=== PATIENT | female | born 1960 | race Caucasian/White ===

== ENCOUNTER 2022-09-11 16:37 | Outpatient (CLI) | payer OTHER, SELFPAY ==
--- NOTE | ~2022-09-11 | MM_ITS ---
EXAMINATION: MM scrn dwain implant BI w mansi HISTORY: Screening mammogram TECHNIQUE: Craniocaudal and mediolateral oblique 3-D tomosynthesis images with implant displacement a nd synthetic 2-D images were generated. Craniocaudal and mediolateral oblique views of the breasts wi thout implant displacement were obtained using full field digital mammography. CAD analysis was submi tted and interpreted. COMPARISON: No prior mammogram is available for comparison at this institution. BREAST PARENCHYMAL COMPOSITION: There are scattered areas of fibroglandular density. FINDINGS: In the right breast there is a circumscribed mass in the lower inner quadrant of the right breast measuring 4 mm, posterior third. In the left breast there are focal asymmetries with associate d clustered indeterminate calcifications in the upper inner quadrant, middle third. IMPRESSION: 1. Bilateral abnormalities described above. Including mass in the lower inner quadrant of the right b reast and asymmetry/calcifications upper inner quadrant of the left breast. 2. Recommend comparison to previous outside mammograms. BI-RADS CATEGORY 0 - INCOMPLETE STUDY, NEED ADDITIONAL IMAGING EVALUATION. Reviewed, dictated and finalized at location A. ERCIAL PEST CONTROL TECHNICIAN IMPRESSION: 1. Bilateral abnormalities described above. Including mass in the lower inner q uadrant of the right breast and asymmetry/calcifications upper inner quadrant o f the left breast. 2. Recommend comparison to previous outside mammograms. BI-RADS CATEGORY 0 - INCOMPLETE STUDY, NEED ADDITIONAL IMAGING EVALUATION.
== END 2022-09-11 16:38 | disposition home or self-care (01) ==
PROVIDERS: Visit Provider Nurse Practitioner Obstetrics & Gynecology
DX: Z12.31 Encounter for screening mammogram for malignant neoplasm of breast (principal); R92.8 Other abnormal and inconclusive findings on diagnostic imaging of breast
CPT/HCPCS: 77063; 77067

== ENCOUNTER 2022-10-13 11:35 | Outpatient (CLI) | payer OTHER, SELFPAY ==
--- NOTE | ~2022-10-13 | MM_ITS ---
EXAMINATION: MM diagnostic dwain BI w mansi HISTORY: Right breast mass and indeterminate left breast calcifications on screening mammogram TECHNIQUE: Additional 3-D tomosynthesis images of the breasts were performed and synthetic 2-D images were generated. CAD analysis was submitted and interpreted. COMPARISON: 09/11/2022, 06/01/2018 FINDINGS: With magnification, left breast calcifications appear to be associated with coil cyst. Spot compression demonstrates a 4 mm mass of the lower inner left breast to be stable when compared to pr ior examinations. There has been no suspicious interval change. IMPRESSION: 1. No mammographic evidence of malignancy. 2. Recommend routine screening mammography in one year. BI-RADS Category 2: Benign finding(s). Reviewed, dictated and finalized at location A. [employer]
== END 2022-10-13 11:36 | disposition home or self-care (01) ==
LOC: ANHIMG 11:36
PROVIDERS: Visit Provider Nurse Practitioner Obstetrics & Gynecology
DX: R92.8 Other abnormal and inconclusive findings on diagnostic imaging of breast (principal)
CPT/HCPCS: 77062; 77066; G0279

== ENCOUNTER 2023-04-16 19:18 | Emergency (ER) | payer OTHER, SELFPAY ==
--- NOTE | ~2023-04-16 | CT_ITS ---
EXAMINATION: CT abdomen pelvis w con DATE: 04/16/2023 20:33 INDICATION: Abdominal bloating. TECHNIQUE: Computed tomography (CT) of the abdomen and pelvis was performed with 100 mL Omnipaque 350 intravenous contrast. Automated exposure control and iterative reconstruction technique were employe d. The dose-length product was 258.56 mGy-cm. COMPARISON: None. FINDINGS: The visualized portions of the lung bases emphysema. No pleural effusion. The heart size is normal. No pericardial effusion. The liver, spleen, gallbladder, pancreas, adrenal glands, and right kidney are normal. There are cysts in left kidney measuring up to 13 mm. There are no dilated loops of bowel. The appendix is normal. There is a large volume of ascites with peritoneal thickening and n odularity. There is a 11.6 cm solid and cystic mass in right ovary. There is wall thickening of the b benedict of the stomach. There is a 2.2 x 1.6 cm right inguinal lymph node. There is mild right external i liac lymphadenopathy. There is moderate lumbar spondylosis and mild thoracic spondylosis. IMPRESSION: 1. Peritoneal carcinomatosis with large volume of ascites. 2. 11.6 cm mass of right ovary, which may be a primary malignancy or less likely metastatic disease. 3. Wall thickening of the body of the stomach, which may be serosal metastatic disease or less likely the primary malignancy. 4. Mild right inguinal and external iliac lymphadenopathy. Reviewed, dictated and finalized at location E. IMPRESSION: 1. Peritoneal carcinomatosis with large volume of ascites. 2. 11.6 cm mass of right ovary, which may be a primary malignancy or less likel y metastatic disease. 3. Wall thickening of the body of the stomach, which may be serosal metastatic disease or less likely the primary malignancy. 4. Mild right inguinal and external iliac lymphadenopathy.
[2023-04-16 19:23] VITALS: BP 138/72; PULSE 78; RESP 18; TEMP 37; O2SAT 98
[2023-04-16] MEDS: SODIUM CHLORIDE 0.9% IV 500 ML 999 ML IV CONT (19:25)
[2023-04-16 19:51] LABS: Basophils Absolute Auto 0.04 K/mm3 (0.00-0.10); Basophils Percent Auto 0.5 % (0.0-1.0); Eosinophils Absolute Auto 0.03 K/mm3 (0.02-0.50); Eosinophils Percent Auto 0.3 % (1.0-6.0); Hematocrit 36.7 % (35.0-49.0); Hemoglobin 11.7 g/dL (12.0-15.0); Immature Granulocyte Absolute 0.02 K/mm3 (0.00-0.00); Immature Granulocyte Percent A 0.2 % (0.0-0.0); Lymphocytes Absolute Auto 1.58 K/mm3 (1.10-4.50); Lymphocytes Percent Auto 18.3 % (18.0-42.0); Mean Corpuscular HGB Conc 31.9 g/dL (32.0-36.0); Mean Corpuscular Volume 87.8 fL (78.0-102.0); Mean Platelet Volume 10.5 fl (9.2-11.8); Monocytes Absolute Auto 0.81 K/mm3 (0.10-0.90); Monocytes Percent Auto 9.4 % (2.0-11.0); Neutrophils Absolute Auto 6.2 K/mm3 (1.7-7.2); Neutrophils Percent Auto 71.3 % (50.0-70.0); Platelet Count Result 440 K/mm3 (150-420); Red Blood Count 4.18 M/mm3 (4.20-5.40); Red Cell Distribution Width 13.7 % (11.6-14.4); White Blood Count 8.6 K/mm3 (4.8-10.8)
[2023-04-16 20:14] LABS: Alanine Aminotransferase 12 U/L (14-59); Albumin Level 2.4 g/dL (3.4-5.0); Alkaline Phosphatase 125 U/L (46-116); Anion Gap 8 mmol/L (8-16); Aspartate Amino Transferase 28 U/L (15-37); Bilirubin,Total 0.5 mg/dL (0.00-1.00); Blood Urea Nitrogen 5 mg/dL (7-18); Calcium 8.4 mg/dL (8.5-10.1); Carbon Dioxide 30 mmol/L (21-32); Chloride 101 mmol/L (98-108); Estimated CRCL calculation 54 ml/min; Estimated Glomerular Filt Rate > 60; Glucose 102 mg/dL (70-99); Osmolality Calculated 285 mOsm/kg (285-295); Potassium 3.7 mmol/L (3.5-5.1); Sodium 139 mmol/L (136-145); Total Protein 6.9 g/dL (6.4-8.2)
[2023-04-16 20:23] LABS: Appearance Urine Clear (Clear); Bilirubin Urine Negative (Negative); Blood Urine Trace-Intact (Negative); Color Urine Light Yellow (Yellow); Glucose Urine UA Negative (Negative); Ketones Urine Negative (Negative); Leukocyte Esterase Ur Negative LEU/UL (Negative); Nitrate Urine Negative (Negative); Protein Urine Negative (Negative); Specific Grav Ur <= 1.005 (1.010-1.020); Urobilinogen Urine 0.2 mg/dL (0.2-1.0)
[2023-04-16 20:28] LABS: Add Urine Microscopic? YES; Bacteria Urine None seen /hpf; RBC Urine 0-2 /hpf (0-2); Squamous Epithelial Cell Urine Occasional /hpf (Few); WBC Urine 0-3 /hpf (0-3)
--- NOTE | 2023-04-16 21:04 | ED.ABDPAIN ---
HPI - Abdominal Pain General Chief Complaint: Abdominal Pain Stated Complaint: abd pain Time Seen by Provider: 04/16/23 19:20 Source: patient Mode of arrival: ambulatory Limitations: no limitations History of Present Illness HPI narrative: this is a 62-year-old female that presents with some abdominal bloating mild nausea with no abdominal pain symptoms have progressed over the last 3 to 4 weeks. The patient has no family history of ovarian cancer, is a smoker with some social alcohol use with no significant past medical history, there is currently no vomiting, has been complaining of loose stools but no diarrhea or constipation no dysuria, no flank pain. MD elicited complaint: other ( abdominal bloating) Pertinent past history: none Onset (ago): week(s) Related Data Home Medications Medication Instructions Recorded Confirmed albuterol sulfate 90 mcg/actuation 2 inh inhalation Q6H PRN 02/04/23 02/04/23 breath activated powder inhaler atorvastatin 20 mg tablet 20 mg PO DAILY 02/04/23 02/04/23 cetirizine 10 mg capsule (Zyrtec) 10 mg PO DAILY PRN 02/04/23 02/04/23 fluticasone propionate 50 1 - 2 spray intranasal BID 02/04/23 02/04/23 mcg/actuation nasal spray,suspension (Flonase Allergy Relief) lactobacillus combination no.9 4 4,000 mmu cells PO DAILY 02/04/23 02/04/23 billion cell capsule (Adult 50 Plus Probiotic) omega 5-fvm-jbm-fish oil 100 cap PO 02/04/23 02/04/23 mg-160 mg-1,000 mg capsule (Fish Oil) Allergies Allergy/AdvReac Type Severity Reaction Status Date / Time ciprofloxacin [From Cipro] AdvReac Hives Verified 04/16/23 19:30 penicillin V [From Pen-Vee K] AdvReac Hives Verified 04/16/23 19:30 Review of Systems Review of Systems: All systems reviewed & are unremarkable except as noted in HPI and below PMFSH Past Medical History Medical History Asthma Hyperlipidemia Family History Family History Sibling Asthma Father Cancer Heart disease Mother Cerebrovascular accident Social History Social History Smoking status: Never smoker Tobacco type: cigarettes Alcohol intake: current Lack of Transportation: No Lack of Food: Never True Current Housing: I Have Housing Concerned About Future Housing: No Difficulty Paying Gas/Electric Bills: No Difficulty Paying for Meds: No Currently Unemployed: No Education: Bachelor's Degree Difficulty w/ Childcare or Family Care: No Exam Const: General: no acute distress Nutritional Appearance: well nourished and thin Limitations: no limitations Eyes: Conjunctivae: conjunctivae normal Neck: Neck: normal visual inspection Chest: Chest palpation & inspection: normal inspection of the chest Resp: Effort & Inspection: normal respiratory effort Auscultation: clear to auscultation bilaterally Cardio: Rate: regular rate Rhythm: regular rhythm GI: GI Palp: Yes Soft to palpation and Yes Guarding due to palpation present (GI) Auscultation: normal bowel sounds : General: Yes bladder normal to palpation Urinary Catheter: Urinary Catheter: patent and draining Skin: General skin exam: normal color Neuro: General: patient oriented x3 and moves all extremities Psych: Mental Status: mental status grossly normal Affect: normal affect Course Course Emergency Course: Labs performed and reviewed with patient, patient had a CT scan and CT scanned reviewed with patient and advise follow-up with Primary/ iuss acoustic analyst soon as possible for further evaluation. Vital Signs Vital signs: Vital Signs Temperature 37.0 C 04/16/23 19:23 Pulse Rate 78 04/16/23 19:23 Respiratory Rate 18 04/16/23 19:23 Blood Pressure 138/72 04/16/23 19:23 Pulse Oximetry 98 04/16/23 19:23 Oxygen Delivery Room Air 04/16/23 19:23 Temperature 37.0 C
[2023-04-16 21:11] VITALS: BP 140/88; PULSE 90; RESP 20; TEMP 36.6; O2SAT 95
== END 2023-04-16 21:18 | disposition home or self-care (01) ==
PROVIDERS: Emergency Provider Emergency Medicine
DX: D39.10 Neoplasm of uncertain behavior of unspecified ovary (principal); R14.0 Abdominal distension (gaseous); E78.5 Hyperlipidemia, unspecified; J45.909 Unspecified asthma, uncomplicated
CPT/HCPCS: 36415; 74177; 80053; 81001; 85025; 96360; 99284; J7040; Q9967

== ENCOUNTER 2023-04-24 15:57 | Emergency (ER) | payer OTHER, SELFPAY ==
[2023-04-24 15:59] VITALS: BP 120/54; PULSE 105; RESP 17; TEMP 36.9; O2SAT 97
[2023-04-24 17:32] LABS: Basophils Absolute Auto 0.1 K/mm3 (0.0-0.1); Basophils Percent Auto 0.9 % (0.2-1.2); Eosinophils Absolute Auto 0.1 K/mm3 (0-0.3); Eosinophils Percent Auto 0.7 % (0-4.4); Hematocrit 39.8 % (37.0-47.0); Hemoglobin 12.5 g/dL (12.0-15.0); Immature Granulocyte Absolute 0.03 K/mm3 (0.00-0.031); Immature Granulocyte Percent A 0.3 % (0-0.5); Lymphocytes Absolute Auto 1.83 K/mm3 (0.9-3.2); Lymphocytes Percent Auto 20.8 % (18.3-44.2); Mean Corpuscular HGB Conc 31.4 g/dl (32-36); Mean Corpuscular Hemoglobin 27.1 pg (26-34); Mean Corpuscular Volume 86.1 fl (80-100); Mean Platelet Volume 10.4 fl (7.4-10.4); Monocytes Absolute Auto 0.6 K/mm3 (0.1-0.6); Monocytes Percent Auto 6.6 % (2.6-8.5); Neutrophils Absolute Auto 6.2 K/mm3 (1.3-6.7); Neutrophils Percent Auto 70.7 % (45.5-73.1); Platelet Count Result 563 k/mm3 (150-375); Red Blood Count 4.62 M/mm3 (4.2-5.4); Red Cell Distribution Width 13.7 % (11.5-14.5); White Blood Count 8.8 K/mm3 (4.5-10.0)
[2023-04-24 17:43] LABS: INR 1.1; Prothrombin Time 14.1 Seconds (11.1-14.7)
[2023-04-24 17:44] LABS: Partial Thromboplastin Time 33.5 SECONDS (22.3-36.8)
[2023-04-24 17:44] LABS: Alanine Aminotransferase 18 U/L (6-35); Albumin Level 3.8 g/dL (3.5-5.1); Alkaline Phosphatase 115 U/L (38-126); Anion Gap 3 mmol/L (8-16); Aspartate Amino Transferase 43 U/L (14-36); Bilirubin,Total 0.5 mg/dL (0.2-1.3); Blood Urea Nitrogen 4 mg/dL (7-17); Calcium 8.6 mg/dL (8.4-10.2); Carbon Dioxide 35 mmol/L (22-30); Chloride 97 mmol/L (98-107); Estimated CRCL calculation 68 ml/min; Estimated Glomerular Filt Rate > 60; Glucose 101 mg/dL (65-110); Lipase 156 U/L (23-300); Potassium 3.9 mmol/L (3.4-5.0); Sodium 135 mmol/L (137-145)
--- NOTE | 2023-04-24 18:50 | ED.GENADULT ---
HPI - General Adult General Chief complaint: Unspecified Stated complaint: ascites Time Seen by Provider: 04/24/23 18:07 Source: patient, RN notes reviewed and old records reviewed Mode of arrival: ambulatory Limitations: no limitations History of Present Illness HPI narrative: This is a 62 year old female who presents for evaluation of ascites. PAtient reports 2 weeks ago she developed abdominal bloating and distension. She was evaluated in ER on 04/16/23 and she was found to have large amount of abdominal ascites with right ovarian mass. She had a follow up appointment with DR. Emma escobar in his clinic. She was sent to ER to get paracentesis by radiology. Patient denies abdominal pain, fever, vomiting. She states she does feels uncomfortable sometimes due to abdominal distension. Related Data Home Medications Medication Instructions Recorded Confirmed albuterol sulfate 90 mcg/actuation 2 inh inhalation Q6H PRN 02/04/23 02/04/23 breath activated powder inhaler atorvastatin 20 mg tablet 20 mg PO DAILY 02/04/23 02/04/23 cetirizine 10 mg capsule (Zyrtec) 10 mg PO DAILY PRN 02/04/23 02/04/23 fluticasone propionate 50 1 - 2 spray intranasal BID 02/04/23 02/04/23 mcg/actuation nasal spray,suspension (Flonase Allergy Relief) lactobacillus combination no.9 4 4,000 mmu cells PO DAILY 02/04/23 02/04/23 billion cell capsule (Adult 50 Plus Probiotic) omega 7-htp-yan-fish oil 100 cap PO 02/04/23 02/04/23 mg-160 mg-1,000 mg capsule (Fish Oil) Allergies Allergy/AdvReac Type Severity Reaction Status Date / Time ciprofloxacin [From Cipro] AdvReac Hives Verified 04/16/23 19:30 penicillin V [From Pen-Vee K] AdvReac Hives Verified 04/16/23 19:30 Review of Systems Review of Systems: All systems reviewed & are unremarkable except as noted in HPI and below PMFSH Past Medical History Medical History (Updated 04/24/23 @ 18:59 by Navya Jones MD) Abdominal ascites Asthma Hyperlipidemia Ovarian mass Family History Family History Sibling Asthma Father Cancer Heart disease Mother Cerebrovascular accident Social History Social History Smoking status: Never smoker Tobacco type: cigarettes Alcohol intake: current Lack of Transportation: No Lack of Food: Never True Current Housing: I Have Housing Concerned About Future Housing: No Difficulty Paying Gas/Electric Bills: No Difficulty Paying for Meds: No Currently Unemployed: No Education: Bachelor's Degree Difficulty w/ Childcare or Family Care: No Exam Const: General: cooperative, comfortable, no acute distress and alert Orientation/consciousness: patient oriented x3 Limitations: no limitations HENMT: Head: normal to inspection Face and sinus: normal facial exam Eyes: General: appearance normal, both eyes and all related structures EOM: EOMs intact bilaterally Resp: Effort & Inspection: normal respiratory effort Auscultation: clear to auscultation bilaterally Cardio: Jugular venous distension: no JVD Rate: regular rate Rhythm: regular rhythm GI: GI Palp: Yes Soft to palpation, No Firmness to palpation present (GI), No Tenderness to palpation present (GI), No Guarding due to palpation present (GI) and Yes Ascites present (not tense) Auscultation: normal bowel sounds Back/Spine/Pelvis: Back: no CVA tenderness Skin: General skin exam: normal color Neuro: General: patient oriented x3 Cranial nerves: Yes CN's II-XII intact bilaterally Motor exam (neuro): 5/5 motor strength present throughout Psych: Appearance: grossly normal Mental Status: mental status grossly normal Speech and movement: Normal speech and movement present Course Reevaluation(s) Reevaluation #1: I called radiology and there is no radiologist on site to do paracentesis today. I offered to admit patient over night to get parac
== END 2023-04-24 19:11 | disposition home or self-care (01) ==
PROVIDERS: Emergency Provider General Practice
DX: C80.1 Malignant (primary) neoplasm, unspecified (principal); R18.0 Malignant ascites; N83.9 Noninflammatory disorder of ovary, fallopian tube and broad ligament, unspecified; Z79.51 Long term (current) use of inhaled steroids; J45.909 Unspecified asthma, uncomplicated; E78.5 Hyperlipidemia, unspecified
CPT/HCPCS: 36415; 80053; 83690; 85025; 85610; 85730; 99283

== ENCOUNTER 2023-04-29 09:53 | Outpatient (CLI) | payer OTHER, SELFPAY ==
--- NOTE | ~2023-04-29 | US_ITS ---
EXAMINATION: US paracentesis abd w/image DATE: 04/29/2023 11:08 INDICATION: Malignant ascites TECHNIQUE: The procedure and its risks and benefits were discussed with the patient. Potential risks discussed included bleeding and infection. The skin was prepped and draped in sterile fashion. 1% lid ocaine was used for local anesthesia. Under ultrasound guidance, a 5 Fr catheter with trochar was adv anced into the ascites in the right lower quadrant. Fluid was aspirated into vacuum bottles. The cath eter was removed, and a dressing was applied. There were no immediate complications. FINDINGS: Ultrasound images demonstrate ascites and the catheter within the fluid. IMPRESSION: 1. Successful ultrasound-guided paracentesis yielding 2425 mL of yellow fluid. Reviewed, dictated and finalized at location A.
[2023-04-29 11:54] LABS: Basophils Absolute Auto 0.1 K/mm3 (0.0-0.1); Basophils Percent Auto 0.7 % (0.2-1.2); Eosinophils Percent Auto 0.4 % (0-4.4); Hematocrit 37.4 % (37.0-47.0); Immature Granulocyte Absolute 0.03 K/mm3 (0.00-0.031); Immature Granulocyte Percent A 0.3 % (0-0.5); Lymphocytes Absolute Auto 1.63 K/mm3 (0.9-3.2); Lymphocytes Percent Auto 18.3 % (18.3-44.2); Mean Corpuscular HGB Conc 32.1 g/dl (32-36); Mean Corpuscular Hemoglobin 27.3 pg (26-34); Mean Platelet Volume 10.4 fl (7.4-10.4); Monocytes Absolute Auto 0.5 K/mm3 (0.1-0.6); Monocytes Percent Auto 6.1 % (2.6-8.5); Neutrophils Absolute Auto 6.6 K/mm3 (1.3-6.7); Neutrophils Percent Auto 74.2 % (45.5-73.1); Platelet Count Result 567 k/mm3 (150-375); Red Cell Distribution Width 13.6 % (11.5-14.5); White Blood Count 8.9 K/mm3 (4.5-10.0)
[2023-04-29 12:10] LABS: Alanine Aminotransferase 16 U/L (6-35); Albumin Level 3.6 g/dL (3.5-5.1); Alkaline Phosphatase 115 U/L (38-126); Anion Gap 4 mmol/L (8-16); Aspartate Amino Transferase 39 U/L (14-36); Bilirubin,Total 0.6 mg/dL (0.2-1.3); Blood Urea Nitrogen 4 mg/dL (7-17); Calcium 8.2 mg/dL (8.4-10.2); Carbon Dioxide 32 mmol/L (22-30); Chloride 98 mmol/L (98-107); Estimated Glomerular Filt Rate > 60; Glucose 87 mg/dL (65-110); Potassium 3.8 mmol/L (3.4-5.0); Sodium 134 mmol/L (137-145)
[2023-05-02 01:37] LABS: CA-125 751 U/mL (<35)
[2023-05-03 05:58] LABS: Glucose Peritoneal Fluid 83 mg/dL; LDH Peritoneal Fluid 1562 U/L (<63); Total Protein Peritoneal Fluid 4.9 g/dL
== END 2023-04-29 09:54 | disposition home or self-care (01) ==
PROVIDERS: Visit Provider Internal Medicine Hematology & Oncology
DX: C56.9 Malignant neoplasm of unspecified ovary (principal); R18.0 Malignant ascites
CPT/HCPCS: 36415; 49083; 80053; 82945; 83615; 84157; 85025; 86304; 88104; 88108; 88305; 88342

== ENCOUNTER 2023-05-01 10:46 | Outpatient (CLI) | payer OTHER, SELFPAY ==
--- NOTE | ~2023-05-01 | CT_ITS ---
Clinical Indication: Ovarian malignancy CT Scan of the Chest with Contrast: Technique: Contiguous sections were acquired throughout the chest after intravenous administration of 75 cc of Omnipaque 350. Dose reduction technique was used on this scan by utilizing automated exposu re control and iterative reconstruction technique. The dose-length product (DLP) was 129.98 mGy-cm. Findings: There is no evidence of any significant mediastinal, hilar or axillary lymphadenopathy. There is no f illing defect in the pulmonary arterial tree to suggest pulmonary embolus. There is no evidence of ao rtic dissection or aneurysm. There is no evidence of pleural or pericardial effusion. The lungs are clear. No pulmonary nodules or infiltrates are noted. Moderate emphysema noted. Images through the upper abdomen reveal ascites and probable peritoneal carcinomatosis. There is diff use fatty infiltration of the liver. Impression: No evidence of metastatic disease in the chest. Ascites and peritoneal carcinomatosis seen in the upper abdomen. Please refer to recent CT dated 2022 for further details. Moderate emphysema. Diffuse fatty infiltration of liver. Reviewed, dictated and finalized at location M. Impression: No evidence of metastatic disease in the chest. Ascites and peritoneal carcinomatosis seen in the upper abdomen. Please refer t o recent CT dated 04/16/2023 for further details. Moderate emphysema. Diffuse fatty infiltration of liver.
== END 2023-05-01 10:47 | disposition home or self-care (01) ==
PROVIDERS: Visit Provider Internal Medicine Hematology & Oncology
DX: C56.9 Malignant neoplasm of unspecified ovary (principal); J43.9 Emphysema, unspecified
CPT/HCPCS: 71260; Q9967

== ENCOUNTER 2023-05-06 08:58 | Outpatient (CLI) | payer OTHER, SELFPAY ==
--- NOTE | ~2023-05-06 | US_ITS ---
EXAMINATION: US biopsy lymph node DATE: 05/06/2023 10:10 INDICATION: Right inguinal lymphadenopathy TECHNIQUE: The procedure including the risks and benefits was discussed with the patient. Risks discu ssed included bleeding and infection. The patient understood the risks and agreed to proceed. The sk in overlying the right inguinal region was prepped and draped in usual sterile fashion. Anesthetic w as administered with 1% lidocaine subcutaneously. An 14 gauge core biopsy needle was advanced under continuous ultrasound observation to the lesion of interest. 2 core biopsy specimens were obtained. The needle was removed and the entry site was cleaned and dressed. Post procedure ultrasound demons trated no hemorrhage. FINDINGS: Ultrasound images demonstrate the biopsy needle advanced into a 2.6 x 1.7 x 1.5 cm hypoecho ic lymph node at the region of concern.. IMPRESSION: 1. Successful Ultrasound-guided biopsy of the 2.6 cm right inguinal lymph node of concern. Reviewed, dictated and finalized at location A.
== END 2023-05-06 08:59 | disposition home or self-care (01) ==
PROVIDERS: Visit Provider Internal Medicine Hematology & Oncology
DX: R59.1 Generalized enlarged lymph nodes (principal)
CPT/HCPCS: 38505; 76942; 88305; 88342

== ENCOUNTER 2023-05-19 09:06 | Outpatient (CLI) | payer OTHER, SELFPAY ==
--- NOTE | ~2023-05-19 | US_ITS ---
EXAMINATION: US paracentesis abd w/image DATE: 05/19/2023 10:00 INDICATION: Ascites. Malignant neoplasm of ovary. TECHNIQUE: The procedure and its risks, benefits, and alternatives were discussed with the patient. P otential risks discussed included bleeding and infection. The skin was prepped and draped in sterile fashion. 1% lidocaine was used for local anesthesia. Under ultrasound guidance, a 5 Fr catheter with trochar was advanced into the ascites in the right lower quadrant. Fluid was aspirated. The catheter was removed, and a dressing was applied. There were no immediate complications. FINDINGS: Ultrasound images demonstrate ascites and the catheter within the fluid. IMPRESSION: 1. Successful ultrasound-guided paracentesis yielding 3,400 mL of cloudy, yellow fluid. Reviewed, dictated and finalized at location A. IMPRESSION: 1. Successful ultrasound-guided paracentesis yielding 3,400 mL of cloudy, yell ow fluid.
== END 2023-05-19 09:07 | disposition home or self-care (01) ==
LOC: ANHIMG 09:07
DX: C56.9 Malignant neoplasm of unspecified ovary (principal); R18.0 Malignant ascites
CPT/HCPCS: 49083

== ENCOUNTER 2023-07-21 08:00 | Outpatient (CLI) | payer OTHER, SELFPAY ==
--- NOTE | ~2023-07-21 | CT_ITS ---
Clinical Indication: Ovarian cancer CT Scan of the Chest, Abdomen, and Pelvis with Contrast: Technique: Contiguous sections were acquired throughout the chest, abdomen, and pelvis after intraven ous administration of 100 cc of Omnipaque 350. Dose reduction technique was used on this scan by uti gloing automated exposure control and iterative reconstruction technique. The dose-length product (DL P) was 306.85 mGy-cm. COMPARISON: 04/16/2023, 05/01/2023 Findings: There is no evidence of any significant mediastinal, hilar or axillary lymphadenopathy. The mediastin al soft tissues and vascular structures appear normal. There is no evidence of pleural or pericardial effusion. The lungs are clear. No pulmonary nodules or infiltrates are noted. Moderate emphysema noted. The liver, spleen, pancreas, gallbladder, adrenals and kidneys are within normal limits. There are at herosclerotic calcifications of the aorta. No lymphadenopathy. No bowel obstructive. Wall thickening of the stomach is similar to prior exam. There is peritoneal ca rcinomatosis, predominantly in the left upper quadrant, which appears to be improved as compared to p rior exam.. Urinary bladder is unremarkable. There is a somewhat ill-defined heterogeneous, mixed solid and cysti c pelvic mass, which appears to be significantly decreased in extent from prior exam, measuring up to approximately 6.5 x 5.4 cm (axial image 212). There is probable loculated pelvic fluid in the pelvic cul-de-sac Impression: Partial interval response to therapy. Peritoneal carcinomatosis is significantly improved. Heterogene ous, somewhat ill-defined right pelvic mass, mixed solid and cystic, is also significantly decreased in size, as detailed above. Stable wall thickening of the stomach, nonspecific. Metastatic disease is a consideration. Probable loculated fluid in the pelvic cul-de-sac. No evidence of metastatic disease in the thorax. Moderate emphysema. Reviewed, dictated and finalized at location M. RVISOR SPECIAL EFFECTS Impression: Partial interval response to therapy. Peritoneal carcinomatosis is significantl y improved. Heterogeneous, somewhat ill-defined right pelvic mass, mixed solid and cystic, is also significantly decreased in size, as detailed above. Stable wall thickening of the stomach, nonspecific. Metastatic disease is a con sideration. Probable loculated fluid in the pelvic cul-de-sac. No evidence of metastatic disease in the thorax. Moderate emphysema.
[2023-07-21 08:31] LABS: Estimated Glomerular Filt Rate > 60
== END 2023-07-21 08:01 ==
LOC: GOSHIMG 08:01
PROVIDERS: PCP Emergency Medicine
DX: C56.9 Malignant neoplasm of unspecified ovary (principal)
CPT/HCPCS: 71260; 74177; Q9967

== ENCOUNTER 2023-08-20 09:15 | Outpatient (CLI) | payer OTHER, SELFPAY ==
[2023-08-20 09:41] LABS: Alanine Aminotransferase 53 U/L (6-35); Alkaline Phosphatase 84 U/L (38-126); Anion Gap 11 mmol/L (8-16); Aspartate Amino Transferase 57 U/L (14-36); Bilirubin,Total 0.4 mg/dL (0.2-1.3); Blood Urea Nitrogen 9 mg/dL (7-17); Calcium 9.3 mg/dL (8.4-10.2); Carbon Dioxide 27 mmol/L (22-30); Chloride 102 mmol/L (98-107); Cholesterol 158 mg/dL (0-200); Estimated Glomerular Filt Rate > 60; Glucose 100 mg/dL (65-110); HDL Direct 41 mg/dL; Potassium 3.5 mmol/L (3.4-5.0); Sodium 140 mmol/L (137-145); Triglycerides 191 mg/dL (<150)
[2023-08-20 09:51] LABS: LDL Cholesterol Direct 76 mg/dL
[2023-08-20 10:18] LABS: Vitamin D 25 Hydroxy 48.2 ng/mL
== END 2023-08-20 09:16 | disposition home or self-care (01) ==
LOC: ANHLAB 09:17
PROVIDERS: PCP Emergency Medicine; Visit Provider Emergency Medicine
DX: E78.5 Hyperlipidemia, unspecified (principal); E55.9 Vitamin D deficiency, unspecified
CPT/HCPCS: 36415; 80053; 80061; 82306

== ENCOUNTER 2023-11-14 07:48 | Outpatient (CLI) | payer OTHER, SELFPAY ==
[2023-11-14 08:41] LABS: Alanine Aminotransferase 29 U/L (6-35); Albumin Level 4.6 g/dL (3.5-5.1); Alkaline Phosphatase 89 U/L (38-126); Anion Gap 6 mmol/L (4-12); Aspartate Amino Transferase 31 U/L (14-36); Bilirubin,Total 0.7 mg/dL (0.2-1.3); Blood Urea Nitrogen 13 mg/dL (7-17); Calcium 9.9 mg/dL (8.4-10.2); Carbon Dioxide 29 mmol/L (22-30); Chloride 105 mmol/L (98-107); Cholesterol 186 mg/dL (0-200); Estimated Glomerular Filt Rate > 60; Glucose 106 mg/dL (65-110); HDL Direct 59 mg/dL; Potassium 4.2 mmol/L (3.4-5.0); Sodium 140 mmol/L (137-145); Triglycerides 139 mg/dL (<150)
[2023-11-14 08:52] LABS: LDL Cholesterol Direct 93 mg/dL
[2023-11-14 09:22] LABS: Vitamin D 25 Hydroxy 44.9 ng/mL
== END 2023-11-14 07:49 | disposition home or self-care (01) ==
LOC: ANHLAB 07:49
PROVIDERS: PCP Emergency Medicine; Visit Provider Emergency Medicine
DX: E78.5 Hyperlipidemia, unspecified (principal); E55.9 Vitamin D deficiency, unspecified
CPT/HCPCS: 36415; 80053; 80061; 82306

== ENCOUNTER 2024-03-19 08:12 | Outpatient (CLI) | payer OTHER, SELFPAY ==
[2024-03-19 08:50] LABS: Alanine Aminotransferase 25 U/L (6-35); Albumin Level 4.4 g/dL (3.5-5.1); Alkaline Phosphatase 63 U/L (38-126); Anion Gap 9 mmol/L (4-12); Aspartate Amino Transferase 28 U/L (14-36); Bilirubin,Total 0.9 mg/dL (0.2-1.3); Blood Urea Nitrogen 10 mg/dL (7-17); Calcium 9.2 mg/dL (8.4-10.2); Carbon Dioxide 28 mmol/L (22-30); Chloride 100 mmol/L (98-107); Cholesterol 127 mg/dL (0-200); Estimated Glomerular Filt Rate 56; Glucose 104 mg/dL (65-110); HDL Direct 56 mg/dL; Potassium 4.3 mmol/L (3.4-5.0); Sodium 137 mmol/L (137-145); Triglycerides 103 mg/dL (<150)
[2024-03-19 09:01] LABS: LDL Cholesterol Direct 49 mg/dL
== END 2024-03-19 08:13 | disposition home or self-care (01) ==
LOC: ANHLAB 08:14
PROVIDERS: PCP Emergency Medicine; Visit Provider Emergency Medicine
DX: E78.5 Hyperlipidemia, unspecified (principal); E55.9 Vitamin D deficiency, unspecified
CPT/HCPCS: 36415; 80053; 80061; 82306

== ENCOUNTER 2024-03-30 08:15 | Outpatient (CLI) | payer OTHER, SELFPAY ==
--- NOTE | ~2024-03-30 | MM_ITS ---
EXAMINATION: MM screening dwain BI w mansi HISTORY: Screening TECHNIQUE: Craniocaudal and mediolateral oblique 3-D tomosynthesis images were obtained and synthetic 2-D images were generated. CAD analysis was submitted and interpreted. COMPARISON: Comparison to multiple prior studies sequentially, with oldest reviewed study dated 05/11. BREAST PARENCHYMAL COMPOSITION: Dense: The breasts are heterogeneously dense, which may obscure small masses FINDINGS: There is no evidence of suspicious mass, calcification, or architectural distortion to sugg est malignancy in either breast. There has been no suspicious interval change. IMPRESSION: 1. No mammographic evidence of malignancy. 2. Recommend routine screening mammography in one year. BI-RADS Category 1: Negative Reviewed, dictated and finalized at location B.
== END 2024-03-30 08:16 | disposition home or self-care (01) ==
LOC: ANHIMG 08:16
PROVIDERS: PCP Emergency Medicine; Visit Provider Emergency Medicine
DX: Z12.31 Encounter for screening mammogram for malignant neoplasm of breast (principal)
CPT/HCPCS: 77063; 77067

== ENCOUNTER 2024-07-23 08:43 | Outpatient (CLI) | payer OTHER, SELFPAY ==
[2024-07-23 09:29] LABS: Alanine Aminotransferase 31 U/L (6-35); Albumin Level 4.3 g/dL (3.5-5.1); Alkaline Phosphatase 76 U/L (38-126); Anion Gap 3 mmol/L (4-12); Aspartate Amino Transferase 33 U/L (14-36); Bilirubin,Total 0.9 mg/dL (0.2-1.3); Blood Urea Nitrogen 12 mg/dL (7-17); Calcium 9.4 mg/dL (8.4-10.2); Carbon Dioxide 30 mmol/L (22-30); Chloride 105 mmol/L (98-107); Cholesterol 156 mg/dL (0-200); Estimated Glomerular Filt Rate 56; Glucose 102 mg/dL (65-110); HDL Direct 51 mg/dL; Potassium 4.1 mmol/L (3.4-5.0); Sodium 138 mmol/L (137-145); Triglycerides 127 mg/dL (<150)
[2024-07-23 09:40] LABS: LDL Cholesterol Direct 70 mg/dL
[2024-07-23 09:48] LABS: Vitamin D 25 Hydroxy 31.6 ng/mL
--- OUTSIDE RECORDS SUMMARY | 2024-07-26 23:40 | XMS_ITS | Referral Summary ---
Author Organization [address] Address [address] [place] [address] Care Team Providers Care Journey Lineman Name Role Phone Miscellaneous, Not In File Primary Care Provider Unavailable Encounters Date Type Department Care Team Description 05/30/2024 4:45 PM CDT Office Visit [facility] [place] [address] [address] Gail Maradiaga NP Acute maxillary sinusitis, recurrence not specified (Primary Dx) from Last 3 Months Allergies Active Allergy Reactions Criticality Noted Date Comments Ciprofloxacin Rash Medium 04/24/2023 Penicillins Rash Medium 04/19/2021 Medications atorvastatin (LIPITOR) 20 mg tablet 1 Active albuterol HFA (PROVENTIL HFA,VENTOLIN HFA,PROAIR HFA) 90 mcg/actuation inhaler 1 Active fluconazole (DIFLUCAN) 150 mg tabletIndicatio ns:Acute non-recurrent maxillary sinusitis Take 1 tablet (150 mg total) by mouth as directed Take one tab now. Repeat in 7 days if symptoms persist. 2 tablet 1 Active Additional Information Patient not taking.Reported on 05/30/2024 senna-docusate (PERICOLACE) 8.6-50 mg Take by mouth Active prochlorperazin e (COMPAZINE) 10 mg tablet Take 1 tablet (10 mg total) by mouth every 6 (six) hours as needed 3 Active ondansetron (ZOFRAN) 8 mg tablet Take 1 tablet (8 mg total) by mouth every 8 (eight) hours as needed 3 Active omega-3 fatty acids-fish oil 300-1,000 mg capsule Take 2 capsules (2 g total) by mouth daily Active olaparib (LYNPARZA) 100 mg tablet Take 1 tablet (100 mg) by mouth 2 (two) times a day. Active olaparib (LYNPARZA) 150 mg tablet Take 1 tablet (150 mg) by mouth 2 (two) times a day. Active losartan (COZAAR) 50 mg tablet Take 1 tablet (50 mg total) by mouth daily 4 Active loratadine (CLARITIN) 10 mg tablet Take 1 tablet (10 mg total) by mouth daily Active lidocaine-prilo luciano cream APPLY A THIN LAYER OVER PORT SITE 30-45 MINUTES PRIOR TO CHEMOTHERAPY. 4 Active fluticasone propionate (FLONASE) 50 mcg/actuation nasal spray Administer 2 sprays into affected nostril(s) daily Active Wixela Inhub 250-50 mcg/dose diskus inhaler USE 1 INHALATION ORALLY TWICE DAILY Active cholecalciferol , vitamin D3, 14,000 unit wafer Take by mouth Active pyridoxine (VITAMIN B6) 25 mg tablet Take 1 tablet (25 mg total) by mouth daily Active magnesium gluconate 200 mg tabletIndicatio ns:hypomagnesem ia 1 tablet (200 mg total) Active bevacizumab (AVASTIN) 25 mg/mL injection Acti ve azithromycin (ZITHROMAX) 250 mg tabletIndicatio ns:Acute maxillary sinusitis, recurrence not specified Take two tabs first day, then one tab daily x 4 days 6 tablet 4 Active Active Problems No known active problems Social History Tobacco Use Types Packs/Day Years Used Date Smoking Tobacco: Every Day Smokeless Tobacco: Never Personal Safety Answer Date Recorded Getting School Help Needed Not on file 10/10 Comments Unknown Sex and Gender Information Value Date Recorded Sex Assigned at Not on file Legal Sex Female 8:24 AM CDT Gender Identity Not on file Sexual Orientation Not on file Last Filed Vital Signs Vital Sign Reading Time Taken Comments Blood Pressure 144/86 05/30/2024 4:45 PM CDT Pulse 96 05/30/2024 4:45 PM CDT Temperature 36.7 ??C (98 ??F) 05/30/2024 4:45 PM CDT Respiratory Rate 16 05/30/2024 4:45 PM CDT Oxygen Saturation 99% 05/30/2024 4:45 PM CDT Inhaled Oxygen Concentration - - Weight 50.8 kg (112 lb) 05/30/2024 4:45 PM CDT Height 167.6 cm (5' 6 ) 05/30/2024 4:45 PM CDT Body Mass Index 18.08 05/30/2024 4:45 PM CDT Plan of Treatment Not on file Insurance HMO HMO Care Teams Journey Lineman Relationship Specialty Start Date End Date Miscellaneous, Not In File PCP - General 04/19/21
--- OUTSIDE RECORDS SUMMARY | 2024-07-26 23:40 | XMS_ITS | Encounter Summary ---
Author Organization [facility] Address [address] [facility] [address] [place] [id number] Care Team Providers Care Wool Grader Name Role Phone Miscellaneous, Not In File Primary Care Provider Unavailable Reason for Visit * Reason Comments Eye Problem Right eye irritation noticed it yesterday moring. Doesnt remember getting anything in it. Encounter Details Date Type Department Care Team (Late st Contact Info) Description 04/19/2021 8:15 AM CDT Office Visit [facility] [address] [place] [id number] Amie Ruiz, CHELY [address] [address] Acute non-recurrent maxillary sinusitis (Primary Dx); Irritation of right eye Social History Tobacco Use Types Packs/Day Years Used Date Smoking Tobacco: Every Day Comments Unknown Sex and Gender Information Value Date Recorded Sex Assigned at Not on file Legal Sex Female 8:24 AM CDT Gender Identity Not on file Sexual Orientation Not on file documented as of this encounter Last Filed Vital Signs Vital Sign Reading Time Taken Comments Blood Pressure 140/78 04/19/2021 8:36 AM CDT Pulse 104 04/19/2021 8:36 AM CDT Temperature 36.4 ??C (97.5 ??F) 04/19/2021 8:36 AM CD T Respiratory Rate 16 04/19/2021 8:36 AM CDT Oxygen Saturation 97% 04/19/2021 8:36 AM CDT Inhaled Oxygen Concentration - - Weight 64.6 kg (142 lb 6.4 oz) 04/19/2021 8:36 A M CDT Height 167.6 cm (5' 6 ) 04/19/2021 8:36 AM CDT Body Mass Index 22.98 04/19/2021 8:36 AM CDT documented in this encounter Patient Instructions * Patient Instructions* Amie Ruiz NP - 04/19/2021 8:15 AM CDT Complete your antibiotics. Take an otc decongestant for congestion. Motrin or Tylenol for fever or pain. An antihistamine such as Claritin, zyrtec or benadryl can be used for runny nose. Benadryl is more sedating. Drink plenty of fluids and get plenty of rest. Follow up with PMD in 3-5 days if you are not getting any better. A humidifier may also help with decongestion. To help with your itchy watery eyes and nasal drainage, you will need to take an otc antihistamine such as Benadryl, Claritin or zyrtec. Use otc Pataday for right eye irritation. If no improvement, follow up with onion farmer. documented in this encounter Ordered Prescriptions Prescription Sig Dispense Quantity Refills Last Filled Start Date End Date fluconazole (DIFLUCAN) 150 mg tabletIndications: Acute non-recurrent maxillary sinusitis Take 1 tablet (150 mg total) by mouth as directed Take one tab now. Repeat in 7 days if symptoms persist. 2 tablet 04/19/2021 amoxicillin-clavul anate (AUGMENTIN) 875-125 mg per tabletIndications: Acute non-recurrent maxillary sinusitis Take 1 tablet by mouth 2 (two) times a day for 10 days 20 tablet 04/19/2021 documented in this encounter Progress Notes * Amie Ruiz NP - 04/19/2021 8:15 AM CDT Images from the original note were not included. Subjective/Objective Patient ID: November Tiarra is a 60 y.o. female. Chief Complaint Eye Problem (Right eye irritation noticed it yesterday moring. Doesnt remember getting anything in it.) Eye Problem The right eye is affected. This is a new problem. The current episode started yesterday. The problem occurs constantly. The problem has been waxing and waning. The injury mechanism was contact lenses. The pain is at a severity of 1/10. The pain is mild. There is no known exposure to pink eye. She wears contacts. Associated symptoms include an eye discharge (mucous), eye redness, a foreign body sensation, itching, photophobia and a recent URI. Pertinent negatives include no blurred vision, double vision, fever, nausea, vomiting or weakness. Treatments tried: irrigated with saline solution yesterday. The treatment provided no relief. Review of Systems Constitutional: Negative for appetite change, chills, fatigue and fever. HENT: Positive for postnasal drip, rhinorrhea, sinus pressure and sinus pain. Negative for congestion, ear pain, sore throat and trouble swallowing. Eyes: Positive for photophobia, discharge (mucous), redness and itching. Negative for blurred vision, double vision and pain. Respiratory: Negative for chest tightness, shortness of breath and wheezing. Cardiovascular: Negative for chest pain and leg swelling. Gastrointestinal: Negative for abdominal pain, constipation, diarrhea, nausea and vomiting. Genitourinary: Negative for difficulty urinating, dysuria, frequency and urgency. Musculoskeletal: Negative for back pain and neck pain. Skin: Negative for rash and wound. Allergic/Immunologic: Negative for environmental allergies and food allergies. Neurological: Negative for dizziness, weakness and headaches. Physical Exam Vitals and nursing note reviewed. Constitutional: General: She is awake. Appearance: Normal appearance. She is well-developed, well-groomed and normal weight. HENT: Head: Normocephalic and atraumatic. Right Ear: External ear normal. A middle ear effusion is present. Left Ear: External ear normal. A middle ear effusion is present. Nose: Congestion and rhinorrhea present. Right Sinus: Maxillary sinus tenderness present. Mouth/Throat: Lips: [place]. Mouth: Mucous membranes are moist. Pharynx: Oropharynx is clear. Eyes: General: Lids are normal. Right eye: No foreign body or discharge. Extraocular Movements: Extraocular movements intact. Conjunctiva/sclera: Right eye: Right conjunctiva is injected. Pupils: Pupils are equal, round, and reactive to light. Comments: Visual Acuity in Right Eye - Without correction: With correction: 20/30 Visual Acuity in Left Eye - Without correction: With correction: 20/20 Visual Acuity in Both Eyes - Without correction: With correction: 20/20 Fernandez lamp exam-- _right eye: eye flushed with eyestream. 2 drops proparacaine instilled, fluorescene strip applied. No corneal abrasion or visible FB. No pupillary defect. Pt reports some relief of irritation with proparacaine. Cobblestoning of right conjunctiva noted. No redness of sclera. Cardiovascular: Rate and Rhythm: Normal rate and regular rhythm. Pulmonary: Effort: Pulmonary effort is normal. Breath sounds: Normal breath sounds. No wheezing. Abdominal: General: Bowel sounds are normal. Palpations: Abdomen is soft. Musculoskeletal: General: Normal range of motion. Cervical back: Normal range of motion and neck supple. Skin: General: Skin is warm and dry. Capillary Refill: Capillary refill takes less than 2 seconds. Neurological: Mental Status: She is alert and oriented to person, place, and time. Psychiatric: Behavior: Behavior normal. Behavior is cooperative. BP 140/78 (BP Location: Left arm, Patient Position: Sitting) Pulse 104 Temp 36.4 ??C (97.5 ??F)(Temporal) Resp 16 Ht 167.6 cm (5' 6 ) Wt 64.6 kg (142 lb 6.4 oz) SpO2 97% BMI 22.98 kg/m?? Assessment/Plan Diagnoses and all orders for this visit: Acute non-recurrent maxillary sinusitis (Primary) - amoxicillin-clavulanate (AUGMENTIN) 875-125 mg per tablet; Take 1 tablet by mouth 2 (two) times aday for 10 days - fluconazole (DIFLUCAN) 150 mg tablet; Take 1 tablet (150 mg total) by mouth as directed Take one tab now. Repeat in 7 days if symptoms persist. Irritation of right eye Complete your antibiotics. Take an otc decongestant for congestion. Motrin or Tylenol for fever or pain. An antihistamine such as Claritin, zyrtec or benadryl can be used for runny nose. Benadryl is more sedating. Drink plenty of fluids and get plenty of rest. Follow up with PMD in 3-5 days if you are not getting any better. A humidifier may also help with decongestion. To help with your itchy watery eyes and nasal drainage, you will need to take an otc antihistamine such as Benadryl, Claritin or zyrtec. Use otc Pataday for right eye irritation. If no improvement, follow up with onion farmer. Disposition- Discussed medications dosages, usage & potential side effects. Risks and interactions reviewed with patient. Indications for testing reviewed. Patient has been instructed to follow up w PCP or go to ER for any signs or symptoms that are of concern or worsening. Patient verbalizes understanding. The patient was given the opportunity to ask all questions and to have all questions answered. Patient is in agreement with the plan of care. Amie Ruiz NP documented in this encounter Plan of Treatment Not on file documented as of this encounter Visit Diagnoses Diagnosis Acute non-recurrent maxillary sinusitis- Primary Irritation of right eye documented in this encounter Historical Medications * This list may reflect changes made after this encounter. Medication Sig Dispense Quantity Refills Last Filled Start D ate End Date albuterol HFA (PROVENTIL HFA,VENTOLIN HFA,PROAIR HFA) 90 mcg/actuation inhaler 04/08/2021 atorvastatin (LIPITOR) 20 mg tablet 02/26/2021 added in this encounter Care Teams Wool Grader Relationship Specialty Start Date End Date Miscellaneous, Not In File PCP - General 04/19/21 documented as of this encounter
--- OUTSIDE RECORDS SUMMARY | 2024-07-26 23:40 | XMS_ITS | Encounter Summary ---
Author Organization [facility] Address [address] [place] [address] Care Team Providers Care Hot Braider Name Role Phone Miscellaneous, Not In File Primary Care Provider Unavailable Reason for Visit * Reason Comments Sinus Problem Sinus congestion/tracy inage, cough, headache, fever 100.2, sx's started Thursday evening, she has been taking tylenol, neg at home covid test this morning. Encounter Details Date Type Department Care Team (Late st Contact Info) Description 05/30/2024 4:45 PM CDT Office Visit [facility] [address] [place] [address] Gail Maradiaga NP [address] [address] Acute maxillary sinusitis, recurrence not specified (Primary Dx) Social History Tobacco Use Types Packs/Day Years [...] Mass Index 18.08 05/30/2024 4:45 PM CDT documented in this encounter Patient Instructions * Patient Instructions* Gail Maradiaga NP - 05/30/2024 4:45 PM CDT Research has proven that unless you are running a fever or symptoms start to improve then get worseagain, sinus infections are typically viral until days 9-10. Finish the entire antibiotic prescription. Take this with food. Eat yogurt or take probiotic daily while on antibiotics. Symptomatic treatments include: - Over the counter antihistamine such as loratadine (Claritin) or cetirizine (Zyrtec) to reduce secretions. The D formula includes pseudoephedrine and can be helpful as a decongestant but SHOULD NOT BE USED IF YOU HAVE A HISTORY OF HIGH BLOOD PRESSURE. - Coricidin HBP may be taken for congestion if you have a history of high blood pressure. - Topical decongestants are another option such as Afrin. Do not use for more than 3 days as it cancause rebound congestion worse than original congestion. - Tessalon, Dextromethorphan (Robitussin) or Delsym for cough - Guafenesin (Mucinex) to thin secretions - Acetaminophen (Tylenol), ibuprofen (Motrin, Advil), or Aleve (naproxen) for pain or fever. - The use of hypertonic saline to irrigate nasal passageways can be helpful. Over the counter systems include Neti Pot and Nasopure. Use with distilled water. - Salt water gargles and throat lozenges can be helpful for sore throat. - To prevent spreading the illness to others cover your sneeze and cough into your arm and not yourhand, don't allow others to eat or drink with the same utensils or glass, and use hand seed expert before touching people or common surfaces. - Apply warm packs to face to facilitate sinus drainage. - Use cool mist humidifier in bedroom at night. - Increase fluid consumption and rest. - Follow up with your PCP in 1 week or sooner if symptoms worsen or are not improving as planned. - If you experience any shortness of breath, chest pain, or high fever >101, go to the EmergencyRoom. documented in this encounter Ordered Prescriptions Prescription Sig Dispense Quantity Refills Last Filled Start Date End Date azithromycin (ZITHROMAX) 250 mg tabletIndications:A cute maxillary sinusitis, recurrence not specified Take two tabs first day, then one tab daily x 4 days 6 tablet 05/30/2024 documented in this encounter Progress Notes * Gail Maradiaga NP - 05/30/2024 4:45 PM CDT Images from the original note were not included. Subjective/Objective Patient ID: November Tiarra is a 63 y.o. female. Chief Complaint Sinus Problem (Sinus congestion/drainage, cough, headache, fever 100.2, sx's started Thursday evening, she has been taking tylenol, neg at home covid test this morning.) Patient presents to [facility] for sinus congestion, nasal drainage, cough, and headache x3 days. She denies any known exposure to COVID, flu, or strep. She took an at home COVID test this morning that was negative. She has a history of ovarian cancer and gets immuno therapy infusions every 3 weeks. She denies any chest pain or shortness of breath. She states that highest temperature has been was 100.2 F. she has been taking OTC Tylenol for her symptoms. Sinus Problem Review of Systems All systems reviewed and are negative or non contributory for this patient's presentation today other than as stated in the HPI. Physical Exam Vitals reviewed. Constitutional: General: She is not in acute distress. Appearance: Normal appearance. She is well-developed. She is not ill-appearing. HENT: Head: Normocephalic. Right Ear: Tympanic membrane, ear canal and external ear normal. Left Ear: Tympanic membrane, ear canal and external ear normal. Nose: No congestion or rhinorrhea. Right Sinus: Maxillary sinus tenderness present. No frontal sinus tenderness. Left Sinus: Maxillary sinus tenderness present. No frontal sinus tenderness. Comments: Mild swelling over right maxillary sinus Mouth/Throat: Lips: [place]. Mouth: Mucous membranes are moist. Pharynx: Oropharynx is clear. Eyes: General: Right eye: No discharge. Left eye: No discharge. Conjunctiva/sclera: Conjunctivae normal. Cardiovascular: Rate and Rhythm: Normal rate and regular rhythm. Pulmonary: Effort: Pulmonary effort is normal. No respiratory distress. Breath sounds: Normal breath sounds and air entry. Musculoskeletal: General: Normal range of motion. Cervical back: Neck supple. Lymphadenopathy: Head: Right side of head: No tonsillar adenopathy. Left side of head: No tonsillar adenopathy. Cervical: No cervical adenopathy. Skin: General: Skin is warm and dry. Findings: No rash. Neurological: Mental Status: She is alert and oriented to person, place, and time. Mental status is at baseline. Psychiatric: Attention and Perception: Attention normal. Mood and Affect: Mood normal. Behavior: Behavior normal. Behavior is cooperative. Thought Content: Thought content normal. Judgment: Judgment normal. Vitals: 05/30/24 1645 BP: 144/86 Pulse: 96 Resp: 16 Temp: 36.7 ??C (98 ??F) TempSrc: Oral SpO2: 99% Weight: 50.8 kg (112 lb) Height: 167.6 cm (5' 6 ) Assessment/Plan Diagnoses and all orders for this visit: Acute maxillary sinusitis, recurrence not specified (Primary) - azithromycin (ZITHROMAX) 250 mg tablet; Take two tabs first day, then one tab daily x 4 days --azithromycin has prescribed for sinusitis --reviewed OTC medications to help with symptoms --recommend patient let Oncology team know that she will be on antibiotic during her immunotherapy this --follow up with PCP if symptoms persist or worsen No results found for this or any previous visit (from the past 4 hour(s)). Patient Education: Disposition Treatment plan including expectations, follow up, and return precautions discussed with patient/parent, verbalizes understanding. Medication dosage, use, and potential adverse reactions discussed with patient/parent. Advised to follow up with PCP if symptoms do not resolve as expected or sooner if condition worsens. Signs/symptoms warranting ER evaluation reviewed. Patient and/or guardian was given an opportunity to ask questions, questions answered. Gail Maradiaga NP documented in this encounter Plan of Treatment Not on file documented as of this encounter Visit Diagnoses Diagnosis Acute maxillary sinusitis, recurrence not specified- Primary documented in this encounter Historical Medications * This list may reflect changes made after this encounter. bevacizumab (AVASTIN) 25 mg/mL injection magnesium gluconate 200 mg tabletIndication s:hypomagnesemia 1 tablet (200 mg total) pyridoxine (VITAMIN B6) 25 mg tablet Take 1 tablet (25 mg total) by mouth daily cholecalciferol, vitamin D3, 14,000 unit wafer Take by mouth Wixela Inhub 250-50 mcg/dose diskus inhaler USE 1 INHALATION ORALLY TWICE DAILY fluticasone propionate (FLONASE) 50 mcg/actuation nasal spray Administer 2 sprays into affected nostril(s) daily lidocaine-priloc anjel cream APPLY A THIN LAYER OVER PORT SITE 30-45 MINUTES PRIOR TO CHEMOTHERAPY. 12/14/2023 loratadine (CLARITIN) 10 mg tablet Take 1 tablet (10 mg total) by mouth daily losartan (COZAAR) 50 mg tablet Take 1 tablet (50 mg total) by mouth daily 12/06/2023 olaparib (LYNPARZA) 150 mg tablet Take 1 tablet (150 mg) by mouth 2 (two) times a day. 05/12/2024 olaparib (LYNPARZA) 100 mg tablet Take 1 tablet (100 mg) by mouth 2 (two) times a day. 05/12/2024 omega-3 fatty acids-fish oil 300-1,000 mg capsule Take 2 capsules (2 g total) by mouth daily ondansetron (ZOFRAN) 8 mg tablet Take 1 tablet (8 mg total) by mouth every 8 (eight) hours as needed 05/22/2023 prochlorperazine (COMPAZINE) 10 mg tablet Take 1 tablet (10 mg total) by mouth every 6 (six) hours as needed 05/22/2023 senna-docusate (PERICOLACE) 8.6-50 mg Take by mouth added in this encounter Care Teams Hot Braider Relationship Specialty Start Date End Date Miscellaneous, Not In File PCP - General 04/19/21 documented as of this encounter
--- OUTSIDE RECORDS SUMMARY | 2024-07-26 23:40 | XMS_ITS ---
Author Organization Unknown Medications Medication Instructions Effective Dates (start - stop) Status mupirocin 0.02 MG/MG Topical Ointment 9773-30-84H14:00:00.000+00:0 0 - Completed [id number] 200 ACTUAT albuter ol 0.09 MG/ACTUAT Metered Dose Inhaler 2413-69-38Y56:00:00.000+00:0 0 - Completed [id number] 200 ACTUAT albuter ol 0.09 MG/ACTUAT Metered Dose Inhaler 1470-13-18H18:00:00.000+00:0 0 - Completed atorvastatin 20 MG Oral Tablet 2 730-06-50C31:00:00.000+00:00 - Completed [id number] 200 ACTUAT albuter ol 0.09 MG/ACTUAT Metered Dose Inhaler 3169-66-80T69:00:00.000+00:0 0 - Completed atorvastatin 20 MG Oral Tablet 2 963-54-42V53:00:00.000+00:00 - Completed - 0432-23-95T98:00 :00.000+00:00 - Completed [id number] 200 ACTUAT albuter ol 0.09 MG/ACTUAT Metered Dose Inhaler 7599-59-05K92:00:00.000+00:0 0 - Completed [id number] 200 ACTUAT albuter ol 0.09 MG/ACTUAT Metered Dose Inhaler [id number]:00:00.000+00:0 0 - Completed [id number] 200 ACTUAT albuter ol 0.09 MG/ACTUAT Metered Dose Inhaler 0663-40-14O08:00:00.000+00:0 0 - Completed atorvastatin 20 MG Oral Tablet 2 903-76-13L42:00:00.000+00:00 - Completed atorvastatin 20 MG Oral Tablet 2 164-09-68G93:00:00.000+00:00 - Completed [id number] 200 ACTUAT albuter ol 0.09 MG/ACTUAT Metered Dose Inhaler 2275-66-79F55:00:00.000+00:0 0 - Completed prednisone 20 MG Oral Tablet 10-13-00:00:00.000+00:00 - Completed [id number] 200 ACTUAT albuter ol 0.09 MG/ACTUAT Metered Dose Inhaler 1600-77-10P85:00:00.000+00:0 0 - Completed [id number] 200 ACTUAT albuter ol 0.09 MG/ACTUAT Metered Dose Inhaler 2446-23-73Z92:00:00.000+00:0 0 - Completed - 7651-87-69J74:00 :00.000+00:00 - Completed doxycycline hyclate 100 MG O ral Tablet 7399-17-03J81:00:00.000+00:0 0 - Completed {11 (varenicline 0.5 MG Oral Tablet) / 42 (varenicline 1 MG Oral Tablet) } Pack [id number]:00:00.000+00:0 0 - Completed varenicline 1 MG Oral Tablet 202 09-20-10:00:00.000+00:00 - Completed {21 (methylprednisolone 4 MG Oral Tablet) } Pack [id number]:00:00.000+00:0 0 - Completed Patient Care team information Name Category Status Period Participants - - Proposed period not known -
--- OUTSIDE RECORDS SUMMARY | 2024-07-26 23:40 | XMS_ITS | Encounter Summary ---
Author Organization [facility] Medical Group Address [address] [facility] [address] [place] [id number] Care Team Providers Care Bank Manager Name Role Phone Miscellaneous, Not In File Primary Care Provider Unavailable Reason for Visit * Reason Comments UTI Burning, urgency, an d frequency when urinating. Patient symptoms started on 01/24/2022. Patient states she has been on vacation and was drinking more soda then she usually days. She has been taking AZO OTC last night and today. Encounter Details Date Type Department Care Team (Late Contact Info) Description 01/28/2022 4:45 PM CDT Office Visit [facility] [place] [address] [place] [address] Avani Beavers, GLASS WASHER [address] [facility] [place] [address] Cystitis (Primary Dx); UTI symptoms Social History Tobacco Use Types Packs/Day Years Used Date Smoking Tobacco: Every Day Smokeless Tobacco: Never Comments Unknown Sex and Gender Information Value Date Recorded Sex Assigned at Not on file Legal Sex Female 8:24 AM CDT Gender Identity Not on file Sexual Orientation Not on file documented as of this encounter Last Filed Vital Signs Vital Sign Reading Time Taken Comments Blood Pressure 146/84 01/28/2022 4:37 PM CDT Pulse 85 01/28/2022 4:37 PM CDT Temperature 36.8 ??C (98.2 ??F) 01/28/2022 4:37 PM CD T Respiratory Rate 16 01/28/2022 4:37 PM CDT Oxygen Saturation 95% 01/28/2022 4:37 PM CDT Inhaled Oxygen Concentration - - Weight 59 kg (130 lb) 01/28/2022 4:37 PM CDT Height 167.6 cm (5' 6 ) 01/28/2022 4:37 PM CDT Body Mass Index 20.98 01/28/2022 4:37 PM CDT documented in this encounter Patient Instructions * Patient Instructions* Avani Beavers NP - 01/28/2022 5:15 PM CDT Treatment of urinary symptoms: Take your prescribed antibiotic until it is gone. Stopping your antibiotic early puts you at risk for developing an antibiotic resistant infection. Most people have symptom relief with their antibiotic within the first day (some even within a few hours of the first dose). In the meantime you may use Pyridium as needed for burning upon urination- do not use for more than3 days as this can mask the symptoms of a worsening infection. Pyridium will turn your urine orange. May take Tylenol/Motrin for pain Drink plenty of water and fluids. Vitamin C 500mg 1 tab to chew or swallow twice a day for 10 days may help may the urine fight the bacterial infection better. Cranberry products are not proven to treat or prevent urinary tract infections however there is probably not much harm in taking them if you wish to do so. Avoid citrus juices, caffeine, alcohol, and intercourse (bladder irritants) until your symptoms resolve and treatment is complete. To prevent UTI in the future: Increase your water intake. Urine should be clear or nearly clear. Attempt to empty your bladder every 2-3 hours and do not hold urine for long periods of time. Always wipe from front to back. Void before and after intercourse. Avoid tight-fitting jeans, nylon or thong underwear as they can trap moisture and help bacteria grow. Cotton underwear and loose-fitting clothes should be worn. Call you PRIMARY CARE PROVIDER should your symptoms fail to improve or worsen. Go to the ER if you experience any severe back, flank, or groin pains, fever >101 that does not respond to Motrin or Tylenol, persistent vomiting, or any other worsening symptoms documented in this encounter Ordered Prescriptions Prescription Sig Dispense Quantity Refills Last Filled Start Date End Date nitrofurantoin monohydrate (MACROBID) 100 mg capsuleIndications :Cystitis Take 1 capsule (100 mg total) by mouth 2 (two) times a day for 5 days 10 capsule 01/28/2022 2 documented in this encounter Progress Notes * Avani Beavers, GLASS WASHER - 01/28/2022 4:45 PM CDT Images from the original note were not included. Subjective/Objective Patient ID: November Tiarra is a 61 y.o. female. Chief Complaint UTI (Burning, urgency, and frequency when urinating. Patient symptoms started on 01/24/2022. Patientstates she has been on vacation and was drinking more soda then she usually days. She has been taking AZO OTC last night and today. ) Azo is helping. About 1 year since last UTI. No hx of kidney infections. Review of Systems Constitutional: Negative for fatigue and fever. HENT: Negative for congestion and sore throat. Respiratory: Negative for cough, chest tightness and shortness of breath. Cardiovascular: Negative for chest pain. Gastrointestinal: Negative for abdominal pain, diarrhea, nausea and vomiting. Genitourinary: Positive for dysuria, frequency and urgency. Negative for difficulty urinating, flank pain, hematuria and vaginal discharge. Musculoskeletal: Negative for back pain. Skin: Negative for color change. Neurological: Negative for dizziness. Hematological: Negative for adenopathy. Psychiatric/Behavioral: Negative for confusion. Physical Exam Vitals reviewed. Constitutional: Appearance: Normal appearance. Cardiovascular: Rate and Rhythm: Normal rate and regular rhythm. Pulmonary: Effort: Pulmonary effort is normal. Abdominal: General: Bowel sounds are normal. Palpations: Abdomen is soft. Tenderness: There is abdominal tenderness (mild) in the suprapubic area. There is no right CVA tenderness or left CVA tenderness. Musculoskeletal: General: Normal range of motion. Cervical back: Normal range of motion. Skin: General: Skin is warm and dry. Neurological: Mental Status: She is alert and oriented to person, place, and time. Psychiatric: Attention and Perception: Attention normal. Mood and Affect: Mood and affect normal. Behavior: Behavior is cooperative. Vitals: 01/28/22 1637 BP: 146/84 BP Location: Left arm Patient Position: Sitting Pulse: 85 Resp: 16 Temp: 36.8 ??C (98.2 ??F) TempSrc: Oral SpO2: 95% Weight: 59 kg (130 lb) Height: 167.6 cm (5' 6 ) Assessment/Plan Treatment of urinary symptoms: Take your prescribed antibiotic until it is gone. Stopping your antibiotic early puts you at risk for developing an antibiotic resistant infection. Most people have symptom relief with their antibiotic within the first day (some even within a few hours of the first dose). In the meantime you may use Pyridium as needed for burning upon urination- do not use for more than3 days as this can mask the symptoms of a worsening infection. Pyridium will turn your urine orange. May take Tylenol/Motrin for pain Drink plenty of water and fluids. Vitamin C 500mg 1 tab to chew or swallow twice a day for 10 days may help may the urine fight the bacterial infection better. Cranberry products are not proven to treat or prevent urinary tract infections however there is probably not much harm in taking them if you wish to do so. Avoid citrus juices, caffeine, alcohol, and intercourse (bladder irritants) until your symptoms resolve and treatment is complete. To prevent UTI in the future: Increase your water intake. Urine should be clear or nearly clear. Attempt to empty your bladder every 2-3 hours and do not hold urine for long periods of time. Always wipe from front to back. Void before and after intercourse. Avoid tight-fitting jeans, nylon or thong underwear as they can trap moisture and help bacteria grow. Cotton underwear and loose-fitting clothes should be worn. Call you PRIMARY CARE PROVIDER should your symptoms fail to improve or worsen. Go to the ER if you experience any severe back, flank, or groin pains, fever >101 that does not respond to Motrin or Tylenol, persistent vomiting, or any other worsening symptoms Diagnoses and all orders for this visit: Cystitis (Primary) - nitrofurantoin monohydrate (MACROBID) 100 mg capsule; Take 1 capsule (100 mg total) by mouth 2 (two) times a day for 5 days UTI symptoms - POCT UA, AUTO W/O SCOPE - Urine culture Urine, clean voided; Future Disposition- Discussed medications dosages, usage & potential [...] is in agreement with the plan of care Avani Beavers NP documented in this encounter Plan of Treatment Not on file documented as of this encounter Procedures Procedure Name Priority Date/Time Associated Diagnosis Comments POCT URINALYSIS, AUTO W/O SCOPE Routine 01/28/2022 4:45 PM CDT UTI symptoms documented in this encounter Results * (ABNORMAL) Urine culture Urine, clean voided (01/28/2022 4:46 PM CDT) Report Final Report: Greater than or equal to 100,000 colonies/mL of Klebsiella pneumoniae Plus growth of clinically insignificant bacterial fernando. (.) JOSE LEONARD Comment:Testing performed by : [facility], [address] [place]., [address] Organism KLEBSIELLA PNEUMONIAE JOSE Organism PLUS GROWTH OF CLINICALLY INSIGNIFICANT FERNANDO. JOSE Urine, clean voided 01/28/2022 4:46 PM CDT 01/28/2022 10:37 PM CDT Narrative JOSE - 02/01/2022 1:41 PM CDT Testing performed by [facility] Microbiology Laboratory ([phone]) Organism Antibiotic Method Susceptibility Klebsiella pneumoniae Ampicillin INTERPRETATION Resistant Klebsiella pneumoniae Cefazolin INTERPRETATION Susceptible Klebsiella pneumoniae Nitrofurantoin INTERPRETATION Susceptible Klebsiella pneumoniae Gentamicin INTERPRETATION Susceptible Klebsiella pneumoniae Trimethoprim with Sulfamethoxazole INTERPRETATION Susceptible Klebsiella pneumoniae Meropenem INTERPRETATION Susceptible Klebsiella pneumoniae Cefepime INTERPRETATION Susceptible Klebsiella pneumoniae Ciprofloxacin INTERPRETATION Susceptible Klebsiella pneumoniae Ceftazidime INTERPRETATION Susceptible Klebsiella pneumoniae Ceftriaxone INTERPRETATION Susceptible Klebsiella pneumoniae Piperacillin/Tazobactam INTERPRE TATION Susceptible Klebsiella pneumoniae Cephalexin INTERPRETATION Susceptible Klebsiella pneumoniae Cefuroxime-axetil INTERPRETATION Susceptible Klebsiella pneumoniae Cefdinir INTERPRETATION Susceptible us Avani Beavers NP LAB MICROBIOLOGY - GENERAL ORD ERABLES Final Result JOSE [id number] Department [place] [address] * (ABNORMAL) POCT UA, AUTO W/O SCOPE (01/28/2022 4:45 PM CDT) Color, Urine, POC [place] Clarity, ur, POC Clear Clear Glucose, ur, POC 100.(A) Negative MG/DL Bilirubin, ur, POC Negative Negative, Small, Moderate, Large Ketones, ur, POC Negative Negative Specific [place], POC 1.005 1.005 - 1.030 Blood, ur, POC Small(A) Negative pH, ur, POC 6.0 5.0 - 8.0 Protein, ur, POC Negative Negative Urobilinogen, Urine, POC 1.0 mg/dL Leukocytes, ur, POC Negative Negative Nitrite, ur, POC Positive(A) Negative Appearance, fld Clear Clear Urine, clean voided 01/28/2022 4:45 PM CDT us Avani Beavers NP POINT OF CARE TEST ORDERABLES Final Result documented in this encounter Visit Diagnoses Diagnosis Cystitis- Primary Unspecified cystitis UTI symptoms UTI symptoms documented in this encounter Care Teams Bank Manager Relationship Specialty Start Date End Date Miscellaneous, Not In File PCP - General 04/19/21 documented as of this encounter
--- OUTSIDE RECORDS SUMMARY | 2024-07-26 23:40 | XMS_ITS | Clinical Summary ---
Author Organization [address] Address [address] [place] [address] Care Team Providers Care Putter In Name Role Phone Miscellaneous, Not In File Primary Care Provider Unavailable Allergies Active Allergy Reactions Criticality Noted Date [...] by mouth 2 (two) times a day. 4 Active olaparib (LYNPARZA) 150 mg tablet Take 1 tablet (150 mg) by mouth 2 (two) times a day. 4 Active losartan (COZAAR) 50 mg tablet Take [...] Active Active Problems No known active problems Encounters Date Type Department Care Team Description 05/30/2024 4:45 PM CDT Office Visit [facility] Medical Group [facility] Care at [address] [place] [address] Gail Maradiaga NP Acute maxillary sinusitis, recurrence not specified (Primary Dx) from Last 3 Months Surgical History Surgery Date Site/Laterality Comments SECTION FOOT SURGERY Medical History Medical History Date Comments Asthma Hyperlipidemia Family History Medical History Relation Name Comments Cancer Father Relation Name Status Comments Father Social History Tobacco Use Types Packs/Day Years Used Date Smoking Tobacco: Every Day Smokeless Tobacco: Never Personal Safety Answer Date Recorded Getting School Help Needed Not on file 10/10 Comments Unknown Sex and Gender Information Value Date Recorded Sex Assigned at Not on file Legal Sex Female 8:24 AM CDT Gender Identity Not on file Sexual Orientation Not on file Obstetrics History Last Filed Vital Signs Vital Sign Reading [...] 05/30/2024 4:45 PM CDT Plan of Treatment Health Maintenance Due Date Last Done Comments Breast Cancer Screening-Mammogram 1960 Cervical Cancer Screening 1959 Colon Cancer Screening-Colonoscopy 1959 Depression Screening 1959 Hepatitis C Screening 1959 Pneumococcal vaccine <65 (1 of 2 - PCV) 11/26/1965 Hepatitis B Screening 11/26/1977 Regular Well Visit/Exam 18-64 11/26/1977 Zoster Vaccine (1 of 2) 11/26/1978 DTaP/Tdap/Td Vaccine (1 - Tdap) 05/10/1994 4 Covid-19 Vaccine (3 - Moderna risk series) 11/14/2020 10/17/2020, 09/22/2020 Influenza Vaccine (#1) 2024 Insurance [facility] [employer] HMO/PPO Address: [facility] [id number] [place] [phone] [employer] [facility] HMO Care Teams Putter In Relationship Specialty Start Date End Date Miscellaneous, Not In File PCP - General 04/19/21
--- OUTSIDE RECORDS SUMMARY | 2024-07-26 23:40 | XMS_ITS | Clinical Summary ---
Author Organization [facility] Address [address] [place] [address]. [place], [place] [address] [place] [address] Care Team Providers Care Filter Tank Operator Name Role Phone Unavailable Primary Care Provider Unavailabl e Social History Tobacco Use Types Packs/Day Years Used Date Smoking Tobacco: Never Assessed Comments Unknown Sex and Gender Information Value Date Recorded Sex Assigned at Not on file Legal Sex Female 7:18 PM CDT Gender Identity Not on file Sexual Orientation Not on file Last Filed Vital Signs Vital Sign Reading Time Taken Comments Blood Pressure 112/76 11/01/2013 4:32 PM CDT Pulse 68 11/01/2013 4:32 PM CDT Temperature - - Respiratory Rate - - Oxygen Saturation - - Inhaled Oxygen Concentration - - Weight 54 kg (119 lb) 11/01/2013 4:32 PM CDT Height 167.6 cm (5' 6 ) 11/01/2013 4:32 PM CDT Body Mass Index 19.21 11/01/2013 4:32 PM CDT Plan of Treatment Health Maintenance Due Date Last Done Comments Cervical Cancer Screening Pa p Smear (Age 30 to 64) Every 3 Years 1959 Colorectal Cancer Screening Colonoscopy (10 Years) 1959 Annual Physical 11/26/1962 Hepatitis C 11/26/1977 DTaP, Tdap and Td Vaccines ( 1 - Tdap) 11/26/1978 Cervical Cancer Screening Pa p with HPV Testing (Age 30 to 64) Every 5 Years 11/26/1989 Cervical Cancer Screening with HPV 11/26/1989 Mammogram Screening 1999 Zoster Vaccines (1 of 2) 11/26/2009 RSV Immunization or 60+ Years (1 - 1-dose 60+ series) 2019 COVID-19 Vaccine (2023-2 5 season) 2024 Influenza Adult (#1) 2024 Meningococcal Vaccine Aged Out No trav ketan eligible based on patient's age to complete this topic Pneumococcal Vaccine: Pediat rics (0 to 5 Years) and At-Risk Patients (6 to 64 Years) Aged Out No longer eligible b ased on patient's age to complete this topic RSV Immunizations Under 20 Months Aged Out No longer eligible based on patient's age to complete this topic
--- OUTSIDE RECORDS SUMMARY | 2024-07-26 23:40 | XMS_ITS | Encounter Summary ---
Author Organization [facility] Healthcare Address [address] [place] [address] Care Team Providers Care Meat Scrubber Name Role Phone Miscellaneous, Not In File Primary Care Provider Unavailable Encounter Details Date Type Department Care Team (Late st Contact Info) Description 01/28/2022 8:15 PM CDT Lab [address] [address] UTI symptoms Social History Tobacco Use Types Packs/Day Years Used Date Smoking Tobacco: Every Day Smokeless Tobacco: Never Comments Unknown Sex and Gender Information Value Date Recorded Sex Assigned at Not on file Legal Sex Female 8:24 AM CDT Gender Identity Not on file Sexual Orientation Not on file documented as of this encounter Miscellaneous Notes * Result Encounter Note - Lyudmila Nelson MA - 02/01/2022 11:00 AM CDT Patient is aware of positive urine culture and that she is on the correct abx for the infections.She was also made aware she would need to complete the course of abx and to f/u if sx persist. Patientverbalized understanding. * Result Encounter Note - Vivian Zayas PA - 01/30/2022 1:53 PM CDT Patient was prescribed Macrobid. Wait for urine culture susceptibility. documented in this encounter Plan of Treatment Not on file documented as of this encounter Procedures Procedure Name Priority Date/Time Associated Diagnosis Comments URINE CULTURE Routine 01/28/2022 4:46 PM CDT UTI symptoms documented in this encounter Results * (ABNORMAL) Urine culture Urine, clean voided (01/28/2022 4:46 PM CDT) Report Final Report: Greater than or equal to 100,000 colonies/mL of Klebsiella pneumoniae Plus growth of clinically insignificant bacterial fernando. (.) JOSE LEONARD Comment:Testing performed by : [facility], [address] [place]., [address] Organism KLEBSIELLA PNEUMONIAE JOSE Organism PLUS GROWTH OF CLINICALLY INSIGNIFICANT FERNANDO. JOSE Urine, clean voided 01/28/2022 4:46 PM CDT 01/28/2022 10:37 PM CDT Narrative JOSE LEONARD - 02/01/2022 1:41 PM CDT Testing performed by [facility] Microbiology Laboratory ([phone]) Organism Antibiotic Method Susceptibility Klebsiella pneumoniae Ampicillin [...] - GENERAL ORD ERABLES Final Result JOSE LEONARD [id number] Department [place] [address] documented in this encounter Visit Diagnoses Diagnosis UTI symptoms documented in this encounter Care Teams Meat Scrubber Relationship Specialty Start Date End Date Miscellaneous, Not In File PCP - General 04/19/21 documented as of this encounter
--- OUTSIDE RECORDS SUMMARY | 2024-07-26 23:40 | XMS_ITS | Encounter Summary ---
Author Organization [facility] Address [address] [facility] [address] [place] [address] Care Team Providers Care Weatherization Administrator Name Role Phone Miscellaneous, Not In File Primary Care Provider Unavailable Reason for Visit * Reason Comments Rash Pt believes she may have a shingles breakout just below her right buttock, she describes it as slightly itchy, denies pain unless it is rubbed on. Encounter Details Date Type Department Care Team (Late st Contact Info) Description 08/13/2021 3:00 PM RIGGING SLINGER Office Visit [facility] [address] [place] [address] Tennille Mota, CHELY [address] [address] Disseminated herpes zoster (Primary Dx) Social History Tobacco Use Types [...] Sign Reading Time Taken Comments Blood Pressure 128/80 08/13/2021 3:00 PM RIGGING SLINGER Pulse 84 08/13/2021 3:00 PM RIGGING SLINGER Temperature 36.8 ??C (98.2 ??F) 08/13/2021 3:00 PM CS T Respiratory Rate 15 08/13/2021 3:00 PM RIGGING SLINGER Oxygen Saturation 98% 08/13/2021 3:00 PM RIGGING SLINGER Inhaled Oxygen Concentration - - Weight 64.4 kg (142 lb) 08/13/2021 3:00 PM RIGGING SLINGER Height 167.6 cm (5' 6 ) 08/13/2021 3:00 PM RIGGING SLINGER Body Mass Index 22.92 08/13/2021 3:00 PM RIGGING SLINGER documented in this encounter Patient Instructions * Patient Instructions* Tennille Mota, CHELY - 08/13/2021 3:00 PM RIGGING SLINGER Images from the original note were not included. ??? Although shingles is the same virus as chicken pox, it is less contagious than chicken pox. ??? Once your rash is crusted, you are not contagious. You are not infectious before blisters appear. ??? The shingles virus can be passed from a person with active shingles to a person who has not hadchicken pox. The virus is spread though direct contact with the fluid from the blisters. ??? Keep the rash covered and wash your hands. ??? Take antiviral three times daily for 7 days. ??? Take ibuprofen 800 mg 3x daily as needed for pain. ??? Please avoid contact with women who have never had chicken pox, premature infants, andimmunocompromised people. ??? Follow up with primary care provider in 2 weeks, or sooner if symptoms worsen. Patient Education Shingles CLAMP FORKLIFT OPERATOR: Shingles is a painful rash. Shingles is caused by the same virus that causes chickenpox (varicella-zoster virus). After you get chickenpox, the virus stays in your body for several years without causing any symptoms. Shingles occurs when the virus becomes active again. Once active, the virus will travel along a nerve to your skin and cause a rash. Common signs and symptoms include the following: Shingles often starts with pain in the back, chest, neck, or face. A rash then develops in the same area. The rash is usually found on only one side of the body. The rash may feel itchy or painful. It starts as red dots that become blisters filled with fluid. The blisters usually grow bigger, become filled with pus, and then crust over after a few days. You may also have any of the following: ?? Fatigue and muscle weakness ?? Pain when your skin is lightly touched ?? Headache ?? Fever ?? Eye pain when exposed to light Seek care immediately if: ?? You have painful, red, warm skin around the blisters, or the blisters drain pus. ?? Your neck is stiff or you have trouble moving it. ?? You have trouble moving your arms, legs, or face. ?? You have a seizure. ?? You have weakness in an arm or leg. ?? You become confused, or have difficulty speaking. ?? You have dizziness, a severe headache, or hearing or vision loss. Contact your healthcare provider if: ?? You feel weak or have a headache. ?? You have a cough, chills, or a fever. ?? You have abdominal pain or nausea, or you are vomiting. ?? Your rash becomes more itchy or painful. ?? Your rash spreads to other parts of your body. ?? Your pain worsens and does not go away even after you take medicine. ?? You have questions or concerns about your condition or care. Medicines: ?? Antiviral medicine helps decrease symptoms and healing time. They may also decrease your risk ofdeveloping nerve pain. You will need to start taking them within 3 days of the start of symptoms toprevent nerve pain. ?? Pain medicine may be prescribed or suggested by your healthcare provider. You may need NSAIDs, acetaminophen, or opioid medicine depending on how much pain you are in. Do not wait until the pain is severe before you take more pain medicine. ?? Topical anesthetics are used to numb the skin and decrease pain. They can be a cream, gel, spray, or patch. ?? Anticonvulsants decrease nerve pain and may help you sleep at night. ?? Antidepressants may be used to decrease nerve pain. Follow up with your healthcare provider as directed: Write down your questions so you remember to ask them during your visits. Self-care: Keep your rash clean and dry. Cover your rash with a bandage or clothing. Do not use bandages that stick to your skin. The sticky part may irritate your skin and make your rash last longer. Prevent the spread of shingles: The virus can be passed to a person who has never had chickenpox. This person may get chickenpox, but not shingles. You may pass the virus to others as long as you have a rash. The virus is spread by direct contact with the fluid from the blisters. Usually, you cannot spread the virus once the blisters dry up. Prevent shingles or another shingles outbreak: A vaccine may be given to help prevent shingles. Askfor more information about this vaccine. ?? 2017 [employer] Information is for End User's use only and may not be sold, redistributed or otherwise used for commercial purposes. All illustrations and images included in CareNotes?? are the copyrighted property of [employer]. or [employer]. The above information is an educational technologist only. It is not intended as medical advice for individual conditions or treatments. Talk to your doctor, nurse or pharmacist before following any medical regimen to see if it is safe and effective for you. ING SLINGER ING SLINGER documented in this encounter Ordered Prescriptions Prescription Sig Dispense Quantity Refills Last Filled Start Date End Date valACYclovir (Valtrex) 1 gram tabletIndications: Disseminated herpes zoster Take 1 tablet (1,000 mg total) by mouth every 8 (eight) hours for 7 days 21 tablet 08/13/2021 2 triamcinolone (KENALOG) 0.1 % creamIndications:D isseminated herpes zoster Apply topically 3 (three) times a day for 10 days 30 g 08/13/2021 2 documented in this encounter Progress Notes * Tennille Mota, CHELY - 08/13/2021 3:00 PM CST Images from the original note were not included. Subjective/Objective Patient: Narda Mayen is a 60 y.o. female. Chief Complaint: Rash (Pt believes she may have a shingles breakout just below her right buttock, she describes it as slightly itchy, denies pain unless it is rubbed on.) Narda Mayen presents to clinic with c/o rash x 2 days. States she noticed rash in her sleep on Thursday night (2 days ago) when the pain woke her in her sleep. States she has had shingles as a teenager, but has not recently. States that she has started a new job and has been under 'quite some stress.' Denies having attempted any OTC medications for symptom alleviation prior to arrival to clinic. Review of Systems Constitutional: Negative for chills and fever. HENT: Negative for congestion, ear pain, rhinorrhea, sinus pressure, sinus pain, sneezing and sore throat. Eyes: Negative. Respiratory: Negative for cough, chest tightness, shortness of breath and wheezing. Cardiovascular: Negative for chest pain. Gastrointestinal: Negative for constipation, diarrhea, nausea and vomiting. Endocrine: Negative. Genitourinary: Negative. Musculoskeletal: Negative for arthralgias and myalgias. Skin: Positive for rash. Allergic/Immunologic: Negative for environmental allergies. Neurological: Negative for headaches. Hematological: Negative for adenopathy. Psychiatric/Behavioral: Negative. Physical Exam Vitals and nursing note reviewed. Constitutional: Appearance: Normal appearance. HENT: Head: Normocephalic and atraumatic. Right Ear: External ear normal. Left Ear: External ear normal. Nose: Nose normal. Mouth/Throat: Mouth: Mucous membranes are moist. Cardiovascular: Rate and Rhythm: Normal rate and regular rhythm. Heart sounds: Normal heart sounds. Pulmonary: Effort: Pulmonary effort is normal. Breath sounds: Normal breath sounds. Musculoskeletal: General: Normal range of motion. Cervical back: Neck supple. Skin: General: Skin is warm and dry. Findings: Rash present. Rash is papular and vesicular. Neurological: General: No focal deficit present. Mental Status: She is alert and oriented to person, place, and time. Psychiatric: Mood and Affect: Mood normal. Behavior: Behavior normal. Vitals: 08/13/21 1500 BP: 128/80 BP Location: Left arm Patient Position: Sitting Pulse: 84 Resp: 15 Temp: 36.8 ??C (98.2 ??F) TempSrc: Oral SpO2: 98% Weight: 64.4 kg (142 lb) Height: 167.6 cm (5' 6 ) Assessment/Plan Diagnoses and all orders for this visit: Disseminated herpes zoster (Primary) - triamcinolone (KENALOG) 0.1 % cream; Apply topically 3 (three) times a day for 10 days - valACYclovir (Valtrex) 1 gram tablet; Take 1 tablet (1,000 mg total) by mouth every 8 (eight) hours for 7 days # disseminated herpes zoster, shingles --start valtrex --start triamcinolone --OTC antihistamine: Zyrtec, [place], Claritin wwo decongestant --shower daily, wash effected areas with fragrance free soap and water prior to application of triamcinolone --ED presentation with one or more of the following symptoms: fever uncontrolled with antipyretics,shortness of breath, chest discomfort, uncontrolled n/v/d --f/u with PCP if rash does not improve in 7-10 days Patient Instructions: ??? Although shingles is the same virus as chicken pox, it is less contagious than chicken pox. ??? Once your rash is crusted, you are not contagious. You are not infectious before blisters appear. ??? The shingles virus can be passed from a person with active shingles to a person who has not hadchicken pox. The virus is spread though direct contact with the fluid from the blisters. ??? Keep the rash covered and wash your hands. ??? Take antiviral three times daily for 7 days. ??? Take ibuprofen 800 mg 3x daily as needed for pain. ??? Please avoid contact with women who have never had chicken pox, premature infants, andimmunocompromised people. ??? Follow up with primary care provider in 2 weeks, or sooner if symptoms worsen. Patient Education Shingles CLAMP FORKLIFT OPERATOR: Shingles is a painful rash. Shingles is caused by the same virus that causes chickenpox (varicella-zoster virus). After you get chickenpox, the virus stays in your body for several years without causing any symptoms. Shingles occurs when the virus becomes active again. Once active, the virus will travel along a nerve to your skin and cause a rash. Common signs and symptoms include the following: Shingles often starts with pain in the back, chest, neck, or face. A rash then develops in the same area. The rash is usually found on only one side of the body. The rash may feel itchy or painful. It starts as red dots that become blisters filled with fluid. The blisters usually grow bigger, become filled with pus, and then crust over after a few days. You may also have any of the following: ?? Fatigue and muscle weakness ?? Pain when your skin is lightly touched ?? Headache ?? Fever ?? Eye pain when exposed to light Seek care immediately if: ?? You have painful, red, warm skin around the blisters, or the blisters drain pus. ?? Your neck is stiff or you have trouble moving it. ?? You have trouble moving your arms, legs, or face. ?? You have a seizure. ?? You have weakness in an arm or leg. ?? You become confused, or have difficulty speaking. ?? You have dizziness, a severe headache, or hearing or vision loss. Contact your healthcare provider if: ?? You feel weak or have a headache. ?? You have a cough, chills, or a fever. ?? You have abdominal pain or nausea, or you are vomiting. ?? Your rash becomes more itchy or painful. ?? Your rash spreads to other parts of your body. ?? Your pain worsens and does not go away even after you take medicine. ?? You have questions or concerns about your condition or care. Medicines: ?? Antiviral medicine helps decrease symptoms and healing time. They may also decrease your risk ofdeveloping nerve pain. You will need to start taking them within 3 days of the start of symptoms toprevent nerve pain. ?? Pain medicine may be prescribed or suggested by your healthcare provider. You may need NSAIDs, acetaminophen, or opioid medicine depending on how much pain you are in. Do not wait until the pain is severe before you take more pain medicine. ?? Topical anesthetics are used to numb the skin and decrease pain. They can be a cream, gel, spray, or patch. ?? Anticonvulsants decrease nerve pain and may help you sleep at night. ?? Antidepressants may be used to decrease nerve pain. Follow up with your healthcare provider as directed: Write down your questions so you remember to ask them during your visits. Self-care: Keep your rash clean and dry. Cover your rash with a bandage or clothing. Do not use bandages that stick to your skin. The sticky part may irritate your skin and make your rash last longer. Prevent the spread of shingles: The virus can be passed to a person who has never had chickenpox. This person may get chickenpox, but not shingles. You may pass the virus to others as long as you have a rash. The virus is spread by direct contact with the fluid from the blisters. Usually, you cannot spread the virus once the blisters dry up. Prevent shingles or another shingles outbreak: A vaccine may be given to help prevent shingles. Askfor more information about this vaccine. ?? 2017 [employer] Information is for End User's use only and may not be sold, redistributed or otherwise used for commercial purposes. All illustrations and images included in CareNotes?? are the copyrighted property of [employer]. or [employer]. The above information is an educational technologist only. It is not intended as medical advice for individual conditions or treatments. Talk to your doctor, nurse or pharmacist before following any medical regimen to see if it is safe and effective for you. Brief: Treatment plan including expectations, follow up, and return precautions discussed with patient/parent, verbalizes understanding. Medication dosage, use, and potential adverse reactions discussed with patient/parent. Advised to follow up with PCP if symptoms do not resolve as expected or sooner if condition worsens. Signs/symptoms warranting ER evaluation reviewed. Patient and/or guardian was given an opportunity to ask questions, questions answered. Tennille Mota NP ING SLINGER documented in this encounter Plan of Treatment Not on file documented as of this encounter Visit Diagnoses Diagnosis Disseminated herpes zoster- Primary Other specified herpes zoster complications documented in this encounter Care Teams Weatherization Administrator Relationship Specialty Start Date End Date Miscellaneous, Not In File PCP - General 04/19/21 documented as of this encounter
--- OUTSIDE RECORDS SUMMARY | 2024-07-26 23:40 | XMS_ITS | Encounter Summary ---
Author Organization [facility] Address [address] [facility] [address] [place] [address] Care Team Providers Care Battery Plate Remover Name Role Phone Miscellaneous, Not In File Primary Care Provider Unavailable Reason for Visit * Reason Onset Date Comments Lab Results 02/01/2022 Positive urine c ulture Encounter Details Date Type Department Care Team ([facility] st Contact Info) Description 02/01/2022 Telephone [facility] [place] [address] [place] [address] Lyudmila Nelson sheep sticker Results (Positive urine culture) Social History Tobacco Use Types Packs/Day Years Used Date Smoking Tobacco: Every Day Smokeless Tobacco: Never Comments Unknown Sex and Gender Information Value Date Recorded Sex Assigned at Not on file Legal Sex Female 8:24 AM CDT Gender Identity Not on file Sexual Orientation Not on file documented as of this encounter Miscellaneous Notes * Telephone Encounter - Lyudmila Nelson MA - 02/01/2022 10:58 AM CDT Patient is aware of positive urine culture and that she is on the correct abx for the infections.She was also made aware she would need to complete the course of abx and to f/u if sx persist. Patientverbalized understanding. * Telephone Encounter - Lyudmila Nelson MA - 02/01/2022 10:58 AM CDT ----- Message from Nereida Dyson NP sent at 02/01/2022 10:22 AM CDT ----- Please call patient with positive urine culture. She is on the correct abx and should complete. Follow up if sx persist documented in this encounter Plan of Treatment Not on file documented as of this encounter Visit Diagnoses Not on filedocumented in this encounter Care Teams Battery Plate Remover Relationship Specialty Start Date End Date Miscellaneous, Not In File PCP - General 04/19/21 documented as of this encounter
--- OUTSIDE RECORDS SUMMARY | 2024-07-26 23:41 | XMS_ITS | Encounter Summary ---
Author Organization [facility] Address [address] [place] [address]. [place] [address] [place] [address] Care Team Providers Care Grommet Machine Operator Name Role Phone Unavailable Primary Care Provider Unavailabl e Encounter Details Date Type Department Care Team (Late st Contact Info) Description 11/01/2013 Abstract [facility] [address] [place] [address] Ara Taylor, [facility] [address] [place] [address] Social History Tobacco Use Types Packs/Day Years Used Date Smoking Tobacco: Never Assessed Comments Unknown Sex and Gender Information Value Date Recorded Sex Assigned at Not on file Legal Sex Female 7:18 PM CDT Gender Identity Not on file Sexual Orientation Not on file documented as of this encounter Plan of Treatment Not on file documented as of this encounter Visit Diagnoses Not on filedocumented in this encounter
--- OUTSIDE RECORDS SUMMARY | 2024-07-26 23:41 | XMS_ITS | Encounter Summary ---
Author Organization [facility] Address [address] [place] [address]. [place], [place] [id number] [place] [address] Care Team Providers Care Oracle Soa Consultant Name Role Phone Unavailable Primary Care Provider Unavailabl e Encounter Details Date Type Department Care Team (Late st Contact Info) Description 11/04/2013 Abstract [facility] Conversion Md, Generic Conversion, Social History Tobacco Use Types Packs/Day Years [...]
--- OUTSIDE RECORDS SUMMARY | 2024-07-26 23:41 | XMS_ITS | Encounter Summary ---
Author Organization [facility] Address [address] [place] [address]. [place] [address] [place] [address] Care Team Providers Care Kiln Firer Helper Name Role Phone Unavailable Primary Care Provider Unavailabl e Encounter Details Date Type Department Care Team (Late st Contact Info) Description 11/01/2013 Abstract [facility] Conversion Ara Taylor, CN [address] [place] [address] Social History Tobacco Use Types [...] Mass Index 19.21 11/01/2013 4:32 PM CDT documented in this encounter Plan of Treatment Not on file documented as of this encounter Procedures Procedure Name Priority Date/Time Associated Diagnosis Comments URINALYSIS, AUTO, COMPLETE Routine 11/01/2013 5:22 PM CDT SMEAR, STAIN, WET PREP Routine 11/01/2013 5:22 PM CDT documented in this encounter Results * SMEAR, STAIN, WET PREP (11/01/2013 5:22 PM CDT) GARDNERELLA VAGINALIS Negative NR: NEGATIVE [facility] TO EPIC CONVERSION TRICHOMONAS Negative NR: NEGATIVE [facility] TO EPIC CONVERSION LAKE SPECIES Negative NR: NEGATIVE [facility] TO EPIC CONVERSION lot number [id number] 05/20/2014 [facility] TO EPIC CONVERSION Internal Control: passed [facility] TO EPIC CONVERSION 11/01/2013 5:22 PM CDT 11/01/2013 5:22 PM CDT Narrative [facility] TO EPIC CONVERSION - 11/01/2013 6:41 PM CDT This lab was migrated from [facility] and may be missing annotations or result text, please check the Media tab for the most complete results. Ara Taylor CNM MICROBIOLOGY - GENERAL OR DERABLES Final Result [facility] TO EPIC CONVERSION * URINALYSIS, AUTO, COMPLETE (11/01/2013 5:22 PM CDT) COLOR (U) p.yel NR: YELLOW [facility] TO EPIC CONVERSION TURBIDITY Clear NR: CLEAR [facility] T O EPIC CONVERSION PH ARTERIAL 7 NR: 5 - 8.5 [facility] UP TO EPIC CONVERSION SPECIFIC GRAVITY (U) 1.005 NR: 1.010 - 1.025 [facility] TO EPIC CONVERSION PROTEIN NEG NR: NEGATIVE [facility] P TO EPIC CONVERSION URINE GLUCOSE NORM NR: NEGATIVE [facility] TO EPIC CONVERSION KETONE (U) NEG NR: NEGATIVE [facility] UP TO EPIC CONVERSION BILIRUBIN (U) NEG NR: NEGATIVE [facility] TO EPIC CONVERSION BLOOD (U) 25 NR: NEGATIVE [facility] P TO EPIC CONVERSION UROBILINOGEN NORM NR: 0.2 - 1.0 [facility] TO EPIC CONVERSION LEUK ESTERASE (U) NEG NR: NEGATIVE [facility] TO [facility]IC CONVERSION NITRITES NEG NR: NEGATIVE [facility] P TO EPIC CONVERSION BACTERIA (U) 1+ NR: NEGATIVE [facility]OUP TO EPIC CONVERSION CRYSTALS (U) None Seen NR: NEGATIVE [facility] TO EPIC CONVERSION EPI/HPF None Seen NR: NEGATIVE [facility] P TO EPIC CONVERSION RBC None Seen NR: NEGATIVE [facility] P TO EPIC CONVERSION WBC 0-2 NR: NEGATIVE [facility] P TO EPIC CONVERSION OTHER CASTS (U) None Seen NR: NEGATIVE M [facility] TO EPIC CONVERSION YEAST None Seen NR: NEGATIVE [facility] P TO EPIC CONVERSION MUCUS None Seen NR: NEGATIVE [facility] P TO EPIC CONVERSION 11/01/2013 5:22 PM CDT 11/01/2013 5:22 PM CDT Narrative [facility] TO EPIC CONVERSION - 11/01/2013 7:47 PM CDT This lab was migrated from [facility] and may be missing annotations or result text, please check the Media tab for the most complete results. Ara Taylor CNM URINE ORDERABLES Final Re sult [facility] TO EPIC CONVERSION documented in this encounter Visit Diagnoses Not on filedocumented in this encounter
--- OUTSIDE RECORDS SUMMARY | 2024-07-26 23:41 | XMS_ITS | Encounter Summary ---
Author Organization [facility] Address [address] [place] [address]. [place] [address] [place] [address] Care Team Providers Care Substation Electrician Supervisor Name Role Phone Unavailable Primary Care Provider Unavailabl e Encounter Details Date Type Department Care Team (Late st Contact Info) Description 07/13/2007 Abstract [facility] [address] [place] [address] Sayra Kelly MD [address] [place] [address] Social History Tobacco Use Types Packs/Day Years [...]
--- OUTSIDE RECORDS SUMMARY | 2024-07-26 23:41 | XMS_ITS | Encounter Summary ---
Author Organization [facility] Address [address] [place] [address]. [place], [place] [id number] [place] [id number] Care Team Providers Care City Maintenance Manager Name Role Phone Unavailable Primary Care Provider Unavailabl e Encounter Details Date Type Department Care Team (Late st Contact Info) Description 02/11/2011 Abstract [facility] Conversion Md, Generic Conversion, Social History [...]
--- OUTSIDE RECORDS SUMMARY | 2024-07-26 23:41 | XMS_ITS | Encounter Summary ---
Author Organization [facility] Address [address] [place] [address]. [place] [address] [place] [address] Care Team Providers Care System Auditor Name Role Phone Unavailable Primary Care Provider Unavailabl e Encounter Details Date Type Department Care Team (Late st Contact Info) Description 05/12/2017 Abstract [facility] [address] [address] Leona Cancino MD [address] [place] [address] Social History Tobacco Use Types Packs/Day Years Used Date Smoking Tobacco: Never Assessed Comments Unknown Sex and Gender Information Value Date Recorded Sex Assigned at Not on file Legal Sex Female 7:18 PM CDT Gender Identity Not on file Sexual Orientation Not on file documented as of this encounter Plan of Treatment Not on file documented as of this encounter Visit Diagnoses Diagnosis Other seborrheic keratosis documented in this encounter
--- OUTSIDE RECORDS SUMMARY | 2024-07-26 23:41 | XMS_ITS | Encounter Summary ---
Author Organization [facility] Address [address] [place] [address]. [place], [place] [address] [place] [address] Care Team Providers Care Master Control Operator Name Role Phone Unavailable Primary Care Provider Unavailabl e Encounter Details Date Type Department Care Team (Late st Contact Info) Description 01/22/1999 Abstract [facility] CONVERSION [address] [place] [address] , Generic Conversion, Social History Tobacco Use Types [...]
--- OUTSIDE RECORDS SUMMARY | 2024-07-26 23:41 | XMS_ITS | Encounter Summary ---
Author Organization [facility] Address [address] [place] [address]. [place] [address] [place] [address] Care Team Providers Care Police Clerk Name Role Phone Unavailable Primary Care Provider Unavailabl e Encounter Details Date Type Department Care Team (Late st Contact Info) Description 07/06/2007 Abstract [facility] [address] [place], [place] [id number] Sayra Kelly MD [address] [place] [address] Social History Tobacco Use Types [...]
--- OUTSIDE RECORDS SUMMARY | 2024-07-26 23:41 | XMS_ITS | Encounter Summary ---
Author Organization [facility] Address [address] [place] [address]. [place], [place] [address] [place] [address] Care Team Providers Care Early Childhood Name Role Phone Unavailable Primary Care Provider Unavailabl e Encounter Details Date Type Department Care Team (Late st Contact Info) Description 11/03/2013 Abstract [facility] Conversion Md, Generic Conversion, Social [...]
--- OUTSIDE RECORDS SUMMARY | 2024-07-26 23:41 | XMS_ITS | Encounter Summary ---
Author Organization [facility] Address [address] [place] [address]. [place], [place] [address] [place] [address] Care Team Providers Care Manager Air Name Role Phone Unavailable Primary Care Provider Unavailabl e Encounter Details Date Type Department Care Team (Late st Contact Info) Description 10/11/2010 Abstract [facility] Conversion Md, Generic Conversion, Social [...]
--- OUTSIDE RECORDS SUMMARY | 2024-07-26 23:41 | XMS_ITS | Encounter Summary ---
Author Organization [facility] Address [address] [place] [address]. [place], [place] [address] [place] [address] Care Team Providers Care Twitchell Operator Name Role Phone Unavailable Primary Care Provider Unavailabl e Encounter Details Date Type Department Care Team (Late st Contact Info) Description 10/11/2010 Abstract [facility] [address] [place] [address] Ara Taylor, [facility] [address] [place] [address] Social History Tobacco Use Types [...]
--- OUTSIDE RECORDS SUMMARY | 2024-07-26 23:41 | XMS_ITS | Encounter Summary ---
Author Organization [facility] Address [address] [place] [address]. [place], [place] [address] [place] [address] Care Team Providers Care Clinical Massage Therapist Name Role Phone Unavailable Primary Care Provider Unavailabl e Encounter Details Date Type Department Care Team (Late st Contact Info) Description 06/15/2018 Abstract [facility] Conversion Md, Generic Conversion, Social [...]
--- OUTSIDE RECORDS SUMMARY | 2024-07-26 23:42 | XMS_ITS | Encounter Summary ---
Author Organization [facility] Address [address] [place] [address] Care Team Providers Care Manager Of Case Name Role Phone Shilo Soares MD Primary Care Provider [phone] Encounter Details Date Type Department Care Team (Late Contact Info) Description 07/10/2024 External Device Data STL ABSTRACTION Provider, Abstract NO ADDRESS ON FILE Social History Tobacco Use Types Packs/Day Years Used Date Smoking Tobacco: Every Day Cigarettes 0.5 35 Smokeless Tobacco: Never Alcohol Use Standard Drinks/Week Comments Not Currently 0 (1 standard drink = 0.6 oz pur e alcohol) 2-3 drinks per year Feeling Safe Answer Date Recorded Are you in a relationship wi th someone who hurts you emotionally and/or physically? No 05/12/2024 Food Insecurity Answer Date Recorded Social/Environmental Concerns No concerns Transportation Needs Answer Date Record ed Social/Environmental Concerns No concerns Housing Stability Answer Date Recorded Social/Environmental Concerns No concerns Utility Needs Answer Date Recorded Social/Environmental Concerns No concerns Sex and Gender Information Value Date Recorded Sex Assigned at Not on file Gender Identity Not on file Sexual Orientation Not on file documented as of this encounter Plan of Treatment Upcoming Encounters Date Type Department Care Team (Late Contact Info) Description 08/04/2024 1:00 PM GRAIN OPERATOR Appointment [facility] [address] [place] [address] Aviva Humphries MD [address] [place] [address] Infusion Chair 5, 2nd Floor Hall 08/25/2024 1:00 PM GRAIN OPERATOR Office Visit [facility] Gynecologic Oncology Hall [address] [place] [address] Edilia Pettit, CHELY [address] [place] [address] 08/25/2024 1:30 PM GRAIN OPERATOR Appointment [facility] 2nd Fl [address] [place] [address] Aviva Humphries MD [address] [place] [address] Infusion Chair 1, 2nd Floor [place] 09/01/2024 10:45 AM GRAIN OPERATOR Appointment [facility] Nuclear Medicine [address] [place] [address] [id number] Edilia Pettit, CHELY [address] [facility] [address] [place] [address] documented as of this encounter Visit Diagnoses Not on filedocumented in this encounter Care Teams Manager Of Case Relationship Specialty Start Date End Date Shilo Soares MD [address] [place] [address] PCP - General Internal Medicine 04/24/23 documented as of this encounter
--- OUTSIDE RECORDS SUMMARY | 2024-07-26 23:42 | XMS_ITS | Encounter Summary ---
Author Organization [facility] Address [address] [place] [address] Care Team Providers Care Insurance Solicitor Name Role Phone Shilo Soares MD Primary Care Provider [phone] Encounter Details Date Type Department Care Team (Late Contact Info) Description 07/17/2024 External Device Data STL ABSTRACTION Provider, Abstract [...] (Late Contact Info) Description 08/04/2024 1:00 PM FIRE TOWER KEEPER Appointment [facility] Wi [address] [place] [address] Aviva Humphries MD [address] [place] [address] Infusion Chair 5, 2nd Floor Hall 08/25/2024 1:00 PM FIRE TOWER KEEPER Office Visit [facility] Gynecologic Oncology Hall [address] [place] [address] Edilia Petitt, CHELY [address] [facility] [place] [address] 08/25/2024 1:30 PM FIRE TOWER KEEPER Appointment [facility] 2nd Fl [address] [place] [address] Aviva Humphries MD [address] [place] [address] Infusion Chair 1, 2nd Floor [place] 09/01/2024 10:45 AM FIRE TOWER KEEPER Appointment [facility] Nuclear Medicine [address] [place] [address] [id number] Edilia Pettit, CHELY [address] [facility] [address] [place] [address] documented as of this encounter Visit Diagnoses Not on filedocumented in this encounter Care Teams Insurance Solicitor Relationship Specialty Start Date End Date Shilo Soraes MD [address] [place] [address] PCP - General Internal Medicine 04/24/23 documented as of this encounter
--- OUTSIDE RECORDS SUMMARY | 2024-07-26 23:42 | XMS_ITS | Encounter Summary ---
Author Organization [facility] Address [address] [place] [address] Care Team Providers Care Congressional District Aide Name Role Phone Shilo Soares MD Primary Care Provider [phone] Encounter Details Date Type Department Care Team (Late Contact Info) Description 07/21/2024 External Device Data STL ABSTRACTION Provider, Abstract [...] (Late Contact Info) Description 08/04/2024 1:00 PM FIELD SERVICE ENGINEER Appointment [facility] 2nd In [address] [place] [address] Aviva Humphries MD [address] [place] [address] Infusion Chair 5, 2nd Floor Hall 08/25/2024 1:00 PM FIELD SERVICE ENGINEER Office Visit [facility] Gynecologic Oncology Hall [address] [place] [address] Edilia Pettit, CHELY [address] [facility] [address] [place] [address] 08/25/2024 1:30 PM FIELD SERVICE ENGINEER Appointment [facility] 2nd Fl [address] [place] [address] Aviva Humphries MD [address] [facility] [address] [place] [address] Infusion Chair 1, 2nd Floor [place] 09/01/2024 10:45 AM FIELD SERVICE ENGINEER Appointment [facility] Nuclear Medicine [address] [place] [address] [id number] Edilia Pettit, CHELY [address] [facility] [address] [place] [address] documented as of this encounter Visit Diagnoses Not on filedocumented in this encounter Care Teams Congressional District Aide Relationship Specialty Start Date End Date Shilo Soares MD [address] [place] [address] PCP - General Internal Medicine 04/24/23 documented as of this encounter
--- OUTSIDE RECORDS SUMMARY | 2024-07-26 23:42 | XMS_ITS | Encounter Summary ---
Author Organization [facility] Address [address] [place] [address] Care Team Providers Care Complaint Evaluation Supervisor Name Role Phone Shilo Soares MD Primary Care Provider [phone] Encounter Details Date Type Department Care Team (Late Contact Info) Description 07/22/2024 External Device Data STL ABSTRACTION Provider, Abstract [...] (Late Contact Info) Description 08/04/2024 1:00 PM FLYING II INSTRUCTOR Appointment [facility] 2nd [place] [address] [place] [address] Aviva Humphries MD [address] [place] [address] Infusion Chair 5, 2nd Floor [place] 08/25/2024 1:00 PM FLYING II INSTRUCTOR Office Visit [facility] Gynecologic Oncology Hall [address] [place] [address] Edilia Pettit, CHELY [address] [facility] [address] [place] [address] 08/25/2024 1:30 PM FLYING II INSTRUCTOR Appointment [facility] 2nd Fl [address] [place] [address] Aviva Humphries MD [address] [facility] [address] [place] [address] Infusion Chair 1, 2nd Floor [place] 09/01/2024 10:45 AM FLYING II INSTRUCTOR Appointment [facility] Nuclear Medicine [address] [place] [address] [id number] Edilia Pettit, CHELY [address] [facility] [address] [place] [address] documented as of this encounter Visit Diagnoses Not on filedocumented in this encounter Care Teams Complaint Evaluation Supervisor Relationship Specialty Start Date End Date Shilo Soares MD [address] [place] [address] PCP - General Internal Medicine 04/24/23 documented as of this encounter
--- OUTSIDE RECORDS SUMMARY | 2024-07-26 23:42 | XMS_ITS | Encounter Summary ---
Author Organization [facility] Address [address] [place] [address] Care Team Providers Care Spinneret Cleaner Name Role Phone Shilo Soares MD Primary Care Provider [phone] Encounter Details Date Type Department Care Team (Late Contact Info) Description 07/20/2024 External Device Data STL ABSTRACTION Provider, Abstract [...] (Late Contact Info) Description 08/04/2024 1:00 PM AWNING HANGER SUPERVISOR Appointment [facility] 2nd Pr [address] [place] [address] Aviva Humphries MD [address] [place] [address] Infusion Chair 5, 2nd Floor [place] 08/25/2024 1:00 PM AWNING HANGER SUPERVISOR Office Visit [facility] Gynecologic Oncology Hall [address] [place] [address] Edilia Pettit, CHELY [address] [place] [address] 08/25/2024 1:30 PM AWNING HANGER SUPERVISOR Appointment [facility] 2nd Fl [address] [place] [address] Aviva Humphries MD [address] [place] [address] Infusion Chair 1, 2nd Floor [place] 09/01/2024 10:45 AM AWNING HANGER SUPERVISOR Appointment [facility] Nuclear Medicine [address] [place] [address] [id number] Edilia Pettit, CHELY [address] [facility] [address] [place] [address] documented as of this encounter Visit Diagnoses Not on filedocumented in this encounter Care Teams Spinneret Cleaner Relationship Specialty Start Date End Date Shilo Soares MD [address] [place] [address] PCP - General Internal Medicine 04/24/23 documented as of this encounter
--- OUTSIDE RECORDS SUMMARY | 2024-07-26 23:42 | XMS_ITS | Encounter Summary ---
Author Organization [facility] Address [address] [place] [address] Care Team Providers Care Finger Cobbler Name Role Phone Shilo Soares MD Primary Care Provider [phone] Encounter Details Date Type Department Care Team ([facility] Contact Info) Description 07/01/2024 Abstract [facility] Gynecologic Oncology Hall [address] [facility] [address] [place] [address] Edilia Pettit NP [address] [facility] [address] [place] [address] Social History Tobacco Use Types Packs/Day Years [...] (Late Contact Info) Description 08/04/2024 1:00 PM BEAM DYER OPERATOR Appointment [facility] Center 2nd Fl [address] [place] [address] Aviva Humphries MD [address] [place] [address] Infusion Chair 5, 2nd Floor Hall 08/25/2024 1:00 PM BEAM DYER OPERATOR Office Visit [facility] Gynecologic Oncology Hall [address] [facility] [facility] [address] [place] [address] Edilia Pettit NP [address] [facility] [address] [place] [address] 08/25/2024 1:30 PM BEAM DYER OPERATOR Appointment [facility] [address] [place] [address] Aviva Humphries MD [address] [place] [address] Infusion Chair 1, 2nd Floor [place] 09/01/2024 10:45 AM BEAM DYER OPERATOR Appointment [facility] Nuclear Medicine [address] [place] [address] [id number] Edilia Pettit, CHELY [address] [facility] [address] [place] [address] documented as of this encounter Visit Diagnoses Not on filedocumented in this encounter Care Teams Finger Cobbler Relationship Specialty Start Date End Date Shilo Soares MD [address] [place] [address] PCP - General Internal Medicine 04/24/23 documented as of this encounter
--- OUTSIDE RECORDS SUMMARY | 2024-07-26 23:42 | XMS_ITS | Encounter Summary ---
Author Organization [facility] Address [address] [place] [address] Care Team Providers Care Pinion Polisher Name Role Phone Shilo Soares MD Primary Care Provider [phone] Encounter Details Date Type Department Care Team (Late Contact Info) Description 07/07/2024 External Device Data STL ABSTRACTION Provider, Abstract [...] (Late Contact Info) Description 08/04/2024 1:00 PM ETHYLBENZENE OXIDIZER Appointment [facility] 2nd [place] [address] [place] [address] Aviva Humphries MD [address] [place] [address] Infusion Chair 5, 2nd Floor Hall 08/25/2024 1:00 PM ETHYLBENZENE OXIDIZER Office Visit [facility] Gynecologic Oncology Hall [address] [place] [address] Edilia Pettit, CHELY [address] [address] [place] [address] 08/25/2024 1:30 PM ETHYLBENZENE OXIDIZER Appointment [facility] 2nd Fl [address] [place] [address] Aviva Humphries MD [address] [place] [address] Infusion Chair 1, 2nd Floor [place] 09/01/2024 10:45 AM ETHYLBENZENE OXIDIZER Appointment [facility] Nuclear Medicine [address] [place] [address] [id number] Edilia Pettit, CEHLY [address] [facility] [address] [place] [address] documented as of this encounter Visit Diagnoses Not on filedocumented in this encounter Care Teams Pinion Polisher Relationship Specialty Start Date End Date Shilo Soares MD [address] [place] [address] PCP - General Internal Medicine 04/24/23 documented as of this encounter
--- OUTSIDE RECORDS SUMMARY | 2024-07-26 23:42 | XMS_ITS | Encounter Summary ---
Author Organization [facility] Address [address] [place] [address] Care Team Providers Care Mice Raiser Name Role Phone Shilo Soares MD Primary Care Provider [phone] Encounter Details Date Type Department Care Team (Late Contact Info) Description 07/18/2024 External Device Data STL ABSTRACTION Provider, Abstract [...] (Late Contact Info) Description 08/04/2024 1:00 PM PLANT OPERATIONS WORKER Appointment [facility] 2nd De [address] [place] [address] Aviva Humphries MD [address] [place] [address] Infusion Chair 5, 2nd Floor Hall 08/25/2024 1:00 PM PLANT OPERATIONS WORKER Office Visit [facility] Gynecologic Oncology Hall [address] [place] [address] Edilia Pettit, CHELY [address] [facility] [address] [place] [address] 08/25/2024 1:30 PM PLANT OPERATIONS WORKER Appointment [facility] 2nd Fl [address] [place] [address] Aviva Humphries MD [address] [facility] [address] [place] [address] Infusion Chair 1, 2nd Floor [place] 09/01/2024 10:45 AM PLANT OPERATIONS WORKER Appointment [facility] Nuclear Medicine [address] [place] [address] [id number] Edilia Pettit, CHELY [address] [facility] [address] [place] [address] documented as of this encounter Visit Diagnoses Not on filedocumented in this encounter Care Teams Mice Raiser Relationship Specialty Start Date End Date Shilo Soares MD [address] [place] [address] PCP - General Internal Medicine 04/24/23 documented as of this encounter
--- OUTSIDE RECORDS SUMMARY | 2024-07-26 23:42 | XMS_ITS | Encounter Summary ---
Author Organization [facility] Address [address] [place] [address] Care Team Providers Care Delivery Of Shopping News Name Role Phone Shilo Soares MD Primary Care Provider [phone] Encounter Details Date Type Department Care Team (Late Contact Info) Description 07/24/2024 External Device Data STL ABSTRACTION Provider, Abstract [...] (Late Contact Info) Description 08/04/2024 1:00 PM CASER UP Appointment [facility] 2nd [place] [address] [place] [address] Aviva Humphries MD [address] [place] [address] Infusion Chair 5, 2nd Floor Hall 08/25/2024 1:00 PM CASER UP Office Visit [facility] Gynecologic Oncology Hall [address] [place] [address] Edilia Pettit, CHELY [address] [address] [place] [address] 08/25/2024 1:30 PM CASER UP Appointment [facility] 2nd Fl [address] [place] [address] Aviva Humphries MD [address] [facility] [address] [place] [address] Infusion Chair 1, 2nd Floor [place] 09/01/2024 10:45 AM CASER UP Appointment [facility] Nuclear Medicine [address] [place] [address] [id number] Edilia Pettit, CHELY [address] [facility] [address] [place] [address] documented as of this encounter Visit Diagnoses Not on filedocumented in this encounter Care Teams Delivery Of Shopping News Relationship Specialty Start Date End Date Shilo Soares MD [address] [place] [address] PCP - General Internal Medicine 04/24/23 documented as of this encounter
--- OUTSIDE RECORDS SUMMARY | 2024-07-26 23:42 | XMS_ITS | Encounter Summary ---
Author Organization [facility] Address [address] [place] [address] Care Team Providers Care Systems Program Manager Name Role Phone Shilo Soares MD Primary Care Provider [phone] Encounter Details Date Type Department Care Team (Latest Contact Info) Description 06/27/2024 Orders Only [facility] Gynecologic Oncology Hall [address] [place] [address] Edilia Pettit, CHELY [address] [facility] [address] [place] [address] Chemotherapy-induced thrombocytopenia Social History Tobacco Use Types Packs/Day Years [...] Encounters Date Type Department Care Team (Late st Contact Info) Description 08/04/2024 1:00 PM AUTOMATIC MACHINE ATTENDANT Appointment [facility] 2nd Fl [address] [place] [address] Aviva Humphries MD [address] [place] [address] Infusion Chair 5, 2nd Floor [place] 08/25/2024 1:00 PM AUTOMATIC MACHINE ATTENDANT Office Visit [facility] Gynecologic Oncology Hall [address] [place] [address] Edilia Pettit, CHELY [address] [place] [address] 08/25/2024 1:30 PM AUTOMATIC MACHINE ATTENDANT Appointment [facility] Infusion Center [facility] [address] [place] [address] Aviva Humphries MD [address] [place] [address] Infusion Chair 1, 2nd Floor [place] 09/01/2024 10:45 AM AUTOMATIC MACHINE ATTENDANT Appointment [facility] Nuclear Medicine [address] [place] [address] [id number] Edilia Pettit, CHELY [address] [facility] [address] [place] [address] documented as of this encounter Visit Diagnoses Diagnosis Chemotherapy-induced thrombocytopenia Other secondary thrombocytopenia documented in this encounter Care Teams Systems Program Manager Relationship Specialty Start Date End Date Shilo Soares MD [address] [place] [address] PCP - General Internal Medicine 04/24/23 documented as of this encounter
--- OUTSIDE RECORDS SUMMARY | 2024-07-26 23:42 | XMS_ITS | Encounter Summary ---
Author Organization [facility] Address [address] [place] [address] Care Team Providers Care Construction Coordinator Name Role Phone Shilo Soares MD Primary Care Provider [phone] Reason for Visit * Reason Onset Date Comments Medication Refill 06/30/2024 Encounter Details Date Type Department Care Team (Late st Contact Info) Description 06/30/2024 Refill [facility] Gynecologic Oncology Hall [address] [facility] [address] [place] [address] Edilia Pettit NP [address] [facility] [address] [place] [address] Social History Tobacco Use Types [...] encounter Miscellaneous Notes * Telephone Encounter - Edilia Pettit NP - 06/30/2024 11:20 AM CST Please take Olaparib PO 200mg BID daily. CHEPE Alas- PRODUCTION MACHINE SHOP SUPERVISOR Oncology OR DIRECTOR FINANCE documented in this encounter Plan of Treatment Upcoming Encounters Date Type Department Care Team (Late st Contact Info) Description 08/04/2024 1:00 PM SENIOR DIRECTOR FINANCE Appointment Randy [facility] Infusion Center 2nd Pa [address] [place] [address] Aviva Humphries MD [address] [facility] [address] [place] [address] Infusion Chair 5, 2nd Floor Hall 08/25/2024 1:00 PM SENIOR DIRECTOR FINANCE Office Visit [facility] Gynecologic Oncology Hall [address] [address] Edilia Pettit NP [address] [address] 08/25/2024 1:30 PM SENIOR DIRECTOR FINANCE Appointment [facility] Center 2nd Fl [address] [place] [address] Aviva Humphries MD [address] [facility] [address] [facility] [place] [address] Infusion Chair 1, 2nd Floor Hall 09/01/2024 10:45 AM SENIOR DIRECTOR FINANCE Appointment [facility] Nuclear Medicine [address] [place] [address] [id number] Edilia Pettit NP [address] [address] documented as of this encounter Visit Diagnoses Not on filedocumented in this encounter Care Teams Construction Coordinator Relationship Specialty Start Date End Date Shilo Soares MD [address] [place] [address] PCP - General Internal Medicine 04/24/23 documented as of this encounter
--- OUTSIDE RECORDS SUMMARY | 2024-07-26 23:42 | XMS_ITS | Encounter Summary ---
Author Organization [facility] Address [address] [place] [address] Care Team Providers Care Glass Technologist Name Role Phone Shilo Soares MD Primary Care Provider [phone] Encounter Details Date Type Department Care Team (Late Contact Info) Description 07/01/2024 External Device Data STL ABSTRACTION Provider, Abstract [...] (Late Contact Info) Description 08/04/2024 1:00 PM CORE MANAGER Appointment [facility] 2nd Mt [address] [place] [address] Aviva Humphries MD [address] [place] [address] Infusion Chair 5, 2nd Floor Hall 08/25/2024 1:00 PM CORE MANAGER Office Visit [facility] Gynecologic Oncology Hall [address] [place] [address] Edilia Pettit, CHELY [address] [place] [address] 08/25/2024 1:30 PM CORE MANAGER Appointment [facility] 2nd Fl [address] [place] [address] Aviva Humphries MD [address] [place] [address] Infusion Chair 1, 2nd Floor [facility] 09/01/2024 10:45 AM CORE MANAGER Appointment Randy [facility] Nuclear Medicine [address] [place] [address] [id number] Edilia Pettit, CHELY [address] [facility] [address] [place] [address] documented as of this encounter Visit Diagnoses Not on filedocumented in this encounter Care Teams Glass Technologist Relationship Specialty Start Date End Date Shilo Soares MD [address] [place] [address] PCP - General Internal Medicine 04/24/23 documented as of this encounter
--- OUTSIDE RECORDS SUMMARY | 2024-07-26 23:42 | XMS_ITS | Encounter Summary ---
Author Organization [facility] Address [address] [place] [address] Care Team Providers Care Payment Rep Name Role Phone Shilo Soares MD Primary Care Provider [phone] Reason for Visit * Reason Comments Follow Up Nurse navigation Encounter Details Date Type Department Care Team ([facility] st Contact Info) Description 07/18/2024 Chart Note [facility] Oncology Patient Navigation [address] [place] [address] Danyell Pablo, RN Follow Up (Nurse navigation ) Social History Tobacco Use Types Packs/Day Years [...] on file documented as of this encounter Progress Notes * Danyell Pablo, RN - 07/22/2024 2:19 PM CST Cancer Center Services Note: November asked about resources for skin and makeup care. Checked and email sent with info on Virtual Workshops Look Good Feel Better. Will continue to assist as needed. Danyell Pablo RN, MSN Oncology Nurse Navigator KEEPER documented in this encounter Plan of Treatment Upcoming Encounters Date Type Department Care Team (Late st Contact Info) Description 08/04/2024 1:00 PM TIMEKEEPER Appointment [facility] 2nd Fl [address] [place] [address] Aviva Humphries MD [address] [place] [address] Infusion Chair 5, 2nd Floor Hall 08/25/2024 1:00 PM TIMEKEEPER Office Visit [facility] Gynecologic Oncology [place] [address] [facility] [address] [place] [address] Edilia Pettit NP [address] [facility] [address] [place] [address] 08/25/2024 1:30 PM TIMEKEEPER Appointment [facility] 2nd Fl [address] [place] [address] Aviva Humphries MD [address] [facility] [address] [place] [address] Infusion Chair 1, 2nd Floor Hall 09/01/2024 10:45 AM TIMEKEEPER Appointment [facility] Nuclear Medicine [address] [place] [address] [id number] Edilia Pettit, CHELY [address] [facility] [address] [place] [address] documented as of this encounter Visit Diagnoses Not on filedocumented in this encounter Care Teams Payment Rep Relationship Specialty Start Date End Date Shilo Soares MD [address] [facility] [address] [place] [address] PCP - General Internal Medicine 04/24/23 documented as of this encounter
--- OUTSIDE RECORDS SUMMARY | 2024-07-26 23:42 | XMS_ITS | Encounter Summary ---
Author Organization [facility] Address [address] [place] [address] Care Team Providers Care Music Therapist [employer] Name Role Phone Shilo Soares MD Primary Care Provider [phone] Encounter Details Date Type Department Care Team (Late Contact Info) Description 07/23/2024 External Device Data STL ABSTRACTION Provider, Abstract [...] (Late Contact Info) Description 08/04/2024 1:00 PM MOTOR EQUIPMENT LIEUTENANT Appointment [facility] 2nd Ga [address] [place] [address] Aviva Humphries MD [address] [place] [address] Infusion Chair 5, 2nd Floor Hall 08/25/2024 1:00 PM MOTOR EQUIPMENT LIEUTENANT Office Visit [facility] Gynecologic Oncology Hall [address] [place] [address] Edilia Pettit, CHELY [address] [place] [address] 08/25/2024 1:30 PM MOTOR EQUIPMENT LIEUTENANT Appointment [facility] 2nd Fl [address] [place] [address] Aviva Humphries MD [address] [address] [facility] [address] [place] [address] Infusion Chair 1, 2nd Floor [place] 09/01/2024 10:45 AM MOTOR EQUIPMENT LIEUTENANT Appointment Randy [facility] Nuclear Medicine [address] [place] [address] [id number] Edilia Pettit, CHELY [address] [facility] [address] [place] [address] documented as of this encounter Visit Diagnoses Not on filedocumented in this encounter Care Teams Music Therapist [employer] Relationship Specialty Start Date End Date Shilo Soares MD [address] [place] [address] PCP - General Internal Medicine 04/24/23 documented as of this encounter
--- OUTSIDE RECORDS SUMMARY | 2024-07-26 23:42 | XMS_ITS | Encounter Summary ---
Author Organization [employer] Address [address] [place] [address] Care Team Providers Care Lcac Radar Operator/Navigator Name Role Phone Shilo Soares MD Primary Care Provider [phone] Reason for Visit * Tx/Med Therapy Plan Auth (Routine) - Authorized Specialty Diagnoses / Procedures Referred By Alison gomez Referred To Contact Diagnoses Malignant neoplasm of ovary, unspecified laterality Encounter for antineoplastic chemotherapy Nausea Procedures [place] PACLITAXEL INJECTION NJ CARBOPLATIN INJECTION NJ INJ MVASI 10 MG NJ FOSAPREPITANT INJECTION NJ PALONOSETRON HCL NJ DEXAMETHASONE SODIUM PHOS NJ METHYLPREDNISOLONE INJECTION NJ DIPHENHYDRAMINE HCL INJECTIO NJ INJECTION, FAMOTIDINE, 20 MG TAXOL, CARBO, MVASI, EMEND, ALOXI, DECADRON, SOLU MEDROL, BENADRYL, PEPCID Aviva Humphries MD [address] [facility] [address] [place] [address] [facility] Infusion [place] 2nd Floor [place] [address] [place] [address] Referral ID Status Reason Start Date Expiration Date V isits Requested Visits Authorized [id number] Authorized 05/20/2023 05/26/2025 99 99 Encounter Details Date Type Department Care Team (Latest Contact Info) Description 07/14/2024 11:58 AM CLEANING HANDYMAN - 07/14/2024 11:59 PM [facility] Hospital Encounter Randy [facility] Infusion Center 2nd Fl [address] [place] [address] Aviva Humphries MD [address] [facility] [address] [place] [address] Infusion Chair 10, 2nd Floor Hall Discharge Disposition: Home or Self Care Social History Tobacco Use Types Packs/Day Years [...] Sign Reading Time Taken Comments Blood Pressure 159/75 07/14/2024 12:30 PM CLEANING HANDYMAN Pulse 87 07/14/2024 12:28 PM CLEANING HANDYMAN Temperature 36.1 ??C (97 ??F) 07/14/2024 12:28 PM CLEANING HANDYMAN Respiratory Rate 20 07/14/2024 12:28 PM CLEANING HANDYMAN Oxygen Saturation - - Inhaled Oxygen Concentration - - Weight - - Height - - Body Mass Index - - documented in this encounter Medications at Time of Discharge Medication Sig Dispensed Refills Start Date End Date olaparib 100 mg tablet Take 2 Tablets (200 mg) by mouth 2 times daily. 120 Tablet 06/30/2024 07/30/2024 losartan (COZAAR) 50 mg tablet Take 50 mg by mouth daily. 12/06/2023 lidocaine-prilocaine (EMLA) 2.5-2.5 % Cream APPLY A THIN LAYER OVER PORT SITE 30-45 MINUTES PRIOR TO CHEMOTHERAPY. 30 Gram 12/14/2023 loratadine (CLARITIN) 10 mg tablet Take 10 mg by mouth daily. pyridoxine HCl, vitamin B6, (PYRIDOXINE, VITAMIN B6, ORAL) Take by mouth. cholecalciferol, vitamin D3, 350 mcg (14,000 unit) Wafer Take by mouth. docusate sodium (COLACE ORAL) Take by mouth. Advair Diskus 250-50 mcg/dose disk inhaler 1 Puff by See Admin Instructions route see administration instructions. 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 30 Tablet 3 05/22/2023 prochlorperazine maleate (COMPAZINE) 10 mg tablet Take 1 Tablet (10 mg) by mouth every 6 hours as needed for Nausea/Emesis. 30 Tablet 3 05/22/2023 albuterol sulfate HFA 90 mcg/actuation aerosol inhaler Take 1 Puff by inhalation every 6 hours as needed. 04/08/2021 atorvastatin (LIPITOR) 20 mg tablet Take 20 mg by mouth daily at bedtime. 02/26/2021 fluticasone propionate (FLONASE) 50 mcg/spray [place], Suspension nasal inhaler Administer 2 Sprays in each nostril daily. omega-3 fatty acids-fish oil 300-1,000 mg Capsule Take 2 Capsules by mouth daily. documented as of this encounter Progress Notes * Ashlee Miller RN - 07/14/2024 12:30 PM CST November [facility] Chemotherapy Infusion complete, pt tolerated without complaints of discomfort at this time. Denies any hypersensitivity reactions. Port flushed with compatible IV solution, then flushed with saline and heparin per [facility] policy. Port deaccessed. Prior to chemotherapy administration:reviewed with pt/family the goal of chemotherapy regimen, the method of administration, and potential side effects. Instructed pt/family to notify physician or go to ED if fever 100.5 F or higher, chills, or any change in condition. Pt/family verbalized understanding. Discharged home. NING HANDYMAN documented in this encounter Plan of Treatment Upcoming Encounters Date Type Department Care Team (Late st Contact Info) Description 08/04/2024 1:00 PM CLEANING HANDYMAN Appointment Randy [facility] 2nd Fl [address] [place] [address] Aviva Humphries MD [address] [facility] [address] [place] [address] Infusion Chair 5, 2nd Floor Hall 08/25/2024 1:00 PM CLEANING HANDYMAN Office Visit [facility] Gynecologic Oncology [place] [address] [facility] [address] [place] [address] Edilia Pettit, CHELY [address] [facility] [address] [place] [address] 08/25/2024 1:30 PM CLEANING HANDYMAN Appointment [facility] Infusion Center [facility] [address] [place] [address] Aviva Humphries MD [address] [facility] [address] [place] [address] Infusion Chair 1, 2nd Floor Hall 09/01/2024 10:45 AM CLEANING HANDYMAN Appointment [facility] Nuclear Medicine [address] [place] [address] [id number] Edilia Pettit, CHELY [address] [facility] [address] [place] [phone] documented as of this encounter Visit Diagnoses Diagnosis Malignant neoplasm of ovary, unspecified laterality- Primary documented in this encounter Administered Medications Inactive Administered Medications - up to 3 most recent administrations Medication Order MAR Action Action Date Dose Rate Site bevacizumab-awwb (MVASI) 773 mg in sodium chloride 0.9% 100 mL IVPB 773 mg (rounded from 772.5 mg = 15 mg/kg ? 51.5 kg Treatment plan Recorded weight), IV, ONE TIME ONLY, 1 dose, On Peace 07/14/24 at 1215, Routine New Bag 07/14/2024 12:35 PM CLEANING HANDYMAN 773 mg 291.8 mL/hr heparin, porcine (pf) 10 unit/mL IV syringe 50 Units 50 Units, IV, ONE TIME ONLY, 1 dose, On Peace 07/14/24 at 1245, Routine Given 07/14/2024 1:05 PM CLEANING HANDYMAN 50 Units documented in this encounter Care Teams Lcac Radar Operator/Navigator Relationship Specialty Start Date End Date Shilo Soares MD [address] [place] [address] PCP - General Internal Medicine 04/24/23 documented as of this encounter
--- OUTSIDE RECORDS SUMMARY | 2024-07-26 23:42 | XMS_ITS | Encounter Summary ---
Author Organization [facility] Address [address] [place] [address] Care Team Providers Care Mine Safety Director Name Role Phone Shilo Soares MD Primary Care Provider [phone] Encounter Details Date Type Department Care Team (Late Contact Info) Description 07/16/2024 External Device Data STL ABSTRACTION Provider, Abstract [...] (Late Contact Info) Description 08/04/2024 1:00 PM SIGN ERECTOR AND REPAIRER Appointment [facility] 2nd Wy [address] [place] [address] Aviva Humphries MD [address] [place] [address] Infusion Chair 5, 2nd Floor Hall 08/25/2024 1:00 PM SIGN ERECTOR AND REPAIRER Office Visit [facility] Gynecologic Oncology Hall [address] [place] [address] Edilia Pettit, CHELY [address] [place] [address] 08/25/2024 1:30 PM SIGN ERECTOR AND REPAIRER Appointment [facility] 2nd Fl [address] [place] [address] Aviva Humphries MD [address] [facility] [facility] [address] [facility] [address] [place] [address] Infusion Chair 1, 2nd Floor [place] 09/01/2024 10:45 AM SIGN ERECTOR AND REPAIRER Appointment Randy [facility] Nuclear Medicine [address] [place] [address] [id number] Edilia Pettit, CHELY [address] [facility] [address] [place] [address] documented as of this encounter Visit Diagnoses Not on filedocumented in this encounter Care Teams Mine Safety Director Relationship Specialty Start Date End Date Shilo Soares MD [address] [place] [address] PCP - General Internal Medicine 04/24/23 documented as of this encounter
--- OUTSIDE RECORDS SUMMARY | 2024-07-26 23:42 | XMS_ITS | Encounter Summary ---
Author Organization [facility] Address [address] [place] [address] Care Team Providers Care Auto Winder Name Role Phone Shilo Soares MD Primary Care Provider [phone] Encounter Details Date Type Department Care Team (Late Contact Info) Description 06/28/2024 External Device Data STL ABSTRACTION Provider, Abstract [...] (Late Contact Info) Description 08/04/2024 1:00 PM RECLAMATION FURNACE OPERATOR Appointment [facility] 2nd Wa [address] [place] [address] Aviva Humphries MD [address] [place] [address] Infusion Chair 5, 2nd Floor Hall 08/25/2024 1:00 PM RECLAMATION FURNACE OPERATOR Office Visit [facility] Gynecologic Oncology Hall [address] [place] [address] Edilia Pettit, CHELY [address] [place] [address] 08/25/2024 1:30 PM RECLAMATION FURNACE OPERATOR Appointment [facility] 2nd Fl [address] [place] [address] Aviva Humphries MD [address] [facility] [address] [facility] [address] [place] [address] Infusion Chair 1, 2nd Floor [place] 09/01/2024 10:45 AM RECLAMATION FURNACE OPERATOR Appointment Randy [facility] Nuclear Medicine [address] [place] [address] [id number] Edilia Pettit, CHELY [address] [facility] [address] [place] [address] documented as of this encounter Visit Diagnoses Not on filedocumented in this encounter Care Teams Auto Winder Relationship Specialty Start Date End Date Shilo Soares MD [address] [place] [address] PCP - General Internal Medicine 04/24/23 documented as of this encounter
--- OUTSIDE RECORDS SUMMARY | 2024-07-26 23:42 | XMS_ITS | Encounter Summary ---
Author Organization [facility] Address [address] [place] [address] Care Team Providers Care Traffic Inspector Name Role Phone Shilo Soares MD Primary Care Provider [phone] Encounter Details Date Type Department Care Team (Late Contact Info) Description 07/11/2024 External Device Data STL ABSTRACTION Provider, Abstract [...] (Late Contact Info) Description 08/04/2024 1:00 PM PRESIDENT + PUBLISHER Appointment [facility] 2nd Al [address] [place] [address] Aviva Humphries MD [address] [place] [address] Infusion Chair 5, 2nd Floor Hall 08/25/2024 1:00 PM PRESIDENT + PUBLISHER Office Visit [facility] Gynecologic Oncology Hall [address] [place] [address] Edilia Pettit, CHELY [address] [address] [place] [address] 08/25/2024 1:30 PM PRESIDENT + PUBLISHER Appointment [facility] 2nd Fl [address] [place] [address] Aviva Humphries MD [address] [address] [facility] [address] [place] [address] Infusion Chair 1, 2nd Floor [place] 09/01/2024 10:45 AM PRESIDENT + PUBLISHER Appointment Randy [facility] Nuclear Medicine [address] [place] [address] [id number] Edilia Pettit, CHELY [address] [facility] [address] [place] [address] documented as of this encounter Visit Diagnoses Not on filedocumented in this encounter Care Teams Traffic Inspector Relationship Specialty Start Date End Date Shilo Soares MD [address] [place] [address] PCP - General Internal Medicine 04/24/23 documented as of this encounter
--- OUTSIDE RECORDS SUMMARY | 2024-07-26 23:42 | XMS_ITS | Encounter Summary ---
Author Organization [facility] Address [address] [place] [address] Care Team Providers Care Office Administrator Name Role Phone Shilo Soares MD Primary Care Provider [phone] Encounter Details Date Type Department Care Team (Late Contact Info) Description 07/09/2024 External Device Data STL ABSTRACTION Provider, Abstract [...] (Late Contact Info) Description 08/04/2024 1:00 PM COLORIST PHOTOGRAPHY Appointment [facility] [address] [place] [address] Aviva Humphries MD [address] [place] [address] Infusion Chair 5, 2nd Floor Hall 08/25/2024 1:00 PM COLORIST PHOTOGRAPHY Office Visit [facility] Gynecologic Oncology Hall [address] [place] [address] Edilia Pettit, CHELY [address] [place] [address] 08/25/2024 1:30 PM COLORIST PHOTOGRAPHY Appointment [facility] 2nd Fl [address] [place] [address] Aviva Humphries MD [address] [place] [address] Infusion Chair 1, 2nd Floor [place] 09/01/2024 10:45 AM COLORIST PHOTOGRAPHY Appointment [facility] Nuclear Medicine [address] [place] [address] [id number] Edilia Pettit, CHELY [address] [facility] [address] [place] [address] documented as of this encounter Visit Diagnoses Not on filedocumented in this encounter Care Teams Office Administrator Relationship Specialty Start Date End Date Shilo Soares MD [address] [place] [address] PCP - General Internal Medicine 04/24/23 documented as of this encounter
--- OUTSIDE RECORDS SUMMARY | 2024-07-26 23:42 | XMS_ITS | Encounter Summary ---
Author Organization [facility] Address [address] [place] [address] Care Team Providers Care Power Hammer Operator Name Role Phone Shilo Soares MD Primary Care Provider [phone] Encounter Details Date Type Department Care Team (Late Contact Info) Description 06/30/2024 External Device Data STL ABSTRACTION Provider, Abstract [...] (Late Contact Info) Description 08/04/2024 1:00 PM STRUCTURAL IRON ERECTOR Appointment [facility] [address] [place] [address] Aviva Humphries MD [address] [place] [address] Infusion Chair 5, 2nd Floor Hall 08/25/2024 1:00 PM STRUCTURAL IRON ERECTOR Office Visit [facility] Gynecologic Oncology Hall [address] [place] [address] Edilia Pettit, CHELY [address] [place] [address] 08/25/2024 1:30 PM STRUCTURAL IRON ERECTOR Appointment [facility] 2nd Fl [address] [place] [address] Aviva Humphries MD [address] [place] [address] Infusion Chair 1, 2nd Floor [place] 09/01/2024 10:45 AM STRUCTURAL IRON ERECTOR Appointment [facility] Nuclear Medicine [address] [place] [address] [id number] Edilia Pettit, CHELY [address] [place] [address] documented as of this encounter Visit Diagnoses Not on filedocumented in this encounter Care Teams Power Hammer Operator Relationship Specialty Start Date End Date Shilo Soares MD [address] [place] [address] PCP - General Internal Medicine 04/24/23 documented as of this encounter
--- OUTSIDE RECORDS SUMMARY | 2024-07-26 23:42 | XMS_ITS | Encounter Summary ---
Author Organization [facility] Address [address] [place] [address] Care Team Providers Care Rubber Roller Grinder Operator Name Role Phone Shilo Soares MD Primary Care Provider [phone] Encounter Details Date Type Department Care Team (Late Contact Info) Description 07/06/2024 External Device Data STL ABSTRACTION Provider, Abstract [...] (Late Contact Info) Description 08/04/2024 1:00 PM GRAVEL WEIGHER Appointment [facility] [place] [address] [place] [address] Aviva Humphries MD [address] [place] [address] Infusion Chair 5, 2nd Floor Hall 08/25/2024 1:00 PM GRAVEL WEIGHER Office Visit [facility] Gynecologic Oncology Hall [address] [place] [address] Edilia Pettit, CHELY [address] [facility] [address] [facility] [address] [place] [address] 08/25/2024 1:30 PM GRAVEL WEIGHER Appointment [facility] 2nd Fl [address] [place] [address] Aviva Humphries MD [address] [place] [address] Infusion Chair 1, 2nd Floor [place] 09/01/2024 10:45 AM GRAVEL WEIGHER Appointment [facility] Nuclear Medicine [address] [place] [address] [id number] Edilia Pettit, CHELY [address] [facility] [address] [place] [address] documented as of this encounter Visit Diagnoses Not on filedocumented in this encounter Care Teams Rubber Roller Grinder Operator Relationship Specialty Start Date End Date Shilo Soares MD [address] [place] [address] PCP - General Internal Medicine 04/24/23 documented as of this encounter
--- OUTSIDE RECORDS SUMMARY | 2024-07-26 23:42 | XMS_ITS | Encounter Summary ---
Author Organization [facility] Address [address] [place] [address] Care Team Providers Care Window Framer Name Role Phone Shilo Soares MD Primary Care Provider [phone] Encounter Details Date Type Department Care Team (Late Contact Info) Description 07/02/2024 External Device Data STL ABSTRACTION Provider, Abstract [...] (Late Contact Info) Description 08/04/2024 1:00 PM MAID HOUSEKEEPER Appointment [facility] [address] [place] [address] Aviva Humphries MD [address] [place] [address] Infusion Chair 5, 2nd Floor Hall 08/25/2024 1:00 PM MAID HOUSEKEEPER Office Visit [facility] Gynecologic Oncology Hall [address] [place] [address] Edilia Pettit, CHELY [address] [place] [address] 08/25/2024 1:30 PM MAID HOUSEKEEPER Appointment [facility] 2nd Fl [address] [place] [address] Aviva Humphries MD [address] [place] [address] Infusion Chair 1, 2nd Floor [place] 09/01/2024 10:45 AM MAID HOUSEKEEPER Appointment [facility] Nuclear Medicine [address] [place] [address] [id number] Edilia Pettit, CHELY [address] [facility] [address] [place] [address] documented as of this encounter Visit Diagnoses Not on filedocumented in this encounter Care Teams Window Framer Relationship Specialty Start Date End Date Shilo Soares MD [address] [place] [address] PCP - General Internal Medicine 04/24/23 documented as of this encounter
--- OUTSIDE RECORDS SUMMARY | 2024-07-26 23:42 | XMS_ITS | Encounter Summary ---
Author Organization [facility] Address [address] [place] [address] Care Team Providers Care Safety And Health Manager Name Role Phone Shilo Soares MD Primary Care Provider [phone] Encounter Details Date Type Department Care Team (Late Contact Info) Description 06/29/2024 External Device Data STL ABSTRACTION Provider, Abstract [...] (Late Contact Info) Description 08/04/2024 1:00 PM EDGERMAN Appointment [facility] 2[facility] Nd [address] [place] [address] Aviva Humphries MD [address] [place] [address] Infusion Chair 5, 2nd Floor Hall 08/25/2024 1:00 PM EDGERMAN Office Visit [facility] Gynecologic Oncology Hall [address] [place] [address] Edilia Pettit, CHELY [address] [facility] [address] [place] [address] 08/25/2024 1:30 PM EDGERMAN Appointment [facility] 2nd Fl [address] [place] [address] Aviva Humphries MD [address] [place] [address] Infusion Chair 1, 2nd Floor [place] 09/01/2024 10:45 AM EDGERMAN Appointment [facility] Nuclear Medicine [address] [place] [address] [id number] Edilia Pettit, CHELY [address] [facility] [address] [place] [address] documented as of this encounter Visit Diagnoses Not on filedocumented in this encounter Care Teams Safety And Health Manager Relationship Specialty Start Date End Date Shilo Soares MD [address] [place] [address] PCP - General Internal Medicine 04/24/23 documented as of this encounter
--- OUTSIDE RECORDS SUMMARY | 2024-07-26 23:42 | XMS_ITS | Encounter Summary ---
Author Organization [facility] Address [address] [place] [address] Care Team Providers Care Supercharge Repair Supervisor Name Role Phone Shilo Soares MD Primary Care Provider [phone] Encounter Details Date Type Department Care Team (Late Contact Info) Description 07/15/2024 External Device Data STL ABSTRACTION Provider, Abstract [...] (Late Contact Info) Description 08/04/2024 1:00 PM LITHOGRAPHED PLATE INSPECTOR Appointment [facility] 2[facility] Dc [address] [place] [address] Aviva Humphries MD [address] [place] [address] Infusion Chair 5, 2nd Floor Hall 08/25/2024 1:00 PM LITHOGRAPHED PLATE INSPECTOR Office Visit [facility] Gynecologic Oncology Hall [address] [place] [address] Edilia Pettit, CHELY [address] [place] [address] 08/25/2024 1:30 PM LITHOGRAPHED PLATE INSPECTOR Appointment [facility] 2nd Fl [address] [place] [address] Aviva Humphries MD [address] [place] [address] Infusion Chair 1, 2nd Floor [place] 09/01/2024 10:45 AM LITHOGRAPHED PLATE INSPECTOR Appointment [facility] Nuclear Medicine [address] [place] [address] [id number] Edilia Pettit, CHELY [address] [facility] [address] [place] [address] documented as of this encounter Visit Diagnoses Not on filedocumented in this encounter Care Teams Supercharge Repair Supervisor Relationship Specialty Start Date End Date Shilo Soares MD [address] [place] [address] PCP - General Internal Medicine 04/24/23 documented as of this encounter
--- OUTSIDE RECORDS SUMMARY | 2024-07-26 23:42 | XMS_ITS | Encounter Summary ---
Author Organization [facility] Address [address] [place] [address] Care Team Providers Care Chief Design Engineer Name Role Phone Shilo Soares MD Primary Care Provider [phone] Encounter Details Date Type Department Care Team (Late Contact Info) Description 07/14/2024 Orders Only [facility] Gynecologic Oncology Hall [address] [facility] [facility] [address] [place] [address] Edilia Pettit, CHELY [address] [facility] [address] [place] [address] Social History Tobacco Use Types [...] (Late Contact Info) Description 08/04/2024 1:00 PM ANTENNA SPECIALIST Appointment [facility] 2nd Fl [address] [place] [address] Aviva Humphries MD [address] [place] [address] Infusion Chair 5, 2nd Floor [place] 08/25/2024 1:00 PM ANTENNA SPECIALIST Office Visit [facility] Gynecologic Oncology Hall [address] [place] [address] Edilia Pettit, CHELY [address] [place] [address] 08/25/2024 1:30 PM ANTENNA SPECIALIST Appointment [facility] [address] [place] [address] Aviva Humphries MD [address] [place] [address] Infusion Chair 1, 2nd Floor [place] 09/01/2024 10:45 AM ANTENNA SPECIALIST Appointment [facility] Nuclear Medicine [address] [place] [address] [id number] Edilia Pettit NP [address] [facility] [address] [place] [address] documented as of this encounter Visit Diagnoses Not on filedocumented in this encounter Care Teams Chief Design Engineer Relationship Specialty Start Date End Date Shilo Soares MD [address] [place] [address] PCP - General Internal Medicine 04/24/23 documented as of this encounter
--- OUTSIDE RECORDS SUMMARY | 2024-07-26 23:42 | XMS_ITS | Clinical Summary ---
Author Organization 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 04/08/2021 Active atorvastatin (LIPITOR) 20 mg tablet Take 20 mg by mouth daily at bedtime. 02/26/2021 Active fluticasone propionate (FLONASE) 50 mcg/spray [place], Suspension nasal inhaler Administer 2 Sprays in each nostril daily. Active omega-3 fatty acids-fish oil 300-1,000 mg Capsule Take 2 Capsules by mouth daily. Active ondansetron (Zofran) 8 mg Tablet Take 1 Tablet (8 mg) by mouth every 8 hours as needed for Nausea. 30 Tablet 3 05/22/2023 Active prochlorperazine maleate (COMPAZINE) 10 mg tablet Take 1 Tablet (10 mg) by mouth every 6 hours as needed for Nausea/Emesis. 30 Tablet 3 05/22/2023 Active Advair Diskus 250-50 mcg/dose disk inhaler 1 Puff by See Admin Instructions route see administration instructions. 06/25/2023 Active Miscellaneous Medical SupplyIndication s:Malignant neoplasm of ovary, unspecified laterality,Drug- induced androgenic alopecia Cranial prosthesis DX: L64.0 1 Each 07/09/2023 Active loratadine (CLARITIN) 10 mg tablet Take 10 mg by mouth daily. Active pyridoxine HCl, vitamin B6, (PYRIDOXINE, VITAMIN B6, ORAL) Take by mouth. Active cholecalciferol, vitamin D3, 350 mcg (14,000 unit) Wafer Take by mouth. Active docusate sodium (COLACE ORAL) Take by mouth. Active lidocaine-priloc anjel (EMLA) 2.5-2.5 % Cream APPLY A THIN LAYER OVER PORT SITE 30-45 MINUTES PRIOR TO CHEMOTHERAPY. 30 Gram 12/14/2023 Active losartan (COZAAR) 50 mg tablet Take 50 mg by mouth daily. 12/06/2023 Active olaparib 100 mg tablet Take 2 Tablets (200 mg) by mouth 2 times daily. 120 Tablet 06/30/2024 07/30/20 Active olaparib (Lynparza) 100 mg tablet Take 1 Tablet (100 mg) by mouth 2 times daily. 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 Protein-calorie malnutrition, severe 08/07/2023 Ovarian cancer 05/13/2023 Cancer Staging:Clinical stage from 05/13/2023:FIGO Stage IVB- Signed by Aviva Humphries MD on 05/13/2023 Encounters Date Type Department Care Team Description 07/26/2024 External Device Data STL ABSTRACTION Provider, Abstract 07/25/2024 External Device Data STL ABSTRACTION Provider, Abstract 07/24/2024 External Device Data STL ABSTRACTION Provider, Abstract 07/23/2024 External Device Data STL ABSTRACTION Provider, Abstract 07/22/2024 External Device Data STL ABSTRACTION Provider, Abstract 07/21/2024 External Device Data STL ABSTRACTION Provider, Abstract 07/20/2024 External Device Data STL ABSTRACTION Provider, Abstract 07/19/2024 External Device Data STL ABSTRACTION Provider, Abstract 07/19/2024 External Device Data STL ABSTRACTION Provider, Abstract 07/18/2024 Chart Note [facility] On[facility] Patient Navigation [address] [place] [address] Danyell Pablo RN Follow Up (Nurse navigation ) 07/18/2024 External Device Data STL ABSTRACTION Provider, Abstract 07/17/2024 External Device Data STL ABSTRACTION Provider, Abstract 07/16/2024 External Device Data STL ABSTRACTION Provider, Abstract 07/15/2024 External Device Data STL ABSTRACTION Provider, Abstract 07/14/2024 11:58 AM TWENTY ONE DEALER - 07/14/2024 11:59 PM TWENTY ONE DEALER Hospital Encounter [facility] 2nd Fl [address] [place] [address] Aviva Humphries MD Infusion Chair 10, 2nd Floor [place] Discharge Disposition: Home or Self Care 07/14/2024 Orders Only [facility] [address] [place] [address] Edilia ePttit NP 07/14/2024 External Device Data STL ABSTRACTION Provider, Abstract 07/13/2024 External Device Data STL ABSTRACTION Provider, Abstract 07/12/2024 External Device Data STL ABSTRACTION Provider, Abstract 07/11/2024 10:00 AM TWENTY ONE DEALER Office Visit [facility] [address] [facility] [place] [address] Aviva Humphries MD Malignant neoplasm of ovary, unspecified laterality (Primary Dx); Maintenance antineoplastic chemotherapy 07/11/2024 7:45 AM TWENTY ONE DEALER - 07/11/2024 11:59 PM TWENTY ONE DEALER Hospital Encounter [facility] 2nd Fl [address] [place] [address] Aviva Humphries MD Discharge Disposition: Home or Self Care 07/11/2024 External Device Data STL ABSTRACTION Provider, Abstract 07/11/2024 Orders Only [facility] [address] [place] [address] Edilia Pettit NP Chemotherapy-induced thrombocytopenia 07/10/2024 External Device Data STL ABSTRACTION Provider, Abstract 07/09/2024 External Device Data STL ABSTRACTION Provider, Abstract 07/08/2024 External Device Data STL ABSTRACTION Provider, Abstract 07/07/2024 External Device Data STL ABSTRACTION Provider, Abstract 07/06/2024 External Device Data STL ABSTRACTION Provider, Abstract 07/05/2024 Abstract [facility] [address] [place] [address] Aviva Humphries MD 07/05/2024 Abstract [facility] [address] [place] [address] Aviva Humphries MD 07/05/2024 External Device Data STL ABSTRACTION Provider, Abstract 07/04/2024 External Device Data STL ABSTRACTION Provider, Abstract 07/04/2024 Orders Only [facility] [address] [place] [address] Edilia Pettit NP Chemotherapy-induced thrombocytopenia 07/03/2024 External Device Data STL ABSTRACTION Provider, Abstract 07/02/2024 External Device Data STL ABSTRACTION Provider, Abstract 07/01/2024 Abstract [facility] [address] [facility] [address] [place] [address] Edilia Pettit NP 07/01/2024 External Device Data STL ABSTRACTION Provider, Abstract 06/30/2024 Refill [facility] [address] [facility] [address] [place] [address] Edilia Pettit NP 06/30/2024 External Device Data STL ABSTRACTION Provider, Abstract 06/29/2024 External Device Data STL ABSTRACTION Provider, Abstract 06/28/2024 External Device Data STL ABSTRACTION Provider, Abstract 06/27/2024 External Device Data STL ABSTRACTION Provider, Abstract 06/27/2024 Orders Only [facility] [address] [place] [address] Edilia Pettit NP Chemotherapy-induced thrombocytopenia 06/26/2024 External Device Data STL ABSTRACTION Provider, Abstract 06/25/2024 External Device Data STL ABSTRACTION Provider, Abstract 06/24/2024 Orders Only [facility] [address] [facility] [address] [address] [place] [address] Edilia Pettit NP Chemotherapy-induced thrombocytopenia (Primary Dx) 06/24/2024 External Device Data STL ABSTRACTION Provider, Abstract 06/23/2024 11:52 AM TWENTY ONE DEALER - 06/23/2024 11:59 PM TWENTY ONE DEALER Hospital Encounter [facility] Infusion Center 2nd Fl [address] [place] [address] Aviva Humphries MD Infusion Chair 6, 2nd Floor [place] Discharge Disposition: Home or Self Care 06/23/2024 10:55 AM TWENTY ONE DEALER - 06/23/2024 11:59 PM TWENTY ONE DEALER Hospital Encounter [facility]fusion [facility] 2nd Fl [address] [place] [address] Aviva Humphries MD Discharge Disposition: Home or Self Care 06/23/2024 Orders Only [facility] [address] [facility] [address] [place] [address] Edilia Pettit NP Malignant neoplasm of ovary, unspecified laterality (Primary Dx) 06/23/2024 External Device Data STL ABSTRACTION Provider, Abstract 06/22/2024 External Device Data STL ABSTRACTION Provider, Abstract 06/21/2024 Telephone [facility] [address] [facility] [address] [place] [address] Aviva Humphries MD Follow Up 06/21/2024 External Device Data STL ABSTRACTION Provider, Abstract 06/20/2024 External Device Data STL ABSTRACTION Provider, Abstract 06/20/2024 Orders Only [facility] [address] [facility] [address] [place] [address] Terra Eldridge PA-C Chemotherapy-induced thrombocytopenia 06/19/2024 External Device Data STL ABSTRACTION Provider, Abstract 06/18/2024 External Device Data STL ABSTRACTION Provider, Abstract 06/17/2024 External Device Data STL ABSTRACTION Provider, Abstract 06/16/2024 External Device Data STL ABSTRACTION Provider, Abstract 06/15/2024 External Device Data STL ABSTRACTION Provider, Abstract 06/14/2024 External Device Data STL ABSTRACTION Provider, Abstract 06/13/2024 External Device Data STL ABSTRACTION Provider, Abstract 06/13/2024 Orders Only [facility] [place] [address] [facility] [address] [place] [address] Terra Eldridge PA-C Chemotherapy-induced thrombocytopenia 06/12/2024 External Device Data STL ABSTRACTION Provider, Abstract 06/12/2024 External Device Data STL ABSTRACTION Provider, Abstract 06/11/2024 External Device Data STL ABSTRACTION Provider, Abstract 06/10/2024 External Device Data STL ABSTRACTION Provider, Abstract 06/09/2024 External Device Data STL ABSTRACTION Provider, Abstract 06/08/2024 External Device Data STL ABSTRACTION Provider, Abstract 06/07/2024 Telephone [facility] [place] [address] [facility] [address] [place] [address] Terra Eldridge PA-C Abnormal Lab Results (Regarding CBC 06/06/24 - PLTs 79,000) 06/07/2024 Telephone [facility] [place] [address] [facility] [address] [place] [address] Aviva Humphries MD Lab Results 06/07/2024 Abstract [facility] [place] [address] [facility] [address] [place] [address] Aviva Humphries MD 06/07/2024 External Device Data STL ABSTRACTION Provider, Abstract 06/06/2024 External Device Data STL ABSTRACTION Provider, Abstract 06/05/2024 External Device Data STL ABSTRACTION Provider, Abstract 06/04/2024 External Device Data STL ABSTRACTION Provider, Abstract 06/03/2024 External Device Data STL ABSTRACTION Provider, Abstract 06/02/2024 11:42 AM CDT - 06/02/2024 11:59 PM CDT Hospital Encounter [facility] [address] [place] [address] Aviva Humphries MD Infusion Chair 4, 2nd Floor [place] Discharge Disposition: Home or Self Care 06/02/2024 11:30 AM CDT Office Visit [facility] [place] [address] [facility] [address] [place] [address] Terra Eldridge PA-C Maintenance antineoplastic immunotherapy (Primary Dx); Malignant neoplasm of ovary, unspecified laterality; Symptomatic anemia 06/02/2024 10:15 AM CDT - 06/02/2024 11:59 PM CDT Hospital Encounter [facility] [address] [place] [address] Aviva Humphries MD Discharge Disposition: Home or Self Care 06/02/2024 External Device Data STL ABSTRACTION Provider, Abstract 06/01/2024 Telephone [facility] [place] [address] [facility] [address] [place] [address] Edilia Pettit, CHELY Imaging Results 06/01/2024 External Device Data STL ABSTRACTION Provider, Abstract 05/31/2024 10:30 AM CDT - 05/31/2024 11:59 PM CDT Hospital Encounter [facility] [address] [place] [address] [id number] Aviva Humphries MD Discharge Disposition: Home or Self Care 05/31/2024 External Device Data STL ABSTRACTION Provider, Abstract 05/30/2024 External Device Data STL ABSTRACTION Provider, Abstract 05/29/2024 External Device Data STL ABSTRACTION Provider, Abstract 05/28/2024 External Device Data STL ABSTRACTION Provider, Abstract 05/27/2024 External Device Data STL ABSTRACTION Provider, Abstract 05/26/2024 External Device Data STL ABSTRACTION Provider, Abstract 05/25/2024 External Device Data STL ABSTRACTION Provider, Abstract 05/24/2024 External Device Data STL ABSTRACTION Provider, Abstract 05/24/2024 External Device Data STL ABSTRACTION Provider, Abstract 05/23/2024 External Device Data STL ABSTRACTION Provider, Abstract 05/22/2024 External Device Data STL ABSTRACTION Provider, Abstract 05/21/2024 External Device Data STL ABSTRACTION Provider, Abstract 05/20/2024 Telephone [facility] [place] [address] [facility] [address] [place] [address] Aviva Humphries MD biopsy f/u 05/20/2024 External Device Data STL ABSTRACTION Provider, Abstract 05/19/2024 Telephone [facility] [address] [facility] [address] [place] [address] scan results 05/19/2024 External Device Data STL ABSTRACTION Provider, Abstract 05/18/2024 2:04 PM CDT - 05/18/2024 11:59 PM CDT Hospital Encounter [facility] CT Scan [place] [address] [facility] [address] [place] [address] Aviva Humphries MD Discharge Disposition: Home or Self Care 05/18/2024 External Device Data STL ABSTRACTION Provider, Abstract 05/17/2024 External Device Data STL ABSTRACTION Provider, Abstract 05/16/2024 External Device Data STL ABSTRACTION Provider, Abstract 05/15/2024 External Device Data STL ABSTRACTION Provider, Abstract 05/14/2024 External Device Data STL ABSTRACTION Provider, Abstract 05/13/2024 Orders Only 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 [address] [facility] [address] [place] [address] Edilia Pettit, CHELY 05/12/2024 Orders Only [facility] [address] [facility] [address] [place] [address] Stevie Chavarria, JANET 05/12/2024 Orders Only 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); Malignant neoplasm of ovary, unspecified laterality 05/12/2024 External Device Data STL ABSTRACTION Provider, Abstract 05/11/2024 External Device Data STL ABSTRACTION Provider, Abstract 05/10/2024 External Device Data STL ABSTRACTION Provider, Abstract 05/10/2024 External Device Data STL ABSTRACTION Provider, Abstract 05/09/2024 External Device Data STL ABSTRACTION Provider, Abstract 05/08/2024 External Device Data STL ABSTRACTION Provider, Abstract 05/07/2024 External Device Data STL ABSTRACTION Provider, Abstract 05/06/2024 External Device Data STL ABSTRACTION Provider, Abstract 05/05/2024 External Device Data STL ABSTRACTION Provider, Abstract 05/04/2024 External Device Data STL ABSTRACTION Provider, Abstract 05/03/2024 External Device Data STL ABSTRACTION Provider, Abstract 05/02/2024 Orders Only [facility] [address] [facility] [address] [place] [address] Aviva Humphries MD Malignant neoplasm of ovary, unspecified laterality (Primary Dx); Anemia in neoplastic disease 05/02/2024 External Device Data STL ABSTRACTION Provider, Abstract 05/01/2024 External Device Data STL ABSTRACTION Provider, Abstract 04/30/2024 External Device Data STL ABSTRACTION Provider, Abstract 04/29/2024 External Device Data STL ABSTRACTION Provider, Abstract 04/28/2024 External Device Data STL ABSTRACTION Provider, Abstract 04/27/2024 External Device Data STL ABSTRACTION Provider, Abstract 04/26/2024 External Device Data STL ABSTRACTION Provider, Abstract 04/26/2024 External Device Data STL ABSTRACTION Provider, Abstract from Last 3 Months Family History Medical History Relation Name Comments Diabetes Brother No Known Problems Daughter 1 No Known Problems Daughter 2 Heart Attack Father Heart Disease Father Lung Cancer Father smoked No Known Problems Grandchild x4 Unknown Maternal Aunt x3 Learning Disabilities Maternal Cousin 1 Unknown Maternal Grandfather Unknown Maternal Grandmother Heart Attack Maternal Uncle 2 Brain Aneurysm Mother Heart Attack Paternal Aunt No Known Problems Paternal Cousin x8 Heart Attack Paternal Grandmother Skin Cancer Paternal Grandmother nose, s un exposure Heart Attack Paternal Uncle 2 Allergy-severe Sister Diabetes Sister No Known Problems Son Relation Name Status Comments Brother Alive Daughter 1 Alive Daughter 2 Alive Father Grandchild x4 Alive Maternal Aunt x3 Maternal Cousin 1 Alive Maternal Cousin 2 many Alive Maternal Grandfather Maternal Grandmother Maternal Uncle 1 Maternal Uncle 2 Mother Paternal Aunt Paternal Cousin x8 Alive Paternal Grandfather Paternal Grandmother Paternal Uncle 1 Paternal Uncle 2 Sister Alive Son Alive Social History Tobacco Use Types Packs/Day Years Used Date Smoking Tobacco: Every Day Cigarettes 0.5 35 Smokeless Tobacco: Never Tobacco Cessation:Ready to Q uit: Not Asked; Counseling Given: Not Answered Alcohol Use Standard Drinks/Week Comments Not Currently [...] Comments Blood Pressure 159/75 07/14/2024 12:30 PM TWENTY ONE DEALER Pulse 87 07/14/2024 12:28 PM TWENTY ONE DEALER Temperature 36.1 ??C (97 ??F) 07/14/2024 12:28 PM TWENTY ONE DEALER Respiratory Rate 20 07/14/2024 12:28 PM TWENTY ONE DEALER Oxygen Saturation 97% 07/11/2024 9:23 AM TWENTY ONE DEALER Inhaled Oxygen Concentration - - Weight 51.9 kg (114 lb 6.4 oz) 07/11/2024 9:23 A M TWENTY ONE DEALER Height 167.6 cm (5' 6 ) 07/11/2024 9:23 AM TWENTY ONE DEALER Body Mass Index 18.46 07/11/2024 9:23 AM TWENTY ONE DEALER Plan of Treatment Upcoming Encounters Date Type Department Care Team (Late st Contact Info) Description 08/04/2024 1:00 PM TWENTY ONE DEALER Appointment [facility] [address] [place] [address] Aviva Humphries MD [address] [facility] [address] [place] [address] Infusion Chair 5, 2nd Floor [place] 08/25/2024 1:00 PM TWENTY ONE DEALER Office Visit [facility] [place] [address] [address] Edilia Pettit, CHELY [address] [address] 08/25/2024 1:30 PM TWENTY ONE DEALER Appointment [facility] [address] [place] [address] Aviva Humphries MD [address] [facility] [address] [facility] [place] [phone] Infusion Chair 1, 2nd Floor Hall 09/01/2024 10:45 AM TWENTY ONE DEALER Appointment [facility] Nuclear Medicine [address] [place] [address] [id number] Edilia Pettit, MILLER DISTILLERY [address] [address] Health Maintenance Due Date Last Done Comments PNEUMOCOCCAL VACCINE 0-64 YEARS (1 of 2 - PCV) 966 DTAP/TDAP/TD VACCINES (1 - Tdap) 11/26/1978 ZOSTER VACCINE (1 of 2) 11/26/1978 CERVICAL CANCER SCREENING 11/26/1989 BREAST CANCER SCREENING 1999 COLORECTAL SCREENING 11/26/2004 Colorectal Cancer Screening 11/26/2004 FIT-DNA Q 3 years 11/26/2004 FIT/FOBT Q 1 year 11/26/2004 Flex Sig/CT Colonography Q 5 years 11/26/2004 RSV VACCINE (60+ or ) (1 - Risk 60-74 years 1-dose series) 2019 INFLUENZA VACCINE (#1) 2024 Medical Devices Implanted Type Area Building Custodian Device Identifier Shelf Expiration Date Model / Serial / Lot Hemostat Lanette Ah Powder 3gm [id number] - [id number] Implanted:Qt y: 1 on 08/06/2023 by Aviva Humphries MD at [facility] Hemostatic N/A: Abdomen BARD DAVOL [id number] 12/06/2027 [id number] / / [id number] Hemostat Lanette Ah Powder 3gm [id number] - [id number] Implanted:Qt y: 1 on 08/06/2023 by Aviva Humphries MD at [facility] Hemostatic N/A: Abdomen BARD DAVOL [id number] 12/06/2027 [id number] / / [id number] Port- 023 Implanted:Qt y: 1 on 05/25/2023 by Casie Rajput MD Right: Chest Wall 01/07/2025 [id number] / / [id number] Description:BARD 8FR SLIM PO [place] IMPLANTED INTO RIGHT CHEST WALL ON 05/25/[address] RAJPUT Procedures Procedure Name Priority Date/Time Associated Diagnosis Comments CBC WITH DIFFERENTIAL Routine 07/20/2024 3:25 PM TWENTY ONE DEALER Maintenance antineoplastic chemotherapy DIFFERENTIAL, MANUAL Stat 07/11/2024 8:27 AM TWENTY ONE DEALER Malignant neoplasm of ovary, unspecified laterality COMPREHENSIVE METABOLIC PANEL Stat 07/11/2024 8:27 AM TWENTY ONE DEALER Malignant neoplasm of ovary, unspecified laterality CBC WITH DIFFERENTIAL Stat 07/11/2024 8:27 AM TWENTY ONE DEALER Malignant neoplasm of ovary, unspecified laterality EXTRA TUBE Stat 07/11/2024 8:26 AM TWENTY ONE DEALER URINALYSIS WITH REFLEX CULTURE Stat 07/11/2024 8:26 AM TWENTY ONE DEALER Malignant neoplasm of ovary, unspecified laterality CANCER ANTIGEN 125 Routine 07/11/2024 8: 26 AM TWENTY ONE DEALER Malignant neoplasm of ovary, unspecified laterality URINE CULTURE Stat 07/11/2024 8:26 AM TWENTY ONE DEALER CBC WITH DIFFERENTIAL Routine 06/30/2024 3:33 PM TWENTY ONE DEALER Chemotherapy-induced thrombocytopenia DIFFERENTIAL, MANUAL Stat 06/23/2024 11:46 AM TWENTY ONE DEALER Malignant neoplasm of ovary, unspecified laterality COMPREHENSIVE METABOLIC PANEL Stat 06/23/2024 11:46 AM TWENTY ONE DEALER Malignant neoplasm of ovary, unspecified laterality CBC WITH DIFFERENTIAL Stat 06/23/2024 11:46 AM TWENTY ONE DEALER Malignant neoplasm of ovary, unspecified laterality URINALYSIS WITH REFLEX CULTURE Stat 06/23/2024 11:46 AM TWENTY ONE DEALER Malignant neoplasm of ovary, unspecified laterality CANCER ANTIGEN 125 Routine 06/23/2024 11 :46 AM TWENTY ONE DEALER Malignant neoplasm of ovary, unspecified laterality CBC WITH DIFFERENTIAL Routine 06/17/2024 3:31 PM TWENTY ONE DEALER Chemotherapy-induced thrombocytopenia CBC WITH DIFFERENTIAL Routine 06/10/2024 3:29 PM CDT Chemotherapy-induced thrombocytopenia CBC WITH DIFFERENTIAL Routine 06/06/2024 3:33 PM CDT Symptomatic anemia TRANSFUSE PACKED RED BLOOD CELLS Routine 06/02/2024 2:00 PM CDT PREPARE RED BLOOD CELLS Stat 06/02/2024 12:12 PM CDT Malignant neoplasm of ovary, unspecified laterality TYPE AND SCREEN Stat 06/02/2024 12:08 PM CDT Symptomatic anemia DIFFERENTIAL, MANUAL Stat 06/02/2024 10:33 AM CDT Malignant neoplasm of ovary, unspecified laterality COMPREHENSIVE METABOLIC PANEL Stat 06/02/2024 10:33 AM CDT Malignant neoplasm of ovary, unspecified laterality CBC WITH DIFFERENTIAL Stat 06/02/2024 10:33 AM CDT Malignant neoplasm of ovary, unspecified laterality URINALYSIS WITH REFLEX CULTURE Stat 06/02/2024 10:33 AM CDT Malignant neoplasm of ovary, unspecified laterality CANCER ANTIGEN 125 Routine 06/02/2024 10 :33 AM CDT Malignant neoplasm of ovary, unspecified laterality URINE CULTURE Routine 06/02/2024 10:33 AM CDT Malignant neoplasm of ovary, unspecified laterality PET TUMOR OR INFECTION IMG W CT SKB MDTH Routine 05/31/2024 11:44 AM CDT Malignant neoplasm of ovary, unspecified laterality Pulmonary nodule CT CHEST ABDOMEN PELVIS W CONT Routine 05/18/2024 2:54 PM CDT Encounter for follow-up surveillance of ovarian cancer CBC WITH DIFFERENTIAL Routine 05/16/2024 3:32 PM CDT Anemia in neoplastic disease TRANSFUSE PACKED RED BLOOD CELLS Stat 05/12/2024 2:39 PM CDT PREPARE RED BLOOD CELLS Stat 05/12/2024 1:04 PM CDT Malignant neoplasm of ovary, unspecified laterality TYPE AND SCREEN Routine 05/12/2024 12:53 PM CDT Malignant neoplasm of ovary, unspecified laterality DIFFERENTIAL, MANUAL Stat 05/12/2024 11:38 AM CDT Malignant neoplasm of ovary, unspecified laterality URINALYSIS W/REFLEX MICROSCOPIC Stat 05/12/2024 11:38 AM CDT Malignant neoplasm of ovary, unspecified laterality COMPREHENSIVE METABOLIC PANEL Stat 05/12/2024 11:38 AM CDT Malignant neoplasm of ovary, unspecified laterality CBC WITH DIFFERENTIAL Stat 05/12/2024 11:38 AM CDT Malignant neoplasm of ovary, unspecified laterality CANCER ANTIGEN 125 Routine 05/12/2024 11 :38 AM CDT Malignant neoplasm of ovary, unspecified laterality IRON, TIBC, AND PERCENT SATURATION Routine 05/03/2024 10:23 AM CDT Malignant neoplasm of ovary, unspecified 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 FERRITIN Routine 05/03/2024 10:23 AM CDT Malignant neoplasm of ovary, unspecified 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 VITAMIN B12 AND FOLATE Routine 05/03/2024 10:23 AM CDT Malignant neoplasm of ovary, unspecified 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 from Last 3 Months Results * (ABNORMAL) CBC WITH DIFFERENTIAL (07/20/2024 3:25 PM [employer]) Only the most recent of10 resultswithin the time period is included. WBC 4.3 3.8 - 10.8 Thousand/u L [facility] RBC 3.08(L) 3.80 - 5.10 Million/uL [facility] HEMOGLOBIN 12.0 11.7 - 15.5 g/dL [facility] HEMATOCRIT 34.9(L) 35.0 - 45.0 % [facility] MCV 113.3(H) 80.0 - 100.0 fL [facility] MCH 39.0(H) 27.0 - 33.0 pg [facility] MCHC 34.4 32.0 - 36.0 g/dL [facility] Comment: For adults, a slight decrease in the calculated MCHC value (in the range of 30 to 32 g/dL) is most likely not clinically significant; however, it should be interpreted with caution in correlation with other red cell parameters and the patient's clinical condition. RDW 17.5(H) 11.0 - 15.0 % [facility] PLATELETS 163 140 - 400 Thousand/u L [facility] MPV 10.8 7.5 - 12.5 fL [facility] NEUTROPHIL ABSOLUTE 2,034 1,500 - 7,800 cells/uL [facility] LYMPHOCYTE ABSOLUTE 1,845 850 - 3,900 cells/uL [facility] MONOCYTE ABSOLUTE 361 200 - 950 cells/uL [facility] EOSINOPHIL ABSOLUTE 39 15 - 500 cells/uL [facility] BASOPHILS ABSOLUTE 22 0 - 200 cells/uL [facility] NEUTROPHIL 47.3 % [facility] LYMPHOCYTES 42.9 % [facility] MONOCYTE 8.4 % [facility] EOSINOPHILS 0.9 % [facility] BASOPHILS 0.5 % [facility] Comment: Test Performed at: [facility] [place] ??[phone] Radha Perez MD Blood 07/20/2024 3:25 PM [employer] 07/20/2024 3:25 PM [employer] Aviva Humphries MD HEMATOLOGY ORDERABLE S [facility] [phone] [facility] [address] * MANUAL DIFFERENTIAL (07/11/2024 8:27 AM [employer]) Only the most recent of4 resultswithin the time period is included. PLATELET EST. Consistent w Count 07/11/2024 9:07 AM [employer]ENTY ONE [employer] [facility] ANISOCYTOSIS 2+ /hpf 07/11/2024 9:07 AM [employer] [facility] POIKILOCYTES 1+ /hpf 07/11/2024 9:07 AM [employer] [facility] MACROCYTES 2+ /hpf 07/11/2024 9:07 AM [facility] Blood Collection / Unknown 07/11/2024 8:27 AM [employer] 07/11/2024 8:41 AM [employer] Edilia Pettit NP HEMATOLOGY ORDERABLE S COM [facility]ORATORY SERVICES - [facility] CLIA# [id number] [facility] [place] [address] * (ABNORMAL) COMPREHENSIVE METABOLIC PANEL (07/11/2024 8:27 AM [employer]ENTY ONE DEALER) Only the most recent of4 resultswithin the time period is included. SODIUM 138 136 - 145 mmol/L 07/11/2024 9:29 AM [facility] POTASSIUM 3.8 3.5 - 5.0 mmol/L 07/11/2024 9:29 AM [facility] CHLORIDE 104 98 - 107 mmol/L 07/11/2024 9:29 AM [facility] CO2 25 22 - 29 mmol/L 07/11/2024 9:29 AM [facility] CALCIUM 9.2 8.6 - 10.2 mg/dL 07/11/2024 9:29 AM [facility] BUN 9 8 - 23 mg/dL 07/11/2024 9:29 AM [facility] CREATININE 0.88 0.51 - 0.95 mg/dL 07/11/2024 9:29 AM [facility] GLUCOSE 145(H) 74 - 99 mg/dL 07/11/2024 9:29 AM [facility] TOTAL PROTEIN 7.1 6.7 - 8.6 g/dL 07/11/2024 9:29 AM [facility] ALBUMIN 4.1 3.5 - 5.2 g/dL 07/11/2024 9:29 AM [facility] BILIRUBIN TOTAL 0.5 0.2 - 1.1 mg/dL 07/11/2024 9:29 AM [facility] ALKALINE PHOSPHATASE 82 35 - 104 U/L 07/11/2024 9:29 AM [facility] AST 27 <33 U/L 07/11/2024 9:29 AM [facility] Comment:Hemolysis present. R esult may be falsely elevated. ALT 23 <34 U/L 07/11/2024 9:29 AM [facility] GFR >60 >=60 mL/min/1.7 3 sq meter 07/11/2024 9:29 AM [facility] Comment:eGFR calculated with 2020 CKD-EPI equation. Vegetarian diet, extremely high or low muscle mass, and may affect results. Cystatin C with Glomerular Filtration Rate is a suitable alternative for these patients. ANION GAP 9 8 - 16 mmol/L 07/11/2024 9:29 AM [facility] Blood Collection / Unknown 07/11/2024 8:27 AM [employer] 07/11/2024 8:45 AM [employer] Narrative [facility] - 07/11/2024 9:29 AM [employer]ER Samples containing indocyanine green cause interferences on Total and/or Direct Bilirubin and must not be measured. Edilia Pettit NP CHEMISTRY ORDERABLES [facility]# [id number] [address] [place] [address] * EXTRA TUBE (07/11/2024 8:26 AM TWENTY ONE DEALER) EXTRA TUBE RECEIVED [facility] Comment: An extra tube was received without a test specified. We will hold this specimen in our cold storage in the event additional testing is requested. Please contact your local client services representative for further assistance. SPECIMEN TYPE URINE CUP [facility] Comment: Test Performed at: [facility] [address] [place] ??[phone] [facility] Vo 07/11/2024 8:26 AM [employer] ONE DEALER 07/11/2024 9:16 AM [employer] Edilia Pettit NP CHEMISTRY ORDERABLES [facility] [phone] [place] [address] [place] [address] * (ABNORMAL) URINALYSIS WITH REFLEX CULTURE (07/11/2024 8:26 AM TWENTY ONE DEALER) Only the most recent of3 resultswithin the time period is included. COLOR UA YELLOW YELLOW [facility] CLARITY UA CLEAR CLEAR [facility] SPECIFIC GRAVITY UA 1.004 1.001 - 1.035 [facility] PH UA < OR = 5.0 5.0 - 8.0 [facility] GLUCOSE UA NEGATIVE NEGATIVE [facility] BILIRUBIN UA NEGATIVE NEGATIVE [facility] KETONES UA NEGATIVE NEGATIVE [facility] BLOOD UA NEGATIVE NEGATIVE [facility] PROTEIN UA NEGATIVE NEGATIVE [facility] NITRITE UA NEGATIVE NEGATIVE [facility] LEUKOCYTE ESTERASE UA 1+(A) NEGATIVE [facility] WBC UA 0-5 < OR = 5 /HPF [facility] RBC UA NONE SEEN < OR = 2 /HPF [facility] EPITHELIAL CELLS, URINE NONE SEEN < OR = 5 /HPF [facility] BACTERIA UA NONE SEEN NONE SEEN /HPF [facility] HYALINE CAST NONE SEEN NONE SEEN /LPF [facility] URINE NOTE [facility] Comment: This urine was analyzed for the presence of WBC, RBC, bacteria, casts, and other formed elements. Only those elements seen were reported. URINE CULTURE [facility] Comment: CULTURE INDICATED - RESULTS TO FOLLOW Test Performed at: [place] [address] [place] ??[phone] [facility] Urine URINE SPECIMEN OBTAINED BY CLEAN CATCH PROCEDURE / Unknown 07/11/2024 8:26 AM [employer] ONE DEALER 07/11/2024 9:16 AM [employer] ONE DEALER Edilia Pettit NP URINE ORDERABLES [facility] [phone] [place] [address] [place] [address] * URINE CULTURE (07/11/2024 8:26 AM TWENTY ONE DEALER) Only the most recent of2 resultswithin the time period is included. Pathologist [facility] URINE CULTURE SEE NOTE [facility] Comment: ??CULTURE, URINE, ROUTINE ?Micro Number: ?[id number] ??Test Status: ? Final ??Specimen Source: ?? Urine ??Specimen Quality: ??Adequate ??Result: ?Less than 10,000 CFU/mL of single Gram positive ? organism isolated. No further testing will be ? performed. If clinically indicated, recollection ? using a method to minimize contamination, with ? prompt transfer to Urine Culture Transport Tube, ? is recommended. Test Performed at: [employer] [place] [address] [address] [place] ??[phone] Radha Perez 07/11/2024 8:26 AM [employer] ONE DEALER 07/11/2024 9:16 AM [employer]ENT[employer] ONE DEALER Edilia Pettit NP MICROBIOLOGY - GENER AL ORDERABLES [facility] [phone] [place] [address] [address] [place] [address] * CANCER ANTIGEN 125 (07/11/2024 8:26 AM TWENTY ONE DEALER) Only the most recent of4 resultswithin the time period is included. CA 125 7 <35 U/mL [facility] Comment: This test was performed using the Siemens Chemiluminescent method. Values obtained from different assay methods cannot be used interchangeably. CA 125 levels, regardless of value, should not be interpreted as absolute evidence of the presence or absence of disease. Test Performed at: [place] [address] [place], [place] ??[phone] Radha Perez MD Blood 07/11/2024 8:26 AM TWENTY ONE DEALER 07/11/2024 9:19 AM TWENTY ONE DEALER Edilia Pettit NP CHEMISTRY ORDERABLES [facility] [phone] [facility] Center[facility] [address] [place] [address] * TRANSFUSE RED BLOOD CELLS (06/02/2024 4:02 PM CDT) Only the most recent of2 resultswithin the time period is included. Aviva Humphries MD BLOOD TRANSFUSION OR DERABLES * PREPARE RED BLOOD CELLS (06/02/2024 12:12 PM CDT) Only the most recent of2 resultswithin the time period is included. Pathologist [facility] COMPONENT TYPE [id number] [facility] COMPONENT IDENTIFICATION [id number] [facility] -- [facility] UN[facility] ABO A [facility] -- [facility] RH POS [facility] CROSSMATCH Compatible [facility] COMPONENT STATUS Transfused [facility] -- [facility] COMPONENT EXPIRATION DATE/TIME [id number] [facility] -- [facility] COMPONENT CODING SYSTEM [address] [facility] -- [facility] VOLUME, BLOOD PRODUCT 350 [facility] Other, specify 06/02/2024 12 :12 PM CDT Aviva Humphries MD LAB TRANSFUSION JASVIR JAUREGUI [facility] CLIA# [id number] [address] [facility] [place] [address] * TYPE AND SCREEN (06/02/2024 12:08 PM CDT) Only the most recent of2 resultswithin the time period is included. ABO GROUP A 06/02/2024 1:29 PM CDT [facility] -- [facility] RH (D) TYPE Positive 06/02/2024 1:29 PM CDT [facility] -- [facility] ANTIBODY SCREEN Negative 06/02/2024 1:29 PM CDT [facility] -- [facility] Blood Collection / Unknown 06/02/2024 12:08 PM CDT 06/02/2024 12:17 PM CDT Terra Eldridge PA-C BLOOD BANK OR DERABLES [facility] -- [facility] CLIA# [id number] [address] [place] [address] * PET TUMOR IMG W CT SKB MDTH (05/31/2024 11:44 AM CDT) Anatomical Region Laterality Modality Positron Emissio n Tomography (PET) 05/31/2024 11:4 5 AM CDT Impressions 05/31/2024 1:47 PM CDT IMPRESSION: ?? 1. Small pulmonary nodules in the right middle lobe and the left upper lobe are mildly hypermetabolic, concerning given the small nodule size. Concern for metastatic disease remains. The possibility that these represent infectious/inflammatory nodules is not excluded. 2. Streaky opacities in the right upper lobe, new from 05/18/2024, or almost certainly infectious/inflammatory in etiology. 3. Hysterectomy/salpingo-oophorectomy. No evidence of pelvic recurrence. DICTATION LOCATION: Location 1 - 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 New lung nodules. Staging. PROCEDURE: ?? Radiopharmaceutical: 18-F FDG Injected activity: ?? 6.3 mCi Injection site: ?Right antecubital fossa IV Uptake time: ? 45 minutes Blood glucose: ? 108 mg/dL. ?? CT scan type: ?Skull base to mid thighs. CT technique: ?Noncontrast CT for attenuation correction and anatomic localization. Axial, sagittal, coronal and MIP images reviewed. Maximal SUVs have units of MBq/mL. Scan quality: Satisfactory. FINDINGS: ?? For reference, mean liver SUV is ??2.4. Significant PET/CT findings: A 5 mm right middle lobe lung nodule is again seen and has maximum SUV of 3.3. A left upper lobe lung nodule with ovoid morphology measures up to 5 mm and has maximum SUV of 2.0. A small right apical nodule is not demonstrably FDG avid. New from 05/18/2024, there are streaky opacities in the right upper lobe, which are moderately FDG avid with maximum SUV of 4.4. Given the rapid onset, infectious/inflammatory etiology is favored. Hysterectomy and salpingo-oophorectomy change, without concerning FDG uptake in the pelvis. Incidental and normal/physiologic PET findings: Normal physiologic activity in the head and neck, including avid brain uptake. Physiologic metabolic activity seen in the chest. Normal metabolic activity in the liver, spleen, pancreas and adrenals. ??Physiologic bowel activity. ??Normal uptake and excretion in the kidneys and urinary tract. Normal low level marrow uptake is seen. Focal uptake is noted of the right shoulder and the right hip, suggesting degenerative change with active inflammation. Incidental CT findings: Right upper chest implanted port with catheter tip in the mid to lower SVC. Moderate to marked atherosclerotic calcifications. Severe emphysema. Mild multilevel disc degeneration. 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 New lung nodules. Staging. PROCEDURE: Radiopharmaceutical: 18-F FDG Injected activity: 6.3 mCi Injection site: Right antecubital fossa IV Uptake time: 45 minutes Blood glucose: 108 mg/dL. CT scan type: Skull base to mid thighs. CT technique: Noncontrast CT for attenuation correction and anatomic localization. Axial, sagittal, coronal and MIP images reviewed. Maximal SUVs have units of MBq/mL. Scan quality: Satisfactory. FINDINGS: For reference, mean liver SUV is 2.4. Significant PET/CT findings: A 5 mm right middle lobe lung nodule is again seen and has maximum SUV of 3.3. A left upper lobe lung nodule with ovoid morphology measures up to 5 mm and has maximum SUV of 2.0. A small right apical nodule is not demonstrably FDG avid. New from 05/18/2024, there are streaky opacities in the right upper lobe, which are moderately FDG avid with maximum SUV of 4.4. Given the rapid onset, infectious/inflammatory etiology is favored. Hysterectomy and salpingo-oophorectomy change, without concerning FDG uptake in the pelvis. Incidental and normal/physiologic PET findings: Normal physiologic activity in the head and neck, including avid brain uptake. Physiologic metabolic activity seen in the chest. Normal metabolic activity in the liver, spleen, pancreas and adrenals. Physiologic bowel activity. Normal uptake and excretion in the kidneys and urinary tract. Normal low level marrow uptake is seen. Focal uptake is noted of the right shoulder and the right hip, suggesting degenerative change with active inflammation. Incidental CT findings: Right upper chest implanted port with catheter tip in the mid to lower SVC. Moderate to marked atherosclerotic calcifications. Severe emphysema. Mild multilevel disc degeneration. IMPRESSION: 1. Small pulmonary nodules in the right middle lobe and the left upper lobe are mildly hypermetabolic, concerning given the small nodule size. Concern for metastatic disease remains. The possibility that these represent infectious/inflammatory nodules is not excluded. 2. Streaky opacities in the right upper lobe, new from 05/18/2024, or almost certainly infectious/inflammatory in etiology. 3. Hysterectomy/salpingo-oophorectomy. No evidence of pelvic recurrence. DICTATION LOCATION: Location 1 - [facility] Aviva Humphries MD PE ORDERABLES * CT CHEST ABDOMEN PELVIS W CONT (05/18/2024 2:54 PM CDT) Anatomical Region Laterality Modality Chest Computed Tomogra phy 05/18/2024 3:35 PM CDT Impressions 05/19/2024 1:48 PM CDT IMPRESSION: ?? 1. New solid pulmonary nodules, largest measuring 6 mm, concerning for metastatic disease. 2. No evidence of metastatic disease in the abdomen or pelvis. DICTATION LOCATION: 1 Narrative 05/19/2024 1:48 PM CDT EXAMINATION: CT OF THE CHEST, ABDOMEN AND PELVIS WITH IV CONTRAST DATE: ??05/18/2024 2:54 PM HISTORY: Ovarian cancer, monitor TECHNIQUE: Transaxial computed tomographic images of the chest, abdomen and pelvis were obtained following the uneventful administration of intravenous contrast. The examination was performed with the adjustment of mA according to the patient size and/or the use of Iterative Reconstruction Technique. ?? CONTRAST: IOPAMIDOL 61 % INTRAVENOUS SOLUTION (MULTI-DOSE BULK PACK) Given:60 mL DLP: 1210.61 mGy/cm FINDINGS: Comparison is made to a chest, abdomen and pelvis CT from 02/10/2024. Lungs: There is a new 4 mm solid nodule in the right lung apex. There is a new 6 mm solid nodule in the right middle lobe. There is a new 7 mm solid nodule in the lingula. The lungs are emphysematous. There is no pleural effusion or pneumothorax. Mediastinum: Heart size is normal and there is no pericardial effusion. There are dense atherosclerotic calcifications of the coronary arteries and aortic arch. The great vessels are normal in course. The ascending aorta is dilated, measuring 3.6 cm in diameter, similar to prior. A small pretracheal node is similar to prior. Chest wall: There is no axillary lymphadenopathy. The ribs are normal. Liver: Normal Gallbladder: Normal Pancreas: Normal Spleen: Normal Adrenal glands: Normal Kidneys: Normal Stomach: Normal Small bowel: Normal Colon: Normal Bladder: Decompressed Uterus and adnexa: Absent Vasculature: The SMA and SMV are patent. Bones: Degenerative disc disease, worst at L5-S1 Other: Small retroperitoneal nodes are similar to prior. There are no peritoneal deposits. Procedure Note Chirag Johnson MD - 05/19/2024 EXAMINATION: CT OF THE CHEST, ABDOMEN AND PELVIS WITH IV CONTRAST DATE: 05/18/2024 2:54 PM HISTORY: Ovarian cancer, monitor TECHNIQUE: Transaxial computed tomographic images of the chest, abdomen and pelvis were obtained following the uneventful administration of intravenous contrast. The examination was performed with the adjustment of mA according to the patient size and/or the use of Iterative Reconstruction Technique. CONTRAST: IOPAMIDOL 61 % INTRAVENOUS SOLUTION (MULTI-DOSE BULK PACK) Given:60 mL DLP: 1210.61 mGy/cm FINDINGS: Comparison is made to a chest, abdomen and pelvis CT from 02/10/2024. Lungs: There is a new 4 mm solid nodule in the right lung apex. There is a new 6 mm solid nodule in the right middle lobe. There is a new 7 mm solid nodule in the lingula. The lungs are emphysematous. There is no pleural effusion or pneumothorax. Mediastinum: Heart size is normal and there is no pericardial effusion. There are dense atherosclerotic calcifications of the coronary arteries and aortic arch. The great vessels are normal in course. The ascending aorta is dilated, measuring 3.6 cm in diameter, similar to prior. A small pretracheal node is similar to prior. Chest wall: There is no axillary lymphadenopathy. The ribs are normal. Liver: Normal Gallbladder: Normal Pancreas: Normal Spleen: Normal Adrenal glands: Normal Kidneys: Normal Stomach: Normal Small bowel: Normal Colon: Normal Bladder: Decompressed Uterus and adnexa: Absent Vasculature: The SMA and SMV are patent. Bones: Degenerative disc disease, worst at L5-S1 Other: Small retroperitoneal nodes are similar to prior. There are no peritoneal deposits. IMPRESSION: 1. New solid pulmonary nodules, largest measuring 6 mm, concerning for metastatic disease. 2. No evidence of metastatic disease in the abdomen or pelvis. DICTATION LOCATION: [address] ORDERABLES * (ABNORMAL) URINALYSIS WITH REFLEX MICROSCOPIC (05/12/2024 11:38 AM CDT) COLOR UA Yellow Pale to Dark Yellow 05/12/2024 12:31 PM CDT [facility] - [facility] CLARITY UA Clear Clear 05/12/2024 12:31 PM T [facility] SPECIFIC GRAVITY UA 1.013 1.003 - 1.035 05/12/2024 12:31 PM T [facility] PH UA 5.0 5.0 - 8.0 05/12/2024 12:31 PM T [facility] LEUKOCYTE ESTERASE UA 3+(A) Negative 05/12/2024 12:31 PM CDT [facility] NITRITE UA Negative Negative 05/12/2024 12:31 PM CDT [facility] PROTEIN UA Negative Negative 05/12/2024 12:31 PM CDT [facility] GLUCOSE UA Negative Negative 05/12/2024 12:31 PM CDT [facility] KETONES UA Negative Negative 05/12/2024 12:31 PM CDT [facility] UROBILINOGEN UA Normal <2.0 mg/dL 12:31 PM CDT [facility] BILIRUBIN UA Negative Negative 05/12/2024 12:31 PM CDT [facility] BLOOD UA Negative Negative 05/12/2024 12:31 PM CDT [facility] WBC UA 26-50(A) 0 - 2 /hpf 05/12/2024 12:31 PM CDT [facility] RBC UA 0-2 0 - 2 /hpf 05/12/2024 12:31 PM CDT [facility] BACTERIA UA Negative Negative /hpf 05/12/2024 12:31 PM CDT [facility] EPITHELIAL CELLS, URINE 0-5 0 - 5 /hpf 05/12/2024 12:31 PM CDT [facility] Urine URINE SPECIMEN OBTAINED BY CLEAN CATCH PROCEDURE / Unknown Collection / Unknown 05/12/2024 11:38 AM CDT 05/12/2024 12:04 PM CDT Aviva Humphries MD URINE ORDERABLES [facility] [id number] [address] [facility] [place] [address] * (ABNORMAL) VITAMIN B12 AND FOLATE (05/03/2024 10:23 AM CDT) VITAMIN B12 216 200 - 1100 pg/mL [facility] Comment: Please Note: Although the reference range for vitamin B12 is 200-1100 pg/mL, it has been reported that between 5 and 10% of patients with values between 200 and 400 pg/mL may experience neuropsychiatric and hematologic abnormalities due to occult B12 deficiency; less than 1% of patients with values above 400 pg/mL will have symptoms. FOLATE, SERUM 4.5(L) ng/mL [facility] Comment: ? Reference Range ? Low: ? <3.4 ? Borderline: ?3.4-5.4 ? Normal: ?>5.4 FASTING:NO FASTING: NO Test Performed at: [facility] ??[phone] Radha Perez MD Blood 05/03/2024 10:2 3 AM CDT 05/03/2024 10:24 AM CDT Aviva Humphries MD CHEMISTRY ORDERABLES Performing Organization Address City/State/[facility] Co de Phone Number [facility] [phone] [facility] [address] * (ABNORMAL) IRON, TIBC, AND PERCENT SATURATION (05/03/2024 10:23 AM CDT) IRON 135 45 - 160 mcg/dL [facility] TIBC 283 250 - 450 mcg/dL (calc) [facility] IRON % SATURATION 48(H) 16 - 45 % (calc) [facility] Comment: FASTING:NO FASTING: NO Test Performed at: [facility] ??[phone] Radha Perez MD Blood 05/03/2024 10:2 3 AM CDT 05/03/2024 10:24 AM CDT Aviva Humphries MD CHEMISTRY ORDERABLES [facility] [phone] [facility] [address] [place] [address] * FERRITIN (05/03/2024 10:23 AM CDT) FERRITIN 182 16 - 288 ng/mL [facility] Comment: Test Performed at: [facility] ??[phone] Radha Perez MD Blood 05/03/2024 10:2 3 AM CDT 05/03/2024 10:24 AM CDT Aviva Humphries MD CHEMISTRY ORDERABLES Performing Organization Address City/[facility]/ZIP Co de Phone Number [facility] [phone] [facility] [address] [place] [phone] from Last 3 Months Advance Directives For more information, please contact: [phone] * Full Code (Latest Code Status on File) Date Activated Date Inactivated Comments 08/07/2023 12:31 AM 08/12/2023 6:27 PM * Full Code Date Activated Date Inactivated Comments 08/06/2023 12:44 PM 08/07/2023 12:31 AM Care Teams Brassiere Cup Mold Cutter Relationship Specialty Start Date End Date Shilo Soares MD [address] [phone] PCP - General Internal Medicine 04/24/23
--- OUTSIDE RECORDS SUMMARY | 2024-07-26 23:42 | XMS_ITS | Encounter Summary ---
Author Organization [facility] Address [address] [place] [address] Care Team Providers Care Rehabilitation Medicine Physician Name Role Phone Shilo Soares MD Primary Care Provider [phone] Encounter Details Date Type Department Care Team (Late Contact Info) Description 07/12/2024 External Device Data STL ABSTRACTION Provider, [...] (Late Contact Info) Description 08/04/2024 1:00 PM CAREER COORDINATOR Appointment [facility] [address] [place] [address] Aviva Humphries MD [address] [place] [address] Infusion Chair 5, 2nd Floor Hall 08/25/2024 1:00 PM CAREER COORDINATOR Office Visit [facility] Gynecologic Oncology Hall [address] [place] [address] Edilia Pettit, CHELY [address] [address] [place] [address] 08/25/2024 1:30 PM CAREER COORDINATOR Appointment [facility] 2nd Fl [address] [place] [address] Aviva Humphries MD [address] [place] [address] Infusion Chair 1, 2nd Floor [place] 09/01/2024 10:45 AM CAREER COORDINATOR Appointment [facility] Nuclear Medicine [address] [place] [phone] [id number] Edilia Pettit, CHELY [address] [facility] [address] [place] [address] documented as of this encounter Visit Diagnoses Not on filedocumented in this encounter Care Teams Rehabilitation Medicine Physician Relationship Specialty Start Date End Date Shilo Soares MD [address] [place] [address] PCP - General Internal Medicine 04/24/23 documented as of this encounter
--- OUTSIDE RECORDS SUMMARY | 2024-07-26 23:42 | XMS_ITS | Encounter Summary ---
Author Organization [facility] Address [address] [place] [address] Care Team Providers Care Numerical Control Nesting Operator Name Role Phone Shilo Soares MD Primary Care Provider [phone] Encounter Details Date Type Department Care Team (Latest Contact Info) Description 07/11/2024 7:45 AM [facility] - 07/11/2024 11:59 PM [facility] Hospital Encounter [facility] [address] [place] [address] Aviva Humphries MD [address] [place] [address] Discharge Disposition: Home or Self Care Social [...] on file documented as of this encounter Medications at Time of Discharge [...] bedtime. 02/26/2021 fluticasone propionate (FLONASE) 50 mcg/spray [place], Suspension nasal inhaler Administer 2 Sprays in each nostril daily. omega-3 fatty acids-fish oil 300-1,000 mg Capsule Take 2 Capsules by mouth daily. documented as of this encounter Plan of Treatment Upcoming Encounters Date Type Department Care Team (Late st Contact Info) Description 08/04/2024 1:00 PM KETTLE COOK Appointment [facility] 2nd Fl [address] [place] [address] Aviva Humphries MD [address] [place] [address] Infusion Chair 5, 2nd Floor Hall 08/25/2024 1:00 PM KETTLE COOK Office Visit [facility] Gynecologic Oncology Hall [address] [facility] [address] [place] [address] Edilia Pettit, CHELY [address] [facility] [address] [place] [address] 08/25/2024 1:30 PM KETTLE COOK Appointment Randy [facility] [address] [place] [address] Aviva Humphries MD [address] [facility] [place] [address] Infusion Chair 1, 2nd Floor [place] 09/01/2024 10:45 AM KETTLE COOK Appointment [facility] Nuclear Medicine [address] [place] [id number] Edilia Pettit, CHELY [phone] [place] [address] documented as of this encounter Procedures Procedure Name Priority Date/Time Associated Diagnosis Comments DIFFERENTIAL, MANUAL Stat 07/11/2024 8:27 AM [facility] Malignant neoplasm of ovary, unspecified laterality CBC WITH DIFFERENTIAL Stat 07/11/2024 8:27 AM [facility] Malignant neoplasm of ovary, unspecified laterality COMPREHENSIVE METABOLIC PANEL Stat 07/11/2024 8:27 AM [facility] Malignant neoplasm of ovary, unspecified laterality EXTRA TUBE Stat 07/11/2024 8:26 AM [facility] URINALYSIS WITH REFLEX CULTURE Stat 07/11/2024 8:26 AM [facility] Malignant neoplasm of ovary, unspecified laterality URINE CULTURE Stat 07/11/2024 8:26 AM [facility] CANCER ANTIGEN 125 Routine 07/11/2024 8: 26 AM [facility] Malignant neoplasm of ovary, unspecified laterality documented in this encounter Results * MANUAL DIFFERENTIAL (07/11/2024 8:27 AM [facility] COOK) PLATELET EST. Consistent w Count 07/11/2024 9:07 AM K[facility]TLE COOK [facility] ANISOCYTOSIS 2+ /hpf 07/11/2024 9:07 AM [facility] - . [facility] POIKILOCYTES 1+ /hpf 07/11/2024 9:07 AM [facility] - . [facility] MACROCYTES 2+ /hpf 07/11/2024 9:07 AM [facility] [employer] [facility] - [facility] Blood Collection / Unknown 07/11/2024 8:27 AM [facility] 07/11/2024 8:41 AM [facility] Edilia Pettit NP HEMATOLOGY ORDERABLE S COM [facility] [id number] 5 SKarely [facility] [place] [address] * (ABNORMAL) COMPREHENSIVE METABOLIC PANEL (07/11/2024 8:27 AM [facility] COOK) SODIUM 138 136 - 145 mmol/L 07/11/2024 9:29 AM [facility] [employer] [employer] [facility] - . [facility] POTASSIUM 3.8 3.5 - 5.0 mmol/L 07/11/2024 9:29 AM [facility] [employer] [facility] CHLORIDE 104 98 - 107 mmol/L 07/11/2024 9:29 AM [facility] CO2 25 22 - 29 mmol/L 07/11/2024 9:29 AM [facility] [employer] [facility] - . [facility] CALCIUM 9.2 8.6 - 10.2 mg/dL 07/11/2024 9:29 AM [facility] [employer] BUN 9 8 - 23 mg/dL 07/11/2024 9:29 AM [facility] [employer] [facility] CREATININE 0.88 0.51 - 0.95 mg/dL 07/11/2024 9:29 AM [facility] GLUCOSE 145(H) 74 - 99 mg/dL 07/11/2024 9:29 AM [facility] TOTAL PROTEIN 7.1 6.7 - 8.6 g/dL 07/11/2024 9:29 AM [facility] ALBUMIN 4.1 3.5 - 5.2 g/dL 07/11/2024 9:29 AM [facility] BILIRUBIN TOTAL 0.5 0.2 - 1.1 mg/dL 07/11/2024 9:29 AM [facility] ALKALINE PHOSPHATASE 82 35 - 104 U/L 07/11/2024 9:29 AM [facility] [employer] [facility] AST 27 <33 U/L 07/11/2024 9:29 AM [facility] Comment:Hemolysis present. R esult may be falsely elevated. ALT 23 <34 U/L 07/11/2024 9:29 AM [facility] [employer] [facility] GFR >60 >=60 mL/min/1.7 3 sq meter 07/11/2024 9:29 AM [facility] [employer] [facility] Comment:eGFR calculated with 2020 CKD-EPI equation. Vegetarian diet, extremely high or low muscle mass, and may affect results. Cystatin C with Glomerular Filtration Rate is a suitable alternative for these patients. ANION GAP 9 8 - 16 mmol/L 07/11/2024 9:29 AM [facility] [employer] [facility] Blood Collection / Unknown 07/11/2024 8:27 AM [facility] 07/11/2024 8:45 AM [facility] - 07/11/2024 9:29 AM [facility] Samples containing indocyanine green cause interferences on Total and/or Direct Bilirubin and must not be measured. Edilia Pettit NP CHEMISTRY ORDERABLES [facility] [employer] [facility] CLIA# [id number] [facility] [place] [address] * (ABNORMAL) CBC WITH DIFFERENTIAL (07/11/2024 8:27 AM K[facility]TLE COOK) [facility] WBC 4.6 4.0 - 9.8 K/uL 07/11/2024 8:43 AM KETTLE COOK [facility] RBC 2.93(L) 3.90 - 4.90 M/uL 07/11/2024 8:43 AM [facility] HEMOGLOBIN 11.7(L) 11.8 - 14.8 g/dL 07/11/2024 8:43 AM [facility] HEMATOCRIT 34.4(L) 35.5 - 44.0 % 07/11/2024 8:43 AM [facility] MCV 117.4(H) 82.0 - 99.0 fL 07/11/2024 8:43 AM [facility] MCH 39.9(H) 27.2 - 32.6 pg 07/11/2024 8:43 AM [facility] MCHC 34.0 31.5 - 35.5 g/dL 07/11/2024 8:43 AM [facility] COOK [facility] RDW 19.0(H) 11.5 - 14.5 % 07/11/2024 8:43 AM [facility] COOK [facility] RDW-STDEV 82.7(H) 37.1 - 48.7 fL 07/11/2024 8:43 AM [facility] COOK [facility] PLATELETS 127(L) 140 - 350 K/uL 07/11/2024 8:43 AM [facility] C[facility] MPV 10.7 9.3 - 12.4 fL 07/11/2024 8:43 AM [facility] NEUTROPHILS 70 % 07/11/2024 8:43 AM [facility] LYMPHOCYTES 24 % 07/11/2024 8:43 AM [facility] MONOCYTES 5 % 07/11/2024 8:43 AM [facility] EOSINOPHILS 1 % 07/11/2024 8:43 AM [facility] BASOPHILS 0 % 07/11/2024 8:43 AM [facility]powering [facility] IMMATURE GRANULOCYTES 0 % 07/11/2024 8:43 AM [facility] NEUTROPHIL ABSOLUTE 3.22 1.90 - 7.00 K/uL 07/11/2024 8:43 AM [facility] LYMPHOCYTE ABSOLUTE 1.11 0.70 - 4.50 K/uL 07/11/2024 8:43 AM [facility] MONOCYTE ABSOLUTE 0.24 0.10 - 1.30 K/uL 07/11/2024 8:43 AM [facility] (powering [employer]) [facility] EOSINOPHIL ABSOLUTE 0.03 0.00 - 0.70 K/uL 07/11/2024 8:43 AM [facility] (powering [employer]) [facility] BASOPHILS ABSOLUTE 0.01 0.00 - 0.20 K/uL 07/11/2024 8:43 AM [facility] (powering [employer]) [facility] IMMATURE GRANULOCYTES ABSOLUTE 0.01 0.00 - 0.03 K/uL 07/11/2024 8:43 AM [facility] Blood Collection / Unknown 07/11/2024 8:27 AM [facility] 07/11/2024 8:41 AM [facility] COOK Edilia Pettit NP HEMATOLOGY ORDERABLE S [facility] - [facility]# [id number] [address] [place] [address] [place] [address] * URINE CULTURE (07/11/2024 8:26 AM KETTLE COOK) URINE CULTURE SEE NOTE [facility] Comment: ??CULTURE, URINE, ROUTINE ?Micro Number: ?[id number] ??Test Status: ? Final ??Specimen Source: ?? Urine ??Specimen Quality: ??Adequate ??Result: ?Less than 10,000 CFU/mL of single Gram positive ? organism isolated. No further testing will be ? performed. If clinically indicated, recollection ? using a method to minimize contamination, with ? prompt transfer to Urine Culture Transport Tube, ? is recommended. Test Performed at: [place] [address] [place] ??[phone] Radha Perez 07/11/2024 8:26 AM K[facility] COOK 07/11/2024 9:16 AM [facility] COOK Edilia Pettit NP MICROBIOLOGY - GENER AL ORDERABLES Performing Organization Address City/[facility] Code Phone Number [facility] [phone] [place] [address] [place] [address] * EXTRA TUBE (07/11/2024 8:26 AM KETTLE COOK) Pathologist [facility] EXTRA TUBE RECEIVED [facility] Comment: An extra tube was received without a test specified. We will hold this specimen in our cold storage in the event additional testing is requested. Please contact your local client service and consulting manager for further assistance. SPECIMEN TYPE URINE CUP [facility] Comment: Test Performed at: [facility] [address] [place] ??[phone] Radha Perez 07/11/2024 8:26 AM K[facility] COOK 07/11/2024 9:16 AM KETTLE COOK Edilia Pettit NP CHEMISTRY ORDERABLES Performing Organization Address [facility] Phone Number [facility] [phone] [place] [address] [place] [address] * (ABNORMAL) URINALYSIS WITH REFLEX CULTURE (07/11/2024 8:26 AM K[facility]TLE COOK) COLOR UA YELLOW YELLOW [facility] CLARITY UA CLEAR CLEAR [facility] SPECIFIC GRAVITY UA 1.004 1.001 - 1.035 [facility] PH UA < OR = 5.0 5.0 - 8.0 [facility] GLUCOSE UA NEGATIVE NEGATIVE [facility] BILIRUBIN UA NEGATIVE NEGATIVE [facility] KETONES UA NEGATIVE NEGATIVE [facility] BLOOD UA NEGATIVE NEGATIVE [facility] PROTEIN UA NEGATIVE NEGATIVE [facility] NITRITE UA NEGATIVE NEGATIVE [facility] LEUKOCYTE ESTERASE UA 1+(A) NEGATIVE [facility] WBC UA 0-5 < OR = 5 /HPF [facility] RBC UA NONE SEEN < OR = 2 /HPF [facility] EPITHELIAL CELLS, URINE NONE SEEN < OR = 5 /HPF [facility] BACTERIA UA NONE SEEN NONE SEEN /HPF [facility] HYALINE CAST NONE SEEN NONE SEEN /LPF [facility] URINE NOTE [facility] Comment: This urine was analyzed for the presence of WBC, RBC, bacteria, casts, and other formed elements. Only those elements seen were reported. URINE CULTURE [facility] Comment: CULTURE INDICATED - RESULTS TO FOLLOW Test Performed at: [facility] [place] [address] [address] [place] ??[phone] Radha Perez Urine URINE SPECIMEN OBTAINED BY CLEAN CATCH PROCEDURE / Unknown 07/11/2024 8:26 AM [facility] COOK 07/11/2024 9:16 AM [facility] COOK Edilia Pettit NP URINE ORDERABLES [facility] [phone] [place] [address] [address] [place] [phone] * CANCER ANTIGEN 125 (07/11/2024 8:26 AM KETTLE COOK) Pathologist [facility] CA 125 7 <35 U/mL [facility] nexa Comment: This test was performed using the Siemens Chemiluminescent method. Values obtained from different assay methods cannot be used interchangeably. CA 125 levels, regardless of value, should not be interpreted as absolute evidence of the presence or absence of disease. Test Performed at: [facility] [address] [place] ??[phone] Radha Perez MD Blood 07/11/2024 8:26 AM KETTLE COOK 07/11/2024 9:19 AM KETTLE COOK Edilia Pettit NP CHEMISTRY ORDERABLES [facility] [phone] [facility] [address] [place] [address] documented in this encounter Visit Diagnoses Diagnosis Malignant neoplasm of ovary, unspecified laterality documented in this encounter Administered Medications Inactive Administered Medications - up to 3 most recent administrations Medication Order MAR Action Action Date Dose Rate Site heparin, porcine (pf) 10 unit/mL IV syringe 50 Units 50 Units, IV, ONE TIME ONLY, 1 dose, On Thu07/11/24 at 0830, Routine Given 07/11/2024 8:40 AM KETTLE COOK 50 Units sodium chloride flush injection 20 mL 20 mL, IV, ONE TIME ONLY, 1 dose, On Thu07/11/24 at 0830, Routine Given 07/11/2024 8:39 AM K[facility]TLE COOK 20 mL documented in this encounter Care Teams Numerical Control Nesting Operator Relationship Specialty Start Date End Date Shilo Soares MD [address] [place] [address] PCP - General Internal Medicine 04/24/23 documented as of this encounter
--- OUTSIDE RECORDS SUMMARY | 2024-07-26 23:42 | XMS_ITS ---
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 Protein-calorie malnutrition, severe 08/07/2023 Ovarian cancer 05/13/2023 Cancer Staging:Clinical stage from 05/13/2023:FIGO Stage IVB- Signed by Aviva Humphries MD on 05/13/2023 Current Oncology Plans OP ONC OVARIAN_PACLITAXEL_CARBOPLATIN_BEVACIZUMAB (START ON CYCLE 2)_EVERY 21 DAYS X 6 FOLLOWED BY BEVACIZUMAB_EVERY 21 DAYS X 16* Plan Start Date:05/25/2023 Plan Provider:Aviva Humphries MD Linked Problems Malignant neoplasm of ovary, unspecified laterality Treatment Medications Current Day (Day 1 , Cycle 20 - Planned for 08/04/2024) Next Day (Day 1, Cycle 21 - Planned for 08/25/2024) bevacizumab-awwb (MVASI) IVPBCARBOplatin (PARAPLATIN) IVPBPACLitaxel (TAXOL) IVPB bevacizumab-awwb (MVASI) 773 mg in sodium chloride 0.9% 100 mL IVPB bevacizumab-awwb (MVASI) 773 mg in sodium chloride 0.9% 100 mL IVPB Past Plans No past plan information found. Radiation Treatments * No radiation treatments are documented for this patient in [facility]. Treatments may have been administered in another system. Lifetime Dose Tracking * Chemical Lifetime Dose Automatic Entry Manual Entr y Effective Dose 106.95 mSv 106.95 mSv 0 mSv Total DLP 3,655.34 DLP 3,655.34 DLP 0 DLP CTDIvol Max 51.01 mGy 51.01 mGy 0 mGy CTDIvol Min 6.02 mGy 6.02 mGy 0 mGy
--- OUTSIDE RECORDS SUMMARY | 2024-07-26 23:42 | XMS_ITS | Encounter Summary ---
Author Organization [facility] Address [address] [place] [address] Care Team Providers Care Clay Structure Builder And Servicer Name Role Phone Shilo Soares MD Primary Care Provider [phone] Encounter Details Date Type Department Care Team (Late Contact Info) Description 07/19/2024 External Device Data STL ABSTRACTION Provider, [...] (Late Contact Info) Description 08/04/2024 1:00 PM LOAN EXPEDITOR Appointment [facility] 2nd T[facility] [address] [place] [address] Aviva Humphries MD [address] [place] [address] Infusion Chair 5, 2nd Floor Hall 08/25/2024 1:00 PM LOAN EXPEDITOR Office Visit [facility] Gynecologic Oncology Hall [address] [place] [address] Edilia Pettit, CHELY [address] [place] [address] 08/25/2024 1:30 PM LOAN EXPEDITOR Appointment [facility] 2nd Fl [address] [place] [address] Aviva Humphries MD [address] [place] [address] Infusion Chair 1, 2nd Floor [place] 09/01/2024 10:45 AM LOAN EXPEDITOR Appointment [facility] Nuclear Medicine [address] [place] [address] [id number] Edilia Pettit, CHELY [address] [facility] [address] [place] [address] documented as of this encounter Visit Diagnoses Not on filedocumented in this encounter Care Teams Clay Structure Builder And Servicer Relationship Specialty Start Date End Date Shilo Soares MD [address] [place] [address] PCP - General Internal Medicine 04/24/23 documented as of this encounter
--- OUTSIDE RECORDS SUMMARY | 2024-07-26 23:42 | XMS_ITS | Encounter Summary ---
Author Organization [facility] Address [address] [place] [address] Care Team Providers Care Intelligence Chief Name Role Phone Shilo Soares MD Primary Care Provider [phone] Encounter Details Date Type Department Care Team (Latest Contact Info) Description 07/11/2024 Orders Only [facility] Gynecologic Oncology Hall [address] [place] [address] Edilia Pettit, CHELY [address] [facility] [address] [place] [address] Chemotherapy-induced thrombocytopenia Social History Tobacco [...] st Contact Info) Description 08/04/2024 1:00 PM WORKSITE WELLNESS PRACTITIONER Appointment [facility] 2nd Fl [address] [place] [address] Aviva Humphries MD [address] [place] [address] Infusion Chair 5, 2nd Floor [place] 08/25/2024 1:00 PM WORKSITE WELLNESS PRACTITIONER Office Visit [facility] Gynecologic Oncology Hall [address] [place] [address] Edilia Pettit, CHELY [address] [place] [address] 08/25/2024 1:30 PM WORKSITE WELLNESS PRACTITIONER Appointment Randy [facility] Infusion Center [facility] [address] [place] [address] Aviva Humphries MD [address] [place] [address] Infusion Chair 1, 2nd Floor [place] 09/01/2024 10:45 AM WORKSITE WELLNESS PRACTITIONER Appointment [facility] Nuclear Medicine [address] [place] [address] [id number] Edilia Pettit, CHELY [address] [facility] [address] [place] [address] documented as of this encounter Visit Diagnoses Diagnosis Chemotherapy-induced thrombocytopenia Other secondary thrombocytopenia documented in this encounter Care Teams Intelligence Chief Relationship Specialty Start Date End Date Shilo Soares MD [address] [place] [address] PCP - General Internal Medicine 04/24/23 documented as of this encounter
--- OUTSIDE RECORDS SUMMARY | 2024-07-26 23:42 | XMS_ITS | Encounter Summary ---
Author Organization [facility] Address [address] [place] [address] Care Team Providers Care General Pediatrician Name Role Phone Shilo Soares MD Primary Care Provider [phone] Encounter Details Date Type Department Care Team (Late Contact Info) Description 07/25/2024 External Device Data [facility] ABSTRACTION Provider, [...] (Late Contact Info) Description 08/04/2024 1:00 PM MARKET MASTER Appointment [facility] 2nd Id [address] [place] [address] Aviva Humphries MD [address] [place] [address] Infusion Chair 5, 2nd Floor Hall 08/25/2024 1:00 PM MARKET MASTER Office Visit [facility] Gynecologic Oncology Hall [address] [place] [address] Edilia Pettit, CHELY [address] [place] [address] 08/25/2024 1:30 PM MARKET MASTER Appointment [facility] 2nd Fl [address] [place] [address] Aviva Humphries MD [address] [place] [address] Infusion Chair 1, 2nd Floor [place] 09/01/2024 10:45 AM MARKET MASTER Appointment [facility] Nuclear Medicine [address] [place] [phone] [id number] Edilia Pettit, CHELY [address] [place] [address] documented as of this encounter Visit Diagnoses Not on filedocumented in this encounter Care Teams General Pediatrician Relationship Specialty Start Date End Date Shilo Soares MD [address] [place] [address] PCP - General Internal Medicine 04/24/23 documented as of this encounter
--- OUTSIDE RECORDS SUMMARY | 2024-07-26 23:42 | XMS_ITS | Encounter Summary ---
Author Organization [facility] Address [address] [place] [address] Care Team Providers Care Hoof And Shoe Inspector Name Role Phone Shilo Soares MD Primary Care Provider [phone] Reason for Visit * Reason Comments Chemotherapy ROV Prechemo Encounter Details Date Type Department Care Team (Latest Contact Info) Description 07/11/2024 10:00 AM CUSTOMER SUCCESS SPECIALIST Office Visit [facility] [address] [place] [address] Aviva Humphries MD [address] [place] [address] Malignant neoplasm of ovary, unspecified laterality (Primary Dx); Maintenance antineoplastic chemotherapy Social History Tobacco Use Types Packs/Day Years [...] Sign Reading Time Taken Comments Blood Pressure 136/84 07/11/2024 9:23 AM CUSTOMER SUCCESS SPECIALIST Pulse 91 07/11/2024 9:23 AM CUSTOMER SUCCESS SPECIALIST Temperature 36.5 ??C (97.7 ??F) 07/11/2024 9:23 AM CS T Respiratory Rate 16 07/11/2024 9:23 AM CUSTOMER SUCCESS SPECIALIST Oxygen Saturation 97% 07/11/2024 9:23 AM CUSTOMER SUCCESS SPECIALIST Inhaled Oxygen Concentration - - Weight 51.9 kg (114 lb 6.4 oz) 07/11/2024 9:23 A M CUSTOMER SUCCESS SPECIALIST Height 167.6 cm (5' 6 ) 07/11/2024 9:23 AM CUSTOMER SUCCESS SPECIALIST Body Mass Index 18.46 07/11/2024 9:23 AM CUSTOMER SUCCESS SPECIALIST documented in this encounter Progress Notes * Aviva Humphries MD - 07/11/2024 9:33 AM CST Images from the original note were not included. [facility] GYNECOLOGIC ONCOLOGY OFFICE VISIT 07/11/2024November Eileen Tiarra REFERRING PROVIDER: Dr. Barnard ref. provider found PRIMARY CARE PROVIDER: Shilo Harley MD RETURN PATIENT VISIT Cancer Staging Ovarian cancer Staging form: Ovary, Fallopian Tube, and Primary Peritoneal Carcinoma, AJCC 8th Edition - Clinical stage from 05/13/2023: FIGO Stage IVB - Signed by Aviva Humphries MD on 05/13/2023 Oncology History: 03/2023 presented to [facility] ED with abdominal distension; CT showed 11.6cm R ovarian mass with peritoneal carcinomatosis and large volume ascites; inguinal and external iliac LAD, thickening of the stomach wall 04/29/[address] 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 Humphries for TLH-BSO mini-lap for repair of bladder injury, complete omentectomy, diaphragm biopsy, and inguinal lymph node removal; complete gross resection; final pathologywith clear cell carcinoma 09/03/23 resumption of post op chemotherapy; 10/15/23 completion of therapy 11/05/23 bevacizumab 15mg/m2 + 11/19/23 olaparib 300mg BID maintenance initiated-->250mg BID-->200mg BID 11/09/23 CT CAP shows 5 mm pulmonary nodule in the left upper lobe. No evidence of disease in abdomenor pelvis. 02/10/24 CTCAP multiple scattered pulmonary nodules in need of short term follow up Current Therapy: bevacizumab 15mg/m2 q21 days + olaparib 200mg BID Port: Yes, working well NGS/IHC: [employer]: 09/03/23 Results of this testing were negative, meaning no genetic variant was identified in the genes analyzed; thus, no inherited/germline predisposition to cancer syndromes was identified. Last exam: 03/09/24 Code Status/AD: not addressed Chief complaint: I am seeing Narda Mayen for evaluation and management of Stage IVB HGSOC-->clear cell Interval history: Narda Mayen is a 63 y.o. who presented to the ED 03/2022 with symptoms of abdominal distension.A CT scan was performed revealing a large ovarian mass with carcinomatosis, inguinal and pelvic LADand thickening of the stomach wall. She was sen by Dr. Rodgers in Medical Oncology on 04/29/23 who ordered additional work up and referred to senior chemical process engineer oncology. CT chest did not show metastatic disease. CA-12 5 was performed and elevated at 751. 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 She was started on NACT with carbo/taxol/sima as noted above. She underwent surgical debulking with Dr. Humphries. She has completed post- operative chemotherapy. She is currently receiving maintenance therapy in the form of bevacizumab 15mg/m2 q21 days + olaparib 200mg BID. Dose reductions of olaparib due to thrombocytopenia Tolerating dose ok Has repeat PETCT scheduled end of August to follow pulmonary nodules Weight 114lbs November denies recent changes to urinary or bowel habits. Denies newly diminished appetite, nausea, vomiting, new onset pain, abdominal bloating, or vaginal bleeding. Lab Results Component Value Date/Time CA125 6 06/23/2024 11:46 AM CA125 6 06/02/2024 10:33 AM CA125 6 05/12/2024 11:38 AM CA125 6 04/21/2024 10:34 AM CA125 5 03/31/2024 11:41 AM CA125 6 03/09/2024 10:09 AM CA125 5 02/17/2024 01:26 PM CA125 7 01/27/2024 10:48 AM CA125 7.1 01/07/2024 11:35 AM CA125 7 01/07/2024 12:00 AM CA125 7 12/16/2023 12:07 PM CA125 7 12/02/2023 07:37 AM CA125 7 11/26/2023 12:22 PM CA125 8 11/05/2023 09:18 AM CA125 6 10/15/2023 07:43 AM CA125 7 09/23/2023 02:18 PM CA125 9 09/03/2023 08:04 AM CA125 32 07/09/2023 09:01 AM CA125 57 (H) 06/18/2023 08:16 AM CA125 304.0 (H) 05/28/2023 07:30 AM Review of Systems Constitutional: Positive for malaise/fatigue. Negative for fever and weight loss. HENT: Positive for congestion. Respiratory: Positive for cough and shortness of breath. Cardiovascular: Negative for chest pain, palpitations and leg swelling. Gastrointestinal: Negative for abdominal pain, constipation, diarrhea, heartburn, nausea and vomiting. Genitourinary: Negative for dysuria, frequency and urgency. Musculoskeletal: Negative for myalgias and neck pain. Skin: Negative for rash. Neurological: Negative for dizziness, weakness and headaches. Psychiatric/Behavioral: Negative for depression. All other systems reviewed and are negative. Pertinent imaging studies: 05/31/24 PETCT IMPRESSION: 1. Small pulmonary nodules in the right middle lobe and the left upper lobe are mildly hypermetabolic, concerning given the small nodule size. Concern for metastatic disease remains. The possibility that these represent infectious/inflammatory nodules is not excluded. 2. Streaky opacities in the right upper lobe, new from 05/18/2024, or almost certainly infectious/inflammatory in etiology. 3. Hysterectomy/salpingo-oophorectomy. No evidence of pelvic recurrence. 05/18/24 CTCAP IMPRESSION: 1. New solid pulmonary nodules, largest measuring 6 mm, concerning for metastatic disease. 2. No evidence of metastatic disease in the abdomen or pelvis. 02/10/24 CTCAP IMPRESSION: Interval development of multiple scattered pulmonary nodules in need of short- term follow-up as described above. IMPRESSION: No evidence of new or recurrent disease. 11/09/23 CTCAP IMPRESSION: 1. New 5 mm pulmonary nodule in the left upper lobe is indeterminate in isolation. Consider three month follow-up chest CT versus further evaluation with PET/CT. 2. No CT evidence of metastatic disease in the abdomen or pelvis. 07/21/23 CTCAP (after 3 cycles of chemotherapy) 05/01/23 CT Chest 04/16/23 CTAP Pathology/Histology/Cytology results: 08/06/23 FINAL DIAGNOSIS A. Uterus with cervix and bilateral fallopian tubes and ovaries, hysterectomy with salpingo-oophorectomy: Right fallopian tube and ovary: - Clear cell carcinoma (10.7 cm) of ovary with extensive necrosis, positive for ovarian surface involvement. See microscopic description and synoptic report. - Fallopian tube with scattered serosal adhesions, focally involved by carcinoma. Left fallopian tube and ovary: - Ovary with scattered surface adhesions, focally involved by carcinoma. - Fallopian tube with scattered serosal adhesions, focally involved by carcinoma. - Benign paratubal cyst. Cervix: - Inflammatory/reactive changes. Endomyometrium: - Endometrial polyp. - Endometrial basalis. - Unremarkable myometrium. Serosa: - Adhesions. B. Omentum, biopsy: - Metastatic carcinoma. - Tumor deposit measuring 1.8 cm. C. Small bowel, mesentery of small bowel nodule, biopsy: - Metastatic carcinoma. - Cautery artifact. D. Diaphragm, diaphragmatic tumor, biopsy: - Metastatic carcinoma. E. Lymph node, right inguinal lymph node, excisional biopsy: - Two (2) lymph nodes with metastatic carcinoma (2/2). Component FINAL DIAGNOSIS A. Uterus with cervix and bilateral fallopian tubes and ovaries, hysterectomy with salpingo-oophorectomy: Right fallopian tube and ovary: - Clear cell carcinoma (10.7 cm) of ovary with extensive necrosis, positive for ovarian surface involvement. See microscopic description and synoptic report. - Fallopian tube with scattered serosal adhesions, focally involved by carcinoma. Left fallopian tube and ovary: - Ovary with scattered surface adhesions, focally involved by carcinoma. - Fallopian tube with scattered serosal adhesions, focally involved by carcinoma. - Benign paratubal cyst. Cervix: - Inflammatory/reactive changes. Endomyometrium: - Endometrial polyp. - Endometrial basalis. - Unremarkable myometrium. Serosa: - Adhesions. B. Omentum, biopsy: - Metastatic carcinoma. - Tumor deposit measuring 1.8 cm. C. Small bowel, mesentery of small bowel nodule, biopsy: - Metastatic carcinoma. - Cautery artifact. D. Diaphragm, diaphragmatic tumor, biopsy: - Metastatic carcinoma. E. Lymph node, right inguinal lymph node, excisional biopsy: - Two (2) lymph nodes with metastatic carcinoma (2/2). at 1720 DIAGNOSIS COMMENT Ancillary testing will be performed upon request. GROSS DESCRIPTION The specimens are received in five containers each labeled Narda Eileen Tiarra . Received in the first container additionally labeled uterus, cervix, bilateral ovaries, bilateral fallopian tubes is a 40 g uterus measuring 7 cm from fundus to cervix, 4 cm from cornu to cornu, and 3 cm from anterior to posterior with attached left ovary (2.8 x 1.2 x 1.2 cm) and left fallopian tube (3.3 x 0.1 cm). The serosal surface is pink-calhoun, focally erythematous and roughened. The ectocervical mucosa is pale-calhoun, focally erythematous smooth and rubbery with a 0.5 cm cervical os. The uterus is bisected to show a 2.9 x 2 cm endometrial cavity that is lined by pale-calhoun, smooth endometrium measuring up to 0.1 cm. The endocervical canal measures 3.1 x 0.7 cm and demonstrates herringbone pattern. The anterior endometrial cavity contains a 1 x 0.7 x 0.3 cm pink-red, sessile polyp locatedwithin the fundus. The calhoun-pink, trabeculated myometrium with a maximum wall thickness of 1.4 cm. The calhoun-yellow to pink-cancino, cerebriform left ovary is sectioned to show a calhoun-yellow to pink-cancino towhite, variegated cut surface that is grossly unremarkable. The left pink-red, fimbriated fallopian tube is sectioned to show a complete pinpoint, stellate lumen. Received in the same container is a 10.7 x 8.4 x 5.5 cm intact pink-cancino to calhoun-yellow lobulated nodular cystic mass with attached fallopian tube measuring 4.4 x 0.6 cm. The capsule is smooth without papillations or nodularities identified. Sections show a multiloculated cut surface containing multiple pink-cancino to calhoun-yellow to white, focally hemorrhagic, rubbery solid components. The specimen contains clear serous fluid. There aremultiple mucinous cysts measuring 1.5 cm in greatest dimension. The attached fallopian tube is sectioned to show a complete pinpoint, stellate lumen. Advertising Solicitor sections are submitted in cassettes labeled A1-anterior cervix; A2-anterior polyp, submitted entirely; A3-anterior endomyometrium; A4-posterior cervix; A5-posterior endomyometrium; A6-left ovary; A7-left fallopian tube, fimbria submitted entirely; A8-presumed right fallopian tube, fimbria submitted entirely; A9 through C48-kfiugh mass (2 sections in each cassette) with mucinous component in 9-10. Received in the second container additionally labeled omentum are 2 irregular fragments of calhoun-yellow to red-brown lobulated omentum measuring 35.8 x 6 x 2 cm in aggregate. Sections show a calhoun-yellow, fatty cut surface containing multiple pink-cancino firm nodules measuring up to 1.8 cm in greatest dimension. Advertising Solicitor sections are submitted in cassettes labeled B1 through B5. Received in the third container additionally labeled mesentery of small bowel nodule is a single irregular fragment of pale-calhoun tissue measuring 0.1 cm in greatest dimension. Entirely submitted in cassette labeled C1. Received in the fourth container additionally labeled diaphragmatic tumor are 7 irregular fragments of pink-red membranous tissue measuring up to 0.6 cm in greatest dimension. Entirely submitted incassette labeled D1. Received in the fifth container additionally labeled right inguinal lymph nodes is a single irregular fragment of calhoun-yellow, lobulated adipose tissue measuring 5.8 x 1.8 x 1.3 cm. The adipose tissue contains 2 pink-cancino lymph nodes ranging from 1.3 to 1.5 cm in greatest dimension. The lymph nodes are submitted entirely in cassettes labeled E1 and E2 (1 lymph node, bisected in each cassette). SMB MICROSCOPIC DESCRIPTION The slides are labeled [id number] and November. Sections of the salpingo-oophorectomy (A) reveal a clear cell carcinoma in the right ovary, measuring 10.7 cm. The tumor exhibits a diverse architectural spectrum, including a tubulocystic pattern with tubules and cysts containing eosinophilic secretions, lined by a single layer of hobnail, cuboidal cells. The papillary pattern comprises simple, non-branching papillae with round stromal cores, some displaying hierarchical branching. Cells exhibit cuboidal and/or hobnail morphology, arranged in a single layer with minimal stratification. The solid pattern displays sheets of polyhedral cells by delicate septa, featuring large, monomorphic nuclei with rounded to angulated contours, hy perchromasia, prominent nucleoli, and focal nuclear pleomorphism. Mitotic activity is low (< 5/10HPF), and rare psammoma bodies are identified. Extensive tumor necrosis is attributed to the patient's history of neoadjuvant chemotherapy. Immunohistochemistry reveals a staining profile in lesionalcells, including strong diffuse positivity for CK7 and PAX8, weak patchy positivity for AMACR and Napsin A, p53 overexpression with heterogeneity, focal positivity for ER, and rare DE positivity. Negative staining is observed for WT1 and CK20. Although weak patchy positivity for AMACR and Napsin A,and focal positivity for ER and rare DE positivity are unusual for clear cell carcinoma, these deviations may be attributed to neoadjuvant chemotherapy-induced phenotype changes. Focal areas raise concerns of high-grade serous carcinoma, but considering morphological and immunohistochemical findings, the most appropriate diagnosis is clear cell carcinoma. The right fallopian tube exhibits scattered serosal adhesions and focal involvement by carcinoma, while the left ovary and fallopian tube show scattered surface adhesions and focal carcinoma involvement. A benign paratubal cyst is also noted. Selected slides from this case were reviewed in intradepartmental consultation. Sections of the uterus with cervix (A) reveal cervical inflammatory/reactive changes, an endometrial polyp, and unremarkable myometrium. Serosal adhesions are present. Sections of the omentum biopsy (B) indicate metastatic carcinoma with a tumor deposit measuring 1.8cm. Sections of the mesentery of a small bowel nodule biopsy (C) show metastatic carcinoma, with cautery artifact present. Sections of the diaphragmatic tumor biopsy (D) show metastatic carcinoma. Sections of the right inguinal lymph node excisional biopsy (E) show two lymph nodes with metastatic carcinoma, consistent with distant metastasis. SYNOPTIC REPORT OVARY or FALLOPIAN TUBE or PRIMARY PERITONEUM 8th Edition - Protocol posted: 10/29/2022OVARY OR FALLOPIAN TUBE OR PRIMARY PERITONEUM - All Specimens SPECIMEN Procedure Total hysterectomy and bilateral salpingo-oophorectomy Hysterectomy Type Abdominal Specimen Integrity Right Ovary Integrity Capsule intact Uterus Integrity Intact TUMOR Tumor Site Right ovary Tumor Size Greatest Dimension (Centimeters): 10.7 cm Additional Dimension (Centimeters) 8.4 cm 5.5 cm Histologic Type Clear cell carcinoma Ovarian Surface Involvement Present, right and left Fallopian Tube Surface Involvement Present, right and left Other Tissue / Organ Involvement Omentum Mesentery of small bowel; diaphragm Largest Extrapelvic Peritoneal Focus Macroscopic (2 cm or less): Omentum Peritoneal / Ascitic Fluid Involvement Malignant cells present REGIONAL LYMPH NODES Regional Lymph Node Status Not applicable (no regional lymph nodes submitted or found) DISTANT METASTASIS Distant Site(s) Involved Inguinal or retroperitoneal lymph node(s) and lymph node(s) outside the abdominal cavity pTNM CLASSIFICATION (AJCC 8th Edition) Reporting of pT, pN, and (when applicable) pM categories is based on information available to the pathologist at the time the report is issued. As per the AJCC (Chapter 1, 8th Ed.) it is the managingphysician???s responsibility to establish the final pathologic stage based upon all pertinent information, including but potentially not limited to this pathology report. Modified Classification y pT Category pT3b pN Category pN not assigned (no nodes submitted or found) pM Category pM1b . FINAL DIAGNOSIS Pelvic washing: - Positive for malignant cells. See microscopic description. 04/29/[address] [facility] [address] review Component FINAL DIAGNOSIS [place] [address] (OSC [id number]; 04/29/2023 and [id number]; 05/06/2023) [id number] Ascites fluid, cytologic examination: - CK7 positive adenocarcinoma. [id number] Lymph node, right inguinal, biopsy: - Metastatic carcinoma most compatible with high-grade serous carcinoma. See comment. at 1237 MICROSCOPIC DESCRIPTION Received are slides labeled [id number] and [id number] and NovemberKarely Tiarra. Microscopic examination of the ascites fluid shows clusters of severely atypical epithelioid cells on the cell block preparation and cytospin slides. This population is immunoreactive with CK7 and shows no expression of CK20, GATA3, CEA, CA 19-9, calretinin, WT1, estrogen receptor, and vimentin. The cytomorphology is that of an adenocarcinoma and the immunophenotype is nonspecific as to site of origin. Sections of the lymph node biopsy ([id number]) show cores of lymph node involved by carcinoma with papillary formation as well as more solid nests with central necrosis. The tumor cells exhibit marked nuclear enlargement, pleomorphism, and prominent nucleoli. Apoptotic bodies and mitotic figures are frequent. This population shows diffuse and strong immunoreactivity with CK7, CK5, PAX8, and WT1. No immunoreactivity is seen with p63, CD10, CK20, CDX2, calretinin, and CEA. A small subset of tumorcells express CA 19-9. A subset of tumor cells show moderate to strong expression of GATA3, estrogen receptor, and TTF-1. The cytomorphology and immunophenotype are that of a high-grade adenocarcinoma of m??llerian origin; high-grade serous carcinoma is most compatible entity. p53 immunostaining isnot performed/not reported. The reporting delay incurred by procurement of the surgical pathology material in addition to the cytology material was communicated to Dr. Humphries on 05/15/23. The availability of final results wascommunicated to Dr. Humphries on 05/26/23. Recent Labs 07/11/24 0827 WBC 4.6 HGB 11.7* HCT 34.4* PLT 127* NA 138 K 3.8 CL 104 CO2 25 BUN 9 CREAT 0.88 GLUCOSE 145* ALT 23 AST 27 Past Medical History: Diagnosis Date COPD (chronic obstructive pulmonary disease) with emphysema History of chemotherapy Hyperlipidemia Ovarian cancer 04/2023 s/p chemotherapy Smoking greater than 20 pack years Past Surgical History: Procedure Laterality Date CYSTOSCOPY N/A 08/06/2023 CYSTOURETHROSCOPY performed by Aviva Humphries MD at [facility] HX BLADDER REPAIR N/A 08/06/2023 BLADDER REPAIR performed by Aviva Humphries MD at [facility] OR [facility] HX BUNIONECTOMY Bilateral 2009 HX SECTION 1982,1985,1994 HX PORTACATH PLACEMENT Right 2022 HX URETEROLYSIS Bilateral 08/06/2023 URETEROLYSIS performed by Aviva Humphries MD at [facility] OR [facility] DE BX/EXC LYMPH NODE OPEN SUPERFICIAL Right 08/06/2023 INGUINAL OR FEMORAL LYMPH NODE BIOPSY/EXCISION performed by Aviva Humphries MD at [facility] OR [facility] DE LAPAROSCOPY W/RMVL ADNEXAL STRUCTURES N/A 08/06/2023 SALPINGO-OOPHORECTOMY LAPAROSCOPIC performed by Aviva Humphries MD at [facility] OR [facility] DE OMNTC EPIPLOECTOMY RESCJ OMENTUM SPX N/A 08/06/2023 OMENTECTOMY performed by Aviva Humphries MD at [facility] OR [facility] DE TOTAL ABDOMINAL HYSTERECT W/WO RMVL TUBE OVARY N/A 08/06/2023 HYSTERECTOMY ABDOMINAL TOTAL performed by Aviva Humphries MD at [facility] OR [facility] DE UNLISTED PROCEDURE DIAPHRAGM N/A 08/06/2023 DIAPHRAGM BIOPSY performed by Aviva Humphries MD at [facility] OR [facility] Allergies Allergen Reactions Penicillins Rash Ciprofloxacin Rash Current Outpatient Medications: olaparib 100 mg tablet, Take 2 Tablets (200 mg) by mouth 2 times daily., Disp: 120 Tablet, Rfl: 0 losartan (COZAAR) 50 mg tablet, Take 50 mg by mouth daily., Disp: , Rfl: lidocaine-prilocaine (EMLA) 2.5-2.5 % Cream, APPLY A THIN LAYER OVER PORT SITE 30-45 MINUTES PRIOR TO CHEMOTHERAPY., Disp: 30 Gram, Rfl: 0 loratadine (CLARITIN) 10 mg tablet, Take 10 mg by mouth daily., Disp: , Rfl: pyridoxine HCl, vitamin B6, (PYRIDOXINE, VITAMIN B6, ORAL), Take by mouth., Disp: , Rfl: cholecalciferol, vitamin D3, 350 mcg (14,000 unit) Wafer, Take by mouth., Disp: , Rfl: docusate sodium (COLACE ORAL), Take by mouth., Disp: , Rfl: Advair Diskus 250-50 mcg/dose disk inhaler, 1 Puff by See Admin Instructions route see administration instructions., Disp: , Rfl: Miscellaneous Medical Supply, Cranial prosthesis DX: L64.0, Disp: 1 Each, Rfl: 0 ondansetron (Zofran) 8 mg Tablet, Take 1 Tablet (8 mg) by mouth every 8 hours as needed for Nausea., Disp: 30 Tablet, Rfl: 3 prochlorperazine maleate (COMPAZINE) 10 mg tablet, Take 1 Tablet (10 mg) by mouth every 6 hours as needed for Nausea/Emesis., Disp: 30 Tablet, Rfl: 3 albuterol sulfate HFA 90 mcg/actuation aerosol inhaler, Take 1 Puff by inhalation every 6 hours as needed., Disp: , Rfl: atorvastatin (LIPITOR) 20 mg tablet, Take 20 mg by mouth daily at bedtime., Disp: , Rfl: fluticasone propionate (FLONASE) 50 mcg/spray [place], Suspension nasal inhaler, Administer 2 Sprays in each nostril daily., Disp: , Rfl: omega-3 fatty acids-fish oil 300-1,000 mg Capsule, Take 2 Capsules by mouth daily., Disp: , Rfl: No current facility-administered medications for this visit. Facility-Administered Medications Ordered in Other Visits: [COMPLETED] heparin, porcine (pf) 10 unit/mL IV syringe 50 Units, 50 Units, IV, ONE time only, Aviva Humphries MD, 50 Units at 07/11/24 0840 [COMPLETED] sodium chloride flush injection 20 mL, 20 mL, IV, ONE time only, Aviva Humphries MD, 20 mL at 07/11/24 0839 FAMILY HISTORY: Cancer-related family history includes Lung Cancer (age of onset: 60 - 69) in her father. No uterine, cervix, ovarian, breast or colon cancer OBHx: ; x3 SOD STRIPPER HISTORY: Abnormal Pap: denies Menopause: 54ish; no PMB Social: Social History Tobacco Use Smoking Status Every Day Current packs/day: 0.50 Average packs/day: 0.5 packs/day for 35.0 years (17.5 ttl pk-yrs) Types: Cigarettes Smokeless Tobacco Never TOBACCO COUNSELING She was counseled to discontinue tobacco/nicotine use. Down to half pack per day. 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 BP 136/84 (BP Location: Left arm, Patient Position (BP): Sitting, BP Cuff Size: Adult) Pulse 91 Temp 97.7 ??F (36.5 ??C) (Oral) Resp 16 Ht 5' 6 (1.676 m) Wt 51.9 kg (114 lb 6.4 oz) LMP (LMP Unknown) SpO2 97% BMI 18.46 kg/m?? ECOG PS: 0 HEAD: Normocephalic, atraumatic. EYES: Conjunctivae and lids were normal. Puffiness inferior to R eye. RESPIRATORY: Normal respiratory effort. CARDIOVASCULAR: No lower extremity varicosities were noted. No peripheral edema noted. ABDOMEN: Soft, non-tender, no masses. LYMPHATICS: No cervical lymphadenopathy palpated. MUSCULOSKELETAL: The upper and lower extremities had full range of movement and had equal muscle strength. SKIN: No rashes, lesions, or subcutaneous nodules noted. NEUROLOGIC: Cranial nerves were grossly intact. MENTAL STATUS: Affect was appropriate. PELVIC EXAM: deferred ASSESSMENT and PLAN: 1. Malignant neoplasm of ovary, unspecified laterality CHEMOTHERAPY APPOINTMENT REQUEST B URINALYSIS WITH REFLEX CULTURE CBC WITH DIFFERENTIAL COMPREHENSIVE METABOLIC PANEL CANCER ANTIGEN 125 2. Maintenance antineoplastic chemotherapy Narda is a 63 y.o. 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 She has completed 3 cycles of NACT with carbo/taxol/sima (sima held with cycle 3). She has undergone interval cytoreductive surgery to no gross residual disease. She completed 3 additional cycles of chemotherapy post surgery. Now on maintenance therapy. Completion of primary treatment: 10/15/23 Maintenance therapy initiated: 11/05/23 bevacizumab, 11/19/23 olaparib -Repeat CTCAP 05/18/24 with new pulmonary nodules concerning for metastatic disease. PETCT 05/31/24 inconclusive. Will repeat in 3 months-->scheduled at end 08/2024. -Continue maintenance bevacizumab 15mg/m2 q21 days + olaparib 200mg BID. -Labs and toxicity profile reviewed and acceptable for treatment. -Continue weekly CBC at this time Return to clinic: f/u in 6 weeks with Elisa Pettit NP Thank you for involving [facility] Gynecologic Oncology in the care of this patient. OMER SUCCESS SPECIALIST documented in this encounter Miscellaneous Notes * Result Encounter Note - Aviva Humphries MD - 07/21/2024 7:35 AM CUSTOMER SUCCESS SPECIALIST Looks good OMER SUCCESS SPECIALIST * Addendum Note - Tamia Clancy RN - 07/19/2024 4:25 PM CSTAddended by: TAMIA CLANCY on: 07/19/2024 04:25 PM Modules accepted: Orders OMER SUCCESS SPECIALIST * Addendum Note - Elisa Pettit NP - 07/11/2024 3:03 PM CSTAddended by: ELISA PETTIT on: 07/11/2024 03:03 PM Modules accepted: Orders OMER SUCCESS SPECIALIST documented in this encounter Plan of Treatment Upcoming Encounters Date Type Department Care Team (Late st Contact Info) Description 08/04/2024 1:00 PM CUSTOMER SUCCESS SPECIALIST Appointment Randy [facility] Infusion Center [facility] Fl [address] [place] [address] Aviva Humphries MD [address] [facility] [address] [place] [address] Infusion Chair 5, 2nd Floor [place] 08/25/2024 1:00 PM CUSTOMER SUCCESS SPECIALIST Office Visit [facility] Gynecologic Oncology [place] [address] [facility] [address] [facility] [place] [address] Elisa Pettit NP [address] [facility] [address] [place] [address] 08/25/2024 1:30 PM CUSTOMER SUCCESS SPECIALIST Appointment Randy Hall [facility] Infusion Center 2nd Fl [address] [place] [address] Aviva Humphries MD [address] [facility] [address] [facility] [place] [address] Infusion Chair 1, 2nd Floor Hall 09/01/2024 10:45 AM CUSTOMER SUCCESS SPECIALIST Appointment Randy [facility] Nuclear Medicine [address] [place] [address] [id number] Elisa Pettit NP [address] [facility] [address] [place] [address] Scheduled Orders Name Type Priority Associated Diagnoses Orde r Schedule URINALYSIS WITH REFLEX CULTURE Lab Stat Malignant neoplasm of ovary, unspecified laterality Expected: 08/04/2024, Expires: 08/04/2025 CBC WITH DIFFERENTIAL Lab Stat Malignant neoplasm of ovary, unspecified laterality Expected: 08/04/2024, Expires: 08/04/2025 COMPREHENSIVE METABOLIC PANEL Lab Stat Malignant neoplasm of ovary, unspecified laterality Expected: 08/04/2024, Expires: 08/04/2025 CANCER ANTIGEN 125 Lab Routine Malignant neoplasm of ovary, unspecified laterality Expected: 08/04/2024, Expires: 08/04/2025 CBC WITH DIFFERENTIAL Lab Routine Maintenance antineoplastic chemotherapy Expected: 07/27/2024 (Approximate), Expires: 07/11/2025 documented as of this encounter Procedures Procedure Name Priority Date/Time Associated Diagnosis Comments CBC WITH DIFFERENTIAL Routine 07/20/2024 3:25 PM CUSTOMER SUCCESS SPECIALIST Maintenance antineoplastic chemotherapy documented in this encounter Results * (ABNORMAL) CBC WITH DIFFERENTIAL (07/20/2024 3:25 PM CUSTOMER SUCCESS SPECIALIST) WBC 4.3 3.8 - 10.8 Thousand/u L [...] [facility] Comment: [facility] Performed at: [facility] [address] [place], [place] ??[address] Radha Perez MD Blood 07/20/2024 3:25 PM CUSTOMER SUCCESS SPECIALIST 07/20/2024 3:25 PM CUSTOMER SUCCESS SPECIALIST Aviva Humphries MD HEMATOLOGY ORDERABLE S [facility] [phone] [facility] [address] [place] [address] documented in this encounter Visit Diagnoses Diagnosis Malignant neoplasm of ovary, unspecified laterality- Primary Maintenance antineoplastic chemotherapy Encounter for antineoplastic chemotherapy documented in this encounter Care Teams Hoof And Shoe Inspector Relationship Specialty Start Date End Date Shilo Soares MD [address] [place] [phone] PCP - General Internal Medicine 04/24/23 documented as of this encounter
--- OUTSIDE RECORDS SUMMARY | 2024-07-26 23:42 | XMS_ITS | Encounter Summary ---
Author Organization [facility] Address [address] [place] [address] Care Team Providers Care Cryptographic Clerk Name Role Phone Shilo Soares MD Primary Care Provider [phone] Encounter Details Date Type Department Care Team (Late Contact Info) Description 07/14/2024 External Device Data STL ABSTRACTION Provider, [...] (Late Contact Info) Description 08/04/2024 1:00 PM BUILDING CONSTRUCTION CONTRACTOR Appointment [facility] 2nd [place] [address] [place] [address] Aviva Humphries MD [address] [place] [address] Infusion Chair 5, 2nd Floor Hall 08/25/2024 1:00 PM BUILDING CONSTRUCTION CONTRACTOR Office Visit [facility] Gynecologic Oncology Hall [address] [place] [address] Edilia Pettit, CHELY [address] [facility] [address] [place] [address] 08/25/2024 1:30 PM BUILDING CONSTRUCTION CONTRACTOR Appointment [facility] 2nd Fl [address] [place] [address] Aviva Humphries MD [address] [facility] [address] [place] [address] Infusion Chair 1, 2nd Floor [place] 09/01/2024 10:45 AM BUILDING CONSTRUCTION CONTRACTOR Appointment Randy Hall [facility] Nuclear Medicine [address] [place] [address] [id number] Edilia Pettit, CHELY [address] [facility] [address] [place] [address] documented as of this encounter Visit Diagnoses Not on filedocumented in this encounter Care Teams Cryptographic Clerk Relationship Specialty Start Date End Date Shilo Soares MD [address] [place] [address] PCP - General Internal Medicine 04/24/23 documented as of this encounter
--- OUTSIDE RECORDS SUMMARY | 2024-07-26 23:42 | XMS_ITS | Encounter Summary ---
Author Organization [facility] Address [address] [place] [address] Care Team Providers Care Engineering Associate Name Role Phone Shilo Soares MD Primary Care Provider [phone] Encounter Details Date Type Department Care Team (Late Contact Info) Description 07/04/2024 External Device Data STL ABSTRACTION Provider, [...] (Late Contact Info) Description 08/04/2024 1:00 PM MEALS ON WHEELS DRIVER Appointment [facility] 2nd [place] [address] [place] [address] Aviva Humphries MD [address] [place] [address] Infusion Chair 5, 2nd Floor Hall 08/25/2024 1:00 PM MEALS ON WHEELS DRIVER Office Visit [facility] Gynecologic Oncology Hall [address] [place] [address] Edilia Pettit, CHELY [address] [facility] [address] [place] [address] 08/25/2024 1:30 PM MEALS ON WHEELS DRIVER Appointment [facility] 2nd Fl [address] [place] [address] Aviva Humphries MD [address] [place] [address] Infusion Chair 1, 2nd Floor [place] 09/01/2024 10:45 AM MEALS ON WHEELS DRIVER Appointment Randy Hall [facility] Nuclear Medicine [address] [place] [address] [phone] Edilia Pettit, CHELY [address] [facility] [address] [place] [address] documented as of this encounter Visit Diagnoses Not on filedocumented in this encounter Care Teams Engineering Associate Relationship Specialty Start Date End Date Shilo Soares MD [address] [place] [address] PCP - General Internal Medicine 04/24/23 documented as of this encounter
--- OUTSIDE RECORDS SUMMARY | 2024-07-26 23:42 | XMS_ITS | Encounter Summary ---
Author Organization Address [address] [place] [address] Care Team Providers Care Wash Driller Name Role Phone Shilo Soares MD Primary Care Provider [phone] Encounter Details Date Type Department Care Team (Late Contact Info) Description 06/26/2024 External Device Data STL ABSTRACTION Provider, [...] (Late Contact Info) Description 08/04/2024 1:00 PM INVENTORY ASSOCIATE Appointment [facility] 2nd [place] [address] [place] [address] Aviva Humphries MD [address] [place] [address] Infusion Chair 5, 2nd Floor Hall 08/25/2024 1:00 PM INVENTORY ASSOCIATE Office Visit [facility] Gynecologic Oncology Hall [address] [place] [address] Edilia Pettit, CHELY [address] [facility] [address] [place] [address] 08/25/2024 1:30 PM INVENTORY ASSOCIATE Appointment [facility] 2nd Fl [address] [place] [address] Aviva Humphries MD [address] [facility] [address] [place] [address] Infusion Chair 1, 2nd Floor [place] 09/01/2024 10:45 AM INVENTORY ASSOCIATE Appointment Randy Hall [facility] Nuclear Medicine [address] [place] [address] [phone] Edilia Pettit, CHELY [address] [facility] [address] [place] [address] documented as of this encounter Visit Diagnoses Not on filedocumented in this encounter Care Teams Wash Driller Relationship Specialty Start Date End Date Shilo Soares MD [address] [place] [address] PCP - General Internal Medicine 04/24/23 documented as of this encounter
--- OUTSIDE RECORDS SUMMARY | 2024-07-26 23:42 | XMS_ITS | Encounter Summary ---
Author Organization [facility] Address [address] [place] [address] Care Team Providers Care Senior Accounts Payable Clerk Name Role Phone Shilo Soares MD Primary Care Provider [phone] Encounter Details Date Type Department Care Team (Late Contact Info) Description 07/05/2024 External Device Data STL ABSTRACTION Provider, [...] (Late Contact Info) Description 08/04/2024 1:00 PM DRIVER TRAINEE Appointment [facility] 2nd [place] [address] [place] [address] Aviva Humphries MD [address] [place] [address] Infusion Chair 5, 2nd Floor Hall 08/25/2024 1:00 PM DRIVER TRAINEE Office Visit [facility] Gynecologic Oncology Hall [address] [place] [address] Edilia Pettit, CHELY [address] [facility] [address] [place] [address] 08/25/2024 1:30 PM DRIVER TRAINEE Appointment [facility] 2nd Fl [address] [place] [address] Aviva Humphries MD [address] [place] [address] Infusion Chair 1, 2nd Floor [place] 09/01/2024 10:45 AM DRIVER TRAINEE Appointment Randy Hall [facility] Nuclear Medicine [address] [place] [address] [id number] Edilia Pettit, CHELY [address] [facility] [address] [place] [address] documented as of this encounter Visit Diagnoses Not on filedocumented in this encounter Care Teams Senior Accounts Payable Clerk Relationship Specialty Start Date End Date Shilo Soares MD [address] [place] [address] PCP - General Internal Medicine 04/24/23 documented as of this encounter
--- OUTSIDE RECORDS SUMMARY | 2024-07-26 23:42 | XMS_ITS | Encounter Summary ---
Author Organization [facility] Address [address] [place] [address] Care Team Providers Care Aluminum Can Collector Name Role Phone Shilo Soares MD Primary Care Provider [phone] Encounter Details Date Type Department Care Team (Latest Contact Info) Description 07/04/2024 Orders Only [facility] Gynecologic Oncology Hall [address] [place] [address] Edilia Pettit, CHELY [address] [facility] [address] [place] [address] Chemotherapy-induced thrombocytopenia Social History Tobacco [...] st Contact Info) Description 08/04/2024 1:00 PM PLEATER Appointment Randy Hall [facility] Center 2nd Fl [address] [place] [address] Aviva Humphries MD [address] [facility] [address] [place] [address] Infusion Chair 5, 2nd Floor [place] 08/25/2024 1:00 PM PLEATER Office Visit [facility] Gynecologic Oncology Hall [address] [facility] [address] [place] [address] Edilia Pettit, CHELY [address] [facility] [address] [place] [address] 08/25/2024 1:30 PM PLEATER [facility]ment [facility] [address] [place] [address] Aviva Humphries MD [address] [address] [place] [address] Infusion Chair 1, 2nd Floor [place] 09/01/2024 10:45 AM PLEATER Appointment [facility] Nuclear Medicine [address] [place] [address] [phone] Edilia Pettit, CHELY [address] [facility] [address] [place] [address] documented as of this encounter Visit Diagnoses Diagnosis Chemotherapy-induced thrombocytopenia Other secondary thrombocytopenia documented in this encounter Care Teams Aluminum Can Collector Relationship Specialty Start Date End Date Shilo Soares MD [address] [place] [address] PCP - General Internal Medicine 04/24/23 documented as of this encounter
--- OUTSIDE RECORDS SUMMARY | 2024-07-26 23:42 | XMS_ITS | Encounter Summary ---
Author Organization [facility] Address [address] [place] [address] Care Team Providers Care Weather Analyst Name Role Phone Shilo Soares MD Primary Care Provider [phone] Encounter Details Date Type Department Care Team (Late Contact Info) Description 07/13/2024 External Device Data STL ABSTRACTION Provider, [...] (Late Contact Info) Description 08/04/2024 1:00 PM JAVA TECH Appointment [facility] 2nd [place] [address] [place] [address] Aviva Humphries MD [address] [place] [address] Infusion Chair 5, 2nd Floor Hall 08/25/2024 1:00 PM JAVA TECH Office Visit [facility] Gynecologic Oncology Hall [address] [place] [address] Edilia Pettit, CHELY [address] [facility] [address] [place] [address] 08/25/2024 1:30 PM JAVA TECH Appointment [facility] 2nd Fl [address] [place] [address] Aviva Humphries MD [address] [facility] [address] [place] [address] Infusion Chair 1, 2nd Floor [place] 09/01/2024 10:45 AM JAVA TECH Appointment Randy Hall [facility] Nuclear Medicine [address] [place] [address] [id number] Edilia Pettit, CHELY [address] [facility] [address] [place] [address] documented as of this encounter Visit Diagnoses Not on filedocumented in this encounter Care Teams Weather Analyst Relationship Specialty Start Date End Date Shilo Soares MD [address] [place] [address] PCP - General Internal Medicine 04/24/23 documented as of this encounter
--- OUTSIDE RECORDS SUMMARY | 2024-07-26 23:42 | XMS_ITS | Encounter Summary ---
Author Organization [facility] Address [address] [place] [address] Care Team Providers Care Nurses' Association Executive Director Name Role Phone Shilo Soares MD Primary Care Provider [phone] Encounter Details Date Type Department Care Team (Late Contact Info) Description 07/08/2024 External Device Data STL ABSTRACTION Provider, [...] (Late Contact Info) Description 08/04/2024 1:00 PM ACTUARY MANAGER Appointment [facility] 2nd Co [address] [place] [address] Aviva Humphries MD [address] [place] [address] Infusion Chair 5, 2nd Floor Hall 08/25/2024 1:00 PM ACTUARY MANAGER Office Visit [facility] Gynecologic Oncology Hall [address] [place] [address] Edilia Pettit, CHELY [address] [facility] [address] [place] [address] 08/25/2024 1:30 PM ACTUARY MANAGER Appointment [facility] 2nd Fl [address] [place] [address] Aviva Humphries MD [address] [facility] [address] [place] [address] Infusion Chair 1, 2nd Floor [place] 09/01/2024 10:45 AM ACTUARY MANAGER Appointment Randy [facility] Nuclear Medicine [address] [place] [address] [id number] Edilia Pettit, CHELY [address] [facility] [address] [place] [address] documented as of this encounter Visit Diagnoses Not on filedocumented in this encounter Care Teams Nurses' Association Executive Director Relationship Specialty Start Date End Date Shilo Soares MD [address] [place] [address] PCP - General Internal Medicine 04/24/23 documented as of this encounter
--- OUTSIDE RECORDS SUMMARY | 2024-07-26 23:42 | XMS_ITS | Encounter Summary ---
Author Organization [facility] Address [address] [place] [address] Care Team Providers Care Grounds Maintenance Worker Name Role Phone Shilo Soares MD Primary Care Provider [phone] Encounter Details Date Type Department Care Team [...] (Late Contact Info) Description 08/04/2024 1:00 PM COMMERCIAL OCEAN CLAMMER Appointment [facility] 2nd [place] [address] [place] [address] Aviva Humphries MD [address] [place] [address] Infusion Chair 5, 2nd Floor [place] 08/25/2024 1:00 PM COMMERCIAL OCEAN CLAMMER Office Visit [facility] Gynecologic Oncology Hall [address] [place] [address] Edilia Pettit, CHELY [address] [facility] [address] [place] [address] 08/25/2024 1:30 PM COMMERCIAL OCEAN CLAMMER Appointment [facility] 2nd Fl [address] [place] [address] Aviva Humphries MD [address] [place] [address] Infusion Chair 1, 2nd Floor [place] 09/01/2024 10:45 AM COMMERCIAL OCEAN CLAMMER Appointment Randy [facility] Nuclear Medicine [address] [place] [address] [id number] Edilia Pettit, CHELY [address] [address] [place] [address] documented as of this encounter Visit Diagnoses Not on filedocumented in this encounter Care Teams Grounds Maintenance Worker Relationship Specialty Start Date End Date Shilo Soares MD [address] [place] [address] PCP - General Internal Medicine 04/24/23 documented as of this encounter
--- OUTSIDE RECORDS SUMMARY | 2024-07-26 23:42 | XMS_ITS | Encounter Summary ---
Author Organization [facility] Address [address] [place] [address] Care Team Providers Care Foot Piece Assembler Name Role Phone Shilo Soares MD Primary Care Provider [phone] Encounter Details Date Type Department Care Team (Late Contact Info) Description 06/27/2024 External Device Data STL ABSTRACTION Provider, [...] (Late Contact Info) Description 08/04/2024 1:00 PM PROGRAM MEDICAL DIRECTOR Appointment [facility] 2nd [place] [address] [place] [address] Aviva Humphries MD [address] [place] [address] Infusion Chair 5, 2nd Floor [place] 08/25/2024 1:00 PM PROGRAM MEDICAL DIRECTOR Office Visit [facility] Gynecologic Oncology Hall [address] [place] [address] Edilia Pettit, CHELY [address] [facility] [address] [place] [address] 08/25/2024 1:30 PM PROGRAM MEDICAL DIRECTOR Appointment [facility] 2nd Fl [address] [place] [address] Aviva Humphries MD [address] [facility] [address] [place] [address] Infusion Chair 1, 2nd Floor [place] 09/01/2024 10:45 AM PROGRAM MEDICAL DIRECTOR Appointment Randy Hall [facility] Nuclear Medicine [address] [place] [address] [id number] Edilia Pettit, CHELY [address] [facility] [address] [place] [address] documented as of this encounter Visit Diagnoses Not on filedocumented in this encounter Care Teams Foot Piece Assembler Relationship Specialty Start Date End Date Shilo Soares MD [address] [place] [address] PCP - General Internal Medicine 04/24/23 documented as of this encounter
--- OUTSIDE RECORDS SUMMARY | 2024-07-26 23:42 | XMS_ITS | Encounter Summary ---
Author Organization [facility] Address [address] [place] [address] Care Team Providers Care Pipe Fitter Name Role Phone Shilo Soares MD Primary Care Provider [phone] Encounter Details Date Type Department Care Team ([facility] Contact Info) Description 07/05/2024 Abstract [facility] Gynecologic Oncology Hall [address] [place] [address] Aviva Humphries MD [address] [place] [address] Social History Tobacco Use Types Packs/Day Years [...] (Late Contact Info) Description 08/04/2024 1:00 PM SCHOOL FUNDRAISING DIRECTOR Appointment [facility] 2nd Fl [address] [place] [address] Aviva Humphries MD [address] [place] [address] Infusion Chair 5, 2nd Floor Hall 08/25/2024 1:00 PM SCHOOL FUNDRAISING DIRECTOR Office Visit [facility] Gynecologic Oncology Hall [address] [place] [address] Edilia Pettit NP [address] [place] [address] 08/25/2024 1:30 PM SCHOOL FUNDRAISING DIRECTOR Appointment [facility] [address] [place] [address] Aviva Humphries MD [address] [place] [address] Infusion Chair 1, 2nd Floor [place] 09/01/2024 10:45 AM SCHOOL FUNDRAISING DIRECTOR Appointment Randy Proctor [facility] Nuclear Medicine [address] [place] [address] [phone] Edilia Pettit, CHELY [address] [facility] [address] [place] [address] documented as of this encounter Visit Diagnoses Not on filedocumented in this encounter Care Teams Pipe Fitter Relationship Specialty Start Date End Date Shilo Soares MD [address] [place] [address] PCP - General Internal Medicine 04/24/23 documented as of this encounter
--- OUTSIDE RECORDS SUMMARY | 2024-07-26 23:42 | XMS_ITS | Encounter Summary ---
Author Organization [facility] Address [address] [place] [address] Care Team Providers Care Leaf Fat Scraper Name Role Phone Shilo Soares MD Primary Care Provider [phone] Encounter Details Date Type Department Care Team (Late Contact Info) Description 07/03/2024 External Device Data ST[facility] ABSTRACTION Provider, [...] (Late Contact Info) Description 08/04/2024 1:00 PM QUILT SEWER Appointment [facility] 2nd In [address] [place] [address] Aviva Humphries MD [address] [place] [address] Infusion Chair 5, 2nd Floor Hall 08/25/2024 1:00 PM QUILT SEWER Office Visit [facility] Gynecologic Oncology Hall [address] [place] [address] Edilia Pettit, CHE[place] [address] [place] [phone] 08/25/2024 1:30 PM QUILT SEWER Appointment [facility] 2nd Fl [address] [place] [address] Aviva Humphries MD [address] [place] [address] Infusion Chair 1, 2nd Floor [place] 09/01/2024 10:45 AM QUILT SEWER Appointment Randy [facility] Cancer [facility] Nuclear Medicine [address] [place] [address] [phone] Edilia Pettit, CHELY [address] [facility] [address] [place] [address] documented as of this encounter Visit Diagnoses Not on filedocumented in this encounter Care Teams Leaf Fat Scraper Relationship Specialty Start Date End Date Shilo Soares MD [address] [place] [address] PCP - General Internal Medicine 04/24/23 documented as of this encounter
--- OUTSIDE RECORDS SUMMARY | 2024-07-26 23:42 | XMS_ITS | Encounter Summary ---
Author Organization [facility] Address [address] [place] [address] Care Team Providers Care Upholstery Department Supervisor Name Role Phone Shilo Soares MD Primary Care Provider [phone] Encounter Details Date Type Department Care Team ([facility] Contact Info) Description 07/05/2024 Abstract [facility] Gynecologic Oncology Hall [address] [place] [address] Aviva Humphries MD [address] [place] [address] Social History Tobacco Use Types [...] (Late Contact Info) Description 08/04/2024 1:00 PM CASE BRIEFER Appointment Randy [facility] 2nd Fl [address] [place] [address] Aviva Humphries MD [address] [place] [address] Infusion Chair 5, 2nd Floor Hall 08/25/2024 1:00 PM CASE BRIEFER Office Visit [facility] Gynecologic Oncology Hall [address] [place] [address] Edilia Pettit NP [address] [place] [address] 08/25/2024 1:30 PM CASE BRIEFER Appointment [facility] [address] [place] [address] Aviva Humphries MD [address] [place] [address] Infusion Chair 1, 2nd Floor [place] 09/01/2024 10:45 AM CASE BRIEFER Appointment Randy Proctor [facility] Nuclear Medicine [address] [place] [address] [phone] Edilia Pettit, CHE[place] [address] [facility] [address] [place] [address] documented as of this encounter Visit Diagnoses Not on filedocumented in this encounter Care Teams Upholstery Department Supervisor Relationship Specialty Start Date End Date Shilo Soares MD [address] [place] [address] PCP - General Internal Medicine 04/24/23 documented as of this encounter
--- OUTSIDE RECORDS SUMMARY | 2024-07-26 23:43 | XMS_ITS | Encounter Summary ---
Author Organization [facility] Address [address] [place] [address] Care Team Providers Care Head Transfer Clerk Name Role Phone Shilo Soares MD Primary Care Provider [phone] Encounter Details Date Type Department Care Team (Latest Contact Info) Description 06/02/2024 10:15 AM CDT - 06/02/2024 11:59 PM CDT Hospital Encounter Randy [facility] [address] [place] [address] Aviva Humphries MD [address] [place] [address] Discharge Disposition: Home or Self [...] Sig Dispensed Refills Start Date End Date losartan (COZAAR) 50 mg tablet Take 50 [...] bedtime. 02/26/2021 fluticasone propionate (FLONASE) 50 mcg/spray [place], Suspension nasal inhaler Administer 2 Sprays in each nostril daily. omega-3 fatty acids-fish oil 300-1,000 mg Capsule Take 2 Capsules by mouth daily. olaparib 100 mg tablet Take 1 Tablet (100 mg) by mouth 2 times daily with 1 other olaparib prescription for 250 mg total. 60 Tablet 3 05/12/2024 06/24/2024 olaparib (Lynparza) 150 mg tablet Take 1 Tablet (150 mg) by mouth 2 times daily with 1 other olaparib prescription for 250 mg total. 60 Tablet 3 05/12/2024 06/24/2024 documented as of this encounter Plan of Treatment Upcoming Encounters Date Type Department Care Team (Late st Contact Info) Description 08/04/2024 1:00 PM ROOFING FOREMAN Appointment [facility] 2nd Fl [address] [place] [address] Aviva Humphries MD [address] [facility] [address] [place] [address] Infusion Chair 5, 2nd Floor Hall 08/25/2024 1:00 PM ROOFING FOREMAN Office Visit [facility] Gynecologic Oncology [place] [address] [facility] [address] [place] [address] Edilia Pettit, CHELY [address] [address] 08/25/2024 1:30 PM ROOFING FOREMAN Appointment [facility] 2nd Fl [address] [place] [address] Aviva Humphries MD [address] [facility] [address] [place] [address] Infusion Chair 1, [address] [place], [place] [phone] 09/01/2024 10:45 AM ROOFING FOREMAN Appointment [facility] Nuclear Medicine [address] [place] [address] [phone] Edilia Pettit, CHELY [address] [phone] documented as of this encounter Procedures Procedure Name Priority Date/Time Associated Diagnosis Comments DIFFERENTIAL, MANUAL Stat 06/02/2024 10:33 AM CDT [...] CDT Malignant neoplasm of ovary, unspecified laterality documented in this encounter Results * URINE CULTURE (06/02/2024 10:33 AM CDT) CULTURE No growth at 24 hours 06/03/2024 8:12 AM CDT [facility] Urine URINE SPECIMEN OBTAINED BY CLEAN CATCH PROCEDURE / Unknown Collection / Unknown 06/02/2024 10:33 AM CDT 06/02/2024 11:17 AM CDT Edilia Pettit NP MICROBIOLOGY - [facility] AL ORDERABLES [facility]# [id number] [address] [place] [address] * MANUAL DIFFERENTIAL (06/02/2024 10:33 AM CDT) PLATELET EST. Consistent w Count 06/02/2024 11:24 AM CDT [facility] ANISOCYTOSIS 1+ /hpf 06/02/2024 11:24 AM CDT [facility] - . [facility] POIKILOCYTES 1+ /hpf 06/02/2024 11:24 AM CDT [facility] MACROCYTES 2+ /hpf 06/02/2024 11:24 AM CDT [facility] SCHISTOCYTES 1+ /hpf 06/02/2024 11:24 AM CDT [facility] Blood Collection / Unknown 06/02/2024 10:33 AM CDT 06/02/2024 10:54 AM CDT Edilia Pettit NP HEMATOLOGY ORDERABLE S COM [facility] - [facility]# [id number] [address] [place] [address] * (ABNORMAL) COMPREHENSIVE METABOLIC PANEL (06/02/2024 10:33 AM CDT) SODIUM 140 136 - 145 mmol/L 06/02/2024 11:45 AM CDT [facility] [facility] POTASSIUM 3.7 3.5 - 5.0 mmol/L 06/02/2024 11:45 AM CDT [facility] CHLORIDE 106 98 - 107 mmol/L 06/02/2024 11:45 AM CDT [facility] CO2 24 22 - 29 mmol/L 06/02/2024 11:45 AM T [facility] CALCIUM 9.3 8.6 - 10.2 mg/dL 06/02/2024 11:45 AM T [facility] [facility] BUN 7(L) 8 - 23 mg/dL 06/02/2024 11:45 AM T [facility] CREATININE 0.87 0.51 - 0.95 mg/dL 06/02/2024 11:45 AM T [employer] [facility] - [facility] GLUCOSE 111(H) 74 - 99 mg/dL 06/02/2024 11:45 AM T [facility] TOTAL PROTEIN 6.9 6.7 - 8.6 g/dL 06/02/2024 11:45 AM T [facility] ALBUMIN 4.0 3.5 - 5.2 g/dL 06/02/2024 11:45 AM CDT [facility] BILIRUBIN TOTAL 0.4 0.2 - 1.1 mg/dL 06/02/2024 11:45 AM T [facility] ALKALINE PHOSPHATASE 82 35 - 104 U/L 06/02/2024 11:45 AM T [facility] [facility] AST 22 <33 U/L 06/02/2024 11:45 AM [facility] ALT 21 <34 U/L 06/02/2024 11:45 AM [facility] GFR >60 >=60 mL/min/1.7 3 sq meter 06/02/2024 11:45 AM [facility] Comment:eGFR calculated with 2020 CKD-EPI equation. Vegetarian diet, extremely high or low muscle mass, and may affect results. Cystatin C with Glomerular Filtration Rate is a suitable alternative for these patients. ANION GAP 10 8 - 16 mmol/L 06/02/2024 11:45 AM [facility] Blood Collection / Unknown 06/02/2024 10:33 AM CDT 06/02/2024 11:01 AM CDT [facility] - 06/02/2024 11:45 AM CDT Samples containing indocyanine green cause interferences on Total and/or Direct Bilirubin and must not be measured. Edilia Pettit NP CHEMISTRY ORDERABLES [facility]# [id number] [address] [place] [address] * (ABNORMAL) CBC WITH DIFFERENTIAL (06/02/2024 10:33 AM CDT) WBC 4.4 4.0 - 9.8 K/uL 06/02/2024 11:09 AM [facility] NRBCS 1 % 06/02/2024 11:09 AM [facility] [employer] [facility] RBC 2.01(L) 3.90 - 4.90 M/uL 06/02/2024 11:09 AM [facility] HEMOGLOBIN 8.2(L) 11.8 - 14.8 g/dL 06/02/2024 11:09 AM [facility] [employer] [facility] HEMATOCRIT 24.4(L) 35.5 - 44.0 % 06/02/2024 11:09 AM [facility] MCV 121.4(H) 82.0 - 99.0 fL 06/02/2024 11:09 AM [facility] [employer] [facility] - [facility] MCH 40.8(H) 27.2 - 32.6 pg 06/02/2024 11:09 AM [employer] [facility] - [facility] MCHC 33.6 31.5 - 35.5 g/dL 06/02/2024 11:09 AM [facility] [employer] [facility] - [facility] RDW 06/02/2024 11:09 AM [facility] [employer] [facility] Comment:Parameter not availa ble RDW-STDEV 06/02/2024 11:09 AM [facility] [employer] [facility] - [facility] Comment:Parameter not availa ble PLATELETS 104(L) 140 - 350 K/uL 06/02/2024 11:09 AM [facility] [employer] [facility] - [facility] MPV 11.4 9.3 - 12.4 fL 06/02/2024 11:09 AM [facility] [employer] [facility] - [facility] NEUTROPHILS 50 % 06/02/2024 11:09 AM [facility] [employer] [facility] - [facility] LYMPHOCYTES 42 % 06/02/2024 11:09 AM [facility] [employer] [facility] - [facility] MONOCYTES 7 % 06/02/2024 11:09 AM [facility] [employer] [facility] EOSINOPHILS 1 % 06/02/2024 11:09 AM [facility] [employer] [facility] BASOPHILS 1 % 06/02/2024 11:09 AM [facility] [employer] [facility] - [facility] IMMATURE GRANULOCYTES 0 % 06/02/2024 11:09 AM [facility] [employer] [facility] - [facility] NEUTROPHIL ABSOLUTE 2.18 1.90 - 7.00 K/uL 06/02/2024 11:09 AM [facility] [employer] [facility] - [facility] LYMPHOCYTE ABSOLUTE 1.83 0.70 - 4.50 K/uL 06/02/2024 11:09 AM [employer] LABORATORY SERVICES - . [facility] MONOCYTE ABSOLUTE 0.29 0.10 - 1.30 K/uL 06/02/2024 11:09 AM [employer] [facility] - [facility] EOSINOPHIL ABSOLUTE 0.04 0.00 - 0.70 K/uL 06/02/2024 11:09 AM [facility] [employer] [facility] - [facility] BASOPHILS ABSOLUTE 0.02 0.00 - 0.20 K/uL 06/02/2024 11:09 AM [facility] [employer] [facility] IMMATURE GRANULOCYTES ABSOLUTE 0.01 0.00 - 0.03 K/uL 06/02/2024 11:09 AM [facility] [employer] [facility] Blood Collection / Unknown 06/02/2024 10:33 AM CDT 06/02/2024 10:54 AM CDT Edilia Pettit NP HEMATOLOGY ORDERABLE S [facility] CLIA# [id number] [address] [place], [place] [address] * (ABNORMAL) URINALYSIS WITH REFLEX CULTURE (06/02/2024 10:33 AM CDT) COLOR UA Colorless(A ) Pale to Dark Yellow 06/02/2024 11:17 AM [facility] [employer] LAB[facility]ORY SERVICES - . [facility] CLARITY UA Clear Clear 06/02/2024 11:17 AM [facility] [employer] [facility] - . [facility] SPECIFIC GRAVITY UA 1.002(L) 1.003 - 1.035 06/02/2024 11:17 AM [facility] [employer] [facility] - . [place] PH UA 6.0 5.0 - 8.0 06/02/2024 11:17 AM [facility] [employer] [facility] SERVICES - . [facility] LEUKOCYTE ESTERASE UA 1+(A) Negative 06/02/2024 11:17 AM [facility] [employer] [facility] - . [place] NITRITE UA Negative Negative 06/02/2024 11:17 AM [facility] [facility] PROTEIN UA Negative Negative 06/02/2024 11:17 AM [facility] [employer] [facility] - . [place] GLUCOSE UA Negative Negative 06/02/2024 11:17 AM [facility] [employer] [facility]ORY SERVICES - [facility] KETONES UA Negative Negative 06/02/2024 11:17 AM [facility] [employer] [facility] SERVICES - . [facility] UROBILINOGEN UA Normal <2.0 mg/dL 11:17 AM [facility] BILIRUBIN UA Negative Negative 06/02/2024 11:17 AM CDT [facility] BLOOD UA Negative Negative 06/02/2024 11:17 AM CDT [facility] WBC UA 0-2 0 - 2 /hpf 06/02/2024 11:17 AM CDT [facility] RBC UA 0-2 0 - 2 /hpf 06/02/2024 11:17 AM CDT [facility] BACTERIA UA 1+(A) Negative /hpf 06/02/2024 11:17 AM CDT [facility] EPITHELIAL CELLS, URINE 0-5 0 - 5 /hpf 06/02/2024 11:17 AM CDT [facility] Urine URINE SPECIMEN OBTAINED BY CLEAN CATCH PROCEDURE / Unknown Collection / Unknown 06/02/2024 10:33 AM CDT 06/02/2024 11:00 AM CDT Narrative [facility] - 06/02/2024 11:17 AM CDT Based on results, a urine culture has been reflexed. Edilia Pettit NP URINE ORDERABLES [facility]# [id number] [address] [facility] [place] [address] * CANCER ANTIGEN 125 (06/02/2024 10:33 AM CDT) CA 125 6 <35 U/mL [facility] Comment: This test was performed using the Siemens Chemiluminescent method. Values obtained from different assay methods cannot be used interchangeably. CA 125 levels, regardless of value, should not be interpreted as absolute evidence of the presence or absence of disease. Test Performed at: [facility] [address] [address] ??[phone] Radha Perez MD Blood 06/02/2024 10:3 3 AM CDT 06/02/2024 10:50 AM CDT Edilia Pettit NP CHEMISTRY ORDERABLES [facility] [phone] [facility] [address] [place] [address] documented in this encounter Visit Diagnoses Diagnosis Malignant neoplasm of ovary, unspecified laterality documented in this encounter Administered Medications Inactive Administered Medications - up to 3 most recent administrations Medication Order MAR Action Action Date Dose Rate Site sodium chloride flush injection 20 mL 20 mL, IV, SEE ADMIN INSTRUCTIONS, Starting on Peace 06/02/24 at 1032, Until Thu06/03/24 at 0259, Routine Given 06/02/2024 10:33 AM CDT 20 mL documented in this encounter Care Teams Head Transfer Clerk Relationship Specialty Start Date End Date Shilo Soares MD [address] [place] [address] PCP - General Internal Medicine 04/24/23 documented as of this encounter
--- OUTSIDE RECORDS SUMMARY | 2024-07-26 23:43 | XMS_ITS | Encounter Summary ---
Author Organization [employer] Address [address] [place] [address] Care Team Providers Care Harpsichord Maker Name Role Phone Shilo Soares MD Primary Care Provider [phone] Reason for Visit * Tx/Med Therapy Plan Auth (Routine) - Authorized Specialty Diagnoses / Procedures Referred By Alison gomez Referred To Contact Diagnoses Malignant neoplasm of ovary, unspecified laterality Encounter for antineoplastic chemotherapy Nausea Procedures NV PACLITAXEL INJECTION NV CARBOPLATIN INJECTION NV INJ MVASI 10 MG NV FOSAPREPITANT INJECTION NV PALONOSETRON HCL NV DEXAMETHASONE SODIUM PHOS NV METHYLPREDNISOLONE INJECTION NV DIPHENHYDRAMINE HCL INJECTIO NV INJECTION, FAMOTIDINE, 20 MG TAXOL, CARBO, MVASI, EMEND, ALOXI, DECADRON, SOLU MEDROL, BENADRYL, PEPCID Aviva Humphries MD [address] [place] [address] [facility] Infusion [place] 2nd Floor [place] [address] [place] [address] Referral ID Status Reason Start Date Expiration Date V isits Requested Visits Authorized [id number] Authorized 05/20/2023 05/26/2025 99 99 Encounter Details Date Type Department Care Team (Latest Contact Info) Description 06/23/2024 11:52 AM FURNITURE CLEANER - 06/23/2024 11:59 PM [facility] Hospital Encounter [facility] Infusion Center 2nd Fl [address] [place] [address] Aviva Humphries MD [address] [place] [address] Infusion Chair 6, 2nd Floor Hall Discharge Disposition: Home or [...] Sign Reading Time Taken Comments Blood Pressure 152/79 06/23/2024 1:55 PM FURNITURE CLEANER Pulse 93 06/23/2024 1:45 PM FURNITURE CLEANER Temperature 36.8 ??C (98.2 ??F) 06/23/2024 1:45 PM CS T Respiratory Rate - - Oxygen Saturation - - Inhaled Oxygen Concentration - - Weight 52 kg (114 lb 9.6 oz) 06/23/2024 1:55 PM FURNITURE CLEANER Height - - Body Mass Index 18.5 06/02/2024 11:13 AM CDT documented in this encounter Medications at Time [...] bedtime. 02/26/2021 fluticasone propionate (FLONASE) 50 mcg/spray [place], Suspension nasal inhaler Administer 2 Sprays in [...] 05/12/2024 06/24/2024 documented as of this encounter Progress Notes * Carrie Lemons RN - 06/23/2024 1:00 PM CST Pt admitted to infusion center for treatment. Prior to chemotherapy administration: reviewed with pt the goal of chemotherapy regimen, the method of administration, and potential side effects. Mvasi administered via port without adverse effects. Good blood return obtained from port. Instructed pt to notify physician or go to ED if fever 100.5 F or higher, chills, or any change in condition. Pt verbalized understanding. Discharged home. Next appt 07/14. ITURE CLEANER documented in this encounter Plan of Treatment Upcoming Encounters Date Type Department Care Team (Late st Contact Info) Description 08/04/2024 1:00 PM FURNITURE CLEANER Appointment Randy [facility] [place] 2nd Fl [address] [place] [address] Aviva Humphries MD [address] [place] [address] Infusion Chair 5, 2nd Floor Hall 08/25/2024 1:00 PM FURNITURE CLEANER Office Visit [facility] Gynecologic Oncology [place] [address] [facility] [address] [place] [address] Edilia Pettit, CHELY [address] [address] 08/25/2024 1:30 PM FURNITURE CLEANER Appointment Randy [facility] Center 2nd Fl [address] [place] [address] Aviva Humphries MD [address] [place] [phone] Infusion Chair 1, 2nd Floor Hall 09/01/2024 10:45 AM FURNITURE CLEANER Appointment [facility] [address] [place] [address] [phone] Edilia Pettit, CHELY [address] [phone] documented as of this encounter Results * CANCER ANTIGEN 125 (06/23/2024 11:46 AM FURNITURE CLEANER) [facility] CA 125 6 <35 U/mL [facility] Comment: This test was performed using the Siemens Chemiluminescent method. Values obtained from different assay methods cannot be used interchangeably. CA 125 levels, regardless of value, should not be interpreted as absolute evidence of the presence or absence of disease. Test Performed at: [facility] [address] [place], [place] ??[address] Radha Perez MD Blood 06/23/2024 11:4 6 AM FURNITURE CLEANER 06/23/2024 12:14 PM FURNITURE CLEANER Edilia Pettit NP CHEMISTRY ORDERABLES [facility] [phone] [facility] [address] [place] [address] * (ABNORMAL) COMPREHENSIVE METABOLIC PANEL (06/23/2024 11:46 AM FURNITURE CLEANER) SODIUM 139 136 - 145 mmol/L 06/23/2024 12:56 PM FURNITURE CLEANER [facility] POTASSIUM 4.3 3.5 - 5.0 mmol/L 06/23/2024 12:56 PM FURNITURE CLEANER [facility] CHLORIDE 105 98 - 107 mmol/L 06/23/2024 12:56 PM FURNITURE CLEANER [facility] CO2 26 22 - 29 mmol/L 06/23/2024 12:56 PM FURNITURE CLEANER [facility] CALCIUM 9.0 8.6 - 10.2 mg/dL 06/23/2024 12:56 PM FURNITURE CLEANER [facility] BUN 9 8 - 23 mg/dL 06/23/2024 12:56 PM FURNITURE CLEANER [facility] CREATININE 0.81 0.51 - 0.95 mg/dL 06/23/2024 12:56 PM FURNITURE CLEANER [facility] GLUCOSE 127(H) 74 - 99 mg/dL 06/23/2024 12:56 PM FURNITURE CLEANER [facility] TOTAL PROTEIN 6.7 6.7 - 8.6 g/dL 06/23/2024 12:56 PM FURNITURE CLEANER [facility] ALBUMIN 4.2 3.5 - 5.2 g/dL 06/23/2024 12:56 PM FURNITURE CLEANER [facility] BILIRUBIN TOTAL 0.4 0.2 - 1.1 mg/dL 06/23/2024 12:56 PM [facility] ALKALINE PHOSPHATASE 85 35 - 104 U/L 06/23/2024 12:56 PM [facility] AST 36(H) <33 U/L 06/23/2024 12:56 PM [facility] ALT 36(H) <34 U/L 06/23/2024 12:56 PM [facility] GFR >60 >=60 mL/min/1.7 3 sq meter 06/23/2024 12:56 PM [facility] Comment:eGFR calculated with 2020 CKD-EPI equation. Vegetarian diet, extremely high or low muscle mass, and may affect results. Cystatin C with Glomerular Filtration Rate is a suitable alternative for these patients. ANION GAP 8 8 - 16 mmol/L 06/23/2024 12:56 PM [facility] Blood Collection / Unknown 06/23/2024 11:46 AM FURNITURE CLEANER 06/23/2024 12:14 PM [facility] - 06/23/2024 12:56 PM FURNITURE CLEANER Samples containing indocyanine green cause interferences on Total and/or Direct Bilirubin and must not be measured. Edilia Pettit NP CHEMISTRY ORDERABLES [facility]# [id number] [address] [place] [id number] * (ABNORMAL) CBC WITH DIFFERENTIAL (06/23/2024 11:46 AM FURNITURE CLEANER) Pathologist [facility] WBC 4.4 4.0 - 9.8 K/uL 06/23/2024 11:55 AM [facility] RBC 2.92(L) 3.90 - 4.90 M/uL 06/23/2024 11:55 AM [facility] HEMOGLOBIN 11.6(L) 11.8 - 14.8 g/dL 06/23/2024 11:55 AM [facility] HEMATOCRIT 34.3(L) 35.5 - 44.0 % 06/23/2024 11:55 AM FURNITURE CLEANER [facility] MCV 117.5(H) 82.0 - 99.0 fL 06/23/2024 11:55 AM FURNITURE CLEANER [facility] MCH 39.7(H) 27.2 - 32.6 pg 06/23/2024 11:55 AM FURNITURE CLEANER [facility] MCHC 33.8 31.5 - 35.5 g/dL 06/23/2024 11:55 AM FURNITURE CLEANER [facility] RDW 22.0(H) 11.5 - 14.5 % 06/23/2024 11:55 AM FURNITURE CLEANER [facility] RDW-STDEV 92.3(H) 37.1 - 48.7 fL 06/23/2024 11:55 AM FURNITURE CLEANER [facility] PLATELETS 166 140 - 350 K/uL 06/23/2024 11:55 AM FURNITURE CLEANER [facility] MPV 9.8 9.3 - 12.4 fL 06/23/2024 11:55 AM FURNITURE CLEANER [facility] NEUTROPHILS 51 % 06/23/2024 11:55 AM FURNITURE CLEANER [facility] LYMPHOCYTES 39 % 06/23/2024 11:55 AM FURNITURE CLEANER [facility] MONOCYTES 8 % 06/23/2024 11:55 AM FURNITURE CLEANER [facility] EOSINOPHILS 1 % 06/23/2024 11:55 AM FURNITURE CLEANER [facility] BASOPHILS 1 % 06/23/2024 11:55 AM FURNITURE CLEANER [facility] IMMATURE GRANULOCYTES 1 % 06/23/2024 11:55 AM FURNITURE CLEANER [facility] Comment:IG (Immature Granulo cyte) count includes Metamyelocytes, Myelocytes, and Promyelocytes NEUTROPHIL ABSOLUTE 2.24 1.90 - 7.00 K/uL 06/23/2024 11:55 AM FURNITURE CLEANER [facility] LYMPHOCYTE ABSOLUTE 1.73 0.70 - 4.50 K/uL 06/23/2024 11:55 AM FURNITURE CLEANER [facility] MONOCYTE ABSOLUTE 0.34 0.10 - 1.30 K/uL 06/23/2024 11:55 AM FURNITURE CLEANER [facility] EOSINOPHIL ABSOLUTE 0.05 0.00 - 0.70 K/uL 06/23/2024 11:55 AM FURNITURE CLEANER [facility] BASOPHILS ABSOLUTE 0.03 0.00 - 0.20 K/uL 06/23/2024 11:55 AM FURNITURE CLEANER [facility] IMMATURE GRANULOCYTES ABSOLUTE 0.02 0.00 - 0.03 K/uL 06/23/2024 11:55 AM [facility] Blood Collection / Unknown 06/23/2024 11:46 AM FURNITURE CLEANER 06/23/2024 11:49 AM FURNITURE CLEANER Edilia Pettit NP HEMATOLOGY ORDERABLE S [facility] - [facility] CLIA# [id number] [address] [facility] [place] [address] * (ABNORMAL) URINALYSIS WITH REFLEX CULTURE (06/23/2024 11:46 AM FURNITURE CLEANER) COLOR UA Colorless(A ) Pale to Dark Yellow 06/23/2024 12:19 PM [facility] [employer] - . [facility] CLARITY UA Clear Clear 06/23/2024 12:19 PM [facility] [employer] - . [facility] SPECIFIC GRAVITY UA 1.004 1.003 - 1.035 06/23/2024 12:19 PM [facility] - . [place] PH UA 7.0 5.0 - 8.0 06/23/2024 12:19 PM [facility] LEUKOCYTE ESTERASE UA Negative Negative 06/23/2024 12:19 PM FURNITURE CLEANER [facility] NITRITE UA Negative Negative 06/23/2024 12:19 PM FURNITURE CLEANER [facility] PROTEIN UA Negative Negative 06/23/2024 12:19 PM [facility] [employer] - . [facility] GLUCOSE UA Negative Negative 06/23/2024 12:19 PM FURNITURE CLEANER [employer] - . [facility] KETONES UA Negative Negative 06/23/2024 12:19 PM FURNITURE CLEANER [employer] - [facility] UROBILINOGEN UA Normal <2.0 mg/dL 12:19 PM FURNITURE CLEANER [facility] - [facility] BILIRUBIN UA Negative Negative 06/23/2024 12:19 PM FURNITURE CLEANER [facility] - [facility] BLOOD UA Negative Negative 06/23/2024 12:19 PM FURNITURE CLEANER [facility] - [facility] Urine URINE SPECIMEN OBTAINED BY CLEAN CATCH PROCEDURE / Unknown Collection / Unknown 06/23/2024 11:46 AM FURNITURE CLEANER 06/23/2024 12:07 PM FURNITURE CLEANER Edilia Pettit NP URINE ORDERABLES [facility] CLIA# [id number] [address] [place] [address] documented in this encounter Visit Diagnoses Diagnosis [...] IV, ONE TIME ONLY, 1 dose, On Thu06/23/24 at 1400, Routine Rate Verify 06/23/2024 2:17 PM FURNITURE CLEANER 291.8 mL/hr New Bag 06/23/2024 2:17 PM FURNITURE CLEANER 773 mg 291.8 mL/hr heparin, porcine (pf) 10 unit/mL IV syringe 50 Units 50 Units, IV, ONE TIME ONLY, 1 dose, On Thu06/23/24 at 1500, Routine Given 06/23/2024 2:58 PM FURNITURE CLEANER 50 Units sodium chloride 0.9% infusion IV, at 30-999 mL/hr, CONTINUOUS, Starting on Thu06/23/24 at 1400, Until Thu06/24/24 at 0257, Routine Rate Change 06/23/2024 2:47 PM FURNITURE CLEANER 300 m L/hr New Bag 06/23/2024 1:57 PM FURNITURE CLEANER 30 mL/hr 30 mL/hr sodium chloride flush injection 10 mL 10 mL, IV, SEE ADMIN INSTRUCTIONS, Starting on Thu24 at 1355, Until 06/24/24 at 0257, Routine Given 06/23/2024 2:57 PM FURNITURE CLEANER 10 mL documented in this encounter Care Teams Harpsichord Maker Relationship Specialty Start Date End Date Shilo Soares MD [address] [place] [phone] PCP - General Internal Medicine 04/24/23 documented as of this encounter
--- OUTSIDE RECORDS SUMMARY | 2024-07-26 23:43 | XMS_ITS | Encounter Summary ---
Author Organization [facility] Address [address] [place] [address] Care Team Providers Care Servicer Name Role Phone Shilo Soares MD Primary Care Provider [phone] Encounter Details Date Type Department Care Team (Late Contact Info) Description 06/23/2024 External Device Data STL ABSTRACTION Provider, [...] (Late Contact Info) Description 08/04/2024 1:00 PM INDEPENDENT FILM MAKER Appointment [facility] [address] [place] [address] Aviva Humphries MD [address] [place] [address] Infusion Chair 5, 2nd Floor Hall 08/25/2024 1:00 PM INDEPENDENT FILM MAKER Office Visit [facility] Gynecologic Oncology Hall [address] [place] [address] Edilia Pettit, CHELY [address] [facility] [facility] [address] [place] [phone] 08/25/2024 1:30 PM INDEPENDENT FILM MAKER Appointment [facility] 2nd Fl [address] [place] [address] Aviva Humphries MD [address] [facility] [facility] [address] [place] [address] Infusion Chair 1, 2nd Floor [place] 09/01/2024 10:45 AM INDEPENDENT FILM MAKER Appointment [facility] Nuclear Medicine [address] [place] [phone] [id number] Edilia Pettit, CHELY [address] [facility] [address] [place] [address] documented as of this encounter Visit Diagnoses Not on filedocumented in this encounter Care Teams Servicer Relationship Specialty Start Date End Date Shilo Soares MD [address] [place] [phone] PCP - General Internal Medicine 04/24/23 documented as of this encounter
--- OUTSIDE RECORDS SUMMARY | 2024-07-26 23:43 | XMS_ITS | Encounter Summary ---
Author Organization [facility] Address [address] [place] [address] Care Team Providers Care Roller Leveler Operator Name Role Phone Shilo Soares MD Primary Care Provider [phone] Encounter Details Date Type Department Care Team (Late Contact Info) Description 06/07/2024 External Device Data STL ABSTRACTION Provider, [...] (Late Contact Info) Description 08/04/2024 1:00 PM SOLUTION ANALYST Appointment [facility] 2nd [place] [address] [place] [address] Aviva Humphries MD [address] [place] [address] Infusion Chair 5, 2nd Floor Hall 08/25/2024 1:00 PM SOLUTION ANALYST Office Visit [facility] Gynecologic Oncology Hall [address] [place] [address] Edilia Pettit, CHELY [address] [facility] [address] [place] [phone] 08/25/2024 1:30 PM SOLUTION ANALYST Appointment [facility] 2nd Fl [address] [place] [address] Aviva Humphries MD [address] [place] [address] Infusion Chair 1, 2nd Floor [place] 09/01/2024 10:45 AM SOLUTION ANALYST Appointment [facility] Nuclear Medicine [address] [place] [address] [id number] Edilia Pettit, CHELY [address] [facility] [address] [place] [address] documented as of this encounter Visit Diagnoses Not on filedocumented in this encounter 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
--- OUTSIDE RECORDS SUMMARY | 2024-07-26 23:43 | XMS_ITS | Encounter Summary ---
Author Organization [facility] Address [address] [place] [address] Care Team Providers Care Ct Mri Technologist Name Role Phone Shilo Soares MD Primary Care Provider [phone] Encounter Details Date Type Department Care Team (Late Contact Info) Description 06/11/2024 External Device Data STL ABSTRACTION Provider, [...] (Late Contact Info) Description 08/04/2024 1:00 PM FOREIGN EXCHANGE DEALER Appointment [facility] 2nd [place] [address] [place] [address] Aviva Humphries MD [address] [place] [address] Infusion Chair 5, 2nd Floor Hall 08/25/2024 1:00 PM FOREIGN EXCHANGE DEALER Office Visit [facility] Gynecologic Oncology Hall [address] [place] [address] Edilia Pettit, CHELY [address] [facility] [address] [place] [phone] 08/25/2024 1:30 PM FOREIGN EXCHANGE DEALER Appointment [facility] 2nd Fl [address] [place] [address] Aviva Humphries MD [address] [facility] [address] [place] [address] Infusion Chair 1, 2nd Floor [place] 09/01/2024 10:45 AM FOREIGN EXCHANGE DEALER Appointment [facility] Nuclear Medicine [address] [place] [address] [id number] Edilia Pettit, CHELY [address] [facility] [address] [place] [address] documented as of this encounter Visit Diagnoses Not on filedocumented in this encounter Care Teams Ct Mri Technologist Relationship Specialty Start Date End Date Shilo Soares MD [address] [place] [phone] PCP - General Internal Medicine 04/24/23 documented as of this encounter
--- OUTSIDE RECORDS SUMMARY | 2024-07-26 23:43 | XMS_ITS | Encounter Summary ---
Author Organization [facility] Address [address] [place] [address] Care Team Providers Care Lead Principal Technical Architect Name Role Phone Shilo Soares MD Primary Care Provider [phone] Encounter Details Date Type Department Care Team (Late Contact Info) Description 06/09/2024 External Device Data STL ABSTRACTION Provider, [...] (Late Contact Info) Description 08/04/2024 1:00 PM AIRWORTHINESS INSPECTOR Appointment [facility] 2nd [place] [address] [place] [address] Aviva Humphries MD [address] [place] [address] Infusion Chair 5, 2nd Floor Hall 08/25/2024 1:00 PM AIRWORTHINESS INSPECTOR Office Visit [facility] Gynecologic Oncology Hall [address] [place] [address] Edilia Pettit, CHELY [address] [facility] [address] [place] [phone] 08/25/2024 1:30 PM AIRWORTHINESS INSPECTOR Appointment [facility] 2nd Fl [address] [place] [address] Aviva Humphries MD [address] [facility] [facility] [facility] [address] [place] [address] Infusion Chair 1, 2nd Floor [place] 09/01/2024 10:45 AM AIRWORTHINESS INSPECTOR Appointment [facility] Nuclear Medicine [address] [place] [address] [id number] Edilia Pettit, CHELY [address] [facility] [address] [place] [address] documented as of this encounter Visit Diagnoses Not on filedocumented in this encounter Care Teams Lead Principal Technical Architect Relationship Specialty Start Date End Date Shilo Soares MD [address] [place] [phone] PCP - General Internal Medicine 04/24/23 documented as of this encounter
--- OUTSIDE RECORDS SUMMARY | 2024-07-26 23:43 | XMS_ITS | Encounter Summary ---
Author Organization [facility] Address [address] [place] [address] Care Team Providers Care Analytics Analyst Name Role Phone Shilo Soares MD Primary Care Provider [phone] Reason for Visit * Reason Onset Date Comments Abnormal Lab Results 06/07/2024 Regarding C BC 06/06/24 - PLTs 79,000 Encounter Details Date Type Department Care Team (Late st Contact Info) Description 06/07/2024 Telephone [facility] Gynecologic Oncology Hall [address] [facility] [address] [place] [address] Marcellus Cuadra PA-C [address] [facility] [address] [place] [address] Abnormal Lab Results (Regarding CBC 06/06/24 - PLTs 79,000) Social History Tobacco Use Types Packs/Day Years [...] Encounter Note - Aviva Humphries MD - 06/12/2024 5:43 PM GUEST SERVICE MANAGER Platelets have not yet recovered. Continue to hold olaparib. T SERVICE MANAGER * Addendum Note - Marcellus Cuadra PA-C - 06/07/2024 2:45 PM CDTAddended by: MARCELLUS CUADRA on: 06/07/2024 02:45 PM Modules accepted: Orders * Telephone Encounter - Marcellus Cuadra PA-C - 06/07/2024 1:05 PM CDT TC to November after discussing recent CBC with Dr. Humphries. Will actually hold Lynparza at this time since platelets dropped below 100,000. Will check CBC weekly to monitor her counts. Can restart Lynparza at lower dose once platelets recover >100,000. Discussed this with November and she is agreeable. She reports feeling a bit better after getting blood transfusion last week but isn't feeling asgood as she expected. She will repeat her labs next week. Laisha Cuadra PA-C Gynecologic Oncology [facility] documented in this encounter Plan of Treatment Upcoming Encounters Date Type Department Care Team (Late st Contact Info) Description 08/04/2024 1:00 PM GUEST SERVICE MANAGER Appointment [facility] Infusion Center 2nd Nc [address] [place] [address] Aviva Humphries MD [address] [place] [address] Infusion Chair 5, 2nd Floor [place] 08/25/2024 1:00 PM GUEST SERVICE MANAGER Office Visit [facility] Gynecologic Oncology Hall [address] [place] [address] Edilia Pettit, CHELY [address] [facility] [address] [place] [address] 08/25/2024 1:30 PM GUEST SERVICE MANAGER Appointment [facility] Infusion Center 2nd Fl [address] [place] [address] Aviva Humphries MD [address] [facility] [address] [place] [address] Infusion Chair 1, 2nd Floor [place] 09/01/2024 10:45 AM GUEST SERVICE MANAGER Appointment [facility] Nuclear Medicine [address] [place] [address] [phone] Edilia Pettit, CHELY [address] [address] documented as of this encounter Procedures Procedure Name Priority Date/Time Associated Diagnosis Comments CBC WITH DIFFERENTIAL Routine 06/10/2024 3:29 PM CDT Chemotherapy-induced thrombocytopenia documented in this encounter Results * (ABNORMAL) CBC WITH DIFFERENTIAL (06/30/2024 3:33 PM GUEST SERVICE MANAGER) WBC 4.8 3.8 - 10.8 Thousand/u L [facility] RBC 3.09(L) 3.80 - 5.10 Million/uL [facility] HEMOGLOBIN 12.3 11.7 - 15.5 g/dL [facility] HEMATOCRIT 35.4 35.0 - 45.0 % [facility] MCV 114.6(H) 80.0 - 100.0 fL [facility] MCH 39.8(H) 27.0 - 33.0 pg [facility] MCHC 34.7 32.0 - 36.0 g/dL [facility] Comment: For adults, a slight decrease in the calculated MCHC value (in the range of 30 to 32 g/dL) is most likely not clinically significant; however, it should be interpreted with caution in correlation with other red cell parameters and the patient's clinical condition. RDW 18.9(H) 11.0 - 15.0 % [facility] PLATELETS 182 140 - 400 Thousand/u L [facility] MPV 10.2 7.5 - 12.5 fL [facility] NEUTROPHIL ABSOLUTE 2,458 1,500 - 7,800 cells/uL [facility] LYMPHOCYTE ABSOLUTE 1,896 850 - 3,900 cells/uL [facility] MONOCYTE ABSOLUTE 389 200 - 950 cells/uL [facility] EOSINOPHIL ABSOLUTE 38 15 - 500 cells/uL [facility] BASOPHILS ABSOLUTE 19 0 - 200 cells/uL [facility] NEUTROPHIL 51.2 % [facility] LYMPHOCYTES 39.5 % [facility] MONOCYTE 8.1 % [facility] EOSINOPHILS 0.8 % [facility] BASOPHILS 0.4 % [facility] Comment: FASTING:NO FASTING: NO Test Performed at: [facility] [address] [place], [place] ??[phone] Radha Perez MD Blood 06/30/2024 3:33 PM GUEST SERVICE MANAGER 06/30/2024 3:33 PM GUEST SERVICE MANAGER Marcellus Cuadra PA-C HEMATOLOGY OR DERABLES [facility] [phone] [facility] [address] [place] [address] * (ABNORMAL) CBC WITH DIFFERENTIAL (06/17/2024 3:31 PM GUEST SERVICE MANAGER) WBC 4.4 3.8 - 10.8 Thousand/u L [facility] RBC 2.85(L) 3.80 - 5.10 Million/uL [facility] HEMOGLOBIN 11.3(L) 11.7 - 15.5 g/dL [facility] HEMATOCRIT 32.9(L) 35.0 - 45.0 % [facility] MCV 115.4(H) 80.0 - 100.0 fL [facility] MCH 39.6(H) 27.0 - 33.0 pg [facility] MCHC 34.3 32.0 - 36.0 g/dL [facility] Comment: For adults, a slight decrease in the calculated MCHC value (in the range of 30 to 32 g/dL) is most likely not clinically significant; however, it should be interpreted with caution in correlation with other red cell parameters and the patient's clinical condition. RDW 22.0(H) 11.0 - 15.0 % [facility] PLATELETS 155 140 - 400 Thousand/u L [facility] MPV 10.8 7.5 - 12.5 fL [facility] NEUTROPHIL ABSOLUTE 1,742 1,500 - 7,800 cells/uL [facility] LYMPHOCYTE ABSOLUTE 2,174 850 - 3,900 cells/uL [facility] MONOCYTE ABSOLUTE 414 200 - 950 cells/uL [facility] EOSINOPHIL ABSOLUTE 48 15 - 500 cells/uL [facility] BASOPHILS ABSOLUTE 22 0 - 200 cells/uL [facility] NEUTROPHIL 39.6 % [facility] LYMPHOCYTES 49.4 % [facility] MONOCYTE 9.4 % [facility] EOSINOPHILS 1.1 % [facility] BASOPHILS 0.5 % [facility] RBC MORPHOLOGY NORMAL [facility] Comment: Tear-drop cells 1 + Spherocytes 1 + Anisocytosis 2 + Macrocytosis 2 + Polychromasia 2 + Ovalocytes 1 + Crenated red blood cells 1 + FASTING:NO FASTING: NO Test Performed at: [facility] [address] [place] ??[phone] Radha Perez MD Blood 06/17/2024 3:31 PM GUEST SERVICE MANAGER 06/17/2024 3:31 PM GUEST SERVICE MANAGER Marcellus Cuadra PA-C HEMATOLOGY OR DERABLES [facility] [phone] [facility] [address] [place] [address] * (ABNORMAL) CBC WITH DIFFERENTIAL (06/10/2024 3:29 PM CDT) WBC 4.5 3.8 - 10.8 Thousand/uL [facility] RBC 2.63(L) 3.80 - 5.10 Million/uL [facility] HEMOGLOBIN 10.4(L) 11.7 - 15.5 g/dL [facility] HEMATOCRIT 30.1(L) 35.0 - 45.0 % [facility] MCV 114.4(H) 80.0 - 100.0 fL [facility] MCH 39.5(H) 27.0 - 33.0 pg [facility] MCHC 34.6 32.0 - 36.0 g/dL [facility] Comment: For adults, a slight decrease in the calculated MCHC value (in the range of 30 to 32 g/dL) is most likely not clinically significant; however, it should be interpreted with caution in correlation with other red cell parameters and the patient's clinical condition. RDW 22.6(H) 11.0 - 15.0 % [facility] PLATELETS 79(L) 140 - 400 Thousand/uL [facility] MPV 10.8 7.5 - 12.5 fL [facility] NEUTROPHIL ABSOLUTE 2,228 1,500 - 7,800 cells/uL [facility] LYMPHOCYTE ABSOLUTE 1,926 850 - 3,900 cells/uL [facility] MONOCYTE ABSOLUTE 288 200 - 950 cells/uL [facility] EOSINOPHIL ABSOLUTE 41 15 - 500 cells/uL [facility] BASOPHILS ABSOLUTE 18 0 - 200 cells/uL [facility] NEUTROPHIL 49.5 % [facility] LYMPHOCYTES 42.8 % [facility] MONOCYTE 6.4 % [facility] EOSINOPHILS 0.9 % [facility] BASOPHILS 0.4 % [facility] PLATELET EST. DECREASED (A) ADEQUATE [facility] RBC MORPHOLOGY NORMAL [facility] Comment: Tear-drop cells 1 + Anisocytosis 2 + Macrocytosis 2 + Polychromasia 1 + Ovalocytes 1 + Test Performed at: [facility] [address] [place], [place] ??[phone] Radha Perez MD Blood 06/10/2024 3:29 PM CDT 06/10/2024 3:29 PM CDT Marcellus Cuadra PA-C HEMATOLOGY OR DERABLES [facility] [phone] [facility] [address] [place] [address] documented in this encounter Visit Diagnoses Diagnosis Chemotherapy-induced thrombocytopenia- Primary Other secondary thrombocytopenia documented in this encounter Care Teams Analytics Analyst Relationship Specialty Start Date End Date Shilo Soares MD [address] [address] PCP - General Internal Medicine 04/24/23 documented as of this encounter
--- OUTSIDE RECORDS SUMMARY | 2024-07-26 23:43 | XMS_ITS | Encounter Summary ---
Author Organization [facility] Address [address] [place] [address] Care Team Providers Care Equal Opportunity Officer Name Role Phone Shilo Soares MD Primary Care Provider [phone] Encounter Details Date Type Department Care Team (Late Contact Info) Description 06/02/2024 External Device Data STL ABSTRACTION Provider, [...] (Late Contact Info) Description 08/04/2024 1:00 PM VOCATIONAL REHABILITATION CONSULTANT Appointment [facility] Infusion Center 2nd [place] [address] [place] [address] Aviva Humphries MD [address] [place] [address] Infusion Chair 5, 2nd Floor [place] 08/25/2024 1:00 PM VOCATIONAL REHABILITATION CONSULTANT Office Visit [facility] Gynecologic Oncology Hall [address] [place] [address] Edilia Pettit, CHELY [address] [facility] [address] [place] [address] 08/25/2024 1:30 PM VOCATIONAL REHABILITATION CONSULTANT Appointment [facility] Infusion Center 2nd Fl [address] [place] [address] Aviva Humphries MD [address] [facility] [address] [place] [address] Infusion Chair 1, 2nd Floor [place] 09/01/2024 10:45 AM VOCATIONAL REHABILITATION CONSULTANT Appointment [facility] Nuclear Medicine [address] [place] [phone] Edilia Pettit, CHELY [address] [facility] [address] [place] [address] documented as of this encounter Visit Diagnoses Not on filedocumented in this encounter Care Teams Equal Opportunity Officer Relationship Specialty Start Date End Date Shilo Soares MD [address] [place] [phone] PCP - General Internal Medicine 04/24/23 documented as of this encounter
--- OUTSIDE RECORDS SUMMARY | 2024-07-26 23:43 | XMS_ITS | Encounter Summary ---
Author Organization [facility] Address [address] [place] [address] Care Team Providers Care Funeral Sales Manager Name Role Phone Shilo Soares MD Primary Care Provider [phone] Encounter Details Date Type Department Care Team (Latest Contact Info) Description 06/23/2024 10:55 AM FENCE SETTER - 06/23/2024 11:59 PM [facility] Hospital Encounter Randy Hall [facility] [address] [place] [address] Aviva Humphries MD [address] [place] [address] Discharge Disposition: Home or Self [...] bedtime. 02/26/2021 fluticasone propionate (FLONASE) 50 mcg/spray [place], Suspension nasal inhaler Administer 2 Sprays in [...] 05/12/2024 06/24/2024 documented as of this encounter Miscellaneous Notes * Result Encounter Note - Aviva Humphries MD - 06/23/2024 10:55 AM FENCE SETTER Looking good. Did we restart at a reduced dose? E SETTER documented in this encounter Plan of Treatment Upcoming Encounters Date Type Department Care Team (Late st Contact Info) Description 08/04/2024 1:00 PM FENCE SETTER Appointment Randy Hall [facility] Infusion Center [facility] Fl [address] [place] [address] Aviva Humphries MD [address] [facility] [address] [place] [address] Infusion Chair 5, [address] [place] [address] 08/25/2024 1:00 PM FENCE SETTER Office Visit [facility] [place] [address] [address] Edilia Pettit, CHELY [address] [address] 08/25/2024 1:30 PM FENCE SETTER [facility]ment [facility] Infusion Center 2nd Fl [address] [place] [address] Aviva Humphries MD [address] [facility] [address] [place] [phone] Infusion Chair 1, [address] [place] [address] 09/01/2024 10:45 AM FENCE SETTER Appointment [facility] Nuclear Medicine [address] [place] [address] [id number] Edilia Pettit, CHELY [address] [phone] documented as of this encounter Procedures Procedure Name Priority Date/Time Associated Diagnosis Comments DIFFERENTIAL, MANUAL Stat 06/23/2024 11:46 AM FENCE SETTER Malignant neoplasm of ovary, unspecified laterality URINALYSIS WITH REFLEX CULTURE Stat 06/23/2024 11:46 AM FENCE SETTER Malignant neoplasm of ovary, unspecified laterality CBC WITH DIFFERENTIAL Stat 06/23/2024 11:46 AM FENCE SETTER Malignant neoplasm of ovary, unspecified laterality CANCER ANTIGEN 125 Routine 06/23/2024 11 :46 AM FENCE SETTER Malignant neoplasm of ovary, unspecified laterality COMPREHENSIVE METABOLIC PANEL Stat 06/23/2024 11:46 AM FENCE SETTER Malignant neoplasm of ovary, unspecified laterality documented in this encounter Results * MANUAL DIFFERENTIAL (06/23/2024 11:46 AM FENCE SETTER) PLATELET EST. Consistent w Count 06/23/2024 12:01 PM [facility] [email or web address] LABORATORY SERVICES - [facility] ANISOCYTOSIS 1+ /hpf 06/23/2024 12:01 PM [facility] . [facility] MACROCYTES 1+ /hpf 06/23/2024 12:01 PM FENCE SETTER [facility] OVALOCYTES 1+ /hpf 06/23/2024 12:01 PM FENCE SETTER [facility] Blood Collection / Unknown 06/23/2024 11:46 AM FENCE SETTER 06/23/2024 11:49 AM FENCE SETTER Edilia Pettit NP HEMATOLOGY ORDERABLE S COM [facility] [employer] SERVICES [facility] CLIA# [id number] [address] [facility] [place] [address] * (ABNORMAL) COMPREHENSIVE METABOLIC PANEL (06/23/2024 11:46 AM FENCE SETTER) SODIUM 139 136 - 145 mmol/L 06/23/2024 12:56 PM FENCE SETTER [email or web address] LABORATORY SERVICES - [facility] POTASSIUM 4.3 3.5 - 5.0 mmol/L 06/23/2024 12:56 PM FENCE SETTER [facility] LABORATORY SERVICES - [facility] CHLORIDE 105 98 - 107 mmol/L 06/23/2024 12:56 PM [facility] LABORATORY [facility] CO2 26 22 - 29 mmol/L 06/23/2024 12:56 PM [facility] LABORATORY [facility] CALCIUM 9.0 8.6 - 10.2 mg/dL 06/23/2024 12:56 PM [facility] LABORATORY [facility] . [facility] BUN 9 8 - 23 mg/dL 06/23/2024 12:56 PM [facility] LABORATORY [facility] CREATININE 0.81 0.51 - 0.95 mg/dL 06/23/2024 12:56 PM [facility] LABORATORY [facility] GLUCOSE 127(H) 74 - 99 mg/dL 06/23/2024 12:56 PM [facility] LABORATORY [facility] TOTAL PROTEIN 6.7 6.7 - 8.6 g/dL 06/23/2024 12:56 PM [facility] LABORATORY [facility] . [facility] ALBUMIN 4.2 3.5 - 5.2 g/dL 06/23/2024 12:56 PM [facility] LABORATORY [facility] BILIRUBIN TOTAL 0.4 0.2 - 1.1 mg/dL 06/23/2024 12:56 PM [facility] LABORATORY [facility] . [facility] ALKALINE PHOSPHATASE 85 35 - 104 U/L 06/23/2024 12:56 PM [facility] LABORATORY [facility] AST 36(H) <33 U/L 06/23/2024 12:56 PM [facility] LABORATORY [facility]. [facility] ALT 36(H) <34 U/L 06/23/2024 12:56 PM [facility] LABORATORY [facility] . [facility] GFR >60 >=60 mL/min/1.7 3 sq meter 06/23/2024 12:56 PM [facility] LABORATORY [facility] Comment:eGFR calculated with 2020 CKD-EPI equation. Vegetarian diet, extremely high or low muscle mass, and may affect results. Cystatin C with Glomerular Filtration Rate is a suitable alternative for these patients. ANION GAP 8 8 - 16 mmol/L 06/23/2024 12:56 PM [facility] LABORATORY [facility]. [facility] Blood Collection / Unknown 06/23/2024 11:46 AM FENCE SETTER 06/23/2024 12:14 PM [facility] LABORATORY SERVICES - [facility] - 06/23/2024 12:56 PM FENCE SETTER Samples containing indocyanine green cause interferences on Total and/or Direct Bilirubin and must not be measured. Edilia Pettit NP CHEMISTRY ORDERABLES [facility] [employer] SERVICES - [facility] CLIA# [id number] [address] [facility] [place] [address] * (ABNORMAL) CBC WITH DIFFERENTIAL (06/23/2024 11:46 AM FENCE SETTER) [facility] WBC 4.4 4.0 - 9.8 K/uL 06/23/2024 11:55 AM [facility] [employer] [facility] RBC 2.92(L) 3.90 - 4.90 M/uL 06/23/2024 11:55 AM [facility] [employer] [facility] HEMOGLOBIN 11.6(L) 11.8 - 14.8 g/dL 06/23/2024 11:55 AM [facility] [employer] [facility] HEMATOCRIT 34.3(L) 35.5 - 44.0 % 06/23/2024 11:55 AM [facility] [employer] [facility] MCV 117.5(H) 82.0 - 99.0 fL 06/23/2024 11:55 AM [facility] [employer] [facility] MCH 39.7(H) 27.2 - 32.6 pg 06/23/2024 11:55 AM [facility] [employer] [facility] MCHC 33.8 31.5 - 35.5 g/dL 06/23/2024 11:55 AM [facility] [employer] [facility] RDW 22.0(H) 11.5 - 14.5 % 06/23/2024 11:55 AM [facility] [employer] - [facility] RDW-STDEV 92.3(H) 37.1 - 48.7 fL 06/23/2024 11:55 AM [facility] [employer] [facility] PLATELETS 166 140 - 350 K/uL 06/23/2024 11:55 AM [facility] [employer] - [facility] MPV 9.8 9.3 - 12.4 fL 06/23/2024 11:55 AM [facility] [employer] [facility] NEUTROPHILS 51 % 06/23/2024 11:55 AM [facility] [employer] [facility] LYMPHOCYTES 39 % 06/23/2024 11:55 AM [facility] [employer] SERVICES - [facility] MONOCYTES 8 % 06/23/2024 11:55 AM [facility] [employer] SERVICES - [facility] EOSINOPHILS 1 % 06/23/2024 11:55 AM [facility] [employer] [facility] BASOPHILS 1 % 06/23/2024 11:55 AM [facility] [employer] [facility] IMMATURE GRANULOCYTES 1 % 06/23/2024 11:55 AM [facility] [employer] SERVICES - [facility] Comment:IG (Immature Granulo cyte) count includes Metamyelocytes, Myelocytes, and Promyelocytes NEUTROPHIL ABSOLUTE 2.24 1.90 - 7.00 K/uL 06/23/2024 11:55 AM [facility] [employer] [facility] . [facility] LYMPHOCYTE ABSOLUTE 1.73 0.70 - 4.50 K/uL 06/23/2024 11:55 AM [facility] [employer] [facility] MONOCYTE ABSOLUTE 0.34 0.10 - 1.30 K/uL 06/23/2024 11:55 AM [facility] [employer] [facility] EOSINOPHIL ABSOLUTE 0.05 0.00 - 0.70 K/uL 06/23/2024 11:55 AM [facility] [employer] [facility] BASOPHILS ABSOLUTE 0.03 0.00 - 0.20 K/uL 06/23/2024 11:55 AM [facility] [employer] [facility] . [facility] IMMATURE GRANULOCYTES ABSOLUTE 0.02 0.00 - 0.03 K/uL 06/23/2024 11:55 AM [facility] [employer] [facility] . [facility] Blood Collection / Unknown 06/23/2024 11:46 AM FENCE SETTER 06/23/2024 11:49 AM FENCE SETTER Edilia Pettit NP HEMATOLOGY ORDERABLE S [facility] [employer] SERVICES [facility] CLIA# [id number] [address] [facility] [place] [address] * (ABNORMAL) URINALYSIS WITH REFLEX CULTURE (06/23/2024 11:46 AM FENCE SETTER) COLOR UA Colorless(A ) Pale to Dark Yellow 06/23/2024 12:19 PM [facility] LABORATORY [facility] CLARITY UA Clear Clear 06/23/2024 12:19 PM [facility] LABORATORY [facility] SPECIFIC GRAVITY UA 1.004 1.003 - 1.035 06/23/2024 12:19 PM [facility] - . [facility] PH UA 7.0 5.0 - 8.0 06/23/2024 12:19 PM [facility] LABORATORY [facility] LEUKOCYTE ESTERASE UA Negative Negative 06/23/2024 12:19 PM [facility] [employer] [facility] NITRITE UA Negative Negative 06/23/2024 12:19 PM [facility] [employer] [facility] PROTEIN UA Negative Negative 06/23/2024 12:19 PM [facility] LABORATORY [facility] GLUCOSE UA Negative Negative 06/23/2024 12:19 PM [facility] [employer] [facility] KETONES UA Negative Negative 06/23/2024 12:19 PM [facility] [employer] [facility] UROBILINOGEN UA Normal <2.0 mg/dL 12:19 PM [facility] [employer] [facility] BILIRUBIN UA Negative Negative 06/23/2024 12:19 PM [facility] - [facility] BLOOD UA Negative Negative 06/23/2024 12:19 PM [facility] [employer] [facility]. [facility] Urine URINE SPECIMEN OBTAINED BY CLEAN CATCH PROCEDURE / Unknown Collection / Unknown 06/23/2024 11:46 AM FENCE SETTER 06/23/2024 12:07 PM [facility] Edilia Pettit NP URINE ORDERABLES [facility] LABORATORY SERVICES [facility]# [id number] [address] [place] [address] * CANCER ANTIGEN 125 (06/23/2024 11:46 AM FENCE SETTER) CA 125 6 <35 U/mL [facility] Comment: This test was performed using the Siemens Chemiluminescent method. Values obtained from different assay methods cannot be used interchangeably. CA 125 levels, regardless of value, should not be interpreted as absolute evidence of the presence or absence of disease. Test Performed at: [facility] [address] [place], [place] ??[id number] Radha Perez MD Blood 06/23/2024 11:4 6 AM FENCE SETTER 06/23/2024 12:14 PM FENCE SETTER Edilia Pettit NP CHEMISTRY ORDERABLES [facility] [phone] [facility] [address] [address] documented in this encounter Visit Diagnoses Diagnosis Malignant neoplasm of ovary, unspecified laterality documented in this encounter Administered Medications Inactive Administered Medications - up to 3 most recent administrations Medication Order MAR Action Action Date Dose Rate Site sodium chloride flush injection 20 mL 20 mL, IV, SEE ADMIN INSTRUCTIONS, Starting on Thu06/23/24 at 1146, Until Thu06/24/24 at 0257, Routine Given 06/23/2024 11:47 AM FENCE SETTER 20 mL documented in this encounter Care Teams Funeral Sales Manager Relationship Specialty Start Date End Date Shilo Soares MD [address] [place] [phone] PCP - General Internal Medicine 04/24/23 documented as of this encounter
--- OUTSIDE RECORDS SUMMARY | 2024-07-26 23:43 | XMS_ITS | Encounter Summary ---
Author Organization [facility] Address [address] [place] [address] Care Team Providers Care Chief Reservoir Engineering Name Role Phone Shilo Soares MD Primary Care Provider [phone] Encounter Details Date Type Department Care Team (Late Contact Info) Description 06/17/2024 External Device Data STL ABSTRACTION Provider, [...] (Late Contact Info) Description 08/04/2024 1:00 PM CHROME WORKER Appointment [facility] 2nd [place] [address] [place] [address] Aviva Humphries MD [address] [place] [address] Infusion Chair 5, 2nd Floor Hall 08/25/2024 1:00 PM CHROME WORKER Office Visit [facility] Gynecologic Oncology Hall [address] [place] [address] Edilia Pettit, CHELY [address] [place] [phone] 08/25/2024 1:30 PM CHROME WORKER Appointment [facility] 2nd Fl [address] [place] [address] Aviva Humphries MD [address] [place] [address] Infusion Chair 1, 2nd Floor [place] 09/01/2024 10:45 AM CHROME WORKER Appointment Randy [facility] Nuclear Medicine [address] [place] [address] [phone] Edilia Pettit, CHELY [address] [facility] [address] [place] [address] documented as of this encounter Visit Diagnoses Not on filedocumented in this encounter Care Teams Chief Reservoir Engineering Relationship Specialty Start Date End Date Shilo Soares MD [address] [place] [phone] PCP - General Internal Medicine 04/24/23 documented as of this encounter
--- OUTSIDE RECORDS SUMMARY | 2024-07-26 23:43 | XMS_ITS | Encounter Summary ---
Author Organization [facility] Address [address] [place] [address] Care Team Providers Care Adult Education Instructor Name Role Phone Shilo Soares MD Primary Care Provider [phone] Encounter Details Date Type Department Care Team (Late Contact Info) Description 06/21/2024 External Device Data STL ABSTRACTION Provider, [...] (Late Contact Info) Description 08/04/2024 1:00 PM ANIMAL NUTRITION CONSULTANT Appointment [facility] 2nd [place] [address] [place] [address] Aviva Humphries MD [address] [place] [address] Infusion Chair 5, 2nd Floor Hall 08/25/2024 1:00 PM ANIMAL NUTRITION CONSULTANT Office Visit [facility] Gynecologic Oncology Hall [address] [place] [address] Edilia Pettit, CHELY [address] [place] [phone] 08/25/2024 1:30 PM ANIMAL NUTRITION CONSULTANT Appointment [facility] 2nd Fl [address] [place] [address] Aviva Humphries MD [address] [place] [address] Infusion Chair 1, 2nd Floor [place] 09/01/2024 10:45 AM ANIMAL NUTRITION CONSULTANT Appointment Randy [facility] Nuclear Medicine [address] [place] [address] [id number] Edilia Pettit, CHELY [address] [facility] [address] [place] [address] documented as of this encounter Visit Diagnoses Not on filedocumented in this encounter Care Teams Adult Education Instructor Relationship Specialty Start Date End Date Shilo Soares MD [address] [place] [phone] PCP - General Internal Medicine 04/24/23 documented as of this encounter
--- OUTSIDE RECORDS SUMMARY | 2024-07-26 23:43 | XMS_ITS | Encounter Summary ---
Author Organization [facility] Address [address] [place] [address] Care Team Providers Care Child Protective Services Specialist Name Role Phone Shilo Soares MD Primary Care Provider [phone] Encounter Details Date Type Department Care Team (Late Contact Info) Description 06/12/2024 External Device Data STL ABSTRACTION Provider, [...] (Late Contact Info) Description 08/04/2024 1:00 PM MANAGER INTERNET RETAILS SALES Appointment [facility] 2nd [place] [address] [place] [address] Aviva Humphries MD [address] [place] [address] Infusion Chair 5, 2nd Floor Hall 08/25/2024 1:00 PM MANAGER INTERNET RETAILS SALES Office Visit [facility] Gynecologic Oncology Hall [address] [place] [address] Edilia Pettit, CHELY [address] [place] [phone] 08/25/2024 1:30 PM MANAGER INTERNET RETAILS SALES Appointment [facility] 2nd Fl [address] [place] [address] Aviva Humphries MD [address] [place] [address] Infusion Chair 1, 2nd Floor [place] 09/01/2024 10:45 AM MANAGER INTERNET RETAILS SALES Appointment [facility] Nuclear Medicine [address] [place] [address] [phone] Edilia Pettit, CHELY [address] [facility] [address] [place] [address] documented as of this encounter Visit Diagnoses Not on filedocumented in this encounter Care Teams Child Protective Services Specialist Relationship Specialty Start Date End Date Shilo Soares MD [address] [place] [address] PCP - General Internal Medicine 04/24/23 documented as of this encounter
--- OUTSIDE RECORDS SUMMARY | 2024-07-26 23:43 | XMS_ITS | Encounter Summary ---
Author Organization [facility] Address [address] [place] [address] Care Team Providers Care Supervisory It Specialist Name Role Phone Shilo Soares MD Primary Care Provider [phone] Encounter Details Date Type Department Care Team (Late Contact Info) Description 06/16/2024 External Device Data STL ABSTRACTION Provider, [...] (Late Contact Info) Description 08/04/2024 1:00 PM ERP TECHNICAL LEAD Appointment [facility] 2nd Pr [address] [place] [address] Aviva Humphries MD [address] [place] [address] Infusion Chair 5, 2nd Floor Hall 08/25/2024 1:00 PM ERP TECHNICAL LEAD Office Visit [facility] Gynecologic Oncology Hall [address] [place] [address] Edilia Pettit, CHELY [address] [facility] [address] [place] [phone] 08/25/2024 1:30 PM ERP TECHNICAL LEAD Appointment [facility] 2nd Fl [address] [place] [address] Aviva Humphries MD [address] [place] [address] Infusion Chair 1, 2nd Floor [place] 09/01/2024 10:45 AM ERP TECHNICAL LEAD Appointment [facility] Nuclear Medicine [address] [place] [address] [id number] Edilia Pettit, CHELY [address] [facility] [address] [place] [address] documented as of this encounter Visit Diagnoses Not on filedocumented in this encounter Care Teams Supervisory It Specialist Relationship Specialty Start Date End Date Shilo Soares MD [address] [place] [address] PCP - General Internal Medicine 04/24/23 documented as of this encounter
--- OUTSIDE RECORDS SUMMARY | 2024-07-26 23:43 | XMS_ITS | Encounter Summary ---
Author Organization [facility] Address [address] [place] [address] Care Team Providers Care Account Resolution Expert Name Role Phone Shilo Soares MD Primary Care Provider [phone] Encounter Details Date Type Department Care Team (Late Contact Info) Description 06/24/2024 External Device Data STL ABSTRACTION Provider, [...] (Late Contact Info) Description 08/04/2024 1:00 PM MAINTENANCE MECHANIC TELEPHONE Appointment [facility] 2nd Id [address] [place] [address] Aviva Humphries MD [address] [place] [address] Infusion Chair 5, 2nd Floor Hall 08/25/2024 1:00 PM MAINTENANCE MECHANIC TELEPHONE Office Visit [facility] Gynecologic Oncology Hall [address] [place] [address] Edilia Pettit, CHELY [address] [facility] [facility] [address] [place] [address] 08/25/2024 1:30 PM MAINTENANCE MECHANIC TELEPHONE Appointment [facility] 2nd Fl [address] [place] [address] Aviva Humphries MD [address] [place] [address] Infusion Chair 1, [address] 09/01/2024 10:45 AM MAINTENANCE MECHANIC TELEPHONE Appointment [facility] Nuclear Medicine [address] [place] [address] [id number] Edilia Pettit, CHELY [address] [facility] [address] [place] [address] documented as of this encounter Visit Diagnoses Not on filedocumented in this encounter Care Teams Account Resolution Expert Relationship Specialty Start Date End Date Shilo Soares MD [address] [place] [address] PCP - General Internal Medicine 04/24/23 documented as of this encounter
--- OUTSIDE RECORDS SUMMARY | 2024-07-26 23:43 | XMS_ITS | Encounter Summary ---
Author Organization [facility] Address [address] [place] [address] Care Team Providers Care Brick Loader Name Role Phone Shilo Soares MD Primary Care Provider [phone] Encounter Details Date Type Department Care Team (Late Contact Info) Description 06/15/2024 External Device Data STL ABSTRACTION Provider, [...] (Late Contact Info) Description 08/04/2024 1:00 PM AMUSEMENT OR RECREATION CARD CHECKER Appointment [facility] 2nd Nc [address] [place] [address] Aviva Humphries MD [address] [place] [address] Infusion Chair 5, 2nd Floor Hall 08/25/2024 1:00 PM AMUSEMENT OR RECREATION CARD CHECKER Office Visit [facility] Gynecologic Oncology Hall [address] [place] [address] Edilia Pettit, CHELY [address] [place] [phone] 08/25/2024 1:30 PM AMUSEMENT OR RECREATION CARD CHECKER Appointment [facility] 2nd Fl [address] [place] [address] Aviva Humphries MD [address] [facility] [address] [place] [address] Infusion Chair 1, 2nd Floor [employer] 09/01/2024 10:45 AM AMUSEMENT OR RECREATION CARD CHECKER Appointment Randy Hall [facility] Nuclear Medicine [address] [place] [address] [id number] Edilia Pettit, CHELY [address] [facility] [address] [place] [address] documented as of this encounter Visit Diagnoses Not on filedocumented in this encounter Care Teams Brick Loader Relationship Specialty Start Date End Date Shilo Soares MD [address] [place] [address] PCP - General Internal Medicine 04/24/23 documented as of this encounter
--- OUTSIDE RECORDS SUMMARY | 2024-07-26 23:43 | XMS_ITS | Encounter Summary ---
Author Organization [facility] Address [address] [place] [address] Care Team Providers Care Intelligence Group Supervisor Name Role Phone Shilo Soares MD Primary Care Provider [phone] Encounter Details Date Type Department Care Team (Latest Contact Info) Description 06/24/2024 Orders Only [facility] Gynecologic Oncology Hall [address] [facility] [address] [place] [address] Edilia Pettit NP [address] [facility] [address] [place] [address] Chemotherapy-induced thrombocytopenia (Primary Dx) Social History Tobacco Use Types [...] as of this encounter Progress Notes * Edilia Pettit, CHELY - 06/24/2024 9:14 AM CST Platelets have recovered. Will send second dose reduction of Lynparza 200mg BID. Pt notified via MMM. Will check weekly CBC x 1 month. L BEARING FACER documented in this encounter Plan of Treatment Upcoming Encounters Date Type Department Care Team (Late st Contact Info) Description 08/04/2024 1:00 PM JEWEL BEARING FACER Appointment [facility] Infusion Center [facility] [address] [place] [address] Aviva Humphries MD [address] [facility] [address] [place] [address] Infusion Chair 5, 2nd [facility] 08/25/2024 1:00 PM JEWEL BEARING FACER Office Visit [facility] Gynecologic Oncology [place] [address] [address] Edilia Pettit NP [address] [address] 08/25/2024 1:30 PM JEWEL BEARING FACER Appointment [facility] Center 2nd [place] [address] [place] [address] Aviva Humphries MD [address] [facility] [address] [place] [phone] Infusion Chair 1, [address] [place] [address] 09/01/2024 10:45 AM JEWEL BEARING FACER Appointment [facility] Nuclear Medicine [address] [place] [address] [id number] Edilia Pettit NP [address] [address] Scheduled Orders Name Type Priority Associated Diagnoses Orde r Schedule CBC WITH DIFFERENTIAL Lab Stat Chemotherapy-induced thrombocytopenia 1 TIME A WEEK for 4 Occurrences starting 06/24/2024 until 08/24/2024 documented as of this encounter Visit Diagnoses Diagnosis Chemotherapy-induced thrombocytopenia- Primary Other secondary thrombocytopenia documented in this encounter Care Teams Intelligence Group Supervisor Relationship Specialty Start Date End Date Shilo Soares MD [address] [place] [phone] PCP - General Internal Medicine 04/24/23 documented as of this encounter
--- OUTSIDE RECORDS SUMMARY | 2024-07-26 23:43 | XMS_ITS | Encounter Summary ---
Author Organization [facility] Address [address] [place] [address] Care Team Providers Care Brake Lining Driller Name Role Phone Shilo Soares MD Primary Care Provider [phone] Encounter Details Date Type Department Care Team [...] (Late Contact Info) Description 08/04/2024 1:00 PM EARTH BORING MACHINE OPERATOR Appointment [facility] 2nd [place] [address] [place] [address] Aviva Humphries MD [address] [place] [address] Infusion Chair 5, 2nd Floor Hall 08/25/2024 1:00 PM EARTH BORING MACHINE OPERATOR Office Visit [facility] Gynecologic Oncology Hall [address] [place] [address] Edilia Pettit, CHELY [address] [facility] [address] [place] [phone] 08/25/2024 1:30 PM EARTH BORING MACHINE OPERATOR Appointment [facility] 2nd Fl [address] [place] [address] Aviva Humphries MD [address] [facility] [address] [place] [address] Infusion Chair 1, 2nd Floor [place] 09/01/2024 10:45 AM EARTH BORING MACHINE OPERATOR Appointment Randy [facility] Nuclear Medicine [address] [place] [address] [id number] Edilia Pettit, CHELY [address] [facility] [address] [place] [address] documented as of this encounter Visit Diagnoses Not on filedocumented in this encounter Care Teams Brake Lining Driller Relationship Specialty Start Date End Date Shilo Soares MD [address] [place] [address] PCP - General Internal Medicine 04/24/23 documented as of this encounter
--- OUTSIDE RECORDS SUMMARY | 2024-07-26 23:43 | XMS_ITS | Encounter Summary ---
Author Organization [facility] Address [address] [place] [address] Care Team Providers Care Dental Front Office Assistant Name Role Phone Shilo Soares MD Primary Care Provider [phone] Reason for Visit * Reason Onset Date Comments Lab Results 06/07/2024 Encounter Details Date Type Department Care Team (Late st Contact Info) Description 06/07/2024 Telephone [facility] Gynecologic Oncology Hall [address] [place] [address] Aviva Humphries MD [address] [place] [address] Lab Results Social History Tobacco Use Types Packs/Day Years [...] encounter Miscellaneous Notes * Telephone Encounter - Dolores Scott RN - 06/07/2024 11:40 AM CDT Call placed to patient. Confirming that she went to get labs draw yesterday, relaying message that Lynparza dose is staying the same per PA. Patient confirmed she had labs done at [facility] after speaking to this RN. No additional questions at this time. documented in this encounter Plan of Treatment Upcoming Encounters Date Type Department Care Team (Late st Contact Info) Description 08/04/2024 1:00 PM CHIEF CONTROLLER TOWER Appointment [facility] Infusion Center 2nd Fl [address] [place] [address] Aviva Humphries MD [address] [facility] [address] [place] [address] Infusion Chair 5, 2nd Floor [employer] 08/25/2024 1:00 PM CHIEF CONTROLLER TOWER [facility] Gynecologic Oncology [employer] [address] [facility] [address] [place] [address] Edilia Pettit, CHELY [address] [facility] [address] [place] [address] 08/25/2024 1:30 PM CHIEF CONTROLLER TOWER Appointment [facility] Infusion Center 2nd Fl [address] [place] [address] Aviva Humphries MD [address] [facility] [address] [facility] [place] [phone] Infusion Chair 1, 2nd Floor [employer] 09/01/2024 10:45 AM CHIEF CONTROLLER TOWER Appointment [facility] Nuclear Medicine [address] [place] [address] [id number] Edilia Pettit, CHELY [address] [facility] [address] [place] [phone] documented as of this encounter Visit Diagnoses Not on filedocumented in this encounter Care Teams Dental Front Office Assistant Relationship Specialty Start Date End Date Shilo Soares MD [address] [place] [address] PCP - General Internal Medicine 04/24/23 documented as of this encounter
--- OUTSIDE RECORDS SUMMARY | 2024-07-26 23:43 | XMS_ITS | Encounter Summary ---
Author Organization [facility] Address [address] [place] [address] Care Team Providers Care Health Assessment And Treatment Teacher Name Role Phone Shilo Soares MD Primary Care Provider [phone] Encounter Details Date Type Department Care Team (Late st Contact Info) Description 06/13/2024 Orders Only [facility] Gynecologic Oncology Hall [address] [facility] [address] [place] [address] Terra Eldridge PANiaC [address] [facility] [address] [place] [address] Chemotherapy-induced thrombocytopenia Social History Tobacco [...] Encounter Note - Aviva Humphries MD - 06/18/2024 10:04 AM SCIENTIFIC DIRECTOR Platelets have recovered. Lets get another CBC in 1 week to ensure that they remain within range. Can then resume olaparib at reduced dose. NTIFIC DIRECTOR documented in this encounter Plan of Treatment Upcoming Encounters Date Type Department Care Team (Late st Contact Info) Description 08/04/2024 1:00 PM SCIENTIFIC DIRECTOR Appointment Randy [facility] Infusion Center [facility] [address] [place] [address] Aviva Humphries MD [address] [facility] [address] [place] [phone] Infusion Chair 5, 2nd Floor [place] 08/25/2024 1:00 PM SCIENTIFIC DIRECTOR Office Visit [facility] Gynecologic Oncology [place] [address] [phone] Edilia Pettit, CHELY [address] [address] 08/25/2024 1:30 PM SCIENTIFIC DIRECTOR Appointment [facility] Center 2nd [place] [address] [place] [address] Aviva Humphries MD [address] [facility] [address] [place] [phone] Infusion Chair 1, 2nd [facility] 09/01/2024 10:45 AM SCIENTIFIC DIRECTOR Appointment [facility] Nuclear Medicine [address] [place] [address] [id number] Edilia Pettit, CHELY [address] [address] documented as of this encounter Procedures Procedure Name Priority Date/Time Associated Diagnosis Comments CBC WITH DIFFERENTIAL Routine 06/17/2024 3:31 PM SCIENTIFIC DIRECTOR Chemotherapy-induced thrombocytopenia documented in this encounter Results * (ABNORMAL) CBC WITH DIFFERENTIAL (06/17/2024 3:31 PM SCIENTIFIC DIRECTOR) WBC 4.4 3.8 - 10.8 Thousand/u L [...] + FASTING:NO FASTING: NO Test Performed at: [facility] [address] [place], [place] ??[phone] Radha Perez MD Blood 06/17/2024 3:31 PM SCIENTIFIC DIRECTOR 06/17/2024 3:31 PM SCIENTIFIC DIRECTOR Terra Eldridge PA-C HEMATOLOGY OR DERABLES Performing Organization Address City/State/[facility] Co de Phone Number [facility] [phone] [facility] [address] [place] [address] documented in this encounter Visit Diagnoses Diagnosis Chemotherapy-induced thrombocytopenia Other secondary thrombocytopenia documented in this encounter Care Teams Health Assessment And Treatment Teacher Relationship Specialty Start Date End Date Shilo Soares MD [address] [place] [address] PCP - General Internal Medicine 04/24/23 documented as of this encounter
--- OUTSIDE RECORDS SUMMARY | 2024-07-26 23:43 | XMS_ITS | Encounter Summary ---
Author Organization [facility] Address [address] [place] [address] Care Team Providers Care Account Consultant Name Role Phone Shilo Soares MD Primary Care Provider [phone] Encounter Details Date Type Department Care Team (Late Contact Info) Description 06/13/2024 External Device Data STL ABSTRACTION Provider, [...] (Late Contact Info) Description 08/04/2024 1:00 PM SOAP CHIPPER Appointment [facility] 2nd [place] [address] [place] [address] Aviva Humphries MD [address] [place] [address] Infusion Chair 5, 2nd Floor Hall 08/25/2024 1:00 PM SOAP CHIPPER Office Visit [facility] Gynecologic Oncology Hall [address] [place] [address] Edilia Pettit, CHELY [address] [facility] [address] [place] [phone] 08/25/2024 1:30 PM SOAP CHIPPER Appointment [facility] 2nd Fl [address] [place] [address] Aviva Humphries MD [address] [facility] [address] [place] [address] Infusion Chair 1, 2nd Floor [place] 09/01/2024 10:45 AM SOAP CHIPPER Appointment Randy [facility] Nuclear Medicine [address] [place] [address] [id number] Edilia Pettit, CHELY [address] [facility] [address] [place] [address] documented as of this encounter Visit Diagnoses Not on filedocumented in this encounter Care Teams Account Consultant Relationship Specialty Start Date End Date Shilo Soares MD [address] [place] [address] PCP - General Internal Medicine 04/24/23 documented as of this encounter
--- OUTSIDE RECORDS SUMMARY | 2024-07-26 23:43 | XMS_ITS | Encounter Summary ---
Author Organization [facility] Address [address] [place] [address] Care Team Providers Care Medical Claims Representative Name Role Phone Shilo Soares MD Primary Care Provider [phone] Encounter Details Date Type Department Care Team (Late Contact Info) Description 06/06/2024 External Device Data STL ABSTRACTION Provider, [...] (Late Contact Info) Description 08/04/2024 1:00 PM TAPE LIBRARIAN Appointment [facility] 2nd [place] [address] [place] [address] Aviva Humphries MD [address] [place] [address] Infusion Chair 5, 2nd Floor Hall 08/25/2024 1:00 PM TAPE LIBRARIAN Office Visit [facility] Gynecologic Oncology Hall [address] [place] [address] Edilia Pettit, CHELY [address] [facility] [address] [place] [address] 08/25/2024 1:30 PM TAPE LIBRARIAN Appointment [facility] 2nd Fl [address] [place] [address] Aviva Humphries MD [address] [place] [address] Infusion Chair 1, 2nd Floor [place] 09/01/2024 10:45 AM TAPE LIBRARIAN Appointment Randy [facility] Nuclear Medicine [address] [place] [address] [id number] Edilia Pettit, CHELY [address] [facility] [address] [place] [address] documented as of this encounter Visit Diagnoses Not on filedocumented in this encounter Care Teams Medical Claims Representative Relationship Specialty Start Date End Date Shilo Soares MD [address] [place] [address] PCP - General Internal Medicine 04/24/23 documented as of this encounter
--- OUTSIDE RECORDS SUMMARY | 2024-07-26 23:43 | XMS_ITS | Encounter Summary ---
Author Organization [facility] Address [address] [place] [address] Care Team Providers Care Steam Conditioner Filling Name Role Phone Shilo Soares MD Primary Care Provider [phone] Encounter Details Date Type Department Care Team ([facility] Contact Info) Description 06/07/2024 Abstract [facility] Gynecologic Oncology Hall [address] [place] [address] Aviva Humphries MD [address] [place] [address] Social History Tobacco Use Types [...] Contact Info) Description 08/04/2024 1:00 PM MANAGER LSW Appointment Randy [facility] 2nd Fl [address] [place] [address] Aviva Humphries MD [address] [place] [address] Infusion Chair 5, 2nd Floor Hall 08/25/2024 1:00 PM MANAGER LSW Office Visit [facility] Gynecologic Oncology Hall [address] [facility] [address] [place] [address] Edilia Pettit NP [address] [facility] [address] [place] [address] 08/25/2024 1:30 PM MANAGER LSW Appointment [facility] [address] [place] [address] Aviva Humphries MD [address] [place] [address] Infusion Chair 1, 2nd Floor [place] 09/01/2024 10:45 AM MANAGER LSW Appointment [facility] Nuclear Medicine [address] [place] [address] [id number] Edilia Pettit, CHELY [address] [facility] [address] [place] [address] documented as of this encounter Visit Diagnoses Not on filedocumented in this encounter Care Teams Steam Conditioner Filling Relationship Specialty Start Date End Date Shilo Soares MD [address] [place] [address] PCP - General Internal Medicine 04/24/23 documented as of this encounter
--- OUTSIDE RECORDS SUMMARY | 2024-07-26 23:43 | XMS_ITS | Encounter Summary ---
Author Organization [facility] Address [address] [place] [address] Care Team Providers Care Proposal Analyst Name Role Phone Shilo Soares MD Primary Care Provider [phone] Encounter Details Date Type Department Care Team (Late Contact Info) Description 06/04/2024 External Device Data STL ABSTRACTION Provider, [...] (Late Contact Info) Description 08/04/2024 1:00 PM FLOOR MOLDER Appointment [facility] 2nd [place] [address] [place] [address] Aviva Humphries MD [address] [place] [address] Infusion Chair 5, 2nd Floor Hall 08/25/2024 1:00 PM FLOOR MOLDER Office Visit [facility] Gynecologic Oncology Hall [address] [place] [address] Edilia Pettit, CHELY [address] [facility] [address] [place] [address] 08/25/2024 1:30 PM FLOOR MOLDER Appointment [facility] 2nd Fl [address] [place] [address] Aviva Humphries MD [address] [facility] [address] [place] [address] Infusion Chair 1, 2nd Floor [place] 09/01/2024 10:45 AM FLOOR MOLDER Appointment Randy Hall [facility] Nuclear Medicine [address] [place] [address] [id number] Edilia Pettit, CHELY [address] [facility] [address] [place] [address] documented as of this encounter Visit Diagnoses Not on filedocumented in this encounter Care Teams Proposal Analyst Relationship Specialty Start Date End Date Shilo Soares MD [address] [place] [address] PCP - General Internal Medicine 04/24/23 documented as of this encounter
--- OUTSIDE RECORDS SUMMARY | 2024-07-26 23:43 | XMS_ITS | Encounter Summary ---
Author Organization [facility] Address [address] [place] [address] Care Team Providers Care Director Of Marketing Operations Name Role Phone Shilo Soares MD Primary Care Provider [phone] Encounter Details Date Type Department Care Team (Late Contact Info) Description 06/20/2024 Orders Only [facility] Gynecologic Oncology Hall [address] [facility] [address] [place] [address] Terra Eldridge PA-C [address] [facility] [address] [place] [address] Chemotherapy-induced thrombocytopenia Social History Tobacco [...] (Late Contact Info) Description 08/04/2024 1:00 PM POSTMASTER Appointment Randy [facility] Fl [address] [place] [address] Aviva Humphries MD [address] [facility] [address] [place] [address] Infusion Chair 5, 2nd Floor Hall 08/25/2024 1:00 PM POSTMASTER Office Visit [facility] Gynecologic Oncology Hall [address] [facility] [address] [place] [address] Edilia Pettit, CHELY [address] [facility] [address] [place] [address] 08/25/2024 1:30 PM POSTMASTER Appointment [facility] Infusion Center [facility] [address] [place] [address] Aviva Humphries MD [address] [facility] [address] [place] [address] Infusion Chair 1, 2nd Floor Hall 09/01/2024 10:45 AM POSTMASTER Appointment [facility] Nuclear Medicine [address] [place] [phone] [id number] Edilia Pettit, CHELY [address] [phone] documented as of this encounter Procedures Procedure Name Priority Date/Time Associated Diagnosis Comments CBC WITH DIFFERENTIAL Routine 06/30/2024 3:33 PM POSTMASTER Chemotherapy-induced thrombocytopenia documented in this encounter Results * (ABNORMAL) CBC WITH DIFFERENTIAL (06/30/2024 3:33 PM POSTMASTER) WBC 4.8 3.8 - 10.8 Thousand/u L [...] Comment: FASTING:NO FASTING: NO Test Performed at: [facility] [address] [place], [place] ??[phone] Radha Perez MD Blood 06/30/2024 3:33 PM POSTMASTER 06/30/2024 3:33 PM POSTMASTER Terra Eldridge PA-C HEMATOLOGY OR DERABLES [facility] [phone] [facility] [address] [place] [address] documented in this encounter Visit Diagnoses Diagnosis Chemotherapy-induced thrombocytopenia Other secondary thrombocytopenia documented in this encounter Care Teams Director Of Marketing Operations Relationship Specialty Start Date End Date Shilo Soares MD [address] [place] [address] PCP - General Internal Medicine 04/24/23 documented as of this encounter
--- OUTSIDE RECORDS SUMMARY | 2024-07-26 23:43 | XMS_ITS | Encounter Summary ---
Author Organization [facility] Address [address] [place] [address] Care Team Providers Care Utilization Management Rn Name Role Phone Shilo Soares MD Primary Care Provider [phone] Encounter Details Date Type Department Care Team (Late Contact Info) Description 06/10/2024 External Device Data STL ABSTRACTION Provider, [...] (Late Contact Info) Description 08/04/2024 1:00 PM SENIOR CREDIT OFFICER Appointment [facility] 2[facility] Ms [address] [place] [address] Aviva Humphries MD [address] [place] [address] Infusion Chair 5, 2nd Floor Hall 08/25/2024 1:00 PM SENIOR CREDIT OFFICER Office Visit [facility] Gynecologic Oncology Hall [address] [place] [address] Edilia Pettit, CHELY [address] [place] [phone] 08/25/2024 1:30 PM SENIOR CREDIT OFFICER Appointment [facility] 2nd Fl [address] [place] [address] Aviva Humphries MD [address] [place] [address] Infusion Chair 1, 2nd Floor [place] 09/01/2024 10:45 AM SENIOR CREDIT OFFICER Appointment [facility] Nuclear Medicine [address] [place] [address] [id number] Edilia Pettit, CHELY [address] [facility] [address] [place] [address] documented as of this encounter Visit Diagnoses Not on filedocumented in this encounter Care Teams Utilization Management Rn Relationship Specialty Start Date End Date Shilo Soares MD [address] [place] [address] PCP - General Internal Medicine 04/24/23 documented as of this encounter
--- OUTSIDE RECORDS SUMMARY | 2024-07-26 23:43 | XMS_ITS | Encounter Summary ---
Author Organization [facility] Address [address] [place] [address] Care Team Providers Care Fisher Gill Net Name Role Phone Shilo Soares MD Primary Care Provider [phone] Encounter Details Date Type Department Care Team (Late Contact Info) Description 06/05/2024 External Device Data STL ABSTRACTION Provider, [...] Contact Info) Description 08/04/2024 1:00 PM SIGN WRITER HAND Appointment [facility] 2nd Nd [address] [place] [address] Aviva Humphries MD [address] [place] [address] Infusion Chair 5, 2nd Floor Hall 08/25/2024 1:00 PM SIGN WRITER HAND Office Visit [facility] Gynecologic Oncology Hall [address] [place] [address] Edilia Pettit, CHELY [address] [address] [address] [place] [address] 08/25/2024 1:30 PM SIGN WRITER HAND Appointment [facility] 2nd Fl [address] [place] [address] Aviva Humphries MD [address] [place] [address] Infusion Chair 1, 2nd Floor [place] 09/01/2024 10:45 AM SIGN WRITER HAND Appointment [facility] Nuclear Medicine [address] [place] [address] [id number] Edilia Pettit, CHELY [address] [facility] [address] [place] [address] documented as of this encounter Visit Diagnoses Not on filedocumented in this encounter Care Teams Fisher Gill Net Relationship Specialty Start Date End Date Shilo Soares MD [address] [place] [address] PCP - General Internal Medicine 04/24/23 documented as of this encounter
--- OUTSIDE RECORDS SUMMARY | 2024-07-26 23:43 | XMS_ITS | Encounter Summary ---
Author Organization [facility] Address [address] [place] [address] Care Team Providers Care Raw Mill Operator Name Role Phone Shilo Soares MD Primary Care Provider [phone] Encounter Details Date Type Department Care Team (Late Contact Info) Description 06/23/2024 Orders Only [facility] Gynecologic Oncology Hall [address] [facility] [address] [place] [address] Edilia Pettit, CHELY [address] [employer] [facility] [address] [place] [address] Malignant neoplasm of ovary, unspecified laterality (Primary Dx) Social History Tobacco Use Types [...] (Late Contact Info) Description 08/04/2024 1:00 PM SILVERWARE CLEANER Appointment [facility] 2nd Fl [address] [place] [address] Aviva Humphries MD [address] [facility] [address] [place] [address] Infusion Chair 5, 2nd Floor [place] 08/25/2024 1:00 PM SILVERWARE CLEANER Office Visit [facility] Gynecologic Oncology Hall [address] [facility] [address] [place] [address] Edilia Pettit, CHELY [address] [facility] [address] [place] [address] 08/25/2024 1:30 PM SILVERWARE CLEANER Appointment [facility] Infusion Center [facility] [address] [place] [address] Aviva Humphries MD [address] [facility] [address] [place] [address] Infusion Chair 1, 2nd Floor Hall 09/01/2024 10:45 AM SILVERWARE CLEANER Appointment [facility] Nuclear Medicine [address] [place] [address] [id number] Edilia Pettit, CHELY [address] [facility] [address] [place] [phone] documented as of this encounter Results * (ABNORMAL) COMPREHENSIVE METABOLIC PANEL (07/11/2024 8:27 AM SILVERWARE CLEANER) [facility] SODIUM 138 136 - 145 mmol/L 07/11/2024 9:29 AM SILVERWARE CLEANER [employer] [facility] POTASSIUM 3.8 3.5 - 5.0 mmol/L 07/11/2024 9:29 AM SILVERWARE CLEANER [employer] - . [place] CHLORIDE 104 98 - 107 mmol/L 07/11/2024 9:29 AM SILVERWARE CLEANER [facility] CO2 25 22 - 29 mmol/L 07/11/2024 9:29 AM SILVERWARE CLEANER [facility] CALCIUM 9.2 8.6 - 10.2 mg/dL 07/11/2024 9:29 AM [facility] LABORATORY [facility] BUN 9 8 - 23 mg/dL 07/11/2024 9:29 AM [facility] CREATININE 0.88 0.51 - 0.95 mg/dL 07/11/2024 9:29 AM [facility] LABORATORY [facility] GLUCOSE 145(H) 74 - 99 mg/dL 07/11/2024 9:29 AM [facility] TOTAL PROTEIN 7.1 6.7 - 8.6 g/dL 07/11/2024 9:29 AM [facility] ALBUMIN 4.1 3.5 - 5.2 g/dL 07/11/2024 9:29 AM [facility] BILIRUBIN TOTAL 0.5 0.2 - 1.1 mg/dL 07/11/2024 9:29 AM [facility] ALKALINE PHOSPHATASE 82 35 - 104 U/L 07/11/2024 9:29 AM [facility] AST 27 <33 U/L 07/11/2024 9:29 AM [facility] Comment:Hemolysis present. R esult may be falsely elevated. ALT 23 <34 U/L 07/11/2024 9:29 AM [facility] [employer] [facility] GFR >60 >=60 mL/min/1.7 3 sq meter 07/11/2024 9:29 AM [facility] Comment:eGFR calculated with 2020 CKD-EPI equation. Vegetarian diet, extremely high or low muscle mass, and may affect results. Cystatin C with Glomerular Filtration Rate is a suitable alternative for these patients. ANION GAP 9 8 - 16 mmol/L 07/11/2024 9:29 AM [facility] [employer] [facility] Blood Collection / Unknown 07/11/2024 8:27 AM SILVERWARE CLEANER 07/11/2024 8:45 AM [facility] LABORATORY [facility] - 07/11/2024 9:29 AM [facility] Samples containing indocyanine green cause interferences on Total and/or Direct Bilirubin and must not be measured. Edilia Pettit NP CHEMISTRY ORDERABLES [facility] SERVICES - [facility]# [id number] [place] [place] [address] * (ABNORMAL) CBC WITH DIFFERENTIAL (07/11/2024 8:27 AM SILVERWARE CLEANER) WBC 4.6 4.0 - 9.8 K/uL 07/11/2024 8:43 AM SILVERWARE CLEANER [employer] [facility] RBC 2.93(L) 3.90 - 4.90 M/uL 07/11/2024 8:43 AM [facility] [employer] LABORATORY SERVICES - . [facility] HEMOGLOBIN 11.7(L) 11.8 - 14.8 g/dL 07/11/2024 8:43 AM [facility] [employer] [facility] - [facility] HEMATOCRIT 34.4(L) 35.5 - 44.0 % 07/11/2024 8:43 AM [facility] [employer] [facility] MCV 117.4(H) 82.0 - 99.0 fL 07/11/2024 8:43 AM SILVERWARE CLEANER [employer] [facility] MCH 39.9(H) 27.2 - 32.6 pg 07/11/2024 8:43 AM SILVERWARE CLEANER [employer] [facility] MCHC 34.0 31.5 - 35.5 g/dL 07/11/2024 8:43 AM SILVERWARE CLEANER [employer] SERVICES - [facility] RDW 19.0(H) 11.5 - 14.5 % 07/11/2024 8:43 AM SILVERWARE CLEANER [employer] [facility] RDW-STDEV 82.7(H) 37.1 - 48.7 fL 07/11/2024 8:43 AM SILVERWARE CLEANER [employer] LABORATORY SERVICES - . [facility] PLATELETS 127(L) 140 - 350 K/uL 07/11/2024 8:43 AM SILVERWARE CLEANER [employer] LABORATORY SERVICES - . [facility] MPV 10.7 9.3 - 12.4 fL 07/11/2024 8:43 AM [facility] [employer]ORATORY SERVICES - . [place] NEUTROPHILS 70 % 07/11/2024 8:43 AM [facility] - [facility] LYMPHOCYTES 24 % 07/11/2024 8:43 AM [facility] LABORATORY [facility] MONOCYTES 5 % 07/11/2024 8:43 AM [facility] LABORATORY SERVICES - [facility] EOSINOPHILS 1 % 07/11/2024 8:43 AM [facility] LABORATORY [facility] BASOPHILS 0 % 07/11/2024 8:43 AM [facility] LABORATORY [facility] IMMATURE GRANULOCYTES 0 % 07/11/2024 8:43 AM [facility] LABORATORY [facility] NEUTROPHIL ABSOLUTE 3.22 1.90 - 7.00 K/uL 07/11/2024 8:43 AM [facility] LABORATORY SERVICES - [facility] LYMPHOCYTE ABSOLUTE 1.11 0.70 - 4.50 K/uL 07/11/2024 8:43 AM [facility] LABORATORY [facility] MONOCYTE ABSOLUTE 0.24 0.10 - 1.30 K/uL 07/11/2024 8:43 AM [facility] LABORATORY [facility] EOSINOPHIL ABSOLUTE 0.03 0.00 - 0.70 K/uL 07/11/2024 8:43 AM [facility] [employer] [facility]ATORY SERVICES - [facility] BASOPHILS ABSOLUTE 0.01 0.00 - 0.20 K/uL 07/11/2024 8:43 AM [facility] LABORATORY [facility] IMMATURE GRANULOCYTES ABSOLUTE 0.01 0.00 - 0.03 K/uL 07/11/2024 8:43 AM [facility] [employer] [facility] Blood Collection / Unknown 07/11/2024 8:27 AM SILVERWARE CLEANER 07/11/2024 8:41 AM [facility] Edilia Pettit NP HEMATOLOGY ORDERABLE S [facility] [employer] [facility] CLIA# [id number] [address] [place] [address] * CANCER ANTIGEN 125 (07/11/2024 8:26 AM SILVERWARE CLEANER) CA 125 7 <35 U/mL [facility] Comment: This test was performed using the Siemens Chemiluminescent method. Values obtained from different assay methods cannot be used interchangeably. CA 125 levels, regardless of value, should not be interpreted as absolute evidence of the presence or absence of disease. Test Performed at: [facility] [address] [facility] [place] ??[address] Radha Perez MD Blood 07/11/2024 8:26 AM SILVERWARE CLEANER 07/11/2024 9:19 AM SILVERWARE CLEANER Edilia Pettit NP CHEMISTRY ORDERABLES [facility] [phone] [facility] [address] [place] [address] * (ABNORMAL) URINALYSIS WITH REFLEX CULTURE (07/11/2024 8:26 AM SILVERWARE CLEANER) COLOR UA YELLOW YELLOW [facility] CLARITY UA CLEAR CLEAR [facility] SPECIFIC GRAVITY UA 1.004 1.001 - 1.035 [facility] PH UA < OR = 5.0 5.0 - 8.0 [facility] GLUCOSE UA NEGATIVE NEGATIVE [facility] BILIRUBIN UA NEGATIVE NEGATIVE [facility] KETONES UA NEGATIVE NEGATIVE [facility] BLOOD UA NEGATIVE NEGATIVE [facility] PROTEIN UA NEGATIVE NEGATIVE [facility] NITRITE UA NEGATIVE NEGATIVE [facility] LEUKOCYTE ESTERASE UA 1+(A) NEGATIVE [facility] WBC UA 0-5 < OR = 5 /HPF [facility] RBC UA NONE SEEN < OR = 2 /HPF [facility] EPITHELIAL CELLS, URINE NONE SEEN < OR = 5 /HPF [facility] BACTERIA UA NONE SEEN NONE SEEN /HPF [facility] HYALINE CAST NONE SEEN NONE SEEN /LPF [facility] URINE NOTE [facility] Comment: This urine was analyzed for the presence of WBC, RBC, bacteria, casts, and other formed elements. Only those elements seen were reported. URINE CULTURE [facility] Comment: CULTURE INDICATED - RESULTS TO FOLLOW Test Performed at: [facility] [address] [address] ??[phone] Radha Perez Urine URINE SPECIMEN OBTAINED BY CLEAN CATCH PROCEDURE / Unknown 07/11/2024 8:26 AM SILVERWARE CLEANER 07/11/2024 9:16 AM SILVERWARE CLEANER Edilia Pettit GROUT MACHINE OPERATOR URINE ORDERABLES [facility] [phone] [place] [place] [address] [place] [address] documented in this encounter Visit Diagnoses Diagnosis Malignant neoplasm of ovary, unspecified laterality- Primary documented in this encounter Care Teams Raw Mill Operator Relationship Specialty Start Date End Date Shilo Soares MD [address] [place] [address] PCP - General Internal Medicine 04/24/23 documented as of this encounter
--- OUTSIDE RECORDS SUMMARY | 2024-07-26 23:43 | XMS_ITS | Encounter Summary ---
Author Organization [facility] Address [address] [place] [address] Care Team Providers Care Hearing Aid Dispenser Name Role Phone Shilo Soares MD Primary Care Provider [phone] Encounter Details Date Type Department Care Team (Late Contact Info) Description 06/18/2024 External Device Data STL ABSTRACTION Provider, [...] Contact Info) Description 08/04/2024 1:00 PM MANAGER VEHICLE Appointment [facility] 2nd [place] [address] [place] [address] Aviva Humphries MD [address] [place] [address] Infusion Chair 5, 2nd Floor Hall 08/25/2024 1:00 PM MANAGER VEHICLE Office Visit [facility] Gynecologic Oncology Hall [address] [place] [address] Edilia Pettit, CHELY [address] [facility] [address] [place] [phone] 08/25/2024 1:30 PM MANAGER VEHICLE Appointment [facility] 2nd Fl [address] [place] [address] Aviva Humphries MD [address] [place] [address] Infusion Chair 1, 2nd Floor [place] 09/01/2024 10:45 AM MANAGER VEHICLE Appointment Randy [facility] Nuclear Medicine [address] [place] [address] [id number] Edilia Pettit, CHELY [address] [facility] [address] [place] [address] documented as of this encounter Visit Diagnoses Not on filedocumented in this encounter Care Teams Hearing Aid Dispenser Relationship Specialty Start Date End Date Shilo Soares MD [address] [place] [address] PCP - General Internal Medicine 04/24/23 documented as of this encounter
--- OUTSIDE RECORDS SUMMARY | 2024-07-26 23:43 | XMS_ITS | Encounter Summary ---
Author Organization [facility] Address [address] [place] [address] Care Team Providers Care Data Entry Technician Name Role Phone Shilo Soares MD Primary Care Provider [phone] Encounter Details Date Type Department Care Team (Late Contact Info) Description 06/22/2024 External Device Data STL ABSTRACTION Provider, [...] (Late Contact Info) Description 08/04/2024 1:00 PM RETOUCHING OPERATOR Appointment [facility] 2nd [place] [address] [place] [address] Aviva Humphries MD [address] [place] [address] Infusion Chair 5, 2nd Floor Hall 08/25/2024 1:00 PM RETOUCHING OPERATOR Office Visit [facility] Gynecologic Oncology Hall [address] [place] [address] Edilia Pettit, CHELY [address] [facility] [address] [address] [place] [phone] 08/25/2024 1:30 PM RETOUCHING OPERATOR Appointment [facility] 2nd Fl [address] [place] [address] Aviva Humphries MD [address] [facility] [address] [place] [address] Infusion Chair 1, 2nd Floor [place] 09/01/2024 10:45 AM RETOUCHING OPERATOR Appointment Randy [facility] Nuclear Medicine [address] [place] [address] [id number] Edilia Pettit, CHELY [address] [facility] [address] [place] [address] documented as of this encounter Visit Diagnoses Not on filedocumented in this encounter Care Teams Data Entry Technician Relationship Specialty Start Date End Date Shilo Soares MD [address] [place] [address] PCP - General Internal Medicine 04/24/23 documented as of this encounter
--- OUTSIDE RECORDS SUMMARY | 2024-07-26 23:43 | XMS_ITS | Encounter Summary ---
Author Organization [facility] Address [address] [place] [address] Care Team Providers Care Shactor Helper Name Role Phone Shilo Soares MD Primary Care Provider [phone] Encounter Details Date Type Department Care Team (Late Contact Info) Description 06/20/2024 External Device Data STL ABSTRACTION Provider, [...] (Late Contact Info) Description 08/04/2024 1:00 PM LIEN SEARCHER Appointment [facility] 2nd [place] [address] [place] [address] Aviva Humphries MD [address] [place] [address] Infusion Chair 5, 2nd Floor Hall 08/25/2024 1:00 PM LIEN SEARCHER Office Visit [facility] Gynecologic Oncology Hall [address] [place] [address] Edilia Pettit, CHELY [address] [facility] [address] [place] [address] 08/25/2024 1:30 PM LIEN SEARCHER Appointment [facility] 2nd Fl [address] [place] [address] Aviva Humphries MD [address] [place] [address] Infusion Chair 1, 2nd Floor [place] 09/01/2024 10:45 AM LIEN SEARCHER Appointment Randy [facility] Nuclear Medicine [address] [place] [address] [id number] Edilia Pettit, CHELY [address] [facility] [address] [place] [address] documented as of this encounter Visit Diagnoses Not on filedocumented in this encounter Care Teams Shactor Helper Relationship Specialty Start Date End Date Shilo Soares MD [address] [place] [address] PCP - General Internal Medicine 04/24/23 documented as of this encounter
--- OUTSIDE RECORDS SUMMARY | 2024-07-26 23:43 | XMS_ITS | Encounter Summary ---
Author Organization [facility] Address [address] [place] [address] Care Team Providers Care Digital Marketing Associate Name Role Phone Shilo Soares MD Primary Care Provider [phone] Encounter Details Date Type Department Care Team (Late Contact Info) Description 06/14/2024 External Device Data STL ABSTRACTION Provider, [...] (Late Contact Info) Description 08/04/2024 1:00 PM MANUFACTURED BUILDINGS SUPERVISOR Appointment [facility] 2nd De [address] [place] [address] Aviva Humphries MD [address] [place] [address] Infusion Chair 5, 2nd Floor Hall 08/25/2024 1:00 PM MANUFACTURED BUILDINGS SUPERVISOR Office Visit [facility] Gynecologic Oncology Hall [address] [place] [address] Edilia Pettit, CHELY [address] [address] [place] [address] 08/25/2024 1:30 PM MANUFACTURED BUILDINGS SUPERVISOR Appointment [facility] 2nd Fl [address] [place] [address] Aviva Humphries MD [address] [facility] [address] [place] [address] Infusion Chair 1, 2nd Floor [place] 09/01/2024 10:45 AM MANUFACTURED BUILDINGS SUPERVISOR Appointment Randy Hall Cancer [facility] Nuclear Medicine [address] [place] [address] [id number] Edilia Pettit, CHELY [address] [facility] [address] [place] [address] documented as of this encounter Visit Diagnoses Not on filedocumented in this encounter Care Teams Digital Marketing Associate Relationship Specialty Start Date End Date Shilo Soares MD [address] [place] [address] PCP - General Internal Medicine 04/24/23 documented as of this encounter
--- OUTSIDE RECORDS SUMMARY | 2024-07-26 23:43 | XMS_ITS | Encounter Summary ---
Author Organization [facility] Address [address] [place] [address] Care Team Providers Care Mortgage Loan Processing Clerk Name Role Phone Shilo Soares MD Primary Care Provider [phone] Encounter Details Date Type Department Care Team (Late Contact Info) Description 06/19/2024 External Device Data STL ABSTRACTION Provider, [...] (Late Contact Info) Description 08/04/2024 1:00 PM GROUNDMAN Appointment [facility] 2nd [place] [address] [place] [address] Aviva Humphries MD [address] [place] [address] Infusion Chair 5, 2nd Floor Hall 08/25/2024 1:00 PM GROUNDMAN Office Visit [facility] Gynecologic Oncology Hall [address] [place] [address] Edilia Pettit, CHELY [address] [place] [address] 08/25/2024 1:30 PM GROUNDMAN Appointment [facility] 2nd Fl [address] [place] [address] Aviva Humphries MD [address] [place] [address] Infusion Chair 1, 2nd Floor [place] 09/01/2024 10:45 AM GROUNDMAN Appointment Randy [facility] Nuclear Medicine [address] [place] [address] [id number] Edilia Pettit, CHELY [address] [facility] [address] [place] [address] documented as of this encounter Visit Diagnoses Not on filedocumented in this encounter Care Teams Mortgage Loan Processing Clerk Relationship Specialty Start Date End Date Shilo Soares MD [address] [place] [address] PCP - General Internal Medicine 04/24/23 documented as of this encounter
--- OUTSIDE RECORDS SUMMARY | 2024-07-26 23:43 | XMS_ITS | Encounter Summary ---
Author Organization [facility] Address [address] [place] [address] Care Team Providers Care Technology Risk Intern Name Role Phone Shilo Soares MD Primary Care Provider [phone] Encounter Details Date Type Department Care Team (Late Contact Info) Description 06/03/2024 External Device Data STL ABSTRACTION Provider, [...] (Late Contact Info) Description 08/04/2024 1:00 PM INTERACTIVE MEDIA SPECIALIST Appointment [facility] [address] [place] [address] Aviva Humphries MD [address] [place] [address] Infusion Chair 5, 2nd Floor Hall 08/25/2024 1:00 PM INTERACTIVE MEDIA SPECIALIST Office Visit [facility] Gynecologic Oncology Hall [address] [place] [address] Edilia Pettit, CHELY [address] [place] [address] 08/25/2024 1:30 PM INTERACTIVE MEDIA SPECIALIST Appointment [facility] 2nd Fl [address] [place] [address] Aviva Humphries MD [address] [place] [address] Infusion Chair 1, 2nd Floor [place] 09/01/2024 10:45 AM INTERACTIVE MEDIA SPECIALIST Appointment Randy [facility] Nuclear Medicine [address] [place] [address] [id number] Edilia Pettit, CHELY [address] [facility] [address] [place] [address] documented as of this encounter Visit Diagnoses Not on filedocumented in this encounter Care Teams Technology Risk Intern Relationship Specialty Start Date End Date Shilo Soares MD [address] [place] [address] PCP - General Internal Medicine 04/24/23 documented as of this encounter
--- OUTSIDE RECORDS SUMMARY | 2024-07-26 23:43 | XMS_ITS | Encounter Summary ---
Author Organization [facility] Address [address] [place] [address] Care Team Providers Care Polishing Machine Tender Name Role Phone Shilo Soares MD Primary Care Provider [phone] Reason for Visit * Reason Onset Date Comments Follow Up 06/21/2024 Encounter Details Date Type Department Care Team (Late st Contact Info) Description 06/21/2024 Telephone [facility] Gynecologic Oncology Hall [address] [place] [address] Aviva Humphries MD [address] [place] [address] Follow Up Social History Tobacco Use Types Packs/Day Years [...] Telephone Encounter - Dolores Scott RN - 06/21/2024 10:36 AM CST Call placed to patient. Message relayed. Will have CBC drawn on 06/23/24 prior to infusion. No additional questions at this time. ----- Message from Dr. Aviva Humphries sent at 06/18/2024 10:04 AM CLEANING MANAGER ----- Platelets have recovered. Lets get another CBC in 1 week to ensure that they remain within range. Can then resume olaparib at reduced dose. NING MANAGER documented in this encounter Plan of Treatment Upcoming Encounters Date Type Department Care Team (Late st Contact Info) Description 08/04/2024 1:00 PM CLEANING MANAGER Appointment Randy [facility] Infusion Center [facility] [address] [place] [address] vAiva Humphries MD [address] [facility] [address] [place] [address] Infusion Chair 5, 2nd [facility] 08/25/2024 1:00 PM CLEANING MANAGER Office Visit [facility] Gynecologic Oncology [place] [address] [address] Edilia Pettit NP [address] [address] 08/25/2024 1:30 PM CLEANING MANAGER Appointment Randy Hall [facility] Infusion Center [facility] [address] [place] [address] Aviva Humphries MD [address] [place] [address] Infusion Chair 1, [address] [place] [address] 09/01/2024 10:45 AM CLEANING MANAGER Appointment Randy [facility] Nuclear Medicine [address] [place] [address] [id number] Edilia Pettit NP [address] [facility] [address] [place] [address] documented as of this encounter Visit Diagnoses Not on filedocumented in this encounter Care Teams Polishing Machine Tender Relationship Specialty Start Date End Date Shilo Soares MD [address] [place] [address] PCP - General Internal Medicine 04/24/23 documented as of this encounter
--- OUTSIDE RECORDS SUMMARY | 2024-07-26 23:43 | XMS_ITS | Encounter Summary ---
Author Organization [facility] Address [address] [place] [address] Care Team Providers Care Coffee Maker Name Role Phone Shilo Soares MD Primary Care Provider [phone] Encounter Details Date Type Department Care Team (Late Contact Info) Description 06/25/2024 External Device Data STL ABSTRACTION Provider, [...] (Late Contact Info) Description 08/04/2024 1:00 PM NEWSPAPER REPORTER Appointment [facility] [address] [place] [address] Aviva Humphries MD [address] [place] [address] Infusion Chair 5, 2nd Floor Hall 08/25/2024 1:00 PM NEWSPAPER REPORTER Office Visit [facility] Gynecologic Oncology Hall [address] [place] [address] Edilia Pettit, CHELY [address] [address] [place] [address] 08/25/2024 1:30 PM NEWSPAPER REPORTER Appointment [facility] 2nd Fl [address] [place] [address] Aviva Humphries MD [address] [place] [address] Infusion Chair 1, 2nd Floor [place] 09/01/2024 10:45 AM NEWSPAPER REPORTER Appointment Randy [facility] Nuclear Medicine [address] [place] [address] [id number] Edilia Pettit, CHELY [address] [facility] [address] [place] [address] documented as of this encounter Visit Diagnoses Not on filedocumented in this encounter Care Teams Coffee Maker Relationship Specialty Start Date End Date Shilo Soares MD [address] [place] [address] PCP - General Internal Medicine 04/24/23 documented as of this encounter
--- OUTSIDE RECORDS SUMMARY | 2024-07-26 23:43 | XMS_ITS | Encounter Summary ---
Author Organization [facility] Address [address] [place] [address] Care Team Providers Care Change Management Director Name Role Phone Shilo Soares MD Primary Care Provider [phone] Encounter Details Date Type Department Care Team (Late Contact Info) Description 06/08/2024 External Device Data STL ABSTRACTION Provider, [...] (Late Contact Info) Description 08/04/2024 1:00 PM CUSTOMER SERVICE REP Appointment [facility] Pr [address] [place] [address] Aviva Humphries MD [address] [place] [address] Infusion Chair 5, 2nd Floor Hall 08/25/2024 1:00 PM CUSTOMER SERVICE REP Office Visit [facility] Gynecologic Oncology Hall [address] [place] [address] Edilia Pettit, CHELY [address] [facility] [address] [facility] [address] [place] [address] 08/25/2024 1:30 PM CUSTOMER SERVICE REP Appointment [facility] 2nd Fl [address] [place] [address] Aviva Humphries MD [address] [address] [facility] [address] [place] [address] Infusion Chair 1, 2nd Floor [place] 09/01/2024 10:45 AM CUSTOMER SERVICE REP Appointment Randy [facility] Nuclear Medicine [address] [place] [address] [id number] Edilia Pettit, CHELY [address] [facility] [address] [place] [address] documented as of this encounter Visit Diagnoses Not on filedocumented in this encounter Care Teams Change Management Director Relationship Specialty Start Date End Date Shilo Soares MD [address] [place] [address] PCP - General Internal Medicine 04/24/23 documented as of this encounter
--- OUTSIDE RECORDS SUMMARY | 2024-07-26 23:44 | XMS_ITS | Encounter Summary ---
Author Organization [facility] Address [address] [place] [address] Care Team Providers Care Senior Underwriting Assistant Name Role Phone Shlio Soares MD Primary Care Provider [phone] Encounter Details Date Type Department Care Team (Late Contact Info) Description 05/27/2024 External Device Data STL ABSTRACTION Provider, [...] (Late Contact Info) Description 08/04/2024 1:00 PM RESERVATIONS MANAGER Appointment [facility] 2nd [place] [address] [place] [address] Aviva Humphries MD [address] [place] [address] Infusion Chair 5, 2nd Floor Hall 08/25/2024 1:00 PM RESERVATIONS MANAGER Office Visit [facility] Gynecologic Oncology Hall [address] [place] [address] Edilia Pettit, CHELY [address] [facility] [address] [place] [address] 08/25/2024 1:30 PM RESERVATIONS MANAGER Appointment [facility] 2nd Fl [address] [place] [address] Aviva Humphries MD [address] [facility] [address] [facility] [address] [place] [address] Infusion Chair 1, 2nd Floor [place] 09/01/2024 10:45 AM RESERVATIONS MANAGER Appointment [facility] Nuclear Medicine [address] [place] [address] [id number] Edilia Pettit, CHELY [address] [facility] [address] [place] [address] documented as of this encounter Visit Diagnoses Not on filedocumented in this encounter Care Teams Senior Underwriting Assistant Relationship Specialty Start Date End Date Shilo Soares MD [address] [place] [address] PCP - General Internal Medicine 04/24/23 documented as of this encounter
--- OUTSIDE RECORDS SUMMARY | 2024-07-26 23:44 | XMS_ITS | Encounter Summary ---
Author Organization [facility] Address 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) Social History Tobacco Use Types [...] st Contact Info) Description 08/04/2024 1:00 PM HIDE BUYER Appointment [facility] Infusion Center 2nd Fl [address] [place] [address] Aviva Humphries MD [address] [place] [address] Infusion Chair 5, 2nd Floor [place] 08/25/2024 1:00 PM HIDE BUYER Office Visit [facility] Gynecologic Oncology Hall [address] [place] [address] Edilia Pettit, CHELY [address] [facility] [address] [place] [address] 08/25/2024 1:30 PM HIDE BUYER Appointment Randy Proctor [facility] Infusion Center 2nd Fl [address] [place] [address] Aviva Humphries MD [address] [facility] [address] [place] [address] Infusion Chair 1, 2nd Floor [place] 09/01/2024 10:45 AM HIDE BUYER Appointment Randy [facility] Nuclear Medicine [address] [place] [address] [id number] Edilia Pettit, CHELY [address] [facility] [address] [place] [address] documented as of this encounter Procedures Procedure Name Priority Date/Time Associated Diagnosis Comments CBC WITH DIFFERENTIAL Routine 05/16/2024 3:32 PM CDT Anemia in neoplastic disease documented in this encounter Results * (ABNORMAL) CBC WITH DIFFERENTIAL (05/16/2024 3:32 PM CDT) WBC 4.0 3.8 - 10.8 Thousand/uL [facility] RBC 2.27(L) 3.80 - 5.10 Million/uL [facility] HEMOGLOBIN 9.1(L) 11.7 - 15.5 g/dL [facility] HEMATOCRIT 26.6(L) 35.0 - 45.0 % [facility] MCV 117.2(H) 80.0 - 100.0 fL [facility] MCH 40.1(H) 27.0 - 33.0 pg [facility] MCHC 34.2 32.0 - 36.0 g/dL [facility] Comment: For adults, a slight decrease in the calculated MCHC value (in the range of 30 to 32 g/dL) is most likely not clinically significant; however, it should be interpreted with caution in correlation with other red cell parameters and the patient's clinical condition. RDW 24.1(H) 11.0 - 15.0 % [facility] PLATELETS 104(L) 140 - 400 Thousand/uL [facility] MPV 12.1 7.5 - 12.5 fL [facility] NEUTROPHIL ABSOLUTE 1,960 1,500 - 7,800 cells/uL [facility] LYMPHOCYTES ABSOLUTE 1,720 850 - 3,900 cells/uL [facility] MONOCYTE ABSOLUTE 280 200 - 950 cells/uL [facility] EOSINOPHIL ABSOLUTE 40 15 - 500 cells/uL [facility] BASOPHILS ABSOLUTE 0 0 - 200 cells/uL [facility] NEUTROPHIL 49 % [facility] LYMPHOCYTES 43 % [facility] MONOCYTE 7 % [facility] EOSINOPHILS 1 % [facility] BASOPHILS 0 % [facility] PLATELET EST. DECREASED (A) ADEQUATE [facility] RBC MORPHOLOGY NORMAL [facility] Comment: Anisocytosis 2 + Macrocytosis 2 + Hypochromasia 1 + Ovalocytes 1 + Polychromasia 1 + Tear-drop cells 1 + COMMENT HEMATOLOGY [facility] Comment:LARGE AND/OR GIANT P LATELETS COMMENT HEMATOLOGY [facility] Comment: Although an automated CBC was ordered, our instrumentation detected an abnormality on your patient's specimen requiring us to perform a manual review. FASTING:NO FASTING: NO Test Performed at: [facility] [address] [place], [place] ??[address] Radha Perez MD Blood 05/16/2024 3:32 PM CDT 05/16/2024 3:32 PM CDT Aviva Humphries MD HEMATOLOGY ORDERABLE S [facility] [phone] [facility] [address] [place] [address] documented in this encounter Visit Diagnoses Diagnosis Anemia in neoplastic disease- Primary documented in this encounter Care Teams Sofa Back Upholsterer Relationship Specialty Start Date End Date Shilo Soares MD [address] [place] [address] PCP - General Internal Medicine 04/24/23 documented as of this encounter
--- OUTSIDE RECORDS SUMMARY | 2024-07-26 23:44 | XMS_ITS | Encounter Summary ---
Author Organization [facility] Address [address] [place] [address] Care Team Providers Care Vocational Nurse Lvn Name Role Phone Shilo Soares MD Primary Care Provider [phone] Encounter Details Date Type Department Care Team (Late Contact Info) Description 05/01/2024 External Device Data STL ABSTRACTION Provider, [...] who hurts you emotionally and/or physically? No 08/07/2023 Food Insecurity Answer Date Recorded Social/Environmental Concerns [...] (Late Contact Info) Description 08/04/2024 1:00 PM C S S REPRESENTATIVE Appointment [facility] 2nd [place] [address] [place] [address] Aviva Humphries MD [address] [place] [address] Infusion Chair 5, 2nd Floor Hall 08/25/2024 1:00 PM C S S REPRESENTATIVE Office Visit [facility] Gynecologic Oncology Hall [address] [place] [address] Edilia Pettit, CHELY [address] [place] [address] 08/25/2024 1:30 PM C S S REPRESENTATIVE Appointment [facility] 2nd Fl [address] [place] [address] Aviva Humphries MD [address] [facility] [address] [facility] [address] [place] [address] Infusion Chair 1, 2nd Floor [place] 09/01/2024 10:45 AM C S S REPRESENTATIVE Appointment Randy [facility] Nuclear Medicine [address] [place] [address] [id number] Edilia Pettit, CHELY [address] [facility] [address] [place] [address] documented as of this encounter Visit Diagnoses Not on filedocumented in this encounter Care Teams Vocational Nurse Lvn Relationship Specialty Start Date End Date Shilo Soares MD [address] [place] [address] PCP - General Internal Medicine 04/24/23 documented as of this encounter
--- OUTSIDE RECORDS SUMMARY | 2024-07-26 23:44 | XMS_ITS | Encounter Summary ---
Author Organization [facility] Address [address] [place] [address] Care Team Providers Care Needle Loom Tender Name Role Phone Shilo Soares MD Primary Care Provider [phone] Encounter Details Date Type Department Care Team (Late st Contact Info) Description 05/12/2024 Orders Only [facility] Gynecologic Oncology Hall [address] [place] [address] Stevie Chavarria RN Social History Tobacco Use Types Packs/Day Years [...] st Contact Info) Description 08/04/2024 1:00 PM SATELLITE INSTRUCTION FACILITATOR Appointment Randy [facility] Infusion Center 2nd Fl [address] [place] [address] Aviva Humphries MD [address] [place] [address] Infusion Chair 5, 2nd Floor Hall 08/25/2024 1:00 PM SATELLITE INSTRUCTION FACILITATOR Office Visit [facility] Gynecologic Oncology Hall [address] [place] [address] Edilia Pettit, CHELY [address] [facility] [address] [place] [address] 08/25/2024 1:30 PM SATELLITE INSTRUCTION FACILITATOR Appointment Randy Proctor [facility] Infusion Center 2nd [place] [address] [facility] [place] [address] Aviva Humphries MD [address] [facility] [address] [place] [address] Infusion Chair 1, 2nd Floor [place] 09/01/2024 10:45 AM SATELLITE INSTRUCTION FACILITATOR Appointment [facility] Nuclear Medicine [address] [place] [address] [id number] Edilia Pettit, CHELY [address] [facility] [address] [place] [address] documented as of this encounter Visit Diagnoses Not on filedocumented in this encounter Care Teams Needle Loom Tender Relationship Specialty Start Date End Date Shilo Soares MD [address] [place] [address] PCP - General Internal Medicine 04/24/23 documented as of this encounter
--- OUTSIDE RECORDS SUMMARY | 2024-07-26 23:44 | XMS_ITS | Encounter Summary ---
Author Organization [facility] Address [address] [place] [address] Care Team Providers Care Occupational Therapy Aide Name Role Phone Shilo Soares MD Primary Care Provider [phone] Encounter Details Date Type Department Care Team (Late Contact Info) Description 05/14/2024 External Device Data STL ABSTRACTION Provider, [...] (Late Contact Info) Description 08/04/2024 1:00 PM GLOVE PAIRER Appointment [facility] 2nd De [address] [place] [address] Aviva Humphries MD [address] [place] [address] Infusion Chair 5, 2nd Floor Hall 08/25/2024 1:00 PM GLOVE PAIRER Office Visit [facility] Gynecologic Oncology Hall [address] [place] [address] Edilia Pettit, CHELY [address] [facility] [address] [place] [address] 08/25/2024 1:30 PM GLOVE PAIRER Appointment [facility] 2nd Fl [address] [place] [address] Aviva Humphries MD [address] [facility] [address] [place] [address] Infusion Chair 1, 2nd Floor [place] 09/01/2024 10:45 AM GLOVE PAIRER Appointment Randy [facility] Nuclear Medicine [address] [place] [address] [id number] Edilia Pettit, CHELY [address] [facility] [address] [place] [address] documented as of this encounter Visit Diagnoses Not on filedocumented in this encounter Care Teams Occupational Therapy Aide Relationship Specialty Start Date End Date Shilo Soares MD [address] [place] [address] PCP - General Internal Medicine 04/24/23 documented as of this encounter
--- OUTSIDE RECORDS SUMMARY | 2024-07-26 23:44 | XMS_ITS | Encounter Summary ---
Author Organization [facility] Address [address] [place] [address] Care Team Providers Care Manager Security Name Role Phone Shilo Soares MD Primary Care Provider [phone] Encounter Details Date Type Department Care Team (Late Contact Info) Description 05/20/2024 External Device Data STL ABSTRACTION Provider, [...] (Late Contact Info) Description 08/04/2024 1:00 PM SUPERVISOR ENGRAVING Appointment [facility] 2nd In [address] [place] [address] Aviva Humphries MD [address] [place] [address] Infusion Chair 5, 2nd Floor Hall 08/25/2024 1:00 PM SUPERVISOR ENGRAVING Office Visit [facility] Gynecologic Oncology Hall [address] [place] [address] Edilia Pettit, CHELY [address] [address] [place] [address] 08/25/2024 1:30 PM SUPERVISOR ENGRAVING Appointment [facility] 2nd Fl [address] [place] [address] Aviva Humphries MD [address] [place] [address] Infusion Chair 1, 2nd Floor [place] 09/01/2024 10:45 AM SUPERVISOR ENGRAVING Appointment Randy [facility] Nuclear Medicine [address] [place] [address] [id number] Edilia Pettit, CHELY [address] [facility] [address] [place] [address] documented as of this encounter Visit Diagnoses Not on filedocumented in this encounter Care Teams Manager Security Relationship Specialty Start Date End Date Shilo Soares MD [address] [place] [address] PCP - General Internal Medicine 04/24/23 documented as of this encounter
--- OUTSIDE RECORDS SUMMARY | 2024-07-26 23:44 | XMS_ITS | Encounter Summary ---
Author Organization [facility] Address [address] [place] [address] Care Team Providers Care Gallery Assistant Name Role Phone Shilo Soares MD Primary Care Provider [phone] Encounter Details Date Type Department Care Team (Late Contact Info) Description 04/29/2024 External Device Data STL ABSTRACTION Provider, [...] (Late Contact Info) Description 08/04/2024 1:00 PM OUTSIDE MACHINIST SUPERVISOR Appointment [facility] [address] [place] [address] Aviva Humphries MD [address] [place] [address] Infusion Chair 5, 2nd Floor Hall 08/25/2024 1:00 PM OUTSIDE MACHINIST SUPERVISOR Office Visit [facility] Gynecologic Oncology Hall [address] [place] [address] Edilia Pettit, CHELY [address] [place] [phone] 08/25/2024 1:30 PM OUTSIDE MACHINIST SUPERVISOR Appointment [facility] 2nd Fl [address] [place] [address] Aviva Humphries MD [address] [place] [address] Infusion Chair 1, 2nd Floor [place] 09/01/2024 10:45 AM OUTSIDE MACHINIST SUPERVISOR Appointment [facility] Nuclear Medicine [address] [place] [address] [id number] Edilia Pettit, CHELY [address] [facility] [address] [place] [address] documented as of this encounter Visit Diagnoses Not on filedocumented in this encounter Care Teams Gallery Assistant Relationship Specialty Start Date End Date Shilo Soares MD [address] [place] [address] PCP - General Internal Medicine 04/24/23 documented as of this encounter
--- OUTSIDE RECORDS SUMMARY | 2024-07-26 23:44 | XMS_ITS | Encounter Summary ---
Author Organization [facility] Address [address] [place] [address] Care Team Providers Care Machine Sweeper Brush Maker Name Role Phone Shilo Soares MD Primary Care Provider [phone] Encounter Details Date Type Department Care Team (Late Contact Info) Description 05/23/2024 External Device Data STL ABSTRACTION Provider, [...] (Late Contact Info) Description 08/04/2024 1:00 PM BOOK STORE ASSOCIATE Appointment [facility] [address] [place] [address] Aviva Humphries MD [address] [place] [address] Infusion Chair 5, 2nd Floor Hall 08/25/2024 1:00 PM BOOK STORE ASSOCIATE Office Visit [facility] Gynecologic Oncology Hall [address] [place] [address] Edilia Pettit, CHELY [address] [place] [phone] 08/25/2024 1:30 PM BOOK STORE ASSOCIATE Appointment [facility] 2nd Fl [address] [place] [address] Aviva Humphries MD [address] [place] [address] Infusion Chair 1, 2nd Floor [place] 09/01/2024 10:45 AM BOOK STORE ASSOCIATE Appointment [facility] Nuclear Medicine [address] [place] [address] [id number] Edilia Pettit, CHELY [address] [facility] [address] [place] [address] documented as of this encounter Visit Diagnoses Not on filedocumented in this encounter Care Teams Machine Sweeper Brush Maker Relationship Specialty Start Date End Date Shilo Soares MD [address] [place] [address] PCP - General Internal Medicine 04/24/23 documented as of this encounter
--- OUTSIDE RECORDS SUMMARY | 2024-07-26 23:44 | XMS_ITS | Encounter Summary ---
Author Organization [facility] Address [address] [place] [address] Care Team Providers Care Supervisor Labor Gang Name Role Phone Shilo Soares MD Primary Care Provider [phone] Encounter Details Date Type Department Care Team (Late Contact Info) Description 05/05/2024 External Device Data STL ABSTRACTION Provider, [...] (Late Contact Info) Description 08/04/2024 1:00 PM CAKE BATTER MIXER Appointment [facility] [address] [address] [place] [address] Aviva Humphries MD [address] [place] [address] Infusion Chair 5, 2nd Floor Hall 08/25/2024 1:00 PM CAKE BATTER MIXER Office Visit [facility] Gynecologic Oncology Hall [address] [place] [address] Edilia Pettit, CHELY [address] [place] [phone] 08/25/2024 1:30 PM CAKE BATTER MIXER Appointment [facility] 2nd Fl [address] [place] [address] Aviva Humphries MD [address] [place] [address] Infusion Chair 1, 2nd Floor [place] 09/01/2024 10:45 AM CAKE BATTER MIXER Appointment [facility] Nuclear Medicine [address] [place] [address] [id number] Edilia Pettit, CHELY [address] [facility] [address] [place] [address] documented as of this encounter Visit Diagnoses Not on filedocumented in this encounter Care Teams Supervisor Labor Gang Relationship Specialty Start Date End Date Shilo Soares MD [address] [place] [address] PCP - General Internal Medicine 04/24/23 documented as of this encounter
--- OUTSIDE RECORDS SUMMARY | 2024-07-26 23:44 | XMS_ITS | Encounter Summary ---
Author Organization [facility] Address [address] [place] [address] Care Team Providers Care Waterworks Supervisor Name Role Phone Shilo Soares MD Primary Care Provider [phone] Encounter Details Date Type Department Care Team (Late Contact Info) Description 05/18/2024 External Device Data STL ABSTRACTION Provider, [...] (Late Contact Info) Description 08/04/2024 1:00 PM WAREHOUSE SORTER Appointment [facility] [address] [place] [address] Aviva Humphries MD [address] [place] [address] Infusion Chair 5, 2nd Floor Hall 08/25/2024 1:00 PM WAREHOUSE SORTER Office Visit [facility] Gynecologic Oncology Hall [address] [place] [address] Edilia Pettit, CHELY [address] [place] [address] 08/25/2024 1:30 PM WAREHOUSE SORTER Appointment [facility] 2nd Fl [address] [place] [address] Aviva Humphries MD [address] [place] [address] Infusion Chair 1, 2nd Floor [place] 09/01/2024 10:45 AM WAREHOUSE SORTER Appointment [facility] Nuclear Medicine [address] [place] [address] [id number] Edilia Pettit, CHELY [address] [facility] [address] [place] [address] documented as of this encounter Visit Diagnoses Not on filedocumented in this encounter Care Teams Waterworks Supervisor Relationship Specialty Start Date End Date Shilo Soares MD [address] [place] [address] PCP - General Internal Medicine 04/24/23 documented as of this encounter
--- OUTSIDE RECORDS SUMMARY | 2024-07-26 23:44 | XMS_ITS | Encounter Summary ---
Author Organization [facility] Address [address] [place] [address] Care Team Providers Care Banjo Repair Person Name Role Phone Shilo Soares MD Primary Care Provider [phone] Reason for Referral * CT Scan (Routine) - Closed Specialty Diagnoses / Procedures Referred By Alison gomez Referred To Contact Diagnoses Encounter for follow-up surveillance of ovarian cancer Procedures CT CHEST ABDOMEN PELVIS W CONT CT CHEST ABDOMEN PELVIS W WO CONT Aviva Humphries MD [address] [place] [address] [address] Scan [address] [place] [address] Referral ID Status Reason Start Date Expiration Date Visits Re quested Visits Authorized [id number] Closed 05/15/2024 08/09/2024 1 1 Reason for Visit * CT Scan (Routine) - Closed Specialty Diagnoses / Procedures Referred By Alison gomez Referred To Contact Diagnoses Encounter for follow-up surveillance of ovarian cancer Procedures CT CHEST ABDOMEN PELVIS W CONT CT CHEST ABDOMEN PELVIS W WO CONT Aviva Humphries MD [address] [place] [address] Scan [place] [address] [address] [place] [address] Referral ID Status Reason Start Date Expiration Date Visits Re quested Visits Authorized [id number] Closed 05/15/2024 08/09/2024 1 1 Encounter Details Date Type Department Care Team (Latest Contact Info) Description 05/18/2024 2:04 PM CDT - 05/18/2024 11:59 PM CDT Hospital Encounter [facility] Scan [address] [place] [address] Aviva Humphries MD [address] [place] [address] Discharge Disposition: Home or Self [...] bedtime. 02/26/2021 fluticasone propionate (FLONASE) 50 mcg/spray [place], Suspension nasal inhaler Administer 2 Sprays in [...] 05/12/2024 06/24/2024 documented as of this encounter Procedure Notes * Zuleika Phipps, RT - 05/18/2024 2:30 PM CDT Images from the original note were not included. STL IMS Medication and Flush Protocol- CT and MRI Procedures [facility] Approved by: [facility]-Medical Executive Committee Approval Date: 01/28/2024 ORDERS ARE ENTERED ???PER PROTOCOL?? Enter the protocol in the patient's electronic health record using smartphrase: .imagingctmriprotocol Communication Orders: For ordered imaging procedures requiring intravenous access: Initiate a peripheral IV, if not already in place, and discontinue IV prior to discharge (if outpatient). Enter order if needed: Insert Peripheral IV Bariatric Oral Contrast: Post-surgical bariatric patients will have markedly reduced ability to drink normal quantities of liquid. Four ounces will be the maximum amount or less if the patient cannot comfortably tolerate. Cancel oral contrast if patient is nauseated or vomiting. Water based contrast only. Medication Orders: Local Anesthetic for use to initiate IV ADULT Lidocaine 4% (L.M.X.4) applied topically ONE TIME prior to IV catheter insertion PRN (L.M.X.4 % should be applied 15 minutes prior to procedure) PEDIATRIC Lidocaine 4% (L.M.X.4) applied topically ONE TIME prior to IV catheter insertion PRN (apply 30 minutes prior to procedure) Sucrose 24% (Squirts) given PO prior to IV catheter insertion (administer 1 - 2 minutes prior to procedure) OR Sucrose 24% (Tootsweet; Sweet-Ease) oral solution 0.2 mL oral (apply to tongue on pacifier or clean, gloved finger), ONE TIME 2 minutes prior to painful procedure. May repeat dose x1 PRN to complete procedure. Sodium chloride 0.9% (normal saline) flush 10 mL PRN for saline lock or medication administration. For respiratory distress, initiate oxygen and/or increase O2 to maintain saturation greater than 90% For all invasive procedures: obtain Lidocaine 1% for intra-procedure administration. If Lidocaine 1% unavailable, may substitute Lidocaine 2%. PROCEDURE SPECIFIC CT MEDICATIONS Any exceptions to these contrast protocols must be approved by a Radiologist and documented in the EHR Progress Notes. When multiple medications are listed with the comment ???OR?? them, select the first option until challenges from product availability make this option unavailable. Cystogram (CT Pelvis): Iopamidol (Isovue 300) 61%, 50 mL, diluted with 250mL of sterile NS. Inject Isovue into 250 mL bag of NS. Clamp nieto catheter prior to instilling solution via catheter. Instill up to 300 mL of Isovue and NS solution into bladder via catheter, one time. CT ORAL CONTRAST PROTOCOLS FOR ADULTS Use Iohexol (Omnipaque) 240 mg/mL for CT scan unless patient has a documented allergy to contrast dye. If allergy present, use Barium Sulfate (EZ Paque) for procedure. Iopamidol (Isovue 300) 300mg/ml: 30ml added to 960mL of clear liquid of patient's choice. Preferredroute is oral. May use nasoenteric tube if needed. Utilize the following administration instructions when there is a need to conserve contrast 15 mL of Iopamidol (Isovue 300) split into two cups (7.5 mL in each cup) Dilute as usual with 960 mL of clear liquid of patient's choice (480 mL in each cup) Have patient drink one cup an hour before the test, wait 30 minutes then start to drink the next cup, leaving a little over an inch in the bottom of the second cup. As the technologist is getting thepatient from the waiting room after an hour, have the patient finish the rest of the second cup so it can coat and fill the stomach OR Iohexol (Omnipaque) 240 mg/mL: 50ml added to 960mL of clear liquid of patient's choice. Preferred route is oral. May use nasoenteric tube if needed. Administer 900mL of the diluted Omnipaque 240, orally, one time only. Barium Sulfate (EZ Paque /Vanilla Silq) 96% oral suspension: Preferred route is oral. May use nasoenteric tube if needed. Administer 900mL of barium sulfate, orally, one time only. Bariatric Patient: Post-Surgery to 1 year- 50 mL total volume. NO carbonated liquids lopamidol (Isovue 300) 300 mg/mL: mixed with water. Draw 50 mL of mixed solution for patient. Preferred route is orally. May use nasoenteric tube if needed. OR lohexol (Omnipaque) 240 mg/mL: mixed with water. Draw 50mL of mixed solution for patient. Preferredroute is orally. May use nasoenteric tube if needed. (SUBJECT TO AVAILABILITY) After 1 year- no more than 236 mL (8oz) total volume. NO carbonated liquids. lopamidol (Isovue 300) 300 mg/mL: mixed with water OR lohexol (Omnipaque) 240 mg/mL: mixed with water (SUBJECT TO AVAILABILITY) CT ORAL CONTRAST PROTOCOLS FOR PEDIATRICS Pediatrics = up to age 18 Pediatric Radiologist will approve of one of the following products selected for procedure. Barium Sulfate (EZ Paque) 96% oral suspension: preferred route is oral. May use nasoenteric tube ifneeded. to 3 months Administer up to 90mL of Barium sulfate, orally, one time only 4 months to 1 year old Administer up to 240mL of Barium sulfate, Orally, One Time Only 1 year old to 5 years old Administer up to 360mL of Barium sulfate, Orally, One Time Only 5 years old to 10 years old Administer up to 480mL of Barium sulfate, Orally, One Time Only Over 10 years old Administer up to 600mL of Barium sulfate, Orally, One Time Only Iopamidol (Isovue 300) 300 mg/mL oral solution Dilute 25mL of Iohexol with 480mL of clear liquid of patient's choice. Administer the diluted solution per age as follows: Preferred route is orally. May use nasoenteric tube if needed. Send any remaining diluted Iohexol solution with the patient's nurse to CT Iopamidol (Isovue) 300 mg/ml oral solution age appropriate guidelines [place] Administer 45mL of diluted Iopamidol oral solution, orally every 30 minutes x 2 doses. 1 month to 1 year old Administer 120mL of diluted Iopamidol oral solution, orally every 30 min x 2 doses. 1 year old to 5 years old Administer 180mL of diluted Iopamidol oral solution, orally every 30 min x 2 doses. 5 years old to 10 years old Administer 240mL of diluted Iopamidol oral solution, orally every 30 min x 2 doses. Over 10 years old Administer 245mL of diluted Iopamidol oral solution, orally every 30 min x 2 doses. OR Iohexol (Omnipaque) 240 mg/mL oral solution Dilute 25mL of Iohexol with 480mL of clear liquid of patient's choice. Administer the diluted solution per age as follows: Preferred route is orally. May use nasoenteric tube if needed. Send any remaining diluted Iohexol solution with the patient's nurse to CT Iohexol (Omnipaque) 240mg/ml oral solution age appropriate guidelines Administer 45mL of diluted Iohexol oral solution, orally every 30 minutes x 2 doses. 1 month to 1 year old Administer 120mL of diluted Iohexol oral solution, orally every 30 min x 2 doses. 1 year old to 5 years old Administer 180mL of Iohexol orally every 30 min x 2 doses. 5 years old to 10 years old Administer 240mL of Iohexol orally every 30 min x 2 doses. Over 10 years old Administer 250mL of Iohexol orally every 30 min x [address] RECTAL CONTRAST PROTOCOLS ADULTS: Iopamidol (Isovue) 300 mg/mL: Dilute 30mL of Isovue with 900mL of warm water in an enema bag. Administer the diluted solution rectally via gravity per patient's tolerance, up to 950mLs, one time only. OR Iohexol (Omnipaque) 240 mg/mL: Dilute 50mL of Omnipaque with 900mL of warm water in an enema bag. Administer the diluted solution rectally via gravity per patient's tolerance, up to 950mLs, one time only. CT IV CONTRAST PROTOCOLS for ADULT ADULTS: (If patient is less than 55kg and confirm dose with radiologist) Iopadmidol (Isovue-300): Administer 2.2mL/kg of Iopamidol 61%, intravenously, one time only. See table below for maximum dose, unless otherwise authorized by radiologist. If exam has been completed before the entire dose has been administered, stop the injection. Multiple doses of iodine contrast within a 24-hour period are a risk factor for ACACIA and should be avoided if possible. Emergent or other unusual circumstances where multiple doses of contrast are required in a short interval time should prompt consideration by the referring professional and radiologist to discuss the risks and benefits of contrast media administration. If exam not included in table below, contact radiologist for orders. Procedure Maximum Dose CT Head with Contrast Up to [address] Chest with Contrast Up to [address] Maxillofacial with Contrast Up to [address] Soft Tissue Neck with Contrast CT Chest Abdomen Pelvis with Contrast CT Chest Abdomen with Contrast CT Abdomen Pelvis with Contrast CT Pelvis with Contrast CT Angiogram Examinations (all) CT Soft Tissue Neck and Chest Abdomen Pelvis with Contrast Up to [address] Soft Tissue Neck and Chest with Contrast CT Urogram with Contrast CT IV CONTRAST PROTOCOLS for PEDIATRICS PEDIATRICS: Use weight-based dosing if patient is less than 55kg and confirm dose with radiologist. to 15 years old Administer 2.2mL/kg (to MAX of 80 mL) of Iopamidol (Isovue-300) 61%, intravenously, one time only 15 years old and older Administer 2.2mL/kg (to MAX of 150mL) of Iopamidol (Isovue-300) 61%, intravenously, one time only PROCEDURE SPECIFIC MRI MEDICATIONS: MRI [facility]GRAPHY: [facility] Nurse will enter the following medication orders for MRI Enterography if not otherwise ordered. ADULTS: (patient 18 years or older) If the patient is diabetic, call the radiologist to verify administration of Glucagon For Outpatients: Patient will receive 2 doses of Glucagon one dose 0.5mg IM administered by nurse prior to the MRI exam beginning 2nd dose 0.5mg IV prior to the IV contrast being administered. For Inpatients: Patient will receive 1 dose of Glucagon 1 mg IV, administered by nurse prior to thestarting the MRI exam. PEDIATRICS: If the patient is diabetic call the radiologist to verify administration of Glucagon Outpatient pediatric patient: Pediatric patient weighing 24.9 kg or less should have one dose of Glucagon 0.5mg IM administered by nurse prior to MRI exam beginning. Pediatric patient weighing 25 kg or greater should have one dose of Glucagon 1 mg IM administered by nurse prior to the MRI exam beginning. Inpatient pediatric patient: Pediatric patient weighing 24.9 kg or less should have one dose of Glucagon 0.5 mg IV administered by nurse prior to MRI exam beginning. Pediatric patient weighing 25 kg or greater should have one dose of Glucagon 1 mg IV administered by nurse prior to the MRI exam beginning. MRI UROGRAM: [facility] ADMINISTRATION Nurse will enter the following medication orders for MRI Enterography if not otherwise ordered. ADULTS: Call radiologist with any questions regarding administration of Lasix Lasix 0.1mg per kg with a minimum dose of Lasix 5mg IV being given up to a max dose of Lasix 10mg IV being given. The Lasix should be administered by nurse prior to the IV contrast being administered. (Hold Lasix if: obstruction, anuria and hypersensitivity to furosemide, and electrolyte imbalance or hypotension should be corrected by nurse before administering) MRI IV CONTRAST PROTOCOLS ADULTS: Multihance and Prohance can be used for most MRI scans Prohance should be used primarily. Multihance is useful in specific circumstances as directed by the radiologist or per the appropriate sections established protocols. Group I gadolinium contrast agents shall not be administered. Generally, multiple doses of gadolinium contrast should not be administered within a 24-hour period. In emergent or other unusual circumstances where this is necessary, only Group II agents should beadministered. For Liver Studies: Contact radiologist to determine use of one of the following: Gadobenate Dimeglumine (Multihance) (0.1mmol/0.2mL), Administer 0.1mmol/kg = 0.2mL/kg up to MAX of 20 mL, intravenously, one time only Gadoteridol (Prohance) (0.1mmol/0.2mL), Administer 0.1mmol/kg = 0.2mL/kg up to MAX of 20mL, intravenously, one time only Gadoxetate (Eovist) (2.5 mmol/10mL), Administer 0.025mmol/kg = 0.1mL/kg up to MAX of 10mL, intravenously, one time only PEDIATRICS: Radiologist to determine need for contrast Term neonates up to 2 years: Gadobuterol (Gadavist) (1mmol/mL injection), Administer 0.1mmol/kg = 0.1mL/kg up to MAX of 14mmol=14mL, intravenously, one time only OR Gadobenate Dimeglumine (Multihance) (0.1mmol/mL), Administer 0.1mmol/kg = 0.1mL/kg up to MAX of 14mmol = 14mL, intravenously, one time only 2 years and older Gadobenate Dimeglumine (Multihance) (0.1mmol/0.2mL), Administer 0.1mmol/kg = 0.2mL/kg up to MAX of 20mL, intravenously, one time only OR Gadoteridol (Prohance) (0.1mmol/0.2mL), Administer 0.1mmol/kg = 0.2mL/kg up to MAX of 20mL, intravenously, one time only TABLE 1. ACR Manual Classification of Gadolinium-Based Agents Relative to Nephrogenic Systemic Fibrosis Group I: Agents associated with the greatest number of NSF cases: Gadodiamide (Omniscan?? - Thename.is) Gadopentetate dimeglumine (Magnevist?? - [employer]) Gadoversetamide (OptiMARK?? - Guerbet) Group II: Agents associated with few, if any, unconfounded cases of NSF: Gadobenate dimeglumine (MultiHance?? - GigaMedia) Gadobutrol (Gadavist?? - [employer]; Gadovist in many countries) Gadoteric acid (Dotarem?? - Guerbet, Clariscan - Thename.is) Gadoteridol (ProHance?? - [employer]) Group III: Agents for which data remains limited regarding NSF risk, but for which few, if any unconfounded cases of NSF have been reported: Gadoxetate disodium (Eovist - Livescribe; Primovist in many countries) documented in this encounter Miscellaneous Notes * Result Encounter Note - Aviva Humphries MD - 05/18/2024 2:30 PM CDT Please let Narda know that I have reviewed her CT scan. There are no new findings in the abdomen and pelvis which is good. Unfortunately there are some new lesions in the lungs that could represent return of her cancer. We need to confirm. Can we see if either nodule is amenable to biopsy either with IR or with pulm? If not we could get a PETCT documented in this encounter Plan of Treatment Upcoming Encounters Date Type Department Care Team (Late st Contact Info) Description 08/04/2024 1:00 PM SHOTGUN SHELL ASSEMBLY MACHINE ADJUSTER Appointment [facility] Infusion Center 2nd Fl [address] [place] [address] Aviva Humphries MD [address] [place] [address] Infusion Chair 5, 2nd Floor Hall 08/25/2024 1:00 PM SHOTGUN SHELL ASSEMBLY MACHINE ADJUSTER Office Visit [facility] Gynecologic Oncology Hall [address] [place] [address] Edilia Pettit NP [address] [place] [address] 08/25/2024 1:30 PM SHOTGUN SHELL ASSEMBLY MACHINE ADJUSTER Appointment [facility] Infusion Center 2nd Fl [address] [place] [address] Aviva Humphries MD [address] [place] [address] Infusion Chair 1, 2nd Floor [place] 09/01/2024 10:45 AM SHOTGUN SHELL ASSEMBLY MACHINE ADJUSTER Appointment [facility] [address] [place] [address] [id number] Edilia Pettit, CHELY [address] [place] [address] documented as of this encounter Procedures Procedure Name Priority Date/Time Associated Diagnosis Comments CT CHEST ABDOMEN PELVIS W CONT Routine 05/18/2024 2:54 PM CDT Encounter for follow-up surveillance of ovarian cancer documented in this encounter Results * CT CHEST ABDOMEN PELVIS W CONT [...] LOCATION: [address] ORDERABLES documented in this encounter Visit Diagnoses Diagnosis Encounter for follow-up surveillance of ovarian cancer Unspecified follow-up examination documented in this encounter Administered Medications Inactive Administered Medications - up to 3 most recent administrations Medication Order MAR Action Action Date Dose Rate Site iopamidoL (ISOVUE-300) 61% injection (drawn from multi-use bulk pack) 60 mL 60 mL, IV, INTRA-PROCEDURE ONCE, 1 dose, Starting on Thu05/18/24 at 1453, Until Thu05/18/24 at 1425, Routine Contrast Given 05/18/2024 2:25 PM CDT 60 mL Arm , Left sodium chloride flush injection 10 mL 10 mL, IV, SEE ADMIN INSTRUCTIONS, Starting on Thu05/18/24 at 1453, Until Peace 05/19/24 at 0309, Routine Given 05/18/2024 2:16 PM CDT 10 mL Arm, Left documented in this encounter Care Teams Banjo Repair Person Relationship Specialty Start Date End Date Shilo Soares MD [address] [place] [id number] PCP - General Internal Medicine 04/24/23 documented as of this encounter
--- OUTSIDE RECORDS SUMMARY | 2024-07-26 23:44 | XMS_ITS | Encounter Summary ---
Author Organization [facility] Address [address] [place] [address] Care Team Providers Care Food Processing Scientist Name Role Phone Shilo Soares MD Primary Care Provider [phone] Encounter Details Date Type Department Care Team (Late Contact Info) Description 05/22/2024 External Device Data STL ABSTRACTION Provider, [...] (Late Contact Info) Description 08/04/2024 1:00 PM ANGLE SHEAR OPERATOR Appointment [facility]fusion Center 2nd [place] [address] [place] [address] Aviva Humphries MD [address] [place] [address] Infusion Chair 5, 2nd Floor Hall 08/25/2024 1:00 PM ANGLE SHEAR OPERATOR Office Visit [facility] Gynecologic Oncology Hall [address] [place] [address] Edilia Pettit, CHELY [address] [place] [address] 08/25/2024 1:30 PM ANGLE SHEAR OPERATOR Appointment [facility]fusion Center 2nd Fl [address] [place] [address] Aviva Humphries MD [address] [place] [address] Infusion Chair 1, 2nd Floor [place] 09/01/2024 10:45 AM ANGLE SHEAR OPERATOR Appointment [facility] Nuclear Medicine [address] [place] [address] [id number] Edilia Pettit, CHELY [address] [facility] [address] [place] [address] documented as of this encounter Visit Diagnoses Not on filedocumented in this encounter Care Teams Food Processing Scientist Relationship Specialty Start Date End Date Shilo Soares MD [address] [place] [phone] PCP - General Internal Medicine 04/24/23 documented as of this encounter
--- OUTSIDE RECORDS SUMMARY | 2024-07-26 23:44 | XMS_ITS | Encounter Summary ---
Author Organization [facility] Address [address] [place] [address] Care Team Providers Care Seam Hammerer Name Role Phone Shilo Soares MD Primary Care Provider [phone] Encounter Details Date Type Department Care Team (Late Contact Info) Description 05/21/2024 External Device Data STL ABSTRACTION Provider, [...] (Late Contact Info) Description 08/04/2024 1:00 PM FOOD SERVICE WORKER [facility]OSP[facility] Appointment [facility]fusion Center 2nd Dc [address] [place] [address] Aviva Humphries MD [address] [place] [address] Infusion Chair 5, 2nd Floor Hall 08/25/2024 1:00 PM FOOD SERVICE [facility]ER [facility] Office Visit [facility] Gynecologic Oncology Hall [address] [place] [address] Edilia Pettit, CHELY [address] [facility] [address] [facility] [address] [place] [address] 08/25/2024 1:30 PM FOOD SERVICE [facility] Appointment [facility]fusion Center 2nd Fl [address] [place] [address] Aviva Humphries MD [address] [place] [address] Infusion Chair 1, 2nd Floor [place] 09/01/2024 10:45 AM FOOD SERVICE [facility] Appointment [facility] Nuclear Medicine [address] [place] [address] [id number] Edilia Pettit, CHELY [address] [facility] [address] [place] [address] documented as of this encounter Visit Diagnoses Not on filedocumented in this encounter Care Teams Seam Hammerer Relationship Specialty Start Date End Date Shilo Soares MD [address] [place] [address] PCP - General Internal Medicine 04/24/23 documented as of this encounter
--- OUTSIDE RECORDS SUMMARY | 2024-07-26 23:44 | XMS_ITS | Encounter Summary ---
Author Organization [facility] Address [address] [place] [address] Care Team Providers Care Plastic Surgeon Name Role Phone Shilo Soares MD Primary Care Provider [phone] Reason for Referral * Radiology Services (Routine) - Closed Specialty Diagnoses / Procedures Referred By Alison t Referred To Contact Diagnoses Malignant neoplasm of ovary, unspecified laterality Pulmonary nodule Procedures IR BIOPSY Aviva Humphries MD [address] [address] [place] [address] Referral ID Status Reason Start Date Expiration Date Visits Requested Visits Authorized [id number] Closed STL Interventional 4 06/19/2025 1 1 Reason for Visit * Reason Onset Date Comments CT scan results 05/19/2024 Encounter Details Date Type Department Care Team (Late st Contact Info) Description 05/19/2024 Telephone [facility] Gynecologic Oncology [place] [address] [place] [address] Aviva Humphries MD [address] [place] [address] CT scan results Social History Tobacco Use Types Packs/Day Years [...] encounter Miscellaneous Notes * Telephone Encounter - Luci Yu RN - 05/19/2024 4:35 PM CDT Results reviewed with pt. IR biopsy ordered. Pt will return call to office on Thursday if she doesnot hear from IR. She is aware that if IR unable to complete, referral will be placed to pulmonology to obtain bx. * Telephone Encounter - Luci Yu RN - 05/19/2024 4:35 PM CDT ----- Message from Dr. Aviva Humphries sent at 05/19/2024 2:17 PM CDT ----- Please let Narda know that I have reviewed her CT scan. There are no new findings in the abdomen and pelvis which is good. Unfortunately there are some new lesions in the lungs that could represent return of her cancer. We need to confirm. documented in this encounter Plan of Treatment Upcoming Encounters Date Type Department Care Team (Late st Contact Info) Description 08/04/2024 1:00 PM EMU FARMER Appointment [facility] 2nd Fl [address] [place] [address] Aviva Humphries MD [address] [place] [address] Infusion Chair 5, 2nd Floor [place] 08/25/2024 1:00 PM EMU FARMER Office Visit [facility] Gynecologic Oncology Hall [address] [place] [address] Edilia Pettit, CHELY [address] [facility] [address] [place] [address] 08/25/2024 1:30 PM EMU FARMER Appointment [facility] Infusion Center 2nd Ne [address] [facility] [place] [address] Aviva Humphries MD [address] [facility] [address] [place] [address] Infusion Chair 1, 2nd Floor [place] 09/01/2024 10:45 AM EMU FARMER Appointment Randy [facility] Nuclear Medicine [address] [place] [address] [id number] Edilia Pettit, CHELY [address] [facility] [address] [place] [address] Scheduled Orders Name Type Priority Associated Diagnoses Orde r Schedule IR BIOPSY Imaging Routine Malignant neoplasm of ovary, unspecified laterality Pulmonary nodule Expected: 05/19/2024, Expires: 05/19/2025 documented as of this encounter Visit Diagnoses Diagnosis 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
--- OUTSIDE RECORDS SUMMARY | 2024-07-26 23:44 | XMS_ITS | Encounter Summary ---
Author Organization [facility] Address [address] [place] [address] Care Team Providers Care Relief Charge Nurse Name Role Phone Shilo Soares MD Primary Care Provider [phone] Encounter Details Date Type Department Care Team (Late Contact Info) Description 05/24/2024 External Device Data STL ABSTRACTION Provider, [...] (Late Contact Info) Description 08/04/2024 1:00 PM FRACTIONATING STILL OPERATOR Appointment [facility] 2nd Nm [address] [place] [address] Aviva Humphries MD [address] [place] [address] Infusion Chair 5, 2nd Floor Hall 08/25/2024 1:00 PM FRACTIONATING STILL OPERATOR Office Visit [facility] Gynecologic Oncology Hall [address] [place] [address] Edilia Pettit, CHELY [address] [facility] [address] [place] [address] 08/25/2024 1:30 PM FRACTIONATING STILL OPERATOR Appointment [facility] 2nd Fl [address] [place] [address] Aviva Humphries MD [address] [address] [facility] [address] [place] [address] Infusion Chair 1, 2nd Floor [place] 09/01/2024 10:45 AM FRACTIONATING STILL OPERATOR Appointment Randy Hall [facility] Nuclear Medicine [address] [place] [address] [id number] Edilia Pettit, CHELY [address] [facility] [address] [place] [address] documented as of this encounter Visit Diagnoses Not on filedocumented in this encounter Care Teams Relief Charge Nurse Relationship Specialty Start Date End Date Shilo Soares MD [address] [place] [address] PCP - General Internal Medicine 04/24/23 documented as of this encounter
--- OUTSIDE RECORDS SUMMARY | 2024-07-26 23:44 | XMS_ITS | Encounter Summary ---
Author Organization [facility] Address [address] [place] [address] Care Team Providers Care Rib Bender Name Role Phone Shilo Soares MD Primary Care Provider [phone] Encounter Details Date Type Department Care Team (Late st Contact Info) Description 05/12/2024 Orders Only [facility] Gynecologic Oncology Hall [address] [facility] [address] [place] [address] Edilia Pettit NP [address] [facility] [address] [place] [address] Social History Tobacco Use Types [...] of this encounter Progress Notes * Edilia Pettit NP - 05/12/2024 12:44 PM CDT HGB 7.5. Will give 1 unit of PRBC and reduce Lynparza from 300mg BID to 250mg BID. Ok to receive sima today. CHEPE Alas- TUFTER OPERATOR Oncology documented in this encounter Plan of Treatment Upcoming Encounters Date Type Department Care Team (Late st Contact Info) Description 08/04/2024 1:00 PM NETWORK INTERN Appointment Randy [facility] Infusion Center 2nd Nh [address] [place] [address] Aviva Humphries MD [address] [facility] [address] [place] [address] Infusion Chair 5, 2nd Floor [place] 08/25/2024 1:00 PM NETWORK INTERN Office Visit [facility] Gynecologic Oncology [place] [address] [facility] [address] [place] [address] Edilia Pettit NP [address] [facility] [address] [place] [address] 08/25/2024 1:30 PM NETWORK INTERN Appointment [facility] Infusion Center 2nd Fl [address] [place] [address] Aviva Humphries MD [address] [facility] [address] [facility] [place] [address] Infusion Chair 1, 2nd Floor [place] 09/01/2024 10:45 AM NETWORK INTERN Appointment [facility] Nuclear Medicine [address] [place] [address] [id number] Edilia Pettit NP [address] [place] [address] documented as of this encounter Visit Diagnoses Not on filedocumented in this encounter Care Teams Rib Bender Relationship Specialty Start Date End Date Shilo Soares MD [address] [address] PCP - General Internal Medicine 04/24/23 documented as of this encounter
--- OUTSIDE RECORDS SUMMARY | 2024-07-26 23:44 | XMS_ITS | Encounter Summary ---
Author Organization [facility] Address [address] [place] [address] Care Team Providers Care It Sales Executive Name Role Phone Shilo Soares MD Primary Care Provider [phone] Encounter Details Date Type Department Care Team (Late Contact Info) Description 05/06/2024 External Device Data STL ABSTRACTION Provider, [...] (Late Contact Info) Description 08/04/2024 1:00 PM HVAC R INSTRUCTOR Appointment [facility] 2nd Wv [address] [place] [address] Aviva Humphries MD [address] [place] [address] Infusion Chair 5, 2nd Floor Hall 08/25/2024 1:00 PM HVAC R INSTRUCTOR Office Visit [facility] Gynecologic Oncology Hall [address] [place] [address] Edilia Pettit, CHELY [address] [facility] [address] [place] [address] 08/25/2024 1:30 PM HVAC R INSTRUCTOR Appointment [facility] 2nd Fl [address] [place] [address] Aviva Humphries MD [address] [facility] [address] [place] [address] Infusion Chair 1, 2nd Floor [place] 09/01/2024 10:45 AM HVAC R INSTRUCTOR Appointment Randy [facility] Nuclear Medicine [address] [place] [address] [id number] Edilia Pettit, CHELY [address] [facility] [address] [place] [address] documented as of this encounter Visit Diagnoses Not on filedocumented in this encounter Care Teams It Sales Executive Relationship Specialty Start Date End Date Shilo Soares MD [address] [place] [address] PCP - General Internal Medicine 04/24/23 documented as of this encounter
--- OUTSIDE RECORDS SUMMARY | 2024-07-26 23:44 | XMS_ITS | Encounter Summary ---
Author Organization [facility] Address [address] [place] [address] Care Team Providers Care Heating Systems Installer Name Role Phone Shilo Soares MD Primary Care Provider [phone] Encounter Details Date Type Department Care Team (Late Contact Info) Description 04/28/2024 External Device Data STL ABSTRACTION Provider, [...] (Late Contact Info) Description 08/04/2024 1:00 PM TEACHER DANCING Appointment [facility] 2nd Ca [address] [place] [address] Aviva Humphries MD [address] [place] [address] Infusion Chair 5, 2nd Floor [place] 08/25/2024 1:00 PM TEACHER DANCING Office Visit [facility] Gynecologic Oncology Hall [address] [place] [address] Edilia Pettit, CHELY [address] [place] [address] 08/25/2024 1:30 PM TEACHER DANCING Appointment [facility] 2nd Fl [address] [place] [address] Aviva Humphries MD [address] [facility] [address] [place] [address] Infusion Chair 1, 2nd Floor [place] 09/01/2024 10:45 AM TEACHER DANCING Appointment [facility] Nuclear Medicine [address] [place] [address] [id number] Edilia Pettit, CHELY [address] [facility] [address] [place] [address] documented as of this encounter Visit Diagnoses Not on filedocumented in this encounter Care Teams Heating Systems Installer Relationship Specialty Start Date End Date Shilo Soares MD [address] [place] [address] PCP - General Internal Medicine 04/24/23 documented as of this encounter
--- OUTSIDE RECORDS SUMMARY | 2024-07-26 23:44 | XMS_ITS | Encounter Summary ---
Author Organization [facility] Address [address] [place] [address] Care Team Providers Care Dramatic Director Name Role Phone Shilo Soares MD Primary Care Provider [phone] Encounter Details Date Type Department Care Team (Late Contact Info) Description 06/01/2024 External Device Data STL ABSTRACTION Provider, [...] (Late Contact Info) Description 08/04/2024 1:00 PM NETWORK MANAGER Appointment [facility] 2nd Ga [address] [place] [address] Aviva Humphries MD [address] [place] [address] Infusion Chair 5, 2nd Floor Hall 08/25/2024 1:00 PM NETWORK MANAGER Office Visit [facility] Gynecologic Oncology Hall [address] [place] [address] Edilia Pettit, CHELY [address] [facility] [address] [place] [address] 08/25/2024 1:30 PM NETWORK MANAGER Appointment [facility] 2nd Fl [address] [place] [address] Aviva Humphries MD [address] [facility] [address] [place] [address] Infusion Chair 1, 2nd Floor [place] 09/01/2024 10:45 AM NETWORK MANAGER Appointment Randy [facility] Nuclear Medicine [address] [place] [address] [id number] Edilia Pettit, CHELY [address] [facility] [address] [place] [address] documented as of this encounter Visit Diagnoses Not on filedocumented in this encounter Care Teams Dramatic Director Relationship Specialty Start Date End Date Shilo Soares MD [address] [place] [address] PCP - General Internal Medicine 04/24/23 documented as of this encounter
--- OUTSIDE RECORDS SUMMARY | 2024-07-26 23:44 | XMS_ITS | Encounter Summary ---
Author Organization [facility] Address [address] [place] [address] Care Team Providers Care Camera Repairman Name Role Phone Shilo Soares MD Primary Care Provider [phone] Encounter Details Date Type Department Care Team (Late Contact Info) Description 05/19/2024 External Device Data STL ABSTRACTION Provider, [...] (Late Contact Info) Description 08/04/2024 1:00 PM HOMICIDE SQUAD CAPTAIN Appointment [facility] 2nd Wy [address] [place] [address] Aviva Humphries MD [address] [place] [address] Infusion Chair 5, 2nd Floor Hall 08/25/2024 1:00 PM HOMICIDE SQUAD CAPTAIN Office Visit [facility] Gynecologic Oncology Hall [address] [place] [address] Edilia Pettit, CHELY [address] [facility] [address] [place] [address] 08/25/2024 1:30 PM HOMICIDE SQUAD CAPTAIN Appointment [facility] 2nd Fl [address] [place] [address] Aviva Humphries MD [address] [facility] [address] [place] [address] Infusion Chair 1, 2nd Floor [place] 09/01/2024 10:45 AM HOMICIDE SQUAD CAPTAIN Appointment Randy [facility] Nuclear Medicine [address] [place] [address] [id number] Edilia Pettit, CHELY [address] [facility] [address] [place] [address] documented as of this encounter Visit Diagnoses Not on filedocumented in this encounter Care Teams Camera Repairman Relationship Specialty Start Date End Date Shilo Soares MD [address] [place] [address] PCP - General Internal Medicine 04/24/23 documented as of this encounter
--- OUTSIDE RECORDS SUMMARY | 2024-07-26 23:44 | XMS_ITS | Encounter Summary ---
Author Organization [facility] Address [address] [place] [address] Care Team Providers Care Air Liaison And Special Staff Name Role Phone Shilo Soares MD Primary Care Provider [phone] Encounter Details Date Type Department Care Team (Late Contact Info) Description 05/03/2024 External Device Data STL ABSTRACTION Provider, [...] (Late Contact Info) Description 08/04/2024 1:00 PM FURNACE AND WASH EQUIPMENT OPERATOR Appointment [facility] 2nd Ga [address] [place] [address] Aviva Humphries MD [address] [place] [address] Infusion Chair 5, 2nd Floor [place] 08/25/2024 1:00 PM FURNACE AND WASH EQUIPMENT OPERATOR Office Visit [facility] Gynecologic Oncology Hall [address] [place] [address] Edilia Pettit, CHELY [address] [facility] [address] [place] [address] 08/25/2024 1:30 PM FURNACE AND WASH EQUIPMENT OPERATOR Appointment [facility] 2nd Fl [address] [place] [address] Aviva Humphries MD [address] [facility] [address] [place] [address] Infusion Chair 1, 2nd Floor [place] 09/01/2024 10:45 AM FURNACE AND WASH EQUIPMENT OPERATOR Appointment [facility] Nuclear Medicine [address] [place] [address] [id number] Edilia Pettit, CHELY [address] [facility] [address] [place] [address] documented as of this encounter Visit Diagnoses Not on filedocumented in this encounter Care Teams Air Liaison And Special Staff Relationship Specialty Start Date End Date Shilo Soares MD [address] [place] [address] PCP - General Internal Medicine 04/24/23 documented as of this encounter
--- OUTSIDE RECORDS SUMMARY | 2024-07-26 23:44 | XMS_ITS | Encounter Summary ---
Author Organization [facility] Address [address] [place] [address] Care Team Providers Care Restaurant Attendant Name Role Phone Shilo Soares MD Primary Care Provider [phone] Encounter Details Date Type Department Care Team [...] (Late Contact Info) Description 08/04/2024 1:00 PM LOGISTICS TEAM LEAD Appointment [facility] 2nd Nv [address] [place] [address] Aviva Humphries MD [address] [place] [address] Infusion Chair 5, 2nd Floor Hall 08/25/2024 1:00 PM LOGISTICS TEAM LEAD Office Visit [facility] Gynecologic Oncology Hall [address] [place] [address] Edilia Pettit, CHELY [address] [facility] [address] [place] [address] 08/25/2024 1:30 PM LOGISTICS TEAM LEAD Appointment [facility] 2nd Fl [address] [place] [address] Aviva Humphries MD [address] [facility] [address] [place] [address] Infusion Chair 1, 2nd Floor [place] 09/01/2024 10:45 AM LOGISTICS TEAM LEAD Appointment Randy [facility] Nuclear Medicine [address] [place] [address] [id number] Edilia Pettit, CHELY [address] [facility] [address] [place] [address] documented as of this encounter Visit Diagnoses Not on filedocumented in this encounter Care Teams Restaurant Attendant Relationship Specialty Start Date End Date Shilo Soares MD [address] [place] [address] PCP - General Internal Medicine 04/24/23 documented as of this encounter
--- OUTSIDE RECORDS SUMMARY | 2024-07-26 23:44 | XMS_ITS | Encounter Summary ---
Author Organization [facility] Address [address] [place] [address] Care Team Providers Care Insole And Outsole Preparer Name Role Phone Shilo Soares MD Primary Care Provider [phone] Encounter Details Date Type Department Care Team (Late Contact Info) Description 05/09/2024 External Device Data STL ABSTRACTION Provider, [...] (Late Contact Info) Description 08/04/2024 1:00 PM MANUFACTURING CONTROLS ENGINEER Appointment [facility] 2nd Az [address] [place] [address] Aviva Humphries MD [address] [place] [address] Infusion Chair 5, 2nd Floor [place] 08/25/2024 1:00 PM MANUFACTURING CONTROLS ENGINEER Office Visit [facility] Gynecologic Oncology Hall [address] [place] [address] Edilia Pettit, CHELY [address] [facility] [address] [place] [address] 08/25/2024 1:30 PM MANUFACTURING CONTROLS ENGINEER Appointment [facility] 2nd Fl [address] [place] [address] Aviva Hmuphries MD [address] [facility] [address] [place] [address] Infusion Chair 1, 2nd Floor [place] 09/01/2024 10:45 AM MANUFACTURING CONTROLS ENGINEER Appointment Randy [facility] Nuclear Medicine [address] [place] [address] [id number] Edilia Pettit, CHELY [address] [facility] [address] [place] [address] documented as of this encounter Visit Diagnoses Not on filedocumented in this encounter Care Teams Insole And Outsole Preparer Relationship Specialty Start Date End Date Shilo Soares MD [address] [place] [address] PCP - General Internal Medicine 04/24/23 documented as of this encounter
--- OUTSIDE RECORDS SUMMARY | 2024-07-26 23:44 | XMS_ITS | Encounter Summary ---
Author Organization [facility] Address [address] [place] [address] Care Team Providers Care Ski Base Trimmer Name Role Phone Shilo Soares MD Primary Care Provider [phone] Encounter Details Date Type Department Care Team (Late Contact Info) Description 05/17/2024 External Device Data STL ABSTRACTION Provider, [...] (Late Contact Info) Description 08/04/2024 1:00 PM OPERATIONS ARCHITECT Appointment [facility] 2nd Ut [address] [place] [address] Aviva Humphries MD [address] [place] [address] Infusion Chair 5, 2nd Floor [place] 08/25/2024 1:00 PM OPERATIONS ARCHITECT Office Visit [facility] Gynecologic Oncology Hall [address] [place] [address] Edilia Pettit, CHELY [address] [facility] [address] [place] [address] 08/25/2024 1:30 PM OPERATIONS ARCHITECT Appointment [facility] 2nd Fl [address] [place] [address] Aviva Humphries MD [address] [facility] [address] [facility] [address] [place] [address] Infusion Chair 1, 2nd Floor [place] 09/01/2024 10:45 AM OPERATIONS ARCHITECT Appointment Randy [facility] Nuclear Medicine [address] [place] [address] [id number] Edilia Pettit, CHELY [address] [facility] [address] [place] [address] documented as of this encounter Visit Diagnoses Not on filedocumented in this encounter Care Teams Ski Base Trimmer Relationship Specialty Start Date End Date Shilo Soares MD [address] [place] [address] PCP - General Internal Medicine 04/24/23 documented as of this encounter
--- OUTSIDE RECORDS SUMMARY | 2024-07-26 23:44 | XMS_ITS | Encounter Summary ---
Author Organization [employer] Address [address] [place] [address] Care Team Providers Care Professional Model Name Role Phone Shilo Soares MD Primary Care Provider [phone] Reason for Visit * Tx/Med Therapy Plan Auth (Routine) - Authorized Specialty Diagnoses / Procedures Referred By Alison gomez Referred To Contact Diagnoses Malignant neoplasm of ovary, unspecified laterality Encounter for antineoplastic chemotherapy Nausea Procedures AZ PACLITAXEL INJECTION AZ CARBOPLATIN INJECTION AZ INJ MVASI 10 MG AZ FOSAPREPITANT INJECTION AZ PALONOSETRON HCL AZ DEXAMETHASONE SODIUM PHOS AZ METHYLPREDNISOLONE INJECTION AZ DIPHENHYDRAMINE HCL INJECTIO AZ INJECTION, FAMOTIDINE, 20 MG TAXOL, CARBO, MVASI, EMEND, ALOXI, DECADRON, SOLU MEDROL, BENADRYL, PEPCID Aviva Humphries MD [address] [facility] [address] [place] [address] [facility] 2nd Floor [place] [address] [place] [address] Referral ID Status Reason Start Date Expiration Date V isits Requested Visits Authorized [id number] Authorized 05/20/2023 05/26/2025 99 99 Encounter Details Date Type Department Care Team (Latest Contact Info) Description 05/12/2024 11:50 AM CDT - 05/12/2024 11:59 PM CDT Hospital Encounter [facility] Infusion Center 2nd Fl [address] [place] [address] Aviva Humphries MD [address] [facility] [address] [place] [address] Infusion Chair 2, 2nd Floor Hall Discharge [...] Sign Reading Time Taken Comments Blood Pressure 134/65 05/12/2024 4:04 PM CDT Pulse 88 05/12/2024 4:04 PM CDT Temperature 36.3 ??C (97.3 ??F) 05/12/2024 4:03 PM CD T Respiratory Rate 16 05/12/2024 4:03 PM CDT Oxygen Saturation - - Inhaled Oxygen Concentration - - Weight 51.1 kg (112 lb 9.6 oz) 05/12/2024 12:59 PM CDT Height - - Body Mass Index 18.17 04/21/2024 11:08 AM CDT documented in this encounter Medications [...] bedtime. 02/26/2021 fluticasone propionate (FLONASE) 50 mcg/spray [place], Suspension nasal inhaler Administer 2 Sprays in [...] as of this encounter Progress Notes * Kirstie Roach RN - 05/12/2024 1:00 PM CDT Narda Mayen admitted to [facility] for blood transfusion. Narda Mayen tolerated without side effects/transfusion reaction. Prior to transfusion, importance of blood product and side effects discussed with patient/family and consent obtained. Instructed patient/family to notify kaleigh hysician or report to ED if temperature 100.5 or higher, difficulty breathing, signs/symptoms of allergic reaction or any change in condition. Written instructions concerning possible adverse events provided. Patient/family verbalized understanding. Discharged home. November Tiarra Chemotherapy Infusion complete, pt tolerated without complaints of discomfort at this time. Denies any hypersensitivity reactions. Port flushed with compatible IV solution, then flushed with saline and heparin per [facility] policy. Port deaccessed. Prior to chemotherapy administration:reviewed with pt/family the goal of chemotherapy regimen, the method of administration, and potential side effects. Instructed pt/family to notify physician or go to ED if fever 100.5 F or higher, chills, or any change in condition. Pt/family verbalized understanding. Discharged home. documented in this encounter Plan of Treatment Upcoming Encounters Date Type Department Care Team (Late st Contact Info) Description 08/04/2024 1:00 PM DIGITAL RESEARCH ANALYST Appointment Randy Proctor [facility] Infusion Center [facility] [address] [place] [address] Aviva Humphries MD [address] [facility] [address] [place] [phone] Infusion Chair 5, 2nd Floor [place] 08/25/2024 1:00 PM DIGITAL RESEARCH ANALYST Office Visit [facility] Gynecologic Oncology Hall [address] [phone] Edilia Pettit NP [address] [phone] 08/25/2024 1:30 PM DIGITAL RESEARCH ANALYST Appointment Randy Proctor [facility] [address] [place] [address] Aviva Humphries MD [address] [facility] [address] [place] [phone] Infusion Chair 1, 2nd Floor Hall 09/01/2024 10:45 AM DIGITAL RESEARCH ANALYST Appointment Randy Proctor Hall [facility] Nuclear Medicine [address] [place] [address] [phone] Edilia Pettit, CHARTER PILOT [address] [facility] [address] [place] [address] Scheduled Orders Name Type Priority Associated Diagnoses Orde r Schedule URINALYSIS WITH REFLEX CULTURE Lab Stat Malignant neoplasm of ovary, unspecified laterality Expected: 05/12/2024, Expires: 05/12/2025 documented as of this encounter Procedures Procedure Name Priority Date/Time Associated Diagnosis Comments TRANSFUSE PACKED RED BLOOD CELLS Stat 05/12/2024 2:39 PM CDT PREPARE RED BLOOD CELLS Stat 05/12/2024 1:04 PM CDT Malignant neoplasm of ovary, unspecified laterality TYPE AND SCREEN Routine 05/12/2024 12:53 PM CDT Malignant neoplasm of ovary, unspecified laterality documented in this encounter Results * TRANSFUSE RED BLOOD CELLS (05/12/2024 4:16 PM CDT) Aviva Humphries MD BLOOD TRANSFUSION OR DERABLES * TRANSFUSE RED BLOOD CELLS (05/12/2024 4:16 PM CDT) Aviva Humphries MD BLOOD TRANSFUSION OR DERABLES * PREPARE RED BLOOD CELLS (05/12/2024 1:04 PM CDT) COMPONENT TYPE [id number] [facility] COMPONENT IDENTIFICATION [id number] [facility] UNIT ABO A [facility] UN[facility] RH POS [facility] CROSSMATCH Compatible [facility] COMPONENT STATUS Transfused ME [facility] COMPONENT EXPIRATION DATE/TIME [id number] [facility] COMPONENT CODING SYSTEM 6200 [facility] VOLUME, BLOOD PRODUCT 273 [facility] Other, specify 05/12/2024 1: 04 PM CDT Aviva Humphries MD LAB TRANSFUSION [facility] [employer] [employer] SERVICES -- [facility] CLIA# [id number] [address] [place] [address] * TYPE AND SCREEN (05/12/2024 12:53 PM CDT) ABO GROUP A 05/12/2024 2:14 PM CDT [facility] -- [facility] RH (D) TYPE Positive 05/12/2024 2:14 PM CDT [facility] ANTIBODY SCREEN Negative 05/12/2024 2:14 PM CDT [facility] Blood Collection / Unknown 05/12/2024 12:53 PM CDT 05/12/2024 1:02 PM CDT Aviva Humphries MD BLOOD BANK ORDERABLE S [employer] -- [facility] CLJORDYN# [id number] [address] [place] [address] * (ABNORMAL) URINALYSIS WITH REFLEX MICROSCOPIC (05/12/2024 11:38 AM CDT) COLOR UA Yellow Pale to Dark Yellow 05/12/2024 12:31 PM CDT [facility] - . [facility] CLARITY UA Clear Clear 05/12/2024 12:31 PM CDT [facility] SPECIFIC GRAVITY UA 1.013 1.003 - 1.035 05/12/2024 12:31 PM CDT [facility] - . [facility] PH UA 5.0 5.0 - 8.0 05/12/2024 12:31 PM CDT [facility] LEUKOCYTE ESTERASE UA 3+(A) Negative 05/12/2024 12:31 PM CDT [facility] NITRITE UA Negative Negative 05/12/2024 12:31 PM CDT [facility] PROTEIN UA Negative Negative 05/12/2024 12:31 PM CDT [facility] - [facility] GLUCOSE UA Negative Negative 05/12/2024 12:31 PM CDT [facility] KETONES UA Negative Negative 05/12/2024 12:31 PM CDT [facility] - . [facility] UROBILINOGEN UA Normal <2.0 mg/dL 12:31 PM CDT [facility] BILIRUBIN UA Negative Negative 05/12/2024 12:31 PM CDT [facility] BLOOD UA Negative Negative 05/12/2024 12:31 PM CDT [facility] WBC UA 26-50(A) 0 - 2 /hpf 05/12/2024 12:31 PM CDT [facility] RBC UA 0-2 0 - 2 /hpf 05/12/2024 12:31 PM CDT [facility] BACTERIA UA Negative Negative /hpf 05/12/2024 12:31 PM T [facility] - . [facility] EPITHELIAL CELLS, URINE 0-5 0 - 5 /hpf 05/12/2024 12:31 PM T [facility] - . [facility] Urine URINE SPECIMEN OBTAINED BY CLEAN CATCH PROCEDURE / Unknown Collection / Unknown 05/12/2024 11:38 AM CDT 05/12/2024 12:04 PM CDT Aviva Humphries MD URINE ORDERABLES [facility]# [id number] [address] [place] [address] * CANCER ANTIGEN 125 (05/12/2024 11:38 AM CDT) CA 125 6 <35 U/mL [facility] Comment: This test was performed using the Siemens Chemiluminescent method. Values obtained from different assay methods cannot be used interchangeably. CA 125 levels, regardless of value, should not be interpreted as absolute evidence of the presence or absence of disease. Test Performed at: [facility] [address] [address] ??[phone] Radha Perez MD Blood 05/12/2024 11:3 8 AM CDT 05/12/2024 12:02 PM CDT Aviva Humphries MD CHEMISTRY ORDERABLES [facility] [phone] [facility] [address] [place] [address] * (ABNORMAL) COMPREHENSIVE METABOLIC PANEL (05/12/2024 11:38 AM CDT) SODIUM 135(L) 136 - 145 mmol/L 05/12/2024 12:43 PM CDT [facility] POTASSIUM 3.9 3.5 - 5.0 mmol/L 05/12/2024 12:43 PM CDT [facility] CHLORIDE 101 98 - 107 mmol/L 05/12/2024 12:43 PM CDT [facility] CO2 23 22 - 29 mmol/L 05/12/2024 12:43 PM CDT [facility] CALCIUM 9.3 8.6 - 10.2 mg/dL 05/12/2024 12:43 PM CDT [facility] BUN 11 8 - 23 mg/dL 05/12/2024 12:43 PM CDT [facility] CREATININE 0.98(H) 0.51 - 0.95 mg/dL 05/12/2024 12:43 PM CDT [facility] GLUCOSE 146(H) 74 - 99 mg/dL 05/12/2024 12:43 PM CDT [facility] TOTAL PROTEIN 7.0 6.7 - 8.6 g/dL 05/12/2024 12:43 PM CDT [facility] ALBUMIN 4.2 3.5 - 5.2 g/dL 05/12/2024 12:43 PM CDT [facility] BILIRUBIN TOTAL 0.5 0.2 - 1.1 mg/dL 05/12/2024 12:43 PM CDT [facility] ALKALINE PHOSPHATASE 82 35 - 104 U/L 05/12/2024 12:43 PM T [facility] AST 22 <33 U/L 05/12/2024 12:43 PM [facility] ALT 19 <34 U/L 05/12/2024 12:43 PM [facility] GFR >60 >=60 mL/min/1.7 3 sq meter 05/12/2024 12:43 PM [facility] Comment:eGFR calculated with 2020 CKD-EPI equation. Vegetarian diet, extremely high or low muscle mass, and may affect results. Cystatin C with Glomerular Filtration Rate is a suitable alternative for these patients. ANION GAP 11 8 - 16 mmol/L 05/12/2024 12:43 PM [facility] Blood Collection / Unknown 05/12/2024 11:38 AM CDT 05/12/2024 12:07 PM CDT [facility] 05/12/2024 12:43 PM CDT Samples containing indocyanine green cause interferences on Total and/or Direct Bilirubin and must not be measured. Aviva Humphries MD CHEMISTRY ORDERABLES [facility]# [id number] [address] [facility] [place] [address] * (ABNORMAL) CBC WITH DIFFERENTIAL (05/12/2024 11:38 AM CDT) Pathologist [facility] WBC 4.7 4.0 - 9.8 K/uL 05/12/2024 11:59 AM T [facility] RBC 1.78(L) 3.90 - 4.90 M/uL 05/12/2024 11:59 AM T [facility] HEMOGLOBIN 7.5(L) 11.8 - 14.8 g/dL 05/12/2024 11:59 AM T [facility] HEMATOCRIT 22.0(L) 35.5 - 44.0 % 05/12/2024 11:59 AM CDT [facility] MCV 123.6(H) 82.0 - 99.0 fL 05/12/2024 11:59 AM CDT [facility] MCH 42.1(H) 27.2 - 32.6 pg 05/12/2024 11:59 AM CDT [facility] MCHC 34.1 31.5 - 35.5 g/dL 05/12/2024 11:59 AM CDT [facility] RDW 19.7(H) 11.5 - 14.5 % 05/12/2024 11:59 AM CDT [facility] RDW-STDEV 88.2(H) 37.1 - 48.7 fL 05/12/2024 11:59 AM CDT [facility] [place] PLATELETS 120(L) 140 - 350 K/uL 05/12/2024 11:59 AM CDT [facility] MPV 11.8 9.3 - 12.4 fL 05/12/2024 11:59 AM CDT [facility] NEUTROPHILS 56 % 05/12/2024 11:59 AM CDT [facility] LYMPHOCYTES 36 % 05/12/2024 11:59 AM CDT [facility] MONOCYTES 6 % 05/12/2024 11:59 AM CDT [facility] EOSINOPHILS 0 % 05/12/2024 11:59 AM CDT [facility] BASOPHILS 0 % 05/12/2024 11:59 AM CDT [facility] IMMATURE GRANULOCYTES 0 % 05/12/2024 11:59 AM CDT [facility] NEUTROPHIL ABSOLUTE 2.62 1.90 - 7.00 K/uL 05/12/2024 11:59 AM CDT [facility] LYMPHOCYTE ABSOLUTE 1.70 0.70 - 4.50 K/uL 05/12/2024 11:59 AM CDT [facility] MONOCYTE ABSOLUTE 0.30 0.10 - 1.30 K/uL 05/12/2024 11:59 AM CDT [facility] EOSINOPHIL ABSOLUTE 0.02 0.00 - 0.70 K/uL 05/12/2024 11:59 AM CDT [facility] . [facility] BASOPHILS ABSOLUTE 0.02 0.00 - 0.20 K/uL 05/12/2024 11:59 AM CDT [facility] - . [facility] IMMATURE GRANULOCYTES ABSOLUTE 0.01 0.00 - 0.03 K/uL 05/12/2024 11:59 AM CDT [facility] - . [facility] Blood Collection / Unknown 05/12/2024 11:38 AM CDT 05/12/2024 11:57 AM CDT Aviva Humphries MD HEMATOLOGY ORDERABLE S [facility] CLIA# [id number] [address] [place] [address] documented in this encounter Visit Diagnoses Diagnosis Malignant neoplasm of ovary, unspecified laterality- Primary documented in this encounter Administered Medications Inactive Administered Medications - up to 3 most recent administrations Medication Order MAR Action Action Date Dose Rate Site acetaminophen (TYLENOL) tablet 650 mg 650 mg, Oral, ONE TIME ONLY, 1 dose, On Peace 05/12/24 at 1315, Routine Given 05/12/2024 2:28 PM CDT 650 mg bevacizumab-awwb (MVASI) 773 mg in sodium chloride 0.9% 100 mL IVPB 773 mg (rounded from 772.5 mg = 15 mg/kg ? 51.5 kg Treatment plan Recorded weight), IV, ONE TIME ONLY, 1 dose, On Peace 05/12/24 at 1300, Routine New Bag 05/12/2024 1:13 PM CDT 773 mg 291.8 mL/hr diphenhydrAMINE (BENADRYL) tablet 25 mg 25 mg, Oral, ONE TIME ONLY, 1 dose, On Peace 05/12/24 at 1315, Routine Given 05/12/2024 2:28 PM CDT 25 mg heparin, porcine (pf) 10 unit/mL IV syringe 50 Units 50 Units, IV, ONE TIME ONLY, 1 dose, On Peace 05/12/24 at 1315, Routine Given 05/12/2024 4:17 PM CDT 50 Units sodium chloride 0.9% infusion IV, at 30-999 mL/hr, CONTINUOUS, Starting on Peace 05/12/24 at 1300, Until Thu05/13/24 at 0257, Routine New Bag 05/12/2024 12:56 PM CDT 30 mL/hr 30 mL/hr sodium chloride flush injection 10 mL 10 mL, IV, SEE ADMIN INSTRUCTIONS, Starting on Peace 05/12/24 at 1245, Until Thu05/13/24 at 0257, Routine Given 05/12/2024 12:56 PM CDT 10 mL documented in this encounter Care Teams Professional Model Relationship Specialty Start Date End Date Shilo Soares MD [address] [address] PCP - General Internal Medicine 04/24/23 documented as of this encounter
--- OUTSIDE RECORDS SUMMARY | 2024-07-26 23:44 | XMS_ITS | Encounter Summary ---
Author Organization [facility] Address [address] [place] [address] Care Team Providers Care Assembler Molded Frames Name Role Phone Shilo Soares MD Primary Care Provider [phone] Encounter Details Date Type Department Care Team (Late Contact Info) Description 05/29/2024 External Device Data STL ABSTRACTION Provider, [...] (Late Contact Info) Description 08/04/2024 1:00 PM MAGISTRATE JUDGE Appointment [facility] [address]nd La [address] [place] [address] Aviva Humphries MD [address] [place] [address] Infusion Chair 5, 2nd Floor Hall 08/25/2024 1:00 PM MAGISTRATE JUDGE Office Visit [facility] Gynecologic Oncology Hall [address] [place] [address] Edilia Pettit, CHELY [address] [place] [phone] 08/25/2024 1:30 PM MAGISTRATE JUDGE Appointment [facility] Center 2nd Fl [address] [place] [address] Aviva Humphries MD [address] [place] [address] Infusion Chair 1, 2nd Floor [place] 09/01/2024 10:45 AM MAGISTRATE JUDGE Appointment [facility] Nuclear Medicine [address] [place] [id number] Edilia Pettit, CHELY [address] [facility] [address] [place] [phone] documented as of this encounter Visit Diagnoses Not on filedocumented in this encounter Care Teams Assembler Molded Frames Relationship Specialty Start Date End Date Shilo Soares MD [address] [place] [address] PCP - General Internal Medicine 04/24/23 documented as of this encounter
--- OUTSIDE RECORDS SUMMARY | 2024-07-26 23:44 | XMS_ITS | Encounter Summary ---
Author Organization [facility] Address [address] [place] [address] Care Team Providers Care Tie Tape Machine Operator Name Role Phone Shilo Soares MD Primary Care Provider [phone] Encounter Details Date Type Department Care Team (Late Contact Info) Description 05/02/2024 Orders Only [facility] Gynecologic Oncology Hall [address] [place] [address] Aviva Humphries MD [address] [place] [address] Malignant neoplasm of ovary, unspecified laterality (Primary Dx); Anemia in neoplastic disease Social History Tobacco Use Types Packs/Day Years [...] (Late Contact Info) Description 08/04/2024 1:00 PM CNA HHA Appointment [facility] 2nd Fl [address] [place] [address] Aviva Humphries MD [address] [facility] [address] [place] [phone] Infusion Chair 5, 2nd Floor Hall 08/25/2024 1:00 PM CNA HHA Office Visit [facility] Gynecologic Oncology Hall [address] [facility] [address] [place] [address] Edilia Pettit, CHELY [address] [facility] [address] [place] [address] 08/25/2024 1:30 PM CNA HHA Appointment [facility] Infusion Center 2nd Fl [address] [place] [address] Aviva Humphries MD [address] [facility] [address] [facility] [place] [phone] Infusion Chair 1, 2nd Floor Hall 09/01/2024 10:45 AM CNA HHA Appointment [facility] Nuclear Medicine [address] [place] [address] [phone] Edilia Pettit, HCELY [address] [facility] [address] [place] [phone] documented as of this encounter Procedures Procedure Name Priority Date/Time Associated Diagnosis Comments VITAMIN B12 AND FOLATE Routine 05/03/2024 10:23 AM CDT Malignant neoplasm of ovary, unspecified 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 IRON, TIBC, AND PERCENT SATURATION Routine 05/03/2024 10:23 AM CDT Malignant neoplasm of ovary, unspecified 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 FERRITIN Routine 05/03/2024 10:23 AM CDT Malignant neoplasm of ovary, unspecified 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 documented in this encounter Results * (ABNORMAL) IRON, TIBC, AND PERCENT SATURATION (05/03/2024 10:23 AM CDT) IRON 135 45 - 160 mcg/dL [facility] TIBC 283 250 - 450 mcg/dL (calc) [facility] IRON % SATURATION 48(H) 16 - 45 % (calc) [facility] Comment: FASTING:NO FASTING: NO Test Performed at: [facility] [place] ??[phone] Radha Perez MD Blood 05/03/2024 10:2 3 AM CDT 05/03/2024 10:24 AM CDT Aviva Humphries MD CHEMISTRY ORDERABLES Performing Organization Address City/[facility]/ZIP Co de Phone Number [facility] [phone] [facility] [place] [address] * FERRITIN (05/03/2024 10:23 AM CDT) FERRITIN 182 16 - 288 ng/mL [facility] Comment: Test Performed at: [facility] ??[phone] Radha Perez MD Blood 05/03/2024 10:2 3 AM CDT 05/03/2024 10:24 AM CDT Aviva Humphries MD CHEMISTRY ORDERABLES [facility] [phone] [facility] [address] [address] * (ABNORMAL) VITAMIN B12 AND FOLATE (05/03/2024 [...] will have symptoms. FOLATE, SERUM 4.5(L) ng/mL [facility] Comment: ? Reference Range ? Low: ? <3.4 ? Borderline: ?3.4-5.4 ? Normal: ?>5.4 FASTING:NO FASTING: NO Test Performed at: [facility] ??[phone] Radha Perez MD Blood 05/03/2024 10:2 3 AM CDT 05/03/2024 10:24 AM CDT Aviva Humphries MD CHEMISTRY ORDERABLES Performing Organization Address City/State/[facility] Co de Phone Number [facility] [phone] [facility] [address] [address] documented in this encounter Visit Diagnoses Diagnosis Malignant neoplasm of ovary, unspecified laterality- Primary Anemia in neoplastic disease documented in this encounter Care Teams Tie Tape Machine Operator Relationship Specialty Start Date End Date Shilo Soares MD [address] [place] [address] PCP - General Internal Medicine 04/24/23 documented as of this encounter
--- OUTSIDE RECORDS SUMMARY | 2024-07-26 23:44 | XMS_ITS | Encounter Summary ---
Author Organization [facility] Address [address] [place] [address] Care Team Providers Care Finishing Lab Technician Name Role Phone Shilo Soares MD Primary Care Provider [phone] Encounter Details Date Type Department Care Team (Late Contact Info) Description 05/28/2024 External Device Data STL ABSTRACTION Provider, [...] (Late Contact Info) Description 08/04/2024 1:00 PM PACKER DRIED BEEF Appointment [facility] [address] [place] [address] Aviva Humphries MD [address] [place] [address] Infusion Chair 5, 2nd Floor Hall 08/25/2024 1:00 PM PACKER DRIED BEEF Office Visit [facility] Gynecologic Oncology Hall [address] [place] [address] Edilia Pettit, CHELY [address] [place] [address] 08/25/2024 1:30 PM PACKER DRIED BEEF Appointment [facility] 2nd Fl [address] [place] [address] Aviva Humphries MD [address] [place] [address] Infusion Chair 1, 2nd Floor [place] 09/01/2024 10:45 AM PACKER DRIED BEEF Appointment [facility] Nuclear Medicine [address] [place] [address] [id number] Edilia Pettit, CHELY [address] [facility] [address] [place] [address] documented as of this encounter Visit Diagnoses Not on filedocumented in this encounter Care Teams Finishing Lab Technician Relationship Specialty Start Date End Date Shilo Soares MD [address] [place] [address] PCP - General Internal Medicine 04/24/23 documented as of this encounter
--- OUTSIDE RECORDS SUMMARY | 2024-07-26 23:44 | XMS_ITS | Encounter Summary ---
Author Organization [facility] Address [address] [place] [address] Care Team Providers Care Rhinologist Name Role Phone Shilo Soares MD Primary Care Provider [phone] Encounter Details Date Type Department Care Team (Late Contact Info) Description 05/13/2024 External Device Data STL ABSTRACTION Provider, [...] (Late Contact Info) Description 08/04/2024 1:00 PM BLANKET WASHER Appointment [facility] [address] [place] [address] Aviva Humphries MD [address] [place] [address] Infusion Chair 5, 2nd Floor Hall 08/25/2024 1:00 PM BLANKET WASHER Office Visit [facility] Gynecologic Oncology Hall [address] [place] [address] Edilia Pettit, CHELY [address] [place] [address] 08/25/2024 1:30 PM BLANKET WASHER Appointment [facility] 2nd Fl [address] [place] [address] Aviva Humphries MD [address] [place] [address] Infusion Chair 1, 2nd Floor [place] 09/01/2024 10:45 AM BLANKET WASHER Appointment [facility] Nuclear Medicine [address] [place] [address] [id number] Edilia Pettit, CHELY [address] [facility] [address] [place] [address] documented as of this encounter Visit Diagnoses Not on filedocumented in this encounter Care Teams Rhinologist Relationship Specialty Start Date End Date Shilo Soares MD [address] [place] [address] PCP - General Internal Medicine 04/24/23 documented as of this encounter
--- OUTSIDE RECORDS SUMMARY | 2024-07-26 23:44 | XMS_ITS | Encounter Summary ---
Author Organization [facility] Address [address] [place] [address] Care Team Providers Care Litigation Assistant Name Role Phone Shilo Soares MD Primary Care Provider [phone] Encounter Details Date Type Department Care Team (Late Contact Info) Description 05/30/2024 External Device Data STL ABSTRACTION Provider, [...] (Late Contact Info) Description 08/04/2024 1:00 PM ENGINEERING SURVEYOR Appointment [facility] Mt [address] [place] [address] Aviva Humphries MD [address] [place] [address] Infusion Chair 5, 2nd Floor Hall 08/25/2024 1:00 PM ENGINEERING SURVEYOR Office Visit [facility] Gynecologic Oncology Hall [address] [place] [address] Edilia Pettit, CHELY [address] [place] [address] 08/25/2024 1:30 PM ENGINEERING SURVEYOR Appointment [facility] 2nd Fl [address] [place] [address] Aviva Humphries MD [address] [place] [address] Infusion Chair 1, 2nd Floor [place] 09/01/2024 10:45 AM ENGINEERING SURVEYOR Appointment [facility] Nuclear Medicine [address] [place] [address] [id number] Edilia Pettit, CHELY [address] [facility] [address] [place] [address] documented as of this encounter Visit Diagnoses Not on filedocumented in this encounter Care Teams Litigation Assistant Relationship Specialty Start Date End Date Shilo Soares MD [address] [place] [address] PCP - General Internal Medicine 04/24/23 documented as of this encounter
--- OUTSIDE RECORDS SUMMARY | 2024-07-26 23:44 | XMS_ITS | Encounter Summary ---
Author Organization [facility] Address [address] [place] [address] Care Team Providers Care Gluing Machine Offbearer Name Role Phone Shilo Soares MD Primary Care Provider [phone] Encounter Details Date Type Department Care Team (Late Contact Info) Description 04/30/2024 External Device Data STL ABSTRACTION Provider, [...] (Late Contact Info) Description 08/04/2024 1:00 PM WATERSHED MANAGER Appointment [facility] 2[facility] Nd [address] [place] [address] Aviva Humphrise MD [address] [place] [address] Infusion Chair 5, 2nd Floor Hall 08/25/2024 1:00 PM WATERSHED MANAGER Office Visit [facility] Gynecologic Oncology Hall [address] [place] [address] Edilia Pettit, CHELY [address] [place] [address] 08/25/2024 1:30 PM WATERSHED MANAGER Appointment [facility] 2nd Fl [address] [place] [address] Aviva Humphries MD [address] [place] [address] Infusion Chair 1, 2nd Floor [place] 09/01/2024 10:45 AM WATERSHED MANAGER Appointment [facility] Nuclear Medicine [address] [place] [address] [id number] Edilia Pettit, CHELY [address] [facility] [address] [place] [address] documented as of this encounter Visit Diagnoses Not on filedocumented in this encounter Care Teams Gluing Machine Offbearer Relationship Specialty Start Date End Date Shilo Soares MD [address] [place] [address] PCP - General Internal Medicine 04/24/23 documented as of this encounter
--- OUTSIDE RECORDS SUMMARY | 2024-07-26 23:44 | XMS_ITS | Encounter Summary ---
Author Organization [facility] Address [address] [place] [address] Care Team Providers Care Classroom Instructional Aide Name Role Phone Shilo Soares MD Primary Care Provider [phone] Encounter Details Date Type Department Care Team (Late Contact Info) Description 05/16/2024 External Device Data STL ABSTRACTION Provider, [...] (Late Contact Info) Description 08/04/2024 1:00 PM POWER DRIVEN BRUSH MAKER Appointment [facility] 2[facility] Dc [address] [place] [address] Aviva Humphries MD [address] [place] [address] Infusion Chair 5, 2nd Floor Hall 08/25/2024 1:00 PM POWER DRIVEN BRUSH MAKER Office Visit [facility] Gynecologic Oncology Hall [address] [place] [address] Edilia Pettit, CHELY [address] [facility] [place] [address] 08/25/2024 1:30 PM POWER DRIVEN BRUSH MAKER Appointment [facility] 2nd Fl [address] [place] [address] Aviva Humphries MD [address] [place] [address] Infusion Chair 1, 2nd Floor [place] 09/01/2024 10:45 AM POWER DRIVEN BRUSH MAKER Appointment [facility] Nuclear Medicine [address] [place] [address] [id number] Edilia Pettit, CHELY [address] [facility] [address] [place] [address] documented as of this encounter Visit Diagnoses Not on filedocumented in this encounter Care Teams Classroom Instructional Aide Relationship Specialty Start Date End Date Shilo Soares MD [address] [place] [address] PCP - General Internal Medicine 04/24/23 documented as of this encounter
--- OUTSIDE RECORDS SUMMARY | 2024-07-26 23:44 | XMS_ITS | Encounter Summary ---
Author Organization [facility] Address [address] [place] [address] Care Team Providers Care Investment Consultant Name Role Phone Shilo Soares MD Primary Care Provider [phone] Encounter Details Date Type Department Care Team (Late Contact Info) Description 05/26/2024 External Device Data STL ABSTRACTION Provider, [...] (Late Contact Info) Description 08/04/2024 1:00 PM DICE TABLE PERSON Appointment [facility] 2[facility] Ms [address] [place] [address] Aviva Humphries MD [address] [place] [address] Infusion Chair 5, 2nd Floor [place] 08/25/2024 1:00 PM DICE TABLE PERSON Office Visit [facility] Gynecologic Oncology Hall [address] [place] [address] Edilia Pettit, CHELY [address] [place] [address] 08/25/2024 1:30 PM DICE TABLE PERSON Appointment [facility] 2nd Fl [address] [place] [address] Aviva Humphries MD [address] [place] [address] Infusion Chair 1, 2nd Floor [place] 09/01/2024 10:45 AM DICE TABLE PERSON Appointment [facility] Nuclear Medicine [address] [place] [address] [id number] Edilia Pettit, CHELY [address] [facility] [address] [place] [address] documented as of this encounter Visit Diagnoses Not on filedocumented in this encounter Care Teams Investment Consultant Relationship Specialty Start Date End Date Shilo Soares MD [address] [place] [address] PCP - General Internal Medicine 04/24/23 documented as of this encounter
--- OUTSIDE RECORDS SUMMARY | 2024-07-26 23:44 | XMS_ITS | Encounter Summary ---
Author Organization [facility] Address [address] [place] [address] Care Team Providers Care Academic Advisor Name Role Phone Shilo Soares MD Primary Care Provider [phone] Reason for Referral * PET Scan (Routine) - Closed Specialty Diagnoses / Procedures Referred By Alison gomez Referred To Contact Radiology Diagnoses Malignant neoplasm of ovary, unspecified laterality Pulmonary nodule Procedures PET TUMOR IMG W CT SKB Aviva Mosquera MD [address] [facility] [address] [place] [phone] [facility] [address] [place] [address] [id number] Referral ID Status Reason Start Date Expiration Date Visits Re quested Visits Authorized [id number] Closed 05/24/2024 11/20/2024 1 1 Reason for Visit * PET Scan (Routine) - Closed Specialty Diagnoses / Procedures Referred By Alison gomez Referred To Contact Radiology Diagnoses Malignant neoplasm of ovary, unspecified laterality Pulmonary nodule Procedures PET TUMOR IMG W CT SKB Aviva Mosquera MD [address] [facility] [address] [place] [phone] [facility] Nuclear [facility] [address] [place] [address] [id number] Referral ID Status Reason Start Date Expiration Date Visits Re quested Visits Authorized [id number] Closed 05/24/2024 11/20/2024 1 1 Encounter Details Date Type Department Care Team (Latest Contact Info) Description 05/31/2024 10:30 AM CDT - 05/31/2024 11:59 PM CDT Hospital Encounter [facility] Nuclear Medicine [address] [place] [address] [id number] Aviva Humphries MD [address] [facility] [address] [place] [address] Discharge Disposition: Home or Self [...] on file documented as of this encounter Discharge Summaries * Bossman Adams CNMT - 05/31/2024 11:15 AM CDT OUTPATIENTS DISCHARGE INSTRUCTIONS - DISCHARGE INSTRUCTION CARD GIVEN TO PATIENT: Thank you for choosing [facility], it has been a privilege to serve you! Our team is called to provide compassionate care and exceptional service. Your images will be read by a physician, and your resultswill be available in your [facility] account and to your ordering provider, within 48 hours. Thank youfor trusting [facility] with your care. Your [facility] Imaging Services Care Team documented in this encounter Medications at Time [...] bedtime. 02/26/2021 fluticasone propionate (FLONASE) 50 mcg/spray [place], Suspension nasal inhaler Administer 2 Sprays in [...] as of this encounter Miscellaneous Notes * Treatment Plan - Bossman Adams, [facility] - 05/31/2024 11:15 AM CDT Images from the original note were not included. [facility] IMS Medication and Flush Protocol - Nuclear Medicine Procedures [facility] Approved by: [facility] - Medical Executive Committee Approval Date: 04/29/2024 ORDERS ARE ENTERED ???PER PROTOCOL?? Enter the protocol in the patient's electronic health record using smartphrase: .imagingnucmedicineprotocol The Nuclear Medicine Department and PET/CT Department, in collaboration with the Radiology Clinical Services Consultant, Brick Mason, Non-Invasive Cardiology Clinical Services Consultant, the Pharmacy and Therapeutic Committee, and the Medical Executive Committee, has approved the Nuclear Medicine Medication and Flush Protocol available for implementation by the Yeast Stacker The Yeast Stacker may implement the Nuclear Medicine Medication and Flush Protocol when a provider orders a Nuclear Medicine study by paper or electronic order The Yeast Stacker will order all medication that appears on the MAR using 'Per Protocol or Standing - Cosign Required' The Yeast Stacker will: Verify the correct patient using two patient identifiers Review the order to verify appropriate procedure by reviewing the paper or electronic order before administering the radiopharmaceutical. The order must be signed by a provider. For female patients, confirm the patient is not or breast-feeding as described in department policies Ensure consent forms are obtained for Stress Test and Therapeutic procedures At the time of administration of the radiopharmaceutical, verify the correct patient, correct dosage and radiopharmaceutical with the dose ticket, and the route of administration. All administrationswill be performed in designated areas. Only authorized personnel are to administer radiopharmaceuticals. All injections are performed using radiation safety and universal precautions The exact dose amount assayed in the dose calibrator will be recorded in the Nuclear Medicine Information System Communication Orders: For ordered imaging procedures requiring intravenous access: Initiate a peripheral IV, if not already in place, and discontinue IV prior to discharge (if outpatient). Enter order if needed: Insert Peripheral IV Medication Orders: Local Anesthetic for use to initiate IV ADULT Lidocaine 4% (L.M.X.4) applied topically ONE TIME prior to IV catheter insertion PRN (L.M.X.4 % should be applied 15 minutes prior to procedure) Chart RBCTAGGINGSTL and/or WBCTAGGINGSTL smartphrase as appropriate PEDIATRIC Lidocaine 4% (L.M.X.4) applied topically ONE TIME prior to IV catheter insertion PRN (apply 15 minutes prior to procedure) Sucrose 24% (Tootsweet; Sweet-Ease) oral solution 0.2 mL oral (apply to tongue on pacifier or clean, gloved finger), ONE TIME 2 minutes prior to painful procedure. May repeat dose x1 PRN to complete procedure Sodium chloride 0.9% (normal saline) flush 10 mL PRN for saline lock or medication administration. For respiratory distress, initiate oxygen and/or increase O2 to maintain saturation greater than 90% Procedure Specific Medications: Adult Procedures & Dosages: Note: Radiopharmaceuticals dosages with a range are determined by professor of forest planning calibration Note: In acute Tc99m shortages, radiopharmaceutical dosages may be decreased with approval and documentation within department from medical examiner/AU. Note: Hybrid SPECT/CT imaging used as appropriate for exam and/or as directed by Radiologist PROCEDURE DOSAGE Bone Marrow Imaging Xr00t-Sktkcahu Sulfur Colloid (Zwqmlsehby81f- filtered sulfur colloid), Administer 8mCi, IV, ONE TIME. Bone Scan Imaging (Whole Body, Limited, 3-Phase, or SPECT) At47w-UXW (Grsyxbbbqo04a-weihahwmw diphosphonate), Administer 25mCi, IV, ONE TIME. OR Oy99a-IZE (Ydrzdjykqy43j-slkunscpbsklvept diphosphonate), Administer 25mCi, IV, ONE TIME. Brain Imaging Mz08b-JDXE (Apkbqircpa52q-zukeblqfon-mgihjqis-vswxnofwbevt), Administer 20mCi, IV, ONE TIME. Brain SPECT Imaging Zc56m-OLHRK (Ceretec) (Hqfwjoehbj41b-bjrnoasdaqclsmbhavs amine oxime), Administer 20mCi, IV, ONE TIME. OR Tl-201 (Thallium Chloride-201), Administer 6mCi, IV, ONE TIME. C14 Urea Breath Test (PY Test) H19-Cirj (Carbon-14 Urea), Administer 1uCi capsule, Orally, ONE TIME. Cisternogram Imaging In-111 DTPA (Indium-111 aywfwazggd-jvpvbkuo-eukrywbcmhxh), Neuroradiologist toadminister 0.5mCi, Intrathecally, ONE TIME. Cystogram Imaging Tc-99m Pertechnetate (Hlzxypsczc50p-dimkwajpjpork) Administer 1mCi Jq31e-hrpcctbuegnck, intra-nieto catheter, ONE TIME AND Administer NS per calculated expected bladder volume, intra-nieto catheter, ONE TIME. DaTscan Imaging I-123 Ioflupane (Iodine-123 ioflupane), Administer 5mCi, IV, ONE TIME. AND Administer SSKI (Potassium Iodide) drops, 130mg, Orally, ONE TIME 30 minutes prior to radiopharmaceutical injection. Diverticulum/Meckel's Imaging Tc-99m Pertechnetate (Dntjqeqwrw93l- pertechnetate), Administer 15mCi,IV, ONE TIME. Esophageal Reflux Imaging Nf17j-Fbsvth Colloid (Kvndiqpsst13q-zhmoym colloid), Administer 1mCi in 1oz whole milk. Follow with additional 7oz whole milk, Orally, ONE TIME. Ga-67 Citrate - Planar Imaging Ga-67 Citrate (Gallium-67 Citrate), Administer 5mCi, IV, ONE TIME. Ga-67 Citrate - SPECT Imaging Ga-67 Citrate (Gallium-67 Citrate), Administer 10mCi, IV, ONE TIME. Gastric Empty Imaging - Liquid Meal Ay94t-WDHB (Gsxkdjcxdy36r-drhulohuui-mpcknqnr-xjnvwfdvdnk), Administer 1mCi in 300mL tap water, Orally, ONE TIME. Gastric Empty Imaging - Solid Meal Vf66j-Wbowja Colloid (Yqmmnacqki63y-vtpuuy colloid), Administer 0.5mCi in 4 oz egg beaters or in 1 package of cooked instant oatmeal or in 1 container cooked of Easy Mac 'n Cheese, Orally, ONE TIME. GI Bleed Imaging (GI Blood Loss) Tc-99m Pertechnetate (Vxbwjgpgmg09s- pertechnetate), Administer 25mCi heparinized RBCs, IV, ONE TIME. Hepatic Blood Pool Imaging Tc-99m Pertechnetate (Skkzcnzquj92v-cgziululltpbe), Administer 25mCi heparinized RBCs, IV, ONE TIME. Hepatic Hemangioma Imaging Tc-99m Pertechnetate (Jsmqaztjlt17e-fesvaphqnvbzv), Administer 25mCi heparinized RBCs, IV, ONE TIME. Hepatobiliary Scan Imaging Tc-99m Mebrofenin (Hhylmuhkct81y-ihsupssvjt), Administer 5 mCi IV, ONE TIME *For inpatients only, if bilirubin >5mg/dL, Administer 8 mCi IV, ONE TIME *For inpatients only, if bilirubin > 8mg/dL, consult nuclear medicine physician prior to administering radiopharmaceutical Hepatobiliary Scan with Ejection Fraction Imaging Tc-99m Mebrofenin (Jehrpsdxvc12r-qqdjckegqd), Administer 5 mCi IV, ONE TIME. *For inpatients only, if bilirubin >5mg/dL, Administer 8 mCi IV, ONE TIME *For inpatients only, if bilirubin > 8mg/dL, consult nuclear medicine physician prior to administering radiopharmaceutical AND For immediate use - Sincalide (Kinevac) 0.02 mcg/kg IV, ONE TIME, diluted with NS to a total infused volume of 30 mL. Infuse via an infusion device over 30 minutes. *If Sincalide unavailable, 240mL (8oz) Ensure Plus, Orally, ONE TIME. Hepatobiliary Scan with Pre-Treatment Imaging Tc-99m Mebrofenin (Nfusqsetbx84y-rcvqmqlaej), Administer 5 mCi IV, ONE TIME. *For inpatients only, if bilirubin >5mg/dL, Administer 8 mCi IV, ONE TIME *For inpatients only, if bilirubin > 8mg/dL, consult nuclear medicine physician prior to administering radiopharmaceutical AND For immediate use - Sincalide (Kinevac) 0.01 mcg/kg IV, ONE TIME, diluted with NS to a total infused volume of 5 mL, Infuse via hand push over 5 minutes. In-111 Dual Isotope Imaging In-111 Oxine (Indium-111 Oxine), Administer at least 300uCi, up to 600uCi, heparanized WBC, IV, ONETIME. AND Wy76x-KOL (Rlujfqlwoc78j-ckdikkqix diphosphonate), Administer 20mCi for BMI < 35; Administer 25 mCi for BMI >= 35, IV, ONE TIME. OR In-111 Oxine (Indium-111 Oxine), Administer at least 300uCi, up to 600uCi, heparanized WBC, IV, ONETIME. AND Ol64h-Wodkliaa Sulfur Colloid (Yehttpszzw59e-mjvqtbyx sulfur colloid), Administer 8mCi, IV, ONE TIME. In-111 WBC Imaging In-111 Oxine (Indium-111 Oxine), Administer at least 300uCi, up to 600uCi, heparanized WBC, IV, ONE TIME. Liver/Spleen Imaging Dg12a-Kmrdyf Colloid (Khzadhokse74j-omooge colloid), Administer 5mCi, IV, ONE TIME. Lung Xenon Perfusion Imaging (normal or quantitative) Tc-99m MAA (Xwaxycasqn64i- macroaggregated albumin), Administer 4mCi, IV, ONE TIME. Lung Xenon Ventilation Imaging (normal or quantitative) Xe-133 (Xenon-133), Administer at least 10 mCi, up to 30 mCi, Inhalation, ONE TIME. Lung Perfusion Imaging (normal or quantitative) Tc-99m MAA (Txpsfanbqg89t- macroaggregated albumin),Administer 4mCi, IV, ONE TIME. Lung Perfusion SPECT Imaging Tc-99m MAA (Lmdikxudtg52b-hthjapbfgehssqz albumin), Administer 4mCi, IV, ONE TIME Lung Perfusion Imaging - Patient (normal or quantitative) Tc-99m MAA (Ulngbcuqov22q-iywuxlpeizespnl albumin), Administer 2mCi, IV, ONE TIME. Lymphoscintigraphy - Breast Cancer, Next Day Surgery Cp23r-Jdtruetlrg (Rinktvrtrr71w-vskoxqchay), Administer 2mCi in 2 divided doses of 1mCi each, intradermal, ONE TIME. Lymphoscintigraphy - Breast Cancer, Same Day Surgery Lx22u-Eaqldrfaee (Ntcvnirzsh34h-rvzjrekwhe), Administer 0.5mCi in 2 divided doses of 250uCi each, intradermal, ONE TIME. Lymphoscintigraphy - Lymphedema Fv60z-Ycipvtxopb (Mwptkaiqyh68w-oxgnprqyim), For each extremity, administer 2mCi in 2 divided dosesof 1mCi each, subcutaneous, ONE TIME. Lymphoscintigraphy - Head & Neck Cancer, Next Day Surgery At31o-Putogvlejl (Ztrmxiclek35n-ftywecebcw), Administer 2mCi in 2 divided doses of 1mCi each, intradermal, ONE TIME. Lymphoscintigraphy - Head & Neck Cancer, Same Day Surgery Ea44t-Npfggerkgk (Avykyipaow53x-yakcolybhg), Administer 0.5mCi in 2 divided doses of 250uCi each, intradermal, ONE TIME. Lymphoscintigraphy - Skin Cancer, Next Day Surgery Bf45q-Pmwhcgntrg (Punljhwhih31g-btlngyijoc), Administer 2mCi in 4 divided doses of 0.5mCi each, intradermal, ONE TIME. Lymphoscintigraphy - Skin Cancer, Same Day Surgery Qc66l-Lsirlixawc (Jgqtreammv41q-jpfqzcjjdm), Administer 0.5mCi in 4 divided doses of 125uCi each, intradermal, ONE TIME. Lymphoscintigraphy - Skin Cancer, Small Body Area, Next Day Surgery Ij94z-Hedpexgmme (Tyurothevi70f-yxuwgitkcj), Administer 2mCi in 2 divided doses of 1mCi each, intradermal, ONE TIME. Lymphoscintigraphy - Skin Cancer, Small Body Area, Same Day Surgery Tc99m- Lymphoseek (Wpfpuoukfh64m-zvffnueadp), Administer 0.5mCi in 2 divided doses of 250uCi each, intradermal, ONE TIME. Lymphoscintigraphy - Vulvar Melanoma Next Day Surgery Nr19t-Jzoudiyzvf (Cgqiqprseg02n-adcrvsvlpr), Administer 2mCi in 1 dose, intradermal, ONE TIME. Lymphoscintigraphy - Vulvar Melanoma, Same Day Surgery La09v-Pnyvmjwsag (Vqfjeuzvsx55s-jiupmunyyj), Administer 0.5mCi in 1 dose, intradermal, ONE TIME. MIBG Imaging I-123 MIBG (Iodine-123 metaiodobenzylguandidine), Administer 10mCi, IV, ONE TIME. AND Administer SSKI (Potassium Iodide) drops, 130mg, Orally, ONE TIME 30 minutes prior to radiopharmaceutical injection. Microsphere Mapping (Y90 Mapping) Tc-99m MAA (Fniadgclsy52z-ziqjnqxbvxnpgrh albumin), Interventional Radiologist to administer (1) 2mCi in in 2mL NS, intra-arterial via catheter, ONE TIME. OR Tc-99m MAA (Nzudrndrtl44c-guyvkzxmgjpkngo albumin), Interventional Radiologist to administer (2) 2mCi in in 2mL NS, intra-arterial via catheter, ONE TIME. MUGA/RVG Imaging Tc-99m Pertechnetate (Nnetvzsfyd64w-fjxakmmuyvovo), Administer 25mCi heparinized RBCs, IV, ONE TIME. Myocardial Amyloid Scintigraphy (Hot PYP Scan) Zp17t-WFN (Torgmjsybv83c-yuppdugsacxlg), Administer 15mCi, IV, ONE TIME. OR Sl13-SFW (Jpzartimqz26r-vutxlsucuqfqsddm diphosphonate), Administer 15mCi, IV, ONE TIME. Myocardial Dual Isotope Imaging Tl-201 (Thallium Chloride-201) AND Xc93t-Guhcnlc (Ceeetmlkvn74n-nmpcdli), Administer 3mCi Tl-201forresting images, IV, ONE TIME AND Administer Br99m-Vqfvzwe (Vhsebgpgkn53h-hjjgqyj), for stress images based on patient's weight, IV, ONE TIME. Male or Female Patients: <180lbs: 12mCi Male or Female Patients: 181-240lbs: 15mCi Female Patients 241-265lbs: 18mCi Male Patients 241-330lbs: 18mCi Female Patients >265lbs: 24mCi Male Patients >330lbs: 24mCi Myocardial Planar Imaging (for patients >= table weight limit) Ad00w-Wavodsx (Ojqfxufrej92c-Vldxgal), Administer 30mCi, IV, ONE TIME for rest images, ONE TIME for stress images. Myocardial Rest Imaging - SPECT Imaging Tl-201 (Thallium Chloride-201), Administer 4mCi, IV, ONE TIME. OR Nv52g-Fpahmmc (Wtqsxmyjyj16b-Daavfzj), Administer 6mCi for female patients ?? 264 lb., IV, ONE TIME. OR Cj71f-Dlxgqdd (Tjxhvmhmdd83e-Suumljs), Administer 6mCi for male patients ?? 329 lb., IV, ONE TIME. OR Yb12d-Wmxbdkg (Xblejeeqtb12i-Wmbqeml), Administer 8mCi for female patients >= 265-399 lb., IV, ONE TIME. OR Wt57v-Rnbzhxg (Basxgyoexk29h-Orvwqbu), Administer 8mCi for male patients >= 330- 399 lb., IV, ONETIME. OR Mw01f-Qihbeia (Epbgikdkfs93p-Mshbpwq), Administer 10mCi for all patients >= 400- 500 lb., IV, ONETIME. Myocardial Stress - SPECT Imaging Se69j-Vwdmilo (Wljawchxbe24m-Bajxrmx), Administer 18mCi for female patients ?? 264 lb., IV, ONE TIME. OR Df23r-Ufvtxeg (Lbceiwbwgm25y-Vfmbpoa), Administer 18mCi for male patients ?? 329 lb., IV, ONE TIME. OR Wk61d-Nibinnc (Gtqrczfzvk04e-Wapbtmk), Administer 24mCi for female patients >= 265-399 lb., IV, ONE TIME. OR Vp14z-Rnklfnk (Viwzeoihfq71u-Vkauolk), Administer 24mCi for male patients >= 330-399 lb., IV, ONE TIME. OR Ab87i-Xzkxzqc (Onrymunbtn04u-Vbsqwnk), Administer 30mCi for all patients >= 400- 500 lb., IV, ONETIME. Myocardial Viability Imaging Tl-201 (Thallium Chloride-201), Administer 2.5mCi, IV, ONE TIME. Note: If patient >=250 lbs, TI-201 (Thallium Chloride-201), Administer 3.5mCi, IV, ONE TIME. Octreoscan In-111 Pentetreotide (Indium-111 Pentetreotide), Administer 6mCi, IV, ONE TIME. Parathyroid Imaging Hc80o-Vrjcbincj (Vgcyhwxydz38l-imjpiudhj), Administer 20mCi, IV, ONE TIME. Peritoneal Cavity Scintigraphy Zw48d-Zfcsvi Colloid (Quktqsvuua75y-qpuecr colloid), Administer 2mCiin 3mL NS, via peritoneal dialysis, ONE TIME. Peritoneovenous Shunt Scintigraphy Tc-99m MAA (Rgdfqwkxrv54t-ncoscsmwxzhtrgn albumin), Physician toadminister 5mCi in 3mL NS, Intraperitoneal, ONE TIME. PET/CT Axumin F-18 Axumin (Ssysmvfp43-ahgrusvlcqvu), Administer 10mCi, IV, ONE TIME. PET/CT Brain Imaging (Amyvid) F18- florbetapir [Amyvid??, (E)-4-(2-(6-(2-(2-(2[F-18]- (fluoroethoxy)ethoxy)ethoxy)zpoqhtbi-4-qt)vinyl)-N-methylbenzamine], Administer 10mCi, IV, ONE TIME. PET/CT Brain Imaging (FDG) F18-FDG (Gbkqvgeu58-qnzvutcdjcomyblzcv), Administer 10mCi, IV, ONE TIME. PET/CT Dotatate Imaging Ga-68 Dotatate (Gallium-68 Dotatate), Administer 5.4mCi, IV, ONE TIME. PET/CT Dotatate Imaging Cu-64 Detectnet (Copper-64 Dotatate), Administer 4mCi, IV, ONE TIME. PET/CT Myocardial Scan (Sarcoidosis or Viability) F18-FDG (Oxyswyev15- fluorodeoxyglucose), Administer 0.11mCi/kg with at least 8mCi, up to 17mCi, IV, ONE TIME. PET/CT Limited, Standard, or Whole-Body Oncology Imaging F18-FDG (Uxhwxtsb94-oqzyuwgtzuuzeqhtpj), Administer 0.11mCi/kg, with at least 8mCi, up to 17mCi, IV, ONE TIME. PET/CT Pylarify Imaging O12-Kxilhwux (Nkllhxoa01-Omcxokzufozom), Administer 9mCi, IV, ONE TIME. Pluvicto Therapy Zari-177 (Lutetium-177 vipivotide tetraxetan), Administer per Written Directive, IV,ONE TIME. Renal Scintigraphy ([employer]-Inhibitor Renal Scan) Jh94g-KYJ3 (Haylayybdx29j- mercaptoacetyltriglcine), Administer 5mCi, IV, ONE TIME. AND Administer Enalaprilat (Vasotec) 2.5mg, IV, ONE TIME. Dilute to 5mL total volume with normal salineand infuse via hand push injection over 5 minutes. OR Administer Captopril, 50mg capsule crushed and dissolved in 150mL tap water, Orally, ONE TIME. Renal Scintigraphy (Cortical Imaging) Mr76h-NEBE (Qdzmwkqzmv83l- dimercaptosuccinic acid), Administer 5mCi, IV, ONE TIME. Renal Scintigraphy (Diuretic Renal Scan) Qc65s-SQOU (Kgjhileijv44g-buwnqhejwg-gwhttmfi-jwxwxhddhatp), Administer 5mCi, IV, ONE TIME. AND Administer Lasix (furosemide) 40mg, IV push over 2 minutes, ONE TIME. OR Ht28y-XSJ4 (Gdgksqqcyx97d-ketrbkvqebjgqcyralsudzb), Administer 5mCi, IV, ONE TIME. AND Administer Lasix (furosemide), 40mg, IV push over 2 minutes, ONE TIME. Renal Scintigraphy (Flow and Function Scan) Rp92v-YEIT (Uyudpdzmyj14m-xgaggfquxl-yaovbhsw-cligrannemoz), Administer 5mCi, IV, ONE TIME. OR Wo59k-THY2 (Ksqccowamp20p-kbsxlqmyrtnxwjtpgqomcgd), Administer 5mCi, IV, ONE TIME. Renal Scintigraphy (Renal Transplant Scan) Jf53k-HIVY (Nsrwlstiiy38z-rpzxdczzto-gdraszgb-xlwjkrevibyg), Administer 5mCi, IV, ONE TIME. OR Kq56h-OZY0 (Lwrcyjxkhv11i-rkgzmzsqnnzyjsohbrwuopl), Administer 5mCi, IV, ONE TIME. Salivary Imaging Tc-99m Pertechnetate (Kxymeuxegc26j-iqipzkleyedmg), Administer 5mCi, Orally, ONE TIME. Shunt Patency Imaging (CSF Shunt Imaging) Wn76h-LBOS (Zpzfwlsyuq84p-wnumjqhqsw-wnkdeock-vdsdocyrvfzc), Neurosurgeon or neurosurgeon's PA to administer 0.5mCi, intra-shunt reservoir, ONE TIME. Splenic Imaging Tc-99m Pertechnetate (Flujckbqdl72f-ltwhmskkfqgla), Administer 6mCi heparinized, heat damaged RBCs, IV, ONE TIME. Gt42y-GNE Imaging Sx51o-Iabdomy (Ippijwmwdu15u-Gtggkur), Administer 15mCi heparinized WBC, IV, ONE TIME. Thyrogen Injection Thyrogen (thyrotopin ezra), Administer 0.9mg, deep IM, every 24 hours for 2 doses. Thyroid Imaging Tc-99m Pertechnetate (Caethenfbm41g-uzngckpnxiekb), Administer 10mCi, IV, ONE TIME. OR I-123 Na Iodide (Iodide-123 Na Iodide), Administer 200 uCi capsule, Orally, ONE TIME. Thyroid Scan & Uptake I-123 Na Iodide (Iodide-123 Na Iodide), Administer 220 uCi capsule, Orally, ONE TIME. Thyroid Uptake I-123 Na Iodide (Iodide-123 Na Iodide), Administer 220 uCi capsule, Orally, ONE TIME. OR I-131 Na Iodide (Iodide-131 Na Iodide), Administer at least 5 uCi, up to 25 uCi, Orally, ONE TIME. Whole Body I-123 Imaging I-123 Na Iodide (Iodide-123 Na Iodide), Administer 2.5 mCi capsule, Orally, ONE TIME. Whole Body I-131 Imaging Diagnostic: I-131 Na Iodide (Iodide-131 Na Iodide), Administer 3 mCi capsule or solution, Orally, ONE TIME. Therapeutic: Administer per Written Directive Xofigo Treatment Ra-223 dichloride, Administer 1.49 mCi/kg per Written Directive, IV, ONE TIME. Y90 Microsphere Treatment Y-90 SirSpheres (Yittrium-90 microspheres), Administer per Written Directive, Intra-Arterial, ONE TIME. Pediatric Procedures & Dosages: Note: Radiopharmaceuticals dosages with a range are determined by professor of forest planning calibration Note: In acute Tc99m shortages, radiopharmaceutical dosages may be decreased with approval and documentation within department from medical examiner/AU. Note: Hybrid SPECT/CT imaging used as appropriate for exam and/or as directed by Radiologist PROCEDURE DOSAGE Bone Marrow Imaging Ss88u-Mmhosqqh Sulfur Colloid (Gyavvueiwa99f-qscaffkj sulfur colloid), Administer 0.14mCi/kg with at least 1mCi, up to 8mCi, IV, ONE TIME. Bone Scan Imaging (Whole Body, Limited, 3-Phase, or SPECT) Ip04e-GZA (Zzvzhnapqb76h-qpnyrygbc diphosphonate), Administer 0.25mCi/kg with at least 1mCi, up to 25mCi, IV, ONE TIME. OR Gv31e-OBK (Bzgmqwoqri36y-ljhahnukvawgzhwg diphosphonate), Administer 0.25mCi/kg with at least 1mCi,up to 25mCi, IV, ONE TIME Brain Imaging Mg52j-HGNM (Fdpcsuounc74f-sxjgsephwj-tpguleso-emstpiruzfci), Administer 0.3mCi/kg with at least 5mCi, up to 20mCi, IV, ONE TIME. Brain SPECT Imaging Fh86n-FLAJN (Ceretec) (Pxdygtkyah81p-swrjiaadmguxrxyjboq amine oxime), Administer 0.3mCi/kg with atleast 3mCi, up to 20mCi, IV, ONE TIME. C14 Urea Breath Test (PY Test) Y70-Mvmt (Carbon-14 Urea), Administer 1uCi capsule, Orally, ONE TIME. Cisternogram Imaging In-111 DTPA (Indium-111 puoyyhllmg-pamoiocd-bekmbwjtdruz), Neuroradiologist to administer 0.07mCi/kg with at least 0.1mCi, up to 0.5mCi, Intrathecally, ONE TIME. Cystogram Imaging Tc-99m Pertechnetate (Zbxztgcqmb51g-qojmvmlakyepo) Administer 1mCi, intra-nieto catheter, ONE TIME AND Administer NS per calculated expected bladder volume, intra-nieto catheter, ONE TIME. Diverticulum/Meckel's Imaging Tc-99m Pertechnetate (Xoxwzzcsxq20x-wiahjhjindxns), Administer 0.05mCi/kg with at least 0.25mCi, upto 15mCi, IV, ONE TIME. Esophageal Reflux Imaging - <1yoa Yu06h-Vjareu Colloid (Vvlzqssclq49i-kjbbmk colloid), Administer 0.1mCi for patients <3.5lb., Orally, ONE TIME. OR Administer 0.2mCi for patients 3.5-6.5lb., Orally, ONE TIME. OR Administer 0.3mCi for patients >6.5lb., Orally, ONE TIME. *For all administrations, determine amount of formula or breast milk patient consumes in 1 hour by dividing their normal feed amount by 4. Then, take this calculated amount and divide into 2 so that you can tag ?? with the radiopharmaceutical and feed the remaining ?? 'cold'; feed the infant radioac tive labeled formula/milk and then 'cold' formula/milk over a 10-minute total period of time. Esophageal Reflux Imaging - >1yoa Xr09i-Rwhmvy Colloid (Mnwamgjdig37t-qzbrws colloid), Administer 0.5mCi in 1 oz whole milk, Orally, ONE TIME. Follow with 7 oz whole milk. Ga-67 Citrate - Planar Imaging Ga-67 Citrate (Gallium-67 Citrate), Administer 0.07mCi/kg with at least 0.5mCi, up to 5mCi, IV, ONETIME. Ga-67 Citrate - SPECT Imaging Ga-67 Citrate (Gallium-67 Citrate), Administer 0.14mCi/kg with at least 1mCi, up to 10mCi, IV, ONE TIME. Gastric Empty Imaging - Liquid Meal Xd37b-Zotcrm Colloid (Yeqlfbnvky26p-fzgzlc colloid), Administer7 uCi/kg with at least 250uCi, up to 500uCi, Orally, ONE TIME. *For all administrations, determine amount of formula or breast milk patient consumes in 1 hour by dividing their normal feed amount by 4. Then, take this calculated amount and divide into 2 so that you can tag ?? with the radiopharmaceutical and feed the remaining ?? 'cold'; feed the radioac tive labeled formula/milk and then 'cold' formula/milk over a 10-minute total period of time.OR Lw65n-EEZP (Uajtuskvhr99g-cqapkrznse-ddavchyn-oxgelaqveig), Administer 1mCi in 300mL tap water, Orally, ONE TIME. *Follow Al63o-AXRB dosing if the pediatric patient is not an infant and consumes water. Gastric Empty Imaging - Solid Meal Yj59a-Dnsnmo Colloid (Npaathfxig66a-iktraw colloid), Administer 7uCi/kg with at least 250uCi, up to 500uCi in 4 oz eggbeaters or in 1 package of cooked instant oatmeal, or in 1 container cooked of Easy Mac 'n Cheese, Orally, ONE TIME. GI Bleed Imaging (GI Blood Loss) Tc-99m Pertechnetate (Vkcxnssgvc33r- pertechnetate), Administer 0.32mCi heparinized RBCs with at least 2mCi, up to 25mCi, IV, ONE TIME. Hepatic Blood Pool Imaging Tc-99m Pertechnetate (Pwrllalirw54e-fruwjalznmodm), Administer 0.32mCi heparinized RBCs with at least 2mCi, up to 25mCi, IV, ONE TIME. Hepatic Hemangioma Imaging Tc-99m Pertechnetate (Hoxaqcghwm03k-rcbpjigqymydx), Administer 0.32mCi heparinized RBCs with at least 2mCi, up to 25mCi, IV, ONE TIME. Hepatobiliary Scan Imaging Tc-99m Mebrofenin (Fokigsaqwl20f-vssmxpvbov), Administer 0.05mCi/kg withat least 0.5mCi, up to 5mCi, IV, ONE TIME *For inpatients only, if bilirubin >5mg/dL, Administer 0.08mCi/kg with at least 1mCi, up to 8mCi, IV, ONE TIME *For inpatients only, if bilirubin > 8mg/dL, consult nuclear medicine physician prior to administering radiopharmaceutical Hepatobiliary Scan Imaging for in Jaundice Tc-99m Mebrofenin (Ndzqqxeqfi22w-rliycjhjww), Administer 0.08mCi/kg with at least 1mCi, up to 8mCi, IV, ONE TIME AND Administer Phenobarbital 5mg/kg/day (may be administered in 2 divided doses) for 3 days prior to imaging, IV, ONE TIME PER DAY. Hepatobiliary Scan with Ejection Fraction Imaging Tc-99m Mebrofenin (Jarjiuylqj02z-yafaockjqx), Administer 0.05mCi/kg with a at least 0.5mCi, up to 5mCi IV, ONE TIME *For inpatients only, if bilirubin >5mg/dL, Administer 0.08mCi/kg with at least 1mCi, up to 8mCi, IV, ONE TIME *For inpatients only, if bilirubin > 8mg/dL, consult nuclear medicine physician prior to administering radiopharmaceutical AND For immediate use - Sincalide (Kinevac) 0.02 mcg/kg IV, ONE TIME, diluted with NS to a total infused volume of 30 mLs. Infuse via an infusion device over 30 minutes. *If Sincalide unavailable, 3.5ml/kg, up to 240mL (8oz) Ensure Plus, Orally, ONE TIME. Hepatobiliary Scan with Pre-Treatment Imaging Tc-99m Mebrofenin (Krvsgmlamp62a- mebrofenin), Administer 0.05mCi/kg with a at least 0.5mCi, up to 5mCi IV, ONE TIME *For inpatients only, if bilirubin >5mg/dL, Administer 0.08mCi/kg with at least 1mCi, up to 8mCi, IV, ONE TIME *For inpatients only, if bilirubin > 8mg/dL, consult nuclear medicine physician prior to administering radiopharmaceutical AND For immediate use - Sincalide (Kinevac) 0.01 mcg/kg IV, ONE TIME, diluted with NS to a total infused volume of 5 mL, Infuse via hand push over 5 minutes. In-111 Dual Isotope Imaging In-111 Oxine (Indium-111 Oxine), Administer 5uCi/kg with at least 300uCi, up to 500uCi, heparanized WBC, IV, ONE TIME. AND Za41i-DJP (Tmsfuklslc21i-hgwahqofw diphosphonate), Administer 0.25mCi/kg with at least 1mCi, up to 20mCi, IV, ONE TIME. OR In-111 Oxine (Indium-111 Oxine), Administer 5uCi/kg with at least 300uCi, up to 500uCi, heparanizedWBC, IV, ONE TIME. AND Qq67q-Sjvjhyxt Sulfur Colloid (Mhtoyuetgi22m-ardomerg sulfur colloid), Administer 0.14mCi/kg with at least 1mCi, up to 8mCi, IV, ONE TIME. In-111 WBC Imaging In-111 Oxine (Indium-111 Oxine), Administer 5uCi/kg with at least 300uCi, up to 500uCi, heparanized WBC, IV, ONE TIME. Liver/Spleen Imaging Rr20u-Nzziir Colloid (Yeexickmrr03i-eqcpgl colloid), Administer 0.05mCi/kg with at least 0.5mCi, up to 5mCi, IV, ONE TIME. Lung Xenon Perfusion Imaging (normal or quantitative) Tc-99m MAA (Knqkxdwpbo50z-giwfytnkqnwikyl albumin), Administer 0.03mCi/kg, with at least 0.4mCi, upto 4mCi IV, ONE TIME. Lung Xenon Ventilation Imaging (normal or quantitative) Xe-133 (Xenon-133), Administer 10 mCi, inhalation, ONE TIME. Lung Perfusion Imaging (normal or quantitative) Tc-99m MAA (Kkbmwvdgxq76l-jdtgsuqozsyuzzh albumin), Administer 0.03mCi/kg, with at least 0.4mCi, upto 4mCi IV, ONE TIME. Lung Perfusion Imaging - Patient (normal or quantitative) Tc-99m MAA (Dhhhkzkzjv32k-yqdrfgbinixoskz albumin), Administer 0.03mCi/kg, with at least 0.4mCi, upto 2mCi IV, ONE TIME. MIBG Imaging I-123 MIBG (Iodine-123 metaiodobenzylguandidine), Administer 0.14mCi/kg with at least 1mCi, up to 10mCi, IV, ONE TIME AND Administer SSKI (Potassium Iodide) drops 30 minutes prior to radiopharmaceutical injection. * to 1 month: 16mg, Orally, ONE TIME. * 1 month to 3 years of age: 32mg, Orally, ONE TIME. * Greater than 3 years to 17 years of age: 65mg, Orally, ONE TIME. MUGA/RVG Imaging Tc-99m Pertechnetate (Erdpadiccf27z-htrueyehzohhr), Administer 0.32mCi/kg heparinized RBCs with at least 2mCi, up to 25mCi, IV, ONE TIME. Myocardial Amyloid Scintigraphy (Hot PYP Scan) Yq12t-EUP (Tyotjijcyc24u- pyrophosphate), Administer 0.28mCi/kg, with at least 2.5mCi, up to 15mCi IV, ONE TIME. Myocardial Rest Imaging - SPECT Imaging Ys67h-Okxurob (Xkccfdgmgw83l-Hmxothp), Administer 0.15mCi/kg, with at least 2mCi, up to 8mCi IV, ONE TIME. Myocardial Stress Imaging - SPECT Imaging Oj21e-Ntfvrkv (Fxzncxrklm99q-Utafagx), Administer 0.45mCi/kg, with at least 6mCi, up to 24mCi IV, ONE TIME. Octreoscan In-111 Pentetreotide (Indium-111 Pentetreotide), Administer 0.08mCi/kg with at least 1mCi, up to 6mCi, IV, ONE TIME. Parathyroid Imaging Bo02i-Atxkhsoig (Alxgvahxuw54q-bsuwyuujc), Administer 0.25mCi/kg, with at least 2mCi, up to 20mCi IV, ONE TIME. Peritoneal Cavity Scintigraphy Ar71o-Gnafjw Colloid (Fiiaiublbp06d-bmnijj colloid), Administer 0.07mCi/kg in 2mL NS with at least 1mCi, up to 2mCi, via peritoneal dialysis, ONE TIME. Peritoneovenous Shunt Scintigraphy Tc-99m MAA (Clnyxehoev35j-jcwclotbpualkcj albumin), Physician to administer 0.07mCi/kg with at least 1mCi, up to 5mCi in 2mL NS, Intraperitoneal, ONE TIME. PET/CT Brain Imaging (FDG) F18-FDG (Lzifmedk24-umwimrsconrxpmbotv), Administer 0.10mCi/kg with at least 2mCi, up to 10mCi, IV,ONE TIME. PET/CT Limited, Standard, or Whole-Body Oncology Imaging F18-FDG (Mghsvsag45-cqgwmlwqgelvbljctr), Administer 0.11mCi/kg with at least 2mCi, up to 10mCi, IV,ONE TIME. PET/CT Dotatate Imaging Ga-68 Dotatate (Gallium-68 Dotatate), Administer 0.054mCi/kg up to 5.4mCi, IV, ONE TIME. (Minimum dose determined by AU). Renal Scintigraphy (CISCO-Inhibitor Renal Scan) Dj65v-FCJ1 (Tovfxaonul83c-ceekrmvacvwxlflfndcezkr), Administer 0.1mCi/kg with at least 1mCi, up to 5mCi, IV, ONE TIME. AND Administer Enalaprilat (Vasotec) 0.04mg/kg with a maximum dose of 2.5mg, IV, ONE TIME. Dilute to 5mL total volume with normal saline and infuse via hand push over 5 minutes. Renal Scintigraphy (Cortical Imaging) Rd73f-FUFC (Tcqvukghds79s-jpcwjwbpotpstvbenn acid), Administer 0.05mCi/kg with at least 0.5mCi, up to 5mCi, IV, ONE TIME. Renal Scintigraphy (Diuretic Renal Scan) Hj38h-AHVY (Syxchbiowm69b-vvecudknnd-pqbtqmly-ntzpiygnwysz), Administer 0.2mCi/kg with at least 2mCi, up to 5mCi, IV, ONE TIME. AND Administer Lasix (furosemide), 1mg/kg, up to 40mg, IV push over 2 minutes, ONE TIME. A reduced dosage of 0.5mg/kg may be used per direction of nuclear medicine physician. OR Go05h-LEE3 (Ukwfitsoei21u-icuyfqeewvailcsnvadpohz), Administer 0.1mCi/kg with at least 1mCi, up to 5mCi, IV, ONE TIME. AND Administer Lasix (furosemide), 1mg/kg, up to 40mg, IV push over 2 minutes, ONE TIME. A reduced dosage of 0.5mg/kg may be used per direction of the nuclear medicine physician. Renal Scintigraphy (Flow and Function Scan) Hf64n-MIDQ (Mspnkkrclp19k-jbpftarkke-nwyfvxxn-bzqychtoxakj), Administer 0.2mCi/kg with at least 2mCi, up to 5mCi OR Kk91j-ELQ2 (Ylztiopcjx44w-xiugugsqkuygftjyhpnlonr), Administer 0.1mCi/kg with at least 1mCi, up to 5mCi, IV, ONE TIME. Renal Scintigraphy (Renal Transplant Scan) Hq61c-DADW (Zlyttsnqft77x-ypamupyaup-sstqelyr-kmhonqgxmqou), Administer 0.2mCi/kg with at least 2mCi, up to 5mCi OR Za91s-UPA8 (Xcpkufcpyz87x-ltjsepogkzvcmdxezxexbrt), Administer 0.1mCi/kg with at least 1mCi, up to 5mCi, IV, ONE TIME. Salivary Imaging Tc-99m Pertechnetate (Kzduvxetnw96m-frvoupizlpfld), Administer 0.05mCi/kg with at least 0.25mCi, up to 5mCi, Orally, ONE TIME. Shunt Patency Imaging (CSF Shunt Imaging) Ag38t-OYNK (Qjinztcnvu80w-linecspaxn-jpfzsfzm-rpkbjmlzwlrr), Neurosurgeon or neurosurgeon's PA to administer 0.01mCi/kg with at least 0.4mCi, up to 0.5mCi, intra-shunt reservoir, ONE TIME. Splenic Imaging Tc-99m Pertechnetate (Yifrecnmzr89w-cmlpwpagjdsel), Administer 0.03mCi/kg with at least 0.5mCi, up to 6mCi heparinized, heat damaged RBCs, IV, ONE TIME. Oo81y-NQN Imaging Ob37j-Syuwkqg (Bqaklqeezz20n-Gpqkdzt), Administer 0.2mCi/kg with at least 2mCi, up to 15mCi, heparinized WBC, IV, ONE TIME. Thyroid Imaging Tc-99m Pertechnetate (Uygsmrfxmj73u-yjzvzyqciggab), Administer 0.07mCi/kg with at least 1mCi, up to 10mCi, IV, ONE TIME. Thyroid Scan & Uptake I-123 Na Iodide (Iodide-123 Na Iodide), 110uCi, Orally, ONE TIME. Thyroid Uptake I-123 Na Iodide (Iodide-123 Na Iodide), Administer dosage per treating AU & fillout special prescription form, Orally, ONE TIME. OR I-131 Na Iodide (Iodide-131 Na Iodide), Administer dosage per treating AU & fill out special prescription form, Orally, ONE TIME. Whole Body I-131 Imaging Diagnostic: I-131 Na Iodide (Iodide-131 Na Iodide), Administer 0.07uCi/kg, up to 3mCi capsule or solution (minimum dose per treating AU), Orally, ONE TIME. Therapeutic: Administer per Written Directive * Result Encounter Note - Aviva Humphries MD - 05/31/2024 11:15 AM CDT Please let Narda know that I have reviewed her PETCT scan. The findings in the lungs remain inconclusive at this time. I suggest we continue on our current maintenance plan and repeat PETCT in 3 months. We can repeat sooner if there are any new or worsening symptoms present. documented in this encounter Plan of Treatment Upcoming Encounters Date Type Department Care Team (Late st Contact Info) Description 08/04/2024 1:00 PM CONTINUOUS CHURN BUTTERMAKER Appointment [facility]fusion [facility] 2nd Fl [address] [place] [phone] Aviva Humphries MD [address] [address] [facility] [place] [address] Infusion Chair 5, 2nd Floor Hall 08/25/2024 1:00 PM CONTINUOUS CHURN BUTTERMAKER Office Visit [facility]nec[facility] Hall [address] [place] [phone] Edilia Pettit NP [address] [place] [address] 08/25/2024 1:30 PM CONTINUOUS CHURN BUTTERMAKER Appointment [facility] Infusion Center 2nd Fl [address] [place] [address] Aviva Humphries MD [address] [place] [address] Infusion Chair 1, 2nd Floor [place] 09/01/2024 10:45 AM CONTINUOUS CHURN BUTTERMAKER Appointment [facility] [address] [place] [address] [phone] Edilia Pettit, CHELY [address] [place] [address] documented as of this encounter Procedures Procedure Name Priority Date/Time Associated Diagnosis Comments PET TUMOR OR INFECTION IMG W CT SKB MDTH Routine 05/31/2024 11:44 AM CDT Malignant neoplasm of ovary, unspecified laterality Pulmonary nodule documented in this encounter Results * PET TUMOR IMG W CT SKB [...] pelvic recurrence. DICTATION LOCATION: Location 1 - [facility] Narrative 05/31/2024 1:47 PM CDT PET/CT IMAGING [...] pelvic recurrence. DICTATION LOCATION: Location 1 - [facility] Aviva Humphries MD PE ORDERABLES documented in this encounter Visit Diagnoses Diagnosis Malignant neoplasm of ovary, unspecified laterality Pulmonary nodule Solitary pulmonary nodule documented in this encounter Administered Medications Inactive Administered Medications - up to 3 most recent administrations Medication Order MAR Action Action Date Dose Rate Site sodium chloride flush injection 10 mL 10 mL, IV, ONE TIME ONLY, 1 dose, On 05/31/24 at 1100, Routine Given 05/31/2024 11:00 AM CDT 10 mL documented in this encounter Care Teams Academic Advisor Relationship Specialty Start Date End Date Shilo Soares MD [address] [place] [phone] PCP - General Internal Medicine 04/24/23 documented as of this encounter
--- OUTSIDE RECORDS SUMMARY | 2024-07-26 23:44 | XMS_ITS | Encounter Summary ---
Author Organization [facility] Address [address] [place] [address] Care Team Providers Care Laborer Hoisting Name Role Phone Shilo Soares MD Primary Care Provider [phone] Encounter Details Date Type Department Care Team (Late Contact Info) Description 05/10/2024 External Device Data ST[facility] ABSTRACTION Provider, [...] (Late Contact Info) Description 08/04/2024 1:00 PM WIRELESS SALES ASSOCIATE Appointment [facility] 2nd Mi [address] [place] [address] Aviva Humphries MD [address] [place] [address] Infusion Chair 5, 2nd Floor Hall 08/25/2024 1:00 PM WIRELESS SALES ASSOCIATE Office Visit [facility] Gynecologic Oncology Hall [address] [place] [address] Edilia Pettit, CHELY [address] [place] [phone] 08/25/2024 1:30 PM WIRELESS SALES ASSOCIATE Appointment [facility] 2nd Fl [address] [place] [address] Aviva Humphries MD [address] [place] [address] Infusion Chair 1, 2nd Floor [place] 09/01/2024 10:45 AM WIRELESS SALES ASSOCIATE Appointment [facility] Nuclear Medicine [address] [place] [phone] Edilia Pettit, CHELY [address] [facility] [address] [place] [address] documented as of this encounter Visit Diagnoses Not on filedocumented in this encounter Care Teams Laborer Hoisting Relationship Specialty Start Date End Date Shilo Soares MD [address] [place] [phone] PCP - General Internal Medicine 04/24/23 documented as of this encounter
--- OUTSIDE RECORDS SUMMARY | 2024-07-26 23:44 | XMS_ITS | Encounter Summary ---
Author Organization [email or web address] Address [address] [place] [address] Care Team Providers Care Music Video Director Name Role Phone Shilo Soares MD Primary Care Provider [phone] Reason for Visit * Tx/Med Therapy Plan Auth (Routine) - Authorized Specialty Diagnoses / Procedures Referred By Alison gomez Referred To Contact Diagnoses Malignant neoplasm of ovary, unspecified laterality Encounter for antineoplastic chemotherapy Nausea Procedures NE PACLITAXEL INJECTION NE CARBOPLATIN INJECTION NE INJ MVASI 10 MG NE FOSAPREPITANT INJECTION NE PALONOSETRON HCL NE DEXAMETHASONE SODIUM PHOS NE METHYLPREDNISOLONE INJECTION NE DIPHENHYDRAMINE HCL INJECTIO NE INJECTION, FAMOTIDINE, 20 MG TAXOL, CARBO, MVASI, EMEND, ALOXI, DECADRON, SOLU MEDROL, BENADRYL, PEPCID Aviva Humphries MD [address] [facility] [address] [place] [address] [facility] 2nd Floor [place] [address] [place] [address] Referral ID Status Reason Start Date Expiration Date V isits Requested Visits Authorized [id number] Authorized 05/20/2023 05/26/2025 99 99 Encounter Details Date Type Department Care Team (Latest Contact Info) Description 06/02/2024 11:42 AM CDT - 06/02/2024 11:59 PM CDT Hospital Encounter Randy Hall Cancer [facility] Infusion Center 2nd Fl [address] [place] [address] Aviva Humphries MD [address] [facility] [address] [place] [address] Infusion Chair 4, 2nd Floor Hall Discharge [...] Sign Reading Time Taken Comments Blood Pressure 145/77 06/02/2024 3:46 PM CDT Pulse 81 06/02/2024 3:46 PM CDT Temperature 36.7 ??C (98 ??F) 06/02/2024 3:46 PM CDT Respiratory Rate 18 06/02/2024 3:46 PM CDT Oxygen Saturation - - Inhaled [...] bedtime. 02/26/2021 fluticasone propionate (FLONASE) 50 mcg/spray [place], Suspension nasal inhaler Administer 2 Sprays in [...] as of this encounter Progress Notes * Ibeth Reyes, JANET - 06/02/2024 12:00 PM CDT Pt admitted to [facility] for treatment. Labs reviewed per 2 licensed providers and okay to treat per parameters. Prior to chemotherapy administration: reviewed with pt the goal of chemotherapy regimen, the method of administration, and potential side effects. Mvasi administered via port without adverse effects. Good blood return obtained from port. Instructed pt to notify physician or go toED if fever 100.5 F or higher, chills, or any change in condition. Pt verbalized understanding. Discharged home. Narda Mayen admitted to [facility] for blood transfusion. Narda Eileen Tiarra tolerated without side effects/transfusion reaction. Prior to transfusion, importance of blood product and side effects discussed with patient/family and consent obtained. Instructed patient/family to notify kaleigh [email or web address] or report to ED if temperature 100.5 or higher, difficulty breathing, signs/symptoms of allergic reaction or any change in condition. Written instructions concerning possible adverse events provided. Patient/family verbalized understanding. Discharged home. Next infusion scheduled for 06/23 documented in this encounter Plan of Treatment Upcoming Encounters Date Type Department Care Team (Late st Contact Info) Description 08/04/2024 1:00 PM INBOUND SALES ADVISOR Appointment Randy [facility] Infusion Center [facility] [address] [place] [address] Aviva Humphries MD [address] [facility] [address] [place] [phone] Infusion Chair 5, 2nd Floor [place] 08/25/2024 1:00 PM INBOUND SALES ADVISOR Office Visit [facility] Gynecologic Oncology [place] [address] [facility] [address] [place] [address] Edilia Pettit NP [address] [facility] [address] [place] [phone] 08/25/2024 1:30 PM INBOUND SALES ADVISOR Appointment Randy [facility] Infusion Center [facility] [address] [place] [address] Aviva Humphries MD [address] [place] [phone] Infusion Chair 1, 2nd Floor [place] 09/01/2024 10:45 AM INBOUND SALES ADVISOR Appointment Randy [facility] Nuclear Medicine [address] [place] [address] [phone] Edilia Pettit NP [address] [facility] [address] [place] [phone] documented as of this encounter Procedures Procedure Name Priority Date/Time Associated Diagnosis Comments TRANSFUSE PACKED RED BLOOD CELLS Routine 06/02/2024 2:00 PM CDT PREPARE RED BLOOD CELLS Stat 06/02/2024 12:12 PM CDT Malignant neoplasm of ovary, unspecified laterality TYPE AND SCREEN Stat 06/02/2024 12:08 PM CDT Symptomatic anemia documented in this encounter Results * TRANSFUSE RED BLOOD CELLS (06/02/2024 4:02 PM CDT) Aviva Humphries MD BLOOD TRANSFUSION OR DERABLES * TRANSFUSE RED BLOOD CELLS (06/02/2024 4:02 PM CDT) Aviva Humphries MD BLOOD TRANSFUSION OR DERABLES * PREPARE RED BLOOD CELLS (06/02/2024 12:12 PM CDT) COMPONENT TYPE [id number] [facility] -- [facility] COMPONENT IDENTIFICATION [id number] [facility] -- .[facility] UNIT ABO A [facility] -- [facility] RH POS [facility] -- [facility] CROSSMATCH Compatible [facility] -- .[facility] COMPONENT STATUS Transfused [facility] LABORATORY SERVICES -- .[place] COMPONENT EXPIRATION DATE/TIME [id number] [facility] -- [facility] COMPONENT CODING SYSTEM 6200 [facility] -- [facility] VOLUME, BLOOD PRODUCT 350 [facility] -- [facility] Other, specify 06/02/2024 12 :12 PM CDT Aviva Humphries MD LAB TRANSFUSION JASVIR [facility] Organization Address City/State/ZIP Co de Phone Number [facility] -- [facility] CLIA# [id number] 5 [facility] [place] [address] * TYPE AND SCREEN (06/02/2024 12:08 PM CDT) ABO GROUP A 06/02/2024 1:29 PM CDT [facility] -- [facility] RH (D) TYPE Positive 06/02/2024 1:29 PM CDT [facility] -- .[place] ANTIBODY SCREEN Negative 06/02/2024 1:29 PM CDT [facility] -- .[place] Blood Collection / Unknown 06/02/2024 12:08 PM CDT 06/02/2024 12:17 PM CDT Terra Eldridge PA-C BLOOD BANK OR DERABLES Performing Organization Address City/[facility] Co de Phone Number [facility] -- [facility] CLIA# [id number] 5 [facility] GEETHALUCILE [facility] [place] [address] * CANCER ANTIGEN 125 (06/02/2024 10:33 AM CDT) Pathologist [facility] CA 125 6 <35 U/mL [facility] Comment: This test was performed using the Siemens Chemiluminescent method. Values obtained from different assay methods cannot be used interchangeably. CA 125 levels, regardless of value, should not be interpreted as absolute evidence of the presence or absence of disease. Test Performed at: [facility] [address] [place], [place] ??[phone] Radha Perez MD Blood 06/02/2024 10:3 3 AM CDT 06/02/2024 10:50 AM CDT Edilia Pettit NP CHEMISTRY ORDERABLES Performing Organization Address City/[facility]/ZIP Co de Phone Number [facility] [phone] [facility] [address] [place] [address] * (ABNORMAL) COMPREHENSIVE METABOLIC PANEL (06/02/2024 10:33 AM CDT) Pathologist [facility] SODIUM 140 136 - 145 mmol/L 06/02/2024 11:45 AM CDT [facility] POTASSIUM 3.7 3.5 - 5.0 mmol/L 06/02/2024 11:45 AM CDT [facility] - [facility] CHLORIDE 106 98 - 107 mmol/L 06/02/2024 11:[address] [facility] - [facility] [place] CO2 24 22 - 29 mmol/L 06/02/2024 11:[address] [facility] [employer] [facility] CALCIUM 9.3 8.6 - 10.2 mg/dL 06/02/2024 11:[address] [facility] BUN 7(L) 8 - 23 mg/dL 06/02/2024 11:[address] [facility] CREATININE 0.87 0.51 - 0.95 mg/dL 06/02/2024 11:[address] [facility] [employer] [facility] - . [place] GLUCOSE 111(H) 74 - 99 mg/dL 06/02/2024 11:[address] [facility] [employer] [facility] - . [place] TOTAL PROTEIN 6.9 6.7 - 8.6 g/dL 06/02/2024 11:[address] [facility] [employer] [facility] - . [facility] ALBUMIN 4.0 3.5 - 5.2 g/dL 06/02/2024 11:[address] [facility] [employer] [facility] - . [facility] BILIRUBIN TOTAL 0.4 0.2 - 1.1 mg/dL 06/02/2024 11:[address] [facility] [employer] [facility] - . [facility] ALKALINE PHOSPHATASE 82 35 - 104 U/L 06/02/2024 11:[address] [employer] [facility] - . [facility] AST 22 <33 U/L 06/02/2024 11:[address] [employer] [address] [facility] - . [facility] ALT 21 <34 U/L 06/02/2024 11:[address] [facility] [employer] [facility] - . [facility] GFR >60 >=60 mL/min/1.7 3 sq meter 06/02/2024 11:45 AM [employer] SERVICES - . [facility] Comment:eGFR calculated with 2020 CKD-EPI equation. Vegetarian diet, extremely high or low muscle mass, and may affect results. Cystatin C with Glomerular Filtration Rate is a suitable alternative for these patients. ANION GAP 10 8 - 16 mmol/L 06/02/2024 11:[address] [facility] [employer] [facility] - . [facility] Blood Collection / Unknown 06/02/2024 10:33 AM CDT 06/02/2024 11:01 AM CDT Narrative [facility] - 06/02/2024 11:45 AM CDT Samples containing indocyanine green cause interferences on Total and/or Direct Bilirubin and must not be measured. Edilia Pettit NP CHEMISTRY ORDERABLES [facility] CLIA# [id number] 5 [facility] GEETHALUCILE [facility] [place] [address] * (ABNORMAL) CBC WITH DIFFERENTIAL (06/02/2024 10:33 AM CDT) Pathologist [facility] WBC 4.4 4.0 - 9.8 K/uL 06/02/2024 11:09 AM [facility] NRBCS 1 % 06/02/2024 11:09 AM [facility] RBC 2.01(L) 3.90 - 4.90 M/uL 06/02/2024 11:09 AM [facility] [employer] [facility] HEMOGLOBIN 8.2(L) 11.8 - 14.8 g/dL 06/02/2024 11:09 AM [facility] HEMATOCRIT 24.4(L) 35.5 - 44.0 % 06/02/2024 11:09 AM [facility] MCV 121.4(H) 82.0 - 99.0 fL 06/02/2024 11:09 AM [facility] [employer] [facility] MCH 40.8(H) 27.2 - 32.6 pg 06/02/2024 11:09 AM [facility] [employer] [facility] MCHC 33.6 31.5 - 35.5 g/dL 06/02/2024 11:09 AM [facility] [employer] [facility] RDW 06/02/2024 11:09 AM [facility] LABORATORY [facility] Comment:Parameter not availa ble RDW-STDEV 06/02/2024 11:09 AM [facility] LABOR[facility] Comment:Parameter not availa ble PLATELETS 104(L) 140 - 350 K/uL 06/02/2024 11:09 AM CDT [facility] - . [place] MPV 11.4 9.3 - 12.4 fL 06/02/2024 11:09 AM CDT [facility] - . [facility] NEUTROPHILS 50 % 06/02/2024 11:09 AM CDT [facility] - . [place] LYMPHOCYTES 42 % 06/02/2024 11:09 AM CDT [facility] - . [place] MONOCYTES 7 % 06/02/2024 11:09 AM CDT [facility] [place] EOSINOPHILS 1 % 06/02/2024 11:09 AM CDT [facility] - . [place] BASOPHILS 1 % 06/02/2024 11:09 AM CDT [facility] - . [facility] IMMATURE GRANULOCYTES 0 % 06/02/2024 11:09 AM CDT [facility] - . [place] NEUTROPHIL ABSOLUTE 2.18 1.90 - 7.00 K/uL 06/02/2024 11:09 AM CDT [facility] - . [facility] LYMPHOCYTE ABSOLUTE 1.83 0.70 - 4.50 K/uL 06/02/2024 11:09 AM CDT [facility] - . [place] MONOCYTE ABSOLUTE 0.29 0.10 - 1.30 K/uL 06/02/2024 11:09 AM CDT [facility] - [facility] [place] EOSINOPHIL ABSOLUTE 0.04 0.00 - 0.70 K/uL 06/02/2024 11:09 AM CDT [facility] - [facility] [place] BASOPHILS ABSOLUTE 0.02 0.00 - 0.20 K/uL 06/02/2024 11:09 AM CDT [facility] - . [facility] IMMATURE GRANULOCYTES ABSOLUTE 0.01 0.00 - 0.03 K/uL 06/02/2024 11:09 AM T [facility] - [facility] Blood Collection / Unknown 06/02/2024 10:33 AM CDT 06/02/2024 10:54 AM CDT Edilia Pettit NP HEMATOLOGY ORDERABLE S [employer] SERVICES - [facility]# [id number] [address] [place] [address] * (ABNORMAL) URINALYSIS WITH REFLEX CULTURE (06/02/2024 10:33 AM CDT) COLOR UA Colorless(A ) Pale to Dark Yellow 06/02/2024 11:[address] [facility] [employer] SERVICES - [facility] CLARITY UA Clear Clear 06/02/2024 11:17 AM T [employer] SERVICES - [facility] SPECIFIC GRAVITY UA 1.002(L) 1.003 - 1.035 06/02/2024 11:17 AM [employer] SERVICES - [facility] PH UA 6.0 5.0 - 8.0 06/02/2024 11:17 AM [employer] SERVICES - [facility] LEUKOCYTE ESTERASE UA 1+(A) Negative 06/02/2024 11:17 AM [employer] [facility] - [facility] NITRITE UA Negative Negative 06/02/2024 11:17 AM [employer] SERVICES - [facility] PROTEIN UA Negative Negative 06/02/2024 11:17 AM [employer] SERVICES - [facility] GLUCOSE UA Negative Negative 06/02/2024 11:17 AM [employer] SERVICES - [facility] KETONES UA Negative Negative 06/02/2024 11:17 AM [employer] SERVICES - [facility] UROBILINOGEN UA Normal <2.0 mg/dL 11:17 AM [employer] [facility] SERVICES - [facility] BILIRUBIN UA Negative Negative 06/02/2024 11:17 AM [employer] SERVICES - . [facility] BLOOD UA Negative Negative 06/02/2024 11:17 AM [facility] - . [facility] WBC UA 0-2 0 - 2 /hpf 06/02/2024 11:17 AM [employer] SERVICES - . [facility] RBC UA 0-2 0 - 2 /hpf 06/02/2024 11:17 AM [facility] - . [facility] BACTERIA UA 1+(A) Negative /hpf 06/02/2024 11:17 AM [facility] - . [facility] EPITHELIAL CELLS, URINE 0-5 0 - 5 /hpf 06/02/2024 11:17 AM CDT [facility] Urine URINE SPECIMEN OBTAINED BY CLEAN CATCH PROCEDURE / Unknown Collection / Unknown 06/02/2024 10:33 AM CDT 06/02/2024 11:00 AM CDT Narrative [facility] - 06/02/2024 11:17 AM CDT Based on results, a urine culture has been reflexed. Edilia Pettit NP URINE ORDERABLES [facility] CLIA# [id number] [address] [place] [address] documented in this encounter Visit Diagnoses Diagnosis Malignant neoplasm of ovary, unspecified laterality- Primary Symptomatic anemia documented in this encounter Administered Medications Inactive Administered Medications - up to 3 most recent administrations Medication Order MAR Action Action Date Dose Rate Site bevacizumab-awwb (MVASI) 773 mg in sodium chloride 0.9% 100 mL IVPB 773 mg (rounded from 772.5 mg = 15 mg/kg ? 51.5 kg Treatment plan Recorded weight), IV, ONE TIME ONLY, 1 dose, On Peace 06/02/24 at 1300, Routine Rate Verify 06/02/2024 1:20 PM CDT 291.8 mL/hr New Bag 06/02/2024 1:19 PM CDT 773 mg 291.8 mL/hr documented in this encounter Care Teams Music Video Director Relationship Specialty Start Date End Date Shilo Soares MD [address] [place] [phone] PCP - General Internal Medicine 04/24/23 documented as of this encounter
--- OUTSIDE RECORDS SUMMARY | 2024-07-26 23:44 | XMS_ITS | Encounter Summary ---
Author Organization [facility] Address [address] [place] [address] Care Team Providers Care Package Line Operator Name Role Phone Shilo Soares MD Primary Care Provider [phone] Reason for Referral * PET Scan (Routine) - Closed Specialty Diagnoses / Procedures Referred By Alison gomez Referred To Contact Radiology Diagnoses Malignant neoplasm of ovary, unspecified laterality Pulmonary nodule Procedures PET TUMOR IMG W CT SKB Aviva Mosquera MD [address] [place] [phone] [facility] Nuclear Medicine Hall [address] [place] [address] [id number] Referral ID Status Reason Start Date Expiration Date Visits Re quested Visits Authorized [id number] Closed 05/24/2024 11/20/2024 1 1 Reason for Visit * Reason Onset Date Comments biopsy f/u 05/20/2024 Encounter Details Date Type Department Care Team (Late st Contact Info) Description 05/20/2024 Telephone [facility] Gynecologic On[facility] Hall [address] [place] [address] Aviva Humphries MD [address] [place] [address] biopsy f/u Social History Tobacco Use Types Packs/Day Years [...] Telephone Encounter - Luci Yu RN - 05/20/2024 1:45 PM CDT Pt is aware that IR can not perform bx due to the size of the lung nodules. Dr. Humphries recommends proceeding w/ PET scan. PET scan ordered. Given central scheduling's number. documented in this encounter Plan of Treatment Upcoming Encounters Date Type Department Care Team (Late st Contact Info) Description 08/04/2024 1:00 PM INTERNATIONAL ACCOUNT EXECUTIVE Appointment [facility] Infusion Center 2nd Fl [address] [place] [address] Aviva Humphries MD [address] [facility] [address] [place] [address] Infusion Chair 5, 2nd Floor Hall 08/25/2024 1:00 PM INTERNATIONAL ACCOUNT EXECUTIVE Office Visit [facility]nec[facility] Hall [address] [facility] [address] [place] [address] Edilia Pettit NP [address] [facility] [address] [place] [address] 08/25/2024 1:30 PM INTERNATIONAL ACCOUNT EXECUTIVE Appointment [facility] Infusion Center 2nd Fl [address] [place] [address] Aviva Humphries MD [address] [facility] [address] [place] [address] Infusion Chair 1, 2nd Floor [place] 09/01/2024 10:45 AM INTERNATIONAL ACCOUNT EXECUTIVE Appointment [facility] Nuclear Medicine [address] [facility] [place] [address] [id number] Edilia Pettit NP [address] [facility] [address] [place] [address] documented as of this encounter Results * PET TUMOR IMG W CT SKB TH (05/31/2024 11:44 AM CDT) Anatomical Region Laterality [...] pelvic recurrence. DICTATION LOCATION: Location 1 - [facility] Narrative 05/31/2024 1:47 PM CDT PET/CT IMAGING [...] pelvic recurrence. DICTATION LOCATION: Location 1 - [facility] Aviva Humphries MD PE ORDERABLES documented in this encounter Visit Diagnoses Diagnosis Malignant neoplasm of ovary, unspecified laterality- Primary Pulmonary nodule Solitary pulmonary nodule Malignant neoplasm of ovary, unspecified laterality Pulmonary nodule Solitary pulmonary nodule documented in this encounter Care Teams Package Line Operator Relationship Specialty Start Date End Date Shilo Soares MD [address] [place] [address] PCP - General Internal Medicine 04/24/23 documented as of this encounter
--- OUTSIDE RECORDS SUMMARY | 2024-07-26 23:44 | XMS_ITS | Encounter Summary ---
Author Organization [facility] Address [address] [place] [address] Care Team Providers Care Plumbing Technician Name Role Phone Shilo Soares MD Primary Care Provider [phone] Encounter Details Date Type Department Care Team (Latest Contact Info) Description 05/12/2024 11:31 AM CDT - 05/12/2024 11:59 PM CDT Hospital Encounter [facility] [address] [place] [address] Aviva Humphries MD [address] [place] [address] Discharge Disposition: Home or Self [...] bedtime. 02/26/2021 fluticasone propionate (FLONASE) 50 mcg/spray [place], Suspension nasal inhaler Administer 2 Sprays in [...] encounter Miscellaneous Notes * Treatment Plan - Belkis Warner, RN - 05/12/2024 11:45 AM CDT [facility] INFCTR IV Flush Protocol [facility] Approved by: [facility] - Medical Executive Committee Approval Date: 10/29/2023 ORDERS ARE ENTERED ???PER PROTOCOL?? Enter the protocol in the patient's electronic health record using Locate Special Diet .flushprotocolinfusioncenteradult Central Venous Catheter occlusion therapy Alteplase (CATHFLO) Instill 2 mg to affected lumen(s) to dwell in occluded lumen one time if neededfor occlusion. May instill a second dose after 120 minutes if catheter remains occluded. Flush orders: Enter orders BELOW ???per protocol?? using the Outpatient Infusion Flush Panel Adult Line care and maintenance Assess VAD function using a 10 mL syringe, or a syringe specifically designed to generate lower injection pressure (eg, 10 mL diameter syringe barrel) Sodium chloride 0.9% (normal saline) flush 10 mL per lumen AND Heparin 10 units/mL 5 mL per lumen to lock line post procedure Sodium chloride 0.9% (normal saline) flush 10 mL per lumen PRN for line care or to complete medication administration Central Venous Line - Heparin 10 units/mL 5mL per lumen to dwell PRN to heparin lock lumen post medication administration PICCs (non-valved, open tip) -Sodium chloride 0.9% (normal saline) flush 10 mL per lumen AND heparin 10 units/mL 5mL per lumen to lock line per day QOD; or three times weekly; per lumen. PICCs (valved, closed tip) - Sodium chloride 0.9% (normal saline) flush 10 mL per lumen daily, QOD,or three times weekly per lumen Flush Bag (select most appropriate fluid for compatibility with medications) Sodium chloride 0.9% (normal saline) 250 mL flush bag. Infuse at a rate of administration flush as needed to complete the IVPB and/or may keep rate at KVO(30 mL/hr) to minimize frequent line interruption. Dextrose 5% (D5W) 250 mL flush bag Infuse at a rate of administration flush as needed to complete the IVPB and/or may keep rate at KVO(30 mL/hr) to minimize frequent line interruption documented in this encounter Plan of Treatment Upcoming Encounters Date Type Department Care Team (Late st Contact Info) Description 08/04/2024 1:00 PM SHAREPOINT ARCHITECT Appointment Randy [facility] 2nd Fl [address] [place] [address] Aviva Humphries MD [address] [facility] [address] [place] [address] Infusion Chair 5, 2nd Floor Hall 08/25/2024 1:00 PM SHAREPOINT ARCHITECT Office Visit [facility] Gynecologic Oncology [place] [address] [facility] [address] [place] [address] Edilia Pettit, CHELY [address] [address] 08/25/2024 1:30 PM SHAREPOINT ARCHITECT Appointment Randy [facility] 2nd Fl [address] [place] [address] Aviva Humphries MD [address] [facility] [address] [facility] [place] [address] Infusion Chair 1, 2nd Floor Hall 09/01/2024 10:45 AM SHAREPOINT ARCHITECT Appointment [facility] Nuclear Medicine [address] [place] [address] [id number] Edilia Pettit, STOVE MECHANIC [address] [phone] documented as of this encounter Procedures Procedure Name Priority Date/Time Associated Diagnosis Comments DIFFERENTIAL, MANUAL Stat 05/12/2024 11:38 AM CDT [...] in this encounter Results * MANUAL DIFFERENTIAL (05/12/2024 11:38 AM CDT) PLATELET EST. Consistent w Count 05/12/2024 12:21 PM CDT [facility] ANISOCYTOSIS 1+ /hpf 05/12/2024 12:21 PM CDT [facility] - . [facility] POIKILOCYTES 1+ /hpf 05/12/2024 12:21 PM CDT [facility] . [facility] MACROCYTES 2+ /hpf 05/12/2024 12:21 PM CDT [facility] - . [facility] OVALOCYTES 1+ /hpf 05/12/2024 12:21 PM CDT [facility] . [facility] Blood Collection / Unknown 05/12/2024 11:38 AM CDT 05/12/2024 11:57 AM CDT Aviva Humphries MD HEMATOLOGY ORDERABLE S COM [facility] CLIA# [id number] [address] [place] [address] * (ABNORMAL) URINALYSIS WITH REFLEX MICROSCOPIC (05/12/2024 11:38 AM CDT) COLOR UA Yellow Pale to Dark Yellow 05/12/2024 12:31 PM CDT [facility] CLARITY UA Clear Clear 05/12/2024 12:31 PM CDT [facility] SPECIFIC GRAVITY UA 1.013 1.003 - 1.035 05/12/2024 12:31 PM CDT [facility] PH UA 5.0 5.0 - 8.0 05/12/2024 12:31 PM [facility] LEUKOCYTE ESTERASE UA 3+(A) Negative 05/12/2024 12:31 PM T [facility] NITRITE UA Negative Negative 05/12/2024 12:31 PM [facility] PROTEIN UA Negative Negative 05/12/2024 12:31 PM CDT [facility] GLUCOSE UA Negative Negative 05/12/2024 12:31 PM CDT [facility] KETONES UA Negative Negative 05/12/2024 12:31 PM T [facility] UROBILINOGEN UA Normal <2.0 mg/dL 12:31 PM T [facility] BILIRUBIN UA Negative Negative 05/12/2024 12:31 PM CDT [facility] BLOOD UA Negative Negative 05/12/2024 12:31 PM CDT [facility] WBC UA 26-50(A) 0 - 2 /hpf 05/12/2024 12:31 PM CDT [facility] RBC UA 0-2 0 - 2 /hpf 05/12/2024 12:31 PM [facility] BACTERIA UA Negative Negative /hpf 05/12/2024 12:31 PM T [facility] EPITHELIAL CELLS, URINE 0-5 0 - 5 /hpf 05/12/2024 12:31 PM T [facility] Urine URINE SPECIMEN OBTAINED BY CLEAN CATCH PROCEDURE / Unknown Collection / Unknown 05/12/2024 11:38 AM CDT 05/12/2024 12:04 PM CDT Aviva Humphries MD URINE ORDERABLES [facility] CLIA# [id number] [address] [facility] [place], [place] [address] * (ABNORMAL) COMPREHENSIVE METABOLIC PANEL (05/12/2024 11:38 AM CDT) SODIUM 135(L) 136 - 145 mmol/L 05/12/2024 12:43 PM T [facility] POTASSIUM 3.9 3.5 - 5.0 mmol/L 05/12/2024 12:43 PM T [facility] CHLORIDE 101 98 - 107 mmol/L 05/12/2024 12:43 PM T [facility] CO2 23 22 - 29 mmol/L 05/12/2024 12:43 PM T [facility] CALCIUM 9.3 8.6 - 10.2 mg/dL 05/12/2024 12:43 PM T [facility] BUN 11 8 - 23 mg/dL 05/12/2024 12:43 PM T [facility] CREATININE 0.98(H) 0.51 - 0.95 mg/dL 05/12/2024 12:43 PM T [facility] GLUCOSE 146(H) 74 - 99 mg/dL 05/12/2024 12:43 PM T [facility] TOTAL PROTEIN 7.0 6.7 - 8.6 g/dL 05/12/2024 12:43 PM T [facility] ALBUMIN 4.2 3.5 - 5.2 g/dL 05/12/2024 12:43 PM T [facility] BILIRUBIN TOTAL 0.5 0.2 - 1.1 mg/dL 05/12/2024 12:43 PM T [facility] ALKALINE PHOSPHATASE 82 35 - 104 U/L 05/12/2024 12:43 PM T [facility] AST 22 <33 U/L 05/12/2024 12:43 PM T [facility] ALT 19 <34 U/L 05/12/2024 12:43 PM CDT [facility] GFR >60 >=60 mL/min/1.7 3 sq meter 05/12/2024 12:43 PM T [facility] Comment:eGFR calculated with 2020 CKD-EPI equation. Vegetarian diet, extremely high or low muscle mass, and may affect results. Cystatin C with Glomerular Filtration Rate is a suitable alternative for these patients. ANION GAP 11 8 - 16 mmol/L 05/12/2024 12:43 PM T [facility] Blood Collection / Unknown 05/12/2024 11:38 AM CDT 05/12/2024 12:07 PM CDT [facility] - 05/12/2024 12:43 PM CDT Samples containing indocyanine green cause interferences on Total and/or Direct Bilirubin and must not be measured. Aviva Humphries MD CHEMISTRY ORDERABLES [facility]# [id number] 5 [facility] [address] * (ABNORMAL) CBC WITH DIFFERENTIAL (05/12/2024 11:38 AM CDT) Pathologist [facility] WBC 4.7 4.0 - 9.8 K/uL 05/12/2024 11:59 AM [facility] RBC 1.78(L) 3.90 - 4.90 M/uL 05/12/2024 11:59 AM T [facility] HEMOGLOBIN 7.5(L) 11.8 - 14.8 g/dL 05/12/2024 11:59 AM T [facility] HEMATOCRIT 22.0(L) 35.5 - 44.0 % 05/12/2024 11:59 AM T [facility] MCV 123.6(H) 82.0 - 99.0 fL 05/12/2024 11:59 AM CDT [facility] MCH 42.1(H) 27.2 - 32.6 pg 05/12/2024 11:59 AM CDT [facility] MCHC 34.1 31.5 - 35.5 g/dL 05/12/2024 11:59 AM CDT [facility] RDW 19.7(H) 11.5 - 14.5 % 05/12/2024 11:59 AM CDT [facility] - . [facility] RDW-STDEV 88.2(H) 37.1 - 48.7 fL 05/12/2024 11:59 AM CDT [facility] PLATELETS 120(L) 140 - 350 K/uL 05/12/2024 11:59 AM CDT [facility] - . [facility] MPV 11.8 9.3 - 12.4 fL 05/12/2024 11:59 AM CDT [facility] - . [facility] NEUTROPHILS 56 % 05/12/2024 11:59 AM CDT [facility] LYMPHOCYTES 36 % 05/12/2024 11:59 AM CDT [facility] MONOCYTES 6 % 05/12/2024 11:59 AM CDT [facility] EOSINOPHILS 0 % 05/12/2024 11:59 AM CDT [facility] BASOPHILS 0 % 05/12/2024 11:59 AM CDT [facility] IMMATURE GRANULOCYTES 0 % 05/12/2024 11:59 AM CDT [facility] - . [facility] NEUTROPHIL ABSOLUTE 2.62 1.90 - 7.00 K/uL 05/12/2024 11:59 AM CDT [facility] - . [facility] LYMPHOCYTE ABSOLUTE 1.70 0.70 - 4.50 K/uL 05/12/2024 11:59 AM CDT [facility] - . [facility] MONOCYTE ABSOLUTE 0.30 0.10 - 1.30 K/uL 05/12/2024 11:59 AM CDT [facility] - . [facility] EOSINOPHIL ABSOLUTE 0.02 0.00 - 0.70 K/uL 05/12/2024 11:59 AM CDT [facility] BASOPHILS ABSOLUTE 0.02 0.00 - 0.20 K/uL 05/12/2024 11:59 AM CDT [facility] - . [facility] IMMATURE GRANULOCYTES ABSOLUTE 0.01 0.00 - 0.03 K/uL 05/12/2024 11:59 AM [facility] - . [facility] Blood Collection / Unknown 05/12/2024 11:38 AM CDT 05/12/2024 11:57 AM CDT Aviva Humphries MD HEMATOLOGY ORDERABLE S Performing Organization Address City/[facility]/ZIP Co de Phone Number [facility]# [id number] [address] [place] [address] * CANCER ANTIGEN 125 (05/12/2024 11:38 AM CDT) CA 125 6 <35 U/mL [facility] Comment: This test was performed using the Siemens Chemiluminescent method. Values obtained from different assay methods cannot be used interchangeably. CA 125 levels, regardless of value, should not be interpreted as absolute evidence of the presence or absence of disease. Test Performed at: [facility] [address] [place] [address] ??[phone] Radha Perez MD Blood 05/12/2024 11:3 8 AM CDT 05/12/2024 12:02 PM CDT Aviva Humphries MD CHEMISTRY ORDERABLES Performing Organization Address City/[facility]/ZIP Co de Phone Number [facility] [phone] [address] documented in this encounter Visit Diagnoses Diagnosis Malignant neoplasm of ovary, unspecified laterality documented in this encounter Administered Medications Inactive Administered Medications - up to 3 most recent administrations Medication Order MAR Action Action Date Dose Rate Site sodium chloride flush injection 20 mL 20 mL, IV, SEE ADMIN INSTRUCTIONS, Starting on Peace 05/12/24 at 1138, Until Thu05/13/24 at 0257, Routine Given 05/12/2024 11:44 AM CDT 20 mL documented in this encounter Care Teams Plumbing Technician Relationship Specialty Start Date End Date Shilo Soares MD [address] [place] [address] PCP - General Internal Medicine 04/24/23 documented as of this encounter
--- OUTSIDE RECORDS SUMMARY | 2024-07-26 23:44 | XMS_ITS | Encounter Summary ---
Author Organization [facility] Address [address] [place] [address] Care Team Providers Care Settlement Clerk Name Role Phone Shilo Soares MD Primary Care Provider [phone] Encounter Details Date Type Department Care Team [...] Contact Info) Description 08/04/2024 1:00 PM LOAN INTERVIEWER MORTGAGE Appointment [facility] 2[facility] [address] [place] [address] Aviva Humphries MD [address] [place] [address] Infusion Chair 5, 2nd Floor Hall 08/25/2024 1:00 PM LOAN INTERVIEWER MORTGAGE Office Visit [facility] Gynecologic Oncology Hall [address] [place] [address] Edilia Pettit, CHELY [address] [facility] [address] [place] [phone] 08/25/2024 1:30 PM LOAN INTERVIEWER MORTGAGE Appointment [facility] 2nd Fl [address] [place] [address] Aviva Humphries MD [address] [facility] [facility] [address] [place] [address] Infusion Chair 1, 2nd Floor [place] 09/01/2024 10:45 AM LOAN INTERVIEWER MORTGAGE Appointment Randy [facility] Nuclear Medicine [address] [place] [address] [id number] Edilia Pettit, CHELY [address] [facility] [address] [place] [address] documented as of this encounter Visit Diagnoses Not on filedocumented in this encounter Care Teams Settlement Clerk Relationship Specialty Start Date End Date Shilo Soares MD [address] [place] [address] PCP - General Internal Medicine 04/24/23 documented as of this encounter
--- OUTSIDE RECORDS SUMMARY | 2024-07-26 23:44 | XMS_ITS | Encounter Summary ---
Author Organization [facility] Address [address] [place] [address] Care Team Providers Care E Commerce Specialist Name Role Phone Shilo Soares MD Primary Care Provider [phone] Encounter Details Date Type Department Care Team (Late Contact Info) Description 05/25/2024 External Device Data STL ABSTRACTION Provider, [...] Contact Info) Description 08/04/2024 1:00 PM TEACHER ADVISOR Appointment [facility] 2nd De [address] [place] [address] Aviva Humphries MD [address] [place] [address] Infusion Chair 5, 2nd Floor Hall 08/25/2024 1:00 PM TEACHER ADVISOR Office Visit [facility] Gynecologic Oncology Hall [address] [place] [address] Edilia Pettit, CHELY [address] [facility] [address] [place] [address] 08/25/2024 1:30 PM TEACHER ADVISOR Appointment [facility] 2nd Fl [address] [place] [address] Aviva Humphries MD [address] [facility] [address] [place] [address] Infusion Chair 1, 2nd Floor [place] 09/01/2024 10:45 AM TEACHER ADVISOR Appointment Randy [facility] Nuclear Medicine [address] [place] [address] [id number] Edilia Pettit, CHELY [address] [facility] [address] [place] [address] documented as of this encounter Visit Diagnoses Not on filedocumented in this encounter Care Teams E Commerce Specialist Relationship Specialty Start Date End Date Shilo Soares MD [address] [place] [address] PCP - General Internal Medicine 04/24/23 documented as of this encounter
--- OUTSIDE RECORDS SUMMARY | 2024-07-26 23:44 | XMS_ITS | Encounter Summary ---
Author Organization [facility] Address [address] [place] [address] Care Team Providers Care Tong Carrier Name Role Phone Shilo Soares MD Primary Care Provider [phone] Encounter Details Date Type Department Care Team (Late Contact Info) Description 04/27/2024 External Device Data STL ABSTRACTION Provider, [...] (Late Contact Info) Description 08/04/2024 1:00 PM FOUNDRY SUPERVISOR Appointment [facility] 2nd In [address] [place] [address] Aviva Humphries MD [address] [place] [address] Infusion Chair 5, 2nd Floor Hall 08/25/2024 1:00 PM FOUNDRY SUPERVISOR Office Visit [facility] Gynecologic Oncology Hall [address] [place] [address] Edilia Pettit, CHELY [address] [facility] [address] [place] [address] 08/25/2024 1:30 PM FOUNDRY SUPERVISOR Appointment [facility] 2nd Fl [address] [place] [address] Aviva Humphries MD [address] [facility] [address] [place] [address] Infusion Chair 1, 2nd Floor [place] 09/01/2024 10:45 AM FOUNDRY SUPERVISOR Appointment Randy [facility] Nuclear Medicine [address] [place] [address] [id number] Edilia Pettit, CHELY [address] [facility] [address] [place] [address] documented as of this encounter Visit Diagnoses Not on filedocumented in this encounter Care Teams Tong Carrier Relationship Specialty Start Date End Date Shilo Soares MD [address] [place] [address] PCP - General Internal Medicine 04/24/23 documented as of this encounter
--- OUTSIDE RECORDS SUMMARY | 2024-07-26 23:44 | XMS_ITS | Encounter Summary ---
Author Organization [facility] Address [address] [place] [address] Care Team Providers Care Voip Technician Name Role Phone Shilo Soares MD Primary Care Provider [phone] Encounter Details Date Type Department Care Team (Late Contact Info) Description 05/08/2024 External Device Data STL ABSTRACTION Provider, [...] Contact Info) Description 08/04/2024 1:00 PM TAPE RECORDER REPAIRER Appointment [facility] 2nd [place] [address] [place] [address] Aviva Humphries MD [address] [place] [address] Infusion Chair 5, 2nd Floor Hall 08/25/2024 1:00 PM TAPE RECORDER REPAIRER Office Visit [facility] Gynecologic Oncology Hall [address] [place] [address] Edilia Pettit, CHELY [address] [facility] [address] [place] [phone] 08/25/2024 1:30 PM TAPE RECORDER REPAIRER Appointment [facility] 2nd Fl [address] [place] [address] Aviva Humphries MD [address] [facility] [address] [facility] [address] [place] [address] Infusion Chair 1, 2nd Floor [place] 09/01/2024 10:45 AM TAPE RECORDER REPAIRER Appointment [facility] Nuclear Medicine [address] [place] [address] [id number] Edilia Pettit, CHELY [address] [facility] [address] [place] [address] documented as of this encounter Visit Diagnoses Not on filedocumented in this encounter Care Teams Voip Technician Relationship Specialty Start Date End Date Shilo Soares MD [address] [place] [address] PCP - General Internal Medicine 04/24/23 documented as of this encounter
--- OUTSIDE RECORDS SUMMARY | 2024-07-26 23:44 | XMS_ITS | Encounter Summary ---
Author Organization [facility] Address [address] [place] [address] Care Team Providers Care Strapping Machine Tender Name Role Phone Shilo Soares MD Primary Care Provider [phone] Encounter Details Date Type Department Care Team (Late Contact Info) Description 05/02/2024 External Device Data STL ABSTRACTION Provider, [...] (Late Contact Info) Description 08/04/2024 1:00 PM BI TESTER Appointment [facility] 2nd Md [address] [place] [address] Aviva Humphries MD [address] [place] [address] Infusion Chair 5, 2nd Floor Hall 08/25/2024 1:00 PM BI TESTER Office Visit [facility] Gynecologic Oncology Hall [address] [place] [address] Edilia Pettit, CHELY [address] [facility] [address] [place] [phone] 08/25/2024 1:30 PM BI TESTER Appointment [facility] 2nd Fl [address] [place] [address] Aviva Humphries MD [address] [facility] [address] [place] [address] Infusion Chair 1, 2nd Floor [place] 09/01/2024 10:45 AM BI TESTER Appointment Randy [facility] Nuclear Medicine [address] [place] [address] [id number] Edilia Pettit, CHELY [address] [facility] [address] [place] [address] documented as of this encounter Visit Diagnoses Not on filedocumented in this encounter Care Teams Strapping Machine Tender Relationship Specialty Start Date End Date Shilo Soares MD [address] [place] [address] PCP - General Internal Medicine 04/24/23 documented as of this encounter
--- OUTSIDE RECORDS SUMMARY | 2024-07-26 23:44 | XMS_ITS | Encounter Summary ---
Author Organization [facility] Address [address] [place] [address] Care Team Providers Care Geriatric Social Work Professor Name Role Phone Shilo Soares MD Primary Care Provider [phone] Encounter Details Date Type Department Care Team (Late Contact Info) Description 05/31/2024 External Device Data STL ABSTRACTION Provider, [...] (Late Contact Info) Description 08/04/2024 1:00 PM SLURRY TANK OPERATOR Appointment [facility] 2nd [place] [address] [place] [address] Aviva Humphries MD [address] [place] [address] Infusion Chair 5, 2nd Floor Hall 08/25/2024 1:00 PM SLURRY TANK OPERATOR Office Visit [facility] Gynecologic Oncology Hall [address] [place] [address] Edilia Pettit, CHELY [address] [place] [phone] 08/25/2024 1:30 PM SLURRY TANK OPERATOR Appointment [facility] 2nd Fl [address] [place] [address] Aviva Humphries MD [address] [place] [address] Infusion Chair 1, 2nd Floor [place] 09/01/2024 10:45 AM SLURRY TANK OPERATOR Appointment [facility] Nuclear Medicine [address] [place] [address] [id number] Edilia Pettit, CHELY [address] [facility] [address] [place] [address] documented as of this encounter Visit Diagnoses Not on filedocumented in this encounter Care Teams Geriatric Social Work Professor Relationship Specialty Start Date End Date Shilo Soares MD [address] [place] [address] PCP - General Internal Medicine 04/24/23 documented as of this encounter
--- OUTSIDE RECORDS SUMMARY | 2024-07-26 23:44 | XMS_ITS | Encounter Summary ---
Author Organization [facility] Address [address] [place] [address] Care Team Providers Care Fabricator Special Items Name Role Phone Shilo Soares MD Primary Care Provider [phone] Reason for Referral * Outpatient Services (Routine) - Authorized Specialty Diagnoses / Procedures Referred By Contac t Referred To Contact Oncology Diagnoses Malignant neoplasm of ovary, unspecified laterality Procedures INFUSION THERAPY blood only Aviva Humphries MD [address] [facility] [address] [place] [address] 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); Malignant neoplasm of ovary, unspecified laterality Social History Tobacco Use Types Packs/Day Years [...] st Contact Info) Description 08/04/2024 1:00 PM OPERATOR/ASSISTANT FOREMAN Appointment [facility] Infusion Center 2nd [place] [address] [place] [address] Aviva Humphries MD [address] [facility] [address] [place] [address] Infusion Chair 5, 2nd Floor Hall 08/25/2024 1:00 PM OPERATOR/ASSISTANT FOREMAN Office Visit [facility] Gynecologic Oncology Hall [address] [facility] [address] [facility] [place] [address] Edilia Pettit, CHELY [address] [facility] [address] [place] [phone] 08/25/2024 1:30 PM OPERATOR/ASSISTANT FOREMAN Appointment [facility] Infusion Center 2nd Fl [address] [place] [address] Aviva Humphries MD [address] [facility] [address] [place] [phone] Infusion Chair 1, 2nd Floor Hall 09/01/2024 10:45 AM OPERATOR/ASSISTANT FOREMAN Appointment Randy [facility] Nuclear Medicine [address] [place] [address] [id number] Edilia Pettit, BREWING TECHNICIAN [address] [facility] [address] [place] [phone] documented as of this encounter Results * TYPE AND SCREEN (05/12/2024 12:53 PM CDT) ABO GROUP A 05/12/2024 2:14 PM CDT [facility] RH (D) TYPE Positive 05/12/2024 2:14 PM CDT [facility] ANTIBODY SCREEN Negative 05/12/2024 2:14 PM CDT [facility] Blood Collection / Unknown 05/12/2024 12:53 PM CDT 05/12/2024 1:02 PM CDT Aviva Humphries MD BLOOD BANK ORDERABLE S [id number] [address] [place] [address] documented in this encounter Visit Diagnoses Diagnosis Anemia in neoplastic disease- Primary Malignant neoplasm of ovary, unspecified laterality documented in this encounter Care Teams Fabricator Special Items Relationship Specialty Start Date End Date Shilo Soares MD [address] [place] [phone] PCP - General Internal Medicine 04/24/23 documented as of this encounter
--- OUTSIDE RECORDS SUMMARY | 2024-07-26 23:44 | XMS_ITS | Encounter Summary ---
Author Organization [facility] Address [address] [place] [address] Care Team Providers Care Buffer Copper Name Role Phone Shilo Soares MD Primary Care Provider [phone] Encounter Details Date Type Department Care Team (Late Contact Info) Description 05/04/2024 External Device Data STL ABSTRACTION Provider, [...] (Late Contact Info) Description 08/04/2024 1:00 PM TEST ENGINE OPERATOR Appointment [facility] 2nd [place] [address] [place] [address] Aviva Humphries MD [address] [place] [address] Infusion Chair 5, 2nd Floor Hall 08/25/2024 1:00 PM TEST ENGINE OPERATOR Office Visit [facility] Gynecologic Oncology Hall [address] [place] [address] Edilia Pettit, CHELY [address] [facility] [address] [place] [address] 08/25/2024 1:30 PM TEST ENGINE OPERATOR Appointment [facility] 2nd Fl [address] [place] [address] Aviva Humphries MD [address] [place] [address] Infusion Chair 1, 2nd Floor [place] 09/01/2024 10:45 AM TEST ENGINE OPERATOR Appointment [facility] Nuclear Medicine [address] [place] [phone] [id number] Edilia Pettit, CHELY [address] [facility] [address] [place] [address] documented as of this encounter Visit Diagnoses Not on filedocumented in this encounter Care Teams Buffer Copper Relationship Specialty Start Date End Date Shilo Soares MD [address] [place] [address] PCP - General Internal Medicine 04/24/23 documented as of this encounter
--- OUTSIDE RECORDS SUMMARY | 2024-07-26 23:44 | XMS_ITS | Encounter Summary ---
Author Organization [facility] Address [address] [place] [address] Care Team Providers Care Front End Driver Name Role Phone Shilo Soares MD Primary Care Provider [phone] Encounter Details Date Type Department Care Team (Late Contact Info) Description 05/07/2024 External Device Data STL ABSTRACTION Provider, [...] (Late Contact Info) Description 08/04/2024 1:00 PM CAFE TEAM MEMBER Appointment [facility] 2nd [place] [address] [place] [address] Aviva Humphries MD [address] [place] [address] Infusion Chair 5, 2nd Floor Hall 08/25/2024 1:00 PM CAFE TEAM MEMBER Office Visit [facility] Gynecologic Oncology Hall [address] [place] [address] Edilia Pettit, CHELY [address] [facility] [address] [place] [address] 08/25/2024 1:30 PM CAFE TEAM MEMBER Appointment [facility] 2nd Fl [address] [place] [address] Aviva Humphries MD [address] [place] [address] Infusion Chair 1, 2nd Floor [place] 09/01/2024 10:45 AM CAFE TEAM MEMBER Appointment [facility] Nuclear Medicine [address] [place] [address] [id number] Edilia Pettit, CHELY [address] [facility] [address] [place] [address] documented as of this encounter Visit Diagnoses Not on filedocumented in this encounter Care Teams Front End Driver Relationship Specialty Start Date End Date Shilo Soares MD [address] [place] [address] PCP - General Internal Medicine 04/24/23 documented as of this encounter
--- OUTSIDE RECORDS SUMMARY | 2024-07-26 23:44 | XMS_ITS | Encounter Summary ---
Author Organization [facility] Address [address] [place] [address] Care Team Providers Care Information Specialist Name Role Phone Shilo Soares MD Primary Care Provider [phone] Reason for Referral * Outpatient Services (Routine) - Authorized Specialty Diagnoses / Procedures Referred By Alison t Referred To Contact Oncology Diagnoses Symptomatic anemia Procedures INFUSION THERAPY PRBC Terra Eldridge PA-C [address] [place] [address] [place] [address] [facility] 2nd Floor Hall [address] [place] [address] Referral ID Status Reason Start Date Expiration Date V isits Requested Visits Authorized [id number] Authorized 06/02/2024 07/03/2025 1 1 Reason for Visit * Reason Comments Chemotherapy prechemo Encounter Details Date Type Department Care Team (Late st Contact Info) Description 06/02/2024 11:30 AM CDT Office Visit [facility] Gynecologic Oncology Hall [address] [place] [phone] [place] [address] Terra Eldridge PA-C [address] [place] [phone] [place] [address] Maintenance antineoplastic immunotherapy (Primary Dx); Malignant neoplasm of ovary, unspecified laterality; Symptomatic anemia Social History Tobacco Use Types Packs/Day Years [...] Sign Reading Time Taken Comments Blood Pressure 132/64 06/02/2024 11:13 AM CDT Pulse 91 06/02/2024 11:13 AM CDT Temperature 36.4 ??C (97.6 ??F) 06/02/2024 11:13 AM C DT Respiratory Rate 16 06/02/2024 11:13 AM CDT Oxygen Saturation 98% 06/02/2024 11:13 AM CDT Inhaled Oxygen Concentration - - Weight 51.3 kg (113 lb 3.2 oz) 06/02/2024 11:13 AM CDT Height 167.6 cm (5' 6 ) 06/02/2024 11:13 AM CDT Body Mass Index 18.27 06/02/2024 11:13 AM CDT documented in this encounter Progress Notes * Terra Eldridge PA-C - 06/02/2024 11:23 AM CDT Images from the original note were not included. [facility] GYNECOLOGIC ONCOLOGY OFFICE VISIT 06/02/2024November Eileen Tiarra REFERRING PROVIDER: Dr. Barnard ref. provider found PRIMARY CARE PROVIDER: Shilo Harley MD RETURN PATIENT VISIT Cancer Staging Ovarian cancer Staging form: Ovary, Fallopian Tube, and Primary Peritoneal Carcinoma, AJCC 8th Edition - Clinical stage from 05/13/2023: FIGO Stage IVB - Signed by Aviva Humphries MD on 05/13/2023 Oncology History: 03/2023 presented to [place] ED with abdominal distension; CT showed 11.6cm [...] 15mg/m2 + 11/19/23 olaparib 300mg BID maintenance initiated 11/09/23 CT CAP shows 5 mm pulmonary nodule in the left upper lobe. No evidence of disease in abdomenor pelvis. 02/10/24 CTCAP multiple scattered pulmonary nodules in need of short term follow up Current Therapy: bevacizumab 15mg/m2 q21 days + olaparib 300mg BID Port: Yes, working well NGS/IHC: [facility]: 09/03/23 Results of this testing were negative, meaning no genetic variant was identified in the genes analyzed; thus, no inherited/germline predisposition to cancer syndromes was identified. 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 A CT scan was performed revealing a large ovarian mass with carcinomatosis, inguinal and pelvic LAD and thickening of the stomach wall. She was sen by Dr. Rodgers in Medical Oncology on 04/29/23 who ordered additional work up and referred to [facility] oncology. CT chest did not show metastatic disease. CA-125 was performed and elevated at 751. 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 She was started on NACT with carbo/taxol/sima as noted above. She underwent surgical debulking with Dr. Humphries. She has completed po st-operative chemotherapy. She is currently receiving maintenance therapy in the form of bevacizumab 15mg/m2 q21 days + olaparib 300mg BID. Cycle #17 today. Cold like symptoms for about a week with low grade fever 100.1 over this past weekend. She went to and was treated for sinusitis with Z-elvira. She continues to experience fatigue from olaparib but reports that it is manageable and not interested in dose reduction. She can tell her blood counts are lower because she is more dyspneic, especially on exertion. Overall feeling weaker. Denies dizziness. November denies recent changes to urinary or bowel habits. Denies newly diminished appetite, nausea, vomiting, new onset pain, abdominal bloating, or vaginal bleeding. Lab Results Component Value Date/Time CA125 6 05/12/2024 11:38 AM CA125 6 [...] are received in five containers each labeled November . Received in the first container additionally [...] to show a complete pinpoint, stellate lumen. Hand Violin Maker sections are submitted in cassettes labeled A1-anterior cervix; A2-anterior polyp, submitted entirely; A3-anterior endomyometrium; A4-posterior cervix; A5-posterior endomyometrium; A6-left ovary; A7-left fallopian tube, fimbria submitted entirely; A8-presumed right fallopian tube, fimbria submitted entirely; A9 through H76-vzjytf mass (2 sections in each cassette) with mucinous component in 9-10. Received in the second container additionally labeled omentum are 2 irregular fragments of calhoun-yellow to red-brown lobulated omentum measuring 35.8 x 6 x 2 cm in aggregate. Sections show a calhoun-yellow, fatty cut surface containing multiple pink-cancino firm nodules measuring up to 1.8 cm in greatest dimension. Hand Violin Maker sections are submitted in cassettes labeled B1 [...] SMB MICROSCOPIC DESCRIPTION The slides are labeled [id number] and November. Sections of the salpingo-oophorectomy (A) [...] heterogeneity, focal positivity for ER, and rare OR positivity. Negative staining is observed for WT1 and CK20. Although weak patchy positivity for AMACR and Napsin A,and focal positivity for ER and rare OR positivity are unusual for clear cell carcinoma, [...] malignant cells. See microscopic description. 04/29/23 Paracentesis [facility] review Component FINAL DIAGNOSIS [place] [address] (OSC [id number]; 04/29/2023 and [id number]; 05/06/2023) [id number] Ascites fluid, cytologic examination: - CK7 positive adenocarcinoma. [id number] Lymph node, right inguinal, biopsy: - Metastatic carcinoma most compatible with high-grade serous carcinoma. See comment. at 1237 MICROSCOPIC DESCRIPTION Received are slides labeled [id number] and [id number] and NovemberKarely Mayen. Microscopic examination of the ascites fluid shows [...] origin. Sections of the lymph node biopsy ([id number]) show cores of lymph node involved by [...] to Dr. Humphries on 05/26/23. Recent Labs 06/02/24 1033 WBC 4.4 HGB 8.2* HCT 24.4* PLT 104* NA 140 K 3.7 CL 106 CO2 24 BUN 7* CREAT 0.87 GLUCOSE 111* ALT 21 AST 22 Past Medical History: Diagnosis Date COPD (chronic obstructive pulmonary disease) with emphysema History of chemotherapy Hyperlipidemia Ovarian cancer 04/2023 s/p chemotherapy Smoking greater than 20 pack years Past Surgical History: Procedure Laterality Date CYSTOSCOPY N/A 08/06/2023 CYSTOURETHROSCOPY performed by Aviva Humphries MD at [facility] OR [facility] HX BLADDER REPAIR N/A 08/06/2023 BLADDER REPAIR performed by Aviva Humphries MD at [facility] OR [facility] HX BUNIONECTOMY Bilateral 2009 HX SECTION 1982,1985,1994 HX PORTACATH PLACEMENT Right 2022 HX URETEROLYSIS Bilateral 08/06/2023 URETEROLYSIS performed by Aviva Humphries MD at [facility] OR [facility] OR BX/EXC LYMPH NODE OPEN SUPERFICIAL Right 08/06/2023 INGUINAL OR FEMORAL LYMPH NODE BIOPSY/EXCISION performed by Aviva Humphries MD at [facility] OR [facility] OR LAPAROSCOPY W/RMVL ADNEXAL STRUCTURES N/A 08/06/2023 SALPINGO-OOPHORECTOMY LAPAROSCOPIC performed by Aviva Humphries MD at [facility] OR [facility] OR OMNTC EPIPLOECTOMY RESCJ OMENTUM SPX N/A 08/06/2023 OMENTECTOMY performed by Aviva Humphries MD at [facility] OR [facility] OR TOTAL ABDOMINAL HYSTERECT W/WO RMVL TUBE OVARY N/A 08/06/2023 HYSTERECTOMY ABDOMINAL TOTAL performed by Aviva Humphries MD at [facility] OR [facility] OR UNLISTED PROCEDURE DIAPHRAGM N/A 08/06/2023 DIAPHRAGM BIOPSY performed by Aviva Humphries MD at [facility] OR [facility] Allergies Allergen Reactions Penicillins Rash Ciprofloxacin Rash Current Outpatient Medications: olaparib 100 mg tablet, Take 1 Tablet (100 mg) by mouth 2 times daily with 1 other olaparib prescription for 250 mg total., Disp: 60 Tablet, Rfl: 3 olaparib (Lynparza) 150 mg tablet, Take 1 Tablet (150 mg) by mouth 2 times daily with 1 other olaparib prescription for 250 mg total. (Patient taking differently: Take 250 mg by mouth 2 times daily.), Disp: 60 Tablet, Rfl: 3 losartan (COZAAR) 50 mg tablet, Take 50 [...] , Rfl: fluticasone propionate (FLONASE) 50 mcg/spray Ayr, Suspension nasal inhaler, Administer 2 Sprays in each nostril daily., Disp: , Rfl: omega-3 fatty acids-fish oil 300-1,000 mg Capsule, Take 2 Capsules by mouth daily., Disp: , Rfl: No current facility-administered medications for this visit. Facility-Administered Medications Ordered in Other Visits: sodium chloride flush injection 20 mL, 20 mL, IV, see admin instructions, Aviva Humphries MD, 20 mL at 06/02/24 1033 FAMILY HISTORY: Cancer-related family history includes Lung Cancer (age of onset: 60 - 69) in her father. No uterine, cervix, ovarian, breast or colon cancer OBHx: ; x3 PIPE LAYER HISTORY: Abnormal Pap: denies Menopause: 54ish; no PMB Social: Social History Tobacco Use Smoking Status Every Day Current packs/day: 0.50 Average packs/day: 0.5 packs/day for 35.0 years (17.5 ttl pk-yrs) Types: Cigarettes Smokeless Tobacco Never TOBACCO COUNSELING She was counseled to discontinue tobacco/nicotine use. Down to half pack per day. 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 BP 132/64 (BP Location: Left arm, Patient Position (BP): Sitting, BP Cuff Size: Adult) Pulse 91 Temp 97.6 ??F (36.4 ??C) (Oral) Resp 16 Ht 5' 6 (1.676 m) Wt 51.3 kg (113 lb 3.2 oz) LMP (LMP Unknown) SpO2 98% BMI 18.27 kg/m?? ECOG PS: 0 HEAD: Normocephalic, atraumatic. [...] PELVIC EXAM: deferred ASSESSMENT and PLAN: 1. Maintenance antineoplastic immunotherapy 2. Malignant neoplasm of ovary, unspecified laterality 3. Symptomatic anemia TYPE AND SCREEN INFUSION THERAPY Narda is a 63yo with Stage IVB clear cell carcinoma of [...] PETCT 05/31/24 inconclusive. Will repeat in 3 months, or sooner if symptoms worsen. -Continue maintenance bevacizumab 15mg/m2 q21 days + olaparib 300mg BID. -Labs and toxicity profile reviewed and acceptable for treatment. -Will give 1u pRBCs today due to symptomatic anemia. Return to clinic: f/u in [address] Humphries Thank you for involving [facility] Gynecologic Oncology in the care of this patient. Laisha Eldridge PA-C Gynecologic Oncology [facility] Attending Attestation I have not seen or examined the patient. I have reviewed the documentation by Laisha Eldridge PA-C and I agree with the plan. Aviva Humphries MD [facility] Gynecologic Oncology documented in this encounter Plan of Treatment Upcoming Encounters Date Type Department Care Team (Late st Contact Info) Description 08/04/2024 1:00 PM GANG SUPERVISOR PIPE LINES Appointment Randy [facility] Infusion Center 2nd Fl [address] [place] [address] Aviva Humphries MD [address] [facility] [place] [address] Infusion Chair 5, 2nd Floor [place] 08/25/2024 1:00 PM GANG SUPERVISOR PIPE LINES Office Visit [facility] Gynecologic Oncology [place] [address] [place] [address] Edilia Pettit NP [address] [place] [address] 08/25/2024 1:30 PM GANG SUPERVISOR PIPE LINES Appointment Randy [facility] Infusion Center 2nd Fl [address] [place] [address] Aviva Humphries MD [address] [place] [address] Infusion Chair 1, 2nd Floor [place] 09/01/2024 10:45 AM GANG SUPERVISOR PIPE LINES Appointment [facility] Nuclear Medicine [address] [place] [address] [id number] Edilia Pettit, SOAP GRINDER [address] [facility] [address] [place] [address] documented as of this encounter Results * TYPE AND SCREEN (06/02/2024 12:08 PM CDT) ABO GROUP A 06/02/2024 1:29 PM CDT [facility] RH (D) TYPE Positive 06/02/2024 1:29 PM CDT [facility] ANTIBODY SCREEN Negative 06/02/2024 1:29 PM CDT [facility] Blood Collection / Unknown 06/02/2024 12:08 PM CDT 06/02/2024 12:17 PM CDT Terra Eldridge PA-C BLOOD BANK OR DERABLES [facility] CLIA# [id number] [address] [facility] [address] documented in this encounter Visit Diagnoses Diagnosis Maintenance antineoplastic immunotherapy- Primary Encounter for antineoplastic immunotherapy Malignant neoplasm of ovary, unspecified laterality Symptomatic anemia documented in this encounter Care Teams Information Specialist Relationship Specialty Start Date End Date Shilo Soares MD [address] [place] [address] PCP - General Internal Medicine 04/24/23 documented as of this encounter
--- OUTSIDE RECORDS SUMMARY | 2024-07-26 23:44 | XMS_ITS | Encounter Summary ---
Author Organization [facility] Address [address] [place] [address] Care Team Providers Care Velvet Cutter Name Role Phone Shilo Soares MD Primary Care Provider [phone] Encounter Details Date Type Department Care Team (Late Contact Info) Description 05/11/2024 External Device Data STL ABSTRACTION Provider, [...] (Late Contact Info) Description 08/04/2024 1:00 PM TREASURY MANAGEMENT SALES CONSULTANT Appointment [facility] [address] [place] [address] Aviva Humphries MD [address] [place] [address] Infusion Chair 5, 2nd Floor Hall 08/25/2024 1:00 PM TREASURY MANAGEMENT SALES CONSULTANT Office Visit [facility] Gynecologic Oncology Hall [address] [place] [address] Edilia Pettit, CHELY [address] [facility] [address] [facility] [address] [place] [address] 08/25/2024 1:30 PM TREASURY MANAGEMENT SALES CONSULTANT Appointment [facility] 2nd Fl [address] [place] [address] Aviva Humphries MD [address] [place] [address] Infusion Chair 1, 2nd Floor [place] 09/01/2024 10:45 AM TREASURY MANAGEMENT SALES CONSULTANT Appointment [facility] Nuclear Medicine [address] [place] [address] [id number] Edilia Pettit, CHELY [address] [facility] [address] [place] [address] documented as of this encounter Visit Diagnoses Not on filedocumented in this encounter Care Teams Velvet Cutter Relationship Specialty Start Date End Date Shilo Soares MD [address] [place] [address] PCP - General Internal Medicine 04/24/23 documented as of this encounter
--- OUTSIDE RECORDS SUMMARY | 2024-07-26 23:44 | XMS_ITS | Encounter Summary ---
Author Organization [facility] Address [address] [place] [address] Care Team Providers Care Planograph Operator Name Role Phone Shilo Soares MD Primary Care Provider [phone] Encounter Details Date Type Department Care Team (Late Contact Info) Description 05/12/2024 External Device Data STL ABSTRACTION Provider, [...] (Late Contact Info) Description 08/04/2024 1:00 PM LABORATORY DIRECTOR Appointment [facility] In [address] [place] [address] Aviva Humphries MD [address] [place] [address] Infusion Chair 5, 2nd Floor Hall 08/25/2024 1:00 PM LABORATORY DIRECTOR Office Visit [facility] Gynecologic Oncology Hall [address] [place] [address] Edilia Pettit, CHELY [address] [facility] [address] [place] [address] 08/25/2024 1:30 PM LABORATORY DIRECTOR Appointment [facility] 2nd Fl [address] [place] [address] Aviva Humphries MD [address] [facility] [address] [place] [address] Infusion Chair 1, 2nd Floor [place] 09/01/2024 10:45 AM LABORATORY DIRECTOR Appointment [facility] [place] Nuclear Medicine [address] [place] [address] [id number] Edilia Pettit, CHELY [address] [facility] [address] [place] [address] documented as of this encounter Visit Diagnoses Not on filedocumented in this encounter Care Teams Planograph Operator Relationship Specialty Start Date End Date Shilo Soares MD [address] [place] [address] PCP - General Internal Medicine 04/24/23 documented as of this encounter
--- OUTSIDE RECORDS SUMMARY | 2024-07-26 23:45 | XMS_ITS | Encounter Summary ---
Author Organization [facility] Address [address] [place] [address] Care Team Providers Care Electrical And Instrument Mechanic Name Role Phone Shilo Soares MD Primary Care Provider [phone] Encounter Details Date Type Department Care Team (Late Contact Info) Description 04/03/2024 External Device Data STL ABSTRACTION Provider, Abstract [...] Contact Info) Description 08/04/2024 1:00 PM TREASURY ASSISTANT Appointment [facility] [place] [address] [place] [address] Aviva Humphries MD [address] [place] [address] Infusion Chair 5, 2nd Floor Hall 08/25/2024 1:00 PM TREASURY ASSISTANT Office Visit [facility] Gynecologic Oncology Hall [address] [place] [address] Edilia Pettit, CHELY [address] [facility] [address] [place] [address] 08/25/2024 1:30 PM TREASURY ASSISTANT Appointment [facility] 2nd Fl [address] [place] [address] Aviva Humphries MD [address] [place] [address] Infusion Chair 1, 2nd Floor [place] 09/01/2024 10:45 AM TREASURY ASSISTANT Appointment [facility] Nuclear Medicine [address] [place] [address] [id number] Edilia Pettit, CHELY [address] [facility] [address] [place] [address] documented as of this encounter Visit Diagnoses Not on filedocumented in this encounter Care Teams Electrical And Instrument Mechanic Relationship Specialty Start Date End Date Shilo Soares MD [address] [place] [address] PCP - General Internal Medicine 04/24/23 documented as of this encounter
--- OUTSIDE RECORDS SUMMARY | 2024-07-26 23:45 | XMS_ITS | Encounter Summary ---
Author Organization [facility] Address [address] [place] [address] Care Team Providers Care Hardwood Floor Installer Name Role Phone Shilo Soares MD Primary Care Provider [phone] Encounter Details Date Type Department Care Team (Late Contact Info) Description 04/12/2024 External Device Data STL ABSTRACTION Provider, Abstract [...] (Late Contact Info) Description 08/04/2024 1:00 PM PARENTING SKILLS INSTRUCTOR Appointment [facility] 2[facility] Nd [address] [place] [address] Aviva Humphries MD [address] [place] [address] Infusion Chair 5, 2nd Floor Hall 08/25/2024 1:00 PM PARENTING SKILLS INSTRUCTOR Office Visit [facility] Gynecologic Oncology Hall [address] [place] [address] Edilia Pettit, CHELY [address] [address] [place] [address] 08/25/2024 1:30 PM PARENTING SKILLS INSTRUCTOR Appointment [facility] 2nd Fl [address] [place] [address] Aviva Humphries MD [address] [facility] [address] [place] [address] Infusion Chair 1, 2nd Floor [place] 09/01/2024 10:45 AM PARENTING SKILLS INSTRUCTOR Appointment [facility] Nuclear Medicine [address] [place] [address] [id number] Edilia Pettit, CHELY [address] [facility] [address] [place] [address] documented as of this encounter Visit Diagnoses Not on filedocumented in this encounter Care Teams Hardwood Floor Installer Relationship Specialty Start Date End Date Shilo Soares MD [address] [place] [address] PCP - General Internal Medicine 04/24/23 documented as of this encounter
--- OUTSIDE RECORDS SUMMARY | 2024-07-26 23:45 | XMS_ITS | Encounter Summary ---
Author Organization [facility] Address [address] [place] [address] Care Team Providers Care Parts Finisher Name Role Phone Shilo Soares MD Primary Care Provider [phone] Encounter Details Date Type Department Care Team (Late Contact Info) Description 04/25/2024 External Device Data STL ABSTRACTION Provider, Abstract [...] (Late Contact Info) Description 08/04/2024 1:00 PM HAND PATTERN MARKER Appointment [facility] Nh [address] [place] [address] Aviva Humphries MD [address] [place] [address] Infusion Chair 5, 2nd Floor [place] 08/25/2024 1:00 PM HAND PATTERN MARKER Office Visit [facility] Gynecologic Oncology Hall [address] [place] [address] Edilia Pettit, CHELY [address] [facility] [address] [facility] [address] [place] [address] 08/25/2024 1:30 PM HAND PATTERN MARKER Appointment [facility] 2nd Fl [address] [place] [address] Aviva Humphries MD [address] [place] [address] Infusion Chair 1, 2nd Floor [place] 09/01/2024 10:45 AM HAND PATTERN MARKER Appointment [facility] Nuclear Medicine [address] [place] [address] [id number] Edilia Pettit, CHELY [address] [facility] [address] [place] [address] documented as of this encounter Visit Diagnoses Not on filedocumented in this encounter Care Teams Parts Finisher Relationship Specialty Start Date End Date Shilo Soares MD [address] [place] [address] PCP - General Internal Medicine 04/24/23 documented as of this encounter
--- OUTSIDE RECORDS SUMMARY | 2024-07-26 23:45 | XMS_ITS | Encounter Summary ---
Author Organization [facility] Address [address] [place] [address] Care Team Providers Care Roofer Vinyl Coating Name Role Phone Shilo Soares MD Primary Care Provider [phone] Encounter Details Date Type Department Care Team (Late Contact Info) Description 04/13/2024 External Device Data STL ABSTRACTION Provider, Abstract [...] (Late Contact Info) Description 08/04/2024 1:00 PM LAP CUTTER Appointment [facility] [place] [address] [place] [address] Aviva Humphries MD [address] [place] [address] Infusion Chair 5, 2nd Floor [place] 08/25/2024 1:00 PM LAP CUTTER Office Visit [facility] Gynecologic Oncology Hall [address] [place] [address] Edilia Pettit, CHELY [address] [facility] [address] [place] [address] 08/25/2024 1:30 PM LAP CUTTER Appointment [facility] 2nd Fl [address] [place] [address] Aviva Humphries MD [address] [facility] [address] [place] [address] Infusion Chair 1, 2nd Floor [place] 09/01/2024 10:45 AM LAP CUTTER Appointment [facility] Nuclear Medicine [address] [place] [address] [id number] Edilia Pettit, CHELY [address] [facility] [address] [place] [address] documented as of this encounter Visit Diagnoses Not on filedocumented in this encounter Care Teams Roofer Vinyl Coating Relationship Specialty Start Date End Date Shilo Soares MD [address] [place] [address] PCP - General Internal Medicine 04/24/23 documented as of this encounter
--- OUTSIDE RECORDS SUMMARY | 2024-07-26 23:45 | XMS_ITS | Encounter Summary ---
Author Organization [facility] Address [address] [place] [address] Care Team Providers Care Peer Health Promoter Name Role Phone Shilo Soares MD Primary Care Provider [phone] Encounter Details Date Type Department Care Team (Late Contact Info) Description 04/19/2024 External Device Data STL ABSTRACTION Provider, Abstract [...] (Late Contact Info) Description 08/04/2024 1:00 PM SHIM PLUG CUTTER Appointment [facility] 2[facility] [place] [address] [place] [address] Aviva Humphries MD [address] [place] [address] Infusion Chair 5, 2nd Floor [place] 08/25/2024 1:00 PM SHIM PLUG CUTTER Office Visit [facility] Gynecologic Oncology Hall [address] [place] [address] Edilia Pettit, CHELY [address] [facility] [address] [place] [address] 08/25/2024 1:30 PM SHIM PLUG CUTTER Appointment [facility] 2nd Fl [address] [place] [address] Aviva Humphries MD [address] [place] [address] Infusion Chair 1, 2nd Floor [place] 09/01/2024 10:45 AM SHIM PLUG CUTTER Appointment [facility] Nuclear Medicine [address] [place] [address] [id number] Edilia Pettit, CHELY [address] [facility] [address] [place] [address] documented as of this encounter Visit Diagnoses Not on filedocumented in this encounter Care Teams Peer Health Promoter Relationship Specialty Start Date End Date Shilo Soares MD [address] [place] [address] PCP - General Internal Medicine 04/24/23 documented as of this encounter
--- OUTSIDE RECORDS SUMMARY | 2024-07-26 23:45 | XMS_ITS | Encounter Summary ---
Author Organization [facility] Address [address] [place] [address] Care Team Providers Care Home Care Specialist Name Role Phone Shilo Soares MD Primary Care Provider [phone] Encounter Details Date Type Department Care Team (Late Contact Info) Description 04/17/2024 External Device Data STL ABSTRACTION Provider, Abstract [...] (Late Contact Info) Description 08/04/2024 1:00 PM JOURNEYMAN WELDER Appointment [facility] [place] [address] [place] [address] Aviva Humphries MD [address] [place] [address] Infusion Chair 5, 2nd Floor Hall 08/25/2024 1:00 PM JOURNEYMAN WELDER Office Visit [facility] Gynecologic Oncology Hall [address] [place] [address] Edilia Pettit, CHELY [address] [facility] [address] [place] [address] 08/25/2024 1:30 PM JOURNEYMAN WELDER Appointment [facility] 2nd Fl [address] [place] [address] Aviva Humphries MD [address] [facility] [address] [place] [address] Infusion Chair 1, 2nd Floor [place] 09/01/2024 10:45 AM JOURNEYMAN WELDER Appointment [facility] Nuclear Medicine [address] [place] [address] [id number] Edilia Pettit, CHELY [address] [facility] [address] [place] [address] documented as of this encounter Visit Diagnoses Not on filedocumented in this encounter Care Teams Home Care Specialist Relationship Specialty Start Date End Date Shilo Soares MD [address] [place] [address] PCP - General Internal Medicine 04/24/23 documented as of this encounter
--- OUTSIDE RECORDS SUMMARY | 2024-07-26 23:45 | XMS_ITS | Encounter Summary ---
Author Organization [facility] Address [address] [place] [address] Care Team Providers Care Exhaust Emissions Inspector Name Role Phone Shilo Soares MD Primary Care Provider [phone] Encounter Details Date Type Department Care Team (Late Contact Info) Description 04/04/2024 External Device Data STL ABSTRACTION Provider, Abstract [...] (Late Contact Info) Description 08/04/2024 1:00 PM ENERGY PROJECTS LEAD Appointment [facility] 2[facility] [place] [address] [place] [address] Aviva Humphries MD [address] [place] [address] Infusion Chair 5, 2nd Floor [place] 08/25/2024 1:00 PM ENERGY PROJECTS LEAD Office Visit [facility] Gynecologic Oncology Hall [address] [place] [address] Edilia Pettit, CHELY [address] [facility] [address] [place] [address] 08/25/2024 1:30 PM ENERGY PROJECTS LEAD Appointment [facility] 2nd Fl [address] [place] [address] Aviva Humphries MD [address] [place] [address] Infusion Chair 1, 2nd Floor [place] 09/01/2024 10:45 AM ENERGY PROJECTS LEAD Appointment [facility] Nuclear Medicine [address] [place] [address] [id number] Edilia Pettit, CHELY [address] [facility] [address] [place] [address] documented as of this encounter Visit Diagnoses Not on filedocumented in this encounter Care Teams Exhaust Emissions Inspector Relationship Specialty Start Date End Date Shilo Soares MD [address] [place] [address] PCP - General Internal Medicine 04/24/23 documented as of this encounter
--- OUTSIDE RECORDS SUMMARY | 2024-07-26 23:45 | XMS_ITS | Encounter Summary ---
Author Organization [facility] Address [address] [place] [address] Care Team Providers Care Sign Language Instructor Name Role Phone Shilo Soares MD Primary Care Provider [phone] Encounter Details Date Type Department Care Team (Late Contact Info) Description 04/06/2024 External Device Data STL ABSTRACTION Provider, Abstract [...] (Late Contact Info) Description 08/04/2024 1:00 PM HOTEL OR MOTEL ROOM SERVICE SUPERVISOR Appointment [facility] 2[facility] [place] [address] [place] [address] Aviva Humphries MD [address] [place] [address] Infusion Chair 5, 2nd Floor [place] 08/25/2024 1:00 PM HOTEL OR MOTEL ROOM SERVICE SUPERVISOR Office Visit [facility] Gynecologic Oncology Hall [address] [place] [address] Edilai Pettit, CHELY [address] [facility] [address] [place] [address] 08/25/2024 1:30 PM HOTEL OR MOTEL ROOM SERVICE SUPERVISOR Appointment [facility] 2nd Fl [address] [place] [address] Aviva Humphries MD [address] [address] [facility] [address] [place] [address] Infusion Chair 1, 2nd Floor [place] 09/01/2024 10:45 AM HOTEL OR MOTEL ROOM SERVICE SUPERVISOR Appointment [facility] Nuclear Medicine [address] [place] [address] [id number] Edilia Pettit, CHELY [address] [facility] [address] [place] [address] documented as of this encounter Visit Diagnoses Not on filedocumented in this encounter Care Teams Sign Language Instructor Relationship Specialty Start Date End Date Shilo Soares MD [address] [place] [address] PCP - General Internal Medicine 04/24/23 documented as of this encounter
--- OUTSIDE RECORDS SUMMARY | 2024-07-26 23:45 | XMS_ITS | Encounter Summary ---
Author Organization [facility] Address [address] [place] [address] Care Team Providers Care Roller Machine Operator Name Role Phone Shilo Soares MD Primary Care Provider [phone] Encounter Details Date Type Department Care Team (Late Contact Info) Description 04/21/2024 External Device Data STL ABSTRACTION Provider, Abstract [...] (Late Contact Info) Description 08/04/2024 1:00 PM BUSINESS RISK ANALYST Appointment [facility] [address] [place] [address] Aviva Humphries MD [address] [place] [address] Infusion Chair 5, 2nd Floor Hall 08/25/2024 1:00 PM BUSINESS RISK ANALYST Office Visit [facility] Gynecologic Oncology Hall [address] [place] [address] Edilia Pettit, CHELY [address] [facility] [address] [place] [address] 08/25/2024 1:30 PM BUSINESS RISK ANALYST Appointment [facility] 2nd Fl [address] [place] [address] Aviva Humphries MD [address] [facility] [address] [place] [address] Infusion Chair 1, 2nd Floor [place] 09/01/2024 10:45 AM BUSINESS RISK ANALYST Appointment [facility] Nuclear Medicine [address] [place] [address] [id number] Edilia Pettit, CHELY [address] [facility] [address] [place] [address] documented as of this encounter Visit Diagnoses Not on filedocumented in this encounter Care Teams Roller Machine Operator Relationship Specialty Start Date End Date Shilo Soares MD [address] [place] [address] PCP - General Internal Medicine 04/24/23 documented as of this encounter
--- OUTSIDE RECORDS SUMMARY | 2024-07-26 23:45 | XMS_ITS | Encounter Summary ---
Author Organization [facility] Address [address] [place] [address] Care Team Providers Care Reserves Clerk Name Role Phone Shilo Soares MD Primary Care Provider [phone] Encounter Details Date Type Department Care Team (Late Contact Info) Description 04/10/2024 External Device Data STL ABSTRACTION Provider, Abstract [...] (Late Contact Info) Description 08/04/2024 1:00 PM AUTOMOTIVE MECHANIC Appointment [facility] [place] [address] [place] [address] Aviva Humphries MD [address] [place] [address] Infusion Chair 5, 2nd Floor Hall 08/25/2024 1:00 PM AUTOMOTIVE MECHANIC Office Visit [facility] Gynecologic Oncology Hall [address] [place] [address] Edilia Pettit, CHELY [address] [facility] [facility] [address] [place] [address] 08/25/2024 1:30 PM AUTOMOTIVE MECHANIC Appointment [facility] 2nd Fl [address] [place] [address] Aviva Humphries MD [address] [facility] [address] [place] [address] Infusion Chair 1, 2nd Floor [place] 09/01/2024 10:45 AM AUTOMOTIVE MECHANIC Appointment [facility] Nuclear Medicine [address] [place] [address] [id number] Edilia Pettit, CHELY [address] [facility] [address] [place] [address] documented as of this encounter Visit Diagnoses Not on filedocumented in this encounter Care Teams Reserves Clerk Relationship Specialty Start Date End Date Shilo Soares MD [address] [place] [address] PCP - General Internal Medicine 04/24/23 documented as of this encounter
--- OUTSIDE RECORDS SUMMARY | 2024-07-26 23:45 | XMS_ITS | Encounter Summary ---
Author Organization [facility] Address [address] [place] [address] Care Team Providers Care Fulfillment Associate Name Role Phone Shilo Soares MD Primary Care Provider [phone] Encounter Details Date Type Department Care Team (Late Contact Info) Description 04/02/2024 External Device Data STL ABSTRACTION Provider, Abstract [...] (Late Contact Info) Description 08/04/2024 1:00 PM HOURLY CAREGIVER Appointment [facility] [place] [address] [place] [address] Aviva Humphries MD [address] [place] [address] Infusion Chair 5, 2nd Floor [place] 08/25/2024 1:00 PM HOURLY CAREGIVER Office Visit [facility] Gynecologic Oncology Hall [address] [place] [address] Edilia Pettit, CHELY [address] [address] [address] [place] [address] 08/25/2024 1:30 PM HOURLY CAREGIVER Appointment [facility] 2nd Fl [address] [place] [address] Aviva Humphries MD [address] [place] [address] Infusion Chair 1, 2nd Floor [place] 09/01/2024 10:45 AM HOURLY CAREGIVER Appointment [facility] Nuclear Medicine [address] [place] [address] [id number] Edilia Pettit, CHELY [address] [facility] [address] [place] [address] documented as of this encounter Visit Diagnoses Not on filedocumented in this encounter Care Teams Fulfillment Associate Relationship Specialty Start Date End Date Shilo Soares MD [address] [place] [address] PCP - General Internal Medicine 04/24/23 documented as of this encounter
--- OUTSIDE RECORDS SUMMARY | 2024-07-26 23:45 | XMS_ITS | Encounter Summary ---
Author Organization [facility] Address [address] [place] [address] Care Team Providers Care Sueding And Buffing Machine Operator Name Role Phone Shilo Soares MD Primary Care Provider [phone] Encounter Details Date Type Department Care Team (Late Contact Info) Description 04/01/2024 External Device Data STL ABSTRACTION Provider, Abstract [...] (Late Contact Info) Description 08/04/2024 1:00 PM ROLLED SEAT TRIMMER Appointment [facility] 2nd Me [address] [place] [address] Aviva Humphries MD [address] [place] [address] Infusion Chair 5, 2nd Floor Hall 08/25/2024 1:00 PM ROLLED SEAT TRIMMER Office Visit [facility] Gynecologic Oncology Hall [address] [place] [address] Edilia Pettit, CHELY [address] [place] [address] 08/25/2024 1:30 PM ROLLED SEAT TRIMMER Appointment [facility] 2nd Fl [address] [place] [address] Aviva Humphries MD [address] [place] [address] Infusion Chair 1, 2nd Floor [place] 09/01/2024 10:45 AM ROLLED SEAT TRIMMER Appointment Randy [facility] Nuclear Medicine [address] [place] [address] [id number] Edilia Pettit, CHELY [address] [facility] [address] [place] [address] documented as of this encounter Visit Diagnoses Not on filedocumented in this encounter Care Teams Sueding And Buffing Machine Operator Relationship Specialty Start Date End Date Shilo Soares MD [address] [place] [address] PCP - General Internal Medicine 04/24/23 documented as of this encounter
--- OUTSIDE RECORDS SUMMARY | 2024-07-26 23:45 | XMS_ITS | Encounter Summary ---
Author Organization [facility] Address [address] [place] [address] Care Team Providers Care Proof Machine Operator Name Role Phone Shilo Soares MD Primary Care Provider [phone] Encounter Details Date Type Department Care Team (Latest Contact Info) Description 04/21/2024 10:26 AM CDT - 04/21/2024 11:59 PM CDT Hospital Encounter [facility] [place] [facility] [address] [place] [address] Aviva Humphries MD [address] [place] [address] Discharge Disposition: Home or Self [...] bedtime. 02/26/2021 fluticasone propionate (FLONASE) 50 mcg/spray Buna, Suspension nasal inhaler Administer 2 Sprays in each nostril daily. omega-3 fatty acids-fish oil 300-1,000 mg Capsule Take 2 Capsules by mouth daily. olaparib (Lynparza) 150 mg tablet take 2 tablets by mouth 2 times a day 120 Tablet 3 02/15/2024 05/12/2024 documented as of this encounter Plan of Treatment Upcoming Encounters Date Type Department Care Team (Late st Contact Info) Description 08/04/2024 1:00 PM QUALITY ASSURANCE MONITOR BODY Appointment [facility] [place] [facility] 2nd Fl [address] [place] [address] Aviva Humphries MD [address] [place] [address] Infusion Chair 5, 2nd Floor Hall 08/25/2024 1:00 PM QUALITY ASSURANCE MONITOR BODY Office Visit [facility] Gynecologic Oncology Hall [address] [place] [address] Edilia Pettit NP [address] [facility] [place] [address] 08/25/2024 1:30 PM QUALITY ASSURANCE MONITOR BODY Appointment Randy Proctor [facility] [address] [place] [address] Aviva Humphries MD [address] [facility] [address] [place] [address] Infusion Chair 1, 2nd Floor Hall 09/01/2024 10:45 AM QUALITY ASSURANCE MONITOR BODY Appointment Randy Proctor [facility] Nuclear Medicine [address] [place] [address] [id number] Edilia Pettit, CHELY [address] [facility] [address] [place] [address] documented as of this encounter Procedures Procedure Name Priority Date/Time Associated Diagnosis Comments DIFFERENTIAL, MANUAL Stat 04/21/2024 10:35 AM CDT Malignant neoplasm of ovary, unspecified laterality URINALYSIS WITH REFLEX CULTURE Stat 04/21/2024 10:35 AM CDT Malignant neoplasm of ovary, unspecified laterality CBC WITH DIFFERENTIAL Stat 04/21/2024 10:35 AM CDT Malignant neoplasm of ovary, unspecified laterality COMPREHENSIVE METABOLIC PANEL Stat 04/21/2024 10:35 AM CDT Malignant neoplasm of ovary, unspecified laterality CANCER ANTIGEN 125 Routine 04/21/2024 10 :34 AM CDT Malignant neoplasm of ovary, unspecified laterality documented in this encounter Results * (ABNORMAL) MANUAL DIFFERENTIAL (04/21/2024 10:35 AM CDT) ADJUSTED WBC 3.8 K/uL 04/21/2024 11:34 AM CDT [facility] - . [facility] NRBC PER 100 WBC 2(H) <=0 /100 WBC 04/21/2024 11:34 AM CDT [facility] SEGMENTED NEUTROPHILS 52 % 04/21/2024 11:34 AM CDT [facility] LYMPHOCYTES RELATIVE 42(L) 43 - 53 % 04/21/2024 11:34 AM CDT [facility] ATYPICAL LYMPHOCYTES RELATIVE 1 0 - 5 % 04/21/2024 11:34 AM [facility] MONOCYTES RELATIVE 3 % 04/21/2024 11:34 AM [facility] EOSINOPHILS RELATIVE 2 % 04/21/2024 11:34 AM CDT [facility] NEUTROPHILS ABSOLUTE COUNT 1.98 1.90 - 7.00 K/uL 04/21/2024 11:34 AM CDT [facility] LYMPHOCYTES ABSOLUTE 1.60 0.70 - 4.50 K/uL 04/21/2024 11:34 AM [facility] MONOCYTES ABSOLUTE 0.11 0.10 - 1.30 K/uL 04/21/2024 11:34 AM [employer] EOSINOPHILS ABSOLUTE 0.08 0.00 - 0.70 K/uL 04/21/2024 11:34 AM [employer] TOTAL CELLS COUNTED IN DIFF 100 04/21/2024 11:34 AM [facility] - . [facility] PLATELET EST. Consistent w Count 04/21/2024 11:34 AM [employer] ANISOCYTOSIS 1+ /hpf 04/21/2024 11:34 AM CDT [facility] MACROCYTES 1+ /hpf 04/21/2024 11:34 AM [employer] [facility] Blood Collection / Unknown 04/21/2024 10:35 AM CDT 04/21/2024 10:49 AM CDT Aviva Humphries MD HEMATOLOGY ORDERABLE S COM [facility] - [facility] YURI# [id number] 5 SKarely [facility] [place] [address] * (ABNORMAL) COMPREHENSIVE METABOLIC PANEL (04/21/2024 10:35 AM CDT) [facility] SODIUM 139 136 - 145 mmol/L 04/21/2024 11:30 AM T [facility] POTASSIUM 3.8 3.5 - 5.0 mmol/L 04/21/2024 11:30 AM T [facility] CHLORIDE 105 98 - 107 mmol/L 04/21/2024 11:30 AM T [facility] CO2 24 22 - 29 mmol/L 04/21/2024 11:30 AM T [facility] CALCIUM 9.0 8.6 - 10.2 mg/dL 04/21/2024 11:30 AM T [facility] BUN 11 8 - 23 mg/dL 04/21/2024 11:30 AM T [facility] CREATININE 0.94 0.51 - 0.95 mg/dL 04/21/2024 11:30 AM T [facility] GLUCOSE 130(H) 74 - 99 mg/dL 04/21/2024 11:30 AM T [facility] - [facility] TOTAL PROTEIN 6.9 6.7 - 8.6 g/dL 04/21/2024 11:30 AM T [facility] - [facility] ALBUMIN 4.2 3.5 - 5.2 g/dL 04/21/2024 11:30 AM T [facility] - [facility] BILIRUBIN TOTAL 0.5 0.2 - 1.1 mg/dL 04/21/2024 11:30 AM T [facility] ALKALINE PHOSPHATASE 78 35 - 104 U/L 04/21/2024 11:30 AM CDT [facility] AST 22 <33 U/L 04/21/2024 11:30 AM [facility] ALT 19 <34 U/L 04/21/2024 11:30 AM T [facility] GFR >60 >=60 mL/min/1.7 3 sq meter 04/21/2024 11:30 AM [facility] Comment:eGFR calculated with 2020 CKD-EPI equation. Vegetarian diet, extremely high or low muscle mass, and may affect results. Cystatin C with Glomerular Filtration Rate is a suitable alternative for these patients. ANION GAP 10 8 - 16 mmol/L 04/21/2024 11:30 AM [facility] Blood Collection / Unknown 04/21/2024 10:35 AM CDT 04/21/2024 10:52 AM CDT [facility] - 04/21/2024 11:30 AM CDT Samples containing indocyanine green cause interferences on Total and/or Direct Bilirubin and must not be measured. Aviva Humphries MD CHEMISTRY ORDERABLES [facility]# [id number] 5 [facility] [place] [address] * (ABNORMAL) CBC WITH DIFFERENTIAL (04/21/2024 10:35 AM CDT) Pathologist [facility] WBC 3.8(L) 4.0 - 9.8 K/uL 04/21/2024 10:55 AM T [facility] NRBCS 1 % 04/21/2024 10:55 AM T [facility] RBC 2.11(L) 3.90 - 4.90 M/uL 04/21/2024 10:55 AM T [facility] HEMOGLOBIN 8.6(L) 11.8 - 14.8 g/dL 04/21/2024 10:55 AM T [facility] HEMATOCRIT 25.6(L) 35.5 - 44.0 % 04/21/2024 10:55 AM T [facility] LABORATORY [facility] MCV 121.3(H) 82.0 - 99.0 fL 04/21/2024 10:55 AM CDT [facility] LABORATORY [facility] MCH 40.8(H) 27.2 - 32.6 pg 04/21/2024 10:55 AM T [facility] [email or web address] [facility] MCHC 33.6 31.5 - 35.5 g/dL 04/21/2024 10:55 AM CDT [facility] LABORATORY [facility] RDW 19.4(H) 11.5 - 14.5 % 04/21/2024 10:55 AM T [facility] [email or web address] [facility] RDW-STDEV 87.2(H) 37.1 - 48.7 fL 04/21/2024 10:55 AM T [facility] LABORATORY [facility] PLATELETS 123(L) 140 - 350 K/uL 04/21/2024 10:55 AM [facility] [email or web address] [facility] MPV 11.4 9.3 - 12.4 fL 04/21/2024 10:55 AM [facility] [email or web address] [facility] Blood Collection / Unknown 04/21/2024 10:35 AM CDT 04/21/2024 10:49 AM CDT Aviva Humphries MD HEMATOLOGY ORDERABLE S [facility] [email or web address] [facility]# [id number] [address] [facility] [place] [address] * (ABNORMAL) URINALYSIS WITH REFLEX CULTURE (04/21/2024 10:35 AM CDT) COLOR UA Colorless(A ) Pale to Dark Yellow 04/21/2024 11:05 AM [facility] [email or web address] [facility] CLARITY UA Clear Clear 04/21/2024 11:05 AM [facility] LABORATORY [facility] SPECIFIC GRAVITY UA 1.003 1.003 - 1.035 04/21/2024 11:05 AM [facility] LABORATORY SERVICES - [facility] PH UA 6.0 5.0 - 8.0 04/21/2024 11:05 AM CDT [facility]ATORY SERVICES [facility] LEUKOCYTE ESTERASE UA Negative Negative 04/21/2024 11:05 AM T [facility] NITRITE UA Negative Negative 04/21/2024 11:05 AM T [facility] PROTEIN UA Negative Negative 04/21/2024 11:05 AM T [facility] GLUCOSE UA Negative Negative 04/21/2024 11:05 AM CDT [facility] KETONES UA Negative Negative 04/21/2024 11:05 AM T [facility] UROBILINOGEN UA Normal <2.0 mg/dL 11:05 AM T [facility] BILIRUBIN UA Negative Negative 04/21/2024 11:05 AM T [facility] BLOOD UA Negative Negative 04/21/2024 11:05 AM T [facility] LABORATORY [facility] Urine URINE SPECIMEN OBTAINED BY CLEAN CATCH PROCEDURE / Unknown Collection / Unknown 04/21/2024 10:35 AM CDT 04/21/2024 10:53 AM CDT Aviva Humphries MD URINE ORDERABLES [facility]# [id number] 5 [place] [address] * CANCER ANTIGEN 125 (04/21/2024 10:34 AM CDT) CA 125 6 <35 U/mL [facility] Comment: This test was performed using the Siemens Chemiluminescent method. Values obtained from different assay methods cannot be used interchangeably. CA 125 levels, regardless of value, should not be interpreted as absolute evidence of the presence or absence of disease. Test Performed at: [facility] [address] [place] ??[phone] Radha Perez MD Blood 04/21/2024 10:3 4 AM CDT 04/21/2024 11:06 AM CDT Aviva Hupmhries MD CHEMISTRY ORDERABLES [facility] [phone] [facility] [facility] [address] [place] [address] documented in this encounter Visit Diagnoses Diagnosis Malignant neoplasm of ovary, unspecified laterality documented in this encounter Administered Medications Inactive Administered Medications - up to 3 most recent administrations Medication Order MAR Action Action Date Dose Rate Site sodium chloride flush injection 20 mL 20 mL, IV, SEE ADMIN INSTRUCTIONS, Starting on Peace 04/21/24 at 1036, Until 04/22/24 at 0309, Routine Given 04/21/2024 10:45 AM CDT 20 mL documented in this encounter Care Teams Proof Machine Operator Relationship Specialty Start Date End Date Shilo Soares MD [address] [place] [address] PCP - General Internal Medicine 04/24/23 documented as of this encounter
--- OUTSIDE RECORDS SUMMARY | 2024-07-26 23:45 | XMS_ITS | Encounter Summary ---
Author Organization [facility] Address [address] [place] [address] Care Team Providers Care Cotton Ball Bagger Name Role Phone Shilo Soares MD Primary Care Provider [phone] Encounter Details Date Type Department Care Team (Late Contact Info) Description 04/26/2024 External Device Data STL ABSTRACTION Provider, [...] (Late Contact Info) Description 08/04/2024 1:00 PM CROP ADJUSTER Appointment [facility] 2nd Me [address] [place] [address] Aviva Humphries MD [address] [place] [address] Infusion Chair 5, 2nd Floor Hall 08/25/2024 1:00 PM CROP ADJUSTER Office Visit [facility] Gynecologic Oncology Hall [address] [place] [address] Edilia Pettit, CHELY [address] [place] [address] 08/25/2024 1:30 PM CROP ADJUSTER Appointment [facility] 2nd Fl [address] [place] [address] Aviva Humphries MD [address] [place] [address] Infusion Chair 1, 2nd Floor [place] 09/01/2024 10:45 AM CROP ADJUSTER Appointment Randy Hall Cancer [facility] Nuclear Medicine [address] [place] [address] [id number] Edilia Pettit, CHELY [address] [facility] [facility] [address] [place] [address] documented as of this encounter Visit Diagnoses Not on filedocumented in this encounter Care Teams Cotton Ball Bagger Relationship Specialty Start Date End Date Shilo Soares MD [address] [place] [address] PCP - General Internal Medicine 04/24/23 documented as of this encounter
--- OUTSIDE RECORDS SUMMARY | 2024-07-26 23:45 | XMS_ITS | Encounter Summary ---
Author Organization [facility] Address [address] [place] [address] Care Team Providers Care Printed Forms Proofreader Name Role Phone Shilo Soares MD Primary Care Provider [phone] Encounter Details Date Type Department Care Team (Late Contact Info) Description 04/07/2024 External Device Data STL ABSTRACTION Provider, Abstract [...] (Late Contact Info) Description 08/04/2024 1:00 PM WEB CONTENT EDITOR Appointment [facility] 2nd Tn [address] [place] [address] Aviva Humphries MD [address] [place] [address] Infusion Chair 5, 2nd Floor Hall 08/25/2024 1:00 PM WEB CONTENT EDITOR Office Visit [facility] Gynecologic Oncology Hall [address] [place] [address] Edilia Pettit, CHELY [address] [address] [place] [address] 08/25/2024 1:30 PM WEB CONTENT EDITOR Appointment [facility] 2nd Fl [address] [place] [address] Aviva Humphries MD [address] [place] [address] Infusion Chair 1, 2nd Floor [place] 09/01/2024 10:45 AM WEB CONTENT EDITOR Appointment Randy Hall [facility] Nuclear Medicine [address] [place] [address] [id number] Edilia Pettit, CHELY [address] [facility] [address] [place] [address] documented as of this encounter Visit Diagnoses Not on filedocumented in this encounter Care Teams Printed Forms Proofreader Relationship Specialty Start Date End Date Shilo Soares MD [address] [place] [address] PCP - General Internal Medicine 04/24/23 documented as of this encounter
--- OUTSIDE RECORDS SUMMARY | 2024-07-26 23:45 | XMS_ITS | Encounter Summary ---
Author Organization [facility] Address [address] [place] [address] Care Team Providers Care Spiral Tube Winder Name Role Phone Shilo Soares MD Primary Care Provider [phone] Encounter Details Date Type Department Care Team (Late Contact Info) Description 03/31/2024 External Device Data STL ABSTRACTION Provider, Abstract [...] (Late Contact Info) Description 08/04/2024 1:00 PM VTC TECHNICIAN Appointment [facility] 2nd Wy [address] [place] [address] Aviva Humphries MD [address] [place] [address] Infusion Chair 5, 2nd Floor Hall 08/25/2024 1:00 PM VTC TECHNICIAN Office Visit [facility] Gynecologic Oncology Hall [address] [place] [address] Edilia Pettit, CHELY [address] [place] [address] 08/25/2024 1:30 PM VTC TECHNICIAN Appointment [facility] 2nd Fl [address] [place] [address] Aviva Humphries MD [address] [place] [address] Infusion Chair 1, 2nd Floor [place] 09/01/2024 10:45 AM VTC TECHNICIAN Appointment Randy Hall Cancer [facility] Nuclear Medicine [address] [place] [address] [id number] Edilia Pettit, CHELY [address] [facility] [address] [place] [address] documented as of this encounter Visit Diagnoses Not on filedocumented in this encounter Care Teams Spiral Tube Winder Relationship Specialty Start Date End Date Shilo Soares MD [address] [place] [address] PCP - General Internal Medicine 04/24/23 documented as of this encounter
--- OUTSIDE RECORDS SUMMARY | 2024-07-26 23:45 | XMS_ITS | Encounter Summary ---
Author Organization [facility] Address [address] [place] [address] Care Team Providers Care Coal And Ash Supervisor Name Role Phone Shilo Soares MD Primary Care Provider [phone] Encounter Details Date Type Department Care Team (Late Contact Info) Description 04/15/2024 External Device Data STL ABSTRACTION Provider, Abstract [...] (Late Contact Info) Description 08/04/2024 1:00 PM ROCK LATHER Appointment [facility] 2nd Wi [address] [place] [address] Aviva Humphries MD [address] [place] [address] Infusion Chair 5, 2nd Floor Hall 08/25/2024 1:00 PM ROCK LATHER Office Visit [facility] Gynecologic Oncology Hall [address] [place] [address] Edilia Pettit, CHELY [address] [address] [place] [address] 08/25/2024 1:30 PM ROCK LATHER Appointment [facility] 2nd Fl [address] [place] [address] Aviva Humphries MD [address] [place] [address] Infusion Chair 1, 2nd Floor [place] 09/01/2024 10:45 AM ROCK LATHER Appointment Randy Hall [facility] Nuclear Medicine [address] [place] [address] [id number] Edilia Pettit, CHELY [address] [facility] [address] [place] [address] documented as of this encounter Visit Diagnoses Not on filedocumented in this encounter Care Teams Coal And Ash Supervisor Relationship Specialty Start Date End Date Shilo Soares MD [address] [place] [address] PCP - General Internal Medicine 04/24/23 documented as of this encounter
--- OUTSIDE RECORDS SUMMARY | 2024-07-26 23:45 | XMS_ITS | Encounter Summary ---
Author Organization [facility] Address [address] [place] [address] Care Team Providers Care Stove Mechanic Name Role Phone Shilo Soares MD Primary Care Provider [phone] Encounter Details Date Type Department Care Team (Late Contact Info) Description 04/23/2024 External Device Data STL ABSTRACTION Provider, Abstract [...] (Late Contact Info) Description 08/04/2024 1:00 PM CORRESPONDENCE SPECIALIST Appointment [facility] 2nd In [address] [place] [address] Aviva Humphries MD [address] [place] [address] Infusion Chair 5, 2nd Floor Hall 08/25/2024 1:00 PM CORRESPONDENCE SPECIALIST Office Visit [facility] Gynecologic Oncology Hall [address] [place] [address] Edilia Pettit, CHELY [address] [facility] [place] [address] 08/25/2024 1:30 PM CORRESPONDENCE SPECIALIST Appointment [facility] 2nd Fl [address] [place] [address] Aviva Humphries MD [address] [place] [address] Infusion Chair 1, 2nd Floor [place] 09/01/2024 10:45 AM CORRESPONDENCE SPECIALIST Appointment Randy Hall [facility] Nuclear Medicine [address] [place] [address] [id number] Edilia Pettit, CHELY [address] [facility] [address] [place] [address] documented as of this encounter Visit Diagnoses Not on filedocumented in this encounter Care Teams Stove Mechanic Relationship Specialty Start Date End Date Shilo Soares MD [address] [place] [address] PCP - General Internal Medicine 04/24/23 documented as of this encounter
--- OUTSIDE RECORDS SUMMARY | 2024-07-26 23:45 | XMS_ITS | Encounter Summary ---
Author Organization [facility] Address [address] [place] [address] Care Team Providers Care Mold Filling Operator Name Role Phone Shilo Soares MD Primary Care Provider [phone] Encounter Details Date Type Department Care Team (Late Contact Info) Description 04/08/2024 External Device Data STL ABSTRACTION Provider, Abstract [...] (Late Contact Info) Description 08/04/2024 1:00 PM RN PRIVATE DUTY Appointment [facility] [place] [address] [place] [address] Aviva Humphries MD [address] [place] [address] Infusion Chair 5, 2nd Floor Hall 08/25/2024 1:00 PM RN PRIVATE DUTY Office Visit [facility] Gynecologic Oncology Hall [address] [place] [address] Edilia Pettit, CHELY [address] [place] [phone] 08/25/2024 1:30 PM RN PRIVATE DUTY Appointment [facility] 2nd Fl [address] [place] [address] Aviva Humphries MD [address] [place] [address] Infusion Chair 1, 2nd Floor [place] 09/01/2024 10:45 AM RN PRIVATE DUTY Appointment [facility] Nuclear Medicine [address] [place] [address] [id number] Edilia Pettit, CHELY [address] [facility] [address] [place] [address] documented as of this encounter Visit Diagnoses Not on filedocumented in this encounter Care Teams Mold Filling Operator Relationship Specialty Start Date End Date Shilo Soares MD [address] [place] [address] PCP - General Internal Medicine 04/24/23 documented as of this encounter
--- OUTSIDE RECORDS SUMMARY | 2024-07-26 23:45 | XMS_ITS | Encounter Summary ---
Author Organization [facility] Address [address] [place] [address] Care Team Providers Care Criminal Analyst Name Role Phone Shilo Soares MD Primary Care Provider [phone] Encounter Details Date Type Department Care Team (Late Contact Info) Description 04/20/2024 External Device Data STL ABSTRACTION Provider, Abstract [...] (Late Contact Info) Description 08/04/2024 1:00 PM LENO SEWER Appointment [facility] 2nd [place] [address] [place] [address] Aviva Humphries MD [address] [place] [address] Infusion Chair 5, 2nd Floor Hall 08/25/2024 1:00 PM LENO SEWER Office Visit [facility] Gynecologic Oncology Hall [address] [place] [address] Edilia Pettit, CHELY [address] [place] [address] 08/25/2024 1:30 PM LENO SEWER Appointment [facility] 2nd Fl [address] [place] [address] Aviva Humphries MD [address] [place] [address] Infusion Chair 1, 2nd Floor [place] 09/01/2024 10:45 AM LENO SEWER Appointment [facility] Nuclear Medicine [address] [place] [address] [id number] Edilia Pettit, CHELY [address] [facility] [address] [place] [address] documented as of this encounter Visit Diagnoses Not on filedocumented in this encounter Care Teams Criminal Analyst Relationship Specialty Start Date End Date Shilo Soares MD [address] [place] [address] PCP - General Internal Medicine 04/24/23 documented as of this encounter
--- OUTSIDE RECORDS SUMMARY | 2024-07-26 23:45 | XMS_ITS | Encounter Summary ---
Author Organization [facility] Address [address] [place] [address] Care Team Providers Care Chair Pad Maker Name Role Phone Shilo Soares MD Primary Care Provider [phone] Encounter Details Date Type Department Care Team (Late Contact Info) Description 04/16/2024 External Device Data STL ABSTRACTION Provider, Abstract [...] (Late Contact Info) Description 08/04/2024 1:00 PM RIVERS AND LAKES BOATMAN Appointment [facility] 2nd Wy [address] [place] [address] Aviva Humphries MD [address] [place] [address] Infusion Chair 5, 2nd Floor Hall 08/25/2024 1:00 PM RIVERS AND LAKES BOATMAN Office Visit [facility] Gynecologic Oncology Hall [address] [place] [address] Edilia Pettit, CHELY [address] [place] [address] 08/25/2024 1:30 PM RIVERS AND LAKES BOATMAN Appointment [facility] 2nd Fl [address] [place] [address] Aviva Humphries MD [address] [place] [address] Infusion Chair 1, 2nd Floor [place] 09/01/2024 10:45 AM RIVERS AND LAKES BOATMAN Appointment [facility] Nuclear Medicine [address] [place] [address] [id number] Edilia Pettit, CHELY [address] [facility] [address] [place] [address] documented as of this encounter Visit Diagnoses Not on filedocumented in this encounter Care Teams Chair Pad Maker Relationship Specialty Start Date End Date Shilo Soares MD [address] [place] [address] PCP - General Internal Medicine 04/24/23 documented as of this encounter
--- OUTSIDE RECORDS SUMMARY | 2024-07-26 23:45 | XMS_ITS | Encounter Summary ---
Author Organization [facility] Address [address] [place] [address] Care Team Providers Care Land Lease Information Clerk Name Role Phone Shilo Soares MD Primary Care Provider [phone] Encounter Details Date Type Department Care Team (Late Contact Info) Description 04/14/2024 External Device Data STL ABSTRACTION Provider, Abstract [...] (Late Contact Info) Description 08/04/2024 1:00 PM FUNCTIONAL TESTER TYPEWRITERS Appointment [facility] 2nd [place] [address] [place] [address] Aviva Humphries MD [address] [place] [address] Infusion Chair 5, 2nd Floor [place] 08/25/2024 1:00 PM FUNCTIONAL TESTER TYPEWRITERS Office Visit [facility] Gynecologic Oncology Hall [address] [place] [address] Edilia Pettit, CHELY [address] [place] [address] 08/25/2024 1:30 PM FUNCTIONAL TESTER TYPEWRITERS Appointment [facility] 2nd Fl [address] [place] [address] Aviva Humphries MD [address] [place] [address] Infusion Chair 1, 2nd Floor [place] 09/01/2024 10:45 AM FUNCTIONAL TESTER TYPEWRITERS Appointment [facility] Nuclear Medicine [address] [place] [address] [id number] Edilia Pettit, CHELY [address] [facility] [address] [place] [address] documented as of this encounter Visit Diagnoses Not on filedocumented in this encounter Care Teams Land Lease Information Clerk Relationship Specialty Start Date End Date Shilo Soares MD [address] [place] [address] PCP - General Internal Medicine 04/24/23 documented as of this encounter
--- OUTSIDE RECORDS SUMMARY | 2024-07-26 23:45 | XMS_ITS | Encounter Summary ---
Author Organization [facility] Address [address] [place] [address] Care Team Providers Care Child Care Assistant Name Role Phone Shilo Soares MD Primary Care Provider [phone] Reason for Visit * Reason Comments Follow Up Encounter Details Date Type Department Care Team (Late st Contact Info) Description 04/21/2024 11:30 AM CDT Office Visit [facility] Gynecologic Oncology Hall [address] [facility] [address] [place] [address] Terra Eldridge PA-C [address] [facility] [address] [place] [address] Maintenance chemotherapy (Primary Dx); Malignant neoplasm of ovary, unspecified laterality; Chemotherapy-induced fatigue Social History Tobacco Use Types Packs/Day Years [...] Sign Reading Time Taken Comments Blood Pressure 118/78 04/21/2024 11:08 AM CDT Pulse 64 04/21/2024 11:08 AM CDT Temperature 36.9 ??C (98.4 ??F) 04/21/2024 11:08 AM C DT Respiratory Rate - - Oxygen Saturation 97% 04/21/2024 11:08 AM CDT Inhaled Oxygen Concentration - - Weight 50.9 kg (112 lb 4 oz) 04/21/2024 11:08 AM CDT Height 167.6 cm (5' 6 ) 04/21/2024 11:08 AM CDT Body Mass Index 18.12 04/21/2024 11:08 AM CDT documented in this encounter Progress Notes * Terra Eldridge PA-C - 04/21/2024 11:30 AM CDT Images from the original note were not included. [facility] GYNECOLOGIC ONCOLOGY OFFICE VISIT 04/21/2024November Eileen Mayen REFERRING PROVIDER: Dr. Barnard ref. provider found PRIMARY CARE PROVIDER: Shilo Harley MD RETURN PATIENT VISIT Cancer Staging Ovarian cancer Staging form: Ovary, Fallopian Tube, and Primary Peritoneal Carcinoma, AJCC 8th Edition - Clinical stage from 05/13/2023: FIGO Stage IVB - Signed by Aviva Humphries MD on 05/13/2023 Oncology History: 03/2023 presented to [facility] ED with abdominal distension; CT showed 11.6cm [...] olaparib 300mg BID Port: Yes, working well NGS: TED IHC: not applicable Genetics: 09/03/23 Narda was initially seen for Genetic Counseling on 08/04/2024 given a personal and family history of cancer. At that visit, genetic testing was offered and sent. Results of this testing were negative, meaning no genetic variant was identified in the genes analyzed; thus, no inherited/germline predisposition to cancer syndromes was identified. The following describes the detailedconversation with Narda via telephone on 09/02/2023. Last exam: 03/09/24 Code Status/AD: not addressed [...] ordered additional work up and referred to unit technician oncology. CT chest did not show metastatic disease. CA-125 was performed at elevated at 751. 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 She was started on NACT with carbo/taxol/sima as noted above. She underwent surgical debulking with Dr. Humphries as noted above. She has completed post-operative chemotherapy. She is currently receiving maintenance therapy in the form of bevacizumab 15mg/m2 q21 days + olaparib 300mg BID. Cycle #15 today She continues to experience fatigue from olaparib but reports that it is manageable and not interested in dose reduction. Narda denies recent changes to urinary or bowel habits. Denies newly diminished appetite, nausea, vomiting, new onset pain, abdominal bloating, or vaginal bleeding. Lab Results Component Value Date/Time CA125 5 03/31/2024 11:41 AM CA125 6 [...] malaise/fatigue. Negative for fever and weight loss. Respiratory: Positive for shortness of breath. Negative for cough. Cardiovascular: Negative for chest pain, palpitations and leg swelling. Gastrointestinal: Negative for abdominal pain, constipation, diarrhea, heartburn, nausea and vomiting. Genitourinary: Negative for dysuria, frequency and urgency. Musculoskeletal: Negative for myalgias and neck pain. Skin: Negative for rash. Neurological: Negative for dizziness, weakness and headaches. Psychiatric/Behavioral: Negative for depression. All other systems reviewed and are negative. Pertinent imaging studies: 02/10/24 CTCAP IMPRESSION: Interval development of multiple [...] in five containers each labeled Narda Eileen Mayen . Received in the first container additionally [...] to show a complete pinpoint, stellate lumen. Information Technology Professor sections are submitted in cassettes labeled A1-anterior cervix; A2-anterior polyp, submitted entirely; A3-anterior endomyometrium; A4-posterior cervix; A5-posterior endomyometrium; A6-left ovary; A7-left fallopian tube, fimbria submitted entirely; A8-presumed right fallopian tube, fimbria submitted entirely; A9 through D27-skvgac mass (2 sections in each cassette) with mucinous component in 9-10. Received in the second container additionally labeled omentum are 2 irregular fragments of calhoun-yellow to red-brown lobulated omentum measuring 35.8 x 6 x 2 cm in aggregate. Sections show a calhoun-yellow, fatty cut surface containing multiple pink-cancino firm nodules measuring up to 1.8 cm in greatest dimension. Information Technology Professor sections are submitted in cassettes labeled B1 [...] SMB MICROSCOPIC DESCRIPTION The slides are labeled [id number] and November. Sections of the salpingo-oophorectomy (A) [...] heterogeneity, focal positivity for ER, and rare LA positivity. Negative staining is observed for WT1 and CK20. Although weak patchy positivity for AMACR and Napsin A,and focal positivity for ER and rare LA positivity are unusual for clear cell carcinoma, [...] Component FINAL DIAGNOSIS Review [place] [address] (OSC [id number]; 04/29/2023 and [id number]; 05/06/2023) [id number] Ascites fluid, cytologic examination: - CK7 positive adenocarcinoma. [id number] Lymph node, right inguinal, biopsy: - Metastatic carcinoma most compatible with high-grade serous carcinoma. See comment. at 1237 MICROSCOPIC DESCRIPTION Received are slides labeled [id number] and [id number] and Narda Mayen. Microscopic examination of the ascites fluid [...] origin. Sections of the lymph node biopsy ([id number]) show cores of lymph node involved by [...] results wascommunicated to Dr. Humphries on 05/26/23. Past Medical History: Diagnosis Date COPD (chronic obstructive pulmonary disease) with emphysema History of chemotherapy Hyperlipidemia Ovarian cancer 04/2023 s/p chemotherapy Smoking greater than 20 pack years Past Surgical History: Procedure Laterality Date CYSTOSCOPY N/A 08/06/2023 CYSTOURETHROSCOPY performed by Aviva Humph[facility] MD [facility] HX BLADDER REPAIR N/A 08/06/2023 BLADDER REPAIR performed by Aviva Humphries MD at [facility] HX BUNIONECTOMY Bilateral 2009 HX SECTION 1982,1985,1994 HX PORTACATH PLACEMENT Right 2022 HX URETEROLYSIS Bilateral 08/06/2023 URETEROLYSIS performed by Aviva Humphries MD at [facility] LA BX/EXC LYMPH NODE OPEN SUPERFICIAL Right 08/06/2023 INGUINAL OR FEMORAL LYMPH NODE BIOPSY/EXCISION performed by Aviva Humphries MD at [facility] LA LAPAROSCOPY W/RMVL ADNEXAL STRUCTURES N/A 08/06/2023 SALPINGO-OOPHORECTOMY LAPAROSCOPIC performed by Aviva Humphries MD at [facility] LA OMNTC EPIPLOECTOMY RESCJ OMENTUM SPX N/A 08/06/2023 OMENTECTOMY performed by Aviva Humphries MD at [facility] LA TOTAL ABDOMINAL HYSTERECT W/WO RMVL TUBE OVARY N/A 08/06/2023 HYSTERECTOMY ABDOMINAL TOTAL performed by Aviva Humphries MD at [facility] OR [facility] LA UNLISTED PROCEDURE DIAPHRAGM N/A 08/06/2023 DIAPHRAGM BIOPSY performed by Aviva Humphries MD at [facility] Allergies Allergen Reactions Penicillins Rash Ciprofloxacin Rash Current Outpatient Medications: olaparib (Lynparza) 150 mg tablet, take 2 tablets by mouth 2 times a day, Disp: 120 Tablet, Rfl: 3 losartan (COZAAR) 50 mg [...] , Rfl: fluticasone propionate (FLONASE) 50 mcg/spray [place], Suspension nasal inhaler, Administer 2 Sprays in each nostril daily., Disp: , Rfl: omega-3 fatty acids-fish oil 300-1,000 mg Capsule, Take 2 Capsules by mouth daily., Disp: , Rfl: FAMILY HISTORY: Cancer-related family history includes Lung Cancer (age of onset: 60 - 69) in her father. 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 Down to half pack per day. 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 ECOG PS: 0 HEAD: Normocephalic, atraumatic. EYES: Conjunctivae and lids were normal. Puffiness inferior to R eye. RESPIRATORY: Normal respiratory effort. CARDIOVASCULAR: No lower extremity varicosities were noted. No peripheral edema noted. ABDOMEN: Soft, non-tender, no masses, no evidence of hernias. LYMPHATICS: R inguinal incision well approximated; scar tissue appreciated. No cervical lymphadenopathy palpated. MUSCULOSKELETAL: The upper and lower extremities had full range of movement and had equal muscle strength. SKIN: No rashes, lesions, or subcutaneous nodules noted. NEUROLOGIC: Cranial nerves were grossly intact. MENTAL STATUS: Affect was appropriate. PELVIC EXAM: deferred ASSESSMENT and PLAN: 1. Maintenance chemotherapy 2. Malignant neoplasm of ovary, unspecified laterality 3. 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 She has completed 3 cycles of NACT with carbo/taxol/sima (sima held with cycle 3). She has undergone interval cytoreductive surgery to no gross residual disease. She completed 3 additional cycles of chemotherapy post surgery. Completion of primary treatment: 10/15/23 Maintenance therapy initiated: 11/05/23 bevacizumab, 11/19/23 olaparib -Continue maintenance bevacizumab 15mg/m2 q21 days + olaparib 300mg BID. Offered dose reduction of olaparib d/t continued fatigue. Pt would like to continue 300mg BID at this time and will let us know if she would like to change dose in the future. -Labs and toxicity profile reviewed and acceptable for continued treatment with olaparib and bevacizumab -Repeat CTCAP scheduled for 05/18/24 Return to clinic: f/u in [address] Humphries Thank you for involving [facility] Gynecologic Oncology in the care of this patient. Laisha Eldridge PA-C Gynecologic Oncology [facility] Attending Attestation I have not seen or examined the patient. I have reviewed the documentation by Laisha Eldridge PA-C and I agree with the plan. Aviva Humphries MD [facility] Gynecologic Oncology documented in this encounter Plan of Treatment Upcoming Encounters Date Type Department Care Team (Late st Contact Info) Description 08/04/2024 1:00 PM WEAVER HAND Appointment [facility] Infusion Center 2nd Fl [address] [place] [address] Aviva Humphries MD [address] [place] [address] Infusion Chair 5, 2nd Floor [place] 08/25/2024 1:00 PM WEAVER HAND Office Visit [facility] Gynecologic Oncology [place] [address] [facility] [address] [place] [address] Edilia Pettit, CHELY [address] [facility] [address] [place] [address] 08/25/2024 1:30 PM WEAVER HAND Appointment [facility] Center 2nd Fl [address] [place] [address] Aviva Humhpries MD [address] [facility] [address] [place] [address] Infusion Chair 1, 2nd Floor [place] 09/01/2024 10:45 AM WEAVER HAND Appointment [facility] Nuclear Medicine [address] [place] [address] [id number] Edilia Pettit, CARDIOVASCULAR RN [address] [place] [address] documented as of this encounter Visit Diagnoses Diagnosis Maintenance chemotherapy- Primary Encounter for antineoplastic chemotherapy Malignant neoplasm of ovary, unspecified laterality Chemotherapy-induced fatigue documented in this encounter Care Teams Child Care Assistant Relationship Specialty Start Date End Date Shilo Soares MD [address] [place] [phone] PCP - General Internal Medicine 04/24/23 documented as of this encounter
--- OUTSIDE RECORDS SUMMARY | 2024-07-26 23:45 | XMS_ITS | Encounter Summary ---
Author Organization [facility] Address [address] [place] [address] Care Team Providers Care Director External Communications Name Role Phone Shilo Soares MD Primary Care Provider [phone] Encounter Details Date Type Department Care Team [...] (Late Contact Info) Description 08/04/2024 1:00 PM CHART COLLECTOR Appointment [facility] 2nd Ut [address] [place] [address] Aviva Humphries MD [address] [place] [address] Infusion Chair 5, 2nd Floor [place] 08/25/2024 1:00 PM CHART COLLECTOR Office Visit [facility] Gynecologic Oncology Hall [address] [place] [address] Edilia Pettit, CHELY [address] [address] [facility] [place] [address] 08/25/2024 1:30 PM CHART COLLECTOR Appointment [facility] 2nd Fl [address] [place] [address] Aviva Humphries MD [address] [place] [address] Infusion Chair 1, 2nd Floor [place] [employer] 09/01/2024 10:45 AM CHART COLLECTOR Appointment [facility] Nuclear Medicine [address] [place] [address] [id number] Edilia Pettit, CHELY [address] [facility] [address] [place] [address] documented as of this encounter Visit Diagnoses Not on filedocumented in this encounter Care Teams Director External Communications Relationship Specialty Start Date End Date Shilo Soares MD [address] [place] [address] PCP - General Internal Medicine 04/24/23 documented as of this encounter
--- OUTSIDE RECORDS SUMMARY | 2024-07-26 23:45 | XMS_ITS | Encounter Summary ---
Author Organization [facility] Address [address] [place] [address] Care Team Providers Care Sap Bi Developer Name Role Phone Shilo Soares MD Primary Care Provider [phone] Encounter Details Date Type Department Care Team (Late Contact Info) Description 04/09/2024 External Device Data STL ABSTRACTION Provider, Abstract [...] (Late Contact Info) Description 08/04/2024 1:00 PM OCEAN FREIGHT AGENT Appointment [facility] 2nd Wy [address] [place] [address] Aviva Humphries MD [address] [place] [address] Infusion Chair 5, 2nd Floor [place] 08/25/2024 1:00 PM OCEAN FREIGHT AGENT Office Visit [facility] Gynecologic Oncology Hall [address] [place] [address] Edilia Pettit, CHELY [address] [place] [address] 08/25/2024 1:30 PM OCEAN FREIGHT AGENT Appointment [facility] Center 2nd Fl [address] [place] [address] Aviva Humphries MD [address] [place] [address] Infusion Chair 1, 2nd Floor [place] 09/01/2024 10:45 AM OCEAN FREIGHT AGENT Appointment [facility] Nuclear Medicine [address] [place] [address] [id number] Edilia Pettit, CHELY [address] [facility] [address] [place] [address] documented as of this encounter Visit Diagnoses Not on filedocumented in this encounter Care Teams Sap Bi Developer Relationship Specialty Start Date End Date Shilo Soares MD [address] [place] [address] PCP - General Internal Medicine 04/24/23 documented as of this encounter
--- OUTSIDE RECORDS SUMMARY | 2024-07-26 23:45 | XMS_ITS | Encounter Summary ---
Author Organization [facility] Address [address] [place] [address] Care Team Providers Care Hand Cementer Name Role Phone Shilo Soares MD Primary Care Provider [phone] Encounter Details Date Type Department Care Team (Late Contact Info) Description 04/22/2024 External Device Data STL ABSTRACTION Provider, Abstract [...] Contact Info) Description 08/04/2024 1:00 PM CAREER GUIDANCE TECHNICIAN Appointment [facility] [place] [address] [place] [address] Aviva Humphries MD [address] [place] [address] Infusion Chair 5, 2nd Floor Hall 08/25/2024 1:00 PM CAREER GUIDANCE TECHNICIAN Office Visit [facility] Gynecologic Oncology Hall [address] [place] [address] Edilia Pettit, CHELY [address] [place] [address] 08/25/2024 1:30 PM CAREER GUIDANCE TECHNICIAN Appointment [facility] 2nd Fl [address] [place] [address] Aviva Humphries MD [address] [facility] [address] [facility] [address] [place] [address] Infusion Chair 1, 2nd Floor [place] 09/01/2024 10:45 AM CAREER GUIDANCE TECHNICIAN Appointment [facility] Nuclear Medicine [address] [place] [address] [id number] Edilia Pettit, CHELY [address] [facility] [address] [place] [address] documented as of this encounter Visit Diagnoses Not on filedocumented in this encounter Care Teams Hand Cementer Relationship Specialty Start Date End Date Shilo Soares MD [address] [place] [address] PCP - General Internal Medicine 04/24/23 documented as of this encounter
--- OUTSIDE RECORDS SUMMARY | 2024-07-26 23:45 | XMS_ITS | Encounter Summary ---
Author Organization [facility] Address [address] [place] [address] Care Team Providers Care Marketing Communications Leader Name Role Phone Shilo Soares MD Primary Care Provider [phone] Reason for Visit * Tx/Med Therapy Plan Auth (Routine) - Authorized Specialty Diagnoses / Procedures Referred By Alison gomez Referred To Contact Diagnoses Malignant neoplasm of ovary, unspecified laterality Encounter for antineoplastic chemotherapy Nausea Procedures WY PACLITAXEL INJECTION WY CARBOPLATIN INJECTION WY INJ MVASI 10 MG WY FOSAPREPITANT INJECTION WY PALONOSETRON HCL WY DEXAMETHASONE SODIUM PHOS WY METHYLPREDNISOLONE INJECTION WY DIPHENHYDRAMINE HCL INJECTIO WY INJECTION, FAMOTIDINE, 20 MG TAXOL, CARBO, MVASI, EMEND, ALOXI, DECADRON, SOLU MEDROL, BENADRYL, PEPCID Aviva Humphries MD [address] [facility] [address] [place] [address] [facility] 2nd Floor [place] [address] [place] [address] Referral ID Status Reason Start Date Expiration Date V isits Requested Visits Authorized [id number] Authorized 05/20/2023 05/26/2025 99 99 Encounter Details Date Type Department Care Team (Latest Contact Info) Description 04/21/2024 11:38 AM CDT - 04/21/2024 11:59 PM CDT Hospital Encounter [facility] Infusion Center 2nd Fl [address] [place] [address] Aviva Humphries MD [address] [facility] [address] [place] [address] Infusion Chair 11, 2nd Floor Hall Discharge Disposition: Home or [...] bedtime. 02/26/2021 fluticasone propionate (FLONASE) 50 mcg/spray [place], Suspension nasal inhaler Administer 2 Sprays in each nostril daily. omega-3 fatty acids-fish oil 300-1,000 mg Capsule Take 2 Capsules by mouth daily. olaparib (Lynparza) 150 mg tablet take 2 tablets by mouth 2 times a day 120 Tablet 3 02/15/2024 05/12/2024 documented as of this encounter Progress Notes * Ashlee Miller, RN - 04/21/2024 12:00 PM CDT November Chemotherapy Infusion complete, pt tolerated without complaints of discomfort at this time. Denies any hypersensitivity reactions. Port flushed with compatible IV solution, then flushed with saline and heparin per [facility] policy. Port deaccessed. Prior to chemotherapy [...] st Contact Info) Description 08/04/2024 1:00 PM GEAR LAPPER Appointment [facility] [place] [address] [place] [address] Aviva Humphries MD [address] [place] [address] Infusion Chair 5, 2nd Floor Hall 08/25/2024 1:00 PM GEAR LAPPER Office Visit [facility] Gynecologic Oncology Hall [address] [place] [address] Edilia Pettit, CHEYL [address] [facility] [address] [place] [address] 08/25/2024 1:30 PM GEAR LAPPER Appointment [facility] Infusion Center 2nd [place] [address] [place] [address] Aviva Humphries MD [address] [facility] [address] [place] [address] Infusion Chair 1, 2nd Floor [place] 09/01/2024 10:45 AM GEAR LAPPER Appointment [facility] Nuclear Medicine [address] [place] [address] [id number] Edilia Pettit, CHELY [address] [address] documented as of this encounter Results * (ABNORMAL) COMPREHENSIVE METABOLIC PANEL (04/21/2024 10:35 AM CDT) SODIUM 139 136 - 145 mmol/L 04/21/2024 11:30 AM T [facility] POTASSIUM 3.8 3.5 - 5.0 mmol/L 04/21/2024 11:30 AM T [facility] CHLORIDE 105 98 - 107 mmol/L 04/21/2024 11:30 AM T [facility] - . [facility] CO2 24 22 - 29 mmol/L 04/21/2024 11:30 AM T [facility] - . [facility] CALCIUM 9.0 8.6 - 10.2 mg/dL 04/21/2024 11:30 AM T [facility] - . [facility] BUN 11 8 - 23 mg/dL 04/21/2024 11:30 AM T [facility] - . [facility] CREATININE 0.94 0.51 - 0.95 mg/dL 04/21/2024 11:30 AM [facility]ORATORY SERVICES - [facility] GLUCOSE 130(H) 74 - 99 mg/dL 04/21/2024 11:30 AM [facility] TOTAL PROTEIN 6.9 6.7 - 8.6 g/dL 04/21/2024 11:30 AM [facility]. [facility] ALBUMIN 4.2 3.5 - 5.2 g/dL 04/21/2024 11:30 AM [facility]. [facility] BILIRUBIN TOTAL 0.5 0.2 - 1.1 mg/dL 04/21/2024 11:30 AM [facility] ALKALINE PHOSPHATASE 78 35 - 104 U/L 04/21/2024 11:30 AM [facility]. [facility] AST 22 <33 U/L 04/21/2024 11:30 AM [facility] ALT 19 <34 U/L 04/21/2024 11:30 AM [facility] GFR >60 >=60 mL/min/1.7 3 sq meter 04/21/2024 11:30 AM [facility] Comment:eGFR calculated with 2020 CKD-EPI equation. Vegetarian diet, extremely high or low muscle mass, and may affect results. Cystatin C with Glomerular Filtration Rate is a suitable alternative for these patients. ANION GAP 10 8 - 16 mmol/L 04/21/2024 11:30 AM [facility] Blood Collection / Unknown 04/21/2024 10:35 AM CDT 04/21/2024 10:52 AM CDT [facility] - 04/21/2024 11:30 AM CDT Samples containing indocyanine green cause interferences on Total and/or Direct Bilirubin and must not be measured. Aviva Humphries MD CHEMISTRY ORDERABLES [facility]# [id number] [address] [place] [address] [place] [address] * (ABNORMAL) CBC WITH DIFFERENTIAL (04/21/2024 10:35 AM CDT) Pathologist [facility] WBC 3.8(L) 4.0 - 9.8 K/uL 04/21/2024 10:55 AM CDT [facility] NRBCS 1 % 04/21/2024 10:55 AM CDT [facility] RBC 2.11(L) 3.90 - 4.90 M/uL 04/21/2024 10:55 AM CDT [facility] HEMOGLOBIN 8.6(L) 11.8 - 14.8 g/dL 04/21/2024 10:55 AM CDT [facility] HEMATOCRIT 25.6(L) 35.5 - 44.0 % 04/21/2024 10:55 AM CDT [facility] MCV 121.3(H) 82.0 - 99.0 fL 04/21/2024 10:55 AM CDT [facility] MCH 40.8(H) 27.2 - 32.6 pg 04/21/2024 10:55 AM CDT [facility] MCHC 33.6 31.5 - 35.5 g/dL 04/21/2024 10:55 AM CDT [facility] RDW 19.4(H) 11.5 - 14.5 % 04/21/2024 10:55 AM CDT [facility] RDW-STDEV 87.2(H) 37.1 - 48.7 fL 04/21/2024 10:55 AM CDT [facility] PLATELETS 123(L) 140 - 350 K/uL 04/21/2024 10:55 AM CDT [facility] MPV 11.4 9.3 - 12.4 fL 04/21/2024 10:55 AM T [facility] Blood Collection / Unknown 04/21/2024 10:35 AM CDT 04/21/2024 10:49 AM CDT Aviva Humphries MD HEMATOLOGY ORDERABLE S [facility] [employer] [facility] - [facility] CLIA# [id number] [address] [place] [address] * (ABNORMAL) URINALYSIS WITH REFLEX CULTURE (04/21/2024 10:35 AM CDT) COLOR UA Colorless(A ) Pale to Dark Yellow 04/21/2024 11:[address] [facility] - [facility] CLARITY UA Clear Clear 04/21/2024 11:[address] [facility] - . [facility] SPECIFIC GRAVITY UA 1.003 1.003 - 1.035 04/21/2024 11:[address] [facility] H.BLOOM SERVICES - [facility] PH UA 6.0 5.0 - 8.0 04/21/2024 11:[address] [facility] - . [facility] LEUKOCYTE ESTERASE UA Negative Negative 04/21/2024 11:[address] [facility] - . [facility] NITRITE UA Negative Negative 04/21/2024 11:[address] [facility] - . [facility] PROTEIN UA Negative Negative 04/21/2024 11:[address] [facility] - . [facility] GLUCOSE UA Negative Negative 04/21/2024 11:[address] [facility] H.BLOOM SERVICES - . [facility] KETONES UA Negative Negative 04/21/2024 11:[address] [facility] - [facility] UROBILINOGEN UA Normal <2.0 mg/dL 11:[address] [facility] - [facility] BILIRUBIN UA Negative Negative 04/21/2024 11:[address] [facility] H.BLOOM SERVICES - [facility] BLOOD UA Negative Negative 04/21/2024 11:[address] [facility] H.BLOOM SERVICES - [facility] Urine URINE SPECIMEN OBTAINED BY CLEAN CATCH PROCEDURE / Unknown Collection / Unknown 04/21/2024 10:35 AM CDT 04/21/2024 10:53 AM CDT Aviva Humphries MD URINE ORDERABLES [facility] SERVICES - [facility] CLIA# [id number] [address] [place] [address] * CANCER ANTIGEN 125 (04/21/2024 10:34 AM CDT) CA 125 6 <35 U/mL [facility] Comment: This test was performed using the Siemens Chemiluminescent method. Values obtained from different assay methods cannot be used interchangeably. CA 125 levels, regardless of value, should not be interpreted as absolute evidence of the presence or absence of disease. Test Performed at: [facility] [address] [place] [address] ??[id number] Radha Perez MD Blood 04/21/2024 10:3 4 AM CDT 04/21/2024 11:06 AM CDT Aviva Humphries MD CHEMISTRY ORDERABLES [facility] [phone] [address] documented in this encounter Visit Diagnoses Diagnosis [...] IV, ONE TIME ONLY, 1 dose, On Thu04/21/24 at 1200, Routine New Bag 04/21/2024 12:14 PM CDT 773 mg 291.8 mL/hr heparin, porcine (pf) 10 unit/mL IV syringe 50 Units 50 Units, IV, ONE TIME ONLY, 1 dose, On Thu04/21/24 at 1300, Routine Given 04/21/2024 12:53 PM CDT 50 Units sodium chloride 0.9% infusion IV, at 30-999 mL/hr, CONTINUOUS, Starting on Thu04/21/24 at 1200, Until Thu04/22/24 at 0304, Routine Rate Change 04/21/2024 12:43 PM CDT 300 mL/hr New Bag 04/21/2024 12:06 PM CDT 250 mL 30 mL/hr sodium chloride flush injection 10 mL 10 mL, IV, SEE ADMIN INSTRUCTIONS, Starting on Peace 04/21/24 at 1146, Until Thu04/22/24 at 0304, Routine Given 04/21/2024 12:05 PM CDT 10 mL documented in this encounter Care Teams Marketing Communications Leader Relationship Specialty Start Date End Date Shilo Soares MD [address] [place] [address] PCP - General Internal Medicine 04/24/23 documented as of this encounter
--- OUTSIDE RECORDS SUMMARY | 2024-07-26 23:45 | XMS_ITS | Encounter Summary ---
Author Organization [facility] Address [address] [place] [address] Care Team Providers Care Collateral Clerk Name Role Phone Shilo Soares MD Primary Care Provider [phone] Encounter Details Date Type Department Care Team (Late Contact Info) Description 04/24/2024 External Device Data STL ABSTRACTION Provider, Abstract [...] (Late Contact Info) Description 08/04/2024 1:00 PM ADMINISTRATIVE SERVICES ASSISTANT Appointment [facility] 2nd D[place] [address] [place] [address] Aviva Humphreis MD [address] [place] [address] Infusion Chair 5, 2nd Floor Hall 08/25/2024 1:00 PM ADMINISTRATIVE SERVICES ASSISTANT Office Visit [facility] Gynecologic Oncology Hall [address] [place] [address] Edilia Pettit, CHELY [address] [place] [address] 08/25/2024 1:30 PM ADMINISTRATIVE SERVICES ASSISTANT Appointment [facility] 2nd Fl [address] [place] [address] Aviva Humphries MD [address] [place] [address] Infusion Chair 1, 2nd Floor [place] 09/01/2024 10:45 AM ADMINISTRATIVE SERVICES ASSISTANT Appointment [facility] Nuclear Medicine [address] [place] [address] [id number] Edilia Pettit, CHELY [address] [facility] [address] [place] [address] documented as of this encounter Visit Diagnoses Not on filedocumented in this encounter Care Teams Collateral Clerk Relationship Specialty Start Date End Date Shilo Soares MD [address] [place] [address] PCP - General Internal Medicine 04/24/23 documented as of this encounter
--- OUTSIDE RECORDS SUMMARY | 2024-07-26 23:45 | XMS_ITS | Encounter Summary ---
Author Organization [facility] Address [address] [place] [address] Care Team Providers Care Barrelhead Inspector Name Role Phone Shilo Soares MD Primary Care Provider [phone] Encounter Details Date Type Department Care Team (Late Contact Info) Description 04/11/2024 External Device Data STL ABSTRACTION Provider, Abstract [...] (Late Contact Info) Description 08/04/2024 1:00 PM EMBEDDED SOFTWARE DEVELOPMENT ENGINEER Appointment [facility] 2nd Sc [address] [place] [address] Aviva Humphries MD [address] [place] [address] Infusion Chair 5, 2nd Floor Hall 08/25/2024 1:00 PM EMBEDDED SOFTWARE DEVELOPMENT ENGINEER Office Visit [facility] Gynecologic Oncology Hall [address] [place] [address] Edilia Pettit, CHELY [address] [facility] [address] [place] [address] 08/25/2024 1:30 PM EMBEDDED SOFTWARE DEVELOPMENT ENGINEER Appointment [facility] 2nd Fl [address] [place] [address] Aviva Humphries MD [address] [place] [address] Infusion Chair 1, 2nd Floor [place] 09/01/2024 10:45 AM EMBEDDED SOFTWARE DEVELOPMENT ENGINEER Appointment [facility] Nuclear Medicine [address] [place] [address] [id number] Edilia Pettit, CHELY [address] [facility] [address] [place] [address] documented as of this encounter Visit Diagnoses Not on filedocumented in this encounter Care Teams Barrelhead Inspector Relationship Specialty Start Date End Date Shilo Soares MD [address] [place] [address] PCP - General Internal Medicine 04/24/23 documented as of this encounter
--- OUTSIDE RECORDS SUMMARY | 2024-07-26 23:45 | XMS_ITS | Encounter Summary ---
Author Organization [facility] Address [address] [place] [address] Care Team Providers Care Hr Internship Name Role Phone Shilo Soares MD Primary Care Provider [phone] Encounter Details Date Type Department Care Team [...] (Late Contact Info) Description 08/04/2024 1:00 PM SURGICAL SERVICES ASSISTANT Appointment [facility] 2nd Sc [address] [place] [address] Aviva Humphries MD [address] [place] [address] Infusion Chair 5, 2nd Floor Hall 08/25/2024 1:00 PM SURGICAL SERVICES ASSISTANT Office Visit [facility] Gynecologic Oncology Hall [address] [place] [address] Edilia Pettit, CHELY [address] [address] [address] [place] [address] 08/25/2024 1:30 PM SURGICAL SERVICES ASSISTANT Appointment [facility] 2nd Fl [address] [place] [address] Aviva Humphries MD [address] [place] [address] Infusion Chair 1, 2nd Floor [place] 09/01/2024 10:45 AM SURGICAL SERVICES ASSISTANT Appointment Randy [facility] Nuclear Medicine [address] [place] [address] [id number] Edilia Pettit, CHELY [address] [facility] [address] [place] [address] documented as of this encounter Visit Diagnoses Not on filedocumented in this encounter Care Teams Hr Internship Relationship Specialty Start Date End Date Shilo Soares MD [address] [place] [address] PCP - General Internal Medicine 04/24/23 documented as of this encounter
--- OUTSIDE RECORDS SUMMARY | 2024-07-26 23:45 | XMS_ITS | Encounter Summary ---
Author Organization [facility] Address [address] [place] [address] Care Team Providers Care Joy Operator Name Role Phone Shilo Soares MD Primary Care Provider [phone] Encounter Details Date Type Department Care Team [...] (Late Contact Info) Description 08/04/2024 1:00 PM REIMBURSEMENT REP Appointment [facility] 2nd Me [address] [place] [address] Aviva Humphries MD [address] [place] [address] Infusion Chair 5, 2nd Floor [place] 08/25/2024 1:00 PM REIMBURSEMENT REP Office Visit [facility] Gynecologic Oncology Hall [address] [place] [address] Edilia Pettit, CHELY [address] [place] [address] 08/25/2024 1:30 PM REIMBURSEMENT REP Appointment [facility] 2nd Fl [address] [place] [address] Aviva Humphries MD [address] [place] [address] Infusion Chair 1, 2nd Floor [place] 09/01/2024 10:45 AM REIMBURSEMENT REP Appointment [facility] Nuclear Medicine [address] [place] [address] [id number] Edilia Pettit, CHELY [address] [facility] [address] [place] [address] documented as of this encounter Visit Diagnoses Not on filedocumented in this encounter Care Teams Joy Operator Relationship Specialty Start Date End Date Shilo Soares MD [address] [place] [address] PCP - General Internal Medicine 04/24/23 documented as of this encounter
--- OUTSIDE RECORDS SUMMARY | 2024-07-26 23:46 | XMS_ITS | Encounter Summary ---
Author Organization [facility] Address [address] [place] [address] Care Team Providers Care Contract Runner Name Role Phone Shilo Soares MD Primary Care Provider [phone] Encounter Details Date Type Department Care Team (Late Contact Info) Description 03/28/2024 External Device Data STL ABSTRACTION Provider, Abstract [...] (Late Contact Info) Description 08/04/2024 1:00 PM MS SQL DEVELOPER Appointment [facility] 2nd De [address] [place] [address] Aviva Humphries MD [address] [place] [address] Infusion Chair 5, 2nd Floor [place] 08/25/2024 1:00 PM MS SQL DEVELOPER Office Visit [facility] Gynecologic Oncology Hall [address] [place] [address] Edilia Pettit, CHELY [address] [facility] [address] [facility] [address] [place] [address] 08/25/2024 1:30 PM MS SQL DEVELOPER Appointment [facility] 2nd Fl [address] [place] [address] Aviva Humphries MD [address] [place] [address] Infusion Chair 1, 2nd Floor [place] 09/01/2024 10:45 AM MS SQL DEVELOPER Appointment [facility] Nuclear Medicine [address] [place] [address] [id number] Edilia Pettit, CHELY [address] [facility] [address] [place] [address] documented as of this encounter Visit Diagnoses Not on filedocumented in this encounter Care Teams Contract Runner Relationship Specialty Start Date End Date Shilo Soares MD [address] [place] [address] PCP - General Internal Medicine 04/24/23 documented as of this encounter
--- OUTSIDE RECORDS SUMMARY | 2024-07-26 23:46 | XMS_ITS | Encounter Summary ---
Author Organization [facility] Address [address] [place] [address] Care Team Providers Care Trial Mgr Name Role Phone Shilo Soares MD Primary Care Provider [phone] Encounter Details Date Type Department Care Team (Late Contact Info) Description 03/19/2024 External Device Data STL ABSTRACTION Provider, Abstract [...] (Late Contact Info) Description 08/04/2024 1:00 PM GENETICS PHYSICIAN Appointment [facility] 2nd Co [address] [place] [address] Aviva Humphries MD [address] [place] [address] Infusion Chair 5, 2nd Floor [place] 08/25/2024 1:00 PM GENETICS PHYSICIAN Office Visit [facility] Gynecologic Oncology Hall [address] [place] [address] Edilia Pettit, CHELY [address] [facility] [address] [place] [address] 08/25/2024 1:30 PM GENETICS PHYSICIAN Appointment [facility] 2nd Fl [address] [place] [address] Aviva Humphries MD [address] [facility] [place] [address] Infusion Chair 1, 2nd Floor [place] 09/01/2024 10:45 AM GENETICS PHYSICIAN Appointment [facility] Nuclear Medicine [address] [place] [address] [id number] Edilia Pettit, CHELY [address] [facility] [address] [place] [address] documented as of this encounter Visit Diagnoses Not on filedocumented in this encounter Care Teams Trial Mgr Relationship Specialty Start Date End Date Shilo Soares MD [address] [place] [address] PCP - General Internal Medicine 04/24/23 documented as of this encounter
--- OUTSIDE RECORDS SUMMARY | 2024-07-26 23:46 | XMS_ITS | Encounter Summary ---
Author Organization [facility] Address [address] [place] [address] Care Team Providers Care Cap Lining Machine Operator Name Role Phone Shilo Soares MD Primary Care Provider [phone] Encounter Details Date Type Department Care Team (Late Contact Info) Description 03/17/2024 External Device Data STL ABSTRACTION Provider, Abstract [...] (Late Contact Info) Description 08/04/2024 1:00 PM FRATERNITY ADVISER Appointment [facility] [place] [address] [place] [address] Aviva Humphries MD [address] [place] [address] Infusion Chair 5, 2nd Floor [place] 08/25/2024 1:00 PM FRATERNITY ADVISER Office Visit [facility] Gynecologic Oncology Hall [address] [place] [address] Edilia Pettit, CHELY [address] [place] [address] 08/25/2024 1:30 PM FRATERNITY ADVISER Appointment [facility] 2nd Fl [address] [place] [address] Aviva Humphries MD [address] [place] [address] Infusion Chair 1, 2nd Floor [place] 09/01/2024 10:45 AM FRATERNITY ADVISER Appointment [facility] Nuclear Medicine [address] [place] [address] [id number] Edilia Pettit, CHELY [address] [facility] [address] [place] [address] documented as of this encounter Visit Diagnoses Not on filedocumented in this encounter Care Teams Cap Lining Machine Operator Relationship Specialty Start Date End Date Shilo Soares MD [address] [place] [address] PCP - General Internal Medicine 04/24/23 documented as of this encounter
--- OUTSIDE RECORDS SUMMARY | 2024-07-26 23:46 | XMS_ITS | Encounter Summary ---
Author Organization [facility] Address [address] [place] [address] Care Team Providers Care Shrimp Peeling Machine Operator Name Role Phone Shilo Soares MD Primary Care Provider [phone] Encounter Details Date Type Department Care Team (Late Contact Info) Description 03/29/2024 External Device Data STL ABSTRACTION Provider, Abstract [...] (Late Contact Info) Description 08/04/2024 1:00 PM BLIND LACER Appointment [facility] [place] [address] [place] [address] Aviva Humphries MD [address] [place] [address] Infusion Chair 5, 2nd Floor Hall 08/25/2024 1:00 PM BLIND LACER Office Visit [facility] Gynecologic Oncology Hall [address] [place] [address] Edilia Pettit, CHELY [address] [address] [address] [facility] [address] [place] [address] 08/25/2024 1:30 PM BLIND LACER Appointment [facility] 2nd Fl [address] [place] [address] Aviva Humphries MD [address] [place] [address] Infusion Chair 1, 2nd Floor [place] 09/01/2024 10:45 AM BLIND LACER Appointment [facility] Nuclear Medicine [address] [place] [address] [id number] Edilia Pettit, CHELY [address] [facility] [address] [place] [address] documented as of this encounter Visit Diagnoses Not on filedocumented in this encounter Care Teams Shrimp Peeling Machine Operator Relationship Specialty Start Date End Date Shilo Soares MD [address] [place] [address] PCP - General Internal Medicine 04/24/23 documented as of this encounter
--- OUTSIDE RECORDS SUMMARY | 2024-07-26 23:46 | XMS_ITS | Encounter Summary ---
Author Organization [facility] Address [address] [place] [address] Care Team Providers Care Anthropology And Archeology Instructor Name Role Phone Shilo Soares MD Primary Care Provider [phone] Encounter Details Date Type Department Care Team (Late Contact Info) Description 03/15/2024 External Device Data STL ABSTRACTION Provider, Abstract [...] (Late Contact Info) Description 08/04/2024 1:00 PM EDGE GRINDER MACHINE Appointment [facility] 2nd Md [address] [place] [address] Aviva Humphries MD [address] [place] [address] Infusion Chair 5, 2nd Floor [place] 08/25/2024 1:00 PM EDGE GRINDER MACHINE Office Visit [facility] Gynecologic Oncology Hall [address] [place] [address] Edilia Pettit, CHELY [address] [facility] [facility] [address] [place] [address] 08/25/2024 1:30 PM EDGE GRINDER MACHINE Appointment [facility] 2nd Fl [address] [place] [address] Aviva Humphries MD [address] [place] [address] Infusion Chair 1, 2nd Floor [place] 09/01/2024 10:45 AM EDGE GRINDER MACHINE Appointment [facility] Nuclear Medicine [address] [place] [address] [id number] Edilia Pettit, CHELY [address] [facility] [address] [place] [address] documented as of this encounter Visit Diagnoses Not on filedocumented in this encounter Care Teams Anthropology And Archeology Instructor Relationship Specialty Start Date End Date Shilo Soares MD [address] [place] [address] PCP - General Internal Medicine 04/24/23 documented as of this encounter
--- OUTSIDE RECORDS SUMMARY | 2024-07-26 23:46 | XMS_ITS | Encounter Summary ---
Author Organization [facility] Address [address] [place] [address] Care Team Providers Care Informatics Consultant Name Role Phone Shilo Soares MD Primary Care Provider [phone] Encounter Details Date Type Department Care Team [...] (Late Contact Info) Description 08/04/2024 1:00 PM NITROCELLULOSE MAKER Appointment [facility] 2[facility] [place] [address] [place] [address] Aviva Humphries MD [address] [place] [address] Infusion Chair 5, 2nd Floor [place] 08/25/2024 1:00 PM NITROCELLULOSE MAKER Office Visit [facility] [place] [facility] Gynecologic Oncology Hall [address] [place] [address] Edilia Pettit, CHELY [address] [facility] [address] [place] [address] 08/25/2024 1:30 PM NITROCELLULOSE MAKER Appointment [facility] 2nd Fl [address] [place] [address] Aviva Humphries MD [address] [place] [address] Infusion Chair 1, 2nd Floor [place] 09/01/2024 10:45 AM NITROCELLULOSE MAKER Appointment [facility] Nuclear Medicine [address] [place] [address] [phone] Edilia Pettit, CHELY [address] [facility] [address] [place] [address] documented as of this encounter Visit Diagnoses Not on filedocumented in this encounter Care Teams Informatics Consultant Relationship Specialty Start Date End Date Shilo Soares MD [address] [place] [address] PCP - General Internal Medicine 04/24/23 documented as of this encounter
--- OUTSIDE RECORDS SUMMARY | 2024-07-26 23:46 | XMS_ITS | Encounter Summary ---
Author Organization [facility] Address [address] [place] [address] Care Team Providers Care Field Representative/Health Education Name Role Phone Shilo Soares MD Primary Care Provider [phone] Encounter Details Date Type Department Care Team (Late Contact Info) Description 03/21/2024 External Device Data STL ABSTRACTION Provider, Abstract [...] (Late Contact Info) Description 08/04/2024 1:00 PM ABRASIVE WHEEL MOLDER Appointment [facility] [place] [address] [place] [address] Aviva Humphries MD [address] [place] [address] Infusion Chair 5, 2nd Floor [place] 08/25/2024 1:00 PM ABRASIVE WHEEL MOLDER Office Visit [facility] Gynecologic Oncology Hall [address] [place] [address] Edilia Pettit, CHELY [address] [facility] [facility] [address] [place] [address] 08/25/2024 1:30 PM ABRASIVE WHEEL MOLDER Appointment [facility] 2nd Fl [address] [place] [address] Aviva Humphries MD [address] [place] [address] Infusion Chair 1, 2nd Floor [place] 09/01/2024 10:45 AM ABRASIVE WHEEL MOLDER Appointment [facility] Nuclear Medicine [address] [place] [address] [id number] Edilia Pettit, CHELY [address] [facility] [address] [place] [address] documented as of this encounter Visit Diagnoses Not on filedocumented in this encounter Care Teams Field Representative/Health Education Relationship Specialty Start Date End Date Shilo Soares MD [address] [place] [address] PCP - General Internal Medicine 04/24/23 documented as of this encounter
--- OUTSIDE RECORDS SUMMARY | 2024-07-26 23:46 | XMS_ITS | Encounter Summary ---
Author Organization [facility] Address [address] [place] [address] Care Team Providers Care Fpga Engineer Name Role Phone Shilo Soares MD Primary Care Provider [phone] Encounter Details Date Type Department Care Team (Late Contact Info) Description 03/14/2024 External Device Data STL ABSTRACTION Provider, Abstract [...] Contact Info) Description 08/04/2024 1:00 PM WEB PRESS OPERATOR APPRENTICE Appointment [facility] 2nd Nm [address] [place] [address] Aviva Humphries MD [address] [place] [address] Infusion Chair 5, 2nd Floor [place] 08/25/2024 1:00 PM WEB PRESS OPERATOR APPRENTICE Office Visit [facility] Gynecologic Oncology Hall [address] [place] [address] Edilia Pettit, CHELY [address] [facility] [address] [place] [address] 08/25/2024 1:30 PM WEB PRESS OPERATOR APPRENTICE Appointment [facility] 2nd Fl [address] [place] [address] Aviva Humphries MD [address] [facility] [facility] [address] [place] [address] Infusion Chair 1, 2nd Floor [place] 09/01/2024 10:45 AM WEB PRESS OPERATOR APPRENTICE Appointment [facility] Nuclear Medicine [address] [place] [address] [id number] Edilia Pettit, CHELY [address] [facility] [address] [place] [address] documented as of this encounter Visit Diagnoses Not on filedocumented in this encounter Care Teams Fpga Engineer Relationship Specialty Start Date End Date Shilo Soares MD [address] [place] [address] PCP - General Internal Medicine 04/24/23 documented as of this encounter
--- OUTSIDE RECORDS SUMMARY | 2024-07-26 23:46 | XMS_ITS | Encounter Summary ---
Author Organization [facility] Address [address] [place] [address] Care Team Providers Care Supervisor Wet Room Name Role Phone Shilo Soares MD Primary Care Provider [phone] Encounter Details Date Type Department Care Team (Late Contact Info) Description 03/22/2024 External Device Data STL ABSTRACTION Provider, Abstract [...] Contact Info) Description 08/04/2024 1:00 PM BUSINESS PROJECT ANALYST Appointment [facility] 2[facility] Ar [address] [place] [address] Aviva Humphries MD [address] [place] [address] Infusion Chair 5, 2nd Floor [place] 08/25/2024 1:00 PM BUSINESS PROJECT ANALYST Office Visit [facility] Gynecologic Oncology Hall [address] [place] [address] Edilia Pettit, CHELY [address] [facility] [facility] [address] [place] [address] 08/25/2024 1:30 PM BUSINESS PROJECT ANALYST Appointment [facility] 2nd Fl [address] [place] [address] Aviva Humphries MD [address] [place] [address] Infusion Chair 1, 2nd Floor [place] 09/01/2024 10:45 AM BUSINESS PROJECT ANALYST Appointment [facility] Nuclear Medicine [address] [place] [address] [id number] Edilia Pettit, CHELY [address] [facility] [address] [place] [address] documented as of this encounter Visit Diagnoses Not on filedocumented in this encounter Care Teams Supervisor Wet Room Relationship Specialty Start Date End Date Shilo Soares MD [address] [place] [address] PCP - General Internal Medicine 04/24/23 documented as of this encounter
--- OUTSIDE RECORDS SUMMARY | 2024-07-26 23:46 | XMS_ITS | Encounter Summary ---
Author Organization [facility] Address [address] [place] [address] Care Team Providers Care Pelletizer Tender Name Role Phone Shilo Soares MD Primary Care Provider [phone] Encounter Details Date Type Department Care Team (Late Contact Info) Description 03/30/2024 External Device Data STL ABSTRACTION Provider, Abstract [...] (Late Contact Info) Description 08/04/2024 1:00 PM COAT REPAIR INSPECTOR Appointment [facility] 2nd [place] [address] [place] [address] Aviva Humphries MD [address] [place] [address] Infusion Chair 5, 2nd Floor Hall 08/25/2024 1:00 PM COAT REPAIR INSPECTOR Office Visit [facility] Gynecologic Oncology Hall [address] [place] [address] Edilia Pettit, CHELY [address] [facility] [address] [place] [address] 08/25/2024 1:30 PM COAT REPAIR INSPECTOR Appointment [facility] 2nd Fl [address] [place] [address] Aviva Humphries MD [address] [place] [address] Infusion Chair 1, 2nd Floor [place] 09/01/2024 10:45 AM COAT REPAIR INSPECTOR Appointment [facility] Nuclear Medicine [address] [place] [address] [id number] Edilia Pettit, CHELY [address] [facility] [address] [place] [address] documented as of this encounter Visit Diagnoses Not on filedocumented in this encounter Care Teams Pelletizer Tender Relationship Specialty Start Date End Date Shilo Soares MD [address] [place] [address] PCP - General Internal Medicine 04/24/23 documented as of this encounter
--- OUTSIDE RECORDS SUMMARY | 2024-07-26 23:46 | XMS_ITS | Encounter Summary ---
Author Organization [facility] Address [address] [place] [address] Care Team Providers Care Chefs Name Role Phone Shilo Soares MD Primary Care Provider [phone] Encounter Details Date Type Department Care Team (Late Contact Info) Description 03/23/2024 External Device Data STL ABSTRACTION Provider, Abstract [...] (Late Contact Info) Description 08/04/2024 1:00 PM PHARMACY MESSENGER Appointment [facility] 2[facility] Wy [address] [place] [address] Aviva Humphries MD [address] [place] [address] Infusion Chair 5, 2nd Floor Hall 08/25/2024 1:00 PM PHARMACY MESSENGER Office Visit [facility] Gynecologic Oncology Hall [address] [place] [address] Edilia Pettit, CHELY [address] [address] [place] [address] 08/25/2024 1:30 PM PHARMACY MESSENGER Appointment [facility] 2nd Fl [address] [place] [address] Aviva Humphries MD [address] [facility] [address] [place] [address] Infusion Chair 1, 2nd Floor [place] 09/01/2024 10:45 AM PHARMACY MESSENGER Appointment [facility] Nuclear Medicine [address] [place] [address] [id number] Edilia Pettit, CHELY [address] [facility] [address] [place] [address] documented as of this encounter Visit Diagnoses Not on filedocumented in this encounter Care Teams Chefs Relationship Specialty Start Date End Date Shilo Soares MD [address] [place] [address] PCP - General Internal Medicine 04/24/23 documented as of this encounter
--- OUTSIDE RECORDS SUMMARY | 2024-07-26 23:46 | XMS_ITS | Encounter Summary ---
Author Organization [facility] Address [address] [place] [address] Care Team Providers Care Bow Maker Gift Wrapping Name Role Phone Shilo Soares MD Primary Care Provider [phone] Encounter Details Date Type Department Care Team [...] (Late Contact Info) Description 08/04/2024 1:00 PM DIRECTOR TOXICOLOGY Appointment [facility] 2nd [place] [address] [place] [address] Aviva Humphries MD [address] [place] [address] Infusion Chair 5, 2nd Floor Hall 08/25/2024 1:00 PM DIRECTOR TOXICOLOGY Office Visit [facility] Gynecologic Oncology Hall [address] [place] [address] Edilia Pettit, CHELY [address] [facility] [address] [address] [place] [address] 08/25/2024 1:30 PM DIRECTOR TOXICOLOGY Appointment [facility] 2nd Fl [address] [place] [address] Aviva Humphries MD [address] [address] [facility] [address] [place] [address] Infusion Chair 1, 2nd Floor [place] 09/01/2024 10:45 AM DIRECTOR TOXICOLOGY Appointment [facility] Nuclear Medicine [address] [place] [address] [id number] Edilia Pettit, CHELY [address] [facility] [address] [place] [address] documented as of this encounter Visit Diagnoses Not on filedocumented in this encounter Care Teams Bow Maker Gift Wrapping Relationship Specialty Start Date End Date Shilo Soares MD [address] [place] [address] PCP - General Internal Medicine 04/24/23 documented as of this encounter
--- OUTSIDE RECORDS SUMMARY | 2024-07-26 23:46 | XMS_ITS | Encounter Summary ---
Author Organization [facility] Address [address] [place] [address] Care Team Providers Care Cooler Deliverer Name Role Phone Shilo Soares MD Primary Care Provider [phone] Encounter Details Date Type Department Care Team (Late Contact Info) Description 03/24/2024 External Device Data STL ABSTRACTION Provider, Abstract [...] (Late Contact Info) Description 08/04/2024 1:00 PM PACKAGER OR PACKER AND WEIGHER Appointment [facility] 2nd Ne [address] [place] [address] Aviva Humphries MD [address] [place] [address] Infusion Chair 5, 2nd Floor [place] 08/25/2024 1:00 PM PACKAGER OR PACKER AND WEIGHER Office Visit [facility] Gynecologic Oncology Hall [address] [place] [address] Edilia Pettit, CHELY [address] [facility] [address] [place] [address] 08/25/2024 1:30 PM PACKAGER OR PACKER AND WEIGHER Appointment [facility] 2nd Fl [address] [place] [address] Aviva Humphries MD [address] [facility] [address] [place] [address] Infusion Chair 1, 2nd Floor [place] 09/01/2024 10:45 AM PACKAGER OR PACKER AND WEIGHER Appointment [facility] Nuclear Medicine [address] [place] [address] [id number] Edilia Pettit, CHELY [address] [facility] [address] [place] [address] documented as of this encounter Visit Diagnoses Not on filedocumented in this encounter Care Teams Cooler Deliverer Relationship Specialty Start Date End Date Shilo Soares MD [address] [place] [address] PCP - General Internal Medicine 04/24/23 documented as of this encounter
--- OUTSIDE RECORDS SUMMARY | 2024-07-26 23:46 | XMS_ITS | Encounter Summary ---
Author Organization [facility] Address [address] [place] [address] Care Team Providers Care Water Treatment Plant Mechanic Name Role Phone Shilo Soares MD Primary Care Provider [phone] Encounter Details Date Type Department Care Team [...] (Late Contact Info) Description 08/04/2024 1:00 PM CLIENT SERVICES VICE PRESIDENT Appointment [facility] 2nd Al [address] [place] [address] Aviva Humphries MD [address] [place] [address] Infusion Chair 5, 2nd Floor [place] 08/25/2024 1:00 PM CLIENT SERVICES VICE PRESIDENT Office Visit [facility] Gynecologic Oncology Hall [address] [place] [address] Edilia Pettit, CHELY [address] [address] [place] [address] 08/25/2024 1:30 PM CLIENT SERVICES VICE PRESIDENT Appointment [facility] 2nd Fl [address] [place] [address] Aviva Humphries MD [address] [place] [address] Infusion Chair 1, 2nd Floor [place] 09/01/2024 10:45 AM CLIENT SERVICES VICE PRESIDENT Appointment [facility] Nuclear Medicine [address] [place] [address] [id number] Edilia Pettit, CHELY [address] [facility] [address] [place] [address] documented as of this encounter Visit Diagnoses Not on filedocumented in this encounter Care Teams Water Treatment Plant Mechanic Relationship Specialty Start Date End Date Shilo Soares MD [address] [place] [address] PCP - General Internal Medicine 04/24/23 documented as of this encounter
--- OUTSIDE RECORDS SUMMARY | 2024-07-26 23:46 | XMS_ITS | Encounter Summary ---
Author Organization [facility] Address [address] [place] [address] Care Team Providers Care Lamp Shades Supervisor Name Role Phone Shilo Soares MD Primary Care Provider [phone] Encounter Details Date Type Department Care Team [...] (Late Contact Info) Description 08/04/2024 1:00 PM KNIFE OPERATOR Appointment [facility] 2nd De [address] [place] [address] Aviva Humphries MD [address] [place] [address] Infusion Chair 5, 2nd Floor [place] 08/25/2024 1:00 PM KNIFE OPERATOR Office Visit [facility] Gynecologic Oncology Hall [address] [place] [address] Edilia Pettit, CHELY [address] [facility] [address] [place] [address] 08/25/2024 1:30 PM KNIFE OPERATOR Appointment [facility] 2nd Fl [address] [place] [address] Aviva Humphries MD [address] [place] [address] Infusion Chair 1, 2nd Floor [place] 09/01/2024 10:45 AM KNIFE OPERATOR Appointment [facility] Nuclear Medicine [address] [place] [address] [id number] Edilia Pettit, CHELY [address] [facility] [address] [place] [address] documented as of this encounter Visit Diagnoses Not on filedocumented in this encounter Care Teams Lamp Shades Supervisor Relationship Specialty Start Date End Date Shilo Soares MD [address] [place] [address] PCP - General Internal Medicine 04/24/23 documented as of this encounter
--- OUTSIDE RECORDS SUMMARY | 2024-07-26 23:46 | XMS_ITS | Encounter Summary ---
Author Organization [facility] Address [address] [place] [address] Care Team Providers Care Power And Recovery Supervisor Name Role Phone Shilo Soares MD Primary Care Provider [phone] Encounter Details Date Type Department Care Team [...] (Late Contact Info) Description 08/04/2024 1:00 PM WOOD FLOOR REFINISHER Appointment [facility] 2nd Ks [address] [place] [address] Aviva Humphries MD [address] [place] [address] Infusion Chair 5, 2nd Floor Hall 08/25/2024 1:00 PM WOOD FLOOR REFINISHER Office Visit [facility]3] Gynecologic Oncology Hall [address] [place] [address] Edilia Pettit, CHELY [address] [place] [address] 08/25/2024 1:30 PM WOOD FLOOR REFINISHER Appointment [facility] 2nd Fl [address] [place] [address] Aviva Humphries MD [address] [place] [address] Infusion Chair 1, 2nd Floor [place] 09/01/2024 10:45 AM WOOD FLOOR REFINISHER Appointment [facility] Nuclear Medicine [address] [place] [address] [id number] Edilia Pettit, CHELY [address] [facility] [address] [place] [address] documented as of this encounter Visit Diagnoses Not on filedocumented in this encounter Care Teams Power And Recovery Supervisor Relationship Specialty Start Date End Date Shilo Soares MD [address] [place] [address] PCP - General Internal Medicine 04/24/23 documented as of this encounter
--- OUTSIDE RECORDS SUMMARY | 2024-07-26 23:46 | XMS_ITS | Encounter Summary ---
Author Organization [facility] Address [address] [place] [address] Care Team Providers Care Beef Selector Name Role Phone Shilo Soares MD Primary Care Provider [phone] Reason for Visit * Tx/Med Therapy Plan [...] BENADRYL, PEPCID Aviva Humphries MD [address] [facility] [address] [place] [address] [facility] 2nd Floor [place] [address] [place] [address] Referral ID Status Reason Start Date Expiration Date V isits Requested Visits Authorized [id number] Authorized 05/20/2023 05/26/2025 99 99 Encounter Details Date Type Department Care Team (Latest Contact Info) Description 03/31/2024 11:50 AM CDT - 03/31/2024 11:59 PM CDT Hospital Encounter [facility] Infusion Center 2nd Fl [address] [place] [address] Aviva Humphries MD [address] [facility] [facility] [address] [place] [address] Infusion Chair 8, 2nd Floor Hall Discharge Disposition: Home or [...] bedtime. 02/26/2021 fluticasone propionate (FLONASE) 50 mcg/spray Knapp, Suspension nasal inhaler Administer 2 Sprays in each nostril daily. omega-3 fatty acids-fish oil 300-1,000 mg Capsule Take 2 Capsules by mouth daily. olaparib (Lynparza) 150 mg tablet take 2 tablets by mouth 2 times a day 120 Tablet 3 02/15/2024 05/12/2024 documented as of this encounter Progress Notes * Terra Nieves RN - 03/31/2024 1:00 PM CDT Pt admitted to infusion center for treatment. Labs reviewed per 2 licensed providers and okay to treat per parameters. Prior to chemotherapy administration: reviewed with pt the goal of chemotherapy regimen, the method of administration, and potential side effects. MVASI administered via port without adverse effects. Good blood return obtained from port. Instructed pt to notify physician or go toED if fever 100.5 F or higher, chills, or any change in condition. Pt verbalized understanding. Next appointment is 04/21 at 12:00pm. Discharged home. documented in this encounter Plan of Treatment Upcoming Encounters Date Type Department Care Team (Late st Contact Info) Description 08/04/2024 1:00 PM ASSISTANT FIELD HOCKEY COACH Appointment [facility] 2nd Fl [address] [place] [address] Aviva Humphries MD [address] [place] [address] Infusion Chair 5, 2nd Floor [place] 08/25/2024 1:00 PM ASSISTANT FIELD HOCKEY COACH Office Visit [facility] Gynecologic Oncology Hall [address] [place] [address] Edilia Pettit, CHELY [address] [facility] [address] [place] [address] 08/25/2024 1:30 PM ASSISTANT FIELD HOCKEY COACH Appointment Randy [facility] Infusion Center 2nd Fl [address] [place] [address] Aviva Humphries MD [address] [facility] [address] [place] [address] Infusion Chair 1, 2nd Floor Hall 09/01/2024 10:45 AM ASSISTANT FIELD HOCKEY COACH Appointment Randy [facility] Nuclear Medicine [address] [place] [address] [id number] Edilia Pettit, CHELY [address] [facility] [address] [place] [address] Scheduled Orders Name Type Priority Associated Diagnoses Orde r Schedule URINALYSIS WITH REFLEX CULTURE Lab Stat Malignant neoplasm of ovary, unspecified laterality Expected: 03/31/2024, Expires: 03/31/2025 documented as of this encounter Results * (ABNORMAL) URINALYSIS WITH REFLEX MICROSCOPIC (03/31/2024 11:41 AM CDT) COLOR UA Colorless(A ) Pale to Dark Yellow 03/31/2024 12:24 PM [facility] CLARITY UA Clear Clear 03/31/2024 12:24 PM T [employer] [employer] [facility] SPECIFIC GRAVITY UA 1.002(L) 1.003 - 1.035 03/31/2024 12:24 PM [facility] PH UA 6.0 5.0 - 8.0 03/31/2024 12:24 PM T [employer] [employer] [facility] LEUKOCYTE ESTERASE UA Negative Negative 03/31/2024 12:24 PM [facility] NITRITE UA Negative Negative 03/31/2024 12:24 PM CDT [facility]ORY SERVICES - [facility] PROTEIN UA Negative Negative 03/31/2024 12:24 PM CDT [facility] - . [facility] GLUCOSE UA Negative Negative 03/31/2024 12:24 PM CDT [facility] LABORATORY SERVICES - [facility] KETONES UA Negative Negative 03/31/2024 12:24 PM CDT [facility] LAB[facility] - . [facility] UROBILINOGEN UA Normal <2.0 mg/dL 12:24 PM T [facility] BILIRUBIN UA Negative Negative 03/31/2024 12:24 PM CDT [facility]OR[facility]ORY SERVICES - . [facility] BLOOD UA Negative Negative 03/31/2024 12:24 PM T [facility] - [facility] Urine URINE SPECIMEN OBTAINED BY CLEAN CATCH PROCEDURE / Unknown Collection / Unknown 03/31/2024 11:41 AM CDT 03/31/2024 12:11 PM CDT Aviva Humphries MD URINE ORDERABLES [facility]# [id number] [address] [facility] [place] [address] * CANCER ANTIGEN 125 (03/31/2024 11:41 AM CDT) CA 125 5 <35 U/mL [facility] Comment: This test was performed using the Siemens Chemiluminescent method. Values obtained from different assay methods cannot be used interchangeably. CA 125 levels, regardless of value, should not be interpreted as absolute evidence of the presence or absence of disease. Test Performed at: [facility] [id number] [facility] [place] ??[id number] Radha Perez MD Blood 03/31/2024 11:4 1 AM CDT 03/31/2024 12:31 PM CDT Aviva Humphries MD CHEMISTRY ORDERABLES [facility] [address] [phone] [facility] [address] [facility] [place] [address] * (ABNORMAL) COMPREHENSIVE METABOLIC PANEL (03/31/2024 11:41 AM CDT) [facility] SODIUM 136 136 - 145 mmol/L 03/31/2024 12:53 PM CDT [facility] - [facility] POTASSIUM 3.5 3.5 - 5.0 mmol/L 03/31/2024 12:53 PM CDT [facility] CHLORIDE 103 98 - 107 mmol/L 03/31/2024 12:53 PM CDT [facility] CO2 22 22 - 29 mmol/L 03/31/2024 12:53 PM CDT [facility] CALCIUM 8.9 8.6 - 10.2 mg/dL 03/31/2024 12:53 PM CDT [facility] BUN 10 8 - 23 mg/dL 03/31/2024 12:53 PM CDT [facility] CREATININE 0.89 0.51 - 0.95 mg/dL 03/31/2024 12:53 PM CDT [facility] GLUCOSE 153(H) 74 - 99 mg/dL 03/31/2024 12:53 PM CDT [facility] TOTAL PROTEIN 6.8 6.7 - 8.6 g/dL 03/31/2024 12:53 PM CDT [facility] ALBUMIN 4.2 3.5 - 5.2 g/dL 03/31/2024 12:53 PM CDT [facility] - [facility] BILIRUBIN TOTAL 0.4 0.2 - 1.1 mg/dL 03/31/2024 12:53 PM CDT [facility] ALKALINE PHOSPHATASE 73 35 - 104 U/L 03/31/2024 12:53 PM CDT [facility] AST 23 <33 U/L 03/31/2024 12:53 PM CDT [facility] ALT 26 <34 U/L 03/31/2024 12:53 PM CDT [facility] GFR >60 >=60 mL/min/1.7 3 sq meter 03/31/2024 12:53 PM CDT [facility] Comment:eGFR calculated with 2020 CKD-EPI equation. Vegetarian diet, extremely high or low muscle mass, and may affect results. Cystatin C with Glomerular Filtration Rate is a suitable alternative for these patients. ANION GAP 11 8 - 16 mmol/L 03/31/2024 12:53 PM [facility] Blood Collection / Unknown 03/31/2024 11:41 AM CDT 03/31/2024 12:10 PM CDT [facility] - 03/31/2024 12:53 PM CDT Samples containing indocyanine green cause interferences on Total and/or Direct Bilirubin and must not be measured. Aviva Humphries MD CHEMISTRY ORDERABLES [facility]# [id number] 5 SFORMERLY [facility] [place] [address] * (ABNORMAL) CBC WITH DIFFERENTIAL (03/31/2024 11:41 AM CDT) WBC 4.8 4.0 - 9.8 K/uL 03/31/2024 12:05 PM [facility] RBC 2.23(L) 3.90 - 4.90 M/uL 03/31/2024 12:05 PM [facility] HEMOGLOBIN 8.9(L) 11.8 - 14.8 g/dL 03/31/2024 12:05 PM [facility] HEMATOCRIT 26.3(L) 35.5 - 44.0 % 03/31/2024 12:05 PM [facility] MCV 117.9(H) 82.0 - 99.0 fL 03/31/2024 12:05 PM [facility] MCH 39.9(H) 27.2 - 32.6 pg 03/31/2024 12:05 PM [facility] MCHC 33.8 31.5 - 35.5 g/dL 03/31/2024 12:05 PM CDT [facility] - [facility] RDW 18.7(H) 11.5 - 14.5 % 03/31/2024 12:05 PM CDT [facility] - [facility] RDW-STDEV 80.2(H) 37.1 - 48.7 fL 03/31/2024 12:05 PM CDT [facility] - [facility] PLATELETS 119(L) 140 - 350 K/uL 03/31/2024 12:05 PM CDT [facility] - [facility] MPV 10.9 9.3 - 12.4 fL 03/31/2024 12:05 PM CDT [facility] - [facility] NEUTROPHILS 51 % 03/31/2024 12:05 PM CDT [facility] - [facility] LYMPHOCYTES 43 % 03/31/2024 12:05 PM CDT [facility] - [facility] MONOCYTES 5 % 03/31/2024 12:05 PM CDT [facility] - [facility] EOSINOPHILS 1 % 03/31/2024 12:05 PM CDT [facility] - [facility] BASOPHILS 0 % 03/31/2024 12:05 PM CDT [facility] - [facility] IMMATURE GRANULOCYTES 0 % 03/31/2024 12:05 PM CDT [facility] - [facility] NEUTROPHIL ABSOLUTE 2.46 1.90 - 7.00 K/uL 03/31/2024 12:05 PM [employer] [facility] - [facility] LYMPHOCYTE ABSOLUTE 2.04 0.70 - 4.50 K/uL 03/31/2024 12:05 PM CDT [facility] - [facility] MONOCYTE ABSOLUTE 0.23 0.10 - 1.30 K/uL 03/31/2024 12:05 PM CDT [facility] - [facility] EOSINOPHIL ABSOLUTE 0.03 0.00 - 0.70 K/uL 03/31/2024 12:05 PM CDT [facility] - [facility] BASOPHILS ABSOLUTE 0.02 0.00 - 0.20 K/uL 03/31/2024 12:05 PM CDT [facility] - [facility] IMMATURE GRANULOCYTES ABSOLUTE 0.01 0.00 - 0.03 K/uL 03/31/2024 12:05 PM [employer] [facility] - [facility] Blood Collection / Unknown 03/31/2024 11:41 AM CDT 03/31/2024 12:00 PM CDT Aviva Humphries MD HEMATOLOGY ORDERABLE S [facility] - [facility] CLIA# [id number] [address] [place] [address] documented in this encounter Visit Diagnoses Diagnosis [...] IV, ONE TIME ONLY, 1 dose, On Thu03/31/24 at 1330, Routine Rate Verify 03/31/2024 1:35 PM CDT 291.8 mL/hr New Bag 03/31/2024 1:35 PM CDT 773 mg 291.8 mL/hr sodium chloride 0.9% infusion IV, at 30-999 mL/hr, CONTINUOUS, Starting on Peace 03/31/24 at 1315, Until Thu04/01/24 at 0312, Routine Rate Change 03/31/2024 2:03 PM CDT 300 mL/hr New Bag 03/31/2024 1:31 PM CDT 30 mL/hr 30 mL/hr documented in this encounter Care Teams Beef Selector Relationship Specialty Start Date End Date Shilo Soares MD [address] [place] [address] PCP - General Internal Medicine 04/24/23 documented as of this encounter
--- OUTSIDE RECORDS SUMMARY | 2024-07-26 23:46 | XMS_ITS | Encounter Summary ---
Author Organization [facility] Address [address] [place] [address] Care Team Providers Care Material Combiner Name Role Phone Shilo Soares MD Primary Care Provider [phone] Encounter Details Date Type Department Care Team ([facility] Contact Info) Description 03/31/2024 Orders Only [facility] Gynecologic Oncology Hall [address] [address] [place] [address] Edilia Pettit, CHELY [address] [place] [address] Social History Tobacco Use Types [...] (Late Contact Info) Description 08/04/2024 1:00 PM PORCELAIN TURNER Appointment [facility] Center 2nd Fl [address] [place] [address] Aviva Humphries MD [address] [place] [address] Infusion Chair 5, 2nd Floor [place] 08/25/2024 1:00 PM PORCELAIN TURNER Office Visit [facility] Gynecologic Oncology Hall [address] [place] [address] Edilia Pettit, CHELY [address] [place] [address] 08/25/2024 1:30 PM PORCELAIN TURNER Appointment [facility] [address] [place] [address] Aviva Humphries MD [address] [place] [address] Infusion Chair 1, 2nd Floor [place] 09/01/2024 10:45 AM PORCELAIN TURNER Appointment Randy [facility] Nuclear Medicine [address] [place] [address] [id number] Edilia Pettit NP [address] [facility] [address] [place] [address] documented as of this encounter Visit Diagnoses Not on filedocumented in this encounter Care Teams Material Combiner Relationship Specialty Start Date End Date Shilo Soares MD [address] [place] [address] PCP - General Internal Medicine 04/24/23 documented as of this encounter
--- OUTSIDE RECORDS SUMMARY | 2024-07-26 23:46 | XMS_ITS | Encounter Summary ---
Author Organization [facility] Address [address] [place] [address] Care Team Providers Care Vehicle Leasing And Rental Manager Name Role Phone Shilo Soares MD Primary Care Provider [phone] Encounter Details Date Type Department Care Team [...] (Late Contact Info) Description 08/04/2024 1:00 PM FUEL EFFICIENT AUTOMOBILE DESIGNER Appointment [facility] 2nd Ks [address] [place] [address] Aviva Humphries MD [address] [place] [address] Infusion Chair 5, 2nd Floor Hall 08/25/2024 1:00 PM FUEL EFFICIENT AUTOMOBILE DESIGNER Office Visit [facility] Gynecologic Oncology Hall [address] [place] [address] Edilia Pettit, CHELY [address] [facility] [address] [facility] [address] [place] [address] 08/25/2024 1:30 PM FUEL EFFICIENT AUTOMOBILE DESIGNER Appointment [facility] 2nd Fl [address] [place] [address] Aviva Humphries MD [address] [place] [address] Infusion Chair 1, 2nd Floor [place] 09/01/2024 10:45 AM FUEL EFFICIENT AUTOMOBILE DESIGNER Appointment Randy [facility] Nuclear Medicine [address] [place] [address] [id number] Edilia Pettit, CHELY [address] [facility] [facility] [address] [place] [address] documented as of this encounter Visit Diagnoses Not on filedocumented in this encounter Care Teams Vehicle Leasing And Rental Manager Relationship Specialty Start Date End Date Shilo Soares MD [address] [place] [address] PCP - General Internal Medicine 04/24/23 documented as of this encounter
--- OUTSIDE RECORDS SUMMARY | 2024-07-26 23:46 | XMS_ITS | Encounter Summary ---
Author Organization [facility] Address [address] [place] [address] Care Team Providers Care Gritting Machine Operator Name Role Phone Shilo Soares MD Primary Care Provider [phone] Encounter Details Date Type Department Care Team [...] (Late Contact Info) Description 08/04/2024 1:00 PM POTATO SPOTTER Appointment [facility] 2nd De [address] [place] [address] Aviva Humphries MD [address] [place] [address] Infusion Chair 5, 2nd Floor Hall 08/25/2024 1:00 PM POTATO SPOTTER Office Visit [facility] Gynecologic Oncology Hall [address] [place] [address] Edilia Pettit, CHELY [address] [place] [address] 08/25/2024 1:30 PM POTATO SPOTTER Appointment [facility] 2nd Fl [address] [place] [address] Aviva Humphries MD [address] [place] [address] Infusion Chair 1, 2nd Floor [place] 09/01/2024 10:45 AM POTATO SPOTTER Appointment Randy [facility] Nuclear Medicine [address] [place] [address] [id number] Edilia Pettit, CHELY [address] [facility] [address] [place] [address] documented as of this encounter Visit Diagnoses Not on filedocumented in this encounter Care Teams Gritting Machine Operator Relationship Specialty Start Date End Date Shilo Soares MD [address] [place] [address] PCP - General Internal Medicine 04/24/23 documented as of this encounter
--- OUTSIDE RECORDS SUMMARY | 2024-07-26 23:46 | XMS_ITS | Encounter Summary ---
Author Organization [facility] Address [address] [place] [address] Care Team Providers Care Surfboard Designer Name Role Phone Shilo Soares MD Primary Care Provider [phone] Encounter Details Date Type Department Care Team (Late Contact Info) Description 03/25/2024 External Device Data STL ABSTRACTION Provider, Abstract [...] (Late Contact Info) Description 08/04/2024 1:00 PM INSIDE CONTRACTOR SALES Appointment [facility] 2nd Mi [address] [place] [address] Aviva Humphries MD [address] [place] [address] Infusion Chair 5, 2nd Floor Hall 08/25/2024 1:00 PM INSIDE CONTRACTOR SALES Office Visit [facility] Gynecologic Oncology Hall [address] [place] [address] Edilia Pettit, CHELY [address] [facility] [address] [place] [address] 08/25/2024 1:30 PM INSIDE CONTRACTOR SALES Appointment [facility] 2nd Fl [address] [place] [address] Aviva Humphries MD [address] [place] [address] Infusion Chair 1, 2nd Floor [place] 09/01/2024 10:45 AM INSIDE CONTRACTOR SALES Appointment Randy [facility] Nuclear Medicine [address] [place] [address] [id number] Edilia Pettit, CHELY [address] [facility] [address] [place] [address] documented as of this encounter Visit Diagnoses Not on filedocumented in this encounter Care Teams Surfboard Designer Relationship Specialty Start Date End Date Shilo Soares MD [address] [place] [address] PCP - General Internal Medicine 04/24/23 documented as of this encounter
--- OUTSIDE RECORDS SUMMARY | 2024-07-26 23:46 | XMS_ITS | Encounter Summary ---
Author Organization [facility] Address [address] [place] [address] Care Team Providers Care Breaker Layer Name Role Phone Shilo Soares MD Primary Care Provider [phone] Encounter Details Date Type Department Care Team (Late Contact Info) Description 03/13/2024 External Device Data STL ABSTRACTION Provider, Abstract [...] (Late Contact Info) Description 08/04/2024 1:00 PM ANNEALING OVEN OPERATOR Appointment [facility] 2nd Ia [address] [place] [address] Aviva Humphries MD [address] [place] [address] Infusion Chair 5, 2nd Floor [place] 08/25/2024 1:00 PM ANNEALING OVEN OPERATOR Office Visit [facility] Gynecologic Oncology Hall [address] [place] [address] Edilia Pettit, CHELY [address] [facility] [address] [address] [address] [place] [address] 08/25/2024 1:30 PM ANNEALING OVEN OPERATOR Appointment [facility] 2nd Fl [address] [place] [address] Aviva Humphries MD [address] [place] [address] Infusion Chair 1, 2nd Floor [place] 09/01/2024 10:45 AM ANNEALING OVEN OPERATOR Appointment Randy [facility] Nuclear Medicine [address] [place] [address] [id number] Edilia Pettit, CHELY [address] [facility] [address] [place] [address] documented as of this encounter Visit Diagnoses Not on filedocumented in this encounter Care Teams Breaker Layer Relationship Specialty Start Date End Date Shilo Soares MD [address] [place] [address] PCP - General Internal Medicine 04/24/23 documented as of this encounter
--- OUTSIDE RECORDS SUMMARY | 2024-07-26 23:46 | XMS_ITS | Encounter Summary ---
Author Organization [facility] Address [address] [place] [address] Care Team Providers Care Scientologist Name Role Phone Shilo Soares MD Primary Care Provider [phone] Encounter Details Date Type Department Care Team (Late Contact Info) Description 03/20/2024 External Device Data STL ABSTRACTION Provider, Abstract [...] (Late Contact Info) Description 08/04/2024 1:00 PM SWIMMING POOL SERVICER Appointment [facility] [address] [place] [address] Aviva Humphries MD [address] [place] [address] Infusion Chair 5, 2nd Floor [place] 08/25/2024 1:00 PM SWIMMING POOL SERVICER Office Visit [facility] Gynecologic Oncology Hall [address] [place] [address] Edilia Pettit, CHELY [address] [place] [address] 08/25/2024 1:30 PM SWIMMING POOL SERVICER Appointment [facility] 2nd Fl [address] [place] [address] Aviva Humphries MD [address] [facility] [address] [place] [address] Infusion Chair 1, 2nd Floor [place] 09/01/2024 10:45 AM SWIMMING POOL SERVICER Appointment [facility] Nuclear Medicine [address] [place] [address] [id number] Edilia Pettit, CHELY [address] [address] [place] [address] documented as of this encounter Visit Diagnoses Not on filedocumented in this encounter Care Teams Scientologist Relationship Specialty Start Date End Date Shilo Soares MD [address] [place] [address] PCP - General Internal Medicine 04/24/23 documented as of this encounter
--- OUTSIDE RECORDS SUMMARY | 2024-07-26 23:46 | XMS_ITS | Encounter Summary ---
Author Organization [facility] Address [address] [place] [address] Care Team Providers Care Rn Diabetes Educator Name Role Phone Shilo Soares MD Primary Care Provider [phone] Encounter Details Date Type Department Care Team [...] (Late Contact Info) Description 08/04/2024 1:00 PM TONGUER Appointment [facility] 2nd Ny [address] [place] [address] Aviva Humphries MD [address] [place] [address] Infusion Chair 5, 2nd Floor [place] 08/25/2024 1:00 PM TONGUER Office Visit [facility] Gynecologic Oncology Hall [address] [place] [address] Edilia Pettit, CHELY [address] [place] [address] 08/25/2024 1:30 PM TONGUER Appointment [facility] 2nd Fl [address] [place] [address] Aviva Humphries MD [address] [place] [address] Infusion Chair 1, 2nd Floor [place] 09/01/2024 10:45 AM TONGUER Appointment [facility] Nuclear Medicine [address] [place] [address] [id number] Edilia Pettit, CHELY [address] [facility] [address] [place] [address] documented as of this encounter Visit Diagnoses Not on filedocumented in this encounter Care Teams Rn Diabetes Educator Relationship Specialty Start Date End Date Shilo Soares MD [address] [place] [address] PCP - General Internal Medicine 04/24/23 documented as of this encounter
--- OUTSIDE RECORDS SUMMARY | 2024-07-26 23:46 | XMS_ITS | Encounter Summary ---
Author Organization [facility] Address [address] [place] [address] Care Team Providers Care Goods Layer Name Role Phone Shilo Soares MD Primary Care Provider [phone] Encounter Details Date Type Department Care Team (Late Contact Info) Description 03/18/2024 External Device Data STL ABSTRACTION Provider, Abstract [...] (Late Contact Info) Description 08/04/2024 1:00 PM SALVAGE WORKER Appointment [facility] 2nd Hi [address] [place] [address] Aviva Humphries MD [address] [place] [address] Infusion Chair 5, 2nd Floor [place] 08/25/2024 1:00 PM SALVAGE WORKER Office Visit [facility] Gynecologic Oncology Hall [address] [place] [address] Edilia Pettit, CHELY [address] [facility] [address] [place] [address] 08/25/2024 1:30 PM SALVAGE WORKER Appointment [facility] 2nd Fl [address] [place] [address] Aviva Humphries MD [address] [place] [address] Infusion Chair 1, 2nd Floor [place] 09/01/2024 10:45 AM SALVAGE WORKER Appointment [facility] Nuclear Medicine [address] [place] [address] [id number] Edilia Pettit, CHELY [address] [address] [place] [address] documented as of this encounter Visit Diagnoses Not on filedocumented in this encounter Care Teams Goods Layer Relationship Specialty Start Date End Date Shilo Soares MD [address] [place] [address] PCP - General Internal Medicine 04/24/23 documented as of this encounter
--- OUTSIDE RECORDS SUMMARY | 2024-07-26 23:46 | XMS_ITS | Encounter Summary ---
Author Organization [facility] Address [address] [place] [address] Care Team Providers Care Professor Of Political Science Name Role Phone Shilo Soares MD Primary Care Provider [phone] Encounter Details Date Type Department Care Team [...] (Late Contact Info) Description 08/04/2024 1:00 PM PRODUCT MARKETER Appointment [facility] 2nd Wy [address] [place] [address] Aviva Humphries MD [address] [place] [address] Infusion Chair 5, 2nd Floor [place] 08/25/2024 1:00 PM PRODUCT MARKETER Office Visit [facility] Gynecologic Oncology Hall [address] [place] [address] Edilia Pettit, CHELY [address] [facility] [address] [place] [address] 08/25/2024 1:30 PM PRODUCT MARKETER Appointment [facility] 2nd Fl [address] [place] [address] Aviva Humphries MD [address] [facility] [facility] [facility] [address] [place] [address] Infusion Chair 1, 2nd Floor [place] 09/01/2024 10:45 AM PRODUCT MARKETER Appointment [facility] Nuclear Medicine [address] [place] [address] [id number] Edilia Pettit, CHELY [address] [facility] [address] [place] [address] documented as of this encounter Visit Diagnoses Not on filedocumented in this encounter Care Teams Professor Of Political Science Relationship Specialty Start Date End Date Shilo Soares MD [address] [place] [address] PCP - General Internal Medicine 04/24/23 documented as of this encounter
--- OUTSIDE RECORDS SUMMARY | 2024-07-26 23:46 | XMS_ITS | Encounter Summary ---
Author Organization [facility] Address [address] [place] [address] Care Team Providers Care Academic Affairs Manager Name Role Phone Shilo Soares MD Primary Care Provider [phone] Encounter Details Date Type Department Care Team [...] (Late Contact Info) Description 08/04/2024 1:00 PM DAY CARE WORKER Appointment [facility] 2nd In [address] [place] [address] Aviva Humphries MD [address] [place] [address] Infusion Chair 5, 2nd Floor [place] 08/25/2024 1:00 PM DAY CARE WORKER Office Visit [facility] Gynecologic Oncology Hall [address] [place] [address] Edilia Pettit, CHELY [address] [place] [address] 08/25/2024 1:30 PM DAY CARE WORKER Appointment [facility] 2nd Fl [address] [place] [address] Aviva Humphries MD [address] [facility] [address] [place] [address] Infusion Chair 1, 2nd Floor [place] 09/01/2024 10:45 AM DAY CARE WORKER Appointment [facility] Nuclear Medicine [address] [place] [address] [id number] Edilia Pettit, CHELY [address] [facility] [address] [place] [address] documented as of this encounter Visit Diagnoses Not on filedocumented in this encounter Care Teams Academic Affairs Manager Relationship Specialty Start Date End Date Shilo Soares MD [address] [place] [address] PCP - General Internal Medicine 04/24/23 documented as of this encounter
--- OUTSIDE RECORDS SUMMARY | 2024-07-26 23:46 | XMS_ITS | Encounter Summary ---
Author Organization [facility] Address [address] [place] [address] Care Team Providers Care Data Recovery Planner Name Role Phone Shilo Soares MD Primary Care Provider [phone] Encounter Details Date Type Department Care Team (Late Contact Info) Description 03/26/2024 External Device Data STL ABSTRACTION Provider, Abstract [...] (Late Contact Info) Description 08/04/2024 1:00 PM FINANCIAL QUANTITATIVE ANALYST Appointment [facility] 2[facility] Co [address] [place] [address] Aviva Humphries MD [address] [place] [address] Infusion Chair 5, 2nd Floor [place] 08/25/2024 1:00 PM FINANCIAL QUANTITATIVE ANALYST Office Visit [facility] Gynecologic Oncology Hall [address] [place] [address] Edilia Pettit, CHELY [address] [facility] [facility] [address] [place] [address] 08/25/2024 1:30 PM FINANCIAL QUANTITATIVE ANALYST Appointment [facility] 2nd Fl [address] [place] [address] Aviva Humphries MD [address] [place] [address] Infusion Chair 1, 2nd Floor [place] 09/01/2024 10:45 AM FINANCIAL QUANTITATIVE ANALYST Appointment [facility] Nuclear Medicine [address] [place] [address] [id number] Edilia Pettit, CHELY [address] [facility] [address] [place] [address] documented as of this encounter Visit Diagnoses Not on filedocumented in this encounter Care Teams Data Recovery Planner Relationship Specialty Start Date End Date Shilo Soares MD [address] [place] [address] PCP - General Internal Medicine 04/24/23 documented as of this encounter
--- OUTSIDE RECORDS SUMMARY | 2024-07-26 23:46 | XMS_ITS | Encounter Summary ---
Author Organization [facility] Address [address] [place] [address] Care Team Providers Care Carbon Dioxide Operator Name Role Phone Shilo Soares MD Primary Care Provider [phone] Encounter Details Date Type Department Care Team [...] (Late Contact Info) Description 08/04/2024 1:00 PM AGRICULTURAL PLOW OPERATOR Appointment [facility] 2nd Nd [address] [place] [address] Aviva Humphries MD [address] [place] [address] Infusion Chair 5, 2nd Floor [place] 08/25/2024 1:00 PM AGRICULTURAL PLOW OPERATOR Office Visit [facility] Gynecologic Oncology Hall [address] [place] [address] Edilia Pettit, CHELY [address] [place] [address] 08/25/2024 1:30 PM AGRICULTURAL PLOW OPERATOR Appointment [facility] 2nd Fl [address] [place] [address] Aviva Humphries MD [address] [facility] [address] [place] [address] Infusion Chair 1, 2nd Floor [place] 09/01/2024 10:45 AM AGRICULTURAL PLOW OPERATOR Appointment [facility] Nuclear Medicine [address] [place] [address] [id number] Edilia Pettit, CHELY [address] [facility] [address] [place] [address] documented as of this encounter Visit Diagnoses Not on filedocumented in this encounter Care Teams Carbon Dioxide Operator Relationship Specialty Start Date End Date Shilo Soares MD [address] [place] [address] PCP - General Internal Medicine 04/24/23 documented as of this encounter
--- OUTSIDE RECORDS SUMMARY | 2024-07-26 23:46 | XMS_ITS | Encounter Summary ---
Author Organization [facility] Address [address] [place] [address] Care Team Providers Care Hardware Installer Name Role Phone Shilo Soares MD Primary Care Provider [phone] Encounter Details Date Type Department Care Team [...] (Late Contact Info) Description 08/04/2024 1:00 PM TUMBLERS SUPERVISOR Appointment [facility] 2nd Ny [address] [place] [address] Aviva Humphries MD [address] [place] [address] Infusion Chair 5, 2nd Floor [place] 08/25/2024 1:00 PM TUMBLERS SUPERVISOR Office Visit [facility] Gynecologic Oncology Hall [address] [place] [address] Edilia Pettit, CHELY [address] [place] [address] 08/25/2024 1:30 PM TUMBLERS SUPERVISOR Appointment [facility] 2nd Fl [address] [place] [address] Aviva Humphries MD [address] [facility] [address] [place] [address] Infusion Chair 1, 2nd Floor [place] 09/01/2024 10:45 AM TUMBLERS SUPERVISOR Appointment [facility] Nuclear Medicine [address] [place] [address] [id number] Edilia Pettit, CHELY [address] [facility] [address] [place] [address] documented as of this encounter Visit Diagnoses Not on filedocumented in this encounter Care Teams Hardware Installer Relationship Specialty Start Date End Date Shilo Soares MD [address] [place] [address] PCP - General Internal Medicine 04/24/23 documented as of this encounter
--- OUTSIDE RECORDS SUMMARY | 2024-07-26 23:46 | XMS_ITS | Encounter Summary ---
Author Organization [facility] Address [address] [place] [address] Care Team Providers Care Gardener Florist Name Role Phone Shilo Soares MD Primary Care Provider [phone] Encounter Details Date Type Department Care Team [...] (Late Contact Info) Description 08/04/2024 1:00 PM POLE CUTTER Appointment [facility] 2nd Nv [address] [place] [address] Aviva Humphries MD [address] [place] [address] Infusion Chair 5, 2nd Floor [place] 08/25/2024 1:00 PM POLE CUTTER Office Visit [facility] Gynecologic Oncology Hall [address] [place] [address] Edilia Pettit, CHELY [address] [facility] [address] [place] [address] 08/25/2024 1:30 PM POLE CUTTER Appointment [facility] 2nd Fl [address] [place] [address] Aviva Humphries MD [address] [place] [address] Infusion Chair 1, 2nd Floor [place] 09/01/2024 10:45 AM POLE CUTTER Appointment [facility] Nuclear Medicine [address] [place] [address] [id number] Edilia Pettit, CHELY [address] [facility] [address] [place] [address] documented as of this encounter Visit Diagnoses Not on filedocumented in this encounter Care Teams Gardener Florist Relationship Specialty Start Date End Date Shilo Soares MD [address] [place] [address] PCP - General Internal Medicine 04/24/23 documented as of this encounter
--- OUTSIDE RECORDS SUMMARY | 2024-07-26 23:46 | XMS_ITS | Encounter Summary ---
Author Organization [facility] Address [address] [place] [address] Care Team Providers Care Pilot Can Router Name Role Phone Shilo Soares MD Primary Care Provider [phone] Encounter Details Date Type Department Care Team [...] (Late Contact Info) Description 08/04/2024 1:00 PM AIR/OCEAN EXPORT CLERK Appointment [facility] 2nd [place] [address] [place] [address] Aviva Humphries MD [address] [place] [address] Infusion Chair 5, 2nd Floor [place] 08/25/2024 1:00 PM AIR/OCEAN EXPORT CLERK Office Visit [facility] Gynecologic Oncology Hall [address] [place] [address] Edilia Pettit, CHELY [address] [address] [facility] [address] [place] [address] 08/25/2024 1:30 PM AIR/OCEAN EXPORT CLERK Appointment [facility] 2nd Fl [address] [place] [address] Aviva Humphries MD [address] [facility] [place] [address] Infusion Chair 1, 2nd Floor [place] 09/01/2024 10:45 AM AIR/OCEAN EXPORT CLERK Appointment [facility] Nuclear Medicine [address] [place] [address] [id number] Edilia Pettit, CHELY [address] [facility] [address] [place] [address] documented as of this encounter Visit Diagnoses Not on filedocumented in this encounter Care Teams Pilot Can Router Relationship Specialty Start Date End Date Shilo Soares MD [address] [place] [address] PCP - General Internal Medicine 04/24/23 documented as of this encounter
--- OUTSIDE RECORDS SUMMARY | 2024-07-26 23:46 | XMS_ITS | Encounter Summary ---
Author Organization [facility] Address [address] [place] [address] Care Team Providers Care Generalist Name Role Phone Shilo Soares MD Primary Care Provider [phone] Encounter Details Date Type Department Care Team [...] (Late Contact Info) Description 08/04/2024 1:00 PM HYDROELECTRIC PRODUCTION TECHNICIAN Appointment [facility] 2nd Nm [address] [place] [address] Aviva Humphries MD [address] [place] [address] Infusion Chair 5, 2nd Floor [place] 08/25/2024 1:00 PM HYDROELECTRIC PRODUCTION TECHNICIAN Office Visit [facility] Gynecologic Oncology Hall [address] [place] [address] Edilia Pettit, CHELY [address] [facility] [facility] [address] [place] [address] 08/25/2024 1:30 PM HYDROELECTRIC PRODUCTION TECHNICIAN Appointment [facility] 2nd Fl [address] [place] [address] Aviva Humphries MD [address] [facility] [address] [place] [address] Infusion Chair 1, 2nd Floor [place] 09/01/2024 10:45 AM HYDROELECTRIC PRODUCTION TECHNICIAN Appointment [facility] Nuclear Medicine [address] [place] [address] [id number] Edilia Pettit, CHELY [address] [facility] [address] [place] [address] documented as of this encounter Visit Diagnoses Not on filedocumented in this encounter Care Teams Generalist Relationship Specialty Start Date End Date Shilo Soares MD [address] [place] [address] PCP - General Internal Medicine 04/24/23 documented as of this encounter
--- OUTSIDE RECORDS SUMMARY | 2024-07-26 23:46 | XMS_ITS | Encounter Summary ---
Author Organization [facility] Address [address] [place] [address] Care Team Providers Care Phone Banker Name Role Phone Shilo Soares MD Primary Care Provider [phone] Encounter Details Date Type Department Care Team [...] (Late Contact Info) Description 08/04/2024 1:00 PM MINES INSPECTOR Appointment [facility] 2nd [place] [address] [place] [address] Aviva Humphries MD [address] [place] [address] Infusion Chair 5, 2nd Floor [place] 08/25/2024 1:00 PM MINES INSPECTOR Office Visit [facility] Gynecologic Oncology Hall [address] [place] [address] Edilia Pettit, CHELY [address] [facility] [address] [place] [address] 08/25/2024 1:30 PM MINES INSPECTOR Appointment [facility] 2nd Fl [address] [place] [address] Aviva Humphries MD [address] [facility] [address] [place] [address] Infusion Chair 1, 2nd Floor [place] 09/01/2024 10:45 AM MINES INSPECTOR Appointment [facility] Nuclear Medicine [address] [place] [address] [id number] Edilia Pettit, CHELY [address] [facility] [address] [place] [address] documented as of this encounter Visit Diagnoses Not on filedocumented in this encounter Care Teams Phone Banker Relationship Specialty Start Date End Date Shilo Soares MD [address] [place] [address] PCP - General Internal Medicine 04/24/23 documented as of this encounter
--- OUTSIDE RECORDS SUMMARY | 2024-07-26 23:46 | XMS_ITS | Encounter Summary ---
Author Organization [facility] Address [address] [place] [address] Care Team Providers Care Special Needs Nanny Name Role Phone Shilo Soares MD Primary Care Provider [phone] Encounter Details Date Type Department Care Team [...] (Late Contact Info) Description 08/04/2024 1:00 PM INDUSTRIAL PRODUCTION MANAGER Appointment [facility] 2nd [place] [address] [place] [address] Aviva Humphries MD [address] [place] [address] Infusion Chair 5, 2nd Floor [place] 08/25/2024 1:00 PM INDUSTRIAL PRODUCTION MANAGER Office Visit [facility] Gynecologic Oncology Hall [address] [place] [address] Edilia Pettit, CHELY [address] [facility] [facility] [address] [place] [address] 08/25/2024 1:30 PM INDUSTRIAL PRODUCTION MANAGER Appointment [facility] 2nd Fl [address] [place] [address] Aviva Humphries MD [address] [place] [address] Infusion Chair 1, 2nd Floor [place] 09/01/2024 10:45 AM INDUSTRIAL PRODUCTION MANAGER Appointment [facility] Nuclear Medicine [address] [place] [address] [id number] Edilia Pettit, CHELY [address] [facility] [address] [place] [address] documented as of this encounter Visit Diagnoses Not on filedocumented in this encounter Care Teams Special Needs Nanny Relationship Specialty Start Date End Date Shiol Soares MD [address] [place] [address] PCP - General Internal Medicine 04/24/23 documented as of this encounter
--- OUTSIDE RECORDS SUMMARY | 2024-07-26 23:46 | XMS_ITS | Encounter Summary ---
Author Organization [facility] Address [address] [place] [address] Care Team Providers Care Sterilizer Operator Name Role Phone Shilo Soares MD Primary Care Provider [phone] Encounter Details Date Type Department Care Team [...] Contact Info) Description 08/04/2024 1:00 PM FINANCIAL RISK MANAGER Appointment [facility] [address] [place] [address] Aviva Humphries MD [address] [place] [address] Infusion Chair 5, 2nd Floor Hall 08/25/2024 1:00 PM FINANCIAL RISK MANAGER Office Visit [facility] Gynecologic Oncology Hall [address] [place] [address] Edilia Pettit, CHELY [address] [place] [address] 08/25/2024 1:30 PM FINANCIAL RISK MANAGER Appointment [facility] 2nd Fl [address] [place] [address] Aviva Humphries MD [address] [place] [address] Infusion Chair 1, 2nd Floor [place] 09/01/2024 10:45 AM FINANCIAL RISK MANAGER Appointment [facility] Nuclear Medicine [address] [place] [address] [id number] Edilia Pettit, CHELY [address] [facility] [address] [place] [address] documented as of this encounter Visit Diagnoses Not on filedocumented in this encounter Care Teams Sterilizer Operator Relationship Specialty Start Date End Date Shilo Soares MD [address] [place] [address] PCP - General Internal Medicine 04/24/23 documented as of this encounter
--- OUTSIDE RECORDS SUMMARY | 2024-07-26 23:46 | XMS_ITS | Encounter Summary ---
Author Organization [facility] Address [address] [place] [address] Care Team Providers Care Grounds Worker Name Role Phone Shilo Soares MD Primary Care Provider [phone] Encounter Details Date Type Department Care Team (Late Contact Info) Description 03/16/2024 External Device Data STL ABSTRACTION Provider, Abstract [...] (Late Contact Info) Description 08/04/2024 1:00 PM TARP REPAIRER Appointment [facility] In [address] [place] [address] Aviva Humphries MD [address] [place] [address] Infusion Chair 5, 2nd Floor Hall 08/25/2024 1:00 PM TARP REPAIRER Office Visit [facility] Gynecologic Oncology Hall [address] [place] [address] Edilia Pettit, CHELY [address] [place] [address] 08/25/2024 1:30 PM TARP REPAIRER Appointment [facility] 2nd Fl [address] [place] [address] Aviva Humphries MD [address] [place] [address] Infusion Chair 1, 2nd Floor [place] 09/01/2024 10:45 AM TARP REPAIRER Appointment [facility] Nuclear Medicine [address] [place] [address] [id number] Edilia Pettit, CHELY [address] [facility] [address] [place] [address] documented as of this encounter Visit Diagnoses Not on filedocumented in this encounter Care Teams Grounds Worker Relationship Specialty Start Date End Date Shilo Soares MD [address] [place] [address] PCP - General Internal Medicine 04/24/23 documented as of this encounter
--- OUTSIDE RECORDS SUMMARY | 2024-07-26 23:46 | XMS_ITS | Encounter Summary ---
Author Organization [facility] Address [address] [place] [address] Care Team Providers Care Chip Loft Worker Name Role Phone Shilo Soares MD Primary Care Provider [phone] Encounter Details Date Type Department Care Team [...] (Late Contact Info) Description 08/04/2024 1:00 PM ELECTRONIC NEWS GATHERING CAMERA PERSON Appointment [facility] 2[facility] Ut [address] [place] [address] Aviva Humphries MD [address] [place] [address] Infusion Chair 5, 2nd Floor Hall 08/25/2024 1:00 PM ELECTRONIC NEWS GATHERING CAMERA PERSON Office Visit [facility] Gynecologic Oncology Hall [address] [place] [address] Edilia Pettit, CHELY [address] [place] [address] 08/25/2024 1:30 PM ELECTRONIC NEWS GATHERING CAMERA PERSON Appointment [facility] 2nd Fl [address] [place] [address] Aviva Humphries MD [address] [place] [address] Infusion Chair 1, 2nd Floor [place] 09/01/2024 10:45 AM ELECTRONIC NEWS GATHERING CAMERA PERSON Appointment [facility] Nuclear Medicine [address] [place] [address] [id number] Edilia Pettit, CHELY [address] [facility] [address] [place] [address] documented as of this encounter Visit Diagnoses Not on filedocumented in this encounter Care Teams Chip Loft Worker Relationship Specialty Start Date End Date Shilo Soares MD [address] [place] [address] PCP - General Internal Medicine 04/24/23 documented as of this encounter
--- OUTSIDE RECORDS SUMMARY | 2024-07-26 23:46 | XMS_ITS | Encounter Summary ---
Author Organization [facility] Address [address] [place] [address] Care Team Providers Care Bookbinder Chief Name Role Phone Shilo Soares MD Primary Care Provider [phone] Encounter Details Date Type Department Care Team (Late Contact Info) Description 03/27/2024 External Device Data STL ABSTRACTION Provider, Abstract [...] (Late Contact Info) Description 08/04/2024 1:00 PM MEDICAL INSURANCE VERIFIER Appointment [facility] Ri [address] [place] [address] Aviva Humphries MD [address] [place] [address] Infusion Chair 5, 2nd Floor Hall 08/25/2024 1:00 PM MEDICAL INSURANCE VERIFIER Office Visit [facility] Gynecologic Oncology Hall [address] [place] [address] Edilia Pettit, CHELY [address] [address] [place] [address] 08/25/2024 1:30 PM MEDICAL INSURANCE VERIFIER Appointment [facility] 2nd Fl [address] [place] [address] Aviva Humphries MD [address] [facility] [address] [place] [address] Infusion Chair 1, 2nd Floor [place] 09/01/2024 10:45 AM MEDICAL INSURANCE VERIFIER Appointment [facility] Nuclear Medicine [address] [place] [address] [id number] Edilia Pettit, CHELY [address] [facility] [address] [place] [address] documented as of this encounter Visit Diagnoses Not on filedocumented in this encounter Care Teams Bookbinder Chief Relationship Specialty Start Date End Date Shilo Soares MD [address] [place] [address] PCP - General Internal Medicine 04/24/23 documented as of this encounter
--- OUTSIDE RECORDS SUMMARY | 2024-07-26 23:46 | XMS_ITS | Encounter Summary ---
Author Organization [facility] Address [address] [place] [address] Care Team Providers Care Instruction Dean Name Role Phone Shilo Soares MD Primary Care Provider [phone] Encounter Details Date Type Department Care Team [...] (Late Contact Info) Description 08/04/2024 1:[address] FREIGHT Appointment [facility] 2nd Sd [address] [place] [address] Aviva Humphries MD [address] [place] [address] Infusion Chair 5, 2nd Floor Hall 08/25/2024 1:[address] FREIGHT Office Visit [facility] Gynecologic Oncology Hall [address] [place] [address] Edilia Pettit, CHELY [address] [facility] [address] [place] [address] 08/25/2024 1:[address] FREIGHT Appointment [facility] 2nd Fl [address] [place] [address] Aviva Humphries MD [address] [facility] [address] [place] [address] Infusion Chair 1, 2nd Floor [place] 09/01/2024 10:[address] F[address]IGHT Appointment [facility] Nuclear Medicine [address] [place] [address] [id number] Edilia Pettit, CHELY [address] [facility] [address] [place] [address] documented as of this encounter Visit Diagnoses Not on filedocumented in this encounter Care Teams Instruction Dean Relationship Specialty Start Date End Date Shilo Soares MD [address] [place] [address] PCP - General Internal Medicine 04/24/23 documented as of this encounter
--- OUTSIDE RECORDS SUMMARY | 2024-07-26 23:46 | XMS_ITS | Encounter Summary ---
Author Organization [facility] Address [address] [place] [address] Care Team Providers Care Assistant Production Manager Name Role Phone Shilo Soares MD Primary Care Provider [phone] Encounter Details Date Type Department Care Team [...] (Late Contact Info) Description 08/04/2024 1:00 PM EQUIPMENT SCHEDULER Appointment [facility] 2nd [place] [address] [place] [address] Aviva Humphries MD [address] [place] [address] Infusion Chair 5, 2nd Floor Hall 08/25/2024 1:00 PM EQUIPMENT SCHEDULER Office Visit [facility] Gynecologic Oncology Hall [address] [place] [address] Edilia Pettit, CHELY [address] [facility] [address] [place] [address] 08/25/2024 1:30 PM EQUIPMENT SCHEDULER Appointment [facility] 2nd Fl [address] [place] [address] Aviva Humphries MD [address] [facility] [address] [place] [address] Infusion Chair 1, 2nd Floor [place] 09/01/2024 10:45 AM EQUIPMENT SCHEDULER Appointment [facility] Nuclear Medicine [address] [place] [address] [id number] Edilia Pettit, CHELY [address] [facility] [address] [place] [address] documented as of this encounter Visit Diagnoses Not on filedocumented in this encounter Care Teams Assistant Production Manager Relationship Specialty Start Date End Date Shilo Soares MD [address] [place] [address] PCP - General Internal Medicine 04/24/23 documented as of this encounter
--- OUTSIDE RECORDS SUMMARY | 2024-07-26 23:47 | XMS_ITS | Encounter Summary ---
Author Organization [facility] Address [address] [place] [address] Care Team Providers Care Securities Vault Supervisor Name Role Phone Shilo Soares MD Primary Care Provider [phone] Encounter Details Date Type Department Care Team (Late Contact Info) Description 03/02/2024 External Device Data STL ABSTRACTION Provider, Abstract [...] (Late Contact Info) Description 08/04/2024 1:00 PM WASH PLANT OPERATOR Appointment [facility] 2nd Md [address] [place] [address] Aviva Humphries MD [address] [place] [address] Infusion Chair 5, 2nd Floor Hall 08/25/2024 1:00 PM WASH PLANT OPERATOR Office Visit [facility] Gynecologic Oncology Hall [address] [place] [address] Edilia Pettit, CHELY [address] [facility] [facility] [address] [place] [address] 08/25/2024 1:30 PM WASH PLANT OPERATOR Appointment [facility] 2nd Fl [address] [place] [address] Aviva Humphries MD [address] [facility] [address] [place] [address] Infusion Chair 1, 2nd Floor [place] 09/01/2024 10:45 AM WASH PLANT OPERATOR Appointment [facility] Nuclear Medicine [address] [place] [address] [id number] Edilia Pettit, CHELY [address] [facility] [address] [place] [address] documented as of this encounter Visit Diagnoses Not on filedocumented in this encounter Care Teams Securities Vault Supervisor Relationship Specialty Start Date End Date Shilo Soares MD [address] [place] [address] PCP - General Internal Medicine 04/24/23 documented as of this encounter
--- OUTSIDE RECORDS SUMMARY | 2024-07-26 23:47 | XMS_ITS | Encounter Summary ---
Author Organization [facility] Address [address] [place] [address] Care Team Providers Care Face Burler Name Role Phone Shilo Soares MD Primary Care Provider [phone] Encounter Details Date Type Department Care Team (Late Contact Info) Description 02/29/2024 External Device Data STL ABSTRACTION Provider, Abstract [...] (Late Contact Info) Description 08/04/2024 1:00 PM ORDER ENTRY SPECIALIST Appointment [facility] 2nd [place] [address] [place] [address] Aviva Humphries MD [address] [place] [address] Infusion Chair 5, 2nd Floor Hall 08/25/2024 1:00 PM ORDER ENTRY SPECIALIST Office Visit [facility] Gynecologic Oncology Hall [address] [place] [address] Edilia Pettit, CHELY [address] [address] [place] [address] 08/25/2024 1:30 PM ORDER ENTRY SPECIALIST Appointment [facility] 2nd Fl [address] [place] [address] Aviva Humphries MD [address] [facility] [address] [place] [address] Infusion Chair 1, 2nd Floor [place] 09/01/2024 10:45 AM ORDER ENTRY SPECIALIST Appointment [facility] Nuclear Medicine [address] [place] [address] [id number] Edilia Pettit, CHELY [address] [facility] [address] [place] [address] documented as of this encounter Visit Diagnoses Not on filedocumented in this encounter Care Teams Face Burler Relationship Specialty Start Date End Date Shilo Soares MD [address] [place] [address] PCP - General Internal Medicine 04/24/23 documented as of this encounter
--- OUTSIDE RECORDS SUMMARY | 2024-07-26 23:47 | XMS_ITS | Encounter Summary ---
Author Organization [facility] Address [address] [place] [address] Care Team Providers Care Rope Laying Machine Operator Name Role Phone Shilo Soares MD Primary Care Provider [phone] Encounter Details Date Type Department Care Team (Late Contact Info) Description 03/10/2024 External Device Data STL ABSTRACTION Provider, Abstract [...] (Late Contact Info) Description 08/04/2024 1:00 PM BRICK MOLDER HAND Appointment [facility] 2nd N[place] [address] [place] [address] Aviva Humphries MD [address] [place] [address] Infusion Chair 5, 2nd Floor Hall 08/25/2024 1:00 PM BRICK MOLDER HAND Office Visit [facility] Gynecologic Oncology Hall [address] [place] [address] Edilia Pettit, CHELY [address] [facility] [address] [place] [address] 08/25/2024 1:30 PM BRICK MOLDER HAND Appointment [facility] 2nd Fl [address] [place] [address] Aviva Humphries MD [address] [facility] [address] [place] [address] Infusion Chair 1, 2nd Floor [place] 09/01/2024 10:45 AM BRICK MOLDER HAND Appointment [facility] Nuclear Medicine [address] [place] [address] [id number] Edilia Pettit, CHELY [address] [facility] [address] [place] [address] documented as of this encounter Visit Diagnoses Not on filedocumented in this encounter Care Teams Rope Laying Machine Operator Relationship Specialty Start Date End Date Shilo Soares MD [address] [place] [address] PCP - General Internal Medicine 04/24/23 documented as of this encounter
--- OUTSIDE RECORDS SUMMARY | 2024-07-26 23:47 | XMS_ITS | Encounter Summary ---
Author Organization [facility] Address [address] [place] [address] Care Team Providers Care Teacher Citizenship Name Role Phone Shilo Soares MD Primary Care Provider [phone] Encounter Details Date Type Department Care Team [...] (Late Contact Info) Description 08/04/2024 1:00 PM BASKET BRAIDER Appointment [facility] 2[facility] Ca [address] [place] [address] Aviva Humphries MD [address] [place] [address] Infusion Chair 5, 2nd Floor Hall 08/25/2024 1:00 PM BASKET BRAIDER Office Visit [facility] Gynecologic Oncology Hall [address] [place] [address] Edilia Pettit, CHELY [address] [facility] [address] [place] [address] 08/25/2024 1:30 PM BASKET BRAIDER Appointment [facility] 2nd Fl [address] [place] [address] Aviva Humphries MD [address] [facility] [address] [place] [address] Infusion Chair 1, 2nd Floor [place] 09/01/2024 10:45 AM BASKET BRAIDER Appointment [facility] Nuclear Medicine [address] [place] [address] [id number] Edilia Pettit, CHELY [address] [facility] [address] [place] [address] documented as of this encounter Visit Diagnoses Not on filedocumented in this encounter Care Teams Teacher Citizenship Relationship Specialty Start Date End Date Shilo Soares MD [address] [place] [address] PCP - General Internal Medicine 04/24/23 documented as of this encounter
--- OUTSIDE RECORDS SUMMARY | 2024-07-26 23:47 | XMS_ITS | Encounter Summary ---
Author Organization [facility] Address [address] [place] [address] Care Team Providers Care Pet Resort Concierge Name Role Phone Shilo Soares MD Primary Care Provider [phone] Encounter Details Date Type Department Care Team (Late Contact Info) Description 03/11/2024 External Device Data STL ABSTRACTION Provider, Abstract [...] (Late Contact Info) Description 08/04/2024 1:00 PM COTTON TIER Appointment [facility] 2nd [place] [address] [place] [address] Aviva Humphries MD [address] [place] [address] Infusion Chair 5, 2nd Floor Hall 08/25/2024 1:00 PM COTTON TIER Office Visit [facility] Gynecologic Oncology Hall [address] [place] [address] Edilia Pettit, CHELY [address] [facility] [address] [place] [address] 08/25/2024 1:30 PM COTTON TIER Appointment [facility] 2nd Fl [address] [place] [address] Aviva Humphries MD [address] [facility] [address] [place] [address] Infusion Chair 1, 2nd Floor [place] 09/01/2024 10:45 AM COTTON TIER Appointment [facility] Nuclear Medicine [address] [place] [address] [id number] Edilia Pettit, CHELY [address] [facility] [address] [place] [address] documented as of this encounter Visit Diagnoses Not on filedocumented in this encounter Care Teams Pet Resort Concierge Relationship Specialty Start Date End Date Shilo Soares MD [address] [place] [address] PCP - General Internal Medicine 04/24/23 documented as of this encounter
--- OUTSIDE RECORDS SUMMARY | 2024-07-26 23:47 | XMS_ITS | Encounter Summary ---
Author Organization [facility] Address [address] [place] [address] Care Team Providers Care Frit Mixer And Burner Name Role Phone Shilo Soares MD Primary Care Provider [phone] Encounter Details Date Type Department Care Team (Late Contact Info) Description 03/09/2024 External Device Data STL ABSTRACTION Provider, Abstract [...] (Late Contact Info) Description 08/04/2024 1:00 PM BEATER ROOM SUPERVISOR Appointment [facility] 2nd [place] [address] [place] [address] Aviva Humphries MD [address] [place] [address] Infusion Chair 5, 2nd Floor [place] 08/25/2024 1:00 PM BEATER ROOM SUPERVISOR Office Visit [facility] Gynecologic Oncology Hall [address] [place] [address] Edilia Pettit, CHELY [address] [facility] [address] [place] [address] 08/25/2024 1:30 PM BEATER ROOM SUPERVISOR Appointment [facility] 2nd Fl [address] [place] [address] Aviva Humphries MD [address] [place] [address] Infusion Chair 1, 2nd Floor [place] 09/01/2024 10:45 AM BEATER ROOM SUPERVISOR Appointment [facility] Nuclear Medicine [address] [place] [address] [id number] Edilia Pettit, CHELY [address] [facility] [address] [place] [address] documented as of this encounter Visit Diagnoses Not on filedocumented in this encounter Care Teams Frit Mixer And Burner Relationship Specialty Start Date End Date Shilo Soares MD [address] [place] [address] PCP - General Internal Medicine 04/24/23 documented as of this encounter
--- OUTSIDE RECORDS SUMMARY | 2024-07-26 23:47 | XMS_ITS | Encounter Summary ---
Author Organization [facility] Address [address] [place] [address] Care Team Providers Care Stripper Cutter Machine Name Role Phone Shilo Soares MD Primary Care Provider [phone] Encounter Details Date Type Department Care Team (Late Contact Info) Description 03/03/2024 External Device Data STL ABSTRACTION Provider, Abstract [...] (Late Contact Info) Description 08/04/2024 1:00 PM FITTING ROOM MAINTENANCE MECHANIC Appointment [facility] 2nd [place] [address] [place] [address] Aviva Humphries MD [address] [place] [address] Infusion Chair 5, 2nd Floor [place] 08/25/2024 1:00 PM FITTING ROOM MAINTENANCE MECHANIC Office Visit [facility] Gynecologic Oncology Hall [address] [place] [address] Edilia Pettit, CHELY [address] [facility] [address] [place] [address] 08/25/2024 1:30 PM FITTING ROOM MAINTENANCE MECHANIC Appointment [facility] 2nd Fl [address] [place] [address] Aviva Humphries MD [address] [facility] [address] [place] [address] Infusion Chair 1, 2nd Floor [place] 09/01/2024 10:45 AM FITTING ROOM MAINTENANCE MECHANIC Appointment [facility] Nuclear Medicine [address] [place] [address] [id number] Edilia Pettit, CHELY [address] [facility] [address] [place] [address] documented as of this encounter Visit Diagnoses Not on filedocumented in this encounter Care Teams Stripper Cutter Machine Relationship Specialty Start Date End Date Shilo Soares MD [address] [place] [address] PCP - General Internal Medicine 04/24/23 documented as of this encounter
--- OUTSIDE RECORDS SUMMARY | 2024-07-26 23:47 | XMS_ITS | Encounter Summary ---
Author Organization [facility] Address [address] [place] [address] Care Team Providers Care Lamp Shade Joiner Name Role Phone Shilo Soares MD Primary Care Provider [phone] Encounter Details Date Type Department Care Team [...] (Late Contact Info) Description 08/04/2024 1:00 PM PROOF PRESS OPERATOR Appointment [facility] [place] [address] [place] [address] Aviva Humphries MD [address] [place] [address] Infusion Chair 5, 2nd Floor Hall 08/25/2024 1:00 PM PROOF PRESS OPERATOR Office Visit [facility] Gynecologic Oncology Hall [address] [place] [address] Edilia Pettit, CHELY [address] [place] [address] 08/25/2024 1:30 PM PROOF PRESS OPERATOR Appointment [facility] 2nd Fl [address] [place] [address] Aviva Humphries MD [address] [place] [address] Infusion Chair 1, 2nd Floor [place] 09/01/2024 10:45 AM PROOF PRESS OPERATOR Appointment Randy [facility] Nuclear Medicine [address] [place] [address] [id number] Edilia Pettit, CHELY [address] [facility] [address] [place] [address] documented as of this encounter Visit Diagnoses Not on filedocumented in this encounter Care Teams Lamp Shade Joiner Relationship Specialty Start Date End Date Shilo Soares MD [address] [place] [address] PCP - General Internal Medicine 04/24/23 documented as of this encounter
--- OUTSIDE RECORDS SUMMARY | 2024-07-26 23:47 | XMS_ITS | Encounter Summary ---
Author Organization [facility] Address [address] [place] [address] Care Team Providers Care Welt Sole Layer Name Role Phone Shilo Soares MD Primary Care Provider [phone] Encounter Details Date Type Department Care Team (Late Contact Info) Description 02/27/2024 External Device Data STL ABSTRACTION Provider, Abstract [...] Contact Info) Description 08/04/2024 1:00 PM PHARMACY HELPER Appointment [facility] [place] [address] [place] [address] Aviva Humphries MD [address] [place] [address] Infusion Chair 5, 2nd Floor Hall 08/25/2024 1:00 PM PHARMACY HELPER Office Visit [facility] Gynecologic Oncology Hall [address] [place] [address] Edilia Pettit, CHELY [address] [place] [address] 08/25/2024 1:30 PM PHARMACY HELPER Appointment [facility] 2nd Fl [address] [place] [address] Aviva Humphries MD [address] [place] [address] Infusion Chair 1, 2nd Floor [place] 09/01/2024 10:45 AM PHARMACY HELPER Appointment Randy [facility] Nuclear Medicine [address] [place] [address] [id number] Edilia Pettit, CHELY [address] [facility] [address] [place] [address] documented as of this encounter Visit Diagnoses Not on filedocumented in this encounter Care Teams Welt Sole Layer Relationship Specialty Start Date End Date Shilo Soares MD [address] [place] [address] PCP - General Internal Medicine 04/24/23 documented as of this encounter
--- OUTSIDE RECORDS SUMMARY | 2024-07-26 23:47 | XMS_ITS | Encounter Summary ---
Author Organization [facility] Address [address] [place] [address] Care Team Providers Care Rehabilitation Services Counselor Name Role Phone Shilo Soares MD Primary Care Provider [phone] Encounter Details Date Type Department Care Team (Latest Contact Info) Description 03/09/2024 10:05 AM CDT - 03/09/2024 11:59 PM CDT Hospital Encounter [facility] [address] [place] [address] Aviva Humphries MD [address] [place] [address] Discharge Disposition: Home or Self [...] bedtime. 02/26/2021 fluticasone propionate (FLONASE) 50 mcg/spray Atlas, Suspension nasal inhaler Administer 2 Sprays in [...] st Contact Info) Description 08/04/2024 1:00 PM POWER HOUSE CONTROL ROOM OPERATOR Appointment [facility] Center 2nd Fl [address] [place] [address] Aviva Humphries MD [address] [place] [address] Infusion Chair 5, 2nd Floor Hall 08/25/2024 1:00 PM POWER HOUSE CONTROL ROOM OPERATOR Office Visit [facility] Gynecologic Oncology Hall [address] [facility] [address] [place] [address] Edilia Pettit NP [address] [facility] [address] [place] [address] 08/25/2024 1:30 PM POWER HOUSE CONTROL ROOM OPERATOR Appointment Randy [facility] [address] [place] [address] Aviva Humphries MD [address] [facility] [address] [place] [address] Infusion Chair 1, 2nd Floor [place] 09/01/2024 10:45 AM POWER HOUSE CONTROL ROOM OPERATOR Appointment Randy [facility] Nuclear Medicine [address] [place] [address] [id number] Edilia Pettit, CHELY [address] [facility] [address] [place] [address] documented as of this encounter Procedures Procedure Name Priority Date/Time Associated Diagnosis Comments DIFFERENTIAL, MANUAL Stat 03/09/2024 10:09 AM CDT Malignant neoplasm of ovary, unspecified laterality URINALYSIS WITH REFLEX CULTURE Stat 03/09/2024 10:09 AM CDT Malignant neoplasm of ovary, unspecified laterality CBC WITH DIFFERENTIAL Stat 03/09/2024 10:09 AM CDT Malignant neoplasm of ovary, unspecified laterality CANCER ANTIGEN 125 Routine 03/09/2024 10 :09 AM CDT Malignant neoplasm of ovary, unspecified laterality COMPREHENSIVE METABOLIC PANEL Stat 03/09/2024 10:09 AM CDT Malignant neoplasm of ovary, unspecified laterality documented in this encounter Results * MANUAL DIFFERENTIAL (03/09/2024 10:09 AM CDT) PLATELET EST. Consistent w Count 03/09/2024 10:56 AM CDT [facility] ANISOCYTOSIS 2+ /hpf 03/09/2024 10:56 AM CDT [facility] POIKILOCYTES 1+ /hpf 03/09/2024 10:56 AM CDT [facility] MACROCYTES 2+ /hpf 03/09/2024 10:56 AM CDT [facility] OVALOCYTES 1+ /hpf 03/09/2024 10:56 AM T [facility] Blood Collection / Unknown 03/09/2024 10:09 AM CDT 03/09/2024 10:30 AM CDT Aviva Humphries MD HEMATOLOGY ORDERABLE S COM [facility]# [id number] [address] [place] [address] * (ABNORMAL) URINALYSIS WITH REFLEX CULTURE (03/09/2024 10:09 AM CDT) COLOR UA Pale Yellow Pale to Dark Yellow 03/09/2024 10:45 AM T [facility] CLARITY UA Clear Clear 03/09/2024 10:45 AM T [facility] - . [facility] SPECIFIC GRAVITY UA 1.003 1.003 - 1.035 03/09/2024 10:45 AM T [facility] - . [facility] PH UA 6.0 5.0 - 8.0 03/09/2024 10:45 AM T [facility] . [facility] LEUKOCYTE ESTERASE UA Negative Negative 03/09/2024 10:45 AM T [facility] NITRITE UA Negative Negative 03/09/2024 10:45 AM T [facility] . [facility] PROTEIN UA Negative Negative 03/09/2024 10:45 AM CDT [facility] GLUCOSE UA Negative Negative 03/09/2024 10:45 AM CDT [facility] KETONES UA Negative Negative 03/09/2024 10:45 AM T [facility] UROBILINOGEN UA Normal <2.0 mg/dL 10:45 AM T [facility] BILIRUBIN UA Negative Negative 03/09/2024 10:45 AM T [facility] BLOOD UA 1+(A) Negative 03/09/2024 10:45 AM CDT [facility] WBC UA 0-2 0 - 2 /hpf 03/09/2024 10:45 AM T [facility] [employer] RBC UA 0-2 0 - 2 /hpf 03/09/2024 10:45 AM T [facility] BACTERIA UA 1+(A) Negative /hpf 03/09/2024 10:45 AM [facility] EPITHELIAL CELLS, URINE 0-5 0 - 5 /hpf 03/09/2024 10:45 AM [facility] Urine URINE SPECIMEN OBTAINED BY CLEAN CATCH PROCEDURE / Unknown Collection / Unknown 03/09/2024 10:09 AM CDT 03/09/2024 10:24 AM CDT Aviva Humphries MD URINE ORDERABLES [facility]# [id number] [address] [facility] [place] [address] * CANCER ANTIGEN 125 (03/09/2024 10:09 AM CDT) CA 125 6 <35 U/mL [facility] Comment: This test was performed using the Siemens Chemiluminescent method. Values obtained from different assay methods cannot be used interchangeably. CA 125 levels, regardless of value, should not be interpreted as absolute evidence of the presence or absence of disease. Test Performed at: [facility] [address] [place], [place] ??[address] Radha Perez MD Blood 03/09/2024 10:0 9 AM CDT 03/09/2024 10:19 AM CDT Aviva Humphries MD CHEMISTRY ORDERABLES [facility] [phone] [facility] [address] [place] [address] * (ABNORMAL) COMPREHENSIVE METABOLIC PANEL (03/09/2024 10:09 AM CDT) SODIUM 137 136 - 145 mmol/L 03/09/2024 11:11 AM CDT [facility] POTASSIUM 3.9 3.5 - 5.0 mmol/L 03/09/2024 11:11 AM CDT [facility] CHLORIDE 103 98 - 107 mmol/L 03/09/2024 11:11 AM CDT [facility] CO2 23 22 - 29 mmol/L 03/09/2024 11:11 AM CDT [facility] CALCIUM 9.6 8.6 - 10.2 mg/dL 03/09/2024 11:11 AM CDT [facility] BUN 9 8 - 23 mg/dL 03/09/2024 11:11 AM CDT [facility] CREATININE 1.01(H) 0.51 - 0.95 mg/dL 03/09/2024 11:11 AM CDT [facility] GLUCOSE 132(H) 74 - 99 mg/dL 03/09/2024 11:11 AM CDT [facility] TOTAL PROTEIN 6.8 6.7 - 8.6 g/dL 03/09/2024 11:11 AM CDT [facility] ALBUMIN 4.3 3.5 - 5.2 g/dL 03/09/2024 11:11 AM CDT [facility] BILIRUBIN TOTAL 0.4 0.2 - 1.1 mg/dL 03/09/2024 11:11 AM [facility] ALKALINE PHOSPHATASE 78 35 - 104 U/L 03/09/2024 11:11 AM [facility] AST 27 <33 U/L 03/09/2024 11:11 AM [facility] ALT 28 <34 U/L 03/09/2024 11:11 AM [facility] GFR >60 >=60 mL/min/1.7 3 sq meter 03/09/2024 11:11 AM [facility] Comment:eGFR calculated with 2020 CKD-EPI equation. Vegetarian diet, extremely high or low muscle mass, and may affect results. Cystatin C with Glomerular Filtration Rate is a suitable alternative for these patients. ANION GAP 11 8 - 16 mmol/L 03/09/2024 11:11 AM [facility] Blood Collection / Unknown 03/09/2024 10:09 AM CDT 03/09/2024 10:24 AM T [facility] - 03/09/2024 11:11 AM [facility] Samples containing indocyanine green cause interferences on Total and/or Direct Bilirubin and must not be measured. Aviva Humphries MD CHEMISTRY ORDERABLES [facility]# [id number] [address] [place] [address] * (ABNORMAL) CBC WITH DIFFERENTIAL (03/09/2024 10:09 AM CDT) Pathologist [facility] WBC 5.2 4.0 - 9.8 K/uL 03/09/2024 10:34 AM [facility] RBC 2.69(L) 3.90 - 4.90 M/uL 03/09/2024 10:34 AM [facility] HEMOGLOBIN 10.3(L) 11.8 - 14.8 g/dL 03/09/2024 10:34 AM [facility] HEMATOCRIT 30.1(L) 35.5 - 44.0 % 03/09/2024 10:34 AM CDT [facility] - . [facility] MCV 111.9(H) 82.0 - 99.0 fL 03/09/2024 10:34 AM CDT [facility] MCH 38.3(H) 27.2 - 32.6 pg 03/09/2024 10:34 AM CDT [facility] MCHC 34.2 31.5 - 35.5 g/dL 03/09/2024 10:34 AM CDT [facility] RDW 20.4(H) 11.5 - 14.5 % 03/09/2024 10:34 AM CDT [facility] - . [facility] RDW-STDEV 85.0(H) 37.1 - 48.7 fL 03/09/2024 10:34 AM CDT [facility] PLATELETS 141 140 - 350 K/uL 03/09/2024 10:34 AM CDT [facility] MPV 10.2 9.3 - 12.4 fL 03/09/2024 10:34 AM CDT [facility] NEUTROPHILS 59 % 03/09/2024 10:34 AM CDT [facility] LYMPHOCYTES 34 % 03/09/2024 10:34 AM CDT [facility] MONOCYTES 5 % 03/09/2024 10:34 AM CDT [facility] EOSINOPHILS 1 % 03/09/2024 10:34 AM CDT [facility] BASOPHILS 1 % 03/09/2024 10:34 AM CDT [facility] IMMATURE GRANULOCYTES 0 % 03/09/2024 10:34 AM CDT [facility] NEUTROPHIL ABSOLUTE 3.06 1.90 - 7.00 K/uL 03/09/2024 10:34 AM CDT [facility] LYMPHOCYTE ABSOLUTE 1.79 0.70 - 4.50 K/uL 03/09/2024 10:34 AM CDT [facility] MONOCYTE ABSOLUTE 0.25 0.10 - 1.30 K/uL 03/09/2024 10:34 AM CDT [facility] EOSINOPHIL ABSOLUTE 0.05 0.00 - 0.70 K/uL 03/09/2024 10:34 AM CDT [facility] LABORATORY SERVICES - . [facility] BASOPHILS ABSOLUTE 0.04 0.00 - 0.20 K/uL 03/09/2024 10:34 AM CDT [facility] LABORATORY SERVICES - . [facility] IMMATURE GRANULOCYTES ABSOLUTE 0.02 0.00 - 0.03 K/uL 03/09/2024 10:34 AM CDT [facility] Blood Collection / Unknown 03/09/2024 10:09 AM CDT 03/09/2024 10:30 AM CDT Aviva Humphries MD HEMATOLOGY ORDERABLE S [facility] LABORATORY [facility] CLIA# [id number] [address] [facility] [place] [address] documented in this encounter Visit Diagnoses Diagnosis Malignant neoplasm of ovary, unspecified laterality- Primary documented in this encounter Administered Medications Inactive Administered Medications - up to 3 most recent administrations Medication Order MAR Action Action Date Dose Rate Site heparin, porcine (pf) 10 unit/mL IV syringe 50 Units 50 Units, IV, SEE ADMIN INSTRUCTIONS, Starting on Thu03/09/24 at 1007, Until Peace 03/10/24 at 0318, Routine Given 03/09/2024 10:10 AM CDT 50 Units sodium chloride flush injection 20 mL 20 mL, IV, SEE ADMIN INSTRUCTIONS, Starting on Thu03/09/24 at 1007, Until Peace 03/10/24 at 0318, Routine Given 03/09/2024 10:10 AM CDT 20 mL documented in this encounter Care Teams Rehabilitation Services Counselor Relationship Specialty Start Date End Date Shilo Soares MD [address] [place] [address] PCP - General Internal Medicine 04/24/23 documented as of this encounter
--- OUTSIDE RECORDS SUMMARY | 2024-07-26 23:47 | XMS_ITS | Encounter Summary ---
Author Organization [facility] Address [address] [place] [address] Care Team Providers Care Websphere Message Broker Developer Name Role Phone Shilo Soares MD Primary Care Provider [phone] Encounter Details Date Type Department Care Team (Late Contact Info) Description 03/06/2024 External Device Data STL ABSTRACTION Provider, Abstract [...] (Late Contact Info) Description 08/04/2024 1:00 PM BENEFITS ANALYST Appointment [facility] 2nd [place] [address] [place] [address] Aviva Humphries MD [address] [place] [address] Infusion Chair 5, 2nd Floor Hall 08/25/2024 1:00 PM BENEFITS ANALYST Office Visit [facility] Gynecologic Oncology Hall [address] [place] [address] Edilia Pettit, CHELY [address] [facility] [address] [place] [address] 08/25/2024 1:30 PM BENEFITS ANALYST Appointment [facility] 2nd Fl [address] [place] [address] Aviva Humphries MD [address] [place] [address] Infusion Chair 1, 2nd Floor [place] 09/01/2024 10:45 AM BENEFITS ANALYST Appointment Randy [facility] Nuclear Medicine [address] [place] [address] [id number] Edilia Pettit, CHELY [address] [facility] [address] [place] [address] documented as of this encounter Visit Diagnoses Not on filedocumented in this encounter Care Teams Websphere Message Broker Developer Relationship Specialty Start Date End Date Shilo Soares MD [address] [place] [address] PCP - General Internal Medicine 04/24/23 documented as of this encounter
--- OUTSIDE RECORDS SUMMARY | 2024-07-26 23:47 | XMS_ITS | Encounter Summary ---
Author Organization [facility] Address [address] [place] [address] Care Team Providers Care Extension Service Advisor Name Role Phone Shilo Soares MD Primary Care Provider [phone] Encounter Details Date Type Department Care Team (Late Contact Info) Description 03/12/2024 External Device Data STL ABSTRACTION Provider, Abstract [...] (Late Contact Info) Description 08/04/2024 1:00 PM EVENT SPECIALIST Appointment [facility] 2nd [place] [address] [place] [address] vAiva Humphries MD [address] [place] [address] Infusion Chair 5, 2nd Floor Hall 08/25/2024 1:00 PM EVENT SPECIALIST Office Visit [facility] Gynecologic Oncology Hall [address] [place] [address] Edilia Pettit, CHELY [address] [facility] [address] [place] [address] 08/25/2024 1:30 PM EVENT SPECIALIST Appointment [facility] 2nd Fl [address] [place] [address] Aviva Humphries MD [address] [place] [address] Infusion Chair 1, 2nd Floor [place] 09/01/2024 10:45 AM EVENT SPECIALIST Appointment Randy [facility] Nuclear Medicine [address] [place] [address] [id number] Edilia Pettit, CHELY [address] [facility] [address] [place] [address] documented as of this encounter Visit Diagnoses Not on filedocumented in this encounter Care Teams Extension Service Advisor Relationship Specialty Start Date End Date Shilo Soares MD [address] [place] [address] PCP - General Internal Medicine 04/24/23 documented as of this encounter
--- OUTSIDE RECORDS SUMMARY | 2024-07-26 23:47 | XMS_ITS | Encounter Summary ---
Author Organization [facility] Address [address] [place] [address] Care Team Providers Care Medical Lab Tech Instructor Name Role Phone Shilo Soares MD Primary Care Provider [phone] Reason for Visit * Reason Comments Follow Up Nurse navigation Encounter Details Date Type Department Care Team ([facility] st Contact Info) Description 03/01/2024 Chart Note [facility] Oncology Patient Navigation [address] [place] [address] Danyell Pablo, RN Follow Up (Nurse navigation [...] Progress Notes * Danyell Pablo, RN - 03/01/2024 1:38 PM CDT Cancer Center Services Note: Email sent with information on exercise programs available for Survivorship. Checked with Robbie but no program in her area. Sent info on [employer], [employer], and [employer]. Danyell Pablo, RN, MSN Oncology Nurse Navigator documented in this encounter Plan of Treatment Upcoming Encounters Date Type Department Care Team (Late st Contact Info) Description 08/04/2024 1:00 PM RADAR REPAIRER Appointment Randy [facility] 2nd Fl [address] [place] [address] Aviva Humphries MD [address] [facility] [address] [place] [address] Infusion Chair 5, 2nd Floor Hall 08/25/2024 1:00 PM RADAR REPAIRER Office Visit [facility] Gynecologic Oncology [place] [address] [facility] [place] [address] [place] [address] Edilia Pettit, CHELY [address] [facility] [place] [address] 08/25/2024 1:30 PM RADAR REPAIRER Appointment [facility] 2nd Fl [address] [place] [address] Aviva Humphries MD [address] [facility] [address] [facility] [place] [address] Infusion Chair 1, 2nd Floor [place] 09/01/2024 10:45 AM RADAR REPAIRER Appointment [facility] Nuclear Medicine [address] [place] [address] [id number] Edilia Pettit, CHELY [address] [facility] [place] [address] [place] [address] documented as of this encounter Visit Diagnoses Not on filedocumented in this encounter Care Teams Medical Lab Tech Instructor Relationship Specialty Start Date End Date Shilo Soares MD [address] [place] [address] PCP - General Internal Medicine 04/24/23 documented as of this encounter
--- OUTSIDE RECORDS SUMMARY | 2024-07-26 23:47 | XMS_ITS | Encounter Summary ---
Author Organization [facility] Address [address] [place] [address] Care Team Providers Care Lpn Per Diem Name Role Phone Shilo Soares MD Primary Care Provider [phone] Encounter Details Date Type Department Care Team [...] (Late Contact Info) Description 08/04/2024 1:00 PM CHILDREN'S LUNCHROOM SUPERVISOR Appointment [facility] 2nd [place] [address] [place] [address] Aviva Humphries MD [address] [place] [address] Infusion Chair 5, 2nd Floor Hall 08/25/2024 1:00 PM CHILDREN'S LUNCHROOM SUPERVISOR Office Visit [facility] Gynecologic Oncology Hall [address] [place] [address] Edilia Pettit, CHELY [address] [facility] [address] [place] [address] 08/25/2024 1:30 PM CHILDREN'S LUNCHROOM SUPERVISOR Appointment [facility] 2nd Fl [address] [place] [address] Aviva Humphries MD [address] [facility] [address] [place] [address] Infusion Chair 1, 2nd Floor [place] 09/01/2024 10:45 AM CHILDREN'S LUNCHROOM SUPERVISOR Appointment Randy [facility] Nuclear Medicine [address] [place] [address] [id number] Edilia Pettit, CHELY [address] [facility] [address] [place] [address] documented as of this encounter Visit Diagnoses Not on filedocumented in this encounter Care Teams Lpn Per Diem Relationship Specialty Start Date End Date Shilo Soares MD [address] [place] [address] PCP - General Internal Medicine 04/24/23 documented as of this encounter
--- OUTSIDE RECORDS SUMMARY | 2024-07-26 23:47 | XMS_ITS | Encounter Summary ---
Author Organization [facility] Address [address] [place] [address] Care Team Providers Care Convention Worker Name Role Phone Shilo Soares MD Primary Care Provider [phone] Encounter Details Date Type Department Care Team [...] (Late Contact Info) Description 08/04/2024 1:00 PM DIGITAL TECHNICIAN Appointment [facility] [address] [place] [address] Aviva Humphries MD [address] [place] [address] Infusion Chair 5, 2nd Floor Hall 08/25/2024 1:00 PM DIGITAL TECHNICIAN Office Visit [facility] Gynecologic Oncology Hall [address] [place] [address] Edilia Pettit, CHELY [address] [place] [address] 08/25/2024 1:30 PM DIGITAL TECHNICIAN Appointment [facility] 2nd Fl [address] [place] [address] Aviva Humphries MD [address] [place] [address] Infusion Chair 1, 2nd Floor [place] 09/01/2024 10:45 AM DIGITAL TECHNICIAN Appointment [facility] Nuclear Medicine [address] [place] [address] [id number] Edilia Pettit, CHELY [address] [facility] [address] [place] [address] documented as of this encounter Visit Diagnoses Not on filedocumented in this encounter Care Teams Convention Worker Relationship Specialty Start Date End Date Shilo Soares MD [address] [place] [address] PCP - General Internal Medicine 04/24/23 documented as of this encounter
--- OUTSIDE RECORDS SUMMARY | 2024-07-26 23:47 | XMS_ITS | Encounter Summary ---
Author Organization [facility] Address [address] [place] [address] Care Team Providers Care Storyboard Artist Name Role Phone Shilo Soares MD Primary Care Provider [phone] Encounter Details Date Type Department Care Team (Late Contact Info) Description 03/08/2024 External Device Data STL ABSTRACTION Provider, Abstract [...] (Late Contact Info) Description 08/04/2024 1:00 PM WHISKEY PROOF READER Appointment [facility] [address] [place] [address] Aviva Humphries MD [address] [place] [address] Infusion Chair 5, 2nd Floor Hall 08/25/2024 1:00 PM WHISKEY PROOF READER Office Visit [facility] Gynecologic Oncology Hall [address] [place] [address] Edilia Pettit, CHELY [address] [place] [address] 08/25/2024 1:30 PM WHISKEY PROOF READER Appointment [facility] 2nd Fl [address] [place] [address] Aviva Humphries MD [address] [place] [address] Infusion Chair 1, 2nd Floor [place] 09/01/2024 10:45 AM WHISKEY PROOF READER Appointment [facility] Nuclear Medicine [address] [place] [address] [id number] Edilia Pettit, CHELY [address] [facility] [address] [place] [address] documented as of this encounter Visit Diagnoses Not on filedocumented in this encounter Care Teams Storyboard Artist Relationship Specialty Start Date End Date Shilo Soares MD [address] [place] [address] PCP - General Internal Medicine 04/24/23 documented as of this encounter
--- OUTSIDE RECORDS SUMMARY | 2024-07-26 23:47 | XMS_ITS | Encounter Summary ---
Author Organization [facility] Address [address] [place] [address] Care Team Providers Care Staffing Executive Name Role Phone Shilo Soares MD Primary Care Provider [phone] Encounter Details Date Type Department Care Team [...] (Late Contact Info) Description 08/04/2024 1:00 PM STONEWORKING BELT SANDER Appointment [facility] In [address] [place] [address] Aviva Humphries MD [address] [place] [address] Infusion Chair 5, 2nd Floor Hall 08/25/2024 1:00 PM STONEWORKING BELT SANDER Office Visit [facility] Gynecologic Oncology Hall [address] [place] [address] Edilia Pettit, CHELY [address] [place] [address] 08/25/2024 1:30 PM STONEWORKING BELT SANDER Appointment [facility] 2nd Fl [address] [place] [address] Aviva Humphries MD [address] [place] [address] Infusion Chair 1, 2nd Floor [place] 09/01/2024 10:45 AM STONEWORKING BELT SANDER Appointment [facility] Nuclear Medicine [address] [place] [address] [id number] Edilia Pettit, CHELY [address] [facility] [address] [place] [address] documented as of this encounter Visit Diagnoses Not on filedocumented in this encounter Care Teams Staffing Executive Relationship Specialty Start Date End Date Shilo Soares MD [address] [place] [address] PCP - General Internal Medicine 04/24/23 documented as of this encounter
--- OUTSIDE RECORDS SUMMARY | 2024-07-26 23:47 | XMS_ITS | Encounter Summary ---
Author Organization [facility] Address [address] [place] [address] Care Team Providers Care Emergency Vehicle Dispatcher Name Role Phone Shilo Soares MD Primary Care Provider [phone] Encounter Details Date Type Department Care Team (Late Contact Info) Description 03/04/2024 External Device Data STL ABSTRACTION Provider, Abstract [...] (Late Contact Info) Description 08/04/2024 1:00 PM MARKETING SUPPORT ASSISTANT Appointment [facility] Ri [address] [place] [address] Aviva Humphries MD [address] [place] [address] Infusion Chair 5, 2nd Floor Hall 08/25/2024 1:00 PM MARKETING SUPPORT ASSISTANT Office Visit [facility] Gynecologic Oncology Hall [address] [place] [address] Edilia Pettit, CHELY [address] [place] [address] 08/25/2024 1:30 PM MARKETING SUPPORT ASSISTANT Appointment [facility] 2nd Fl [address] [place] [address] Aviva Humphries MD [address] [place] [address] Infusion Chair 1, 2nd Floor [place] 09/01/2024 10:45 AM MARKETING SUPPORT ASSISTANT Appointment [facility] Nuclear Medicine [address] [place] [address] [id number] Edilia Pettit, CHELY [address] [facility] [address] [place] [address] documented as of this encounter Visit Diagnoses Not on filedocumented in this encounter Care Teams Emergency Vehicle Dispatcher Relationship Specialty Start Date End Date Shilo Soares MD [address] [place] [address] PCP - General Internal Medicine 04/24/23 documented as of this encounter
--- OUTSIDE RECORDS SUMMARY | 2024-07-26 23:47 | XMS_ITS | Encounter Summary ---
Author Organization [facility] Address [address] [place] [address] Care Team Providers Care Provider Relations Specialist Name Role Phone Shilo Soares MD Primary Care Provider [phone] Encounter Details Date Type Department Care Team [...] (Late Contact Info) Description 08/04/2024 1:00 PM DIANETICIST Appointment [facility] [place] [address] [place] [address] Aviva Humphries MD [address] [place] [address] Infusion Chair 5, 2nd Floor Hall 08/25/2024 1:00 PM DIANETICIST Office Visit [facility] Gynecologic Oncology Hall [address] [place] [address] Edilia Pettit, CHELY [address] [place] [address] 08/25/2024 1:30 PM DIANETICIST Appointment [facility] 2nd Fl [address] [place] [address] Aviva Humphries MD [address] [place] [address] Infusion Chair 1, 2nd Floor [place] 09/01/2024 10:45 AM DIANETICIST Appointment [facility] Nuclear Medicine [address] [place] [address] [id number] Edilia Pettit, CHELY [address] [facility] [address] [place] [address] documented as of this encounter Visit Diagnoses Not on filedocumented in this encounter Care Teams Provider Relations Specialist Relationship Specialty Start Date End Date Shilo Soares MD [address] [place] [address] PCP - General Internal Medicine 04/24/23 documented as of this encounter
--- OUTSIDE RECORDS SUMMARY | 2024-07-26 23:47 | XMS_ITS | Encounter Summary ---
Author Organization [facility] Address [address] [place] [address] Care Team Providers Care Manager Regional Sales Name Role Phone Shilo Soares MD Primary Care Provider [phone] Encounter Details Date Type Department Care Team [...] (Late Contact Info) Description 08/04/2024 1:00 PM CHAIR PAD MAKER Appointment [facility] [place] [address] [place] [address] Aviva Humphries MD [address] [place] [address] Infusion Chair 5, 2nd Floor Hall 08/25/2024 1:00 PM CHAIR PAD MAKER Office Visit [facility] Gynecologic Oncology Hall [address] [place] [address] Edilia Pettit, CHELY [address] [place] [address] 08/25/2024 1:30 PM CHAIR PAD MAKER Appointment [facility] 2nd Fl [address] [place] [address] Aviva Humphries MD [address] [place] [address] Infusion Chair 1, 2nd Floor [place] 09/01/2024 10:45 AM CHAIR PAD MAKER Appointment [facility] Nuclear Medicine [address] [place] [address] [id number] Edilia Pettit, CHELY [address] [facility] [address] [place] [address] documented as of this encounter Visit Diagnoses Not on filedocumented in this encounter Care Teams Manager Regional Sales Relationship Specialty Start Date End Date Shilo Soares MD [address] [place] [address] PCP - General Internal Medicine 04/24/23 documented as of this encounter
--- OUTSIDE RECORDS SUMMARY | 2024-07-26 23:47 | XMS_ITS | Encounter Summary ---
Author Organization [facility] Address [address] [place] [address] Care Team Providers Care Pit Recorder Name Role Phone Shilo Soares MD Primary Care Provider [phone] Encounter Details Date Type Department Care Team [...] (Late Contact Info) Description 08/04/2024 1:00 PM ADMINISTRATION CLERK Appointment [facility] 2[facility] [place] [address] [place] [address] Aviva Humphries MD [address] [place] [address] Infusion Chair 5, 2nd Floor [place] 08/25/2024 1:00 PM ADMINISTRATION CLERK Office Visit [facility] Gynecologic Oncology Hall [address] [place] [address] Edilia Pettit, CHELY [address] [place] [address] 08/25/2024 1:30 PM ADMINISTRATION CLERK Appointment [facility] 2nd Fl [address] [place] [address] Aviva Humphries MD [address] [place] [address] Infusion Chair 1, 2nd Floor [place] 09/01/2024 10:45 AM ADMINISTRATION CLERK Appointment [facility] Nuclear Medicine [address] [place] [address] [id number] Edilia Pettit, CHELY [address] [facility] [facility] [address] [place] [address] documented as of this encounter Visit Diagnoses Not on filedocumented in this encounter Care Teams Pit Recorder Relationship Specialty Start Date End Date Shilo Soares MD [address] [place] [address] PCP - General Internal Medicine 04/24/23 documented as of this encounter
--- OUTSIDE RECORDS SUMMARY | 2024-07-26 23:47 | XMS_ITS | Encounter Summary ---
Author Organization [facility] Address [address] [place] [address] Care Team Providers Care Elevator Erector Helper Name Role Phone Shilo Soares MD Primary Care Provider [phone] Encounter Details Date Type Department Care Team [...] (Late Contact Info) Description 08/04/2024 1:00 PM OVER THE HORIZON TARGETING SUPERVISOR Appointment [facility] 2[facility] [place] [address] [place] [address] Aviva Humphries MD [address] [place] [address] Infusion Chair 5, 2nd Floor Hall 08/25/2024 1:00 PM OVER THE HORIZON TARGETING SUPERVISOR Office Visit [facility] Gynecologic Oncology Hall [address] [place] [address] Edilia Pettit, CHELY [address] [place] [address] 08/25/2024 1:30 PM OVER THE HORIZON TARGETING SUPERVISOR Appointment [facility] 2nd Fl [address] [place] [address] Aviva Humphries MD [address] [place] [address] Infusion Chair 1, 2nd Floor [place] 09/01/2024 10:45 AM OVER THE HORIZON TARGETING SUPERVISOR Appointment [facility] Nuclear Medicine [address] [place] [address] [id number] Edilia Pettit, CHELY [address] [facility] [address] [place] [address] documented as of this encounter Visit Diagnoses Not on filedocumented in this encounter Care Teams Elevator Erector Helper Relationship Specialty Start Date End Date Shilo Soares MD [address] [place] [address] PCP - General Internal Medicine 04/24/23 documented as of this encounter
--- OUTSIDE RECORDS SUMMARY | 2024-07-26 23:47 | XMS_ITS | Encounter Summary ---
Author Organization [facility] Address [address] [place] [address] Care Team Providers Care Escort Vehicle Driver Name Role Phone Shilo Soares MD Primary Care Provider [phone] Encounter Details Date Type Department Care Team [...] (Late Contact Info) Description 08/04/2024 1:00 PM WRAPPER AND PRESERVER Appointment [facility] [place] [address] [place] [address] Aviva Humphries MD [address] [place] [address] Infusion Chair 5, 2nd Floor Hall 08/25/2024 1:00 PM WRAPPER AND PRESERVER Office Visit [facility] Gynecologic Oncology Hall [address] [place] [address] Edilia Pettit, CHELY [address] [place] [address] 08/25/2024 1:30 PM WRAPPER AND PRESERVER Appointment [facility] 2nd Fl [address] [place] [address] Aviva Humphries MD [address] [place] [address] Infusion Chair 1, 2nd Floor [place] 09/01/2024 10:45 AM WRAPPER AND PRESERVER Appointment [facility] Nuclear Medicine [address] [place] [address] [id number] Edilia Pettit, CHELY [address] [facility] [address] [place] [address] documented as of this encounter Visit Diagnoses Not on filedocumented in this encounter Care Teams Escort Vehicle Driver Relationship Specialty Start Date End Date Shilo Soares MD [address] [place] [address] PCP - General Internal Medicine 04/24/23 documented as of this encounter
--- OUTSIDE RECORDS SUMMARY | 2024-07-26 23:47 | XMS_ITS | Encounter Summary ---
Author Organization [facility] Address [address] [place] [address] Care Team Providers Care Electric Lift Truck Driver Name Role Phone Shilo Soares MD Primary Care Provider [phone] Encounter Details Date Type Department Care Team (Late Contact Info) Description 02/26/2024 External Device Data STL ABSTRACTION Provider, Abstract [...] (Late Contact Info) Description 08/04/2024 1:00 PM CORRECTIONAL FOOD SERVICE SUPERVISOR Appointment [facility] [place] [address] [place] [address] Aviva Humphries MD [address] [place] [address] Infusion Chair 5, 2nd Floor [place] 08/25/2024 1:00 PM CORRECTIONAL FOOD SERVICE SUPERVISOR Office Visit [facility] Gynecologic Oncology Hall [address] [place] [address] Edilia Pettit, CHELY [address] [place] [address] 08/25/2024 1:30 PM CORRECTIONAL FOOD SERVICE SUPERVISOR Appointment [facility] 2nd Fl [address] [place] [address] Aviva Humphries MD [address] [place] [address] Infusion Chair 1, 2nd Floor [facility] 09/01/2024 10:45 AM CORRECTIONAL FOOD SERVICE SUPERVISOR Appointment [facility] Nuclear Medicine [address] [place] [address] [id number] Edilia Pettit, CHELY [address] [facility] [address] [place] [address] documented as of this encounter Visit Diagnoses Not on filedocumented in this encounter Care Teams Electric Lift Truck Driver Relationship Specialty Start Date End Date Shilo Soares MD [address] [place] [address] PCP - General Internal Medicine 04/24/23 documented as of this encounter
--- OUTSIDE RECORDS SUMMARY | 2024-07-26 23:47 | XMS_ITS | Encounter Summary ---
Author Organization [facility] Address [address] [place] [address] Care Team Providers Care Bicycle Subassembler Name Role Phone Shilo Soares MD Primary Care Provider [phone] Reason for Visit * Reason Comments Chemotherapy prechemo Encounter Details Date Type Department Care Team (Latest Contact Info) Description 03/09/2024 11:30 AM CDT Office Visit [facility] Gynecologic On[facility] Hall [address] [place] [address] Aviva Humphries MD [address] [place] [address] Malignant neoplasm of ovary, unspecified laterality (Primary Dx); Maintenance chemotherapy Social History Tobacco Use Types Packs/Day [...] Sign Reading Time Taken Comments Blood Pressure 124/78 03/09/2024 11:20 AM CDT Pulse 94 03/09/2024 11:20 AM CDT Temperature 36.7 ??C (98 ??F) 03/09/2024 11:20 AM CDT Respiratory Rate - - Oxygen Saturation 98% 03/09/2024 11:20 AM CDT Inhaled Oxygen Concentration - - Weight 49.6 kg (109 lb 6.4 oz) 03/09/2024 11:20 AM CDT Height 167.6 cm (5' 6 ) 03/09/2024 11:20 AM CDT Body Mass Index 17.66 03/09/2024 11:20 AM CDT documented in this encounter Progress Notes * Aviva Humphries MD - 03/09/2024 11:31 AM CDT Images from the original note were not included. [facility] GYNECOLOGIC ONCOLOGY OFFICE VISIT 03/09/2024November Eileen Mayen REFERRING PROVIDER: Dr. Barnard ref. provider found PRIMARY CARE PROVIDER: Shilo Harley MD RETURN PATIENT VISIT Cancer Staging Ovarian cancer Staging form: Ovary, Fallopian Tube, and Primary Peritoneal Carcinoma, AJCC 8th Edition - Clinical stage from 05/13/2023: FIGO Stage IVB - Signed by Aviva Humphries MD on 05/13/2023 Oncology History: 03/2023 presented to [place] ED with abdominal distension; CT showed 11.6cm [...] treated with Valtrex 08/06/23 to OR with me for TLH-BSO mini-lap for repair of bladder injury, complete omentectomy, diaphragm biopsy, and inguinal lymph node removal; complete gross resection; final pathology with clearcell carcinoma 09/03/23 resumption of post op chemotherapy; [...] Narda via telephone on 09/02/2023. Last exam: 11/16/23 Code Status/AD: not addressed Chief complaint: I [...] ordered additional work up and referred to career and guidance counselor oncology. CT chest did not show metastatic disease. CA-125 was performed at elevated at 751. 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 She was started on NACT with carbo/taxol/sima as noted above. She underwent surgical debulking with me as noted above. She has completed post-operative chemotherapy. She is currently receiving maintenance therapy in the form of bevacizumab 15mg/m2 q21 days + olaparib 300mg BID. Cycle #13 today She continues to experience fatigue from olaparib but reports that it is manageable. Narda denies recent changes to urinary or bowel habits. Denies newly diminished appetite, nausea, vomiting, new onset pain, abdominal bloating, or vaginal bleeding. Lab Results Component Value Date/Time CA125 5 02/17/2024 01:26 PM CA125 7 [...] to show a complete pinpoint, stellate lumen. Riddler Operator sections are submitted in cassettes labeled A1-anterior cervix; A2-anterior polyp, submitted entirely; A3-anterior endomyometrium; A4-posterior cervix; A5-posterior endomyometrium; A6-left ovary; A7-left fallopian tube, fimbria submitted entirely; A8-presumed right fallopian tube, fimbria submitted entirely; A9 through X29-ptzwho mass (2 sections in each cassette) with mucinous component in 9-10. Received in the second container additionally labeled omentum are 2 irregular fragments of calhoun-yellow to red-brown lobulated omentum measuring 35.8 x 6 x 2 cm in aggregate. Sections show a calhoun-yellow, fatty cut surface containing multiple pink-cancino firm nodules measuring up to 1.8 cm in greatest dimension. Riddler Operator sections are submitted in cassettes labeled B1 [...] SMB MICROSCOPIC DESCRIPTION The slides are labeled [id number] and November. Sections of the salpingo-oophorectomy (A) [...] heterogeneity, focal positivity for ER, and rare FL positivity. Negative staining is observed for WT1 and CK20. Although weak patchy positivity for AMACR and Napsin A,and focal positivity for ER and rare FL positivity are unusual for clear cell carcinoma, [...] Component FINAL DIAGNOSIS [place] [address] (OSC [id number]; 04/29/2023 and [id number]; 05/06/2023) [id number] Ascites fluid, cytologic examination: - CK7 positive adenocarcinoma. [id number] Lymph node, right inguinal, biopsy: - Metastatic carcinoma most compatible with high-grade serous carcinoma. See comment. at 1237 MICROSCOPIC DESCRIPTION Received are slides labeled [id number] and [id number] and Narda Joel Mayen. Microscopic examination of the ascites fluid [...] origin. Sections of the lymph node biopsy ([id number]) show cores of lymph node involved by [...] CYSTOURETHROSCOPY performed by Aviva Humphries MD at [facility] OR [facility] HX BLADDER REPAIR N/A 08/06/2023 BLADDER REPAIR performed by Aviva Humphries MD at [facility] OR [facility] HX BUNIONECTOMY Bilateral 2009 HX SECTION 1982,1985,1994 HX PORTACATH PLACEMENT Right 2022 HX URETEROLYSIS Bilateral 08/06/2023 URETEROLYSIS performed by Aviva Humphries MD at [facility] OR [facility] FL BX/EXC LYMPH NODE OPEN SUPERFICIAL Right 08/06/2023 INGUINAL OR FEMORAL LYMPH NODE BIOPSY/EXCISION performed by Aviva Humphries MD at [facility] OR [facility] FL LAPAROSCOPY W/RMVL ADNEXAL STRUCTURES N/A 08/06/2023 SALPINGO-OOPHORECTOMY LAPAROSCOPIC performed by Aviva Humphries MD at [facility] OR [facility] FL OMNTC EPIPLOECTOMY RESCJ OMENTUM SPX N/A 08/06/2023 OMENTECTOMY performed by Aviva Humphries MD at [facility] OR [facility] FL TOTAL ABDOMINAL HYSTERECT W/WO RMVL TUBE OVARY N/A 08/06/2023 HYSTERECTOMY ABDOMINAL TOTAL performed by Aviva Humphries MD at [facility] OR [facility] FL UNLISTED PROCEDURE DIAPHRAGM N/A 08/06/2023 DIAPHRAGM BIOPSY performed by Aviva Humphries MD at [facility] OR [facility] Allergies Allergen Reactions Penicillins Rash Ciprofloxacin Rash [...] , Rfl: fluticasone propionate (FLONASE) 50 mcg/spray [place], Suspension nasal inhaler, Administer 2 Sprays in each nostril daily., Disp: , Rfl: omega-3 fatty acids-fish oil 300-1,000 mg Capsule, Take 2 Capsules by mouth daily., Disp: , Rfl: No current facility-administered medications for this visit. Facility-Administered Medications Ordered in Other Visits: sodium chloride flush injection 20 mL, 20 mL, IV, see admin instructions, Aviva Humphries MD, 20 mL at 03/09/24 1010 heparin, porcine (pf) 10 unit/mL IV syringe 50 Units, 50 Units, IV, see admin instructions, Aviva Humphries MD, 50 Units at 03/09/24 1010 FAMILY HISTORY: Cancer-related family history includes Lung Cancer (age of onset: 60 - 69) in her father. No uterine, cervix, ovarian, breast or colon cancer OBHx: OB History No obstetric history on file. 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 Down to half pack per day. 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 BP 124/78 (BP Location: Left arm, Patient Position (BP): Sitting, BP Cuff Size: Small Adult) Pulse 94 Temp 98 ??F (36.7 ??C) (Oral) Ht 5' 6 (1.676 m) Wt 49.6 kg (109 lb 6.4 oz) LMP (LMP Unknown) SpO2 98% BMI 17.66 kg/m?? ECOG PS: 0 HEAD: Normocephalic, atraumatic. EYES: Conjunctivae and lids were normal. RESPIRATORY: Normal respiratory effort. CARDIOVASCULAR: No lower extremity varicosities were noted. No peripheral edema noted. ABDOMEN: Soft, non-tender, no masses, no evidence of hernias. Surgical incisions well approximated,skin glue still present LYMPHATICS: R inguinal incision well approximated; scar tissue appreciated. No cervical lymphadenopathy palpated. MUSCULOSKELETAL: The upper and lower extremities had full range of movement and had equal muscle strength. SKIN: No rashes, lesions, or subcutaneous nodules noted. NEUROLOGIC: Cranial nerves were grossly intact. MENTAL STATUS: Affect was appropriate. PELVIC EXAM: VULVA: normal external genitalia, no vulvar lesions, RV septum clear, normal anal opening VAGINA: normal vaginal mucosa, no lesions CERVIX: absent UTERUS: absent ADNEXA: no palpable masses, no tenderness PRESCRIPTIONS WRITTEN THIS VISIT: Requested Prescriptions No prescriptions requested or ordered in this encounter ASSESSMENT and PLAN: 1. Malignant neoplasm of ovary, unspecified laterality 2. 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 She has completed 3 cycles of NACT with carbo/taxol/sima (held with cycle 3). She has undergone interval cytoreductive surgery to no gross residual disease. She completed 3 additional cycles of chemotherapy post surgery which was completed 10/15/23. Completion of primary treatment: 10/15/23 Maintenance therapy initiated: 11/05/23 bevacizumab, 11/19/23 olaparib -Continue maintenance bevacizumab 15mg/m2 q21 days + olaparib 300mg BID. Offered dose reduction of olaparib d/t fatigue and nausea. Pt would like to continue 300mg BID, will let us know if she would like to change dose -Labs and toxicity profile reviewed and acceptable for continued treatment with olaparib and bevacizumab -Repeat CTCAP ordered to be completed in 05/2024 Return to clinic: f/u 6 weeks with Edilia Pettit NP Thank you for involving [facility] Gynecologic Oncology in the care of this patient. Aviva Humphries MD documented in this encounter Plan of Treatment Upcoming Encounters Date Type Department Care Team (Late st Contact Info) Description 08/04/2024 1:00 PM SITE SUPERVISING TECHNICAL OPERATOR Appointment [facility] 2nd Fl [address] [place] [address] Aviva Humphries MD [address] [facility] [address] [facility] [place] [address] Infusion Chair 5, 2nd Floor Hall 08/25/2024 1:00 PM SITE SUPERVISING TECHNICAL OPERATOR Office Visit [facility] Gynecologic Oncology Hall [address] [place] [address] Edilia Pettit NP [address] [place] [address] 08/25/2024 1:30 PM SITE SUPERVISING TECHNICAL OPERATOR Appointment [facility] 2nd Fl [address] [place] [address] Aviva Humphries MD [address] [place] [address] Infusion Chair 1, 2nd Floor [place] 09/01/2024 10:45 AM SITE SUPERVISING TECHNICAL OPERATOR Appointment [facility] [address] [place] [address] [id number] Edilia Pettit, CHELY [address] [facility] [address] [place] [address] documented as of this encounter Visit Diagnoses Diagnosis Malignant neoplasm of ovary, unspecified laterality- Primary Maintenance chemotherapy Encounter for antineoplastic chemotherapy documented in this encounter Care Teams Bicycle Subassembler Relationship Specialty Start Date End Date Shilo Soares MD [address] [place] [address] PCP - General Internal Medicine 04/24/23 documented as of this encounter
--- OUTSIDE RECORDS SUMMARY | 2024-07-26 23:47 | XMS_ITS | Encounter Summary ---
Author Organization [facility] Address [address] [place] [address] Care Team Providers Care Saw Straightener Name Role Phone Shilo Soares MD Primary Care Provider [phone] Encounter Details Date Type Department Care Team [...] (Late Contact Info) Description 08/04/2024 1:00 PM STITCHING MACHINE SETTER Appointment [facility] [address] [place] [address] Aviva Humphries MD [address] [place] [address] Infusion Chair 5, 2nd Floor Hall 08/25/2024 1:00 PM STITCHING MACHINE SETTER Office Visit [facility] Gynecologic Oncology Hall [address] [place] [address] Edilia Pettit, CHELY [address] [place] [address] 08/25/2024 1:30 PM STITCHING MACHINE SETTER Appointment [facility] 2nd Fl [address] [place] [address] Aviva Humphries MD [address] [place] [address] Infusion Chair 1, 2nd Floor [place] 09/01/2024 10:45 AM STITCHING MACHINE SETTER Appointment [facility] Nuclear Medicine [address] [place] [address] [id number] Edilia Pettit, CHELY [address] [facility] [address] [place] [address] documented as of this encounter Visit Diagnoses Not on filedocumented in this encounter Care Teams Saw Straightener Relationship Specialty Start Date End Date Shilo Soares MD [address] [place] [address] PCP - General Internal Medicine 04/24/23 documented as of this encounter
--- OUTSIDE RECORDS SUMMARY | 2024-07-26 23:47 | XMS_ITS | Encounter Summary ---
Author Organization [facility] Address [address] [place] [address] Care Team Providers Care Pin Inserter Regulator Name Role Phone Shilo Soares MD Primary Care Provider [phone] Encounter Details Date Type Department Care Team (Late Contact Info) Description 03/05/2024 External Device Data STL ABSTRACTION Provider, Abstract [...] Contact Info) Description 08/04/2024 1:00 PM ELECTRONIC EQUIPMENT REPAIRMEN Appointment [facility] 2[facility] Ia [address] [place] [address] Aviva Humphries MD [address] [place] [address] Infusion Chair 5, 2nd Floor Hall 08/25/2024 1:00 PM ELECTRONIC EQUIPMENT REPAIRMEN Office Visit [facility] Gynecologic Oncology Hall [address] [place] [address] Edilia Pettit, CHELY [address] [facility] [address] [place] [address] 08/25/2024 1:30 PM ELECTRONIC EQUIPMENT REPAIRMEN Appointment [facility] 2nd Fl [address] [place] [address] Aviva Humphries MD [address] [facility] [address] [place] [address] Infusion Chair 1, 2nd Floor [place] 09/01/2024 10:45 AM ELECTRONIC EQUIPMENT REPAIRMEN Appointment [facility] Nuclear Medicine [address] [place] [address] [id number] Edilia Pettit, CHELY [address] [facility] [address] [place] [address] documented as of this encounter Visit Diagnoses Not on filedocumented in this encounter Care Teams Pin Inserter Regulator Relationship Specialty Start Date End Date Shilo Soares MD [address] [place] [address] PCP - General Internal Medicine 04/24/23 documented as of this encounter
--- OUTSIDE RECORDS SUMMARY | 2024-07-26 23:47 | XMS_ITS | Encounter Summary ---
Author Organization [facility] Address [address] [place] [address] Care Team Providers Care Head Refrigeration Engineer Name Role Phone Shilo Soares MD Primary Care Provider [phone] Encounter Details Date Type Department Care Team [...] (Late Contact Info) Description 08/04/2024 1:00 PM VENEER TAPING MACHINE OFFBEARER Appointment [facility] 2nd Al [address] [place] [address] Aviva Humphries MD [address] [place] [address] Infusion Chair 5, 2nd Floor Hall 08/25/2024 1:00 PM VENEER TAPING MACHINE OFFBEARER Office Visit [facility] Gynecologic Oncology Hall [address] [place] [address] Edilia Pettit, CHELY [address] [facility] [address] [place] [address] 08/25/2024 1:30 PM VENEER TAPING MACHINE OFFBEARER Appointment [facility] 2nd Fl [address] [place] [address] Aviva Humphries MD [address] [place] [address] Infusion Chair 1, 2nd Floor [place] 09/01/2024 10:45 AM VENEER TAPING MACHINE OFFBEARER Appointment [facility] Nuclear Medicine [address] [place] [address] [id number] Edilia Pettit, CHELY [address] [facility] [address] [place] [address] documented as of this encounter Visit Diagnoses Not on filedocumented in this encounter Care Teams Head Refrigeration Engineer Relationship Specialty Start Date End Date Shilo Soares MD [address] [place] [address] PCP - General Internal Medicine 04/24/23 documented as of this encounter
--- OUTSIDE RECORDS SUMMARY | 2024-07-26 23:47 | XMS_ITS | Encounter Summary ---
Author Organization [facility] Address [address] [place] [address] Care Team Providers Care Forecast Analyst Name Role Phone Shilo Soares MD Primary Care Provider [phone] Encounter Details Date Type Department Care Team [...] (Late Contact Info) Description 08/04/2024 1:00 PM FERRY TERMINAL SUPERVISOR Appointment [facility] 2nd Me [address] [place] [address] Aviva Humphries MD [address] [place] [address] Infusion Chair 5, 2nd Floor Hall 08/25/2024 1:00 PM FERRY TERMINAL SUPERVISOR Office Visit [facility] Gynecologic Oncology Hall [address] [place] [address] Edilia Pettit, CHELY [address] [facility] [address] [address] [place] [address] 08/25/2024 1:30 PM FERRY TERMINAL SUPERVISOR Appointment [facility] 2nd Fl [address] [place] [address] Aviva Humphries MD [address] [place] [address] Infusion Chair 1, 2nd Floor [place] 09/01/2024 10:45 AM FERRY TERMINAL SUPERVISOR Appointment [facility] Nuclear Medicine [address] [place] [address] [id number] Edilia Pettit, CHELY [address] [facility] [address] [place] [address] documented as of this encounter Visit Diagnoses Not on filedocumented in this encounter Care Teams Forecast Analyst Relationship Specialty Start Date End Date Shilo Soares MD [address] [place] [address] PCP - General Internal Medicine 04/24/23 documented as of this encounter
--- OUTSIDE RECORDS SUMMARY | 2024-07-26 23:47 | XMS_ITS | Encounter Summary ---
Author Organization [facility] Address [address] [place] [address] Care Team Providers Care Saw Straightener Name Role Phone Shilo Soares MD Primary Care Provider [phone] Encounter Details Date Type Department Care Team (Late Contact Info) Description 03/01/2024 External Device Data STL ABSTRACTION Provider, Abstract [...] (Late Contact Info) Description 08/04/2024 1:00 PM URGENT CARE PHYSICIAN Appointment [facility] 2nd Nv [address] [place] [address] Aviva Humphries MD [address] [place] [address] Infusion Chair 5, 2nd Floor Hall 08/25/2024 1:00 PM URGENT CARE PHYSICIAN Office Visit [facility] Gynecologic Oncology Hall [address] [place] [address] Edilia Pettit, CHELY [address] [facility] [address] [place] [address] 08/25/2024 1:30 PM URGENT CARE PHYSICIAN Appointment [facility] 2nd Fl [address] [place] [address] Aviva Humphries MD [address] [facility] [address] [place] [address] Infusion Chair 1, 2nd Floor [place] 09/01/2024 10:45 AM URGENT CARE PHYSICIAN Appointment [facility] Nuclear Medicine [address] [place] [address] [id number] Edilia Pettit, CHELY [address] [facility] [address] [place] [address] documented as of this encounter Visit Diagnoses Not on filedocumented in this encounter Care Teams Saw Straightener Relationship Specialty Start Date End Date Shilo Soares MD [address] [place] [address] PCP - General Internal Medicine 04/24/23 documented as of this encounter
--- OUTSIDE RECORDS SUMMARY | 2024-07-26 23:47 | XMS_ITS | Encounter Summary ---
Author Organization [facility] Address [address] [place] [address] Care Team Providers Care Estate Planning Director Name Role Phone Shilo Soares MD Primary Care Provider [phone] Encounter Details Date Type Department Care Team [...] (Late Contact Info) Description 08/04/2024 1:00 PM INSULATION AND FLOORING ASSEMBLER Appointment [facility] 2nd Me [address] [place] [address] Aviva Humphries MD [address] [place] [address] Infusion Chair 5, 2nd Floor Hall 08/25/2024 1:00 PM INSULATION AND FLOORING ASSEMBLER Office Visit [facility] Gynecologic Oncology Hall [address] [place] [address] Edilia Pettit, CHELY [address] [address] [place] [address] 08/25/2024 1:30 PM INSULATION AND FLOORING ASSEMBLER Appointment [facility] 2nd Fl [address] [place] [address] Aviva Humphries MD [address] [facility] [address] [facility] [address] [place] [address] Infusion Chair 1, 2nd Floor [place] 09/01/2024 10:45 AM INSULATION AND FLOORING ASSEMBLER Appointment [facility] Nuclear Medicine [address] [place] [address] [id number] Edilia Pettit, CHELY [address] [facility] [address] [place] [address] documented as of this encounter Visit Diagnoses Not on filedocumented in this encounter Care Teams Estate Planning Director Relationship Specialty Start Date End Date Shilo Soares MD [address] [place] [address] PCP - General Internal Medicine 04/24/23 documented as of this encounter
--- OUTSIDE RECORDS SUMMARY | 2024-07-26 23:47 | XMS_ITS | Encounter Summary ---
Author Organization [facility] Address [address] [place] [address] Care Team Providers Care Clerical Order Filler Name Role Phone Shilo Soares MD Primary Care Provider [phone] Encounter Details Date Type Department Care Team (Late Contact Info) Description 02/28/2024 External Device Data STL ABSTRACTION Provider, Abstract [...] Contact Info) Description 08/04/2024 1:00 PM DIRECTOR BLOOD BANK Appointment [facility] [place] [address] [place] [address] Aviva Humphries MD [address] [place] [address] Infusion Chair 5, 2nd Floor [place] 08/25/2024 1:00 PM DIRECTOR BLOOD BANK Office Visit [facility] Gynecologic Oncology Hall [address] [place] [address] Edilia Pettit, CHELY [address] [place] [address] 08/25/2024 1:30 PM DIRECTOR BLOOD BANK Appointment [facility] 2nd Fl [address] [place] [address] Aviva Humphries MD [address] [place] [address] Infusion Chair 1, 2nd Floor [place] 09/01/2024 10:45 AM DIRECTOR BLOOD BANK Appointment [facility] Nuclear Medicine [address] [place] [address] [id number] Edilia Pettit, CHELY [address] [facility] [address] [place] [address] documented as of this encounter Visit Diagnoses Not on filedocumented in this encounter Care Teams Clerical Order Filler Relationship Specialty Start Date End Date Shilo Soares MD [address] [place] [address] PCP - General Internal Medicine 04/24/23 documented as of this encounter
--- OUTSIDE RECORDS SUMMARY | 2024-07-26 23:47 | XMS_ITS | Encounter Summary ---
Author Organization [facility] Address [address] [place] [address] Care Team Providers Care Cash Applications Representative Name Role Phone Shilo Soares MD Primary Care Provider [phone] Encounter Details Date Type Department Care Team (Late Contact Info) Description 03/07/2024 External Device Data STL ABSTRACTION Provider, Abstract [...] (Late Contact Info) Description 08/04/2024 1:00 PM RESTORER LACE AND TEXTILES Appointment [facility] [place] [address] [place] [address] Aviva Humphries MD [address] [place] [address] Infusion Chair 5, 2nd Floor Hall 08/25/2024 1:00 PM RESTORER LACE AND TEXTILES Office Visit [facility] Gynecologic Oncology Hall [address] [place] [address] Edilia Pettit, CHELY [address] [place] [address] 08/25/2024 1:30 PM RESTORER LACE AND TEXTILES Appointment [facility] 2nd Fl [address] [place] [address] Aviva Humphries MD [address] [place] [address] Infusion Chair 1, 2nd Floor [place] 09/01/2024 10:45 AM RESTORER LACE AND TEXTILES Appointment [facility] Nuclear Medicine [address] [place] [address] [id number] Edilia Pettit, CHELY [address] [facility] [address] [place] [address] documented as of this encounter Visit Diagnoses Not on filedocumented in this encounter Care Teams Cash Applications Representative Relationship Specialty Start Date End Date Shilo Soares MD [address] [place] [address] PCP - General Internal Medicine 04/24/23 documented as of this encounter
--- OUTSIDE RECORDS SUMMARY | 2024-07-26 23:47 | XMS_ITS | Encounter Summary ---
Author Organization [facility] Address [address] [place] [address] Care Team Providers Care Sales And Business Development Manager Name Role Phone Shilo Soares MD Primary Care Provider [phone] Encounter Details Date Type Department Care Team [...] (Late Contact Info) Description 08/04/2024 1:00 PM FUDGE CANDY MAKER Appointment [facility] 2[facility] [address] [place] [address] Aviva Humphries MD [address] [place] [address] Infusion Chair 5, 2nd Floor Hall 08/25/2024 1:00 PM FUDGE CANDY MAKER Office Visit [facility] Gynecologic Oncology Hall [address] [place] [address] Edilia Pettit, CHELY [address] [place] [address] 08/25/2024 1:30 PM FUDGE CANDY MAKER Appointment [facility] 2nd Fl [address] [place] [address] Aviva Humphries MD [address] [place] [address] Infusion Chair 1, 2nd Floor [place] 09/01/2024 10:45 AM FUDGE CANDY MAKER Appointment [facility] Nuclear Medicine [address] [place] [address] [id number] Edilia Pettit, CHELY [address] [facility] [address] [place] [address] documented as of this encounter Visit Diagnoses Not on filedocumented in this encounter Care Teams Sales And Business Development Manager Relationship Specialty Start Date End Date Shilo Soares MD [address] [place] [address] PCP - General Internal Medicine 04/24/23 documented as of this encounter
--- OUTSIDE RECORDS SUMMARY | 2024-07-26 23:47 | XMS_ITS | Encounter Summary ---
Author Organization [facility] Address [address] [place] [address] Care Team Providers Care Pmo Consultant Name Role Phone Shilo Soares MD Primary Care Provider [phone] Encounter Details Date Type Department Care Team [...] (Late Contact Info) Description 08/04/2024 1:00 PM FRINGE WEAVER Appointment [facility] 2nd [place] [address] [place] [address] Aviva Humphries MD [address] [place] [address] Infusion Chair 5, 2nd Floor Hall 08/25/2024 1:00 PM FRINGE WEAVER Office Visit [facility] Gynecologic Oncology Hall [address] [place] [address] Edilia Pettit, CHELY [address] [place] [address] 08/25/2024 1:30 PM FRINGE WEAVER Appointment [facility] 2nd Fl [address] [place] [address] Aviva Humphries MD [address] [place] [address] Infusion Chair 1, 2nd Floor [place] 09/01/2024 10:45 AM FRINGE WEAVER Appointment [facility] Nuclear Medicine [address] [place] [address] [id number] Edilia Pettit, CHELY [address] [facility] [address] [place] [address] documented as of this encounter Visit Diagnoses Not on filedocumented in this encounter Care Teams Pmo Consultant Relationship Specialty Start Date End Date Shilo Soares MD [address] [place] [address] PCP - General Internal Medicine 04/24/23 documented as of this encounter
--- OUTSIDE RECORDS SUMMARY | 2024-07-26 23:47 | XMS_ITS | Encounter Summary ---
Author Organization [facility] Address [address] [place] [address] Care Team Providers Care Electronic Page Makeup System Operator Name Role Phone Shilo Soares MD Primary Care Provider [phone] Encounter Details Date Type Department Care Team [...] (Late Contact Info) Description 08/04/2024 1:00 PM LOSS PREVENTION OFFICER Appointment [facility] 2[facility] [address] [place] [address] Aviva Humphries MD [address] [place] [address] Infusion Chair 5, 2nd Floor Hall 08/25/2024 1:00 PM LOSS PREVENTION OFFICER Office Visit [facility] Gynecologic Oncology Hall [address] [place] [address] Edilia Pettit, CHELY [address] [place] [address] 08/25/2024 1:30 PM LOSS PREVENTION OFFICER Appointment [facility] 2nd Fl [address] [place] [address] Aviva Humphries MD [address] [place] [address] Infusion Chair 1, 2nd Floor [place] 09/01/2024 10:45 AM LOSS PREVENTION OFFICER Appointment [facility] Nuclear Medicine [address] [place] [address] [id number] Edilia Pettit, CHELY [address] [facility] [address] [place] [address] documented as of this encounter Visit Diagnoses Not on filedocumented in this encounter Care Teams Electronic Page Makeup System Operator Relationship Specialty Start Date End Date Shilo Soares MD [address] [place] [address] PCP - General Internal Medicine 04/24/23 documented as of this encounter
--- OUTSIDE RECORDS SUMMARY | 2024-07-26 23:47 | XMS_ITS | Encounter Summary ---
Author Organization [facility] Address [address] [place] [address] Care Team Providers Care Weaving Supervisor Name Role Phone Shilo Soares MD Primary Care Provider [phone] Encounter Details Date Type Department Care Team [...] Info) Description 08/04/2024 1:00 PM WEB CONTENT WRITER Appointment [facility] 2[facility] [address] [place] [address] Aviva Humphries MD [address] [place] [address] Infusion Chair 5, 2nd Floor Hall 08/25/2024 1:00 PM WEB CONTENT WRITER Office Visit [facility] Gynecologic Oncology Hall [address] [place] [address] Edilia Pettit, CHELY [address] [place] [address] 08/25/2024 1:30 PM WEB CONTENT WRITER Appointment [facility] 2nd Fl [address] [place] [address] Aviva Humphries MD [address] [place] [address] Infusion Chair 1, 2nd Floor [place] 09/01/2024 10:45 AM WEB CONTENT WRITER Appointment [facility] Nuclear Medicine [address] [place] [address] [id number] Edilia Pettit, CHELY [address] [facility] [address] [place] [address] documented as of this encounter Visit Diagnoses Not on filedocumented in this encounter Care Teams Weaving Supervisor Relationship Specialty Start Date End Date Shilo Soares MD [address] [place] [address] PCP - General Internal Medicine 04/24/23 documented as of this encounter
--- OUTSIDE RECORDS SUMMARY | 2024-07-26 23:47 | XMS_ITS | Encounter Summary ---
Author Organization [facility] Address [address] [place] [address] Care Team Providers Care Windrower Operator Name Role Phone Shilo Soares MD Primary Care Provider [phone] Encounter Details Date Type Department Care Team [...] Contact Info) Description 08/04/2024 1:00 PM MARKETING SALES CONSULTANT Appointment [facility] 2nd [place] [address] [place] [address] Aviva Humphries MD [address] [place] [address] Infusion Chair 5, 2nd Floor Hall 08/25/2024 1:00 PM MARKETING SALES CONSULTANT Office Visit [facility] Gynecologic Oncology Hall [address] [place] [address] Edilia Pettit, CHELY [address] [place] [address] 08/25/2024 1:30 PM MARKETING SALES CONSULTANT Appointment [facility] 2nd Fl [address] [place] [address] Aviva Humphries MD [address] [place] [address] Infusion Chair 1, 2nd Floor [place] 09/01/2024 10:45 AM MARKETING SALES CONSULTANT Appointment [facility] Nuclear Medicine [address] [place] [address] [id number] Edilia Pettit, CHELY [address] [facility] [address] [place] [address] documented as of this encounter Visit Diagnoses Not on filedocumented in this encounter Care Teams Windrower Operator Relationship Specialty Start Date End Date Shilo Soares MD [address] [place] [address] PCP - General Internal Medicine 04/24/23 documented as of this encounter
--- OUTSIDE RECORDS SUMMARY | 2024-07-26 23:47 | XMS_ITS | Encounter Summary ---
Author Organization [facility] Address [address] [place] [address] Care Team Providers Care Collar Cutter Name Role Phone Shilo Soares MD Primary Care Provider [phone] Encounter Details Date Type Department Care Team [...] (Late Contact Info) Description 08/04/2024 1:00 PM LIQUID YEAST SUPERVISOR Appointment [facility] 2[facility] [place] [address] [place] [address] Aviva Humphries MD [address] [place] [address] Infusion Chair 5, 2nd Floor Hall 08/25/2024 1:00 PM LIQUID YEAST SUPERVISOR Office Visit [facility] Gynecologic Oncology Hall [address] [place] [address] Edilia Pettit, CHEYL [address] [facility] [address] [place] [address] 08/25/2024 1:30 PM LIQUID YEAST SUPERVISOR Appointment [facility] 2nd Fl [address] [place] [address] Aviva Humphries MD [address] [place] [address] Infusion Chair 1, 2nd Floor [place] 09/01/2024 10:45 AM LIQUID YEAST SUPERVISOR Appointment [facility] Nuclear Medicine [address] [place] [address] [id number] Edilia Pettit, CHELY [address] [facility] [address] [place] [address] documented as of this encounter Visit Diagnoses Not on filedocumented in this encounter Care Teams Collar Cutter Relationship Specialty Start Date End Date Shilo Soares MD [address] [place] [address] PCP - General Internal Medicine 04/24/23 documented as of this encounter
--- OUTSIDE RECORDS SUMMARY | 2024-07-26 23:47 | XMS_ITS | Encounter Summary ---
Author Organization [facility] Address [address] [place] [address] Care Team Providers Care Counseling Center Manager Name Role Phone Shilo Soares MD Primary Care Provider [phone] Reason for Visit * Tx/Med Therapy Plan Auth (Routine) - Authorized Specialty Diagnoses / Procedures Referred By Alison gomez Referred To Contact Diagnoses Malignant neoplasm of ovary, unspecified laterality Encounter for antineoplastic chemotherapy Nausea Procedures IN PACLITAXEL INJECTION IN CARBOPLATIN INJECTION IN INJ MVASI 10 MG IN FOSAPREPITANT INJECTION IN PALONOSETRON HCL IN DEXAMETHASONE SODIUM PHOS IN METHYLPREDNISOLONE INJECTION IN DIPHENHYDRAMINE HCL INJECTIO IN INJECTION, FAMOTIDINE, 20 MG TAXOL, CARBO, MVASI, EMEND, ALOXI, DECADRON, SOLU MEDROL, BENADRYL, PEPCID Aviva Humphries MD [address] [facility] [address] [place] [address] [facility] 2nd Floor [place] [address] [place] [address] Referral ID Status Reason Start Date Expiration Date V isits Requested Visits Authorized [id number] Authorized 05/20/2023 05/26/2025 99 99 Encounter Details Date Type Department Care Team (Latest Contact Info) Description 03/10/2024 1:06 PM CDT - 03/10/2024 11:59 PM CDT Hospital Encounter [facility] Infusion Center 2nd Fl [address] [place] [address] Aviva Humphries MD [address] [place] [address] Infusion Chair 7, 2nd Floor Hall Discharge Disposition: Home or [...] bedtime. 02/26/2021 fluticasone propionate (FLONASE) 50 mcg/spray [place], Suspension nasal inhaler Administer 2 Sprays in each nostril daily. omega-3 fatty acids-fish oil 300-1,000 mg Capsule Take 2 Capsules by mouth daily. olaparib (Lynparza) 150 mg tablet take 2 tablets by mouth 2 times a day 120 Tablet 3 02/15/2024 05/12/2024 documented as of this encounter Progress Notes * Ashlee Miller, RN - 03/10/2024 1:30 PM CDT November Chemotherapy Infusion complete, pt tolerated without complaints of discomfort at this time. Denies any hypersensitivity reactions. Port flushed with compatible IV solution, then flushed with saline and heparin per [facility] policy. Port deaccessed. Prior to chemotherapy administration:reviewed [...] st Contact Info) Description 08/04/2024 1:00 PM A CLASS LINEMAN Appointment [facility] 2nd Dc [address] [place] [address] Aviva Humphries MD [address] [place] [address] Infusion Chair 5, 2nd Floor [place] 08/25/2024 1:00 PM A CLASS LINEMAN Office Visit [facility] [place] Gynecologic Oncology Hall [address] [facility] [address] [place] [address] Edilia Pettit, CHELY [address] [facility] [address] [place] [address] 08/25/2024 1:30 PM A CLASS LINEMAN Appointment Randy [facility] Infusion Center 2nd Dc [address] [place] [address] Aviva Humphries MD [address] [facility] [address] [facility] [place] [address] Infusion Chair 1, 2nd Floor [place] 09/01/2024 10:45 AM A CLASS LINEMAN Appointment [facility] Nuclear Medicine [address] [place] [address] [id number] Edilia Pettit, DAG SPRAYER [address] [address] documented as of this encounter [...] IV, ONE TIME ONLY, 1 dose, On Thu03/10/24 at 1315, Routine New Bag 03/10/2024 1:44 PM CDT 773 mg 291.8 mL/hr heparin, porcine (pf) 10 unit/mL IV syringe 50 Units 50 Units, IV, ONE TIME ONLY, 1 dose, On Thu03/10/24 at 1400, Routine Given 03/10/2024 2:19 PM CDT 50 Units sodium chloride 0.9% infusion IV, at 30-999 mL/hr, CONTINUOUS, Starting on Peace 03/10/24 at 1315, Until Thu03/11/24 at 0304, Routine Rate Change 03/10/2024 2:13 PM CDT 300 mL/hr New Bag 03/10/2024 1:21 PM CDT 250 mL 30 mL/hr sodium chloride flush injection 10 mL 10 mL, IV, SEE ADMIN INSTRUCTIONS, Starting on Peace 03/10/24 at 1313, Until Thu03/11/24 at 0304, Routine Given 03/10/2024 1:20 PM CDT 10 mL documented in this encounter Care Teams Counseling Center Manager Relationship Specialty Start Date End Date Shilo Soares MD [address] [place] [address] PCP - General Internal Medicine 04/24/23 documented as of this encounter
--- OUTSIDE RECORDS SUMMARY | 2024-07-26 23:47 | XMS_ITS | Encounter Summary ---
Author Organization [facility] Address [address] [place] [address] Care Team Providers Care Arc Cutter Plasma Arc Name Role Phone Shilo Soares MD Primary Care Provider [phone] Encounter Details Date Type Department Care Team [...] (Late Contact Info) Description 08/04/2024 1:00 PM JOWL TRIMMER Appointment [facility] 2nd [place] [address] [place] [address] Aviva Humphries MD [address] [place] [address] Infusion Chair 5, 2nd Floor [place] 08/25/2024 1:00 PM JOWL TRIMMER Office Visit [facility] Gynecologic Oncology Hall [address] [place] [address] Edilia Pettit, CHELY [address] [place] [address] 08/25/2024 1:30 PM JOWL TRIMMER Appointment [facility] 2nd Fl [address] [place] [address] Aviva Humphries MD [address] [place] [address] Infusion Chair 1, 2nd Floor [place] 09/01/2024 10:45 AM JOWL TRIMMER Appointment [facility] Nuclear Medicine [address] [place] [address] [id number] Edilia Pettit, CHELY [address] [facility] [address] [place] [address] documented as of this encounter Visit Diagnoses Not on filedocumented in this encounter Care Teams Arc Cutter Plasma Arc Relationship Specialty Start Date End Date Shilo Soares MD [address] [place] [address] PCP - General Internal Medicine 04/24/23 documented as of this encounter
--- OUTSIDE RECORDS SUMMARY | 2024-07-26 23:47 | XMS_ITS | Encounter Summary ---
Author Organization [facility] Address [address] [place] [address] Care Team Providers Care Sports Medicine Masseur Name Role Phone Shilo Soares MD Primary Care Provider [phone] Encounter Details Date Type Department Care Team [...] (Late Contact Info) Description 08/04/2024 1:00 PM COLORER HIDES AND SKINS Appointment [facility] 2nd [place] [address] [place] [address] Aviva Humphries MD [address] [place] [address] Infusion Chair 5, 2nd Floor [place] 08/25/2024 1:00 PM COLORER HIDES AND SKINS Office Visit [facility] Gynecologic Oncology Hall [address] [place] [address] Edilia Pettit, CHELY [address] [place] [address] 08/25/2024 1:30 PM COLORER HIDES AND SKINS Appointment [facility] 2nd Fl [address] [place] [address] Aviva Humphries MD [address] [facility] [facility] [address] [place] [address] Infusion Chair 1, 2nd Floor [place] 09/01/2024 10:45 AM COLORER HIDES AND SKINS Appointment [facility] Nuclear Medicine [address] [place] [address] [id number] Edilia Pettit, CHELY [address] [facility] [address] [place] [address] documented as of this encounter Visit Diagnoses Not on filedocumented in this encounter Care Teams Sports Medicine Masseur Relationship Specialty Start Date End Date Shilo Soares MD [address] [place] [address] PCP - General Internal Medicine 04/24/23 documented as of this encounter
--- OUTSIDE RECORDS SUMMARY | 2024-07-26 23:47 | XMS_ITS | Encounter Summary ---
Author Organization [facility] Address [address] [place] [address] Care Team Providers Care Jelly Maker Name Role Phone Shilo Soares MD Primary Care Provider [phone] Encounter Details Date Type Department Care Team [...] (Late Contact Info) Description 08/04/2024 1:00 PM SPINDRAW OPERATOR Appointment [facility] 2nd [place] [address] [place] [address] Aviva Humphries MD [address] [place] [address] Infusion Chair 5, 2nd Floor [place] 08/25/2024 1:00 PM SPINDRAW OPERATOR Office Visit [facility] Gynecologic Oncology Hall [address] [place] [address] Edilia Pettit, CHELY [address] [facility] [facility] [address] [place] [address] 08/25/2024 1:30 PM SPINDRAW OPERATOR Appointment [facility] 2nd Fl [address] [place] [address] Aviva Humphries MD [address] [facility] [address] [facility] [address] [place] [address] Infusion Chair 1, 2nd Floor [place] 09/01/2024 10:45 AM SPINDRAW OPERATOR Appointment [facility] Nuclear Medicine [address] [place] [address] [id number] Edilia Pettit, CHELY [address] [facility] [address] [place] [address] documented as of this encounter Visit Diagnoses Not on filedocumented in this encounter Care Teams Jelly Maker Relationship Specialty Start Date End Date Shilo Soares MD [address] [place] [address] PCP - General Internal Medicine 04/24/23 documented as of this encounter
--- OUTSIDE RECORDS SUMMARY | 2024-07-26 23:47 | XMS_ITS | Encounter Summary ---
Author Organization [facility] Address [address] [place] [address] Care Team Providers Care Hotel Reservation Agent Name Role Phone Shilo Soares MD Primary Care Provider [phone] Encounter Details Date Type Department Care Team [...] (Late Contact Info) Description 08/04/2024 1:00 PM CAD DESIGN ENGINEER Appointment [facility] 2[facility] Md [address] [place] [address] Aviva Humphries MD [address] [place] [address] Infusion Chair 5, 2nd Floor [place] 08/25/2024 1:00 PM CAD DESIGN ENGINEER Office Visit [facility] Gynecologic Oncology Hall [address] [place] [address] Edilia Pettit, CHELY [address] [facility] [place] [address] 08/25/2024 1:30 PM CAD DESIGN ENGINEER Appointment [facility] 2nd Fl [address] [place] [address] Aviva Humphries MD [address] [facility] [address] [place] [address] Infusion Chair 1, 2nd Floor [place] 09/01/2024 10:45 AM CAD DESIGN ENGINEER Appointment [facility] Nuclear Medicine [address] [place] [address] [id number] Edilia Pettit, CHELY [address] [facility] [address] [place] [address] documented as of this encounter Visit Diagnoses Not on filedocumented in this encounter Care Teams Hotel Reservation Agent Relationship Specialty Start Date End Date Shilo Soares MD [address] [place] [address] PCP - General Internal Medicine 04/24/23 documented as of this encounter
--- OUTSIDE RECORDS SUMMARY | 2024-07-26 23:47 | XMS_ITS | Encounter Summary ---
Author Organization [facility] Address [address] [place] [address] Care Team Providers Care Product Safety Engineer Name Role Phone Shilo Soares MD Primary Care Provider [phone] Encounter Details Date Type Department Care Team [...] (Late Contact Info) Description 08/04/2024 1:00 PM PETROGRAPHER Appointment [facility] 2nd Mi [address] [place] [address] Aviva Humphries MD [address] [place] [address] Infusion Chair 5, 2nd Floor Hall 08/25/2024 1:00 PM PETROGRAPHER Office Visit [facility] Gynecologic Oncology Hall [address] [place] [address] Edilia Pettit, CHELY [address] [facility] [address] [place] [address] 08/25/2024 1:30 PM PETROGRAPHER Appointment [facility] 2nd Fl [address] [place] [address] Aviva Humphries MD [address] [place] [address] Infusion Chair 1, 2nd Floor [place] 09/01/2024 10:45 AM PETROGRAPHER Appointment [facility] Nuclear Medicine [address] [place] [address] [id number] Edilia Pettit, CHELY [address] [facility] [address] [place] [address] documented as of this encounter Visit Diagnoses Not on filedocumented in this encounter Care Teams Product Safety Engineer Relationship Specialty Start Date End Date Shilo Soares MD [address] [place] [address] PCP - General Internal Medicine 04/24/23 documented as of this encounter
--- OUTSIDE RECORDS SUMMARY | 2024-07-26 23:47 | XMS_ITS | Encounter Summary ---
Author Organization [facility] Address [address] [place] [address] Care Team Providers Care Magnetic Grinder Operator Name Role Phone Shilo Soares MD Primary Care Provider [phone] Encounter Details Date Type Department Care Team [...] (Late Contact Info) Description 08/04/2024 1:00 PM BATTERY PARTS ASSEMBLER Appointment [facility] 2nd Tn [address] [place] [address] Aviva Humphries MD [address] [place] [address] Infusion Chair 5, 2nd Floor [place] 08/25/2024 1:00 PM BATTERY PARTS ASSEMBLER Office Visit [facility] Gynecologic Oncology Hall [address] [place] [address] Edilia Pettit, CHELY [address] [facility] [facility] [address] [place] [address] 08/25/2024 1:30 PM BATTERY PARTS ASSEMBLER Appointment [facility] 2nd Fl [address] [place] [address] Aviva Humphries MD [address] [place] [address] Infusion Chair 1, 2nd Floor [place] 09/01/2024 10:45 AM BATTERY PARTS ASSEMBLER Appointment [facility] Nuclear Medicine [address] [place] [address] [id number] Edilia Pettit, CHELY [address] [facility] [address] [place] [address] documented as of this encounter Visit Diagnoses Not on filedocumented in this encounter Care Teams Magnetic Grinder Operator Relationship Specialty Start Date End Date Shilo Soares MD [address] [place] [address] PCP - General Internal Medicine 04/24/23 documented as of this encounter
--- OUTSIDE RECORDS SUMMARY | 2024-07-26 23:47 | XMS_ITS | Encounter Summary ---
Author Organization [facility] Address [address] [place] [address] Care Team Providers Care Plastic Jig And Fixture Builder Name Role Phone Shilo Soares MD Primary Care Provider [phone] Encounter Details Date Type Department Care Team [...] (Late Contact Info) Description 08/04/2024 1:00 PM NITRO MAN Appointment [facility] 2nd Az [address] [place] [address] Aviva Humphries MD [address] [place] [address] Infusion Chair 5, 2nd Floor Hall 08/25/2024 1:00 PM NITRO MAN Office Visit [facility] Gynecologic Oncology Hall [address] [place] [address] Edilia Pettit, CHELY [address] [address] [place] [address] 08/25/2024 1:30 PM NITRO MAN Appointment [facility] 2nd Fl [address] [place] [address] Aviva Humphries MD [address] [facility] [address] [place] [address] Infusion Chair 1, 2nd Floor [place] 09/01/2024 10:45 AM NITRO MAN Appointment [facility] Nuclear Medicine [address] [place] [address] [id number] Edilia Pettit, CHELY [address] [facility] [address] [place] [address] documented as of this encounter Visit Diagnoses Not on filedocumented in this encounter Care Teams Plastic Jig And Fixture Builder Relationship Specialty Start Date End Date Shilo Soares MD [address] [place] [address] PCP - General Internal Medicine 04/24/23 documented as of this encounter
--- OUTSIDE RECORDS SUMMARY | 2024-07-26 23:47 | XMS_ITS | Encounter Summary ---
Author Organization [facility] Address [address] [place] [address] Care Team Providers Care Rattlesnake Farmer Name Role Phone Shilo Soares MD Primary Care Provider [phone] Encounter Details Date Type Department Care Team [...] (Late Contact Info) Description 08/04/2024 1:00 PM INTAKE CLINICIAN Appointment [facility] 2nd De [address] [place] [address] Aviva Humphries MD [address] [place] [address] Infusion Chair 5, 2nd Floor Hall 08/25/2024 1:00 PM INTAKE CLINICIAN Office Visit [facility] Gynecologic Oncology Hall [address] [place] [address] Edilia Pettit, CHELY [address] [facility] [address] [place] [address] 08/25/2024 1:30 PM INTAKE CLINICIAN Appointment [facility] 2nd Fl [address] [place] [address] Aviva Humphries MD [address] [place] [address] Infusion Chair 1, 2nd Floor [place] 09/01/2024 10:45 AM INTAKE CLINICIAN Appointment [facility] Nuclear Medicine [address] [place] [address] [id number] Edilia Pettit, CHELY [address] [facility] [address] [place] [address] documented as of this encounter Visit Diagnoses Not on filedocumented in this encounter Care Teams Rattlesnake Farmer Relationship Specialty Start Date End Date Shilo Soares MD [address] [place] [address] PCP - General Internal Medicine 04/24/23 documented as of this encounter
--- OUTSIDE RECORDS SUMMARY | 2024-07-26 23:48 | XMS_ITS | Encounter Summary ---
Author Organization [facility] Address [address] [place] [address] Care Team Providers Care Corporate Recruiter Name Role Phone Shilo Soares MD Primary Care Provider [phone] Encounter Details Date Type Department Care Team (Late Contact Info) Description 02/25/2024 External Device Data STL ABSTRACTION Provider, Abstract [...] (Late Contact Info) Description 08/04/2024 1:00 PM PAINTER SET Appointment [facility] 2nd Ks [address] [place] [address] Aviva Humphries MD [address] [place] [address] Infusion Chair 5, 2nd Floor [place] 08/25/2024 1:00 PM PAINTER SET Office Visit [facility] Gynecologic Oncology Hall [address] [place] [address] Edilia Pettit, CHELY [address] [facility] [address] [place] [address] 08/25/2024 1:30 PM PAINTER SET Appointment [facility] 2nd Fl [address] [place] [address] Aviva Humphries MD [address] [place] [address] Infusion Chair 1, 2nd Floor [place] 09/01/2024 10:45 AM PAINTER SET Appointment [facility] Nuclear Medicine [address] [place] [address] [id number] Edilia Pettit, CHELY [address] [facility] [address] [place] [address] documented as of this encounter Visit Diagnoses Not on filedocumented in this encounter Care Teams Corporate Recruiter Relationship Specialty Start Date End Date Shilo Soares MD [address] [place] [address] PCP - General Internal Medicine 04/24/23 documented as of this encounter
--- OUTSIDE RECORDS SUMMARY | 2024-07-26 23:48 | XMS_ITS | Encounter Summary ---
Author Organization [facility] Address [address] [place] [address] Care Team Providers Care School Psychometrist Name Role Phone Shilo Soares MD Primary Care Provider [phone] Encounter Details Date Type Department Care Team (Late Contact Info) Description 02/23/2024 External Device Data STL ABSTRACTION Provider, Abstract [...] Infusion Center 2nd Sd [address] [place] [address] Aviva Humphries MD [address] [place] [address] Infusion Chair 5, 2nd Floor Hall 08/25/2024 1:00 PM INDUSTRIAL PRODUCTION MANAGER Office Visit [facility] Gynecologic Oncology Hall [address] [place] [address] Edilia Pettit, CHELY [address] [address] [place] [address] 08/25/2024 1:30 PM INDUSTRIAL PRODUCTION MANAGER Appointment [facility] 2nd Fl [address] [place] [address] Aviva Humphries MD [address] [place] [address] Infusion Chair 1, 2nd Floor [place] 09/01/2024 10:45 AM INDUSTRIAL PRODUCTION MANAGER Appointment [facility] [place] Nuclear Medicine [address] [place] [address] [id number] Edilia Pettit, CHELY [address] [facility] [address] [place] [address] documented as of this encounter Visit Diagnoses Not on filedocumented in this encounter Care Teams School Psychometrist Relationship Specialty Start Date End Date Shilo Soares MD [address] [place] [address] PCP - General Internal Medicine 04/24/23 documented as of this encounter
--- OUTSIDE RECORDS SUMMARY | 2024-07-26 23:48 | XMS_ITS | Encounter Summary ---
Author Organization [facility] Address [address] [place] [address] Care Team Providers Care Master Control Technician Name Role Phone Shilo Soares MD Primary Care Provider [phone] Encounter Details Date Type Department Care Team (Late Contact Info) Description 02/22/2024 External Device Data STL ABSTRACTION Provider, Abstract [...] (Late Contact Info) Description 08/04/2024 1:00 PM HOUSEKEEPING AID Appointment [facility] 2nd Ks [address] [place] [address] Aviva Humphries MD [address] [place] [address] Infusion Chair 5, 2nd Floor Hall 08/25/2024 1:00 PM HOUSEKEEPING AID Office Visit [facility] Gynecologic Oncology Hall [address] [place] [address] Edilia Pettit, CHELY [address] [facility] [address] [place] [address] 08/25/2024 1:30 PM HOUSEKEEPING AID Appointment [facility] 2nd Fl [address] [place] [address] Aviva Humphries MD [address] [place] [address] Infusion Chair 1, 2nd Floor [place] 09/01/2024 10:45 AM HOUSEKEEPING AID Appointment [facility] Nuclear Medicine [address] [place] [address] [id number] Edilia Pettit, CHELY [address] [facility] [address] [place] [address] documented as of this encounter Visit Diagnoses Not on filedocumented in this encounter Care Teams Master Control Technician Relationship Specialty Start Date End Date Shilo Soares MD [address] [place] [address] PCP - General Internal Medicine 04/24/23 documented as of this encounter
--- OUTSIDE RECORDS SUMMARY | 2024-07-26 23:48 | XMS_ITS | Encounter Summary ---
Author Organization [facility] Address [address] [place] [address] Care Team Providers Care Theater Education Teacher Name Role Phone Shilo Soares MD Primary Care Provider [phone] Encounter Details Date Type Department Care Team (Late Contact Info) Description 02/21/2024 External Device Data STL ABSTRACTION Provider, Abstract [...] (Late Contact Info) Description 08/04/2024 1:00 PM INVESTIGATIONS MANAGER Appointment [facility] 2nd Nv [address] [place] [address] Aviva Humphries MD [address] [place] [address] Infusion Chair 5, 2nd Floor Hall 08/25/2024 1:00 PM INVESTIGATIONS MANAGER Office Visit [facility] Gynecologic Oncology Hall [address] [place] [address] Edilia Pettit, CHELY [address] [facility] [facility] [address] [place] [address] 08/25/2024 1:30 PM INVESTIGATIONS MANAGER Appointment [facility] 2nd Fl [address] [place] [address] Aviva Humphries MD [address] [facility] [address] [place] [address] Infusion Chair 1, 2nd Floor [place] 09/01/2024 10:45 AM INVESTIGATIONS MANAGER Appointment [facility] Nuclear Medicine [address] [place] [address] [id number] Edilia Pettit, CHELY [address] [facility] [address] [place] [address] documented as of this encounter Visit Diagnoses Not on filedocumented in this encounter Care Teams Theater Education Teacher Relationship Specialty Start Date End Date Shilo Soares MD [address] [place] [address] PCP - General Internal Medicine 04/24/23 documented as of this encounter
--- OUTSIDE RECORDS SUMMARY | 2024-07-26 23:48 | XMS_ITS | Encounter Summary ---
Author Organization [facility] Address [address] [place] [address] Care Team Providers Care Cereal Popper Name Role Phone Shilo Soares MD Primary Care Provider [phone] Encounter Details Date Type Department Care Team (Late Contact Info) Description 02/24/2024 External Device Data STL ABSTRACTION Provider, Abstract [...] (Late Contact Info) Description 08/04/2024 1:00 PM PURCHASING MANAGER/SALES Appointment [facility] 2nd [place] [address] [place] [address] Aviva Humphries MD [address] [place] [address] Infusion Chair 5, 2nd Floor Hall 08/25/2024 1:00 PM PURCHASING MANAGER/SALES Office Visit [facility] Gynecologic Oncology Hall [address] [place] [address] Edilia Pettit, CHELY [address] [facility] [address] [place] [address] 08/25/2024 1:30 PM PURCHASING MANAGER/SALES Appointment [facility] 2nd Fl [address] [place] [address] Aviva Humphries MD [address] [facility] [facility] [address] [place] [address] Infusion Chair 1, 2nd Floor [place] 09/01/2024 10:45 AM PURCHASING MANAGER/SALES Appointment [facility] Nuclear Medicine [address] [place] [address] [id number] Edilia Pettit, CHELY [address] [facility] [address] [place] [address] documented as of this encounter Visit Diagnoses Not on filedocumented in this encounter Care Teams Cereal Popper Relationship Specialty Start Date End Date Shilo Soares MD [address] [place] [address] PCP - General Internal Medicine 04/24/23 documented as of this encounter
--- OUTSIDE RECORDS SUMMARY | 2024-07-26 23:48 | XMS_ITS | Encounter Summary ---
Author Organization [facility] Address [address] [place] [address] Care Team Providers Care Abstract Checker Name Role Phone Shilo Soares MD Primary Care Provider [phone] Encounter Details Date Type Department Care Team [...] (Late Contact Info) Description 08/04/2024 1:00 PM HOSPICE CARE SALES CONSULTANT Appointment [facility] 2nd Ut [address] [place] [address] Aviva Humphries MD [address] [place] [address] Infusion Chair 5, 2nd Floor Hall 08/25/2024 1:00 PM HOSPICE CARE SALES CONSULTANT Office Visit [facility] Gynecologic Oncology Hall [address] [place] [address] Edilia Pettit, CHELY [address] [facility] [address] [place] [address] 08/25/2024 1:30 PM HOSPICE CARE SALES CONSULTANT Appointment [facility] 2nd Fl [address] [place] [address] Aviva Humphries MD [address] [place] [address] Infusion Chair 1, 2nd Floor [place] 09/01/2024 10:45 AM HOSPICE CARE SALES CONSULTANT Appointment [facility] Nuclear Medicine [address] [place] [address] [id number] Edilia Pettit, CHELY [address] [facility] [address] [place] [address] documented as of this encounter Visit Diagnoses Not on filedocumented in this encounter Care Teams Abstract Checker Relationship Specialty Start Date End Date Shilo Soares MD [address] [place] [address] PCP - General Internal Medicine 04/24/23 documented as of this encounter
--- OUTSIDE RECORDS SUMMARY | 2024-07-26 23:48 | XMS_ITS | Encounter Summary ---
Author Organization [facility] Address [address] [place] [address] Care Team Providers Care Gemologist Name Role Phone Shilo Soares MD Primary Care Provider [phone] Encounter Details Date Type Department Care Team [...] (Late Contact Info) Description 08/04/2024 1:00 PM RETAIL SALES ASSOCIATE BILINGUAL Appointment [facility] 2nd [place] [address] [place] [address] Aviva Humphries MD [address] [place] [address] Infusion Chair 5, 2nd Floor Hall 08/25/2024 1:00 PM RETAIL SALES ASSOCIATE BILINGUAL Office Visit [facility] Gynecologic Oncology Hall [address] [place] [address] Edilia Pettit, CHELY [address] [facility] [address] [place] [address] 08/25/2024 1:30 PM RETAIL SALES ASSOCIATE BILINGUAL Appointment [facility] 2nd Fl [address] [place] [address] Aviva Humphries MD [address] [place] [address] Infusion Chair 1, 2nd Floor [place] 09/01/2024 10:45 AM RETAIL SALES ASSOCIATE BILINGUAL Appointment [facility] Nuclear Medicine [address] [place] [address] [id number] Edilia Pettit, CHELY [address] [facility] [address] [place] [address] documented as of this encounter Visit Diagnoses Not on filedocumented in this encounter Care Teams Gemologist Relationship Specialty Start Date End Date Shilo Soares MD [address] [place] [address] PCP - General Internal Medicine 04/24/23 documented as of this encounter
--- OUTSIDE RECORDS SUMMARY | 2024-07-26 23:48 | XMS_ITS | Encounter Summary ---
Author Organization [facility] Address [address] [place] [address] Care Team Providers Care Antenna Rigger Name Role Phone Shilo Soares MD Primary Care Provider [phone] Encounter Details Date Type Department Care Team [...] (Late Contact Info) Description 08/04/2024 1:00 PM TURNTABLE WORKER Appointment [facility] 2nd Ca [address] [place] [address] Aviva Humphries MD [address] [place] [address] Infusion Chair 5, 2nd Floor [place] 08/25/2024 1:00 PM TURNTABLE WORKER Office Visit [facility] Gynecologic Oncology Hall [address] [place] [address] Edilia Pettit, CHELY [address] [facility] [address] [place] [address] 08/25/2024 1:30 PM TURNTABLE WORKER Appointment [facility] 2nd Fl [address] [place] [address] Aviva Humphries MD [address] [facility] [address] [place] [address] Infusion Chair 1, 2nd Floor [place] 09/01/2024 10:45 AM TURNTABLE WORKER Appointment [facility] Nuclear Medicine [address] [place] [address] [id number] Edilia Pettit, CHELY [address] [facility] [address] [place] [address] documented as of this encounter Visit Diagnoses Not on filedocumented in this encounter Care Teams Antenna Rigger Relationship Specialty Start Date End Date Shilo Soares MD [address] [place] [address] PCP - General Internal Medicine 04/24/23 documented as of this encounter
--- OUTSIDE RECORDS SUMMARY | 2024-07-26 23:48 | XMS_ITS | Encounter Summary ---
Author Organization [facility] Address [address] [place] [address] Care Team Providers Care Paper Coating Machine Operator Name Role Phone Shilo Soares MD Primary Care Provider [phone] Encounter Details Date Type Department Care Team [...] (Late Contact Info) Description 08/04/2024 1:00 PM STUDY DIRECTOR Appointment [facility] [address] [place] [address] Aviva Humphries MD [address] [place] [address] Infusion Chair 5, 2nd Floor [place] 08/25/2024 1:00 PM STUDY DIRECTOR Office Visit [facility] Gynecologic Oncology Hall [address] [place] [address] Edilia Pettit, CHELY [address] [address] [facility] [address] [place] [address] 08/25/2024 1:30 PM STUDY DIRECTOR Appointment [facility] 2nd Fl [address] [place] [address] Aviva Humphries MD [address] [place] [address] Infusion Chair 1, 2nd Floor [place] 09/01/2024 10:45 AM STUDY DIRECTOR Appointment [facility] Nuclear Medicine [address] [place] [address] [id number] Edilia Pettit, CHELY [address] [facility] [address] [place] [address] documented as of this encounter Visit Diagnoses Not on filedocumented in this encounter Care Teams Paper Coating Machine Operator Relationship Specialty Start Date End Date Shilo Soares MD [address] [place] [address] PCP - General Internal Medicine 04/24/23 documented as of this encounter
--- OUTSIDE RECORDS SUMMARY | 2024-07-26 23:48 | XMS_ITS | Encounter Summary ---
Author Organization [facility] Address [address] [place] [address] Care Team Providers Care Paid Search Analyst Name Role Phone Shilo Soares MD Primary Care Provider [phone] Encounter Details Date Type Department Care Team [...] (Late Contact Info) Description 08/04/2024 1:00 PM JERSEY KNITTER Appointment [facility] 2nd De [address] [place] [address] Aviva Humphries MD [address] [place] [address] Infusion Chair 5, 2nd Floor Hall 08/25/2024 1:00 PM JERSEY KNITTER Office Visit [facility] Gynecologic Oncology Hall [address] [place] [address] Edilia Pettit, CHELY [address] [place] [address] 08/25/2024 1:30 PM JERSEY KNITTER Appointment [facility] 2nd Fl [address] [place] [address] Aviva Humphries MD [address] [place] [address] Infusion Chair 1, 2nd Floor [place] 09/01/2024 10:45 AM JERSEY KNITTER Appointment [facility] Nuclear Medicine [address] [place] [address] [id number] Edilia Pettit, CHELY [address] [facility] [address] [place] [address] documented as of this encounter Visit Diagnoses Not on filedocumented in this encounter Care Teams Paid Search Analyst Relationship Specialty Start Date End Date Shilo Soares MD [address] [place] [address] PCP - General Internal Medicine 04/24/23 documented as of this encounter
--- OUTSIDE RECORDS SUMMARY | 2024-07-26 23:48 | XMS_ITS | Encounter Summary ---
Author Organization [facility] Address [address] [place] [address] Care Team Providers Care Dog Or Animal Sitter Name Role Phone Shilo Soares MD Primary Care Provider [phone] Encounter Details Date Type Department Care Team [...] (Late Contact Info) Description 08/04/2024 1:00 PM GLOBAL PROJECT MANAGER Appointment [facility] 2nd [place] [address] [place] [address] Aviva Humphries MD [address] [place] [address] Infusion Chair 5, 2nd Floor Hall 08/25/2024 1:00 PM GLOBAL PROJECT MANAGER Office Visit [facility] Gynecologic Oncology Hall [address] [place] [address] Edilia Pettit, CHELY [address] [place] [address] 08/25/2024 1:30 PM GLOBAL PROJECT MANAGER Appointment [facility] 2nd Fl [address] [place] [address] Aviva Humphries MD [address] [place] [address] Infusion Chair 1, 2nd Floor [place] 09/01/2024 10:45 AM GLOBAL PROJECT MANAGER Appointment [facility] Nuclear Medicine [address] [place] [address] [id number] Edilia Pettit, CHELY [address] [facility] [address] [place] [address] documented as of this encounter Visit Diagnoses Not on filedocumented in this encounter Care Teams Dog Or Animal Sitter Relationship Specialty Start Date End Date Shilo Soares MD [address] [place] [address] PCP - General Internal Medicine 04/24/23 documented as of this encounter
--- OUTSIDE RECORDS SUMMARY | 2024-07-26 23:48 | XMS_ITS | Encounter Summary ---
Author Organization [facility] Address [address] [place] [address] Care Team Providers Care Director Smb Sales Name Role Phone Shilo Soares MD Primary Care Provider [phone] Encounter Details Date Type Department Care Team [...] (Late Contact Info) Description 08/04/2024 1:00 PM CHEF UNDER Appointment [facility] 2nd Nh [address] [place] [address] Aviva Humphries MD [address] [place] [address] Infusion Chair 5, 2nd Floor Hall 08/25/2024 1:00 PM CHEF UNDER Office Visit [facility] Gynecologic Oncology Hall [address] [place] [address] Edilia Pettit, CHELY [address] [address] [place] [address] 08/25/2024 1:30 PM CHEF UNDER Appointment [facility] 2nd Fl [address] [place] [address] Aviva Humphries MD [address] [place] [address] Infusion Chair 1, 2nd Floor [place] 09/01/2024 10:45 AM CHEF UNDER Appointment [facility] Nuclear Medicine [address] [place] [address] [phone] Edilia Pettit, CHELY [address] [facility] [address] [place] [address] documented as of this encounter Visit Diagnoses Not on filedocumented in this encounter Care Teams Director Smb Sales Relationship Specialty Start Date End Date Shilo Soares MD [address] [place] [address] PCP - General Internal Medicine 04/24/23 documented as of this encounter
--- OUTSIDE RECORDS SUMMARY | 2024-07-26 23:48 | XMS_ITS | Encounter Summary ---
Author Organization [facility] Address [address] [place] [address] Care Team Providers Care Elevator Starter Name Role Phone Shilo Soares MD Primary Care Provider [phone] Encounter Details Date Type Department Care Team [...] (Late Contact Info) Description 08/04/2024 1:00 PM SOCIALLY RESPONSIBLE INVESTMENT ADVISER Appointment [facility] 2nd [place] [address] [place] [address] Aviva Humphries MD [address] [place] [address] Infusion Chair 5, 2nd Floor [place] 08/25/2024 1:00 PM SOCIALLY RESPONSIBLE INVESTMENT ADVISER Office Visit [facility] Gynecologic Oncology Hall [address] [place] [address] Edilia Pettit, CHELY [address] [facility] [address] [place] [address] 08/25/2024 1:30 PM SOCIALLY RESPONSIBLE INVESTMENT ADVISER Appointment [facility] 2nd Fl [address] [place] [address] Aviva Humphries MD [address] [place] [address] Infusion Chair 1, 2nd Floor [place] 09/01/2024 10:45 AM SOCIALLY RESPONSIBLE INVESTMENT ADVISER Appointment [facility] Nuclear Medicine [address] [place] [address] [id number] Edilia Pettit, CHELY [address] [facility] [address] [place] [address] documented as of this encounter Visit Diagnoses Not on filedocumented in this encounter Care Teams Elevator Starter Relationship Specialty Start Date End Date Shilo Soares MD [address] [place] [address] PCP - General Internal Medicine 04/24/23 documented as of this encounter
--- OUTSIDE RECORDS SUMMARY | 2024-07-26 23:48 | XMS_ITS | Encounter Summary ---
Author Organization [facility] Address [address] [place] [address] Care Team Providers Care Biofuels Plant Superintendent Name Role Phone Shilo Soares MD Primary Care Provider [phone] Encounter Details Date Type Department Care Team [...] (Late Contact Info) Description 08/04/2024 1:00 PM LAMP ASSEMBLER Appointment [facility] 2nd Vt [address] [place] [address] Aviva Humphries MD [address] [place] [address] Infusion Chair 5, 2nd Floor Hall 08/25/2024 1:00 PM LAMP ASSEMBLER Office Visit [facility] Gynecologic Oncology Hall [address] [place] [address] Edilia Pettit, CHELY [address] [facility] [address] [place] [address] 08/25/2024 1:30 PM LAMP ASSEMBLER Appointment [facility] 2nd Fl [address] [place] [address] Aviva Humphries MD [address] [place] [address] Infusion Chair 1, 2nd Floor [place] 09/01/2024 10:45 AM LAMP ASSEMBLER Appointment [facility] Nuclear Medicine [address] [place] [address] [id number] Edilia Pettit, CHELY [address] [facility] [address] [place] [address] documented as of this encounter Visit Diagnoses Not on filedocumented in this encounter Care Teams Biofuels Plant Superintendent Relationship Specialty Start Date End Date Shilo Soares MD [address] [place] [address] PCP - General Internal Medicine 04/24/23 documented as of this encounter
--- OUTSIDE RECORDS SUMMARY | 2024-07-26 23:49 | XMS_ITS | Encounter Summary ---
Author Organization [facility] Address [address] [place] [address] Care Team Providers Care Manager Business Development Hospice Name Role Phone Shilo Soares MD Primary Care Provider [phone] Reason for Visit * Reason Comments Med Refill Encounter Details Date Type Department Care Team (Late Contact Info) Description 02/15/2024 Refill [facility] Gynecologic Oncology Hall [address] [place] [address] Aviva Humphries MD [address] [place] [address] Social History Tobacco Use Types [...] (Late Contact Info) Description 08/04/2024 1:00 PM CHEMICAL RADIATION TECHNICIAN Appointment [facility] [address] Fl [address] [place] [address] Aviva Humphries MD [address] [facility] [address] [place] [address] Infusion Chair 5, 2nd Floor [place] 08/25/2024 1:00 PM CHEMICAL RADIATION TECHNICIAN Office Visit [facility] Gynecologic Oncology Hall [address] [facility] [address] [place] [address] Edilia Pettit, CHELY [address] [facility] [address] [place] [address] 08/25/2024 1:30 PM CHEMICAL RADIATION TECHNICIAN Appointment [facility] [address] [place] [address] Aviva Humphries MD [address] [facility] [address] [place] [address] Infusion Chair 1, 2nd Floor [place] 09/01/2024 10:45 AM CHEMICAL RADIATION TECHNICIAN Appointment [facility] Nuclear Medicine [address] [place] [address] [id number] Edilia Pettit, CHELY [address] [facility] [address] [place] [address] documented as of this encounter Visit Diagnoses Not on filedocumented in this encounter Care Teams Manager Business Development Hospice Relationship Specialty Start Date End Date Shilo Soares MD [address] [place] [address] PCP - General Internal Medicine 04/24/23 documented as of this encounter
--- OUTSIDE RECORDS SUMMARY | 2024-07-26 23:49 | XMS_ITS | Encounter Summary ---
Author Organization [facility] Address [address] [place] [address] Care Team Providers Care Telecommunication Equipment Repairer Name Role Phone Shilo Soares MD Primary Care Provider [phone] Encounter Details Date Type Department Care Team (Late Contact Info) Description 02/20/2024 External Device Data STL ABSTRACTION Provider, Abstract [...] (Late Contact Info) Description 08/04/2024 1:00 PM PANELBOARD OPERATOR Appointment [facility] 2nd [place] [address] [place] [address] Aviva Humphries MD [address] [place] [address] Infusion Chair 5, 2nd Floor [place] 08/25/2024 1:00 PM PANELBOARD OPERATOR Office Visit [facility] Gynecologic Oncology Hall [address] [place] [address] Edilia Pettit, CHELY [address] [facility] [address] [place] [address] 08/25/2024 1:30 PM PANELBOARD OPERATOR Appointment [facility] 2nd Fl [address] [place] [address] Aviva Humphries MD [address] [place] [address] Infusion Chair 1, 2nd Floor [place] 09/01/2024 10:45 AM PANELBOARD OPERATOR Appointment [facility] Nuclear Medicine [address] [place] [address] [id number] Edilia Pettit, CHELY [address] [facility] [address] [place] [address] documented as of this encounter Visit Diagnoses Not on filedocumented in this encounter Care Teams Telecommunication Equipment Repairer Relationship Specialty Start Date End Date Shilo Soares MD [address] [place] [address] PCP - General Internal Medicine 04/24/23 documented as of this encounter
--- OUTSIDE RECORDS SUMMARY | 2024-07-26 23:49 | XMS_ITS | Encounter Summary ---
Author Organization [facility] Address [address] [place] [address] Care Team Providers Care Plater Production Name Role Phone Shilo Soares MD Primary Care Provider [phone] Encounter Details Date Type Department Care Team (Late Contact Info) Description 02/14/2024 External Device Data STL ABSTRACTION Provider, Abstract [...] (Late Contact Info) Description 08/04/2024 1:00 PM PORTER BAGGAGE Appointment [facility] 2nd [place] [address] [place] [address] Aviva Humphries MD [address] [place] [address] Infusion Chair 5, 2nd Floor [place] 08/25/2024 1:00 PM PORTER BAGGAGE Office Visit [facility] Gynecologic Oncology Hall [address] [place] [address] Edilia Pettit, CHELY [address] [facility] [address] [place] [address] 08/25/2024 1:30 PM PORTER BAGGAGE Appointment [facility] 2nd Fl [address] [place] [address] Aviva Humphries MD [address] [place] [address] Infusion Chair 1, 2nd Floor [place] 09/01/2024 10:45 AM PORTER BAGGAGE Appointment [facility] Nuclear Medicine [address] [place] [address] [id number] Edilia Pettit, CHELY [address] [facility] [address] [place] [address] documented as of this encounter Visit Diagnoses Not on filedocumented in this encounter Care Teams Plater Production Relationship Specialty Start Date End Date Shilo Soares MD [address] [place] [address] PCP - General Internal Medicine 04/24/23 documented as of this encounter
--- OUTSIDE RECORDS SUMMARY | 2024-07-26 23:49 | XMS_ITS | Encounter Summary ---
Author Organization [facility] Address [address] [place] [address] Care Team Providers Care Religious Education Teacher Name Role Phone Shilo Soares MD Primary Care Provider [phone] Encounter Details Date Type Department Care Team (Latest Contact Info) Description 02/17/2024 1:15 PM CDT - 02/17/2024 11:59 PM CDT Hospital Encounter Randy [facility] [address] [facility] [place] [address] Aviva Humphries MD [address] [facility] [place] [address] Discharge Disposition: Home or Self [...] bedtime. 02/26/2021 fluticasone propionate (FLONASE) 50 mcg/spray [place], Suspension nasal inhaler Administer 2 Sprays in [...] st Contact Info) Description 08/04/2024 1:00 PM MANUFACTURING TECH Appointment [facility] Center 2nd Fl [address] [place] [address] Aviva Humphries MD [address] [place] [address] Infusion Chair 5, 2nd Floor [place] 08/25/2024 1:00 PM MANUFACTURING TECH Office Visit [facility] Gynecologic Oncology Hall [address] [place] [address] Edilia Pettit, CHELY [address] [place] [address] 08/25/2024 1:30 PM MANUFACTURING TECH Appointment Randy [facility] Infusion Center 2nd [address] [place] [address] Aviva Humphries MD [address] [facility] [address] [place] [address] Infusion Chair 1, 2nd Floor Hall 09/01/2024 10:45 AM MANUFACTURING TECH Appointment Randy [facility] Nuclear Medicine [address] [place] [address] [phone] Edilia Pettit, CHELY [address] [facility] [address] [place] [address] documented as of this encounter Procedures Procedure Name Priority Date/Time Associated Diagnosis Comments DIFFERENTIAL, MANUAL Stat 02/17/2024 1:26 PM CDT Malignant neoplasm of ovary, unspecified laterality CBC WITH DIFFERENTIAL Stat 02/17/2024 1:26 PM CDT Malignant neoplasm of ovary, unspecified laterality URINALYSIS W/REFLEX MICROSCOPIC Stat 02/17/2024 1:26 PM CDT Malignant neoplasm of ovary, unspecified laterality CANCER ANTIGEN 125 Routine 02/17/2024 1: 26 PM CDT Malignant neoplasm of ovary, unspecified laterality COMPREHENSIVE METABOLIC PANEL Stat 02/17/2024 1:26 PM CDT Malignant neoplasm of ovary, unspecified laterality documented in this encounter Results * MANUAL DIFFERENTIAL (02/17/2024 1:26 PM CDT) PLATELET EST. Consistent w Count 02/17/2024 2:52 PM CDT [facility] - [facility] ANISOCYTOSIS 2+ /hpf 02/17/2024 2:52 PM CDT [facility] - [facility] POIKILOCYTES 1+ /hpf 02/17/2024 2:52 PM CDT [facility] LABORATORY SERVICES - [facility] MACROCYTES 2+ /hpf 02/17/2024 2:52 PM CDT [facility] - [facility] SCHISTOCYTES 1+ /hpf 02/17/2024 2:52 PM CDT [facility] LABORATORY SERVICES - . [facility] Blood Collection / Unknown 02/17/2024 1:26 PM CDT 02/17/2024 1:50 PM CDT Aviva Humphries MD HEMATOLOGY ORDERABLE S COM [id number] [address] [place] [address] * (ABNORMAL) URINALYSIS WITH REFLEX MICROSCOPIC (02/17/2024 1:26 PM CDT) Pathologist [facility] [place] COLOR UA Colorless(A ) Pale to Dark Yellow 02/17/2024 2:28 PM CDT [facility] - [facility] CLARITY UA Clear Clear 02/17/2024 2:28 PM CDT [facility] - [facility] SPECIFIC GRAVITY UA 1.003 1.003 - 1.035 02/17/2024 2:28 PM CDT [facility] - . [facility] PH UA 6.0 5.0 - 8.0 02/17/2024 2:28 PM CDT [facility] - . [facility] LEUKOCYTE ESTERASE UA Negative Negative 02/17/2024 2:28 PM CDT [facility] - . [facility] NITRITE UA Negative Negative 02/17/2024 2:28 PM CDT [facility] - . [facility] PROTEIN UA Negative Negative 02/17/2024 2:28 PM CDT [facility]ATORY SERVICES - [facility] GLUCOSE UA Negative Negative 02/17/2024 2:28 PM CDT [facility]ATORY SERVICES - [facility] KETONES UA Negative Negative 02/17/2024 2:28 PM CDT [facility]ATORY SERVICES - [facility] UROBILINOGEN UA Normal <2.0 mg/dL 2:28 PM CDT [facility]ATORY SERVICES - [facility] BILIRUBIN UA Negative Negative 02/17/2024 2:28 PM CDT [facility] - [facility] BLOOD UA Negative Negative 02/17/2024 2:28 PM CDT [facility]ATORY SERVICES - [facility] Urine URINE SPECIMEN OBTAINED BY CLEAN CATCH PROCEDURE / Unknown Collection / Unknown 02/17/2024 1:26 PM CDT 02/17/2024 2:14 PM CDT Aviva Humphries MD URINE ORDERABLES [facility] LABORATORY SERVICES - [facility]# [id number] [address] [place] [address] * (ABNORMAL) COMPREHENSIVE METABOLIC PANEL (02/17/2024 1:26 PM CDT) SODIUM 143 136 - 145 mmol/L 02/17/2024 2:35 PM CDT [facility] - . [facility] POTASSIUM 4.0 3.5 - 5.0 mmol/L 02/17/2024 2:35 PM CDT [facility] - [facility] CHLORIDE 106 98 - 107 mmol/L 02/17/2024 2:35 PM CDT [facility]ATORY SERVICES - [facility] CO2 26 22 - 29 mmol/L 02/17/2024 2:35 PM CDT [facility] - [facility] CALCIUM 9.4 8.6 - 10.2 mg/dL 02/17/2024 2:35 PM CDT [facility] - [facility] BUN 8 8 - 23 mg/dL 02/17/2024 2:35 PM CDT [facility]ATORY SERVICES - [facility] CREATININE 1.01(H) 0.51 - 0.95 mg/dL 02/17/2024 2:35 PM CDT [facility] LABORATORY [facility] GLUCOSE 73(L) 74 - 99 mg/dL 02/17/2024 2:35 PM T [facility] TOTAL PROTEIN 7.1 6.7 - 8.6 g/dL 02/17/2024 2:35 PM T [facility] LABORATORY [facility] ALBUMIN 4.2 3.5 - 5.2 g/dL 02/17/2024 2:35 PM T [facility] BILIRUBIN TOTAL 0.4 0.2 - 1.1 mg/dL 02/17/2024 2:35 PM T [facility] LABORATORY [facility] ALKALINE PHOSPHATASE 83 35 - 104 U/L 02/17/2024 2:35 PM T [facility] AST 31 <33 U/L 02/17/2024 2:35 PM T [facility] ALT 34(H) <34 U/L 02/17/2024 2:35 PM [facility] GFR >60 >=60 mL/min/1.7 3 sq meter 02/17/2024 2:35 PM T [facility] LABORATORY [facility] Comment:eGFR calculated with 2020 CKD-EPI equation. Vegetarian diet, extremely high or low muscle mass, and may affect results. Cystatin C with Glomerular Filtration Rate is a suitable alternative for these patients. ANION GAP 11 8 - 16 mmol/L 02/17/2024 2:35 PM [facility] Blood Collection / Unknown 02/17/2024 1:26 PM CDT 02/17/2024 1:52 PM CDT [facility] LABORATORY [facility] - 02/17/2024 2:35 PM CDT Samples containing indocyanine green cause interferences on Total and/or Direct Bilirubin and must not be measured. Aviva Humphries MD CHEMISTRY ORDERABLES [facility] CLIA# [id number] [address] [facility] [place] [address] * (ABNORMAL) CBC WITH DIFFERENTIAL (02/17/2024 1:26 PM CDT) [facility] WBC 4.1 4.0 - 9.8 K/uL 02/17/2024 1:55 PM CDT [facility] - [facility] NRBCS 1 % 02/17/2024 1:55 PM CDT [facility] - [facility] RBC 2.94(L) 3.90 - 4.90 M/uL 02/17/2024 1:55 PM CDT [facility] - [facility] HEMOGLOBIN 10.9(L) 11.8 - 14.8 g/dL 02/17/2024 1:55 PM CDT [facility] - [facility] HEMATOCRIT 32.3(L) 35.5 - 44.0 % 02/17/2024 1:55 PM CDT [facility] - [facility] MCV 109.9(H) 82.0 - 99.0 fL 02/17/2024 1:55 PM CDT [facility] - [facility] MCH 37.1(H) 27.2 - 32.6 pg 02/17/2024 1:55 PM CDT [facility] - [facility] MCHC 33.7 31.5 - 35.5 g/dL 02/17/2024 1:55 PM CDT [facility] - [facility] RDW 20.3(H) 11.5 - 14.5 % 02/17/2024 1:55 PM CDT [facility] - [facility] RDW-STDEV 82.4(H) 37.1 - 48.7 fL 02/17/2024 1:55 PM CDT [facility] - [facility] PLATELETS 180 140 - 350 K/uL 02/17/2024 1:55 PM CDT [facility] - [facility] MPV 10.7 9.3 - 12.4 fL 02/17/2024 1:55 PM CDT [facility] - . [facility] NEUTROPHILS 56 % 02/17/2024 1:55 PM CDT [facility] - [facility] LYMPHOCYTES 36 % 02/17/2024 1:55 PM CDT [facility] - . [facility] MONOCYTES 6 % 02/17/2024 1:55 PM CDT [facility] EOSINOPHILS 1 % 02/17/2024 1:55 PM CDT [facility] LABORATORY SERVICES - . [facility] BASOPHILS 1 % 02/17/2024 1:55 PM CDT [facility] LABORATORY SERVICES - . [facility] IMMATURE GRANULOCYTES 0 % 02/17/2024 1:55 PM CDT [facility] LABORATORY SERVICES - . [facility] NEUTROPHIL ABSOLUTE 2.28 1.90 - 7.00 K/uL 02/17/2024 1:55 PM CDT [facility] LABORATORY SERVICES - . [facility] LYMPHOCYTE ABSOLUTE 1.48 0.70 - 4.50 K/uL 02/17/2024 1:55 PM CDT [facility] LABORATORY SERVICES - . [facility] MONOCYTE ABSOLUTE 0.23 0.10 - 1.30 K/uL 02/17/2024 1:55 PM CDT [facility] LABORATORY SERVICES - . [facility] EOSINOPHIL ABSOLUTE 0.05 0.00 - 0.70 K/uL 02/17/2024 1:55 PM CDT [facility] LABORATORY SERVICES - . [facility] BASOPHILS ABSOLUTE 0.02 0.00 - 0.20 K/uL 02/17/2024 1:55 PM CDT [facility] LABORATORY SERVICES - . [facility] IMMATURE GRANULOCYTES ABSOLUTE 0.01 0.00 - 0.03 K/uL 02/17/2024 1:55 PM CDT [facility] LABORATORY SERVICES - [facility] Blood Collection / Unknown 02/17/2024 1:26 PM CDT 02/17/2024 1:50 PM CDT Aviva Humphries MD HEMATOLOGY ORDERABLE S [facility] LABORATORY SERVICES [facility]# [id number] [address] [facility] [place] [address] * CANCER ANTIGEN 125 (02/17/2024 1:26 PM CDT) CA 125 5 <35 U/mL [facility] Comment: This test was performed using the Siemens Chemiluminescent method. Values obtained from different assay methods cannot be used interchangeably. CA 125 levels, regardless of value, should not be interpreted as absolute evidence of the presence or absence of disease. Test Performed at: [facility] [address] [place], [place] ??[address] Radha Perez MD Blood 02/17/2024 1:26 PM CDT 02/17/2024 1:56 PM CDT Aviva Humphries MD CHEMISTRY ORDERABLES [facility] [phone] [facility] [address] [place] [address] documented in this encounter Visit Diagnoses Diagnosis Malignant neoplasm of ovary, unspecified laterality documented in this encounter Administered Medications Inactive Administered Medications - up to 3 most recent administrations Medication Order MAR Action Action Date Dose Rate Site alteplase (CATHFLO ACTIVASE) 2 mg in sterile water 2 mL injection 2 mg, Dwell, ONE TIME ONLY, 1 dose, On Thu02/17/24 at 1345, Routine Given 02/17/2024 2:19 PM CDT 2 mg Ches t, Right sodium chloride flush injection 20 mL 20 mL, IV, ONE TIME ONLY, 1 dose, On Thu02/17/24 at 1330, Routine Given 02/17/2024 1:43 PM CDT 20 mL documented in this encounter Care Teams Religious Education Teacher Relationship Specialty Start Date End Date Shilo Soares MD [address] [place] [address] PCP - General Internal Medicine 04/24/23 documented as of this encounter
--- OUTSIDE RECORDS SUMMARY | 2024-07-26 23:49 | XMS_ITS | Encounter Summary ---
Author Organization [facility] Address [address] [place] [address] Care Team Providers Care Sand Tester Name Role Phone Shilo Soares MD Primary Care Provider [phone] Encounter Details Date Type Department Care Team (Late Contact Info) Description 02/13/2024 External Device Data STL ABSTRACTION Provider, Abstract [...] (Late Contact Info) Description 08/04/2024 1:00 PM BELT PUNCHER Appointment [facility] 2nd Mt [address] [place] [address] Aviva Humphries MD [address] [place] [address] Infusion Chair 5, 2nd Floor Hall 08/25/2024 1:00 PM BELT PUNCHER Office [facility] Gynecologic Oncology Hall [address] [place] [address] Edilia Pettit, CHELY [address] [place] [address] 08/25/2024 1:30 PM BELT PUNCHER Appointment [facility] 2nd Fl [address] [place] [address] Aviva Humphries MD [address] [place] [address] Infusion Chair 1, 2nd Floor [place] 09/01/2024 10:45 AM BELT PUNCHER Appointment Randy Hall [facility] Nuclear Medicine [address] [place] [address] [phone] Edilia Pettit, CHELY [address] [facility] [address] [place] [address] documented as of this encounter Visit Diagnoses Not on filedocumented in this encounter Care Teams Sand Tester Relationship Specialty Start Date End Date Shilo Soares MD [address] [place] [address] PCP - General Internal Medicine 04/24/23 documented as of this encounter
--- OUTSIDE RECORDS SUMMARY | 2024-07-26 23:49 | XMS_ITS | Encounter Summary ---
Author Organization [facility] Address [address] [place] [address] Care Team Providers Care Venetian Blind Mechanic Name Role Phone Shilo Soares MD Primary Care Provider [phone] Encounter Details Date Type Department Care Team (Late Contact Info) Description 02/19/2024 External Device Data STL ABSTRACTION Provider, Abstract [...] (Late Contact Info) Description 08/04/2024 1:00 PM CLERICAL SUPPORT SPECIALIST Appointment [facility] 2nd Ut [address] [place] [address] Aviva Humphries MD [address] [place] [address] Infusion Chair 5, 2nd Floor Hall 08/25/2024 1:00 PM CLERICAL SUPPORT SPECIALIST Office Visit [facility] Gynecologic Oncology Hall [address] [place] [address] Edilia Pettit, CHELY [address] [place] [address] 08/25/2024 1:30 PM CLERICAL SUPPORT SPECIALIST Appointment [facility] 2nd Fl [address] [place] [address] Aviva Humphries MD [address] [place] [address] Infusion Chair 1, 2nd Floor [place] 09/01/2024 10:45 AM CLERICAL SUPPORT SPECIALIST Appointment [facility] Nuclear Medicine [address] [place] [address] [phone] Edilia Pettit, CHELY [address] [facility] [address] [place] [address] documented as of this encounter Visit Diagnoses Not on filedocumented in this encounter Care Teams Venetian Blind Mechanic Relationship Specialty Start Date End Date Shilo Soares MD [address] [place] [address] PCP - General Internal Medicine 04/24/23 documented as of this encounter
--- OUTSIDE RECORDS SUMMARY | 2024-07-26 23:49 | XMS_ITS | Encounter Summary ---
Author Organization [facility] Address [address] [place] [address] Care Team Providers Care Practice Manager Name Role Phone Shilo Soares MD Primary Care Provider [phone] Encounter Details Date Type Department Care Team [...] (Late Contact Info) Description 08/04/2024 1:00 PM MARKER SHIPMENTS Appointment [facility] 2nd Nh [address] [place] [address] Aviva Humphries MD [address] [place] [address] Infusion Chair 5, 2nd Floor Hall 08/25/2024 1:00 PM MARKER SHIPMENTS Office Visit [facility] Gynecologic Oncology Hall [address] [place] [address] Eidlia Pettit, CHELY [address] [address] [place] [address] 08/25/2024 1:30 PM MARKER SHIPMENTS Appointment [facility] 2nd Fl [address] [place] [address] Aviva Humphries MD [address] [place] [address] Infusion Chair 1, 2nd Floor [place] 09/01/2024 10:45 AM MARKER SHIPMENTS Appointment [facility] Nuclear Medicine [address] [place] [address] [phone] Edilia Pettit, CHELY [address] [facility] [address] [place] [address] documented as of this encounter Visit Diagnoses Not on filedocumented in this encounter Care Teams Practice Manager Relationship Specialty Start Date End Date Shilo Soares MD [address] [place] [address] PCP - General Internal Medicine 04/24/23 documented as of this encounter
--- OUTSIDE RECORDS SUMMARY | 2024-07-26 23:49 | XMS_ITS | Encounter Summary ---
Author Organization [facility] Address [address] [place] [address] Care Team Providers Care Jalousie Installer Name Role Phone Shilo Soares MD Primary Care Provider [phone] Encounter Details Date Type Department Care Team (Late Contact Info) Description 02/10/2024 External Device Data STL ABSTRACTION Provider, Abstract [...] (Late Contact Info) Description 08/04/2024 1:00 PM RESEARCH PROJECT COORDINATOR Appointment [facility] [address] [place] [address] Aviva Humphries MD [address] [place] [address] Infusion Chair 5, 2nd Floor Hall 08/25/2024 1:00 PM RESEARCH PROJECT COORDINATOR Office Visit [facility] Gynecologic Oncology Hall [address] [place] [address] Edilia Pettit, CHELY [address] [place] [address] 08/25/2024 1:30 PM RESEARCH PROJECT COORDINATOR Appointment [facility] 2nd Fl [address] [place] [address] Aviva Humphries MD [address] [place] [address] Infusion Chair 1, 2nd Floor [place] 09/01/2024 10:45 AM RESEARCH PROJECT COORDINATOR Appointment [facility] Nuclear Medicine [address] [place] [address] [phone] Edilia Pettit, CHELY [address] [facility] [address] [place] [address] documented as of this encounter Visit Diagnoses Not on filedocumented in this encounter Care Teams Jalousie Installer Relationship Specialty Start Date End Date Shilo Soares MD [address] [place] [address] PCP - General Internal Medicine 04/24/23 documented as of this encounter
--- OUTSIDE RECORDS SUMMARY | 2024-07-26 23:49 | XMS_ITS | Encounter Summary ---
Author Organization [facility] Address [address] [place] [address] Care Team Providers Care Escalator Service Mechanic Name Role Phone Shilo Soares MD Primary Care Provider [phone] Encounter Details Date Type Department Care Team (Late Contact Info) Description 02/18/2024 External Device Data STL ABSTRACTION Provider, Abstract [...] (Late Contact Info) Description 08/04/2024 1:00 PM JACQUARD CARD CUTTER Appointment [facility] 2nd [place] [address] [place] [address] Aviva Humphries MD [address] [place] [address] Infusion Chair 5, 2nd Floor Hall 08/25/2024 1:00 PM JACQUARD CARD CUTTER Office Visit [facility] Gynecologic Oncology Hall [address] [place] [address] Edilia Pettit, CHELY [address] [place] [address] 08/25/2024 1:30 PM JACQUARD CARD CUTTER Appointment [facility] 2nd Fl [address] [place] [address] Aviva Humphries MD [address] [place] [address] Infusion Chair 1, 2nd Floor [place] 09/01/2024 10:45 AM JACQUARD CARD CUTTER Appointment [facility] Nuclear Medicine [address] [place] [address] [phone] Edilia Pettit, CHELY [address] [facility] [address] [place] [address] documented as of this encounter Visit Diagnoses Not on filedocumented in this encounter Care Teams Escalator Service Mechanic Relationship Specialty Start Date End Date Shilo Soares MD [address] [place] [address] PCP - General Internal Medicine 04/24/23 documented as of this encounter
--- OUTSIDE RECORDS SUMMARY | 2024-07-26 23:49 | XMS_ITS | Encounter Summary ---
Author Organization [facility] Address [address] [place] [address] Care Team Providers Care Electric Motor Mechanic Name Role Phone Shilo Soares MD Primary Care Provider [phone] Encounter Details Date Type Department Care Team (Late Contact Info) Description 02/16/2024 External Device Data STL ABSTRACTION Provider, Abstract [...] (Late Contact Info) Description 08/04/2024 1:00 PM CONCRETE BLOCK MASON Appointment [facility] 2nd Id [address] [place] [address] Aviva Humphries MD [address] [place] [address] Infusion Chair 5, 2nd Floor Hall 08/25/2024 1:00 PM CONCRETE BLOCK MASON Office Visit [facility] Gynecologic Oncology Hall [address] [place] [address] Edilia Pettit, CHELY [address] [place] [address] 08/25/2024 1:30 PM CONCRETE BLOCK MASON Appointment [facility] 2nd Fl [address] [place] [address] Aviva Humphries MD [address] [place] [address] Infusion Chair 1, 2nd Floor [place] 09/01/2024 10:45 AM CONCRETE BLOCK MASON Appointment [facility] Nuclear Medicine [address] [place] [address] [phone] Edilia Pettit, CHELY [address] [facility] [address] [place] [address] documented as of this encounter Visit Diagnoses Not on filedocumented in this encounter Care Teams Electric Motor Mechanic Relationship Specialty Start Date End Date Shilo Soares MD [address] [place] [address] PCP - General Internal Medicine 04/24/23 documented as of this encounter
--- OUTSIDE RECORDS SUMMARY | 2024-07-26 23:49 | XMS_ITS | Encounter Summary ---
Author Organization [facility] Address [address] [place] [address] Care Team Providers Care Residential Property Consultant Name Role Phone Shilo Soares MD Primary Care Provider [phone] Encounter Details Date Type Department Care Team (Late Contact Info) Description 02/09/2024 External Device Data STL ABSTRACTION Provider, Abstract [...] Contact Info) Description 08/04/2024 1:00 PM MARKETING INTELLIGENCE MANAGER Appointment [facility] 2nd Nm [address] [place] [address] Aviva Humphries MD [address] [place] [address] Infusion Chair 5, 2nd Floor Hall 08/25/2024 1:00 PM MARKETING INTELLIGENCE MANAGER Office Visit [facility] Gynecologic Oncology Hall [address] [place] [address] Edilia Pettit, CHELY [address] [place] [address] 08/25/2024 1:30 PM MARKETING INTELLIGENCE MANAGER Appointment [facility] 2nd Fl [address] [place] [address] Aviva Humphries MD [address] [place] [address] Infusion Chair 1, 2nd Floor [facility] 09/01/2024 10:45 AM MARKETING INTELLIGENCE MANAGER Appointment [facility] Nuclear Medicine [address] [place] [address] [id number] Edilia Pettit, CHELY [address] [facility] [address] [place] [address] documented as of this encounter Visit Diagnoses Not on filedocumented in this encounter Care Teams Residential Property Consultant Relationship Specialty Start Date End Date Shilo Soares MD [address] [place] [address] PCP - General Internal Medicine 04/24/23 documented as of this encounter
--- OUTSIDE RECORDS SUMMARY | 2024-07-26 23:49 | XMS_ITS | Encounter Summary ---
Author Organization [facility] Address [address] [place] [address] Care Team Providers Care Sales Correspondence Clerk Name Role Phone Shilo Soares MD Primary Care Provider [phone] Encounter Details Date Type Department Care Team (Late Contact Info) Description 02/18/2024 Orders Only [facility] Gynecologic Oncology Hall [address] [address] [place] [address] Edilia Pettit, CHELY [address] [facility] [address] [place] [address] Social History Tobacco Use Types [...] Contact Info) Description 08/04/2024 1:00 PM AGRICULTURAL SERVICES DIRECTOR Appointment [facility] Center 2nd Fl [address] [place] [address] Aviva Humphries MD [address] [place] [address] Infusion Chair 5, 2nd Floor [place] 08/25/2024 1:00 PM AGRICULTURAL SERVICES DIRECTOR Office Visit [facility] Gynecologic Oncology Hall [address] [place] [address] Edilia Pettit, CHELY [address] [place] [address] 08/25/2024 1:30 PM AGRICULTURAL SERVICES DIRECTOR Appointment [facility] [address] [place] [address] Aviva Humphries MD [address] [place] [address] Infusion Chair 1, 2nd Floor [place] 09/01/2024 10:45 AM AGRICULTURAL SERVICES DIRECTOR Appointment Randy Proctor [facility] Nuclear Medicine [address] [place] [address] [id number] Edilia Pettit NP [address] [facility] [address] [place] [address] documented as of this encounter Visit Diagnoses Not on filedocumented in this encounter Care Teams Sales Correspondence Clerk Relationship Specialty Start Date End Date Shilo Soares MD [address] [place] [address] PCP - General Internal Medicine 04/24/23 documented as of this encounter
--- OUTSIDE RECORDS SUMMARY | 2024-07-26 23:49 | XMS_ITS | Encounter Summary ---
Author Organization [facility] Address [address] [place] [address] Care Team Providers Care Cow Rider Name Role Phone Shilo Soares MD Primary Care Provider [phone] Encounter Details Date Type Department Care Team [...] (Late Contact Info) Description 08/04/2024 1:00 PM FIBERGLASS ROVING WINDER Appointment [facility] 2nd Nj [address] [place] [address] Aviva Humphries MD [address] [place] [address] Infusion Chair 5, 2nd Floor Hall 08/25/2024 1:00 PM FIBERGLASS ROVING WINDER [facility] Hall [address] [place] [address] Edilia Pettit, CHELY [address] [place] [address] 08/25/2024 1:30 PM FIBERGLASS ROVING WINDER Appointment [facility] 2nd Fl [address] [place] [address] Aviva Humphries MD [address] [place] [address] Infusion Chair 1, 2nd Floor [place] 09/01/2024 10:45 AM FIBERGLASS ROVING WINDER Appointment [facility] Nuclear Medicine [address] [place] [address] [id number] Edilia Pettit, CHELY [address] [facility] [address] [place] [address] documented as of this encounter Visit Diagnoses Not on filedocumented in this encounter Care Teams Cow Rider Relationship Specialty Start Date End Date Shilo Soares MD [address] [place] [address] PCP - General Internal Medicine 04/24/23 documented as of this encounter
--- OUTSIDE RECORDS SUMMARY | 2024-07-26 23:49 | XMS_ITS | Encounter Summary ---
Author Organization [facility] Address [address] [place] [address] Care Team Providers Care Intercell Connector Placer Name Role Phone Shilo Soares MD Primary Care Provider [phone] Encounter Details Date Type Department Care Team (Late Contact Info) Description 02/12/2024 External Device Data STL ABSTRACTION Provider, Abstract [...] (Late Contact Info) Description 08/04/2024 1:00 PM AUTOMATIC BUFFING WHEEL FORMER Appointment [facility] 2nd Hi [address] [place] [address] Aviva Humphries MD [address] [place] [address] Infusion Chair 5, 2nd Floor Hall 08/25/2024 1:00 PM AUTOMATIC BUFFING WHEEL FORMER Office Visit [facility] Gynecologic Oncology Hall [address] [place] [address] Edilia Pettit, CHELY [address] [address] [place] [address] 08/25/2024 1:30 PM AUTOMATIC BUFFING WHEEL FORMER Appointment [facility] 2nd Fl [address] [place] [address] Aviva Humphries MD [address] [place] [address] Infusion Chair 1, 2nd Floor [place] 09/01/2024 10:45 AM AUTOMATIC BUFFING WHEEL FORMER Appointment [facility] Nuclear Medicine [address] [place] [address] [id number] Edilia Pettit, CHELY [address] [facility] [address] [place] [address] documented as of this encounter Visit Diagnoses Not on filedocumented in this encounter Care Teams Intercell Connector Placer Relationship Specialty Start Date End Date Shilo Soares MD [address] [place] [address] PCP - General Internal Medicine 04/24/23 documented as of this encounter
--- OUTSIDE RECORDS SUMMARY | 2024-07-26 23:49 | XMS_ITS | Encounter Summary ---
Author Organization [facility] Address [address] [place] [address] Care Team Providers Care Commissions Analyst Name Role Phone Shilo Soares MD Primary Care Provider [phone] Encounter Details Date Type Department Care Team [...] (Late Contact Info) Description 08/04/2024 1:00 PM RADIO CONTROL CRANE OPERATOR Appointment [facility] 2nd Ma [address] [place] [address] Aviva Humphries MD [address] [place] [address] Infusion Chair 5, 2nd Floor Hall 08/25/2024 1:00 PM RADIO CONTROL CRANE OPERATOR Office Visit [facility] Gynecologic Oncology Hall [address] [place] [address] Edilia Pettit, CHELY [address] [place] [address] 08/25/2024 1:30 PM RADIO CONTROL CRANE OPERATOR Appointment [facility] 2nd Fl [address] [place] [address] Aviva Humphries MD [address] [place] [address] Infusion Chair 1, 2nd Floor [place] 09/01/2024 10:45 AM RADIO CONTROL CRANE OPERATOR Appointment [facility] Nuclear Medicine [address] [place] [address] [id number] Edilia Pettit, CHELY [address] [facility] [address] [place] [address] documented as of this encounter Visit Diagnoses Not on filedocumented in this encounter Care Teams Commissions Analyst Relationship Specialty Start Date End Date Shilo Soares MD [address] [place] [address] PCP - General Internal Medicine 04/24/23 documented as of this encounter
--- OUTSIDE RECORDS SUMMARY | 2024-07-26 23:49 | XMS_ITS | Encounter Summary ---
Author Organization [facility] Address [address] [place] [address] Care Team Providers Care Associate Professor Of Communication Name Role Phone Shilo Soares MD Primary Care Provider [phone] Reason for Visit * Tx/Med Therapy Plan Auth (Routine) - Authorized Specialty Diagnoses / Procedures Referred By Alison gomez Referred To Contact Diagnoses Malignant neoplasm of ovary, unspecified laterality Encounter for antineoplastic chemotherapy Nausea Procedures VT PACLITAXEL INJECTION VT CARBOPLATIN INJECTION VT INJ MVASI 10 MG VT FOSAPREPITANT INJECTION VT PALONOSETRON HCL VT DEXAMETHASONE SODIUM PHOS VT METHYLPREDNISOLONE INJECTION VT DIPHENHYDRAMINE HCL INJECTIO VT INJECTION, FAMOTIDINE, 20 MG TAXOL, CARBO, MVASI, EMEND, ALOXI, DECADRON, SOLU MEDROL, BENADRYL, PEPCID Aviva Humphries MD [address] [facility] [address] [place] [address] [facility] 2nd Floor [place] [address] [place] [address] Referral ID Status Reason Start Date Expiration Date V isits Requested Visits Authorized [id number] Authorized 05/20/2023 05/26/2025 99 99 Encounter Details Date Type Department Care Team (Latest Contact Info) Description 02/18/2024 12:53 PM CDT - 02/18/2024 11:59 PM CDT Hospital Encounter [facility] 2nd Fl [address] [place] [address] Aviva Humphries MD [address] [place] [address] Discharge Disposition: Home or Self [...] Sign Reading Time Taken Comments Blood Pressure 145/81 02/18/2024 1:58 PM CDT Pulse 87 02/18/2024 1:58 PM CDT Temperature - - Respiratory Rate [...] bedtime. 02/26/2021 fluticasone propionate (FLONASE) 50 mcg/spray [place], Suspension nasal inhaler Administer 2 Sprays in each nostril daily. omega-3 fatty acids-fish oil 300-1,000 mg Capsule Take 2 Capsules by mouth daily. olaparib (Lynparza) 150 mg tablet take 2 tablets by mouth 2 times a day 120 Tablet 3 02/15/2024 05/12/2024 documented as of this encounter Progress Notes * Rebekah Longo RN - 02/18/2024 1:00 PM CDT Pt admitted to infusion [...] Pt verbalized understanding. Discharged home. Next appt 03/10. documented in this encounter Plan of Treatment Upcoming Encounters Date Type Department Care Team (Late st Contact Info) Description 08/04/2024 1:00 PM SOAP WORKER Appointment [facility] 2nd Fl [address] [place] [address] Aviva Humphries MD [address] [facility] [address] [place] [address] Infusion Chair 5, 2nd Floor [place] 08/25/2024 1:00 PM SOAP WORKER Office Visit [facility] Gynecologic Oncology Hall [address] [place] [address] Edilia Pettit, CHELY [address] [facility] [address] [place] [address] 08/25/2024 1:30 PM SOAP WORKER Appointment Randy Proctor [facility] Infusion Center [facility] [address] [place] [address] Aviva Humphries MD [address] [facility] [address] [place] [address] Infusion Chair 1, 2nd Floor [place] 09/01/2024 10:45 AM SOAP WORKER Appointment Randy Proctor [facility] Nuclear Medicine [address] [place] [address] [id number] Edilia Pettit, CHELY [address] [facility] [address] [place] [address] Scheduled Orders Name Type Priority Associated Diagnoses Orde r Schedule URINALYSIS WITH REFLEX CULTURE Lab Routine Malignant neoplasm of ovary, unspecified laterality Expected: 02/18/2024, Expires: 02/17/2025 documented as of this encounter Results * (ABNORMAL) URINALYSIS WITH REFLEX MICROSCOPIC (02/17/2024 1:26 PM CDT) COLOR UA Colorless(A ) Pale to Dark Yellow 02/17/2024 2:28 PM CDT [facility] SERVICES [facility] CLARITY UA Clear Clear 02/17/2024 2:28 PM CDT [facility] - [facility] SPECIFIC GRAVITY UA 1.003 1.003 - 1.035 02/17/2024 2:28 PM CDT [facility] PH UA 6.0 5.0 - 8.0 02/17/2024 2:28 PM CDT [facility] - [facility] LEUKOCYTE ESTERASE UA Negative Negative 02/17/2024 2:28 PM CDT [facility] - . [place] NITRITE UA Negative Negative 02/17/2024 2:28 PM CDT [facility] - [facility] PROTEIN UA Negative Negative 02/17/2024 2:28 PM CDT [facility] - . [place] GLUCOSE UA Negative Negative 02/17/2024 2:28 PM CDT [facility] - . [facility] KETONES UA Negative Negative 02/17/2024 2:28 PM CDT [facility] SERVICES - [facility] UROBILINOGEN UA Normal <2.0 mg/dL 2:28 PM CDT [facility] - [facility] BILIRUBIN UA Negative Negative 02/17/2024 2:28 PM CDT [facility] - [facility] BLOOD UA Negative Negative 02/17/2024 2:28 PM CDT [facility] - . [facility] Urine URINE SPECIMEN OBTAINED BY CLEAN CATCH PROCEDURE / Unknown Collection / Unknown 02/17/2024 1:26 PM CDT 02/17/2024 2:14 PM CDT Aviva Humphries MD URINE ORDERABLES [facility]# [id number] [address] [place], [place] [address] [facility] [place] [address] * CANCER ANTIGEN 125 (02/17/2024 1:26 PM CDT) CA 125 5 <35 U/mL [facility] Comment: This test was performed using the Siemens Chemiluminescent method. Values obtained from different assay methods cannot be used interchangeably. CA 125 levels, regardless of value, should not be interpreted as absolute evidence of the presence or absence of disease. Test Performed at: [facility] [address] ??[id number] Radha Perez MD Blood 02/17/2024 1:26 PM CDT 02/17/2024 1:56 PM CDT Aviva Humphries MD CHEMISTRY ORDERABLES [facility] [phone] [facility] [id number] [place] [address] * (ABNORMAL) COMPREHENSIVE METABOLIC PANEL (02/17/2024 1:26 PM CDT) SODIUM 143 136 - 145 mmol/L 02/17/2024 2:35 PM CDT [facility] - . [place] POTASSIUM 4.0 3.5 - 5.0 mmol/L 02/17/2024 2:35 PM CDT [facility] CHLORIDE 106 98 - 107 mmol/L 02/17/2024 2:35 PM CDT [facility] CO2 26 22 - 29 mmol/L 02/17/2024 2:35 PM CDT [facility] CALCIUM 9.4 8.6 - 10.2 mg/dL 02/17/2024 2:35 PM CDT [facility] BUN 8 8 - 23 mg/dL 02/17/2024 2:35 PM CDT [facility] CREATININE 1.01(H) 0.51 - 0.95 mg/dL 02/17/2024 2:35 PM CDT [facility] GLUCOSE 73(L) 74 - 99 mg/dL 02/17/2024 2:35 PM CDT [facility] TOTAL PROTEIN 7.1 6.7 - 8.6 g/dL 02/17/2024 2:35 PM CDT [facility] ALBUMIN 4.2 3.5 - 5.2 g/dL 02/17/2024 2:35 PM CDT [facility] BILIRUBIN TOTAL 0.4 0.2 - 1.1 mg/dL 02/17/2024 2:35 PM CDT [facility] ALKALINE PHOSPHATASE 83 35 - 104 U/L 02/17/2024 2:35 PM CDT [facility] AST 31 <33 U/L 02/17/2024 2:35 PM CDT [facility] ALT 34(H) <34 U/L 02/17/2024 2:35 PM CDT [facility] GFR >60 >=60 mL/min/1.7 3 sq meter 02/17/2024 2:35 PM CDT [facility] Comment:eGFR calculated with 2020 CKD-EPI equation. Vegetarian diet, extremely high or low muscle mass, and may affect results. Cystatin C with Glomerular Filtration Rate is a suitable alternative for these patients. ANION GAP 11 8 - 16 mmol/L 02/17/2024 2:35 PM T [facility] Blood Collection / Unknown 02/17/2024 1:26 PM CDT 02/17/2024 1:52 PM CDT [facility] - 02/17/2024 2:35 PM CDT Samples containing indocyanine green cause interferences on Total and/or Direct Bilirubin and must not be measured. Aviva Humphries MD CHEMISTRY ORDERABLES [facility]# [id number] [address] [place] [id number] * (ABNORMAL) CBC WITH DIFFERENTIAL (02/17/2024 1:26 PM CDT) [facility] WBC 4.1 4.0 - 9.8 K/uL 02/17/2024 1:55 PM CDT [facility] NRBCS 1 % 02/17/2024 1:55 PM CDT [facility] RBC 2.94(L) 3.90 - 4.90 M/uL 02/17/2024 1:55 PM CDT [facility] HEMOGLOBIN 10.9(L) 11.8 - 14.8 g/dL 02/17/2024 1:55 PM CDT [facility] HEMATOCRIT 32.3(L) 35.5 - 44.0 % 02/17/2024 1:55 PM CDT [facility] MCV 109.9(H) 82.0 - 99.0 fL 02/17/2024 1:55 PM CDT [facility] MCH 37.1(H) 27.2 - 32.6 pg 02/17/2024 1:55 PM CDT [facility] MCHC 33.7 31.5 - 35.5 g/dL 02/17/2024 1:55 PM CDT [facility] RDW 20.3(H) 11.5 - 14.5 % 02/17/2024 1:55 PM CDT [facility] RDW-STDEV 82.4(H) 37.1 - 48.7 fL 02/17/2024 1:55 PM CDT [facility] PLATELETS 180 140 - 350 K/uL 02/17/2024 1:55 PM CDT [facility] MPV 10.7 9.3 - 12.4 fL 02/17/2024 1:55 PM CDT [facility] NEUTROPHILS 56 % 02/17/2024 1:55 PM CDT [facility] LYMPHOCYTES 36 % 02/17/2024 1:55 PM CDT [facility] MONOCYTES 6 % 02/17/2024 1:55 PM CDT [facility] EOSINOPHILS 1 % 02/17/2024 1:55 PM CDT [facility] BASOPHILS 1 % 02/17/2024 1:55 PM CDT [facility] IMMATURE GRANULOCYTES 0 % 02/17/2024 1:55 PM CDT [facility] NEUTROPHIL ABSOLUTE 2.28 1.90 - 7.00 K/uL 02/17/2024 1:55 PM CDT [facility] . [facility] LYMPHOCYTE ABSOLUTE 1.48 0.70 - 4.50 K/uL 02/17/2024 1:55 PM CDT [facility] . [facility] MONOCYTE ABSOLUTE 0.23 0.10 - 1.30 K/uL 02/17/2024 1:55 PM CDT [facility] . [facility] EOSINOPHIL ABSOLUTE 0.05 0.00 - 0.70 K/uL 02/17/2024 1:55 PM CDT [facility] BASOPHILS ABSOLUTE 0.02 0.00 - 0.20 K/uL 02/17/2024 1:55 PM CDT [facility] - [facility] IMMATURE GRANULOCYTES ABSOLUTE 0.01 0.00 - 0.03 K/uL 02/17/2024 1:55 PM CDT [facility] Blood Collection / Unknown 02/17/2024 1:26 PM CDT 02/17/2024 1:50 PM CDT Aviva Humphries MD HEMATOLOGY ORDERABLE S [facility] - [facility] CLIA# [id number] [address] [place] [address] documented in this encounter Visit Diagnoses Diagnosis [...] ONE TIME ONLY, 1 dose, On Peace 02/18/24 at 1345, Routine Rate Verify 02/18/2024 2:39 PM CDT 291.8 mL/hr New Bag 02/18/2024 2:39 PM CDT 773 mg 291.8 mL/hr sodium chloride 0.9% infusion IV, at 30-999 mL/hr, CONTINUOUS, Starting on Thu02/18/24 at 1345, Until Thu02/19/24 at 0305, Routine Rate Change 02/18/2024 3:09 PM CDT 300 mL/hr New Bag 02/18/2024 2:01 PM CDT 30 mL/hr 30 mL/hr documented in this encounter Care Teams Associate Professor Of Communication Relationship Specialty Start Date End Date Shilo Soares MD [address] [place] [address] PCP - General Internal Medicine 04/24/23 documented as of this encounter
--- OUTSIDE RECORDS SUMMARY | 2024-07-26 23:49 | XMS_ITS | Encounter Summary ---
Author Organization [facility] Address [address] [place] [address] Care Team Providers Care Rod Puller And Coiler Name Role Phone Shilo Soares MD Primary Care Provider [phone] Encounter Details Date Type Department Care Team (Late Contact Info) Description 02/07/2024 External Device Data STL ABSTRACTION Provider, Abstract [...] (Late Contact Info) Description 08/04/2024 1:00 PM LABOR UTILIZATION SUPERINTENDENT Appointment [facility] 2nd Ar [address] [place] [address] Aviva Humphries MD [address] [place] [address] Infusion Chair 5, 2nd Floor Hall 08/25/2024 1:00 PM LABOR UTILIZATION SUPERINTENDENT Office Visit [facility] Gynecologic Oncology Hall [address] [place] [address] Edilia Pettit, CHELY [address] [place] [address] 08/25/2024 1:30 PM LABOR UTILIZATION SUPERINTENDENT Appointment [facility] 2nd Fl [address] [place] [address] Aviva Humphries MD [address] [place] [address] Infusion Chair 1, 2nd Floor [place] 09/01/2024 10:45 AM LABOR UTILIZATION SUPERINTENDENT Appointment [facility] Nuclear Medicine [address] [place] [address] [id number] Edilia Pettit, CHELY [address] [facility] [address] [place] [address] documented as of this encounter Visit Diagnoses Not on filedocumented in this encounter Care Teams Rod Puller And Coiler Relationship Specialty Start Date End Date Shilo Soares MD [address] [place] [address] PCP - General Internal Medicine 04/24/23 documented as of this encounter
--- OUTSIDE RECORDS SUMMARY | 2024-07-26 23:49 | XMS_ITS | Encounter Summary ---
Author Organization [facility] Address [address] [place] [address] Care Team Providers Care Overweaver Name Role Phone Shilo Soares MD Primary Care Provider [phone] Encounter Details Date Type Department Care Team (Late Contact Info) Description 02/11/2024 External Device Data STL ABSTRACTION Provider, Abstract [...] (Late Contact Info) Description 08/04/2024 1:00 PM EGG WORKER Appointment [facility] [address] [place] [address] Aviva Humphries MD [address] [place] [address] Infusion Chair 5, 2nd Floor [place] 08/25/2024 1:00 PM EGG WORKER Office Visit [facility] Gynecologic Oncology Hall [address] [place] [address] Edilia Pettit, CHELY [address] [place] [address] 08/25/2024 1:30 PM EGG WORKER Appointment [facility] 2nd Fl [address] [place] [address] Aviva Humphries MD [address] [place] [address] Infusion Chair 1, 2nd Floor [place] 09/01/2024 10:45 AM EGG WORKER Appointment [facility] Nuclear Medicine [address] [place] [address] [id number] Edilia Pettit, CHELY [address] [facility] [address] [place] [address] documented as of this encounter Visit Diagnoses Not on filedocumented in this encounter Care Teams Overweaver Relationship Specialty Start Date End Date Shilo Soares MD [address] [place] [address] PCP - General Internal Medicine 04/24/23 documented as of this encounter
--- OUTSIDE RECORDS SUMMARY | 2024-07-26 23:49 | XMS_ITS | Encounter Summary ---
Author Organization [facility] Address [address] [place] [address] Care Team Providers Care Inspector Bicycle Name Role Phone Shilo Soares MD Primary Care Provider [phone] Encounter Details Date Type Department Care Team [...] (Late Contact Info) Description 08/04/2024 1:00 PM WELDER GAS Appointment [facility] 2[facility] [address] [place] [address] Aviva Humphries MD [address] [place] [address] Infusion Chair 5, 2nd Floor Hall 08/25/2024 1:00 PM WELDER GAS Office Visit [facility] Gynecologic Oncology Hall [address] [place] [address] Edilia Pettit, CHELY [address] [facility] [address] [place] [address] 08/25/2024 1:30 PM WELDER GAS Appointment [facility] 2nd Fl [address] [place] [address] Aviva Humphries MD [address] [place] [address] Infusion Chair 1, 2nd Floor [place] 09/01/2024 10:45 AM WELDER GAS Appointment [facility] Nuclear Medicine [address] [place] [address] [id number] Edilia Pettit, CHELY [address] [facility] [address] [place] [address] documented as of this encounter Visit Diagnoses Not on filedocumented in this encounter Care Teams Inspector Bicycle Relationship Specialty Start Date End Date Shilo Soares MD [address] [place] [address] PCP - General Internal Medicine 04/24/23 documented as of this encounter
--- OUTSIDE RECORDS SUMMARY | 2024-07-26 23:49 | XMS_ITS | Encounter Summary ---
Author Organization [facility] Address [address] [place] [address] Care Team Providers Care Coordinator Skill Training Program Name Role Phone Shilo Soares MD Primary Care Provider [phone] Encounter Details Date Type Department Care Team (Late Contact Info) Description 02/15/2024 External Device Data STL ABSTRACTION Provider, Abstract [...] (Late Contact Info) Description 08/04/2024 1:00 PM CENTER SPECIALISTS Appointment [facility] 2[facility] De [address] [place] [address] Aviva Humphries MD [address] [place] [address] Infusion Chair 5, 2nd Floor Hall 08/25/2024 1:00 PM CENTER SPECIALISTS Office Visit [facility] Gynecologic Oncology Hall [address] [place] [address] Edilia Pettit, CHELY [address] [facility] [facility] [address] [place] [address] 08/25/2024 1:30 PM CENTER SPECIALISTS Appointment [facility] 2nd Fl [address] [place] [address] Aviva Humphries MD [address] [place] [address] Infusion Chair 1, 2nd Floor [place] 09/01/2024 10:45 AM CENTER SPECIALISTS Appointment [facility] Nuclear Medicine [address] [place] [address] [id number] Edilia Pettit, CHELY [address] [facility] [address] [place] [address] documented as of this encounter Visit Diagnoses Not on filedocumented in this encounter Care Teams Coordinator Skill Training Program Relationship Specialty Start Date End Date Shilo Soares MD [address] [place] [address] PCP - General Internal Medicine 04/24/23 documented as of this encounter
--- OUTSIDE RECORDS SUMMARY | 2024-07-26 23:49 | XMS_ITS | Encounter Summary ---
Author Organization [facility] Address [address] [place] [address] Care Team Providers Care Needle Punch Machine Operator Name Role Phone Shilo Soares MD Primary Care Provider [phone] Encounter Details Date Type Department Care Team (Late Contact Info) Description 02/08/2024 External Device Data STL ABSTRACTION Provider, Abstract [...] (Late Contact Info) Description 08/04/2024 1:00 PM DANCING TEACHER Appointment [facility] Sc [address] [place] [address] Aviva Humphries MD [address] [place] [address] Infusion Chair 5, 2nd Floor Hall 08/25/2024 1:00 PM DANCING TEACHER Office Visit [facility] Gynecologic Oncology Hall [address] [place] [address] Edilia Pettit, CHELY [address] [facility] [address] [place] [address] 08/25/2024 1:30 PM DANCING TEACHER Appointment [facility] 2nd Fl [address] [place] [address] Aviva Humphries MD [address] [place] [address] Infusion Chair 1, 2nd Floor [place] 09/01/2024 10:45 AM DANCING TEACHER Appointment [facility] Nuclear Medicine [address] [place] [address] [id number] Edilia Pettit, CHELY [address] [facility] [address] [place] [address] documented as of this encounter Visit Diagnoses Not on filedocumented in this encounter Care Teams Needle Punch Machine Operator Relationship Specialty Start Date End Date Shilo Soares MD [address] [place] [address] PCP - General Internal Medicine 04/24/23 documented as of this encounter
--- OUTSIDE RECORDS SUMMARY | 2024-07-26 23:49 | XMS_ITS | Encounter Summary ---
Author Organization [facility] Address [address] [place] [address] Care Team Providers Care Resource Manager Name Role Phone Sihlo Soares MD Primary Care Provider [phone] Encounter Details Date Type Department Care Team [...] Contact Info) Description 08/04/2024 1:00 PM SURGICAL GARMENT INSPECTOR Appointment [facility] 2nd [facility] [address] [place] [address] Aviva Humphries MD [address] [place] [address] Infusion Chair 5, 2nd Floor [place] 08/25/2024 1:00 PM SURGICAL GARMENT INSPECTOR Office Visit [facility] Gynecologic Oncology Hall [address] [place] [address] Edilia Pettit, CHELY [address] [facility] [facility] [facility] [address] [place] [address] 08/25/2024 1:30 PM SURGICAL GARMENT INSPECTOR Appointment [facility] 2nd Fl [address] [place] [address] Aviva Humphries MD [address] [facility] [address] [place] [address] Infusion Chair 1, 2nd Floor [place] 09/01/2024 10:45 AM SURGICAL GARMENT INSPECTOR Appointment [facility] Nuclear Medicine [address] [place] [address] [id number] Edilia Pettit, CHELY [address] [facility] [address] [place] [address] documented as of this encounter Visit Diagnoses Not on filedocumented in this encounter Care Teams Resource Manager Relationship Specialty Start Date End Date Shilo Soares MD [address] [place] [address] PCP - General Internal Medicine 04/24/23 documented as of this encounter
--- OUTSIDE RECORDS SUMMARY | 2024-07-26 23:49 | XMS_ITS | Encounter Summary ---
Author Organization [facility] Address [address] [place] [address] Care Team Providers Care Ornament Setter Name Role Phone Shilo Soares MD Primary Care Provider [phone] Encounter Details Date Type Department Care Team [...] (Late Contact Info) Description 08/04/2024 1:00 PM CLINICAL PRODUCT MANAGER Appointment [facility] 2nd Sd [address] [place] [address] Aviva Humphries MD [address] [place] [address] Infusion Chair 5, 2nd Floor [place] 08/25/2024 1:00 PM CLINICAL PRODUCT MANAGER Office Visit [facility] Gynecologic Oncology Hall [address] [place] [address] Edilia Pettit, CHELY [address] [address] [place] [address] 08/25/2024 1:30 PM CLINICAL PRODUCT MANAGER Appointment [facility] 2nd Fl [address] [place] [address] Aviva Humphries MD [address] [facility] [address] [place] [address] Infusion Chair 1, 2nd Floor [place] 09/01/2024 10:45 AM CLINICAL PRODUCT MANAGER Appointment [facility] Nuclear Medicine [address] [place] [address] [id number] Edilia Pettit, CHELY [address] [facility] [address] [place] [address] documented as of this encounter Visit Diagnoses Not on filedocumented in this encounter Care Teams Ornament Setter Relationship Specialty Start Date End Date Shilo Soares MD [address] [place] [address] PCP - General Internal Medicine 04/24/23 documented as of this encounter
--- OUTSIDE RECORDS SUMMARY | 2024-07-26 23:49 | XMS_ITS | Encounter Summary ---
Author Organization [facility] Address [address] [place] [address] Care Team Providers Care Renal Social Worker Name Role Phone Shilo Soares MD Primary Care Provider [phone] Encounter Details Date Type Department Care Team [...] (Late Contact Info) Description 08/04/2024 1:00 PM DOLL MAKER Appointment [facility] 2nd [facility] [address] [place] [address] Aviva Humphries MD [address] [place] [address] Infusion Chair 5, 2nd Floor [place] 08/25/2024 1:00 PM DOLL MAKER Office Visit [facility] Gynecologic Oncology Hall [address] [place] [address] Edilia Pettit, CHELY [address] [facility] [address] [place] [address] 08/25/2024 1:30 PM DOLL MAKER Appointment [facility] 2nd Fl [address] [place] [address] Aviva Humphries MD [address] [facility] [address] [facility] [address] [place] [address] Infusion Chair 1, 2nd Floor [place] 09/01/2024 10:45 AM DOLL MAKER Appointment [facility] Nuclear Medicine [address] [place] [address] [id number] Edilia Pettit, CHELY [address] [facility] [address] [place] [address] documented as of this encounter Visit Diagnoses Not on filedocumented in this encounter Care Teams Renal Social Worker Relationship Specialty Start Date End Date Shilo Soares MD [address] [place] [address] PCP - General Internal Medicine 04/24/23 documented as of this encounter
--- OUTSIDE RECORDS SUMMARY | 2024-07-26 23:49 | XMS_ITS | Encounter Summary ---
Author Organization [facility] Address [address] [place] [address] Care Team Providers Care Plate Mill Hand Name Role Phone Shilo Soares MD Primary Care Provider [phone] Reason for Visit * Reason Onset Date Comments Case Management 02/19/2024 Farrah Hitchcock ( piano case maker) from [employer] called on behalf of pt in case there were any gaps of care to inform that she is here if we need anything from her Encounter Details Date Type Department Care Team (Late st Contact Info) Description 02/19/2024 Telephone [facility] Gynecologic Oncology Hall [address] [place] [address] Aviva Humphries MD [address] [place] [address] Case Management (Farrah Hitchcock (piano case maker) from [employer] [facility] called on behalf of pt in case there were any gaps of care to inform that she is here if we need anything from her) Social History Tobacco Use Types Packs/Day Years [...] st Contact Info) Description 08/04/2024 1:00 PM ORDER BUILDER Appointment [facility] Infusion Center [facility] [address] [place] [address] Aviva Humphries MD [address] [facility] [address] [place] [address] Infusion Chair 5, 2nd Floor [place] 08/25/2024 1:00 PM ORDER BUILDER Office Visit [facility] Gynecologic Oncology [place] [address] [address] Edilia Pettit, CHELY [address] [address] 08/25/2024 1:30 PM ORDER BUILDER Appointment Randy [facility] 2nd [place] [address] [place] [address] Aviva Humphries MD [address] [facility] [address] [facility] [place] [facility] [place] [address] Infusion Chair 1, 2nd Floor [place] 09/01/2024 10:45 AM ORDER BUILDER Appointment [facility] Nuclear Medicine [address] [place] [address] [id number] Edilia Pettit, CHELY [address] [address] documented as of this encounter Visit Diagnoses Not on filedocumented in this encounter Care Teams Plate Mill Hand Relationship Specialty Start Date End Date Shilo Soares MD [address] [place] [address] PCP - General Internal Medicine 04/24/23 documented as of this encounter
--- OUTSIDE RECORDS SUMMARY | 2024-07-26 23:49 | XMS_ITS | Encounter Summary ---
Author Organization [facility] Address [address] [place] [address] Care Team Providers Care Post Closing Specialist Name Role Phone Shilo Soares MD Primary Care Provider [phone] Encounter Details Date Type Department Care Team [...] Contact Info) Description 08/04/2024 1:00 PM FURNACE PROCESS SUPERVISOR Appointment [facility] 2nd Nd [address] [place] [address] Aviva Humphries MD [address] [place] [address] Infusion Chair 5, 2nd Floor [place] 08/25/2024 1:00 PM FURNACE PROCESS SUPERVISOR Office Visit [facility] [place] Gynecologic Oncology Hall [address] [place] [address] Edilia Pettit, CHELY [address] [facility] [facility] [address] [place] [address] 08/25/2024 1:30 PM FURNACE PROCESS SUPERVISOR Appointment [facility] 2nd Fl [address] [place] [address] Aviva Humphries MD [address] [facility] [address] [place] [address] Infusion Chair 1, 2nd Floor [place] 09/01/2024 10:45 AM FURNACE PROCESS SUPERVISOR Appointment [facility] Nuclear Medicine [address] [place] [address] [id number] Edilia Pettit, CHELY [address] [facility] [address] [place] [address] documented as of this encounter Visit Diagnoses Not on filedocumented in this encounter Care Teams Post Closing Specialist Relationship Specialty Start Date End Date Shilo Soares MD [address] [place] [address] PCP - General Internal Medicine 04/24/23 documented as of this encounter
--- OUTSIDE RECORDS SUMMARY | 2024-07-26 23:49 | XMS_ITS | Encounter Summary ---
Author Organization [facility] Address [address] [place] [address] Care Team Providers Care Purchase Analyst Name Role Phone Shilo Soares MD Primary Care Provider [phone] Encounter Details Date Type Department Care Team [...] (Late Contact Info) Description 08/04/2024 1:00 PM STEREOTYPER Appointment [facility] 2nd Ar [address] [place] [address] Aviva Humphries MD [address] [place] [address] Infusion Chair 5, 2nd Floor [place] 08/25/2024 1:00 PM STEREOTYPER Office Visit [facility] [place] Gynecologic Oncology Hall [address] [place] [address] Edilia Pettit, CHELY [address] [place] [address] 08/25/2024 1:30 PM STEREOTYPER Appointment [facility] 2nd Fl [address] [place] [address] Aviva Humphries MD [address] [facility] [address] [place] [address] Infusion Chair 1, 2nd Floor [place] 09/01/2024 10:45 AM STEREOTYPER Appointment [facility] Nuclear Medicine [address] [place] [address] [id number] Edilia Pettit, CHELY [address] [facility] [address] [place] [address] documented as of this encounter Visit Diagnoses Not on filedocumented in this encounter Care Teams Purchase Analyst Relationship Specialty Start Date End Date Shilo Soares MD [address] [place] [address] PCP - General Internal Medicine 04/24/23 documented as of this encounter
--- OUTSIDE RECORDS SUMMARY | 2024-07-26 23:49 | XMS_ITS | Encounter Summary ---
Author Organization [facility] Address [address] [place] [address] Care Team Providers Care Anime Artist Name Role Phone Shilo Soares MD Primary Care Provider [phone] Encounter Details Date Type Department Care Team [...] (Late Contact Info) Description 08/04/2024 1:00 PM SULFURIC ACID PLANT SUPERVISOR Appointment [facility] [address] [place] [address] Aviva Humphries MD [address] [place] [address] Infusion Chair 5, 2nd Floor [place] 08/25/2024 1:00 PM SULFURIC ACID PLANT SUPERVISOR Office Visit [facility] Gynecologic Oncology Hall [address] [place] [address] Edilia Pettit, CHELY [address] [address] [place] [address] 08/25/2024 1:30 PM SULFURIC ACID PLANT SUPERVISOR Appointment [facility] 2nd Fl [address] [place] [address] Aviva Humphries MD [address] [facility] [address] [place] [address] Infusion Chair 1, 2nd Floor [place] 09/01/2024 10:45 AM SULFURIC ACID PLANT SUPERVISOR Appointment Randy [facility] Nuclear Medicine [address] [place] [address] [id number] Edilia Pettit, CHELY [address] [facility] [address] [place] [address] documented as of this encounter Visit Diagnoses Not on filedocumented in this encounter Care Teams Anime Artist Relationship Specialty Start Date End Date Shilo Soares MD [address] [place] [address] PCP - General Internal Medicine 04/24/23 documented as of this encounter
--- OUTSIDE RECORDS SUMMARY | 2024-07-26 23:49 | XMS_ITS | Encounter Summary ---
Author Organization [facility] Address [address] [place] [address] Care Team Providers Care Straddle Truck Driver Name Role Phone Shilo Soares MD Primary Care Provider [phone] Encounter Details Date Type Department Care Team [...] Contact Info) Description 08/04/2024 1:00 PM DIRECTOR ELECTRICAL ENGINEERING Appointment [facility] 2nd Nh [address] [place] [address] Aviva Humphries MD [address] [place] [address] Infusion Chair 5, 2nd Floor [place] 08/25/2024 1:00 PM DIRECTOR ELECTRICAL ENGINEERING Office Visit [facility] Gynecologic Oncology Hall [address] [place] [address] Edilia Pettit, CHELY [address] [facility] [address] [place] [address] 08/25/2024 1:30 PM DIRECTOR ELECTRICAL ENGINEERING Appointment [facility] 2nd Fl [address] [place] [address] Aviva Humphries MD [address] [place] [address] Infusion Chair 1, 2nd Floor [place] 09/01/2024 10:45 AM DIRECTOR ELECTRICAL ENGINEERING Appointment [facility] Nuclear Medicine [address] [place] [address] [id number] Edilia Pettit, CHELY [address] [facility] [address] [place] [address] documented as of this encounter Visit Diagnoses Not on filedocumented in this encounter Care Teams Straddle Truck Driver Relationship Specialty Start Date End Date Shilo Soares MD [address] [place] [address] PCP - General Internal Medicine 04/24/23 documented as of this encounter
--- OUTSIDE RECORDS SUMMARY | 2024-07-26 23:49 | XMS_ITS | Encounter Summary ---
Author Organization [facility] Address [address] [place] [address] Care Team Providers Care Joinery Patternmaker Name Role Phone Shilo Soares MD Primary Care Provider [phone] Encounter Details Date Type Department Care Team [...] Contact Info) Description 08/04/2024 1:00 PM REIMBURSEMENT CONSULTANT Appointment [facility] 2nd Pr [address] [place] [address] Aviva Humphries MD [address] [place] [address] Infusion Chair 5, 2nd Floor [place] 08/25/2024 1:00 PM REIMBURSEMENT CONSULTANT Office Visit [facility] Gynecologic Oncology Hall [address] [place] [address] Edilia Pettit, CHELY [address] [address] [place] [address] 08/25/2024 1:30 PM REIMBURSEMENT CONSULTANT Appointment [facility] 2nd Fl [address] [place] [address] Aviva Humphries MD [address] [facility] [address] [facility] [address] [place] [address] Infusion Chair 1, 2nd Floor [place] 09/01/2024 10:45 AM REIMBURSEMENT CONSULTANT Appointment Randy [facility] Nuclear Medicine [address] [place] [address] [id number] Edilia Pettit, CHELY [address] [facility] [address] [place] [address] documented as of this encounter Visit Diagnoses Not on filedocumented in this encounter Care Teams Joinery Patternmaker Relationship Specialty Start Date End Date Shilo Soares MD [address] [place] [address] PCP - General Internal Medicine 04/24/23 documented as of this encounter
--- OUTSIDE RECORDS SUMMARY | 2024-07-26 23:49 | XMS_ITS | Encounter Summary ---
Author Organization [facility] Address [address] [place] [address] Care Team Providers Care Director Of Media Name Role Phone Shilo Soares MD Primary Care Provider [phone] Encounter Details Date Type Department Care Team [...] (Late Contact Info) Description 08/04/2024 1:00 PM TELERADIOLOGIST Appointment [facility] [address] [place] [address] Aviva Humphries MD [address] [place] [address] Infusion Chair 5, 2nd Floor Hall 08/25/2024 1:00 PM TELERADIOLOGIST Office Visit [facility] Gynecologic Oncology Hall [address] [place] [address] Edilia Pettit, CHELY [address] [place] [address] 08/25/2024 1:30 PM TELERADIOLOGIST Appointment [facility] 2nd Fl [address] [place] [address] Aviva Humphries MD [address] [place] [address] Infusion Chair 1, 2nd Floor [place] 09/01/2024 10:45 AM TELERADIOLOGIST Appointment [facility] Nuclear Medicine [address] [place] [address] [id number] Edilia Pettit, CHELY [address] [facility] [address] [place] [address] documented as of this encounter Visit Diagnoses Not on filedocumented in this encounter Care Teams Director Of Media Relationship Specialty Start Date End Date Shilo Soares MD [address] [place] [address] PCP - General Internal Medicine 04/24/23 documented as of this encounter
--- OUTSIDE RECORDS SUMMARY | 2024-07-26 23:49 | XMS_ITS | Encounter Summary ---
Author Organization [facility] Address [address] [place] [address] Care Team Providers Care Terra Cotta Mason Name Role Phone Shilo Soares MD Primary Care Provider [phone] Encounter Details Date Type Department Care Team [...] Contact Info) Description 08/04/2024 1:00 PM TEACHER INDUSTRIAL ARTS Appointment [facility] [address] [place] [address] Aviva Humphries MD [address] [place] [address] Infusion Chair 5, 2nd Floor Hall 08/25/2024 1:00 PM TEACHER INDUSTRIAL ARTS Office Visit [facility] Gynecologic Oncology Hall [address] [place] [address] Edilia Pettit, CHELY [address] [facility] [address] [place] [address] 08/25/2024 1:30 PM TEACHER INDUSTRIAL ARTS Appointment [facility] 2nd Fl [address] [place] [address] Aviva Humphries MD [address] [place] [address] Infusion Chair 1, 2nd Floor [place] 09/01/2024 10:45 AM TEACHER INDUSTRIAL ARTS Appointment [facility] Nuclear Medicine [address] [place] [address] [id number] Edilia Pettit, CHELY [address] [facility] [address] [place] [address] documented as of this encounter Visit Diagnoses Not on filedocumented in this encounter Care Teams Terra Cotta Mason Relationship Specialty Start Date End Date Shilo Soares MD [address] [place] [address] PCP - General Internal Medicine 04/24/23 documented as of this encounter
--- OUTSIDE RECORDS SUMMARY | 2024-07-26 23:49 | XMS_ITS | Encounter Summary ---
Author Organization [facility] Address [address] [place] [address] Care Team Providers Care Hvac Mechanic Name Role Phone Shilo Soares MD Primary Care Provider [phone] Encounter Details Date Type Department Care Team [...] Contact Info) Description 08/04/2024 1:00 PM SENIOR APPLICATIONS ENGINEER Appointment [facility] [address] [place] [address] Aviva Humphries MD [address] [place] [address] Infusion Chair 5, 2nd Floor Hall 08/25/2024 1:00 PM SENIOR APPLICATIONS ENGINEER Office Visit [facility] Gynecologic Oncology Hall [address] [place] [address] Edilia Pettit, CHELY [address] [facility] [address] [place] [address] 08/25/2024 1:30 PM SENIOR APPLICATIONS ENGINEER Appointment [facility] 2nd Fl [address] [place] [address] Aviva Humphries MD [address] [place] [address] Infusion Chair 1, 2nd Floor [place] 09/01/2024 10:45 AM SENIOR APPLICATIONS ENGINEER Appointment [facility] Nuclear Medicine [address] [place] [address] [id number] Edilia Pettit, CHELY [address] [facility] [address] [place] [address] documented as of this encounter Visit Diagnoses Not on filedocumented in this encounter Care Teams Hvac Mechanic Relationship Specialty Start Date End Date Shilo Soares MD [address] [place] [address] PCP - General Internal Medicine 04/24/23 documented as of this encounter
--- OUTSIDE RECORDS SUMMARY | 2024-07-26 23:49 | XMS_ITS | Encounter Summary ---
Author Organization [facility] Address [address] [place] [address] Care Team Providers Care Patrol Community Service Officer Name Role Phone Shilo Soares MD Primary Care Provider [phone] Encounter Details Date Type Department Care Team [...] Contact Info) Description 08/04/2024 1:00 PM FOUNDRY ENGINEER Appointment [facility] 2[facility] Vt [address] [place] [address] Aviva Humphries MD [address] [place] [address] Infusion Chair 5, 2nd Floor Hall 08/25/2024 1:00 PM FOUNDRY ENGINEER Office Visit [facility] Gynecologic Oncology Hall [address] [place] [address] Edilia Pettit, CHELY [address] [facility] [address] [place] [address] 08/25/2024 1:30 PM FOUNDRY ENGINEER Appointment [facility] 2nd Fl [address] [place] [address] Aviva Humphries MD [address] [place] [address] Infusion Chair 1, 2nd Floor [place] 09/01/2024 10:45 AM FOUNDRY ENGINEER Appointment [facility] Nuclear Medicine [address] [place] [address] [id number] Edilia Pettit, CHELY [address] [facility] [address] [place] [address] documented as of this encounter Visit Diagnoses Not on filedocumented in this encounter Care Teams Patrol Community Service Officer Relationship Specialty Start Date End Date Shilo Soares MD [address] [place] [address] PCP - General Internal Medicine 04/24/23 documented as of this encounter
--- OUTSIDE RECORDS SUMMARY | 2024-07-26 23:49 | XMS_ITS | Encounter Summary ---
Author Organization [facility] Address [address] [place] [address] Care Team Providers Care Track Moving Machine Operator Name Role Phone Shilo Soares MD Primary Care Provider [phone] Encounter Details Date Type Department Care Team (Late Contact Info) Description 02/17/2024 External Device Data STL ABSTRACTION Provider, Abstract [...] (Late Contact Info) Description 08/04/2024 1:00 PM CONFERENCE SPECIALIST Appointment [facility] [place] [address] [place] [address] Aviva Humphries MD [address] [place] [address] Infusion Chair 5, 2nd Floor Hall 08/25/2024 1:00 PM CONFERENCE SPECIALIST Office Visit [facility] Gynecologic Oncology Hall [address] [place] [address] Edilia Pettit, CHELY [address] [address] [place] [address] 08/25/2024 1:30 PM CONFERENCE SPECIALIST Appointment [facility] 2nd Fl [address] [place] [address] Aviva Humphries MD [address] [place] [address] Infusion Chair 1, 2nd Floor [place] 09/01/2024 10:45 AM CONFERENCE SPECIALIST Appointment [facility] Nuclear Medicine [address] [place] [address] [id number] Edilia Pettit, CHELY [address] [facility] [address] [place] [address] documented as of this encounter Visit Diagnoses Not on filedocumented in this encounter Care Teams Track Moving Machine Operator Relationship Specialty Start Date End Date Shilo Soares MD [address] [place] [address] PCP - General Internal Medicine 04/24/23 documented as of this encounter
--- OUTSIDE RECORDS SUMMARY | 2024-07-26 23:49 | XMS_ITS | Encounter Summary ---
Author Organization [facility] Address [address] [place] [address] Care Team Providers Care Electrical Engineering Intern Name Role Phone Shilo Soares MD Primary Care Provider [phone] Encounter Details Date Type Department Care Team [...] (Late Contact Info) Description 08/04/2024 1:00 PM TELEPHONY ENGINEER Appointment [facility] [place] [address] [place] [address] Aviva Humphries MD [address] [place] [address] Infusion Chair 5, 2nd Floor Hall 08/25/2024 1:00 PM TELEPHONY ENGINEER Office Visit [facility] Gynecologic Oncology Hall [address] [place] [address] Edilia Pettit, CHELY [address] [address] [place] [address] 08/25/2024 1:30 PM TELEPHONY ENGINEER Appointment [facility] 2nd Fl [address] [place] [address] Aviva Humphries MD [address] [place] [address] Infusion Chair 1, 2nd Floor [place] 09/01/2024 10:45 AM TELEPHONY ENGINEER Appointment [facility] Nuclear Medicine [address] [place] [address] [id number] Edilia Pettit, CHELY [address] [facility] [address] [place] [address] documented as of this encounter Visit Diagnoses Not on filedocumented in this encounter Care Teams Electrical Engineering Intern Relationship Specialty Start Date End Date Shilo Soares MD [address] [place] [address] PCP - General Internal Medicine 04/24/23 documented as of this encounter
--- OUTSIDE RECORDS SUMMARY | 2024-07-26 23:49 | XMS_ITS | Encounter Summary ---
Author Organization [facility] Address [address] [place] [address] Care Team Providers Care Bakery Decorator Name Role Phone Shilo Soares MD Primary Care Provider [phone] Encounter Details Date Type Department Care Team [...] (Late Contact Info) Description 08/04/2024 1:00 PM RECREATION SUPERVISOR Appointment [facility] 2nd Ne [address] [place] [address] Aviva Humphries MD [address] [place] [address] Infusion Chair 5, 2nd Floor Hall 08/25/2024 1:00 PM RECREATION SUPERVISOR Office Visit [facility] Gynecologic Oncology Hall [address] [place] [address] Edilia Pettit, CHELY [address] [address] [place] [address] 08/25/2024 1:30 PM RECREATION SUPERVISOR Appointment [facility] 2nd Fl [address] [place] [address] Aviva Humphries MD [address] [facility] [place] [address] Infusion Chair 1, 2nd Floor [place] 09/01/2024 10:45 AM RECREATION SUPERVISOR Appointment [facility] Nuclear Medicine [address] [place] [address] [id number] Edilia Pettit, CHELY [address] [facility] [address] [place] [address] documented as of this encounter Visit Diagnoses Not on filedocumented in this encounter Care Teams Bakery Decorator Relationship Specialty Start Date End Date Shilo Soares MD [address] [place] [address] PCP - General Internal Medicine 04/24/23 documented as of this encounter
--- OUTSIDE RECORDS SUMMARY | 2024-07-26 23:49 | XMS_ITS | Encounter Summary ---
Author Organization [facility] Address [address] [place] [address] Care Team Providers Care Payroll Accounting Clerk Name Role Phone Shilo Soares MD Primary Care Provider [phone] Encounter Details Date Type Department Care Team [...] (Late Contact Info) Description 08/04/2024 1:00 PM PACKAGING ASSOCIATE Appointment [facility] [place] [address] [place] [address] Aviva Humphries MD [address] [place] [address] Infusion Chair 5, 2nd Floor Hall 08/25/2024 1:00 PM PACKAGING ASSOCIATE Office Visit [facility] Gynecologic Oncology Hall [address] [place] [address] Edilia Pettit, CHELY [address] [facility] [address] [place] [address] 08/25/2024 1:30 PM PACKAGING ASSOCIATE Appointment [facility] 2nd Fl [address] [place] [address] Aviva Humphries MD [address] [facility] [address] [place] [address] Infusion Chair 1, 2nd Floor [place] 09/01/2024 10:45 AM PACKAGING ASSOCIATE Appointment [facility] Nuclear Medicine [address] [place] [address] [id number] Edilia Pettit, CHELY [address] [facility] [address] [place] [address] documented as of this encounter Visit Diagnoses Not on filedocumented in this encounter Care Teams Payroll Accounting Clerk Relationship Specialty Start Date End Date Shilo Soares MD [address] [place] [address] PCP - General Internal Medicine 04/24/23 documented as of this encounter
--- OUTSIDE RECORDS SUMMARY | 2024-07-26 23:49 | XMS_ITS | Encounter Summary ---
Author Organization [facility] Address [address] [place] [address] Care Team Providers Care Foil Cutter Name Role Phone Shilo Soares MD Primary Care Provider [phone] Encounter Details Date Type Department Care Team [...] (Late Contact Info) Description 08/04/2024 1:00 PM PERSONAL COMPUTER SPECIALIST Appointment [facility] [address] [place] [address] Aviva Humphries MD [address] [place] [address] Infusion Chair 5, 2nd Floor [place] 08/25/2024 1:00 PM PERSONAL COMPUTER SPECIALIST Office Visit [facility] Gynecologic Oncology Hall [address] [place] [address] Edilia Pettit, CHELY [address] [address] [place] [address] 08/25/2024 1:30 PM PERSONAL COMPUTER SPECIALIST Appointment [facility] 2nd Fl [address] [place] [address] Aviva Humphries MD [address] [place] [address] Infusion Chair 1, 2nd Floor [place] 09/01/2024 10:45 AM PERSONAL COMPUTER SPECIALIST Appointment [facility] Nuclear Medicine [address] [place] [address] [id number] Edilia Pettit, CHELY [address] [facility] [address] [place] [address] documented as of this encounter Visit Diagnoses Not on filedocumented in this encounter Care Teams Foil Cutter Relationship Specialty Start Date End Date Shilo Soares MD [address] [place] [address] PCP - General Internal Medicine 04/24/23 documented as of this encounter
--- OUTSIDE RECORDS SUMMARY | 2024-07-26 23:49 | XMS_ITS | Encounter Summary ---
Author Organization [facility] Address [address] [place] [address] Care Team Providers Care Library Services Coordinator Name Role Phone Shilo Soares MD Primary Care Provider [phone] Reason for Referral * CT Scan (Routine) - Closed Specialty Diagnoses / Procedures Referred By Alison gomez Referred To Contact Diagnoses Malignant neoplasm of ovary, unspecified laterality Procedures CT CHEST ABDOMEN PELVIS W Edilia Gilbert NP [address] [place] [address] Scan [address] BETH [address] [place] [address] Referral ID Status Reason Start Date Expiration Date Visits Re quested Visits Authorized [id number] Closed 11/16/2023 12/16/2024 1 1 Reason for Visit * CT Scan (Routine) - Closed Specialty Diagnoses / Procedures Referred By Alison gomez Referred To Contact Diagnoses Malignant neoplasm of ovary, unspecified laterality Procedures CT CHEST ABDOMEN PELVIS W Edilia Gilbert NP [address] [place] [address] Scan [address] [place] [address] Referral ID Status Reason Start Date Expiration Date Visits Re quested Visits Authorized [id number] Closed 11/16/2023 12/16/2024 1 1 Encounter Details Date Type Department Care Team (Latest Contact Info) Description 02/10/2024 1:35 PM CDT - 02/10/2024 11:59 PM CDT Hospital Encounter [facility] Scan [address] [place] [address] Edilia Pettit, FINANCE CLERK [address] [place] [address] Discharge Disposition: Home or Self Care Social [...] bedtime. 02/26/2021 fluticasone propionate (FLONASE) 50 mcg/spray [place], Suspension nasal inhaler Administer 2 Sprays in each nostril daily. omega-3 fatty acids-fish oil 300-1,000 mg Capsule Take 2 Capsules by mouth daily. olaparib 150 mg tablet Take 2 Tablets (300 mg) by mouth 2 times daily. 120 Tablet 3 11/19/2023 02/15/2024 documented as of this encounter Procedure Notes * Kaylynn Waldrop, RT - 02/10/2024 2:15 PM CDT Images from the original note were not included. [facility] IMS Medication and Flush Protocol- CT and MRI Procedures [facility] Approved by: [facility]-Medical Executive Committee Approval Date: 01/28/2024 ORDERS ARE [...] is oral. May use nasoenteric tube ifneeded. [place] to 3 months Administer up to 90mL [...] 300 mg/ml oral solution age appropriate guidelines [place] Administer 45mL of diluted Iopamidol oral solution, [...] than 55kg and confirm dose with radiologist. [place] to 15 years old Administer 2.2mL/kg (to MAX of 80 mL) of Iopamidol (Isovue-300) 61%, intravenously, one time only 15 years old and older Administer 2.2mL/kg (to MAX of 150mL) of Iopamidol (Isovue-300) 61%, intravenously, one time only PROCEDURE SPECIFIC MRI MEDICATIONS: MRI ENTEROGRAPHY: GLUGACON ADMINISTRATION Nurse will enter the following medication [...] number of NSF cases: Gadodiamide (Omniscan?? - Arkadium) Gadopentetate dimeglumine (Magnevist?? - Celery) Gadoversetamide (OptiMARK?? - Guerbet) Group II: Agents associated with few, if any, unconfounded cases of NSF: Gadobenate dimeglumine (MultiHance?? - Comsenz Diagnostics) Gadobutrol (Gadavist?? - CellNovo Pharmaceuticals; Gadovist in many countries) Gadoteric acid (Dotarem?? - Guerbet, Clariscan - Arkadium) Gadoteridol (ProHance?? - Comsenz Diagnostics) Group III: Agents for which data remains limited regarding NSF risk, but for which few, if any unconfounded cases of NSF have been reported: Gadoxetate disodium (Eovist - Celery; Primovist in many countries) documented in this encounter Miscellaneous Notes * Result Encounter Note - Aviva Humphries MD - 02/10/2024 2:15 PM CDT Please let Narda know that I have reviewed her CT scan. Her abdomen and pelvis look great. She has very small nodules in the chest that we will need to continue to follow. Lets repeat CT chest in 3 months. If there is a change in size at that time we can do a PETCT documented in this encounter Plan of Treatment Upcoming Encounters Date Type Department Care Team (Late st Contact Info) Description 08/04/2024 1:00 PM FINAL INSPECTOR SHUTTLE Appointment Randy [facility] Infusion Center [facility] [address] [place] [address] Aviva Humphries MD [address] [facility] [address] [place] [address] Infusion Chair 5, 2nd [facility] 08/25/2024 1:00 PM FINAL INSPECTOR SHUTTLE Office Visit [facility] Gynecologic Oncology [place] [address] [facility] [address] [place] [address] Edilia Pettit NP [address] [address] 08/25/2024 1:30 PM FINAL INSPECTOR SHUTTLE Appointment Randy [facility]fusion Center [facility] [address] [place] [address] Aviva Humphries MD [address] [facility] [address] [place] [address] Infusion Chair 1, [address] [place] [address] 09/01/2024 10:45 AM FINAL INSPECTOR SHUTTLE Appointment Randy [facility] Nuclear Medicine [address] [place] [address] [id number] Edilia Pettit, CHELY [address] [facility] [address] [place] [address] documented as of this encounter Procedures Procedure Name Priority Date/Time Associated Diagnosis Comments CT CHEST ABDOMEN PELVIS W CONT Routine 02/10/2024 2:00 PM CDT Malignant neoplasm of ovary, unspecified laterality documented in this encounter Results * CT CHEST ABDOMEN PELVIS W CONT (02/10/2024 2:00 PM CDT) Anatomical Region Laterality Modality Chest Computed Tomogra phy 02/10/2024 2:54 PM CDT Impressions 02/10/2024 6:46 PM CDT IMPRESSION: Interval development of multiple scattered pulmonary nodules in need of short-term follow-up as described above. COMPUTED TOMOGRAPHY EXAMINATION OF THE ABDOMEN AND PELVIS WITH INTRAVENOUS CONTRAST ADMINISTRATION ?? DATE: 02/10/2024 2:00 PM HISTORY: ??Ovarian cancer, monitor. ?? COMPARISON: November 09, 2023 TECHNIQUE: Following intravenous contrast administration, enhanced axial images of the abdomen and pelvis were obtained. FINDINGS: Since the prior examination, the visceral organs enhance appropriately. No concerning retroperitoneal pelvic or inguinal adenopathy is demonstrated. Review of images in bone window settings is unremarkable. No evidence to suggest new or recurrent disease is demonstrated. IMPRESSION: No evidence of new or recurrent disease. Please read the report above for the findings of the chest CT. DICTATION LOCATION: Location 1 - [facility] The examination was performed with the adjustment of mA according to the patient size and/or the use of Iterative Reconstruction Technique. ?? Narrative 02/10/2024 6:46 PM CDT COMPUTED TOMOGRAPHY EXAMINATION OF THE CHEST WITH INTRAVENOUS CONTRAST DATE: 02/10/2024 2:00 PM HISTORY: Ovarian cancer, monitor. COMPARISON: November 09, 2023 ?? TECHNIQUE Axial images of the chest were obtained following ?? intravenous contrast administration. FINDINGS: ?? A previously described left upper lobe soft tissue pulmonary nodule appears less prominent and less solid than on the prior examination. However, multiple bilateral sub-3 mm nodules have developed when compared to the prior examination. This is concerning for early metastatic disease and short-term follow-up evaluation is very strongly recommended. Bilateral diffuse changes of emphysema are again demonstrated. No concerning mediastinal or axillary adenopathy is present. No pneumothorax or pleural effusions are present. The mediastinal vascular structures enhance appropriately. Procedure Note Francisco Vivas MD - 02/10/2024 COMPUTED TOMOGRAPHY EXAMINATION OF THE CHEST WITH INTRAVENOUS CONTRAST DATE: 02/10/2024 2:00 PM HISTORY: Ovarian cancer, monitor. COMPARISON: November 09, 2023 TECHNIQUE Axial images of the chest were obtained following intravenous contrast administration. FINDINGS: A previously described left upper lobe soft tissue pulmonary nodule appears less prominent and less solid than on the prior examination. However, multiple bilateral sub-3 mm nodules have developed when compared to the prior examination. This is concerning for early metastatic disease and short-term follow-up evaluation is very strongly recommended. Bilateral diffuse changes of emphysema are again demonstrated. No concerning mediastinal or axillary adenopathy is present. No pneumothorax or pleural effusions are present. The mediastinal vascular structures enhance appropriately. IMPRESSION: Interval development of multiple scattered pulmonary nodules in need of short-term follow-up as described above. COMPUTED TOMOGRAPHY EXAMINATION OF THE ABDOMEN AND PELVIS WITH INTRAVENOUS CONTRAST ADMINISTRATION DATE: 02/10/2024 2:00 PM HISTORY: Ovarian cancer, monitor. COMPARISON: November 09, 2023 TECHNIQUE: Following intravenous contrast administration, enhanced axial images of the abdomen and pelvis were obtained. FINDINGS: Since the prior examination, the visceral organs enhance appropriately. No concerning retroperitoneal pelvic or inguinal adenopathy is demonstrated. Review of images in bone window settings is unremarkable. No evidence to suggest new or recurrent disease is demonstrated. IMPRESSION: No evidence of new or recurrent disease. Please read the report above for the findings of the chest CT. DICTATION LOCATION: Location - [facility] The examination was performed with the adjustment of mA according to the patient size and/or the use of Iterative Reconstruction Technique. Edilia Pettit NP CT ORDERABLES documented in this encounter Visit Diagnoses Diagnosis Malignant neoplasm of ovary, unspecified laterality documented in this encounter Administered Medications Inactive Administered Medications - up to 3 most recent administrations Medication Order MAR Action Action Date Dose Rate Site iopamidoL (ISOVUE-300) 61% injection (drawn from multi-use bulk pack) 60 mL 60 mL, IV, INTRA-PROCEDURE ONCE, 1 dose, Starting on Thu02/10/24 at 1418, Until Thu02/10/24 at 1353, Routine Contrast Given 02/10/2024 1:53 PM CDT 60 mL Arm , Right sodium chloride flush injection 10 mL 10 mL, IV, ONE TIME ONLY, 1 dose, On Thu02/10/24 at 1430, Routine Given 02/10/2024 1:44 PM CDT 10 mL Arm, Right documented in this encounter Care Teams Library Services Coordinator Relationship Specialty Start Date End Date Shilo Soares MD [address] [place] [phone] PCP - General Internal Medicine 04/24/23 documented as of this encounter
--- OUTSIDE RECORDS SUMMARY | 2024-07-26 23:49 | XMS_ITS | Encounter Summary ---
Author Organization [facility] Address [address] [place] [address] Care Team Providers Care Victim Witness Administrator Name Role Phone Shilo Soares MD Primary Care Provider [phone] Encounter Details Date Type Department Care Team [...] (Late Contact Info) Description 08/04/2024 1:00 PM FITNESS STUDIES TEACHER Appointment [facility] 2nd Pr [address] [place] [address] Aviva Humphries MD [address] [place] [address] Infusion Chair 5, 2nd Floor [place] 08/25/2024 1:00 PM FITNESS STUDIES TEACHER Office Visit [facility] Gynecologic Oncology Hall [address] [place] [address] Edilia Pettit, CHELY [address] [facility] [address] [place] [address] 08/25/2024 1:30 PM FITNESS STUDIES TEACHER Appointment [facility] 2nd Fl [address] [place] [address] Aviva Humphries MD [address] [facility] [facility] [address] [place] [address] Infusion Chair 1, 2nd Floor [place] 09/01/2024 10:45 AM FITNESS STUDIES TEACHER Appointment Randy [facility] Nuclear Medicine [address] [place] [address] [id number] Edilia Pettit, CHELY [address] [facility] [address] [place] [address] documented as of this encounter Visit Diagnoses Not on filedocumented in this encounter Care Teams Victim Witness Administrator Relationship Specialty Start Date End Date Shilo Soares MD [address] [place] [address] PCP - General Internal Medicine 04/24/23 documented as of this encounter
--- OUTSIDE RECORDS SUMMARY | 2024-07-26 23:49 | XMS_ITS | Encounter Summary ---
Author Organization [facility] Address [address] [place] [address] Care Team Providers Care Red Lead Burner Name Role Phone Shilo Soares MD Primary Care Provider [phone] Encounter Details Date Type Department Care Team [...] (Late Contact Info) Description 08/04/2024 1:00 PM PICKLE MAKER Appointment [facility] 2nd N[place] [address] [place] [address] Aviva Humphries MD [address] [place] [address] Infusion Chair 5, 2nd Floor [place] 08/25/2024 1:00 PM PICKLE MAKER Office Visit [facility] Gynecologic Oncology Hall [address] [place] [address] Edilia Pettit, CHELY [address] [facility] [address] [place] [address] 08/25/2024 1:30 PM PICKLE MAKER Appointment [facility] 2nd Fl [address] [place] [address] Aviva Humphries MD [address] [facility] [facility] [address] [place] [address] Infusion Chair 1, 2nd Floor [place] 09/01/2024 10:45 AM PICKLE MAKER Appointment Randy [facility] Nuclear Medicine [address] [place] [address] [id number] Edilia Pettit, CHELY [address] [facility] [address] [place] [address] documented as of this encounter Visit Diagnoses Not on filedocumented in this encounter Care Teams Red Lead Burner Relationship Specialty Start Date End Date Shilo Soares MD [address] [place] [address] PCP - General Internal Medicine 04/24/23 documented as of this encounter
--- OUTSIDE RECORDS SUMMARY | 2024-07-26 23:49 | XMS_ITS | Encounter Summary ---
Author Organization [facility] Address [address] [place] [address] Care Team Providers Care Loss Prevention And Safety Manager Name Role Phone Shilo Soares MD Primary Care Provider [phone] Encounter Details Date Type Department Care Team [...] (Late Contact Info) Description 08/04/2024 1:00 PM HOUSEKEEPER CHILD CARE Appointment [facility] 2nd Me [address] [place] [address] Aviva Humphries MD [address] [place] [address] Infusion Chair 5, 2nd Floor [place] 08/25/2024 1:00 PM HOUSEKEEPER CHILD CARE Office Visit [facility] Gynecologic Oncology Hall [address] [place] [address] Edilia Pettit, CHELY [address] [facility] [address] [place] [address] 08/25/2024 1:30 PM HOUSEKEEPER CHILD CARE Appointment [facility] 2nd Fl [address] [place] [address] Aviva Humphries MD [address] [facility] [address] [place] [address] Infusion Chair 1, 2nd Floor [place] 09/01/2024 10:45 AM HOUSEKEEPER CHILD CARE Appointment Randy Hall [facility] Nuclear Medicine [address] [place] [address] [id number] Edilia Pettit, CHELY [address] [facility] [address] [place] [address] documented as of this encounter Visit Diagnoses Not on filedocumented in this encounter Care Teams Loss Prevention And Safety Manager Relationship Specialty Start Date End Date Shilo Soares MD [address] [place] [address] PCP - General Internal Medicine 04/24/23 documented as of this encounter
--- OUTSIDE RECORDS SUMMARY | 2024-07-26 23:49 | XMS_ITS | Encounter Summary ---
Author Organization [facility] Address [address] [place] [address] Care Team Providers Care Biomedical Specialist Name Role Phone Shilo Soares MD Primary Care Provider [phone] Reason for Referral * CT Scan (Routine) - Closed Specialty Diagnoses / Procedures Referred By Alison gomez Referred To Contact Diagnoses Encounter for follow-up surveillance of ovarian cancer Procedures CT CHEST ABDOMEN PELVIS W CONT CT CHEST ABDOMEN PELVIS W WO CONT Aviva Humphries MD [address] [place] [address] [facility] Ct Scan [address] [facility] [address] [place] [address] Referral ID Status Reason Start Date Expiration Date Visits Re quested Visits Authorized [id number] Closed 05/15/2024 08/09/2024 1 1 Reason for Visit * Reason Onset Date Comments Follow Up 02/12/2024 Encounter Details Date Type Department Care Team (Late st Contact Info) Description 02/12/2024 Telephone [facility] Gynecologic Oncology Hall [address] [place] [address] Aviva Humphries MD [address] [place] [address] Follow Up Social History Tobacco [...] encounter Miscellaneous Notes * Telephone Encounter - Stevie Chavarria RN - 02/12/2024 11:08 AM CDT ----- Message from Aviva Humphries MD sent at 02/12/2024 10:50 AM CDT ----- Please let Narda know that [...] st Contact Info) Description 08/04/2024 1:00 PM BAG MACHINE SET UP OPERATOR Appointment [facility] [address] [place] [address] Aviva Humphries MD [address] [place] [address] Infusion Chair 5, 2nd Floor [place] 08/25/2024 1:00 PM BAG MACHINE SET UP OPERATOR Office Visit [facility] Gynecologic Oncology Hall [address] [place] [address] Edilia Pettit NP [address] [place] [address] 08/25/2024 1:30 PM BAG MACHINE SET UP OPERATOR Appointment [facility] Infusion Center 2nd Fl [address] [place] [phone] Aviva Humphries MD [address] [facility] [address] [place] [address] Infusion Chair 1, 2nd Floor [place] 09/01/2024 10:45 AM BAG MACHINE SET UP OPERATOR Appointment Randy Proctor [facility] Nuclear Medicine [address] [place] [address] [id number] Edilia Pettit NP [address] [facility] [address] [place] [address] documented as of this encounter Results * CT CHEST ABDOMEN [...] Diagnosis Encounter for follow-up surveillance of ovarian cancer- Primary Unspecified follow-up examination Encounter for follow-up surveillance of ovarian cancer Unspecified follow-up examination documented in this encounter Care Teams Biomedical Specialist Relationship Specialty Start Date End Date Shilo Soares MD [address] [place] [address] PCP - General Internal Medicine 04/24/23 documented as of this encounter
--- OUTSIDE RECORDS SUMMARY | 2024-07-26 23:49 | XMS_ITS | Encounter Summary ---
Author Organization [facility] Address [address] [place] [address] Care Team Providers Care Cattle Driver Name Role Phone Shilo Soares MD Primary Care Provider [phone] Encounter Details Date Type Department Care Team [...] (Late Contact Info) Description 08/04/2024 1:00 PM PARTITION MAKING MACHINE OPERATOR Appointment [facility] 2nd [place] [address] [place] [address] Aviva Humphries MD [address] [place] [address] Infusion Chair 5, 2nd Floor [place] 08/25/2024 1:00 PM PARTITION MAKING MACHINE OPERATOR Office Visit [facility] Gynecologic Oncology Hall [address] [place] [address] Edilia Pettit, CHELY [address] [facility] [address] [place] [address] 08/25/2024 1:30 PM PARTITION MAKING MACHINE OPERATOR Appointment [facility] 2nd Fl [address] [place] [address] Aviva Humphries MD [address] [place] [address] Infusion Chair 1, 2nd Floor [place] 09/01/2024 10:45 AM PARTITION MAKING MACHINE OPERATOR Appointment Randy Hall [facility] Nuclear Medicine [address] [place] [address] [id number] Edilia Pettit, CHELY [address] [facility] [address] [place] [address] documented as of this encounter Visit Diagnoses Not on filedocumented in this encounter Care Teams Cattle Driver Relationship Specialty Start Date End Date Shilo Soares MD [address] [place] [address] PCP - General Internal Medicine 04/24/23 documented as of this encounter
--- OUTSIDE RECORDS SUMMARY | 2024-07-26 23:49 | XMS_ITS | Encounter Summary ---
Author Organization [facility] Address [address] [place] [address] Care Team Providers Care Film Waxer Name Role Phone Shilo Soares MD Primary Care Provider [phone] Encounter Details Date Type Department Care Team [...] (Late Contact Info) Description 08/04/2024 1:00 PM POLICE MATRON Appointment [facility] 2nd Pr [address] [place] [address] Aviva Humphries MD [address] [place] [address] Infusion Chair 5, 2nd Floor [place] 08/25/2024 1:00 PM POLICE MATRON Office Visit [facility] Gynecologic Oncology Hall [address] [place] [address] Edilia Pettit, CHELY [address] [place] [address] 08/25/2024 1:30 PM POLICE MATRON Appointment [facility] 2nd Fl [address] [place] [address] Aviva Humphries MD [address] [facility] [address] [place] [address] Infusion Chair 1, 2nd Floor [place] 09/01/2024 10:45 AM POLICE MATRON Appointment [facility] Nuclear Medicine [address] [place] [address] [id number] Edilia Pettit, CHELY [address] [facility] [address] [place] [address] documented as of this encounter Visit Diagnoses Not on filedocumented in this encounter Care Teams Film Waxer Relationship Specialty Start Date End Date Shilo Soares MD [address] [place] [address] PCP - General Internal Medicine 04/24/23 documented as of this encounter
--- OUTSIDE RECORDS SUMMARY | 2024-07-26 23:49 | XMS_ITS | Encounter Summary ---
Author Organization [facility] Address [address] [place] [address] Care Team Providers Care Hearing Stenographer Name Role Phone Shilo Soares MD Primary Care Provider [phone] Encounter Details Date Type Department Care Team [...] Contact Info) Description 08/04/2024 1:00 PM FINANCIAL ANALYST Appointment [facility] 2nd De [address] [place] [address] Aviva Humphries MD [address] [place] [address] Infusion Chair 5, 2nd Floor Hall 08/25/2024 1:00 PM FINANCIAL ANALYST Office Visit [facility] Gynecologic Oncology Hall [address] [place] [address] Edilia Pettit, CHELY [address] [place] [address] 08/25/2024 1:30 PM FINANCIAL ANALYST Appointment [facility] 2nd Fl [address] [place] [address] Aviva Humphries MD [address] [place] [address] Infusion Chair 1, 2nd Floor [place] 09/01/2024 10:45 AM FINANCIAL ANALYST Appointment [facility] Nuclear Medicine [address] [place] [address] [id number] Edilia Pettit, CHELY [address] [place] [address] documented as of this encounter Visit Diagnoses Not on filedocumented in this encounter Care Teams Hearing Stenographer Relationship Specialty Start Date End Date Shilo Soares MD [address] [place] [address] PCP - General Internal Medicine 04/24/23 documented as of this encounter
--- OUTSIDE RECORDS SUMMARY | 2024-07-26 23:50 | XMS_ITS | Encounter Summary ---
Author Organization [facility] Address [address] [place] [address] Care Team Providers Care Ways Operator Name Role Phone Shilo Soares MD Primary Care Provider [phone] Encounter Details Date Type Department Care Team (Late Contact Info) Description 01/23/2024 External Device Data STL ABSTRACTION Provider, Abstract [...] (Late Contact Info) Description 08/04/2024 1:00 PM GLASS CALIBRATOR Appointment [facility] 2nd N[place] [address] [place] [address] Aviva Humphries MD [address] [place] [address] Infusion Chair 5, 2nd Floor Hall 08/25/2024 1:00 PM GLASS CALIBRATOR Office Visit [facility] Gynecologic Oncology Hall [address] [place] [address] Edilia Pettit, CHELY [address] [place] [address] 08/25/2024 1:30 PM GLASS CALIBRATOR Appointment [facility] 2nd Fl [address] [place] [address] Aviva Humphries MD [address] [place] [address] Infusion Chair 1, 2nd Floor [place] 09/01/2024 10:45 AM GLASS CALIBRATOR Appointment [facility] Nuclear Medicine [address] [place] [address] [id number] Edilia Pettit, CHELY [address] [facility] [address] [place] [address] documented as of this encounter Visit Diagnoses Not on filedocumented in this encounter Care Teams Ways Operator Relationship Specialty Start Date End Date Shilo Soares MD [address] [place] [address] PCP - General Internal Medicine 04/24/23 documented as of this encounter
--- OUTSIDE RECORDS SUMMARY | 2024-07-26 23:50 | XMS_ITS | Encounter Summary ---
Author Organization [facility] Address [address] [place] [address] Care Team Providers Care Chemical Dependency Counselor Name Role Phone Shilo Soares MD Primary Care Provider [phone] Reason for Visit * Reason Comments Follow Up Encounter Details Date Type Department Care Team (Latest Contact Info) Description 01/27/2024 11:30 AM CDT Office Visit [facility] Gynecologic Oncology Hall [address] [facility] [address] [place] [address] Edilia Pettit NP [address] [facility] [address] [place] [address] Encounter for follow-up surveillance of ovarian cancer (Primary Dx); Chemotherapy follow-up examination; Chemotherapy-induced fatigue; Malignant neoplasm of ovary, unspecified laterality Social [...] Sign Reading Time Taken Comments Blood Pressure 130/88 01/27/2024 11:43 AM CDT Pulse 89 01/27/2024 11:43 AM CDT Temperature 36.9 ??C (98.4 ??F) 01/27/2024 11:43 AM C DT Respiratory Rate - - Oxygen Saturation 97% 01/27/2024 11:43 AM CDT Inhaled Oxygen Concentration - - Weight 48.6 kg (107 lb 2 oz) 01/27/2024 11:43 AM CDT Height 167.6 cm (5' 6 ) 01/27/2024 11:43 AM CDT Body Mass Index 17.29 01/27/2024 11:43 AM CDT documented in this encounter Progress Notes * Edilia Pettit, CHELY - 01/27/2024 11:30 AM CDT Images from the original note were not included. [facility] GYNECOLOGIC ONCOLOGY OFFICE VISIT 01/27/2024November Eileen Tiarra REFERRING PROVIDER: Dr. Barnard ref. provider found PRIMARY CARE PROVIDER: Shilo Harley MD RETURN PATIENT VISIT Cancer Staging Ovarian cancer Staging form: Ovary, Fallopian Tube, and Primary Peritoneal Carcinoma, AJCC 8th Edition - Clinical stage from 05/13/2023: FIGO Stage IVB - Signed by Aviva Humphries MD on 05/13/2023 Oncology History: 03/2023 presented to [facility] with abdominal distension; CT showed 11.6cm [...] No evidence of disease in abdomenor pelvis. Current Therapy: bevacizumab 15mg/m2 q21 days + [...] cell Interval history: Narda Mayen is a 64yo who presented to the ED 03/2022 with symptoms of abdominal distension. A CT scan was performed revealing a large ovarian mass with carcinomatosis, inguinal and pelvic LAD and thickening of the stomach wall. She was sen by Dr. Rodgers in Medical Oncology on 04/29/23 who ordered additional work up and referred to glove machine operator oncology. CT chest did not show metastatic disease. CA-125 was performed at elevated at 751. 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 She was started on NACT with carbo/taxol/sima as noted above. She underwent surgical debulking with me as noted above. She has resumed post-operative chemotherapy. She is currently receiving maintenance therapy in the form of bevacizumab 15mg/m2 q21 days + olaparib 300mg BID. Weight trend 05/13/23 113 lbs 07/22/23 101 lbs 08/19/23 99lbs (96lbs at discharge) 09/23/23 104lbs 11/26/23 109lbs 12/16/23 108lbs 01/27/24 107lbs She has been very fatigued since starting the olaparib. In planning for a long weekend trip she paused the medication. No med from 01/19-01/26. She reported a bit more energy but not substantial. We discussed dose reduction. Narda would like to continue on 300mg BID for the time being. Will reevaluate with C#12. Narda denies recent changes to urinary or bowel habits. Denies newly diminished appetite, nausea, vomiting, new onset pain, abdominal bloating, or vaginal bleeding. Lab Results Component Value Date/Time CA125 7 01/27/2024 10:48 AM CA125 7.1 [...] reviewed and are negative. Pertinent imaging studies: 11/09/23 CTCAP IMPRESSION: 1. New 5 mm [...] to show a complete pinpoint, stellate lumen. Senior Office Assistant sections are submitted in cassettes labeled A1-anterior cervix; A2-anterior polyp, submitted entirely; A3-anterior endomyometrium; A4-posterior cervix; A5-posterior endomyometrium; A6-left ovary; A7-left fallopian tube, fimbria submitted entirely; A8-presumed right fallopian tube, fimbria submitted entirely; A9 through X91-nwstjo mass (2 sections in each cassette) with mucinous component in 9-10. Received in the second container additionally labeled omentum are 2 irregular fragments of calhoun-yellow to red-brown lobulated omentum measuring 35.8 x 6 x 2 cm in aggregate. Sections show a calhoun-yellow, fatty cut surface containing multiple pink-cancino firm nodules measuring up to 1.8 cm in greatest dimension. Senior Office Assistant sections are submitted in cassettes labeled B1 [...] SMB MICROSCOPIC DESCRIPTION The slides are labeled [id number] and November. Sections of the salpingo-oophorectomy (A) [...] heterogeneity, focal positivity for ER, and rare DC positivity. Negative staining is observed for WT1 and CK20. Although weak patchy positivity for AMACR and Napsin A,and focal positivity for ER and rare DC positivity are unusual for clear cell carcinoma, [...] Component FINAL DIAGNOSIS [place] [address] (OSC [id number]; 04/29/2023 and [id number]; 05/06/2023) [id number] Ascites fluid, cytologic examination: - CK7 positive adenocarcinoma. [id number] Lymph node, right inguinal, biopsy: - Metastatic carcinoma most compatible with high-grade serous carcinoma. See comment. at 1237 MICROSCOPIC DESCRIPTION Received are slides labeled [id number] and [id number] and Narda Joel Mayen. Microscopic examination of [...] origin. Sections of the lymph node biopsy ([id number]) show cores of lymph node involved by [...] [facility] HX BLADDER REPAIR N/A 08/06/2023 BLADDER REPAIR performed by vAiva Humphries MD at [facility] HX BUNIONECTOMY Bilateral 2009 HX SECTION 1982,1985,1994 HX PORTACATH PLACEMENT Right 2022 HX URETEROLYSIS Bilateral 08/06/2023 URETEROLYSIS performed by Aviva Humphries MD at [facility] DC BX/EXC LYMPH NODE OPEN SUPERFICIAL Right 08/06/2023 INGUINAL OR FEMORAL LYMPH NODE BIOPSY/EXCISION performed by Aviva Humphries MD at [facility] DC LAPAROSCOPY W/RMVL ADNEXAL STRUCTURES N/A 08/06/2023 SALPINGO-OOPHORECTOMY LAPAROSCOPIC performed by Aviva Humphries MD at [facility] DC OMNTC EPIPLOECTOMY RESCJ OMENTUM SPX N/A 08/06/2023 OMENTECTOMY performed by Aviva Humphries MD at [facility] DC TOTAL ABDOMINAL HYSTERECT W/WO RMVL TUBE OVARY N/A 08/06/2023 HYSTERECTOMY ABDOMINAL TOTAL performed by Aviva Humphries MD at [facility] DC UNLISTED PROCEDURE DIAPHRAGM N/A 08/06/2023 DIAPHRAGM BIOPSY performed by Aviva Humphries MD at [facility] Allergies Allergen Reactions Penicillins Rash Ciprofloxacin Rash Current Outpatient Medications: losartan (COZAAR) 50 mg tablet, Take 50 mg by mouth daily., Disp: , Rfl: lidocaine-prilocaine (EMLA) 2.5-2.5 % Cream, APPLY A THIN LAYER OVER PORT SITE 30-45 MINUTES PRIOR TO CHEMOTHERAPY., Disp: 30 Gram, Rfl: 0 olaparib 150 mg tablet, Take 2 Tablets (300 mg) by mouth 2 times daily., Disp: 120 Tablet, Rfl: 3 loratadine (CLARITIN) 10 mg tablet, Take 10 [...] , Rfl: fluticasone propionate (FLONASE) 50 mcg/spray [place], Suspension nasal inhaler, Administer 2 Sprays in each nostril daily., Disp: , Rfl: omega-3 fatty acids-fish oil 300-1,000 mg Capsule, Take 2 Capsules by mouth daily., Disp: , Rfl: No current facility-administered medications for this visit. Facility-Administered Medications Ordered in Other Visits: [COMPLETED] alteplase (CATHFLO ACTIVASE) injection 2 mg, 2 mg, Dwell, ONE time only, Aviva Humphries MD, 2 mg at 01/27/24 1102 [COMPLETED] sterile water injection, , See Admin Instructions, ONE time only, Aviva Humphries MD,10 mL at 01/27/24 1103 [DISCONTINUED] sodium chloride flush injection 10 mL, 10 mL, IV, see admin instructions, Aviva Humphries MD [DISCONTINUED] heparin, porcine (pf) 10 unit/mL IV syringe 50 Units, 50 Units, IV, ONE time only, Aviva Humphries MD FAMILY HISTORY: Cancer-related family history includes Lung Cancer (age of onset: 60 - 69) in her father. No uterine, cervix, ovarian, breast or colon cancer OBHx: OB History No obstetric history on file. 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 Down to half pack per day. 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 BP 130/88 (BP Location: Left arm, Patient Position (BP): Sitting, BP Cuff Size: Adult) Pulse 89 Temp 98.4 ??F (36.9 ??C) (Oral) Ht 5' 6 (1.676 m) Wt 48.6 kg (107 lb 2 oz) LMP (LMP Unknown) SpO2 97% BMI 17.29 kg/m?? ECOG PS: 0 HEAD: Normocephalic, atraumatic. [...] STATUS: Affect was appropriate. PELVIC EXAM: deferred PRESCRIPTIONS WRITTEN THIS VISIT: Requested Prescriptions No prescriptions requested or ordered in this encounter ASSESSMENT and PLAN: 1. Encounter for follow-up surveillance of ovarian cancer 2. Chemotherapy follow-up examination 3. Chemotherapy-induced fatigue 4. Malignant neoplasm of ovary, unspecified laterality CHEMOTHERAPY APPOINTMENT REQUEST B Narda is a 62yo with Stage 4b clear cell carcinoma of [...] Pt would like to continue 300mg BID, reevaluate at next visit. -Previously hypertensive, Losartan increased by PCP. BP normotensive today. -Her post-treatment CT scan showed good response. A small nodule in the upper lung was noted - willcontinue to f/u. CT CAP scheduled for 02/10/24. Return to clinic: f/u w/ cycle #18 February w/ Dr. Humphries Thank you for involving [facility] Gynecologic Oncology in the care of this patient. Edilia Pettit NP Attending Attestation I have not seen or examined the patient. I have reviewed the documentation by Edilia Pettit NP and I agree with the plan. Aviva Humphries MD [facility] Gynecologic Oncology documented in this encounter Plan of Treatment Upcoming Encounters Date Type Department Care Team (Late st Contact Info) Description 08/04/2024 1:00 PM LAST MARKER Appointment [facility] Infusion Center 2nd Fl [address] [place] [address] Aviva Humphries MD [address] [facility] [address] [place] [address] Infusion Chair 5, 2nd Floor [place] 08/25/2024 1:00 PM LAST MARKER Office Visit [facility] Gynecologic Oncology Hall [address] [facility] [address] [place] [address] Edilia Pettit NP [address] [facility] [address] [place] [address] 08/25/2024 1:30 PM LAST MARKER Appointment [facility] [address] [place] [address] Aviva Humphries MD [address] [place] [address] Infusion Chair 1, 2nd Floor Hall 09/01/2024 10:45 AM LAST MARKER Appointment Randy [facility] Nuclear Medicine [address] [place] [address] [id number] Edilia Pettit, CHELY [address] [facility] [address] [place] [address] documented as of this encounter Visit Diagnoses Diagnosis Encounter for follow-up surveillance of ovarian cancer- Primary Unspecified follow-up examination Chemotherapy follow-up examination Chemotherapy-induced fatigue Malignant neoplasm of ovary, unspecified laterality documented in this encounter Care Teams Chemical Dependency Counselor Relationship Specialty Start Date End Date Shilo Soares MD [address] [place] [address] PCP - General Internal Medicine 04/24/23 documented as of this encounter
--- OUTSIDE RECORDS SUMMARY | 2024-07-26 23:50 | XMS_ITS | Encounter Summary ---
Author Organization [facility] Address [address] [place] [address] Care Team Providers Care Pharmacy Technologist Name Role Phone Shilo Soares MD Primary Care Provider [phone] Encounter Details Date Type Department Care Team (Late Contact Info) Description 01/31/2024 External Device Data STL ABSTRACTION Provider, Abstract [...] (Late Contact Info) Description 08/04/2024 1:00 PM SUPERVISING NURSE Appointment [facility] 2nd Nm [address] [place] [address] Aviva Humphries MD [address] [place] [address] Infusion Chair 5, 2nd Floor Hall 08/25/2024 1:00 PM SUPERVISING NURSE Office Visit [facility] Gynecologic Oncology Hall [address] [place] [address] Edilia Pettit, CHELY [address] [place] [address] 08/25/2024 1:30 PM SUPERVISING NURSE Appointment [facility] 2nd Fl [address] [place] [address] Aviva Humphries MD [address] [place] [address] Infusion Chair 1, 2nd Floor [place] 09/01/2024 10:45 AM SUPERVISING NURSE Appointment [facility] Nuclear Medicine [address] [place] [address] [id number] Edilia Pettit, CHELY [address] [facility] [address] [place] [address] documented as of this encounter Visit Diagnoses Not on filedocumented in this encounter Care Teams Pharmacy Technologist Relationship Specialty Start Date End Date Shilo Soares MD [address] [place] [address] PCP - General Internal Medicine 04/24/23 documented as of this encounter
--- OUTSIDE RECORDS SUMMARY | 2024-07-26 23:50 | XMS_ITS | Encounter Summary ---
Author Organization [facility] Address [address] [place] [address] Care Team Providers Care Accounts Administrator Name Role Phone Shilo Soares MD Primary Care Provider [phone] Encounter Details Date Type Department Care Team (Late Contact Info) Description 01/26/2024 External Device Data STL ABSTRACTION Provider, Abstract [...] (Late Contact Info) Description 08/04/2024 1:00 PM LENS BLANK GAUGER Appointment [facility] 2nd [place] [address] [place] [address] Aviva Humphries MD [address] [place] [address] Infusion Chair 5, 2nd Floor Hall 08/25/2024 1:00 PM LENS BLANK GAUGER Office Visit [facility] Gynecologic Oncology Hall [address] [place] [address] Edilia Pettit, CHELY [address] [place] [address] 08/25/2024 1:30 PM LENS BLANK GAUGER Appointment [facility] 2nd Fl [address] [place] [address] Aviva Humphries MD [address] [place] [address] Infusion Chair 1, 2nd Floor [place] 09/01/2024 10:45 AM LENS BLANK GAUGER Appointment [facility] Nuclear Medicine [address] [place] [address] [id number] Edilia Pettit, CHELY [address] [facility] [address] [place] [address] documented as of this encounter Visit Diagnoses Not on filedocumented in this encounter Care Teams Accounts Administrator Relationship Specialty Start Date End Date Shilo Soares MD [address] [place] [address] PCP - General Internal Medicine 04/24/23 documented as of this encounter
--- OUTSIDE RECORDS SUMMARY | 2024-07-26 23:50 | XMS_ITS | Encounter Summary ---
Author Organization [facility] Address [address] [place] [address] Care Team Providers Care Molding Machine Operator Helper Name Role Phone Shilo Soares MD Primary Care Provider [phone] Encounter Details Date Type Department Care Team (Late Contact Info) Description 01/30/2024 External Device Data STL ABSTRACTION Provider, Abstract [...] (Late Contact Info) Description 08/04/2024 1:00 PM PSYCHIATRIC ORDERLY Appointment [facility] 2nd Sd [address] [place] [address] Aviva Humphries MD [address] [place] [address] Infusion Chair 5, 2nd Floor Hall 08/25/2024 1:00 PM PSYCHIATRIC ORDERLY Office Visit [facility] Gynecologic Oncology Hall [address] [place] [address] Edilia Pettit, CHELY [address] [place] [address] 08/25/2024 1:30 PM PSYCHIATRIC ORDERLY Appointment [facility] 2nd Fl [address] [place] [address] Aviva Humphries MD [address] [place] [address] Infusion Chair 1, 2nd Floor [place] 09/01/2024 10:45 AM PSYCHIATRIC ORDERLY Appointment [facility] Nuclear Medicine [address] [place] [address] [id number] Edilia Pettit, CHELY [address] [facility] [facility] [address] [place] [address] documented as of this encounter Visit Diagnoses Not on filedocumented in this encounter Care Teams Molding Machine Operator Helper Relationship Specialty Start Date End Date Shilo Soares MD [address] [place] [address] PCP - General Internal Medicine 04/24/23 documented as of this encounter
--- OUTSIDE RECORDS SUMMARY | 2024-07-26 23:50 | XMS_ITS | Encounter Summary ---
Author Organization [facility] Address [address] [place] [address] Care Team Providers Care Camera Prototyping Engineer Name Role Phone Shilo Soares MD Primary Care Provider [phone] Encounter Details Date Type Department Care Team (Late Contact Info) Description 02/05/2024 External Device Data STL ABSTRACTION Provider, Abstract [...] (Late Contact Info) Description 08/04/2024 1:00 PM EXPLOSIVE OPERATOR Appointment [facility] 2nd Nm [address] [place] [address] Aviva Humphries MD [address] [place] [address] Infusion Chair 5, 2nd Floor Hall 08/25/2024 1:00 PM EXPLOSIVE OPERATOR Office Visit [facility] Gynecologic Oncology Hall [address] [place] [address] Edilia Pettit, CHELY [address] [place] [address] 08/25/2024 1:30 PM EXPLOSIVE OPERATOR Appointment [facility] Center 2nd Fl [address] [place] [address] Aviva Humphries MD [address] [place] [address] Infusion Chair 1, 2nd Floor [place] 09/01/2024 10:45 AM EXPLOSIVE OPERATOR Appointment Randy [facility] Nuclear Medicine [address] [place] [address] [phone] Edilia Pettit, CHELY [address] [facility] [address] [place] [address] documented as of this encounter Visit Diagnoses Not on filedocumented in this encounter Care Teams Camera Prototyping Engineer Relationship Specialty Start Date End Date Shilo Soares MD [address] [place] [address] PCP - General Internal Medicine 04/24/23 documented as of this encounter
--- OUTSIDE RECORDS SUMMARY | 2024-07-26 23:50 | XMS_ITS | Encounter Summary ---
Author Organization [facility] Address [address] [place] [address] Care Team Providers Care Clinical Unit Coordinator Name Role Phone Shilo Soares MD Primary Care Provider [phone] Encounter Details Date Type Department Care Team (Late Contact Info) Description 02/01/2024 External Device Data STL ABSTRACTION Provider, Abstract [...] (Late Contact Info) Description 08/04/2024 1:00 PM HYDRAULIC STRAINER OPERATOR Appointment [facility] [address] [place] [address] Aviva Humphries MD [address] [place] [address] Infusion Chair 5, 2nd Floor [place] 08/25/2024 1:00 PM HYDRAULIC STRAINER OPERATOR Office Visit [facility] Gynecologic Oncology Hall [address] [place] [address] Edilia Pettit, CHELY [address] [address] [address] [place] [address] 08/25/2024 1:30 PM HYDRAULIC STRAINER OPERATOR Appointment [facility] 2nd Fl [address] [place] [address] Aviva Humphries MD [address] [place] [address] Infusion Chair 1, 2nd Floor [place] 09/01/2024 10:45 AM HYDRAULIC STRAINER OPERATOR Appointment [facility] Nuclear Medicine [address] [place] [address] [id number] Edilia Pettit, CHELY [address] [facility] [facility] [address] [place] [address] documented as of this encounter Visit Diagnoses Not on filedocumented in this encounter Care Teams Clinical Unit Coordinator Relationship Specialty Start Date End Date Shilo Soares MD [address] [place] [address] PCP - General Internal Medicine 04/24/23 documented as of this encounter
--- OUTSIDE RECORDS SUMMARY | 2024-07-26 23:50 | XMS_ITS | Encounter Summary ---
Author Organization [facility] Address [address] [place] [address] Care Team Providers Care Mechanical Manufacturing Engineer Name Role Phone Shilo Soares MD Primary Care Provider [phone] Encounter Details Date Type Department Care Team (Late Contact Info) Description 02/02/2024 External Device Data STL ABSTRACTION Provider, Abstract [...] (Late Contact Info) Description 08/04/2024 1:00 PM CLOTHING DESIGNER Appointment [facility] Sc [address] [place] [address] Aviva Humphries MD [address] [place] [address] Infusion Chair 5, 2nd Floor Hall 08/25/2024 1:00 PM CLOTHING DESIGNER Office Visit [facility] Gynecologic Oncology Hall [address] [place] [address] Edilia Pettit, CHELY [address] [place] [address] 08/25/2024 1:30 PM CLOTHING DESIGNER Appointment [facility] 2nd Fl [address] [place] [address] Aviva Humphries MD [address] [facility] [address] [place] [address] Infusion Chair 1, 2nd Floor [place] 09/01/2024 10:45 AM CLOTHING DESIGNER Appointment [facility] Nuclear Medicine [address] [place] [address] [id number] Edilia Pettit, CHELY [address] [facility] [address] [place] [address] documented as of this encounter Visit Diagnoses Not on filedocumented in this encounter Care Teams Mechanical Manufacturing Engineer Relationship Specialty Start Date End Date Shilo Soares MD [address] [place] [address] PCP - General Internal Medicine 04/24/23 documented as of this encounter
--- OUTSIDE RECORDS SUMMARY | 2024-07-26 23:50 | XMS_ITS | Encounter Summary ---
Author Organization [facility] Address [address] [place] [address] Care Team Providers Care Power Generating Plant Operator Name Role Phone Shilo Soares MD Primary Care Provider [phone] Encounter Details Date Type Department Care Team (Late Contact Info) Description 01/24/2024 External Device Data STL ABSTRACTION Provider, Abstract [...] (Late Contact Info) Description 08/04/2024 1:00 PM OCCUPATIONAL HYGIENIST Appointment [facility] [address] [place] [address] Aviva Humphries MD [address] [place] [address] Infusion Chair 5, 2nd Floor [place] 08/25/2024 1:00 PM OCCUPATIONAL HYGIENIST Office Visit [facility] Gynecologic Oncology Hall [address] [place] [address] Edilia Pettit, CHELY [address] [address] [place] [address] 08/25/2024 1:30 PM OCCUPATIONAL HYGIENIST Appointment [facility] 2nd Fl [address] [place] [address] Aviva Humphries MD [address] [place] [address] Infusion Chair 1, 2nd Floor [place] 09/01/2024 10:45 AM OCCUPATIONAL HYGIENIST Appointment [facility] Nuclear Medicine [address] [place] [address] [id number] Edilia Pettit, CHELY [address] [facility] [address] [place] [address] documented as of this encounter Visit Diagnoses Not on filedocumented in this encounter Care Teams Power Generating Plant Operator Relationship Specialty Start Date End Date Shilo Soares MD [address] [place] [address] PCP - General Internal Medicine 04/24/23 documented as of this encounter
--- OUTSIDE RECORDS SUMMARY | 2024-07-26 23:50 | XMS_ITS | Encounter Summary ---
Author Organization [facility] Address [address] [place] [address] Care Team Providers Care Miniature Set Builder Name Role Phone Shilo Soares MD Primary Care Provider [phone] Encounter Details Date Type Department Care Team (Late Contact Info) Description 01/25/2024 External Device Data STL ABSTRACTION Provider, Abstract [...] (Late Contact Info) Description 08/04/2024 1:00 PM BITUMINOUS DISTRIBUTOR OPERATOR Appointment [facility] Ri [address] [place] [address] Aviva Humphries MD [address] [place] [address] Infusion Chair 5, 2nd Floor [place] 08/25/2024 1:00 PM BITUMINOUS DISTRIBUTOR OPERATOR Office Visit [facility] Gynecologic Oncology Hall [address] [place] [address] Edilia Pettit, CHELY [address] [address] [place] [address] 08/25/2024 1:30 PM BITUMINOUS DISTRIBUTOR OPERATOR Appointment [facility] 2nd Fl [address] [place] [address] Aviva Humphries MD [address] [place] [address] Infusion Chair 1, 2nd Floor [place] 09/01/2024 10:45 AM BITUMINOUS DISTRIBUTOR OPERATOR Appointment [facility] Nuclear Medicine [address] [place] [address] [id number] Edilia Pettit, CHELY [address] [facility] [address] [place] [address] documented as of this encounter Visit Diagnoses Not on filedocumented in this encounter Care Teams Miniature Set Builder Relationship Specialty Start Date End Date Shilo Soares MD [address] [place] [address] PCP - General Internal Medicine 04/24/23 documented as of this encounter
--- OUTSIDE RECORDS SUMMARY | 2024-07-26 23:50 | XMS_ITS | Encounter Summary ---
Author Organization [facility] Address [address] [place] [address] Care Team Providers Care Manager Wellness Name Role Phone Shilo Soares MD Primary Care Provider [phone] Encounter Details Date Type Department Care Team (Late Contact Info) Description 01/22/2024 External Device Data STL ABSTRACTION Provider, Abstract [...] (Late Contact Info) Description 08/04/2024 1:00 PM RAILROAD WORKER Appointment [facility] Ar [address] [place] [address] Aviva Humphries MD [address] [place] [address] Infusion Chair 5, 2nd Floor [place] 08/25/2024 1:00 PM RAILROAD WORKER Office Visit [facility] Gynecologic Oncology Hall [address] [place] [address] Edilia Pettit, CHELY [address] [facility] [address] [place] [address] 08/25/2024 1:30 PM RAILROAD WORKER Appointment [facility] 2nd Fl [address] [place] [address] Aviva Humphries MD [address] [place] [address] Infusion Chair 1, 2nd Floor [place] 09/01/2024 10:45 AM RAILROAD WORKER Appointment [facility] Nuclear Medicine [address] [place] [address] [id number] Edilia Pettit, CHELY [address] [facility] [address] [place] [address] documented as of this encounter Visit Diagnoses Not on filedocumented in this encounter Care Teams Manager Wellness Relationship Specialty Start Date End Date Shilo Soares MD [address] [place] [address] PCP - General Internal Medicine 04/24/23 documented as of this encounter
--- OUTSIDE RECORDS SUMMARY | 2024-07-26 23:50 | XMS_ITS | Encounter Summary ---
Author Organization [facility] Address [address] [place] [address] Care Team Providers Care Detonator Assembler Name Role Phone Shilo Soares MD Primary Care Provider [phone] Encounter Details Date Type Department Care Team (Late Contact Info) Description 01/29/2024 External Device Data STL ABSTRACTION Provider, Abstract [...] (Late Contact Info) Description 08/04/2024 1:00 PM MACHINE LACER Appointment [facility] 2[facility] [place] [address] [place] [address] Aviva Humphries MD [address] [place] [address] Infusion Chair 5, 2nd Floor [place] 08/25/2024 1:00 PM MACHINE LACER Office Visit [facility] Gynecologic Oncology Hall [address] [place] [address] Edilia Pettit, CHELY [address] [facility] [facility] [address] [place] [address] 08/25/2024 1:30 PM MACHINE LACER Appointment [facility] 2nd Fl [address] [place] [address] Aviva Humphries MD [address] [facility] [facility] [address] [place] [address] Infusion Chair 1, 2nd Floor [place] 09/01/2024 10:45 AM MACHINE LACER Appointment [facility] Nuclear Medicine [address] [place] [address] [id number] Edilia Pettit, CHELY [address] [facility] [address] [place] [address] documented as of this encounter Visit Diagnoses Not on filedocumented in this encounter Care Teams Detonator Assembler Relationship Specialty Start Date End Date Shilo Soares MD [address] [place] [address] PCP - General Internal Medicine 04/24/23 documented as of this encounter
--- OUTSIDE RECORDS SUMMARY | 2024-07-26 23:50 | XMS_ITS | Encounter Summary ---
Author Organization [facility] Address [address] [place] [address] Care Team Providers Care Business Systems Analyst Name Role Phone Shilo Soares MD Primary Care Provider [phone] Encounter Details Date Type Department Care Team (Late Contact Info) Description 01/28/2024 External Device Data STL ABSTRACTION Provider, Abstract [...] (Late Contact Info) Description 08/04/2024 1:00 PM PARACHUTE PACKER Appointment [facility] 2[facility] Wi [address] [place] [address] Aviva Humphries MD [address] [place] [address] Infusion Chair 5, 2nd Floor [place] 08/25/2024 1:00 PM PARACHUTE PACKER Office Visit [facility] Gynecologic Oncology Hall [address] [place] [address] Edilia Pettit, CHELY [address] [place] [address] 08/25/2024 1:30 PM PARACHUTE PACKER Appointment [facility] 2nd Fl [address] [place] [address] Aviva Humphries MD [address] [place] [address] Infusion Chair 1, 2nd Floor [place] 09/01/2024 10:45 AM PARACHUTE PACKER Appointment [facility] Nuclear Medicine [address] [place] [address] [id number] Edilia Pettit, CHELY [address] [facility] [address] [place] [address] documented as of this encounter Visit Diagnoses Not on filedocumented in this encounter Care Teams Business Systems Analyst Relationship Specialty Start Date End Date Shilo Soares MD [address] [place] [address] PCP - General Internal Medicine 04/24/23 documented as of this encounter
--- OUTSIDE RECORDS SUMMARY | 2024-07-26 23:50 | XMS_ITS | Encounter Summary ---
Author Organization [facility] Address [address] [place] [address] Care Team Providers Care Bow Stapler Name Role Phone Shilo Soares MD Primary Care Provider [phone] Encounter Details Date Type Department Care Team [...] (Late Contact Info) Description 08/04/2024 1:00 PM DEFENSE ATTORNEY Appointment [facility] 2nd Nh [address] [place] [address] Aviva Humphries MD [address] [place] [address] Infusion Chair 5, 2nd Floor Hall 08/25/2024 1:00 PM DEFENSE ATTORNEY Office Visit [facility] Gynecologic Oncology Hall [address] [place] [address] Edilia Pettit, CHELY [address] [facility] [address] [place] [address] 08/25/2024 1:30 PM DEFENSE ATTORNEY Appointment [facility] 2nd Fl [address] [place] [address] Aviva Humphries MD [address] [facility] [address] [facility] [address] [place] [address] Infusion Chair 1, 2nd Floor [place] 09/01/2024 10:45 AM DEFENSE ATTORNEY Appointment [facility] Nuclear Medicine [address] [place] [address] [id number] Edilia Pettit, CHELY [address] [facility] [address] [place] [address] documented as of this encounter Visit Diagnoses Not on filedocumented in this encounter Care Teams Bow Stapler Relationship Specialty Start Date End Date Shilo Soares MD [address] [place] [address] PCP - General Internal Medicine 04/24/23 documented as of this encounter
--- OUTSIDE RECORDS SUMMARY | 2024-07-26 23:50 | XMS_ITS | Encounter Summary ---
Author Organization [facility] Address [address] [place] [address] Care Team Providers Care Demand Generation Manager Name Role Phone Shilo Soares MD Primary Care Provider [phone] Encounter Details Date Type Department Care Team [...] (Late Contact Info) Description 08/04/2024 1:00 PM ASSURANCE ASSOCIATE Appointment [facility] 2nd Sd [address] [place] [address] Aviva Humphries MD [address] [place] [address] Infusion Chair 5, 2nd Floor [place] 08/25/2024 1:00 PM ASSURANCE ASSOCIATE Office Visit [facility] Gynecologic Oncology Hall [address] [place] [address] Edilia Pettit, CHELY [address] [facility] [address] [place] [address] 08/25/2024 1:30 PM ASSURANCE ASSOCIATE Appointment [facility] 2nd Fl [address] [place] [address] Aviva Humphries MD [address] [place] [address] Infusion Chair 1, 2nd Floor [place] 09/01/2024 10:45 AM ASSURANCE ASSOCIATE Appointment [facility] Nuclear Medicine [address] [place] [address] [id number] Edilia Pettit, CHELY [address] [facility] [facility] [address] [place] [address] documented as of this encounter Visit Diagnoses Not on filedocumented in this encounter Care Teams Demand Generation Manager Relationship Specialty Start Date End Date Shilo Soares MD [address] [place] [address] PCP - General Internal Medicine 04/24/23 documented as of this encounter
--- OUTSIDE RECORDS SUMMARY | 2024-07-26 23:50 | XMS_ITS | Encounter Summary ---
Author Organization [facility] Address [address] [place] [address] Care Team Providers Care Copra Sampler Name Role Phone Shilo Soares MD Primary Care Provider [phone] Encounter Details Date Type Department Care Team [...] (Late Contact Info) Description 08/04/2024 1:00 PM SUPERINTENDENT FISH HATCHERY Appointment [facility] [place] [address] [place] [address] Aviva Humphries MD [address] [place] [address] Infusion Chair 5, 2nd Floor [place] 08/25/2024 1:00 PM SUPERINTENDENT FISH HATCHERY Office Visit [facility] Gynecologic Oncology Hall [address] [place] [address] Edilia Pettit, CHELY [address] [facility] [address] [place] [address] 08/25/2024 1:30 PM SUPERINTENDENT FISH HATCHERY Appointment [facility] 2nd Fl [address] [place] [address] Aviva Humphries MD [address] [facility] [facility] [address] [place] [address] Infusion Chair 1, 2nd Floor [place] 09/01/2024 10:45 AM SUPERINTENDENT FISH HATCHERY Appointment [facility] Nuclear Medicine [address] [place] [address] [id number] Edilia Pettit, CHELY [address] [facility] [address] [place] [address] documented as of this encounter Visit Diagnoses Not on filedocumented in this encounter Care Teams Copra Sampler Relationship Specialty Start Date End Date Shilo Soares MD [address] [place] [address] PCP - General Internal Medicine 04/24/23 documented as of this encounter
--- OUTSIDE RECORDS SUMMARY | 2024-07-26 23:50 | XMS_ITS | Encounter Summary ---
Author Organization [facility] Address [address] [place] [address] Care Team Providers Care Drafter Mechanical Name Role Phone Shilo Soares MD Primary Care Provider [phone] Encounter Details Date Type Department Care Team [...] (Late Contact Info) Description 08/04/2024 1:00 PM PREFORMING MACHINE OPERATOR Appointment [facility] 2nd T[place] [address] [place] [address] Aviva Humphries MD [address] [place] [address] Infusion Chair 5, 2nd Floor [place] 08/25/2024 1:00 PM PREFORMING MACHINE OPERATOR [facility] Gynecologic Oncology Hall [address] [place] [address] Edilia Pettit, CHELY [address] [address] [place] [address] 08/25/2024 1:30 PM PREFORMING MACHINE OPERATOR Appointment [facility] 2nd Fl [address] [place] [address] Aviva Humphries MD [address] [place] [address] Infusion Chair 1, 2nd Floor [place] 09/01/2024 10:45 AM PREFORMING MACHINE OPERATOR Appointment [facility] Nuclear Medicine [address] [place] [address] [id number] Edilia Pettit, CHELY [address] [facility] [address] [place] [address] documented as of this encounter Visit Diagnoses Not on filedocumented in this encounter Care Teams Drafter Mechanical Relationship Specialty Start Date End Date Shilo Soares MD [address] [place] [address] PCP - General Internal Medicine 04/24/23 documented as of this encounter
--- OUTSIDE RECORDS SUMMARY | 2024-07-26 23:50 | XMS_ITS | Encounter Summary ---
Author Organization [facility] Address [address] [place] [address] Care Team Providers Care Draftsperson Name Role Phone Shilo Soares MD Primary Care Provider [phone] Encounter Details Date Type Department Care Team (Latest Contact Info) Description 01/27/2024 10:29 AM CDT - 01/27/2024 11:59 PM CDT Hospital Encounter Randy [facility] [address] [place] [address] Aviva Humphries MD [address] [place] [address] Discharge Disposition: Home or Self [...] bedtime. 02/26/2021 fluticasone propionate (FLONASE) 50 mcg/spray [place], Suspension nasal inhaler Administer 2 Sprays in each nostril daily. omega-3 fatty acids-fish oil 300-1,000 mg Capsule Take 2 Capsules by mouth daily. olaparib 150 mg tablet Take 2 Tablets (300 mg) by mouth 2 times daily. 120 Tablet 3 11/19/2023 02/15/2024 documented as of this encounter Progress Notes * Belkis Tapia RN - 01/27/2024 10:45 AM CDT Port flushed as charted in MAR. Blood return positive but unable to draw enough for labs. Activase given without results. Blood specimen drawn peripherally and and sent to lab.Activase withdrew from port . Port flushed per protocol and de- accessed. Pt d/c ambulatory. documented in this encounter Plan of Treatment Upcoming Encounters Date Type Department Care Team (Late st Contact Info) Description 08/04/2024 1:00 PM SALES OPERATIONS LEAD Appointment Randy Proctor [facility] Infusion Center [facility] [address] [place] [address] Aviva Humphries MD [address] [facility] [address] [place] [address] Infusion Chair 5, 2nd Floor [place] 08/25/2024 1:00 PM SALES OPERATIONS LEAD Office Visit [facility] Gynecologic Oncology [place] [address] [address] Edilia Pettit, CHELY [address] [address] 08/25/2024 1:30 PM SALES OPERATIONS LEAD Appointment Randy [facility] Infusion Center 2nd [address] [place] [address] Aviva Humphries MD [address] [facility] [address] [place] [phone] Infusion Chair 1, 2nd [facility] 09/01/2024 10:45 AM SALES OPERATIONS LEAD Appointment [facility] Nuclear Medicine [address] [place] [address] [id number] Edilia Pettit, MODELING DIRECTOR [address] [address] Pending Results Name Type Priority Associated Diagnoses Date /Time URINALYSIS WITH REFLEX MICROSCOPIC Lab Routine Malignant neoplasm of ovary, unspecified laterality 01/27/2024 10:50 AM CDT Scheduled Orders Name Type Priority Associated Diagnoses Orde r Schedule CANCER ANTIGEN 125 Lab Routine Malignant neoplasm of ovary, unspecified laterality Added to HDF configuration to grandchildren will have ORD item [id number] populate with time. for 1 Occurrences starting 01/27/2024 until 01/27/2024 URINALYSIS WITH REFLEX MICROSCOPIC Lab Routine Malignant neoplasm of ovary, unspecified laterality ONE TIME for 1 Occurrences starting 01/27/2024 until 01/27/2024 documented as of this encounter Procedures Procedure Name Priority Date/Time Associated Diagnosis Comments URINALYSIS WITH REFLEX CULTURE Routine 01/27/2024 10:50 AM CDT Malignant neoplasm of ovary, unspecified laterality DIFFERENTIAL, MANUAL Stat 01/27/2024 10:48 AM CDT Malignant neoplasm of ovary, unspecified laterality CBC WITH DIFFERENTIAL Stat 01/27/2024 10:48 AM CDT Malignant neoplasm of ovary, unspecified laterality CANCER ANTIGEN 125 Routine 01/27/2024 10 :48 AM CDT Malignant neoplasm of ovary, unspecified laterality COMPREHENSIVE METABOLIC PANEL Stat 01/27/2024 10:48 AM CDT Malignant neoplasm of ovary, unspecified laterality documented in this encounter Results * (ABNORMAL) URINALYSIS WITH REFLEX CULTURE (01/27/2024 10:50 AM CDT) COLOR UA Colorless(A ) Pale to Dark Yellow 01/27/2024 11:38 AM T [facility] CLARITY UA Clear Clear 01/27/2024 11:38 AM T [employer] [facility] SPECIFIC GRAVITY UA 1.002(L) 1.003 - 1.035 01/27/2024 11:38 AM T [facility] [facility] PH UA 6.0 5.0 - 8.0 01/27/2024 11:38 AM T [employer] [facility] - . [facility] LEUKOCYTE ESTERASE UA Negative Negative 01/27/2024 11:38 AM T [employer] [facility] - . [facility] NITRITE UA Negative Negative 01/27/2024 11:38 AM T [employer] [facility] - . [facility] PROTEIN UA Negative Negative 01/27/2024 11:38 AM CDT [facility] GLUCOSE UA Negative Negative 01/27/2024 11:38 AM CDT [facility] KETONES UA Negative Negative 01/27/2024 11:38 AM CDT [facility] UROBILINOGEN UA Normal <2.0 mg/dL 11:38 AM CDT [facility] BILIRUBIN UA Negative Negative 01/27/2024 11:38 AM CDT [facility] BLOOD UA Negative Negative 01/27/2024 11:38 AM CDT [facility] - [facility] Urine URINE SPECIMEN OBTAINED BY CLEAN CATCH PROCEDURE / Unknown Collection / Unknown 01/27/2024 10:50 AM CDT 01/27/2024 11:25 AM CDT Aviva Humphries MD URINE ORDERABLES [facility] CLIA# [id number] [address] [place] [address] * MANUAL DIFFERENTIAL (01/27/2024 10:48 AM CDT) PLATELET EST. Consistent w Count 01/27/2024 12:40 PM CDT [facility] ANISOCYTOSIS 2+ /hpf 01/27/2024 12:40 PM CDT [facility] - [facility] POIKILOCYTES 1+ /hpf 01/27/2024 12:40 PM CDT [facility] - . [facility] MACROCYTES 2+ /hpf 01/27/2024 12:40 PM CDT [facility] - . [facility] Blood Collection / Unknown 01/27/2024 10:48 AM CDT 01/27/2024 12:26 PM CDT Aviva Humphries MD HEMATOLOGY ORDERABLE S COM [facility] CLIA# [id number] [address] [place] [address] * CANCER ANTIGEN 125 (01/27/2024 10:48 AM CDT) CA 125 7 <35 U/mL [facility] Comment: This test was performed using the Siemens Chemiluminescent method. Values obtained from different assay methods cannot be used interchangeably. CA 125 levels, regardless of value, should not be interpreted as absolute evidence of the presence or absence of disease. Test Performed at: [facility] ??[id number] Radha Perez MD Blood 01/27/2024 10:4 8 AM CDT 01/27/2024 12:28 PM CDT Aviva Humphries MD CHEMISTRY ORDERABLES [facility] [phone] [facility] [address] * (ABNORMAL) COMPREHENSIVE METABOLIC PANEL (01/27/2024 10:48 AM CDT) SODIUM 141 136 - 145 mmol/L 01/27/2024 1:25 PM CDT [facility] POTASSIUM 4.4 3.5 - 5.0 mmol/L 01/27/2024 1:25 PM CDT [facility] CHLORIDE 105 98 - 107 mmol/L 01/27/2024 1:25 PM CDT [facility] CO2 26 22 - 29 mmol/L 01/27/2024 1:25 PM CDT [facility] CALCIUM 9.5 8.6 - 10.2 mg/dL 01/27/2024 1:25 PM CDT [facility] BUN 7(L) 8 - 23 mg/dL 01/27/2024 1:25 PM CDT [facility] . [facility] CREATININE 0.82 0.51 - 0.95 mg/dL 01/27/2024 1:25 PM CDT [facility] GLUCOSE 96 74 - 99 mg/dL 01/27/2024 1:25 PM CDT [facility] TOTAL PROTEIN 7.7 6.7 - 8.6 g/dL 01/27/2024 1:[address] [facility] ALBUMIN 4.5 3.5 - 5.2 g/dL 01/27/2024 1:[address] [facility] BILIRUBIN TOTAL 0.3 0.2 - 1.1 mg/dL 01/27/2024 1:[address] [facility] ALKALINE PHOSPHATASE 97 35 - 104 U/L 01/27/2024 1:25 PM [facility] AST 26 <33 U/L 01/27/2024 1:[address] [facility] ALT 28 <34 U/L 01/27/2024 1:25 PM [facility] GFR >60 >=60 mL/min/1.7 3 sq meter 01/27/2024 1:25 PM [facility] Comment:eGFR calculated with 2020 CKD-EPI equation. Vegetarian diet, extremely high or low muscle mass, and may affect results. Cystatin C with Glomerular Filtration Rate is a suitable alternative for these patients. ANION GAP 10 8 - 16 mmol/L 01/27/2024 1:25 PM [facility] Blood Collection / Unknown 01/27/2024 10:48 AM CDT 01/27/2024 12:32 PM CDT [facility] - 01/27/2024 1:25 PM CDT Samples containing indocyanine green cause interferences on Total and/or Direct Bilirubin and must not be measured. Aviva Humphries MD CHEMISTRY ORDERABLES [facility] CLIA# [id number] [address] [facility] [address] [address] * (ABNORMAL) CBC WITH DIFFERENTIAL (01/27/2024 10:48 AM CDT) Pathologist [facility] WBC 4.5 4.0 - 9.8 K/uL 01/27/2024 12:28 PM CDT [facility] RBC 2.87(L) 3.90 - 4.90 M/uL 01/27/2024 12:28 PM CDT [facility] HEMOGLOBIN 10.7(L) 11.8 - 14.8 g/dL 01/27/2024 12:28 PM CDT [facility] HEMATOCRIT 31.5(L) 35.5 - 44.0 % 01/27/2024 12:28 PM CDT [facility] MCV 109.8(H) 82.0 - 99.0 fL 01/27/2024 12:28 PM CDT [facility] MCH 37.3(H) 27.2 - 32.6 pg 01/27/2024 12:28 PM CDT [facility] . [facility] MCHC 34.0 31.5 - 35.5 g/dL 01/27/2024 12:28 PM CDT [facility] RDW 20.4(H) 11.5 - 14.5 % 01/27/2024 12:28 PM CDT [facility] RDW-STDEV 80.2(H) 37.1 - 48.7 fL 01/27/2024 12:28 PM CDT [facility] PLATELETS 231 140 - 350 K/uL 01/27/2024 12:28 PM CDT [facility] MPV 10.2 9.3 - 12.4 fL 01/27/2024 12:28 PM CDT [facility] NEUTROPHILS 50 % 01/27/2024 12:28 PM CDT [facility] LYMPHOCYTES 41 % 01/27/2024 12:28 PM CDT [facility] MONOCYTES 7 % 01/27/2024 12:28 PM CDT [facility] EOSINOPHILS 1 % 01/27/2024 12:28 PM CDT [facility] BASOPHILS 1 % 01/27/2024 12:28 PM CDT [facility] IMMATURE GRANULOCYTES 0 % 01/27/2024 12:28 PM CDT [facility] - . [facility] NEUTROPHIL ABSOLUTE 2.24 1.90 - 7.00 K/uL 01/27/2024 12:28 PM CDT [facility] - . [facility] LYMPHOCYTE ABSOLUTE 1.83 0.70 - 4.50 K/uL 01/27/2024 12:28 PM CDT [facility] - . [facility] MONOCYTE ABSOLUTE 0.31 0.10 - 1.30 K/uL 01/27/2024 12:28 PM CDT [facility] EOSINOPHIL ABSOLUTE 0.03 0.00 - 0.70 K/uL 01/27/2024 12:28 PM CDT [facility] BASOPHILS ABSOLUTE 0.03 0.00 - 0.20 K/uL 01/27/2024 12:28 PM CDT [facility] - . [facility] IMMATURE GRANULOCYTES ABSOLUTE 0.01 0.00 - 0.03 K/uL 01/27/2024 12:28 PM CDT [facility] Blood Collection / Unknown 01/27/2024 10:48 AM CDT 01/27/2024 12:26 PM CDT Aviva Humphries MD HEMATOLOGY ORDERABLE S [facility]# [id number] 5 [facility] [address] documented in this encounter Visit Diagnoses Diagnosis Malignant neoplasm of ovary, unspecified laterality- Primary documented in this encounter Administered Medications Inactive Administered Medications - up to 3 most recent administrations Medication Order MAR Action Action Date Dose Rate Site alteplase (CATHFLO ACTIVASE) injection 2 mg 2 mg, Dwell, ONE TIME ONLY, 1 dose, On Thu01/27/24 at 1100, Routine Given 01/27/2024 11:02 AM CDT 2 mg Port sterile water injection See Admin Instructions, ONE TIME ONLY, 1 dose, On Thu01/27/24 at 1100, Routine Given 01/27/2024 11:03 AM CDT 10 mL Por t documented in this encounter Care Teams Draftsperson Relationship Specialty Start Date End Date Shilo Soares MD [address] [place] [phone] PCP - General Internal Medicine 04/24/23 documented as of this encounter
--- OUTSIDE RECORDS SUMMARY | 2024-07-26 23:50 | XMS_ITS | Encounter Summary ---
Author Organization [facility] Address [address] [place] [address] Care Team Providers Care Client Delivery Specialist Name Role Phone Shilo Soares MD Primary Care Provider [phone] Encounter Details Date Type Department Care Team (Late Contact Info) Description 01/27/2024 External Device Data STL ABSTRACTION Provider, Abstract [...] (Late Contact Info) Description 08/04/2024 1:00 PM COLLAR TAILOR Appointment [facility] 2nd [place] [address] [place] [address] Aviva Humphries MD [address] [place] [address] Infusion Chair 5, 2nd Floor [place] 08/25/2024 1:00 PM COLLAR TAILOR Office Visit [facility] [address] [place] [address] Edilia Pettit, CHELY [address] [place] [phone] 08/25/2024 1:30 PM COLLAR TAILOR Appointment [facility] 2nd Fl [address] [place] [address] Aviva Humphries MD [address] [place] [address] Infusion Chair 1, 2nd Floor [place] 09/01/2024 10:45 AM COLLAR TAILOR Appointment [facility] Nuclear Medicine [address] [place] [address] [id number] Edilia Pettit, CHELY [address] [facility] [address] [place] [address] documented as of this encounter Visit Diagnoses Not on filedocumented in this encounter Care Teams Client Delivery Specialist Relationship Specialty Start Date End Date Shilo Soares MD [address] [place] [phone] PCP - General Internal Medicine 04/24/23 documented as of this encounter
--- OUTSIDE RECORDS SUMMARY | 2024-07-26 23:50 | XMS_ITS | Encounter Summary ---
Author Organization [facility] Address [address] [place] [address] Care Team Providers Care Loan Service Officer Name Role Phone Shilo Soares MD Primary Care Provider [phone] Encounter Details Date Type Department Care Team [...] (Late Contact Info) Description 08/04/2024 1:00 PM HELP DESK ASSISTANT Appointment [facility] 2nd [place] [address] [place] [address] Aviva Humphries MD [address] [place] [address] Infusion Chair 5, 2nd Floor [place] 08/25/2024 1:00 PM HELP DESK ASSISTANT Office Visit [facility] Gynecologic Oncology Hall [address] [place] [address] Edilia Pettit, CHELY [address] [facility] [facility] [address] [place] [phone] 08/25/2024 1:30 PM HELP DESK ASSISTANT Appointment [facility] 2nd Fl [address] [place] [address] Aviva Humphries MD [address] [place] [address] Infusion Chair 1, 2nd Floor [place] 09/01/2024 10:45 AM HELP DESK ASSISTANT Appointment Randy [facility] Nuclear Medicine [address] [place] [address] [id number] Edilia Pettit, CHELY [address] [facility] [address] [place] [address] documented as of this encounter Visit Diagnoses Not on filedocumented in this encounter Care Teams Loan Service Officer Relationship Specialty Start Date End Date Shilo Soares MD [address] [place] [address] PCP - General Internal Medicine 04/24/23 documented as of this encounter
--- OUTSIDE RECORDS SUMMARY | 2024-07-26 23:50 | XMS_ITS | Encounter Summary ---
Author Organization [facility] Address [address] [place] [address] Care Team Providers Care Director Community Health Nursing Name Role Phone Shilo Soares MD Primary Care Provider [phone] Encounter Details Date Type Department Care Team [...] Contact Info) Description 08/04/2024 1:00 PM MAINTENANCE TRUCK DRIVER Appointment [facility] 2nd [place] [address] [place] [address] Aviva Humphries MD [address] [place] [address] Infusion Chair 5, 2nd Floor [place] 08/25/2024 1:00 PM MAINTENANCE TRUCK DRIVER Office Visit [facility] Gynecologic Oncology Hall [address] [place] [address] Edilia Pettit, CHELY [address] [place] [phone] 08/25/2024 1:30 PM MAINTENANCE TRUCK DRIVER Appointment [facility] 2nd Fl [address] [place] [address] Aviva Humphries MD [address] [address] [facility] [address] [place] [address] Infusion Chair 1, 2nd Floor [place] 09/01/2024 10:45 AM MAINTENANCE TRUCK DRIVER Appointment Randy [facility] Nuclear Medicine [address] [place] [address] [id number] Edilia Pettit, CHELY [address] [facility] [address] [place] [address] documented as of this encounter Visit Diagnoses Not on filedocumented in this encounter Care Teams Director Community Health Nursing Relationship Specialty Start Date End Date Shilo Soares MD [address] [place] [address] PCP - General Internal Medicine 04/24/23 documented as of this encounter
--- OUTSIDE RECORDS SUMMARY | 2024-07-26 23:50 | XMS_ITS | Encounter Summary ---
Author Organization [facility] Address [address] [place] [address] Care Team Providers Care Assistant Professor Of Nursing Name Role Phone Shilo Soares MD Primary Care Provider [phone] Encounter Details Date Type Department Care Team [...] (Late Contact Info) Description 08/04/2024 1:00 PM RITUAL CIRCUMCISER Appointment [facility] 2nd [facility] [address] [place] [address] Aviva Humphries MD [address] [place] [address] Infusion Chair 5, 2nd Floor [place] 08/25/2024 1:00 PM RITUAL CIRCUMCISER Office Visit [facility]necologic On[facility] Hall [address] [place] [address] Edilia Pettit, CHELY [address] [facility] [address] [place] [phone] 08/25/2024 1:30 PM RITUAL CIRCUMCISER Appointment [facility] 2nd Fl [address] [place] [address] Aviva Humphries MD [address] [place] [address] Infusion Chair 1, 2nd Floor [place] 09/01/2024 10:45 AM RITUAL CIRCUMCISER Appointment Randy [facility] Nuclear Medicine [address] [place] [address] [id number] Edilia Pettit, CHELY [address] [facility] [address] [place] [address] documented as of this encounter Visit Diagnoses Not on filedocumented in this encounter Care Teams Assistant Professor Of Nursing Relationship Specialty Start Date End Date Shilo Soares MD [address] [place] [address] PCP - General Internal Medicine 04/24/23 documented as of this encounter
--- OUTSIDE RECORDS SUMMARY | 2024-07-26 23:50 | XMS_ITS | Encounter Summary ---
Author Organization [facility] Address [address] [place] [address] Care Team Providers Care Health Aid Name Role Phone Shilo Soares MD Primary Care Provider [phone] Encounter Details Date Type Department Care Team (Late Contact Info) Description 02/03/2024 External Device Data STL ABSTRACTION Provider, Abstract [...] Contact Info) Description 08/04/2024 1:00 PM HYDRAULIC BILLET MAKER Appointment [facility] 2nd [place] [address] [place] [address] Aviva Humphries MD [address] [place] [address] Infusion Chair 5, 2nd Floor [place] 08/25/2024 1:00 PM HYDRAULIC BILLET MAKER Office Visit [facility] Gynecologic Oncology Hall [address] [place] [address] Edilia Pettit, CHELY [address] [facility] [address] [place] [address] 08/25/2024 1:30 PM HYDRAULIC BILLET MAKER Appointment [facility] 2nd Fl [address] [place] [address] Aviva Humphries MD [address] [facility] [address] [place] [address] Infusion Chair 1, 2nd Floor [place] 09/01/2024 10:45 AM HYDRAULIC BILLET MAKER Appointment Randy [facility] Nuclear Medicine [address] [place] [address] [id number] Edilia Pettit, CHELY [address] [facility] [address] [place] [address] documented as of this encounter Visit Diagnoses Not on filedocumented in this encounter Care Teams Health Aid Relationship Specialty Start Date End Date Shilo Soares MD [address] [place] [address] PCP - General Internal Medicine 04/24/23 documented as of this encounter
--- OUTSIDE RECORDS SUMMARY | 2024-07-26 23:50 | XMS_ITS | Encounter Summary ---
Author Organization [facility] Address [address] [place] [address] Care Team Providers Care [place] Name Role Phone Shilo Soares MD Primary Care Provider [phone] Encounter Details Date Type Department Care Team (Late Contact Info) Description 02/04/2024 External Device Data STL ABSTRACTION Provider, Abstract [...] (Late Contact Info) Description 08/04/2024 1:00 PM LAB ENGINEER Appointment [facility] 2nd N[place] [address] [place] [address] Aviva Humphries MD [address] [place] [address] Infusion Chair 5, 2nd Floor [place] 08/25/2024 1:00 PM LAB ENGINEER Office Visit [facility] Gynecologic Oncology Hall [address] [place] [address] Edilia Pettit, CHELY [address] [facility] [address] [place] [address] 08/25/2024 1:30 PM LAB ENGINEER Appointment [facility] 2nd Fl [address] [place] [address] Aviva Humphries MD [address] [place] [address] Infusion Chair 1, 2nd Floor [place] 09/01/2024 10:45 AM LAB ENGINEER Appointment Randy [facility] Nuclear Medicine [address] [place] [address] [id number] Edilia Pettit, CHELY [address] [facility] [address] [place] [address] documented as of this encounter Visit Diagnoses Not on filedocumented in this encounter Care Teams [place] Relationship Specialty Start Date End Date Shilo Soares MD [address] [place] [address] PCP - General Internal Medicine 04/24/23 documented as of this encounter
--- OUTSIDE RECORDS SUMMARY | 2024-07-26 23:50 | XMS_ITS | Encounter Summary ---
Author Organization [facility] Address [address] [place] [address] Care Team Providers Care Material Reprocessing Associate Name Role Phone Shilo Soares MD Primary Care Provider [phone] Encounter Details Date Type Department Care Team [...] Contact Info) Description 08/04/2024 1:00 PM DIRECTOR OF MEDICAL EDUCATION Appointment [facility] [address] [place] [address] Aviva Humphries MD [address] [place] [address] Infusion Chair 5, 2nd Floor [place] 08/25/2024 1:00 PM DIRECTOR OF MEDICAL EDUCATION Office Visit [facility] Gynecologic Oncology Hall [address] [place] [address] Edilia Pettit, CHELY [address] [place] [address] 08/25/2024 1:30 PM DIRECTOR OF MEDICAL EDUCATION Appointment [facility] 2nd Fl [address] [place] [address] Aviva Humphries MD [address] [place] [address] Infusion Chair 1, 2nd Floor [place] 09/01/2024 10:45 AM DIRECTOR OF MEDICAL EDUCATION Appointment [facility] Nuclear Medicine [address] [place] [address] [id number] Edilia Pettit, CHELY [address] [facility] [address] [place] [address] documented as of this encounter Visit Diagnoses Not on filedocumented in this encounter Care Teams Material Reprocessing Associate Relationship Specialty Start Date End Date Shilo Soares MD [address] [place] [address] PCP - General Internal Medicine 04/24/23 documented as of this encounter
--- OUTSIDE RECORDS SUMMARY | 2024-07-26 23:50 | XMS_ITS | Encounter Summary ---
Author Organization [facility] Address [address] [place] [address] Care Team Providers Care Senior Software Systems Engineer Name Role Phone Shilo Soares MD Primary Care Provider [phone] Encounter Details Date Type Department Care Team [...] (Late Contact Info) Description 08/04/2024 1:00 PM ALMOND BLANCHER OPERATOR Appointment [facility] Nm [address] [place] [address] Aviva Humphries MD [address] [place] [address] Infusion Chair 5, 2nd Floor [place] 08/25/2024 1:00 PM ALMOND BLANCHER OPERATOR Office Visit [facility] Gynecologic Oncology Hall [address] [place] [address] Edilia Pettit, CHELY [address] [facility] [address] [place] [address] 08/25/2024 1:30 PM ALMOND BLANCHER OPERATOR Appointment [facility] 2nd Fl [address] [place] [address] Aviva Humphries MD [address] [place] [address] Infusion Chair 1, 2nd Floor [place] 09/01/2024 10:45 AM ALMOND BLANCHER OPERATOR Appointment [facility] Nuclear Medicine [address] [place] [address] [id number] Edilia Pettit, CHELY [address] [facility] [address] [place] [address] documented as of this encounter Visit Diagnoses Not on filedocumented in this encounter Care Teams Senior Software Systems Engineer Relationship Specialty Start Date End Date Shilo Soares MD [address] [place] [address] PCP - General Internal Medicine 04/24/23 documented as of this encounter
--- OUTSIDE RECORDS SUMMARY | 2024-07-26 23:50 | XMS_ITS | Encounter Summary ---
Author Organization [facility] Address [address] [place] [address] Care Team Providers Care Spring Internship Name Role Phone Shilo Soares MD Primary Care Provider [phone] Encounter Details Date Type Department Care Team [...] (Late Contact Info) Description 08/04/2024 1:00 PM SCREW MACHINE SETTER Appointment [facility] [place] [address] [place] [address] Aviva Humphries MD [address] [place] [address] Infusion Chair 5, 2nd Floor [place] 08/25/2024 1:00 PM SCREW MACHINE SETTER Office Visit [facility] Gynecologic Oncology Hall [address] [place] [address] Edilia Pettit, CHELY [address] [place] [address] 08/25/2024 1:30 PM SCREW MACHINE SETTER Appointment [facility] 2nd Fl [address] [place] [address] Aviva Humphries MD [address] [place] [address] Infusion Chair 1, 2nd Floor [place] 09/01/2024 10:45 AM SCREW MACHINE SETTER Appointment [facility] Nuclear Medicine [address] [place] [address] [id number] Edilia Pettit, CHELY [address] [facility] [address] [place] [address] documented as of this encounter Visit Diagnoses Not on filedocumented in this encounter Care Teams Spring Internship Relationship Specialty Start Date End Date Shilo Soares MD [address] [place] [address] PCP - General Internal Medicine 04/24/23 documented as of this encounter
--- OUTSIDE RECORDS SUMMARY | 2024-07-26 23:50 | XMS_ITS | Encounter Summary ---
Author Organization [facility] Address [address] [place] [address] Care Team Providers Care Carver Hand Name Role Phone Shilo Soares MD Primary Care Provider [phone] Encounter Details Date Type Department Care Team (Late Contact Info) Description 02/06/2024 External Device Data STL ABSTRACTION Provider, Abstract [...] (Late Contact Info) Description 08/04/2024 1:00 PM TRUCK SERVICE MANAGER Appointment [facility] [address] [place] [address] Aviva Humphries MD [address] [place] [address] Infusion Chair 5, 2nd Floor [place] 08/25/2024 1:00 PM TRUCK SERVICE MANAGER Office Visit [facility] Gynecologic Oncology Hall [address] [place] [address] Edilia Pettit, CHELY [address] [place] [address] 08/25/2024 1:30 PM TRUCK SERVICE MANAGER Appointment [facility] 2nd Fl [address] [place] [address] Aviva Humphries MD [address] [place] [address] Infusion Chair 1, 2nd Floor [place] 09/01/2024 10:45 AM TRUCK SERVICE MANAGER Appointment [facility] Nuclear Medicine [address] [place] [address] [id number] Edilia Pettit, CHELY [address] [facility] [address] [place] [address] documented as of this encounter Visit Diagnoses Not on filedocumented in this encounter Care Teams Carver Hand Relationship Specialty Start Date End Date Shilo Soares MD [address] [place] [address] PCP - General Internal Medicine 04/24/23 documented as of this encounter
--- OUTSIDE RECORDS SUMMARY | 2024-07-26 23:50 | XMS_ITS | Encounter Summary ---
Author Organization [facility] Address [address] [place] [address] Care Team Providers Care Sock And Stocking Ironer Name Role Phone Shilo Soares MD Primary Care Provider [phone] Encounter Details Date Type Department Care Team [...] (Late Contact Info) Description 08/04/2024 1:00 PM CORPORATE TAX MANAGER Appointment [facility] [address] [place] [address] Aviva Humphries MD [address] [place] [address] Infusion Chair 5, 2nd Floor [place] 08/25/2024 1:00 PM CORPORATE TAX MANAGER Office Visit [facility] Gynecologic Oncology Hall [address] [place] [address] Edilia Pettit, CHELY [address] [facility] [address] [place] [address] 08/25/2024 1:30 PM CORPORATE TAX MANAGER Appointment [facility] 2nd Fl [address] [place] [address] Aviva Humphries MD [address] [place] [address] Infusion Chair 1, 2nd Floor [place] 09/01/2024 10:45 AM CORPORATE TAX MANAGER Appointment [facility] Nuclear Medicine [address] [place] [address] [id number] Edilia Pettit, CHELY [address] [facility] [address] [place] [address] documented as of this encounter Visit Diagnoses Not on filedocumented in this encounter Care Teams Sock And Stocking Ironer Relationship Specialty Start Date End Date Shilo Soares MD [address] [place] [address] PCP - General Internal Medicine 04/24/23 documented as of this encounter
--- OUTSIDE RECORDS SUMMARY | 2024-07-26 23:50 | XMS_ITS | Encounter Summary ---
Author Organization [facility] Address [address] [place] [address] Care Team Providers Care Transfer Table Operator Helper Name Role Phone Shilo Soares MD Primary Care Provider [phone] Encounter Details Date Type Department Care Team [...] Contact Info) Description 08/04/2024 1:00 PM DIRECTOR STRATEGIC PLANNING Appointment [facility] [place] [address] [place] [address] Aviva Humphries MD [address] [place] [address] Infusion Chair 5, 2nd Floor [place] 08/25/2024 1:00 PM DIRECTOR STRATEGIC PLANNING Office Visit [facility] Gynecologic Oncology Hall [address] [place] [address] Edilia Pettit, CHELY [address] [facility] [place] [address] 08/25/2024 1:30 PM DIRECTOR STRATEGIC PLANNING Appointment [facility] 2nd Fl [address] [place] [address] Aviva Humphries MD [address] [facility] [place] [address] Infusion Chair 1, 2nd Floor [place] 09/01/2024 10:45 AM DIRECTOR STRATEGIC PLANNING Appointment [facility] Nuclear Medicine [address] [place] [address] [id number] Edilia Pettit, CHELY [address] [facility] [address] [place] [address] documented as of this encounter Visit Diagnoses Not on filedocumented in this encounter Care Teams Transfer Table Operator Helper Relationship Specialty Start Date End Date Shilo Soares MD [address] [place] [address] PCP - General Internal Medicine 04/24/23 documented as of this encounter
--- OUTSIDE RECORDS SUMMARY | 2024-07-26 23:50 | XMS_ITS | Encounter Summary ---
Author Organization [facility] Address [address] [place] [address] Care Team Providers Care Adjustment Examiner Name Role Phone Shilo Soares MD Primary Care Provider [phone] Encounter Details Date Type Department Care Team [...] (Late Contact Info) Description 08/04/2024 1:00 PM CHIROPRACTIC CARE Appointment [facility] [place] [address] [place] [address] Aviva Humphries MD [address] [place] [address] Infusion Chair 5, 2nd Floor [place] 08/25/2024 1:00 PM CHIROPRACTIC CARE Office Visit [facility] Gynecologic Oncology Hall [address] [place] [address] Edilia Pettit, CHELY [address] [address] [place] [address] 08/25/2024 1:30 PM CHIROPRACTIC CARE Appointment [facility] 2nd Fl [address] [place] [address] Aviva Humphries MD [address] [facility] [address] [facility] [address] [place] [address] Infusion Chair 1, 2nd Floor [place] 09/01/2024 10:45 AM CHIROPRACTIC CARE Appointment [facility] Nuclear Medicine [address] [place] [address] [id number] Edilia Pettit, CHELY [address] [address] [facility] [address] [place] [address] documented as of this encounter Visit Diagnoses Not on filedocumented in this encounter Care Teams Adjustment Examiner Relationship Specialty Start Date End Date Shilo Soares MD [address] [place] [address] PCP - General Internal Medicine 04/24/23 documented as of this encounter
--- OUTSIDE RECORDS SUMMARY | 2024-07-26 23:50 | XMS_ITS | Encounter Summary ---
Author Organization [facility] Address [address] [place] [address] Care Team Providers Care Screen Writer Name Role Phone Shilo Soares MD Primary Care Provider [phone] Encounter Details Date Type Department Care Team [...] (Late Contact Info) Description 08/04/2024 1:00 PM PINION POLISHER Appointment [facility] [address] [place] [address] Aviva Humphries MD [address] [place] [address] Infusion Chair 5, 2nd Floor [place] 08/25/2024 1:00 PM PINION POLISHER Office Visit [facility] Gynecologic Oncology Hall [address] [place] [address] Edilia Pettit, CHELY [address] [place] [address] 08/25/2024 1:30 PM PINION POLISHER Appointment [facility] 2nd Fl [address] [place] [address] Aviva Humphries MD [address] [place] [address] Infusion Chair 1, 2nd Floor [place] 09/01/2024 10:45 AM PINION POLISHER Appointment [facility] Nuclear Medicine [address] [place] [address] [id number] Edilia Pettit, CHELY [address] [facility] [address] [place] [address] documented as of this encounter Visit Diagnoses Not on filedocumented in this encounter Care Teams Screen Writer Relationship Specialty Start Date End Date Shilo Soares MD [address] [place] [address] PCP - General Internal Medicine 04/24/23 documented as of this encounter
--- OUTSIDE RECORDS SUMMARY | 2024-07-26 23:50 | XMS_ITS | Encounter Summary ---
Author Organization [facility] Address [address] [place] [address] Care Team Providers Care Felt Strip Finisher Name Role Phone Shilo Soares MD Primary Care Provider [phone] Encounter Details Date Type Department Care Team [...] (Late Contact Info) Description 08/04/2024 1:00 PM METAL FURNITURE GLAZIER Appointment [facility] [place] [address] [place] [address] Aviva Humphries MD [address] [place] [address] Infusion Chair 5, 2nd Floor [place] 08/25/2024 1:00 PM METAL FURNITURE GLAZIER Office Visit [facility] Gynecologic Oncology Hall [address] [place] [address] Edilia Pettit, CHELY [address] [place] [address] 08/25/2024 1:30 PM METAL FURNITURE GLAZIER Appointment [facility] 2nd Fl [address] [place] [address] Aviva Humphries MD [address] [place] [address] Infusion Chair 1, 2nd Floor [place] 09/01/2024 10:45 AM METAL FURNITURE GLAZIER Appointment [facility] Nuclear Medicine [address] [place] [address] [id number] Edilia Pettit, CHELY [address] [facility] [address] [place] [address] documented as of this encounter Visit Diagnoses Not on filedocumented in this encounter Care Teams Felt Strip Finisher Relationship Specialty Start Date End Date Shilo Soares MD [address] [place] [address] PCP - General Internal Medicine 04/24/23 documented as of this encounter
--- OUTSIDE RECORDS SUMMARY | 2024-07-26 23:50 | XMS_ITS | Encounter Summary ---
Author Organization [facility] Address [address] [place] [address] Care Team Providers Care Ophthalmic Medical Technician Name Role Phone Shilo Soares MD Primary Care Provider [phone] Encounter Details Date Type Department Care Team [...] (Late Contact Info) Description 08/04/2024 1:00 PM HEAD WAITER/WAITRESS Appointment [facility] [address] [place] [address] Aviva Humphries MD [address] [place] [address] Infusion Chair 5, 2nd Floor Hall 08/25/2024 1:00 PM HEAD WAITER/WAITRESS Office Visit [facility] Gynecologic Oncology Hall [address] [place] [address] Edilia Pettit, CHELY [address] [facility] [facility] [address] [place] [address] 08/25/2024 1:30 PM HEAD WAITER/WAITRESS Appointment [facility] 2nd Fl [address] [place] [address] Aviva Humphries MD [address] [place] [address] Infusion Chair 1, 2nd Floor [place] 09/01/2024 10:45 AM HEAD WAITER/WAITRESS Appointment [facility] Nuclear Medicine [address] [place] [address] [id number] Edilia Pettit, CHELY [address] [facility] [address] [place] [address] documented as of this encounter Visit Diagnoses Not on filedocumented in this encounter Care Teams Ophthalmic Medical Technician Relationship Specialty Start Date End Date Shilo Soares MD [address] [place] [address] PCP - General Internal Medicine 04/24/23 documented as of this encounter
--- OUTSIDE RECORDS SUMMARY | 2024-07-26 23:50 | XMS_ITS | Encounter Summary ---
Author Organization [facility] Address [address] [place] [address] Care Team Providers Care Osteology Teacher Name Role Phone Shilo Soares MD Primary Care Provider [phone] Encounter Details Date Type Department Care Team [...] Contact Info) Description 08/04/2024 1:00 PM POWER EQUIPMENT TECHNOLOGY INSTRUCTOR Appointment [facility] [place] [address] [place] [address] Aviva Humphries MD [address] [place] [address] Infusion Chair 5, 2nd Floor [place] 08/25/2024 1:00 PM POWER EQUIPMENT TECHNOLOGY INSTRUCTOR Office Visit [facility] Gynecologic Oncology Hall [address] [place] [address] Edilia Pettit, CHELY [address] [facility] [address] [address] [place] [address] 08/25/2024 1:30 PM POWER EQUIPMENT TECHNOLOGY INSTRUCTOR Appointment [facility] 2nd Fl [address] [place] [address] Aviva Humphries MD [address] [facility] [facility] [address] [place] [address] Infusion Chair 1, 2nd Floor [place] 09/01/2024 10:45 AM POWER EQUIPMENT TECHNOLOGY INSTRUCTOR Appointment [facility] Nuclear Medicine [address] [place] [address] [id number] Edilia Pettit, CHELY [address] [facility] [address] [place] [address] documented as of this encounter Visit Diagnoses Not on filedocumented in this encounter Care Teams Osteology Teacher Relationship Specialty Start Date End Date Shilo Soares MD [address] [place] [address] PCP - General Internal Medicine 04/24/23 documented as of this encounter
--- OUTSIDE RECORDS SUMMARY | 2024-07-26 23:50 | XMS_ITS | Encounter Summary ---
Author Organization [facility] Address [address] [place] [address] Care Team Providers Care Title Searcher Name Role Phone Shilo Soares MD Primary Care Provider [phone] Encounter Details Date Type Department Care Team [...] (Late Contact Info) Description 08/04/2024 1:00 PM SUBSTANCE ABUSE TECHNICIAN Appointment [facility] 2[facility] [place] [address] [place] [address] Aviva Humphries MD [address] [place] [address] Infusion Chair 5, 2nd Floor [place] 08/25/2024 1:00 PM SUBSTANCE ABUSE TECHNICIAN Office Visit [facility] Gynecologic Oncology Hall [address] [place] [address] Edilia Pettit, CHELY [address] [facility] [address] [place] [address] 08/25/2024 1:30 PM SUBSTANCE ABUSE TECHNICIAN Appointment [facility] 2nd Fl [address] [place] [address] Aviva Humphries MD [address] [facility] [address] [place] [address] Infusion Chair 1, 2nd Floor [place] 09/01/2024 10:45 AM SUBSTANCE ABUSE TECHNICIAN Appointment [facility] Nuclear Medicine [address] [place] [address] [id number] Edilia Pettit, CHELY [address] [facility] [address] [place] [address] documented as of this encounter Visit Diagnoses Not on filedocumented in this encounter Care Teams Title Searcher Relationship Specialty Start Date End Date Shilo Soares MD [address] [place] [address] PCP - General Internal Medicine 04/24/23 documented as of this encounter
--- OUTSIDE RECORDS SUMMARY | 2024-07-26 23:50 | XMS_ITS | Encounter Summary ---
Author Organization [facility] Address [address] [place] [address] Care Team Providers Care Starting Sheet Tank Operator Name Role Phone Shilo Soares MD Primary Care Provider [phone] Encounter Details Date Type Department Care Team [...] (Late Contact Info) Description 08/04/2024 1:00 PM STEEL MANAGER Appointment [facility] 2[facility] [place] [address] [place] [address] Aviva Humphries MD [address] [place] [address] Infusion Chair 5, 2nd Floor [place] 08/25/2024 1:00 PM STEEL MANAGER Office Visit [facility] Gynecologic Oncology Hall [address] [place] [address] Edilia Pettit, CHELY [address] [facility] [address] [place] [address] 08/25/2024 1:30 PM STEEL MANAGER Appointment [facility] 2nd Fl [address] [place] [address] Aviva Humphries MD [address] [facility] [address] [place] [address] Infusion Chair 1, 2nd Floor [place] 09/01/2024 10:45 AM STEEL MANAGER Appointment [facility] Nuclear Medicine [address] [place] [address] [id number] Edilia Pettit, CHELY [address] [facility] [address] [place] [address] documented as of this encounter Visit Diagnoses Not on filedocumented in this encounter Care Teams Starting Sheet Tank Operator Relationship Specialty Start Date End Date Shilo Soares MD [address] [place] [address] PCP - General Internal Medicine 04/24/23 documented as of this encounter
--- OUTSIDE RECORDS SUMMARY | 2024-07-26 23:50 | XMS_ITS | Encounter Summary ---
Author Organization [facility] Address [address] [place] [address] Care Team Providers Care Bread Dough Mixer Name Role Phone Shilo Soares MD Primary Care Provider [phone] Encounter Details Date Type Department Care Team [...] (Late Contact Info) Description 08/04/2024 1:00 PM TRACK LAYER HEAD Appointment [facility] [place] [address] [place] [address] Aviva Humphries MD [address] [place] [address] Infusion Chair 5, 2nd Floor Hall 08/25/2024 1:00 PM TRACK LAYER HEAD Office Visit [facility] Gynecologic Oncology Hall [address] [place] [address] Edilia Pettit, CHELY [address] [place] [address] 08/25/2024 1:30 PM TRACK LAYER HEAD Appointment [facility] 2nd Fl [address] [place] [address] Aviva Humphries MD [address] [facility] [address] [place] [address] Infusion Chair 1, 2nd Floor [place] 09/01/2024 10:45 AM TRACK LAYER HEAD Appointment [facility] Nuclear Medicine [address] [place] [address] [id number] Edilia Pettit, CHELY [address] [facility] [address] [place] [address] documented as of this encounter Visit Diagnoses Not on filedocumented in this encounter Care Teams Bread Dough Mixer Relationship Specialty Start Date End Date Shilo Soares MD [address] [place] [address] PCP - General Internal Medicine 04/24/23 documented as of this encounter
--- OUTSIDE RECORDS SUMMARY | 2024-07-26 23:50 | XMS_ITS | Encounter Summary ---
Author Organization [facility] Address [address] [place] [address] Care Team Providers Care Mathematician Research Name Role Phone Shilo Soares MD Primary Care Provider [phone] Encounter Details Date Type Department Care Team [...] (Late Contact Info) Description 08/04/2024 1:00 PM MICA PATCHER Appointment [facility] 2nd [place] [address] [place] [address] Aviva Humphries MD [address] [place] [address] Infusion Chair 5, 2nd Floor Hall 08/25/2024 1:00 PM MICA PATCHER Office Visit [facility] Gynecologic Oncology Hall [address] [place] [address] Edilia Pettit, CHELY [address] [facility] [address] [place] [address] 08/25/2024 1:30 PM MICA PATCHER Appointment [facility] 2nd Fl [address] [place] [address] Aviva Humphries MD [address] [facility] [facility] [address] [place] [address] Infusion Chair 1, 2nd Floor [place] 09/01/2024 10:45 AM MICA PATCHER Appointment [facility] Nuclear Medicine [address] [place] [address] [id number] Edilia Pettit, CHELY [address] [facility] [address] [place] [address] documented as of this encounter Visit Diagnoses Not on filedocumented in this encounter Care Teams Mathematician Research Relationship Specialty Start Date End Date Shilo Soares MD [address] [place] [address] PCP - General Internal Medicine 04/24/23 documented as of this encounter
--- OUTSIDE RECORDS SUMMARY | 2024-07-26 23:50 | XMS_ITS | Encounter Summary ---
Author Organization [facility] Address [address] [place] [address] Care Team Providers Care Technical System Analyst Name Role Phone Shilo Soares MD Primary Care Provider [phone] Encounter Details Date Type Department Care Team [...] (Late Contact Info) Description 08/04/2024 1:00 PM FREIGHT HANDLER Appointment [facility] 2nd [place] [address] [place] [address] Aviva Humphries MD [address] [place] [address] Infusion Chair 5, 2nd Floor Hall 08/25/2024 1:00 PM FREIGHT HANDLER Office Visit [facility] Gynecologic Oncology Hall [address] [place] [address] Edilia Pettit, CHELY [address] [facility] [address] [place] [address] 08/25/2024 1:30 PM FREIGHT HANDLER Appointment [facility] 2nd Fl [address] [place] [address] Aviva Humphries MD [address] [place] [address] Infusion Chair 1, 2nd Floor [place] 09/01/2024 10:45 AM FREIGHT HANDLER Appointment [facility] Nuclear Medicine [address] [place] [address] [id number] Edilia Pettit, CHELY [address] [facility] [address] [place] [address] documented as of this encounter Visit Diagnoses Not on filedocumented in this encounter Care Teams Technical System Analyst Relationship Specialty Start Date End Date Shilo Soares MD [address] [place] [address] PCP - General Internal Medicine 04/24/23 documented as of this encounter
--- OUTSIDE RECORDS SUMMARY | 2024-07-26 23:50 | XMS_ITS | Encounter Summary ---
Author Organization [facility] Address [address] [place] [address] Care Team Providers Care Vice President Of Customer Service Name Role Phone Shilo Soares MD Primary Care Provider [phone] Encounter Details Date Type Department Care Team [...] (Late Contact Info) Description 08/04/2024 1:00 PM SEMICONDUCTOR PACKAGES LEAK TESTER Appointment [facility] 2nd [place] [address] [place] [address] Aviva Humphries MD [address] [place] [address] Infusion Chair 5, 2nd Floor Hall 08/25/2024 1:00 PM SEMICONDUCTOR PACKAGES LEAK TESTER Office Visit [facility] Gynecologic Oncology Hall [address] [place] [address] Edilia Pettit, CHELY [address] [facility] [address] [place] [address] 08/25/2024 1:30 PM SEMICONDUCTOR PACKAGES LEAK TESTER Appointment [facility] 2nd Fl [address] [place] [address] Aviva Humphries MD [address] [place] [address] Infusion Chair 1, 2nd Floor [place] 09/01/2024 10:45 AM SEMICONDUCTOR PACKAGES LEAK TESTER Appointment [facility] Nuclear Medicine [address] [place] [address] [id number] Edilia Pettit, CHELY [address] [facility] [address] [place] [address] documented as of this encounter Visit Diagnoses Not on filedocumented in this encounter Care Teams Vice President Of Customer Service Relationship Specialty Start Date End Date Shilo Soares MD [address] [place] [address] PCP - General Internal Medicine 04/24/23 documented as of this encounter
--- OUTSIDE RECORDS SUMMARY | 2024-07-26 23:50 | XMS_ITS | Encounter Summary ---
Author Organization [facility] Address [address] [place] [address] Care Team Providers Care Multi Punch Operator Name Role Phone Shilo Soares MD Primary Care Provider [phone] Encounter Details Date Type Department Care Team [...] (Late Contact Info) Description 08/04/2024 1:00 PM EMERGENCY DISPATCH OPERATOR Appointment [facility] 2nd Ms [address] [place] [address] Aviva Humphries MD [address] [place] [address] Infusion Chair 5, 2nd Floor Hall 08/25/2024 1:00 PM EMERGENCY DISPATCH OPERATOR Office Visit [facility] Gynecologic Oncology Hall [address] [place] [address] Edilia Pettit, CHELY [address] [facility] [address] [place] [address] 08/25/2024 1:30 PM EMERGENCY DISPATCH OPERATOR Appointment [facility] 2nd Fl [address] [place] [address] Aviva Humphries MD [address] [facility] [address] [place] [address] Infusion Chair 1, 2nd Floor [place] 09/01/2024 10:45 AM EMERGENCY DISPATCH OPERATOR Appointment [facility] Nuclear Medicine [address] [place] [address] [id number] Edilia Pettit, CHELY [address] [facility] [address] [place] [address] documented as of this encounter Visit Diagnoses Not on filedocumented in this encounter Care Teams Multi Punch Operator Relationship Specialty Start Date End Date Shilo Soares MD [address] [place] [address] PCP - General Internal Medicine 04/24/23 documented as of this encounter
--- OUTSIDE RECORDS SUMMARY | 2024-07-26 23:50 | XMS_ITS | Encounter Summary ---
Author Organization [facility] Address [address] [place] [address] Care Team Providers Care [place] Home Laborer Name Role Phone Shilo Soares MD Primary Care Provider [phone] Encounter Details Date Type Department Care Team [...] (Late Contact Info) Description 08/04/2024 1:00 PM ASSOCIATE FIELD SERVICE ENGINEER Appointment [facility] 2nd [place] [address] [place] [address] Aviva Humphries MD [address] [place] [address] Infusion Chair 5, 2nd Floor Hall 08/25/2024 1:00 PM ASSOCIATE FIELD SERVICE ENGINEER Office Visit [facility] Gynecologic Oncology Hall [address] [place] [address] Edliia Pettit, CHELY [address] [facility] [address] [place] [address] 08/25/2024 1:30 PM ASSOCIATE FIELD SERVICE ENGINEER Appointment [facility] 2nd Fl [address] [place] [address] Aviva Humphries MD [address] [facility] [address] [place] [address] Infusion Chair 1, 2nd Floor [place] 09/01/2024 10:45 AM ASSOCIATE FIELD SERVICE ENGINEER Appointment [facility] Nuclear Medicine [address] [place] [address] [id number] Edilia Pettit, CHELY [address] [facility] [address] [place] [address] documented as of this encounter Visit Diagnoses Not on filedocumented in this encounter Care Teams [place] Home Laborer Relationship Specialty Start Date End Date Shilo Soares MD [address] [place] [address] PCP - General Internal Medicine 04/24/23 documented as of this encounter
--- OUTSIDE RECORDS SUMMARY | 2024-07-26 23:50 | XMS_ITS | Encounter Summary ---
Author Organization [facility] Address [address] [place] [address] Care Team Providers Care Diesel Service Apprentice Name Role Phone Shilo Soares MD Primary Care Provider [phone] Encounter Details Date Type Department Care Team [...] (Late Contact Info) Description 08/04/2024 1:00 PM STORE TEAM LEADER Appointment [facility] 2nd [place] [address] [place] [address] Aviva Humphries MD [address] [place] [address] Infusion Chair 5, 2nd Floor Hall 08/25/2024 1:00 PM STORE TEAM LEADER Office Visit [facility] Gynecologic Oncology Hall [address] [place] [address] Edilia Pettit, CHELY [address] [facility] [address] [place] [address] 08/25/2024 1:30 PM STORE TEAM LEADER Appointment [facility] 2nd Fl [address] [place] [address] Aviva Humphries MD [address] [facility] [address] [facility] [address] [place] [address] Infusion Chair 1, 2nd Floor [place] 09/01/2024 10:45 AM STORE TEAM LEADER Appointment [facility] Nuclear Medicine [address] [place] [address] [id number] Edilia Pettit, CHELY [address] [facility] [address] [place] [address] documented as of this encounter Visit Diagnoses Not on filedocumented in this encounter Care Teams Diesel Service Apprentice Relationship Specialty Start Date End Date Shilo Soares MD [address] [place] [address] PCP - General Internal Medicine 04/24/23 documented as of this encounter
--- OUTSIDE RECORDS SUMMARY | 2024-07-26 23:50 | XMS_ITS | Encounter Summary ---
Author Organization [facility] Address [address] [place] [address] Care Team Providers Care Scale Operator Name Role Phone Shilo Soares MD Primary Care Provider [phone] Encounter Details Date Type Department Care Team (Latest Contact Info) Description 01/28/2024 10:45 AM CDT - 01/28/2024 11:59 PM CDT Hospital Encounter [facility] [address] [place] [address] Aviva Humphries MD [address] [place] [address] Discharge Disposition: Home or Self [...] bedtime. 02/26/2021 fluticasone propionate (FLONASE) 50 mcg/spray [place], Suspension nasal inhaler Administer 2 Sprays in each nostril daily. omega-3 fatty acids-fish oil 300-1,000 mg Capsule Take 2 Capsules by mouth daily. olaparib 150 mg tablet Take 2 Tablets (300 mg) by mouth 2 times daily. 120 Tablet 3 11/19/2023 02/15/2024 documented as of this encounter Plan of Treatment Upcoming Encounters Date Type Department Care Team (Late st Contact Info) Description 08/04/2024 1:00 PM PLC TECHNICIAN Appointment [facility] Center 2nd Fl [address] [place] [address] Aviva Humphries MD [address] [place] [address] Infusion Chair 5, 2nd Floor [place] 08/25/2024 1:00 PM PLC TECHNICIAN Office Visit [facility] Gynecologic Oncology Hall [address] [facility] [address] [place] [address] Edilia Pettit, CHELY [address] [facility] [address] [place] [address] 08/25/2024 1:30 PM PLC TECHNICIAN Appointment [facility] [address] [place] [address] Aviva Humphries MD [address] [facility] [address] [place] [address] Infusion Chair 1, 2nd Floor [place] 09/01/2024 10:45 AM PLC TECHNICIAN Appointment [facility] Nuclear Medicine [address] [place] [address] [id number] Edilia Pettit, CHELY [address] [facility] [address] [place] [address] documented as of this encounter Visit Diagnoses Not on filedocumented in this encounter Administered Medications Inactive Administered Medications - up to 3 most recent administrations Medication Order MAR Action Action Date Dose Rate Site sodium chloride flush injection 20 mL 20 mL, IV, ONE TIME ONLY, 1 dose, On Peace 01/28/24 at 1130, Routine Given 01/28/2024 11:23 AM CDT 20 mL documented in this encounter Care Teams Scale Operator Relationship Specialty Start Date End Date Shilo Soares MD [address] [place] [address] PCP - General Internal Medicine 04/24/23 documented as of this encounter
--- OUTSIDE RECORDS SUMMARY | 2024-07-26 23:50 | XMS_ITS | Encounter Summary ---
Author Organization [facility] Address [address] [place] [address] Care Team Providers Care Document Image Technician Name Role Phone Shilo Soares MD Primary Care Provider [phone] Encounter Details Date Type Department Care Team [...] (Late Contact Info) Description 08/04/2024 1:00 PM REPAIR SERVICE DISPATCHER Appointment [facility] 2nd [place] [address] [place] [address] Aviva Humphries MD [address] [place] [address] Infusion Chair 5, 2nd Floor Hall 08/25/2024 1:00 PM REPAIR SERVICE DISPATCHER Office Visit [facility] Gynecologic Oncology Hall [address] [place] [address] Edilia Pettit, CHELY [address] [address] [place] [address] 08/25/2024 1:30 PM REPAIR SERVICE DISPATCHER Appointment [facility] 2nd Fl [address] [place] [address] Aviva Humphries MD [address] [facility] [address] [place] [address] Infusion Chair 1, 2nd Floor [place] 09/01/2024 10:45 AM REPAIR SERVICE DISPATCHER Appointment [facility] Nuclear Medicine [address] [place] [address] [id number] Edilia Pettit, CHELY [address] [facility] [address] [place] [address] documented as of this encounter Visit Diagnoses Not on filedocumented in this encounter Care Teams Document Image Technician Relationship Specialty Start Date End Date Shilo Soares MD [address] [place] [address] PCP - General Internal Medicine 04/24/23 documented as of this encounter
--- OUTSIDE RECORDS SUMMARY | 2024-07-26 23:50 | XMS_ITS | Encounter Summary ---
Author Organization [facility] Address [address] [place] [address] Care Team Providers Care Protective Signal Installer Helper Name Role Phone Shilo Soares MD Primary Care Provider [phone] Encounter Details Date Type Department Care Team [...] (Late Contact Info) Description 08/04/2024 1:00 PM DIAMOND DRILLER HELPER Appointment [facility] 2nd [place] [address] [place] [address] Aviva Humphries MD [address] [place] [address] Infusion Chair 5, 2nd Floor [place] 08/25/2024 1:00 PM DIAMOND DRILLER HELPER Office Visit [facility] Gynecologic Oncology Hall [address] [place] [address] Edilia Pettit, CHELY [address] [facility] [address] [place] [address] 08/25/2024 1:30 PM DIAMOND DRILLER HELPER Appointment [facility] 2nd Fl [address] [place] [address] Aviva Humphries MD [address] [facility] [address] [place] [address] Infusion Chair 1, 2nd Floor [place] 09/01/2024 10:45 AM DIAMOND DRILLER HELPER Appointment [facility] Nuclear Medicine [address] [place] [address] [id number] Edilia Pettit, CHELY [address] [facility] [address] [place] [address] documented as of this encounter Visit Diagnoses Not on filedocumented in this encounter Care Teams Protective Signal Installer Helper Relationship Specialty Start Date End Date Shilo Soares MD [address] [place] [address] PCP - General Internal Medicine 04/24/23 documented as of this encounter
--- OUTSIDE RECORDS SUMMARY | 2024-07-26 23:50 | XMS_ITS | Encounter Summary ---
Author Organization [facility] Address [address] [place] [address] Care Team Providers Care Campus Dean Name Role Phone Shilo Soares MD Primary Care Provider [phone] Reason for Visit * Tx/Med Therapy Plan Auth (Routine) - Authorized Specialty Diagnoses / Procedures Referred By Alison [email or web address] Referred To Contact Diagnoses Malignant neoplasm of ovary, unspecified laterality Encounter for antineoplastic chemotherapy Nausea Procedures NM PACLITAXEL INJECTION NM CARBOPLATIN INJECTION NM INJ MVASI 10 MG NM FOSAPREPITANT INJECTION NM PALONOSETRON HCL NM DEXAMETHASONE SODIUM PHOS NM METHYLPREDNISOLONE INJECTION NM DIPHENHYDRAMINE HCL INJECTIO NM INJECTION, FAMOTIDINE, 20 MG TAXOL, CARBO, MVASI, EMEND, ALOXI, DECADRON, SOLU MEDROL, BENADRYL, PEPCID Aviva Humphries MD [address] [facility] [address] [place] [address] [facility] 2nd Floor [place] [address] [place] [address] Referral ID Status Reason Start Date Expiration Date V isits Requested Visits Authorized [id number] Authorized 05/20/2023 05/26/2025 99 99 Encounter Details Date Type Department Care Team (Latest Contact Info) Description 01/28/2024 11:22 AM CDT - 01/28/2024 11:59 PM CDT Hospital Encounter [facility] Infusion Center 2nd Fl [address] [place] [address] Aviva Humphries MD [address] [facility] [address] [place] [address] Infusion Chair 6, 2nd Floor [...] Sign Reading Time Taken Comments Blood Pressure 140/67 01/28/2024 11:39 AM CDT Pulse 97 01/28/2024 11:39 AM CDT Temperature - - Respiratory Rate - [...] bedtime. 02/26/2021 fluticasone propionate (FLONASE) 50 mcg/spray [place], Suspension nasal inhaler Administer 2 Sprays in each nostril daily. omega-3 fatty acids-fish oil 300-1,000 mg Capsule Take 2 Capsules by mouth daily. olaparib 150 mg tablet Take 2 Tablets (300 mg) by mouth 2 times daily. 120 Tablet 3 11/19/2023 02/15/2024 documented as of this encounter Progress Notes * Ibeth Reyes RN - 01/28/2024 12:00 PM CDT Pt admitted to infusion center [...] condition. Pt verbalized understanding. Discharged home. Next infusion scheduled for 02/17 documented in this encounter Plan of Treatment Upcoming Encounters Date Type Department Care Team (Late st Contact Info) Description 08/04/2024 1:00 PM MANAGER VIDEO Appointment [facility] Infusion Center 2nd Fl [address] [place] [address] Aviva Humphries MD [address] [place] [address] Infusion Chair 5, 2nd Floor [place] 08/25/2024 1:00 PM MANAGER VIDEO Office Visit [facility] Gynecologic Oncology [place] [address] [facility] [address] [place] [address] Edilia Pettit, CHELY [address] [facility] [address] [place] [address] 08/25/2024 1:30 PM MANAGER VIDEO Appointment [facility] [address] [place] [address] Aviva Humphries MD [address] [facility] [address] [facility] [place] [address] Infusion Chair 1, [address] [facility] 09/01/2024 10:45 AM MANAGER VIDEO Appointment [facility] Nuclear Medicine [address] [place] [address] [id number] Edilia Pettit, CHELY [address] [address] documented as of this encounter [...] ONLY, 1 dose, On Peace 01/28/24 at 1145, Routine Rate Verify 01/28/2024 12:14 PM CDT 291.8 mL/hr New Bag 01/28/2024 12:14 PM CDT 773 mg 291.8 mL/hr sodium chloride 0.9% infusion IV, at 30-999 mL/hr, CONTINUOUS, Starting on Peace 01/28/24 at 1145, Until 01/29/24 at 0305, Routine Rate Change 01/28/2024 12:44 PM CDT 300 mL/hr New Bag 01/28/2024 11:42 AM CDT 30 mL/hr 30 mL/hr documented in this encounter Care Teams Campus Dean Relationship Specialty Start Date End Date Shilo Soares MD [address] [place] [address] PCP - General Internal Medicine 04/24/23 documented as of this encounter
--- OUTSIDE RECORDS SUMMARY | 2024-07-26 23:50 | XMS_ITS | Encounter Summary ---
Author Organization [facility] Address [address] [place] [address] Care Team Providers Care Agriculture Specialist Name Role Phone Shilo Soares MD Primary Care Provider [phone] Encounter Details Date Type Department Care Team [...] (Late Contact Info) Description 08/04/2024 1:00 PM LOCKSMITH Appointment [facility] 2nd Ri [address] [place] [address] Aviva Humphries MD [address] [place] [address] Infusion Chair 5, 2nd Floor [place] 08/25/2024 1:00 PM LOCKSMITH Office Visit [facility] Gynecologic Oncology Hall [address] [place] [address] Edilia Pettit, CHELY [address] [address] [place] [address] 08/25/2024 1:30 PM LOCKSMITH Appointment [facility] 2nd Fl [address] [place] [address] Aviva Humphries MD [address] [place] [address] Infusion Chair 1, 2nd Floor [place] 09/01/2024 10:45 AM LOCKSMITH Appointment [facility] Nuclear Medicine [address] [place] [address] [id number] Edilia Pettit, CHELY [address] [facility] [address] [place] [address] documented as of this encounter Visit Diagnoses Not on filedocumented in this encounter Care Teams Agriculture Specialist Relationship Specialty Start Date End Date Shilo Soares MD [address] [place] [address] PCP - General Internal Medicine 04/24/23 documented as of this encounter
--- OUTSIDE RECORDS SUMMARY | 2024-07-26 23:50 | XMS_ITS | Encounter Summary ---
Author Organization [facility] Address [address] [place] [address] Care Team Providers Care Shoe Polisher Name Role Phone Shilo Soares MD Primary Care Provider [phone] Encounter Details Date Type Department Care Team [...] (Late Contact Info) Description 08/04/2024 1:00 PM BALLISTIC TECHNICIAN Appointment [facility] 2nd Ut [address] [place] [address] Aviva Humphries MD [address] [place] [address] Infusion Chair 5, 2nd Floor [place] 08/25/2024 1:00 PM BALLISTIC TECHNICIAN Office Visit [facility] Gynecologic Oncology Hall [address] [place] [address] Edilia Pettit, CHELY [address] [address] [place] [address] 08/25/2024 1:30 PM BALLISTIC TECHNICIAN Appointment [facility] 2nd Fl [address] [place] [address] Aviva Humphries MD [address] [facility] [facility] [facility] [address] [place] [address] Infusion Chair 1, 2nd Floor [place] 09/01/2024 10:45 AM BALLISTIC TECHNICIAN Appointment [facility] Nuclear Medicine [address] [place] [address] [id number] Edilia Pettit, CHELY [address] [facility] [address] [place] [address] documented as of this encounter Visit Diagnoses Not on filedocumented in this encounter Care Teams Shoe Polisher Relationship Specialty Start Date End Date Shilo Soares MD [address] [place] [address] PCP - General Internal Medicine 04/24/23 documented as of this encounter
--- OUTSIDE RECORDS SUMMARY | 2024-07-26 23:51 | XMS_ITS | Encounter Summary ---
Author Organization [facility] Address [address] [place] [address] Care Team Providers Care Folding Rules Printing Machine Operator Name Role Phone Shilo Soares MD Primary Care Provider [phone] Encounter Details Date Type Department Care Team (Late Contact Info) Description 01/19/2024 External Device Data STL ABSTRACTION Provider, Abstract [...] (Late Contact Info) Description 08/04/2024 1:00 PM ASBESTOS SHINGLE INSPECTOR Appointment [facility] 2nd Sd [address] [place] [address] Aviva Humphries MD [address] [place] [address] Infusion Chair 5, 2nd Floor [place] 08/25/2024 1:00 PM ASBESTOS SHINGLE INSPECTOR Office Visit [facility] Gynecologic Oncology Hall [address] [place] [address] Edilia Pettit, CHELY [address] [facility] [address] [facility] [address] [place] [address] 08/25/2024 1:30 PM ASBESTOS SHINGLE INSPECTOR Appointment [facility] 2nd Fl [address] [place] [address] Aviva Humphries MD [address] [place] [address] Infusion Chair 1, 2nd Floor [place] 09/01/2024 10:45 AM ASBESTOS SHINGLE INSPECTOR Appointment [facility] Nuclear Medicine [address] [place] [address] [id number] Edilia Pettit, CHELY [address] [address] [place] [address] documented as of this encounter Visit Diagnoses Not on filedocumented in this encounter Care Teams Folding Rules Printing Machine Operator Relationship Specialty Start Date End Date Shiol Soares MD [address] [place] [address] PCP - General Internal Medicine 04/24/23 documented as of this encounter
--- OUTSIDE RECORDS SUMMARY | 2024-07-26 23:51 | XMS_ITS | Encounter Summary ---
Author Organization [facility] Address [address] [place] [address] Care Team Providers Care Real Estate Agency Licensee Name Role Phone Shilo Soares MD Primary Care Provider [phone] Encounter Details Date Type Department Care Team (Late Contact Info) Description 01/20/2024 External Device Data STL ABSTRACTION Provider, Abstract [...] Contact Info) Description 08/04/2024 1:00 PM DIGITAL RECRUITER Appointment [facility] 2nd Wy [address] [place] [address] Aviva Humphries MD [address] [place] [address] Infusion Chair 5, 2nd Floor [place] 08/25/2024 1:00 PM DIGITAL RECRUITER Office Visit [facility] Gynecologic Oncology Hall [address] [place] [address] Edilia Pettit, CHELY [address] [address] [address] [place] [address] 08/25/2024 1:30 PM DIGITAL RECRUITER Appointment [facility] 2nd Fl [address] [place] [address] Aviva Humphries MD [address] [place] [address] Infusion Chair 1, 2nd Floor [place] 09/01/2024 10:45 AM DIGITAL RECRUITER Appointment [facility] Nuclear Medicine [address] [place] [address] [id number] Edilia Pettit, CHELY [address] [facility] [address] [place] [address] documented as of this encounter Visit Diagnoses Not on filedocumented in this encounter Care Teams Real Estate Agency Licensee Relationship Specialty Start Date End Date Shilo Soares MD [address] [place] [address] PCP - General Internal Medicine 04/24/23 documented as of this encounter
--- OUTSIDE RECORDS SUMMARY | 2024-07-26 23:51 | XMS_ITS | Encounter Summary ---
Author Organization [facility] Address [address] [place] [address] Care Team Providers Care Barrel Builder Name Role Phone Shilo Soares MD Primary Care Provider [phone] Encounter Details Date Type Department Care Team (Late Contact Info) Description 01/13/2024 External Device Data STL ABSTRACTION Provider, Abstract [...] (Late Contact Info) Description 08/04/2024 1:00 PM RHEUMATOLOGIST Appointment [facility] 2nd Me [address] [place] [address] Aviva Humphries MD [address] [place] [address] Infusion Chair 5, 2nd Floor [place] 08/25/2024 1:00 PM RHEUMATOLOGIST Office Visit [facility] Gynecologic Oncology Hall [address] [place] [address] Edilia Pettit, CHELY [address] [facility] [address] [facility] [address] [address] [place] [address] 08/25/2024 1:30 PM RHEUMATOLOGIST Appointment [facility] 2nd Fl [address] [place] [address] Aviva Humphries MD [address] [facility] [address] [place] [address] Infusion Chair 1, 2nd Floor [place] 09/01/2024 10:45 AM RHEUMATOLOGIST Appointment [facility] Nuclear Medicine [address] [place] [address] [id number] Edilia Pettit, CHELY [address] [facility] [address] [place] [address] documented as of this encounter Visit Diagnoses Not on filedocumented in this encounter Care Teams Barrel Builder Relationship Specialty Start Date End Date Shilo Soares MD [address] [place] [address] PCP - General Internal Medicine 04/24/23 documented as of this encounter
--- OUTSIDE RECORDS SUMMARY | 2024-07-26 23:51 | XMS_ITS | Encounter Summary ---
Author Organization [facility] Address [address] [place] [address] Care Team Providers Care Clinical Nutritionist Name Role Phone Shilo Soares MD Primary Care Provider [phone] Encounter Details Date Type Department Care Team (Late Contact Info) Description 01/16/2024 External Device Data STL ABSTRACTION Provider, Abstract [...] (Late Contact Info) Description 08/04/2024 1:00 PM MANOMETER TECHNICIAN Appointment [facility] 2nd Al [address] [place] [address] Aviva Humphries MD [address] [place] [address] Infusion Chair 5, 2nd Floor [place] 08/25/2024 1:00 PM MANOMETER TECHNICIAN Office Visit [facility] Gynecologic Oncology Hall [address] [place] [address] Edilia Pettit, CHELY [address] [facility] [address] [place] [address] 08/25/2024 1:30 PM MANOMETER TECHNICIAN Appointment [facility] 2nd Fl [address] [place] [address] Aviva Humphries MD [address] [place] [address] Infusion Chair 1, 2nd Floor [place] 09/01/2024 10:45 AM MANOMETER TECHNICIAN Appointment [facility] Nuclear Medicine [address] [place] [address] [id number] Edilia Pettti, CHELY [address] [facility] [address] [place] [address] documented as of this encounter Visit Diagnoses Not on filedocumented in this encounter Care Teams Clinical Nutritionist Relationship Specialty Start Date End Date Shilo Soares MD [address] [place] [address] PCP - General Internal Medicine 04/24/23 documented as of this encounter
--- OUTSIDE RECORDS SUMMARY | 2024-07-26 23:51 | XMS_ITS | Encounter Summary ---
Author Organization [facility] Address [address] [place] [address] Care Team Providers Care Invoice Coder Name Role Phone Shilo Soares MD Primary Care Provider [phone] Encounter Details Date Type Department Care Team (Late Contact Info) Description 01/18/2024 External Device Data STL ABSTRACTION Provider, Abstract [...] (Late Contact Info) Description 08/04/2024 1:00 PM LINE APPLIANCE ASSEMBLER Appointment [facility] 2nd Ne [address] [place] [address] Aviva Humphries MD [address] [place] [address] Infusion Chair 5, 2nd Floor [place] 08/25/2024 1:00 PM LINE APPLIANCE ASSEMBLER Office Visit [facility] Gynecologic Oncology Hall [address] [place] [address] Edilia Pettit, CHELY [address] [address] [address] [place] [address] 08/25/2024 1:30 PM LINE APPLIANCE ASSEMBLER Appointment [facility] 2nd Fl [address] [place] [address] Aviva Humphries MD [address] [place] [address] Infusion Chair 1, 2nd Floor [place] 09/01/2024 10:45 AM LINE APPLIANCE ASSEMBLER Appointment [facility] Nuclear Medicine [address] [place] [address] [id number] Edilia Pettit, CHELY [address] [facility] [address] [place] [address] documented as of this encounter Visit Diagnoses Not on filedocumented in this encounter Care Teams Invoice Coder Relationship Specialty Start Date End Date Shilo Soares MD [address] [place] [address] PCP - General Internal Medicine 04/24/23 documented as of this encounter
--- OUTSIDE RECORDS SUMMARY | 2024-07-26 23:51 | XMS_ITS | Encounter Summary ---
Author Organization [facility] Address [address] [place] [address] Care Team Providers Care Private Client Advisor Name Role Phone Shilo Soares MD Primary Care Provider [phone] Encounter Details Date Type Department Care Team [...] Infusion Center 2nd Mi [address] [place] [address] Aviva Humphries MD [address] [place] [address] Infusion Chair 5, 2nd Floor Hall 08/25/2024 1:00 PM JOURNEYMAN WELDER Office Visit [facility] Gynecologic Oncology Hall [address] [place] [address] Edilia Pettit, CHELY [address] [address] [place] [address] 08/25/2024 1:30 PM JOURNEYMAN WELDER Appointment [facility] 2nd Fl [address] [place] [address] Aviva Humphries MD [address] [facility] [address] [place] [address] Infusion Chair 1, 2nd Floor [place] 09/01/2024 10:45 AM JOURNEYMAN WELDER Appointment [facility] Nuclear Medicine [address] [place] [address] [id number] Edilia Pettit, CHELY [address] [facility] [facility] [address] [place] [address] documented as of this encounter Visit Diagnoses Not on filedocumented in this encounter Care Teams Private Client Advisor Relationship Specialty Start Date End Date Shilo Soares MD [address] [place] [address] PCP - General Internal Medicine 04/24/23 documented as of this encounter
--- OUTSIDE RECORDS SUMMARY | 2024-07-26 23:51 | XMS_ITS | Encounter Summary ---
Author Organization [facility] Address [address] [place] [address] Care Team Providers Care Telehealth Coordinator Name Role Phone Shilo Soares MD Primary Care Provider [phone] Encounter Details Date Type Department Care Team (Late Contact Info) Description 01/21/2024 External Device Data STL ABSTRACTION Provider, Abstract [...] (Late Contact Info) Description 08/04/2024 1:00 PM FINANCE VICE PRESIDENT Appointment [facility] 2nd Ar [address] [place] [address] Aviva Humphries MD [address] [place] [address] Infusion Chair 5, 2nd Floor [place] 08/25/2024 1:00 PM FINANCE VICE PRESIDENT Office Visit [facility] Gynecologic Oncology Hall [address] [place] [address] Edilia Pettit, CHELY [address] [facility] [address] [place] [address] 08/25/2024 1:30 PM FINANCE VICE PRESIDENT Appointment [facility] 2nd Fl [address] [place] [address] Aviva Humphries MD [address] [facility] [address] [place] [address] Infusion Chair 1, 2nd Floor [place] 09/01/2024 10:45 AM FINANCE VICE PRESIDENT Appointment [facility] Nuclear Medicine [address] [place] [address] [id number] Edilia Pettit, CHELY [address] [facility] [address] [place] [address] documented as of this encounter Visit Diagnoses Not on filedocumented in this encounter Care Teams Telehealth Coordinator Relationship Specialty Start Date End Date Shilo Soares MD [address] [place] [address] PCP - General Internal Medicine 04/24/23 documented as of this encounter
--- OUTSIDE RECORDS SUMMARY | 2024-07-26 23:51 | XMS_ITS | Encounter Summary ---
Author Organization [facility] Address [address] [place] [address] Care Team Providers Care Wildlife Ecologist Name Role Phone Shilo Soares MD Primary Care Provider [phone] Encounter Details Date Type Department Care Team [...] (Late Contact Info) Description 08/04/2024 1:00 PM AQUATIC SCIENTIST Appointment [facility] 2nd Vt [address] [place] [address] Aviva Humphries MD [address] [place] [address] Infusion Chair 5, 2nd Floor Hall 08/25/2024 1:00 PM AQUATIC SCIENTIST Office Visit [facility] Gynecologic Oncology Hall [address] [place] [address] Edilia Pettit, CHELY [address] [address] [place] [address] 08/25/2024 1:30 PM AQUATIC SCIENTIST Appointment [facility] 2nd Fl [address] [place] [address] Aviva Humphries MD [address] [place] [address] Infusion Chair 1, 2nd Floor [place] 09/01/2024 10:45 AM AQUATIC SCIENTIST Appointment [facility] Nuclear Medicine [address] [place] [address] [id number] Edilia Pettit, CHELY [address] [facility] [address] [place] [address] documented as of this encounter Visit Diagnoses Not on filedocumented in this encounter Care Teams Wildlife Ecologist Relationship Specialty Start Date End Date Shilo Soares MD [address] [place] [address] PCP - General Internal Medicine 04/24/23 documented as of this encounter
--- OUTSIDE RECORDS SUMMARY | 2024-07-26 23:51 | XMS_ITS | Encounter Summary ---
Author Organization [facility] Address [address] [place] [address] Care Team Providers Care Lower School Spanish Teacher Name Role Phone Shilo Soares MD Primary Care Provider [phone] Encounter Details Date Type Department Care Team [...] (Late Contact Info) Description 08/04/2024 1:00 PM TUBING DRIER Appointment [facility] 2nd Dc [address] [place] [address] Aviva Humphries MD [address] [place] [address] Infusion Chair 5, 2nd Floor Hall 08/25/2024 1:00 PM TUBING DRIER Office Visit [facility] Gynecologic Oncology Hall [address] [place] [address] Edilia Pettit, CHELY [address] [place] [address] 08/25/2024 1:30 PM TUBING DRIER Appointment [facility] 2nd Fl [address] [place] [address] Aviva Humphries MD [address] [place] [address] Infusion Chair 1, 2nd Floor [place] 09/01/2024 10:45 AM TUBING DRIER Appointment [facility] Nuclear Medicine [address] [place] [address] [id number] Edilia Pettit, CHELY [address] [facility] [address] [place] [address] documented as of this encounter Visit Diagnoses Not on filedocumented in this encounter Care Teams Lower School Spanish Teacher Relationship Specialty Start Date End Date Shilo Soares MD [address] [place] [address] PCP - General Internal Medicine 04/24/23 documented as of this encounter
--- OUTSIDE RECORDS SUMMARY | 2024-07-26 23:51 | XMS_ITS | Encounter Summary ---
Author Organization [facility] Address [address] [place] [address] Care Team Providers Care Shade Hanger Name Role Phone Shilo Soares MD Primary Care Provider [phone] Encounter Details Date Type Department Care Team (Late Contact Info) Description 01/17/2024 External Device Data STL ABSTRACTION Provider, Abstract [...] (Late Contact Info) Description 08/04/2024 1:00 PM CRIPPLE WORKER Appointment [facility] 2nd Ca [address] [place] [address] Aviva Humphries MD [address] [place] [address] Infusion Chair 5, 2nd Floor [place] 08/25/2024 1:00 PM CRIPPLE WORKER Office Visit [facility] Gynecologic Oncology Hall [address] [place] [address] Edilia Pettit, CHELY [address] [facility] [address] [place] [address] 08/25/2024 1:30 PM CRIPPLE WORKER Appointment [facility] 2nd Fl [address] [place] [address] Aviva Humphries MD [address] [facility] [address] [place] [address] Infusion Chair 1, 2nd Floor [place] 09/01/2024 10:45 AM CRIPPLE WORKER Appointment [facility] Nuclear Medicine [address] [place] [address] [id number] Edilia Pettit, CHELY [address] [facility] [address] [place] [address] documented as of this encounter Visit Diagnoses Not on filedocumented in this encounter Care Teams Shade Hanger Relationship Specialty Start Date End Date Shilo Soares MD [address] [place] [address] PCP - General Internal Medicine 04/24/23 documented as of this encounter
--- OUTSIDE RECORDS SUMMARY | 2024-07-26 23:51 | XMS_ITS | Encounter Summary ---
Author Organization [facility] Address [address] [place] [address] Care Team Providers Care Background Check Coordinator Name Role Phone Shilo Soares MD Primary Care Provider [phone] Encounter Details Date Type Department Care Team (Late Contact Info) Description 01/11/2024 External Device Data STL ABSTRACTION Provider, Abstract [...] (Late Contact Info) Description 08/04/2024 1:00 PM TRANSPORT RN Appointment [facility] 2nd De [address] [place] [address] Aviva Humphries MD [address] [place] [address] Infusion Chair 5, 2nd Floor [place] 08/25/2024 1:00 PM TRANSPORT RN Office Visit [facility] Gynecologic Oncology Hall [address] [place] [address] Edilia Pettit, CHELY [address] [address] [place] [address] 08/25/2024 1:30 PM TRANSPORT RN Appointment [facility] 2nd Fl [address] [place] [address] Aviva Humphries MD [address] [facility] [address] [facility] [address] [place] [address] Infusion Chair 1, 2nd Floor [place] 09/01/2024 10:45 AM TRANSPORT RN Appointment [facility] Nuclear Medicine [address] [place] [address] [id number] Edilia Pettit, CHELY [address] [facility] [address] [place] [address] documented as of this encounter Visit Diagnoses Not on filedocumented in this encounter Care Teams Background Check Coordinator Relationship Specialty Start Date End Date Shilo Soares MD [address] [place] [address] PCP - General Internal Medicine 04/24/23 documented as of this encounter
--- OUTSIDE RECORDS SUMMARY | 2024-07-26 23:51 | XMS_ITS | Encounter Summary ---
Author Organization [facility] Address [address] [place] [address] Care Team Providers Care Library Manager Name Role Phone Shilo Soares MD Primary Care Provider [phone] Encounter Details Date Type Department Care Team [...] (Late Contact Info) Description 08/04/2024 1:00 PM CHILD ABUSE WORKER Appointment [facility] Al [address] [place] [address] Aviva Humphries MD [address] [place] [address] Infusion Chair 5, 2nd Floor Hall 08/25/2024 1:00 PM CHILD ABUSE WORKER Office Visit [facility] Gynecologic Oncology Hall [address] [place] [address] Edilia Pettit, CHELY [address] [facility] [facility] [place] [address] 08/25/2024 1:30 PM CHILD ABUSE WORKER Appointment [facility] 2nd Fl [address] [place] [address] Aviva Humphries MD [address] [place] [address] Infusion Chair 1, 2nd Floor [place] 09/01/2024 10:45 AM CHILD ABUSE WORKER Appointment [facility] Nuclear Medicine [address] [place] [address] [id number] Edilia Pettit, CHELY [address] [facility] [address] [place] [address] documented as of this encounter Visit Diagnoses Not on filedocumented in this encounter Care Teams Library Manager Relationship Specialty Start Date End Date Shilo Soares MD [address] [place] [address] PCP - General Internal Medicine 04/24/23 documented as of this encounter
--- OUTSIDE RECORDS SUMMARY | 2024-07-26 23:51 | XMS_ITS | Encounter Summary ---
Author Organization [facility] Address [address] [place] [address] Care Team Providers Care Crayon Sawyer Name Role Phone Shilo Soares MD Primary Care Provider [phone] Encounter Details Date Type Department Care Team [...] Info) Description 08/04/2024 1:00 PM DIRECTOR OF EVENT SALES Appointment [facility] 2nd Dc [address] [place] [address] Aviva Humphries MD [address] [place] [address] Infusion Chair 5, 2nd Floor [place] 08/25/2024 1:00 PM DIRECTOR OF EVENT SALES Office Visit [facility] Gynecologic Oncology Hall [address] [place] [address] Edilia Pettit, CHELY [address] [facility] [address] [place] [address] 08/25/2024 1:30 PM DIRECTOR OF EVENT SALES Appointment [facility] 2nd Fl [address] [place] [address] Aviva Humphries MD [address] [place] [address] Infusion Chair 1, 2nd Floor [place] 09/01/2024 10:45 AM DIRECTOR OF EVENT SALES Appointment [facility] Nuclear Medicine [address] [place] [address] [id number] Edilia Pettit, CHELY [address] [facility] [address] [place] [address] documented as of this encounter Visit Diagnoses Not on filedocumented in this encounter Care Teams Crayon Sawyer Relationship Specialty Start Date End Date Shilo Soares MD [address] [place] [address] PCP - General Internal Medicine 04/24/23 documented as of this encounter
--- OUTSIDE RECORDS SUMMARY | 2024-07-26 23:51 | XMS_ITS | Encounter Summary ---
Author Organization [facility] Address [address] [place] [address] Care Team Providers Care Review Engineer Name Role Phone Shilo Soares MD Primary Care Provider [phone] Encounter Details Date Type Department Care Team [...] Contact Info) Description 08/04/2024 1:00 PM MANAGER ANDROID Appointment [facility] 2nd Mi [address] [place] [address] Aviva Humphries MD [address] [place] [address] Infusion Chair 5, 2nd Floor Hall 08/25/2024 1:00 PM MANAGER ANDROID Office Visit [facility] Gynecologic Oncology Hall [address] [place] [address] Edilia Pettit, CHELY [address] [facility] [facility] [address] [address] [place] [address] 08/25/2024 1:30 PM MANAGER ANDROID Appointment [facility] 2nd Fl [address] [place] [address] Aviva Humphries MD [address] [place] [address] Infusion Chair 1, 2nd Floor [place] 09/01/2024 10:45 AM MANAGER ANDROID Appointment [facility] Nuclear Medicine [address] [place] [address] [id number] Edilia Pettit, CHELY [address] [facility] [address] [place] [address] documented as of this encounter Visit Diagnoses Not on filedocumented in this encounter Care Teams Review Engineer Relationship Specialty Start Date End Date Shilo Soares MD [address] [place] [address] PCP - General Internal Medicine 04/24/23 documented as of this encounter
--- OUTSIDE RECORDS SUMMARY | 2024-07-26 23:51 | XMS_ITS | Encounter Summary ---
Author Organization [facility] Address [address] [place] [address] Care Team Providers Care Shingle Cutter Name Role Phone Shilo Soares MD Primary Care Provider [phone] Encounter Details Date Type Department Care Team [...] (Late Contact Info) Description 08/04/2024 1:00 PM CARD SERVICES SPECIALIST Appointment [facility] 2nd Nd [address] [place] [address] Aviva Humphries MD [address] [place] [address] Infusion Chair 5, 2nd Floor [place] 08/25/2024 1:00 PM CARD SERVICES SPECIALIST Office Visit [facility] Gynecologic Oncology Hall [address] [place] [address] Edilia Pettit, CHELY [address] [place] [address] 08/25/2024 1:30 PM CARD SERVICES SPECIALIST Appointment [facility] 2nd Fl [address] [place] [address] Aviva Humphries MD [address] [place] [address] Infusion Chair 1, 2nd Floor [place] 09/01/2024 10:45 AM CARD SERVICES SPECIALIST Appointment [facility] Nuclear Medicine [address] [place] [address] [id number] Edilia Pettit, CHELY [address] [facility] [address] [place] [address] documented as of this encounter Visit Diagnoses Not on filedocumented in this encounter Care Teams Shingle Cutter Relationship Specialty Start Date End Date Shilo Soares MD [address] [place] [address] PCP - General Internal Medicine 04/24/23 documented as of this encounter
--- OUTSIDE RECORDS SUMMARY | 2024-07-26 23:51 | XMS_ITS | Encounter Summary ---
Author Organization [facility] Address [address] [place] [address] Care Team Providers Care Boat Hop Name Role Phone Shilo Soares MD Primary Care Provider [phone] Encounter Details Date Type Department Care Team [...] (Late Contact Info) Description 08/04/2024 1:00 PM SILVER DESIGNER Appointment [facility] 2nd Mi [address] [place] [address] Aviva Humphries MD [address] [place] [address] Infusion Chair 5, 2nd Floor [place] 08/25/2024 1:00 PM SILVER DESIGNER Office Visit [facility] Gynecologic Oncology Hall [address] [place] [address] Edilia Pettit, CHELY [address] [place] [address] 08/25/2024 1:30 PM SILVER DESIGNER Appointment [facility] 2nd Fl [address] [place] [address] Aviva Humphries MD [address] [facility] [address] [facility] [address] [place] [address] Infusion Chair 1, 2nd Floor [place] 09/01/2024 10:45 AM SILVER DESIGNER Appointment [facility] Nuclear Medicine [address] [place] [address] [id number] Edilia Pettit, CHELY [address] [facility] [address] [place] [address] documented as of this encounter Visit Diagnoses Not on filedocumented in this encounter Care Teams Boat Hop Relationship Specialty Start Date End Date Shilo Soares MD [address] [place] [address] PCP - General Internal Medicine 04/24/23 documented as of this encounter
--- OUTSIDE RECORDS SUMMARY | 2024-07-26 23:51 | XMS_ITS | Encounter Summary ---
Author Organization [facility] Address [address] [place] [address] Care Team Providers Care Social Sciences Professor Name Role Phone Shilo Soares MD Primary Care Provider [phone] Encounter Details Date Type Department Care Team (Late Contact Info) Description 01/14/2024 External Device Data STL ABSTRACTION Provider, Abstract [...] (Late Contact Info) Description 08/04/2024 1:00 PM SCENE AND LIGHTING DESIGN LECTURER Appointment [facility] 2nd La [address] [place] [address] Aviva Humphries MD [address] [place] [address] Infusion Chair 5, 2nd Floor Hall 08/25/2024 1:00 PM SCENE AND LIGHTING DESIGN LECTURER Office Visit [facility] Gynecologic Oncology Hall [address] [place] [address] Edilia Pettit, CHELY [address] [facility] [address] [place] [address] 08/25/2024 1:30 PM SCENE AND LIGHTING DESIGN LECTURER Appointment [facility] 2nd Fl [address] [place] [address] Aviva Humphries MD [address] [place] [address] Infusion Chair 1, 2nd Floor [place] 09/01/2024 10:45 AM SCENE AND LIGHTING DESIGN LECTURER Appointment [facility] Nuclear Medicine [address] [place] [address] [id number] Edilia Pettit, CHELY [address] [facility] [address] [place] [address] documented as of this encounter Visit Diagnoses Not on filedocumented in this encounter Care Teams Social Sciences Professor Relationship Specialty Start Date End Date Shilo Soares MD [address] [place] [address] PCP - General Internal Medicine 04/24/23 documented as of this encounter
--- OUTSIDE RECORDS SUMMARY | 2024-07-26 23:51 | XMS_ITS | Encounter Summary ---
Author Organization [facility] Address [address] [place] [address] Care Team Providers Care Heel Slicker Name Role Phone Shilo Soares MD Primary Care Provider [phone] Encounter Details Date Type Department Care Team [...] Contact Info) Description 08/04/2024 1:00 PM DIRECTOR MARKETING Appointment [facility] 2nd Nv [address] [place] [address] Aviva Humphries MD [address] [place] [address] Infusion Chair 5, 2nd Floor [place] 08/25/2024 1:00 PM DIRECTOR MARKETING Office Visit [facility] Gynecologic Oncology Hall [address] [place] [address] Edilia Pettit, CHELY [address] [facility] [address] [place] [address] 08/25/2024 1:30 PM DIRECTOR MARKETING Appointment [facility] 2nd Fl [address] [place] [address] Aviva Humphries MD [address] [facility] [address] [place] [address] Infusion Chair 1, 2nd Floor [place] 09/01/2024 10:45 AM DIRECTOR MARKETING Appointment [facility] Nuclear Medicine [address] [place] [address] [id number] Edilia Pettit, CHELY [address] [facility] [address] [place] [address] documented as of this encounter Visit Diagnoses Not on filedocumented in this encounter Care Teams Heel Slicker Relationship Specialty Start Date End Date Shilo Soares MD [address] [place] [address] PCP - General Internal Medicine 04/24/23 documented as of this encounter
--- OUTSIDE RECORDS SUMMARY | 2024-07-26 23:51 | XMS_ITS | Encounter Summary ---
Author Organization [facility] Address [address] [place] [address] Care Team Providers Care Deep Tissue Massage Therapist Name Role Phone Shilo Soares MD Primary Care Provider [phone] Encounter Details Date Type Department Care Team [...] (Late Contact Info) Description 08/04/2024 1:00 PM TRIMMER OPERATOR Appointment [facility] 2nd Dc [address] [place] [address] Aviva Humphries MD [address] [place] [address] Infusion Chair 5, 2nd Floor [place] 08/25/2024 1:00 PM TRIMMER OPERATOR Office Visit [facility] Gynecologic Oncology Hall [address] [place] [address] Edilia Pettit, CHELY [address] [facility] [address] [facility] [address] [place] [address] 08/25/2024 1:30 PM TRIMMER OPERATOR Appointment [facility] 2nd Fl [address] [place] [address] Aviva Humphries MD [address] [place] [address] Infusion Chair 1, 2nd Floor [place] 09/01/2024 10:45 AM TRIMMER OPERATOR Appointment [facility] Nuclear Medicine [address] [place] [address] [id number] Edilia Pettit, CHELY [address] [facility] [address] [place] [address] documented as of this encounter Visit Diagnoses Not on filedocumented in this encounter Care Teams Deep Tissue Massage Therapist Relationship Specialty Start Date End Date Shilo Soares MD [address] [place] [address] PCP - General Internal Medicine 04/24/23 documented as of this encounter
--- OUTSIDE RECORDS SUMMARY | 2024-07-26 23:51 | XMS_ITS | Encounter Summary ---
Author Organization [facility] Address [address] [place] [address] Care Team Providers Care Nursing Unit Manager Name Role Phone Shilo Soares MD Primary Care Provider [phone] Encounter Details Date Type Department Care Team [...] (Late Contact Info) Description 08/04/2024 1:00 PM RADIOLOGY ASSISTANT Appointment [facility] [address] [address] [place] [address] Aviva Humphries MD [address] [place] [address] Infusion Chair 5, 2nd Floor Hall 08/25/2024 1:00 PM RADIOLOGY ASSISTANT Office Visit [facility] Gynecologic Oncology Hall [address] [place] [address] Edilia Pettit, CHELY [address] [place] [address] 08/25/2024 1:30 PM RADIOLOGY ASSISTANT Appointment [facility] 2nd Fl [address] [place] [address] Aviva Humphries MD [address] [place] [address] Infusion Chair 1, 2nd Floor [place] 09/01/2024 10:45 AM RADIOLOGY ASSISTANT Appointment [facility] Nuclear Medicine [address] [place] [address] [id number] Edilia Pettit, CHELY [address] [facility] [address] [place] [address] documented as of this encounter Visit Diagnoses Not on filedocumented in this encounter Care Teams Nursing Unit Manager Relationship Specialty Start Date End Date Shilo Soares MD [address] [place] [address] PCP - General Internal Medicine 04/24/23 documented as of this encounter
--- OUTSIDE RECORDS SUMMARY | 2024-07-26 23:51 | XMS_ITS | Encounter Summary ---
Author Organization [facility] Address [address] [place] [address] Care Team Providers Care Optimization Consultant Name Role Phone Shilo Soares MD Primary Care Provider [phone] Encounter Details Date Type Department Care Team (Late Contact Info) Description 01/12/2024 External Device Data STL ABSTRACTION Provider, Abstract [...] (Late Contact Info) Description 08/04/2024 1:00 PM IMAGING ANALYST Appointment [facility] 2nd Id [address] [place] [address] Aviva Humphries MD [address] [place] [address] Infusion Chair 5, 2nd Floor [place] 08/25/2024 1:00 PM IMAGING ANALYST Office Visit [facility] Gynecologic Oncology Hall [address] [place] [address] Edilia Pettit, CHELY [address] [facility] [address] [place] [address] 08/25/2024 1:30 PM IMAGING ANALYST Appointment [facility] 2nd Fl [address] [place] [address] Aviva Humphries MD [address] [facility] [address] [place] [address] Infusion Chair 1, 2nd Floor [place] 09/01/2024 10:45 AM IMAGING ANALYST Appointment [facility] Nuclear Medicine [address] [place] [address] [id number] Edilia Pettit, CHELY [address] [facility] [address] [place] [address] documented as of this encounter Visit Diagnoses Not on filedocumented in this encounter Care Teams Optimization Consultant Relationship Specialty Start Date End Date Shilo Soares MD [address] [place] [address] PCP - General Internal Medicine 04/24/23 documented as of this encounter
--- OUTSIDE RECORDS SUMMARY | 2024-07-26 23:51 | XMS_ITS | Encounter Summary ---
Author Organization [facility] Address [address] [place] [address] Care Team Providers Care Supervisor Mending Name Role Phone Shilo Soares MD Primary Care Provider [phone] Encounter Details Date Type Department Care Team [...] Contact Info) Description 08/04/2024 1:00 PM MANAGER ADVANCED Appointment [facility] 2nd Mt [address] [place] [address] Aviva Humphries MD [address] [place] [address] Infusion Chair 5, 2nd Floor Hall 08/25/2024 1:00 PM MANAGER ADVANCED Office Visit [facility] Gynecologic Oncology Hall [address] [place] [address] Edilia Pettit, CHELY [address] [facility] [address] [place] [address] 08/25/2024 1:30 PM MANAGER ADVANCED Appointment [facility] 2nd Fl [address] [place] [address] Aviva Humphries MD [address] [place] [address] Infusion Chair 1, 2nd Floor [place] 09/01/2024 10:45 AM MANAGER ADVANCED Appointment [facility] Nuclear Medicine [address] [place] [address] [id number] Edilia Pettit, CHELY [address] [facility] [address] [place] [address] documented as of this encounter Visit Diagnoses Not on filedocumented in this encounter Care Teams Supervisor Mending Relationship Specialty Start Date End Date Shilo Soares MD [address] [place] [address] PCP - General Internal Medicine 04/24/23 documented as of this encounter
--- OUTSIDE RECORDS SUMMARY | 2024-07-26 23:51 | XMS_ITS | Encounter Summary ---
Author Organization [facility] Address [address] [place] [address] Care Team Providers Care Welder Gas Name Role Phone Shilo Soares MD Primary Care Provider [phone] Encounter Details Date Type Department Care Team (Late Contact Info) Description 01/15/2024 External Device Data STL ABSTRACTION Provider, Abstract [...] Contact Info) Description 08/04/2024 1:00 PM FIELD OPERATIONS FARM MANAGER Appointment [facility] 2nd Mt [address] [place] [address] Aviva Humphries MD [address] [place] [address] Infusion Chair 5, 2nd Floor Hall 08/25/2024 1:00 PM FIELD OPERATIONS FARM MANAGER Office Visit [facility] Gynecologic Oncology Hall [address] [place] [address] Edilia Pettit, CHELY [address] [facility] [address] [place] [address] 08/25/2024 1:30 PM FIELD OPERATIONS FARM MANAGER Appointment [facility] 2nd Fl [address] [place] [address] Aviva Humphries MD [address] [address] [facility] [address] [place] [address] Infusion Chair 1, 2nd Floor [place] 09/01/2024 10:45 AM FIELD OPERATIONS FARM MANAGER Appointment [facility] Nuclear Medicine [address] [place] [address] [id number] Edilia Pettit, CHELY [address] [facility] [address] [place] [address] documented as of this encounter Visit Diagnoses Not on filedocumented in this encounter Care Teams Welder Gas Relationship Specialty Start Date End Date Shilo Soares MD [address] [place] [address] PCP - General Internal Medicine 04/24/23 documented as of this encounter
--- OUTSIDE RECORDS SUMMARY | 2024-07-26 23:51 | XMS_ITS | Encounter Summary ---
Author Organization [facility] Address [address] [place] [address] Care Team Providers Care Avionics Systems Engineer Name Role Phone Shilo Soares MD Primary Care Provider [phone] Encounter Details Date Type Department Care Team [...] (Late Contact Info) Description 08/04/2024 1:00 PM MARINE INSURANCE CLAIM EXAMINER Appointment [facility] 2nd Ga [address] [place] [address] Aviva Humphries MD [address] [place] [address] Infusion Chair 5, 2nd Floor [place] 08/25/2024 1:00 PM MARINE INSURANCE CLAIM EXAMINER Office Visit [facility] Gynecologic Oncology Hall [address] [place] [address] Edilia Pettit, CHELY [address] [place] [address] 08/25/2024 1:30 PM MARINE INSURANCE CLAIM EXAMINER Appointment [facility] 2nd Fl [address] [place] [address] Aviva Humphries MD [address] [facility] [address] [facility] [place] [address] Infusion Chair 1, 2nd Floor [place] 09/01/2024 10:45 AM MARINE INSURANCE CLAIM EXAMINER Appointment [facility] Nuclear Medicine [address] [place] [address] [id number] Edilia Pettit, CHELY [address] [facility] [address] [place] [address] documented as of this encounter Visit Diagnoses Not on filedocumented in this encounter Care Teams Avionics Systems Engineer Relationship Specialty Start Date End Date Shilo Soares MD [address] [place] [address] PCP - General Internal Medicine 04/24/23 documented as of this encounter
--- OUTSIDE RECORDS SUMMARY | 2024-07-26 23:51 | XMS_ITS | Encounter Summary ---
Author Organization [facility] Address [address] [place] [address] Care Team Providers Care Online Health And Fitness Coach Name Role Phone Shilo Soares MD Primary Care Provider [phone] Encounter Details Date Type Department Care Team [...] (Late Contact Info) Description 08/04/2024 1:00 PM LEAD RUBY ON RAILS DEVELOPER Appointment [facility] 2[facility] [address] [place] [address] Aviva Humphries MD [address] [place] [address] Infusion Chair 5, 2nd Floor [place] 08/25/2024 1:00 PM LEAD RUBY ON RAILS DEVELOPER Office Visit [facility] Gynecologic Oncology Hall [address] [place] [address] Edilia Pettit, CHELY [address] [facility] [address] [place] [address] 08/25/2024 1:30 PM LEAD RUBY ON RAILS DEVELOPER Appointment [facility] 2nd Fl [address] [place] [address] Aviva Humphries MD [address] [place] [address] Infusion Chair 1, 2nd Floor [place] 09/01/2024 10:45 AM LEAD RUBY ON RAILS DEVELOPER Appointment [facility] Nuclear Medicine [address] [place] [address] [id number] Edilia Pettit, CHELY [address] [facility] [address] [place] [address] documented as of this encounter Visit Diagnoses Not on filedocumented in this encounter Care Teams Online Health And Fitness Coach Relationship Specialty Start Date End Date Shilo Soares MD [address] [place] [address] PCP - General Internal Medicine 04/24/23 documented as of this encounter
--- OUTSIDE RECORDS SUMMARY | 2024-07-26 23:51 | XMS_ITS | Encounter Summary ---
Author Organization [facility] Address [address] [place] [address] Care Team Providers Care Access Control Officer Name Role Phone Shilo Soares MD Primary Care Provider [phone] Encounter Details Date Type Department Care Team [...] (Late Contact Info) Description 08/04/2024 1:00 PM LANDSCAPE ARCHITECTURE PROFESSOR Appointment [facility] 2nd In [address] [place] [address] Aviva Humphries MD [address] [place] [address] Infusion Chair 5, 2nd Floor Hall 08/25/2024 1:00 PM LANDSCAPE ARCHITECTURE PROFESSOR Office Visit [facility] Gynecologic Oncology Hall [address] [place] [address] Edilia Pettit, CHELY [address] [facility] [address] [place] [address] 08/25/2024 1:30 PM LANDSCAPE ARCHITECTURE PROFESSOR Appointment [facility] 2nd Fl [address] [place] [address] Aviva Humphries MD [address] [place] [address] Infusion Chair 1, 2nd Floor [place] 09/01/2024 10:45 AM LANDSCAPE ARCHITECTURE PROFESSOR Appointment [facility] Nuclear Medicine [address] [place] [address] [id number] Edilia Pettit, CHELY [address] [facility] [address] [place] [address] documented as of this encounter Visit Diagnoses Not on filedocumented in this encounter Care Teams Access Control Officer Relationship Specialty Start Date End Date Shilo Soares MD [address] [place] [address] PCP - General Internal Medicine 04/24/23 documented as of this encounter
--- OUTSIDE RECORDS SUMMARY | 2024-07-26 23:51 | XMS_ITS | Encounter Summary ---
Author Organization [facility] Address [address] [place] [address] Care Team Providers Care Dressing Room Porter Name Role Phone Shilo Soares MD Primary Care Provider [phone] Encounter Details Date Type Department Care Team [...] (Late Contact Info) Description 08/04/2024 1:00 PM CODING VALIDATOR Appointment [facility] 2nd Mt [address] [place] [address] Aviva Humphries MD [address] [place] [address] Infusion Chair 5, 2nd Floor Hall 08/25/2024 1:00 PM CODING VALIDATOR Office Visit [facility] Gynecologic Oncology Hall [address] [place] [address] Edilia Pettit, CHELY [address] [facility] [address] [place] [address] 08/25/2024 1:30 PM CODING VALIDATOR Appointment [facility] 2nd Fl [address] [place] [address] Aviva Humphries MD [address] [facility] [address] [place] [address] Infusion Chair 1, 2nd Floor [place] 09/01/2024 10:45 AM CODING VALIDATOR Appointment [facility] Nuclear Medicine [address] [place] [address] [id number] Edilia Pettit, CHELY [address] [facility] [address] [place] [address] documented as of this encounter Visit Diagnoses Not on filedocumented in this encounter Care Teams Dressing Room Porter Relationship Specialty Start Date End Date Shilo Soares MD [address] [place] [address] PCP - General Internal Medicine 04/24/23 documented as of this encounter
--- OUTSIDE RECORDS SUMMARY | 2024-07-26 23:51 | XMS_ITS | Encounter Summary ---
Author Organization [facility] Address [address] [place] [address] Care Team Providers Care Combat Systems Engineer Name Role Phone Shilo Soares MD Primary Care Provider [phone] Encounter Details Date Type Department Care Team [...] (Late Contact Info) Description 08/04/2024 1:00 PM WINDSHIELD INSTALLER Appointment [facility] 2nd [place] [address] [place] [address] Aviva Humphries MD [address] [place] [address] Infusion Chair 5, 2nd Floor Hall 08/25/2024 1:00 PM WINDSHIELD INSTALLER Office Visit [facility] Gynecologic Oncology Hall [address] [place] [address] Edilia Pettit, CHELY [address] [facility] [address] [place] [address] 08/25/2024 1:30 PM WINDSHIELD INSTALLER Appointment [facility] 2nd Fl [address] [place] [address] Aviva Humphries MD [address] [address] [facility] [address] [place] [address] Infusion Chair 1, 2nd Floor [place] 09/01/2024 10:45 AM WINDSHIELD INSTALLER Appointment [facility] Nuclear Medicine [address] [place] [address] [id number] Edilia Pettit, CHELY [address] [facility] [address] [place] [address] documented as of this encounter Visit Diagnoses Not on filedocumented in this encounter Care Teams Combat Systems Engineer Relationship Specialty Start Date End Date Shilo Soares MD [address] [place] [address] PCP - General Internal Medicine 04/24/23 documented as of this encounter
--- OUTSIDE RECORDS SUMMARY | 2024-07-26 23:51 | XMS_ITS | Encounter Summary ---
Author Organization [employer] Address [address] [place] [address] Care Team Providers Care Perioperative Manager Name Role Phone Shilo Soares MD Primary Care Provider [phone] Reason for Visit * Reason Onset Date Comments Insurance Issues 01/12/2024 Encounter Details Date Type Department Care Team (Late st Contact Info) Description 01/12/2024 Telephone [facility] Patient Navigation [address] [place] [address] Ellie Regan LCSW Insurance Issues Social History Tobacco Use Types Packs/Day Years [...] encounter Miscellaneous Notes * Telephone Encounter - Ellie Regan LCSW - 01/12/2024 10:23 AM CDT Call to pt per referral by corporate associate attorney regarding Medicare. Pt to turn 64 in November 2024. She is unsure if she will still be working then. She is seeking guidance on how to enroll and what plan to choose. Advised pt she will be eligible to enroll in a plan starting in August for coverage that will start on 11/08/24. Informed her she can contact this sw at the time for more specific guidance depending on her situation. Per request, emailed pt link for [facility] Health Insurance Program and Medicare.gov. No other needs identified. Will continue to follow pt as needed. Ellie HILLMAN, MINE SUPERINTENDENT Conduit Worker [facility] [phone] documented in this encounter Plan of Treatment Upcoming Encounters Date Type Department Care Team (Late st Contact Info) Description 08/04/2024 1:00 PM SUPERVISOR CELLARS Appointment [facility] Infusion Center [facility] [address] [place] [address] Aviva Humphries MD [address] [facility] [address] [place] [address] Infusion Chair 5, 2nd Floor [place] 08/25/2024 1:00 PM SUPERVISOR CELLARS Office Visit [facility] Gynecologic Oncology [place] [address] [facility] [address] [place] [address] Edilia Pettit NP [address] [address] 08/25/2024 1:30 PM SUPERVISOR CELLARS Appointment [facility] Infusion Center [facility] [address] [place] [address] Aviva Humphries MD [address] [facility] [address] [place] [address] Infusion Chair 1, 2nd Floor [place] 09/01/2024 10:45 AM SUPERVISOR CELLARS Appointment [facility] Nuclear Medicine [address] [place] [address] [id number] Edilia Pettit NP [address] [facility] [address] [place] [address] documented as of this encounter Visit Diagnoses Not on filedocumented in this encounter Care Teams Perioperative Manager Relationship Specialty Start Date End Date Shilo Soares MD [address] [place] [address] PCP - General Internal Medicine 04/24/23 documented as of this encounter
--- OUTSIDE RECORDS SUMMARY | 2024-07-26 23:51 | XMS_ITS | Encounter Summary ---
Author Organization [facility] Address [address] [place] [address] Care Team Providers Care Chefs Name Role Phone Shilo Soares MD Primary Care Provider [phone] Encounter Details Date Type Department Care Team [...] (Late Contact Info) Description 08/04/2024 1:00 PM GAS WELL PUMPER Appointment [facility] 2nd [place] [address] [place] [address] Aviva Humphries MD [address] [place] [address] Infusion Chair 5, 2nd Floor [place] 08/25/2024 1:00 PM GAS WELL PUMPER Office Visit [facility] Gynecologic Oncology Hall [address] [place] [address] Edilia Pettit, CHELY [address] [facility] [address] [place] [address] 08/25/2024 1:30 PM GAS WELL PUMPER Appointment [facility] 2nd Fl [address] [place] [address] Aviva Humphries MD [address] [facility] [address] [place] [address] Infusion Chair 1, 2nd Floor [place] 09/01/2024 10:45 AM GAS WELL PUMPER Appointment [facility] Nuclear Medicine [address] [place] [address] [id number] Edilia Pettit, CHELY [address] [facility] [address] [place] [address] documented as of this encounter Visit Diagnoses Not on filedocumented in this encounter Care Teams Chefs Relationship Specialty Start Date End Date Shilo Soares MD [address] [place] [address] PCP - General Internal Medicine 04/24/23 documented as of this encounter
--- OUTSIDE RECORDS SUMMARY | 2024-07-26 23:51 | XMS_ITS | Encounter Summary ---
Author Organization [facility] Address [address] [place] [address] Care Team Providers Care Pad Assembler Name Role Phone Shilo Soares MD Primary Care Provider [phone] Encounter Details Date Type Department Care Team [...] Contact Info) Description 08/04/2024 1:00 PM BUSINESS BANKING MANAGER Appointment [facility] 2nd [place] [address] [place] [address] Aviva Humphries MD [address] [place] [address] Infusion Chair 5, 2nd Floor [place] 08/25/2024 1:00 PM BUSINESS BANKING MANAGER Office Visit [facility] Gynecologic Oncology Hall [address] [place] [address] Edilia Pettit, CHELY [address] [facility] [address] [place] [address] 08/25/2024 1:30 PM BUSINESS BANKING MANAGER Appointment [facility] 2nd Fl [address] [place] [address] Aviva Humphries MD [address] [place] [address] Infusion Chair 1, 2nd Floor [place] 09/01/2024 10:45 AM BUSINESS BANKING MANAGER Appointment [facility] Nuclear Medicine [address] [place] [address] [id number] Edilia Pettit, CHELY [address] [facility] [address] [place] [address] documented as of this encounter Visit Diagnoses Not on filedocumented in this encounter Care Teams Pad Assembler Relationship Specialty Start Date End Date Shilo Soares MD [address] [place] [address] PCP - General Internal Medicine 04/24/23 documented as of this encounter
--- OUTSIDE RECORDS SUMMARY | 2024-07-26 23:51 | XMS_ITS | Encounter Summary ---
Author Organization [facility] Address [address] [place] [address] Care Team Providers Care Technical Intern Name Role Phone Shilo Soares MD Primary Care Provider [phone] Encounter Details Date Type Department Care Team [...] (Late Contact Info) Description 08/04/2024 1:00 PM ETL ANALYST Appointment [facility] 2nd [place] [address] [place] [address] Aviva Humphries MD [address] [place] [address] Infusion Chair 5, 2nd Floor [place] 08/25/2024 1:00 PM ETL ANALYST Office Visit [facility] Gynecologic Oncology Hall [address] [place] [address] Edilia Pettit, CHELY [address] [facility] [address] [place] [address] 08/25/2024 1:30 PM ETL ANALYST Appointment [facility] 2nd Fl [address] [place] [address] Aviva Humphries MD [address] [facility] [address] [place] [address] Infusion Chair 1, 2nd Floor [place] 09/01/2024 10:45 AM ETL ANALYST Appointment [facility] Nuclear Medicine [address] [place] [address] [id number] Edilia Pettit, CHELY [address] [facility] [address] [place] [address] documented as of this encounter Visit Diagnoses Not on filedocumented in this encounter Care Teams Technical Intern Relationship Specialty Start Date End Date Shilo Soares MD [address] [place] [address] PCP - General Internal Medicine 04/24/23 documented as of this encounter
--- OUTSIDE RECORDS SUMMARY | 2024-07-26 23:51 | XMS_ITS | Encounter Summary ---
Author Organization [facility] Address [address] [place] [address] Care Team Providers Care Geophysical Manager Name Role Phone Shilo Soares MD Primary Care Provider [phone] Encounter Details Date Type Department Care Team [...] (Late Contact Info) Description 08/04/2024 1:00 PM ERGONOMICS CONSULTANT Appointment [facility] 2nd [place] [address] [place] [address] Aviva Humphries MD [address] [place] [address] Infusion Chair 5, 2nd Floor [place] 08/25/2024 1:00 PM ERGONOMICS CONSULTANT Office Visit [facility] Gynecologic Oncology Hall [address] [place] [address] Edilia Pettit, CHELY [address] [facility] [address] [place] [address] 08/25/2024 1:30 PM ERGONOMICS CONSULTANT Appointment [facility] 2nd Fl [address] [place] [address] Aviva Humphries MD [address] [facility] [address] [place] [address] Infusion Chair 1, 2nd Floor [place] 09/01/2024 10:45 AM ERGONOMICS CONSULTANT Appointment [facility] Nuclear Medicine [address] [place] [address] [id number] Edilia Pettit, CHELY [address] [facility] [address] [place] [address] documented as of this encounter Visit Diagnoses Not on filedocumented in this encounter Care Teams Geophysical Manager Relationship Specialty Start Date End Date Shlio Soares MD [address] [place] [address] PCP - General Internal Medicine 04/24/23 documented as of this encounter
--- OUTSIDE RECORDS SUMMARY | 2024-07-26 23:51 | XMS_ITS | Encounter Summary ---
Author Organization [facility] Address [address] [place] [address] Care Team Providers Care Concrete Form Setter And Finisher Name Role Phone Shilo Soares MD Primary Care Provider [phone] Encounter Details Date Type Department Care Team [...] (Late Contact Info) Description 08/04/2024 1:00 PM STRAIGHT CUTTER Appointment [facility] 2nd [place] [address] [place] [address] Aviva Humphries MD [address] [place] [address] Infusion Chair 5, 2nd Floor [place] 08/25/2024 1:00 PM STRAIGHT CUTTER Office Visit [facility] Gynecologic Oncology Hall [address] [place] [address] Edilia Pettit, CHELY [address] [facility] [address] [place] [address] 08/25/2024 1:30 PM STRAIGHT CUTTER Appointment [facility] 2nd Fl [address] [place] [address] Aviva Humphries MD [address] [place] [address] Infusion Chair 1, 2nd Floor [place] 09/01/2024 10:45 AM STRAIGHT CUTTER Appointment [facility] Nuclear Medicine [address] [place] [address] [id number] Edilia Pettit, CHELY [address] [facility] [address] [place] [address] documented as of this encounter Visit Diagnoses Not on filedocumented in this encounter Care Teams Concrete Form Setter And Finisher Relationship Specialty Start Date End Date Shilo Soares MD [address] [place] [address] PCP - General Internal Medicine 04/24/23 documented as of this encounter
--- OUTSIDE RECORDS SUMMARY | 2024-07-26 23:51 | XMS_ITS | Encounter Summary ---
Author Organization [facility] Address [address] [place] [address] Care Team Providers Care Boiler Control Room Operator Name Role Phone Shilo Soares MD Primary Care Provider [phone] Encounter Details Date Type Department Care Team [...] (Late Contact Info) Description 08/04/2024 1:00 PM DUPLICATING MACHINE OPERATOR Appointment [facility] 2nd [place] [address] [place] [address] Aviva Humphries MD [address] [place] [address] Infusion Chair 5, 2nd Floor [place] 08/25/2024 1:00 PM DUPLICATING MACHINE OPERATOR Office Visit [facility] Gynecologic Oncology Hall [address] [place] [address] Edilia Pettit, CHELY [address] [facility] [address] [place] [address] 08/25/2024 1:30 PM DUPLICATING MACHINE OPERATOR Appointment [facility] 2nd Fl [address] [place] [address] Aviva Humphries MD [address] [place] [address] Infusion Chair 1, 2nd Floor [place] 09/01/2024 10:45 AM DUPLICATING MACHINE OPERATOR Appointment [facility] Nuclear Medicine [address] [place] [address] [id number] Edilia Pettit, CHELY [address] [facility] [address] [place] [address] documented as of this encounter Visit Diagnoses Not on filedocumented in this encounter Care Teams Boiler Control Room Operator Relationship Specialty Start Date End Date Shilo Soares MD [address] [place] [address] PCP - General Internal Medicine 04/24/23 documented as of this encounter
--- OUTSIDE RECORDS SUMMARY | 2024-07-26 23:51 | XMS_ITS | Encounter Summary ---
Author Organization [facility] Address [address] [place] [address] Care Team Providers Care Merchandise Appraiser Name Role Phone Shilo Soares MD Primary Care Provider [phone] Encounter Details Date Type Department Care Team [...] (Late Contact Info) Description 08/04/2024 1:00 PM MANAGEMENT LECTURER Appointment [facility] 2nd [place] [address] [place] [address] Aviva Humphries MD [address] [place] [address] Infusion Chair 5, 2nd Floor [place] 08/25/2024 1:00 PM MANAGEMENT LECTURER Office Visit [facility] Gynecologic Oncology Hall [address] [place] [address] Edilia Pettit, CHELY [address] [facility] [address] [address] [place] [address] 08/25/2024 1:30 PM MANAGEMENT LECTURER Appointment [facility] 2nd Fl [address] [place] [address] Aviva Humphries MD [address] [facility] [address] [place] [address] Infusion Chair 1, 2nd Floor [place] 09/01/2024 10:45 AM MANAGEMENT LECTURER Appointment [facility] Nuclear Medicine [address] [place] [address] [id number] Edilia Pettit, CHELY [address] [facility] [address] [place] [address] documented as of this encounter Visit Diagnoses Not on filedocumented in this encounter Care Teams Merchandise Appraiser Relationship Specialty Start Date End Date Shilo Soares MD [address] [place] [address] PCP - General Internal Medicine 04/24/23 documented as of this encounter
--- OUTSIDE RECORDS SUMMARY | 2024-07-26 23:51 | XMS_ITS | Encounter Summary ---
Author Organization Address [address] [place] [address] Care Team Providers Care Ground Mixer Name Role Phone Shilo Soares MD Primary Care Provider [phone] Encounter Details Date Type Department Care Team [...] (Late Contact Info) Description 08/04/2024 1:00 PM AGENTS' RECORDS CLERK Appointment [facility] 2nd Ne [address] [place] [address] Aviva Humphries MD [address] [place] [address] Infusion Chair 5, 2nd Floor [place] 08/25/2024 1:00 PM AGENTS' RECORDS CLERK Office Visit [facility] Gynecologic Oncology Hall [address] [place] [address] Edilia Pettit, CHELY [address] [facility] [address] [place] [address] 08/25/2024 1:30 PM AGENTS' RECORDS CLERK Appointment [facility] 2nd Fl [address] [place] [address] Aviva Humphries MD [address] [facility] [address] [place] [address] Infusion Chair 1, 2nd Floor [place] 09/01/2024 10:45 AM AGENTS' RECORDS CLERK Appointment [facility] Nuclear Medicine [address] [place] [address] [id number] Edilia Pettit, CHELY [address] [facility] [address] [place] [address] documented as of this encounter Visit Diagnoses Not on filedocumented in this encounter Care Teams Ground Mixer Relationship Specialty Start Date End Date Shilo Soares MD [address] [place] [address] PCP - General Internal Medicine 04/24/23 documented as of this encounter
--- OUTSIDE RECORDS SUMMARY | 2024-07-26 23:51 | XMS_ITS | Encounter Summary ---
Author Organization [facility] Address [address] [place] [address] Care Team Providers Care Trailer Rental Clerk Name Role Phone Shilo Soares MD Primary Care Provider [phone] Encounter Details Date Type Department Care Team [...] (Late Contact Info) Description 08/04/2024 1:00 PM TRACTOR TRAILER DRIVER Appointment [facility] 2nd Ar [address] [place] [address] Aviva Humphries MD [address] [place] [address] Infusion Chair 5, 2nd Floor Hall 08/25/2024 1:00 PM TRACTOR TRAILER DRIVER Office Visit [facility] Gynecologic Oncology Hall [address] [place] [address] Edilia Pettit, CHELY [address] [facility] [facility] [facility] [address] [place] [address] 08/25/2024 1:30 PM TRACTOR TRAILER DRIVER Appointment [facility] 2nd Fl [address] [place] [address] Aviva Humphries MD [address] [place] [address] Infusion Chair 1, 2nd Floor [place] 09/01/2024 10:45 AM TRACTOR TRAILER DRIVER Appointment [facility] Nuclear Medicine [address] [place] [address] [id number] Edilia Pettit, CHELY [address] [facility] [address] [place] [address] documented as of this encounter Visit Diagnoses Not on filedocumented in this encounter Care Teams Trailer Rental Clerk Relationship Specialty Start Date End Date Shilo Soares MD [address] [place] [address] PCP - General Internal Medicine 04/24/23 documented as of this encounter
--- OUTSIDE RECORDS SUMMARY | 2024-07-26 23:52 | XMS_ITS | Encounter Summary ---
Author Organization [facility] Address [address] [place] [address] Care Team Providers Care Bowl Sander Name Role Phone Shilo Soares MD Primary Care Provider [phone] Encounter Details Date Type Department Care Team (Late Contact Info) Description 12/28/2023 External Device Data STL ABSTRACTION Provider, Abstract [...] (Late Contact Info) Description 08/04/2024 1:00 PM TOP COATER Appointment [facility] 2nd Al [address] [place] [address] Aviva Humphries MD [address] [place] [address] Infusion Chair 5, 2nd Floor Hall 08/25/2024 1:00 PM TOP COATER Office Visit [facility] Gynecologic Oncology Hall [address] [place] [address] Edilia Pettit, CHELY [address] [facility] [address] [place] [phone] 08/25/2024 1:30 PM TOP COATER Appointment [facility] 2nd Fl [address] [place] [address] Aviva Humphries MD [address] [place] [address] Infusion Chair 1, 2nd Floor [place] 09/01/2024 10:45 AM TOP COATER Appointment [facility] Nuclear Medicine [address] [place] [address] [id number] Edilia Pettit, CHELY [address] [facility] [address] [place] [address] documented as of this encounter Visit Diagnoses Not on filedocumented in this encounter Care Teams Bowl Sander Relationship Specialty Start Date End Date Shilo Soares MD [address] [place] [address] PCP - General Internal Medicine 04/24/23 documented as of this encounter
--- OUTSIDE RECORDS SUMMARY | 2024-07-26 23:52 | XMS_ITS | Encounter Summary ---
Author Organization [facility] Address [address] [place] [address] Care Team Providers Care Military Professional Name Role Phone Shilo Soares MD Primary Care Provider [phone] Encounter Details Date Type Department Care Team (Late Contact Info) Description 01/10/2024 External Device Data STL ABSTRACTION Provider, Abstract [...] (Late Contact Info) Description 08/04/2024 1:00 PM SERVICE ADVOCATE CONTACT Appointment [facility] 2nd [place] [address] [place] [address] Aviva Humphries MD [address] [place] [address] Infusion Chair 5, 2nd Floor Hall 08/25/2024 1:00 PM SERVICE ADVOCATE CONTACT Office Visit [facility] Gynecologic Oncology Hall [address] [place] [address] Edilia Pettit, CHELY [address] [facility] [address] [place] [address] 08/25/2024 1:30 PM SERVICE ADVOCATE CONTACT Appointment [facility] 2nd Fl [address] [place] [address] Aviva Humphries MD [address] [place] [address] Infusion Chair 1, 2nd Floor [place] 09/01/2024 10:45 AM SERVICE ADVOCATE CONTACT Appointment [facility] Nuclear Medicine [address] [place] [address] [id number] Edilia Pettit, CHELY [address] [facility] [address] [place] [address] documented as of this encounter Visit Diagnoses Not on filedocumented in this encounter Care Teams Military Professional Relationship Specialty Start Date End Date Shilo Soares MD [address] [place] [address] PCP - General Internal Medicine 04/24/23 documented as of this encounter
--- OUTSIDE RECORDS SUMMARY | 2024-07-26 23:52 | XMS_ITS | Encounter Summary ---
Author Organization [facility] Address [address] [place] [address] Care Team Providers Care Freight Forwarder Name Role Phone Shilo Soares MD Primary Care Provider [phone] Encounter Details Date Type Department Care Team (Late Contact Info) Description 01/08/2024 External Device Data STL ABSTRACTION Provider, Abstract [...] Contact Info) Description 08/04/2024 1:00 PM POWER TOOL REPAIR TECHNICIAN Appointment [facility] 2nd N[place] [address] [place] [address] Aviva Humphries MD [address] [place] [address] Infusion Chair 5, 2nd Floor [place] 08/25/2024 1:00 PM POWER TOOL REPAIR TECHNICIAN Office Visit [facility] Gynecologic Oncology Hall [address] [place] [address] Edilia Pettit, CHELY [address] [place] [phone] 08/25/2024 1:30 PM POWER TOOL REPAIR TECHNICIAN Appointment [facility] 2nd Fl [address] [place] [address] Aviva Humphries MD [address] [place] [address] Infusion Chair 1, 2nd Floor [place] 09/01/2024 10:45 AM POWER TOOL REPAIR TECHNICIAN Appointment [facility] Nuclear Medicine [address] [place] [address] [id number] Edilia Pettit, CHELY [address] [facility] [address] [place] [address] documented as of this encounter Visit Diagnoses Not on filedocumented in this encounter Care Teams Freight Forwarder Relationship Specialty Start Date End Date Shilo Soares MD [address] [place] [address] PCP - General Internal Medicine 04/24/23 documented as of this encounter
--- OUTSIDE RECORDS SUMMARY | 2024-07-26 23:52 | XMS_ITS | Encounter Summary ---
Author Organization [facility] Address [address] [place] [address] Care Team Providers Care Laboratory Animal Caretaker Name Role Phone Shilo Soares MD Primary Care Provider [phone] Encounter Details Date Type Department Care Team (Late Contact Info) Description 01/05/2024 External Device Data STL ABSTRACTION Provider, Abstract [...] (Late Contact Info) Description 08/04/2024 1:00 PM PARCEL POST CARRIER Appointment [facility] 2nd [place] [address] [place] [address] Aviva Humphries MD [address] [place] [address] Infusion Chair 5, 2nd Floor [place] 08/25/2024 1:00 PM PARCEL POST CARRIER Office Visit [facility] Gynecologic Oncology Hall [address] [place] [address] Edilia Pettit, CHELY [address] [place] [address] 08/25/2024 1:30 PM PARCEL POST CARRIER Appointment [facility] 2nd Fl [address] [place] [address] Aviva Humphries MD [address] [place] [address] Infusion Chair 1, 2nd Floor [place] 09/01/2024 10:45 AM PARCEL POST CARRIER Appointment [facility] Nuclear Medicine [address] [place] [address] [id number] Edilia Pettit, CHELY [address] [facility] [address] [place] [address] documented as of this encounter Visit Diagnoses Not on filedocumented in this encounter Care Teams Laboratory Animal Caretaker Relationship Specialty Start Date End Date Shilo Soares MD [address] [place] [address] PCP - General Internal Medicine 04/24/23 documented as of this encounter
--- OUTSIDE RECORDS SUMMARY | 2024-07-26 23:52 | XMS_ITS | Encounter Summary ---
Author Organization [facility] Address [address] [place] [address] Care Team Providers Care Sports Psychologist Name Role Phone Shilo Soares MD Primary Care Provider [phone] Encounter Details Date Type Department Care Team (Late Contact Info) Description 01/01/2024 External Device Data STL ABSTRACTION Provider, Abstract [...] (Late Contact Info) Description 08/04/2024 1:00 PM EXECUTIVE CHAIRMAN Appointment [facility] 2nd Nc [address] [place] [address] Aviva Humphries MD [address] [place] [address] Infusion Chair 5, 2nd Floor [place] 08/25/2024 1:00 PM EXECUTIVE CHAIRMAN Office Visit [facility] Gynecologic Oncology Hall [address] [place] [address] Edilia Pettit, CHELY [address] [facility] [address] [place] [address] 08/25/2024 1:30 PM EXECUTIVE CHAIRMAN Appointment [facility] 2nd Fl [address] [place] [address] Aviva Humphries MD [address] [place] [address] Infusion Chair 1, 2nd Floor [place] 09/01/2024 10:45 AM EXECUTIVE CHAIRMAN Appointment [facility] Nuclear Medicine [address] [place] [address] [id number] Edilia Pettit, CHELY [address] [facility] [address] [place] [address] documented as of this encounter Visit Diagnoses Not on filedocumented in this encounter Care Teams Sports Psychologist Relationship Specialty Start Date End Date Shilo Soares MD [address] [place] [address] PCP - General Internal Medicine 04/24/23 documented as of this encounter
--- OUTSIDE RECORDS SUMMARY | 2024-07-26 23:52 | XMS_ITS | Encounter Summary ---
Author Organization [employer] Address [address] [place] [address] Care Team Providers Care Assistant Designer Name Role Phone Shilo Soares MD Primary Care Provider [phone] Reason for Visit * Tx/Med Therapy Plan Auth (Routine) - Authorized Specialty Diagnoses / Procedures Referred By Alsion gomez Referred To Contact Diagnoses Malignant neoplasm of ovary, unspecified laterality Encounter for antineoplastic chemotherapy Nausea Procedures AR PACLITAXEL INJECTION AR CARBOPLATIN INJECTION AR INJ MVASI 10 MG AR FOSAPREPITANT INJECTION AR PALONOSETRON HCL AR DEXAMETHASONE SODIUM PHOS AR METHYLPREDNISOLONE INJECTION AR DIPHENHYDRAMINE HCL INJECTIO AR INJECTION, FAMOTIDINE, 20 MG TAXOL, CARBO, MVASI, EMEND, ALOXI, DECADRON, SOLU MEDROL, BENADRYL, PEPCID Aviva Humphries MD [address] [facility] [address] [place] [address] [facility] 2nd Floor [place] [address] [place] [address] Referral ID Status Reason Start Date Expiration Date V isits Requested Visits Authorized [id number] Authorized 05/20/2023 05/26/2025 99 99 Encounter Details Date Type Department Care Team (Latest Contact Info) Description 01/07/2024 11:47 AM CDT - 01/07/2024 11:59 PM CDT Hospital Encounter [facility] Infusion Center 2nd Fl [address] [place] [address] Aviav Humphries MD [address] [facility] [address] [place] [address] Infusion Chair 2, 2nd Floor [...] Sign Reading Time Taken Comments Blood Pressure - - Pulse - - Temperature - - Respiratory Rate - - Oxygen Saturation - - Inhaled Oxygen Concentration - - Weight 49.4 kg (108 lb 12.8 oz) 024 12:38 PM CDT Height - - Body Mass Index 17.56 12/16/2023 1:23 PM CDT documented in this encounter Medications at [...] bedtime. 02/26/2021 fluticasone propionate (FLONASE) 50 mcg/spray [place], Suspension nasal inhaler Administer 2 Sprays in each nostril daily. omega-3 fatty acids-fish oil 300-1,000 mg Capsule Take 2 Capsules by mouth daily. olaparib 150 mg tablet Take 2 Tablets (300 mg) by mouth 2 times daily. 120 Tablet 3 11/19/2023 02/15/2024 documented as of this encounter Progress Notes * Terra Nieves RN - 01/07/2024 1:00 PM CDT Pt admitted to infusion [...] condition. Pt verbalized understanding. Next appointment is January 27 at 20 at 12pm. Discharged home. documented in this encounter Plan of Treatment Upcoming Encounters Date Type Department Care Team (Late st Contact Info) Description 08/04/2024 1:00 PM PARAMEDICAL AIDE Appointment [facility] 2nd [place] [address] [place] [address] Aviva Humphries MD [address] [place] [address] Infusion Chair 5, 2nd Floor [place] 08/25/2024 1:00 PM PARAMEDICAL AIDE Office Visit [facility] Gynecologic Oncology Hall [address] [facility] [address] [place] [address] Edilia Pettit NP [address] [facility] [address] [place] [address] 08/25/2024 1:30 PM PARAMEDICAL AIDE Appointment [facility] [address] [place] [address] Aviva Humphries MD [address] [facility] [address] [place] [address] Infusion Chair 1, 2nd [facility] 09/01/2024 10:45 AM PARAMEDICAL AIDE Appointment [facility] Nuclear Medicine [address] [place] [address] [id number] Edilia Pettit, CHELY [address] [address] documented as of this encounter Results * (ABNORMAL) URINALYSIS WITH REFLEX MICROSCOPIC (01/07/2024 11:35 AM CDT) COLOR UA Pale Yellow Pale to Dark Yellow 01/07/2024 12:16 PM CDT [facility] LABORATORY SERVICES [facility] CLARITY UA Clear Clear 01/07/2024 12:16 PM CDT [facility] LABORATORY SERVICES [facility] SPECIFIC GRAVITY UA 1.004 1.003 - 1.035 01/07/2024 12:16 PM CDT [facility] LABORATORY [facility] PH UA 5.0 5.0 - 8.0 01/07/2024 12:16 PM CDT [facility] LABORATORY [facility] LEUKOCYTE ESTERASE UA Negative Negative 01/07/2024 12:16 PM CDT [facility] LABORATORY SERVICES - [facility] NITRITE UA Negative Negative 01/07/2024 12:16 PM CDT [facility] LABORATORY SERVICES - . [facility] PROTEIN UA Negative Negative 01/07/2024 12:16 PM CDT [facility] LABORATORY SERVICES - . [facility] GLUCOSE UA Negative Negative 01/07/2024 12:16 PM CDT [facility] LABORATORY SERVICES - [facility] KETONES UA Negative Negative 01/07/2024 12:16 PM CDT [facility] LABORATORY SERVICES - . [facility] UROBILINOGEN UA Normal <2.0 mg/dL 12:16 PM CDT [facility] LABORATORY SERVICES - [facility] BILIRUBIN UA Negative Negative 01/07/2024 12:16 PM T [facility] LABORATORY SERVICES - . [facility] BLOOD UA 1+(A) Negative 01/07/2024 12:16 PM T [facility] LABORATORY SERVICES - . [facility] WBC UA 0-2 0 - 2 /hpf 01/07/2024 12:16 PM CDT [facility] LABORATORY SERVICES - . [facility] RBC UA 0-2 0 - 2 /hpf 01/07/2024 12:16 PM CDT [facility] LABORATORY SERVICES - [facility] BACTERIA UA Negative Negative /hpf 01/07/2024 12:16 PM CDT [facility] LABORATORY SERVICES - [facility] EPITHELIAL CELLS, URINE 0-5 0 - 5 /hpf 01/07/2024 12:16 PM T [facility] LABORATORY SERVICES - [facility] Urine URINE SPECIMEN OBTAINED BY CLEAN CATCH PROCEDURE / Unknown Collection / Unknown 01/07/2024 11:35 AM CDT 01/07/2024 11:54 AM CDT Aviva Humphries MD URINE ORDERABLES [facility] [employer] SERVICES - [facility] CLIA# [id number] [address] [place] [address] * CANCER ANTIGEN 125 (01/07/2024 11:35 AM CDT) CA 125 7.1 <35.0 U/mL 01/07/2024 12:51 PM CDT [facility] LABORATORY SERVICES - [facility] Blood Collection / Unknown 01/07/2024 11:35 AM CDT 01/07/2024 11:55 AM CDT [facility] LABORATORY SERVICES [facility] - 01/07/2024 12:51 PM CDT The concentration of CA 125 in a given specimen, as determined by assays from different manufacturers, can vary because of differences in assay methods and reagent specificity. Values obtained with different assay methods cannot be used interchangeably. The testing method in use is the DENAE Electrochemiluminescence immunoassay. Results cannot be interpreted as absolute evidence of the presence or absence of malignancy. Values should be interpreted with caution during . Aviva Humphries MD CHEMISTRY ORDERABLES [facility] LABORATORY SERVICES [facility] CLIA# [id number] 5 [facility] [place] [address] * (ABNORMAL) COMPREHENSIVE METABOLIC PANEL (01/07/2024 11:35 AM CDT) SODIUM 139 136 - 145 mmol/L 01/07/2024 12:40 PM CDT [facility] LABORATORY SERVICES [facility] POTASSIUM 4.0 3.5 - 5.0 mmol/L 01/07/2024 12:40 PM T [facility] LABORATORY [facility] CHLORIDE 103 98 - 107 mmol/L 01/07/2024 12:40 PM T [facility] LABORATORY [facility] CO2 25 22 - 29 mmol/L 01/07/2024 12:40 PM T [facility] LABORATORY [facility] CALCIUM 9.7 8.6 - 10.2 mg/dL 01/07/2024 12:40 PM T [facility] LABORATORY [facility] BUN 11 8 - 23 mg/dL 01/07/2024 12:40 PM CDT [facility] LABORATORY SERVICES [facility]. [facility] CREATININE 0.86 0.51 - 0.95 mg/dL 01/07/2024 12:40 PM T [facility] LABORATORY [facility] GLUCOSE 121(H) 74 - 99 mg/dL 01/07/2024 12:40 PM T [facility] LABORATORY [facility]. [facility] TOTAL PROTEIN 7.5 6.7 - 8.6 g/dL 01/07/2024 12:40 PM [facility] ALBUMIN 4.3 3.5 - 5.2 g/dL 01/07/2024 12:40 PM [facility] BILIRUBIN TOTAL 0.5 0.2 - 1.1 mg/dL 01/07/2024 12:40 PM [facility] ALKALINE PHOSPHATASE 90 35 - 104 U/L 01/07/2024 12:40 PM [facility] AST 21 <33 U/L 01/07/2024 12:40 PM [facility] ALT 24 <34 U/L 01/07/2024 12:40 PM [facility] GFR >60 >=60 mL/min/1.7 3 sq meter 01/07/2024 12:40 PM [facility] Comment:eGFR calculated with 2020 CKD-EPI equation. Vegetarian diet, extremely high or low muscle mass, and may affect results. Cystatin C with Glomerular Filtration Rate is a suitable alternative for these patients. ANION GAP 11 8 - 16 mmol/L 01/07/2024 12:40 PM [facility] Blood Collection / Unknown 01/07/2024 11:35 AM CDT 01/07/2024 11:55 AM CDT [facility] - 01/07/2024 12:40 PM CDT Samples containing indocyanine green cause interferences on Total and/or Direct Bilirubin and must not be measured. Aviva Humphries MD CHEMISTRY ORDERABLES [facility] CLIA# [id number] [address] [facility] [place] [address] * (ABNORMAL) CBC WITH DIFFERENTIAL (01/07/2024 11:35 AM CDT) WBC 5.6 4.0 - 9.8 K/uL 01/07/2024 11:55 AM [facility] RBC 3.04(L) 3.90 - 4.90 M/uL 01/07/2024 11:55 AM CDT [facility] LABORATORY SERVICES - . [facility] HEMOGLOBIN 10.8(L) 11.8 - 14.8 g/dL 01/07/2024 11:55 AM CDT [facility] LABORATORY SERVICES - . [place] HEMATOCRIT 31.3(L) 35.5 - 44.0 % 01/07/2024 11:55 AM CDT [facility] LABORATORY SERVICES - . [facility] MCV 103.0(H) 82.0 - 99.0 fL 01/07/2024 11:55 AM CDT [facility] LABORATORY SERVICES - [facility] MCH 35.5(H) 27.2 - 32.6 pg 01/07/2024 11:55 AM CDT [facility] LABORATORY SERVICES - [facility] MCHC 34.5 31.5 - 35.5 g/dL 01/07/2024 11:55 AM CDT [facility] LABORATORY SERVICES - [facility] RDW 18.6(H) 11.5 - 14.5 % 01/07/2024 11:55 AM CDT [facility] LABORATORY SERVICES - [facility] RDW-STDEV 69.3(H) 37.1 - 48.7 fL 01/07/2024 11:55 AM CDT [facility] LABORATORY SERVICES - . [place] PLATELETS 137(L) 140 - 350 K/uL 01/07/2024 11:55 AM CDT [facility] LABORATORY SERVICES - . [facility] MPV 9.0(L) 9.3 - 12.4 fL 01/07/2024 11:55 AM CDT [facility] LABORATORY SERVICES - . [place] NEUTROPHILS 60 % 01/07/2024 11:55 AM CDT [facility] LABORATORY SERVICES - [facility] LYMPHOCYTES 34 % 01/07/2024 11:55 AM CDT [facility] LABORATORY SERVICES - [facility] MONOCYTES 4 % 01/07/2024 11:55 AM CDT [facility] LABORATORY SERVICES - [facility] EOSINOPHILS 1 % 01/07/2024 11:55 AM CDT [facility] LABORATORY SERVICES - [facility] BASOPHILS 1 % 01/07/2024 11:55 AM CDT [facility] LABORATORY SERVICES - [facility] IMMATURE GRANULOCYTES 0 % 01/07/2024 11:55 AM CDT [employer] LABORATORY SERVICES - . [facility] NEUTROPHIL ABSOLUTE 3.37 1.90 - 7.00 K/uL 01/07/2024 11:55 AM CDT [facility] LABORATORY SERVICES - . [place] LYMPHOCYTE ABSOLUTE 1.88 0.70 - 4.50 K/uL 01/07/2024 11:55 AM CDT [facility] LAB[facility]ATORY SERVICES - [facility] MONOCYTE ABSOLUTE 0.23 0.10 - 1.30 K/uL 01/07/2024 11:55 AM CDT [facility] LABORATORY SERVICES - [facility] EOSINOPHIL ABSOLUTE 0.06 0.00 - 0.70 K/uL 01/07/2024 11:55 AM CDT [facility] LABORATORY SERVICES - [facility] BASOPHILS ABSOLUTE 0.04 0.00 - 0.20 K/uL 01/07/2024 11:55 AM CDT [facility] LABORATORY SERVICES - . [place] IMMATURE GRANULOCYTES ABSOLUTE 0.02 0.00 - 0.03 K/uL 01/07/2024 11:55 AM CDT [facility] LABORATORY SERVICES - [facility] Blood Collection / Unknown 01/07/2024 11:35 AM CDT 01/07/2024 11:52 AM CDT Aviva Humphries MD HEMATOLOGY ORDERABLE S [facility] LABORATORY SERVICES [facility]# [id number] [address] [place] [address] documented in this encounter Visit Diagnoses Diagnosis [...] IV, ONE TIME ONLY, 1 dose, On Thu01/07/24 at 1300, Routine Rate Verify 01/07/2024 1:20 PM CDT 291.8 mL/hr New Bag 01/07/2024 1:20 PM CDT 773 mg 291.8 mL/hr sodium chloride 0.9% infusion IV, at 30-999 mL/hr, CONTINUOUS, Starting on Thu01/07/24 at 1300, Until Thu01/08/24 at 0325, Routine Rate Change 01/07/2024 1:49 PM CDT 300 mL/hr New Bag 01/07/2024 1:21 PM CDT 30 mL/hr 30 mL/hr documented in this encounter Care Teams Assistant Designer Relationship Specialty Start Date End Date Shilo Soares MD [address] [place] [phone] PCP - General Internal Medicine 04/24/23 documented as of this encounter
--- OUTSIDE RECORDS SUMMARY | 2024-07-26 23:52 | XMS_ITS | Encounter Summary ---
Author Organization [facility] Address [address] [place] [address] Care Team Providers Care Case Operator Name Role Phone Shilo Soares MD Primary Care Provider [phone] Encounter Details Date Type Department Care Team (Late Contact Info) Description 01/03/2024 External Device Data STL ABSTRACTION Provider, Abstract [...] (Late Contact Info) Description 08/04/2024 1:00 PM INSURANCE PREMIUM AUDITOR Appointment [facility] [address] [place] [address] Aviva Humphries MD [address] [place] [address] Infusion Chair 5, 2nd Floor [place] 08/25/2024 1:00 PM INSURANCE PREMIUM AUDITOR Office Visit [facility] Gynecologic Oncology Hall [address] [place] [address] Edilia Pettit, CHELY [address] [place] [address] 08/25/2024 1:30 PM INSURANCE PREMIUM AUDITOR Appointment [facility] 2nd Fl [address] [place] [address] Aviva Humphries MD [address] [place] [address] Infusion Chair 1, 2nd Floor [place] 09/01/2024 10:45 AM INSURANCE PREMIUM AUDITOR Appointment [facility] Nuclear Medicine [address] [place] [address] [id number] Edilia Pettit, CHELY [address] [facility] [address] [place] [address] documented as of this encounter Visit Diagnoses Not on filedocumented in this encounter Care Teams Case Operator Relationship Specialty Start Date End Date Shilo Soares MD [address] [place] [address] PCP - General Internal Medicine 04/24/23 documented as of this encounter
--- OUTSIDE RECORDS SUMMARY | 2024-07-26 23:52 | XMS_ITS | Encounter Summary ---
Author Organization [facility] Address [address] [place] [address] Care Team Providers Care Authorization Coordinator Name Role Phone Shilo Soares MD Primary Care Provider [phone] Encounter Details Date Type Department Care Team [...] Contact Info) Description 08/04/2024 1:00 PM CLINICAL TRIALS ASSISTANT Appointment [facility] [address] [place] [address] Aviva Humphries MD [address] [place] [address] Infusion Chair 5, 2nd Floor Hall 08/25/2024 1:00 PM CLINICAL TRIALS ASSISTANT Office Visit [facility] Gynecologic Oncology Hall [address] [place] [address] Edilia Pettit, CHELY [address] [address] [facility] [address] [place] [address] 08/25/2024 1:30 PM CLINICAL TRIALS ASSISTANT Appointment [facility] 2nd Fl [address] [place] [address] Aviva Humphries MD [address] [place] [address] Infusion Chair 1, 2nd Floor [place] 09/01/2024 10:45 AM CLINICAL TRIALS ASSISTANT Appointment [facility] Nuclear Medicine [address] [place] [address] [id number] Edilia Pettit, CHELY [address] [facility] [address] [place] [address] documented as of this encounter Visit Diagnoses Not on filedocumented in this encounter Care Teams Authorization Coordinator Relationship Specialty Start Date End Date Shilo Soares MD [address] [place] [address] PCP - General Internal Medicine 04/24/23 documented as of this encounter
--- OUTSIDE RECORDS SUMMARY | 2024-07-26 23:52 | XMS_ITS | Encounter Summary ---
Author Organization [facility] Address [address] [place] [address] Care Team Providers Care C4 Planner Name Role Phone Shilo Soares MD Primary Care Provider [phone] Encounter Details Date Type Department Care Team (Late Contact Info) Description 12/27/2023 External Device Data STL ABSTRACTION Provider, Abstract [...] Contact Info) Description 08/04/2024 1:00 PM NETWORK ENGINEER Appointment [facility] [address] [place] [address] Aviva Humphries MD [address] [place] [address] Infusion Chair 5, 2nd Floor Hall 08/25/2024 1:00 PM NETWORK ENGINEER Office Visit [facility] Gynecologic Oncology Hall [address] [place] [address] Edilia Pettit, CHELY [address] [address] [address] [place] [address] 08/25/2024 1:30 PM NETWORK ENGINEER Appointment [facility] 2nd Fl [address] [place] [address] Aviva Humphries MD [address] [place] [address] Infusion Chair 1, 2nd Floor [place] 09/01/2024 10:45 AM NETWORK ENGINEER Appointment [facility] Nuclear Medicine [address] [place] [address] [id number] Edilia Pettit, CHELY [address] [facility] [address] [place] [address] documented as of this encounter Visit Diagnoses Not on filedocumented in this encounter Care Teams C4 Planner Relationship Specialty Start Date End Date Shilo Soares MD [address] [place] [address] PCP - General Internal Medicine 04/24/23 documented as of this encounter
--- OUTSIDE RECORDS SUMMARY | 2024-07-26 23:52 | XMS_ITS | Encounter Summary ---
Author Organization [facility] Address [address] [place] [address] Care Team Providers Care Trim Master Operator Name Role Phone Shilo Soares MD Primary Care Provider [phone] Encounter Details Date Type Department Care Team (Late Contact Info) Description 01/02/2024 External Device Data STL ABSTRACTION Provider, Abstract [...] (Late Contact Info) Description 08/04/2024 1:00 PM VICE PRESIDENT EDUCATION Appointment [facility] [address] [place] [address] Aviva Humphries MD [address] [place] [address] Infusion Chair 5, 2nd Floor [place] 08/25/2024 1:00 PM VICE PRESIDENT EDUCATION Office Visit [facility] Gynecologic Oncology Hall [address] [place] [address] Edilia Pettit, CHELY [address] [facility] [facility] [address] [place] [address] 08/25/2024 1:30 PM VICE PRESIDENT EDUCATION Appointment [facility] 2nd Fl [address] [place] [address] Aviva Humphries MD [address] [place] [address] Infusion Chair 1, 2nd Floor [place] 09/01/2024 10:45 AM VICE PRESIDENT EDUCATION Appointment Randy [facility] Nuclear Medicine [address] [place] [address] [id number] Edilia Pettit, CHELY [address] [facility] [address] [place] [address] documented as of this encounter Visit Diagnoses Not on filedocumented in this encounter Care Teams Trim Master Operator Relationship Specialty Start Date End Date Shilo Soares MD [address] [place] [address] PCP - General Internal Medicine 04/24/23 documented as of this encounter
--- OUTSIDE RECORDS SUMMARY | 2024-07-26 23:52 | XMS_ITS | Encounter Summary ---
Author Organization [facility] Address [address] [place] [address] Care Team Providers Care Station Engineer Name Role Phone Shilo Soares MD Primary Care Provider [phone] Encounter Details Date Type Department Care Team [...] (Late Contact Info) Description 08/04/2024 1:00 PM CONFLICT RESOLUTION PROFESSIONAL Appointment [facility] Pr [address] [place] [address] Aviav Humphries MD [address] [place] [address] Infusion Chair 5, 2nd Floor Hall 08/25/2024 1:00 PM CONFLICT RESOLUTION PROFESSIONAL Office Visit [facility] Gynecologic Oncology Hall [address] [place] [address] Edilia Pettit, CHELY [address] [place] [address] 08/25/2024 1:30 PM CONFLICT RESOLUTION PROFESSIONAL Appointment [facility] 2nd Fl [address] [place] [address] Aviva Humphries MD [address] [facility] [address] [place] [address] Infusion Chair 1, 2nd Floor [place] 09/01/2024 10:45 AM CONFLICT RESOLUTION PROFESSIONAL Appointment [facility] Nuclear Medicine [address] [place] [address] [id number] Edilia Pettit, CHELY [address] [facility] [address] [place] [address] documented as of this encounter Visit Diagnoses Not on filedocumented in this encounter Care Teams Station Engineer Relationship Specialty Start Date End Date Shilo Soares MD [address] [place] [address] PCP - General Internal Medicine 04/24/23 documented as of this encounter
--- OUTSIDE RECORDS SUMMARY | 2024-07-26 23:52 | XMS_ITS | Encounter Summary ---
Author Organization [facility] Address [address] [place] [address] Care Team Providers Care Men'S Furnishings Salesperson Name Role Phone Shilo Soares MD Primary Care Provider [phone] Encounter Details Date Type Department Care Team (Late Contact Info) Description 12/30/2023 External Device Data STL ABSTRACTION Provider, Abstract [...] (Late Contact Info) Description 08/04/2024 1:00 PM COMMUNITY ENGAGEMENT COORDINATOR Appointment [facility] 2[facility] Tn [address] [place] [address] Aviva Humphries MD [address] [place] [address] Infusion Chair 5, 2nd Floor Hall 08/25/2024 1:00 PM COMMUNITY ENGAGEMENT COORDINATOR Office Visit [facility] Gynecologic Oncology Hall [address] [place] [address] Edilia Pettit, CHELY [address] [place] [address] 08/25/2024 1:30 PM COMMUNITY ENGAGEMENT COORDINATOR Appointment [facility] 2nd Fl [address] [place] [address] Aviva Humphries MD [address] [place] [address] Infusion Chair 1, 2nd Floor [place] 09/01/2024 10:45 AM COMMUNITY ENGAGEMENT COORDINATOR Appointment [facility] Nuclear Medicine [address] [place] [address] [id number] Edilia Pettit, CHELY [address] [facility] [address] [place] [address] documented as of this encounter Visit Diagnoses Not on filedocumented in this encounter Care Teams Men'S Furnishings Salesperson Relationship Specialty Start Date End Date Shilo Soares MD [address] [place] [address] PCP - General Internal Medicine 04/24/23 documented as of this encounter
--- OUTSIDE RECORDS SUMMARY | 2024-07-26 23:52 | XMS_ITS | Encounter Summary ---
Author Organization [facility] Address [address] [place] [address] Care Team Providers Care Cereal Chemist Name Role Phone Shilo Soares MD Primary Care Provider [phone] Encounter Details Date Type Department Care Team [...] Contact Info) Description 08/04/2024 1:00 PM POWER TRUCK DRIVER Appointment [facility] 2nd Nm [address] [place] [address] Aviva Humphries MD [address] [place] [address] Infusion Chair 5, 2nd Floor [place] 08/25/2024 1:00 PM POWER TRUCK DRIVER Office Visit [facility] Gynecologic Oncology Hall [address] [place] [address] Edilia Pettit, CHELY [address] [facility] [facility] [address] [place] [address] 08/25/2024 1:30 PM POWER TRUCK DRIVER Appointment [facility] 2nd Fl [address] [place] [address] Aviva Humphries MD [address] [place] [address] Infusion Chair 1, 2nd Floor [place] 09/01/2024 10:45 AM POWER TRUCK DRIVER Appointment Randy Hall [facility] Nuclear Medicine [address] [place] [address] [id number] Edilia Pettit, CHELY [address] [facility] [address] [place] [address] documented as of this encounter Visit Diagnoses Not on filedocumented in this encounter Care Teams Cereal Chemist Relationship Specialty Start Date End Date Shilo Soares MD [address] [place] [address] PCP - General Internal Medicine 04/24/23 documented as of this encounter
--- OUTSIDE RECORDS SUMMARY | 2024-07-26 23:52 | XMS_ITS | Encounter Summary ---
Author Organization [facility] Address [address] [place] [address] Care Team Providers Care Bargain Table Clerk Name Role Phone Shilo Soares MD Primary Care Provider [phone] Encounter Details Date Type Department Care Team [...] (Late Contact Info) Description 08/04/2024 1:00 PM MEMBERSHIP ADMINISTRATOR Appointment [facility] Sc [address] [place] [address] Aviva Humphries MD [address] [place] [address] Infusion Chair 5, 2nd Floor Hall 08/25/2024 1:00 PM MEMBERSHIP ADMINISTRATOR Office Visit [facility] Gynecologic Oncology Hall [address] [place] [address] Edilia Pettit, CHELY [address] [facility] [facility] [address] [place] [address] 08/25/2024 1:30 PM MEMBERSHIP ADMINISTRATOR Appointment [facility] 2nd Fl [address] [place] [address] Aviva Humphries MD [address] [place] [address] Infusion Chair 1, 2nd Floor [place] 09/01/2024 10:45 AM MEMBERSHIP ADMINISTRATOR Appointment [facility] Nuclear Medicine [address] [place] [address] [id number] Edilia Pettit, CHELY [address] [facility] [address] [place] [address] documented as of this encounter Visit Diagnoses Not on filedocumented in this encounter Care Teams Bargain Table Clerk Relationship Specialty Start Date End Date Shilo Soares MD [address] [place] [address] PCP - General Internal Medicine 04/24/23 documented as of this encounter
--- OUTSIDE RECORDS SUMMARY | 2024-07-26 23:52 | XMS_ITS | Encounter Summary ---
Author Organization [facility] Address [address] [place] [address] Care Team Providers Care Bag Mender Name Role Phone Shilo Soares MD Primary Care Provider [phone] Encounter Details Date Type Department Care Team (Late Contact Info) Description 01/07/2024 External Device Data STL ABSTRACTION Provider, Abstract [...] (Late Contact Info) Description 08/04/2024 1:00 PM GRIPPER ATTACHER Appointment [facility] 2[facility] Nd [address] [place] [address] Aviav Humphries MD [address] [place] [address] Infusion Chair 5, 2nd Floor Hall 08/25/2024 1:00 PM GRIPPER ATTACHER Office Visit [facility] Gynecologic Oncology Hall [address] [place] [address] Edilia Pettit, CHELY [address] [facility] [address] [place] [address] 08/25/2024 1:30 PM GRIPPER ATTACHER Appointment [facility] 2nd Fl [address] [place] [address] Aviva Humphries MD [address] [place] [address] Infusion Chair 1, 2nd Floor [place] 09/01/2024 10:45 AM GRIPPER ATTACHER Appointment [facility] Nuclear Medicine [address] [place] [address] [id number] Edilia Pettit, CHELY [address] [facility] [address] [place] [address] documented as of this encounter Visit Diagnoses Not on filedocumented in this encounter Care Teams Bag Mender Relationship Specialty Start Date End Date Shilo Soares MD [address] [place] [address] PCP - General Internal Medicine 04/24/23 documented as of this encounter
--- OUTSIDE RECORDS SUMMARY | 2024-07-26 23:52 | XMS_ITS | Encounter Summary ---
Author Organization [facility] Address [address] [place] [address] Care Team Providers Care Solo Truck Driver Name Role Phone Shilo Soares MD Primary Care Provider [phone] Encounter Details Date Type Department Care Team (Late Contact Info) Description 01/09/2024 External Device Data STL ABSTRACTION Provider, Abstract [...] Contact Info) Description 08/04/2024 1:00 PM MANAGER COSMETICS Appointment [facility] Al [address] [place] [address] Aviva Humphries MD [address] [place] [address] Infusion Chair 5, 2nd Floor Hall 08/25/2024 1:00 PM MANAGER COSMETICS Office Visit [facility] Gynecologic Oncology Hall [address] [place] [address] Edilia Pettit, CHELY [address] [facility] [address] [place] [address] 08/25/2024 1:30 PM MANAGER COSMETICS Appointment [facility] 2nd Fl [address] [place] [address] Aviva Humphries MD [address] [place] [address] Infusion Chair 1, 2nd Floor [place] 09/01/2024 10:45 AM MANAGER COSMETICS Appointment Randy [facility] Nuclear Medicine [address] [place] [address] [id number] Edilia Pettit, CHELY [address] [facility] [address] [place] [address] documented as of this encounter Visit Diagnoses Not on filedocumented in this encounter Care Teams Solo Truck Driver Relationship Specialty Start Date End Date Shilo Soares MD [address] [place] [address] PCP - General Internal Medicine 04/24/23 documented as of this encounter
--- OUTSIDE RECORDS SUMMARY | 2024-07-26 23:52 | XMS_ITS | Encounter Summary ---
Author Organization [facility] Address [address] [place] [address] Care Team Providers Care International Trade Compliance Manager Name Role Phone Shilo Soares MD Primary Care Provider [phone] Encounter Details Date Type Department Care Team [...] (Late Contact Info) Description 08/04/2024 1:00 PM BAKERY ASSOCIATE Appointment [facility] 2[facility] Ms [address] [place] [address] Aviva Humphries MD [address] [place] [address] Infusion Chair 5, 2nd Floor Hall 08/25/2024 1:00 PM BAKERY ASSOCIATE Office Visit [facility] Gynecologic Oncology Hall [address] [place] [address] Edilia Pettit, CHELY [address] [address] [place] [address] 08/25/2024 1:30 PM BAKERY ASSOCIATE Appointment [facility] 2nd Fl [address] [place] [address] Aviva Humphries MD [address] [place] [address] Infusion Chair 1, 2nd Floor [place] 09/01/2024 10:45 AM BAKERY ASSOCIATE Appointment [facility] Nuclear Medicine [address] [place] [address] [id number] Edilia Pettit, CHELY [address] [facility] [address] [place] [address] documented as of this encounter Visit Diagnoses Not on filedocumented in this encounter Care Teams International Trade Compliance Manager Relationship Specialty Start Date End Date Shilo Soares MD [address] [place] [address] PCP - General Internal Medicine 04/24/23 documented as of this encounter
--- OUTSIDE RECORDS SUMMARY | 2024-07-26 23:52 | XMS_ITS | Encounter Summary ---
Author Organization [facility] Address [address] [place] [address] Care Team Providers Care Director Of Academic Name Role Phone Shilo Soares MD Primary Care Provider [phone] Encounter Details Date Type Department Care Team (Late Contact Info) Description 12/26/2023 External Device Data STL ABSTRACTION Provider, Abstract [...] Contact Info) Description 08/04/2024 1:00 PM MANAGER OF REVENUE Appointment [facility] 2[facility] Nv [address] [place] [address] Aviva Humphries MD [address] [place] [address] Infusion Chair 5, 2nd Floor [place] 08/25/2024 1:00 PM MANAGER OF REVENUE Office Visit [facility] Gynecologic Oncology Hall [address] [place] [address] Edilia Pettit, CHELY [address] [facility] [address] [place] [address] 08/25/2024 1:30 PM MANAGER OF REVENUE Appointment [facility] 2nd Fl [address] [place] [address] Aviva Humphries MD [address] [place] [address] Infusion Chair 1, 2nd Floor [place] 09/01/2024 10:45 AM MANAGER OF REVENUE Appointment [facility] Nuclear Medicine [address] [place] [address] [id number] Edilia Pettit, CHELY [address] [facility] [address] [place] [address] documented as of this encounter Visit Diagnoses Not on filedocumented in this encounter Care Teams Director Of Academic Relationship Specialty Start Date End Date Shilo Soares MD [address] [place] [address] PCP - General Internal Medicine 04/24/23 documented as of this encounter
--- OUTSIDE RECORDS SUMMARY | 2024-07-26 23:52 | XMS_ITS | Encounter Summary ---
Author Organization [facility] Address [address] [place] [address] Care Team Providers Care Java Enterprise Architect Name Role Phone Shilo Soares MD Primary Care Provider [phone] Encounter Details Date Type Department Care Team [...] (Late Contact Info) Description 08/04/2024 1:00 PM LOCKET MAKER Appointment [facility] 2nd Nd [address] [place] [address] Aviva Humphries MD [address] [place] [address] Infusion Chair 5, 2nd Floor [place] 08/25/2024 1:00 PM LOCKET MAKER Office Visit [facility] Gynecologic Oncology Hall [address] [place] [address] Edilia Pettit, CHELY [address] [address] [place] [address] 08/25/2024 1:30 PM LOCKET MAKER Appointment [facility] 2nd Fl [address] [place] [address] Aviva Humphries MD [address] [place] [address] Infusion Chair 1, 2nd Floor [place] 09/01/2024 10:45 AM LOCKET MAKER Appointment [facility] Nuclear Medicine [address] [place] [address] [id number] Edilia Pettit, CHELY [address] [facility] [address] [place] [address] documented as of this encounter Visit Diagnoses Not on filedocumented in this encounter Care Teams Java Enterprise Architect Relationship Specialty Start Date End Date Shilo Soares MD [address] [place] [address] PCP - General Internal Medicine 04/24/23 documented as of this encounter
--- OUTSIDE RECORDS SUMMARY | 2024-07-26 23:52 | XMS_ITS | Encounter Summary ---
Author Organization [facility] Address [address] [place] [address] Care Team Providers Care Dental Detail Representative Name Role Phone Shilo Soares MD Primary Care Provider [phone] Encounter Details Date Type Department Care Team [...] (Late Contact Info) Description 08/04/2024 1:00 PM MORNING SHOW PRODUCER Appointment [facility] [place] [address] Aviva Humphries MD [address] [place] [address] Infusion Chair 5, 2nd Floor Hall 08/25/2024 1:00 PM MORNING SHOW PRODUCER Office Visit [facility] Gynecologic Oncology Hall [address] [place] [address] Edilia Pettit, CHELY [address] [place] [address] 08/25/2024 1:30 PM MORNING SHOW PRODUCER Appointment [facility] 2nd Fl [address] [place] [address] Aviva Humphries MD [address] [place] [address] Infusion Chair 1, 2nd Floor [place] 09/01/2024 10:45 AM MORNING SHOW PRODUCER Appointment [facility] Nuclear Medicine [address] [place] [address] [id number] Edilia Pettit, CHELY [address] [facility] [address] [place] [address] documented as of this encounter Visit Diagnoses Not on filedocumented in this encounter Care Teams Dental Detail Representative Relationship Specialty Start Date End Date Shilo Soares MD [address] [place] [address] PCP - General Internal Medicine 04/24/23 documented as of this encounter
--- OUTSIDE RECORDS SUMMARY | 2024-07-26 23:52 | XMS_ITS | Encounter Summary ---
Author Organization [facility] Address [address] [place] [address] Care Team Providers Care Yard Assistant Name Role Phone Shilo Soares MD Primary Care Provider [phone] Encounter Details Date Type Department Care Team [...] Contact Info) Description 08/04/2024 1:00 PM DIRECTOR BANKING Appointment [facility] 2nd Ri [address] [place] [address] Aviva Humphries MD [address] [place] [address] Infusion Chair 5, 2nd Floor Hall 08/25/2024 1:00 PM DIRECTOR BANKING Office Visit [facility] Gynecologic Oncology Hall [address] [place] [address] Edilia Pettit, CHELY [address] [place] [address] 08/25/2024 1:30 PM DIRECTOR BANKING Appointment [facility] 2nd Fl [address] [place] [address] Aviva Humphries MD [address] [place] [address] Infusion Chair 1, 2nd Floor [place] 09/01/2024 10:45 AM DIRECTOR BANKING Appointment [facility] Nuclear Medicine [address] [place] [address] [id number] Edilia Pettit, CHELY [address] [facility] [address] [place] [address] documented as of this encounter Visit Diagnoses Not on filedocumented in this encounter Care Teams Yard Assistant Relationship Specialty Start Date End Date Shilo Soares MD [address] [place] [address] PCP - General Internal Medicine 04/24/23 documented as of this encounter
--- OUTSIDE RECORDS SUMMARY | 2024-07-26 23:52 | XMS_ITS | Encounter Summary ---
Author Organization [facility] Address [address] [place] [address] Care Team Providers Care Fire Crew Specialist Name Role Phone Shilo Soares MD Primary Care Provider [phone] Encounter Details Date Type Department Care Team (Late Contact Info) Description 12/29/2023 External Device Data STL ABSTRACTION Provider, Abstract [...] (Late Contact Info) Description 08/04/2024 1:00 PM CONTENT MANAGEMENT SPECIALIST Appointment [facility] 2nd [place] [address] [place] [address] Aviva Humphries MD [address] [place] [address] Infusion Chair 5, 2nd Floor Hall 08/25/2024 1:00 PM CONTENT MANAGEMENT SPECIALIST Office Visit [facility] Gynecologic Oncology Hall [address] [place] [address] Edilia Pettit, CHELY [address] [place] [address] 08/25/2024 1:30 PM CONTENT MANAGEMENT SPECIALIST Appointment [facility] 2nd Fl [address] [place] [address] Aviva Humphries MD [address] [place] [address] Infusion Chair 1, 2nd Floor [place] 09/01/2024 10:45 AM CONTENT MANAGEMENT SPECIALIST Appointment [facility] Nuclear Medicine [address] [place] [address] [id number] Edilia Pettit, CHELY [address] [facility] [facility] [address] [place] [address] documented as of this encounter Visit Diagnoses Not on filedocumented in this encounter Care Teams Fire Crew Specialist Relationship Specialty Start Date End Date Shilo Soares MD [address] [place] [address] PCP - General Internal Medicine 04/24/23 documented as of this encounter
--- OUTSIDE RECORDS SUMMARY | 2024-07-26 23:52 | XMS_ITS | Encounter Summary ---
Author Organization [facility] Address [address] [place] [address] Care Team Providers Care Air Shovel Operator Name Role Phone Shilo Soares MD Primary Care Provider [phone] Encounter Details Date Type Department Care Team [...] (Late Contact Info) Description 08/04/2024 1:00 PM ALUMINUM SIDING APPLICATOR Appointment [facility] [place] [address] [place] [address] Aviva Humphries MD [address] [place] [address] Infusion Chair 5, 2nd Floor Hall 08/25/2024 1:00 PM ALUMINUM SIDING APPLICATOR Office Visit [facility] Gynecologic Oncology Hall [address] [place] [address] Edilia Pettit, CHELY [address] [place] [address] 08/25/2024 1:30 PM ALUMINUM SIDING APPLICATOR Appointment [facility] 2nd Fl [address] [place] [address] Aviva Humphries MD [address] [place] [address] Infusion Chair 1, 2nd Floor [place] 09/01/2024 10:45 AM ALUMINUM SIDING APPLICATOR Appointment [facility] Nuclear Medicine [address] [place] [address] [id number] Edilia Pettit, CHELY [address] [facility] [facility] [address] [place] [address] documented as of this encounter Visit Diagnoses Not on filedocumented in this encounter Care Teams Air Shovel Operator Relationship Specialty Start Date End Date Shilo Soares MD [address] [place] [address] PCP - General Internal Medicine 04/24/23 documented as of this encounter
--- OUTSIDE RECORDS SUMMARY | 2024-07-26 23:52 | XMS_ITS | Encounter Summary ---
Author Organization [facility] Address [address] [place] [address] Care Team Providers Care Client Manager Large Law Name Role Phone Shilo Soares MD Primary Care Provider [phone] Encounter Details Date Type Department Care Team [...] (Late Contact Info) Description 08/04/2024 1:00 PM WORLD GEOGRAPHY TEACHER Appointment [facility] 2nd Mt [address] [place] [address] Aviva Humphries MD [address] [place] [address] Infusion Chair 5, 2nd Floor Hall 08/25/2024 1:00 PM WORLD GEOGRAPHY TEACHER Office Visit [facility] Gynecologic Oncology Hall [address] [place] [address] Edilia Pettit, CHELY [address] [place] [address] 08/25/2024 1:30 PM WORLD GEOGRAPHY TEACHER Appointment [facility] 2nd Fl [address] [place] [address] Aviva Humphries MD [address] [place] [address] Infusion Chair 1, 2nd Floor [place] 09/01/2024 10:45 AM WORLD GEOGRAPHY TEACHER Appointment [facility] Nuclear Medicine [address] [place] [address] [id number] Edilia Pettit, CHELY [address] [facility] [address] [place] [address] documented as of this encounter Visit Diagnoses Not on filedocumented in this encounter Care Teams Client Manager Large Law Relationship Specialty Start Date End Date Shilo Soares MD [address] [place] [address] PCP - General Internal Medicine 04/24/23 documented as of this encounter
--- OUTSIDE RECORDS SUMMARY | 2024-07-26 23:52 | XMS_ITS | Encounter Summary ---
Author Organization [facility] Address [address] [place] [address] Care Team Providers Care Mobile Nurse Name Role Phone Shilo Soares MD Primary Care Provider [phone] Encounter Details Date Type Department Care Team [...] (Late Contact Info) Description 08/04/2024 1:00 PM KITMAN Appointment [facility] 2nd Pa [address] [place] [address] Aviva Humphries MD [address] [place] [address] Infusion Chair 5, 2nd Floor Hall 08/25/2024 1:00 PM KITMAN Office Visit [facility] Gynecologic Oncology Hall [address] [place] [address] Edilia Pettit, CHELY [address] [place] [address] 08/25/2024 1:30 PM KITMAN Appointment [facility] 2nd Fl [address] [place] [address] Aviva Humphries MD [address] [place] [address] Infusion Chair 1, 2nd Floor [place] 09/01/2024 10:45 AM KITMAN Appointment [facility] Nuclear Medicine [address] [place] [address] [id number] Edilia Pettit, CHELY [address] [facility] [address] [place] [address] documented as of this encounter Visit Diagnoses Not on filedocumented in this encounter Care Teams Mobile Nurse Relationship Specialty Start Date End Date Shilo Soares MD [address] [place] [address] PCP - General Internal Medicine 04/24/23 documented as of this encounter
--- OUTSIDE RECORDS SUMMARY | 2024-07-26 23:52 | XMS_ITS | Encounter Summary ---
Author Organization [facility] Address [address] [place] [address] Care Team Providers Care Lead Java Software Engineer Name Role Phone Shilo Soares MD Primary Care Provider [phone] Encounter Details Date Type Department Care Team (Late Contact Info) Description 01/06/2024 External Device Data STL ABSTRACTION Provider, Abstract [...] (Late Contact Info) Description 08/04/2024 1:00 PM NAPHTHALENE STILL OPERATOR Appointment [facility] 2nd [place] [address] [place] [address] Aviva Humphries MD [address] [place] [address] Infusion Chair 5, 2nd Floor [place] 08/25/2024 1:00 PM NAPHTHALENE STILL OPERATOR Office Visit [facility] Gynecologic Oncology Hall [address] [place] [address] Edilia Pettit, CHELY [address] [place] [address] 08/25/2024 1:30 PM NAPHTHALENE STILL OPERATOR Appointment [facility] 2nd Fl [address] [place] [address] Aviva Humphries MD [address] [place] [address] Infusion Chair 1, 2nd Floor [place] 09/01/2024 10:45 AM NAPHTHALENE STILL OPERATOR Appointment [facility] Nuclear Medicine [address] [place] [address] [id number] Edilia Pettit, CHELY [address] [facility] [address] [place] [address] documented as of this encounter Visit Diagnoses Not on filedocumented in this encounter Care Teams Lead Java Software Engineer Relationship Specialty Start Date End Date Shilo Soares MD [address] [place] [address] PCP - General Internal Medicine 04/24/23 documented as of this encounter
--- OUTSIDE RECORDS SUMMARY | 2024-07-26 23:52 | XMS_ITS | Encounter Summary ---
Author Organization [facility] Address [address] [place] [address] Care Team Providers Care Assistant Director Name Role Phone Shilo Soares MD Primary Care Provider [phone] Encounter Details Date Type Department Care Team [...] (Late Contact Info) Description 08/04/2024 1:00 PM ALLEY TENDER Appointment [facility] 2nd Md [address] [place] [address] Aviva Humphries MD [address] [place] [address] Infusion Chair 5, 2nd Floor [place] 08/25/2024 1:00 PM ALLEY TENDER Office Visit [facility] Gynecologic Oncology Hall [address] [place] [address] Edilia Pettit, CHELY [address] [place] [address] 08/25/2024 1:30 PM ALLEY TENDER Appointment [facility] 2nd Fl [address] [place] [address] Aviva Humphries MD [address] [place] [address] Infusion Chair 1, 2nd Floor [place] 09/01/2024 10:45 AM ALLEY TENDER Appointment [facility] Nuclear Medicine [address] [place] [address] [id number] Edilia Pettit, CHELY [address] [facility] [address] [place] [address] documented as of this encounter Visit Diagnoses Not on filedocumented in this encounter Care Teams Assistant Director Relationship Specialty Start Date End Date Shilo Soares MD [address] [place] [address] PCP - General Internal Medicine 04/24/23 documented as of this encounter
--- OUTSIDE RECORDS SUMMARY | 2024-07-26 23:52 | XMS_ITS | Encounter Summary ---
Author Organization [facility] Address [address] [place] [address] Care Team Providers Care Media Consultant Outside Sales Name Role Phone Shilo Soares MD Primary Care Provider [phone] Encounter Details Date Type Department Care Team (Latest Contact Info) Description 01/07/2024 11:15 AM CDT - 01/07/2024 11:59 PM CDT Hospital Encounter Randy Hall Cancer [facility] [address] [place] [address] Aviva Humphries MD [address] [place] [address] Discharge Disposition: Home or Self [...] bedtime. 02/26/2021 fluticasone propionate (FLONASE) 50 mcg/spray [place], Suspension nasal inhaler Administer 2 Sprays in each nostril daily. omega-3 fatty acids-fish oil 300-1,000 mg Capsule Take 2 Capsules by mouth daily. olaparib 150 mg tablet Take 2 Tablets (300 mg) by mouth 2 times daily. 120 Tablet 3 11/19/2023 02/15/2024 documented as of this encounter Miscellaneous Notes * Result Encounter Note - Aviva Humphries MD - 01/07/2024 11:15 AM CDT Lets keep close eye on platelets for next draw. documented in this encounter Plan of Treatment Upcoming Encounters Date Type Department Care Team (Late st Contact Info) Description 08/04/2024 1:00 PM MAINTENANCE TECHNICIAN 2ND SHIFT Appointment Randy Proctor [facility] Infusion Center 2nd Fl [address] [place] [address] Aviva Humphries MD [address] [facility] [address] [place] [address] Infusion Chair 5, 2nd Floor Hall 08/25/2024 1:00 PM MAINTENANCE TECHNICIAN 2ND SHIFT Office Visit [facility] Gynecologic Oncology [place] [address] [address] Edilia Pettit, CHELY [address] [address] 08/25/2024 1:30 PM MAINTENANCE TECHNICIAN 2ND SHIFT Appointment Randy Proctor [facility] Infusion Center 2nd Fl [address] [place] [address] Aviva Humphries MD [address] [facility] [address] [facility] [place] [address] Infusion Chair 1, [address] [place], [place] [address] 09/01/2024 10:45 AM MAINTENANCE TECHNICIAN 2ND SHIFT Appointment [facility] Nuclear Medicine [address] [place] [address] [phone] Edilia Pettit, CHELY [address] [phone] documented as of this encounter Procedures Procedure Name Priority Date/Time Associated Diagnosis Comments DIFFERENTIAL, MANUAL Stat 01/07/2024 11:35 AM CDT Malignant neoplasm of ovary, unspecified laterality CBC WITH DIFFERENTIAL Stat 01/07/2024 11:35 AM CDT Malignant neoplasm of ovary, unspecified laterality URINALYSIS W/REFLEX MICROSCOPIC Stat 01/07/2024 11:35 AM CDT Malignant neoplasm of ovary, unspecified laterality CANCER ANTIGEN 125 Routine 01/07/2024 11 :35 AM CDT Malignant neoplasm of ovary, unspecified laterality COMPREHENSIVE METABOLIC PANEL Stat 01/07/2024 11:35 AM CDT Malignant neoplasm of ovary, unspecified laterality CANCER ANTIGEN 125 Routine 01/07/2024 12 :00 AM CDT documented in this encounter Results * MANUAL DIFFERENTIAL (01/07/2024 11:35 AM CDT) PLATELET EST. Consistent w Count 01/07/2024 12:18 PM CDT [facility] LABORATORY [facility] ANISOCYTOSIS 1+ /hpf 01/07/2024 12:18 PM CDT [facility] POIKILOCYTES 1+ /hpf 01/07/2024 12:18 PM CDT [facility] MACROCYTES 1+ /hpf 01/07/2024 12:18 PM CDT [facility] Blood Collection / Unknown 01/07/2024 11:35 AM CDT 01/07/2024 11:52 AM CDT Aviva Humphries MD HEMATOLOGY ORDERABLE S COM [facility] [email or web address] [facility]# [id number] [address] [place] [address] * (ABNORMAL) URINALYSIS WITH REFLEX MICROSCOPIC (01/07/2024 11:35 AM CDT) COLOR UA Pale Yellow Pale to Dark Yellow 01/07/2024 12:16 PM CDT [facility] CLARITY UA Clear Clear 01/07/2024 12:16 PM CDT [facility] LAB[facility]ORY [facility] SPECIFIC GRAVITY UA 1.004 1.003 - 1.035 01/07/2024 12:16 PM CDT [facility] PH UA 5.0 5.0 - 8.0 01/07/2024 12:16 PM CDT [facility] - [facility] LEUKOCYTE ESTERASE UA Negative Negative 01/07/2024 12:16 PM CDT [facility] - . [facility] NITRITE UA Negative Negative 01/07/2024 12:16 PM CDT [facility] - . [facility] PROTEIN UA Negative Negative 01/07/2024 12:16 PM CDT [facility] - [facility] GLUCOSE UA Negative Negative 01/07/2024 12:16 PM CDT [facility] - [facility] KETONES UA Negative Negative 01/07/2024 12:16 PM CDT [facility] - [facility] UROBILINOGEN UA Normal <2.0 mg/dL 12:16 PM CDT [facility] - [facility] BILIRUBIN UA Negative Negative 01/07/2024 12:16 PM CDT [facility] - [facility] BLOOD UA 1+(A) Negative 01/07/2024 12:16 PM CDT [facility] - [facility] WBC UA 0-2 0 - 2 /hpf 01/07/2024 12:16 PM CDT [facility] SERVICES - . [facility] RBC UA 0-2 0 - 2 /hpf 01/07/2024 12:16 PM CDT [email or web address] LABORATORY SERVICES - [facility] BACTERIA UA Negative Negative /hpf 01/07/2024 12:16 PM CDT [facility] - [facility] EPITHELIAL CELLS, URINE 0-5 0 - 5 /hpf 01/07/2024 12:16 PM CDT [facility] SERVICES - [facility] Urine URINE SPECIMEN OBTAINED BY CLEAN CATCH PROCEDURE / Unknown Collection / Unknown 01/07/2024 11:35 AM CDT 01/07/2024 11:54 AM CDT Aviva Humphries MD URINE ORDERABLES [facility] LABORATORY SERVICES - [facility]# [id number] [address] [facility] [place] [address] * CANCER ANTIGEN 125 (01/07/2024 11:35 AM CDT) CA 125 7.1 <35.0 U/mL 01/07/2024 12:51 PM CDT [facility] Blood Collection / Unknown 01/07/2024 11:35 AM CDT 01/07/2024 11:55 AM CDT [facility] LABORATORY [facility] - 01/07/2024 12:51 PM CDT The concentration [...] during . Aviva Humphries MD CHEMISTRY ORDERABLES [facility] [email or web address] [facility]# [id number] 5 [place] [address] * (ABNORMAL) COMPREHENSIVE METABOLIC PANEL (01/07/2024 11:35 AM CDT) SODIUM 139 136 - 145 mmol/L 01/07/2024 12:40 PM T [facility] LABORATORY [facility] POTASSIUM 4.0 3.5 - 5.0 mmol/L 01/07/2024 12:40 PM T [facility] LABORATORY [facility] CHLORIDE 103 98 - 107 mmol/L 01/07/2024 12:40 PM T [facility] LABORATORY [facility] CO2 25 22 - 29 mmol/L 01/07/2024 12:40 PM T [facility] LABORATORY [facility] CALCIUM 9.7 8.6 - 10.2 mg/dL 01/07/2024 12:40 PM CDT [facility] LABORATORY [facility] BUN 11 8 - 23 mg/dL 01/07/2024 12:40 PM CDT [facility] LABORATORY [facility]. [facility] CREATININE 0.86 0.51 - 0.95 mg/dL 01/07/2024 12:40 PM T [facility] LABORATORY [facility] GLUCOSE 121(H) 74 - 99 mg/dL 01/07/2024 12:40 PM T [facility] TOTAL PROTEIN 7.5 6.7 - 8.6 g/dL 01/07/2024 12:40 PM T [facility] ALBUMIN 4.3 3.5 - 5.2 g/dL 01/07/2024 12:40 PM T [facility] BILIRUBIN TOTAL 0.5 0.2 - 1.1 mg/dL 01/07/2024 12:40 PM T [facility] ALKALINE PHOSPHATASE 90 35 - 104 U/L 01/07/2024 12:40 PM [facility] AST 21 <33 U/L 01/07/2024 12:40 PM [facility] ALT 24 <34 U/L 01/07/2024 12:40 PM [facility] GFR >60 >=60 mL/min/1.7 3 sq meter 01/07/2024 12:40 PM [facility] Comment:eGFR calculated with 2020 CKD-EPI equation. Vegetarian diet, extremely high or low muscle mass, and may affect results. Cystatin C with Glomerular Filtration Rate is a suitable alternative for these patients. ANION GAP 11 8 - 16 mmol/L 01/07/2024 12:40 PM [facility] Blood Collection / Unknown 01/07/2024 11:35 AM CDT 01/07/2024 11:55 AM CDT Narrative [facility] - 01/07/2024 12:40 PM CDT Samples containing indocyanine green cause interferences on Total and/or Direct Bilirubin and must not be measured. Aviva Humphries MD CHEMISTRY ORDERABLES [facility] CLIA# [id number] [address] [facility] [place] [address] * (ABNORMAL) CBC WITH DIFFERENTIAL (01/07/2024 11:35 AM CDT) WBC 5.6 4.0 - 9.8 K/uL 01/07/2024 11:55 AM CDT [email or web address] LABORATORY SERVICES - [facility] RBC 3.04(L) 3.90 - 4.90 M/uL 01/07/2024 11:55 AM CDT [email or web address] LABORATORY SERVICES - [facility] HEMOGLOBIN 10.8(L) 11.8 - 14.8 g/dL 01/07/2024 11:55 AM CDT [email or web address] LABORATORY SERVICES - [facility] HEMATOCRIT 31.3(L) 35.5 - 44.0 % 01/07/2024 11:55 AM CDT [email or web address] LABORATORY SERVICES - [facility] MCV 103.0(H) 82.0 - 99.0 fL 01/07/2024 11:55 AM CDT [facility] SERVICES - [facility] MCH 35.5(H) 27.2 - 32.6 pg 01/07/2024 11:55 AM CDT [email or web address] LABORATORY SERVICES - [facility] MCHC 34.5 31.5 - 35.5 g/dL 01/07/2024 11:55 AM CDT [email or web address] LABORATORY SERVICES - [facility] RDW 18.6(H) 11.5 - 14.5 % 01/07/2024 11:55 AM CDT [email or web address] LABORATORY SERVICES - [facility] RDW-STDEV 69.3(H) 37.1 - 48.7 fL 01/07/2024 11:55 AM CDT [email or web address] LABORATORY SERVICES - [facility] PLATELETS 137(L) 140 - 350 K/uL 01/07/2024 11:55 AM CDT [email or web address] LABORATORY SERVICES - [facility] MPV 9.0(L) 9.3 - 12.4 fL 01/07/2024 11:55 AM CDT [email or web address] LAB[facility]ATORY SERVICES - . [facility] NEUTROPHILS 60 % 01/07/2024 11:55 AM CDT [email or web address]ORY SERVICES - . [facility] LYMPHOCYTES 34 % 01/07/2024 11:55 AM CDT [email or web address] LAB[facility]ATORY SERVICES - . [facility] MONOCYTES 4 % 01/07/2024 11:55 AM CDT [facility] - . [facility] EOSINOPHILS 1 % 01/07/2024 11:55 AM CDT [email or web address] LAB[facility]ATORY SERVICES - . [facility] BASOPHILS 1 % 01/07/2024 11:55 AM CDT [facility] LABORATORY SERVICES - [facility] IMMATURE GRANULOCYTES 0 % 01/07/2024 11:55 AM CDT [facility] LABORATORY [facility] - . [facility] NEUTROPHIL ABSOLUTE 3.37 1.90 - 7.00 K/uL 01/07/2024 11:55 AM CDT [facility] LABORATORY [facility] - . [facility] LYMPHOCYTE ABSOLUTE 1.88 0.70 - 4.50 K/uL 01/07/2024 11:55 AM CDT [facility] LABORATORY [facility] MONOCYTE ABSOLUTE 0.23 0.10 - 1.30 K/uL 01/07/2024 11:55 AM CDT [facility] LABORATORY SERVICES - [facility] EOSINOPHIL ABSOLUTE 0.06 0.00 - 0.70 K/uL 01/07/2024 11:55 AM CDT [facility] LABORATORY SERVICES - [facility] BASOPHILS ABSOLUTE 0.04 0.00 - 0.20 K/uL 01/07/2024 11:55 AM CDT [facility] LABORATORY [facility] - . [facility] IMMATURE GRANULOCYTES ABSOLUTE 0.02 0.00 - 0.03 K/uL 01/07/2024 11:55 AM CDT [facility] LABORATORY [facility] - [facility] Blood Collection / Unknown 01/07/2024 11:35 AM CDT 01/07/2024 11:52 AM CDT Aviva Humphries MD HEMATOLOGY ORDERABLE S [facility]# [id number] [address] [place] [address] * CANCER ANTIGEN 125 (01/07/2024 12:00 AM CDT) CA 125 7 <35 U/mL [facility] Comment: This test was performed using the Siemens Chemiluminescent method. Values obtained from different assay methods cannot be used interchangeably. CA 125 levels, regardless of value, should not be interpreted as absolute evidence of the presence or absence of disease. Test Performed at: [facility] [address] [place], [place] ??[address] Radha Perez MD 01/07/2024 01/07/2024 12: 23 PM CDT Aviva Humphries MD CHEMISTRY ORDERABLES [facility] [phone] [facility] [place] [address] [place] [address] documented in this encounter Visit Diagnoses Diagnosis Malignant neoplasm of ovary, unspecified laterality documented in this encounter Care Teams Media Consultant Outside Sales Relationship Specialty Start Date End Date Shilo Soares MD [address] [place] [address] PCP - General Internal Medicine 04/24/23 documented as of this encounter
--- OUTSIDE RECORDS SUMMARY | 2024-07-26 23:52 | XMS_ITS | Encounter Summary ---
Author Organization [facility] Address [address] [place] [address] Care Team Providers Care Marble Cutter Name Role Phone Shilo Soares MD Primary Care Provider [phone] Encounter Details Date Type Department Care Team [...] Contact Info) Description 08/04/2024 1:00 PM MEDICAL PRACTICE MANAGER Appointment [facility] Center 2nd [place] [address] [place] [address] Aviva Humphries MD [address] [place] [address] Infusion Chair 5, 2nd Floor Hall 08/25/2024 1:00 PM MEDICAL PRACTICE MANAGER Office Visit [facility] Gynecologic Oncology Hall [address] [place] [address] Edilia Pettit, CHELY [address] [place] [phone] 08/25/2024 1:30 PM MEDICAL PRACTICE MANAGER Appointment [facility] Center 2nd Fl [address] [place] [address] Aviva Humphries MD [address] [place] [address] Infusion Chair 1, 2nd Floor [place] 09/01/2024 10:45 AM MEDICAL PRACTICE MANAGER Appointment Randy Hall [facility] Nuclear Medicine [address] [place] [address] [phone] Edilia Pettit, CHELY [address] [facility] [address] [place] [address] documented as of this encounter Visit Diagnoses Not on filedocumented in this encounter Care Teams Marble Cutter Relationship Specialty Start Date End Date Shilo Soares MD [address] [place] [address] PCP - General Internal Medicine 04/24/23 documented as of this encounter
--- OUTSIDE RECORDS SUMMARY | 2024-07-26 23:52 | XMS_ITS | Encounter Summary ---
Author Organization [facility] Address [address] [place] [address] Care Team Providers Care General Foundry Worker Name Role Phone Shilo Soares MD Primary Care Provider [phone] Encounter Details Date Type Department Care Team [...] (Late Contact Info) Description 08/04/2024 1:00 PM PIECE HAND Appointment [facility] 2nd [place] [address] [place] [address] Aviva Humphries MD [address] [place] [address] Infusion Chair 5, 2nd Floor Hall 08/25/2024 1:00 PM PIECE HAND Office Visit [facility] Gynecologic Oncology Hall [address] [place] [address] Edilia Pettit, CHELY [address] [place] [address] 08/25/2024 1:30 PM PIECE HAND Appointment [facility] 2nd Fl [address] [place] [address] Aviva Humphries MD [address] [place] [address] Infusion Chair 1, 2nd Floor [place] 09/01/2024 10:45 AM PIECE HAND Appointment Randy Hall [facility] Nuclear Medicine [address] [place] [address] [id number] Edilia Pettit, CHELY [address] [facility] [facility] [address] [place] [address] documented as of this encounter Visit Diagnoses Not on filedocumented in this encounter Care Teams General Foundry Worker Relationship Specialty Start Date End Date Shilo Soares MD [address] [place] [address] PCP - General Internal Medicine 04/24/23 documented as of this encounter
--- OUTSIDE RECORDS SUMMARY | 2024-07-26 23:52 | XMS_ITS | Encounter Summary ---
Author Organization [facility] Address [address] [place] [address] Care Team Providers Care Exercise Instruct Name Role Phone Shilo Soares MD Primary Care Provider [phone] Encounter Details Date Type Department Care Team (Late Contact Info) Description 12/31/2023 External Device Data STL ABSTRACTION Provider, Abstract [...] Contact Info) Description 08/04/2024 1:00 PM RADIO DESPATCHER Appointment [facility] 2nd [place] [address] [place] [address] Aviva Humphries MD [address] [place] [address] Infusion Chair 5, 2nd Floor [place] 08/25/2024 1:00 PM RADIO DESPATCHER Office Visit [facility] Gynecologic Oncology Hall [address] [place] [address] Edilia Pettit, CHELY [address] [place] [phone] 08/25/2024 1:30 PM RADIO DESPATCHER Appointment [facility] 2nd Fl [address] [place] [address] Aviva Humphries MD [address] [place] [address] Infusion Chair 1, 2nd Floor [place] 09/01/2024 10:45 AM RADIO DESPATCHER Appointment Randy Hall Cancer [facility] Nuclear Medicine [address] [place] [address] [id number] Edilia Pettit, CHELY [address] [facility] [address] [place] [address] documented as of this encounter Visit Diagnoses Not on filedocumented in this encounter Care Teams Exercise Instruct Relationship Specialty Start Date End Date Shilo Soares MD [address] [place] [address] PCP - General Internal Medicine 04/24/23 documented as of this encounter
--- OUTSIDE RECORDS SUMMARY | 2024-07-26 23:52 | XMS_ITS | Encounter Summary ---
Author Organization [facility] Address [address] [place] [address] Care Team Providers Care Shuttle Truck Driver Name Role Phone Shilo Soares MD Primary Care Provider [phone] Encounter Details Date Type Department Care Team [...] (Late Contact Info) Description 08/04/2024 1:00 PM BULL CHAIN OPERATOR Appointment [facility] 2nd [place] [address] [place] [address] Aviva Humphries MD [address] [place] [address] Infusion Chair 5, 2nd Floor [place] 08/25/2024 1:00 PM BULL CHAIN OPERATOR Office Visit [facility] Gynecologic Oncology Hall [address] [place] [address] Edilia Pettit, CHELY [address] [place] [address] 08/25/2024 1:30 PM BULL CHAIN OPERATOR Appointment [facility] 2nd Fl [address] [place] [address] Aviva Humphries MD [address] [place] [address] Infusion Chair 1, 2nd Floor [place] 09/01/2024 10:45 AM BULL CHAIN OPERATOR Appointment Randy Hall [facility] Nuclear Medicine [address] [place] [address] [id number] Edilia Pettit, CHELY [address] [facility] [address] [place] [address] documented as of this encounter Visit Diagnoses Not on filedocumented in this encounter Care Teams Shuttle Truck Driver Relationship Specialty Start Date End Date Shilo Soares MD [address] [place] [address] PCP - General Internal Medicine 04/24/23 documented as of this encounter
--- OUTSIDE RECORDS SUMMARY | 2024-07-26 23:52 | XMS_ITS | Encounter Summary ---
Author Organization [facility] Address [address] [place] [address] Care Team Providers Care Vending Machine Technician Name Role Phone Shilo Soares MD Primary Care Provider [phone] Encounter Details Date Type Department Care Team ([facility] Contact Info) Description 01/07/2024 Orders Only [facility] Gynecologic Oncology Hall [address] [employer] [facility] [address] [place] [address] Edilia Pettit, CHELY [address] [id number] [address] [place] [address] Social History Tobacco Use Types [...] (Late Contact Info) Description 08/04/2024 1:00 PM WRINGER AND SETTER Appointment [facility] Center 2nd Fl [address] [employer] [place] [address] Aviva Humphries MD [address] [place] [address] Infusion Chair 5, 2nd Floor [place] 08/25/2024 1:00 PM WRINGER AND SETTER Office Visit [facility] Gynecologic Oncology Hall [address] [facility] [place] [address] Edilia Pettit, CHELY [address] [facility] [place] [address] 08/25/2024 1:30 PM WRINGER AND SETTER Appointment [facility] [address] [place] [address] Aviva Humphries MD [address] [place] [address] Infusion Chair 1, 2nd Floor [place] 09/01/2024 10:45 AM WRINGER AND SETTER Appointment Randy [facility] Nuclear Medicine [address] [place] [address] [phone] Edilia Pettit NP [address] [facility] [address] [place] [address] documented as of this encounter Visit Diagnoses Not on filedocumented in this encounter Care Teams Vending Machine Technician Relationship Specialty Start Date End Date Shilo Soares MD [address] [place] [address] PCP - General Internal Medicine 04/24/23 documented as of this encounter
--- OUTSIDE RECORDS SUMMARY | 2024-07-26 23:52 | XMS_ITS | Encounter Summary ---
Author Organization [facility] Address [address] [place] [address] Care Team Providers Care Religion Professor Name Role Phone Shilo Soares MD Primary Care Provider [phone] Encounter Details Date Type Department Care Team [...] (Late Contact Info) Description 08/04/2024 1:00 PM PRESCHOOL AIDE Appointment [facility] [address] [place] [address] Aviva Humphries MD [address] [place] [address] Infusion Chair 5, 2nd Floor [place] 08/25/2024 1:00 PM PRESCHOOL AIDE Office Visit [facility] Gynecologic Oncology Hall [address] [place] [address] Edilia Pettit, CHELY [address] [facility] [facility] [place] [address] 08/25/2024 1:30 PM PRESCHOOL AIDE Appointment [facility] 2nd Fl [address] [place] [address] Aviva Humphries MD [address] [place] [address] Infusion Chair 1, 2nd Floor [place] 09/01/2024 10:45 AM PRESCHOOL AIDE Appointment [facility] Nuclear Medicine [address] [place] [address] [phone] Edilia Pettit, CHELY [address] [facility] [address] [place] [address] documented as of this encounter Visit Diagnoses Not on filedocumented in this encounter Care Teams Religion Professor Relationship Specialty Start Date End Date Shilo Soares MD [address] [place] [address] PCP - General Internal Medicine 04/24/23 documented as of this encounter
--- OUTSIDE RECORDS SUMMARY | 2024-07-26 23:52 | XMS_ITS | Encounter Summary ---
Author Organization Address [address] [place] [address] Care Team Providers Care Car Washer Name Role Phone Shilo Soares MD Primary Care Provider [phone] Encounter Details Date Type Department Care Team [...] (Late Contact Info) Description 08/04/2024 1:00 PM ROOF CEMENT AND PAINT MAKER HELPER Appointment [facility] 2nd Md [address] [place] [address] Aviva Humphries MD [address] [place] [address] Infusion Chair 5, 2nd Floor [place] 08/25/2024 1:00 PM ROOF CEMENT AND PAINT MAKER HELPER Office Visit [facility] Gynecologic Oncology Hall [address] [place] [address] Edilia Pettit, CHELY [address] [facility] [address] [place] [address] 08/25/2024 1:30 PM ROOF CEMENT AND PAINT MAKER HELPER Appointment [facility] 2nd Fl [address] [place] [address] Aviva Humphries MD [address] [place] [address] Infusion Chair 1, 2nd Floor [place] 09/01/2024 10:45 AM ROOF CEMENT AND PAINT MAKER HELPER Appointment [facility] Nuclear Medicine [address] [place] [address] [id number] Edilia Pettit, CHELY [address] [facility] [address] [place] [address] documented as of this encounter Visit Diagnoses Not on filedocumented in this encounter Care Teams Car Washer Relationship Specialty Start Date End Date Shilo Soares MD [address] [place] [address] PCP - General Internal Medicine 04/24/23 documented as of this encounter
--- OUTSIDE RECORDS SUMMARY | 2024-07-26 23:52 | XMS_ITS | Encounter Summary ---
Author Organization [facility] Address [address] [place] [address] Care Team Providers Care Building Services Coordinator Name Role Phone Shilo Soares MD Primary Care Provider [phone] Encounter Details Date Type Department Care Team (Late Contact Info) Description 01/04/2024 External Device Data STL ABSTRACTION Provider, Abstract [...] (Late Contact Info) Description 08/04/2024 1:00 PM CONDITIONING YARD SUPERVISOR Appointment [facility] 2nd Id [address] [place] [address] Aviva Humphries MD [address] [place] [address] Infusion Chair 5, 2nd Floor Hall 08/25/2024 1:00 PM CONDITIONING YARD SUPERVISOR Office Visit [facility] Gynecologic Oncology Hall [address] [place] [address] Edilia Pettit, CHELY [address] [facility] [facility] [address] [place] [address] 08/25/2024 1:30 PM CONDITIONING YARD SUPERVISOR Appointment [facility] 2nd Fl [address] [place] [address] Aviva Humphries MD [address] [place] [address] Infusion Chair 1, 2nd Floor [place] 09/01/2024 10:45 AM CONDITIONING YARD SUPERVISOR Appointment [facility] Nuclear Medicine [address] [place] [address] [id number] Edilia Pettit, CHELY [address] [facility] [address] [place] [address] documented as of this encounter Visit Diagnoses Not on filedocumented in this encounter Care Teams Building Services Coordinator Relationship Specialty Start Date End Date Shilo Soares MD [address] [place] [address] PCP - General Internal Medicine 04/24/23 documented as of this encounter
--- OUTSIDE RECORDS SUMMARY | 2024-07-26 23:52 | XMS_ITS | Encounter Summary ---
Author Organization [facility] Address [address] [place] [address] Care Team Providers Care Stock Crane Operator Name Role Phone Shilo Soares MD Primary Care Provider [phone] Encounter Details Date Type Department Care Team [...] Contact Info) Description 08/04/2024 1:00 PM SUPERVISOR SMALL APPLIANCE ASSEMBLY Appointment [facility] 2nd De [address] [place] [address] Aviva Humphries MD [address] [place] [address] Infusion Chair 5, 2nd Floor [place] 08/25/2024 1:00 PM SUPERVISOR SMALL APPLIANCE ASSEMBLY Office Visit [facility] Gynecologic Oncology Hall [address] [place] [address] Edilia Pettit, CHELY [address] [facility] [address] [place] [address] 08/25/2024 1:30 PM SUPERVISOR SMALL APPLIANCE ASSEMBLY Appointment [facility] 2nd Fl [address] [place] [address] Aviva Humphries MD [address] [facility] [address] [facility] [address] [place] [address] Infusion Chair 1, 2nd Floor [place] 09/01/2024 10:45 AM SUPERVISOR SMALL APPLIANCE ASSEMBLY Appointment [facility] Nuclear Medicine [address] [place] [address] [id number] Edilia Pettit, CHELY [address] [facility] [address] [place] [address] documented as of this encounter Visit Diagnoses Not on filedocumented in this encounter Care Teams Stock Crane Operator Relationship Specialty Start Date End Date Shilo Soares MD [address] [place] [address] PCP - General Internal Medicine 04/24/23 documented as of this encounter
--- OUTSIDE RECORDS SUMMARY | 2024-07-26 23:52 | XMS_ITS | Encounter Summary ---
Author Organization [facility] Address [address] [place] [address] Care Team Providers Care Supervisor Carton And Can Supply Name Role Phone Shilo Soares MD Primary Care Provider [phone] Encounter Details Date Type Department Care Team [...] (Late Contact Info) Description 08/04/2024 1:00 PM READING INTERVENTIONIST Appointment [facility] 2nd Ga [address] [place] [address] Aviva Humphries MD [address] [place] [address] Infusion Chair 5, 2nd Floor [place] 08/25/2024 1:00 PM READING INTERVENTIONIST Office Visit [facility] Gynecologic Oncology Hall [address] [place] [address] Edilia Pettit, CHELY [address] [address] [place] [address] 08/25/2024 1:30 PM READING INTERVENTIONIST Appointment [facility] 2nd Fl [address] [place] [address] Aviva Humphries MD [address] [place] [address] Infusion Chair 1, 2nd Floor [place] 09/01/2024 10:45 AM READING INTERVENTIONIST Appointment [facility] Nuclear Medicine [address] [place] [address] [id number] Edilia Pettit, CHELY [address] [facility] [address] [place] [address] documented as of this encounter Visit Diagnoses Not on filedocumented in this encounter Care Teams Supervisor Carton [employer] Can Supply Relationship Specialty Start Date End Date Shilo Soares MD [address] [place] [address] PCP - General Internal Medicine 04/24/23 documented as of this encounter
--- OUTSIDE RECORDS SUMMARY | 2024-07-26 23:52 | XMS_ITS | Encounter Summary ---
Author Organization [facility] Address [address] [place] [address] Care Team Providers Care Hot Plate Plywood Press Operator Name Role Phone Shilo Soares MD Primary Care Provider [phone] Encounter Details Date Type Department Care Team [...] Contact Info) Description 08/04/2024 1:00 PM ELECTRONIC ENGINEERING DRAFTSPERSON Appointment [facility] 2nd Wy [address] [place] [address] Aviva Humphries MD [address] [place] [address] Infusion Chair 5, 2nd Floor [place] 08/25/2024 1:00 PM ELECTRONIC ENGINEERING DRAFTSPERSON Office Visit [facility] Gynecologic Oncology Hall [address] [place] [address] Edilia Pettit, CHELY [address] [place] [address] 08/25/2024 1:30 PM ELECTRONIC ENGINEERING DRAFTSPERSON Appointment [facility] 2nd Fl [address] [place] [address] Aviva Humphries MD [address] [place] [address] Infusion Chair 1, 2nd Floor [place] 09/01/2024 10:45 AM ELECTRONIC ENGINEERING DRAFTSPERSON Appointment [facility] Nuclear Medicine [address] [place] [address] [id number] Edilia Pettit, CHELY [address] [facility] [address] [place] [address] documented as of this encounter Visit Diagnoses Not on filedocumented in this encounter Care Teams Hot Plate Plywood Press Operator Relationship Specialty Start Date End Date Shilo Soares MD [address] [place] [address] PCP - General Internal Medicine 04/24/23 documented as of this encounter
--- OUTSIDE RECORDS SUMMARY | 2024-07-26 23:52 | XMS_ITS | Encounter Summary ---
Author Organization [facility] Address [address] [place] [address] Care Team Providers Care Tree Pruner Name Role Phone Shilo Soares MD Primary Care Provider [phone] Encounter Details Date Type Department Care Team [...] Contact Info) Description 08/04/2024 1:00 PM FIELD EVIDENCE TECHNICIAN Appointment [facility] 2nd Id [address] [place] [address] Aviva Humphries MD [address] [place] [address] Infusion Chair 5, 2nd Floor [place] 08/25/2024 1:00 PM FIELD EVIDENCE TECHNICIAN Office Visit [facility] Gynecologic Oncology Hall [address] [place] [address] Edilia Pettit, CHELY [address] [place] [address] 08/25/2024 1:30 PM FIELD EVIDENCE TECHNICIAN Appointment [facility] 2nd Fl [address] [place] [address] Aviva Humphries MD [address] [place] [address] Infusion Chair 1, 2nd Floor [place] 09/01/2024 10:45 AM FIELD EVIDENCE TECHNICIAN Appointment [facility] Nuclear Medicine [address] [place] [address] [id number] Edilia Pettit, CHELY [address] [facility] [address] [place] [address] documented as of this encounter Visit Diagnoses Not on filedocumented in this encounter Care Teams Tree Pruner Relationship Specialty Start Date End Date Shilo Soares MD [address] [place] [address] PCP - General Internal Medicine 04/24/23 documented as of this encounter
--- OUTSIDE RECORDS SUMMARY | 2024-07-26 23:52 | XMS_ITS | Encounter Summary ---
Author Organization [facility] Address [address] [place] [address] Care Team Providers Care Low Pressure Boiler Operator Name Role Phone Shilo Soares MD Primary Care Provider [phone] Encounter Details Date Type Department Care Team [...] Contact Info) Description 08/04/2024 1:00 PM SUPERINTENDENT LOCAL Appointment [facility] 2nd [place] [address] [place] [address] Aviva Humphries MD [address] [place] [address] Infusion Chair 5, 2nd Floor [place] 08/25/2024 1:00 PM SUPERINTENDENT LOCAL Office Visit [facility] Gynecologic Oncology Hall [address] [place] [address] Edilia Pettit, CHELY [address] [address] [place] [address] 08/25/2024 1:30 PM SUPERINTENDENT LOCAL Appointment [facility] 2nd Fl [address] [place] [address] Aviva Humphries MD [address] [place] [address] Infusion Chair 1, 2nd Floor [place] 09/01/2024 10:45 AM SUPERINTENDENT LOCAL Appointment [facility] Nuclear Medicine [address] [place] [address] [id number] Edilia Pettit, CHELY [address] [facility] [address] [place] [address] documented as of this encounter Visit Diagnoses Not on filedocumented in this encounter Care Teams Low Pressure Boiler Operator Relationship Specialty Start Date End Date Shilo Soares MD [address] [place] [address] PCP - General Internal Medicine 04/24/23 documented as of this encounter
--- OUTSIDE RECORDS SUMMARY | 2024-07-26 23:52 | XMS_ITS | Encounter Summary ---
Author Organization [facility] Address [address] [place] [address] Care Team Providers Care Cash Register Servicer Name Role Phone Shilo Soares MD Primary Care Provider [phone] Encounter Details Date Type Department Care Team [...] (Late Contact Info) Description 08/04/2024 1:00 PM MANAGING CONSULTANT Appointment [facility] 2nd Id [address] [place] [address] Aviva Humphries MD [address] [place] [address] Infusion Chair 5, 2nd Floor [place] 08/25/2024 1:00 PM MANAGING CONSULTANT Office Visit [facility] Gynecologic Oncology Hall [address] [place] [address] Edilia Pettit, CHELY [address] [place] [address] 08/25/2024 1:30 PM MANAGING CONSULTANT Appointment [facility] 2nd Fl [address] [place] [address] Aviva Humphries MD [address] [place] [address] Infusion Chair 1, 2nd Floor [place] 09/01/2024 10:45 AM MANAGING CONSULTANT Appointment [facility] Nuclear Medicine [address] [place] [address] [id number] Edilia Pettit, CHELY [address] [facility] [address] [place] [address] documented as of this encounter Visit Diagnoses Not on filedocumented in this encounter Care Teams Cash Register Servicer Relationship Specialty Start Date End Date Shilo Soares MD [address] [place] [address] PCP - General Internal Medicine 04/24/23 documented as of this encounter
--- OUTSIDE RECORDS SUMMARY | 2024-07-26 23:52 | XMS_ITS | Encounter Summary ---
Author Organization [facility] Address [address] [place] [address] Care Team Providers Care Patient Resource Specialist Name Role Phone Shilo Soares MD Primary Care Provider [phone] Encounter Details Date Type Department Care Team [...] (Late Contact Info) Description 08/04/2024 1:00 PM LINOTYPE MACHINIST APPRENTICE Appointment [facility] 2nd Ne [address] [place] [address] Aviva Humphries MD [address] [place] [address] Infusion Chair 5, 2nd Floor Hall 08/25/2024 1:00 PM LINOTYPE MACHINIST APPRENTICE Office Visit [facility] Gynecologic Oncology Hall [address] [place] [address] Edilia Pettit, CHELY [address] [place] [address] 08/25/2024 1:30 PM LINOTYPE MACHINIST APPRENTICE Appointment [facility] 2nd Fl [address] [place] [address] Aviva Humphries MD [address] [place] [address] Infusion Chair 1, 2nd Floor [place] 09/01/2024 10:45 AM LINOTYPE MACHINIST APPRENTICE Appointment [facility] Nuclear Medicine [address] [place] [address] [id number] Edilia Pettit, CHELY [address] [facility] [address] [place] [address] documented as of this encounter Visit Diagnoses Not on filedocumented in this encounter Care Teams Patient Resource Specialist Relationship Specialty Start Date End Date Shilo Soares MD [address] [place] [address] PCP - General Internal Medicine 04/24/23 documented as of this encounter
--- OUTSIDE RECORDS SUMMARY | 2024-07-26 23:52 | XMS_ITS | Encounter Summary ---
Author Organization [facility] Address [address] [place] [address] Care Team Providers Care Director Of Cardiac Rehabilitation Name Role Phone Shilo Soares MD Primary Care Provider [phone] Encounter Details Date Type Department Care Team [...] (Late Contact Info) Description 08/04/2024 1:00 PM LIQUEFACTION PLANT OPERATOR Appointment [facility] 2nd [place] [address] [place] [address] Aviva Humphries MD [address] [place] [address] Infusion Chair 5, 2nd Floor Hall 08/25/2024 1:00 PM LIQUEFACTION PLANT OPERATOR Office Visit [facility] Gynecologic Oncology Hall [address] [place] [address] Edilia Pettit, CHELY [address] [facility] [address] [place] [address] 08/25/2024 1:30 PM LIQUEFACTION PLANT OPERATOR Appointment [facility] 2nd Fl [address] [place] [address] Aviva Humphries MD [address] [place] [address] Infusion Chair 1, 2nd Floor [place] 09/01/2024 10:45 AM LIQUEFACTION PLANT OPERATOR Appointment [facility] Nuclear Medicine [address] [place] [address] [id number] Edilia Pettit, CHELY [address] [facility] [address] [place] [address] documented as of this encounter Visit Diagnoses Not on filedocumented in this encounter Care Teams Director Of Cardiac Rehabilitation Relationship Specialty Start Date End Date Shilo Soares MD [address] [place] [address] PCP - General Internal Medicine 04/24/23 documented as of this encounter
--- OUTSIDE RECORDS SUMMARY | 2024-07-26 23:52 | XMS_ITS | Encounter Summary ---
Author Organization [facility] Address [address] [place] [address] Care Team Providers Care Radio Station Operator Name Role Phone Shilo Soares MD Primary Care Provider [phone] Encounter Details Date Type Department Care Team [...] (Late Contact Info) Description 08/04/2024 1:00 PM NUTRITIONAL SERVICES COOK Appointment [facility] 2nd [place] [address] [place] [address] Aviva Humphries MD [address] [place] [address] Infusion Chair 5, 2nd Floor [place] 08/25/2024 1:00 PM NUTRITIONAL SERVICES COOK Office Visit [facility] Gynecologic Oncology Hall [address] [place] [address] Edilia Pettit, CHELY [address] [place] [address] 08/25/2024 1:30 PM NUTRITIONAL SERVICES COOK Appointment [facility] 2nd Fl [address] [place] [address] Aviva Humphries MD [address] [facility] [address] [facility] [address] [place] [address] Infusion Chair 1, 2nd Floor [place] 09/01/2024 10:45 AM NUTRITIONAL SERVICES COOK Appointment [facility] Nuclear Medicine [address] [place] [address] [id number] Edilia Pettit, CHELY [address] [facility] [address] [place] [address] documented as of this encounter Visit Diagnoses Not on filedocumented in this encounter Care Teams Radio Station Operator Relationship Specialty Start Date End Date Shilo Soares MD [address] [place] [address] PCP - General Internal Medicine 04/24/23 documented as of this encounter
--- OUTSIDE RECORDS SUMMARY | 2024-07-26 23:52 | XMS_ITS | Encounter Summary ---
Author Organization [facility] Address [address] [place] [address] Care Team Providers Care Stage Rigger Name Role Phone Shilo Soares MD Primary Care Provider [phone] Encounter Details Date Type Department Care Team [...] (Late Contact Info) Description 08/04/2024 1:00 PM LADLE LINER HELPER Appointment [facility] 2nd [place] [address] [place] [address] Aviva Humphries MD [address] [place] [address] Infusion Chair 5, 2nd Floor [place] 08/25/2024 1:00 PM LADLE LINER HELPER Office Visit [facility] Gynecologic Oncology Hall [address] [place] [address] Edilia Pettit, CHELY [address] [facility] [address] [place] [address] 08/25/2024 1:30 PM LADLE LINER HELPER Appointment [facility] 2nd Fl [address] [place] [address] Aviva Humphries MD [address] [place] [address] Infusion Chair 1, 2nd Floor [place] 09/01/2024 10:45 AM LADLE LINER HELPER Appointment [facility] Nuclear Medicine [address] [place] [address] [id number] Edilia Pettit, CHELY [address] [facility] [address] [place] [address] documented as of this encounter Visit Diagnoses Not on filedocumented in this encounter Care Teams Stage Rigger Relationship Specialty Start Date End Date Shilo Soares MD [address] [place] [address] PCP - General Internal Medicine 04/24/23 documented as of this encounter
--- OUTSIDE RECORDS SUMMARY | 2024-07-26 23:52 | XMS_ITS | Encounter Summary ---
Author Organization [facility] Address [address] [place] [address] Care Team Providers Care Environmental Permitting Specialist Name Role Phone Shilo Soares MD Primary Care Provider [phone] Encounter Details Date Type Department Care Team [...] (Late Contact Info) Description 08/04/2024 1:00 PM ORGAN GRINDER Appointment [facility] 2nd Ne [address] [place] [address] Aviva Humphries MD [address] [place] [address] Infusion Chair 5, 2nd Floor Hall 08/25/2024 1:00 PM ORGAN GRINDER Office Visit [facility] Gynecologic Oncology Hall [address] [place] [address] Edilia Pettit, CHELY [address] [place] [address] 08/25/2024 1:30 PM ORGAN GRINDER Appointment [facility] 2nd Fl [address] [place] [address] Aviva Humphries MD [address] [place] [address] Infusion Chair 1, 2nd Floor [place] 09/01/2024 10:45 AM ORGAN GRINDER Appointment [facility] Nuclear Medicine [address] [place] [address] [id number] Edilia Pettit, CHELY [address] [facility] [address] [place] [address] documented as of this encounter Visit Diagnoses Not on filedocumented in this encounter Care Teams Environmental Permitting Specialist Relationship Specialty Start Date End Date Shilo Soares MD [address] [place] [address] PCP - General Internal Medicine 04/24/23 documented as of this encounter
--- OUTSIDE RECORDS SUMMARY | 2024-07-26 23:52 | XMS_ITS | Encounter Summary ---
Author Organization [facility] Address [address] [place] [address] Care Team Providers Care Reimbursement Specialist Name Role Phone Shilo Soares MD Primary Care Provider [phone] Encounter Details Date Type Department Care Team [...] (Late Contact Info) Description 08/04/2024 1:00 PM FEED MANAGEMENT ADVISOR Appointment [facility] 2nd Vt [address] [place] [address] Aviva Humphries MD [address] [place] [address] Infusion Chair 5, 2nd Floor Hall 08/25/2024 1:00 PM FEED MANAGEMENT ADVISOR Office Visit [facility] Gynecologic Oncology Hall [address] [place] [address] Edilia Pettit, CHELY [address] [place] [address] 08/25/2024 1:30 PM FEED MANAGEMENT ADVISOR Appointment [facility] 2nd Fl [address] [place] [address] Aviva Humphries MD [address] [place] [address] Infusion Chair 1, 2nd Floor [place] 09/01/2024 10:45 AM FEED MANAGEMENT ADVISOR Appointment [facility] Nuclear Medicine [address] [place] [address] [id number] Edilia Pettit, CHELY [address] [facility] [address] [place] [address] documented as of this encounter Visit Diagnoses Not on filedocumented in this encounter Care Teams Reimbursement Specialist Relationship Specialty Start Date End Date Shilo Soares MD [address] [place] [address] PCP - General Internal Medicine 04/24/23 documented as of this encounter
--- OUTSIDE RECORDS SUMMARY | 2024-07-26 23:52 | XMS_ITS | Encounter Summary ---
Author Organization [facility] Address [address] [place] [address] Care Team Providers Care Form Setter Metal Road Forms Name Role Phone Shilo Soares MD Primary Care Provider [phone] Encounter Details Date Type Department Care Team [...] (Late Contact Info) Description 08/04/2024 1:00 PM PAYROLL SPECIALIST Appointment [facility] 2nd Mt [address] [place] [address] Aviva Humphries MD [address] [place] [address] Infusion Chair 5, 2nd Floor Hall 08/25/2024 1:00 PM PAYROLL SPECIALIST Office Visit [facility] Gynecologic Oncology Hall [address] [place] [address] Edilia Pettit, CHELY [address] [place] [address] 08/25/2024 1:30 PM PAYROLL SPECIALIST Appointment [facility] 2nd Fl [address] [place] [address] Aviva Humphries MD [address] [place] [address] Infusion Chair 1, 2nd Floor [place] 09/01/2024 10:45 AM PAYROLL SPECIALIST Appointment Randy [facility] Nuclear Medicine [address] [place] [address] [id number] Edilia Pettit, CHELY [address] [facility] [address] [place] [address] documented as of this encounter Visit Diagnoses Not on filedocumented in this encounter Care Teams Form Setter Metal Road Forms Relationship Specialty Start Date End Date Shilo Soares MD [address] [place] [address] PCP - General Internal Medicine 04/24/23 documented as of this encounter
--- OUTSIDE RECORDS SUMMARY | 2024-07-26 23:52 | XMS_ITS | Encounter Summary ---
Author Organization [facility] Address [address] [place] [address] Care Team Providers Care Security Operations Specialist Name Role Phone Shilo Soares MD Primary Care Provider [phone] Encounter Details Date Type Department Care Team [...] (Late Contact Info) Description 08/04/2024 1:00 PM FLUOROSCOPE OPERATOR Appointment [facility] 2nd Nh [address] [place] [address] Aviva Humphries MD [address] [place] [address] Infusion Chair 5, 2nd Floor Hall 08/25/2024 1:00 PM FLUOROSCOPE OPERATOR Office Visit [facility] Gynecologic Oncology Hall [address] [place] [address] Edilia Pettit, CHELY [address] [facility] [address] [facility] [address] [place] [address] 08/25/2024 1:30 PM FLUOROSCOPE OPERATOR Appointment [facility] 2nd Fl [address] [place] [address] Aviva Humphries MD [address] [place] [address] Infusion Chair 1, 2nd Floor [place] 09/01/2024 10:45 AM FLUOROSCOPE OPERATOR Appointment [facility] Nuclear Medicine [address] [place] [address] [id number] Edilia Pettit, CHELY [address] [facility] [address] [place] [address] documented as of this encounter Visit Diagnoses Not on filedocumented in this encounter Care Teams Security Operations Specialist Relationship Specialty Start Date End Date Shilo Soares MD [address] [place] [address] PCP - General Internal Medicine 04/24/23 documented as of this encounter
--- OUTSIDE RECORDS SUMMARY | 2024-07-26 23:53 | XMS_ITS | Encounter Summary ---
Author Organization [facility] Address [address] [place] [address] Care Team Providers Care Director Internal Communications Name Role Phone Shilo Soares MD Primary Care Provider [phone] Encounter Details Date Type Department Care Team (Late Contact Info) Description 12/20/2023 External Device Data STL ABSTRACTION Provider, Abstract [...] Contact Info) Description 08/04/2024 1:00 PM CLINICAL SERVICES PROFESSIONAL Appointment [facility] 2nd Ca [address] [place] [address] Aviva Humphries MD [address] [place] [address] Infusion Chair 5, 2nd Floor [place] 08/25/2024 1:00 PM CLINICAL SERVICES PROFESSIONAL Office Visit [facility] Gynecologic Oncology Hall [address] [place] [address] Edilia Pettit, CHELY [address] [place] [address] 08/25/2024 1:30 PM CLINICAL SERVICES PROFESSIONAL Appointment [facility] 2nd Fl [address] [place] [address] Aviva Humphries MD [address] [facility] [address] [place] [address] Infusion Chair 1, 2nd Floor [place] 09/01/2024 10:45 AM CLINICAL SERVICES PROFESSIONAL Appointment [facility] Nuclear Medicine [address] [place] [address] [id number] Edilia Pettit, CHELY [address] [facility] [address] [place] [address] documented as of this encounter Visit Diagnoses Not on filedocumented in this encounter Care Teams Director Internal Communications Relationship Specialty Start Date End Date Shilo Soares MD [address] [place] [address] PCP - General Internal Medicine 04/24/23 documented as of this encounter
--- OUTSIDE RECORDS SUMMARY | 2024-07-26 23:53 | XMS_ITS | Encounter Summary ---
Author Organization [facility] Address [address] [place] [address] Care Team Providers Care Film Sound Engineer Name Role Phone Shilo Soares MD Primary Care Provider [phone] Encounter Details Date Type Department Care Team (Late Contact Info) Description 12/25/2023 External Device Data STL ABSTRACTION Provider, Abstract [...] (Late Contact Info) Description 08/04/2024 1:00 PM AIRCRAFT PART ASSEMBLER Appointment [facility] 2nd [place] [address] [place] [address] Aviva Humphries MD [address] [place] [address] Infusion Chair 5, 2nd Floor [place] 08/25/2024 1:00 PM AIRCRAFT PART ASSEMBLER Office Visit [facility] Gynecologic Oncology Hall [address] [place] [address] Edilia Pettit, CHELY [address] [place] [address] 08/25/2024 1:30 PM AIRCRAFT PART ASSEMBLER Appointment [facility] 2nd Fl [address] [place] [address] Aviva Humphrise MD [address] [place] [address] Infusion Chair 1, 2nd Floor [place] 09/01/2024 10:45 AM AIRCRAFT PART ASSEMBLER Appointment [facility] Nuclear Medicine [address] [place] [address] [id number] Edilia Pettit, CHELY [address] [facility] [address] [place] [address] documented as of this encounter Visit Diagnoses Not on filedocumented in this encounter Care Teams Film Sound Engineer Relationship Specialty Start Date End Date Shilo Soares MD [address] [place] [address] PCP - General Internal Medicine 04/24/23 documented as of this encounter
--- OUTSIDE RECORDS SUMMARY | 2024-07-26 23:53 | XMS_ITS | Encounter Summary ---
Author Organization [facility] Address [address] [place] [address] Care Team Providers Care Pallet Repairer Name Role Phone Shilo Soares MD Primary Care Provider [phone] Encounter Details Date Type Department Care Team (Late Contact Info) Description 12/22/2023 External Device Data STL ABSTRACTION Provider, Abstract [...] (Late Contact Info) Description 08/04/2024 1:00 PM VESSEL WELDER Appointment [facility] 2nd Wy [address] [place] [address] Aviva Humphries MD [address] [place] [address] Infusion Chair 5, 2nd Floor Hall 08/25/2024 1:00 PM VESSEL WELDER Office Visit [facility] Gynecologic Oncology Hall [address] [place] [address] Edilia Pettit, CHELY [address] [place] [address] 08/25/2024 1:30 PM VESSEL WELDER Appointment [facility] 2nd Fl [address] [place] [address] Aviva Humphries MD [address] [facility] [facility] [address] [place] [address] Infusion Chair 1, 2nd Floor [place] 09/01/2024 10:45 AM VESSEL WELDER Appointment [facility] Nuclear Medicine [address] [place] [address] [id number] Edilia Pettit, CHELY [address] [facility] [address] [place] [address] documented as of this encounter Visit Diagnoses Not on filedocumented in this encounter Care Teams Pallet Repairer Relationship Specialty Start Date End Date Shilo Soares MD [address] [place] [address] PCP - General Internal Medicine 04/24/23 documented as of this encounter
--- OUTSIDE RECORDS SUMMARY | 2024-07-26 23:53 | XMS_ITS | Encounter Summary ---
Author Organization [facility] Address [address] [place] [address] Care Team Providers Care Renal Medicine Specialist Name Role Phone Shilo Soares MD Primary Care Provider [phone] Encounter Details Date Type Department Care Team (Late Contact Info) Description 12/14/2023 Orders Only [facility] Gynecologic Oncology Hall [address] [place] [address] Aviva Humphries MD [address] [place] [address] Malignant neoplasm of ovary, unspecified laterality Social [...] (Late Contact Info) Description 08/04/2024 1:00 PM KETTLE LOADER Appointment [facility] [address] Fl [address] [place] [address] Aviva Humphries MD [address] [place] [address] Infusion Chair 5, 2nd Floor Hall 08/25/2024 1:00 PM KETTLE LOADER Office Visit [facility] Gynecologic Oncology Hall [address] [place] [address] Edilia Pettit, CHELY [address] [place] [address] 08/25/2024 1:30 PM KETTLE LOADER Appointment [facility] [address] [place] [address] Aviva Humphries MD [address] [place] [address] Infusion Chair 1, 2nd Floor Hall 09/01/2024 10:45 AM KETTLE LOADER Appointment Randy [facility] Nuclear Medicine [address] [place] [address] [id number] Edilia Pettit, CHELY [address] [facility] [address] [place] [address] documented as of this encounter Visit Diagnoses Diagnosis Malignant neoplasm of ovary, unspecified laterality documented in this encounter Care Teams Renal Medicine Specialist Relationship Specialty Start Date End Date Shilo Soares MD [address] [facility] [address] [place] [address] PCP - General Internal Medicine 04/24/23 documented as of this encounter
--- OUTSIDE RECORDS SUMMARY | 2024-07-26 23:53 | XMS_ITS | Encounter Summary ---
Author Organization [facility] Address [address] [place] [address] Care Team Providers Care Senior J2Ee Developer Name Role Phone Shilo Soares MD Primary Care Provider [phone] Encounter Details Date Type Department Care Team [...] (Late Contact Info) Description 08/04/2024 1:00 PM LEATHER DRESSER Appointment [facility] 2nd Az [address] [place] [address] Aviva Humphries MD [address] [place] [address] Infusion Chair 5, 2nd Floor Hall 08/25/2024 1:00 PM LEATHER DRESSER Office Visit [facility] Gynecologic Oncology Hall [address] [place] [address] Edilia Pettit, CHELY [address] [place] [address] 08/25/2024 1:30 PM LEATHER DRESSER Appointment [facility] 2nd Fl [address] [place] [address] Aviva Humphries MD [address] [place] [address] Infusion Chair 1, 2nd Floor [place] 09/01/2024 10:45 AM LEATHER DRESSER Appointment Randy [facility] Nuclear Medicine [address] [place] [address] [id number] Edilia Pettit, CHELY [address] [facility] [address] [place] [address] documented as of this encounter Visit Diagnoses Not on filedocumented in this encounter Care Teams Senior J2Ee Developer Relationship Specialty Start Date End Date Shilo Soares MD [address] [place] [address] PCP - General Internal Medicine 04/24/23 documented as of this encounter
--- OUTSIDE RECORDS SUMMARY | 2024-07-26 23:53 | XMS_ITS | Encounter Summary ---
Author Organization [facility] Address [address] [place] [address] Care Team Providers Care Tyre Retreader Name Role Phone Shilo Soares MD Primary Care Provider [phone] Encounter Details Date Type Department Care Team (Late Contact Info) Description 12/24/2023 External Device Data STL ABSTRACTION Provider, Abstract [...] Contact Info) Description 08/04/2024 1:00 PM WEB OFFSET PRESS FEEDER Appointment [facility] 2nd Ma [address] [place] [address] Aviva Humphries MD [address] [place] [address] Infusion Chair 5, 2nd Floor Hall 08/25/2024 1:00 PM WEB OFFSET PRESS FEEDER Office Visit [facility] Gynecologic Oncology Hall [address] [place] [address] Edilia Pettit, CHELY [address] [facility] [address] [address] [place] [address] 08/25/2024 1:30 PM WEB OFFSET PRESS FEEDER Appointment [facility] 2nd Fl [address] [place] [address] Aviva Humphries MD [address] [facility] [address] [place] [address] Infusion Chair 1, 2nd Floor [place] 09/01/2024 10:45 AM WEB OFFSET PRESS FEEDER Appointment [facility] Nuclear Medicine [address] [place] [address] [id number] Edilia Pettit, CHELY [address] [address] [address] [place] [address] documented as of this encounter Visit Diagnoses Not on filedocumented in this encounter Care Teams Tyre Retreader Relationship Specialty Start Date End Date Shilo Soares MD [address] [place] [address] PCP - General Internal Medicine 04/24/23 documented as of this encounter
--- OUTSIDE RECORDS SUMMARY | 2024-07-26 23:53 | XMS_ITS | Encounter Summary ---
Author Organization [facility] Address [address] [place] [address] Care Team Providers Care Post Acute Care Nurse Name Role Phone Shilo Soares MD Primary Care Provider [phone] Encounter Details Date Type Department Care Team (Late Contact Info) Description 12/21/2023 External Device Data STL ABSTRACTION Provider, Abstract [...] (Late Contact Info) Description 08/04/2024 1:00 PM OBSERVER GRAVITY PROSPECTING Appointment [facility] 2nd [place] [address] [place] [address] Aviva Humphries MD [address] [place] [address] Infusion Chair 5, 2nd Floor Hall 08/25/2024 1:00 PM OBSERVER GRAVITY PROSPECTING Office Visit [facility] Gynecologic Oncology Hall [address] [place] [address] Edilia Pettit, CHELY [address] [facility] [facility] [address] [place] [address] 08/25/2024 1:30 PM OBSERVER GRAVITY PROSPECTING Appointment [facility] 2nd Fl [address] [place] [address] Aviva Humphries MD [address] [place] [address] Infusion Chair 1, 2nd Floor [place] 09/01/2024 10:45 AM OBSERVER GRAVITY PROSPECTING Appointment Randy [facility] Nuclear Medicine [address] [place] [address] [id number] Edilia Pettit, CHELY [address] [facility] [address] [place] [address] documented as of this encounter Visit Diagnoses Not on filedocumented in this encounter Care Teams Post Acute Care Nurse Relationship Specialty Start Date End Date Shilo Soares MD [address] [place] [address] PCP - General Internal Medicine 04/24/23 documented as of this encounter
--- OUTSIDE RECORDS SUMMARY | 2024-07-26 23:53 | XMS_ITS | Encounter Summary ---
Author Organization [facility] Address [address] [place] [address] Care Team Providers Care Beater Head Name Role Phone Shilo Soares MD Primary Care Provider [phone] Encounter Details Date Type Department Care Team (Late Contact Info) Description 12/16/2023 External Device Data STL ABSTRACTION Provider, Abstract [...] (Late Contact Info) Description 08/04/2024 1:00 PM LURER Appointment [facility] 2nd Sc [address] [place] [address] Aviva Humphries MD [address] [place] [address] Infusion Chair 5, 2nd Floor Hall 08/25/2024 1:00 PM LURER Office Visit [facility] Gynecologic Oncology Hall [address] [place] [address] Edilia Pettit, CHELY [address] [facility] [facility] [facility] [address] [place] [address] 08/25/2024 1:30 PM LURER Appointment [facility] 2nd Fl [address] [place] [address] Aviva Humphries MD [address] [place] [address] Infusion Chair 1, 2nd Floor [place] 09/01/2024 10:45 AM LURER Appointment Randy [facility] Nuclear Medicine [address] [place] [address] [id number] Edilia Pettit, CHELY [address] [facility] [address] [place] [address] documented as of this encounter Visit Diagnoses Not on filedocumented in this encounter Care Teams Beater Head Relationship Specialty Start Date End Date Shilo Soares MD [address] [place] [address] PCP - General Internal Medicine 04/24/23 documented as of this encounter
--- OUTSIDE RECORDS SUMMARY | 2024-07-26 23:53 | XMS_ITS | Encounter Summary ---
Author Organization [facility] Address [address] [place] [address] Care Team Providers Care Procurement Professional Logistics Name Role Phone Shilo Soares MD Primary Care Provider [phone] Encounter Details Date Type Department Care Team (Late Contact Info) Description 12/23/2023 External Device Data STL ABSTRACTION Provider, Abstract [...] (Late Contact Info) Description 08/04/2024 1:00 PM TERMINOLOGIST Appointment [facility] 2nd [place] [address] [place] [address] Aviva Humphries MD [address] [place] [address] Infusion Chair 5, 2nd Floor Hall 08/25/2024 1:00 PM TERMINOLOGIST Office Visit [facility] Gynecologic Oncology Hall [address] [place] [address] Edilia Pettit, CHELY [address] [address] [address] [place] [address] 08/25/2024 1:30 PM TERMINOLOGIST Appointment [facility] 2nd Fl [address] [place] [address] Aviva Humphries MD [address] [place] [address] Infusion Chair 1, 2nd Floor [place] 09/01/2024 10:45 AM TERMINOLOGIST Appointment Randy [facility] Nuclear Medicine [address] [place] [address] [id number] Edilia Pettit, CHELY [address] [facility] [address] [place] [address] documented as of this encounter Visit Diagnoses Not on filedocumented in this encounter Care Teams Procurement Professional Logistics Relationship Specialty Start Date End Date Shilo Soares MD [address] [place] [address] PCP - General Internal Medicine 04/24/23 documented as of this encounter
--- OUTSIDE RECORDS SUMMARY | 2024-07-26 23:53 | XMS_ITS | Encounter Summary ---
Author Organization [facility] Address [address] [place] [address] Care Team Providers Care Financial Analyst Accountant Name Role Phone Shilo Soares MD Primary Care Provider [phone] Encounter Details Date Type Department Care Team (Late Contact Info) Description 12/19/2023 External Device Data STL ABSTRACTION Provider, Abstract [...] (Late Contact Info) Description 08/04/2024 1:00 PM AERONAUTICAL RESEARCH ENGINEER Appointment [facility] [address] [place] [address] Aviva Humphries MD [address] [place] [address] Infusion Chair 5, 2nd Floor [place] 08/25/2024 1:00 PM AERONAUTICAL RESEARCH ENGINEER Office Visit [facility] Gynecologic Oncology Hall [address] [place] [address] Edilia Pettit, CHELY [address] [facility] [facility] [address] [place] [address] 08/25/2024 1:30 PM AERONAUTICAL RESEARCH ENGINEER Appointment [facility] 2nd Fl [address] [place] [address] Aviva Humphries MD [address] [place] [address] Infusion Chair 1, 2nd Floor [place] 09/01/2024 10:45 AM AERONAUTICAL RESEARCH ENGINEER Appointment [facility] Nuclear Medicine [address] [place] [address] [id number] Edilia Pettit, CHELY [address] [facility] [address] [place] [address] documented as of this encounter Visit Diagnoses Not on filedocumented in this encounter Care Teams Financial Analyst Accountant Relationship Specialty Start Date End Date Shilo Soares MD [address] [place] [address] PCP - General Internal Medicine 04/24/23 documented as of this encounter
--- OUTSIDE RECORDS SUMMARY | 2024-07-26 23:53 | XMS_ITS | Encounter Summary ---
Author Organization [facility] Address [address] [place] [address] Care Team Providers Care Support Teacher Name Role Phone Shilo Soares MD Primary Care Provider [phone] Encounter Details Date Type Department Care Team (Late Contact Info) Description 12/12/2023 External Device Data STL ABSTRACTION Provider, Abstract [...] (Late Contact Info) Description 08/04/2024 1:00 PM BAR CAPTAIN Appointment [facility] [address] [place] [address] Aviva Humphries MD [address] [place] [address] Infusion Chair 5, 2nd Floor Hall 08/25/2024 1:00 PM BAR CAPTAIN Office Visit [facility] Gynecologic Oncology Hall [address] [place] [address] Edilia Pettit, CHELY [address] [address] [place] [address] 08/25/2024 1:30 PM BAR CAPTAIN Appointment [facility] 2nd Fl [address] [place] [address] Aviva Humphries MD [address] [facility] [facility] [address] [place] [address] Infusion Chair 1, 2nd Floor [place] 09/01/2024 10:45 AM BAR CAPTAIN Appointment [facility] Nuclear Medicine [address] [place] [address] [id number] Edilia Pettit, CHELY [address] [facility] [address] [place] [address] documented as of this encounter Visit Diagnoses Not on filedocumented in this encounter Care Teams Support Teacher Relationship Specialty Start Date End Date Shilo Soares MD [address] [place] [address] PCP - General Internal Medicine 04/24/23 documented as of this encounter
--- OUTSIDE RECORDS SUMMARY | 2024-07-26 23:53 | XMS_ITS | Encounter Summary ---
Author Organization [facility] Address [address] [place] [address] Care Team Providers Care Chemical Pathologist Name Role Phone Shilo Soares MD Primary Care Provider [phone] Encounter Details Date Type Department Care Team [...] Contact Info) Description 08/04/2024 1:00 PM CLINICAL CARE COORDINATOR Appointment [facility] 2[facility] Ok [address] [place] [address] Aviva Humphries MD [address] [place] [address] Infusion Chair 5, 2nd Floor Hall 08/25/2024 1:00 PM CLINICAL CARE COORDINATOR Office Visit [facility] Gynecologic Oncology Hall [address] [place] [address] Edilia Pettit, CHELY [address] [facility] [address] [facility] [address] [place] [address] 08/25/2024 1:30 PM CLINICAL CARE COORDINATOR Appointment [facility] 2nd Fl [address] [place] [address] Aviva Humphries MD [address] [facility] [place] [address] Infusion Chair 1, 2nd Floor [place] 09/01/2024 10:45 AM CLINICAL CARE COORDINATOR Appointment [facility] Nuclear Medicine [address] [place] [address] [id number] Edilia Pettit, CHELY [address] [facility] [address] [place] [address] documented as of this encounter Visit Diagnoses Not on filedocumented in this encounter Care Teams Chemical Pathologist Relationship Specialty Start Date End Date Shilo Soares MD [address] [place] [address] PCP - General Internal Medicine 04/24/23 documented as of this encounter
--- OUTSIDE RECORDS SUMMARY | 2024-07-26 23:53 | XMS_ITS | Encounter Summary ---
Author Organization [facility] Address [address] [place] [address] Care Team Providers Care Salesperson Art Objects Name Role Phone Shilo Soares MD Primary Care Provider [phone] Encounter Details Date Type Department Care Team [...] Contact Info) Description 08/04/2024 1:00 PM SEMICONDUCTOR WAFERS SAW OPERATOR Appointment [facility] Al [address] [place] [address] Aviva Humphries MD [address] [place] [address] Infusion Chair 5, 2nd Floor Hall 08/25/2024 1:00 PM SEMICONDUCTOR WAFERS SAW OPERATOR Office Visit [facility] Gynecologic Oncology Hall [address] [place] [address] Edilia Pettit, CHELY [address] [facility] [facility] [address] [place] [address] 08/25/2024 1:30 PM SEMICONDUCTOR WAFERS SAW OPERATOR Appointment [facility] 2nd Fl [address] [place] [address] Aviva Humphries MD [address] [place] [address] Infusion Chair 1, 2nd Floor [place] 09/01/2024 10:45 AM SEMICONDUCTOR WAFERS SAW OPERATOR Appointment [facility] Nuclear Medicine [address] [place] [address] [id number] Edilia Pettit, CHELY [address] [facility] [address] [place] [address] documented as of this encounter Visit Diagnoses Not on filedocumented in this encounter Care Teams Salesperson Art Objects Relationship Specialty Start Date End Date Shilo Soares MD [address] [place] [address] PCP - General Internal Medicine 04/24/23 documented as of this encounter
--- OUTSIDE RECORDS SUMMARY | 2024-07-26 23:53 | XMS_ITS | Encounter Summary ---
Author Organization [facility] Address [address] [place] [address] Care Team Providers Care Marketing Lead Name Role Phone Shilo Soares MD Primary Care Provider [phone] Encounter Details Date Type Department Care Team [...] (Late Contact Info) Description 08/04/2024 1:00 PM INSTALL AND REPAIR TECHNICIAN Appointment [facility] 2nd Ok [address] [place] [address] Aviva Humphries MD [address] [place] [address] Infusion Chair 5, 2nd Floor Hall 08/25/2024 1:00 PM INSTALL AND REPAIR TECHNICIAN Office Visit [facility] Gynecologic Oncology Hall [address] [place] [address] Edilia Pettit, CHELY [address] [place] [address] 08/25/2024 1:30 PM INSTALL AND REPAIR TECHNICIAN Appointment [facility] 2nd Fl [address] [place] [address] Aviva Humphries MD [address] [facility] [address] [place] [address] Infusion Chair 1, 2nd Floor [place] 09/01/2024 10:45 AM INSTALL AND REPAIR TECHNICIAN Appointment [facility] Nuclear Medicine [address] [place] [address] [id number] Edilia Pettit, CHELY [address] [facility] [address] [place] [address] documented as of this encounter Visit Diagnoses Not on filedocumented in this encounter Care Teams Marketing Lead Relationship Specialty Start Date End Date Shilo Soares MD [address] [place] [address] PCP - General Internal Medicine 04/24/23 documented as of this encounter
--- OUTSIDE RECORDS SUMMARY | 2024-07-26 23:53 | XMS_ITS | Encounter Summary ---
Author Organization [facility] Address [address] [place] [address] Care Team Providers Care Table Keeper Name Role Phone Shilo Soares MD Primary Care Provider [phone] Encounter Details Date Type Department Care Team [...] (Late Contact Info) Description 08/04/2024 1:00 PM ASSEMBLER CRIMPER Appointment [facility] 2nd Ga [address] [place] [address] Aviva Humphries MD [address] [place] [address] Infusion Chair 5, 2nd Floor Hall 08/25/2024 1:00 PM ASSEMBLER CRIMPER Office Visit [facility] Gynecologic Oncology Hall [address] [place] [address] Edilia Pettit, CHELY [address] [facility] [address] [place] [address] 08/25/2024 1:30 PM ASSEMBLER CRIMPER Appointment [facility] 2nd Fl [address] [place] [address] Aviva Humphries MD [address] [place] [address] Infusion Chair 1, 2nd Floor [place] 09/01/2024 10:45 AM ASSEMBLER CRIMPER Appointment [facility] Nuclear Medicine [address] [place] [address] [id number] Edilia Pettit, CHELY [address] [facility] [address] [place] [address] documented as of this encounter Visit Diagnoses Not on filedocumented in this encounter Care Teams Table Keeper Relationship Specialty Start Date End Date Shilo Soares MD [address] [place] [address] PCP - General Internal Medicine 04/24/23 documented as of this encounter
--- OUTSIDE RECORDS SUMMARY | 2024-07-26 23:53 | XMS_ITS | Encounter Summary ---
Author Organization [facility] Address [address] [place] [address] Care Team Providers Care Shirring Tender Name Role Phone hSilo Soares MD Primary Care Provider [phone] Encounter Details Date Type Department Care Team (Late Contact Info) Description 12/18/2023 External Device Data STL ABSTRACTION Provider, Abstract [...] (Late Contact Info) Description 08/04/2024 1:00 PM FORGE PRESS OPERATOR Appointment [facility] 2nd Ms [address] [place] [address] Aviva Humphries MD [address] [place] [address] Infusion Chair 5, 2nd Floor [place] 08/25/2024 1:00 PM FORGE PRESS OPERATOR Office Visit [facility] Gynecologic Oncology Hall [address] [place] [address] Edilia Pettit, CHELY [address] [facility] [address] [place] [address] 08/25/2024 1:30 PM FORGE PRESS OPERATOR Appointment [facility] 2nd Fl [address] [place] [address] Aviva Humphries MD [address] [facility] [address] [place] [address] Infusion Chair 1, 2nd Floor [place] 09/01/2024 10:45 AM FORGE PRESS OPERATOR Appointment [facility] Nuclear Medicine [address] [place] [address] [id number] Edilia Pettit, CHELY [address] [facility] [address] [place] [address] documented as of this encounter Visit Diagnoses Not on filedocumented in this encounter Care Teams Shirring Tender Relationship Specialty Start Date End Date Shilo Soares MD [address] [place] [address] PCP - General Internal Medicine 04/24/23 documented as of this encounter
--- OUTSIDE RECORDS SUMMARY | 2024-07-26 23:53 | XMS_ITS | Encounter Summary ---
Author Organization [facility] Address [address] [place] [address] Care Team Providers Care Mica Washer Gluer Name Role Phone Shilo Soares MD Primary Care Provider [phone] Encounter Details Date Type Department Care Team (Late Contact Info) Description 12/17/2023 External Device Data STL ABSTRACTION Provider, Abstract [...] (Late Contact Info) Description 08/04/2024 1:00 PM STEWARD/STEWARDESS DECK Appointment [facility] 2nd Pr [address] [place] [address] Aviva Humphries MD [address] [place] [address] Infusion Chair 5, 2nd Floor Hall 08/25/2024 1:00 PM STEWARD/STEWARDESS DECK Office Visit [facility] Gynecologic Oncology Hall [address] [place] [address] Edilia Pettit, CHELY [address] [facility] [address] [place] [address] 08/25/2024 1:30 PM STEWARD/STEWARDESS DECK Appointment [facility] 2nd Fl [address] [place] [address] Aviva Humphries MD [address] [facility] [address] [place] [address] Infusion Chair 1, 2nd Floor [place] 09/01/2024 10:45 AM STEWARD/STEWARDESS DECK Appointment [facility] Nuclear Medicine [address] [place] [address] [id number] Edilia Pettit, CHELY [address] [facility] [address] [place] [address] documented as of this encounter Visit Diagnoses Not on filedocumented in this encounter Care Teams Mica Washer Gluer Relationship Specialty Start Date End Date Shilo Soares MD [address] [place] [address] PCP - General Internal Medicine 04/24/23 documented as of this encounter
--- OUTSIDE RECORDS SUMMARY | 2024-07-26 23:53 | XMS_ITS | Encounter Summary ---
Author Organization [facility] Address [address] [place] [address] Care Team Providers Care Senior Field Service Engineer Name Role Phone Shilo Soares MD Primary Care Provider [phone] Encounter Details Date Type Department Care Team (Late Contact Info) Description 12/13/2023 External Device Data STL ABSTRACTION Provider, Abstract [...] (Late Contact Info) Description 08/04/2024 1:00 PM HOSPITAL CNA Appointment [facility] 2[facility] [place] [address] [place] [address] Aviva Humphries MD [address] [place] [address] Infusion Chair 5, 2nd Floor [place] 08/25/2024 1:00 PM HOSPITAL CNA Office Visit [facility] Gynecologic Oncology Hall [address] [place] [address] Edilia Pettit, CHELY [address] [place] [address] 08/25/2024 1:30 PM HOSPITAL CNA Appointment [facility] 2nd Fl [address] [place] [address] Aviva Humphries MD [address] [facility] [address] [place] [address] Infusion Chair 1, 2nd Floor [place] 09/01/2024 10:45 AM HOSPITAL CNA Appointment [facility] Nuclear Medicine [address] [place] [address] [id number] Edilia Pettit, CHELY [address] [facility] [address] [place] [address] documented as of this encounter Visit Diagnoses Not on filedocumented in this encounter Care Teams Senior Field Service Engineer Relationship Specialty Start Date End Date Shilo Soares MD [address] [place] [address] PCP - General Internal Medicine 04/24/23 documented as of this encounter
--- OUTSIDE RECORDS SUMMARY | 2024-07-26 23:53 | XMS_ITS | Encounter Summary ---
Author Organization [facility] Address [address] [place] [address] Care Team Providers Care Abrasive Grader Helper Name Role Phone Shilo Soares MD Primary Care Provider [phone] Encounter Details Date Type Department Care Team [...] (Late Contact Info) Description 08/04/2024 1:00 PM REGIONAL WILDLIFE AGENT Appointment [facility] 2nd Sd [address] [place] [address] Aviva Humphries MD [address] [place] [address] Infusion Chair 5, 2nd Floor [place] 08/25/2024 1:00 PM REGIONAL WILDLIFE AGENT Office Visit [facility] Gynecologic Oncology Hall [address] [place] [address] Edilia Pettit, CHELY [address] [facility] [address] [place] [address] 08/25/2024 1:30 PM REGIONAL WILDLIFE AGENT Appointment [facility] 2nd Fl [address] [place] [address] Aviva Humphries MD [address] [facility] [address] [place] [address] Infusion Chair 1, 2nd Floor [place] 09/01/2024 10:45 AM REGIONAL WILDLIFE AGENT Appointment [facility] Nuclear Medicine [address] [place] [address] [id number] Edilia Pettit, CHELY [address] [facility] [address] [place] [address] documented as of this encounter Visit Diagnoses Not on filedocumented in this encounter Care Teams Abrasive Grader Helper Relationship Specialty Start Date End Date Shilo Soares MD [address] [place] [address] PCP - General Internal Medicine 04/24/23 documented as of this encounter
--- OUTSIDE RECORDS SUMMARY | 2024-07-26 23:53 | XMS_ITS | Encounter Summary ---
Author Organization [facility] Address [address] [place] [address] Care Team Providers Care Baker Head Name Role Phone Shilo Soares MD Primary Care Provider [phone] Encounter Details Date Type Department Care Team [...] (Late Contact Info) Description 08/04/2024 1:00 PM CONNIE SCRATCHER Appointment [facility] 2nd Wy [address] [place] [address] Aviva Humphries MD [address] [place] [address] Infusion Chair 5, 2nd Floor Hall 08/25/2024 1:00 PM CONNIE SCRATCHER Office Visit [facility] Gynecologic Oncology Hall [address] [place] [address] Edilia Pettit, CHELY [address] [facility] [address] [place] [address] 08/25/2024 1:30 PM CONNIE SCRATCHER Appointment [facility] 2nd Fl [address] [place] [address] Aviva Humphries MD [address] [facility] [facility] [address] [place] [address] Infusion Chair 1, 2nd Floor [place] 09/01/2024 10:45 AM CONNIE SCRATCHER Appointment [facility] Nuclear Medicine [address] [place] [address] [id number] Edilia Pettit, CHELY [address] [facility] [address] [place] [address] documented as of this encounter Visit Diagnoses Not on filedocumented in this encounter Care Teams Baker Head Relationship Specialty Start Date End Date Shilo Soares MD [address] [place] [address] PCP - General Internal Medicine 04/24/23 documented as of this encounter
--- OUTSIDE RECORDS SUMMARY | 2024-07-26 23:53 | XMS_ITS | Encounter Summary ---
Author Organization [facility] Address [address] [place] [address] Care Team Providers Care Hydrology Teacher Name Role Phone Shilo Soares MD Primary Care Provider [phone] Encounter Details Date Type Department Care Team (Late Contact Info) Description 12/15/2023 External Device Data STL ABSTRACTION Provider, Abstract [...] (Late Contact Info) Description 08/04/2024 1:00 PM EPIC AMBULATORY ANALYSTS Appointment [facility] 2nd Ca [address] [place] [address] Aviva Humphries MD [address] [place] [address] Infusion Chair 5, 2nd Floor [place] 08/25/2024 1:00 PM EPIC AMBULATORY ANALYSTS Office Visit [facility] Gynecologic Oncology Hall [address] [place] [address] Edilia Pettit, CHELY [address] [facility] [address] [place] [address] 08/25/2024 1:30 PM EPIC AMBULATORY ANALYSTS Appointment [facility] 2nd Fl [address] [place] [address] Aviva Humphries MD [address] [facility] [address] [place] [address] Infusion Chair 1, 2nd Floor [place] 09/01/2024 10:45 AM EPIC AMBULATORY ANALYSTS Appointment [facility] Nuclear Medicine [address] [place] [address] [id number] Edilia Pettit, CHELY [address] [facility] [address] [place] [address] documented as of this encounter Visit Diagnoses Not on filedocumented in this encounter Care Teams Hydrology Teacher Relationship Specialty Start Date End Date Shilo Soares MD [address] [place] [address] PCP - General Internal Medicine 04/24/23 documented as of this encounter
--- OUTSIDE RECORDS SUMMARY | 2024-07-26 23:53 | XMS_ITS | Encounter Summary ---
Author Organization [facility] Address [address] [place] [address] Care Team Providers Care Physical Science Teacher Name Role Phone Shilo Soares MD Primary Care Provider [phone] Encounter Details Date Type Department Care Team [...] Contact Info) Description 08/04/2024 1:00 PM ASSOCIATE PROFESSOR OF SOCIOLOGY Appointment [facility] 2nd Tn [address] [place] [address] Aviva Humphries MD [address] [place] [address] Infusion Chair 5, 2nd Floor [place] 08/25/2024 1:00 PM ASSOCIATE PROFESSOR OF SOCIOLOGY Office Visit [facility] Gynecologic Oncology Hall [address] [place] [address] Edilia Pettit, CHELY [address] [facility] [facility] [address] [place] [address] 08/25/2024 1:30 PM ASSOCIATE PROFESSOR OF SOCIOLOGY Appointment [facility] 2nd Fl [address] [place] [address] Aviva Humphries MD [address] [place] [address] Infusion Chair 1, 2nd Floor [place] 09/01/2024 10:45 AM ASSOCIATE PROFESSOR OF SOCIOLOGY Appointment [facility] Nuclear Medicine [address] [place] [address] [id number] Edilia Pettit, CHELY [address] [facility] [address] [place] [address] documented as of this encounter Visit Diagnoses Not on filedocumented in this encounter Care Teams Physical Science Teacher Relationship Specialty Start Date End Date Shilo Soares MD [address] [place] [address] PCP - General Internal Medicine 04/24/23 documented as of this encounter
--- OUTSIDE RECORDS SUMMARY | 2024-07-26 23:53 | XMS_ITS | Encounter Summary ---
Author Organization [facility] Address [address] [place] [address] Care Team Providers Care Syrup Machine Laborer Name Role Phone Shilo Soares MD Primary Care Provider [phone] Encounter Details Date Type Department Care Team [...] (Late Contact Info) Description 08/04/2024 1:00 PM ELECTRICAL SUPERVISOR Appointment [facility] 2nd Nh [address] [place] [address] Aviva Humphries MD [address] [place] [address] Infusion Chair 5, 2nd Floor Hall 08/25/2024 1:00 PM ELECTRICAL SUPERVISOR Office Visit [facility] Gynecologic Oncology Hall [address] [place] [address] Edilia Pettit, CHELY [address] [facility] [facility] [address] [place] [address] 08/25/2024 1:30 PM ELECTRICAL SUPERVISOR Appointment [facility] 2nd Fl [address] [place] [address] Aviva Humphries MD [address] [facility] [address] [facility] [address] [place] [address] Infusion Chair 1, 2nd Floor [place] 09/01/2024 10:45 AM ELECTRICAL SUPERVISOR Appointment [facility] Nuclear Medicine [address] [place] [address] [id number] Edilia Pettit, CHELY [address] [facility] [address] [place] [address] documented as of this encounter Visit Diagnoses Not on filedocumented in this encounter Care Teams Syrup Machine Laborer Relationship Specialty Start Date End Date Shilo Soares MD [address] [place] [address] PCP - General Internal Medicine 04/24/23 documented as of this encounter
--- OUTSIDE RECORDS SUMMARY | 2024-07-26 23:53 | XMS_ITS | Encounter Summary ---
Author Organization [facility] Address [address] [place] [address] Care Team Providers Care Drop Board Worker Name Role Phone Shilo Soares MD Primary Care Provider [phone] Encounter Details Date Type Department Care Team [...] (Late Contact Info) Description 08/04/2024 1:00 PM LEATHERSMITH Appointment [facility] 2nd [place] [address] [place] [address] Aviva Humphries MD [address] [place] [address] Infusion Chair 5, 2nd Floor Hall 08/25/2024 1:00 PM LEATHERSMITH [facility] Gynecologic Oncology Hall [address] [place] [address] Edilia Pettit, CHELY [address] [facility] [address] [place] [address] 08/25/2024 1:30 PM LEATHERSMITH Appointment [facility] 2nd Fl [address] [place] [address] Aviva Humphries MD [address] [place] [address] Infusion Chair 1, 2nd Floor [place] 09/01/2024 10:45 AM LEATHERSMITH Appointment [facility] Nuclear Medicine [address] [place] [address] [id number] Edilia Pettit, CHELY [address] [facility] [address] [place] [address] documented as of this encounter Visit Diagnoses Not on filedocumented in this encounter Care Teams Drop Board Worker Relationship Specialty Start Date End Date Shilo Soares MD [address] [place] [address] PCP - General Internal Medicine 04/24/23 documented as of this encounter
--- OUTSIDE RECORDS SUMMARY | 2024-07-26 23:53 | XMS_ITS | Encounter Summary ---
Author Organization [facility] Address [address] [place] [address] Care Team Providers Care Ct Scan Technologist Name Role Phone Shilo Soares MD Primary Care Provider [phone] Encounter Details Date Type Department Care Team [...] (Late Contact Info) Description 08/04/2024 1:00 PM HOME HEALTH NURSE Appointment [facility] 2nd [place] [address] [place] [address] Aviva Humphries MD [address] [place] [address] Infusion Chair 5, 2nd Floor Hall 08/25/2024 1:00 PM HOME HEALTH NURSE Office Visit [facility] Gynecologic Oncology Hall [address] [place] [address] Edilia Pettit, CHELY [address] [facility] [address] [place] [address] 08/25/2024 1:30 PM HOME HEALTH NURSE Appointment [facility] 2nd Fl [address] [place] [address] Aviva Humphries MD [address] [facility] [address] [place] [address] Infusion Chair 1, 2nd Floor [place] 09/01/2024 10:45 AM HOME HEALTH NURSE Appointment Randy [facility] Nuclear Medicine [address] [place] [address] [id number] Edilia Pettit, CHELY [address] [facility] [address] [place] [address] documented as of this encounter Visit Diagnoses Not on filedocumented in this encounter Care Teams Ct Scan Technologist Relationship Specialty Start Date End Date Shilo Soares MD [address] [place] [address] PCP - General Internal Medicine 04/24/23 documented as of this encounter
--- OUTSIDE RECORDS SUMMARY | 2024-07-26 23:53 | XMS_ITS | Encounter Summary ---
Author Organization [facility] Address [address] [place] [address] Care Team Providers Care Environmental Protection Forester Name Role Phone Shilo Soares MD Primary Care Provider [phone] Encounter Details Date Type Department Care Team [...] (Late Contact Info) Description 08/04/2024 1:00 PM HEADING MAKER Appointment [facility] 2nd Al [address] [place] [address] Aviva Humphries MD [address] [place] [address] Infusion Chair 5, 2nd Floor Hall 08/25/2024 1:00 PM HEADING MAKER Office Visit [facility] Gynecologic Oncology Hall [address] [place] [address] Edilia Pettit, CHELY [address] [facility] [address] [place] [address] 08/25/2024 1:30 PM HEADING MAKER Appointment [facility] 2nd Fl [address] [place] [address] Aviva Humphries MD [address] [facility] [address] [place] [address] Infusion Chair 1, 2nd Floor [place] 09/01/2024 10:45 AM HEADING MAKER Appointment [facility] Nuclear Medicine [address] [place] [address] [id number] Edilia Pettit, CHELY [address] [facility] [address] [place] [address] documented as of this encounter Visit Diagnoses Not on filedocumented in this encounter Care Teams Environmental Protection Forester Relationship Specialty Start Date End Date Shilo Soares MD [address] [place] [address] PCP - General Internal Medicine 04/24/23 documented as of this encounter
--- OUTSIDE RECORDS SUMMARY | 2024-07-26 23:53 | XMS_ITS | Encounter Summary ---
Author Organization [facility] Address [address] [place] [address] Care Team Providers Care Shaper Operator Name Role Phone Shilo Soares MD Primary Care Provider [phone] Encounter Details Date Type Department Care Team (Latest Contact Info) Description 12/16/2023 11:57 AM CDT - 12/16/2023 11:59 PM CDT Hospital Encounter [facility] [address] [facility] [address] [place] [address] Aviva Humphries MD [address] [address] [place] [address] Discharge Disposition: Home or Self [...] bedtime. 02/26/2021 fluticasone propionate (FLONASE) 50 mcg/spray [place], Suspension nasal inhaler Administer 2 Sprays in each nostril daily. omega-3 fatty acids-fish oil 300-1,000 mg Capsule Take 2 Capsules by mouth daily. olaparib 150 mg tablet Take 2 Tablets (300 mg) by mouth 2 times daily. 120 Tablet 3 11/19/2023 02/15/2024 documented as of this encounter Miscellaneous Notes * Treatment Plan - Marilynn Olivares CNS - 12/16/2023 12:00 PM CDT .flush documented in this encounter Plan of Treatment Upcoming Encounters Date Type Department Care Team (Maria Fernanda Contact Info) Description 08/04/2024 1:00 PM BARREL MAKER Appointment Randy Proctor [facility] Infusion Center 2nd Mn [address] [place] [address] Aviva Humphries MD [address] [facility] [address] [place] [address] Infusion Chair 5, 2nd Floor Hall 08/25/2024 1:00 PM BARREL MAKER Office Visit [facility] Gynecologic Oncology [place] [address] [facility] [address] [place] [address] Edilia Pettit, CHELY [address] [facility] [address] [place] [address] 08/25/2024 1:30 PM BARREL MAKER Appointment Randy [facility] Infusion Center 2nd Fl [address] [place] [address] Aviva Humphries MD [address] [facility] [address] [place] [address] Infusion Chair 1, [address] [place] [address] 09/01/2024 10:45 AM BARREL MAKER Appointment [facility] Nuclear Medicine [address] [place] [address] [id number] Edilia Pettit, CHELY [address] [phone] documented as of this encounter Procedures Procedure Name Priority Date/Time Associated Diagnosis Comments EXTRA TUBE Routine 12/16/2023 12:23 PM CDT URINALYSIS WITH REFLEX CULTURE Routine 12/16/2023 12:23 PM CDT Malignant neoplasm of ovary, unspecified laterality CBC WITH DIFFERENTIAL Stat 12/16/2023 12:08 PM CDT Malignant neoplasm of ovary, unspecified laterality MAGNESIUM LEVEL Stat 12/16/2023 12:08 PM CDT Malignant neoplasm of ovary, unspecified laterality COMPREHENSIVE METABOLIC PANEL Stat 12/16/2023 12:08 PM CDT Malignant neoplasm of ovary, unspecified laterality CANCER ANTIGEN 125 Routine 12/16/2023 12 :07 PM CDT Malignant neoplasm of ovary, unspecified laterality documented in this encounter Results * EXTRA TUBE (12/16/2023 12:23 PM CDT) EXTRA TUBE RECEIVED Akipp[facility] patricia Bush Comment: An extra tube was received without a test specified. We will hold this specimen in our cold storage in the event additional testing is requested. Please contact your local client project coordinator for further assistance. SPECIMEN TYPE URINE CUP [facility] Comment: Test Performed at: [employer] [employer] [address] [place] ??[phone] Radha Perez 12/16/2023 12:2 3 PM CDT 12/16/2023 12:51 PM CDT Aviva Humphries MD CHEMISTRY ORDERABLES [facility] [phone] [employer] [address] [place] [address] * URINALYSIS WITH REFLEX CULTURE (12/16/2023 12:23 PM CDT) COLOR UA YELLOW YELLOW [facility] [place] CLARITY UA CLEAR CLEAR [facility] [place] SPECIFIC GRAVITY UA 1.004 1.001 - 1.035 [facility] [place] PH UA 6.0 5.0 - 8.0 [facility] [place] GLUCOSE UA NEGATIVE NEGATIVE [employer] [place] BILIRUBIN UA NEGATIVE NEGATIVE [employer] [place] KETONES UA NEGATIVE NEGATIVE [employer] [place] BLOOD UA NEGATIVE NEGATIVE [facility] [place] PROTEIN UA NEGATIVE NEGATIVE [employer] [place] NITRITE UA NEGATIVE NEGATIVE [employer] [place] LEUKOCYTE ESTERASE UA NEGATIVE NEGATIVE [facility] [place] WBC UA NONE SEEN < OR = 5 /HPF [facility] [facility] [place] RBC UA NONE SEEN < OR = 2 /HPF [facility] EPITHELIAL CELLS, URINE NONE SEEN < OR = 5 /HPF [facility] BACTERIA UA NONE SEEN NONE SEEN /HPF [facility] HYALINE CAST NONE SEEN NONE SEEN /LPF [facility] URINE NOTE [facility] Comment: This urine was analyzed for the presence of WBC, RBC, bacteria, casts, and other formed elements. Only those elements seen were reported. URINE CULTURE [facility] Comment: NO CULTURE INDICATED Test Performed at: [place] [address] [place], [place] ??[address] Radha Perez Urine URINE SPECIMEN OBTAINED BY CLEAN CATCH PROCEDURE / Unknown 12/16/2023 12:23 PM CDT 12/16/2023 12:51 PM CDT Aviva Humphries MD URINE ORDERABLES Performing Organization Address City/[facility]/ZIP Code Phone Number [facility] [phone] [place] [address] [place] [address] * MAGNESIUM LEVEL (12/16/2023 12:08 PM CDT) MAGNESIUM 2.0 1.6 - 2.4 mg/dL 12/16/2023 1:40 PM CDT [facility] LABORATORY [facility] Blood Collection / Unknown 12/16/2023 12:08 PM CDT 12/16/2023 12:41 PM CDT Aviva Humphries MD CHEMISTRY ORDERABLES [facility] [email or web address] [facility] CLIA# [id number] 5 [place], [place] [id number] * (ABNORMAL) COMPREHENSIVE METABOLIC PANEL (12/16/2023 12:08 PM CDT) SODIUM 142 136 - 145 mmol/L 12/16/2023 1:40 PM CDT [facility] POTASSIUM 3.5 3.5 - 5.0 mmol/L 12/16/2023 1:40 PM CDT [facility] LABORATORY SERVICES - [facility] CHLORIDE 103 98 - 107 mmol/L 12/16/2023 1:40 PM T [facility] LABORATORY SERVICES - [facility] CO2 25 22 - 29 mmol/L 12/16/2023 1:40 PM T [facility] - [facility] CALCIUM 9.6 8.6 - 10.2 mg/dL 12/16/2023 1:40 PM T [facility]ORATORY SERVICES - . [place] BUN 8 8 - 23 mg/dL 12/16/2023 1:40 PM [facility] LABORATORY SERVICES - . [facility] CREATININE 0.88 0.51 - 0.95 mg/dL 12/16/2023 1:40 PM [facility] LABORATORY SERVICES - . [facility] GLUCOSE 100(H) 74 - 99 mg/dL 12/16/2023 1:40 PM T [facility] LABORATORY SERVICES - . [facility] TOTAL PROTEIN 7.6 6.7 - 8.6 g/dL 12/16/2023 1:40 PM [facility] LABORATORY SERVICES - . [facility] ALBUMIN 4.2 3.5 - 5.2 g/dL 12/16/2023 1:40 PM [facility] LABORATORY SERVICES - . [place] BILIRUBIN TOTAL 0.5 0.2 - 1.1 mg/dL 12/16/2023 1:40 PM T [facility] LABORATORY SERVICES - . [facility] ALKALINE PHOSPHATASE 92 35 - 104 U/L 12/16/2023 1:40 PM [employer] LABORATORY SERVICES - . [facility] AST 19 <33 U/L 12/16/2023 1:40 PM [employer] LABORATORY SERVICES - . [facility] ALT 23 <34 U/L 12/16/2023 1:40 PM [facility] LABORATORY SERVICES - . [facility] GFR >60 >=60 mL/min/1.7 3 sq meter 12/16/2023 1:40 PM [employer] LABORATORY SERVICES - . [facility] Comment:eGFR calculated with 2020 CKD-EPI equation. Vegetarian diet, extremely high or low muscle mass, and may affect results. Cystatin C with Glomerular Filtration Rate is a suitable alternative for these patients. ANION GAP 14 8 - 16 mmol/L 12/16/2023 1:40 PM [facility] LABORATORY SERVICES - [facility] Blood Collection / Unknown 12/16/2023 12:08 PM CDT 12/16/2023 12:41 PM CDT [facility] LABORATORY SERVICES - [facility] - 12/16/2023 1:40 PM CDT Samples containing indocyanine green cause interferences on Total and/or Direct Bilirubin and must not be measured. Aviva Humphries MD CHEMISTRY ORDERABLES [facility] LABORATORY SERVICES [facility] CLIA# [id number] 5 [facility] [place] [address] * (ABNORMAL) CBC WITH DIFFERENTIAL (12/16/2023 12:08 PM CDT) [facility] WBC 6.0 4.0 - 9.8 K/uL 12/16/2023 12:27 PM T [facility] LABOR[facility]ORY [facility] RBC 3.28(L) 3.90 - 4.90 M/uL 12/16/2023 12:27 PM T [facility]ORY [facility] HEMOGLOBIN 11.3(L) 11.8 - 14.8 g/dL 12/16/2023 12:27 PM CDT [facility] LABORATORY SERVICES [facility] HEMATOCRIT 33.4(L) 35.5 - 44.0 % 12/16/2023 12:27 PM T [facility] LABORATORY SERVICES [facility] MCV 101.8(H) 82.0 - 99.0 fL 12/16/2023 12:27 PM T [facility] LABOR[facility]ORY [facility] MCH 34.5(H) 27.2 - 32.6 pg 12/16/2023 12:27 PM T [facility] LABOR[facility]ORY [facility] MCHC 33.8 31.5 - 35.5 g/dL 12/16/2023 12:27 PM CDT [facility]ORATORY [facility] RDW 17.4(H) 11.5 - 14.5 % 12/16/2023 12:27 PM [facility] RDW-STDEV 62.4(H) 37.1 - 48.7 fL 12/16/2023 12:27 PM T [facility] PLATELETS 248 140 - 350 K/uL 12/16/2023 12:27 PM CDT [facility] LABORATORY SERVICES - . [facility] MPV 9.5 9.3 - 12.4 fL 12/16/2023 12:27 PM CDT [facility] LABORATORY SERVICES - . [facility] NEUTROPHILS 62 % 12/16/2023 12:27 PM CDT [facility] LABORATORY SERVICES - . [facility] LYMPHOCYTES 30 % 12/16/2023 12:27 PM CDT [facility]ATORY SERVICES - [facility] MONOCYTES 7 % 12/16/2023 12:27 PM CDT [facility] EOSINOPHILS 1 % 12/16/2023 12:27 PM CDT [facility] BASOPHILS 1 % 12/16/2023 12:27 PM CDT [employer] LABORATORY SERVICES - . [facility] IMMATURE GRANULOCYTES 0 % 12/16/2023 12:27 PM CDT [employer] LABORATORY SERVICES - . [facility] NEUTROPHIL ABSOLUTE 3.70 1.90 - 7.00 K/uL 12/16/2023 12:27 PM CDT [employer] LABORATORY SERVICES - . [facility] LYMPHOCYTE ABSOLUTE 1.82 0.70 - 4.50 K/uL 12/16/2023 12:27 PM CDT [facility] LABORATORY SERVICES - . [facility] MONOCYTE ABSOLUTE 0.41 0.10 - 1.30 K/uL 12/16/2023 12:27 PM CDT [facility] LABORATORY SERVICES - . [facility] EOSINOPHIL ABSOLUTE 0.04 0.00 - 0.70 K/uL 12/16/2023 12:27 PM CDT [facility] LABORATORY SERVICES - . [facility] BASOPHILS ABSOLUTE 0.03 0.00 - 0.20 K/uL 12/16/2023 12:27 PM CDT [employer] LABORATORY SERVICES - . [facility] IMMATURE GRANULOCYTES ABSOLUTE 0.01 0.00 - 0.03 K/uL 12/16/2023 12:27 PM CDT [facility] LABORATORY SERVICES - . [facility] Blood Collection / Unknown 12/16/2023 12:08 PM CDT 12/16/2023 12:25 PM CDT Aviva Humphries MD HEMATOLOGY ORDERABLE S [facility] LABORATORY SERVICES - [facility] CLIA# [id number] [address] [place] [address] * CANCER ANTIGEN 125 (12/16/2023 12:07 PM CDT) CA 125 7 <35 U/mL [employer] Comment: This test was performed using the Siemens Chemiluminescent method. Values obtained from different assay methods cannot be used interchangeably. CA 125 levels, regardless of value, should not be interpreted as absolute evidence of the presence or absence of disease. Test Performed at: [employer] [address] [place] [address] ??[phone] Radha Perez MD Blood 12/16/2023 12:0 7 PM CDT 12/16/2023 12:16 PM CDT Aviva Humphries MD CHEMISTRY ORDERABLES [facility] [phone] [employer] [address] documented in this encounter Visit Diagnoses Diagnosis Malignant neoplasm of ovary, unspecified laterality documented in this encounter Administered Medications Inactive Administered Medications - up to 3 most recent administrations Medication Order MAR Action Action Date Dose Rate Site heparin, porcine (pf) 10 unit/mL IV syringe 50 Units 50 Units, IV, ONE TIME ONLY, 1 dose, On Thu12/16/23 at 1230, Routine Given 12/16/2023 12:17 PM CDT 50 Units sodium chloride flush injection 10 mL 10 mL, IV, ONE TIME ONLY, 1 dose, On Thu12/16/23 at 1230, Routine Given 12/16/2023 12:17 PM CDT 10 mL documented in this encounter Care Teams Shaper Operator Relationship Specialty Start Date End Date Shilo Soares MD [address] [place] [address] PCP - General Internal Medicine 04/24/23 documented as of this encounter
--- OUTSIDE RECORDS SUMMARY | 2024-07-26 23:53 | XMS_ITS | Encounter Summary ---
Author Organization [facility] Address [address] [place] [address] Care Team Providers Care Fruit Checker Name Role Phone Shilo Soares MD Primary Care Provider [phone] Encounter Details Date Type Department Care Team [...] Contact Info) Description 08/04/2024 1:00 PM SUPERVISOR SHAVING AND SPLITTING Appointment [facility] Center 2nd [place] [address] [place] [address] Aviva Humphries MD [address] [place] [address] Infusion Chair 5, 2nd Floor Hall 08/25/2024 1:00 PM SUPERVISOR SHAVING AND SPLITTING Office Visit [facility] Gynecologic Oncology Hall [address] [place] [address] Edilia Pettit, CHELY [address] [facility] [address] [place] [address] 08/25/2024 1:30 PM SUPERVISOR SHAVING AND SPLITTING Appointment [facility]fusion Center 2nd Fl [address] [place] [address] Aviva Humphries MD [address] [facility] [address] [place] [address] Infusion Chair 1, 2nd Floor [place] 09/01/2024 10:45 AM SUPERVISOR SHAVING AND SPLITTING Appointment [facility] Nuclear Medicine [address] [place] [address] [id number] Edilia Pettti, CHELY [address] [facility] [address] [place] [address] documented as of this encounter Visit Diagnoses Not on filedocumented in this encounter Care Teams Fruit Checker Relationship Specialty Start Date End Date Shilo Soares MD [address] [place] [address] PCP - General Internal Medicine 04/24/23 documented as of this encounter
--- OUTSIDE RECORDS SUMMARY | 2024-07-26 23:53 | XMS_ITS | Encounter Summary ---
Author Organization [facility] Address [address] [place] [address] Care Team Providers Care Maintenance Machine Repairer Name Role Phone Shilo Soares MD Primary Care Provider [phone] Encounter Details Date Type Department Care Team (Late Contact Info) Description 12/14/2023 External Device Data STL ABSTRACTION Provider, Abstract [...] (Late Contact Info) Description 08/04/2024 1:00 PM ENTERPRISE INTEGRATION ARCHITECT Appointment [facility] 2nd [place] [address] [place] [address] Aviva Humphries MD [address] [place] [address] Infusion Chair 5, 2nd Floor Hall 08/25/2024 1:00 PM ENTERPRISE INTEGRATION ARCHITECT Office Visit [facility] Gynecologic Oncology Hall [address] [place] [address] Edilia Pettit, CHELY [address] [place] [address] 08/25/2024 1:30 PM ENTERPRISE INTEGRATION ARCHITECT Appointment [facility] 2nd Fl [address] [place] [address] Aviva Humphries MD [address] [facility] [address] [place] [address] Infusion Chair 1, 2nd Floor [place] 09/01/2024 10:45 AM ENTERPRISE INTEGRATION ARCHITECT Appointment [facility] Nuclear Medicine [address] [place] [address] [id number] Edilia Pettit, CHELY [address] [facility] [address] [place] [address] documented as of this encounter Visit Diagnoses Not on filedocumented in this encounter Care Teams Maintenance Machine Repairer Relationship Specialty Start Date End Date Shilo Soares MD [address] [place] [address] PCP - General Internal Medicine 04/24/23 documented as of this encounter
--- OUTSIDE RECORDS SUMMARY | 2024-07-26 23:53 | XMS_ITS | Encounter Summary ---
Author Organization [facility] Address [address] [place] [address] Care Team Providers Care Pot Fluxer Name Role Phone Shilo Soares MD Primary Care Provider [phone] Reason for Visit * Reason Comments Chemotherapy Pre Chemo Encounter Details Date Type Department Care Team (Latest Contact Info) Description 12/16/2023 1:30 PM CDT Office Visit [facility] Gynecologic Oncology Hall [address] [place] [address] Edilia Pettit, CHELY [address] [place] [address] Malignant neoplasm of ovary, unspecified laterality (Primary Dx); Encounter for follow-up surveillance of ovarian cancer Social History Tobacco Use Types Packs/Day Years [...] Sign Reading Time Taken Comments Blood Pressure 123/79 12/16/2023 1:23 PM CDT Pulse 84 12/16/2023 1:23 PM CDT Temperature 37.1 ??C (98.7 ??F) 12/16/2023 1:23 PM CD T Respiratory Rate - - Oxygen Saturation 97% 12/16/2023 1:23 PM CDT Inhaled Oxygen Concentration - - Weight 49.4 kg (108 lb 12.8 oz) 12/16/2023 1:23 PM CDT Height 167.6 cm (5' 6 ) 12/16/2023 1:23 PM CDT Body Mass Index 17.56 12/16/2023 1:23 PM CDT documented in this encounter Progress Notes * Edilia Pettit, CHELY - 12/16/2023 1:30 PM CDT Images from the original note were not included. [facility] GYNECOLOGIC ONCOLOGY OFFICE VISIT 12/16/2023 Narda Mayen REFERRING PROVIDER: Dr. Barnard ref. provider found PRIMARY CARE PROVIDER: Shilo Harley MD RETURN PATIENT VISIT Cancer Staging Ovarian cancer Staging form: Ovary, Fallopian Tube, and Primary Peritoneal Carcinoma, AJCC 8th Edition - Clinical stage from 05/13/2023: FIGO Stage IVB - Signed by Aviva Humphries MD on 05/13/2023 Oncology History: 03/2023 presented to [facility] with abdominal distension; CT showed 11.6cm [...] gross resection; final pathology with clearcell carcinoma 1/25/24 resumption of post op chemotherapy; 10/15/23 completion of therapy Current Therapy: bevacizumab 15mg/m2 q21 days + olaparib 300mg BID Port: Yes, working well NGS: LIONELPILAR IHC: not applicable Genetics: 09/03/23 Narda was [...] ordered additional work up and referred to collar setter oncology. CT chest did not show metastatic [...] discharge) 09/23/23 104lbs 11/26/23 109lbs 12/16/23 108lbs November reports increased fatigue since starting olaparib. 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 She reports a decreased appetite but maintaining weight. Some nausea but relief w/ anti-emetics. 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 Reports some SOB on exertion but not new or increased. New 5 mm pulmonary nodule in the left upper lobe noted on 11/09/23 CT. Plan to follow with another CTCAP scheduled for February 09. Went to PCP, got started on Losartan. BP 123/79 today. Denies recent changes to urinary or bowel habits. Denies vomiting, new onset pain, or vaginal bleeding. Lab Results Component Value Date/Time CA125 7 12/02/2023 07:37 AM CA125 7 [...] received in five containers each labeled November Tiarra . Received in the first container [...] to show a complete pinpoint, stellate lumen. Transfer Table Operator sections are submitted in cassettes labeled A1-anterior cervix; A2-anterior polyp, submitted entirely; A3-anterior endomyometrium; A4-posterior cervix; A5-posterior endomyometrium; A6-left ovary; A7-left fallopian tube, fimbria submitted entirely; A8-presumed right fallopian tube, fimbria submitted entirely; A9 through O48-egkroo mass (2 sections in each cassette) with mucinous component in 9-10. Received in the second container additionally labeled omentum are 2 irregular fragments of calhoun-yellow to red-brown lobulated omentum measuring 35.8 x 6 x 2 cm in aggregate. Sections show a calhoun-yellow, fatty cut surface containing multiple pink-cancino firm nodules measuring up to 1.8 cm in greatest dimension. Transfer Table Operator sections are submitted in cassettes labeled [...] SMB MICROSCOPIC DESCRIPTION The slides are labeled [id number] and Tiarranovember. Sections of the salpingo-oophorectomy (A) reveal a [...] heterogeneity, focal positivity for ER, and rare NH positivity. Negative staining is observed for WT1 and CK20. Although weak patchy positivity for AMACR and Napsin A,and focal positivity for ER and rare NH positivity are unusual for clear cell carcinoma, [...] Component FINAL DIAGNOSIS [place] [address] (OSC [id number]; 04/29/2023 and [id number]; 05/06/2023) [id number] Ascites fluid, cytologic examination: - CK7 positive adenocarcinoma. 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 See comment. at 1237 MICROSCOPIC DESCRIPTION Received are slides labeled [id number] and [id number] and NovemberKarely Tiarra. Microscopic examination of the [...] origin. Sections of the lymph node biopsy ([id number]) show cores of lymph node involved by [...] CYSTOURETHROSCOPY performed by Aviva Humphries MD at [facility] OR [facility] HX BLADDER REPAIR N/A 08/06/2023 BLADDER REPAIR performed by Aviva Humphries MD at [facility] OR [facility] HX BUNIONECTOMY Bilateral 2009 HX SECTION 1982,1985,1994 HX PORTACATH PLACEMENT Right 2022 HX URETEROLYSIS Bilateral 08/06/2023 URETEROLYSIS performed by Aviva Humphries MD at [facility] OR [facility] NH BX/EXC LYMPH NODE OPEN SUPERFICIAL Right 08/06/2023 INGUINAL OR FEMORAL LYMPH NODE BIOPSY/EXCISION performed by Aviva Humphries MD at [facility] OR [facility] NH LAPAROSCOPY W/RMVL ADNEXAL STRUCTURES N/A 08/06/2023 SALPINGO-OOPHORECTOMY LAPAROSCOPIC performed by Aviva Humphries MD at [facility] OR [facility] NH OMNTC EPIPLOECTOMY RESCJ OMENTUM SPX N/A 08/06/2023 OMENTECTOMY performed by Aviva Humphries MD at [facility] OR [facility] NH TOTAL ABDOMINAL HYSTERECT W/WO RMVL TUBE OVARY N/A 08/06/2023 HYSTERECTOMY ABDOMINAL TOTAL performed by Aviva Humphries MD at [facility] OR [facility] NH UNLISTED PROCEDURE DIAPHRAGM N/A 08/06/2023 DIAPHRAGM BIOPSY performed by Aviva Humphries MD at [facility] OR [facility] Allergies Allergen Reactions Penicillins Rash Ciprofloxacin Rash Current Outpatient Medications: lidocaine-prilocaine (EMLA) 2.5-2.5 % Cream, APPLY A [...] , Rfl: fluticasone propionate (FLONASE) 50 mcg/spray Harper, Suspension nasal inhaler, Administer 2 Sprays in [...] No obstetric history on file. 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 Down to half pack per day. 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 LMP (LMP Unknown) ECOG PS: 0 HEAD: Normocephalic, atraumatic. EYES: [...] Malignant neoplasm of ovary, unspecified laterality 2. Encounter for follow-up surveillance of ovarian cancer Narda is a 62yo with Stage 4b [...] Maintenance therapy initiated: 11/05/23 bevacizumab, 11/19/23 olaparib NGS shows HRD+. She is currently receiving maintenance therapy in the form of bevacizumab 15mg/m2 q21 days (for up to 15 months) + olaparib 300mg BID (for up to 24months). Need 1 more weekly CBC, then ok to extend to monthly. Discussed w/ pt. Will need to follow BP closely -- has been uptrending. Saw PCP about 3 weeks ago and started on Losartan. BP normal today. Her post-treatment CT scan showed good response. A small nodule in the upper lung was noted - will continue to f/u. CT CAP scheduled for 02/10/24. Return to clinic: f/u w/ Edilia for cycle #11 and w/ cycle #12 February w/ Dr. Humphries Thank you for involving [facility] Gynecologic Oncology in the care of this patient. Edilia Pettit NP Attending Attestation I have not seen or examined the patient. I have reviewed the documentation by Edilia Wilver, LANDSCAPE TECHNICIAN and I agree with the plan. Can consider dose reduction of olaparib if fatigue/nausea is obstructive to her daily life. Aviva Humphries MD [facility] Gynecologic Oncology Aviva Humphries MD [facility] Gynecologic Oncology documented in this encounter Plan of Treatment Upcoming Encounters Date Type Department Care Team (Late st Contact Info) Description 08/04/2024 1:00 PM CONFERENCE CENTER MANAGER Appointment Randy Hall [facility] Infusion Center 2nd Fl [address] [place] [address] Aviva Humphries MD [address] [place] [address] Infusion Chair 5, 2nd Floor Hall 08/25/2024 1:00 PM CONFERENCE CENTER MANAGER Office Visit [facility] Gynecologic Oncology Hall [address] [place] [address] Edilia Pettit NP [address] [place] [address] 08/25/2024 1:30 PM CONFERENCE CENTER MANAGER Appointment Randy Proctor Hall [facility] Infusion Center 2nd Fl [address] [place] [address] Aviva Humphries MD [address] [address] [place] [address] Infusion Chair 1, 2nd Floor Hall 09/01/2024 10:45 AM CONFERENCE CENTER MANAGER Appointment [facility] [address] [place] [address] [phone] Edilia Pettit NP [address] [place] [address] documented as of this encounter Visit Diagnoses Diagnosis Malignant neoplasm of ovary, unspecified laterality- Primary Encounter for follow-up surveillance of ovarian cancer Unspecified follow-up examination documented in this encounter Care Teams Pot Fluxer Relationship Specialty Start Date End Date Shilo Soares MD [address] [place] [address] PCP - General Internal Medicine 04/24/23 documented as of this encounter
--- OUTSIDE RECORDS SUMMARY | 2024-07-26 23:53 | XMS_ITS | Encounter Summary ---
Author Organization [facility] Address [address] [place] [address] Care Team Providers Care Pile Driving Setter Name Role Phone Shilo Soares MD Primary Care Provider [phone] Encounter Details Date Type Department Care Team ([facility] Contact Info) Description 12/24/2023 Orders Only [facility] Gynecologic Oncology Hall [address] [place] [address] Aviva Humphries MD [address] [place] [address] Social History Tobacco Use Types [...] Contact Info) Description 08/04/2024 1:00 PM BRICK MAKER Appointment Randy Hall [facility] Center 2nd Fl [address] [place] [address] Aviva Humphries MD [address] [place] [address] Infusion Chair 5, 2nd Floor Hall 08/25/2024 1:00 PM BRICK MAKER Office Visit [facility] Gynecologic Oncology Hall [address] [place] [address] Edilia Pettit NP [address] [place] [address] 08/25/2024 1:30 PM BRICK MAKER Appointment Randy Hall [facility] Infusion Center [facility] [address] [place] [address] Aviva Humphries MD [address] [place] [address] Infusion Chair 1, 2nd [facility] 09/01/2024 10:45 AM BRICK MAKER Appointment Randy Proctor [facility] Nuclear Medicine [address] [place] [address] [phone] Edilia Pettit, CHELY [address] [address] documented as of this encounter Procedures Procedure Name Priority Date/Time Associated Diagnosis Comments CBC WITH DIFFERENTIAL Routine 12/23/2023 3:31 PM CDT documented in this encounter Results * (ABNORMAL) CBC WITH DIFFERENTIAL (12/23/2023 3:31 PM CDT) WBC 5.4 3.8 - 10.8 Thousand/ uL [facility] RBC 3.09(L) 3.80 - 5.10 Million/u L [facility] HEMOGLOBIN 10.8(L) 11.7 - 15.5 g/dL [facility] HEMATOCRIT 32.6(L) 35.0 - 45.0 % [facility] MCV 105.5(H) 80.0 - 100.0 fL [facility] MCH 35.0(H) 27.0 - 33.0 pg [facility] MCHC 33.1 32.0 - 36.0 g/dL [facility] RDW 17.2(H) 11.0 - 15.0 % [facility] PLATELETS 219 140 - 400 Thousand/ uL [facility] MPV 10.3 7.5 - 12.5 fL [facility] NEUTROPHIL ABSOLUTE 2,808 1,500 - 7,800 cells/uL [facility] LYMPHOCYTE ABSOLUTE 2,209 850 - 3,900 cells/uL [facility] MONOCYTE ABSOLUTE 292 200 - 950 cells/uL [facility] EOSINOPHIL ABSOLUTE 59 15 - 500 cells/uL [facility] BASOPHILS ABSOLUTE 32 0 - 200 cells/uL [facility] NEUTROPHIL 52 % [facility] LYMPHOCYTES 40.9 % [facility] MONOCYTE 5.4 % [facility] EOSINOPHILS 1.1 % [facility] BASOPHILS 0.6 % [facility] Comment: FASTING:NO FASTING: NO Test Performed at: [facility] [address] [place], [place] ??[address] Swati-Sierra Malini Chris Blood 12/23/2023 3:31 PM CDT 12/23/2023 6:17 PM CDT Aviva Humphries MD HEMATOLOGY ORDERABLE [facility] [phone] [facility] [address] [place] [address] documented in this encounter Visit Diagnoses Not on filedocumented in this encounter Care Teams Pile Driving Setter Relationship Specialty Start Date End Date Shilo Soares MD [address] [place] [address] PCP - General Internal Medicine 04/24/23 documented as of this encounter
--- OUTSIDE RECORDS SUMMARY | 2024-07-26 23:53 | XMS_ITS | Encounter Summary ---
Author Organization [facility] Address [address] [place] [address] Care Team Providers Care Epic Willow Specialist Name Role Phone Shilo Soares MD Primary Care Provider [phone] Encounter Details Date Type Department Care Team [...] (Late Contact Info) Description 08/04/2024 1:00 PM ASW SPECIALIST Appointment [facility] 2nd K[facility] [address] [place] [address] Aviva Humphries MD [address] [place] [address] Infusion Chair 5, 2nd Floor Hall 08/25/2024 1:00 PM ASW SPECIALIST Office Visit [facility] Gynecologic Oncology Hall [address] [place] [address] Edilia Pettit, CHELY [address] [place] [address] 08/25/2024 1:30 PM ASW SPECIALIST Appointment [facility] Center 2nd Fl [address] [place] [address] Aviva Humphries MD [address] [place] [address] Infusion Chair 1, 2nd Floor [place] 09/01/2024 10:45 AM ASW SPECIALIST Appointment Randy Hall Cancer [facility] Nuclear Medicine [address] [place] [address] [id number] Edilia Pettit, CHELY [address] [facility] [address] [place] [address] documented as of this encounter Visit Diagnoses Not on filedocumented in this encounter Care Teams Epic Willow Specialist Relationship Specialty Start Date End Date Shilo Soares MD [address] [place] [address] PCP - General Internal Medicine 04/24/23 documented as of this encounter
--- OUTSIDE RECORDS SUMMARY | 2024-07-26 23:53 | XMS_ITS | Encounter Summary ---
Author Organization [facility] Address [address] [place] [address] Care Team Providers Care Beverage Server Name Role Phone Shilo Soares MD Primary Care Provider [phone] Encounter Details Date Type Department Care Team (Late Contact Info) Description 12/16/2023 Orders Only [facility] Gynecologic Oncology [place] [address] [place] [address] Stevie Chavarria RN Malignant neoplasm of ovary, unspecified laterality (Primary [...] (Late Contact Info) Description 08/04/2024 1:00 PM SYSTEMS ACCOUNTANT Appointment Randy Hall [facility] Center 2nd Fl [address] [place] [address] Aviva Humphries MD [address] [place] [address] Infusion Chair 5, 2nd Floor Hall 08/25/2024 1:00 PM SYSTEMS ACCOUNTANT Office Visit [facility] Gynecologic Oncology Hall [address] [address] [place] [address] Edilia Pettit, CHELY [address] [facility] [address] [place] [address] 08/25/2024 1:30 PM SYSTEMS ACCOUNTANT Appointment [facility] Infusion Center [facility] [address] [place] [address] Aviva Humphries MD [address] [facility] [address] [facility] [place] [address] Infusion Chair 1, 2nd Floor Hall 09/01/2024 10:45 AM SYSTEMS ACCOUNTANT Appointment [facility] Nuclear Medicine [address] [place] [address] [phone] Edilia Pettit, CHELY [address] [facility] [address] [facility] [place] [address] documented as of this encounter Results * URINALYSIS WITH REFLEX CULTURE (12/16/2023 12:23 PM CDT) COLOR UA YELLOW YELLOW [facility] CLARITY UA CLEAR CLEAR [facility] SPECIFIC GRAVITY UA 1.004 1.001 - 1.035 [facility] PH UA 6.0 5.0 - 8.0 [facility] GLUCOSE UA NEGATIVE NEGATIVE [facility] BILIRUBIN UA NEGATIVE NEGATIVE [facility] KETONES UA NEGATIVE NEGATIVE [facility] BLOOD UA NEGATIVE NEGATIVE [facility] PROTEIN UA NEGATIVE NEGATIVE [facility] NITRITE UA NEGATIVE NEGATIVE [facility] LEUKOCYTE ESTERASE UA NEGATIVE NEGATIVE [facility] WBC UA NONE SEEN < OR = 5 /HPF [facility] RBC UA NONE SEEN < OR = 2 /HPF [facility] EPITHELIAL CELLS, URINE NONE SEEN < OR = 5 /HPF [facility] BACTERIA UA NONE SEEN NONE SEEN /HPF [facility] HYALINE CAST NONE SEEN NONE SEEN /LPF [facility] URINE NOTE [facility] Comment: This urine was analyzed for the presence of WBC, RBC, bacteria, casts, and other formed elements. Only those elements seen were reported. URINE CULTURE [facility] Comment: NO CULTURE INDICATED Test Performed at: [place] [address] [place] ??[phone] SwatiJeanine Nayak Chris Urine URINE SPECIMEN OBTAINED BY CLEAN CATCH PROCEDURE / Unknown 12/16/2023 12:23 PM CDT 12/16/2023 12:51 PM CDT Aviva Humphries MD URINE ORDERABLES [facility] [phone] [place] [address] [place] [address] documented in this encounter Visit Diagnoses Diagnosis Malignant neoplasm of ovary, unspecified laterality- Primary documented in this encounter Care Teams Beverage Server Relationship Specialty Start Date End Date Shilo Soares MD [address] [place] [address] PCP - General Internal Medicine 04/24/23 documented as of this encounter
--- OUTSIDE RECORDS SUMMARY | 2024-07-26 23:53 | XMS_ITS | Encounter Summary ---
Author Organization [employer] Address [address] [place] [address] Care Team Providers Care Automatic Glove Turner And Former Name Role Phone Sihlo Soares MD Primary Care Provider [phone] Reason for Visit * Tx/Med Therapy Plan Auth (Routine) - Authorized Specialty Diagnoses / Procedures Referred By Alison gomez Referred To Contact Diagnoses Malignant neoplasm of ovary, unspecified laterality Encounter for antineoplastic chemotherapy Nausea Procedures WI PACLITAXEL INJECTION WI CARBOPLATIN INJECTION WI INJ MVASI 10 MG WI FOSAPREPITANT INJECTION WI PALONOSETRON HCL WI DEXAMETHASONE SODIUM PHOS WI METHYLPREDNISOLONE INJECTION WI DIPHENHYDRAMINE HCL INJECTIO WI INJECTION, FAMOTIDINE, 20 MG TAXOL, CARBO, MVASI, EMEND, ALOXI, DECADRON, SOLU MEDROL, BENADRYL, PEPCID Aviva Humphries MD [address] [place] [address] [facility] 2nd Floor [place] [address] [place] [address] Referral ID Status Reason Start Date Expiration Date V isits Requested Visits Authorized [id number] Authorized 05/20/2023 05/26/2025 99 99 Encounter Details Date Type Department Care Team (Latest Contact Info) Description 12/17/2023 12:29 PM CDT - 12/17/2023 11:59 PM CDT Hospital Encounter [facility] 2nd Fl [address] [place] [address] Aviva Humphries MD [address] [place] [address] Infusion Chair 6, 2nd Floor [...] Sign Reading Time Taken Comments Blood Pressure 141/76 12/17/2023 12:47 PM CDT Pulse 95 12/17/2023 12:47 PM CDT Temperature - - Respiratory Rate 16 12/17/2023 12:47 PM CDT Oxygen Saturation - - Inhaled [...] bedtime. 02/26/2021 fluticasone propionate (FLONASE) 50 mcg/spray Bryant, Suspension nasal inhaler Administer 2 Sprays in each nostril daily. omega-3 fatty acids-fish oil 300-1,000 mg Capsule Take 2 Capsules by mouth daily. olaparib 150 mg tablet Take 2 Tablets (300 mg) by mouth 2 times daily. 120 Tablet 3 11/19/2023 02/15/2024 documented as of this encounter Progress Notes * Rebekah Longo RN - 12/17/2023 1:00 PM CDT Pt admitted to infusion [...] Pt verbalized understanding. Discharged home. Next appt 01/07/24 documented in this encounter Plan of Treatment Upcoming Encounters Date Type Department Care Team (Late st Contact Info) Description 08/04/2024 1:00 PM WET ROLLER Appointment [facility] 2nd Fl [address] [place] [address] Aviva Humphries MD [address] [place] [address] Infusion Chair 5, 2nd Floor [place] 08/25/2024 1:00 PM WET ROLLER Office Visit [facility] Gynecologic Oncology Hall [address] [facility] [address] [place] [address] Edilia Pettit, CHELY [address] [facility] [address] [place] [address] 08/25/2024 1:30 PM WET ROLLER Appointment [facility] [address] [place] [address] Aviva Humphries MD [address] [place] [address] Infusion Chair 1, 2nd Floor Hall 09/01/2024 10:45 AM WET ROLLER Appointment [facility] Nuclear Medicine [address] [place] [address] [id number] Edilia Pettit, STOCKROOM COORDINATOR [id number] [place] [address] documented as of this encounter Results * MAGNESIUM LEVEL (12/16/2023 12:08 PM CDT) MAGNESIUM 2.0 1.6 - 2.4 mg/dL 12/16/2023 1:40 PM CDT [facility] Blood Collection / Unknown 12/16/2023 12:08 PM CDT 12/16/2023 12:41 PM CDT Aviva Humphries MD CHEMISTRY ORDERABLES [facility] CLIA# [id number] [address] [facility] [place] [address] * (ABNORMAL) COMPREHENSIVE METABOLIC PANEL (12/16/2023 12:08 PM CDT) [facility] Signature SODIUM 142 136 - 145 mmol/L 12/16/2023 1:40 PM CDT [facility] POTASSIUM 3.5 3.5 - 5.0 mmol/L 12/16/2023 1:40 PM CDT [facility] CHLORIDE 103 98 - 107 mmol/L 12/16/2023 1:40 PM CDT [facility] CO2 25 22 - 29 mmol/L 12/16/2023 1:40 PM CDT [facility] CALCIUM 9.6 8.6 - 10.2 mg/dL 12/16/2023 1:40 PM CDT [facility] BUN 8 8 - 23 mg/dL 12/16/2023 1:40 PM CDT [facility] CREATININE 0.88 0.51 - 0.95 mg/dL 12/16/2023 1:40 PM CDT [facility] GLUCOSE 100(H) 74 - 99 mg/dL 12/16/2023 1:40 PM CDT [facility] TOTAL PROTEIN 7.6 6.7 - 8.6 g/dL 12/16/2023 1:40 PM CDT [facility] ALBUMIN 4.2 3.5 - 5.2 g/dL 12/16/2023 1:40 PM CDT [facility] BILIRUBIN TOTAL 0.5 0.2 - 1.1 mg/dL 12/16/2023 1:40 PM CDT [facility] ALKALINE PHOSPHATASE 92 35 - 104 U/L 12/16/2023 1:40 PM CDT [facility] AST 19 <33 U/L 12/16/2023 1:40 PM CDT [facility] [facility] ALT 23 <34 U/L 12/16/2023 1:40 PM CDT [facility] GFR >60 >=60 mL/min/1.7 3 sq meter 12/16/2023 1:40 PM CDT [facility] [facility] Comment:eGFR calculated with 2020 CKD-EPI equation. Vegetarian diet, extremely high or low muscle mass, and may affect results. Cystatin C with Glomerular Filtration Rate is a suitable alternative for these patients. ANION GAP 14 8 - 16 mmol/L 12/16/2023 1:40 PM T [facility] Blood Collection / Unknown 12/16/2023 12:08 PM CDT 12/16/2023 12:41 PM CDT [facility] - 12/16/2023 1:40 PM CDT Samples containing indocyanine green cause interferences on Total and/or Direct Bilirubin and must not be measured. Aviva Humphries MD CHEMISTRY ORDERABLES [facility] CLIA# [id number] [address] [facility] [place] [address] * (ABNORMAL) CBC WITH DIFFERENTIAL (12/16/2023 12:08 PM CDT) [facility] WBC 6.0 4.0 - 9.8 K/uL 12/16/2023 12:27 PM [facility] RBC 3.28(L) 3.90 - 4.90 M/uL 12/16/2023 12:27 PM T [facility] HEMOGLOBIN 11.3(L) 11.8 - 14.8 g/dL 12/16/2023 12:27 PM [facility] HEMATOCRIT 33.4(L) 35.5 - 44.0 % 12/16/2023 12:27 PM [facility] MCV 101.8(H) 82.0 - 99.0 fL 12/16/2023 12:27 PM [facility] MCH 34.5(H) 27.2 - 32.6 pg 12/16/2023 12:27 PM [facility] MCHC 33.8 31.5 - 35.5 g/dL 12/16/2023 12:27 PM [facility] RDW 17.4(H) 11.5 - 14.5 % 12/16/2023 12:27 PM CDT [facility] - . [facility] RDW-STDEV 62.4(H) 37.1 - 48.7 fL 12/16/2023 12:27 PM CDT [facility] - . [facility] PLATELETS 248 140 - 350 K/uL 12/16/2023 12:27 PM CDT [facility] MPV 9.5 9.3 - 12.4 fL 12/16/2023 12:27 PM CDT [facility] NEUTROPHILS 62 % 12/16/2023 12:27 PM CDT [facility] LYMPHOCYTES 30 % 12/16/2023 12:27 PM CDT [facility] MONOCYTES 7 % 12/16/2023 12:27 PM CDT [facility] EOSINOPHILS 1 % 12/16/2023 12:27 PM CDT [facility] BASOPHILS 1 % 12/16/2023 12:27 PM CDT [facility] IMMATURE GRANULOCYTES 0 % 12/16/2023 12:27 PM CDT [facility] [place] NEUTROPHIL ABSOLUTE 3.70 1.90 - 7.00 K/uL 12/16/2023 12:27 PM CDT [facility] - . [facility] LYMPHOCYTE ABSOLUTE 1.82 0.70 - 4.50 K/uL 12/16/2023 12:27 PM CDT [facility] - . [facility] MONOCYTE ABSOLUTE 0.41 0.10 - 1.30 K/uL 12/16/2023 12:27 PM CDT [facility] [place] EOSINOPHIL ABSOLUTE 0.04 0.00 - 0.70 K/uL 12/16/2023 12:27 PM CDT [facility] BASOPHILS ABSOLUTE 0.03 0.00 - 0.20 K/uL 12/16/2023 12:27 PM CDT [facility] - . [facility] IMMATURE GRANULOCYTES ABSOLUTE 0.01 0.00 - 0.03 K/uL 12/16/2023 12:27 PM [employer] [facility] [place] Blood Collection / Unknown 12/16/2023 12:08 PM CDT 12/16/2023 12:25 PM CDT Aviva Humphries MD HEMATOLOGY ORDERABLE S [facility] SERVICES [facility]# [id number] [place] [place] [place] [address] * CANCER ANTIGEN 125 (12/16/2023 12:07 PM CDT) CA 125 7 <35 U/mL [facility] Comment: This test was performed using the Siemens Chemiluminescent method. Values obtained from different assay methods cannot be used interchangeably. CA 125 levels, regardless of value, should not be interpreted as absolute evidence of the presence or absence of disease. Test Performed at: [facility] [address] [place] [address] ??[id number] Radha Perez MD Blood 12/16/2023 12:0 7 PM CDT 12/16/2023 12:16 PM CDT Aviva Humphries MD CHEMISTRY ORDERABLES Performing Organization Address [facility] Co de Phone Number [facility] [phone] [facility] [address] documented in this encounter Visit Diagnoses Diagnosis [...] IV, ONE TIME ONLY, 1 dose, On Thu12/17/23 at 1245, Routine Rate Verify 12/17/2023 1:03 PM CDT 291.8 m L/hr New Bag 12/17/2023 1:03 PM CDT 773 mg 291.8 mL/hr sodium chloride 0.9% infusion IV, at 30-999 mL/hr, CONTINUOUS, Starting on Peace 12/17/23 at 1245, Until 12/18/23 at 0311, Routine New Bag 12/17/2023 12:52 PM CDT 30 mL/hr 30 mL/hr documented in this encounter Care Teams Automatic Glove Turner And Former Relationship Specialty Start Date End Date Shilo Soares MD [address] [place] [address] PCP - General Internal Medicine 04/24/23 documented as of this encounter
--- OUTSIDE RECORDS SUMMARY | 2024-07-26 23:53 | XMS_ITS | Encounter Summary ---
Author Organization [facility] Address [address] [place] [address] Care Team Providers Care Financial Health Counselor Name Role Phone Shilo Soares MD Primary Care Provider [phone] Encounter Details Date Type Department Care Team [...] Contact Info) Description 08/04/2024 1:00 PM HEAD SETTER Appointment [facility] 2nd Nd [address] [place] [address] Aviva Humphries MD [address] [place] [address] Infusion Chair 5, 2nd Floor Hall 08/25/2024 1:00 PM HEAD SETTER Office Visit [facility] Gynecologic Oncology Hall [address] [place] [address] Edilia Pettit, CHELY [address] [place] [address] 08/25/2024 1:30 PM HEAD SETTER Appointment [facility] 2nd Fl [address] [place] [address] Aviva Humphries MD [address] [place] [address] Infusion Chair 1, 2nd Floor [place] 09/01/2024 10:45 AM HEAD SETTER Appointment [facility] Nuclear Medicine [address] [place] [address] [id number] Edilia Pettit, CHELY [address] [facility] [address] [place] [address] documented as of this encounter Visit Diagnoses Not on filedocumented in this encounter Care Teams Financial Health Counselor Relationship Specialty Start Date End Date Shilo Soares MD [address] [place] [address] PCP - General Internal Medicine 04/24/23 documented as of this encounter
--- OUTSIDE RECORDS SUMMARY | 2024-07-26 23:53 | XMS_ITS | Encounter Summary ---
Author Organization [facility] Address [address] [place] [address] Care Team Providers Care Tank Wagon Operator Name Role Phone Shilo Soares MD Primary Care Provider [phone] Encounter Details Date Type Department Care Team [...] Contact Info) Description 08/04/2024 1:00 PM SURGICAL APPLIANCES SALESPERSON Appointment [facility] 2nd Or [address] [place] [address] Aviva Humphries MD [address] [place] [address] Infusion Chair 5, 2nd Floor Hall 08/25/2024 1:00 PM SURGICAL APPLIANCES SALESPERSON Office Visit [facility] Gynecologic Oncology Hall [address] [place] [address] Edilia Pettit, CHELY [address] [place] [address] 08/25/2024 1:30 PM SURGICAL APPLIANCES SALESPERSON Appointment [facility] 2nd Fl [address] [place] [address] Aviva Humphries MD [address] [place] [address] Infusion Chair 1, 2nd Floor [place] 09/01/2024 10:45 AM SURGICAL APPLIANCES SALESPERSON Appointment [facility] Nuclear Medicine [address] [place] [address] [phone] Edilia Pettit, CHELY [address] [facility] [address] [place] [address] documented as of this encounter Visit Diagnoses Not on filedocumented in this encounter Care Teams Tank Wagon Operator Relationship Specialty Start Date End Date Shilo Soares MD [address] [place] [address] PCP - General Internal Medicine 04/24/23 documented as of this encounter
--- OUTSIDE RECORDS SUMMARY | 2024-07-26 23:53 | XMS_ITS | Encounter Summary ---
Author Organization [facility] Address [address] [place] [address] Care Team Providers Care Eastern Philosophy Professor Name Role Phone Shilo Soares MD Primary Care Provider [phone] Encounter Details Date Type Department Care Team [...] (Late Contact Info) Description 08/04/2024 1:00 PM WAGON DRIVER SALESPERSON Appointment [facility] 2nd Sc [address] [place] [address] Aviva Humphries MD [address] [place] [address] Infusion Chair 5, 2nd Floor Hall 08/25/2024 1:00 PM WAGON DRIVER SALESPERSON Office Visit [facility] Gynecologic Oncology Hall [address] [place] [address] Edilia Pettit, CHELY [address] [facility] [facility] [facility] [address] [place] [address] 08/25/2024 1:30 PM WAGON DRIVER SALESPERSON Appointment [facility] 2nd Fl [address] [place] [address] Aviva Humphries MD [address] [place] [address] Infusion Chair 1, 2nd Floor [place] 09/01/2024 10:45 AM WAGON DRIVER SALESPERSON Appointment [facility] Nuclear Medicine [address] [place] [address] [id number] Edilia Pettit, CHELY [address] [facility] [address] [place] [address] documented as of this encounter Visit Diagnoses Not on filedocumented in this encounter Care Teams Eastern Philosophy Professor Relationship Specialty Start Date End Date Shilo Soares MD [address] [place] [address] PCP - General Internal Medicine 04/24/23 documented as of this encounter
--- OUTSIDE RECORDS SUMMARY | 2024-07-26 23:53 | XMS_ITS | Encounter Summary ---
Author Organization [facility] Address [address] [place] [address] Care Team Providers Care Iuss Acoustic Analyst Name Role Phone Shilo Soares MD Primary Care Provider [phone] Encounter Details Date Type Department Care Team [...] (Late Contact Info) Description 08/04/2024 1:00 PM MILL SET UP Appointment [facility] 2nd Dc [address] [place] [address] Aviva Humphries MD [address] [place] [address] Infusion Chair 5, 2nd Floor Hall 08/25/2024 1:00 PM MILL SET UP Office Visit [facility] Gynecologic Oncology Hall [address] [place] [address] Edilia Pettit, CHELY [address] [place] [address] 08/25/2024 1:30 PM MILL SET UP Appointment [facility] 2nd Fl [address] [place] [address] Aviva Humphries MD [address] [facility] [address] [place] [address] Infusion Chair 1, 2nd Floor [place] 09/01/2024 10:45 AM MILL SET UP Appointment [facility] Nuclear Medicine [address] [place] [address] [id number] Edilia Pettit, CHELY [address] [facility] [address] [place] [address] documented as of this encounter Visit Diagnoses Not on filedocumented in this encounter Care Teams Iuss Acoustic Analyst Relationship Specialty Start Date End Date Shilo Soares MD [address] [place] [address] PCP - General Internal Medicine 04/24/23 documented as of this encounter
--- OUTSIDE RECORDS SUMMARY | 2024-07-26 23:53 | XMS_ITS | Encounter Summary ---
Author Organization [facility] Address [address] [place] [address] Care Team Providers Care Electrical Project Engineer Name Role Phone Shilo Soares MD Primary Care Provider [phone] Encounter Details Date Type Department Care Team [...] Info) Description 08/04/2024 1:00 PM LOSS PREVENTION AND SAFETY MANAGER Appointment [facility] 2nd Wi [address] [place] [address] Aviva Humphries MD [address] [place] [address] Infusion Chair 5, 2nd Floor Hall 08/25/2024 1:00 PM LOSS PREVENTION AND SAFETY MANAGER Office Visit [facility] Gynecologic Oncology Hall [address] [place] [address] Edilia Pettit, CHELY [address] [address] [place] [address] 08/25/2024 1:30 PM LOSS PREVENTION AND SAFETY MANAGER Appointment [facility] 2nd Fl [address] [place] [address] Aviva Humphries MD [address] [facility] [address] [facility] [address] [place] [address] Infusion Chair 1, 2nd Floor [place] 09/01/2024 10:45 AM LOSS PREVENTION AND SAFETY MANAGER Appointment [facility] Nuclear Medicine [address] [place] [address] [id number] Edilia Pettit, CHELY [address] [facility] [address] [place] [address] documented as of this encounter Visit Diagnoses Not on filedocumented in this encounter Care Teams Electrical Project Engineer Relationship Specialty Start Date End Date Shilo Soares MD [address] [place] [address] PCP - General Internal Medicine 04/24/23 documented as of this encounter
--- OUTSIDE RECORDS SUMMARY | 2024-07-26 23:53 | XMS_ITS | Encounter Summary ---
Author Organization [facility] Address [address] [place] [address] Care Team Providers Care Dispatcher Relay Name Role Phone Shilo Soares MD Primary Care Provider [phone] Encounter Details Date Type Department Care Team [...] Contact Info) Description 08/04/2024 1:00 PM ENGINEERING OPERATIONS LEADER Appointment [facility] 2nd Va [address] [place] [address] Aviva Humphries MD [address] [place] [address] Infusion Chair 5, 2nd Floor Hall 08/25/2024 1:00 PM ENGINEERING OPERATIONS LEADER Office Visit [facility] Gynecologic Oncology Hall [address] [place] [address] Edilia Pettit, CHELY [address] [facility] [address] [place] [address] 08/25/2024 1:30 PM ENGINEERING OPERATIONS LEADER Appointment [facility] 2nd Fl [address] [place] [address] Aviva Humphries MD [address] [facility] [place] [address] Infusion Chair 1, 2nd Floor [place] 09/01/2024 10:45 AM ENGINEERING OPERATIONS LEADER Appointment [facility] Nuclear Medicine [address] [place] [address] [id number] Edilia Pettit, CHELY [address] [facility] [address] [place] [address] documented as of this encounter Visit Diagnoses Not on filedocumented in this encounter Care Teams Dispatcher Relay Relationship Specialty Start Date End Date Shilo Soares MD [address] [place] [address] PCP - General Internal Medicine 04/24/23 documented as of this encounter
--- OUTSIDE RECORDS SUMMARY | 2024-07-26 23:53 | XMS_ITS | Encounter Summary ---
Author Organization [facility] Address [address] [place] [address] Care Team Providers Care Exhibit Builder Name Role Phone Shilo Soares MD Primary Care Provider [phone] Encounter Details Date Type Department Care Team [...] Contact Info) Description 08/04/2024 1:00 PM MEDICAL DIRECTOR OF HOSPICE Appointment [facility] 2nd Ca [address] [place] [address] Aviva Humphries MD [address] [place] [address] Infusion Chair 5, 2nd Floor Hall 08/25/2024 1:00 PM MEDICAL DIRECTOR OF HOSPICE Office Visit [facility] Gynecologic Oncology Hall [address] [place] [address] Edilia Pettit, CHELY [address] [facility] [address] [place] [address] 08/25/2024 1:30 PM MEDICAL DIRECTOR OF HOSPICE Appointment [facility] 2nd Fl [address] [place] [address] Aviva Humphries MD [address] [place] [address] Infusion Chair 1, 2nd Floor [place] 09/01/2024 10:45 AM MEDICAL DIRECTOR OF HOSPICE Appointment [facility] Nuclear Medicine [address] [place] [address] [id number] Edilia Pettit, CHELY [address] [facility] [address] [place] [address] documented as of this encounter Visit Diagnoses Not on filedocumented in this encounter Care Teams Exhibit Builder Relationship Specialty Start Date End Date Shilo Soares MD [address] [place] [address] PCP - General Internal Medicine 04/24/23 documented as of this encounter
--- OUTSIDE RECORDS SUMMARY | 2024-07-26 23:53 | XMS_ITS | Encounter Summary ---
Author Organization [facility] Address [address] [place] [address] Care Team Providers Care Salesperson Recreational Vehicles Name Role Phone Shilo Soares MD Primary Care Provider [phone] Reason for Visit * Reason Comments Med Refill Encounter Details Date Type Department Care Team (Late Contact Info) Description 12/14/2023 Refill [facility] Gynecologic Oncology [address] [place] [address] Aviva Humphries MD [address] [place] [address] Social History Tobacco Use Types [...] (Late Contact Info) Description 08/04/2024 1:00 PM BOAT DECKHAND Appointment [facility] [address] [place] [address] Aviva Humphries MD [address] [place] [address] Infusion Chair 5, 2nd Floor [place] 08/25/2024 1:00 PM BOAT DECKHAND Office Visit [facility] Gynecologic Oncology Hall [address] [address] [facility] [address] [place] [address] Edilia Pettit, CHELY [address] [facility] [address] [place] [address] 08/25/2024 1:30 PM BOAT DECKHAND Appointment [facility] 2nd [place] [address] [place] [address] Aviva Humphries MD [address] [place] [address] Infusion Chair 1, 2nd Floor [place] 09/01/2024 10:45 AM BOAT DECKHAND Appointment [facility] Nuclear Medicine [address] [place] [address] [id number] Edilia Pettit, CHELY [address] [facility] [address] [place] [address] documented as of this encounter Visit Diagnoses Not on filedocumented in this encounter Care Teams Salesperson Recreational Vehicles Relationship Specialty Start Date End Date Shilo Soares MD [address] [place] [address] PCP - General Internal Medicine 04/24/23 documented as of this encounter
--- OUTSIDE RECORDS SUMMARY | 2024-07-26 23:53 | XMS_ITS | Encounter Summary ---
Author Organization [facility] Address [address] [place] [address] Care Team Providers Care Graduate Rn Name Role Phone Shilo Soares MD Primary Care Provider [phone] Encounter Details Date Type Department Care Team [...] (Late Contact Info) Description 08/04/2024 1:00 PM FORMING DEPARTMENT END FINDER Appointment [facility] 2nd Md [address] [place] [address] Aviva Humphries MD [address] [place] [address] Infusion Chair 5, 2nd Floor Hall 08/25/2024 1:00 PM FORMING DEPARTMENT END FINDER Office Visit [facility] Gynecologic Oncology Hall [address] [place] [address] Edilia Pettit, CHELY [address] [address] [place] [address] 08/25/2024 1:30 PM FORMING DEPARTMENT END FINDER Appointment [facility] 2nd Fl [address] [place] [address] Aviva Humphries MD [address] [place] [address] Infusion Chair 1, 2nd Floor [place] 09/01/2024 10:45 AM FORMING DEPARTMENT END FINDER Appointment [facility] Nuclear Medicine [address] [place] [address] [id number] Edilia Pettit, CHELY [address] [facility] [address] [place] [address] documented as of this encounter Visit Diagnoses Not on filedocumented in this encounter Care Teams Graduate Rn Relationship Specialty Start Date End Date Shilo Soares MD [address] [place] [address] PCP - General Internal Medicine 04/24/23 documented as of this encounter
--- OUTSIDE RECORDS SUMMARY | 2024-07-26 23:53 | XMS_ITS | Encounter Summary ---
Author Organization [facility] Address [address] [place] [address] Care Team Providers Care Revenue Stamper Name Role Phone Shilo Soares MD Primary Care Provider [phone] Encounter Details Date Type Department Care Team [...] (Late Contact Info) Description 08/04/2024 1:00 PM SILO MAN Appointment [facility] 2nd [place] [address] [place] [address] Aviva Humphries MD [address] [place] [address] Infusion Chair 5, 2nd Floor Hall 08/25/2024 1:00 PM SILO MAN Office Visit [facility] Gynecologic Oncology Hall [address] [place] [address] Edilia Pettit, CHELY [address] [place] [address] 08/25/2024 1:30 PM SILO MAN Appointment [facility] 2nd Fl [address] [place] [address] Aviva Humphries MD [address] [facility] [address] [place] [address] Infusion Chair 1, 2nd Floor [place] 09/01/2024 10:45 AM SILO MAN Appointment Randy [facility] Nuclear Medicine [address] [place] [address] [id number] Edilia Pettit, CHELY [address] [facility] [address] [place] [address] documented as of this encounter Visit Diagnoses Not on filedocumented in this encounter Care Teams Revenue Stamper Relationship Specialty Start Date End Date Shilo Soares MD [address] [place] [address] PCP - General Internal Medicine 04/24/23 documented as of this encounter
--- OUTSIDE RECORDS SUMMARY | 2024-07-26 23:53 | XMS_ITS | Encounter Summary ---
Author Organization [facility] Address [address] [place] [address] Care Team Providers Care Pool Table Mechanic Name Role Phone Shilo Soares MD Primary Care Provider [phone] Encounter Details Date Type Department Care Team (Late Contact Info) Description 12/11/2023 External Device Data STL ABSTRACTION Provider, Abstract [...] (Late Contact Info) Description 08/04/2024 1:00 PM LINER WORKER Appointment [facility] 2nd [place] [address] [place] [address] Aviva Humphries MD [address] [place] [address] Infusion Chair 5, 2nd Floor Hall 08/25/2024 1:00 PM LINER WORKER Office Visit [facility] Gynecologic Oncology Hall [address] [place] [address] Edilia Pettit, CHELY [address] [facility] [address] [place] [address] 08/25/2024 1:30 PM LINER WORKER Appointment [facility] 2nd Fl [address] [place] [address] Aviva Humphries MD [address] [place] [address] Infusion Chair 1, 2nd Floor [place] 09/01/2024 10:45 AM LINER WORKER Appointment Randy [facility] Nuclear Medicine [address] [place] [address] [id number] Edilia Pettit, CHELY [address] [facility] [address] [place] [address] documented as of this encounter Visit Diagnoses Not on filedocumented in this encounter Care Teams Pool Table Mechanic Relationship Specialty Start Date End Date Shilo Soares MD [address] [place] [address] PCP - General Internal Medicine 04/24/23 documented as of this encounter
--- OUTSIDE RECORDS SUMMARY | 2024-07-26 23:53 | XMS_ITS | Encounter Summary ---
Author Organization [facility] Address [address] [place] [address] Care Team Providers Care Mill Representative Name Role Phone Shilo Soares MD Primary Care Provider [phone] Encounter Details Date Type Department Care Team [...] (Late Contact Info) Description 08/04/2024 1:00 PM RECOVERY ROOM NURSE Appointment [facility] 2nd [place] [address] [place] [address] Aviva Humphries MD [address] [place] [address] Infusion Chair 5, 2nd Floor Hall 08/25/2024 1:00 PM RECOVERY ROOM NURSE Office Visit [facility] Gynecologic Oncology Hall [address] [place] [address] Edilia Pettit, CHELY [address] [facility] [address] [place] [address] 08/25/2024 1:30 PM RECOVERY ROOM NURSE Appointment [facility] 2nd Fl [address] [place] [address] Aviva Humphries MD [address] [place] [address] Infusion Chair 1, 2nd Floor [place] 09/01/2024 10:45 AM RECOVERY ROOM NURSE Appointment Randy [facility] Nuclear Medicine [address] [place] [address] [id number] Edilia Pettit, CHELY [address] [facility] [address] [place] [address] documented as of this encounter Visit Diagnoses Not on filedocumented in this encounter Care Teams Mill Representative Relationship Specialty Start Date End Date Shilo Soares MD [address] [place] [address] PCP - General Internal Medicine 04/24/23 documented as of this encounter
--- OUTSIDE RECORDS SUMMARY | 2024-07-26 23:53 | XMS_ITS | Encounter Summary ---
Author Organization [facility] Address [address] [place] [address] Care Team Providers Care Tour Operator Name Role Phone Shilo Soares MD Primary Care Provider [phone] Encounter Details Date Type Department Care Team [...] (Late Contact Info) Description 08/04/2024 1:00 PM FITTER WELDER Appointment [facility]fusion [facility] 2nd [place] [address] [place] [address] Aviva Humphries MD [address] [place] [address] Infusion Chair 5, 2nd Floor Hall 08/25/2024 1:00 PM FITTER WELDER Office Visit [facility] Gynecologic Oncology Hall [address] [place] [address] Edilia Pettit, CHELY [address] [facility] [facility] [address] [place] [address] 08/25/2024 1:30 PM FITTER WELDER Appointment [facility] 2nd Fl [address] [place] [address] Aviva Humphries MD [address] [facility] [address] [place] [address] Infusion Chair 1, 2nd Floor [place] 09/01/2024 10:45 AM FITTER WELDER Appointment Randy [facility] Nuclear Medicine [address] [place] [address] [id number] Edilia Pettit, CHELY [address] [facility] [address] [place] [address] documented as of this encounter Visit Diagnoses Not on filedocumented in this encounter Care Teams Tour Operator Relationship Specialty Start Date End Date Shilo Soares MD [address] [place] [address] PCP - General Internal Medicine 04/24/23 documented as of this encounter
--- OUTSIDE RECORDS SUMMARY | 2024-07-26 23:53 | XMS_ITS | Encounter Summary ---
Author Organization [facility] Address [address] [place] [address] Care Team Providers Care Therapist Name Role Phone Shilo Soares MD Primary Care Provider [phone] Encounter Details Date Type Department Care Team [...] (Late Contact Info) Description 08/04/2024 1:00 PM PROPELLANT CHARGE ZONE ASSEMBLER Appointment [facility] 2nd [place] [address] [place] [address] Aviva Humphries MD [address] [place] [address] Infusion Chair 5, 2nd Floor Hall 08/25/2024 1:00 PM PROPELLANT CHARGE ZONE ASSEMBLER Office Visit [facility] Gynecologic Oncology Hall [address] [place] [address] Edilia Pettit, CHELY [address] [facility] [address] [place] [address] 08/25/2024 1:30 PM PROPELLANT CHARGE ZONE ASSEMBLER Appointment [facility]fusion Center 2nd Fl [address] [place] [address] Aviva Humphries MD [address] [place] [address] Infusion Chair 1, 2nd Floor [place] 09/01/2024 10:45 AM PROPELLANT CHARGE ZONE ASSEMBLER Appointment Randy [facility] Nuclear Medicine [address] [place] [address] [id number] Edilia Pettit, CHELY [address] [facility] [address] [place] [address] documented as of this encounter Visit Diagnoses Not on filedocumented in this encounter Care Teams Therapist Relationship Specialty Start Date End Date Shilo Soares MD [address] [place] [address] PCP - General Internal Medicine 04/24/23 documented as of this encounter
--- OUTSIDE RECORDS SUMMARY | 2024-07-26 23:53 | XMS_ITS | Encounter Summary ---
Author Organization [facility] Address [address] [place] [address] Care Team Providers Care Specialist Icu Name Role Phone Shilo Soares MD Primary Care Provider [phone] Encounter Details Date Type Department Care Team [...] (Late Contact Info) Description 08/04/2024 1:00 PM ASSESSMENT DIRECTOR Appointment [facility] Infusion Center 2nd Ny [address] [place] [address] Aviva Humphries MD [address] [place] [address] Infusion Chair 5, 2nd Floor Hall 08/25/2024 1:00 PM ASSESSMENT DIRECTOR Office Visit [facility] Gynecologic Oncology Hall [address] [place] [address] Edilia Pettit, CHELY [address] [facility] [facility] [address] [place] [address] 08/25/2024 1:30 PM ASSESSMENT DIRECTOR Appointment [facility]fusion [facility] 2nd Fl [address] [place] [address] Aviva Humphries MD [address] [place] [address] Infusion Chair 1, 2nd Floor [place] 09/01/2024 10:45 AM ASSESSMENT DIRECTOR Appointment Randy [facility] Nuclear Medicine [address] [place] [address] [id number] Edilia Pettit, CHELY [address] [facility] [address] [place] [address] documented as of this encounter Visit Diagnoses Not on filedocumented in this encounter Care Teams Specialist Icu Relationship Specialty Start Date End Date Shilo Soares MD [address] [place] [address] PCP - General Internal Medicine 04/24/23 documented as of this encounter
--- OUTSIDE RECORDS SUMMARY | 2024-07-26 23:53 | XMS_ITS | Encounter Summary ---
Author Organization [facility] Address [address] [place] [address] Care Team Providers Care Drier Operator Head Name Role Phone Shilo Soares MD Primary Care Provider [phone] Encounter Details Date Type Department Care Team [...] (Late Contact Info) Description 08/04/2024 1:00 PM UNIX ANALYST Appointment [facility] [address]nd [address] [place] [address] Aviva Humphries MD [address] [place] [address] Infusion Chair 5, 2nd Floor Hall 08/25/2024 1:00 PM UNIX ANALYST Office Visit [facility] Gynecologic Oncology Hall [address] [place] [address] Edilia Pettit, CHELY [address] [facility] [facility] [address] [place] [address] 08/25/2024 1:30 PM UNIX ANALYST Appointment [facility] 2nd Fl [address] [place] [address] Aviva Humphries MD [address] [facility] [address] [place] [address] Infusion Chair 1, 2nd Floor [place] 09/01/2024 10:45 AM UNIX ANALYST Appointment Randy [facility] Nuclear Medicine [address] [place] [address] [id number] Edilia Pettit, CHELY [address] [facility] [address] [place] [address] documented as of this encounter Visit Diagnoses Not on filedocumented in this encounter Care Teams Drier Operator Head Relationship Specialty Start Date End Date Shilo Soares MD [address] [place] [address] PCP - General Internal Medicine 04/24/23 documented as of this encounter
--- OUTSIDE RECORDS SUMMARY | 2024-07-26 23:54 | XMS_ITS | Encounter Summary ---
Author Organization [facility] Address [address] [place] [address] Care Team Providers Care Desktop Operator Name Role Phone Shilo Soares MD Primary Care Provider [phone] Encounter Details Date Type Department Care Team (Late Contact Info) Description 12/04/2023 External Device Data STL ABSTRACTION Provider, Abstract [...] (Late Contact Info) Description 08/04/2024 1:00 PM MOLD CAR PUSHER Appointment [facility] 2nd [place] [address] [place] [address] Aviva Humphries MD [address] [place] [address] Infusion Chair 5, 2nd Floor Hall 08/25/2024 1:00 PM MOLD CAR PUSHER Office Visit [facility] Gynecologic Oncology Hall [address] [place] [address] Edilia Pettit, CHELY [address] [facility] [address] [place] [address] 08/25/2024 1:30 PM MOLD CAR PUSHER Appointment [facility] Center 2nd Fl [address] [place] [address] Aviva Humphries MD [address] [facility] [address] [place] [address] Infusion Chair 1, 2nd Floor [place] 09/01/2024 10:45 AM MOLD CAR PUSHER Appointment [facility] Nuclear Medicine [address] [place] [address] [id number] Edilia Pettit, CHELY [address] [facility] [address] [place] [address] documented as of this encounter Visit Diagnoses Not on filedocumented in this encounter Care Teams Desktop Operator Relationship Specialty Start Date End Date Shilo Soares MD [address] [place] [address] PCP - General Internal Medicine 04/24/23 documented as of this encounter
--- OUTSIDE RECORDS SUMMARY | 2024-07-26 23:54 | XMS_ITS | Encounter Summary ---
Author Organization [facility] Address [address] [place] [address] Care Team Providers Care Rib Puller Name Role Phone Shilo Soares MD Primary Care Provider [phone] Encounter Details Date Type Department Care Team (Late Contact Info) Description 12/02/2023 External Device Data STL ABSTRACTION Provider, Abstract [...] Contact Info) Description 08/04/2024 1:00 PM MOLD CARRIER Appointment [facility] 2nd Ut [address] [place] [address] Aviva Humphries MD [address] [place] [address] Infusion Chair 5, 2nd Floor Hall 08/25/2024 1:00 PM MOLD CARRIER Office Visit [facility] Gynecologic Oncology Hall [address] [place] [address] Edilia Pettit, CHELY [address] [facility] [address] [address] [place] [address] 08/25/2024 1:30 PM MOLD CARRIER Appointment [facility] 2nd Fl [address] [place] [address] Aviva Humphries MD [address] [facility] [address] [place] [address] Infusion Chair 1, 2nd Floor [place] 09/01/2024 10:45 AM MOLD CARRIER Appointment Randy [facility] Nuclear Medicine [address] [place] [address] [id number] Edilia Pettit, CHELY [address] [facility] [address] [place] [address] documented as of this encounter Visit Diagnoses Not on filedocumented in this encounter Care Teams Rib Puller Relationship Specialty Start Date End Date Shilo Soares MD [address] [place] [address] PCP - General Internal Medicine 04/24/23 documented as of this encounter
--- OUTSIDE RECORDS SUMMARY | 2024-07-26 23:54 | XMS_ITS | Encounter Summary ---
Author Organization [facility] Address [address] [place] [address] Care Team Providers Care Keg Varnisher Name Role Phone Shilo Soares MD Primary Care Provider [phone] Encounter Details Date Type Department Care Team (Late Contact Info) Description 11/30/2023 External Device Data STL ABSTRACTION Provider, Abstract [...] (Late Contact Info) Description 08/04/2024 1:00 PM HIGH SCHOOL SPECIAL EDUCATION TEACHER Appointment [facility]fusion [facility] 2nd Vt [address] [place] [address] Aviva Humphries MD [address] [place] [address] Infusion Chair 5, 2nd Floor Hall 08/25/2024 1:00 PM HIGH SCHOOL SPECIAL EDUCATION TEACHER Office Visit [facility] Gynecologic Oncology Hall [address] [place] [address] Edilia Pettit, CHELY [address] [place] [address] 08/25/2024 1:30 PM HIGH SCHOOL SPECIAL EDUCATION TEACHER Appointment [facility]fusion Center 2nd Fl [address] [place] [address] Aviva Humphries MD [address] [facility] [facility] [address] [place] [address] Infusion Chair 1, 2nd Floor [place] 09/01/2024 10:45 AM HIGH SCHOOL SPECIAL EDUCATION TEACHER Appointment [facility] Nuclear Medicine [address] [place] [address] [id number] Edilia Pettit, CHELY [address] [facility] [address] [place] [address] documented as of this encounter Visit Diagnoses Not on filedocumented in this encounter Care Teams Keg Varnisher Relationship Specialty Start Date End Date Shilo Soares MD [address] [place] [address] PCP - General Internal Medicine 04/24/23 documented as of this encounter
--- OUTSIDE RECORDS SUMMARY | 2024-07-26 23:54 | XMS_ITS | Encounter Summary ---
Author Organization [facility] Address [address] [place] [address] Care Team Providers Care Farmworker Cranberry Name Role Phone Shilo Soares MD Primary Care Provider [phone] Encounter Details Date Type Department Care Team (Late Contact Info) Description 12/01/2023 External Device Data STL ABSTRACTION Provider, Abstract [...] (Late Contact Info) Description 08/04/2024 1:00 PM TARIFF COUNSEL Appointment [facility]fusion [facility] 2nd [place] [address] [place] [address] Aviva Humphries MD [address] [place] [address] Infusion Chair 5, 2nd Floor [place] 08/25/2024 1:00 PM TARIFF COUNSEL Office Visit [facility] Gynecologic Oncology Hall [address] [place] [address] Edilia Pettit, CHELY [address] [place] [address] 08/25/2024 1:30 PM TARIFF COUNSEL Appointment [facility] 2nd Fl [address] [place] [address] Aviva Humphries MD [address] [place] [address] Infusion Chair 1, 2nd Floor [place] 09/01/2024 10:45 AM TARIFF COUNSEL Appointment Randy [facility] Nuclear Medicine [address] [place] [address] [id number] Edilia Pettit, CHELY [address] [facility] [address] [place] [address] documented as of this encounter Visit Diagnoses Not on filedocumented in this encounter Care Teams Farmworker Cranberry Relationship Specialty Start Date End Date Shilo Soares MD [address] [place] [address] PCP - General Internal Medicine 04/24/23 documented as of this encounter
--- OUTSIDE RECORDS SUMMARY | 2024-07-26 23:54 | XMS_ITS | Encounter Summary ---
Author Organization [facility] Address [address] [place] [address] Care Team Providers Care Agronomy Instructor Name Role Phone Shilo Soares MD Primary Care Provider [phone] Encounter Details Date Type Department Care Team (Late Contact Info) Description 11/30/2023 Orders Only [facility] Hall [address] [place] [address] Aviva Humphries MD [address] [place] [address] Malignant neoplasm of ovary, unspecified [...] (Late Contact Info) Description 08/04/2024 1:00 PM POLLUTION CONTROL ENGINEER Appointment [facility] [address] Fl [address] [place] [address] Aviva Humphries MD [address] [place] [address] Infusion Chair 5, 2nd Floor Hall 08/25/2024 1:00 PM POLLUTION CONTROL ENGINEER Office Visit [facility] Hall [address] [place] [address] Edilia Pettit, CHELY [address] [place] [address] 08/25/2024 1:30 PM POLLUTION CONTROL ENGINEER Appointment [facility] [address] [place] [address] Aviva Humphries MD [address] [place] [address] Infusion Chair 1, 2nd Floor Hall 09/01/2024 10:45 AM POLLUTION CONTROL ENGINEER Appointment Randy [facility] Nuclear Medicine [address] [place] [address] [id number] Edilia Pettit, CHELY [address] [facility] [address] [place] [address] documented as of this encounter Visit Diagnoses Diagnosis Malignant neoplasm of ovary, unspecified laterality documented in this encounter Care Teams Agronomy Instructor Relationship Specialty Start Date End Date Shilo Soares MD [address] [facility] 2 [place] [address] PCP - General Internal Medicine 04/24/23 documented as of this encounter
--- OUTSIDE RECORDS SUMMARY | 2024-07-26 23:54 | XMS_ITS | Encounter Summary ---
Author Organization [facility] Address [address] [place] [address] Care Team Providers Care Portrait Artist Name Role Phone Shilo Soares MD Primary Care Provider [phone] Encounter Details Date Type Department Care Team (Late Contact Info) Description 12/03/2023 External Device Data STL ABSTRACTION Provider, Abstract [...] (Late Contact Info) Description 08/04/2024 1:00 PM NAILING MACHINE FEEDER Appointment [facility] 2nd [place] [address] [place] [address] Aviva Humphries MD [address] [place] [address] Infusion Chair 5, 2nd Floor Hall 08/25/2024 1:00 PM NAILING MACHINE FEEDER Office Visit [facility] Gynecologic Oncology Hall [address] [place] [address] Edilia Pettit, CHELY [address] [place] [address] 08/25/2024 1:30 PM NAILING MACHINE FEEDER Appointment [facility] 2nd Fl [address] [place] [address] Aviva Humphries MD [address] [place] [address] Infusion Chair 1, 2nd Floor [place] 09/01/2024 10:45 AM NAILING MACHINE FEEDER Appointment Randy [facility] Nuclear Medicine [address] [place] [address] [id number] Edilia Pettit, CHELY [address] [facility] [address] [place] [address] documented as of this encounter Visit Diagnoses Not on filedocumented in this encounter Care Teams Portrait Artist Relationship Specialty Start Date End Date Shilo Soares MD [address] [place] [address] PCP - General Internal Medicine 04/24/23 documented as of this encounter
--- OUTSIDE RECORDS SUMMARY | 2024-07-26 23:54 | XMS_ITS | Encounter Summary ---
Author Organization [facility] Address [address] [place] [address] Care Team Providers Care Education Professional Name Role Phone Shilo Soares MD Primary Care Provider [phone] Encounter Details Date Type Department Care Team (Late Contact Info) Description 12/09/2023 External Device Data STL ABSTRACTION Provider, Abstract [...] (Late Contact Info) Description 08/04/2024 1:00 PM CYBER SECURITY MANAGER Appointment [facility] 2nd Sc [address] [place] [address] Aviva Humphries MD [address] [place] [address] Infusion Chair 5, 2nd Floor Hall 08/25/2024 1:00 PM CYBER SECURITY MANAGER Office Visit [facility] Gynecologic Oncology Hall [address] [place] [address] Edilia Pettit, CHELY [address] [place] [address] 08/25/2024 1:30 PM CYBER SECURITY MANAGER Appointment [facility] 2nd Fl [address] [place] [address] Aviva Humphries MD [address] [place] [address] Infusion Chair 1, 2nd Floor [place] 09/01/2024 10:45 AM CYBER SECURITY MANAGER Appointment Randy [facility] Nuclear Medicine [address] [place] [address] [id number] Edilia Pettit, CHELY [address] [facility] [address] [place] [address] documented as of this encounter Visit Diagnoses Not on filedocumented in this encounter Care Teams Education Professional Relationship Specialty Start Date End Date Shilo Soares MD [address] [place] [address] PCP - General Internal Medicine 04/24/23 documented as of this encounter
--- OUTSIDE RECORDS SUMMARY | 2024-07-26 23:54 | XMS_ITS | Encounter Summary ---
Author Organization [facility] Address [address] [place] [address] Care Team Providers Care Missile Inspector Name Role Phone Shilo Soares MD Primary Care Provider [phone] Encounter Details Date Type Department Care Team (Late st Contact Info) Description 12/07/2023 Orders Only [facility] Gynecologic Oncology Hall [address] [place] [address] Aviva Humphries MD [address] [place] [address] Malignant neoplasm of ovary, unspecified [...] Encounter Note - Aviva Humphries MD - 12/09/2023 10:10 PM CDT CBC looks good. documented in this encounter Plan of Treatment Upcoming Encounters Date Type Department Care Team (Late st Contact Info) Description 08/04/2024 1:00 PM AUDIT MACHINE OPERATOR Appointment Randy [facility] Center 2nd Fl [address] [place] [address] Aviva Humphries MD [address] [facility] [address] [facility] [place] [address] Infusion Chair 5, 2nd Floor Hall 08/25/2024 1:00 PM AUDIT MACHINE OPERATOR Office Visit [facility] Gynecologic Oncology [place] [address] [facility] [address] [place] [address] Edilia Pettit NP [address] [facility] [address] [place] [address] 08/25/2024 1:30 PM AUDIT MACHINE OPERATOR Appointment [facility] Center 2nd Fl [address] [place] [address] Aviva Humphries MD [address] [facility] [address] [facility] [place] [address] Infusion Chair 1, 2nd Floor Hall 09/01/2024 10:45 AM AUDIT MACHINE OPERATOR Appointment [facility] Nuclear Medicine [address] [place] [address] [id number] Edilia Pettit, CHELY [address] [facility] [address] [place] [address] documented as of this encounter Procedures Procedure Name Priority Date/Time Associated Diagnosis Comments CBC WITH DIFFERENTIAL Stat 12/09/2023 7:42 AM CDT Malignant neoplasm of ovary, unspecified laterality documented in this encounter Results * (ABNORMAL) CBC WITH DIFFERENTIAL (12/09/2023 7:42 AM CDT) WBC 5.7 3.8 - 10.8 Thousand/ uL [facility] RBC 3.42(L) 3.80 - 5.10 Million/u L [facility] HEMOGLOBIN 11.5(L) 11.7 - 15.5 g/dL [facility] HEMATOCRIT 34.9(L) 35.0 - 45.0 % [facility] MCV 102.0(H) 80.0 - 100.0 fL [facility] MCH 33.6(H) 27.0 - 33.0 pg [facility] MCHC 33.0 32.0 - 36.0 g/dL [facility] RDW 16.5(H) 11.0 - 15.0 % [facility] PLATELETS 236 140 - 400 Thousand/ uL [facility] MPV 9.7 7.5 - 12.5 fL [facility] NEUTROPHIL ABSOLUTE 3,694 1,500 - 7,800 cells/uL [facility] LYMPHOCYTE ABSOLUTE 1,613 850 - 3,900 cells/uL [facility] MONOCYTE ABSOLUTE 308 200 - 950 cells/uL [facility] EOSINOPHIL ABSOLUTE 57 15 - 500 cells/uL [facility] BASOPHILS ABSOLUTE 29 0 - 200 cells/uL [facility] NEUTROPHIL 64.8 % [facility] LYMPHOCYTES 28.3 % [facility] MONOCYTE 5.4 % [facility] EOSINOPHILS 1.0 % [facility] BASOPHILS 0.5 % [facility] Comment: FASTING:NO FASTING: NO Test Performed at: [facility] [address] [place] ??[id number] [facility] Vo Blood 12/09/2023 7:42 AM CDT 12/09/2023 11:31 AM CDT Aviva Humphries MD HEMATOLOGY ORDERABLE S [facility] [phone] [facility] [place] [place] [address] [place] [address] documented in this encounter Visit Diagnoses Diagnosis Malignant neoplasm of ovary, unspecified laterality documented in this encounter Care Teams Missile Inspector Relationship Specialty Start Date End Date Shilo Soares MD [address] [place] [address] PCP - General Internal Medicine 04/24/23 documented as of this encounter
--- OUTSIDE RECORDS SUMMARY | 2024-07-26 23:54 | XMS_ITS | Encounter Summary ---
Author Organization [facility] Address [address] [place] [address] Care Team Providers Care Car Repairer Apprentice Name Role Phone Shilo Soares MD Primary Care Provider [phone] Encounter Details Date Type Department Care Team (Late Contact Info) Description 12/06/2023 External Device Data STL ABSTRACTION Provider, Abstract [...] (Late Contact Info) Description 08/04/2024 1:00 PM INTELLIGENCE OFFICER Appointment [facility] 2nd [place] [address] [place] [address] Aviva Humphries MD [address] [place] [address] Infusion Chair 5, 2nd Floor Hall 08/25/2024 1:00 PM INTELLIGENCE OFFICER Office Visit [facility] Gynecologic Oncology Hall [address] [place] [address] Edilia Pettit, CHELY [address] [facility] [address] [address] [address] [place] [address] 08/25/2024 1:30 PM INTELLIGENCE OFFICER Appointment [facility] 2nd Fl [address] [place] [address] Aviva Humphries MD [address] [place] [address] Infusion Chair 1, 2nd Floor [place] 09/01/2024 10:45 AM INTELLIGENCE OFFICER Appointment Randy [facility] Nuclear Medicine [address] [place] [address] [id number] Edilia Pettit, CHELY [address] [facility] [address] [place] [address] documented as of this encounter Visit Diagnoses Not on filedocumented in this encounter Care Teams Car Repairer Apprentice Relationship Specialty Start Date End Date Shilo Soares MD [address] [place] [address] PCP - General Internal Medicine 04/24/23 documented as of this encounter
--- OUTSIDE RECORDS SUMMARY | 2024-07-26 23:54 | XMS_ITS | Encounter Summary ---
Author Organization [facility] Address [address] [place] [address] Care Team Providers Care Motorboat Mechanic Inboard/Outboard Name Role Phone Shilo Soares MD Primary Care Provider [phone] Encounter Details Date Type Department Care Team [...] (Late Contact Info) Description 08/04/2024 1:00 PM COMMISSION CLERK Appointment [facility] 2nd Vt [address] [place] [address] Aviva Humphries MD [address] [place] [address] Infusion Chair 5, 2nd Floor Hall 08/25/2024 1:00 PM COMMISSION CLERK Office Visit [facility] Gynecologic Oncology Hall [address] [place] [address] Edilia Pettit, CHELY [address] [place] [address] 08/25/2024 1:30 PM COMMISSION CLERK Appointment [facility] 2nd Fl [address] [place] [address] Aviva Humphries MD [address] [facility] [facility] [address] [place] [address] Infusion Chair 1, 2nd Floor [place] 09/01/2024 10:45 AM COMMISSION CLERK Appointment Randy [facility] Nuclear Medicine [address] [place] [address] [id number] Edilia Pettit, CHELY [address] [facility] [address] [place] [address] documented as of this encounter Visit Diagnoses Not on filedocumented in this encounter Care Teams Motorboat Mechanic Inboard/Outboard Relationship Specialty Start Date End Date Shilo Soares MD [address] [place] [address] PCP - General Internal Medicine 04/24/23 documented as of this encounter
--- OUTSIDE RECORDS SUMMARY | 2024-07-26 23:54 | XMS_ITS | Encounter Summary ---
Author Organization [facility] Address [address] [place] [address] Care Team Providers Care Experimental Aircraft Mechanic Name Role Phone Shilo Soares MD Primary Care Provider [phone] Encounter Details Date Type Department Care Team (Late Contact Info) Description 12/07/2023 External Device Data STL ABSTRACTION Provider, Abstract [...] (Late Contact Info) Description 08/04/2024 1:00 PM MISSION SYSTEMS ENGINEER Appointment [facility] 2nd Tn [address] [place] [address] Aviva Humphries MD [address] [place] [address] Infusion Chair 5, 2nd Floor Hall 08/25/2024 1:00 PM M[place]ION SYSTEMS ENGINEER Office Visit [facility] Gynecologic Oncology Hall [address] [place] [address] Edilia Pettit, CHELY [address] [facility] [address] [place] [address] 08/25/2024 1:30 PM M[place]ION SYSTEMS ENGINEER Appointment [facility] 2nd Fl [address] [place] [address] Aviva Humphries MD [address] [place] [address] Infusion Chair 1, 2nd Floor [place] 09/01/2024 10:45 AM [place]ION SYSTEMS ENGINEER Appointment Randy [facility] Nuclear Medicine [address] [place] [address] [id number] Edilia Pettit, CHELY [address] [facility] [address] [place] [address] documented as of this encounter Visit Diagnoses Not on filedocumented in this encounter Care Teams Experimental Aircraft Mechanic Relationship Specialty Start Date End Date Shilo Soares MD [address] [place] [address] PCP - General Internal Medicine 04/24/23 documented as of this encounter
--- OUTSIDE RECORDS SUMMARY | 2024-07-26 23:54 | XMS_ITS | Encounter Summary ---
Author Organization [facility] Address [address] [place] [address] Care Team Providers Care Wrinkle Chaser Name Role Phone Shilo Soares MD Primary Care Provider [phone] Encounter Details Date Type Department Care Team [...] Contact Info) Description 08/04/2024 1:00 PM CHILD HEALTH ASSOCIATE Appointment [facility] 2nd [place] [address] [place] [address] Aviva Humphries MD [address] [place] [address] Infusion Chair 5, 2nd Floor Hall 08/25/2024 1:00 PM CHILD HEALTH ASSOCIATE Office Visit [facility] Gynecologic Oncology Hall [address] [place] [address] Edilia Pettit, CHELY [address] [facility] [address] [place] [address] 08/25/2024 1:30 PM CHILD HEALTH ASSOCIATE Appointment [facility] 2nd Fl [address] [place] [address] Aviva Humphries MD [address] [facility] [address] [place] [address] Infusion Chair 1, 2nd Floor [place] 09/01/2024 10:45 AM CHILD HEALTH ASSOCIATE Appointment Randy [facility] Nuclear Medicine [address] [place] [address] [id number] Edilia Pettit, CHELY [address] [facility] [address] [place] [address] documented as of this encounter Visit Diagnoses Not on filedocumented in this encounter Care Teams Wrinkle Chaser Relationship Specialty Start Date End Date Shilo Soares MD [address] [place] [address] PCP - General Internal Medicine 04/24/23 documented as of this encounter
--- OUTSIDE RECORDS SUMMARY | 2024-07-26 23:54 | XMS_ITS | Encounter Summary ---
Author Organization [facility] Address [address] [place] [address] Care Team Providers Care Educational Aid Name Role Phone Shilo Soares MD Primary Care Provider [phone] Encounter Details Date Type Department Care Team (Late Contact Info) Description 12/10/2023 External Device Data STL ABSTRACTION Provider, Abstract [...] (Late Contact Info) Description 08/04/2024 1:00 PM OIL FIELD ROUSTABOUT Appointment [facility] 2nd Nm [address] [place] [address] Aviva Humphries MD [address] [place] [address] Infusion Chair 5, 2nd Floor [place] 08/25/2024 1:00 PM OIL FIELD ROUSTABOUT Office Visit [facility] Gynecologic Oncology Hall [address] [place] [address] Edilia Pettit, CHELY [address] [address] [place] [address] 08/25/2024 1:30 PM OIL FIELD ROUSTABOUT Appointment [facility] 2nd Fl [address] [place] [address] Aviva Humphries MD [address] [place] [address] Infusion Chair 1, 2nd Floor [place] 09/01/2024 10:45 AM OIL FIELD ROUSTABOUT Appointment Randy [facility] Nuclear Medicine [address] [place] [address] [id number] Edilia Pettit, CHELY [address] [facility] [address] [place] [address] documented as of this encounter Visit Diagnoses Not on filedocumented in this encounter Care Teams Educational Aid Relationship Specialty Start Date End Date Shilo Soares MD [address] [place] [address] PCP - General Internal Medicine 04/24/23 documented as of this encounter
--- OUTSIDE RECORDS SUMMARY | 2024-07-26 23:54 | XMS_ITS | Encounter Summary ---
Author Organization [facility] Address [address] [place] [address] Care Team Providers Care Ballet Company Artistic Director Name Role Phone Shilo Soares MD Primary Care Provider [phone] Encounter Details Date Type Department Care Team [...] (Late Contact Info) Description 08/04/2024 1:00 PM AERIAL SPRAYER Appointment [facility] 2nd [place] [address] [place] [address] Aviva Humphries MD [address] [place] [address] Infusion Chair 5, 2nd Floor [place] 08/25/2024 1:00 PM AERIAL SPRAYER Office Visit [facility] Gynecologic Oncology Hall [address] [place] [address] Edilia Pettit, CHELY [address] [facility] [address] [address] [place] [address] 08/25/2024 1:30 PM AERIAL SPRAYER Appointment [facility] 2nd Fl [address] [place] [address] Aviva Humphries MD [address] [address] [address] [place] [address] Infusion Chair 1, 2nd Floor [place] 09/01/2024 10:45 AM AERIAL SPRAYER Appointment Randy Hall [facility] Nuclear Medicine [address] [place] [address] [id number] Edilia Pettit, CHELY [address] [facility] [address] [place] [address] documented as of this encounter Visit Diagnoses Not on filedocumented in this encounter Care Teams Ballet Company Artistic Director Relationship Specialty Start Date End Date Shilo Soares MD [address] [place] [address] PCP - General Internal Medicine 04/24/23 documented as of this encounter
--- OUTSIDE RECORDS SUMMARY | 2024-07-26 23:54 | XMS_ITS | Encounter Summary ---
Author Organization [facility] Address [address] [place] [address] Care Team Providers Care Electrician Bus Name Role Phone Shilo Soares MD Primary Care Provider [phone] Encounter Details Date Type Department Care Team [...] (Late Contact Info) Description 08/04/2024 1:00 PM BOX STACKER Appointment [facility] 2nd Al [address] [place] [address] Aviva Humphries MD [address] [place] [address] Infusion Chair 5, 2nd Floor [place] 08/25/2024 1:00 PM BOX STACKER Office Visit [facility] Gynecologic Oncology Hall [address] [place] [address] Edilia Pettit, CHELY [address] [facility] [address] [place] [address] 08/25/2024 1:30 PM BOX STACKER Appointment [facility] 2nd Fl [address] [place] [address] Aviva Humphries MD [address] [place] [address] Infusion Chair 1, 2nd Floor [place] 09/01/2024 10:45 AM BOX STACKER Appointment Randy Hall [facility] Nuclear Medicine [address] [place] [address] [id number] Edilia Pettit, CHELY [address] [facility] [address] [place] [address] documented as of this encounter Visit Diagnoses Not on filedocumented in this encounter Care Teams Electrician Bus Relationship Specialty Start Date End Date Shilo Soares MD [address] [place] [address] PCP - General Internal Medicine 04/24/23 documented as of this encounter
--- OUTSIDE RECORDS SUMMARY | 2024-07-26 23:54 | XMS_ITS | Encounter Summary ---
Author Organization [facility] Address [address] [place] [address] Care Team Providers Care Plycor Operator Name Role Phone Shilo Soares MD Primary Care Provider [phone] Encounter Details Date Type Department Care Team [...] Contact Info) Description 08/04/2024 1:00 PM INSURANCE DEFENSE ATTORNEY Appointment [facility] [address] [place] [address] Aviva Humphries MD [address] [place] [address] Infusion Chair 5, 2nd Floor Hall 08/25/2024 1:00 PM INSURANCE DEFENSE ATTORNEY Office Visit [facility] Gynecologic Oncology Hall [address] [place] [address] Edilia Pettit, CHELY [address] [facility] [facility] [address] [place] [address] 08/25/2024 1:30 PM INSURANCE DEFENSE ATTORNEY Appointment [facility] 2nd Fl [address] [place] [address] Aviva Humphries MD [address] [facility] [address] [place] [address] Infusion Chair 1, 2nd Floor [place] 09/01/2024 10:45 AM INSURANCE DEFENSE ATTORNEY Appointment [facility] Nuclear Medicine [address] [place] [address] [id number] Edilia Pettit, CHELY [address] [facility] [address] [place] [address] documented as of this encounter Visit Diagnoses Not on filedocumented in this encounter Care Teams Plycor Operator Relationship Specialty Start Date End Date Shilo Soares MD [address] [place] [address] PCP - General Internal Medicine 04/24/23 documented as of this encounter
--- OUTSIDE RECORDS SUMMARY | 2024-07-26 23:54 | XMS_ITS | Encounter Summary ---
Author Organization [facility] Address [address] [place] [address] Care Team Providers Care Butter Printer Name Role Phone Shilo Soares MD Primary Care Provider [phone] Encounter Details Date Type Department Care Team [...] (Late Contact Info) Description 08/04/2024 1:00 PM SPINNING MACHINE TENDER Appointment [facility] 2nd Tn [address] [place] [address] Aviva Humphries MD [address] [place] [address] Infusion Chair 5, 2nd Floor Hall 08/25/2024 1:00 PM SPINNING MACHINE TENDER Office Visit [facility] Gynecologic Oncology Hall [address] [place] [address] Edilia Pettit, CHELY [address] [facility] [facility] [address] [place] [address] 08/25/2024 1:30 PM SPINNING MACHINE TENDER Appointment [facility] 2nd Fl [address] [place] [address] Aviva Humphries MD [address] [facility] [address] [place] [address] Infusion Chair 1, 2nd Floor [place] 09/01/2024 10:45 AM SPINNING MACHINE TENDER Appointment [facility] Nuclear Medicine [address] [place] [address] [id number] Edilia Pettit, CHELY [address] [facility] [address] [place] [address] documented as of this encounter Visit Diagnoses Not on filedocumented in this encounter Care Teams Butter Printer Relationship Specialty Start Date End Date Shilo Soares MD [address] [place] [address] PCP - General Internal Medicine 04/24/23 documented as of this encounter
--- OUTSIDE RECORDS SUMMARY | 2024-07-26 23:54 | XMS_ITS | Encounter Summary ---
Author Organization [facility] Address [address] [place] [address] Care Team Providers Care Front Office Developer Name Role Phone Shilo Soares MD Primary Care Provider [phone] Encounter Details Date Type Department Care Team [...] (Late Contact Info) Description 08/04/2024 1:00 PM CLAIMS COUNSEL Appointment [facility] 2nd Pr [address] [place] [address] Aviva Humphries MD [address] [place] [address] Infusion Chair 5, 2nd Floor Hall 08/25/2024 1:00 PM CLAIMS COUNSEL Office Visit [facility] Gynecologic Oncology Hall [address] [place] [address] Edilia Pettit, CHELY [address] [address] [facility] [facility] [address] [place] [address] 08/25/2024 1:30 PM CLAIMS COUNSEL Appointment [facility] 2nd Fl [address] [place] [address] Aviva Humphries MD [address] [facility] [address] [place] [address] Infusion Chair 1, 2nd Floor [place] 09/01/2024 10:45 AM CLAIMS COUNSEL Appointment [facility] Nuclear Medicine [address] [place] [address] [id number] Edilia Pettit, CHELY [address] [facility] [address] [place] [address] documented as of this encounter Visit Diagnoses Not on filedocumented in this encounter Care Teams Front Office Developer Relationship Specialty Start Date End Date Shilo Soares MD [address] [place] [address] PCP - General Internal Medicine 04/24/23 documented as of this encounter
--- OUTSIDE RECORDS SUMMARY | 2024-07-26 23:54 | XMS_ITS | Encounter Summary ---
Author Organization [facility] Address [address] [place] [address] Care Team Providers Care Executive Recruiter Name Role Phone Shilo Soares MD Primary Care Provider [phone] Encounter Details Date Type Department Care Team [...] (Late Contact Info) Description 08/04/2024 1:00 PM TRAIN BRAKE OPERATOR Appointment [facility] 2nd Sd [address] [place] [address] Aviva Humphries MD [address] [place] [address] Infusion Chair 5, 2nd Floor Hall 08/25/2024 1:00 PM TRAIN BRAKE OPERATOR Office Visit [facility] Gynecologic Oncology Hall [address] [place] [address] Edilia Pettit, CHELY [address] [facility] [address] [address] [place] [address] 08/25/2024 1:30 PM TRAIN BRAKE OPERATOR Appointment [facility] 2nd Fl [address] [place] [address] Aviva Humphries MD [address] [facility] [address] [place] [address] Infusion Chair 1, 2nd Floor [place] 09/01/2024 10:45 AM TRAIN BRAKE OPERATOR Appointment [facility] Nuclear Medicine [address] [place] [address] [id number] Edilia Pettit, CHELY [address] [facility] [address] [place] [address] documented as of this encounter Visit Diagnoses Not on filedocumented in this encounter Care Teams Executive Recruiter Relationship Specialty Start Date End Date Shilo Soares MD [address] [place] [address] PCP - General Internal Medicine 04/24/23 documented as of this encounter
--- OUTSIDE RECORDS SUMMARY | 2024-07-26 23:54 | XMS_ITS | Encounter Summary ---
Author Organization [facility] Address [address] [place] [address] Care Team Providers Care Facility Mechanic Name Role Phone Shilo Soares MD Primary Care Provider [phone] Encounter Details Date Type Department Care Team [...] Contact Info) Description 08/04/2024 1:00 PM BRICK KILN BURNER Appointment [facility] 2nd Nc [address] [place] [address] Aviva Humphries MD [address] [place] [address] Infusion Chair 5, 2nd Floor Hall 08/25/2024 1:00 PM BRICK KILN BURNER Office Visit [facility] Gynecologic Oncology Hall [address] [place] [address] Edilia Pettit, CHELY [address] [facility] [address] [place] [address] 08/25/2024 1:30 PM BRICK KILN BURNER Appointment [facility] 2nd Fl [address] [place] [address] Aviva Humphries MD [address] [address] [facility] [address] [place] [address] Infusion Chair 1, 2nd Floor [place] 09/01/2024 10:45 AM BRICK KILN BURNER Appointment [facility] Nuclear Medicine [address] [place] [address] [id number] Edilia Pettit, CHELY [address] [facility] [address] [place] [address] documented as of this encounter Visit Diagnoses Not on filedocumented in this encounter Care Teams Facility Mechanic Relationship Specialty Start Date End Date Shilo Soares MD [address] [place] [address] PCP - General Internal Medicine 04/24/23 documented as of this encounter
--- OUTSIDE RECORDS SUMMARY | 2024-07-26 23:54 | XMS_ITS | Encounter Summary ---
Author Organization [facility] Address [address] [place] [address] Care Team Providers Care Machine Joiner Cementer Name Role Phone Shilo Soares MD Primary Care Provider [phone] Encounter Details Date Type Department Care Team (Late Contact Info) Description 12/08/2023 External Device Data STL ABSTRACTION Provider, Abstract [...] (Late Contact Info) Description 08/04/2024 1:00 PM RESIDENCE SUPERVISOR Appointment [facility] 2nd [place] [address] [place] [address] Aviva Humphries MD [address] [place] [address] Infusion Chair 5, 2nd Floor Hall 08/25/2024 1:00 PM RESIDENCE SUPERVISOR [facility] On[facility] Hall [address] [place] [address] Edilia Pettit, CHELY [address] [facility] [address] [place] [address] 08/25/2024 1:30 PM RESIDENCE SUPERVISOR Appointment [facility] 2nd Fl [address] [place] [address] Aviva Humphries MD [address] [facility] [address] [place] [address] Infusion Chair 1, 2nd Floor [place] 09/01/2024 10:45 AM RESIDENCE SUPERVISOR Appointment [facility] Nuclear Medicine [address] [place] [address] [id number] Edilia Pettit, CHELY [address] [facility] [address] [place] [address] documented as of this encounter Visit Diagnoses Not on filedocumented in this encounter Care Teams Machine Joiner Cementer Relationship Specialty Start Date End Date Shilo Soares MD [address] [place] [address] PCP - General Internal Medicine 04/24/23 documented as of this encounter
--- OUTSIDE RECORDS SUMMARY | 2024-07-26 23:54 | XMS_ITS | Encounter Summary ---
Author Organization [facility] Address [address] [place] [address] Care Team Providers Care Dentist Name Role Phone Shilo Soares MD Primary Care Provider [phone] Encounter Details Date Type Department Care Team (Late Contact Info) Description 12/05/2023 External Device Data STL ABSTRACTION Provider, Abstract [...] (Late Contact Info) Description 08/04/2024 1:00 PM TOURIST ADVISER Appointment [facility] 2nd [place] [address] [place] [address] Aviva Humphries MD [address] [place] [address] Infusion Chair 5, 2nd Floor Hall 08/25/2024 1:00 PM TOURIST ADVISER Office Visit [facility] Gynecologic Oncology Hall [address] [place] [address] Edilia Pettit, CHELY [address] [facility] [facility] [address] [place] [address] 08/25/2024 1:30 PM TOURIST ADVISER Appointment [facility] 2nd Fl [address] [place] [address] Aviva Humphries MD [address] [facility] [address] [place] [address] Infusion Chair 1, 2nd Floor [place] 09/01/2024 10:45 AM TOURIST ADVISER Appointment [facility] Nuclear Medicine [address] [place] [address] [id number] Edilia Pettit, CHELY [address] [facility] [address] [place] [address] documented as of this encounter Visit Diagnoses Not on filedocumented in this encounter Care Teams Dentist Relationship Specialty Start Date End Date Shilo Soares MD [address] [place] [address] PCP - General Internal Medicine 04/24/23 documented as of this encounter
--- OUTSIDE RECORDS SUMMARY | 2024-07-26 23:54 | XMS_ITS | Encounter Summary ---
Author Organization [facility] Address [address] [place] [address] Care Team Providers Care Team Otr Truck Driver Name Role Phone Shilo Soares MD Primary Care Provider [phone] Encounter Details Date Type Department Care Team [...] (Late Contact Info) Description 08/04/2024 1:00 PM KILN OPERATOR HELPER Appointment [facility] 2nd [place] [address] [place] [address] Aviva Humphries MD [address] [place] [address] Infusion Chair 5, 2nd Floor Hall 08/25/2024 1:00 PM KILN OPERATOR HELPER Office Visit [facility] Gynecologic Oncology Hall [address] [place] [address] Edilia Pettit, CHELY [address] [facility] [address] [place] [address] 08/25/2024 1:30 PM KILN OPERATOR HELPER Appointment [facility] 2nd Fl [address] [place] [address] Aviva Humphries MD [address] [address] [facility] [address] [place] [address] Infusion Chair 1, 2nd Floor [place] 09/01/2024 10:45 AM KILN OPERATOR HELPER Appointment [facility] Nuclear Medicine [address] [place] [address] [id number] Edilia Pettit, CHELY [address] [facility] [address] [place] [address] documented as of this encounter Visit Diagnoses Not on filedocumented in this encounter Care Teams Team Otr Truck Driver Relationship Specialty Start Date End Date Shilo Soares MD [address] [place] [address] PCP - General Internal Medicine 04/24/23 documented as of this encounter
--- OUTSIDE RECORDS SUMMARY | 2024-07-26 23:54 | XMS_ITS | Encounter Summary ---
Author Organization Address [address] [place] [address] Care Team Providers Care Ergonomics Engineer Name Role Phone Shilo Soares MD Primary Care Provider [phone] Encounter Details Date Type Department Care Team [...] (Late Contact Info) Description 08/04/2024 1:00 PM WATCH CRYSTAL EDGE GRINDER Appointment [facility] 2nd [place] [address] [place] [address] Aviva Humphries MD [address] [place] [address] Infusion Chair 5, 2nd Floor Hall 08/25/2024 1:00 PM WATCH CRYSTAL EDGE GRINDER Office Visit [facility] Gynecologic Oncology Hall [address] [place] [address] Edilia Pettit, CHELY [address] [address] [place] [address] 08/25/2024 1:30 PM WATCH CRYSTAL EDGE GRINDER Appointment [facility] 2nd Fl [address] [place] [address] Aviva Humphries MD [address] [facility] [address] [facility] [address] [place] [address] Infusion Chair 1, 2nd Floor [place] 09/01/2024 10:45 AM WATCH CRYSTAL EDGE GRINDER Appointment [facility] Nuclear Medicine [address] [place] [address] [id number] Edilia Pettit, CHELY [address] [facility] [address] [place] [address] documented as of this encounter Visit Diagnoses Not on filedocumented in this encounter Care Teams Ergonomics Engineer Relationship Specialty Start Date End Date Shilo Soares MD [address] [place] [address] PCP - General Internal Medicine 04/24/23 documented as of this encounter
--- OUTSIDE RECORDS SUMMARY | 2024-07-26 23:54 | XMS_ITS | Encounter Summary ---
Author Organization [facility] Address [address] [place] [address] Care Team Providers Care Direct Care Worker Name Role Phone Shilo Soares MD Primary Care Provider [phone] Encounter Details Date Type Department Care Team [...] (Late Contact Info) Description 08/04/2024 1:00 PM LAMINATING MACHINE FEEDER Appointment [facility] 2nd Nd [address] [place] [address] Aviva Humphries MD [address] [place] [address] Infusion Chair 5, 2nd Floor Hall 08/25/2024 1:00 PM LAMINATING MACHINE FEEDER Office Visit [facility] Gynecologic Oncology Hall [address] [place] [address] Edilia Pettit, CHELY [address] [facility] [address] [place] [address] 08/25/2024 1:30 PM LAMINATING MACHINE FEEDER Appointment [facility] 2nd Fl [address] [place] [address] Aviva Humphries MD [address] [facility] [address] [place] [address] Infusion Chair 1, 2nd Floor [place] 09/01/2024 10:45 AM LAMINATING MACHINE FEEDER Appointment [facility] Nuclear Medicine [address] [place] [address] [id number] Edilia Pettit, CHELY [address] [facility] [address] [place] [address] documented as of this encounter Visit Diagnoses Not on filedocumented in this encounter Care Teams Direct Care Worker Relationship Specialty Start Date End Date Shilo Soares MD [address] [place] [address] PCP - General Internal Medicine 04/24/23 documented as of this encounter
--- OUTSIDE RECORDS SUMMARY | 2024-07-26 23:54 | XMS_ITS | Encounter Summary ---
Author Organization [facility] Address [address] [place] [address] Care Team Providers Care Presentation Designer Name Role Phone Shilo Soares MD Primary Care Provider [phone] Encounter Details Date Type Department Care Team [...] (Late Contact Info) Description 08/04/2024 1:00 PM MUD WORKER Appointment [facility] 2nd [place] [address] [place] [address] Aviva Humphries MD [address] [place] [address] Infusion Chair 5, 2nd Floor Hall 08/25/2024 1:00 PM MUD WORKER Office Visit [facility] Gynecologic Oncology Hall [address] [place] [address] Edilia Pettit, CHELY [address] [place] [address] 08/25/2024 1:30 PM MUD WORKER Appointment [facility] 2nd Fl [address] [place] [address] Aviva Humphries MD [address] [facility] [address] [address] [place] [address] Infusion Chair 1, 2nd Floor [place] 09/01/2024 10:45 AM MUD WORKER Appointment [facility] Nuclear Medicine [address] [place] [address] [id number] Edilia Pettit, CHELY [address] [facility] [address] [place] [address] documented as of this encounter Visit Diagnoses Not on filedocumented in this encounter Care Teams Presentation Designer Relationship Specialty Start Date End Date Shilo Soares MD [address] [place] [address] PCP - General Internal Medicine 04/24/23 documented as of this encounter
--- OUTSIDE RECORDS SUMMARY | 2024-07-26 23:54 | XMS_ITS | Encounter Summary ---
Author Organization [facility] Address [address] [place] [address] Care Team Providers Care Electrician Second Name Role Phone Shilo Soares MD Primary Care Provider [phone] Encounter Details Date Type Department Care Team [...] Contact Info) Description 08/04/2024 1:00 PM CORE STACKER Appointment [facility] 2nd [place] [address] [place] [address] Aviva Humphries MD [address] [place] [address] Infusion Chair 5, 2nd Floor Hall 08/25/2024 1:00 PM CORE STACKER Office Visit [facility] Gynecologic Oncology Hall [address] [place] [address] Edilia Pettit, CHELY [address] [facility] [address] [place] [address] 08/25/2024 1:30 PM CORE STACKER Appointment [facility] 2nd Fl [address] [place] [address] Aviva Humphries MD [address] [facility] [address] [facility] [address] [place] [address] Infusion Chair 1, 2nd Floor [place] 09/01/2024 10:45 AM CORE STACKER Appointment [facility] Nuclear Medicine [address] [place] [address] [phone] Edilia Pettit, CHELY [address] [facility] [address] [place] [address] documented as of this encounter Visit Diagnoses Not on filedocumented in this encounter Care Teams Electrician Second Relationship Specialty Start Date End Date Shilo Soares MD [address] [place] [address] PCP - General Internal Medicine 04/24/23 documented as of this encounter
--- OUTSIDE RECORDS SUMMARY | 2024-07-26 23:54 | XMS_ITS | Encounter Summary ---
Author Organization [facility] Address [address] [place] [address] Care Team Providers Care Spray Pilot Name Role Phone Shilo Soares MD Primary Care Provider [phone] Encounter Details Date Type Department Care Team [...] (Late Contact Info) Description 08/04/2024 1:00 PM SAP BW ARCHITECT Appointment [facility] 2nd Ca [address] [place] [address] Aviva Humphries MD [address] [place] [address] Infusion Chair 5, 2nd Floor Hall 08/25/2024 1:00 PM SAP BW ARCHITECT Office Visit [facility] Gynecologic Oncology Hall [address] [place] [address] Edilia Pettit, CHELY [address] [facility] [address] [place] [address] 08/25/2024 1:30 PM SAP BW ARCHITECT Appointment [facility] 2nd Fl [address] [place] [address] Aviva Humphries MD [address] [facility] [address] [facility] [address] [place] [address] Infusion Chair 1, 2nd Floor [place] 09/01/2024 10:45 AM SAP BW ARCHITECT Appointment [facility] Nuclear Medicine [address] [place] [address] [phone] Edilia Pettit, CHELY [address] [facility] [address] [place] [address] documented as of this encounter Visit Diagnoses Not on filedocumented in this encounter Care Teams Spray Pilot Relationship Specialty Start Date End Date Shilo Soares MD [address] [place] [address] PCP - General Internal Medicine 04/24/23 documented as of this encounter
--- OUTSIDE RECORDS SUMMARY | 2024-07-26 23:54 | XMS_ITS | Encounter Summary ---
Author Organization [facility] Address [address] [place] [address] Care Team Providers Care Lineman Apprentice Name Role Phone Shilo Soares MD Primary Care Provider [phone] Encounter Details Date Type Department Care Team [...] Contact Info) Description 08/04/2024 1:00 PM ASSEMBLER FILTERS Appointment [facility] [address] [place] [address] Aviva Humphries MD [address] [place] [address] Infusion Chair 5, 2nd Floor Hall 08/25/2024 1:00 PM ASSEMBLER FILTERS Office Visit [facility] Gynecologic Oncology Hall [address] [place] [address] Edilia Pettit, CHELY [address] [place] [address] 08/25/2024 1:30 PM ASSEMBLER FILTERS Appointment [facility] 2nd Fl [address] [place] [address] Aviva Humphries MD [address] [place] [address] Infusion Chair 1, 2nd Floor [place] 09/01/2024 10:45 AM ASSEMBLER FILTERS Appointment [facility] Nuclear Medicine [address] [place] [address] [id number] Edilia Pettit, CHELY [address] [facility] [address] [place] [address] documented as of this encounter Visit Diagnoses Not on filedocumented in this encounter Care Teams Lineman Apprentice Relationship Specialty Start Date End Date Shilo Soares MD [address] [place] [address] PCP - General Internal Medicine 04/24/23 documented as of this encounter
--- OUTSIDE RECORDS SUMMARY | 2024-07-26 23:54 | XMS_ITS | Encounter Summary ---
Author Organization [facility] Address [address] [place] [address] Care Team Providers Care Presales Senior Specialist Name Role Phone Shilo Soares MD Primary Care Provider [phone] Encounter Details Date Type Department Care Team [...] Contact Info) Description 08/04/2024 1:00 PM RN CLINICAL Appointment [facility] 2nd [place] [address] [place] [address] Aviva Humphries MD [address] [place] [address] Infusion Chair 5, 2nd Floor Hall 08/25/2024 1:00 PM RN CLINICAL Office Visit [facility] Gynecologic Oncology Hall [address] [place] [address] Edilia Pettit, CHELY [address] [place] [address] 08/25/2024 1:30 PM RN CLINICAL Appointment [facility] 2nd Fl [address] [place] [address] Aviva Humphries MD [address] [place] [address] Infusion Chair 1, 2nd Floor [place] 09/01/2024 10:45 AM RN CLINICAL Appointment [facility] Nuclear Medicine [address] [place] [address] [id number] Edilia Pettit, CHELY [address] [facility] [address] [place] [address] documented as of this encounter Visit Diagnoses Not on filedocumented in this encounter Care Teams Presales Senior Specialist Relationship Specialty Start Date End Date Shilo Soares MD [address] [place] [address] PCP - General Internal Medicine 04/24/23 documented as of this encounter
--- OUTSIDE RECORDS SUMMARY | 2024-07-26 23:54 | XMS_ITS | Encounter Summary ---
Author Organization [facility] Address [address] [place] [address] Care Team Providers Care Scudding Inspector Name Role Phone Shilo Soares MD Primary Care Provider [phone] Encounter Details Date Type Department Care Team [...] (Late Contact Info) Description 08/04/2024 1:00 PM AIR DIRECTOR Appointment [facility] 2[facility] [place] [address] [place] [address] Aviva Humphries MD [address] [place] [address] Infusion Chair 5, 2nd Floor Hall 08/25/2024 1:00 PM AIR DIRECTOR Office Visit [facility] Gynecologic Oncology Hall [address] [place] [address] Edilia Pettit, CHELY [address] [place] [address] 08/25/2024 1:30 PM AIR DIRECTOR Appointment [facility] 2nd Fl [address] [place] [address] Aviva Humphries MD [address] [place] [address] Infusion Chair 1, 2nd Floor [place] 09/01/2024 10:45 AM AIR DIRECTOR Appointment [facility] Nuclear Medicine [address] [place] [address] [id number] Edilia Pettit, CHELY [address] [facility] [address] [place] [address] documented as of this encounter Visit Diagnoses Not on filedocumented in this encounter Care Teams Scudding Inspector Relationship Specialty Start Date End Date Shilo Soares MD [address] [place] [address] PCP - General Internal Medicine 04/24/23 documented as of this encounter
--- OUTSIDE RECORDS SUMMARY | 2024-07-26 23:54 | XMS_ITS | Encounter Summary ---
Author Organization [facility] Address [address] [place] [address] Care Team Providers Care County Home Demonstration Agent Name Role Phone Shilo Soares MD Primary Care Provider [phone] Encounter Details Date Type Department Care Team [...] (Late Contact Info) Description 08/04/2024 1:00 PM SET AND EXHIBIT DESIGNER Appointment [facility] 2nd [place] [address] [place] [address] Aviva Humphries MD [address] [place] [address] Infusion Chair 5, 2nd Floor Hall 08/25/2024 1:00 PM SET AND EXHIBIT DESIGNER Office Visit [facility] Gynecologic Oncology Hall [address] [place] [address] Edilia Pettit, CHELY [address] [place] [address] 08/25/2024 1:30 PM SET AND EXHIBIT DESIGNER Appointment [facility] 2nd Fl [address] [place] [address] Aviva Humphries MD [address] [place] [address] Infusion Chair 1, 2nd Floor [place] 09/01/2024 10:45 AM SET AND EXHIBIT DESIGNER Appointment [facility] Nuclear Medicine [address] [place] [address] [id number] Edilia Pettit, CHELY [address] [facility] [address] [place] [address] documented as of this encounter Visit Diagnoses Not on filedocumented in this encounter Care Teams County Home Demonstration Agent Relationship Specialty Start Date End Date Shilo Soares MD [address] [place] [address] PCP - General Internal Medicine 04/24/23 documented as of this encounter
--- OUTSIDE RECORDS SUMMARY | 2024-07-26 23:54 | XMS_ITS | Encounter Summary ---
Author Organization [facility] Address [address] [place] [address] Care Team Providers Care Record Press Supervisor Name Role Phone Shilo Soares MD Primary Care Provider [phone] Encounter Details Date Type Department Care Team [...] (Late Contact Info) Description 08/04/2024 1:00 PM PUMP STATION OPERATOR Appointment [facility] 2[facility] [place] [address] [place] [address] Aviva Humphries MD [address] [place] [address] Infusion Chair 5, 2nd Floor Hall 08/25/2024 1:00 PM PUMP STATION OPERATOR Office Visit [facility] Gynecologic Oncology Hall [address] [place] [address] Edilia Pettit, CHELY [address] [place] [address] 08/25/2024 1:30 PM PUMP STATION OPERATOR Appointment [facility] 2nd Fl [address] [place] [address] Aviva Humphries MD [address] [place] [address] Infusion Chair 1, 2nd Floor [place] 09/01/2024 10:45 AM PUMP STATION OPERATOR Appointment [facility] Nuclear Medicine [address] [place] [address] [id number] Edilia Pettit, CHELY [address] [facility] [address] [place] [address] documented as of this encounter Visit Diagnoses Not on filedocumented in this encounter Care Teams Record Press Supervisor Relationship Specialty Start Date End Date Shilo Soares MD [address] [place] [address] PCP - General Internal Medicine 04/24/23 documented as of this encounter
--- OUTSIDE RECORDS SUMMARY | 2024-07-26 23:54 | XMS_ITS | Encounter Summary ---
Author Organization [facility] Address [address] [place] [address] Care Team Providers Care Engineering Job Titles Name Role Phone Shilo Soares MD Primary Care Provider [phone] Encounter Details Date Type Department Care Team [...] Contact Info) Description 08/04/2024 1:00 PM CODING CONSULTANT Appointment [facility] 2[facility] [place] [address] [place] [address] Aviva Humphries MD [address] [place] [address] Infusion Chair 5, 2nd Floor Hall 08/25/2024 1:00 PM CODING CONSULTANT Office Visit [facility] Gynecologic Oncology Hall [address] [place] [address] Edilia Pettit, CHELY [address] [place] [address] 08/25/2024 1:30 PM CODING CONSULTANT Appointment [facility] 2nd Fl [address] [place] [address] Aviva Humphries MD [address] [place] [address] Infusion Chair 1, 2nd Floor [place] 09/01/2024 10:45 AM CODING CONSULTANT Appointment [facility] Nuclear Medicine [address] [place] [address] [id number] Edilia Pettit, CHELY [address] [facility] [address] [place] [address] documented as of this encounter Visit Diagnoses Not on filedocumented in this encounter Care Teams Engineering Job Titles Relationship Specialty Start Date End Date Shilo Soares MD [address] [place] [address] PCP - General Internal Medicine 04/24/23 documented as of this encounter
--- OUTSIDE RECORDS SUMMARY | 2024-07-26 23:54 | XMS_ITS | Encounter Summary ---
Author Organization [facility] Address [address] [place] [address] Care Team Providers Care Printing Table Worker Name Role Phone Shilo Soares MD Primary Care Provider [phone] Encounter Details Date Type Department Care Team [...] (Late Contact Info) Description 08/04/2024 1:00 PM AGILE PROJECT MANAGER Appointment [facility] 2nd [place] [address] [place] [address] Aviva Humphries MD [address] [place] [address] Infusion Chair 5, 2nd Floor Hall 08/25/2024 1:00 PM AGILE PROJECT MANAGER Office Visit [facility] Gynecologic Oncology Hall [address] [place] [address] Edilia Pettit, CHELY [address] [place] [address] 08/25/2024 1:30 PM AGILE PROJECT MANAGER Appointment [facility] 2nd Fl [address] [place] [address] Aviva Humphries MD [address] [place] [address] Infusion Chair 1, 2nd Floor [place] 09/01/2024 10:45 AM AGILE PROJECT MANAGER Appointment [facility] Nuclear Medicine [address] [place] [address] [id number] Edliia Pettit, CHELY [address] [facility] [address] [place] [address] documented as of this encounter Visit Diagnoses Not on filedocumented in this encounter Care Teams Printing Table Worker Relationship Specialty Start Date End Date Shilo Soares MD [address] [place] [address] PCP - General Internal Medicine 04/24/23 documented as of this encounter
--- OUTSIDE RECORDS SUMMARY | 2024-07-26 23:55 | XMS_ITS | Encounter Summary ---
Author Organization [facility] Address [address] [place] [address] Care Team Providers Care Metal Spinner Name Role Phone Shilo Soares MD Primary Care Provider [phone] Reason for Referral * CT Scan (Routine) - Closed Specialty Diagnoses / Procedures Referred By Alison gomez Referred To Contact Diagnoses Malignant neoplasm of ovary, unspecified laterality Procedures CT CHEST ABDOMEN PELVIS W Edilia Gilbert NP [address] [place] [address] [facility] Ct Scan [address] [facility] [address] [place] [address] Referral ID Status Reason Start Date Expiration Date Visits Re quested Visits Authorized [id number] Closed 11/16/2023 12/16/2024 1 1 Reason for Visit * Reason Comments Post Chemo Encounter Details Date Type Department Care Team (Late st Contact Info) Description 11/16/2023 10:00 AM CDT Office Visit [facility] Gynecologic Oncology Hall [address] [place] [address] Aviva Humphries MD [address] [place] [address] Malignant neoplasm of ovary, unspecified laterality (Primary Dx); Chemotherapy follow-up examination Social History Tobacco Use Types Packs/Day Years [...] Sign Reading Time Taken Comments Blood Pressure 149/91 11/16/2023 9:48 AM CDT Pulse 93 11/16/2023 9:48 AM CDT Temperature 36.9 ??C (98.5 ??F) 11/16/2023 9:48 AM CD T Respiratory Rate - - Oxygen Saturation 97% 11/16/2023 9:48 AM CDT Inhaled Oxygen Concentration - - Weight 49.5 kg (109 lb 3.2 oz) 11/16/2023 9:48 A M CDT Height 167.6 cm (5' 6 ) 11/16/2023 9:48 AM CDT Body Mass Index 17.63 11/16/2023 9:48 AM CDT documented in this encounter Progress Notes * Aviva Humphries MD - 11/16/2023 9:56 AM CDT Images from the original note were not included. [facility] GYNECOLOGIC ONCOLOGY OFFICE VISIT 11/16/2023November Eileen Tiarra REFERRING PROVIDER: Dr. Barnard ref. provider found PRIMARY CARE PROVIDER: Shilo Harley MD RETURN PATIENT VISIT Cancer Staging Ovarian cancer Staging form: Ovary, Fallopian Tube, and Primary Peritoneal Carcinoma, AJCC 8th Edition - Clinical stage from 05/13/2023: FIGO Stage IVB - Signed by Aviva Humphries MD on 05/13/2023 Oncology History: 03/2023 presented to [facility] with abdominal distension; CT showed 11.6cm [...] chemotherapy; 10/15/23 completion of therapy Current Therapy: to discuss maintenance therapy; bevacizumab 15mg/m2 q21 days + olaparib 300mg [...] Narda via telephone on 09/02/2023. Last exam: 07/22/23 Code Status/AD: not addressed Chief complaint: I [...] was sen by Dr. Rodgers in Medical Oncology[facility] 04/29/23 who ordered additional work up and referred to fiber optics engineer oncology. CT chest did not show metastatic disease. CA-125 was performed at elevated at 751. 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 She was started on NACT with carbo/taxol/sima as noted above. She underwent surgical debulking with me as noted above. She has resumed post-operative chemotherapy and is here today prior to cycle #5. Continues to tolerate treatment fairly well. Has noted some new vaginal discharge/bleeding. It is not a significant amount but does require use of a panty-liner daily. Neuropathy is manageable. No other specific concerns today. Looking forward to being done with treatment. Weight trend 05/13/23 113 lbs 07/22/23 101 lbs 08/19/23 99lbs (96lbs at discharge) 09/23/23 104lbs Lab Results Component Value Date/Time CA125 8 11/05/2023 09:18 AM CA125 6 10/15/2023 07:43 AM CA125 7 09/23/2023 02:18 PM CA125 9 09/03/2023 08:04 AM CA125 32 07/09/2023 09:01 AM CA125 57 (H) 06/18/2023 08:16 AM CA125 304.0 (H) 05/28/2023 07:30 AM Review of Systems Constitutional: Negative for fever, malaise/fatigue and weight loss. Respiratory: Negative for cough and shortness of breath. Cardiovascular: [...] to show a complete pinpoint, stellate lumen. Specialty Cook sections are submitted in cassettes labeled A1-anterior cervix; A2-anterior polyp, submitted entirely; A3-anterior endomyometrium; A4-posterior cervix; A5-posterior endomyometrium; A6-left ovary; A7-left fallopian tube, fimbria submitted entirely; A8-presumed right fallopian tube, fimbria submitted entirely; A9 through X27-bhvldv mass (2 sections in each cassette) with mucinous component in 9-10. Received in the second container additionally labeled omentum are 2 irregular fragments of calhoun-yellow to red-brown lobulated omentum measuring 35.8 x 6 x 2 cm in aggregate. Sections show a calhoun-yellow, fatty cut surface containing multiple pink-cancino firm nodules measuring up to 1.8 cm in greatest dimension. Specialty Cook sections are submitted in cassettes labeled B1 [...] SMB MICROSCOPIC DESCRIPTION The slides are labeled [id number] and November. Sections of the salpingo-oophorectomy (A) [...] heterogeneity, focal positivity for ER, and rare PA positivity. Negative staining is observed for WT1 and CK20. Although weak patchy positivity for AMACR and Napsin A,and focal positivity for ER and rare PA positivity are unusual for clear cell carcinoma, [...] Component FINAL DIAGNOSIS [place] [address] (OSC [id number]; 04/29/2023 and [id number]; 05/06/2023) [id number] Ascites fluid, cytologic examination: - CK7 positive adenocarcinoma. [id number] Lymph node, right inguinal, biopsy: - Metastatic carcinoma most compatible with high-grade serous carcinoma. See comment. at 1237 MICROSCOPIC DESCRIPTION Received are slides labeled [id number] and [id number] and Narda Joel Mayen. Microscopic examination of [...] origin. Sections of the lymph node biopsy ([id number]) show cores of lymph node involved by [...] CYSTOURETHROSCOPY performed by Aviva Humphries MD at [facility] OR [facility] HX BLADDER REPAIR N/A 08/06/2023 BLADDER REPAIR performed by Aviva Humphries MD at [facility] OR [facility] HX BUNIONECTOMY Bilateral 2009 HX SECTION 1982,1985,1994 HX PORTACATH PLACEMENT Right 2022 HX URETEROLYSIS Bilateral 08/06/2023 URETEROLYSIS performed by Aviva Humphries MD at [facility] OR [facility] PA BX/EXC LYMPH NODE OPEN SUPERFICIAL Right 08/06/2023 INGUINAL OR FEMORAL LYMPH NODE BIOPSY/EXCISION performed by Aviva Humphries MD at [facility] OR [facility] PA LAPAROSCOPY W/RMVL ADNEXAL STRUCTURES N/A 08/06/2023 SALPINGO-OOPHORECTOMY LAPAROSCOPIC performed by Aviva Humphries MD at [facility] OR [facility] PA OMNTC EPIPLOECTOMY RESCJ OMENTUM SPX N/A 08/06/2023 OMENTECTOMY performed by Aviva Humphries MD at [facility] OR [facility] PA TOTAL ABDOMINAL HYSTERECT W/WO RMVL TUBE OVARY N/A 08/06/2023 HYSTERECTOMY ABDOMINAL TOTAL performed by Aviva Humphries MD at [facility] OR [facility] PA UNLISTED PROCEDURE DIAPHRAGM N/A 08/06/2023 DIAPHRAGM BIOPSY performed by Aviva Humphries MD at [facility] OR [facility] Allergies Allergen Reactions Penicillins Rash Ciprofloxacin [...] , Rfl: fluticasone propionate (FLONASE) 50 mcg/spray [place], Suspension nasal inhaler, Administer 2 Sprays in each nostril daily., Disp: , Rfl: omega-3 fatty acids-fish oil 300-1,000 mg Capsule, Take 2 Capsules by mouth daily., Disp: , Rfl: olaparib 150 mg tablet, Take 2 Tablets (300 mg) by mouth 2 times daily., Disp: 120 Tablet, Rfl: 3 FAMILY HISTORY: Cancer-related family history includes Lung Cancer (age of onset: 60 - 69) in her father. No uterine, cervix, ovarian, breast or colon cancer OBHx: OB History No obstetric history on file. ; x3 PRINT INSPECTOR HISTORY: Abnml Pap: denies Menopause: 54ish; no bleeding Social: Social History Tobacco Use Smoking Status Every Day Current packs/day: 0.50 Average packs/day: 0.5 packs/day for 35.0 years (17.5 ttl pk-yrs) Types: Cigarettes Smokeless Tobacco Never TOBACCO COUNSELING She was counseled to discontinue tobacco/nicotine use. Down to half pack per day. 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 BP (!) 149/91 (BP Location: Left arm, Patient Position (BP): Sitting, BP Cuff Size: Small Adult) Pulse 93 Temp 98.5 ??F (36.9 ??C) (Oral) Ht 5' 6 (1.676 m) Wt 49.5 kg (109 lb 3.2 oz) LMP (LMP Unknown) SpO2 97% BMI 17.63 kg/m?? ECOG PS: 0 HEAD: Normocephalic, atraumatic. [...] lesions, RV septum clear, normal anal opening SPECULUM: cuff intact, physiologic discharge VAGINA: normal vaginal mucosa, no lesions, cuff now well healed and intact CERVIX: absent UTERUS: absent ADNEXA: no tenderness no palpable masses PRESCRIPTIONS WRITTEN THIS VISIT: Requested Prescriptions No prescriptions requested or ordered in this encounter ASSESSMENT and PLAN: 1. Malignant neoplasm of ovary, unspecified laterality CT CHEST ABDOMEN PELVIS W CONT 2. 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 She has completed 3 cycles of NACT with carbo/taxol/sima (held with cycle 3). She has undergone interval cytoreductive surgery to no gross residual disease. She completed 3 additional cycles of chemotherapy post surgery which was completed 10/15/23. Completion of primary treatment: 10/15/23 She is here today for post-treatment follow up and discussion of maintenance therapy. We reviewed her post-treatment CT scan which showed good response, a small nodule in the upper lungthat will require follow up. Given HRD+ will plan to start olaparib 300mg/m2 PO daily (for up to 24months) and continue bevacizumab 15mg/m2 q21 days (for up to 15 months) The results of the SELVIN-1/ENGOT-ov25 trial were reviewed: First PARPi trial to show clinically meaningful OS benefit in HRD+ (BRCA/non- BRCA) newly diagnosed advanced ovarian cancer. 5-Year OS rate in HRD+ disease was 66% with olaparib + bevacizumab versus 48% with placebo + bevacizumab. Forty-six percent of HRD+ patients receiving olaparib + bevacizumab were progression free at 5 years, versus 19% on bevacizumab alone. No new safety signals were observed, and the incidence of myelodysplastic syndrome/acute myeloid leukemia remained low. Will need weekly CBC x1 month after initiation of Olaparib treatment; then monthly thereafter. Will need to follow BP closely has been uptrending. She is seeing her PCP soon and I anticipate herstarting anti-HTN therapy. Return to clinic: f/u CTCAP in 3 mo to follow pulmonary nodule; 1-2mo in clinic--Edilia Pettit NP Thank you for involving [facility] Gynecologic Oncology in the care of this patient. Aviva Humphries MD documented in this encounter Plan of Treatment Upcoming Encounters Date Type Department Care Team (Late st Contact Info) Description 08/04/2024 1:00 PM PRINCIPAL JAVA DEVELOPER Appointment [facility] Infusion Center 2nd Ia [address] [place] [address] Aviva Humphries MD [address] [place] [address] Infusion Chair 5, 2nd Floor Hall 08/25/2024 1:00 PM PRINCIPAL JAVA DEVELOPER Office Visit [facility] Gynecologic Oncology Hall [address] [place] [address] Edilia Pettit NP [address] [place] [address] 08/25/2024 1:30 PM PRINCIPAL JAVA DEVELOPER Appointment [facility] Infusion Center 2nd Fl [address] [place] [address] Aviva Humphries MD [address] [facility] [address] [place] [address] Infusion Chair 1, 2nd Floor [place] 09/01/2024 10:45 AM PRINCIPAL JAVA DEVELOPER Appointment [facility] Nuclear Medicine [address] [place] [phone] [id number] Edilia Pettit NP [address] [facility] [address] [place] [address] documented as of this encounter [...] chest CT. DICTATION LOCATION: Location 1 - [facility] The examination was performed with the [...] the chest CT. DICTATION LOCATION: Location - [facility] The examination was performed with the adjustment of mA according to the patient size and/or the use of Iterative Reconstruction Technique. Edilia Pettit NP CT ORDERABLES documented in this encounter Visit Diagnoses Diagnosis Malignant neoplasm of ovary, unspecified laterality- Primary Chemotherapy follow-up examination Malignant neoplasm of ovary, unspecified laterality documented in this encounter Care Teams Metal Spinner Relationship Specialty Start Date End Date Shilo Soares MD [address] [place] [address] PCP - General Internal Medicine 04/24/23 documented as of this encounter
--- OUTSIDE RECORDS SUMMARY | 2024-07-26 23:55 | XMS_ITS | Encounter Summary ---
Author Organization [facility] Address [address] [place] [address] Care Team Providers Care Slubber Operator Name Role Phone Shilo Soares MD Primary Care Provider [phone] Encounter Details Date Type Department Care Team (Late Contact Info) Description 11/14/2023 External Device Data STL ABSTRACTION Provider, Abstract [...] (Late Contact Info) Description 08/04/2024 1:00 PM DOPE FIRER Appointment [facility] Infusion Center 2nd Ut [address] [place] [address] Aviva Humphries MD [address] [place] [address] Infusion Chair 5, 2nd Floor Hall 08/25/2024 1:00 PM DOPE FIRER Office Visit [facility] Gynecologic Oncology Hall [address] [place] [address] Edilia Pettit, CHELY [address] [facility] [address] [place] [phone] 08/25/2024 1:30 PM DOPE FIRER Appointment [facility] Infusion Center 2nd Fl [address] [place] [address] Aviva Humphries MD [address] [facility] [address] [place] [address] Infusion Chair 1, 2nd Floor [place] 09/01/2024 10:45 AM DOPE FIRER Appointment [facility] Nuclear Medicine [address] [place] [address] [id number] Edilia Pettit, CHELY [address] [facility] [address] [place] [address] documented as of this encounter Visit Diagnoses Not on filedocumented in this encounter Care Teams Slubber Operator Relationship Specialty Start Date End Date Shilo Soares MD [address] [place] [address] PCP - General Internal Medicine 04/24/23 documented as of this encounter
--- OUTSIDE RECORDS SUMMARY | 2024-07-26 23:55 | XMS_ITS | Encounter Summary ---
Author Organization [facility] Address [address] [place] [address] Care Team Providers Care Odd Shoe Examiner Name Role Phone Shilo Soares MD Primary Care Provider [phone] Encounter Details Date Type Department Care Team (Late st Contact Info) Description 11/18/2023 Specialty Pharmacy [facility] [place] [address] [facility] [address] [place] [address] Kaley Decker, PHARMACIST Specialty Pharmacy Prior Auth Coordination Social History Tobacco Use Types Packs/Day Years [...] as of this encounter Progress Notes * Nina Flores - 11/19/2023 12:20 PM CDT [facility] [place] Prior Authorization Approval Note Narda Arellano Tiarra 1960 Name of medication, strength, formulation: LYNPARZA 150MG TABLETS Quantity 120 for 30 days supply Prior authorization approval effective dates: from 11/18/23 to 11/16/24 Diagnosis & ICD 10 Code: OVARIAN Per Car Mechanic: KAILEY Additional information: MUST FILL W/ [facility] Approval letter scanned into chart. Completed by: Nina Flores documented in this encounter Plan of Treatment Upcoming Encounters Date Type Department Care Team (Late st Contact Info) Description 08/04/2024 1:00 PM BINDER STRIPPER HAND Appointment [facility] Infusion Center 2nd Fl [address] [place] [address] Aviva Humphries MD [address] [facility] [address] [place] [address] Infusion Chair 5, 2nd Floor Hall 08/25/2024 1:00 PM BINDER STRIPPER HAND Office Visit [facility] Gynecologic Oncology [place] [address] [facility] [address] [place] [address] Edilia Pettit, CHELY [address] [facility] [address] [place] [address] 08/25/2024 1:30 PM BINDER STRIPPER HAND Appointment [facility] Infusion Center 2nd Fl [address] [place] [address] Aviva Humphries MD [address] [facility] [address] [place] [address] Infusion Chair 1, 2nd Floor Hall 09/01/2024 10:45 AM BINDER STRIPPER HAND Appointment [facility] Nuclear Medicine [address] [place] [address] [id number] Edilia Pettit, CHELY [address] [facility] [address] [place] [address] documented as of this encounter Visit Diagnoses Not on filedocumented in this encounter Care Teams Odd Shoe Examiner Relationship Specialty Start Date End Date Shilo Soares MD [address] [place] [address] PCP - General Internal Medicine 04/24/23 documented as of this encounter
--- OUTSIDE RECORDS SUMMARY | 2024-07-26 23:55 | XMS_ITS | Encounter Summary ---
Author Organization [facility] Address [address] [place] [address] Care Team Providers Care Business Analytics Director Name Role Phone Shilo Soares MD Primary Care Provider [phone] Reason for Visit * Reason Onset Date Comments Medical question 11/23/2023 Encounter Details Date Type Department Care Team (Late st Contact Info) Description 11/23/2023 Telephone [facility] Gynecologic Oncology Hall [address] [facility] [address] [place] [address] Aviva Humphries MD [address] [facility] [address] [place] [address] Medical question Social History Tobacco Use Types Packs/Day Years [...] encounter Miscellaneous Notes * Telephone Encounter - Nae Harrington RN - 11/23/2023 8:56 AM CDT Pt sent my Endorphin message to see when to start Lynparza. Called and let her know she can start this AM. She is aware that she will need to have labs weekly x 4 and will F/U with Edilia Bhat in a month. She will call if any questions or concerns. documented in this encounter Plan of Treatment Upcoming Encounters Date Type Department Care Team (Late st Contact Info) Description 08/04/2024 1:00 PM MERCHANDISING INTERNSHIP Appointment [facility] Infusion Center [facility] [address] [place] [address] Aviva Humphries MD [address] [facility] [address] [place] [address] Infusion Chair 5, 2nd Floor [place] 08/25/2024 1:00 PM MERCHANDISING INTERNSHIP Office Visit [facility] Gynecologic Oncology [place] [address] [facility] [address] [place] [address] Edilia Pettit NP [address] [address] 08/25/2024 1:30 PM MERCHANDISING INTERNSHIP Appointment [facility] Infusion Center 2nd Fl [address] [place] [address] Aviva Humphries MD [address] [facility] [address] [place] [address] Infusion Chair 1, 2nd Floor Hall 09/01/2024 10:45 AM MERCHANDISING INTERNSHIP Appointment [facility] Nuclear Medicine [address] [place] [phone] [id number] Edilia Pettit NP [address] [facility] [address] [place] [address] Scheduled Orders Name Type Priority Associated Diagnoses Orde r Schedule CBC WITH DIFFERENTIAL Lab Stat Malignant neoplasm of ovary, unspecified laterality 1 TIME A WEEK for 4 Occurrences starting 11/23/2023 until 11/22/2024, 1 completed documented as of this encounter Results * (ABNORMAL) CBC WITH DIFFERENTIAL (12/09/2023 7:42 AM CDT) WBC 5.7 3.8 - 10.8 Thousand/ uL [facility] RBC 3.42(L) 3.80 - 5.10 Million/u L [facility] HEMOGLOBIN 11.5(L) 11.7 - 15.5 g/dL [facility] HEMATOCRIT 34.9(L) 35.0 - 45.0 % [facility] MCV 102.0(H) 80.0 - 100.0 fL [facility] MCH 33.6(H) 27.0 - 33.0 pg [facility] MCHC 33.0 32.0 - 36.0 g/dL [facility] RDW 16.5(H) 11.0 - 15.0 % [facility] PLATELETS 236 140 - 400 Thousand/ uL [facility] MPV 9.7 7.5 - 12.5 fL [facility] NEUTROPHIL ABSOLUTE 3,694 1,500 - 7,800 cells/uL [facility] LYMPHOCYTE ABSOLUTE 1,613 850 - 3,900 cells/uL [facility] MONOCYTE ABSOLUTE 308 200 - 950 cells/uL [facility] EOSINOPHIL ABSOLUTE 57 15 - 500 cells/uL [facility] BASOPHILS ABSOLUTE 29 0 - 200 cells/uL [facility] NEUTROPHIL 64.8 % [facility] LYMPHOCYTES 28.3 % [facility] MONOCYTE 5.4 % [facility] EOSINOPHILS 1.0 % [facility] BASOPHILS 0.5 % [facility] Comment: FASTING:NO FASTING: NO Test Performed at: [facility] [address] [place], [place] [facility] Blood 12/09/2023 7:42 AM CDT 12/09/2023 11:31 AM CDT Aviva Humphries MD HEMATOLOGY ORDERABLE S [facility] [phone] [place] [address] [place] [address] documented in this encounter Visit Diagnoses Diagnosis Malignant neoplasm of ovary, unspecified laterality- Primary documented in this encounter Care Teams Business Analytics Director Relationship Specialty Start Date End Date Shilo Soares MD [address] [place] [phone] PCP - General Internal Medicine 04/24/23 documented as of this encounter
--- OUTSIDE RECORDS SUMMARY | 2024-07-26 23:55 | XMS_ITS | Encounter Summary ---
Author Organization [facility] Address [address] [place] [address] Care Team Providers Care Chainstitch Sewing Machine Operator Name Role Phone Shilo Soares MD Primary Care Provider [phone] Encounter Details Date Type Department Care Team (Late Contact Info) Description 11/29/2023 External Device Data STL ABSTRACTION Provider, Abstract [...] (Late Contact Info) Description 08/04/2024 1:00 PM COMPENSATION AND BENEFITS ADMINISTRATOR Appointment [facility] Infusion Center 2nd Ca [address] [place] [address] Aviva Humphries MD [address] [place] [address] Infusion Chair 5, 2nd Floor Hall 08/25/2024 1:00 PM COMPENSATION AND BENEFITS ADMINISTRATOR Office Visit [facility] Gynecologic Oncology Hall [address] [place] [address] Edilia Pettit, CHELY [address] [place] [phone] 08/25/2024 1:30 PM COMPENSATION AND BENEFITS ADMINISTRATOR Appointment [facility] Infusion Center 2nd Fl [address] [place] [address] Aviva Humphries MD [address] [facility] [address] [place] [address] Infusion Chair 1, 2nd Floor [place] 09/01/2024 10:45 AM COMPENSATION AND BENEFITS ADMINISTRATOR Appointment [facility] Nuclear Medicine [address] [place] [address] [id number] Edilia Pettit, CHELY [address] [facility] [address] [place] [address] documented as of this encounter Visit Diagnoses Not on filedocumented in this encounter Care Teams Chainstitch Sewing Machine Operator Relationship Specialty Start Date End Date Shilo Soares MD [address] [place] [address] PCP - General Internal Medicine 04/24/23 documented as of this encounter
--- OUTSIDE RECORDS SUMMARY | 2024-07-26 23:55 | XMS_ITS | Encounter Summary ---
Author Organization [facility] Address [address] [place] [address] Care Team Providers Care Officer Captain Name Role Phone Shilo Soares MD Primary Care Provider [phone] Encounter Details Date Type Department Care Team (Late Contact Info) Description 11/16/2023 External Device Data STL ABSTRACTION Provider, Abstract [...] Contact Info) Description 08/04/2024 1:00 PM SENIOR BRAND MANAGER Appointment [facility] [address] [place] [address] Aviva Humphries MD [address] [place] [address] Infusion Chair 5, 2nd Floor Hall 08/25/2024 1:00 PM SENIOR BRAND MANAGER Office Visit [facility] Gynecologic Oncology Hall [address] [place] [address] Edilia Pettit, CHELY [address] [facility] [address] [place] [address] 08/25/2024 1:30 PM SENIOR BRAND MANAGER Appointment [facility] 2nd Fl [address] [place] [address] Aviva Humphries MD [address] [facility] [address] [place] [address] Infusion Chair 1, 2nd Floor [place] 09/01/2024 10:45 AM SENIOR BRAND MANAGER Appointment [facility] Nuclear Medicine [address] [place] [address] [id number] Edilia Pettit, CHELY [address] [facility] [address] [place] [address] documented as of this encounter Visit Diagnoses Not on filedocumented in this encounter Care Teams Officer Captain Relationship Specialty Start Date End Date Shilo Soares MD [address] [place] [address] PCP - General Internal Medicine 04/24/23 documented as of this encounter
--- OUTSIDE RECORDS SUMMARY | 2024-07-26 23:55 | XMS_ITS | Encounter Summary ---
Author Organization [facility] Address [address] [place] [address] Care Team Providers Care Hatchery Man Name Role Phone Shilo Soares MD Primary Care Provider [phone] Encounter Details Date Type Department Care Team (Late Contact Info) Description 11/17/2023 External Device Data STL ABSTRACTION Provider, Abstract [...] Description 08/04/2024 1:00 PM ASSOCIATE PROFESSOR OF AUTOMATION Appointment [facility] 2nd Nm [address] [place] [address] Aviva Humphries MD [address] [place] [address] Infusion Chair 5, 2nd Floor Hall 08/25/2024 1:00 PM ASSOCIATE PROFESSOR OF AUTOMATION Office Visit [facility] Gynecologic Oncology Hall [address] [place] [address] Edilia Pettit, CHELY [address] [facility] [address] [place] [address] 08/25/2024 1:30 PM ASSOCIATE PROFESSOR OF AUTOMATION Appointment [facility] 2nd Fl [address] [place] [address] Aviva Humphries MD [address] [place] [address] Infusion Chair 1, 2nd Floor [place] 09/01/2024 10:45 AM ASSOCIATE PROFESSOR OF AUTOMATION Appointment [facility] Nuclear Medicine [address] [place] [address] [id number] Edilia Pettit, CHELY [address] [facility] [address] [place] [address] documented as of this encounter Visit Diagnoses Not on filedocumented in this encounter Care Teams Hatchery Man Relationship Specialty Start Date End Date Shilo Soares MD [address] [place] [address] PCP - General Internal Medicine 04/24/23 documented as of this encounter
--- OUTSIDE RECORDS SUMMARY | 2024-07-26 23:55 | XMS_ITS | Encounter Summary ---
Author Organization [facility] Address [address] [place] [address] Care Team Providers Care Cloth Bale Header Name Role Phone Shilo Soares MD Primary Care Provider [phone] Encounter Details Date Type Department Care Team (Late Contact Info) Description 11/19/2023 External Device Data STL ABSTRACTION Provider, Abstract [...] (Late Contact Info) Description 08/04/2024 1:00 PM TWISTING FRAME CHANGER Appointment [facility] [place] [address] [place] [address] Aviva Humphries MD [address] [place] [address] Infusion Chair 5, 2nd Floor Hall 08/25/2024 1:00 PM TWISTING FRAME CHANGER Office Visit [facility] Gynecologic Oncology Hall [address] [place] [address] Edilia Pettit, CHELY [address] [facility] [address] [place] [address] 08/25/2024 1:30 PM TWISTING FRAME CHANGER Appointment [facility] 2nd Fl [address] [place] [address] Aviva Humphries MD [address] [place] [address] Infusion Chair 1, 2nd Floor [place] 09/01/2024 10:45 AM TWISTING FRAME CHANGER Appointment [facility] Nuclear Medicine [address] [place] [address] [id number] Edilia Pettit, CHELY [address] [facility] [address] [place] [address] documented as of this encounter Visit Diagnoses Not on filedocumented in this encounter Care Teams Cloth Bale Header Relationship Specialty Start Date End Date Shilo Soares MD [address] [place] [address] PCP - General Internal Medicine 04/24/23 documented as of this encounter
--- OUTSIDE RECORDS SUMMARY | 2024-07-26 23:55 | XMS_ITS | Encounter Summary ---
Author Organization [facility] Address [address] [place] [address] Care Team Providers Care Manager Multicultural Name Role Phone Shilo Soares MD Primary Care Provider [phone] Encounter Details Date Type Department Care Team (Late Contact Info) Description 11/10/2023 External Device Data STL ABSTRACTION Provider, Abstract [...] Contact Info) Description 08/04/2024 1:00 PM DIRECTOR SALES SUPPORT Appointment [facility] Ca [address] [place] [address] Aviva Humphries MD [address] [place] [address] Infusion Chair 5, 2nd Floor Hall 08/25/2024 1:00 PM DIRECTOR SALES SUPPORT Office Visit [facility] Gynecologic Oncology Hall [address] [place] [address] Edilia Pettit, CHELY [address] [place] [address] 08/25/2024 1:30 PM DIRECTOR SALES SUPPORT Appointment [facility] 2nd Fl [address] [place] [address] Aviva Humphries MD [address] [facility] [address] [place] [address] Infusion Chair 1, 2nd Floor [place] 09/01/2024 10:45 AM DIRECTOR SALES SUPPORT Appointment [facility] Nuclear Medicine [address] [place] [address] [id number] Edilia Pettit, CHELY [address] [facility] [address] [place] [address] documented as of this encounter Visit Diagnoses Not on filedocumented in this encounter Care Teams Manager Multicultural Relationship Specialty Start Date End Date Shilo Soares MD [address] [place] [address] PCP - General Internal Medicine 04/24/23 documented as of this encounter
--- OUTSIDE RECORDS SUMMARY | 2024-07-26 23:55 | XMS_ITS | Encounter Summary ---
Author Organization [facility] Address [address] [place] [address] Care Team Providers Care Educational Manager Name Role Phone Shilo Soares MD Primary Care Provider [phone] Encounter Details Date Type Department Care Team (Late Contact Info) Description 10/30/2023 External Device Data STL ABSTRACTION Provider, Abstract [...] Contact Info) Description 08/04/2024 1:00 PM FIRE AND SAFETY HELPER Appointment [facility] 2nd [place] [address] [place] [address] Aviva Humphries MD [address] [place] [address] Infusion Chair 5, 2nd Floor Hall 08/25/2024 1:00 PM FIRE AND SAFETY HELPER Office Visit [facility] Gynecologic Oncology Hall [address] [place] [address] Edilia Pettit, CHELY [address] [facility] [address] [place] [address] 08/25/2024 1:30 PM FIRE AND SAFETY HELPER Appointment [facility] 2nd Fl [address] [place] [address] Aviva Humphries MD [address] [place] [address] Infusion Chair 1, 2nd Floor [place] 09/01/2024 10:45 AM FIRE AND SAFETY HELPER Appointment [facility] Nuclear Medicine [address] [place] [address] [id number] Edilia Pettit, CHELY [address] [facility] [address] [place] [address] documented as of this encounter Visit Diagnoses Not on filedocumented in this encounter Care Teams Educational Manager Relationship Specialty Start Date End Date Shilo Soares MD [address] [place] [address] PCP - General Internal Medicine 04/24/23 documented as of this encounter
--- OUTSIDE RECORDS SUMMARY | 2024-07-26 23:55 | XMS_ITS | Encounter Summary ---
Author Organization [facility] Address [address] [place] [address] Care Team Providers Care Dairy Store Manager Name Role Phone Shilo Soares MD Primary Care Provider [phone] Encounter Details Date Type Department Care Team (Late Contact Info) Description 11/06/2023 External Device Data STL ABSTRACTION Provider, Abstract [...] (Late Contact Info) Description 08/04/2024 1:00 PM ASSISTANT GOLF COURSE SUPERINTENDENT Appointment [facility] 2nd [place] [address] [place] [address] Aviva Humphries MD [address] [place] [address] Infusion Chair 5, 2nd Floor Hall 08/25/2024 1:00 PM ASSISTANT GOLF COURSE SUPERINTENDENT Office Visit [facility] Gynecologic Oncology Hall [address] [place] [address] Edilia Pettit, CHELY [address] [facility] [address] [place] [address] 08/25/2024 1:30 PM ASSISTANT GOLF COURSE SUPERINTENDENT Appointment [facility] 2nd Fl [address] [place] [address] Aviva Humphries MD [address] [facility] [address] [place] [address] Infusion Chair 1, 2nd Floor [place] 09/01/2024 10:45 AM ASSISTANT GOLF COURSE SUPERINTENDENT Appointment [facility] Nuclear Medicine [address] [place] [address] [id number] Edilia Pettit, CHELY [address] [facility] [address] [place] [address] documented as of this encounter Visit Diagnoses Not on filedocumented in this encounter Care Teams Dairy Store Manager Relationship Specialty Start Date End Date Shilo Soares MD [address] [place] [address] PCP - General Internal Medicine 04/24/23 documented as of this encounter
--- OUTSIDE RECORDS SUMMARY | 2024-07-26 23:55 | XMS_ITS | Encounter Summary ---
Author Organization [facility] Address [address] [place] [address] Care Team Providers Care Speaker Mounter Name Role Phone Shilo Soares MD Primary Care Provider [phone] Encounter Details Date Type Department Care Team [...] Contact Info) Description 08/04/2024 1:00 PM TAPE FASTENER MACHINE OPERATOR Appointment [facility] 2nd In [address] [place] [address] Aviva Humphries MD [address] [place] [address] Infusion Chair 5, 2nd Floor Hall 08/25/2024 1:00 PM TAPE FASTENER MACHINE OPERATOR Office Visit [facility] Gynecologic Oncology Hall [address] [place] [address] Edilia Pettit, CHELY [address] [place] [address] 08/25/2024 1:30 PM TAPE FASTENER MACHINE OPERATOR Appointment [facility] 2nd Fl [address] [place] [address] Aviva Humphries MD [address] [facility] [address] [place] [address] Infusion Chair 1, 2nd Floor [place] 09/01/2024 10:45 AM TAPE FASTENER MACHINE OPERATOR Appointment [facility] Nuclear Medicine [address] [place] [address] [id number] Edilia Pettit, CHELY [address] [facility] [address] [place] [address] documented as of this encounter Visit Diagnoses Not on filedocumented in this encounter Care Teams Speaker Mounter Relationship Specialty Start Date End Date Shilo Soares MD [address] [place] [address] PCP - General Internal Medicine 04/24/23 documented as of this encounter
--- OUTSIDE RECORDS SUMMARY | 2024-07-26 23:55 | XMS_ITS | Encounter Summary ---
Author Organization [facility] Address [address] [place] [address] Care Team Providers Care Dance Choreographer Name Role Phone Shilo Soares MD Primary Care Provider [phone] Encounter Details Date Type Department Care Team (Late Contact Info) Description 11/28/2023 External Device Data STL ABSTRACTION Provider, Abstract [...] (Late Contact Info) Description 08/04/2024 1:00 PM SOCIAL SERVICE COORDINATOR Appointment [facility] 2nd [place] [address] [place] [address] Aviva Humphries MD [address] [place] [address] Infusion Chair 5, 2nd Floor Hall 08/25/2024 1:00 PM SOCIAL SERVICE COORDINATOR Office Visit [facility] Gynecologic Oncology Hall [address] [place] [address] Edilia Pettit, CHELY [address] [facility] [address] [place] [address] 08/25/2024 1:30 PM SOCIAL SERVICE COORDINATOR Appointment [facility] 2nd Fl [address] [place] [address] Aviva Humphries MD [address] [place] [address] Infusion Chair 1, 2nd Floor [place] 09/01/2024 10:45 AM SOCIAL SERVICE COORDINATOR Appointment [facility] Nuclear Medicine [address] [place] [address] [phone] Edilia Pettit, CHELY [address] [facility] [address] [place] [address] documented as of this encounter Visit Diagnoses Not on filedocumented in this encounter Care Teams Dance Choreographer Relationship Specialty Start Date End Date Shilo Soares MD [address] [place] [address] PCP - General Internal Medicine 04/24/23 documented as of this encounter
--- OUTSIDE RECORDS SUMMARY | 2024-07-26 23:55 | XMS_ITS | Encounter Summary ---
Author Organization [facility] Address [address] [place] [address] Care Team Providers Care Services Program Manager Name Role Phone Shilo Soares MD Primary Care Provider [phone] Encounter Details Date Type Department Care Team [...] Contact Info) Description 08/04/2024 1:00 PM TEACHER DRAMATICS Appointment [facility] 2nd Ri [address] [place] [address] Aviva Humphries MD [address] [place] [address] Infusion Chair 5, 2nd Floor Hall 08/25/2024 1:00 PM TEACHER DRAMATICS Office Visit [facility] Gynecologic Oncology Hall [address] [place] [address] Edilia Pettit, CHELY [address] [address] [place] [address] 08/25/2024 1:30 PM TEACHER DRAMATICS Appointment [facility] 2nd Fl [address] [place] [address] Aviva Humphries MD [address] [place] [address] Infusion Chair 1, 2nd Floor [place] 09/01/2024 10:45 AM TEACHER DRAMATICS Appointment [facility] Nuclear Medicine [address] [place] [address] [id number] Edilia Pettit, CHELY [address] [facility] [address] [place] [address] documented as of this encounter Visit Diagnoses Not on filedocumented in this encounter Care Teams Services Program Manager Relationship Specialty Start Date End Date Shilo Soares MD [address] [place] [address] PCP - General Internal Medicine 04/24/23 documented as of this encounter
--- OUTSIDE RECORDS SUMMARY | 2024-07-26 23:55 | XMS_ITS | Encounter Summary ---
Author Organization [facility] Address [address] [place] [address] Care Team Providers Care Human Resources Services Specialist Name Role Phone Shilo Soares MD Primary Care Provider [phone] Encounter Details Date Type Department Care Team [...] (Late Contact Info) Description 08/04/2024 1:00 PM WIRE BENDER HAND Appointment [facility] 2nd [place] [address] [place] [address] Aviva Humphries MD [address] [place] [address] Infusion Chair 5, 2nd Floor Hall 08/25/2024 1:00 PM WIRE BENDER HAND Office Visit [facility] Gynecologic Oncology Hall [address] [place] [address] Edilia Pettit, CHELY [address] [place] [address] 08/25/2024 1:30 PM WIRE BENDER HAND Appointment [facility] 2nd Fl [address] [place] [address] Aviva Humphries MD [address] [place] [address] Infusion Chair 1, 2nd Floor [place] 09/01/2024 10:45 AM WIRE BENDER HAND Appointment [facility] Nuclear Medicine [address] [place] [address] [id number] Edilia Pettit, CHELY [address] [facility] [address] [place] [address] documented as of this encounter Visit Diagnoses Not on filedocumented in this encounter Care Teams Human Resources Services Specialist Relationship Specialty Start Date End Date Shilo Soares MD [address] [place] [address] PCP - General Internal Medicine 04/24/23 documented as of this encounter
--- OUTSIDE RECORDS SUMMARY | 2024-07-26 23:55 | XMS_ITS | Encounter Summary ---
Author Organization [facility] Address [address] [place] [address] Care Team Providers Care Operator Bearer Systems Name Role Phone Shilo Soares MD Primary Care Provider [phone] Encounter Details Date Type Department Care Team (Late Contact Info) Description 11/04/2023 External Device Data STL ABSTRACTION Provider, Abstract [...] (Late Contact Info) Description 08/04/2024 1:00 PM DEPARTMENT STORE MANAGER Appointment [facility] 2nd Me [address] [place] [address] Aviva Humphries MD [address] [place] [address] Infusion Chair 5, 2nd Floor Hall 08/25/2024 1:00 PM DEPARTMENT STORE MANAGER Office Visit [facility] Gynecologic Oncology Hall [address] [place] [address] Edilia Pettit, CHELY [address] [address] [facility] [address] [place] [address] 08/25/2024 1:30 PM DEPARTMENT STORE MANAGER Appointment [facility] 2nd Fl [address] [place] [address] Aviva Humphries MD [address] [facility] [address] [address] [place] [address] Infusion Chair 1, 2nd Floor [place] 09/01/2024 10:45 AM DEPARTMENT STORE MANAGER Appointment [facility] Nuclear Medicine [address] [place] [address] [id number] Edilia Pettit, CHELY [address] [facility] [address] [place] [address] documented as of this encounter Visit Diagnoses Not on filedocumented in this encounter Care Teams Operator Bearer Systems Relationship Specialty Start Date End Date Shilo Soares MD [address] [place] [address] PCP - General Internal Medicine 04/24/23 documented as of this encounter
--- OUTSIDE RECORDS SUMMARY | 2024-07-26 23:55 | XMS_ITS | Encounter Summary ---
Author Organization [facility] Address [address] [place] [address] Care Team Providers Care Customer Resource Specialist Name Role Phone Shilo Soares MD Primary Care Provider [phone] Encounter Details Date Type Department Care Team [...] (Late Contact Info) Description 08/04/2024 1:00 PM KEY HOLDER Appointment [facility] 2nd [place] [address] [place] [address] Aviva Humphries MD [address] [place] [address] Infusion Chair 5, 2nd Floor Hall 08/25/2024 1:00 PM KEY HOLDER Office Visit [facility] Gynecologic Oncology Hall [address] [place] [address] Edilai Pettit, CHELY [address] [facility] [address] [place] [address] 08/25/2024 1:30 PM KEY HOLDER Appointment [facility] 2nd Fl [address] [place] [address] Aviva Humphries MD [address] [place] [address] Infusion Chair 1, 2nd Floor [place] 09/01/2024 10:45 AM KEY HOLDER Appointment [facility] Nuclear Medicine [address] [place] [address] [id number] Edilia Pettit, CHELY [address] [facility] [address] [place] [address] documented as of this encounter Visit Diagnoses Not on filedocumented in this encounter Care Teams Customer Resource Specialist Relationship Specialty Start Date End Date Shilo Soares MD [address] [place] [address] PCP - General Internal Medicine 04/24/23 documented as of this encounter
--- OUTSIDE RECORDS SUMMARY | 2024-07-26 23:55 | XMS_ITS | Encounter Summary ---
Author Organization [facility] Address [address] [place] [address] Care Team Providers Care Social Security Benefits Interviewer Name Role Phone Shilo Soares MD Primary Care Provider [phone] Encounter Details Date Type Department Care Team (Late Contact Info) Description 11/03/2023 External Device Data STL ABSTRACTION Provider, Abstract [...] (Late Contact Info) Description 08/04/2024 1:00 PM HOT DIE PRESS OPERATOR Appointment [facility] 2nd [place] [address] [place] [address] Aviva Humphries MD [address] [place] [address] Infusion Chair 5, 2nd Floor [place] 08/25/2024 1:00 PM HOT DIE PRESS OPERATOR Office Visit [facility] Gynecologic Oncology Hall [address] [place] [address] Edilia Pettit, CHELY [address] [place] [address] 08/25/2024 1:30 PM HOT DIE PRESS OPERATOR Appointment [facility] 2nd Fl [address] [place] [address] Aviva Humphries MD [address] [place] [address] Infusion Chair 1, 2nd Floor [place] 09/01/2024 10:45 AM HOT DIE PRESS OPERATOR Appointment [facility] Nuclear Medicine [address] [place] [address] [id number] Edilia Pettit, CHELY [address] [facility] [address] [place] [address] documented as of this encounter Visit Diagnoses Not on filedocumented in this encounter Care Teams Social Security Benefits Interviewer Relationship Specialty Start Date End Date Shilo Soares MD [address] [place] [address] PCP - General Internal Medicine 04/24/23 documented as of this encounter
--- OUTSIDE RECORDS SUMMARY | 2024-07-26 23:55 | XMS_ITS | Encounter Summary ---
Author Organization [facility] Address [address] [place] [address] Care Team Providers Care Lidder Name Role Phone Shilo Soares MD Primary Care Provider [phone] Encounter Details Date Type Department Care Team (Late Contact Info) Description 10/20/2023 External Device Data STL ABSTRACTION Provider, Abstract [...] (Late Contact Info) Description 08/04/2024 1:00 PM BAGMAN/WOMAN Appointment [facility] 2nd [place] [address] [place] [address] Aviva Humphries MD [address] [place] [address] Infusion Chair 5, 2nd Floor Hall 08/25/2024 1:00 PM BAGMAN/WOMAN Office Visit [facility] Gynecologic Oncology Hall [address] [place] [address] Edilia Pettit, CHELY [address] [facility] [place] [address] 08/25/2024 1:30 PM BAGMAN/WOMAN Appointment [facility] 2nd Fl [address] [place] [address] Aviva Humphries MD [address] [place] [address] Infusion Chair 1, 2nd Floor [place] 09/01/2024 10:45 AM BAGMAN/WOMAN Appointment [facility] Nuclear Medicine [address] [place] [address] [id number] Edilia Pettit, CHELY [address] [facility] [address] [place] [address] documented as of this encounter Visit Diagnoses Not on filedocumented in this encounter Care Teams Lidder Relationship Specialty Start Date End Date Shilo Soares MD [address] [place] [address] PCP - General Internal Medicine 04/24/23 documented as of this encounter
--- OUTSIDE RECORDS SUMMARY | 2024-07-26 23:55 | XMS_ITS | Encounter Summary ---
Author Organization [facility] Address [address] [place] [address] Care Team Providers Care Crook Operator Name Role Phone Shilo Soares MD Primary Care Provider [phone] Encounter Details Date Type Department Care Team (Late Contact Info) Description 11/08/2023 External Device Data STL ABSTRACTION Provider, Abstract [...] (Late Contact Info) Description 08/04/2024 1:00 PM DRILL SETUP OPERATOR Appointment [facility] 2nd [place] [address] [place] [address] Aviva Humphries MD [address] [place] [address] Infusion Chair 5, 2nd Floor Hall 08/25/2024 1:00 PM DRILL SETUP OPERATOR Office Visit [facility] Gynecologic Oncology Hall [address] [place] [address] Edilia Pettit, CHELY [address] [facility] [address] [place] [address] 08/25/2024 1:30 PM DRILL SETUP OPERATOR Appointment [facility] 2nd Fl [address] [place] [address] Aviva Humphries MD [address] [place] [address] Infusion Chair 1, 2nd Floor [place] 09/01/2024 10:45 AM DRILL SETUP OPERATOR Appointment [facility] Nuclear Medicine [address] [place] [address] [id number] Edilia Pettit, CHELY [address] [facility] [address] [place] [address] documented as of this encounter Visit Diagnoses Not on filedocumented in this encounter Care Teams Crook Operator Relationship Specialty Start Date End Date Shilo Soares MD [address] [place] [address] PCP - General Internal Medicine 04/24/23 documented as of this encounter
--- OUTSIDE RECORDS SUMMARY | 2024-07-26 23:55 | XMS_ITS | Encounter Summary ---
Author Organization [facility] Address [address] [place] [address] Care Team Providers Care Respiratory Equipment Assistant Name Role Phone Shilo Soares MD Primary Care Provider [phone] Encounter Details Date Type Department Care Team (Late Contact Info) Description 11/02/2023 External Device Data STL ABSTRACTION Provider, Abstract [...] (Late Contact Info) Description 08/04/2024 1:00 PM PRESSER MACHINE Appointment [facility] 2nd [place] [address] [place] [address] Aviva Humphries MD [address] [place] [address] Infusion Chair 5, 2nd Floor Hall 08/25/2024 1:00 PM PRESSER MACHINE Office Visit [facility] Gynecologic Oncology Hall [address] [place] [address] Edilia Pettit, CHELY [address] [address] [place] [address] 08/25/2024 1:30 PM PRESSER MACHINE Appointment [facility] 2nd Fl [address] [place] [address] Aviva Humphries MD [address] [facility] [address] [facility] [address] [place] [address] Infusion Chair 1, 2nd Floor [place] 09/01/2024 10:45 AM PRESSER MACHINE Appointment [facility] Nuclear Medicine [address] [place] [address] [id number] Edilia Pettit, CHELY [address] [facility] [address] [place] [address] documented as of this encounter Visit Diagnoses Not on filedocumented in this encounter Care Teams Respiratory Equipment Assistant Relationship Specialty Start Date End Date Shilo Soares MD [address] [place] [address] PCP - General Internal Medicine 04/24/23 documented as of this encounter
--- OUTSIDE RECORDS SUMMARY | 2024-07-26 23:55 | XMS_ITS | Encounter Summary ---
Author Organization [facility] Address [address] [place] [address] Care Team Providers Care Twister Tender Paper Name Role Phone Shilo Soares MD Primary Care Provider [phone] Encounter Details Date Type Department Care Team [...] Contact Info) Description 08/04/2024 1:00 PM COMMUNITY REPRESENTATIVE Appointment [facility] 2nd Dc [address] [place] [address] Aviva Humphries MD [address] [place] [address] Infusion Chair 5, 2nd Floor Hall 08/25/2024 1:00 PM COMMUNITY REPRESENTATIVE Office Visit [facility] Gynecologic Oncology Hall [address] [place] [address] Edilia Pettit, CHELY [address] [facility] [facility] [address] [place] [address] 08/25/2024 1:30 PM COMMUNITY REPRESENTATIVE Appointment [facility] 2nd Fl [address] [place] [address] Aviva Humphries MD [address] [place] [address] Infusion Chair 1, 2nd Floor [place] 09/01/2024 10:45 AM COMMUNITY REPRESENTATIVE Appointment [facility] Nuclear Medicine [address] [place] [address] [id number] Edilia Pettit, CHELY [address] [facility] [address] [place] [address] documented as of this encounter Visit Diagnoses Not on filedocumented in this encounter Care Teams Twister Tender Paper Relationship Specialty Start Date End Date Shilo Soares MD [address] [place] [address] PCP - General Internal Medicine 04/24/23 documented as of this encounter
--- OUTSIDE RECORDS SUMMARY | 2024-07-26 23:55 | XMS_ITS | Encounter Summary ---
Author Organization [facility] Address [address] [place] [address] Care Team Providers Care Hotel Night Auditor Name Role Phone Shilo Soares MD Primary Care Provider [phone] Encounter Details Date Type Department Care Team (Late Contact Info) Description 11/20/2023 Abstract [facility] Gynecologic Oncology Hall [address] [place] [address] Aviva Humphries MD [address] [place] [address] Social History Tobacco Use Types [...] (Late Contact Info) Description 08/04/2024 1:00 PM UNDERGROUND REPAIRER Appointment [facility] 2nd Fl [address] [place] [address] Aviva Humphries MD [address] [place] [address] Infusion Chair 5, 2nd Floor Hall 08/25/2024 1:00 PM UNDERGROUND REPAIRER Office Visit [facility] Gynecologic Oncology Hall [address] [place] [address] Edilia Pettit NP [address] [facility] [facility] [address] [place] [address] 08/25/2024 1:30 PM UNDERGROUND REPAIRER Appointment [facility] [address] [place] [address] Aviva Humphries MD [address] [facility] [address] [place] [address] Infusion Chair 1, 2nd Floor [place] 09/01/2024 10:45 AM UNDERGROUND REPAIRER Appointment [facility] Nuclear Medicine [address] [place] [address] [id number] Edilia Pettit, CHELY [address] [facility] [address] [place] [address] documented as of this encounter Visit Diagnoses Not on filedocumented in this encounter Care Teams Hotel Night Auditor Relationship Specialty Start Date End Date Shilo Soares MD [address] [place] [address] PCP - General Internal Medicine 04/24/23 documented as of this encounter
--- OUTSIDE RECORDS SUMMARY | 2024-07-26 23:55 | XMS_ITS | Encounter Summary ---
Author Organization [facility] Address [address] [place] [address] Care Team Providers Care Sponsorship Coordinator Name Role Phone Shilo Soares MD Primary Care Provider [phone] Encounter Details Date Type Department Care Team (Late Contact Info) Description 11/26/2023 Orders Only [facility] Gynecologic Oncology Hall [address] [facility] [address] [place] [address] Edilia Pettit, CHELY [address] [facility] [address] [place] [address] Social History Tobacco Use Types [...] (Late Contact Info) Description 08/04/2024 1:00 PM YOLK SPRAY DRIER Appointment [facility] 2nd Fl [address] [place] [address] Aviva Humphries MD [address] [place] [address] Infusion Chair 5, 2nd Floor [place] 08/25/2024 1:00 PM YOLK SPRAY DRIER Office Visit [facility] Gynecologic Oncology Hall [address] [address] [place] [address] Edilia Pettit, CHELY [address] [facility] [address] [place] [address] 08/25/2024 1:30 PM YOLK SPRAY DRIER Appointment [facility] [address] [place] [address] Aviva Humphries MD [address] [place] [address] Infusion Chair 1, 2nd Floor [place] 09/01/2024 10:45 AM YOLK SPRAY DRIER Appointment [facility] Nuclear Medicine [address] [place] [address] [id number] Edilia Pettit NP [address] [facility] [address] [place] [address] documented as of this encounter Visit Diagnoses Not on filedocumented in this encounter Care Teams Sponsorship Coordinator Relationship Specialty Start Date End Date Shilo Soares MD [address] [place] [address] PCP - General Internal Medicine 04/24/23 documented as of this encounter
--- OUTSIDE RECORDS SUMMARY | 2024-07-26 23:55 | XMS_ITS | Encounter Summary ---
Author Organization [facility] Address [address] [place] [address] Care Team Providers Care Jewel Cupping Machine Operator Name Role Phone Shilo Soares MD Primary Care Provider [phone] Encounter Details Date Type Department Care Team (Late Contact Info) Description 10/28/2023 External Device Data STL ABSTRACTION Provider, Abstract [...] (Late Contact Info) Description 08/04/2024 1:00 PM DIE CASTING MACHINE SETTER Appointment [facility] 2nd Nh [address] [place] [address] Aviva Humphries MD [address] [place] [address] Infusion Chair 5, 2nd Floor Hall 08/25/2024 1:00 PM DIE CASTING MACHINE SETTER Office Visit [facility] Gynecologic Oncology Hall [address] [place] [address] Edilia Pettit, CHELY [address] [place] [address] 08/25/2024 1:30 PM DIE CASTING MACHINE SETTER Appointment [facility] 2nd Fl [address] [place] [address] Aviva Humphries MD [address] [place] [address] Infusion Chair 1, 2nd Floor [place] 09/01/2024 10:45 AM DIE CASTING MACHINE SETTER Appointment [facility] Nuclear Medicine [address] [place] [address] [id number] Edilia Pettit, CHELY [address] [facility] [address] [place] [address] documented as of this encounter Visit Diagnoses Not on filedocumented in this encounter Care Teams Jewel Cupping Machine Operator Relationship Specialty Start Date End Date Shilo Soares MD [address] [place] [address] PCP - General Internal Medicine 04/24/23 documented as of this encounter
--- OUTSIDE RECORDS SUMMARY | 2024-07-26 23:55 | XMS_ITS | Encounter Summary ---
Author Organization [facility] Address [address] [place] [address] Care Team Providers Care Blanker Operator Name Role Phone Shilo Soares MD Primary Care Provider [phone] Encounter Details Date Type Department Care Team (Late Contact Info) Description 10/21/2023 External Device Data STL ABSTRACTION Provider, Abstract [...] (Late Contact Info) Description 08/04/2024 1:00 PM PRINTING ROLLER POLISHER Appointment [facility] 2nd Ar [address] [place] [address] Aviva Humphries MD [address] [place] [address] Infusion Chair 5, 2nd Floor Hall 08/25/2024 1:00 PM PRINTING ROLLER POLISHER Office Visit [facility] Gynecologic Oncology Hall [address] [place] [address] Edilia Pettit, CHELY [address] [place] [address] 08/25/2024 1:30 PM PRINTING ROLLER POLISHER Appointment [facility] 2nd Fl [address] [place] [address] Avvia Humphries MD [address] [facility] [address] [place] [address] Infusion Chair 1, 2nd Floor [place] 09/01/2024 10:45 AM PRINTING ROLLER POLISHER Appointment [facility] Nuclear Medicine [address] [place] [address] [id number] Edilia Pettit, CHELY [address] [facility] [address] [place] [address] documented as of this encounter Visit Diagnoses Not on filedocumented in this encounter Care Teams Blanker Operator Relationship Specialty Start Date End Date Shilo Soares MD [address] [place] [address] PCP - General Internal Medicine 04/24/23 documented as of this encounter
--- OUTSIDE RECORDS SUMMARY | 2024-07-26 23:55 | XMS_ITS | Encounter Summary ---
[facility] Organization [facility] Address [address] [place] [address] Care Team Providers Care Investment Strategist Name Role Phone Shilo Soares MD Primary Care Provider [phone] Reason for Referral * CT Scan (Routine) - Closed Specialty Diagnoses / Procedures Referred By Alison gomez Referred To Contact Diagnoses Malignant neoplasm of ovary, unspecified laterality Procedures CT CHEST ABDOMEN PELVIS W Aviva Cochran MD [address] [place] [address] [address] Scan [address] [place] [address] Referral ID Status Reason Start Date Expiration Date Visits Re quested Visits Authorized [id number] Closed 09/24/2023 10/24/2024 1 1 Reason for Visit * CT Scan (Routine) - Closed Specialty Diagnoses / Procedures Referred By Alison gomez Referred To Contact Diagnoses Malignant neoplasm of ovary, unspecified laterality Procedures CT CHEST ABDOMEN PELVIS W Aviva Cochran MD [address] [place] [address] [place] [address] Referral ID Status Reason Start Date Expiration Date Visits Re quested Visits Authorized [id number] Closed 09/24/2023 10/24/2024 1 1 Encounter Details Date Type Department Care Team (Latest Contact Info) Description 11/09/2023 2:50 PM CDT - 11/09/2023 11:59 PM CDT Hospital Encounter [facility] Scan [address] [place] [phone] Aviva Humphries MD [address] [place] [address] Discharge Disposition: Home or Self [...] Sig Dispensed Refills Start Date End Date loratadine (CLARITIN) 10 mg tablet Take 10 [...] bedtime. 02/26/2021 fluticasone propionate (FLONASE) 50 mcg/spray [place], Suspension nasal inhaler Administer 2 Sprays in each nostril daily. omega-3 fatty acids-fish oil 300-1,000 mg Capsule Take 2 Capsules by mouth daily. lidocaine-prilocaine (EMLA) 2.5-2.5 % Cream APPLY A THIN LAYER OVER PORT SITE 30-45 MINUTES PRIOR TO CHEMOTHERAPY. 30 Gram 10/05/2023 12/14/2023 documented as of this encounter Procedure Notes * Kaylynn Waldrop, RT - 11/09/2023 3:00 PM CDT Images from the original note were not included. [facility] IMS Medication and Flush Protocol- CT and MRI Procedures [facility] Approved by: [facility] Executive Committee Approval Date: 02/26/2023 ORDERS ARE ENTERED ???PER PROTOCOL?? Enter the [...] 300 mg/ml oral solution age appropriate guidelines Martha Administer 45mL of diluted Iopamidol oral solution, [...] (Omnipaque) 240mg/ml oral solution age appropriate guidelines Martha Administer 45mL of diluted Iohexol oral solution, [...] SPECIFIC MRI MEDICATIONS: MRI ENTEROGRAPHY: GLUGACON ADMINISTRATION ADULTS: (patient 18 years or older) Patient will receive 2 doses of Glucagon one dose 0.5mg IM administered by RN prior to the MRI exambeginning 2nd dose 0.5mg IV prior to the IV contrast being administered. (If the patient is diabetic call the radiologist to verify administration of Glucagon) PEDIATRICS: If the patient is diabetic call the radiologist to verify administration of Glucagon Pediatric patient weighing 24.9 kg or less should have one dose of Glucagon 0.5mg IM administered by RN prior to MRI exam beginning. Pediatric patient weighing 25 kg or greater should have one dose of Glucagon 1 mg IM administered by RN prior to the MRI exam beginning. MRI UROGRAM: LASIX ADMINISTRATION ADULTS: Call radiologist with any questions regarding administration of Lasix Lasix 0.1mg per kg with a minimum dose of Lasix 5mg IV being given up to a max dose of Lasix 10mg IV being given. The Lasix should be administered by RN prior to the IV contrast being administered. (Hold Lasix if: obstruction, anuria and hypersensitivity to furosemide, and electrolyte imbalance or hypotension should be corrected by RN before administering) MRI IV CONTRAST PROTOCOLS ADULTS: [...] number of NSF cases: Gadodiamide (Omniscan?? - OneTwoTrip) Gadopentetate dimeglumine (Magnevist?? - Plays.IO) Gadoversetamide (OptiMARK?? - Guerbet) Group II: Agents associated with few, if any, unconfounded cases of NSF: Gadobenate dimeglumine (MultiHance?? - [employer]) Gadobutrol (Gadavist?? - Plays.IO; Gadovist in many countries) Gadoteric acid (Dotarem?? - Guerbet, Clariscan - OneTwoTrip) Gadoteridol (ProHance?? - [employer]) Group III: Agents for which data remains limited regarding NSF risk, but for which few, if any unconfounded cases of NSF have been reported: Gadoxetate disodium (Eovist - Plays.IO; Primovist in many countries) documented in this encounter Miscellaneous Notes * Result Encounter Note - Aviva Humphries MD - 11/09/2023 3:00 PM CDT Please let Narda know that I have reviewed her CT scan. She has done great with treatment! The CT scan shows excellent response. There is a small nodule in her upper lung that we will follow with imaging over time (unsure if this is disease or not) otherwise there is no other evidence or disease. documented in this encounter Plan of Treatment Upcoming Encounters Date Type Department Care Team (Late st Contact Info) Description 08/04/2024 1:00 PM CAKE PULLER Appointment [facility] [address] [place] [address] Aviva Humphries MD [address] [place] [phone] Infusion Chair 5, 2nd Floor Hall 08/25/2024 1:00 PM CAKE PULLER Office Visit [facility] [address] [facility] [address] [place] [phone] Edilia Pettit, CHELY [address] [facility] [address] [place] [phone] 08/25/2024 1:30 PM CAKE PULLER Appointment [facility] [address] [place] [address] Aviva Humphries MD [address] [place] [phone] Infusion Chair 1, 2nd Floor Hall 09/01/2024 10:45 AM CAKE PULLER Appointment [facility] [address] [place] [address] [id number] Edilia Pettit, CHELY [id number] [place] [phone] documented as of this encounter Procedures Procedure Name Priority Date/Time Associated Diagnosis Comments CT CHEST ABDOMEN PELVIS W CONT Routine 11/09/2023 3:09 PM CDT Malignant neoplasm of ovary, unspecified laterality documented in this encounter Results * CT CHEST ABDOMEN PELVIS W CONT (11/09/2023 3:09 PM CDT) Anatomical Region Laterality Modality Chest Computed Tomogra phy 11/09/2023 4:01 PM CDT Impressions 11/09/2023 7:30 PM CDT IMPRESSION: ?? 1. New 5 mm pulmonary nodule in the left upper lobe is indeterminate in isolation. Consider three month follow-up chest CT versus further evaluation with PET/CT. 2. No CT evidence of metastatic disease in the abdomen or pelvis. DICTATION LOCATION: Location [facility] 11/09/2023 7:30 PM CDT EXAMINATION: CT OF THE CHEST, ABDOMEN AND PELVIS WITH INTRAVENOUS CONTRAST ?? DATE: 11/09/2023 3:09 PM TECHNIQUE: CT of the chest, abdomen and pelvis was performed following the administration of intravenous contrast according to standard protocol. The examination was performed with the adjustment of mA according to the patient size and/or the use of Iterative Reconstruction Technique. ?? CONTRAST: ??IOPAMIDOL 61 % INTRAVENOUS SOLUTION (MULTI-DOSE BULK PACK) Given:60 mL HISTORY: 62 years-old Female with ovarian cancer. COMPARISON: 06/02/2023 FINDINGS: ?? Chest: There is pleural scarring at the lung apices. No focal lung consolidation, pneumothorax or pleural effusion. There are changes of pulmonary emphysema. ??5 mm pulmonary nodule in the left upper lobe series 4 (image 96) is new. The central airways are widely patent. The thoracic aorta is of normal course and ectatic with mild atherosclerotic calcification. No supraclavicular, axillary, mediastinal, or hilar lymphadenopathy is seen. The heart is normal in size without pericardial effusion. There is coronary artery calcification. There are subcentimeter hypoattenuating thyroid nodules. ?? No suspicious lytic or blastic osseous lesion or acute fracture in the chest. Abdomen/Pelvis: The abdominal aorta is of normal course and normal caliber with mild atherosclerotic calcification. There are simple cysts in both kidneys. Subtle stranding in the pelvis is nonspecific and likely treatment-related The spleen, adrenals, pancreas, liver, and gallbladder are normal. There is no intrahepatic or extrahepatic biliary ductal dilation. There is no CT evidence of high grade bowel obstruction. No intra-abdominal lymphadenopathy, free fluid, or free air. There is no hydronephrosis or nephrolithiasis. The urinary bladder is normal. No suspicious lytic or blastic osseous lesion or acute fracture in the abdomen or pelvis. Procedure Note Carlos Enrique Sam MD - 11/09/2023 EXAMINATION: CT OF THE CHEST, ABDOMEN AND PELVIS WITH INTRAVENOUS CONTRAST DATE: 11/09/2023 3:09 PM TECHNIQUE: CT of the chest, abdomen and pelvis was performed following the administration of intravenous contrast according to standard protocol. The examination was performed with the adjustment of mA according to the patient size and/or the use of Iterative Reconstruction Technique. CONTRAST: IOPAMIDOL 61 % INTRAVENOUS SOLUTION (MULTI-DOSE BULK PACK) Given:60 mL HISTORY: 62 years-old Female with ovarian cancer. COMPARISON: 06/02/2023 FINDINGS: Chest: There is pleural scarring at the lung apices. No focal lung consolidation, pneumothorax or pleural effusion. There are changes of pulmonary emphysema. 5 mm pulmonary nodule in the left upper lobe series 4 (image 96) is new. The central airways are widely patent. The thoracic aorta is of normal course and ectatic with mild atherosclerotic calcification. No supraclavicular, axillary, mediastinal, or hilar lymphadenopathy is seen. The heart is normal in size without pericardial effusion. There is coronary artery calcification. There are subcentimeter hypoattenuating thyroid nodules. No suspicious lytic or blastic osseous lesion or acute fracture in the chest. Abdomen/Pelvis: The abdominal aorta is of normal course and normal caliber with mild atherosclerotic calcification. There are simple cysts in both kidneys. Subtle stranding in the pelvis is nonspecific and likely treatment-related The spleen, adrenals, pancreas, liver, and gallbladder are normal. There is no intrahepatic or extrahepatic biliary ductal dilation. There is no CT evidence of high grade bowel obstruction. No intra-abdominal lymphadenopathy, free fluid, or free air. There is no hydronephrosis or nephrolithiasis. The urinary bladder is normal. No suspicious lytic or blastic osseous lesion or acute fracture in the abdomen or pelvis. IMPRESSION: 1. New 5 mm pulmonary nodule in the left upper lobe is indeterminate in isolation. Consider three month follow-up chest CT versus further evaluation with PET/CT. 2. No CT evidence of metastatic disease in the abdomen or pelvis. DICTATION LOCATION: [address] Aviva Humphries MD CT ORDERABLES documented in this encounter Visit Diagnoses Diagnosis Malignant neoplasm of ovary, unspecified laterality documented in this encounter Administered Medications Inactive Administered Medications - up to 3 most recent administrations Medication Order MAR Action Action Date Dose Rate Site iopamidoL (ISOVUE-300) 61% injection (drawn from multi-use bulk pack) 60 mL 60 mL, IV, INTRA-PROCEDURE ONCE, 1 dose, Starting on Thu11/09/23 at 1511, Until Thu11/09/23 at 1501, Routine Contrast Given 11/09/2023 3:01 PM CDT 60 mL Arm , Right sodium chloride flush injection 10 mL 10 mL, IV, ONE TIME ONLY, 1 dose, On Thu11/09/23 at 1515, Routine Given 11/09/2023 2:53 PM CDT 10 mL Arm, Right documented in this encounter Care Teams Investment Strategist Relationship Specialty Start Date End Date Shilo Soares MD [address] [place] [address] PCP - General Internal Medicine 04/24/23 documented as of this encounter
--- OUTSIDE RECORDS SUMMARY | 2024-07-26 23:55 | XMS_ITS | Encounter Summary ---
[facility] Organization [facility] Address [address] [place] [address] Care Team Providers Care Advertising Account Executive Name Role Phone Shilo Soares MD Primary Care Provider [phone] Encounter Details Date Type Department Care Team (Latest Contact Info) Description 11/26/2023 12:02 PM CDT - 11/26/2023 11:59 PM CDT Hospital Encounter [facility] [address] [place] [address] Aviva Humphries MD [address] [place] [address] Discharge Disposition: Home or Self [...] bedtime. 02/26/2021 fluticasone propionate (FLONASE) 50 mcg/spray [place], Suspension nasal inhaler Administer 2 Sprays in each nostril daily. omega-3 fatty acids-fish oil 300-1,000 mg Capsule Take 2 Capsules by mouth daily. olaparib 150 mg tablet Take 2 Tablets (300 mg) by mouth 2 times daily. 120 Tablet 3 11/19/2023 02/15/2024 lidocaine-prilocaine (EMLA) 2.5-2.5 % Cream APPLY A THIN LAYER OVER PORT SITE 30-45 MINUTES PRIOR TO CHEMOTHERAPY. 30 Gram 10/05/2023 12/14/2023 documented as of this encounter Miscellaneous Notes * Treatment Plan - Marilynn Olivares CNS - 11/26/2023 12:15 PM CDT Images from the original note were not included. ST[facility] INFCTR IV Flush Protocol [facility] Approved by: [facility] - Medical Executive Committee Approval Date: 10/29/2023 ORDERS ARE ENTERED ???PER PROTOCOL?? Enter the protocol in the patient's electronic health record using [email or web address] .[email or web address] Central Venous Catheter occlusion therapy Alteplase [...] st Contact Info) Description 08/04/2024 1:00 PM STEAM DRIER OPERATOR Appointment [facility] Infusion Center [facility] [address] [place] [address] Aviva Humphries MD [address] [place] [phone] Infusion Chair 5, 2nd Floor Hall 08/25/2024 1:00 PM STEAM DRIER OPERATOR Office Visit [facility] Gynecologic Oncology Hall [address] [facility] [address] [place] [phone] Edilia Pettit, CHELY [address] [facility] [address] [place] [phone] 08/25/2024 1:30 PM STEAM DRIER OPERATOR Appointment Randy Hall [facility] Infusion Center [facility] [address] [place] [address] Aviva Humphries MD [address] [place] [phone] Infusion Chair 1, 2nd Floor Hall 09/01/2024 10:45 AM STEAM DRIER OPERATOR Appointment [facility] Nuclear Medicine [address] [place] [id number] Edilia Pettit, CHELY [address] [facility] [address] [place] [phone] documented as of this encounter Procedures Procedure Name Priority Date/Time Associated Diagnosis Comments CBC WITH DIFFERENTIAL Stat 11/26/2023 12:22 PM CDT Malignant neoplasm of ovary, unspecified laterality URINALYSIS W/REFLEX MICROSCOPIC Stat 11/26/2023 12:22 PM CDT Malignant neoplasm of ovary, unspecified laterality CANCER ANTIGEN 125 Routine 11/26/2023 12 :22 PM CDT Malignant neoplasm of ovary, unspecified laterality MAGNESIUM LEVEL Stat 11/26/2023 12:22 PM CDT Malignant neoplasm of ovary, unspecified laterality COMPREHENSIVE METABOLIC PANEL Stat 11/26/2023 12:22 PM CDT Malignant neoplasm of ovary, unspecified laterality documented in this encounter Results * (ABNORMAL) URINALYSIS WITH REFLEX MICROSCOPIC (11/26/2023 12:22 PM CDT) COLOR UA Colorless(A ) Pale to Dark Yellow 11/26/2023 1:11 PM CDT [facility] CLARITY UA Clear Clear 11/26/2023 1:11 PM CDT [facility] SPECIFIC GRAVITY UA 1.002(L) 1.003 - 1.035 11/26/2023 1:11 PM CDT [facility] PH UA 6.0 5.0 - 8.0 11/26/2023 1:11 PM CDT [facility] LEUKOCYTE ESTERASE UA Negative Negative 11/26/2023 1:11 PM CDT [facility] NITRITE UA Negative Negative 11/26/2023 1:11 PM CDT [facility] PROTEIN UA Negative Negative 11/26/2023 1:11 PM CDT [facility] GLUCOSE UA Negative Negative 11/26/2023 1:11 PM CDT [facility] KETONES UA Negative Negative 11/26/2023 1:11 PM CDT [facility] UROBILINOGEN UA Normal <2.0 mg/dL 1:11 PM CDT [facility] BILIRUBIN UA Negative Negative 11/26/2023 1:11 PM CDT [facility] BLOOD UA 1+(A) Negative 11/26/2023 1:11 PM CDT [facility] WBC UA 0-2 0 - 2 /hpf 11/26/2023 1:11 PM CDT [facility] RBC UA 0-2 0 - 2 /hpf 11/26/2023 1:11 PM CDT [facility] BACTERIA UA Negative Negative /hpf 11/26/2023 1:11 PM CDT [facility] Urine URINE SPECIMEN OBTAINED BY CLEAN CATCH PROCEDURE / Unknown Collection / Unknown 11/26/2023 12:22 PM CDT 11/26/2023 12:55 PM CDT Aviva Humphries MD URINE ORDERABLES [facility] CLIA# [id number] [address] [place] [address] * MAGNESIUM LEVEL (11/26/2023 12:22 PM CDT) MAGNESIUM 2.1 1.6 - 2.4 mg/dL 11/26/2023 1:40 PM CDT [facility] Blood Collection / Unknown 11/26/2023 12:22 PM CDT 11/26/2023 12:57 PM CDT Aviva Humphries MD CHEMISTRY ORDERABLES Performing Organization Address City/[facility]/ZIP Co de Phone Number [facility] CLIA# [id number] [address] [place] [address] * (ABNORMAL) COMPREHENSIVE METABOLIC PANEL (11/26/2023 12:22 PM CDT) SODIUM 140 136 - 145 mmol/L 11/26/2023 1:40 PM CDT [facility] POTASSIUM 3.8 3.5 - 5.0 mmol/L 11/26/2023 1:40 PM CDT [facility] CHLORIDE 103 98 - 107 mmol/L 11/26/2023 1:40 PM CDT [facility] CO2 26 22 - 29 mmol/L 11/26/2023 1:40 PM CDT [facility] CALCIUM 9.6 8.6 - 10.2 mg/dL 11/26/2023 1:40 PM CDT [facility] BUN 10 8 - 23 mg/dL 11/26/2023 1:40 PM CDT [facility] CREATININE 0.94 0.51 - 0.95 mg/dL 11/26/2023 1:40 PM T [facility] - [facility] GLUCOSE 112(H) 74 - 99 mg/dL 11/26/2023 1:40 PM T [facility] TOTAL PROTEIN 7.8 6.7 - 8.6 g/dL 11/26/2023 1:40 PM T [facility] - [facility] ALBUMIN 4.5 3.5 - 5.2 g/dL 11/26/2023 1:40 PM T [facility]ORAT[facility] BILIRUBIN TOTAL 0.4 0.2 - 1.1 mg/dL 11/26/2023 1:40 PM T [facility] LABORATORY [facility] ALKALINE PHOSPHATASE 96 35 - 104 U/L 11/26/2023 1:40 PM [facility] LAB[facility] AST 21 <33 U/L 11/26/2023 1:40 PM [facility] LABOR[facility] ALT 24 <34 U/L 11/26/2023 1:40 PM T [facility] LABORATORY [facility] GFR >60 >=60 mL/min/1.7 3 sq meter 11/26/2023 1:40 PM [facility] LABOR[facility] Comment:eGFR calculated with 2020 CKD-EPI equation. Vegetarian diet, extremely high or low muscle mass, and may affect results. Cystatin C with Glomerular Filtration Rate is a suitable alternative for these patients. ANION GAP 11 8 - 16 mmol/L 11/26/2023 1:40 PM [facility] Blood Collection / Unknown 11/26/2023 12:22 PM CDT 11/26/2023 12:57 PM CDT [facility] LABORATORY SERVICES [facility] - 11/26/2023 1:40 PM CDT Samples containing indocyanine green cause interferences on Total and/or Direct Bilirubin and must not be measured. Aviva Humphries MD CHEMISTRY ORDERABLES [facility] CLIA# [id number] [address] [address] * (ABNORMAL) CBC WITH DIFFERENTIAL (11/26/2023 12:22 PM CDT) [facility] WBC 5.0 4.0 - 9.8 K/uL 11/26/2023 12:44 PM CDT [facility] RBC 3.54(L) 3.90 - 4.90 M/uL 11/26/2023 12:44 PM CDT [facility] HEMOGLOBIN 11.7(L) 11.8 - 14.8 g/dL 11/26/2023 12:44 PM CDT [facility] HEMATOCRIT 35.7 35.5 - 44.0 % 11/26/2023 12:44 PM CDT [facility] MCV 100.8(H) 82.0 - 99.0 fL 11/26/2023 12:44 PM CDT [facility] MCH 33.1(H) 27.2 - 32.6 pg 11/26/2023 12:44 PM CDT [facility] MCHC 32.8 31.5 - 35.5 g/dL 11/26/2023 12:44 PM CDT [facility] RDW 17.2(H) 11.5 - 14.5 % 11/26/2023 12:44 PM CDT [facility] RDW-STDEV 63.4(H) 37.1 - 48.7 fL 11/26/2023 12:44 PM CDT [facility] PLATELETS 262 140 - 350 K/uL 11/26/2023 12:44 PM CDT [facility] MPV 9.2(L) 9.3 - 12.4 fL 11/26/2023 12:44 PM CDT [facility] NEUTROPHILS 57 % 11/26/2023 12:44 PM CDT [facility] LYMPHOCYTES 33 % 11/26/2023 12:44 PM CDT [facility] MONOCYTES 9 % 11/26/2023 12:44 PM CDT [facility] EOSINOPHILS 1 % 11/26/2023 12:44 PM CDT [facility]ATORY SERVICES - [facility] BASOPHILS 1 % 11/26/2023 12:44 PM CDT [facility]ATORY SERVICES - [facility] IMMATURE GRANULOCYTES 0 % 11/26/2023 12:44 PM CDT [facility]ORY SERVICES - [facility] NEUTROPHIL ABSOLUTE 2.89 1.90 - 7.00 K/uL 11/26/2023 12:44 PM CDT [facility] LABORATORY SERVICES - . [facility] LYMPHOCYTE ABSOLUTE 1.65 0.70 - 4.50 K/uL 11/26/2023 12:44 PM CDT [facility]ORATORY SERVICES - . [facility] MONOCYTE ABSOLUTE 0.43 0.10 - 1.30 K/uL 11/26/2023 12:44 PM CDT [facility]ORATORY SERVICES - . [facility] EOSINOPHIL ABSOLUTE 0.03 0.00 - 0.70 K/uL 11/26/2023 12:44 PM CDT [facility]ORATORY SERVICES - . [facility] BASOPHILS ABSOLUTE 0.03 0.00 - 0.20 K/uL 11/26/2023 12:44 PM CDT [facility]ORATORY SERVICES - . [facility] IMMATURE GRANULOCYTES ABSOLUTE 0.01 0.00 - 0.03 K/uL 11/26/2023 12:44 PM CDT [facility]ORATORY SERVICES - [facility] Blood Collection / Unknown 11/26/2023 12:22 PM CDT 11/26/2023 12:41 PM CDT Aviva Humphries MD HEMATOLOGY ORDERABLE S [facility] LABORATORY SERVICES [facility]# [id number] [address] [place] [address] * CANCER ANTIGEN 125 (11/26/2023 12:22 PM CDT) CA 125 7 <35 U/mL [email or web address] Comment: This test was performed using the Siemens Chemiluminescent method. Values obtained from different assay methods cannot be used interchangeably. CA 125 levels, regardless of value, should not be interpreted as absolute evidence of the presence or absence of disease. Test Performed at: [email or web address] [address] [facility] [place] ??[id number] Radha Perez MD Blood 11/26/2023 12:2 2 PM CDT 11/26/2023 12:33 PM CDT Aviva Humphries MD CHEMISTRY ORDERABLES [facility] [phone] [facility] [address] [place] [address] documented in this encounter Visit Diagnoses Diagnosis Malignant neoplasm of ovary, unspecified laterality documented in this encounter Administered Medications Inactive Administered Medications - up to 3 most recent administrations Medication Order MAR Action Action Date Dose Rate Site sodium chloride flush injection 10 mL 10 mL, IV, ONE TIME ONLY, 1 dose, On Peace 11/26/23 at 1230, Routine Given 11/26/2023 12:30 PM CDT 10 mL documented in this encounter Care Teams Advertising Account Executive Relationship Specialty Start Date End Date Shilo Soares MD [address] [place] [address] PCP - General Internal Medicine 04/24/23 documented as of this encounter
--- OUTSIDE RECORDS SUMMARY | 2024-07-26 23:55 | XMS_ITS | Encounter Summary ---
Author Organization [facility] Address [address] [place] [address] Care Team Providers Care Hoop Flaring Machine Operator Name Role Phone Shilo Soares MD Primary Care Provider [phone] Encounter Details Date Type Department Care Team [...] (Late Contact Info) Description 08/04/2024 1:00 PM ELECTROGALVANIZING MACHINE OPERATOR Appointment [facility]fusion Center 2nd Ut [address] [place] [address] Aviva Humphries MD [address] [place] [address] Infusion Chair 5, 2nd Floor Hall 08/25/2024 1:00 PM ELECTROGALVANIZING MACHINE OPERATOR Office Visit [facility] Gynecologic Oncology Hall [address] [place] [address] Edilia Pettit, CHELY [address] [place] [phone] 08/25/2024 1:30 PM ELECTROGALVANIZING MACHINE OPERATOR Appointment [facility] Infusion Center 2nd Fl [address] [place] [address] Aviva Humphries MD [address] [place] [address] Infusion Chair 1, 2nd Floor [place] 09/01/2024 10:45 AM ELECTROGALVANIZING MACHINE OPERATOR Appointment Randy [facility] Nuclear Medicine [address] [place] [phone] [id number] Edilia Pettit, CHELY [address] [facility] [address] [place] [address] documented as of this encounter Visit Diagnoses Not on filedocumented in this encounter Care Teams Hoop Flaring Machine Operator Relationship Specialty Start Date End Date Shilo Soares MD [address] [place] [address] PCP - General Internal Medicine 04/24/23 documented as of this encounter
--- OUTSIDE RECORDS SUMMARY | 2024-07-26 23:55 | XMS_ITS | Encounter Summary ---
Author Organization [facility] Address [address] [place] [address] Care Team Providers Care Enrollment Representative Name Role Phone Shilo Soares MD Primary Care Provider [phone] Reason for Visit * Reason Onset Date Comments CT results 11/10/2023 Encounter Details Date Type Department Care Team (Late st Contact Info) Description 11/10/2023 Telephone [facility] Gynecologic Oncology Hall [address] [place] [address] Aviva Humphries MD [address] [place] [address] CT results Social History Tobacco Use Types Packs/Day [...] Telephone Encounter - Luci Yu RN - 11/10/2023 9:[address] scan with pt per Dr. Humphries. ----- Message from Aviva Humphries MD sent at 11/09/2023 8:47 PM CDT ----- Please let Narda know [...] st Contact Info) Description 08/04/2024 1:00 PM DYNAMICS AX CONSULTANT Appointment [facility] Infusion Center [facility] [address] [place] [phone] Aviva Humphries MD [address] [facility] [address] [place] [address] Infusion Chair 5, 2nd [facility] 08/25/2024 1:00 PM DYNAMICS AX CONSULTANT Office Visit [facility] Gynecologic Oncology [place] [address] [facility] [address] [place] [address] Edilia Pettit NP [address] [facility] [address] [place] [address] 08/25/2024 1:30 PM DYNAMICS AX CONSULTANT Appointment [facility] Infusion Center [facility] [address] [place] [phone] Aviva Humphries MD [address] [facility] [address] [place] [address] Infusion Chair 1, [address] [place] [address] 09/01/2024 10:45 AM DYNAMICS AX CONSULTANT Appointment Randy [facility] Nuclear Medicine [address] [place] [phone] [id number] Edilia Pettit, CHELY [address] [facility] [address] [place] [address] documented as of this encounter Visit Diagnoses Not on filedocumented in this encounter Care Teams Enrollment Representative Relationship Specialty Start Date End Date Shilo Soares MD [address] [place] [address] PCP - General Internal Medicine 04/24/23 documented as of this encounter
--- OUTSIDE RECORDS SUMMARY | 2024-07-26 23:55 | XMS_ITS | Encounter Summary ---
Author Organization [facility] Address [address] [place] [address] Care Team Providers Care Associate Team Physician Name Role Phone Shilo Soares MD Primary Care Provider [phone] Encounter Details Date Type Department Care Team (Late Contact Info) Description 10/23/2023 External Device Data STL ABSTRACTION Provider, Abstract [...] (Late Contact Info) Description 08/04/2024 1:00 PM SKIP MINER BLASTING Appointment [facility] 2nd [place] [address] [place] [address] Aviva Humphries MD [address] [place] [address] Infusion Chair 5, 2nd Floor Hall 08/25/2024 1:00 PM SKIP MINER BLASTING Office Visit [facility] Gynecologic Oncology Hall [address] [place] [address] Edilia Pettit, CHELY [address] [facility] [place] [phone] 08/25/2024 1:30 PM SKIP MINER BLASTING Appointment [facility] Center 2nd Fl [address] [place] [address] Aviva Humphries MD [address] [place] [address] Infusion Chair 1, 2nd Floor [place] 09/01/2024 10:45 AM SKIP MINER BLASTING Appointment Randy Hall [facility] Nuclear Medicine [address] [place] [address] [id number] Edilia Pettit, CHELY [address] [facility] [address] [place] [address] documented as of this encounter Visit Diagnoses Not on filedocumented in this encounter Care Teams Associate Team Physician Relationship Specialty Start Date End Date Shilo Soares MD [address] [place] [address] PCP - General Internal Medicine 04/24/23 documented as of this encounter
--- OUTSIDE RECORDS SUMMARY | 2024-07-26 23:55 | XMS_ITS | Encounter Summary ---
Author Organization [employer] Address [address] [place] [address] Care Team Providers Care Insurance Loss Control Surveyor Name Role Phone Shilo Soares MD Primary Care Provider [phone] Reason for Visit * Tx/Med Therapy Plan Auth (Routine) - Authorized Specialty Diagnoses / Procedures Referred By Alison gomez Referred To Contact Diagnoses Malignant neoplasm of ovary, unspecified laterality Encounter for antineoplastic chemotherapy Nausea Procedures DC PACLITAXEL INJECTION DC CARBOPLATIN INJECTION DC INJ MVASI 10 MG DC FOSAPREPITANT INJECTION DC PALONOSETRON HCL DC DEXAMETHASONE SODIUM PHOS DC METHYLPREDNISOLONE INJECTION DC DIPHENHYDRAMINE HCL INJECTIO DC INJECTION, FAMOTIDINE, 20 MG TAXOL, CARBO, MVASI, EMEND, ALOXI, DECADRON, SOLU MEDROL, BENADRYL, PEPCID Aviva Humphries MD [address] [facility] [address] [place] [address] [facility] 2nd Floor [place] [address] [place] [address] Referral ID Status Reason Start Date Expiration Date V isits Requested Visits Authorized [id number] Authorized 05/20/2023 05/26/2025 99 99 Encounter Details Date Type Department Care Team (Latest Contact Info) Description 11/26/2023 12:32 PM CDT - 11/26/2023 11:59 PM CDT Hospital Encounter Randy [facility] Infusion Center 2nd Fl [address] [place] [address] Aviva Humphries MD [address] [facility] [address] [address] [place] [address] Infusion Chair 9, 2nd Floor Hall Discharge Disposition: Home or [...] Sign Reading Time Taken Comments Blood Pressure 140/76 11/26/2023 1:57 PM CDT Pulse 84 11/26/2023 1:57 PM CDT Temperature 36.2 ??C (97.2 ??F) 11/26/2023 1:57 PM CD T Respiratory Rate 16 11/26/2023 1:57 PM CDT Oxygen Saturation - - Inhaled Oxygen Concentration - - Weight 49.4 kg (109 lb) 11/26/2023 2:27 PM CDT Height - - Body Mass Index 17.59 11/16/2023 9:48 AM CDT documented in this encounter Medications [...] bedtime. 02/26/2021 fluticasone propionate (FLONASE) 50 mcg/spray [place], Suspension nasal inhaler Administer 2 Sprays in [...] 10/05/2023 12/14/2023 documented as of this encounter Progress Notes * Chata Mendez RN - 11/26/2023 1:00 PM CDT Pt admitted to infusion [...] Pt verbalized understanding. Discharged home. Next infusion appt is 12/17/23. documented in this encounter Plan of Treatment Upcoming Encounters Date Type Department Care Team (Late st Contact Info) Description 08/04/2024 1:00 PM PROBATE JUDGE Appointment Randy [facility] Infusion Center [address]nd [place] [address] [place] [address] Aviva Humphries MD [address] [facility] [address] [place] [address] Infusion Chair 5, 2nd Floor Hall 08/25/2024 1:00 PM PROBATE JUDGE Office Visit [facility] Gynecologic Oncology [place] [address] [facility] [address] [place] [address] Edilia Pettit, CHELY [address] [address] 08/25/2024 1:30 PM PROBATE JUDGE Appointment [facility] Infusion Center 2nd [place] [address] [place] [address] Aviva Humphries MD [address] [facility] [address] [facility] [place] [address] Infusion Chair 1, [address] [place] [address] 09/01/2024 10:45 AM PROBATE JUDGE Appointment [facility] Nuclear Medicine [address] [place] [phone] [id number] Edilia Pettit, CHELY [address] [address] documented as of this encounter Results * (ABNORMAL) URINALYSIS WITH REFLEX MICROSCOPIC (11/26/2023 12:22 PM CDT) COLOR UA Colorless(A ) Pale to Dark Yellow 11/26/2023 1:11 PM CDT [facility] LABORATORY [facility] CLARITY UA Clear Clear 11/26/2023 1:11 PM CDT [facility] SPECIFIC GRAVITY UA 1.002(L) 1.003 - 1.035 11/26/2023 1:11 PM CDT [facility] LABORATORY SERVICES - [facility] PH UA 6.0 5.0 - 8.0 11/26/2023 1:11 PM CDT [facility] LABORATORY SERVICES - [facility] LEUKOCYTE ESTERASE UA Negative Negative 11/26/2023 1:11 PM CDT [facility] LABORATORY SERVICES - . [facility] NITRITE UA Negative Negative 11/26/2023 1:11 PM CDT [facility] LABORATORY SERVICES - . [facility] PROTEIN UA Negative Negative 11/26/2023 1:11 PM CDT [facility] LABORATORY SERVICES - . [facility] GLUCOSE UA Negative Negative 11/26/2023 1:11 PM CDT [facility] LABORATORY SERVICES - [facility] KETONES UA Negative Negative 11/26/2023 1:11 PM CDT [facility] LABORATORY SERVICES - [facility] UROBILINOGEN UA Normal <2.0 mg/dL 1:11 PM CDT [facility] LABORATORY SERVICES - [facility] BILIRUBIN UA Negative Negative 11/26/2023 1:11 PM CDT [facility] LABORATORY SERVICES - [facility] BLOOD UA 1+(A) Negative 11/26/2023 1:11 PM CDT [facility] LABORATORY SERVICES - [facility] WBC UA 0-2 0 - 2 /hpf 11/26/2023 1:11 PM CDT [facility] LABORATORY SERVICES - . [facility] RBC UA 0-2 0 - 2 /hpf 11/26/2023 1:11 PM CDT [facility] LABORATORY SERVICES - [facility] BACTERIA UA Negative Negative /hpf 11/26/2023 1:11 PM CDT [facility] LABORATORY SERVICES - [facility] Urine URINE SPECIMEN OBTAINED BY CLEAN CATCH PROCEDURE / Unknown Collection / Unknown 11/26/2023 12:22 PM CDT 11/26/2023 12:55 PM CDT Aviva Humphries MD URINE ORDERABLES [facility] [id number] [address] [facility] KAYLEY SALGUEROSLAVA HASKINSJUVENAL [place] [address] * CANCER ANTIGEN 125 (11/26/2023 12:22 PM CDT) CA 125 7 <35 U/mL [facility] Comment: This test was performed using the Siemens Chemiluminescent method. Values obtained from different assay methods cannot be used interchangeably. CA 125 levels, regardless of value, should not be interpreted as absolute evidence of the presence or absence of disease. Test Performed at: [address] ??[address] Radha Perez MD Blood 11/26/2023 12:2 2 PM CDT 11/26/2023 12:33 PM CDT Aviva Humphries MD CHEMISTRY ORDERABLES [facility] [phone] [address] * MAGNESIUM LEVEL (11/26/2023 12:22 PM CDT) Pathologist [facility] MAGNESIUM 2.1 1.6 - 2.4 mg/dL 11/26/2023 1:40 PM CDT [facility] LABORATORY SERVICES [facility] Blood Collection / Unknown 11/26/2023 12:22 PM CDT 11/26/2023 12:57 PM CDT Aviva Humphries MD CHEMISTRY ORDERABLES [facility] LABORATORY SERVICES [facility] CLIA# [id number] 5 [place] [address] * (ABNORMAL) COMPREHENSIVE METABOLIC PANEL (11/26/2023 12:22 PM CDT) SODIUM 140 136 - 145 mmol/L 11/26/2023 1:40 PM CDT [facility] LABORATORY SERVICES - [facility] POTASSIUM 3.8 3.5 - 5.0 mmol/L 11/26/2023 1:40 PM CDT [facility] LABORATORY SERVICES [facility] CHLORIDE 103 98 - 107 mmol/L 11/26/2023 1:40 PM CDT [facility] LABORATORY SERVICES - [facility] CO2 26 22 - 29 mmol/L 11/26/2023 1:40 PM CDT [facility] LABORATORY SERVICES - [facility] CALCIUM 9.6 8.6 - 10.2 mg/dL 11/26/2023 1:40 PM CDT [facility] LABORATORY SERVICES - [facility] BUN 10 8 - 23 mg/dL 11/26/2023 1:40 PM T [facility] LABORATORY SERVICES - [facility] CREATININE 0.94 0.51 - 0.95 mg/dL 11/26/2023 1:40 PM T [facility] LABORATORY SERVICES - [facility] GLUCOSE 112(H) 74 - 99 mg/dL 11/26/2023 1:40 PM T [facility] LABORATORY SERVICES - . [facility] TOTAL PROTEIN 7.8 6.7 - 8.6 g/dL 11/26/2023 1:40 PM T [facility] LABORATORY SERVICES - . [facility] ALBUMIN 4.5 3.5 - 5.2 g/dL 11/26/2023 1:40 PM T [facility] LABORATORY SERVICES - [facility] BILIRUBIN TOTAL 0.4 0.2 - 1.1 mg/dL 11/26/2023 1:40 PM T [facility] LABORATORY SERVICES - [facility] ALKALINE PHOSPHATASE 96 35 - 104 U/L 11/26/2023 1:40 PM T [facility] LABORATORY SERVICES - [facility] AST 21 <33 U/L 11/26/2023 1:40 PM T [facility] LABORATORY SERVICES - [facility] ALT 24 <34 U/L 11/26/2023 1:40 PM T [facility] LABORATORY SERVICES - [facility] GFR >60 >=60 mL/min/1.7 3 sq meter 11/26/2023 1:40 PM T [facility] LABORATORY SERVICES - [facility] Comment:eGFR calculated with 2020 CKD-EPI equation. Vegetarian diet, extremely high or low muscle mass, and may affect results. Cystatin C with Glomerular Filtration Rate is a suitable alternative for these patients. ANION GAP 11 8 - 16 mmol/L 11/26/2023 1:40 PM T [facility] LABORATORY SERVICES - [facility] Blood Collection / Unknown 11/26/2023 12:22 PM CDT 11/26/2023 12:57 PM CDT [facility] LABORATORY SERVICES - [facility] - 11/26/2023 1:40 PM CDT Samples containing indocyanine green cause interferences on Total and/or Direct Bilirubin and must not be measured. Aviva Humphries MD CHEMISTRY ORDERABLES [facility] LABORATORY SERVICES - [facility]# [id number] [place] [place] [address] * (ABNORMAL) CBC WITH DIFFERENTIAL (11/26/2023 12:22 PM CDT) Pathologist [facility] WBC 5.0 4.0 - 9.8 K/uL 11/26/2023 12:44 PM CDT [facility] LABORATORY SERVICES - . [facility] RBC 3.54(L) 3.90 - 4.90 M/uL 11/26/2023 12:44 PM CDT [facility] LABORATORY SERVICES - . [facility] HEMOGLOBIN 11.7(L) 11.8 - 14.8 g/dL 11/26/2023 12:44 PM CDT [facility] LABORATORY SERVICES - [facility] HEMATOCRIT 35.7 35.5 - 44.0 % 11/26/2023 12:44 PM CDT [facility] LABORATORY SERVICES - [facility] MCV 100.8(H) 82.0 - 99.0 fL 11/26/2023 12:44 PM CDT [facility] LABORATORY SERVICES - [facility] MCH 33.1(H) 27.2 - 32.6 pg 11/26/2023 12:44 PM CDT [facility] LABORATORY SERVICES - [facility] MCHC 32.8 31.5 - 35.5 g/dL 11/26/2023 12:44 PM CDT [facility] LABORATORY SERVICES - . [facility] RDW 17.2(H) 11.5 - 14.5 % 11/26/2023 12:44 PM CDT [facility] LABORATORY SERVICES - [facility] RDW-STDEV 63.4(H) 37.1 - 48.7 fL 11/26/2023 12:44 PM CDT [facility] LABORATORY SERVICES - . [facility] PLATELETS 262 140 - 350 K/uL 11/26/2023 12:44 PM CDT [facility] LABORATORY SERVICES - . [facility] MPV 9.2(L) 9.3 - 12.4 fL 11/26/2023 12:44 PM CDT [facility] LABORATORY SERVICES - . [facility] NEUTROPHILS 57 % 11/26/2023 12:44 PM CDT [facility] LYMPHOCYTES 33 % 11/26/2023 12:44 PM CDT [facility] LABORATORY SERVICES - [facility] MONOCYTES 9 % 11/26/2023 12:44 PM CDT [facility] EOSINOPHILS 1 % 11/26/2023 12:44 PM CDT [facility] BASOPHILS 1 % 11/26/2023 12:44 PM CDT [facility] IMMATURE GRANULOCYTES 0 % 11/26/2023 12:44 PM CDT [facility] NEUTROPHIL ABSOLUTE 2.89 1.90 - 7.00 K/uL 11/26/2023 12:44 PM CDT [facility] LABORATORY SERVICES - [facility] LYMPHOCYTE ABSOLUTE 1.65 0.70 - 4.50 K/uL 11/26/2023 12:44 PM CDT [facility] MONOCYTE ABSOLUTE 0.43 0.10 - 1.30 K/uL 11/26/2023 12:44 PM CDT [facility] LABORATORY SERVICES - [facility] EOSINOPHIL ABSOLUTE 0.03 0.00 - 0.70 K/uL 11/26/2023 12:44 PM CDT [facility] LABORATORY SERVICES - [facility] BASOPHILS ABSOLUTE 0.03 0.00 - 0.20 K/uL 11/26/2023 12:44 PM CDT [facility] LABORATORY SERVICES - [facility] IMMATURE GRANULOCYTES ABSOLUTE 0.01 0.00 - 0.03 K/uL 11/26/2023 12:44 PM CDT [facility]ATORY SERVICES - [facility] Blood Collection / Unknown 11/26/2023 12:22 PM CDT 11/26/2023 12:41 PM CDT Aviva Humphries MD HEMATOLOGY ORDERABLE S [facility] LABORATORY SERVICES - [facility]# [id number] [address] [facility] GEETHA KAYLEY DANIEL ALMONTE [place] [id number] documented in this encounter Visit Diagnoses Diagnosis [...] ONLY, 1 dose, On Peace 11/26/23 at 1400, Routine New Bag 11/26/2023 2:33 PM CDT 773 mg 291.8 mL/hr sodium chloride 0.9% infusion IV, at 30-999 mL/hr, CONTINUOUS, Starting on Peace 11/26/23 at 1400, Until Thu11/27/23 at 0306, Routine New Bag 11/26/2023 2:29 PM CDT 30 mL/hr 30 mL/hr documented in this encounter Care Teams Insurance Loss Control Surveyor Relationship Specialty Start Date End Date Shilo Soares MD [address] [place] [address] PCP - General Internal Medicine 04/24/23 documented as of this encounter
--- OUTSIDE RECORDS SUMMARY | 2024-07-26 23:55 | XMS_ITS | Encounter Summary ---
Author Organization [facility] Address [address] [place] [address] Care Team Providers Care Lead Ios Developer Name Role Phone Shilo Soares MD Primary Care Provider [phone] Encounter Details Date Type Department Care Team (Late st Contact Info) Description 11/19/2023 Orders Only [facility] Gynecologic Oncology Hall [address] [place] [address] Stevie Chavarria RN Social History [...] Contact Info) Description 08/04/2024 1:00 PM SENIOR MARKET INTELLIGENCE CONSULTANT Appointment Randy [facility] Infusion Center 2nd Fl [address] [place] [address] Aviva Humphries MD [address] [place] [address] Infusion Chair 5, 2nd Floor Hall 08/25/2024 1:00 PM SENIOR MARKET INTELLIGENCE CONSULTANT Office Visit [facility] Gynecologic Oncology Hall [address] [place] [address] Edilia Pettit, CHELY [address] [facility] [facility] [address] [place] [address] 08/25/2024 1:30 PM SENIOR MARKET INTELLIGENCE CONSULTANT Appointment Randy [facility] Infusion Center 2nd [place] [address] [place] [address] Aviva Humphries MD [address] [place] [address] Infusion Chair 1, 2nd Floor [place] 09/01/2024 10:45 AM SENIOR MARKET INTELLIGENCE CONSULTANT Appointment [facility] Nuclear Medicine [address] [place] [address] [id number] Edilia Pettit, CHELY [address] [facility] [address] [place] [address] documented as of this encounter Visit Diagnoses Not on filedocumented in this encounter Care Teams Lead Ios Developer Relationship Specialty Start Date End Date Shilo Soares MD [address] [place] [address] PCP - General Internal Medicine 04/24/23 documented as of this encounter
--- OUTSIDE RECORDS SUMMARY | 2024-07-26 23:55 | XMS_ITS | Encounter Summary ---
Author Organization [facility] Address [address] [place] [address] Care Team Providers Care Gas And Oil Checker Name Role Phone Shilo Soares MD Primary Care Provider [phone] Encounter Details Date Type Department Care Team [...] Contact Info) Description 08/04/2024 1:00 PM NETWORK SYSTEMS ANALYST Appointment [facility] Infusion Center 2nd Ri [address] [place] [address] Aviva Humphries MD [address] [place] [address] Infusion Chair 5, 2nd Floor Hall 08/25/2024 1:00 PM NETWORK SYSTEMS ANALYST Office Visit [facility] Gynecologic Oncology Hall [address] [place] [address] Edilia Pettit, CHELY [address] [place] [phone] 08/25/2024 1:30 PM NETWORK SYSTEMS ANALYST Appointment [facility] 2nd Fl [address] [place] [address] Aviva Humphries MD [address] [place] [address] Infusion Chair 1, 2nd Floor [place] 09/01/2024 10:45 AM NETWORK SYSTEMS ANALYST Appointment Randy [facility] Nuclear Medicine [address] [place] [address] [id number] Edilia Pettit, CHELY [address] [facility] [address] [place] [address] documented as of this encounter Visit Diagnoses Not on filedocumented in this encounter Care Teams Gas And Oil Checker Relationship Specialty Start Date End Date Shilo Soares MD [address] [place] [address] PCP - General Internal Medicine 04/24/23 documented as of this encounter
--- OUTSIDE RECORDS SUMMARY | 2024-07-26 23:55 | XMS_ITS | Encounter Summary ---
Author Organization [facility] Address [address] [place] [address] Care Team Providers Care Host Coordinator Name Role Phone Shilo Soares MD Primary Care Provider [phone] Encounter Details Date Type Department Care Team (Late Contact Info) Description 10/24/2023 External Device Data STL ABSTRACTION Provider, Abstract [...] (Late Contact Info) Description 08/04/2024 1:00 PM PAIN COORDINATOR Appointment [facility] [address] [place] [address] Aviva Humphries MD [address] [place] [address] Infusion Chair 5, 2nd Floor Hall 08/25/2024 1:00 PM PAIN COORDINATOR Office Visit [facility] Gynecologic Oncology [place] [address] [place] [address] Edilia Pettit, CHELY [address] [place] [address] 08/25/2024 1:30 PM PAIN COORDINATOR Appointment [facility]fusion Center 2nd Fl [address] [place] [address] Aviva Humphries MD [address] [place] [address] Infusion Chair 1, 2nd Floor [place] 09/01/2024 10:45 AM PAIN COORDINATOR Appointment Randy [facility] Nuclear Medicine [address] [place] [address] [id number] Edilia Pettit, CHELY [address] [facility] [address] [place] [address] documented as of this encounter Visit Diagnoses Not on filedocumented in this encounter Care Teams Host Coordinator Relationship Specialty Start Date End Date Shilo oSares MD [address] [place] [address] PCP - General Internal Medicine 04/24/23 documented as of this encounter
--- OUTSIDE RECORDS SUMMARY | 2024-07-26 23:55 | XMS_ITS | Encounter Summary ---
Author Organization [facility] Address [address] [place] [address] Care Team Providers Care Watch Dial Maker Name Role Phone Shilo Soares MD Primary Care Provider [phone] Encounter Details Date Type Department Care Team (Late Contact Info) Description 10/29/2023 External Device Data STL ABSTRACTION Provider, Abstract [...] (Late Contact Info) Description 08/04/2024 1:00 PM VACUUM DRUM DRIER OPERATOR Appointment [facility] 2nd Nd [address] [place] [address] Aviva Humphries MD [address] [place] [address] Infusion Chair 5, 2nd Floor [place] 08/25/2024 1:00 PM VACUUM DRUM DRIER OPERATOR Office Visit [facility] Gynecologic Oncology Hall [address] [place] [address] Edilia Pettit, CHELY [address] [facility] [address] [place] [address] 08/25/2024 1:30 PM VACUUM DRUM DRIER OPERATOR Appointment [facility] Center 2nd Fl [address] [place] [address] Aviva Humphries MD [address] [place] [address] Infusion Chair 1, 2nd Floor [place] 09/01/2024 10:45 AM VACUUM DRUM DRIER OPERATOR Appointment Randy [facility] Nuclear Medicine [address] [place] [address] [id number] Edilia Pettit, CHELY [address] [facility] [address] [place] [address] documented as of this encounter Visit Diagnoses Not on filedocumented in this encounter Care Teams Watch Dial Maker Relationship Specialty Start Date End Date Shilo Soares MD [address] [place] [address] PCP - General Internal Medicine 04/24/23 documented as of this encounter
--- OUTSIDE RECORDS SUMMARY | 2024-07-26 23:55 | XMS_ITS | Encounter Summary ---
Author Organization [facility] Address [address] [place] [address] Care Team Providers Care Compensation Supervisor Name Role Phone Shilo Soares MD Primary Care Provider [phone] Encounter Details Date Type Department Care Team (Late Contact Info) Description 11/18/2023 External Device Data STL ABSTRACTION Provider, Abstract [...] Contact Info) Description 08/04/2024 1:00 PM MANAGER RECOVERY Appointment [facility]fusion [facility] 2nd Ri [address] [place] [address] Aviva Humphries MD [address] [place] [address] Infusion Chair 5, 2nd Floor [place] 08/25/2024 1:00 PM MANAGER RECOVERY Office Visit [facility] Gynecologic Oncology Hall [address] [place] [address] Edilia Pettit, CHELY [address] [place] [address] 08/25/2024 1:30 PM MANAGER RECOVERY Appointment [facility] Center 2nd Fl [address] [place] [address] Aviva Humphries MD [address] [place] [address] Infusion Chair 1, 2nd Floor [place] 09/01/2024 10:45 AM MANAGER RECOVERY Appointment Randy [facility] Nuclear Medicine [address] [place] [address] [id number] Edilia Pettit, CHELY [address] [facility] [address] [place] [address] documented as of this encounter Visit Diagnoses Not on filedocumented in this encounter Care Teams Compensation Supervisor Relationship Specialty Start Date End Date Shilo Soares MD [address] [place] [address] PCP - General Internal Medicine 04/24/23 documented as of this encounter
--- OUTSIDE RECORDS SUMMARY | 2024-07-26 23:55 | XMS_ITS | Encounter Summary ---
Author Organization [facility] Address [address] [place] [address] Care Team Providers Care Observer Gravity Prospecting Name Role Phone Shilo Soares MD Primary Care Provider [phone] Encounter Details Date Type Department Care Team (Late Contact Info) Description 11/01/2023 External Device Data STL ABSTRACTION Provider, Abstract [...] (Late Contact Info) Description 08/04/2024 1:00 PM CRIME SCENE PHOTOGRAPHER Appointment [facility] [address] [place] [address] Aviva Humphries MD [address] [place] [address] Infusion Chair 5, 2nd Floor Hall 08/25/2024 1:00 PM CRIME SCENE PHOTOGRAPHER Office Visit [facility] Gynecologic Oncology Hall [address] [place] [address] Edilia Pettit, CHELY [address] [place] [address] 08/25/2024 1:30 PM CRIME SCENE PHOTOGRAPHER Appointment [facility] 2nd Fl [address] [place] [address] Aviva Humphries MD [address] [place] [address] Infusion Chair 1, 2nd Floor [place] 09/01/2024 10:45 AM CRIME SCENE PHOTOGRAPHER Appointment [facility] Nuclear Medicine [address] [place] [address] [id number] Edilia Pettit, CHELY [address] [facility] [address] [place] [address] documented as of this encounter Visit Diagnoses Not on filedocumented in this encounter Care Teams Observer Gravity Prospecting Relationship Specialty Start Date End Date Shilo Soares MD [address] [place] [address] PCP - General Internal Medicine 04/24/23 documented as of this encounter
--- OUTSIDE RECORDS SUMMARY | 2024-07-26 23:55 | XMS_ITS | Encounter Summary ---
Author Organization [facility] Address [address] [place] [address] Care Team Providers Care Talent Acquisition Operations Manager Name Role Phone Shilo Soares MD Primary Care Provider [phone] Encounter Details Date Type Department Care Team [...] (Late Contact Info) Description 08/04/2024 1:00 PM ENGRAVER ORNAMENTAL DESIGN Appointment [facility] 2nd Ut [address] [place] [address] Aviva Humphries MD [address] [place] [address] Infusion Chair 5, 2nd Floor Hall 08/25/2024 1:00 PM ENGRAVER ORNAMENTAL DESIGN Office Visit [facility] Gynecologic Oncology Hall [address] [place] [address] Edilia Pettit, CHELY [address] [place] [address] 08/25/2024 1:30 PM ENGRAVER ORNAMENTAL DESIGN Appointment [facility] 2nd Fl [address] [place] [address] Aviva Humphries MD [address] [place] [address] Infusion Chair 1, 2nd Floor [place] 09/01/2024 10:45 AM ENGRAVER ORNAMENTAL DESIGN Appointment [facility] Nuclear Medicine [address] [place] [address] [id number] Edilia Pettit, CHELY [address] [facility] [address] [place] [address] documented as of this encounter Visit Diagnoses Not on filedocumented in this encounter Care Teams Talent Acquisition Operations Manager Relationship Specialty Start Date End Date Shilo Soares MD [address] [place] [address] PCP - General Internal Medicine 04/24/23 documented as of this encounter
--- OUTSIDE RECORDS SUMMARY | 2024-07-26 23:55 | XMS_ITS | Encounter Summary ---
Author Organization [facility] Address [address] [place] [address] Care Team Providers Care Chief Librarian Circulation Department Name Role Phone Shilo Soares MD Primary Care Provider [phone] Encounter Details Date Type Department Care Team [...] Contact Info) Description 08/04/2024 1:00 PM AUTOMOTIVE SERVICE ASSISTANT Appointment [facility] 2nd Mi [address] [place] [address] Aviva Humphries MD [address] [place] [address] Infusion Chair 5, 2nd Floor Hall 08/25/2024 1:00 PM AUTOMOTIVE SERVICE ASSISTANT Office Visit [facility] Gynecologic Oncology Hall [address] [place] [address] Edilia Pettit, CHELY [address] [address] [facility] [address] [place] [address] 08/25/2024 1:30 PM AUTOMOTIVE SERVICE ASSISTANT Appointment [facility] 2nd Fl [address] [place] [address] Aviva Humphries MD [address] [place] [address] Infusion Chair 1, 2nd Floor [place] 09/01/2024 10:45 AM AUTOMOTIVE SERVICE ASSISTANT Appointment [facility] Nuclear Medicine [address] [place] [address] [id number] Edilia Pettit, CHELY [address] [facility] [address] [place] [address] documented as of this encounter Visit Diagnoses Not on filedocumented in this encounter Care Teams Chief Librarian Circulation Department Relationship Specialty Start Date End Date Shilo Soares MD [address] [place] [address] PCP - General Internal Medicine 04/24/23 documented as of this encounter
--- OUTSIDE RECORDS SUMMARY | 2024-07-26 23:55 | XMS_ITS | Encounter Summary ---
Author Organization [facility] Address [address] [place] [address] Care Team Providers Care Jitterbug Operator Name Role Phone Shilo Soares MD Primary Care Provider [phone] Encounter Details Date Type Department Care Team (Late Contact Info) Description 11/13/2023 External Device Data STL ABSTRACTION Provider, Abstract [...] (Late Contact Info) Description 08/04/2024 1:00 PM CULLET CRUSHER AND WASHER Appointment [facility] 2nd De [address] [place] [address] Aviva Humphries MD [address] [place] [address] Infusion Chair 5, 2nd Floor [place] 08/25/2024 1:00 PM CULLET CRUSHER AND WASHER Office Visit [facility] Gynecologic Oncology Hall [address] [place] [address] Edilia Pettit, CHELY [address] [address] [place] [address] 08/25/2024 1:30 PM CULLET CRUSHER AND WASHER Appointment [facility] 2nd Fl [address] [place] [address] Aviva Humphries MD [address] [place] [address] Infusion Chair 1, 2nd Floor [place] 09/01/2024 10:45 AM CULLET CRUSHER AND WASHER Appointment [facility] Nuclear Medicine [address] [place] [address] [id number] Edilia Pettit, CHELY [address] [facility] [address] [place] [address] documented as of this encounter Visit Diagnoses Not on filedocumented in this encounter Care Teams Jitterbug Operator Relationship Specialty Start Date End Date Shilo Soares MD [address] [place] [address] PCP - General Internal Medicine 04/24/23 documented as of this encounter
--- OUTSIDE RECORDS SUMMARY | 2024-07-26 23:55 | XMS_ITS | Encounter Summary ---
Author Organization [facility] Address [address] [place] [address] Care Team Providers Care Rn Document Improvement Name Role Phone Shilo Soares MD Primary Care Provider [phone] Encounter Details Date Type Department Care Team (Late Contact Info) Description 10/31/2023 External Device Data STL ABSTRACTION Provider, Abstract [...] (Late Contact Info) Description 08/04/2024 1:00 PM ENVIRONMENTAL HEALTH PHYSICIAN Appointment [facility] 2nd Tn [address] [place] [address] Aviva Humphries MD [address] [place] [address] Infusion Chair 5, 2nd Floor [place] 08/25/2024 1:00 PM ENVIRONMENTAL HEALTH PHYSICIAN Office Visit [facility] Gynecologic Oncology Hall [address] [place] [address] Edilia Pettit, CHELY [address] [address] [place] [address] 08/25/2024 1:30 PM ENVIRONMENTAL HEALTH PHYSICIAN Appointment [facility] 2nd Fl [address] [place] [address] Aviva Humphries MD [address] [place] [address] Infusion Chair 1, 2nd Floor [place] 09/01/2024 10:45 AM ENVIRONMENTAL HEALTH PHYSICIAN Appointment [facility] Nuclear Medicine [address] [place] [address] [id number] Edilia Pettit, CHELY [address] [facility] [address] [place] [address] documented as of this encounter Visit Diagnoses Not on filedocumented in this encounter Care Teams Rn Document Improvement Relationship Specialty Start Date End Date Shilo Soares MD [address] [place] [address] PCP - General Internal Medicine 04/24/23 documented as of this encounter
--- OUTSIDE RECORDS SUMMARY | 2024-07-26 23:55 | XMS_ITS | Encounter Summary ---
Author Organization [facility] Address [address] [place] [address] Care Team Providers Care Remelt Sugar Boiler Name Role Phone Shilo Soares MD Primary Care Provider [phone] Encounter Details Date Type Department Care Team [...] Contact Info) Description 08/04/2024 1:00 PM AIR QUALITY MANAGER Appointment [facility] 2nd Ca [address] [place] [address] Aviva Humphries MD [address] [place] [address] Infusion Chair 5, 2nd Floor [place] 08/25/2024 1:00 PM AIR QUALITY MANAGER Office Visit [facility] Gynecologic Oncology Hall [address] [place] [address] Edilia Pettit, CHELY [address] [place] [address] 08/25/2024 1:30 PM AIR QUALITY MANAGER Appointment [facility] 2nd Fl [address] [place] [address] Aviva Humphries MD [address] [place] [address] Infusion Chair 1, 2nd Floor [place] 09/01/2024 10:45 AM AIR QUALITY MANAGER Appointment [facility] Nuclear Medicine [address] [place] [address] [id number] Edilia Pettit, CHELY [address] [facility] [address] [place] [address] documented as of this encounter Visit Diagnoses Not on filedocumented in this encounter Care Teams Remelt Sugar Boiler Relationship Specialty Start Date End Date Shilo Soares MD [address] [place] [address] PCP - General Internal Medicine 04/24/23 documented as of this encounter
--- OUTSIDE RECORDS SUMMARY | 2024-07-26 23:55 | XMS_ITS | Encounter Summary ---
Author Organization [facility] Address [address] [place] [address] Care Team Providers Care Arts And Sciences Dean Name Role Phone Shilo Soares MD Primary Care Provider [phone] Encounter Details Date Type Department Care Team (Late st Contact Info) Description 11/19/2023 Specialty Pharmacy [facility] [place] [address] [facility] [place] [address] Kaley Decker, PHARMACIST Specialty Pharmacy Refill Coordination Social History Tobacco Use Types Packs/Day [...] Progress Notes * Nina Flores - 11/19/2023 12:21 PM CDT [facility] Referral Coordination Note Narda Arellano Tiarra 1960 Name of medication, strength, formulation: LYNPARZA 150MG TABLETS Please escribe to: Name of specialty pharmacy: [facility] Location: [place], [place] Phone number: [phone] Fax number: [phone] [facility] will contact prescriber to forward to [facility]. Yes [facility] will verify prescriber has sent to [facility]. Yes [facility] will contact patient with above information and dis-enroll Yes Completed by: Nina Flores documented in this encounter Plan of Treatment Upcoming Encounters Date Type Department Care Team (Late st Contact Info) Description 08/04/2024 1:00 PM AUTOMATIC MACHINES SUPERVISOR Appointment [facility] Infusion Center [facility] [address] [place] [address] Aviva Humphries MD [address] [facility] [address] [place] [address] Infusion Chair 5, 2nd Floor [place] 08/25/2024 1:00 PM AUTOMATIC MACHINES SUPERVISOR Office Visit [facility] Gynecologic Oncology [place] [address] [facility] [address] [place] [address] Edilia Pettit, CHELY [address] [address] 08/25/2024 1:30 PM AUTOMATIC MACHINES SUPERVISOR Appointment [facility] Infusion Center [facility] [address] [place] [address] Aviva Humphries MD [address] [facility] [address] [facility] [place] [address] Infusion Chair 1, 2nd Floor [place] 09/01/2024 10:45 AM AUTOMATIC MACHINES SUPERVISOR Appointment [facility] Nuclear Medicine [address] [place] [address] [id number] Edilia Pettit, CHELY [address] [facility] [address] [place] [address] documented as of this encounter Visit Diagnoses Not on filedocumented in this encounter Care Teams Arts And Sciences Dean Relationship Specialty Start Date End Date Shilo Soares MD [address] [address] PCP - General Internal Medicine 04/24/23 documented as of this encounter
--- OUTSIDE RECORDS SUMMARY | 2024-07-26 23:55 | XMS_ITS | Encounter Summary ---
Author Organization [facility] Address [address] [place] [address] Care Team Providers Care Board Catcher Name Role Phone Shilo Soares MD Primary Care Provider [phone] Encounter Details Date Type Department Care Team [...] (Late Contact Info) Description 08/04/2024 1:00 PM MD PHYSICIAN DERMATOLOGIST Appointment [facility] 2nd Nm [address] [place] [address] Aviva Humphries MD [address] [place] [address] Infusion Chair 5, 2nd Floor [place] 08/25/2024 1:00 PM MD PHYSICIAN DERMATOLOGIST Office Visit [facility] Gynecologic Oncology Hall [address] [place] [address] Edilia Pettit, CHELY [address] [address] [facility] [address] [place] [address] 08/25/2024 1:30 PM MD PHYSICIAN DERMATOLOGIST Appointment [facility] 2nd Fl [address] [place] [address] Aviva Humphries MD [address] [facility] [facility] [address] [place] [address] Infusion Chair 1, 2nd Floor [place] 09/01/2024 10:45 AM MD PHYSICIAN DERMATOLOGIST Appointment [facility] Nuclear Medicine [address] [place] [address] [id number] Edilia Pettit, CHELY [address] [facility] [address] [place] [address] documented as of this encounter Visit Diagnoses Not on filedocumented in this encounter Care Teams Board Catcher Relationship Specialty Start Date End Date Shilo Soares MD [address] [place] [address] PCP - General Internal Medicine 04/24/23 documented as of this encounter
--- OUTSIDE RECORDS SUMMARY | 2024-07-26 23:55 | XMS_ITS | Encounter Summary ---
Author Organization [facility] Address [address] [place] [address] Care Team Providers Care Tax Services Specialist Name Role Phone Shilo Soares MD Primary Care Provider [phone] Reason for Visit * Tx/Med Therapy Plan Auth (Routine) - Authorized Specialty Diagnoses / Procedures Referred By Alison gomez Referred To Contact Diagnoses Malignant neoplasm of ovary, unspecified laterality Encounter for antineoplastic chemotherapy Nausea Procedures ID PACLITAXEL INJECTION ID CARBOPLATIN INJECTION ID INJ MVASI 10 MG ID FOSAPREPITANT INJECTION ID PALONOSETRON HCL ID DEXAMETHASONE SODIUM PHOS ID METHYLPREDNISOLONE INJECTION ID DIPHENHYDRAMINE HCL INJECTIO ID INJECTION, FAMOTIDINE, 20 MG TAXOL, CARBO, MVASI, EMEND, ALOXI, DECADRON, SOLU MEDROL, BENADRYL, PEPCID Aviva Humphries MD [address] [facility] [place] [address] [facility] 2nd Floor [place] [address] [place] [address] Referral ID Status Reason Start Date Expiration Date V isits Requested Visits Authorized [id number] Authorized 05/20/2023 05/26/2025 99 99 Encounter Details Date Type Department Care Team (Latest Contact Info) Description 11/05/2023 9:25 AM CDT - 11/05/2023 11:59 PM CDT Hospital Encounter Randy Hall [facility] Infusion Center 2nd Fl [address] [place] [address] Aviva Humphries MD [address] [place] [address] Discharge Disposition: Home or Self [...] Sign Reading Time Taken Comments Blood Pressure 153/85 11/05/2023 10:43 AM CDT Pulse 75 11/05/2023 10:43 AM CDT Temperature 36.4 ??C (97.6 ??F) 11/05/2023 10:43 AM C DT Respiratory Rate 16 11/05/2023 10:43 AM CDT Oxygen Saturation - - Inhaled Oxygen Concentration - - Weight 48.5 kg (107 lb) 11/05/2023 10:44 AM CDT Height - - Body Mass Index 17.27 09/23/2023 2:47 PM RENT AND MISCELLANEOUS REMITTANCE CLERK documented in this encounter Medications at Time [...] bedtime. 02/26/2021 fluticasone propionate (FLONASE) 50 mcg/spray Foster, Suspension nasal inhaler Administer 2 Sprays in each nostril daily. omega-3 fatty acids-fish oil 300-1,000 mg Capsule Take 2 Capsules by mouth daily. lidocaine-prilocaine (EMLA) 2.5-2.5 % Cream APPLY A THIN LAYER OVER PORT SITE 30-45 MINUTES PRIOR TO CHEMOTHERAPY. 30 Gram 10/05/2023 12/14/2023 documented as of this encounter Progress Notes * Rebekah Longo RN - 11/05/2023 10:30 AM CDT Pt admitted to infusion center for [...] Pt verbalized understanding. Discharged home. Next appt 11/26/23 documented in this encounter Plan of Treatment Upcoming Encounters Date Type Department Care Team (Late st Contact Info) Description 08/04/2024 1:00 PM RENT AND MISCELLANEOUS REMITTANCE CLERK Appointment Randy Hall [facility] 2nd Fl [address] [place] [address] Aviva Humphries MD [address] [place] [address] Infusion Chair 5, 2nd Floor [place] 08/25/2024 1:00 PM RENT AND MISCELLANEOUS REMITTANCE CLERK Office Visit [facility] Gynecologic Oncology Hall [address] [place] [address] Edilia Pettit, CHELY [address] [place] [address] 08/25/2024 1:30 PM RENT AND MISCELLANEOUS REMITTANCE CLERK Appointment [facility] [address] [place] [address] Aviva Humphries MD [address] [place] [address] Infusion Chair 1, 2nd Floor Hall 09/01/2024 10:45 AM RENT AND MISCELLANEOUS REMITTANCE CLERK Appointment [facility] Nuclear Medicine [address] [place] [address] [id number] Edilia Pettit, CHELY [address] [facility] [address] [place] [address] documented as of this encounter Results * CANCER ANTIGEN 125 (11/05/2023 9:18 AM CDT) CA 125 8 <35 U/mL [facility] Comment: This test was performed using the Siemens Chemiluminescent method. Values obtained from different assay methods cannot be used interchangeably. CA 125 levels, regardless of value, should not be interpreted as absolute evidence of the presence or absence of disease. Test Performed at: [facility] [address] [address] [place] ??[phone] Radha Perez MD Blood 11/05/2023 9:18 AM CDT 11/05/2023 9:35 AM CDT Aviva Humphries MD CHEMISTRY ORDERABLES [facility] [phone] [facility] [address] [place] [address] * MAGNESIUM LEVEL (11/05/2023 9:18 AM CDT) MAGNESIUM 2.2 1.6 - 2.4 mg/dL 11/05/2023 10:17 AM CDT [facility] - [facility] Blood Collection / Unknown 11/05/2023 9:18 AM CDT 11/05/2023 9:32 AM CDT Aviva Humphries MD CHEMISTRY ORDERABLES [facility] [id number] 5 [facility]ai [facility] [place] [id number] * (ABNORMAL) COMPREHENSIVE METABOLIC PANEL (11/05/2023 9:18 AM CDT) SODIUM 139 136 - 145 mmol/L 11/05/2023 10:17 AM CDT [facility] - . [facility] POTASSIUM 4.3 3.5 - 5.0 mmol/L 11/05/2023 10:17 AM CDT [facility] CHLORIDE 102 98 - 107 mmol/L 11/05/2023 10:17 AM CDT [facility] CO2 25 22 - 29 mmol/L 11/05/2023 10:17 AM CDT [facility] CALCIUM 9.7 8.6 - 10.2 mg/dL 11/05/2023 10:17 AM CDT [facility] BUN 9 8 - 23 mg/dL 11/05/2023 10:17 AM CDT [facility] CREATININE 0.76 0.51 - 0.95 mg/dL 11/05/2023 10:17 AM [facility] GLUCOSE 120(H) 74 - 99 mg/dL 11/05/2023 10:17 AM [facility] - . [facility] TOTAL PROTEIN 7.6 6.7 - 8.6 g/dL 11/05/2023 10:17 AM [facility] LABORATORY [facility] ALBUMIN 4.3 3.5 - 5.2 g/dL 11/05/2023 10:[address] [facility] BILIRUBIN TOTAL 0.3 0.2 - 1.1 mg/dL 11/05/2023 10:17 AM [facility] ALKALINE PHOSPHATASE 102 35 - 104 U/L 11/05/2023 10:[address] [facility] AST 21 <33 U/L 11/05/2023 10:[address] [facility] ALT 29 <34 U/L 11/05/2023 10:17 AM [facility] GFR >60 >=60 mL/min/1.7 3 sq meter 11/05/2023 10:17 AM [facility] Comment:eGFR calculated with 2020 CKD-EPI equation. Vegetarian diet, extremely high or low muscle mass, and may affect results. Cystatin C with Glomerular Filtration Rate is a suitable alternative for these patients. ANION GAP 12 8 - 16 mmol/L 11/05/2023 10:17 AM [facility] Blood Collection / Unknown 11/05/2023 9:18 AM CDT 11/05/2023 9:32 AM [facility] - 11/05/2023 10:17 AM CDT Samples containing indocyanine green cause interferences on Total and/or Direct Bilirubin and must not be measured. Aviva Humphries MD CHEMISTRY ORDERABLES [facility] CLIA# [id number] 5 [facility] KAYLEY SALGUEROSLAVA ALMONTE NAVARRO [address] * (ABNORMAL) CBC WITH DIFFERENTIAL (11/05/2023 9:18 AM CDT) WBC 5.8 4.0 - 9.8 K/uL 11/05/2023 9:30 AM CDT [facility] - [facility] RBC 3.26(L) 3.90 - 4.90 M/uL 11/05/2023 9:30 AM CDT [facility] HEMOGLOBIN 10.8(L) 11.8 - 14.8 g/dL 11/05/2023 9:30 AM CDT [facility] HEMATOCRIT 32.5(L) 35.5 - 44.0 % 11/05/2023 9:30 AM CDT [facility] - [facility] MCV 99.7(H) 82.0 - 99.0 fL 11/05/2023 9:30 AM CDT [facility] - [facility] MCH 33.1(H) 27.2 - 32.6 pg 11/05/2023 9:30 AM CDT [facility] MCHC 33.2 31.5 - 35.5 g/dL 11/05/2023 9:30 AM CDT [facility] - [facility] RDW 16.2(H) 11.5 - 14.5 % 11/05/2023 9:30 AM CDT [facility] RDW-STDEV 58.9(H) 37.1 - 48.7 fL 11/05/2023 9:30 AM CDT [facility] - [facility] PLATELETS 133(L) 140 - 350 K/uL 11/05/2023 9:30 AM CDT [facility] - [facility] MPV 8.9(L) 9.3 - 12.4 fL 11/05/2023 9:30 AM CDT [facility] - . [place] NEUTROPHILS 63 % 11/05/2023 9:30 AM CDT [facility] LYMPHOCYTES 28 % 11/05/2023 9:30 AM CDT [facility] MONOCYTES 8 % 11/05/2023 9:30 AM CDT [facility] EOSINOPHILS 0 % 11/05/2023 9:30 AM CDT [facility] - . [place] BASOPHILS 0 % 11/05/2023 9:30 AM CDT [facility] - . [facility] IMMATURE GRANULOCYTES 0 % 11/05/2023 9:30 AM CDT [facility] LABORATORY SERVICES - . [facility] NEUTROPHIL ABSOLUTE 3.68 1.90 - 7.00 K/uL 11/05/2023 9:30 AM CDT [facility]ORY SERVICES - . [facility] LYMPHOCYTE ABSOLUTE 1.65 0.70 - 4.50 K/uL 11/05/2023 9:30 AM CDT [facility]ORY SERVICES - . [place] MONOCYTE ABSOLUTE 0.44 0.10 - 1.30 K/uL 11/05/2023 9:30 AM CDT [facility]ATORY SERVICES [facility] EOSINOPHIL ABSOLUTE 0.01 0.00 - 0.70 K/uL 11/05/2023 9:30 AM CDT [facility]ORY SERVICES [facility] BASOPHILS ABSOLUTE 0.02 0.00 - 0.20 K/uL 11/05/2023 9:30 AM CDT [facility] LABORATORY SERVICES - . [facility] IMMATURE GRANULOCYTES ABSOLUTE 0.01 0.00 - 0.03 K/uL 11/05/2023 9:30 AM T [facility] LABORATORY SERVICES - . [facility] Blood Collection / Unknown 11/05/2023 9:18 AM CDT 11/05/2023 9:27 AM CDT Aviva Humphries MD HEMATOLOGY ORDERABLE S [facility] LABORATORY [facility]# [id number] [address] [facility] [place] [place] [id number] documented in this encounter Visit Diagnoses Diagnosis [...] ONE TIME ONLY, 1 dose, On Peace 11/05/23 at 1045, Routine Rate Verify 11/05/2023 11:35 AM CDT 291.8 mL/hr New Bag 11/05/2023 11:35 AM CDT 773 mg 291.8 mL/hr sodium chloride 0.9% infusion IV, at 30-999 mL/hr, CONTINUOUS, Starting on Peace 11/05/23 at 1045, Until Thu11/06/23 at 0303, Routine Rate Change 11/05/2023 12:03 PM CDT 300 mL/hr New Bag 11/05/2023 10:48 AM CDT 30 mL/hr 30 mL/hr documented in this encounter Care Teams Tax Services Specialist Relationship Specialty Start Date End Date Shilo Soares MD [address] [place] [address] PCP - General Internal Medicine 04/24/23 documented as of this encounter
--- OUTSIDE RECORDS SUMMARY | 2024-07-26 23:55 | XMS_ITS | Encounter Summary ---
Author Organization [facility] Address [address] [place] [address] Care Team Providers Care Director Home Health Name Role Phone Shilo Soares MD Primary Care Provider [phone] Encounter Details Date Type Department Care Team (Late st Contact Info) Description 11/19/2023 Specialty Pharmacy [facility] [place] [address] [place] [address] Kaley Decker PHARMACIST Social History Tobacco Use Types Packs/Day Years [...] st Contact Info) Description 08/04/2024 1:00 PM PROGRAM DEVELOPER Appointment Randy Hall [facility] Infusion Center 2nd Fl [address] [place] [address] Aviva Humphries MD [address] [place] [address] Infusion Chair 5, 2nd Floor Hall 08/25/2024 1:00 PM PROGRAM DEVELOPER Office Visit [facility] Gynecologic Oncology Hall [address] [place] [address] Edilia Pettit, CHELY [address] [place] [address] 08/25/2024 1:30 PM PROGRAM DEVELOPER Appointment Randy [facility] Infusion Center 2nd Fl [address] [place] [address] Aviva Humphries MD [address] [facility] [address] [place] [address] Infusion Chair 1, 2nd Floor Hall 09/01/2024 10:45 AM PROGRAM DEVELOPER Appointment [facility] Nuclear Medicine [address] [place] [address] [id number] Edilia Pettit, CHELY [address] [facility] [address] [place] [address] documented as of this encounter Visit Diagnoses Not on filedocumented in this encounter Care Teams Director Home Health Relationship Specialty Start Date End Date Shilo Soares MD [address] [place] [address] PCP - General Internal Medicine 04/24/23 documented as of this encounter
--- OUTSIDE RECORDS SUMMARY | 2024-07-26 23:55 | XMS_ITS | Encounter Summary ---
Author Organization [facility] Address [address] [place] [address] Care Team Providers Care Cellar Packer Name Role Phone Shilo Soares MD Primary Care Provider [phone] Encounter Details Date Type Department Care Team (Late Contact Info) Description 10/27/2023 External Device Data STL ABSTRACTION Provider, Abstract [...] (Late Contact Info) Description 08/04/2024 1:00 PM DERRICK BOAT CAPTAIN Appointment [facility] 2nd Va [address] [place] [address] Aviva Humphries MD [address] [place] [address] Infusion Chair 5, 2nd Floor Hall 08/25/2024 1:00 PM DERRICK BOAT CAPTAIN Office Visit [facility] Gynecologic Oncology Hall [address] [place] [address] Edilia Pettit, CHELY [address] [place] [address] 08/25/2024 1:30 PM DERRICK BOAT CAPTAIN Appointment [facility] 2nd Fl [address] [place] [address] Aviva Humphries MD [address] [place] [address] Infusion Chair 1, 2nd Floor [place] 09/01/2024 10:45 AM DERRICK BOAT CAPTAIN Appointment Randy Hall [facility] Nuclear Medicine [address] [place] [address] [phone] Edilia Pettit, CHELY [address] [facility] [address] [place] [address] documented as of this encounter Visit Diagnoses Not on filedocumented in this encounter Care Teams Cellar Packer Relationship Specialty Start Date End Date Shilo Soares MD [address] [place] [address] PCP - General Internal Medicine 04/24/23 documented as of this encounter
--- OUTSIDE RECORDS SUMMARY | 2024-07-26 23:55 | XMS_ITS | Encounter Summary ---
Author Organization [facility] Address [address] [place] [address] Care Team Providers Care Quiller Tender Name Role Phone Shilo Soares MD Primary Care Provider [phone] Encounter Details Date Type Department Care Team (Late Contact Info) Description 10/26/2023 External Device Data STL ABSTRACTION Provider, Abstract [...] (Late Contact Info) Description 08/04/2024 1:00 PM REGISTERED NURSE NURSERY Appointment [facility] 2nd Nm [address] [place] [address] Aviva Humphries MD [address] [place] [address] Infusion Chair 5, 2nd Floor Hall 08/25/2024 1:00 PM REGISTERED NURSE NURSERY Office Visit [facility] Gynecologic Oncology Hall [address] [place] [address] Edilia Pettit, CHELY [address] [place] [address] 08/25/2024 1:30 PM REGISTERED NURSE NURSERY Appointment [facility] 2nd Fl [address] [place] [address] Aviva Humphries MD [address] [place] [address] Infusion Chair 1, 2nd Floor [place] 09/01/2024 10:45 AM REGISTERED NURSE NURSERY Appointment Randy Hall [facility] Nuclear Medicine [address] [place] [address] [phone] Edilia Pettit, CHELY [address] [facility] [address] [place] [address] documented as of this encounter Visit Diagnoses Not on filedocumented in this encounter Care Teams Quiller Tender Relationship Specialty Start Date End Date Shilo Soares MD [address] [place] [address] PCP - General Internal Medicine 04/24/23 documented as of this encounter
--- OUTSIDE RECORDS SUMMARY | 2024-07-26 23:55 | XMS_ITS | Encounter Summary ---
Author Organization [facility] Address [address] [place] [address] Care Team Providers Care Stone Breaker Name Role Phone Shilo Soares MD Primary Care Provider [phone] Encounter Details Date Type Department Care Team (Late Contact Info) Description 10/22/2023 External Device Data STL ABSTRACTION Provider, Abstract [...] (Late Contact Info) Description 08/04/2024 1:00 PM BEREAVEMENT COUNSELOR Appointment [facility] 2nd N[place] [address] [place] [address] Aviva Humphries MD [address] [place] [address] Infusion Chair 5, 2nd Floor Hall 08/25/2024 1:00 PM BEREAVEMENT COUNSELOR Office Visit [facility] Gynecologic Oncology Hall [address] [place] [address] Edilia Pettit, CHELY [address] [place] [address] 08/25/2024 1:30 PM BEREAVEMENT COUNSELOR Appointment [facility] 2nd Fl [address] [place] [address] Aviva Humphries MD [address] [place] [address] Infusion Chair 1, 2nd Floor [place] 09/01/2024 10:45 AM BEREAVEMENT COUNSELOR Appointment Randy Hall [facility] Nuclear Medicine [address] [place] [address] [id number] Edilia Pettit, CHELY [address] [facility] [address] [place] [address] documented as of this encounter Visit Diagnoses Not on filedocumented in this encounter Care Teams Stone Breaker Relationship Specialty Start Date End Date Shilo Soares MD [address] [place] [address] PCP - General Internal Medicine 04/24/23 documented as of this encounter
--- OUTSIDE RECORDS SUMMARY | 2024-07-26 23:55 | XMS_ITS | Encounter Summary ---
Author Organization [facility] Address [address] [place] [address] Care Team Providers Care Dental Secretary Name Role Phone Shilo Soares MD Primary Care Provider [phone] Encounter Details Date Type Department Care Team [...] (Late Contact Info) Description 08/04/2024 1:00 PM ORCHARD HAND Appointment [facility] 2nd [place] [address] [place] [address] Aviva Humphries MD [address] [place] [address] Infusion Chair 5, 2nd Floor [place] 08/25/2024 1:00 PM ORCHARD HAND Office Visit [facility] Gynecologic Oncology Hall [address] [place] [address] Edilia Pettit, CHELY [address] [place] [address] 08/25/2024 1:30 PM ORCHARD HAND Appointment [facility] 2nd Fl [address] [place] [address] Aviva Humphries MD [address] [place] [address] Infusion Chair 1, 2nd Floor [place] 09/01/2024 10:45 AM ORCHARD HAND Appointment Randy [facility] Nuclear Medicine [address] [place] [address] [id number] Edilia Pettit, CHELY [address] [facility] [address] [place] [address] documented as of this encounter Visit Diagnoses Not on filedocumented in this encounter Care Teams Dental Secretary Relationship Specialty Start Date End Date Shilo Soares MD [address] [place] [address] PCP - General Internal Medicine 04/24/23 documented as of this encounter
--- OUTSIDE RECORDS SUMMARY | 2024-07-26 23:55 | XMS_ITS | Encounter Summary ---
Author Organization [facility] Address [address] [place] [address] Care Team Providers Care Leadite Worker Name Role Phone Shilo Soares MD Primary Care Provider [phone] Encounter Details Date Type Department Care Team (Late Contact Info) Description 11/12/2023 External Device Data STL ABSTRACTION Provider, Abstract [...] Info) Description 08/04/2024 1:00 PM DIRECTOR OF MEDIA Appointment [facility] 2nd Ms [address] [place] [address] Aviva Humphries MD [address] [place] [address] Infusion Chair 5, 2nd Floor [place] 08/25/2024 1:00 PM DIRECTOR OF MEDIA Office Visit [facility] Gynecologic Oncology Hall [address] [place] [address] Edilia Pettit, CHELY [address] [place] [address] 08/25/2024 1:30 PM DIRECTOR OF MEDIA Appointment [facility] 2nd Fl [address] [place] [address] Aviva Humphries MD [address] [place] [address] Infusion Chair 1, 2nd Floor [place] 09/01/2024 10:45 AM DIRECTOR OF MEDIA Appointment Randy [facility] Nuclear Medicine [address] [place] [address] [id number] Edilia Pettit, CHELY [address] [facility] [address] [place] [address] documented as of this encounter Visit Diagnoses Not on filedocumented in this encounter Care Teams Leadite Worker Relationship Specialty Start Date End Date Shilo Soares MD [address] [place] [address] PCP - General Internal Medicine 04/24/23 documented as of this encounter
--- OUTSIDE RECORDS SUMMARY | 2024-07-26 23:55 | XMS_ITS | Encounter Summary ---
Author Organization [facility] Address [address] [place] [address] Care Team Providers Care Commercial Parts Professional Name Role Phone Shilo Soares MD Primary Care Provider [phone] Encounter Details Date Type Department Care Team (Latest Contact Info) Description 11/05/2023 7:30 AM CDT - 11/05/2023 11:59 PM CDT Hospital Encounter [facility] [address] [place] [address] Aviva Humphries MD [address] [place] [address] Discharge Disposition: Home or Self [...] bedtime. 02/26/2021 fluticasone propionate (FLONASE) 50 mcg/spray [place], Suspension nasal inhaler Administer 2 Sprays in each nostril daily. omega-3 fatty acids-fish oil 300-1,000 mg Capsule Take 2 Capsules by mouth daily. lidocaine-prilocaine (EMLA) 2.5-2.5 % Cream APPLY A THIN LAYER OVER PORT SITE 30-45 MINUTES PRIOR TO CHEMOTHERAPY. 30 Gram 10/05/2023 12/14/2023 documented as of this encounter Plan of Treatment Upcoming Encounters Date Type Department Care Team (Late st Contact Info) Description 08/04/2024 1:00 PM HAMMER SETTER Appointment [facility] 2nd Fl [address] [place] [address] Aviva Humphries MD [address] [place] [address] Infusion Chair 5, 2nd Floor [place] 08/25/2024 1:00 PM HAMMER SETTER Office Visit [facility] Gynecologic Oncology Hall [address] [place] [address] Edilia Pettit, CHELY [address] [facility] [address] [place] [address] 08/25/2024 1:30 PM HAMMER SETTER Appointment [facility] Infusion Center 2nd Fl [address] [place] [address] Aviva Humphries MD [address] [facility] [address] [place] [address] Infusion Chair 1, 2nd Floor Hall 09/01/2024 10:45 AM HAMMER SETTER Appointment [facility] Nuclear Medicine [address] [place] [address] [id number] Edilia Pettit, CHELY [address] [facility] [address] [place] [address] documented as of this encounter Procedures Procedure Name Priority Date/Time Associated Diagnosis Comments CANCER ANTIGEN 125 Routine 11/05/2023 9: 18 AM CDT Malignant neoplasm of ovary, unspecified laterality CBC WITH DIFFERENTIAL Stat 11/05/2023 9:18 AM CDT Malignant neoplasm of ovary, unspecified laterality URINALYSIS W/REFLEX MICROSCOPIC Stat 11/05/2023 9:18 AM CDT Malignant neoplasm of ovary, unspecified laterality MAGNESIUM LEVEL Stat 11/05/2023 9:18 AM CDT Malignant neoplasm of ovary, unspecified laterality COMPREHENSIVE METABOLIC PANEL Stat 11/05/2023 9:18 AM CDT Malignant neoplasm of ovary, unspecified laterality documented in this encounter Results * CANCER ANTIGEN 125 (11/05/2023 9:18 AM CDT) CA 125 8 <35 U/mL [facility] Comment: This test was performed using the Siemens Chemiluminescent method. Values obtained from different assay methods cannot be used interchangeably. CA 125 levels, regardless of value, should not be interpreted as absolute evidence of the presence or absence of disease. Test Performed at: [facility] [address] [place], [place] ??[address] Radha Perez MD Blood 11/05/2023 9:18 AM CDT 11/05/2023 9:35 AM CDT Aviva Humphries MD CHEMISTRY ORDERABLES [facility] [phone] [facility] [address] [address] * MAGNESIUM LEVEL (11/05/2023 9:18 AM CDT) [facility] MAGNESIUM 2.2 1.6 - 2.4 mg/dL 11/05/2023 10:17 AM CDT [facility] Blood Collection / Unknown 11/05/2023 9:18 AM CDT 11/05/2023 9:32 AM CDT Aviva Humphries MD CHEMISTRY ORDERABLES [facility] CLIA# [id number] [address] [place] [address] * (ABNORMAL) COMPREHENSIVE METABOLIC PANEL (11/05/2023 9:18 AM CDT) [facility] SODIUM 139 136 - 145 mmol/L 11/05/2023 10:17 AM CDT [facility] POTASSIUM 4.3 3.5 - 5.0 mmol/L 11/05/2023 10:17 AM CDT [facility] CHLORIDE 102 98 - 107 mmol/L 11/05/2023 10:17 AM CDT [facility] CO2 25 22 - 29 mmol/L 11/05/2023 10:17 AM [facility] [employer] [facility] CALCIUM 9.7 8.6 - 10.2 mg/dL 11/05/2023 10:17 AM [facility] [employer] [facility] BUN 9 8 - 23 mg/dL 11/05/2023 10:17 AM [facility] CREATININE 0.76 0.51 - 0.95 mg/dL 11/05/2023 10:17 AM [facility] [employer] [facility] GLUCOSE 120(H) 74 - 99 mg/dL 11/05/2023 10:17 AM [facility] [employer] [facility] TOTAL PROTEIN 7.6 6.7 - 8.6 g/dL 11/05/2023 10:17 AM [facility] [employer] [facility] ALBUMIN 4.3 3.5 - 5.2 g/dL 11/05/2023 10:17 AM [facility] [employer] [facility] BILIRUBIN TOTAL 0.3 0.2 - 1.1 mg/dL 11/05/2023 10:17 AM [facility] [employer] [facility] ALKALINE PHOSPHATASE 102 35 - 104 U/L 11/05/2023 10:17 AM [facility] [employer] [facility] AST 21 <33 U/L 11/05/2023 10:17 AM [facility] [employer] [facility] ALT 29 <34 U/L 11/05/2023 10:17 AM [facility] [employer] [facility] GFR >60 >=60 mL/min/1.7 3 sq meter 11/05/2023 10:17 AM [facility] [employer] [facility] Comment:eGFR calculated with 2020 CKD-EPI equation. Vegetarian diet, extremely high or low muscle mass, and may affect results. Cystatin C with Glomerular Filtration Rate is a suitable alternative for these patients. ANION GAP 12 8 - 16 mmol/L 11/05/2023 10:17 AM [facility] [employer] [facility] Blood Collection / Unknown 11/05/2023 9:18 AM T 11/05/2023 9:32 AM [facility] [employer] [facility] - 11/05/2023 10:17 AM CDT Samples containing indocyanine green cause interferences on Total and/or Direct Bilirubin and must not be measured. Aviva Humphries MD CHEMISTRY ORDERABLES [facility] - [facility] CLIA# [id number] [place] [address] * (ABNORMAL) CBC WITH DIFFERENTIAL (11/05/2023 9:18 AM CDT) Pathologist [facility] WBC 5.8 4.0 - 9.8 K/uL 11/05/2023 9:30 AM CDT [facility] - . [facility] RBC 3.26(L) 3.90 - 4.90 M/uL 11/05/2023 9:30 AM CDT [facility] - . [facility] HEMOGLOBIN 10.8(L) 11.8 - 14.8 g/dL 11/05/2023 9:30 AM CDT [facility] - . [facility] HEMATOCRIT 32.5(L) 35.5 - 44.0 % 11/05/2023 9:30 AM CDT [facility] - . [facility] MCV 99.7(H) 82.0 - 99.0 fL 11/05/2023 9:30 AM CDT [facility] - . [facility] MCH 33.1(H) 27.2 - 32.6 pg 11/05/2023 9:30 AM CDT [facility] - . [facility] MCHC 33.2 31.5 - 35.5 g/dL 11/05/2023 9:30 AM CDT [facility] - . [facility] RDW 16.2(H) 11.5 - 14.5 % 11/05/2023 9:30 AM CDT [facility] - . [facility] RDW-STDEV 58.9(H) 37.1 - 48.7 fL 11/05/2023 9:30 AM CDT [facility] - . [facility] PLATELETS 133(L) 140 - 350 K/uL 11/05/2023 9:30 AM CDT [facility] - . [facility] MPV 8.9(L) 9.3 - 12.4 fL 11/05/2023 9:30 AM CDT [employer] [facility]ATORY SERVICES - . [facility] NEUTROPHILS 63 % 11/05/2023 9:30 AM CDT [employer] [facility] - [facility] LYMPHOCYTES 28 % 11/05/2023 9:30 AM CDT [facility] MONOCYTES 8 % 11/05/2023 9:30 AM CDT [facility] EOSINOPHILS 0 % 11/05/2023 9:30 AM CDT [facility] - . [facility] BASOPHILS 0 % 11/05/2023 9:30 AM CDT [facility] - . [facility] IMMATURE GRANULOCYTES 0 % 11/05/2023 9:30 AM CDT [facility] - . [facility] NEUTROPHIL ABSOLUTE 3.68 1.90 - 7.00 K/uL 11/05/2023 9:30 AM CDT [facility] - . [facility] LYMPHOCYTE ABSOLUTE 1.65 0.70 - 4.50 K/uL 11/05/2023 9:30 AM CDT [facility] - . [facility] MONOCYTE ABSOLUTE 0.44 0.10 - 1.30 K/uL 11/05/2023 9:30 AM CDT [facility] - . [facility] EOSINOPHIL ABSOLUTE 0.01 0.00 - 0.70 K/uL 11/05/2023 9:30 AM CDT [facility] - . [facility] BASOPHILS ABSOLUTE 0.02 0.00 - 0.20 K/uL 11/05/2023 9:30 AM CDT [facility] - . [facility] IMMATURE GRANULOCYTES ABSOLUTE 0.01 0.00 - 0.03 K/uL 11/05/2023 9:30 AM CDT [facility] Blood Collection / Unknown 11/05/2023 9:18 AM CDT 11/05/2023 9:27 AM CDT Aviva Humphries MD HEMATOLOGY ORDERABLE S [facility] [id number] [address] [facility] [address], [place] [address] * (ABNORMAL) URINALYSIS WITH REFLEX MICROSCOPIC (11/05/2023 9:18 AM CDT) COLOR UA Pale Yellow Pale to Dark Yellow 11/05/2023 9:45 AM CDT [employer] [facility] - [facility] CLARITY UA Clear Clear 11/05/2023 9:45 AM CDT [employer] [facility] - [facility] SPECIFIC GRAVITY UA 1.004 1.003 - 1.035 11/05/2023 9:45 AM T [employer] SERVICES - [facility] PH UA 5.0 5.0 - 8.0 11/05/2023 9:45 AM CDT [employer] [facility] SERVICES - [facility] LEUKOCYTE ESTERASE UA Negative Negative 11/05/2023 9:45 AM CDT [employer] [facility] - [facility] NITRITE UA Negative Negative 11/05/2023 9:45 AM CDT [employer] [facility] - [facility] PROTEIN UA Negative Negative 11/05/2023 9:45 AM CDT [employer] [facility] - [facility] GLUCOSE UA Negative Negative 11/05/2023 9:45 AM CDT [employer] SERVICES - [facility] KETONES UA Negative Negative 11/05/2023 9:45 AM T [employer] [facility] - [facility] UROBILINOGEN UA Normal <2.0 mg/dL 9:45 AM CDT [employer] [facility] - [facility] BILIRUBIN UA Negative Negative 11/05/2023 9:45 AM T [employer] [facility] - [facility] BLOOD UA 1+(A) Negative 11/05/2023 9:45 AM CDT [employer] [facility] - [facility] WBC UA 0-2 0 - 2 /hpf 11/05/2023 9:45 AM T [employer] [facility]ATORY SERVICES - . [facility] RBC UA 0-2 0 - 2 /hpf 11/05/2023 9:45 AM T [employer] [facility] - [facility] BACTERIA UA Negative Negative /hpf 11/05/2023 9:45 AM T [employer] [facility] - [facility] Urine URINE SPECIMEN OBTAINED BY CLEAN CATCH PROCEDURE / Unknown Collection / Unknown 11/05/2023 9:18 AM CDT 11/05/2023 9:28 AM CDT Aviva Humphries MD URINE ORDERABLES [facility]# [id number] [address] [place] [address] documented in this encounter Visit Diagnoses Diagnosis Malignant neoplasm of ovary, unspecified laterality- Primary documented in this encounter Administered Medications Inactive Administered Medications - up to 3 most recent administrations Medication Order MAR Action Action Date Dose Rate Site sodium chloride flush injection 20 mL 20 mL, IV, ONE TIME ONLY, 1 dose, On Peace 11/05/23 at 0930, Routine Given 11/05/2023 9:21 AM CDT 20 mL documented in this encounter Care Teams Commercial Parts Professional Relationship Specialty Start Date End Date Shilo Soares MD [address] [place] [address] PCP - General Internal Medicine 04/24/23 documented as of this encounter
--- OUTSIDE RECORDS SUMMARY | 2024-07-26 23:55 | XMS_ITS | Encounter Summary ---
Author Organization [facility] Address [address] [place] [address] Care Team Providers Care Measuring Clerk Name Role Phone Shilo Soares MD Primary Care Provider [phone] Encounter Details Date Type Department Care Team (Late Contact Info) Description 10/25/2023 External Device Data STL ABSTRACTION Provider, Abstract [...] (Late Contact Info) Description 08/04/2024 1:00 PM MAMMOGRAPHY TECHNOLOGIST Appointment [facility] 2nd Dc [address] [place] [address] Aviva Humphries MD [address] [place] [address] Infusion Chair 5, 2nd Floor Hall 08/25/2024 1:00 PM MAMMOGRAPHY TECHNOLOGIST Office Visit [facility] Gynecologic Oncology Hall [address] [place] [address] Edilia Pettit, CHELY [address] [place] [address] 08/25/2024 1:30 PM MAMMOGRAPHY TECHNOLOGIST Appointment [facility] Center 2nd Fl [address] [place] [address] Aviva Humphries MD [address] [place] [address] Infusion Chair 1, 2nd Floor [place] 09/01/2024 10:45 AM MAMMOGRAPHY TECHNOLOGIST Appointment [facility] Nuclear Medicine [address] [place] [address] [id number] Edilia Pettit, CHELY [address] [facility] [address] [place] [address] documented as of this encounter Visit Diagnoses Not on filedocumented in this encounter Care Teams Measuring Clerk Relationship Specialty Start Date End Date Shilo Soares MD [address] [place] [address] PCP - General Internal Medicine 04/24/23 documented as of this encounter
--- OUTSIDE RECORDS SUMMARY | 2024-07-26 23:55 | XMS_ITS | Encounter Summary ---
Author Organization [facility] Address [address] [place] [address] Care Team Providers Care Round Corner Cutter Operator Name Role Phone Shilo Soares MD Primary Care Provider [phone] Encounter Details Date Type Department Care Team [...] (Late Contact Info) Description 08/04/2024 1:00 PM WARP COILER Appointment [facility] 2nd Ak [address] [place] [address] Aviva Humphries MD [address] [place] [address] Infusion Chair 5, 2nd Floor Hall 08/25/2024 1:00 PM WARP COILER Office Visit [facility] Gynecologic Oncology Hall [address] [place] [address] Edilia Pettit, CHELY [address] [place] [address] 08/25/2024 1:30 PM WARP COILER Appointment [facility] 2nd Fl [address] [place] [address] Aviva Humphries MD [address] [place] [address] Infusion Chair 1, 2nd Floor [place] 09/01/2024 10:45 AM WARP COILER Appointment [facility] Nuclear Medicine [address] [place] [address] [id number] Edilia Pettit, CHELY [address] [facility] [address] [place] [address] documented as of this encounter Visit Diagnoses Not on filedocumented in this encounter Care Teams Round Corner Cutter Operator Relationship Specialty Start Date End Date Shilo Soares MD [address] [place] [address] PCP - General Internal Medicine 04/24/23 documented as of this encounter
--- OUTSIDE RECORDS SUMMARY | 2024-07-26 23:55 | XMS_ITS | Encounter Summary ---
Author Organization [facility] Address [address] [place] [address] Care Team Providers Care Service Learning Coordinator Name Role Phone Shilo Soares MD Primary Care Provider [phone] Encounter Details Date Type Department Care Team (Late Contact Info) Description 11/11/2023 External Device Data STL ABSTRACTION Provider, Abstract [...] Contact Info) Description 08/04/2024 1:00 PM WAREHOUSE ASSISTANT Appointment [facility] 2nd Or [address] [place] [address] Aviva Humphries MD [address] [place] [address] Infusion Chair 5, 2nd Floor Hall 08/25/2024 1:00 PM WAREHOUSE ASSISTANT Office Visit [facility] Gynecologic Oncology Hall [address] [place] [address] Edilia Pettit, CHELY [address] [place] [address] 08/25/2024 1:30 PM WAREHOUSE ASSISTANT Appointment [facility] 2nd Fl [address] [place] [address] Aviva Humphries MD [address] [place] [address] Infusion Chair 1, 2nd Floor [place] 09/01/2024 10:45 AM WAREHOUSE ASSISTANT Appointment [facility] Nuclear Medicine [address] [place] [address] [id number] Edilia Pettit, CHELY [address] [facility] [address] [place] [address] documented as of this encounter Visit Diagnoses Not on filedocumented in this encounter Care Teams Service Learning Coordinator Relationship Specialty Start Date End Date Shilo Soares MD [address] [place] [address] PCP - General Internal Medicine 04/24/23 documented as of this encounter
--- OUTSIDE RECORDS SUMMARY | 2024-07-26 23:55 | XMS_ITS | Encounter Summary ---
Author Organization [facility] Address [address] [place] [address] Care Team Providers Care Clinical Safety Specialist Name Role Phone Shilo Soares MD Primary Care Provider [phone] Encounter Details Date Type Department Care Team [...] (Late Contact Info) Description 08/04/2024 1:00 PM REPAIRER SCREEN CRUSHER Appointment [facility] 2nd Ms [address] [place] [address] Aviva Humphries MD [address] [place] [address] Infusion Chair 5, 2nd Floor Hall 08/25/2024 1:00 PM REPAIRER SCREEN CRUSHER Office Visit [facility] Gynecologic Oncology Hall [address] [place] [address] Edilia Pettit, CHELY [address] [place] [address] 08/25/2024 1:30 PM REPAIRER SCREEN CRUSHER Appointment [facility] 2nd Fl [address] [place] [address] Aviva Humphries MD [address] [place] [address] Infusion Chair 1, 2nd Floor [place] 09/01/2024 10:45 AM REPAIRER SCREEN CRUSHER Appointment [facility] Nuclear Medicine [address] [place] [address] [id number] Edilia Pettit, CHELY [address] [facility] [address] [place] [address] documented as of this encounter Visit Diagnoses Not on filedocumented in this encounter Care Teams Clinical Safety Specialist Relationship Specialty Start Date End Date Shilo Soares MD [address] [place] [address] PCP - General Internal Medicine 04/24/23 documented as of this encounter
--- OUTSIDE RECORDS SUMMARY | 2024-07-26 23:55 | XMS_ITS | Encounter Summary ---
Author Organization [facility] Address [address] [place] [address] Care Team Providers Care Cbx Operator Name Role Phone Shilo Soares MD Primary Care Provider [phone] Encounter Details Date Type Department Care Team (Late Contact Info) Description 11/05/2023 External Device Data STL ABSTRACTION Provider, Abstract [...] (Late Contact Info) Description 08/04/2024 1:00 PM TOBACCO BUYER Appointment [facility] 2nd [place] [address] [place] [address] Aviva Humphries MD [address] [place] [address] Infusion Chair 5, 2nd Floor Hall 08/25/2024 1:00 PM TOBACCO BUYER Office Visit [facility] Gynecologic Oncology Hall [address] [place] [address] Edilia Pettit, CHELY [address] [place] [address] 08/25/2024 1:30 PM TOBACCO BUYER Appointment [facility] 2nd Fl [address] [place] [address] Aviva Humphries MD [address] [place] [address] Infusion Chair 1, 2nd Floor [place] 09/01/2024 10:45 AM TOBACCO BUYER Appointment [facility] Nuclear Medicine [address] [place] [address] [id number] Edilia Pettit, CHELY [address] [facility] [address] [place] [address] documented as of this encounter Visit Diagnoses Not on filedocumented in this encounter Care Teams Cbx Operator Relationship Specialty Start Date End Date Shilo Soares MD [address] [place] [address] PCP - General Internal Medicine 04/24/23 documented as of this encounter
--- OUTSIDE RECORDS SUMMARY | 2024-07-26 23:55 | XMS_ITS | Encounter Summary ---
Author Organization [facility] Address [address] [place] [address] Care Team Providers Care Ribbon Lapper Tender Name Role Phone Shilo Soares MD Primary Care Provider [phone] Encounter Details Date Type Department Care Team (Late Contact Info) Description 11/24/2023 External Device Data STL ABSTRACTION Provider, Abstract [...] (Late Contact Info) Description 08/04/2024 1:00 PM TECHNICAL IMPLEMENTATION LEAD Appointment [facility] 2nd Md [address] [place] [address] Aviva Humphries MD [address] [place] [address] Infusion Chair 5, 2nd Floor [place] 08/25/2024 1:00 PM TECHNICAL IMPLEMENTATION LEAD Office Visit [facility] Gynecologic Oncology Hall [address] [place] [address] Edilia Pettit, CHELY [address] [place] [address] 08/25/2024 1:30 PM TECHNICAL IMPLEMENTATION LEAD Appointment [facility] 2nd Fl [address] [place] [address] Aviva Humphries MD [address] [place] [address] Infusion Chair 1, 2nd Floor [place] 09/01/2024 10:45 AM TECHNICAL IMPLEMENTATION LEAD Appointment [facility] Nuclear Medicine [address] [place] [address] [id number] Edilia Pettit, CHELY [address] [facility] [address] [place] [address] documented as of this encounter Visit Diagnoses Not on filedocumented in this encounter Care Teams Ribbon Lapper Tender Relationship Specialty Start Date End Date Shilo Soares MD [address] [place] [address] PCP - General Internal Medicine 04/24/23 documented as of this encounter
--- OUTSIDE RECORDS SUMMARY | 2024-07-26 23:55 | XMS_ITS | Encounter Summary ---
Author Organization [facility] Address [address] [place] [address] Care Team Providers Care Management Tech Name Role Phone Shilo Soares MD Primary Care Provider [phone] Encounter Details Date Type Department Care Team (Late Contact Info) Description 11/05/2023 Orders Only [facility] Gynecologic Oncology Hall [address] [facility] [address] [place] [address] Edilia Pettit, CHELY [address] [facility] [address] [place] [address] Social History Tobacco Use Types [...] Contact Info) Description 08/04/2024 1:00 PM MANAGER CALL CENTER Appointment Randy [facility] Center 2nd Fl [address] [place] [address] Aviva Humphries MD [address] [place] [address] Infusion Chair 5, 2nd Floor [place] 08/25/2024 1:00 PM MANAGER CALL CENTER Office Visit [facility] Gynecologic Oncology Hall [address] [facility] [facility] [place] [address] Edilia Pettit, CHELY [address] [facility] [place] [address] 08/25/2024 1:30 PM MANAGER CALL CENTER Appointment [facility] [address] [place] [address] Aviva Humphries MD [address] [facility] [address] [place] [address] Infusion Chair 1, 2nd Floor [place] 09/01/2024 10:45 AM MANAGER CALL CENTER Appointment Randy [place] [facility] Nuclear Medicine [address] [place] [address] [id number] Edilia Pettit NP [address] [facility] [address] [place] [address] documented as of this encounter Visit Diagnoses Not on filedocumented in this encounter Care Teams Management Tech Relationship Specialty Start Date End Date Shilo Soares MD [address] [place] [address] PCP - General Internal Medicine 04/24/23 documented as of this encounter
--- OUTSIDE RECORDS SUMMARY | 2024-07-26 23:55 | XMS_ITS | Encounter Summary ---
Author Organization [facility] Address [address] [place] [address] Care Team Providers Care Floral Merchandiser Name Role Phone Shilo Soares MD Primary Care Provider [phone] Encounter Details Date Type Department Care Team [...] Info) Description 08/04/2024 1:00 PM DIRECTOR OF PSYCHIATRY Appointment [facility] 2nd Id [address] [place] [address] Aviva Humphries MD [address] [place] [address] Infusion Chair 5, 2nd Floor Hall 08/25/2024 1:00 PM DIRECTOR OF PSYCHIATRY Office Visit [facility] Gynecologic Oncology Hall [address] [place] [address] Edilia Pettit, CHELY [address] [facility] [address] [place] [address] 08/25/2024 1:30 PM DIRECTOR OF PSYCHIATRY Appointment [facility] Center 2nd Fl [address] [place] [address] Aviva Humphries MD [address] [facility] [address] [place] [address] Infusion Chair 1, 2nd Floor [place] 09/01/2024 10:45 AM DIRECTOR OF PSYCHIATRY Appointment Randy [facility] Nuclear Medicine [address] [place] [address] [id number] Edilia Pettit, CHELY [address] [facility] [address] [place] [address] documented as of this encounter Visit Diagnoses Not on filedocumented in this encounter Care Teams Floral Merchandiser Relationship Specialty Start Date End Date Shilo Soares MD [address] [place] [address] PCP - General Internal Medicine 04/24/23 documented as of this encounter
--- OUTSIDE RECORDS SUMMARY | 2024-07-26 23:55 | XMS_ITS | Encounter Summary ---
Author Organization [facility] Address [address] [place] [address] Care Team Providers Care Customer Solutions Architect Name Role Phone Shilo Soares MD Primary Care Provider [phone] Encounter Details Date Type Department Care Team (Late Contact Info) Description 11/07/2023 External Device Data STL ABSTRACTION Provider, Abstract [...] Contact Info) Description 08/04/2024 1:00 PM ENGINEERING ANALYST Appointment [facility] 2nd Wa [address] [place] [address] Aviva Humphries MD [address] [place] [address] Infusion Chair 5, 2nd Floor Hall 08/25/2024 1:00 PM ENGINEERING ANALYST Office Visit [facility] Gynecologic Oncology Hall [address] [place] [address] Edilia Pettit, CHELY [address] [place] [address] 08/25/2024 1:30 PM ENGINEERING ANALYST Appointment [facility] 2nd Fl [address] [place] [address] Aviva Humphries MD [address] [facility] [facility] [address] [place] [address] Infusion Chair 1, 2nd Floor [place] 09/01/2024 10:45 AM ENGINEERING ANALYST Appointment Randy Hall [facility] Nuclear Medicine [address] [place] [address] [id number] Edilia Pettit, CHELY [address] [facility] [address] [place] [address] documented as of this encounter Visit Diagnoses Not on filedocumented in this encounter Care Teams Customer Solutions Architect Relationship Specialty Start Date End Date Shilo Soares MD [address] [place] [address] PCP - General Internal Medicine 04/24/23 documented as of this encounter
--- OUTSIDE RECORDS SUMMARY | 2024-07-26 23:55 | XMS_ITS | Encounter Summary ---
Author Organization [facility] Address [address] [place] [address] Care Team Providers Care Chick Sexer Name Role Phone Shilo Soares MD Primary Care Provider [phone] Encounter Details Date Type Department Care Team (Late Contact Info) Description 11/15/2023 External Device Data STL ABSTRACTION Provider, Abstract [...] (Late Contact Info) Description 08/04/2024 1:00 PM HUSKER OPERATOR Appointment [facility] 2nd Ca [address] [place] [address] Aviva Humphries MD [address] [address] Infusion Chair 5, 2nd Floor Hall 08/25/2024 1:00 PM HUSKER OPERATOR Office Visit [facility] Gynecologic Oncology Hall [address] [place] [address] Edilia Pettit, CHELY [address] [facility] [phone] 08/25/2024 1:30 PM HUSKER OPERATOR Appointment [facility] 2nd Fl [address] [place] [address] Aviva Humphries MD [address] [facility] [address] [facility] [address] [address] Infusion Chair 1, 2nd Floor [place] 09/01/2024 10:45 AM HUSKER OPERATOR Appointment Randy [facility] Nuclear Medicine [address] [place] [address] [id number] Edilia Pettit, CHELY [address] [facility] [address] [address] documented as of this encounter Visit Diagnoses Not on filedocumented in this encounter Care Teams Chick Sexer Relationship Specialty Start Date End Date Shilo Soares MD [address] [place] [address] PCP - General Internal Medicine 04/24/23 documented as of this encounter
--- OUTSIDE RECORDS SUMMARY | 2024-07-26 23:55 | XMS_ITS | Encounter Summary ---
Author Organization [facility] Address [address] [place] [address] Care Team Providers Care Certified Public Accountant Name Role Phone Shilo Soares MD Primary Care Provider [phone] Encounter Details Date Type Department Care Team [...] (Late Contact Info) Description 08/04/2024 1:00 PM ESTHETICIAN FACIALIST Appointment [facility] [address] [place] [address] Aviva Humphries MD [address] [place] [address] Infusion Chair 5, 2nd Floor [place] 08/25/2024 1:00 PM ESTHETICIAN FACIALIST Office Visit [facility] Gynecologic Oncology Hall [address] [place] [address] Edilia Pettit, CHELY [address] [facility] [address] [place] [address] 08/25/2024 1:30 PM ESTHETICIAN FACIALIST Appointment [facility] 2nd Fl [address] [place] [address] Aviva Humphries MD [address] [facility] [facility] [address] [place] [address] Infusion Chair 1, 2nd Floor [place] 09/01/2024 10:45 AM ESTHETICIAN FACIALIST Appointment Randy Hall [facility] Nuclear Medicine [address] [place] [address] [id number] Edilia Pettit, CHELY [address] [facility] [address] [place] [address] documented as of this encounter Visit Diagnoses Not on filedocumented in this encounter Care Teams Certified Public Accountant Relationship Specialty Start Date End Date Shilo Soares MD [address] [place] [address] PCP - General Internal Medicine 04/24/23 documented as of this encounter
--- OUTSIDE RECORDS SUMMARY | 2024-07-26 23:56 | XMS_ITS | Encounter Summary ---
Author Organization [facility] Address [address] [place] [address] Care Team Providers Care Cartridge Assembling Machine Adjuster Name Role Phone Shilo Soares MD Primary Care Provider [phone] Encounter Details Date Type Department Care Team (Late Contact Info) Description 10/07/2023 External Device Data STL ABSTRACTION Provider, Abstract [...] (Late Contact Info) Description 08/04/2024 1:00 PM FOUNDER AND PRESIDENT Appointment [facility] 2nd [place] [address] [place] [address] Aviva Humphries MD [address] [place] [address] Infusion Chair 5, 2nd Floor [place] 08/25/2024 1:00 PM FOUNDER AND PRESIDENT Office Visit [facility] Gynecologic Oncology Hall [address] [place] [address] Edilia Pettit, CHELY [address] [facility] [address] [place] [address] 08/25/2024 1:30 PM FOUNDER AND PRESIDENT Appointment [facility] 2nd Fl [address] [place] [address] Aviva Humphries MD [address] [place] [address] Infusion Chair 1, 2nd Floor [place] 09/01/2024 10:45 AM FOUNDER AND PRESIDENT Appointment Randy [facility] Nuclear Medicine [address] [place] [address] [id number] Edilia Pettit, CHELY [address] [facility] [address] [place] [address] documented as of this encounter Visit Diagnoses Not on filedocumented in this encounter Care Teams Cartridge Assembling Machine Adjuster Relationship Specialty Start Date End Date Shilo Soares MD [address] [place] [address] PCP - General Internal Medicine 04/24/23 documented as of this encounter
--- OUTSIDE RECORDS SUMMARY | 2024-07-26 23:56 | XMS_ITS | Encounter Summary ---
Author Organization [facility] Address [address] [place] [address] Care Team Providers Care Solar Sales Ambassador Name Role Phone Shilo Soares MD Primary Care Provider [phone] Encounter Details Date Type Department Care Team [...] (Late Contact Info) Description 08/04/2024 1:00 PM ANESTHETIC ASSISTANT Appointment [facility] 2nd [place] [address] [place] [address] Aviva Humphries MD [address] [place] [address] Infusion Chair 5, 2nd Floor Hall 08/25/2024 1:00 PM ANESTHETIC ASSISTANT Office Visit [facility] Gynecologic Oncology Hall [address] [place] [address] Edilia Pettit, CHELY [address] [facility] [address] [place] [address] 08/25/2024 1:30 PM ANESTHETIC ASSISTANT Appointment [facility] 2nd Fl [address] [place] [address] Aviva Humphries MD [address] [place] [address] Infusion Chair 1, 2nd Floor [place] 09/01/2024 10:45 AM ANESTHETIC ASSISTANT Appointment Randy Hall [facility] Nuclear Medicine [address] [place] [address] [id number] Edilia Pettit, CHELY [address] [facility] [address] [place] [address] documented as of this encounter Visit Diagnoses Not on filedocumented in this encounter Care Teams Solar Sales Ambassador Relationship Specialty Start Date End Date Shilo Soares MD [address] [place] [address] PCP - General Internal Medicine 04/24/23 documented as of this encounter
--- OUTSIDE RECORDS SUMMARY | 2024-07-26 23:56 | XMS_ITS | Encounter Summary ---
Author Organization [facility] Address [address] [place] [address] Care Team Providers Care Sleeve Sewer Name Role Phone Shilo Soares MD Primary Care Provider [phone] Encounter Details Date Type Department Care Team (Late Contact Info) Description 10/04/2023 External Device Data STL ABSTRACTION Provider, Abstract [...] (Late Contact Info) Description 08/04/2024 1:00 PM FIRST ASSIST Appointment [facility] 2nd [place] [address] [place] [address] Aviva Humphries MD [address] [place] [address] Infusion Chair 5, 2nd Floor [place] 08/25/2024 1:00 PM FIRST ASSIST Office Visit [facility] Gynecologic Oncology Hall [address] [place] [address] Edilia Pettit, CHELY [address] [facility] [address] [place] [address] 08/25/2024 1:30 PM FIRST ASSIST Appointment [facility] 2nd Fl [address] [place] [address] Aviva Humphries MD [address] [facility] [address] [place] [address] Infusion Chair 1, 2nd Floor [facility] 09/01/2024 10:45 AM FIRST ASSIST Appointment Randy Hall [facility] Nuclear Medicine [address] [place] [address] [id number] Edilia Pettit, CHELY [address] [facility] [address] [place] [address] documented as of this encounter Visit Diagnoses Not on filedocumented in this encounter Care Teams Sleeve Sewer Relationship Specialty Start Date End Date Shilo Soares MD [address] [place] [address] PCP - General Internal Medicine 04/24/23 documented as of this encounter
--- OUTSIDE RECORDS SUMMARY | 2024-07-26 23:56 | XMS_ITS | Encounter Summary ---
Author Organization [facility] Address [address] [place] [address] Care Team Providers Care Barytes Grinder Name Role Phone Shilo Soares MD Primary Care Provider [phone] Encounter Details Date Type Department Care Team (Late Contact Info) Description 10/06/2023 External Device Data STL ABSTRACTION Provider, Abstract [...] Contact Info) Description 08/04/2024 1:00 PM PROGRAM COUNSELOR Appointment [facility] 2nd [place] [address] [place] [address] Aviva Humphries MD [address] [place] [address] Infusion Chair 5, 2nd Floor [place] 08/25/2024 1:00 PM PROGRAM COUNSELOR Office Visit [facility] Gynecologic Oncology Hall [address] [place] [address] Edilia Pettit, CHELY [address] [facility] [address] [place] [address] 08/25/2024 1:30 PM PROGRAM COUNSELOR Appointment [facility] 2nd Fl [address] [place] [address] Aviva Humphries MD [address] [facility] [address] [facility] [address] [place] [address] Infusion Chair 1, 2nd Floor [place] 09/01/2024 10:45 AM PROGRAM COUNSELOR Appointment Randy Hall [facility] Nuclear Medicine [address] [place] [address] [id number] Edilia Pettit, CHELY [address] [facility] [address] [place] [address] documented as of this encounter Visit Diagnoses Not on filedocumented in this encounter Care Teams Barytes Grinder Relationship Specialty Start Date End Date Shilo Soares MD [address] [place] [address] PCP - General Internal Medicine 04/24/23 documented as of this encounter
--- OUTSIDE RECORDS SUMMARY | 2024-07-26 23:56 | XMS_ITS | Encounter Summary ---
Author Organization [facility] Address [address] [place] [address] Care Team Providers Care Heavy Rail Train Operator Name Role Phone Shilo Soares MD Primary Care Provider [phone] Encounter Details Date Type Department Care Team (Late Contact Info) Description 09/25/2023 External Device Data STL ABSTRACTION Provider, Abstract [...] (Late Contact Info) Description 08/04/2024 1:00 PM SATELLITE DISH TECHNICIAN Appointment [facility] 2nd [place] [address] [place] [address] Aviva Humphries MD [address] [place] [address] Infusion Chair 5, 2nd Floor Hall 08/25/2024 1:00 PM SATELLITE DISH TECHNICIAN Office Visit [facility] Gynecologic Oncology Hall [address] [place] [address] Edilia Pettit, CHELY [address] [facility] [address] [place] [address] 08/25/2024 1:30 PM SATELLITE DISH TECHNICIAN Appointment [facility] 2nd Fl [address] [place] [address] Aviva Humphries MD [address] [place] [address] Infusion Chair 1, 2nd Floor [place] 09/01/2024 10:45 AM SATELLITE DISH TECHNICIAN Appointment Randy Hall [facility] Nuclear Medicine [address] [place] [address] [id number] Edilia Pettit, CHELY [address] [facility] [address] [place] [address] documented as of this encounter Visit Diagnoses Not on filedocumented in this encounter Care Teams Heavy Rail Train Operator Relationship Specialty Start Date End Date Shilo Soares MD [address] [place] [address] PCP - General Internal Medicine 04/24/23 documented as of this encounter
--- OUTSIDE RECORDS SUMMARY | 2024-07-26 23:56 | XMS_ITS | Encounter Summary ---
Author Organization [facility] Address [address] [place] [address] Care Team Providers Care Hand Profiler Name Role Phone Shilo Soares MD Primary Care Provider [phone] Encounter Details Date Type Department Care Team (Late Contact Info) Description 10/14/2023 Orders Only [facility] Gynecologic Oncology Hall [address] [place] [address] Aviva Humphries MD [address] [place] [address] Social History Tobacco Use Types [...] (Late Contact Info) Description 08/04/2024 1:00 PM UPHOLSTERY INSTRUCTOR Appointment Randy [facility] 2nd Fl [address] [place] [address] Aviva Humphries MD [address] [place] [address] Infusion Chair 5, 2nd Floor [place] 08/25/2024 1:00 PM UPHOLSTERY INSTRUCTOR Office Visit [facility] Gynecologic Oncology Hall [address] [place] [address] Edilia Pettit, CHELY [address] [place] [address] 08/25/2024 1:30 PM UPHOLSTERY INSTRUCTOR Appointment Randy [facility] [address] [place] [address] Aviva Humphries MD [address] [place] [address] Infusion Chair 1, 2nd Floor [place] 09/01/2024 10:45 AM UPHOLSTERY INSTRUCTOR Appointment Randy [facility] Nuclear Medicine [address] [place] [address] [id number] Edilia Pettit NP [address] [facility] [address] [place] [address] documented as of this encounter Visit Diagnoses Not on filedocumented in this encounter Care Teams Hand Profiler Relationship Specialty Start Date End Date Shilo Soares MD [address] [place] [address] PCP - General Internal Medicine 04/24/23 documented as of this encounter
--- OUTSIDE RECORDS SUMMARY | 2024-07-26 23:56 | XMS_ITS | Encounter Summary ---
Author Organization [facility] Address [address] [place] [address] Care Team Providers Care Grocery Department Manager Name Role Phone Shilo Soares MD Primary Care Provider [phone] Encounter Details Date Type Department Care Team (Late Contact Info) Description 10/05/2023 External Device Data STL ABSTRACTION Provider, Abstract [...] Contact Info) Description 08/04/2024 1:00 PM CLAIMS CORRESPONDENCE CLERK Appointment [facility] 2nd [place] [address] [place] [address] Aviva Humphries MD [address] [place] [address] Infusion Chair 5, 2nd Floor [place] 08/25/2024 1:00 PM CLAIMS CORRESPONDENCE CLERK Office Visit [facility] Gynecologic Oncology Hall [address] [place] [address] Edilia Pettit, CHELY [address] [facility] [address] [place] [address] 08/25/2024 1:30 PM CLAIMS CORRESPONDENCE CLERK Appointment [facility] 2nd Fl [address] [place] [address] Aviva Humphries MD [address] [facility] [address] [place] [address] Infusion Chair 1, 2nd Floor [place] 09/01/2024 10:45 AM CLAIMS CORRESPONDENCE CLERK Appointment Randy Hall [facility] Nuclear Medicine [address] [place] [address] [id number] Edilia Pettit, CHELY [address] [facility] [address] [place] [address] documented as of this encounter Visit Diagnoses Not on filedocumented in this encounter Care Teams Grocery Department Manager Relationship Specialty Start Date End Date Shilo Soares MD [address] [place] [address] PCP - General Internal Medicine 04/24/23 documented as of this encounter
--- OUTSIDE RECORDS SUMMARY | 2024-07-26 23:56 | XMS_ITS | Encounter Summary ---
Author Organization [facility] Address [address] [place] [address] Care Team Providers Care Ssis Ssrs Developer Name Role Phone Shilo Soares MD Primary Care Provider [phone] Encounter Details Date Type Department Care Team (Latest Contact Info) Description 10/15/2023 7:39 AM ENGRAVING PATTERNMAKER - 10/15/2023 11:59 PM [facility] Hospital Encounter Randy [facility] Center [facility] [address] [place] [address] Aviva Humphries MD [address] [place] [address] Discharge Disposition: Home or Self [...] bedtime. 02/26/2021 fluticasone propionate (FLONASE) 50 mcg/spray [place], Suspension nasal inhaler Administer 2 Sprays in [...] st Contact Info) Description 08/04/2024 1:00 PM ENGRAVING PATTERNMAKER Appointment [facility] 2nd Fl [address] [place] [address] Aviva Humphries MD [address] [place] [address] Infusion Chair 5, 2nd Floor Hall 08/25/2024 1:00 PM ENGRAVING PATTERNMAKER Office Visit [facility] Gynecologic Oncology Hall [address] [place] [address] Edilia Pettit, CHELY [address] [facility] [address] [place] [address] 08/25/2024 1:30 PM ENGRAVING PATTERNMAKER Appointment Randy Proctor [facility] Infusion Center 2nd Fl [address] [place] [address] Aviva Humphries MD [address] [facility] [address] [place] [address] Infusion Chair 1, 2nd Floor Hall 09/01/2024 10:45 AM ENGRAVING PATTERNMAKER Appointment Randy Proctor [facility] Nuclear Medicine [address] [place] [address] [id number] Edilia Pettit, CHELY [address] [facility] [address] [place] [address] documented as of this encounter Procedures Procedure Name Priority Date/Time Associated Diagnosis Comments CANCER ANTIGEN 125 Routine 10/15/2023 7: 43 AM ENGRAVING PATTERNMAKER Malignant neoplasm of ovary, unspecified laterality CBC WITH DIFFERENTIAL Stat 10/15/2023 7:43 AM ENGRAVING PATTERNMAKER Malignant neoplasm of ovary, unspecified laterality URINALYSIS W/REFLEX MICROSCOPIC Stat 10/15/2023 7:43 AM ENGRAVING PATTERNMAKER Malignant neoplasm of ovary, unspecified laterality MAGNESIUM LEVEL Stat 10/15/2023 7:43 AM ENGRAVING PATTERNMAKER Malignant neoplasm of ovary, unspecified laterality COMPREHENSIVE METABOLIC PANEL Stat 10/15/2023 7:43 AM ENGRAVING PATTERNMAKER Malignant neoplasm of ovary, unspecified laterality documented in this encounter Results * CANCER ANTIGEN 125 (10/15/2023 7:43 AM ENGRAVING PATTERNMAKER) CA 125 6 <35 U/mL [facility] Comment: This test was performed using the Siemens Chemiluminescent method. Values obtained from different assay methods cannot be used interchangeably. CA 125 levels, regardless of value, should not be interpreted as absolute evidence of the presence or absence of disease. Test Performed at: [facility] [id number] [place], [place] ??[address] Radha Perez MD Blood 10/15/2023 7:43 AM ENGRAVING PATTERNMAKER 10/15/2023 8:10 AM ENGRAVING PATTERNMAKER Aviva Humphries MD CHEMISTRY ORDERABLES [facility] [phone] [address] * (ABNORMAL) URINALYSIS WITH REFLEX MICROSCOPIC (10/15/2023 7:43 AM ENGRAVING PATTERNMAKER) COLOR UA Yellow Pale to Dark Yellow 10/15/2023 8:18 AM ENGRAVING PATTERNMAKER [facility] CLARITY UA Clear Clear 10/15/2023 8:18 AM [facility] SPECIFIC GRAVITY UA 1.010 1.003 - 1.035 10/15/2023 8:18 AM [facility] PH UA 5.0 5.0 - 8.0 10/15/2023 8:18 AM ENGRAVING PATTERNMAKER [facility] LEUKOCYTE ESTERASE UA Negative Negative 10/15/2023 8:18 AM ENGRAVING PATTERNMAKER [facility] NITRITE UA Negative Negative 10/15/2023 8:18 AM ENGRAVING PATTERNMAKER [facility] PROTEIN UA Negative Negative 10/15/2023 8:18 AM ENGRAVING PATTERNMAKER [facility] GLUCOSE UA Negative Negative 10/15/2023 8:18 AM ENGRAVING PATTERNMAKER [facility] KETONES UA Negative Negative 10/15/2023 8:18 AM ENGRAVING PATTERNMAKER [facility] UROBILINOGEN UA Normal <2.0 mg/dL 8:18 AM ENGRAVING PATTERNMAKER [facility] BILIRUBIN UA Negative Negative 10/15/2023 8:18 AM [facility] BLOOD UA 1+(A) Negative 10/15/2023 8:18 AM ENGRAVING PATTERNMAKER [facility] WBC UA 0-2 0 - 2 /hpf 10/15/2023 8:18 AM [facility] RBC UA 3-5(A) 0 - 2 /hpf 10/15/2023 8:18 AM [facility] BACTERIA UA 1+(A) Negative /hpf 10/15/2023 8:18 AM [facility] EPITHELIAL CELLS, URINE 0-5 0 - 5 /hpf 10/15/2023 8:18 AM [facility] HYALINE CAST 0-2 None Seen, 0-2 /lpf 10/15/2023 8:18 AM [facility] Urine URINE SPECIMEN OBTAINED BY CLEAN CATCH PROCEDURE / Unknown Collection / Unknown 10/15/2023 7:43 AM ENGRAVING PATTERNMAKER 10/15/2023 7:58 AM ENGRAVING PATTERNMAKER Aviva Humphries MD URINE ORDERABLES [facility] CLIA# [id number] [address] [place] [address] * MAGNESIUM LEVEL (10/15/2023 7:43 AM ENGRAVING PATTERNMAKER) MAGNESIUM 2.3 1.6 - 2.4 mg/dL 10/15/2023 8:50 AM ENGRAVING PATTERNMAKER [facility] Blood Capillary / Unknown 10/15/2023 7:43 AM ENGRAVING PATTERNMAKER 10/15/2023 7:58 AM ENGRAVING PATTERNMAKER Aviva Humphries MD CHEMISTRY ORDERABLES [facility] CLIA# [id number] [address] [place] [address] * (ABNORMAL) COMPREHENSIVE METABOLIC PANEL (10/15/2023 7:43 AM ENGRAVING PATTERNMAKER) SODIUM 137 136 - 145 mmol/L 10/15/2023 8:50 AM [facility] POTASSIUM 4.2 3.5 - 5.0 mmol/L 10/15/2023 8:50 AM [facility] CHLORIDE 101 98 - 107 mmol/L 10/15/2023 8:50 AM [facility] [facility] CO2 25 22 - 29 mmol/L 10/15/2023 8:50 AM [facility] CALCIUM 9.6 8.6 - 10.2 mg/dL 10/15/2023 8:50 AM [facility] [facility] BUN 10 8 - 23 mg/dL 10/15/2023 8:50 AM [facility] [facility] CREATININE 0.77 0.51 - 0.95 mg/dL 10/15/2023 8:50 AM [facility] [facility] - . [facility] GLUCOSE 101(H) 74 - 99 mg/dL 10/15/2023 8:50 AM [facility] [facility] . [facility] TOTAL PROTEIN 7.5 6.7 - 8.6 g/dL 10/15/2023 8:50 AM [facility] [facility] ALBUMIN 4.3 3.5 - 5.2 g/dL 10/15/2023 8:50 AM [facility] [facility] BILIRUBIN TOTAL 0.2 0.2 - 1.1 mg/dL 10/15/2023 8:50 AM [employer] [facility] - . [facility] ALKALINE PHOSPHATASE 112(H) 35 - 104 U/L 10/15/2023 8:50 AM [employer] [facility] AST 38(H) <33 U/L 10/15/2023 8:50 AM [facility] [facility] . [facility] ALT 61(H) <34 U/L 10/15/2023 8:50 AM [employer] [facility] - . [facility] GFR >60 >=60 mL/min/1.7 3 sq meter 10/15/2023 8:50 AM [employer] [facility] - . [facility] Comment:eGFR calculated with 2020 CKD-EPI equation. Vegetarian diet, extremely high or low muscle mass, and may affect results. Cystatin C with Glomerular Filtration Rate is a suitable alternative for these patients. ANION GAP 11 8 - 16 mmol/L 10/15/2023 8:50 AM [facility] Blood Capillary / Unknown 10/15/2023 7:43 AM ENGRAVING PATTERNMAKER 10/15/2023 7:58 AM ENGRAVING PATTERNMAKER [facility] - 10/15/2023 8:50 AM ENGRAVING PATTERNMAKER Samples containing indocyanine green cause interferences on Total and/or Direct Bilirubin and must not be measured. Aviva Humphries MD CHEMISTRY ORDERABLES [facility] [employer] [facility] CLIA# [id number] [address] [facility] [place] [address] * (ABNORMAL) CBC WITH DIFFERENTIAL (10/15/2023 7:43 AM ENGRAVING PATTERNMAKER) WBC 4.6 4.0 - 9.8 K/uL 10/15/2023 7:56 AM [facility] [facility] RBC 3.38(L) 3.90 - 4.90 M/uL 10/15/2023 7:56 AM [facility] [facility] HEMOGLOBIN 11.2(L) 11.8 - 14.8 g/dL 10/15/2023 7:56 AM [facility] [facility] HEMATOCRIT 34.2(L) 35.5 - 44.0 % 10/15/2023 7:56 AM [facility] MCV 101.2(H) 82.0 - 99.0 fL 10/15/2023 7:56 AM [facility] [facility] MCH 33.1(H) 27.2 - 32.6 pg 10/15/2023 7:56 AM [facility] [employer] [facility] MCHC 32.7 31.5 - 35.5 g/dL 10/15/2023 7:56 AM [facility] RDW 15.0(H) 11.5 - 14.5 % 10/15/2023 7:56 AM [facility] [employer] [facility] RDW-STDEV 54.4(H) 37.1 - 48.7 fL 10/15/2023 7:56 AM ENGRAVING PATTERNMAKER [facility] PLATELETS 161 140 - 350 K/uL 10/15/2023 7:56 AM ENGRAVING PATTERNMAKER [facility] MPV 9.6 9.3 - 12.4 fL 10/15/2023 7:56 AM [facility] NEUTROPHILS 55 % 10/15/2023 7:56 AM ENGRAVING PATTERNMAKER [facility] LYMPHOCYTES 37 % 10/15/2023 7:56 AM ENGRAVING PATTERNMAKER [facility] MONOCYTES 7 % 10/15/2023 7:56 AM ENGRAVING PATTERNMAKER [facility] EOSINOPHILS 0 % 10/15/2023 7:56 AM ENGRAVING PATTERNMAKER [facility] BASOPHILS 0 % 10/15/2023 7:56 AM ENGRAVING PATTERNMAKER [facility] IMMATURE GRANULOCYTES 0 % 10/15/2023 7:56 AM ENGRAVING PATTERNMAKER [facility] . [facility] NEUTROPHIL ABSOLUTE 2.53 1.90 - 7.00 K/uL 10/15/2023 7:56 AM ENGRAVING PATTERNMAKER [facility] LYMPHOCYTE ABSOLUTE 1.71 0.70 - 4.50 K/uL 10/15/2023 7:56 AM ENGRAVING PATTERNMAKER [facility] MONOCYTE ABSOLUTE 0.30 0.10 - 1.30 K/uL 10/15/2023 7:56 AM ENGRAVING PATTERNMAKER [facility] EOSINOPHIL ABSOLUTE 0.02 0.00 - 0.70 K/uL 10/15/2023 7:56 AM ENGRAVING PATTERNMAKER [facility] BASOPHILS ABSOLUTE 0.01 0.00 - 0.20 K/uL 10/15/2023 7:56 AM ENGRAVING PATTERNMAKER [facility] IMMATURE GRANULOCYTES ABSOLUTE 0.01 0.00 - 0.03 K/uL 10/15/2023 7:56 AM ENGRAVING PATTERNMAKER [facility] . [facility] Blood Capillary / Unknown 10/15/2023 7:43 AM ENGRAVING PATTERNMAKER 10/15/2023 7:54 AM ENGRAVING PATTERNMAKER Aviva Humphries MD HEMATOLOGY ORDERABLE S [facility] - [facility] CLIA# [id number] [address] [place] [address] documented in this encounter Visit Diagnoses Diagnosis Malignant neoplasm of ovary, unspecified laterality documented in this encounter Administered Medications Inactive Administered Medications - up to 3 most recent administrations Medication Order MAR Action Action Date Dose Rate Site sodium chloride flush injection 10 mL 10 mL, IV, SEE ADMIN INSTRUCTIONS, Starting on Thu10/15/23 at 0820, Until Thu10/16/23 at 0304, Routine Given 10/15/2023 8:20 AM ENGRAVING PATTERNMAKER 10 mL documented in this encounter Care Teams Ssis Ssrs Developer Relationship Specialty Start Date End Date Shilo Soares MD [address] [place] [address] PCP - General Internal Medicine 04/24/23 documented as of this encounter
--- OUTSIDE RECORDS SUMMARY | 2024-07-26 23:56 | XMS_ITS | Encounter Summary ---
Author Organization [facility] Address [address] [place] [address] Care Team Providers Care Chemical Dependency Therapist Name Role Phone Shilo Soares MD Primary Care Provider [phone] Encounter Details Date Type Department Care Team (Late Contact Info) Description 10/02/2023 External Device Data STL ABSTRACTION Provider, Abstract [...] (Late Contact Info) Description 08/04/2024 1:00 PM ASH CONVEYOR OPERATOR Appointment [facility] 2nd La [address] [place] [address] Aviva Humphries MD [address] [place] [address] Infusion Chair 5, 2nd Floor Hall 08/25/2024 1:00 PM ASH CONVEYOR OPERATOR Office Visit [facility] Gynecologic Oncology Hall [address] [place] [address] Edilia Pettit, CHELY [address] [place] [address] 08/25/2024 1:30 PM ASH CONVEYOR OPERATOR Appointment [facility] 2nd Fl [address] [place] [address] Aviva Humphries MD [address] [place] [address] Infusion Chair 1, 2nd Floor [place] 09/01/2024 10:45 AM ASH CONVEYOR OPERATOR Appointment Randy [facility] Cancer [facility] Nuclear Medicine [address] [place] [address] [id number] Edilia Pettit, CHELY [address] [facility] [address] [place] [address] documented as of this encounter Visit Diagnoses Not on filedocumented in this encounter Care Teams Chemical Dependency Therapist Relationship Specialty Start Date End Date Shilo Soares MD [address] [place] [address] PCP - General Internal Medicine 04/24/23 documented as of this encounter
--- OUTSIDE RECORDS SUMMARY | 2024-07-26 23:56 | XMS_ITS | Encounter Summary ---
Author Organization [facility] Address [address] [place] [address] Care Team Providers Care Hot Dip Plater Name Role Phone Shilo Soares MD Primary Care Provider [phone] Encounter Details Date Type Department Care Team (Late Contact Info) Description 10/11/2023 External Device Data STL ABSTRACTION Provider, Abstract [...] (Late Contact Info) Description 08/04/2024 1:00 PM BINDER CASER Appointment [facility] 2nd Hi [address] [place] [address] Aviva Humphries MD [address] [place] [address] Infusion Chair 5, 2nd Floor Hall 08/25/2024 1:00 PM BINDER CASER Office Visit [facility] Gynecologic Oncology Hall [address] [place] [address] Edilia Pettit, CHELY [address] [place] [address] 08/25/2024 1:30 PM BINDER CASER Appointment [facility] 2nd Fl [address] [place] [address] Aviva Humphries MD [address] [place] [address] Infusion Chair 1, 2nd Floor [place] 09/01/2024 10:45 AM BINDER CASER Appointment Randy [facility] Nuclear Medicine [address] [place] [address] [id number] Edilia Pettit, CHELY [address] [facility] [address] [place] [address] documented as of this encounter Visit Diagnoses Not on filedocumented in this encounter Care Teams Hot Dip Plater Relationship Specialty Start Date End Date Shilo Soares MD [address] [place] [address] PCP - General Internal Medicine 04/24/23 documented as of this encounter
--- OUTSIDE RECORDS SUMMARY | 2024-07-26 23:56 | XMS_ITS | Encounter Summary ---
Author Organization [facility] Address [address] [place] [address] Care Team Providers Care Paint Mixer Name Role Phone Shilo Soares MD Primary Care Provider [phone] Reason for Visit * Reason Comments Med Refill Encounter Details Date Type Department Care Team (Late Contact Info) Description 10/05/2023 Refill [facility] Gynecologic Oncology [address] [place] [address] Aviva Humphries MD [address] [place] [address] Social History Tobacco Use Types [...] (Late Contact Info) Description 08/04/2024 1:00 PM ELECTROLYSIS NEEDLE OPERATOR Appointment [facility] [address] [place] [address] Aviva Humphries MD [address] [place] [address] Infusion Chair 5, 2nd Floor Hall 08/25/2024 1:00 PM ELECTROLYSIS NEEDLE OPERATOR Office Visit [facility] Gynecologic Oncology Hall [address] [place] [address] Edilia Pettit, CHELY [address] [place] [address] 08/25/2024 1:30 PM ELECTROLYSIS NEEDLE OPERATOR Appointment [facility] 2nd Sd [address] [place] [address] Aviva Humphries MD [address] [place] [address] Infusion Chair 1, 2nd Floor Hall 09/01/2024 10:45 AM ELECTROLYSIS NEEDLE OPERATOR Appointment Randy [facility] Nuclear Medicine [address] [place] [address] [id number] Edilia Pettit, CHELY [address] [facility] [address] [place] [address] documented as of this encounter Visit Diagnoses Not on filedocumented in this encounter Care Teams Paint Mixer Relationship Specialty Start Date End Date Shilo Soares MD [address] [place] [address] PCP - General Internal Medicine 04/24/23 documented as of this encounter
--- OUTSIDE RECORDS SUMMARY | 2024-07-26 23:56 | XMS_ITS | Encounter Summary ---
Author Organization [facility] Address [address] [place] [address] Care Team Providers Care Duct Cleaner Name Role Phone Shilo Soares MD Primary Care Provider [phone] Encounter Details Date Type Department Care Team (Late Contact Info) Description 10/14/2023 External Device Data STL ABSTRACTION Provider, Abstract [...] (Late Contact Info) Description 08/04/2024 1:00 PM CONTINUOUS IMPROVEMENT FACILITATOR Appointment [facility] 2nd [place] [address] [place] [address] Aviva Humprhies MD [address] [place] [address] Infusion Chair 5, 2nd Floor Hall 08/25/2024 1:00 PM CONTINUOUS IMPROVEMENT FACILITATOR Office Visit [facility] Gynecologic Oncology Hall [address] [place] [address] Edilia Pettit, CHELY [address] [facility] [place] [address] 08/25/2024 1:30 PM CONTINUOUS IMPROVEMENT FACILITATOR Appointment [facility] 2nd Fl [address] [place] [address] Aviva Humphries MD [address] [facility] [address] [facility] [address] [place] [address] Infusion Chair 1, 2nd Floor [place] 09/01/2024 10:45 AM CONTINUOUS IMPROVEMENT FACILITATOR Appointment Randy Hall [facility] Nuclear Medicine [address] [place] [address] [id number] Edilia Pettit, CHELY [address] [facility] [address] [place] [address] documented as of this encounter Visit Diagnoses Not on filedocumented in this encounter Care Teams Duct Cleaner Relationship Specialty Start Date End Date Shilo Soares MD [address] [place] [address] PCP - General Internal Medicine 04/24/23 documented as of this encounter
--- OUTSIDE RECORDS SUMMARY | 2024-07-26 23:56 | XMS_ITS | Encounter Summary ---
Author Organization [facility] Address [address] [place] [address] Care Team Providers Care Multi Media Specialist Name Role Phone Shilo Soares MD Primary Care Provider [phone] Encounter Details Date Type Department Care Team (Late Contact Info) Description 10/17/2023 External Device Data STL ABSTRACTION Provider, Abstract [...] (Late Contact Info) Description 08/04/2024 1:00 PM PLASTIC MOLDING OPERATOR Appointment [facility] 2nd Co [address] [place] [address] Aviva Humphries MD [address] [place] [address] Infusion Chair 5, 2nd Floor Hall 08/25/2024 1:00 PM PLASTIC MOLDING OPERATOR Office Visit [facility] Gynecologic Oncology Hall [address] [place] [address] Edilia Pettit, CHELY [address] [place] [address] 08/25/2024 1:30 PM PLASTIC MOLDING OPERATOR Appointment [facility] 2nd Fl [address] [place] [address] Aviva Humphries MD [address] [place] [address] Infusion Chair 1, 2nd Floor [place] 09/01/2024 10:45 AM PLASTIC MOLDING OPERATOR Appointment Randy Hall Cancer [facility] Nuclear Medicine [address] [place] [address] [id number] Edilia Pettit, CHELY [address] [facility] [address] [place] [address] documented as of this encounter Visit Diagnoses Not on filedocumented in this encounter Care Teams Multi Media Specialist Relationship Specialty Start Date End Date Shilo Soares MD [address] [place] [address] PCP - General Internal Medicine 04/24/23 documented as of this encounter
--- OUTSIDE RECORDS SUMMARY | 2024-07-26 23:56 | XMS_ITS | Encounter Summary ---
Author Organization [facility] Address [address] [place] [address] Care Team Providers Care Wireless Manager Name Role Phone Shilo Soares MD Primary Care Provider [phone] Encounter Details Date Type Department Care Team (Late Contact Info) Description 10/19/2023 External Device Data STL ABSTRACTION Provider, Abstract [...] (Late Contact Info) Description 08/04/2024 1:00 PM SHOPFITTER Appointment [facility] Center 2nd Wa [address] [place] [address] Aviva Humphries MD [address] [place] [address] Infusion Chair 5, 2nd Floor Hall 08/25/2024 1:00 PM SHOPFITTER Office Visit [facility] Gynecologic Oncology Hall [address] [place] [address] Edilia Pettit, CHELY [address] [facility] [address] [place] [phone] 08/25/2024 1:30 PM SHOPFITTER Appointment [facility] 2nd Fl [address] [place] [address] Aviva Humphries MD [address] [place] [address] Infusion Chair 1, 2nd Floor [place] 09/01/2024 10:45 AM SHOPFITTER Appointment [facility] Nuclear Medicine [address] [place] [phone] [id number] Edilia Pettit, CHELY [address] [facility] [address] [place] [address] documented as of this encounter Visit Diagnoses Not on filedocumented in this encounter Care Teams Wireless Manager Relationship Specialty Start Date End Date Shilo Soares MD [address] [place] [phone] PCP - General Internal Medicine 04/24/23 documented as of this encounter
--- OUTSIDE RECORDS SUMMARY | 2024-07-26 23:56 | XMS_ITS | Encounter Summary ---
Author Organization [facility] Address [address] [place] [address] Care Team Providers Care Fly Rail Operator Name Role Phone Shilo Soares MD Primary Care Provider [phone] Reason for Visit * Tx/Med Therapy Plan Auth (Routine) - Authorized Specialty Diagnoses / Procedures Referred By Alison gomez Referred To Contact Diagnoses Malignant neoplasm of ovary, unspecified laterality Encounter for antineoplastic chemotherapy Nausea Procedures VA PACLITAXEL INJECTION VA CARBOPLATIN INJECTION VA INJ MVASI 10 MG VA FOSAPREPITANT INJECTION VA PALONOSETRON HCL VA DEXAMETHASONE SODIUM PHOS VA METHYLPREDNISOLONE INJECTION VA DIPHENHYDRAMINE HCL INJECTIO VA INJECTION, FAMOTIDINE, 20 MG TAXOL, CARBO, MVASI, EMEND, ALOXI, DECADRON, SOLU MEDROL, BENADRYL, PEPCID Aviva Humphries MD [address] [facility] [address] [place] [address] [facility] Infusion Steward 2nd Floor [place] [address] [place] [address] Referral ID Status Reason Start Date Expiration Date V isits Requested Visits Authorized [id number] Authorized 05/20/2023 05/26/2025 99 99 Encounter Details Date Type Department Care Team (Latest Contact Info) Description 10/15/2023 8:05 AM REFRESH TECHNICIAN - 10/15/2023 11:59 PM [facility] Hospital Encounter [facility] Infusion Center 2nd Fl [address] [place] [address] Aviva Humphries MD [address] [facility] [address] [place] [address] Infusion Chair 9, 2nd Floor [...] Sign Reading Time Taken Comments Blood Pressure 128/74 10/15/2023 9:09 AM REFRESH TECHNICIAN Pulse 96 10/15/2023 9:09 AM REFRESH TECHNICIAN Temperature 36.3 ??C (97.4 ??F) 10/15/2023 9:09 AM CS T Respiratory Rate 16 10/15/2023 9:09 AM REFRESH TECHNICIAN Oxygen Saturation - - Inhaled Oxygen Concentration - - Weight 47.9 kg (105 lb 9.6 oz) 10/15/2023 9:09 A M REFRESH TECHNICIAN Height - - Body Mass Index 17.04 09/23/2023 2:47 PM REFRESH TECHNICIAN documented in this encounter Medications at Time [...] bedtime. 02/26/2021 fluticasone propionate (FLONASE) 50 mcg/spray [place], Suspension nasal inhaler Administer 2 Sprays in each nostril daily. omega-3 fatty acids-fish oil 300-1,000 mg Capsule Take 2 Capsules by mouth daily. lidocaine-prilocaine (EMLA) 2.5-2.5 % Cream APPLY A THIN LAYER OVER PORT SITE 30-45 MINUTES PRIOR TO CHEMOTHERAPY. 30 Gram 10/05/2023 12/14/2023 documented as of this encounter Progress Notes * Gilma Michaels RN - 10/15/2023 8:30 AM CST OP35: What is your pain level on a scale of 0-10? 0 Do you have nausea? No Do you have diarrhea? No Do you have fever? No Do you have fatigue? No ESH TECHNICIAN * Gilma Michaels RN - 10/15/2023 8:30 AM CST Pt admitted to infusion center for treatment. Labs reviewed per 2 licensed providers and okay to treat per parameters. Prior to chemotherapy administration: reviewed with pt the goal of chemotherapy regimen, the method of administration, and potential side effects. Taxol/Carbo/MVASI administered via port without adverse effects. Good blood return obtained from port. Instructed pt to notify physician or go to ED if fever 100.5 F or higher, chills, or any change in condition. Pt verbalized understanding. Discharged home. Following tx scheduled for 11/05/23. ESH TECHNICIAN documented in this encounter Plan of Treatment Upcoming Encounters Date Type Department Care Team (Late st Contact Info) Description 08/04/2024 1:00 PM REFRESH TECHNICIAN Appointment [facility] Infusion Center 2nd [place] [address] [place] [address] Aviva Humphries MD [address] [facility] [address] [place] [phone] Infusion Chair 5, 2nd Floor Hall 08/25/2024 1:00 PM REFRESH TECHNICIAN Office Visit [facility] Gynecologic Oncology Hall [address] [facility] [address] [place] [address] Edilia Pettit, CHELY [address] [address] 08/25/2024 1:30 PM REFRESH TECHNICIAN Appointment [facility] Hall [facility] Infusion Center 2nd Fl [address] [place] [address] Aviva Humphries MD [address] [facility] [address] [place] [phone] Infusion Chair 1, 2nd Floor Hall 09/01/2024 10:45 AM REFRESH TECHNICIAN Appointment [facility] Nuclear Medicine [address] [place] [address] [id number] Edilia Pettit, FISH FARM LABORER [address] [facility] [address] [place] [phone] documented as of this encounter Results * CANCER ANTIGEN 125 (10/15/2023 7:43 AM REFRESH TECHNICIAN) [facility] Signature CA 125 6 <35 U/mL [facility] Comment: This test was performed using the Siemens Chemiluminescent method. Values obtained from different assay methods cannot be used interchangeably. CA 125 levels, regardless of value, should not be interpreted as absolute evidence of the presence or absence of disease. Test Performed at: [facility] [address] [place], [place] ??[address] Radha Perez MD Blood 10/15/2023 7:43 AM REFRESH TECHNICIAN 10/15/2023 8:10 AM REFRESH TECHNICIAN Aviva Humphries MD CHEMISTRY ORDERABLES [facility] [phone] [facility] [address] [place] [address] * (ABNORMAL) URINALYSIS WITH REFLEX MICROSCOPIC (10/15/2023 7:43 AM REFRESH TECHNICIAN) COLOR UA Yellow Pale to Dark Yellow 10/15/2023 8:18 AM REFRESH TECHNICIAN [facility] CLARITY UA Clear Clear 10/15/2023 8:18 AM REFRESH TECHNICIAN [facility] SPECIFIC GRAVITY UA 1.010 1.003 - 1.035 10/15/2023 8:18 AM REFRESH TECHNICIAN [facility] PH UA 5.0 5.0 - 8.0 10/15/2023 8:18 AM REFRESH TECHNICIAN [facility] LEUKOCYTE ESTERASE UA Negative Negative 10/15/2023 8:18 AM [facility] - [facility] NITRITE UA Negative Negative 10/15/2023 8:18 AM [facility] - [facility] PROTEIN UA Negative Negative 10/15/2023 8:18 AM REFRESH TECHNICIAN [facility] GLUCOSE UA Negative Negative 10/15/2023 8:18 AM REFRESH TECHNICIAN [facility] KETONES UA Negative Negative 10/15/2023 8:18 AM REFRESH TECHNICIAN [facility] UROBILINOGEN UA Normal <2.0 mg/dL 8:18 AM REFRESH TECHNICIAN [facility] BILIRUBIN UA Negative Negative 10/15/2023 8:18 AM REFRESH TECHNICIAN [facility] BLOOD UA 1+(A) Negative 10/15/2023 8:18 AM REFRESH TECHNICIAN [facility] WBC UA 0-2 0 - 2 /hpf 10/15/2023 8:18 AM [facility] RBC UA 3-5(A) 0 - 2 /hpf 10/15/2023 8:18 AM [facility] BACTERIA UA 1+(A) Negative /hpf 10/15/2023 8:18 AM [facility]OR[facility] EPITHELIAL CELLS, URINE 0-5 0 - 5 /hpf 10/15/2023 8:18 AM [facility]OR[facility] HYALINE CAST 0-2 None Seen, 0-2 /lpf 10/15/2023 8:18 AM [facility] LABORATORY [facility] Urine URINE SPECIMEN OBTAINED BY CLEAN CATCH PROCEDURE / Unknown Collection / Unknown 10/15/2023 7:43 AM REFRESH TECHNICIAN 10/15/2023 7:58 AM REFRESH TECHNICIAN Aviva Humphries MD URINE ORDERABLES [facility] CLIA# [id number] [address] [place] [address] * MAGNESIUM LEVEL (10/15/2023 7:43 AM REFRESH TECHNICIAN) Pathologist [facility] MAGNESIUM 2.3 1.6 - 2.4 mg/dL 10/15/2023 8:50 AM [facility] [facility] Blood Capillary / Unknown 10/15/2023 7:43 AM REFRESH TECHNICIAN 10/15/2023 7:58 AM REFRESH TECHNICIAN Aviva Humphries MD CHEMISTRY ORDERABLES [facility] CLIA# [id number] [address] [place] [address] * (ABNORMAL) COMPREHENSIVE METABOLIC PANEL (10/15/2023 7:43 AM REFRESH TECHNICIAN) SODIUM 137 136 - 145 mmol/L 10/15/2023 8:50 AM REFRESH TECHNICIAN [facility] - [facility] POTASSIUM 4.2 3.5 - 5.0 mmol/L 10/15/2023 8:50 AM [facility] - . [facility] CHLORIDE 101 98 - 107 mmol/L 10/15/2023 8:50 AM [facility] - [facility] CO2 25 22 - 29 mmol/L 10/15/2023 8:50 AM [facility] - . [facility] CALCIUM 9.6 8.6 - 10.2 mg/dL 10/15/2023 8:50 AM [facility] - . [facility] BUN 10 8 - 23 mg/dL 10/15/2023 8:50 AM [facility] - . [facility] CREATININE 0.77 0.51 - 0.95 mg/dL 10/15/2023 8:50 AM [facility] - . [facility] GLUCOSE 101(H) 74 - 99 mg/dL 10/15/2023 8:50 AM [facility] - . [facility] TOTAL PROTEIN 7.5 6.7 - 8.6 g/dL 10/15/2023 8:50 AM [facility] - . [facility] ALBUMIN 4.3 3.5 - 5.2 g/dL 10/15/2023 8:50 AM [facility] - . [facility] BILIRUBIN TOTAL 0.2 0.2 - 1.1 mg/dL 10/15/2023 8:50 AM [facility] - . [facility] ALKALINE PHOSPHATASE 112(H) 35 - 104 U/L 10/15/2023 8:50 AM [facility] AST 38(H) <33 U/L 10/15/2023 8:50 AM [facility] - . [facility] ALT 61(H) <34 U/L 10/15/2023 8:50 AM REFRESH TECHNICIAN [facility] - . [facility] GFR >60 >=60 mL/min/1.7 3 sq meter 10/15/2023 8:50 AM [facility] Comment:eGFR calculated with 2020 CKD-EPI equation. Vegetarian diet, extremely high or low muscle mass, and may affect results. Cystatin C with Glomerular Filtration Rate is a suitable alternative for these patients. ANION GAP 11 8 - 16 mmol/L 10/15/2023 8:50 AM [facility] LABOR[facility]ORY [facility] Blood Capillary / Unknown 10/15/2023 7:43 AM REFRESH TECHNICIAN 10/15/2023 7:58 AM [facility] - 10/15/2023 8:50 AM REFRESH TECHNICIAN Samples containing indocyanine green cause interferences on Total and/or Direct Bilirubin and must not be measured. Aviva Humphries MD CHEMISTRY ORDERABLES [facility] [employer] [facility] CLIA# [id number] [address] [place] [address] * (ABNORMAL) CBC WITH DIFFERENTIAL (10/15/2023 7:43 AM REFRESH TECHNICIAN) WBC 4.6 4.0 - 9.8 K/uL 10/15/2023 7:56 AM [facility] [facility] RBC 3.38(L) 3.90 - 4.90 M/uL 10/15/2023 7:56 AM [facility] HEMOGLOBIN 11.2(L) 11.8 - 14.8 g/dL 10/15/2023 7:56 AM [facility] [facility] HEMATOCRIT 34.2(L) 35.5 - 44.0 % 10/15/2023 7:56 AM [facility] [facility] MCV 101.2(H) 82.0 - 99.0 fL 10/15/2023 7:56 AM [facility] [facility] MCH 33.1(H) 27.2 - 32.6 pg 10/15/2023 7:56 AM [facility] [facility] MCHC 32.7 31.5 - 35.5 g/dL 10/15/2023 7:56 AM [facility] [facility] RDW 15.0(H) 11.5 - 14.5 % 10/15/2023 7:56 AM [facility] [facility] RDW-STDEV 54.4(H) 37.1 - 48.7 fL 10/15/2023 7:56 AM [facility] - [facility] PLATELETS 161 140 - 350 K/uL 10/15/2023 7:56 AM [facility] SERVICES - [facility] MPV 9.6 9.3 - 12.4 fL 10/15/2023 7:56 AM [facility] NEUTROPHILS 55 % 10/15/2023 7:56 AM [facility] LYMPHOCYTES 37 % 10/15/2023 7:56 AM [facility] MONOCYTES 7 % 10/15/2023 7:56 AM [facility] EOSINOPHILS 0 % 10/15/2023 7:56 AM [facility] - [facility] BASOPHILS 0 % 10/15/2023 7:56 AM [facility] - [facility] IMMATURE GRANULOCYTES 0 % 10/15/2023 7:56 AM [facility] - [facility] NEUTROPHIL ABSOLUTE 2.53 1.90 - 7.00 K/uL 10/15/2023 7:56 AM [facility] - [facility] LYMPHOCYTE ABSOLUTE 1.71 0.70 - 4.50 K/uL 10/15/2023 7:56 AM [facility] - [facility] MONOCYTE ABSOLUTE 0.30 0.10 - 1.30 K/uL 10/15/2023 7:56 AM [facility] - [facility] EOSINOPHIL ABSOLUTE 0.02 0.00 - 0.70 K/uL 10/15/2023 7:56 AM [facility] - [facility] BASOPHILS ABSOLUTE 0.01 0.00 - 0.20 K/uL 10/15/2023 7:56 AM [facility] - [facility] IMMATURE GRANULOCYTES ABSOLUTE 0.01 0.00 - 0.03 K/uL 10/15/2023 7:56 AM [facility] Blood Capillary / Unknown 10/15/2023 7:43 AM REFRESH TECHNICIAN 10/15/2023 7:54 AM REFRESH TECHNICIAN Aviva Humphries MD HEMATOLOGY ORDERABLE S [facility] CLIA# [id number] [address] [place] [address] documented in this encounter Visit Diagnoses Diagnosis [...] ONE TIME ONLY, 1 dose, On Peace 10/15/23 at 1315, Routine Rate Verify 10/15/2023 1:48 PM REFRESH TECHNICIAN 145.9 m L/hr New Bag 10/15/2023 1:48 PM REFRESH TECHNICIAN 773 mg 145.9 mL/hr CARBOplatin (PARAPLATIN) 430 mg in dextrose 5% 250 mL IVPB 430 mg (rounded from 429 mg, Target AUC = 5), IV, ONE TIME ONLY, 1 dose, On Peace 10/15/23 at 1245, Routine New Bag 10/15/2023 1:18 PM REFRESH TECHNICIAN 430 mg 656 mL/hr dexAMETHasone (DECADRON) 20 mg in sodium chloride 0.9% 100 mL IVPB (PREMIX) 20 mg, IV, ONE TIME ONLY, 1 dose, On Peace 10/15/23 at 0915, Routine Rate Verify 10/15/2023 9:40 AM REFRESH TECHNICIAN 300 mL/hr New Bag 10/15/2023 9:39 AM REFRESH TECHNICIAN 20 mg 300 mL/hr diphenhydrAMINE (BENADRYL) injection 25 mg 25 mg, IV, ONE TIME ONLY, 1 dose, On Peace 10/15/23 at 0915, Routine Given 10/15/2023 9:25 AM REFRESH TECHNICIAN 25 mg famotidine PF (PEPCID) 20 mg/2 mL injection 20 mg 20 mg, IV, ONE TIME ONLY, 1 dose, On Peace 10/15/23 at 0915, Routine Given 10/15/2023 9:25 AM REFRESH TECHNICIAN 20 mg fosaprepitant (EMEND) 150 mg in sodium chloride 0.9% 150 mL IVPB (PREMIX) 150 mg, IV, ONE TIME ONLY, 1 dose, On Peace 10/15/23 at 0915, Routine Rate Verify 10/15/2023 9:40 AM REFRESH TECHNICIAN 450 mL/hr New Bag 10/15/2023 9:40 AM REFRESH TECHNICIAN 150 mg 450 mL/hr PACLitaxeL (TAXOL) 271 mg in sodium chloride 0.9% (PVC free) 500 mL IVPB 271 mg (rounded from 271.25 mg = 175 mg/m2 ? 1.55 m2 Treatment Plan BSA from Recorded weight), IV, ONE TIME ONLY, 1 dose, On Peace 10/15/23 at 0945, Routine New Bag 10/15/2023 10:14 AM REFRESH TECHNICIAN 271 mg 195.1 mL/hr palonosetron (ALOXI) 0.25 mg/5 mL injection 0.25 mg 0.25 mg, IV, ONE TIME ONLY, 1 dose, On Peace 10/15/23 at 0915, Routine Given 10/15/2023 9:25 AM REFRESH TECHNICIAN 0.25 mg sodium chloride 0.9% infusion IV, at 30-999 mL/hr, CONTINUOUS, Starting on Peace 10/15/23 at 0915, Until Thu10/16/23 at 0304, Routine Rate Change 10/15/2023 2:47 PM REFRESH TECHNICIAN 300 mL/ hr Restarted 10/15/2023 9:30 AM REFRESH TECHNICIAN 30 mL/hr New Bag 10/15/2023 9:22 AM REFRESH TECHNICIAN 30 mL/hr 30 mL/hr sodium chloride flush injection 10 mL 10 mL, IV, SEE ADMIN INSTRUCTIONS, Starting on Peace 10/15/23 at 0909, Until Thu10/16/23 at 0304, Routine Given 10/15/2023 9:22 AM REFRESH TECHNICIAN 10 mL documented in this encounter Care Teams Fly Rail Operator Relationship Specialty Start Date End Date Shilo Soares MD [address] [place] [phone] PCP - General Internal Medicine 04/24/23 documented as of this encounter
--- OUTSIDE RECORDS SUMMARY | 2024-07-26 23:56 | XMS_ITS | Encounter Summary ---
Author Organization [facility] Address [address] [place] [address] Care Team Providers Care Cake Puncher Name Role Phone Shilo Soares MD Primary Care Provider [phone] Encounter Details Date Type Department Care Team (Late Contact Info) Description 09/27/2023 External Device Data STL ABSTRACTION Provider, Abstract [...] (Late Contact Info) Description 08/04/2024 1:00 PM DIRECTORY COMPILER Appointment [facility]fusion Center 2nd Md [address] [place] [address] Aviva Humphries MD [address] [place] [address] Infusion Chair 5, 2nd Floor Hall 08/25/2024 1:00 PM DIRECTORY COMPILER Office Visit [facility] Gynecologic Oncology Hall [address] [place] [address] Edilia Pettit, CHELY [address] [facility] [address] [place] [phone] 08/25/2024 1:30 PM DIRECTORY COMPILER Appointment [facility]fusion Center 2nd Fl [address] [place] [phone] Aviva Humphries MD [address] [facility] [facility] [address] [place] [address] Infusion Chair 1, 2nd Floor [place] 09/01/2024 10:45 AM DIRECTORY COMPILER Appointment [facility] Nuclear Medicine [address] [place] [phone] [id number] Edilia Pettit, CHELY [address] [facility] [address] [place] [phone] documented as of this encounter Visit Diagnoses Not on filedocumented in this encounter Care Teams Cake Puncher Relationship Specialty Start Date End Date Shilo Soares MD [address] [place] [phone] PCP - General Internal Medicine 04/24/23 documented as of this encounter
--- OUTSIDE RECORDS SUMMARY | 2024-07-26 23:56 | XMS_ITS | Encounter Summary ---
Author Organization [facility] Address [address] [place] [address] Care Team Providers Care [address] Light Repairer Name Role Phone Shilo Soares MD Primary Care Provider [phone] Encounter Details Date Type Department Care Team (Late Contact Info) Description 09/30/2023 External Device Data STL ABSTRACTION Provider, Abstract [...] Contact Info) Description 08/04/2024 1:00 PM CROP ROLLER Appointment [facility] 2nd Sc [address] [place] [address] Aviva Humphries MD [address] [place] [address] Infusion Chair 5, 2nd Floor Hall 08/25/2024 1:00 PM CROP ROLLER Office Visit [facility] Gynecologic Oncology Hall [address] [place] [address] Edilia Pettit, CHELY [address] [facility] [address] [place] [phone] 08/25/2024 1:30 PM CROP ROLLER Appointment [facility] 2nd Fl [address] [place] [address] Aviva Humphries MD [address] [facility] [facility] [address] [place] [address] Infusion Chair 1, 2nd Floor [place] 09/01/2024 10:45 AM CROP ROLLER Appointment [facility] Nuclear Medicine [address] [place] [address] [phone] Edilia Pettit, CHELY [address] [facility] [address] [place] [address] documented as of this encounter Visit Diagnoses Not on filedocumented in this encounter Care Teams Street Light Repairer Relationship Specialty Start Date End Date Shilo Soares MD [address] [place] [phone] PCP - General Internal Medicine 04/24/23 documented as of this encounter
--- OUTSIDE RECORDS SUMMARY | 2024-07-26 23:56 | XMS_ITS | Encounter Summary ---
Author Organization [facility] Address [address] [place] [address] Care Team Providers Care Electrical Laboratory Technician Name Role Phone Shilo Soares MD Primary Care Provider [phone] Encounter Details Date Type Department Care Team (Late Contact Info) Description 10/10/2023 External Device Data STL ABSTRACTION Provider, Abstract [...] (Late Contact Info) Description 08/04/2024 1:00 PM TOY PAINTER Appointment [facility] [address] [place] [address] Aviva Humphries MD [address] [place] [address] Infusion Chair 5, 2nd Floor [place] 08/25/2024 1:00 PM TOY PAINTER Office Visit [facility] Gynecologic Oncology Hlal [address] [place] [address] Edilia Pettit, CHELY [address] [place] [address] 08/25/2024 1:30 PM TOY PAINTER Appointment [facility] 2nd Fl [address] [place] [address] Aviva Humphries MD [address] [place] [address] Infusion Chair 1, 2nd Floor [place] 09/01/2024 10:45 AM TOY PAINTER Appointment [facility] Nuclear Medicine [address] [place] [address] [id number] Edilia Pettit, CHELY [address] [facility] [address] [place] [address] documented as of this encounter Visit Diagnoses Not on filedocumented in this encounter Care Teams Electrical Laboratory Technician Relationship Specialty Start Date End Date Shilo Soares MD [address] [place] [address] PCP - General Internal Medicine 04/24/23 documented as of this encounter
--- OUTSIDE RECORDS SUMMARY | 2024-07-26 23:56 | XMS_ITS | Encounter Summary ---
Author Organization [facility] Address [address] [place] [address] Care Team Providers Care Discovery Guide Name Role Phone Shilo Soares MD Primary Care Provider [phone] Encounter Details Date Type Department Care Team (Late Contact Info) Description 10/12/2023 External Device Data STL ABSTRACTION Provider, Abstract [...] Contact Info) Description 08/04/2024 1:00 PM SENIOR VICE PRESIDENT AND CHIEF INFORMATION OFFICER Appointment [facility] 2nd [place] [address] [place] [address] Aviva Humphries MD [address] [place] [address] Infusion Chair 5, 2nd Floor Hall 08/25/2024 1:00 PM SENIOR VICE PRESIDENT AND CHIEF INFORMATION OFFICER Office Visit [facility] Gynecologic Oncology Hall [address] [place] [address] Edilia Pettit, CHELY [address] [place] [address] 08/25/2024 1:30 PM SENIOR VICE PRESIDENT AND CHIEF INFORMATION OFFICER Appointment [facility] 2nd Fl [address] [place] [address] Aviva Humphries MD [address] [place] [address] Infusion Chair 1, 2nd Floor [place] 09/01/2024 10:45 AM SENIOR VICE PRESIDENT AND CHIEF INFORMATION OFFICER Appointment Randy Hall Cancer [facility] Nuclear Medicine [address] [place] [address] [id number] Edilia Pettit, CHELY [address] [facility] [address] [place] [address] documented as of this encounter Visit Diagnoses Not on filedocumented in this encounter Care Teams Discovery Guide Relationship Specialty Start Date End Date Shilo Soares MD [address] [place] [address] PCP - General Internal Medicine 04/24/23 documented as of this encounter
--- OUTSIDE RECORDS SUMMARY | 2024-07-26 23:56 | XMS_ITS | Encounter Summary ---
Author Organization [facility] Address [address] [place] [address] Care Team Providers Care Ehs Manager Name Role Phone Shilo Soares MD Primary Care Provider [phone] Encounter Details Date Type Department Care Team (Late Contact Info) Description 09/29/2023 External Device Data STL ABSTRACTION Provider, Abstract [...] (Late Contact Info) Description 08/04/2024 1:00 PM BINDING FOLDER MACHINE Appointment [facility] 2[facility] De [address] [place] [address] Aviva Humphries MD [address] [place] [address] Infusion Chair 5, 2nd Floor [place] 08/25/2024 1:00 PM BINDING FOLDER MACHINE Office Visit [facility] Gynecologic Oncology Hall [address] [place] [address] Edilia Pettit, CHELY [address] [place] [address] 08/25/2024 1:30 PM BINDING FOLDER MACHINE Appointment [facility] 2nd Fl [address] [place] [address] Aviva Humphries MD [address] [place] [address] Infusion Chair 1, 2nd Floor [place] 09/01/2024 10:45 AM BINDING FOLDER MACHINE Appointment Randy [facility] Nuclear Medicine [address] [place] [address] [id number] Edilia Pettit, CHELY [address] [facility] [address] [place] [address] documented as of this encounter Visit Diagnoses Not on filedocumented in this encounter Care Teams Ehs Manager Relationship Specialty Start Date End Date Shilo Soares MD [address] [place] [address] PCP - General Internal Medicine 04/24/23 documented as of this encounter
--- OUTSIDE RECORDS SUMMARY | 2024-07-26 23:56 | XMS_ITS | Encounter Summary ---
Author Organization [facility] Address [address] [place] [address] Care Team Providers Care Director Of Regulatory Affairs Name Role Phone Shilo Soares MD Primary Care Provider [phone] Encounter Details Date Type Department Care Team (Late Contact Info) Description 10/08/2023 External Device Data STL ABSTRACTION Provider, Abstract [...] Info) Description 08/04/2024 1:00 PM PARCEL POST ORDER CLERK Appointment [facility] Al [address] [place] [address] Aviva Humphries MD [address] [place] [address] Infusion Chair 5, 2nd Floor [place] 08/25/2024 1:00 PM PARCEL POST ORDER CLERK Office Visit [facility] Gynecologic Oncology Hall [address] [place] [address] Edilia Pettit, CHELY [address] [place] [address] 08/25/2024 1:30 PM PARCEL POST ORDER CLERK Appointment [facility] 2nd Fl [address] [place] [address] Aviva Humphries MD [address] [place] [address] Infusion Chair 1, 2nd Floor [place] 09/01/2024 10:45 AM PARCEL POST ORDER CLERK Appointment Randy [facility] Nuclear Medicine [address] [place] [address] [id number] Edilia Pettit, CHELY [address] [facility] [address] [place] [address] documented as of this encounter Visit Diagnoses Not on filedocumented in this encounter Care Teams Director Of Regulatory Affairs Relationship Specialty Start Date End Date Shilo Soares MD [address] [place] [address] PCP - General Internal Medicine 04/24/23 documented as of this encounter
--- OUTSIDE RECORDS SUMMARY | 2024-07-26 23:56 | XMS_ITS | Encounter Summary ---
Author Organization [facility] Address [address] [place] [address] Care Team Providers Care Perforator Loader Name Role Phone Shilo Soares MD Primary Care Provider [phone] Encounter Details Date Type Department Care Team [...] (Late Contact Info) Description 08/04/2024 1:00 PM STRINGER MACHINE TENDER Appointment [facility] [address] [place] [address] Aviva Humphries MD [address] [place] [address] Infusion Chair 5, 2nd Floor [place] 08/25/2024 1:00 PM STRINGER MACHINE TENDER Office Visit [facility] Gynecologic Oncology Hall [address] [place] [address] Edilia Pettit, CHELY [address] [address] [address] [facility] [address] [place] [address] 08/25/2024 1:30 PM STRINGER MACHINE TENDER Appointment [facility] 2nd Fl [address] [place] [address] Aviva Humphries MD [address] [place] [address] Infusion Chair 1, 2nd Floor [place] 09/01/2024 10:45 AM STRINGER MACHINE TENDER Appointment Randy [facility] Nuclear Medicine [address] [place] [address] [id number] Edilia Pettit, CHELY [address] [facility] [address] [place] [address] documented as of this encounter Visit Diagnoses Not on filedocumented in this encounter Care Teams Perforator Loader Relationship Specialty Start Date End Date Shilo Soares MD [address] [place] [address] PCP - General Internal Medicine 04/24/23 documented as of this encounter
--- OUTSIDE RECORDS SUMMARY | 2024-07-26 23:56 | XMS_ITS | Encounter Summary ---
Author Organization [facility] Address [address] [place] [address] Care Team Providers Care Plc Controls Engineer Name Role Phone Shilo Soares MD Primary Care Provider [phone] Encounter Details Date Type Department Care Team (Late Contact Info) Description 10/09/2023 External Device Data STL ABSTRACTION Provider, Abstract [...] (Late Contact Info) Description 08/04/2024 1:00 PM NEEDLE LOOM OPERATOR Appointment [facility] 2nd [place] [address] [place] [address] Aviva Humphries MD [address] [place] [address] Infusion Chair 5, 2nd Floor [place] 08/25/2024 1:00 PM NEEDLE LOOM OPERATOR Office Visit [facility] Gynecologic Oncology Hall [address] [place] [address] Edilia Pettit, CHELY [address] [place] [address] 08/25/2024 1:30 PM NEEDLE LOOM OPERATOR Appointment [facility] 2nd Fl [address] [place] [address] Aviva Humphries MD [address] [facility] [address] [place] [address] Infusion Chair 1, 2nd Floor [place] 09/01/2024 10:45 AM NEEDLE LOOM OPERATOR Appointment Randy Hall [facility] Nuclear Medicine [address] [place] [address] [phone] Edilia Pettit, CHELY [address] [facility] [address] [place] [address] documented as of this encounter Visit Diagnoses Not on filedocumented in this encounter Care Teams Plc Controls Engineer Relationship Specialty Start Date End Date Shilo Soares MD [address] [place] [address] PCP - General Internal Medicine 04/24/23 documented as of this encounter
--- OUTSIDE RECORDS SUMMARY | 2024-07-26 23:56 | XMS_ITS | Encounter Summary ---
Author Organization [facility] Address [address] [place] [address] Care Team Providers Care Snuff Drier Name Role Phone Shilo Soares MD Primary Care Provider [phone] Encounter Details Date Type Department Care Team (Late Contact Info) Description 10/13/2023 External Device Data STL ABSTRACTION Provider, Abstract [...] (Late Contact Info) Description 08/04/2024 1:00 PM BREW HOUSE SUPERVISOR Appointment [facility] 2nd [place] [address] [place] [address] Aviva Humphries MD [address] [place] [address] Infusion Chair 5, 2nd Floor [place] 08/25/2024 1:00 PM BREW HOUSE SUPERVISOR Office Visit [facility] Gynecologic Oncology Hall [address] [place] [address] Edilia Pettit, CHELY [address] [facility] [address] [place] [address] 08/25/2024 1:30 PM BREW HOUSE SUPERVISOR Appointment [facility] 2nd Fl [address] [place] [address] Aviva Humphries MD [address] [facility] [address] [place] [address] Infusion Chair 1, 2nd Floor [place] 09/01/2024 10:45 AM BREW HOUSE SUPERVISOR Appointment Randy Hall [facility] Nuclear Medicine [address] [place] [address] [id number] Edilia Pettit, CHELY [address] [facility] [address] [place] [address] documented as of this encounter Visit Diagnoses Not on filedocumented in this encounter Care Teams Snuff Drier Relationship Specialty Start Date End Date Shilo Soares MD [address] [place] [address] PCP - General Internal Medicine 04/24/23 documented as of this encounter
--- OUTSIDE RECORDS SUMMARY | 2024-07-26 23:56 | XMS_ITS | Encounter Summary ---
Author Organization [facility] Address [address] [place] [address] Care Team Providers Care Filament Welder Name Role Phone Shilo Soares MD Primary Care Provider [phone] Encounter Details Date Type Department Care Team (Late Contact Info) Description 09/28/2023 External Device Data STL ABSTRACTION Provider, Abstract [...] (Late Contact Info) Description 08/04/2024 1:00 PM ICE SKATING INSTRUCTOR Appointment [facility] 2nd [place] [address] [place] [address] Aviva Humphries MD [address] [place] [address] Infusion Chair 5, 2nd Floor [place] 08/25/2024 1:00 PM ICE SKATING INSTRUCTOR Office Visit [facility] Gynecologic Oncology Hall [address] [place] [address] Edilia Pettit, CHELY [address] [place] [address] 08/25/2024 1:30 PM ICE SKATING INSTRUCTOR Appointment [facility] 2nd Fl [address] [place] [address] Aviva Humphries MD [address] [place] [address] Infusion Chair 1, 2nd Floor [place] 09/01/2024 10:45 AM ICE SKATING INSTRUCTOR Appointment Randy Hall [facility] Nuclear Medicine [address] [place] [address] [id number] Edilia Pettit, CHELY [address] [facility] [place] [address] [place] [address] documented as of this encounter Visit Diagnoses Not on filedocumented in this encounter Care Teams Filament Welder Relationship Specialty Start Date End Date Shilo Soares MD [address] [place] [address] PCP - General Internal Medicine 04/24/23 documented as of this encounter
--- OUTSIDE RECORDS SUMMARY | 2024-07-26 23:56 | XMS_ITS | Encounter Summary ---
Author Organization [facility] Address [address] [place] [address] Care Team Providers Care Eligibility And Occupancy Interviewer Name Role Phone Shilo Soares MD Primary Care Provider [phone] Encounter Details Date Type Department Care Team (Late Contact Info) Description 10/03/2023 External Device Data STL ABSTRACTION Provider, Abstract [...] Contact Info) Description 08/04/2024 1:00 PM MANUFACTURING SYSTEMS ENGINEER Appointment [facility] 2[facility] [place] [address] [place] [address] Aviva Humphries MD [address] [place] [address] Infusion Chair 5, 2nd Floor [place] 08/25/2024 1:00 PM MANUFACTURING SYSTEMS ENGINEER Office Visit [facility] Gynecologic Oncology Hall [address] [place] [address] Edilia Pettit, CHELY [address] [facility] [facility] [facility] [address] [place] [address] 08/25/2024 1:30 PM MANUFACTURING SYSTEMS ENGINEER Appointment [facility] 2nd Fl [address] [place] [address] Aviva Humphries MD [address] [facility] [address] [place] [address] Infusion Chair 1, 2nd Floor [place] 09/01/2024 10:45 AM MANUFACTURING SYSTEMS ENGINEER Appointment Randy [facility] Nuclear Medicine [address] [place] [address] [id number] Edilia Pettit, CHELY [address] [facility] [address] [place] [address] documented as of this encounter Visit Diagnoses Not on filedocumented in this encounter Care Teams Eligibility And Occupancy Interviewer Relationship Specialty Start Date End Date Shilo Soares MD [address] [place] [address] PCP - General Internal Medicine 04/24/23 documented as of this encounter
--- OUTSIDE RECORDS SUMMARY | 2024-07-26 23:56 | XMS_ITS | Encounter Summary ---
Author Organization [facility] Address [address] [place] [address] Care Team Providers Care Psychiatric Social Worker Supervisor Name Role Phone Shilo Soares MD Primary Care Provider [phone] Encounter Details Date Type Department Care Team (Late Contact Info) Description 10/01/2023 External Device Data STL ABSTRACTION Provider, Abstract [...] (Late Contact Info) Description 08/04/2024 1:00 PM HEALTH PHYSICIST Appointment [facility] 2nd [place] [address] [place] [address] Aviva Humphries MD [address] [place] [address] Infusion Chair 5, 2nd Floor [place] 08/25/2024 1:00 PM HEALTH PHYSICIST Office Visit [facility] Gynecologic Oncology Hall [address] [place] [address] Edilia Pettit, CHELY [address] [facility] [address] [place] [address] 08/25/2024 1:30 PM HEALTH PHYSICIST Appointment [facility] 2nd Fl [address] [place] [address] Aviva Humphries MD [address] [facility] [facility] [facility] [address] [place] [address] Infusion Chair 1, 2nd Floor [place] 09/01/2024 10:45 AM HEALTH PHYSICIST Appointment Randy Hall [facility] Nuclear Medicine [address] [place] [address] [id number] Edilia Pettit, CHELY [address] [facility] [address] [place] [address] documented as of this encounter Visit Diagnoses Not on filedocumented in this encounter Care Teams Psychiatric Social Worker Supervisor Relationship Specialty Start Date End Date Shilo Soares MD [address] [place] [address] PCP - General Internal Medicine 04/24/23 documented as of this encounter
--- OUTSIDE RECORDS SUMMARY | 2024-07-26 23:56 | XMS_ITS | Encounter Summary ---
Author Organization [facility] Address [address] [place] [address] Care Team Providers Care Refrigeration Specialist Name Role Phone Shilo Soares MD Primary Care Provider [phone] Encounter Details Date Type Department Care Team (Late Contact Info) Description 09/26/2023 External Device Data STL ABSTRACTION Provider, Abstract [...] Contact Info) Description 08/04/2024 1:00 PM FIELD OBSERVER Appointment [facility] 2nd De [address] [place] [address] Aviva Humphries MD [address] [place] [address] Infusion Chair 5, 2nd Floor [place] 08/25/2024 1:00 PM FIELD OBSERVER Office Visit [facility] Gynecologic Oncology Hall [address] [place] [address] Edilia Pettit, CHELY [address] [facility] [address] [place] [address] 08/25/2024 1:30 PM FIELD OBSERVER Appointment [facility] 2nd Fl [address] [place] [address] Aviva Humphries MD [address] [place] [address] Infusion Chair 1, 2nd Floor [place] 09/01/2024 10:45 AM FIELD OBSERVER Appointment Randy Hall [facility] Nuclear Medicine [address] [place] [address] [id number] Edilia Pettit, CHELY [address] [facility] [address] [place] [address] documented as of this encounter Visit Diagnoses Not on filedocumented in this encounter Care Teams Refrigeration Specialist Relationship Specialty Start Date End Date Shilo Soares MD [address] [place] [address] PCP - General Internal Medicine 04/24/23 documented as of this encounter
--- OUTSIDE RECORDS SUMMARY | 2024-07-26 23:56 | XMS_ITS | Encounter Summary ---
Author Organization [facility] Address [address] [place] [address] Care Team Providers Care Mixer Operator Tablets Name Role Phone Shilo Soares MD Primary Care Provider [phone] Encounter Details Date Type Department Care Team (Late Contact Info) Description 10/16/2023 External Device Data STL ABSTRACTION Provider, Abstract [...] (Late Contact Info) Description 08/04/2024 1:00 PM INTENSIVE CARE MEDICINE SPECIALIST Appointment [facility] [address] [address] [place] [address] Aviva Humphries MD [address] [place] [address] Infusion Chair 5, 2nd Floor [place] 08/25/2024 1:00 PM INTENSIVE CARE MEDICINE SPECIALIST Office Visit [facility] Gynecologic Oncology Hall [address] [place] [address] Edilia Pettit, CHELY [address] [facility] [address] [place] [address] 08/25/2024 1:30 PM INTENSIVE CARE MEDICINE SPECIALIST Appointment [facility] 2nd Fl [address] [place] [address] Aviva Humphries MD [address] [facility] [address] [place] [address] Infusion Chair 1, 2nd Floor [place] 09/01/2024 10:45 AM INTENSIVE CARE MEDICINE SPECIALIST Appointment Randy Hall [facility] Nuclear Medicine [address] [place] [address] [id number] Edilia Pettit, CHELY [address] [facility] [address] [place] [address] documented as of this encounter Visit Diagnoses Not on filedocumented in this encounter Care Teams Mixer Operator Tablets Relationship Specialty Start Date End Date Shilo Soares MD [address] [place] [address] PCP - General Internal Medicine 04/24/23 documented as of this encounter
--- OUTSIDE RECORDS SUMMARY | 2024-07-26 23:56 | XMS_ITS | Encounter Summary ---
Author Organization [facility] Address [address] [place] [address] Care Team Providers Care Command Center Analyst Name Role Phone Shilo Soares MD Primary Care Provider [phone] Encounter Details Date Type Department Care Team (Late Contact Info) Description 10/18/2023 External Device Data STL ABSTRACTION Provider, Abstract [...] Contact Info) Description 08/04/2024 1:00 PM WRAPPER COUNTER Appointment [facility] 2nd [place] [address] [place] [address] Aviva Humphries MD [address] [place] [address] Infusion Chair 5, 2nd Floor [place] 08/25/2024 1:00 PM WRAPPER COUNTER Office Visit [facility] Gynecologic Oncology Hall [address] [place] [address] Edilia Pettit, CHELY [address] [facility] [facility] [address] [place] [address] 08/25/2024 1:30 PM WRAPPER COUNTER Appointment [facility] 2nd Fl [address] [place] [address] Aviva Humphries MD [address] [place] [address] Infusion Chair 1, 2nd Floor [place] 09/01/2024 10:45 AM WRAPPER COUNTER Appointment Randy Hall [facility] Nuclear Medicine [address] [place] [address] [id number] Edilia Pettit, CHELY [address] [facility] [address] [place] [address] documented as of this encounter Visit Diagnoses Not on filedocumented in this encounter Care Teams Command Center Analyst Relationship Specialty Start Date End Date Shilo Soares MD [address] [place] [address] PCP - General Internal Medicine 04/24/23 documented as of this encounter
--- OUTSIDE RECORDS SUMMARY | 2024-07-26 23:56 | XMS_ITS | Encounter Summary ---
Author Organization [facility] Address [address] [place] [address] Care Team Providers Care Division Merchandise Manager Name Role Phone Shilo Soares MD Primary Care Provider [phone] Encounter Details Date Type Department Care Team (Late Contact Info) Description 10/15/2023 External Device Data STL ABSTRACTION Provider, Abstract [...] (Late Contact Info) Description 08/04/2024 1:00 PM EXERCISE SCIENTIST Appointment [facility] 2nd Nc [address] [place] [address] Aviva Humphries MD [address] [place] [address] Infusion Chair 5, 2nd Floor Hall 08/25/2024 1:00 PM EXERCISE SCIENTIST Office Visit [facility] Gynecologic Oncology Hall [address] [place] [address] Edilia Pettit, CHELY [address] [place] [address] 08/25/2024 1:30 PM EXERCISE SCIENTIST Appointment [facility] 2nd Fl [address] [place] [address] Aviva Humphries MD [address] [facility] [facility] [address] [facility] [address] [place] [address] Infusion Chair 1, 2nd Floor [place] 09/01/2024 10:45 AM EXERCISE SCIENTIST Appointment [facility] Nuclear Medicine [address] [place] [address] [id number] Edilia Pettit, CHELY [address] [facility] [address] [place] [address] documented as of this encounter Visit Diagnoses Not on filedocumented in this encounter Care Teams Division Merchandise Manager Relationship Specialty Start Date End Date Shilo Soares MD [address] [place] [address] PCP - General Internal Medicine 04/24/23 documented as of this encounter
--- OUTSIDE RECORDS SUMMARY | 2024-07-26 23:56 | XMS_ITS | Encounter Summary ---
Author Organization [facility] Address [address] [place] [address] Care Team Providers Care Kier Operator Name Role Phone Shilo Soares MD Primary Care Provider [phone] Encounter Details Date Type Department Care Team [...] (Late Contact Info) Description 08/04/2024 1:00 PM RESOURCING CONSULTANT Appointment [facility] 2nd Wi [address] [place] [address] Aviva Humphries MD [address] [place] [address] Infusion Chair 5, 2nd Floor Hall 08/25/2024 1:00 PM RESOURCING CONSULTANT Office Visit [facility] Gynecologic Oncology Hall [address] [place] [address] Edilia Pettit, CHELY [address] [facility] [address] [place] [address] 08/25/2024 1:30 PM RESOURCING CONSULTANT Appointment [facility] 2nd Fl [address] [place] [address] Aviva Humphries MD [address] [place] [address] Infusion Chair 1, 2nd Floor [place] 09/01/2024 10:45 AM RESOURCING CONSULTANT Appointment [facility] Nuclear Medicine [address] [place] [address] [id number] Edilia Pettit, CHELY [address] [facility] [address] [place] [address] documented as of this encounter Visit Diagnoses Not on filedocumented in this encounter Care Teams Kier Operator Relationship Specialty Start Date End Date Shilo Soares MD [address] [place] [address] PCP - General Internal Medicine 04/24/23 documented as of this encounter
--- OUTSIDE RECORDS SUMMARY | 2024-07-26 23:57 | XMS_ITS | Encounter Summary ---
Author Organization [facility] Address [address] [place] [address] Care Team Providers Care Iron Bender Name Role Phone Shilo Soares MD Primary Care Provider [phone] Encounter Details Date Type Department Care Team (Latest Contact Info) Description 09/23/2023 12:00 PM PRECIPITATOR SUPERVISOR - 09/23/2023 11:59 PM PRECIPITATOR SUPERVISOR Hospital Encounter Randy [facility] [address] [place] [address] Aviva Humphries MD [address] [place] [address] Discharge Disposition: Home or Self [...] bedtime. 02/26/2021 fluticasone propionate (FLONASE) 50 mcg/spray [place], Suspension nasal inhaler Administer 2 Sprays in each nostril daily. omega-3 fatty acids-fish oil 300-1,000 mg Capsule Take 2 Capsules by mouth daily. lidocaine-prilocaine (EMLA) 2.5-2.5 % Cream Apply a thin layer over port site 30-45 minutes prior to chemotherapy. 30 Gram 05/22/2023 10/05/2023 documented as of this encounter Plan of Treatment Upcoming Encounters Date Type Department Care Team (Late st Contact Info) Description 08/04/2024 1:00 PM PRECIPITATOR SUPERVISOR Appointment [facility] 2nd Fl [address] [place] [address] Aviva Humphries MD [address] [place] [address] Infusion Chair 5, 2nd Floor Hall 08/25/2024 1:00 PM PRECIPITATOR SUPERVISOR Office Visit [facility] Gynecologic Oncology Hall [address] [place] [address] Edilia Pettit, CHELY [address] [facility] [address] [place] [address] 08/25/2024 1:30 PM PRECIPITATOR SUPERVISOR Appointment [facility] Infusion Center 2nd Fl [address] [place] [address] Aviva Humphries MD [address] [facility] [address] [place] [address] Infusion Chair 1, 2nd Floor Hall 09/01/2024 10:45 AM PRECIPITATOR SUPERVISOR Appointment [facility] Nuclear Medicine [address] [place] [address] [id number] Edilia Pettit, CHELY [address] [facility] [address] [place] [address] documented as of this encounter Procedures Procedure Name Priority Date/Time Associated Diagnosis Comments CBC WITH DIFFERENTIAL Stat 09/23/2023 2:19 PM PRECIPITATOR SUPERVISOR Malignant neoplasm of ovary, unspecified laterality MAGNESIUM LEVEL Stat 09/23/2023 2:19 PM PRECIPITATOR SUPERVISOR Malignant neoplasm of ovary, unspecified laterality COMPREHENSIVE METABOLIC PANEL Stat 09/23/2023 2:19 PM PRECIPITATOR SUPERVISOR Malignant neoplasm of ovary, unspecified laterality CANCER ANTIGEN 125 Routine 09/23/2023 2: 18 PM PRECIPITATOR SUPERVISOR Malignant neoplasm of ovary, unspecified laterality documented in this encounter Results * MAGNESIUM LEVEL (09/23/2023 2:19 PM PRECIPITATOR SUPERVISOR) MAGNESIUM 2.2 1.6 - 2.4 mg/dL 09/23/2023 3:46 PM PRECIPITATOR SUPERVISOR [facility] LABORATORY SERVICES [facility] Blood BLOOD SPECIMEN / Unknown Collection / Unknown 09/23/2023 2:19 PM PRECIPITATOR SUPERVISOR 09/23/2023 2:53 PM PRECIPITATOR SUPERVISOR Aviva Humphries MD CHEMISTRY ORDERABLES [facility]ORATORY SERVICES - [facility]# [id number] [address] [place] [address] * (ABNORMAL) COMPREHENSIVE METABOLIC PANEL (09/23/2023 2:19 PM PRECIPITATOR SUPERVISOR) Pathologist [facility] SODIUM 138 136 - 145 mmol/L 09/23/2023 3:46 PM [facility] [employer] LABORATORY SERVICES - [facility] POTASSIUM 3.8 3.5 - 5.0 mmol/L 09/23/2023 3:46 PM [facility] [employer] LABORATORY SERVICES - [facility] CHLORIDE 102 98 - 107 mmol/L 09/23/2023 3:46 PM [facility] [employer] LAB[facility]ATORY SERVICES - [facility] CO2 25 22 - 29 mmol/L 09/23/2023 3:46 PM [facility] LABORATORY [facility] CALCIUM 9.3 8.6 - 10.2 mg/dL 09/23/2023 3:46 PM [facility] [employer] LABORATORY SERVICES - [facility] BUN 11 8 - 23 mg/dL 09/23/2023 3:46 PM [facility] LAB[facility]ATORY SERVICES - [facility] CREATININE 0.71 0.51 - 0.95 mg/dL 09/23/2023 3:46 PM [facility] LAB[facility]ATORY SERVICES - [facility] GLUCOSE 127(H) 74 - 99 mg/dL 09/23/2023 3:46 PM [facility] LABORATORY [facility] TOTAL PROTEIN 7.4 6.7 - 8.6 g/dL 09/23/2023 3:46 PM [facility] [employer] LABORATORY SERVICES - [facility] ALBUMIN 4.1 3.5 - 5.2 g/dL 09/23/2023 3:46 PM [facility] [employer] LABORATORY SERVICES - [facility] BILIRUBIN TOTAL <0.2(L) 0.2 - 1.1 mg/dL 09/23/2023 3:46 PM [facility] [employer] LABORATORY SERVICES - [facility] ALKALINE PHOSPHATASE 100 35 - 104 U/L 09/23/2023 3:46 PM [facility] [employer] LABORATORY [facility] AST 29 <33 U/L 09/23/2023 3:46 PM [facility] ALT 48(H) <34 U/L 09/23/2023 3:46 PM [facility] GFR >60 >=60 mL/min/1.7 3 sq meter 09/23/2023 3:46 PM [facility] Comment:eGFR calculated with 2020 CKD-EPI equation. Vegetarian diet, extremely high or low muscle mass, and may affect results. Cystatin C with Glomerular Filtration Rate is a suitable alternative for these patients. ANION GAP 11 8 - 16 mmol/L 09/23/2023 3:46 PM [facility] Blood BLOOD SPECIMEN / Unknown Collection / Unknown 09/23/2023 2:19 PM PRECIPITATOR SUPERVISOR 09/23/2023 2:53 PM PRECIPITATOR SUPERVISOR [facility] - 09/23/2023 3:46 PM PRECIPITATOR SUPERVISOR Samples containing indocyanine green cause interferences on Total and/or Direct Bilirubin and must not be measured. Aviva Humphries MD CHEMISTRY ORDERABLES [facility]# [id number] [address] [facility] [place] [address] * (ABNORMAL) CBC WITH DIFFERENTIAL (09/23/2023 2:19 PM PRECIPITATOR SUPERVISOR) Pathologist [facility] WBC 6.4 4.0 - 9.8 K/uL 09/23/2023 2:46 PM [facility] RBC 3.28(L) 3.90 - 4.90 M/uL 09/23/2023 2:46 PM [facility] HEMOGLOBIN 10.8(L) 11.8 - 14.8 g/dL 09/23/2023 2:46 PM [facility] HEMATOCRIT 33.2(L) 35.5 - 44.0 % 09/23/2023 2:46 PM [facility] MCV 101.2(H) 82.0 - 99.0 fL 09/23/2023 2:46 PM PRECIPITATOR SUPERVISOR [facility] MCH 32.9(H) 27.2 - 32.6 pg 09/23/2023 2:46 PM PRECIPITATOR SUPERVISOR [facility] MCHC 32.5 31.5 - 35.5 g/dL 09/23/2023 2:46 PM PRECIPITATOR SUPERVISOR [facility] RDW 15.2(H) 11.5 - 14.5 % 09/23/2023 2:46 PM PRECIPITATOR SUPERVISOR [facility] RDW-STDEV 56.6(H) 37.1 - 48.7 fL 09/23/2023 2:46 PM PRECIPITATOR SUPERVISOR [facility] PLATELETS 253 140 - 350 K/uL 09/23/2023 2:46 PM PRECIPITATOR SUPERVISOR [facility] MPV 9.4 9.3 - 12.4 fL 09/23/2023 2:46 PM PRECIPITATOR SUPERVISOR [employer] [facility] - [facility] NEUTROPHILS 56 % 09/23/2023 2:46 PM PRECIPITATOR SUPERVISOR [employer] [employer] LYMPHOCYTES 36 % 09/23/2023 2:46 PM PRECIPITATOR SUPERVISOR [facility] MONOCYTES 7 % 09/23/2023 2:46 PM PRECIPITATOR SUPERVISOR [facility] EOSINOPHILS 1 % 09/23/2023 2:46 PM PRECIPITATOR SUPERVISOR [facility] BASOPHILS 1 % 09/23/2023 2:46 PM PRECIPITATOR SUPERVISOR [facility] IMMATURE GRANULOCYTES 0 % 09/23/2023 2:46 PM PRECIPITATOR SUPERVISOR [facility] NEUTROPHIL ABSOLUTE 3.57 1.90 - 7.00 K/uL 09/23/2023 2:46 PM PRECIPITATOR SUPERVISOR [facility] LYMPHOCYTE ABSOLUTE 2.28 0.70 - 4.50 K/uL 09/23/2023 2:46 PM PRECIPITATOR SUPERVISOR [facility] MONOCYTE ABSOLUTE 0.47 0.10 - 1.30 K/uL 09/23/2023 2:46 PM PRECIPITATOR SUPERVISOR [facility] EOSINOPHIL ABSOLUTE 0.05 0.00 - 0.70 K/uL 09/23/2023 2:46 PM PRECIPITATOR SUPERVISOR [facility] BASOPHILS ABSOLUTE 0.03 0.00 - 0.20 K/uL 09/23/2023 2:46 PM PRECIPITATOR SUPERVISOR [facility] LABORATORY [facility] IMMATURE GRANULOCYTES ABSOLUTE 0.02 0.00 - 0.03 K/uL 09/23/2023 2:46 PM PRECIPITATOR SUPERVISOR [facility] LABORATORY [facility] Blood BLOOD SPECIMEN / Unknown Collection / Unknown 09/23/2023 2:19 PM PRECIPITATOR SUPERVISOR 09/23/2023 2:42 PM PRECIPITATOR SUPERVISOR Aviva Humphries MD HEMATOLOGY ORDERABLE S Performing Organization Address [facility] Co de Phone Number [facility] CLIA# [id number] [address] [place] [address] * CANCER ANTIGEN 125 (09/23/2023 2:18 PM PRECIPITATOR SUPERVISOR) CA 125 7 <35 U/mL [facility] Comment: This test was performed using the Siemens Chemiluminescent method. Values obtained from different assay methods cannot be used interchangeably. CA 125 levels, regardless of value, should not be interpreted as absolute evidence of the presence or absence of disease. Test Performed at: [facility] [address] [place], [place] ??[phone] Radha Perez MD Blood 09/23/2023 2:18 PM PRECIPITATOR SUPERVISOR 09/23/2023 2:26 PM PRECIPITATOR SUPERVISOR Aviva Humphries MD CHEMISTRY ORDERABLES Performing Organization Address [facility] Co de Phone Number [facility] [phone] [facility] [address] [place] [address] documented in this encounter Visit Diagnoses Diagnosis Malignant neoplasm of ovary, unspecified laterality documented in this encounter Administered Medications Inactive Administered Medications - up to 3 most recent administrations Medication Order MAR Action Action Date Dose Rate Site heparin, porcine (pf) 10 unit/mL IV syringe 50 Units 50 Units, IV, SEE ADMIN INSTRUCTIONS, Starting on Thu09/23/23 at 1417, Until Thu09/24/23 at 0313, Routine Given 09/23/2023 2:20 PM PRECIPITATOR SUPERVISOR 50 Units sodium chloride flush injection 20 mL 20 mL, IV, SEE ADMIN INSTRUCTIONS, Starting on 09/23/23 at 1417, Until Peace 09/24/23 at 0313, Routine Given 09/23/2023 2:20 PM PRECIPITATOR SUPERVISOR 20 mL documented in this encounter Care Teams Iron Bender Relationship Specialty Start Date End Date Shilo Soares MD [address] [place] [address] PCP - General Internal Medicine 04/24/23 documented as of this encounter
--- OUTSIDE RECORDS SUMMARY | 2024-07-26 23:57 | XMS_ITS | Encounter Summary ---
Author Organization [facility] Address [address] [place] [address] Care Team Providers Care Canine Service Teacher Name Role Phone Shilo Soares MD Primary Care Provider [phone] Encounter Details Date Type Department Care Team (Late Contact Info) Description 09/08/2023 External Device Data STL ABSTRACTION Provider, Abstract [...] (Late Contact Info) Description 08/04/2024 1:00 PM SPEAKER WIRER Appointment [facility] 2nd Nv [address] [place] [address] Aviva Humphries MD [address] [place] [address] Infusion Chair 5, 2nd Floor Hall 08/25/2024 1:00 PM SPEAKER WIRER Office Visit [facility] Gynecologic Oncology Hall [address] [place] [address] Edilia Pettit, CHELY [address] [facility] [address] [place] [address] 08/25/2024 1:30 PM SPEAKER WIRER Appointment [facility] 2nd Fl [address] [place] [address] Aviva Humphries MD [address] [place] [address] Infusion Chair 1, 2nd Floor [place] 09/01/2024 10:45 AM SPEAKER WIRER Appointment [facility] Nuclear Medicine [address] [place] [address] [id number] Edilia Pettit, CHELY [address] [facility] [address] [place] [address] documented as of this encounter Visit Diagnoses Not on filedocumented in this encounter Care Teams Canine Service Teacher Relationship Specialty Start Date End Date Shilo Soares MD [address] [place] [address] PCP - General Internal Medicine 04/24/23 documented as of this encounter
--- OUTSIDE RECORDS SUMMARY | 2024-07-26 23:57 | XMS_ITS | Encounter Summary ---
Author Organization [facility] Address [address] [place] [address] Care Team Providers Care Proposal Manager Name Role Phone Shilo Soares MD Primary Care Provider [phone] Reason for Visit * Reason Onset Date Comments Results 08/20/2023 Encounter Details Date Type Department Care Team (Late st Contact Info) Description 08/20/2023 Telephone [facility] Gynecologic Oncology Hall [address] [place] [address] Aviva Humphries MD [address] [facility] [address] [place] [address] Results Social History Tobacco Use Types Packs/Day [...] Telephone Encounter - Nae Harrington RN - 08/20/2023 10:57 AM DIRECTOR MEDICAL AFFAIRS Called pt and let her know Results. She is aware to call with any questions or concerns. ----- Message from Aviva Humphries MD sent at 08/20/2023 10:15 AM DIRECTOR MEDICAL AFFAIRS ----- Please let Narda know that her UA was normal, no evidence of UTI [facility] documented in this encounter Plan of Treatment Upcoming Encounters Date Type Department Care Team (Late st Contact Info) Description 08/04/2024 1:00 PM DIRECTOR MEDICAL AFFAIRS Appointment [facility] Infusion Center [facility] Fl [address] [place] [address] Aviva Humphries MD [address] [facility] [address] [place] [address] Infusion Chair 5, 2nd Floor Hall 08/25/2024 1:00 PM DIRECTOR MEDICAL AFFAIRS Office Visit [facility] Gynecologic Oncology [place] [address] [facility] [address] [place] [address] Edilia Pettit, CHELY [address] [facility] [address] [place] [address] 08/25/2024 1:30 PM DIRECTOR MEDICAL AFFAIRS Appointment Randy Hall [facility] Infusion Center 2nd Fl [address] [place] [address] Aviva Humphries MD [address] [facility] [address] [place] [address] Infusion Chair 1, 2nd Floor Hall 09/01/2024 10:45 AM DIRECTOR MEDICAL AFFAIRS Appointment [facility] Nuclear Medicine [address] [place] [phone] [id number] Edilia Pettit, FABRICATION MANAGER [address] [facility] [address] [place] [address] documented as of this encounter Visit Diagnoses Not on filedocumented in this encounter Care Teams Proposal Manager Relationship Specialty Start Date End Date Shilo Soares MD [address] [place] [address] PCP - General Internal Medicine 04/24/23 documented as of this encounter
--- OUTSIDE RECORDS SUMMARY | 2024-07-26 23:57 | XMS_ITS | Encounter Summary ---
Author Organization [facility] Address [address] [place] [address] Care Team Providers Care Director Of Development And Marketing Name Role Phone Shilo Soares MD Primary Care Provider [phone] Encounter Details Date Type Department Care Team (Late Contact Info) Description 08/12/2023 External Device Data STL ABSTRACTION Provider, Abstract [...] Contact Info) Description 08/04/2024 1:00 PM PRESCHOOL TEACHER'S ASSISTANT Appointment [facility] [address] [place] [address] Aviva Humphries MD [address] [place] [address] Infusion Chair 5, 2nd Floor Hall 08/25/2024 1:00 PM PRESCHOOL TEACHER'S ASSISTANT Office Visit [facility] Gynecologic Oncology Hall [address] [place] [address] Edilia Pettit, CHELY [address] [address] [address] [place] [address] 08/25/2024 1:30 PM PRESCHOOL TEACHER'S ASSISTANT Appointment [facility] 2nd Fl [address] [place] [address] Aviva Humphries MD [address] [facility] [address] [place] [address] Infusion Chair 1, 2nd Floor [place] 09/01/2024 10:45 AM PRESCHOOL TEACHER'S ASSISTANT Appointment [facility] Nuclear Medicine [address] [place] [address] [phone] Edilia Pettit, CHELY [address] [facility] [address] [place] [address] documented as of this encounter Visit Diagnoses Not on filedocumented in this encounter Care Teams Director Of Development And Marketing Relationship Specialty Start Date End Date Shilo Soares MD [address] [place] [address] PCP - General Internal Medicine 04/24/23 documented as of this encounter
--- OUTSIDE RECORDS SUMMARY | 2024-07-26 23:57 | XMS_ITS | Encounter Summary ---
Author Organization [facility] Address [address] [place] [address] Care Team Providers Care Microfilm Equipment Inspector Name Role Phone Shilo Soares MD Primary Care Provider [phone] Reason for Visit * Reason Comments Follow Up Encounter Details Date Type Department Care Team (Late st Contact Info) Description 09/23/2023 3:00 PM BRIDGE TOLL COLLECTOR [facility] Gy[facility]ologic Oncology Hall [address] [place] [address] Aviva Humphries MD [address] [place] [address] Malignant neoplasm of ovary, unspecified [...] Sign Reading Time Taken Comments Blood Pressure 134/83 09/23/2023 2:47 PM BRIDGE TOLL COLLECTOR Pulse 94 09/23/2023 2:47 PM BRIDGE TOLL COLLECTOR Temperature 36.7 ??C (98 ??F) 09/23/2023 2:47 PM BRIDGE TOLL COLLECTOR Respiratory Rate - - Oxygen Saturation 93% 09/23/2023 2:47 PM BRIDGE TOLL COLLECTOR Inhaled Oxygen Concentration - - Weight 47.4 kg (104 lb 6.4 oz) 09/23/2023 2:47 P M BRIDGE TOLL COLLECTOR Height 167.6 cm (5' 6 ) 09/23/2023 2:47 PM BRIDGE TOLL COLLECTOR Body Mass Index 16.85 09/23/2023 2:47 PM BRIDGE TOLL COLLECTOR documented in this encounter Progress Notes * Aviva Humphries MD - 09/23/2023 3:00 PM CST Images from the original note were not included. [facility] GYNECOLOGIC ONCOLOGY OFFICE VISIT 09/23/2023November Eileen Mayen REFERRING PROVIDER: Rober Lacy MD PRIMARY CARE PROVIDER: Shilo Harley MD RETURN PATIENT VISIT Cancer Staging Ovarian cancer Staging form: Ovary, Fallopian Tube, and Primary Peritoneal Carcinoma, AJCC 8th Edition - Clinical stage from 05/13/2023: FIGO Stage IVB - Signed by Aviva Humphries MD on 05/13/2023 Oncology History: 03/2023 presented to [place] ED with abdominal distension; CT showed 11.6cm [...] clearcell carcinoma 09/03/23 resumption of post op chemotherapy Current Therapy: adjuvant chemotherapy: carboplatin AUC5 + paclitaxel 175mg/m2 + bevacizumab 15mg/m2 q21 days Port: Yes, working well NGS: TED IHC: [...] ordered additional work up and referred to obgyn hospitalist physician oncology. CT chest did not show metastatic [...] 104lbs Lab Results Component Value Date/Time CA125 7 09/23/2023 02:18 PM CA125 9 [...] reviewed and are negative. Pertinent imaging studies: 07/21/23 CTCAP (after 3 cycles of chemotherapy) [...] received in five containers each labeled Narda [facility] . Received in the first container additionally [...] show a complete pinpoint, stellate lumen. Senior Chemist sections are submitted in cassettes labeled A1-anterior cervix; A2-anterior polyp, submitted entirely; A3-anterior endomyometrium; A4-posterior cervix; A5-posterior endomyometrium; A6-left ovary; A7-left fallopian tube, fimbria submitted entirely; A8-presumed right fallopian tube, fimbria submitted entirely; A9 through F49-qlghih mass (2 sections in each cassette) with mucinous component in 9-10. Received in the second container additionally labeled omentum are 2 irregular fragments of calhoun-yellow to red-brown lobulated omentum measuring 35.8 x 6 x 2 cm in aggregate. Sections show a calhoun-yellow, fatty cut surface containing multiple pink-cancino firm nodules measuring up to 1.8 cm in greatest dimension. Senior Chemist sections are submitted in cassettes labeled B1 [...] SMB MICROSCOPIC DESCRIPTION The slides are labeled [id number] and November. Sections of the salpingo-oophorectomy (A) [...] heterogeneity, focal positivity for ER, and rare WI positivity. Negative staining is observed for WT1 and CK20. Although weak patchy positivity for AMACR and Napsin A,and focal positivity for ER and rare WI positivity are unusual for clear cell carcinoma, [...] Component FINAL DIAGNOSIS [place] [address] (OSC [id number]; 04/29/2023 and [id number]; 05/06/2023) [id number] Ascites fluid, cytologic examination: - CK7 positive adenocarcinoma. 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 See comment. at 1237 MICROSCOPIC DESCRIPTION Received are slides labeled [id number] and [id number] and NovemberKarely Mayen. Microscopic examination of the [...] origin. Sections of the lymph node biopsy ([id number]) show cores of lymph node involved by [...] CYSTOURETHROSCOPY performed by Aviva Humphries MD at [facility] OR [facility] HX BLADDER REPAIR N/A 08/06/2023 BLADDER REPAIR performed by Aviva Humphries MD at [facility] OR [facility] HX BUNIONECTOMY Bilateral 2009 HX SECTION 1982,1985,1994 HX PORTACATH PLACEMENT Right 2022 HX URETEROLYSIS Bilateral 08/06/2023 URETEROLYSIS performed by Aviva Humphries MD at [facility] OR [facility] WI BX/EXC LYMPH NODE OPEN SUPERFICIAL Right 08/06/2023 INGUINAL OR FEMORAL LYMPH NODE BIOPSY/EXCISION performed by Aviva Humphries MD at [facility] OR [facility] WI LAPAROSCOPY W/RMVL ADNEXAL STRUCTURES N/A 08/06/2023 SALPINGO-OOPHORECTOMY LAPAROSCOPIC performed by Aviva Humphries MD at [facility] OR MAIN WI OMNTC EPIPLOECTOMY RESCJ OMENTUM SPX N/A 08/06/2023 OMENTECTOMY performed by Aviva Humphries MD at [facility] OR MAIN WI TOTAL ABDOMINAL HYSTERECT W/WO RMVL TUBE OVARY N/A 08/06/2023 HYSTERECTOMY ABDOMINAL TOTAL performed by Aviva Humphries MD at [facility] OR MAIN WI UNLISTED PROCEDURE DIAPHRAGM N/A 08/06/2023 DIAPHRAGM BIOPSY performed by Aviva Humphries MD at [facility] OR MAIN Allergies Allergen Reactions Penicillins Rash Ciprofloxacin Rash Current Outpatient Medications: loratadine (CLARITIN) 10 mg tablet, Take 10 [...] for Nausea/Emesis., Disp: 30 Tablet, Rfl: 3 lidocaine-prilocaine (EMLA) 2.5-2.5 % Cream, Apply a thin layer over port site 30-45 minutes prior to chemotherapy., Disp: 30 Gram, Rfl: 0 albuterol sulfate HFA 90 mcg/actuation aerosol inhaler, Take 1 Puff by inhalation every 6 hours as needed., Disp: , Rfl: atorvastatin (LIPITOR) 20 mg tablet, Take 20 mg by mouth daily at bedtime., Disp: , Rfl: fluticasone propionate (FLONASE) 50 mcg/spray [place], Suspension nasal inhaler, Administer 2 Sprays in [...] No obstetric history on file. ; x3 FINANCIAL SALES ASSOCIATE HISTORY: Abnml Pap: denies Menopause: 54ish; no bleeding Social: Social History Tobacco Use Smoking Status Every Day Current packs/day: 0.50 Average packs/day: 0.5 packs/day for 35.0 years (17.5 ttl pk-yrs) Types: Cigarettes Smokeless Tobacco Never TOBACCO COUNSELING She was counseled to discontinue tobacco/nicotine use. Down to half pack per day. 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 BP 134/83 (BP Location: Right arm, Patient Position (BP): Sitting, BP Cuff Size: Small Adult) Pulse 94 Temp 98 ??F (36.7 ??C) (Oral) Ht 5' 6 (1.676 m) Wt 47.4 kg (104 lb 6.4 oz) LMP (LMP Unknown) SpO2 93% BMI 16.85 kg/m?? ECOG PS: 0 HEAD: Normocephalic, atraumatic. [...] septum clear, normal anal opening SPECULUM: cuff appears intact, normal vaginal mucosa, thin brown discharge VAGINA: normal vaginal mucosa, no lesions, cuff palpates smooth small separation at L angle <1cmin size CERVIX: absent UTERUS: absent ADNEXA: no tenderness no palpable masses PRESCRIPTIONS WRITTEN THIS VISIT: Requested Prescriptions No prescriptions requested or ordered in this encounter ASSESSMENT and PLAN: 1. Malignant neoplasm of ovary, unspecified laterality 2. 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 She has completed 3 cycles of NACT with carbo/taxol/sima (held with cycle 3). She has undergone interval cytoreductive surgery to no gross residual disease. She has resumed post-operative chemotherapy and is here today prior to cycle #5. Toxicity profile reviewed and all lab work reviewed. Acceptable for treatment with cycle #5. Will add bevacizumab back into treatment plan. TEMPUS and genetic testing results reviewed. Will plan to complete total of 6 cycles of chemotherapy. Will then bring her back ~1 month after completion of treatment with scan and labs. Will plan to initiate maintenance therapy at that time. She is HRD positive. Will plan to continue bevacizumab infusions q21 days and initiate olaparib. This was discussed today and she is in agreement. Return to clinic: 1 month following completion of chemotherapy with labs and scan; will initiate maintenance therapy at that time Thank you for involving [facility] Gynecologic Oncology in the care of this patient. Aviva Humphries MD GE TOLL COLLECTOR documented in this encounter Plan of Treatment Upcoming Encounters Date Type Department Care Team (Late st Contact Info) Description 08/04/2024 1:00 PM BRIDGE TOLL COLLECTOR Appointment [facility] 2nd Ca [address] [place] [address] Aviva Humphries MD [address] [place] [address] Infusion Chair 5, 2nd Floor [place] 08/25/2024 1:00 PM BRIDGE TOLL COLLECTOR [facility] Gynecologic Oncology [place] [address] [place] [address] Edilia Pettit NP [address] [place] [address] 08/25/2024 1:30 PM BRIDGE TOLL COLLECTOR Appointment [facility] Infusion Center 2nd Fl [address] [place] [address] Aviva Humphries MD [address] [facility] [address] [place] [address] Infusion Chair 1, 2nd Floor [place] 09/01/2024 10:45 AM BRIDGE TOLL COLLECTOR Appointment [facility] Nuclear Medicine [address] [place] [phone] [id number] Edilia Pettit NP [address] [facility] [address] [place] [address] documented as of this encounter Visit Diagnoses Diagnosis Malignant neoplasm of ovary, unspecified laterality- Primary Chemotherapy follow-up examination documented in this encounter Care Teams Microfilm Equipment Inspector Relationship Specialty Start Date End Date Shilo Soares MD [address] [place] [address] PCP - General Internal Medicine 04/24/23 documented as of this encounter
--- OUTSIDE RECORDS SUMMARY | 2024-07-26 23:57 | XMS_ITS | Encounter Summary ---
Author Organization [facility] Address [address] [place] [address] Care Team Providers Care Tube Coater Name Role Phone Shilo Soares MD Primary Care Provider [phone] Encounter Details Date Type Department Care Team (Late Contact Info) Description 09/10/2023 External Device Data STL ABSTRACTION Provider, Abstract [...] Contact Info) Description 08/04/2024 1:00 PM RETAIL CHAIN STORE AREA SUPERVISOR Appointment [facility] 2nd Ca [address] [place] [address] Aviva Humphries MD [address] [place] [address] Infusion Chair 5, 2nd Floor [place] 08/25/2024 1:00 PM RETAIL CHAIN STORE AREA SUPERVISOR Office Visit [facility] Gynecologic Oncology Hall [address] [place] [address] Edilia Pettit, CHELY [address] [facility] [address] [place] [address] 08/25/2024 1:30 PM RETAIL CHAIN STORE AREA SUPERVISOR Appointment [facility] 2nd Fl [address] [place] [address] Aviva Humphries MD [address] [facility] [address] [place] [address] Infusion Chair 1, 2nd Floor [place] 09/01/2024 10:45 AM RETAIL CHAIN STORE AREA SUPERVISOR Appointment [facility] Nuclear Medicine [address] [place] [address] [id number] Edilia Pettit, CHELY [address] [facility] [address] [place] [address] documented as of this encounter Visit Diagnoses Not on filedocumented in this encounter Care Teams Tube Coater Relationship Specialty Start Date End Date Shilo Soares MD [address] [place] [address] PCP - General Internal Medicine 04/24/23 documented as of this encounter
--- OUTSIDE RECORDS SUMMARY | 2024-07-26 23:57 | XMS_ITS | Encounter Summary ---
Author Organization [facility] Address [address] [place] [address] Care Team Providers Care Academic Vice President Name Role Phone Shilo Soares MD Primary Care Provider [phone] Encounter Details Date Type Department Care Team (Late Contact Info) Description 09/15/2023 External Device Data STL ABSTRACTION Provider, Abstract [...] (Late Contact Info) Description 08/04/2024 1:00 PM MILITARY PAY TECHNICIAN Appointment [facility] 2nd Pr [address] [place] [address] Aviva Humphries MD [address] [place] [address] Infusion Chair 5, 2nd Floor Hall 08/25/2024 1:00 PM MILITARY PAY TECHNICIAN Office Visit [facility] Gynecologic Oncology Hall [address] [place] [address] Edilia Pettit, CHELY [address] [place] [address] 08/25/2024 1:30 PM MILITARY PAY TECHNICIAN Appointment [facility] 2nd Fl [address] [place] [address] Aviva Humphries MD [address] [place] [address] Infusion Chair 1, 2nd Floor [place] 09/01/2024 10:45 AM MILITARY PAY TECHNICIAN Appointment [facility] Nuclear Medicine [address] [place] [address] [id number] Edilia Pettit, CHELY [address] [facility] [address] [place] [address] documented as of this encounter Visit Diagnoses Not on filedocumented in this encounter Care Teams Academic Vice President Relationship Specialty Start Date End Date Shilo Soares MD [address] [place] [address] PCP - General Internal Medicine 04/24/23 documented as of this encounter
--- OUTSIDE RECORDS SUMMARY | 2024-07-26 23:57 | XMS_ITS | Encounter Summary ---
Author Organization [facility] Address [address] [place] [address] Care Team Providers Care Lecturer In Computer Science Name Role Phone Shilo Soares MD Primary Care Provider [phone] Reason for Visit * Reason Onset Date Comments Results 08/17/2023 Encounter Details Date Type Department Care Team (Late st Contact Info) Description 08/17/2023 Telephone [facility] Gynecologic Oncology Hall [address] [place] [address] Aviva Humphries MD [address] [facility] [address] [place] [address] Results Social History Tobacco Use [...] Telephone Encounter - Nae Harrington RN - 08/17/2023 3:14 PM CST Called pt and let her know the below information. Chemo appt made for 09/03. Pt voiced understanding. ----- Message from Aviva Humphries MD sent at 08/17/2023 2:08 PM OUTDOOR ADVENTURE INSTRUCTOR ----- Please tell Narda that I have reviewed her pathology. The report is as expected and I did remove all visible tumor. I will see her back at her post op visit and would like to get started back on chemotherapy 3-4 weeks after surgery if she is up for it. OOR ADVENTURE INSTRUCTOR documented in this encounter Plan of Treatment Upcoming Encounters Date Type Department Care Team (Late st Contact Info) Description 08/04/2024 1:00 PM OUTDOOR ADVENTURE INSTRUCTOR Appointment [facility] Infusion Center [facility] [address] [place] [address] Aviva Humphries MD [address] [facility] [address] [place] [address] Infusion Chair 5, 2nd Floor [place] 08/25/2024 1:00 PM OUTDOOR ADVENTURE INSTRUCTOR Office Visit [facility] Gynecologic Oncology [place] [address] [facility] [address] [place] [address] Edilia Pettit NP [address] [place] [address] 08/25/2024 1:30 PM OUTDOOR ADVENTURE INSTRUCTOR Appointment [facility] Infusion Center [facility] Fl [address] [place] [address] Aviva Humphries MD [address] [facility] [address] [place] [address] Infusion Chair 1, 2nd Floor [place] 09/01/2024 10:45 AM OUTDOOR ADVENTURE INSTRUCTOR Appointment [facility] Nuclear Medicine [address] [place] [address] [id number] Edilia Pettit NP [address] [place] [address] documented as of this encounter Visit Diagnoses Not on filedocumented in this encounter Care Teams Lecturer In Computer Science Relationship Specialty Start Date End Date Shilo Soares MD [address] [place] [address] PCP - General Internal Medicine 04/24/23 documented as of this encounter
--- OUTSIDE RECORDS SUMMARY | 2024-07-26 23:57 | XMS_ITS | Encounter Summary ---
Author Organization [facility] Address [address] [place] [address] Care Team Providers Care Billing Typist Name Role Phone Shilo Soares MD Primary Care Provider [phone] Encounter Details Date Type Department Care Team (Late Contact Info) Description 09/05/2023 External Device Data STL ABSTRACTION Provider, Abstract [...] Contact Info) Description 08/04/2024 1:00 PM BUSINESS MACHINES TEACHER Appointment [facility] 2nd De [address] [place] [address] Aviva Humphries MD [address] [place] [address] Infusion Chair 5, 2nd Floor [place] 08/25/2024 1:00 PM BUSINESS MACHINES TEACHER Office Visit [facility] Gynecologic Oncology Hall [address] [place] [address] Edilia Pettit, CHELY [address] [facility] [address] [place] [address] 08/25/2024 1:30 PM BUSINESS MACHINES TEACHER Appointment [facility] 2nd Fl [address] [place] [address] Aviva Humphries MD [address] [facility] [address] [place] [address] Infusion Chair 1, 2nd Floor [place] 09/01/2024 10:45 AM BUSINESS MACHINES TEACHER Appointment [facility] Nuclear Medicine [address] [place] [address] [id number] Edilia Pettit, CHELY [address] [facility] [address] [place] [address] documented as of this encounter Visit Diagnoses Not on filedocumented in this encounter Care Teams Billing Typist Relationship Specialty Start Date End Date Shilo Soares MD [address] [place] [address] PCP - General Internal Medicine 04/24/23 documented as of this encounter
--- OUTSIDE RECORDS SUMMARY | 2024-07-26 23:57 | XMS_ITS | Encounter Summary ---
Author Organization [facility] Address [address] [place] [address] Care Team Providers Care Clinical Documentation Clerk Name Role Phone Shilo Soares MD Primary Care Provider [phone] Reason for Visit * Reason Comments Post-op Visit Encounter Details Date Type Department Care Team (Late st Contact Info) Description 08/19/2023 1:00 PM COUNSELING PSYCHOLOGIST Office Visit [facility] Gynecologic Oncology Hall [address] [place] [address] Aviva Humphries MD [address] [place] [address] Malignant neoplasm of ovary, unspecified laterality (Primary Dx); Postoperative follow-up Social History Tobacco Use Types Packs/Day Years [...] Sign Reading Time Taken Comments Blood Pressure 118/76 08/19/2023 12:47 PM COUNSELING PSYCHOLOGIST Pulse 89 08/19/2023 12:47 PM COUNSELING PSYCHOLOGIST Temperature 36.7 ??C (98 ??F) 08/19/2023 12:47 PM COUNSELING PSYCHOLOGIST Respiratory Rate - - Oxygen Saturation 97% 08/19/2023 12:47 PM COUNSELING PSYCHOLOGIST Inhaled Oxygen Concentration - - Weight 45 kg (99 lb 3.2 oz) 08/19/2023 12:47 PM COUNSELING PSYCHOLOGIST Height 167.6 cm (5' 6 ) 08/19/2023 12:47 PM COUNSELING PSYCHOLOGIST Body Mass Index 16.01 08/19/2023 12:47 PM COUNSELING PSYCHOLOGIST documented in this encounter Progress Notes * Aviva Humphries MD - 08/19/2023 1:09 PM CST Images from the original note were not included. [facility] GYNECOLOGIC ONCOLOGY OFFICE VISIT 08/19/2023November Eileen Tiarra REFERRING PROVIDER: Dr. Barnard ref. provider found PRIMARY CARE PROVIDER: Shilo Harley MD RETURN PATIENT VISIT Cancer Staging Ovarian cancer Staging form: Ovary, Fallopian Tube, and Primary Peritoneal Carcinoma, AJCC 8th Edition - Clinical stage from 05/13/2023: FIGO Stage IVB - Signed by Aviva Humphries MD on 05/13/2023 Oncology History: 03/2023 presented to [place] ED with abdominal distension; CT showed 11.6cm [...] gross resection; final pathology with clearcell carcinoma Current Therapy: s/p IDS; plan to resume chemotherapy in coming weeks Port: Yes, working well NGS: to be ordered IHC: not applicable Genetics: appointment done; awaiting results Last exam: 07/22/23 Code Status/AD: not addressed [...] stomach wall. She was sen by Dr. oRdgers in Medical Oncologyhon 04/29/23 who ordered additional work up and referred to core laying machine operator oncology. CT chest did not show metastatic disease. CA-125 was performed at elevated at 751. 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 She was started on NACT with carbo/taxol/sima as noted above. She underwent surgical debulking with me as noted above. She presents today for post op follow up. Recovering well from surgery. Has put on some weight since discharge from the hospital. Does have loose stool in the AM which causes some nausea, improves throughout the morning. Occasional pain with urination. No bleeding. Incisions healing well. Weight trend 05/13/23 113 lbs 07/22/23 101 lbs 08/19/23 99lbs (96lbs at discharge) Lab Results Component Value Date/Time CA125 32 07/09/2023 09:01 AM CA125 57 (H) 06/18/2023 08:16 AM CA125 304.0 (H) 05/28/2023 07:30 AM Review of Systems Constitutional: Positive for weight loss. Negative for fever and malaise/fatigue. Respiratory: Negative for cough and shortness of breath. Cardiovascular: Negative for chest pain, palpitations and leg swelling. Gastrointestinal: Positive for nausea. Negative for abdominal pain, constipation, diarrhea, heartburn and vomiting. Genitourinary: Negative for dysuria, frequency [...] to show a complete pinpoint, stellate lumen. Studio Assistant sections are submitted in cassettes labeled A1-anterior cervix; A2-anterior polyp, submitted entirely; A3-anterior endomyometrium; A4-posterior cervix; A5-posterior endomyometrium; A6-left ovary; A7-left fallopian tube, fimbria submitted entirely; A8-presumed right fallopian tube, fimbria submitted entirely; A9 through T18-yupgyc mass (2 sections in each cassette) with mucinous component in 9-10. Received in the second container additionally labeled omentum are 2 irregular fragments of calhoun-yellow to red-brown lobulated omentum measuring 35.8 x 6 x 2 cm in aggregate. Sections show a calhoun-yellow, fatty cut surface containing multiple pink-cancino firm nodules measuring up to 1.8 cm in greatest dimension. Studio Assistant sections are submitted in cassettes labeled [...] SMB MICROSCOPIC DESCRIPTION The slides are labeled [id number] and Tiarranovember. Sections of the salpingo-oophorectomy (A) [...] heterogeneity, focal positivity for ER, and rare TX positivity. Negative staining is observed for WT1 and CK20. Although weak patchy positivity for AMACR and Napsin A,and focal positivity for ER and rare TX positivity are unusual for clear cell carcinoma, [...] Component FINAL DIAGNOSIS [place] [address] (OSC [id number]; 04/29/2023 and [id number]; 05/06/2023) [id number] Ascites fluid, cytologic examination: - CK7 positive adenocarcinoma. [id number] Lymph node, right inguinal, biopsy: - Metastatic carcinoma most compatible with high-grade serous carcinoma. See comment. at 1237 MICROSCOPIC DESCRIPTION Received are slides labeled [id number] and [id number] and NovemberKarely Mayen. Microscopic examination of the [...] origin. Sections of the lymph node biopsy ([id number]) show cores of lymph node involved by [...] CYSTOURETHROSCOPY performed by Aviva Humphries MD at [facility] OR [facility] HX BLADDER REPAIR N/A 08/06/2023 BLADDER REPAIR performed by Aviva Humphries MD at [facility] OR [facility] HX BUNIONECTOMY Bilateral 2009 HX SECTION 1982,1985,1994 HX PORTACATH PLACEMENT Right 2022 HX URETEROLYSIS Bilateral 08/06/2023 URETEROLYSIS performed by Aviva Humphries MD at [facility] OR [facility] TX BX/EXC LYMPH NODE OPEN SUPERFICIAL Right 08/06/2023 INGUINAL OR FEMORAL LYMPH NODE BIOPSY/EXCISION performed by Aviva Humphries MD at [facility] OR [facility] TX LAPAROSCOPY W/RMVL ADNEXAL STRUCTURES N/A 08/06/2023 SALPINGO-OOPHORECTOMY LAPAROSCOPIC performed by Aviva Humphries MD at [facility] OR [facility] TX OMNTC EPIPLOECTOMY RESCJ OMENTUM SPX N/A 08/06/2023 OMENTECTOMY performed by Aviva Humphries MD at [facility] OR [facility] TX TOTAL ABDOMINAL HYSTERECT W/WO RMVL TUBE OVARY N/A 08/06/2023 HYSTERECTOMY ABDOMINAL TOTAL performed by Aviva Humphries MD at [facility] OR [facility] TX UNLISTED PROCEDURE DIAPHRAGM N/A 08/06/2023 DIAPHRAGM BIOPSY performed by Aviva Humphries MD at [facility] Allergies Allergen Reactions Penicillins Rash Ciprofloxacin Rash Current Outpatient Medications: apixaban (ELIQUIS) 2.5 mg tablet, Take 1 Tablet (2.5 mg) by mouth 2 times daily for 21 days., Disp:42 Tablet, Rfl: 0 loratadine (CLARITIN) 10 mg tablet, [...] , Rfl: fluticasone propionate (FLONASE) 50 mcg/spray [place], Suspension nasal inhaler, Administer 2 Sprays in [...] No obstetric history on file. 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 Down to half pack per day. 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 BP 118/76 (BP Location: Left arm, Patient Position (BP): Sitting, BP Cuff Size: Adult) Pulse 89 Temp 98 ??F (36.7 ??C) (Oral) Ht 5' 6 (1.676 m) Wt 45 kg (99 lb 3.2 oz) LMP (LMP Unknown) SpO2 97% BMI 16.01 kg/m?? ECOG PS: 0 HEAD: Normocephalic, atraumatic. [...] anal opening VAGINA: normal vaginal mucosa, no lesions, cuff palpates smooth and intact, suture line still present CERVIX: absent UTERUS: absent ADNEXA: no tenderness no palpable masses PRESCRIPTIONS WRITTEN THIS VISIT: Requested Prescriptions No prescriptions requested or ordered in this encounter ASSESSMENT and PLAN: 1. 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 She has completed 3 cycles of NACT with carbo/taxol/sima (held with cycle 3). She has undergone interval cytoreductive surgery to no gross residual disease. She is here today for a post op visit and discussion of re-starting treatment. We reviewed her pathology findings in detail. She is recovering well from surgery. Her physical exam is within normal limits for a post-op patient. She may continue to slowly resume all normal activities. Instructed to remove remaining skin glue in the shower. Nothing in the vagina for 8w following surgery. TEMPUS to be sent off Will f/u genetic testing results Plan to resume chemotherapy 09/03/22; will hold bevacizumab with this cycle--add back for remaining cycles Briefly mentioned maintenance therapy following completion of systemic chemotherapy. Will need molecular/genetic testing results back. Return to clinic: with cycle #5 Thank you for involving [facility] Gynecologic Oncology in the care of this patient. Aviva Humphries MD SELING PSYCHOLOGIST documented in this encounter Plan of Treatment Upcoming Encounters Date Type Department Care Team (Late st Contact Info) Description 08/04/2024 1:00 PM COUNSELING PSYCHOLOGIST Appointment [facility] Infusion Center 2nd Fl [address] [place] [address] Aviva Humphries MD [address] [facility] [address] [place] [address] Infusion Chair 5, 2nd Floor Hall 08/25/2024 1:00 PM COUNSELING PSYCHOLOGIST Office Visit [facility] Gynecologic Oncology Hall [address] [facility] [address] [place] [phone] Edilia Pettit NP [address] [place] [address] 08/25/2024 1:30 PM COUNSELING PSYCHOLOGIST Appointment [facility] Infusion Center 2nd Fl [address] [place] [address] Aviva Humphries MD [address] [facility] [address] [place] [address] Infusion Chair 1, 2nd Floor Hall 09/01/2024 10:45 AM COUNSELING PSYCHOLOGIST Appointment [facility] Nuclear Medicine [address] [place] [address] [phone] Edilia Pettit, CHELY [address] [place] [phone] Pending Results Name Type Priority Associated Diagnoses Date /Time TEMPUS XT Lab Routine Malignant neoplasm of ovary, unspecified laterality 08/19/2023 1:29 PM COUNSELING PSYCHOLOGIST Scheduled Orders Name Type Priority Associated Diagnoses Orde r Schedule TEMPUS XT Lab Routine Malignant neoplasm of ovary, unspecified laterality Expected: 08/19/2023, Expires: 08/19/2024 [facility] NORMAL BLOOD Lab Routine Malignant neoplasm of ovary, unspecified laterality Ordered: 08/19/2023 documented as of this encounter Procedures Procedure Name Priority Date/Time Associated Diagnosis Comments [facility] NGS REPORT Routine 08/19/2023 1:29 PM COUNSELING PSYCHOLOGIST Malignant neoplasm of ovary, unspecified laterality documented in this encounter Results * URINALYSIS WITH REFLEX CULTURE (08/19/2023 1:35 PM COUNSELING PSYCHOLOGIST) COLOR UA YELLOW YELLOW [facility] CLARITY UA CLEAR CLEAR [facility] SPECIFIC GRAVITY UA 1.005 1.001 - 1.035 [facility] PH UA 5.5 5.0 - 8.0 [facility] GLUCOSE UA NEGATIVE NEGATIVE [facility] BILIRUBIN UA NEGATIVE NEGATIVE [facility] KETONES UA NEGATIVE NEGATIVE [facility] BLOOD UA NEGATIVE NEGATIVE [facility] PROTEIN UA NEGATIVE NEGATIVE [facility] NITRITE UA NEGATIVE NEGATIVE [facility] LEUKOCYTE ESTERASE UA NEGATIVE NEGATIVE [facility] WBC UA NONE SEEN < OR = 5 /HPF [facility] RBC UA NONE SEEN < OR = 2 /HPF [facility] EPITHELIAL CELLS, URINE NONE SEEN < OR = 5 /HPF [facility] BACTERIA UA NONE SEEN NONE SEEN /HPF [facility] HYALINE CAST NONE SEEN NONE SEEN /LPF [facility] URINE NOTE [facility] Comment: This urine was analyzed for the presence of WBC, RBC, bacteria, casts, and other formed elements. Only those elements seen were reported. URINE CULTURE [facility] Comment: NO CULTURE INDICATED Test Performed at: [place] [address] [address]otom[place]or ??[phone] Radha Perez Urine URINE SPECIMEN OBTAINED BY CLEAN CATCH PROCEDURE / Unknown 08/19/2023 1:35 PM COUNSELING PSYCHOLOGIST 08/19/2023 2:08 PM COUNSELING PSYCHOLOGIST Aviva Humphries MD URINE ORDERABLES [facility] [phone] [facility] [address] [address] [place] [phone] * [facility] NGS REPORT (08/19/2023 1:29 PM COUNSELING PSYCHOLOGIST) Reason for Study To identify somatic and germline mutations relevant to patient's cancer. 09/01/2023 11:15 AM COUNSELING PSYCHOLOGIST [facility] Genetic Diseases Assessed Cancer 09/01/2023 11:15 AM COUNSELING PSYCHOLOGIST [facility] Description of Ranges of DNA Sequences Examined 648 gene panel 09/01/2023 11:15 AM COUNSELING PSYCHOLOGIST [facility] Overall Interpretation positive 09/01/2023 11:15 AM COUNSELING PSYCHOLOGIST [facility] MSI Stable 09/01/2023 11:15 AM COUNSELING PSYCHOLOGIST [facility] TMB 1.6 m/MB 09/01/2023 11:15 AM COUNSELING PSYCHOLOGIST [facility] [email or web address] 09/01/2023 11:15 AM COUNSELING PSYCHOLOGIST [facility] Comment:[facility] link PD-L1 (22C3) Combined Positive Score 3 09/01/2023 11:15 AM COUNSELING PSYCHOLOGIST [facility] PD-L1 (22C3) Tumor Proportion Score <1 % 09/01/2023 11:15 AM COUNSELING PSYCHOLOGIST [facility] Genome-wide DESIRAE 32.9 % 11:15 AM COUNSELING PSYCHOLOGIST [facility] Cohort Specific Genome-wide DESIRAE Threshold 17 % 09/01/2023 11:15 AM COUNSELING PSYCHOLOGIST [facility] HRD Interpretation Positive 09/01/2023 11:15 AM COUNSELING PSYCHOLOGIST [facility] HRD Analysis Type DNA 024 11:15 AM COUNSELING PSYCHOLOGIST [facility] Fusion Addendum Issue Type NEGATIVE Negative - This addendum is being issued to report that no gene fusions or altered splicing variants from RNA sequencing analysis were found. 09/01/2023 11:15 AM COUNSELING PSYCHOLOGIST [facility] Low Coverage Regions [id number] 09/01/2023 11:15 AM COUNSELING PSYCHOLOGIST [facility] Therapy Count 11 09/01/2023 11:15 AM COUNSELING PSYCHOLOGIST [facility]: Potential Therapy 1 Gene: 3430^ERBB2^HGNC Variant: Copy number gain Agent: Ado-Trastuzumab Emtansine Tissue: Breast Cancer Association: response Evidence Status: Consensus Evidence ID: NCCN Evidence URL: FDA Approved?: Yes on label?: No 09/01/2023 11:15 AM COUNSELING PSYCHOLOGIST [facility]: Potential Therapy 2 Gene: 3430^ERBB2^HGNC Variant: Copy number gain Agent: Margetuximab-cmkb Tissue: Breast Cancer Association: response Evidence Status: Consensus Evidence ID: NCCN Evidence URL: FDA Approved?: Yes on label?: No 09/01/2023 11:15 AM COUNSELING PSYCHOLOGIST [facility]: Potential Therapy 3 Gene: 3430^ERBB2^HGNC Variant: Copy number gain Agent: Trastuzumab Tissue: Breast Cancer Association: response Evidence Status: Consensus Evidence ID: NCCN Evidence URL: FDA Approved?: Yes on label?: No 09/01/2023 11:15 AM COUNSELING PSYCHOLOGIST [facility]: Potential Therapy 4 Gene: 3430^ERBB2^HGNC Variant: Copy number gain Agent: Capecitabine + Neratinib Tissue: Breast Cancer Association: response Evidence Status: Consensus Evidence ID: NCCN Evidence URL: FDA Approved?: Yes on label?: No 09/01/2023 11:15 AM COUNSELING PSYCHOLOGIST [facility]: Potential Therapy 5 Gene: 3430^ERBB2^HGNC Variant: Copy number gain Agent: Capecitabine + Trastuzumab + Tucatinib Tissue: Breast Cancer Association: response Evidence Status: Consensus Evidence ID: NCCN Evidence URL: FDA Approved?: Yes on label?: No 09/01/2023 11:15 AM COUNSELING PSYCHOLOGIST [facility]: Potential Therapy 6 Gene: 3430^ERBB2^HGNC Variant: Copy number gain Agent: Lapatinib + Capecitabine Tissue: Breast Cancer Association: response Evidence Status: Consensus Evidence ID: NCCN Evidence URL: FDA Approved?: Yes on label?: No 09/01/2023 11:15 AM COUNSELING PSYCHOLOGIST [facility]: Potential Therapy 7 Gene: 3430^ERBB2^HGNC Variant: Copy number gain Agent: Neratinib Tissue: Breast Cancer Association: response Evidence Status: Consensus Evidence ID: NCCN Evidence URL: FDA Approved?: Yes on label?: No 09/01/2023 11:15 AM COUNSELING PSYCHOLOGIST [facility]: Potential Therapy 8 Gene: 3430^ERBB2^HGNC Variant: Copy number gain Agent: Trastuzumab + Paclitaxel + Carboplatin Tissue: Uterine Serous Carcinoma Association: response Evidence Status: Consensus Evidence ID: NCCN Evidence URL: FDA Approved?: Yes on label?: No 09/01/2023 11:15 AM COUNSELING PSYCHOLOGIST [facility]: Potential Therapy 9 Gene: 3430^ERBB2^HGNC Variant: Copy number gain Agent: Trastuzumab + Pembrolizumab Tissue: Gastric Adenocarcinoma Association: response Evidence Status: Consensus Evidence ID: NCCN Evidence URL: FDA Approved?: Yes on label?: No 09/01/2023 11:15 AM COUNSELING PSYCHOLOGIST [facility]: Potential Therapy 10 Gene: 3430^ERBB2^HGNC Variant: Copy number gain Agent: Trastuzumab + Pertuzumab Tissue: Breast Cancer Association: response Evidence Status: Consensus Evidence ID: NCCN Evidence URL: FDA Approved?: Yes on label?: No 09/01/2023 11:15 AM COUNSELING PSYCHOLOGIST [facility]: Potential Therapy 11 Gene: 3430^ERBB2^HGNC Variant: Copy number gain Agent: Trastuzumab Deruxtecan Tissue: Breast Cancer Association: response Evidence Status: Consensus Evidence ID: NCCN Evidence URL: FDA Approved?: Yes on label?: No 09/01/2023 11:15 AM COUNSELING PSYCHOLOGIST [facility] Trial Count 3 09/01/2023 11:15 AM COUNSELING PSYCHOLOGIST [facility]: Clinical Trial Match 1 Clinical Trial NCT ID: [id number] Clinical Trial Title: A Study of DB-1303 in Advanced/Metastat ic Solid Tumors Clinical Trial URL: [email or web address] Clinical Phase: Phase 1/Phase 2 Matched criteria: ERBB2 (HER2) amplification 09/01/2023 11:15 AM COUNSELING PSYCHOLOGIST [facility]: Clinical Trial Match 2 Clinical Trial NCT ID: [id number] Clinical Trial Title: A Study of BTX-A51 in People With Advanced Solid Tumor or Non-Hodgkin Lymphoma Clinical Trial URL: [email or web address]://clinicalt [facility].gov/ct2/ashtyn w/[email or web address] Clinical Phase: Phase 1 Matched criteria: MYC amplification 09/01/2023 11:15 AM COUNSELING PSYCHOLOGIST [facility]: Clinical Trial Match 3 Clinical Trial NCT ID: [id number] Clinical Trial Title: Study Of ATRN-119 In Patients With Advanced Solid Tumors Clinical Trial URL: [email or web address]://clinicalt [facility].gov/ct2/ashtyn w/[email or web address] Clinical Phase: Phase 1/Phase 2 Matched criteria: TP53 p.M237I mutation 09/01/2023 11:15 AM COUNSELING PSYCHOLOGIST [facility] Tissue 08/19/2023 1:29 PM COUNSELING PSYCHOLOGIST 08/19/2023 1:29 PM COUNSELING PSYCHOLOGIST Narrative This result has genomic variants that were not included in this document. Aviva Humphries MD MOLECULAR ORDERABLES [facility] [address] [facility], [address] [place] [address], documented in this encounter Visit Diagnoses Diagnosis Malignant neoplasm of ovary, unspecified laterality- Primary Postoperative follow-up Follow-up examination, following unspecified surgery documented in this encounter Care Teams Clinical Documentation Clerk Relationship Specialty Start Date End Date Shilo Soares MD [address] [place] [phone] PCP - General Internal Medicine 04/24/23 documented as of this encounter
--- OUTSIDE RECORDS SUMMARY | 2024-07-26 23:57 | XMS_ITS | Encounter Summary ---
Author Organization [facility] Address [address] [place] [address] Care Team Providers Care Battery Checker Name Role Phone Shilo Soares MD Primary Care Provider [phone] Encounter Details Date Type Department Care Team (Late Contact Info) Description 09/12/2023 External Device Data STL ABSTRACTION Provider, Abstract [...] (Late Contact Info) Description 08/04/2024 1:00 PM STONEMASON APPRENTICE Appointment [facility] Infusion Center 2nd Ca [address] [place] [address] Aviva Humphries MD [address] [place] [address] Infusion Chair 5, 2nd Floor Hall 08/25/2024 1:00 PM STONEMASON APPRENTICE Office Visit [facility] Gynecologic Oncology Hall [address] [place] [address] Edilia Pettit, CHELY [address] [address] [place] [phone] 08/25/2024 1:30 PM STONEMASON APPRENTICE Appointment [facility] Infusion Center 2nd Fl [address] [place] [address] Aviva Humphries MD [address] [facility] [facility] [address] [place] [address] Infusion Chair 1, 2nd Floor [place] 09/01/2024 10:45 AM STONEMASON APPRENTICE Appointment [facility] Nuclear Medicine [address] [place] [phone] Edilia Pettit, CHELY [address] [facility] [address] [place] [phone] documented as of this encounter Visit Diagnoses Not on filedocumented in this encounter Care Teams Battery Checker Relationship Specialty Start Date End Date Shilo Soares MD [address] [place] [phone] PCP - General Internal Medicine 04/24/23 documented as of this encounter
--- OUTSIDE RECORDS SUMMARY | 2024-07-26 23:57 | XMS_ITS | Encounter Summary ---
Author Organization [facility] Address [address] [place] [address] Care Team Providers Care Forest Fire Management Officer Name Role Phone Shilo Soares MD Primary Care Provider [phone] Encounter Details Date Type Department Care Team (Late Contact Info) Description 09/21/2023 External Device Data STL ABSTRACTION Provider, Abstract [...] (Late Contact Info) Description 08/04/2024 1:00 PM PARISH WORKER Appointment [facility] Infusion Center 2nd In [address] [place] [address] Aviva Humphries MD [address] [place] [address] Infusion Chair 5, 2nd Floor Hall 08/25/2024 1:00 PM PARISH WORKER Office Visit [facility] Gynecologic Oncology Hall [address] [place] [address] Edilia Pettit, CHELY [address] [facility] [address] [place] [phone] 08/25/2024 1:30 PM PARISH WORKER Appointment [facility] Infusion Center 2nd Fl [address] [place] [address] Aviva Humphries MD [address] [facility] [facility] [address] [place] [address] Infusion Chair 1, 2nd Floor [place] 09/01/2024 10:45 AM PARISH WORKER Appointment [facility] Nuclear Medicine [address] [place] [phone] Edilia Pettit, CHELY [address] [facility] [address] [place] [phone] documented as of this encounter Visit Diagnoses Not on filedocumented in this encounter Care Teams Forest Fire Management Officer Relationship Specialty Start Date End Date Shilo Soares MD [address] [place] [phone] PCP - General Internal Medicine 04/24/23 documented as of this encounter
--- OUTSIDE RECORDS SUMMARY | 2024-07-26 23:57 | XMS_ITS | Encounter Summary ---
Author Organization [facility] Address [address] [place] [address] Care Team Providers Care Exhibits Manager Name Role Phone Shilo Soares MD Primary Care Provider [phone] Encounter Details Date Type Department Care Team (Late Contact Info) Description 09/04/2023 External Device Data STL ABSTRACTION Provider, Abstract [...] (Late Contact Info) Description 08/04/2024 1:00 PM CURRICULUM COUNSELOR Appointment [facility] 2nd Tx [address] [place] [address] Aviva Humphries MD [address] [place] [address] Infusion Chair 5, 2nd Floor Hall 08/25/2024 1:00 PM CURRICULUM COUNSELOR Office Visit [facility]3] Gynecologic Oncology Hall [address] [place] [address] Edilia Pettit, CHELY [address] [place] [phone] 08/25/2024 1:30 PM CURRICULUM COUNSELOR Appointment [facility] 2nd Fl [address] [place] [address] Aviva Humphries MD [address] [place] [address] Infusion Chair 1, 2nd Floor [place] 09/01/2024 10:45 AM CURRICULUM COUNSELOR Appointment Randy Hall [facility] Nuclear Medicine [address] [place] [address] [phone] Edilia Pettit, CHELY [address] [facility] [address] [place] [address] documented as of this encounter Visit Diagnoses Not on filedocumented in this encounter Care Teams Exhibits Manager Relationship Specialty Start Date End Date Shilo Soares MD [address] [place] [address] PCP - General Internal Medicine 04/24/23 documented as of this encounter
--- OUTSIDE RECORDS SUMMARY | 2024-07-26 23:57 | XMS_ITS | Encounter Summary ---
Author Organization [facility] Address [address] [place] [address] Care Team Providers Care Garment Examiner Name Role Phone Shilo Soares MD Primary Care Provider [phone] Encounter Details Date Type Department Care Team (Late Contact Info) Description 09/14/2023 External Device Data STL ABSTRACTION Provider, Abstract [...] (Late Contact Info) Description 08/04/2024 1:00 PM SECURITY REPRESENTATIVE Appointment [facility] 2nd Sc [address] [place] [address] Aviva Humphries MD [address] [place] [address] Infusion Chair 5, 2nd Floor Hall 08/25/2024 1:00 PM SECURITY REPRESENTATIVE Office Visit [facility] Gynecologic Oncology Hall [address] [place] [address] Edilia Pettit, CHELY [address] [place] [address] 08/25/2024 1:30 PM SECURITY REPRESENTATIVE Appointment [facility] 2nd Fl [address] [place] [address] Aviva Humphries MD [address] [place] [address] Infusion Chair 1, 2nd Floor [place] 09/01/2024 10:45 AM SECURITY REPRESENTATIVE Appointment Randy [facility] Nuclear Medicine [address] [place] [address] [id number] Edilia Pettit, CHELY [address] [facility] [address] [place] [address] documented as of this encounter Visit Diagnoses Not on filedocumented in this encounter Care Teams Garment Examiner Relationship Specialty Start Date End Date Shilo Soares MD [address] [place] [address] PCP - General Internal Medicine 04/24/23 documented as of this encounter
--- OUTSIDE RECORDS SUMMARY | 2024-07-26 23:57 | XMS_ITS | Encounter Summary ---
Author Organization [facility] Address [address] [place] [address] Care Team Providers Care Director Of Home Care Hospice Name Role Phone Shilo Soares MD Primary Care Provider [phone] Encounter Details Date Type Department Care Team (Latest Contact Info) Description 09/03/2023 7:56 AM SHELL MACHINE OPERATOR - 09/03/2023 11:59 PM SHELL MACHINE OPERATOR Hospital Encounter [facility] [address] [place] [address] Aviva Humphries MD [address] [place] [address] Discharge Disposition: Home or [...] bedtime. 02/26/2021 fluticasone propionate (FLONASE) 50 mcg/spray [place], Suspension nasal inhaler Administer 2 Sprays in [...] st Contact Info) Description 08/04/2024 1:00 PM SHELL MACHINE OPERATOR Appointment [facility] 2nd Fl [address] [place] [address] Aviva Humphries MD [address] [place] [address] Infusion Chair 5, 2nd Floor Hall 08/25/2024 1:00 PM SHELL MACHINE OPERATOR Office Visit [facility] Gynecologic Oncology Hall [address] [place] [address] Edilia Pettit, CHELY [address] [facility] [address] [place] [address] 08/25/2024 1:30 PM SHELL MACHINE OPERATOR Appointment Randy Proctor [facility] Infusion Center 2nd Fl [address] [place] [address] Aviva Humphries MD [address] [facility] [address] [facility] [address] [place] [address] Infusion Chair 1, 2nd Floor Hall 09/01/2024 10:45 AM SHELL MACHINE OPERATOR Appointment Randy Proctor [facility] Nuclear Medicine [address] [place] [phone] Edilia Pettit, CHELY [address] [facility] [address] [place] [address] documented as of this encounter Procedures Procedure Name Priority Date/Time Associated Diagnosis Comments DIFFERENTIAL, MANUAL Stat 09/03/2023 8:05 AM SHELL MACHINE OPERATOR Malignant neoplasm of ovary, unspecified laterality CBC WITH DIFFERENTIAL Stat 09/03/2023 8:05 AM SHELL MACHINE OPERATOR Malignant neoplasm of ovary, unspecified laterality URINALYSIS W/REFLEX MICROSCOPIC Stat 09/03/2023 8:05 AM SHELL MACHINE OPERATOR Malignant neoplasm of ovary, unspecified laterality MAGNESIUM LEVEL Stat 09/03/2023 8:05 AM SHELL MACHINE OPERATOR Malignant neoplasm of ovary, unspecified laterality COMPREHENSIVE METABOLIC PANEL Stat 09/03/2023 8:05 AM SHELL MACHINE OPERATOR Malignant neoplasm of ovary, unspecified laterality CANCER ANTIGEN 125 Routine 09/03/2023 8: 04 AM SHELL MACHINE OPERATOR Malignant neoplasm of ovary, unspecified laterality documented in this encounter Results * MANUAL DIFFERENTIAL (09/03/2023 8:05 AM [facility]) PLATELET EST. Consistent w Count 09/03/2023 8:58 AM [facility] LABORATORY SERVICES - . [facility] ANISOCYTOSIS 1+ /hpf 09/03/2023 8:58 AM [facility] LABORATORY [facility] - . [facility] POLYCHROMASIA 1+ /hpf 09/03/2023 8:58 AM [facility] LABORATORY [facility] Blood Collection / Unknown 09/03/2023 8:05 AM SHELL MACHINE OPERATOR 09/03/2023 8:28 AM [facility] Aviva Humphries MD HEMATOLOGY ORDERABLE S COM [facility] [employer] SERVICES [facility] CLIA# [id number] [address] [place], [place] [address] * (ABNORMAL) URINALYSIS WITH REFLEX MICROSCOPIC (09/03/2023 8:05 AM [facility]) COLOR UA Pale Yellow Pale to Dark Yellow 09/03/2023 8:38 AM [facility]ORAT[facility] CLARITY UA Clear Clear 09/03/2023 8:38 AM [facility] LABORATORY SERVICES [facility]. [facility] SPECIFIC GRAVITY UA 1.006 1.003 - 1.035 09/03/2023 8:38 AM [facility] PH UA 5.0 5.0 - 8.0 09/03/2023 8:38 AM [facility]. [facility] LEUKOCYTE ESTERASE UA Negative Negative 09/03/2023 8:38 AM [facility]. [facility] NITRITE UA Negative Negative 09/03/2023 8:38 AM [facility] - . [facility] PROTEIN UA Negative Negative 09/03/2023 8:38 AM [facility] SERVICES - . [facility] GLUCOSE UA Negative Negative 09/03/2023 8:38 AM [facility]. [facility] KETONES UA Negative Negative 09/03/2023 8:38 AM [facility]. [facility] UROBILINOGEN UA Normal <2.0 mg/dL 8:38 AM SHELL MACHINE OPERATOR [facility] BILIRUBIN UA Negative Negative 09/03/2023 8:38 AM [facility] LABORATORY [facility] - [facility] BLOOD UA 1+(A) Negative 09/03/2023 8:38 AM [facility] LABORATORY [facility] WBC UA 0-2 0 - 2 /hpf 09/03/2023 8:38 AM [facility] LABORATORY [facility] RBC UA 0-2 0 - 2 /hpf 09/03/2023 8:38 AM [facility] LABORATORY [facility] BACTERIA UA Negative Negative /hpf 09/03/2023 8:38 AM [facility] LABORATORY [facility] EPITHELIAL CELLS, URINE 0-5 0 - 5 /hpf 09/03/2023 8:38 AM [facility] LABORATORY [facility] - [facility] HYALINE CAST 0-2 None Seen, 0-2 /lpf 09/03/2023 8:38 AM [facility] LABORATORY [facility] Urine URINE SPECIMEN OBTAINED BY CLEAN CATCH PROCEDURE / Unknown Collection / Unknown 09/03/2023 8:05 AM SHELL MACHINE OPERATOR 09/03/2023 8:29 AM SHELL MACHINE OPERATOR Aviva Humphries MD URINE ORDERABLES [facility] CLIA# [id number] [address] [place] [address] * MAGNESIUM LEVEL (09/03/2023 8:05 AM SHELL MACHINE OPERATOR) MAGNESIUM 2.1 1.6 - 2.4 mg/dL 09/03/2023 9:04 AM [facility] LABORATORY [facility] Blood Collection / Unknown 09/03/2023 8:05 AM SHELL MACHINE OPERATOR 09/03/2023 8:28 AM SHELL MACHINE OPERATOR Aviva Humphries MD CHEMISTRY ORDERABLES [facility] CLIA# [id number] [address] [place] [address] * (ABNORMAL) COMPREHENSIVE METABOLIC PANEL (09/03/2023 8:05 AM [facility]) SODIUM 139 136 - 145 mmol/L 09/03/2023 9:04 AM [facility] POTASSIUM 4.2 3.5 - 5.0 mmol/L 09/03/2023 9:04 AM [facility] CHLORIDE 105 98 - 107 mmol/L 09/03/2023 9:04 AM [facility] [facility] CO2 25 22 - 29 mmol/L 09/03/2023 9:04 AM [facility] [facility] - . [place] CALCIUM 9.2 8.6 - 10.2 mg/dL 09/03/2023 9:04 AM [facility] BUN 10 8 - 23 mg/dL 09/03/2023 9:04 AM [facility] [facility] - . [place] CREATININE 0.72 0.51 - 0.95 mg/dL 09/03/2023 9:04 AM [facility] [facility] - . [facility] GLUCOSE 102(H) 74 - 99 mg/dL 09/03/2023 9:04 AM [facility] [facility] - . [place] TOTAL PROTEIN 7.0 6.7 - 8.6 g/dL 09/03/2023 9:04 AM [facility] ALBUMIN 4.1 3.5 - 5.2 g/dL 09/03/2023 9:04 AM [facility] BILIRUBIN TOTAL 0.2 0.2 - 1.1 mg/dL 09/03/2023 9:04 AM [facility] [facility]AT[facility] - . [facility] ALKALINE PHOSPHATASE 78 35 - 104 U/L 09/03/2023 9:04 AM [facility] [facility] - . [facility] AST 37(H) <33 U/L 09/03/2023 9:04 AM SHELL MACHINE OPERATOR [facility] LABORATORY SERVICES - . [facility] ALT 44(H) <34 U/L 09/03/2023 9:04 AM [facility] [employer] LABORATORY [facility] - . [facility] GFR >60 >=60 mL/min/1.7 3 sq meter 09/03/2023 9:04 AM [facility] [employer] LABORATORY SERVICES - . [facility] Comment:eGFR calculated with 2020 CKD-EPI equation. Vegetarian diet, extremely high or low muscle mass, and may affect results. Cystatin C with Glomerular Filtration Rate is a suitable alternative for these patients. ANION GAP 9 8 - 16 mmol/L 09/03/2023 9:04 AM [facility] Blood Collection / Unknown 09/03/2023 8:05 AM SHELL MACHINE OPERATOR 09/03/2023 8:28 AM [facility] - 09/03/2023 9:04 AM SHELL MACHINE OPERATOR Samples containing indocyanine green cause interferences on Total and/or Direct Bilirubin and must not be measured. Aviva Humphries MD CHEMISTRY ORDERABLES [facility] [employer] [facility] CLIA# [id number] [address] [place] [address] * (ABNORMAL) CBC WITH DIFFERENTIAL (09/03/2023 8:05 AM SHELL MACHINE OPERATOR) WBC 7.6 4.0 - 9.8 K/uL 09/03/2023 8:30 AM [facility] RBC 3.30(L) 3.90 - 4.90 M/uL 09/03/2023 8:30 AM [facility] HEMOGLOBIN 10.6(L) 11.8 - 14.8 g/dL 09/03/2023 8:30 AM [facility] HEMATOCRIT 32.7(L) 35.5 - 44.0 % 09/03/2023 8:30 AM [facility] MCV 99.1(H) 82.0 - 99.0 fL 09/03/2023 8:30 AM [facility] MCH 32.1 27.2 - 32.6 pg 09/03/2023 8:30 AM [facility] MCHC 32.4 31.5 - 35.5 g/dL 09/03/2023 8:30 AM [facility] RDW 18.7(H) 11.5 - 14.5 % 09/03/2023 8:30 AM [facility] - [facility] RDW-STDEV 69.0(H) 37.1 - 48.7 fL 09/03/2023 8:30 AM SHELL MACHINE OPERATOR [facility] PLATELETS 324 140 - 350 K/uL 09/03/2023 8:30 AM SHELL MACHINE OPERATOR [facility] MPV 9.7 9.3 - 12.4 fL 09/03/2023 8:30 AM SHELL MACHINE OPERATOR [facility] NEUTROPHILS 64 % 09/03/2023 8:30 AM SHELL MACHINE OPERATOR [facility] LYMPHOCYTES 26 % 09/03/2023 8:30 AM SHELL MACHINE OPERATOR [facility] MONOCYTES 7 % 09/03/2023 8:30 AM SHELL MACHINE OPERATOR [facility] EOSINOPHILS 3 % 09/03/2023 8:30 AM SHELL MACHINE OPERATOR [facility] BASOPHILS 1 % 09/03/2023 8:30 AM SHELL MACHINE OPERATOR [facility] - . [place] IMMATURE GRANULOCYTES 0 % 09/03/2023 8:30 AM SHELL MACHINE OPERATOR [facility] - . [place] NEUTROPHIL ABSOLUTE 4.86 1.90 - 7.00 K/uL 09/03/2023 8:30 AM SHELL MACHINE OPERATOR [facility] LYMPHOCYTE ABSOLUTE 1.93 0.70 - 4.50 K/uL 09/03/2023 8:30 AM SHELL MACHINE OPERATOR [facility] MONOCYTE ABSOLUTE 0.50 0.10 - 1.30 K/uL 09/03/2023 8:30 AM [employer] LABORATORY SERVICES - . [place] EOSINOPHIL ABSOLUTE 0.23 0.00 - 0.70 K/uL 09/03/2023 8:30 AM [employer] LABORATORY SERVICES [facility] BASOPHILS ABSOLUTE 0.04 0.00 - 0.20 K/uL 09/03/2023 8:30 AM [employer] LABORATORY SERVICES - . [place] IMMATURE GRANULOCYTES ABSOLUTE 0.02 0.00 - 0.03 K/uL 09/03/2023 8:30 AM [employer] SERVICES - . [facility] Blood Collection / Unknown 09/03/2023 8:05 AM SHELL MACHINE OPERATOR 09/03/2023 8:28 AM SHELL MACHINE OPERATOR Aviva Humphries MD HEMATOLOGY ORDERABLE S [facility] LABORATORY SERVICES [facility]# [id number] [address] [place] [address] * CANCER ANTIGEN 125 (09/03/2023 8:04 AM SHELL MACHINE OPERATOR) CA 125 9 <35 U/mL [facility] Comment: This test was performed using the Siemens Chemiluminescent method. Values obtained from different assay methods cannot be used interchangeably. CA 125 levels, regardless of value, should not be interpreted as absolute evidence of the presence or absence of disease. Test Performed at: [facility] [address] [place], [place] ??[address] Radha Perez MD Blood 09/03/2023 8:04 AM SHELL MACHINE OPERATOR 09/03/2023 8:21 AM SHELL MACHINE OPERATOR Aviva Humphries MD CHEMISTRY ORDERABLES Performing Organization Address City/[facility]/ZIP Co de Phone Number [facility] [phone] [facility] [address] [place] [address] documented in this encounter Visit Diagnoses Diagnosis Malignant neoplasm of ovary, unspecified laterality documented in this encounter Administered Medications Inactive Administered Medications - up to 3 most recent administrations Medication Order MAR Action Action Date Dose Rate Site sodium chloride flush injection 20 mL 20 mL, IV, SEE ADMIN INSTRUCTIONS, Starting on Thu09/03/23 at 0812, Until Thu09/04/23 at 0317, Routine Given 09/03/2023 8:14 AM SHELL MACHINE OPERATOR 20 mL documented in this encounter Care Teams Director Of Home Care Hospice Relationship Specialty Start Date End Date Shilo Soares MD [address] [place] [address] PCP - General Internal Medicine 04/24/23 documented as of this encounter
--- OUTSIDE RECORDS SUMMARY | 2024-07-26 23:57 | XMS_ITS | Encounter Summary ---
Author Organization [facility] Address [address] [place] [address] Care Team Providers Care Furnace Stock Inspector Name Role Phone Shilo Soares MD Primary Care Provider [phone] Encounter Details Date Type Department Care Team (Late Contact Info) Description 08/13/2023 External Device Data STL ABSTRACTION Provider, Abstract [...] Contact Info) Description 08/04/2024 1:00 PM CONCRETE BATCHER Appointment [facility] 2nd Al [address] [place] [address] Aviva Humphries MD [address] [place] [address] Infusion Chair 5, 2nd Floor Hall 08/25/2024 1:00 PM CONCRETE BATCHER Office Visit [facility] Gynecologic Oncology Hall [address] [place] [address] Edilia Pettit, CHELY [address] [place] [address] 08/25/2024 1:30 PM CONCRETE BATCHER Appointment [facility] 2nd Fl [address] [place] [address] Aviva Humphries MD [address] [place] [address] Infusion Chair 1, 2nd Floor [place] 09/01/2024 10:45 AM CONCRETE BATCHER Appointment [facility] Nuclear Medicine [address] [place] [phone] Edilia Pettit, CHELY [address] [facility] [address] [place] [address] documented as of this encounter Visit Diagnoses Not on filedocumented in this encounter Care Teams Furnace Stock Inspector Relationship Specialty Start Date End Date Shilo Soares MD [address] [place] [address] PCP - General Internal Medicine 04/24/23 documented as of this encounter
--- OUTSIDE RECORDS SUMMARY | 2024-07-26 23:57 | XMS_ITS | Encounter Summary ---
Author Organization [facility] Address [address] [place] [address] Care Team Providers Care Senior Mechanical Project Manager Name Role Phone Shilo Soares MD Primary Care Provider [phone] Encounter Details Date Type Department Care Team (Late Contact Info) Description 08/12/2023 Abstract [facility] Gynecologic Oncology Hall [address] [facility] [address] [place] [address] Aviva Humphries MD [address] [place] [address] Social History Tobacco Use Types [...] (Late Contact Info) Description 08/04/2024 1:00 PM FLOWERS SALESPERSON Appointment [facility] 2nd Fl [address] [place] [address] Aviva Humphries MD [address] [place] [address] Infusion Chair 5, 2nd Floor Hall 08/25/2024 1:00 PM FLOWERS SALESPERSON Office Visit [facility] Gynecologic Oncology Hall [address] [place] [address] Edilia Pettit NP [address] [place] [address] 08/25/2024 1:30 PM FLOWERS SALESPERSON Appointment [facility] [address] [place] [address] Aviva Humphries MD [address] [place] [address] Infusion Chair 1, 2nd Floor [place] 09/01/2024 10:45 AM FLOWERS SALESPERSON Appointment Randy Proctor [facility] Nuclear Medicine [address] [place] [address] [phone] Edilia Pettit, CHELY [address] [facility] [address] [place] [address] documented as of this encounter Visit Diagnoses Not on filedocumented in this encounter Care Teams Senior Mechanical Project Manager Relationship Specialty Start Date End Date Shilo Soares MD [address] [place] [address] PCP - General Internal Medicine 04/24/23 documented as of this encounter
--- OUTSIDE RECORDS SUMMARY | 2024-07-26 23:57 | XMS_ITS | Encounter Summary ---
Author Organization [facility] Address [address] [place] [address] Care Team Providers Care Social Sciences Instructor Name Role Phone Shilo Soares MD Primary Care Provider [phone] Reason for Referral * CT Scan (Routine) - Closed Specialty Diagnoses / Procedures Referred By Alison gomez Referred To Contact Diagnoses Malignant neoplasm of ovary, unspecified laterality Procedures CT CHEST ABDOMEN PELVIS W Aviva Cochran MD [address] [place] [address] [facility] Ct Scan [address] [place] [address] Referral ID Status Reason Start Date Expiration Date Visits Re quested Visits Authorized [id number] Closed 09/24/2023 10/24/2024 1 1 ASSEMBLER Encounter Details Date Type Department Care Team (Late st Contact Info) Description 09/24/2023 Orders Only [facility] Gynecologic Oncology Hall [address] [place] [address] Stevie Chavarria, JANET Malignant neoplasm of ovary, unspecified laterality (Primary [...] st Contact Info) Description 08/04/2024 1:00 PM BALL ASSEMBLER Appointment Randy Hall [facility] Infusion Center 2nd Fl [address] [place] [address] Aviva Humphries MD [address] [facility] [address] [place] [address] Infusion Chair 5, 2nd Floor Hall 08/25/2024 1:00 PM BALL ASSEMBLER Office Visit [facility] Gynecologic Oncology Hall [address] [facility] [address] [place] [address] Edilia Pettit NP [address] [facility] [address] [place] [address] 08/25/2024 1:30 PM BALL ASSEMBLER Appointment Randy Hall [facility] Infusion Center 2nd Fl [address] [place] [address] Aviva Humphries MD [address] [facility] [place] [address] Infusion Chair 1, 2nd Floor Hall 09/01/2024 10:45 AM BALL ASSEMBLER Appointment Randy Proctor Hall [facility] Nuclear Medicine [address] [place] [address] [phone] Edilia Pettit, CHELY [address] [facility] [address] [place] [address] documented as of this encounter Procedures Procedure Name Priority Date/Time Associated Diagnosis Comments CBC WITH DIFFERENTIAL Routine 12/02/2023 7:37 AM CDT Malignant neoplasm of ovary, unspecified laterality CANCER ANTIGEN 125 Routine 12/02/2023 7: 37 AM CDT Malignant neoplasm of ovary, unspecified laterality COMPREHENSIVE METABOLIC PANEL Routine 12/02/2023 7:37 AM CDT Malignant neoplasm of ovary, unspecified laterality documented in this encounter Results * CANCER ANTIGEN 125 (12/02/2023 7:37 AM CDT) CA 125 7 <35 U/mL [facility] Comment: This test was performed using the Siemens Chemiluminescent method. Values obtained from different assay methods cannot be used interchangeably. CA 125 levels, regardless of value, should not be interpreted as absolute evidence of the presence or absence of disease. FASTING:NO FASTING: NO Test Performed at: [facility] [address] [place] [address] ??[phone] Radha Perez MD Blood 12/02/2023 7:37 AM CDT 12/02/2023 7:38 AM CDT Aviva Humphries MD CHEMISTRY ORDERABLES [facility] [phone] [facility] [address] [place] [phone] * COMPREHENSIVE METABOLIC PANEL (12/02/2023 7:37 AM CDT) GLUCOSE 91 65 - 139 mg/dL [facility] Comment: ? Non-fasting reference interval BUN 11 7 - 25 mg/dL [facility] CREATININE 0.99 0.50 - 1.05 mg/dL [facility] GFR 64 > OR = 60 mL/min/1. 73m2 [facility] BUN/CREAT RATIO SEE NOTE: (calc) [facility] Comment: ?? Not Reported: BUN and Creatinine are within ?? reference range. ? SODIUM 140 135 - 146 mmol/L [facility] POTASSIUM 4.0 3.5 - 5.3 mmol/L [facility] CHLORIDE 102 98 - 110 mmol/L [facility] CO2 30 20 - 32 mmol/L [facility] CALCIUM 9.4 8.6 - 10.4 mg/dL [facility] TOTAL PROTEIN 7.2 6.1 - 8.1 g/dL [facility] ALBUMIN 4.4 3.6 - 5.1 g/dL [facility] GLOBULIN 2.8 1.9 - 3.7 g/dL (calc) [facility] ALBUMIN/GLOBULIN RATIO 1.6 1.0 - 2.5 (calc) [facility] BILIRUBIN TOTAL 0.7 0.2 - 1.2 mg/dL [facility] ALKALINE PHOSPHATASE 73 37 - 153 U/L [facility] AST 19 10 - 35 U/L [facility] ALT 20 6 - 29 U/L [facility] Comment: Test Performed at: [facility] [address] [place] ??[phone] Radha Perez MD Blood 12/02/2023 7:37 AM CDT 12/02/2023 7:38 AM CDT Aviva Humphries MD CHEMISTRY ORDERABLES [facility] [phone] [facility] [address] [place] [address] * (ABNORMAL) CBC WITH DIFFERENTIAL (12/02/2023 7:37 AM CDT) WBC 6.2 3.8 - 10.8 Thousand/u L [facility] RBC 3.72(L) 3.80 - 5.10 Million/uL [facility] HEMOGLOBIN 12.3 11.7 - 15.5 g/dL [facility] HEMATOCRIT 37.5 35.0 - 45.0 % [facility] MCV 100.8(H) 80.0 - 100.0 fL [facility] MCH 33.1(H) 27.0 - 33.0 pg [facility] MCHC 32.8 32.0 - 36.0 g/dL [facility] RDW 16.6(H) 11.0 - 15.0 % [facility] PLATELETS 258 140 - 400 Thousand/u L [facility] MPV 9.7 7.5 - 12.5 fL [facility] NEUTROPHIL ABSOLUTE 4,042 1,500 - 7,800 cells/uL [facility] LYMPHOCYTE ABSOLUTE 1,761 850 - 3,900 cells/uL [facility] MONOCYTE ABSOLUTE 329 200 - 950 cells/uL [facility] EOSINOPHIL ABSOLUTE 31 15 - 500 cells/uL [facility] BASOPHILS ABSOLUTE 37 0 - 200 cells/uL [facility] NEUTROPHIL 65.2 % [facility] LYMPHOCYTES 28.4 % [facility] MONOCYTE 5.3 % [facility] EOSINOPHILS 0.5 % [facility] BASOPHILS 0.6 % [facility] Comment: FASTING:NO FASTING: NO Test Performed at: [facility] [address] [place], [place] ??[phone] Radha Perez MD Blood 12/02/2023 7:37 AM CDT 12/02/2023 7:38 AM CDT Aviva Humphries MD HEMATOLOGY ORDERABLE S [facility] [phone] [facility] [address] [place] [address] * CT CHEST ABDOMEN PELVIS W CONT [...] abdomen or pelvis. DICTATION LOCATION: Location [facility] 11/09/2023 7:30 PM CDT EXAMINATION: CT OF [...] in the abdomen or pelvis. DICTATION LOCATION: [address] Aviva Humphries MD CT ORDERABLES documented in this encounter Visit Diagnoses Diagnosis Malignant neoplasm of ovary, unspecified laterality- Primary Malignant neoplasm of ovary, unspecified laterality documented in this encounter Care Teams Social Sciences Instructor Relationship Specialty Start Date End Date Shilo Soares MD [address] [place] [address] PCP - General Internal Medicine 04/24/23 documented as of this encounter
--- OUTSIDE RECORDS SUMMARY | 2024-07-26 23:57 | XMS_ITS | Encounter Summary ---
Author Organization [facility] Address [address] [place] [address] Care Team Providers Care Director Of Plant Operations Name Role Phone Shilo Soares MD Primary Care Provider [phone] Encounter Details Date Type Department Care Team (Late Contact Info) Description 09/07/2023 External Device Data STL ABSTRACTION Provider, Abstract [...] (Late Contact Info) Description 08/04/2024 1:00 PM DRAFTER ENGINEERING Appointment [facility] 2nd [place] [address] [place] [address] Aviva Humphries MD [address] [place] [address] Infusion Chair 5, 2nd Floor Hall 08/25/2024 1:00 PM DRAFTER ENGINEERING Office Visit [facility] Gynecologic Oncology Hall [address] [place] [address] Edilia Pettit, CHELY [address] [facility] [address] [place] [address] 08/25/2024 1:30 PM DRAFTER ENGINEERING Appointment [facility] Center 2nd Fl [address] [place] [address] Aviva Humphries MD [address] [facility] [address] [place] [address] Infusion Chair 1, 2nd Floor [place] 09/01/2024 10:45 AM DRAFTER ENGINEERING Appointment Randy Hall [facility] Nuclear Medicine [address] [place] [address] [id number] Edilia Pettit, CHELY [address] [facility] [address] [place] [address] documented as of this encounter Visit Diagnoses Not on filedocumented in this encounter Care Teams Director Of Plant Operations Relationship Specialty Start Date End Date Shilo Soares MD [address] [place] [address] PCP - General Internal Medicine 04/24/23 documented as of this encounter
--- OUTSIDE RECORDS SUMMARY | 2024-07-26 23:57 | XMS_ITS | Encounter Summary ---
Author Organization [facility] Address [address] [place] [address] Care Team Providers Care Paper Coater Name Role Phone Shilo Soares MD Primary Care Provider [phone] Encounter Details Date Type Department Care Team (Late Contact Info) Description 09/20/2023 External Device Data STL ABSTRACTION Provider, Abstract [...] (Late Contact Info) Description 08/04/2024 1:00 PM MOTH PROOFER Appointment [facility] 2nd Nd [address] [place] [address] Aviva Humphries MD [address] [place] [address] Infusion Chair 5, 2nd Floor Hall 08/25/2024 1:00 PM MOTH PROOFER Office Visit [facility] Gynecologic Oncology Hall [address] [place] [address] Edilia Pettit, CHELY [address] [facility] [address] [place] [address] 08/25/2024 1:30 PM MOTH PROOFER Appointment [facility] Center 2nd Fl [address] [place] [address] Aviva Humphries MD [address] [facility] [address] [place] [address] Infusion Chair 1, 2nd Floor [place] 09/01/2024 10:45 AM MOTH PROOFER Appointment Randy Hall [facility] Nuclear Medicine [address] [place] [address] [id number] Edilia Pettit, CHELY [address] [facility] [address] [place] [address] documented as of this encounter Visit Diagnoses Not on filedocumented in this encounter Care Teams Paper Coater Relationship Specialty Start Date End Date Shilo Soares MD [address] [place] [address] PCP - General Internal Medicine 04/24/23 documented as of this encounter
--- OUTSIDE RECORDS SUMMARY | 2024-07-26 23:57 | XMS_ITS | Encounter Summary ---
Author Organization [facility] Address [address] [place] [address] Care Team Providers Care Roofing Laborer Name Role Phone Shilo Soares MD Primary Care Provider [phone] Encounter Details Date Type Department Care Team (Late Contact Info) Description 09/23/2023 External Device Data STL ABSTRACTION Provider, Abstract [...] (Late Contact Info) Description 08/04/2024 1:00 PM ELIGIBILITY ANALYST Appointment [facility] 2nd [place] [address] [place] [address] Aviva Humphries MD [address] [place] [address] Infusion Chair 5, 2nd Floor Hall 08/25/2024 1:00 PM ELIGIBILITY ANALYST Office Visit [facility] Gynecologic Oncology Hall [address] [place] [address] Edilia Pettit, CHELY [address] [facility] [address] [place] [address] 08/25/2024 1:30 PM ELIGIBILITY ANALYST Appointment [facility] 2nd Fl [address] [place] [address] Aviva Humphries MD [address] [facility] [address] [place] [address] Infusion Chair 1, 2nd Floor [place] 09/01/2024 10:45 AM ELIGIBILITY ANALYST Appointment Randy Hall [facility] Nuclear Medicine [address] [place] [address] [id number] Edilia Pettit, CHELY [address] [facility] [address] [place] [address] documented as of this encounter Visit Diagnoses Not on filedocumented in this encounter Care Teams Roofing Laborer Relationship Specialty Start Date End Date Shilo Soares MD [address] [place] [address] PCP - General Internal Medicine 04/24/23 documented as of this encounter
--- OUTSIDE RECORDS SUMMARY | 2024-07-26 23:57 | XMS_ITS | Encounter Summary ---
Author Organization [facility] Address [address] [place] [address] Care Team Providers Care Repair Department Manager Name Role Phone Shilo Soares MD Primary Care Provider [phone] Encounter Details Date Type Department Care Team (Late Contact Info) Description 08/12/2023 Orders Only [facility] Gynecologic Oncology [place] [address] [place] [address] Stevie Chavarria RN Malignant neoplasm [...] st Contact Info) Description 08/04/2024 1:00 PM BEAM WORKER Appointment Randy Hall [facility] Center 2nd Fl [address] [place] [address] Aviva Humphries MD [address] [place] [address] Infusion Chair 5, 2nd Floor Hall 08/25/2024 1:00 PM BEAM WORKER Office Visit [facility] Gynecologic Oncology Hall [address] [place] [address] Edilia Pettit, CHELY [address] [facility] [address] [place] [address] 08/25/2024 1:30 PM BEAM WORKER Appointment Randy Proctor [facility] Infusion Center [facility] [address] [place] [address] Aviva Humphries MD [address] [facility] [address] [place] [address] Infusion Chair 1, 2nd Floor [place] 09/01/2024 10:45 AM BEAM WORKER Appointment [facility] Nuclear Medicine [address] [place] [address] [id number] Edilia Pettit, CHELY [address] [facility] [address] [place] [address] documented as of this encounter Procedures Procedure Name Priority Date/Time Associated Diagnosis Comments BASIC METABOLIC PANEL Routine 08/13/2023 10:48 AM BEAM WORKER Malignant neoplasm of ovary, unspecified laterality documented in this encounter Results * (ABNORMAL) BASIC METABOLIC PANEL (08/13/2023 10:48 AM BEAM WORKER) GLUCOSE 155(H) 65 - 99 mg/dL [facility] Comment: ? Fasting reference interval For someone without known diabetes, a glucose value >125 mg/dL indicates that they may have diabetes and this should be confirmed with a follow-up test. BUN 13 7 - 25 mg/dL [facility] CREATININE 0.80 0.50 - 1.05 mg/dL [facility] GFR 83 > OR = 60 mL/min/1.7 3m2 [facility] BUN/CREAT RATIO SEE NOTE: 6 - 22 (calc) [facility] Comment: ?? Not Reported: BUN and Creatinine are within ?? reference range. ? SODIUM 138 135 - 146 mmol/L [facility] POTASSIUM 3.3(L) 3.5 - 5.3 mmol/L [facility] CHLORIDE 101 98 - 110 mmol/L [facility] CO2 28 20 - 32 mmol/L [facility] CALCIUM 9.3 8.6 - 10.4 mg/dL [facility] Comment: Test Performed at: [address] ??[phone] Radha Perez MD Blood 08/13/2023 10:4 8 AM BEAM WORKER 08/13/2023 10:48 AM BEAM WORKER Aviva Humphries MD CHEMISTRY ORDERABLES [facility] [phone] [facility] [address] [place] [address] documented in this encounter Visit Diagnoses Diagnosis Malignant neoplasm of ovary, unspecified laterality- Primary documented in this encounter Care Teams Repair Department Manager Relationship Specialty Start Date End Date Shilo Soares MD [address] [place] [address] PCP - General Internal Medicine 04/24/23 documented as of this encounter
--- OUTSIDE RECORDS SUMMARY | 2024-07-26 23:57 | XMS_ITS | Encounter Summary ---
Author Organization [facility] Address [address] [place] [address] Care Team Providers Care Dental Manager Name Role Phone Shilo Soares MD Primary Care Provider [phone] Encounter Details Date Type Department Care Team (Late Contact Info) Description 09/24/2023 External Device Data STL ABSTRACTION Provider, Abstract [...] Contact Info) Description 08/04/2024 1:00 PM WOOD ROOM HAND Appointment [facility] 2nd Al [address] [place] [address] Aviva Humphries MD [address] [place] [address] Infusion Chair 5, 2nd Floor Hall 08/25/2024 1:00 PM WOOD ROOM HAND Office Visit [facility] Gynecologic Oncology Hall [address] [place] [address] Edilia Pettit, CHELY [address] [facility] [address] [place] [address] 08/25/2024 1:30 PM WOOD ROOM HAND Appointment [facility] 2nd Fl [address] [place] [address] Aviva Humphries MD [address] [facility] [address] [place] [address] Infusion Chair 1, 2nd Floor [place] 09/01/2024 10:45 AM WOOD ROOM HAND Appointment Randy Hall [facility] Nuclear Medicine [address] [place] [address] [id number] Edilia Pettit, CHELY [address] [facility] [address] [place] [address] documented as of this encounter Visit Diagnoses Not on filedocumented in this encounter Care Teams Dental Manager Relationship Specialty Start Date End Date Shilo Soares MD [address] [place] [address] PCP - General Internal Medicine 04/24/23 documented as of this encounter
--- OUTSIDE RECORDS SUMMARY | 2024-07-26 23:57 | XMS_ITS | Encounter Summary ---
Author Organization [facility] Address [address] [place] [address] Care Team Providers Care Sanding Machine Buffer Name Role Phone Shilo Soares MD Primary Care Provider [phone] Encounter Details Date Type Department Care Team (Late Contact Info) Description 09/19/2023 External Device Data STL ABSTRACTION Provider, Abstract [...] (Late Contact Info) Description 08/04/2024 1:00 PM CHISEL WORKER Appointment [facility] 2nd [place] [address] [place] [address] Aviva Humphries MD [address] [place] [address] Infusion Chair 5, 2nd Floor Hall 08/25/2024 1:00 PM CHISEL WORKER Office Visit [facility] Gynecologic Oncology Hall [address] [place] [address] Edilia Pettit, CHELY [address] [facility] [address] [place] [address] 08/25/2024 1:30 PM CHISEL WORKER Appointment [facility] 2nd Fl [address] [place] [address] Aviva Humphries MD [address] [facility] [address] [place] [address] Infusion Chair 1, 2nd Floor [place] 09/01/2024 10:45 AM CHISEL WORKER Appointment Randy Hall [facility] Nuclear Medicine [address] [place] [address] [id number] Edilia Pettit, CHELY [address] [facility] [address] [place] [address] documented as of this encounter Visit Diagnoses Not on filedocumented in this encounter Care Teams Sanding Machine Buffer Relationship Specialty Start Date End Date Shilo Soares MD [address] [place] [address] PCP - General Internal Medicine 04/24/23 documented as of this encounter
--- OUTSIDE RECORDS SUMMARY | 2024-07-26 23:57 | XMS_ITS | Encounter Summary ---
Author Organization [facility] Address [address] [place] [address] Care Team Providers Care Supervisor Silvering Department Name Role Phone Shilo Soares MD Primary Care Provider [phone] Encounter Details Date Type Department Care Team (Late Contact Info) Description 09/09/2023 External Device Data STL ABSTRACTION Provider, Abstract [...] Contact Info) Description 08/04/2024 1:00 PM POWER SWITCHBOARD OPERATOR Appointment [facility] 2nd Pr [address] [place] [address] Aviva Humphries MD [address] [place] [address] Infusion Chair 5, 2nd Floor Hall 08/25/2024 1:00 PM POWER SWITCHBOARD OPERATOR Office Visit [facility] Gynecologic Oncology Hall [address] [place] [address] Edilia Pettit, CHELY [address] [facility] [address] [place] [address] 08/25/2024 1:30 PM POWER SWITCHBOARD OPERATOR Appointment [facility] 2nd Fl [address] [place] [address] Aviva Humphries MD [address] [facility] [address] [place] [address] Infusion Chair 1, 2nd Floor [place] 09/01/2024 10:45 AM POWER SWITCHBOARD OPERATOR Appointment Randy Hall [facility] Nuclear Medicine [address] [place] [address] [id number] Edilia Pettit, CHELY [address] [facility] [address] [place] [address] documented as of this encounter Visit Diagnoses Not on filedocumented in this encounter Care Teams Supervisor Silvering Department Relationship Specialty Start Date End Date Shilo Soares MD [address] [place] [address] PCP - General Internal Medicine 04/24/23 documented as of this encounter
--- OUTSIDE RECORDS SUMMARY | 2024-07-26 23:57 | XMS_ITS | Encounter Summary ---
Author Organization [facility] Address [address] [place] [address] Care Team Providers Care Environmental Services Assistant Name Role Phone Shilo Soares MD Primary Care Provider [phone] Encounter Details Date Type Department Care Team (Latest Contact Info) Description 08/19/2023 1:33 PM MANAGER TALENT - 08/19/2023 11:59 PM [facility] Hospital Encounter [facility] Laboratory Services Randy Proctor [facility] Center [address] [place] [address] Aviva Humphries MD [address] [place] [address] Discharge Disposition: Home or Self [...] bedtime. 02/26/2021 fluticasone propionate (FLONASE) 50 mcg/spray [place], Suspension nasal inhaler Administer 2 Sprays in each nostril daily. omega-3 fatty acids-fish oil 300-1,000 mg Capsule Take 2 Capsules by mouth daily. apixaban (ELIQUIS) 2.5 mg tablet Take 1 Tablet (2.5 mg) by mouth 2 times daily for 21 days. 42 Tablet 08/11/2023 09/02/2023 lidocaine-prilocaine (EMLA) 2.5-2.5 % Cream Apply a thin layer over port site 30-45 minutes prior to chemotherapy. 30 Gram 05/22/2023 10/05/2023 documented as of this encounter Miscellaneous Notes * Result Encounter Note - Aviva Humphries MD - 08/19/2023 1:35 PM MANAGER TALENT Please let Narda know that her UA was normal, no evidence of UTI GER TALENT documented in this encounter Plan of Treatment Upcoming Encounters Date Type Department Care Team (Late st Contact Info) Description 08/04/2024 1:00 PM MANAGER TALENT Appointment Randy Proctor [facility] Infusion Center 2nd Fl [address] [place] [address] Aviva Humphries MD [address] [place] [address] Infusion [address], [address] [place] [address] 08/25/2024 1:00 PM MANAGER TALENT Office Visit [facility] Gynecologic Oncology [place] [address] [address] Edilia Pettit, CHELY [address] [address] 08/25/2024 1:30 PM MANAGER TALENT Appointment Randy Proctor [facility] Infusion Center 2nd Fl [address] [place] [address] Aviva Humphries MD [address] [address] [address] [facility] [place] [address] Infusion Chair 1, [address] [place] [address] 09/01/2024 10:45 AM MANAGER TALENT Appointment [facility] Nuclear Medicine [address] [place] [address] [id number] Edilia Pettit, CHELY [address] [phone] documented as of this encounter Procedures Procedure Name Priority Date/Time Associated Diagnosis Comments URINALYSIS WITH REFLEX CULTURE Routine 08/19/2023 1:35 PM MANAGER TALENT Malignant neoplasm of ovary, unspecified laterality EXTRA TUBE Routine 08/19/2023 1:35 PM MANAGER TALENT documented in this encounter Results * URINALYSIS WITH REFLEX CULTURE (08/19/2023 1:35 PM MANAGER TALENT) COLOR UA YELLOW YELLOW [facility] CLARITY UA CLEAR CLEAR [facility] SPECIFIC GRAVITY UA 1.005 1.001 - 1.035 [facility] PH UA 5.5 5.0 - 8.0 [facility] GLUCOSE UA NEGATIVE NEGATIVE [facility] BILIRUBIN UA NEGATIVE NEGATIVE [facility] KETONES UA NEGATIVE NEGATIVE [facility] BLOOD UA NEGATIVE NEGATIVE [facility] PROTEIN UA NEGATIVE NEGATIVE [facility] NITRITE UA NEGATIVE NEGATIVE [facility] LEUKOCYTE ESTERASE UA NEGATIVE NEGATIVE [facility] WBC UA NONE SEEN < OR = 5 /HPF [facility] RBC UA NONE SEEN < OR = 2 /HPF [facility] EPITHELIAL CELLS, URINE NONE SEEN < OR = 5 /HPF [facility] BACTERIA UA NONE SEEN NONE SEEN /HPF [facility] HYALINE CAST NONE SEEN NONE SEEN /LPF [facility] URINE NOTE [facility] Comment: This urine was analyzed for the presence of WBC, RBC, bacteria, casts, and other formed elements. Only those elements seen were reported. URINE CULTURE [facility] Comment: NO CULTURE INDICATED Test Performed at: [facility] [place] [address] [place] ??[id number] Radha Perez Urine URINE SPECIMEN OBTAINED BY CLEAN CATCH PROCEDURE / Unknown 08/19/2023 1:35 PM MANAGER TALENT 08/19/2023 2:08 PM MANAGER TALENT Aviva Humphries MD URINE ORDERABLES [facility] [phone] [place] [address] [place] [id number] * EXTRA TUBE (08/19/2023 1:35 PM MANAGER TALENT) EXTRA TUBE RECEIVED [facility] Comment: An extra tube was received without a test specified. We will hold this specimen in our cold storage in the event additional testing is requested. Please contact your local client technical specialist for further assistance. SPECIMEN TYPE URINE CUP [facility] Comment: Test Performed at: [facility] [address] [place] ??[id number] Radha Perez 08/19/2023 1:35 PM MANAGER TALENT 08/19/2023 2:08 PM MANAGER TALENT Aviva Humphries MD CHEMISTRY ORDERABLES [employer] [facility] [phone] [facility] [address] [place] [address] documented in this encounter Visit Diagnoses Diagnosis Malignant neoplasm of ovary, unspecified laterality documented in this encounter Care Teams Environmental Services Assistant Relationship Specialty Start Date End Date Shilo Soares MD [address] [place] [address] PCP - General Internal Medicine 04/24/23 documented as of this encounter
--- OUTSIDE RECORDS SUMMARY | 2024-07-26 23:57 | XMS_ITS | Encounter Summary ---
Author Organization [facility] Address [address] [place] [address] Care Team Providers Care Ammonia Solution Preparer Name Role Phone Shilo Soares MD Primary Care Provider [phone] Encounter Details Date Type Department Care Team (Late Contact Info) Description 09/11/2023 External Device Data ST[facility] ABSTRACTION Provider, Abstract [...] (Late Contact Info) Description 08/04/2024 1:00 PM LPN CMA Appointment [facility]fusion Center 2nd Co [address] [place] [address] Aviva Humphries MD [address] [place] [address] Infusion Chair 5, 2nd Floor Hall 08/25/2024 1:00 PM LPN CMA Office Visit [facility] Gynecologic Oncology [place] [address] [place] [address] Edilia Pettit, CHELY [address] [place] [phone] 08/25/2024 1:30 PM LPN CMA Appointment [facility] 2nd Fl [address] [place] [address] Aviva Humphries MD [address] [place] [address] Infusion Chair 1, 2nd Floor [place] 09/01/2024 10:45 AM LPN CMA Appointment [facility] Nuclear Medicine [address] [place] [address] [id number] Edilia Pettit, CHELY [address] [facility] [address] [place] [address] documented as of this encounter Visit Diagnoses Not on filedocumented in this encounter Care Teams Ammonia Solution Preparer Relationship Specialty Start Date End Date Shilo Soares MD [address] [place] [address] PCP - General Internal Medicine 04/24/23 documented as of this encounter
--- OUTSIDE RECORDS SUMMARY | 2024-07-26 23:57 | XMS_ITS | Encounter Summary ---
Author Organization [facility] Address [address] [place] [address] Care Team Providers Care Construction Project Manager Name Role Phone Shilo Soares MD Primary Care Provider [phone] Encounter Details Date Type Department Care Team (Late Contact Info) Description 09/03/2023 Orders Only [facility] Gynecologic Oncology Hall [address] [place] [address] Aviva Humphries MD [address] [place] [address] Social History Tobacco Use Types [...] (Late Contact Info) Description 08/04/2024 1:00 PM TEACHING SPECIALISTS Appointment [facility] Center 2nd Fl [address] [place] [address] Aviva Humphries MD [address] [place] [address] Infusion Chair 5, 2nd Floor [place] 08/25/2024 1:00 PM TEACHING SPECIALISTS Office Visit [facility] Gynecologic Oncology Hall [address] [place] [address] Edilia Pettit, CHELY [address] [place] [address] 08/25/2024 1:30 PM TEACHING SPECIALISTS Appointment [facility] [address] [place] [address] Aviva Humphries MD [address] [place] [address] Infusion Chair 1, 2nd Floor [place] 09/01/2024 10:45 AM TEACHING SPECIALISTS Appointment Randy Proctor [facility] Nuclear Medicine [address] [place] [address] [id number] Edilia Pettit NP [address] [facility] [address] [place] [address] documented as of this encounter Visit Diagnoses Not on filedocumented in this encounter Care Teams Construction Project Manager Relationship Specialty Start Date End Date Shilo Soares MD [address] [place] [address] PCP - General Internal Medicine 04/24/23 documented as of this encounter
--- OUTSIDE RECORDS SUMMARY | 2024-07-26 23:57 | XMS_ITS | Encounter Summary ---
Author Organization [facility] Address [address] [place] [address] Care Team Providers Care Bottom Stainer Name Role Phone Shilo Soares MD Primary Care Provider [phone] Encounter Details Date Type Department Care Team [...] (Late Contact Info) Description 08/04/2024 1:00 PM GROUP DIRECTOR EXPERIENCE Appointment [facility] 2nd [place] [address] [place] [address] Aviva Humphries MD [address] [place] [address] Infusion Chair 5, 2nd Floor [place] 08/25/2024 1:00 PM GROUP DIRECTOR EXPERIENCE Office Visit [facility] Gynecologic Oncology Hall [address] [place] [address] Edilia Pettit, CHELY [address] [place] [address] 08/25/2024 1:30 PM GROUP DIRECTOR EXPERIENCE Appointment [facility] 2nd Fl [address] [place] [address] Aviva Humphries MD [address] [place] [address] Infusion Chair 1, 2nd Floor [place] 09/01/2024 10:45 AM GROUP DIRECTOR EXPERIENCE Appointment Randy Hall [facility] Nuclear Medicine [address] [place] [address] [id number] Edilia Pettit, CHELY [address] [facility] [address] [place] [address] documented as of this encounter Visit Diagnoses Not on filedocumented in this encounter Care Teams Bottom Stainer Relationship Specialty Start Date End Date Shilo Soares MD [address] [place] [address] PCP - General Internal Medicine 04/24/23 documented as of this encounter
--- OUTSIDE RECORDS SUMMARY | 2024-07-26 23:57 | XMS_ITS | Encounter Summary ---
Author Organization [facility] Address [address] [place] [address] Care Team Providers Care Black Top Roller Name Role Phone Shilo Soares MD Primary Care Provider [phone] Reason for Visit * Tx/Med Therapy Plan [...] SOLU MEDROL, BENADRYL, PEPCID Aviva Humphries MD [address] [place] [address] [facility] [place] 2nd Floor [place] [address] [facility] [place] [address] Referral ID Status Reason Start Date Expiration Date V isits Requested Visits Authorized [id number] Authorized 05/20/2023 05/26/2025 99 99 Encounter Details Date Type Department Care Team (Latest Contact Info) Description 09/24/2023 8:33 AM CHEMICAL BLENDER - 09/24/2023 11:59 PM [facility] Hospital Encounter [facility] Infusion Center 2nd Fl [address] [place] [address] Aviva Humphries MD [address] [place] [address] Infusion Chair 9, 2nd Floor [...] Sign Reading Time Taken Comments Blood Pressure 132/76 09/24/2023 8:44 AM CHEMICAL BLENDER Pulse 94 09/24/2023 8:44 AM CHEMICAL BLENDER Temperature 36.1 ??C (97 ??F) 09/24/2023 8:44 AM CHEMICAL BLENDER Respiratory Rate 18 09/24/2023 8:44 AM CHEMICAL BLENDER Oxygen Saturation - - Inhaled Oxygen Concentration [...] bedtime. 02/26/2021 fluticasone propionate (FLONASE) 50 mcg/spray [place], Suspension nasal inhaler Administer 2 Sprays in each nostril daily. omega-3 fatty acids-fish oil 300-1,000 mg Capsule Take 2 Capsules by mouth daily. lidocaine-prilocaine (EMLA) 2.5-2.5 % Cream Apply a thin layer over port site 30-45 minutes prior to chemotherapy. 30 Gram 05/22/2023 10/05/2023 documented as of this encounter Progress Notes * Ibeth Reyes RN - 09/24/2023 8:45 AM CST Pt admitted to infusion center for treatment. Labs reviewed per 2 licensed providers and okay to treat per parameters. Prior to chemotherapy administration: reviewed with pt the goal of chemotherapy regimen, the method of administration, and potential side effects. Taxol, carbo, mvasi administered via port without adverse effects. Good blood return obtained from port. Instructed pt to notify physician or go to ED if fever 100.5 F or higher, chills, or any change in condition. Pt verbalized understanding. Discharged home. ICAL BLENDER documented in this encounter Plan of Treatment Upcoming Encounters Date Type Department Care Team (Late st Contact Info) Description 08/04/2024 1:00 PM CHEMICAL BLENDER Appointment [facility] 2nd Fl [address] [place] [address] Aviva Humphries MD [address] [place] [address] Infusion Chair 5, 2nd Floor Hall 08/25/2024 1:00 PM CHEMICAL BLENDER Office Visit [facility] Gynecologic Oncology Hall [address] [place] [address] Edilia Pettit, CHELY [address] [place] [address] 08/25/2024 1:30 PM CHEMICAL BLENDER Appointment [facility] Infusion Center 2nd Fl [address] [place] [address] Aviva Humphries MD [address] [place] [address] Infusion Chair 1, 2nd Floor Hall 09/01/2024 10:45 AM CHEMICAL BLENDER Appointment [facility] Nuclear Medicine [address] [place] [address] [phone] Edilia Pettit, CHELY [address] [place] [address] documented as of this encounter Results * MAGNESIUM LEVEL (09/23/2023 2:19 PM CHEMICAL BLENDER) [facility] MAGNESIUM 2.2 1.6 - 2.4 mg/dL 09/23/2023 3:46 PM CHEMICAL BLENDER [facility] Blood BLOOD SPECIMEN / Unknown Collection / Unknown 09/23/2023 2:19 PM CHEMICAL BLENDER 09/23/2023 2:53 PM CHEMICAL BLENDER Aviva Humphries MD [facility]STRY [facility]ABLES [id number] [address] [place] [address] * (ABNORMAL) COMPREHENSIVE METABOLIC PANEL (09/23/2023 2:19 PM CHEMICAL BLENDER) SODIUM 138 136 - 145 mmol/L 09/23/2023 3:46 PM [facility] [employer] [facility] - [facility] POTASSIUM 3.8 3.5 - 5.0 mmol/L 09/23/2023 3:46 PM [facility] [employer] [facility] CHLORIDE 102 98 - 107 mmol/L 09/23/2023 3:46 PM [facility] [employer] [facility] CO2 25 22 - 29 mmol/L 09/23/2023 3:46 PM [facility] [employer] [facility] - [facility] CALCIUM 9.3 8.6 - 10.2 mg/dL 09/23/2023 3:46 PM [facility] [employer] [facility] - [facility] BUN 11 8 - 23 mg/dL 09/23/2023 3:46 PM [facility] [employer] [facility] - [facility] CREATININE 0.71 0.51 - 0.95 mg/dL 09/23/2023 3:46 PM [facility] [employer] [facility] - [facility] GLUCOSE 127(H) 74 - 99 mg/dL 09/23/2023 3:46 PM [facility] [employer] [facility] - [facility] TOTAL PROTEIN 7.4 6.7 - 8.6 g/dL 09/23/2023 3:46 PM [facility] [employer] [facility] - [facility] ALBUMIN 4.1 3.5 - 5.2 g/dL 09/23/2023 3:46 PM [facility] [employer] [facility] - [facility] BILIRUBIN TOTAL <0.2(L) 0.2 - 1.1 mg/dL 09/23/2023 3:46 PM [facility] [employer] [facility] - [facility] ALKALINE PHOSPHATASE 100 35 - 104 U/L 09/23/2023 3:46 PM CHEMICAL BLENDER [employer] [facility] - [facility] AST 29 <33 U/L 09/23/2023 3:46 PM CHEMICAL BLENDER [employer] [facility] - [facility] ALT 48(H) <34 U/L 09/23/2023 3:46 PM CHEMICAL BLENDER [employer] [facility] - [facility] GFR >60 >=60 mL/min/1.7 3 sq meter 09/23/2023 3:46 PM CHEMICAL BLENDER [employer] [facility] - [facility] Comment:eGFR calculated with 2020 CKD-EPI equation. Vegetarian diet, extremely high or low muscle mass, and may affect results. Cystatin C with Glomerular Filtration Rate is a suitable alternative for these patients. ANION GAP 11 8 - 16 mmol/L 09/23/2023 3:46 PM [facility] [employer] [facility] Blood BLOOD SPECIMEN / Unknown Collection / Unknown 09/23/2023 2:19 PM CHEMICAL BLENDER 09/23/2023 2:53 PM CHEMICAL BLENDER [facility] LABORATORY [facility] - 09/23/2023 3:46 PM CHEMICAL BLENDER Samples containing indocyanine green cause interferences on Total and/or Direct Bilirubin and must not be measured. Aviva Humphries MD CHEMISTRY ORDERABLES [facility] [employer] [facility] CLIA# [id number] [address] [facility] [place] [address] * (ABNORMAL) CBC WITH DIFFERENTIAL (09/23/2023 2:19 PM CHEMICAL BLENDER) WBC 6.4 4.0 - 9.8 K/uL 09/23/2023 2:46 PM [facility] [employer] [facility] RBC 3.28(L) 3.90 - 4.90 M/uL 09/23/2023 2:46 PM [facility] [employer] HEMOGLOBIN 10.8(L) 11.8 - 14.8 g/dL 09/23/2023 2:46 PM [facility] HEMATOCRIT 33.2(L) 35.5 - 44.0 % 09/23/2023 2:46 PM [facility] [employer] [facility] MCV 101.2(H) 82.0 - 99.0 fL 09/23/2023 2:46 PM [facility] [employer] MCH 32.9(H) 27.2 - 32.6 pg 09/23/2023 2:46 PM [facility] MCHC 32.5 31.5 - 35.5 g/dL 09/23/2023 2:46 PM [facility] [employer] RDW 15.2(H) 11.5 - 14.5 % 09/23/2023 2:46 PM [facility] RDW-STDEV 56.6(H) 37.1 - 48.7 fL 09/23/2023 2:46 PM CHEMICAL BLENDER [facility] PLATELETS 253 140 - 350 K/uL 09/23/2023 2:46 PM CHEMICAL BLENDER [facility] MPV 9.4 9.3 - 12.4 fL 09/23/2023 2:46 PM CHEMICAL BLENDER [facility] NEUTROPHILS 56 % 09/23/2023 2:46 PM CHEMICAL BLENDER [facility] LYMPHOCYTES 36 % 09/23/2023 2:46 PM CHEMICAL BLENDER [facility] MONOCYTES 7 % 09/23/2023 2:46 PM CHEMICAL BLENDER [facility] EOSINOPHILS 1 % 09/23/2023 2:46 PM CHEMICAL BLENDER [facility] BASOPHILS 1 % 09/23/2023 2:46 PM CHEMICAL BLENDER [employer] - [facility] IMMATURE GRANULOCYTES 0 % 09/23/2023 2:46 PM CHEMICAL BLENDER [facility] NEUTROPHIL ABSOLUTE 3.57 1.90 - 7.00 K/uL 09/23/2023 2:46 PM CHEMICAL BLENDER [facility] LYMPHOCYTE ABSOLUTE 2.28 0.70 - 4.50 K/uL 09/23/2023 2:46 PM CHEMICAL BLENDER [facility] MONOCYTE ABSOLUTE 0.47 0.10 - 1.30 K/uL 09/23/2023 2:46 PM CHEMICAL BLENDER [employer] [facility] EOSINOPHIL ABSOLUTE 0.05 0.00 - 0.70 K/uL 09/23/2023 2:46 PM CHEMICAL BLENDER [facility] BASOPHILS ABSOLUTE 0.03 0.00 - 0.20 K/uL 09/23/2023 2:46 PM CHEMICAL BLENDER [employer] - [facility] IMMATURE GRANULOCYTES ABSOLUTE 0.02 0.00 - 0.03 K/uL 09/23/2023 2:46 PM CHEMICAL BLENDER [employer] [facility] - . [facility] Blood BLOOD SPECIMEN / Unknown Collection / Unknown 09/23/2023 2:19 PM CHEMICAL BLENDER 09/23/2023 2:42 PM CHEMICAL BLENDER Aviva Humphries MD HEMATOLOGY ORDERABLE [facility]# [id number] [address] [place] [address] * CANCER ANTIGEN 125 (09/23/2023 2:18 PM CHEMICAL BLENDER) CA 125 7 <35 U/mL [employer] Comment: This test was performed using the Siemens Chemiluminescent method. Values obtained from different assay methods cannot be used interchangeably. CA 125 levels, regardless of value, should not be interpreted as absolute evidence of the presence or absence of disease. Test Performed at: [facility] [id number] [place] ??[address] Radha Perez MD Blood 09/23/2023 2:18 PM CHEMICAL BLENDER 09/23/2023 2:26 PM CHEMICAL BLENDER Aviva Humphries MD CHEMISTRY ORDERABLES Performing Organization Address City/State/[facility] Co de Phone Number [facility] [phone] [facility] [address] [place] [phone] documented in this encounter Visit Diagnoses Diagnosis [...] IV, ONE TIME ONLY, 1 dose, On Thu09/24/23 at 1245, Routine New Bag 09/24/2023 1:41 PM CHEMICAL BLENDER 773 mg 291.8 mL/hr CARBOplatin (PARAPLATIN) 450 mg in dextrose 5% 250 mL IVPB 450 mg (rounded from 454.5 mg, Target AUC = 5), IV, ONE TIME ONLY, 1 dose, On Thu09/24/23 at 1215, Routine Rate Verify 09/24/2023 1:04 PM CHEMICAL BLENDER 660 mL/hr New Bag 09/24/2023 1:04 PM CHEMICAL BLENDER 450 mg 660 mL/hr dexAMETHasone (DECADRON) 20 mg in sodium chloride 0.9% 100 mL IVPB (PREMIX) 20 mg, IV, ONE TIME ONLY, 1 dose, On Peace 09/24/23 at 0845, Routine Rate Verify 09/24/2023 9:37 AM CHEMICAL BLENDER 30 0 mL/hr New Bag 09/24/2023 9:37 AM CHEMICAL BLENDER 20 mg 300 mL/hr diphenhydrAMINE (BENADRYL) injection 25 mg 25 mg, IV, ONE TIME ONLY, 1 dose, On Peace 09/24/23 at 0845, Routine Given 09/24/2023 9:06 AM CHEMICAL BLENDER 25 mg famotidine PF (PEPCID) 20 mg/2 mL injection 20 mg 20 mg, IV, ONE TIME ONLY, 1 dose, On Peace 09/24/23 at 0845, Routine Given 09/24/2023 9:06 AM CHEMICAL BLENDER 20 mg fosaprepitant (EMEND) 150 mg in sodium chloride 0.9% 150 mL IVPB 150 mg, IV, ONE TIME ONLY, 1 dose, On Peace 09/24/23 at 0945, Routine New Bag 09/24/2023 9:37 AM CHEMICAL BLENDER 150 mg 534 mL/hr PACLitaxeL (TAXOL) 271 mg in sodium chloride 0.9% (PVC free) 500 mL IVPB 271 mg (rounded from 271.25 mg = 175 mg/m2 ? 1.55 m2 Treatment Plan BSA from Recorded weight), IV, ONE TIME ONLY, 1 dose, On Peace 09/24/23 at 0915, Routine Rate Verify 09/24/2023 10:04 AM CHEMICAL BLENDER 195.1 mL/hr New Bag 09/24/2023 10:04 AM CHEMICAL BLENDER 271 mg 195.1 mL/hr palonosetron (ALOXI) 0.25 mg/5 mL injection 0.25 mg 0.25 mg, IV, ONE TIME ONLY, 1 dose, On Peace 09/24/23 at 0845, Routine Given 09/24/2023 9:06 AM CHEMICAL BLENDER 0.25 mg documented in this encounter Care Teams Black Top Roller Relationship Specialty Start Date End Date Shilo Soares MD [address] [place] [address] PCP - General Internal Medicine 04/24/23 documented as of this encounter
--- OUTSIDE RECORDS SUMMARY | 2024-07-26 23:57 | XMS_ITS | Encounter Summary ---
Author Organization [facility] Address [address] [place] [address] Care Team Providers Care Respiratory Practitioner Name Role Phone Shilo Soares MD Primary Care Provider [phone] Encounter Details Date Type Department Care Team (Late Contact Info) Description 09/06/2023 External Device Data STL ABSTRACTION Provider, Abstract [...] (Late Contact Info) Description 08/04/2024 1:00 PM RATING SPECIALIST Appointment [facility]fusion Center 2nd Or [address] [place] [address] Aviva Humphries MD [address] [place] [address] Infusion Chair 5, 2nd Floor Hall 08/25/2024 1:00 PM RATING SPECIALIST Office Visit [facility] Gynecologic Oncology Hall [address] [place] [address] Edilia Pettit, CHELY [address] [place] [phone] 08/25/2024 1:30 PM RATING SPECIALIST Appointment [facility] 2nd Fl [address] [place] [address] Aviva Humphries MD [address] [place] [address] Infusion Chair 1, 2nd Floor [place] 09/01/2024 10:45 AM RATING SPECIALIST Appointment [facility] Nuclear Medicine [address] [place] [address] [id number] Edilia Pettit, CHELY [address] [facility] [address] [place] [address] documented as of this encounter Visit Diagnoses Not on filedocumented in this encounter Care Teams Respiratory Practitioner Relationship Specialty Start Date End Date Shilo Soares MD [address] [place] [address] PCP - General Internal Medicine 04/24/23 documented as of this encounter
--- OUTSIDE RECORDS SUMMARY | 2024-07-26 23:57 | XMS_ITS | Encounter Summary ---
Author Organization [facility] Address [address] [place] [address] Care Team Providers Care Land Acquisition Analyst Name Role Phone Shilo Soares MD Primary Care Provider [phone] Encounter Details Date Type Department Care Team (Late Contact Info) Description 09/17/2023 External Device Data STL ABSTRACTION Provider, Abstract [...] (Late Contact Info) Description 08/04/2024 1:00 PM ELEMENTARY SUBSTITUTE TEACHER Appointment [facility] 2nd Nd [address] [place] [address] Aviva Humphries MD [address] [place] [address] Infusion Chair 5, 2nd Floor Hall 08/25/2024 1:00 PM ELEMENTARY SUBSTITUTE TEACHER Office Visit [facility] Gynecologic Oncology Hall [address] [place] [address] Edilia Pettit, CHELY [address] [place] [address] 08/25/2024 1:30 PM ELEMENTARY SUBSTITUTE TEACHER Appointment [facility] 2nd Fl [address] [place] [address] Aviva Humphries MD [address] [place] [address] Infusion Chair 1, 2nd Floor [place] 09/01/2024 10:45 AM ELEMENTARY SUBSTITUTE TEACHER Appointment [facility] Nuclear Medicine [address] [place] [address] [id number] Edilia Pettit, CHELY [address] [facility] [address] [place] [address] documented as of this encounter Visit Diagnoses Not on filedocumented in this encounter Care Teams Land Acquisition Analyst Relationship Specialty Start Date End Date Shilo Soares MD [address] [place] [address] PCP - General Internal Medicine 04/24/23 documented as of this encounter
--- OUTSIDE RECORDS SUMMARY | 2024-07-26 23:57 | XMS_ITS | Encounter Summary ---
Author Organization [employer] Address [address] [place] [address] Care Team Providers Care Global Head Advertiser Solutions Name Role Phone Shilo Soares MD Primary Care Provider [phone] Reason for Visit * Tx/Med Therapy Plan Auth (Routine) - Authorized Specialty Diagnoses / Procedures Referred By Alison gomez Referred To Contact Diagnoses Malignant neoplasm of ovary, unspecified laterality Encounter for antineoplastic chemotherapy Nausea Procedures CT PACLITAXEL INJECTION CT CARBOPLATIN INJECTION CT INJ MVASI [address] PALONOSETRON HCL CT DEXAMETHASONE SODIUM PHOS CT METHYLPREDNISOLONE INJECTION CT DIPHENHYDRAMINE HCL INJECTIO CT INJECTION, FAMOTIDINE, 20 MG TAXOL, CARBO, MVASI, EMEND, ALOXI, DECADRON, SOLU MEDROL, BENADRYL, PEPCID Aviva Humphries MD [address] [facility] [address] [place] [address] [facility] Infusion [place] 2nd Floor [place] [address] [facility] [place] [address] Referral ID Status Reason Start Date Expiration Date V isits Requested Visits Authorized [id number] Authorized 05/20/2023 05/26/2025 99 99 Encounter Details Date Type Department Care Team (Latest Contact Info) Description 09/03/2023 8:20 AM BLADE ALIGNER - 09/03/2023 11:59 PM [facility] Hospital Encounter [facility] Infusion Center 2nd Fl [address] [place] [address] Aviva Humphries MD [address] [facility] [address] [place] [address] Infusion Chair 5, 2nd Floor Hall Discharge Disposition: Home or [...] Sign Reading Time Taken Comments Blood Pressure 141/71 09/03/2023 9:00 AM BLADE ALIGNER Pulse 91 09/03/2023 9:00 AM BLADE ALIGNER Temperature 36.2 ??C (97.2 ??F) 09/03/2023 9:00 AM CS T Respiratory Rate 18 09/03/2023 9:00 AM BLADE ALIGNER Oxygen Saturation - - Inhaled Oxygen Concentration - - Weight 46.7 kg (103 lb) 09/03/2023 9:22 AM BLADE ALIGNER Height - - Body Mass Index 16.62 08/19/2023 12:47 PM BLADE ALIGNER documented in this encounter Medications at Time [...] Progress Notes * Terra Nieves RN - 09/03/2023 9:00 AM CST Pt admitted to infusion center for treatment. Labs reviewed per 2 licensed providers and okay to treat per parameters. Prior to chemotherapy administration: reviewed with pt the goal of chemotherapy regimen, the method of administration, and potential side effects. Taxol/Carbo administered via port without adverse effects. Good blood return obtained from port. Instructed pt to notify physician orgo to ED if fever 100.5 F or higher, chills, or any change in condition. Pt verbalized understanding. Discharged home. E ALIGNER documented in this encounter Plan of Treatment Upcoming Encounters Date Type Department Care Team (Late st Contact Info) Description 08/04/2024 1:00 PM BLADE ALIGNER Appointment [facility] Infusion Center 2nd Fl [address] [place] [address] Aviva Humphries MD [address] [place] [address] Infusion Chair 5, 2nd Floor Hall 08/25/2024 1:00 PM BLADE ALIGNER Office Visit [facility] Gynecologic Oncology Hall [address] [facility] [address] [place] [address] Edilia Pettit, CHELY [address] [facility] [address] [place] [address] 08/25/2024 1:30 PM BLADE ALIGNER Appointment Randy [facility] Infusion Center [facility] [address] [place] [address] Aviva Humphries MD [address] [facility] [address] [place] [address] Infusion Chair 1, 2nd Floor Hall 09/01/2024 10:45 AM BLADE ALIGNER Appointment [facility] Nuclear Medicine [address] [place] [address] [id number] Edilia Pettit, CHELY [address] [address] documented as of this encounter Results * (ABNORMAL) URINALYSIS WITH REFLEX MICROSCOPIC (09/03/2023 8:05 AM BLADE ALIGNER) COLOR UA Pale Yellow Pale to Dark Yellow 09/03/2023 8:[address] [facility] SERVICES [facility] CLARITY UA Clear Clear 09/03/2023 8:38 AM BLADE ALIGNER [facility] LABORATORY SERVICES [facility] SPECIFIC GRAVITY UA 1.006 1.003 - 1.035 09/03/2023 8:[address] [facility] PH UA 5.0 5.0 - 8.0 09/03/2023 8:[address] [facility] LEUKOCYTE ESTERASE UA Negative Negative 09/03/2023 8:[address] [facility] NITRITE UA Negative Negative 09/03/2023 8:38 AM [facility] [employer] [facility] PROTEIN UA Negative Negative 09/03/2023 8:38 AM [facility] [employer] [facility] GLUCOSE UA Negative Negative 09/03/2023 8:[address] [facility] [employer] [facility] KETONES UA Negative Negative 09/03/2023 8:[address] [facility] [employer] [facility] UROBILINOGEN UA Normal <2.0 mg/dL 8:38 AM [facility] [employer] [facility] BILIRUBIN UA Negative Negative 09/03/2023 8:[address] [facility] [employer] [facility] BLOOD UA 1+(A) Negative 09/03/2023 8:38 AM [facility] [employer] [facility] WBC UA 0-2 0 - 2 /hpf 09/03/2023 8:38 AM [facility] [employer] [facility] RBC UA 0-2 0 - 2 /hpf 09/03/2023 8:38 AM [facility] [employer] [facility] BACTERIA UA Negative Negative /hpf 09/03/2023 8:[address] [facility] [employer] [facility] EPITHELIAL CELLS, URINE 0-5 0 - 5 /hpf 09/03/2023 8:38 AM [facility] [employer] [facility] HYALINE CAST 0-2 None Seen, 0-2 /lpf 09/03/2023 8:38 AM [facility] [employer] [facility] Urine URINE SPECIMEN OBTAINED BY CLEAN CATCH PROCEDURE / Unknown Collection / Unknown 09/03/2023 8:05 AM BLADE ALIGNER 09/03/2023 8:29 AM [facility] Aviva Humphries MD URINE ORDERABLES [facility] [employer] [facility] CLIA# [id number] [address] [facility] [address] [place] [address] * MAGNESIUM LEVEL (09/03/2023 8:05 AM [facility]) MAGNESIUM 2.1 1.6 - 2.4 mg/dL 09/03/2023 9:[address] [facility] [employer] [facility] Blood Collection / Unknown 09/03/2023 8:05 AM BLADE ALIGNER 09/03/2023 8:28 AM BLADE ALIGNER Aviva Humphries MD CHEMISTRY ORDERABLES [employer] [facility]# [id number] [address] [facility] [address] [place] [address] * (ABNORMAL) COMPREHENSIVE METABOLIC PANEL (09/03/2023 8:05 AM BLADE ALIGNER) SODIUM 139 136 - 145 mmol/L 09/03/2023 9:04 AM [facility] [employer] [facility] POTASSIUM 4.2 3.5 - 5.0 mmol/L 09/03/2023 9:04 AM [facility] [employer] [facility] CHLORIDE 105 98 - 107 mmol/L 09/03/2023 9:04 AM [facility] [employer] [facility] CO2 25 22 - 29 mmol/L 09/03/2023 9:04 AM [facility] [employer] [facility] CALCIUM 9.2 8.6 - 10.2 mg/dL 09/03/2023 9:04 AM [facility] [employer] [facility] BUN 10 8 - 23 mg/dL 09/03/2023 9:04 AM [facility] [employer] [facility] CREATININE 0.72 0.51 - 0.95 mg/dL 09/03/2023 9:04 AM [facility] [employer] [facility] GLUCOSE 102(H) 74 - 99 mg/dL 09/03/2023 9:04 AM [facility] [employer] [facility] TOTAL PROTEIN 7.0 6.7 - 8.6 g/dL 09/03/2023 9:04 AM [facility] [employer] [facility] ALBUMIN 4.1 3.5 - 5.2 g/dL 09/03/2023 9:04 AM [facility] [employer] [facility] BILIRUBIN TOTAL 0.2 0.2 - 1.1 mg/dL 09/03/2023 9:04 AM [facility] [employer] [facility] ALKALINE PHOSPHATASE 78 35 - 104 U/L 09/03/2023 9:04 AM [facility] [employer] [facility] AST 37(H) <33 U/L 09/03/2023 9:04 AM [facility] ALT 44(H) <34 U/L 09/03/2023 9:04 AM [facility] GFR >60 >=60 mL/min/1.7 3 sq meter 09/03/2023 9:04 AM [facility] Comment:eGFR calculated with 2020 CKD-EPI equation. Vegetarian diet, extremely high or low muscle mass, and may affect results. Cystatin C with Glomerular Filtration Rate is a suitable alternative for these patients. ANION GAP 9 8 - 16 mmol/L 09/03/2023 9:04 AM [facility] Blood Collection / Unknown 09/03/2023 8:05 AM BLADE ALIGNER 09/03/2023 8:28 AM [facility] - 09/03/2023 9:04 AM [facility] Samples containing indocyanine green cause interferences on Total and/or Direct Bilirubin and must not be measured. Aviva Humphries MD CHEMISTRY ORDERABLES [facility]# [id number] 5 [facility] [place] [address] * (ABNORMAL) CBC WITH DIFFERENTIAL (09/03/2023 8:05 AM BLADE ALIGNER) WBC 7.6 4.0 - 9.8 K/uL 09/03/2023 8:30 AM [facility] RBC 3.30(L) 3.90 - 4.90 M/uL 09/03/2023 8:30 AM [facility] HEMOGLOBIN 10.6(L) 11.8 - 14.8 g/dL 09/03/2023 8:30 AM [facility] HEMATOCRIT 32.7(L) 35.5 - 44.0 % 09/03/2023 8:30 AM [facility] MCV 99.1(H) 82.0 - 99.0 fL 09/03/2023 8:30 AM BLADE ALIGNER [employer] [facility] MCH 32.1 27.2 - 32.6 pg 09/03/2023 8:30 AM BLADE ALIGNER [employer] [facility] - [facility] MCHC 32.4 31.5 - 35.5 g/dL 09/03/2023 8:30 AM BLADE ALIGNER [employer] [facility] RDW 18.7(H) 11.5 - 14.5 % 09/03/2023 8:30 AM BLADE ALIGNER [employer] [facility] RDW-STDEV 69.0(H) 37.1 - 48.7 fL 09/03/2023 8:30 AM BLADE ALIGNER [employer] [facility] PLATELETS 324 140 - 350 K/uL 09/03/2023 8:30 AM BLADE ALIGNER [employer] [facility] MPV 9.7 9.3 - 12.4 fL 09/03/2023 8:30 AM BLADE ALIGNER [employer] [facility] NEUTROPHILS 64 % 09/03/2023 8:30 AM BLADE ALIGNER [employer] [facility] LYMPHOCYTES 26 % 09/03/2023 8:30 AM BLADE ALIGNER [employer] [facility] MONOCYTES 7 % 09/03/2023 8:30 AM BLADE ALIGNER [employer] [facility] EOSINOPHILS 3 % 09/03/2023 8:30 AM BLADE ALIGNER [employer] [facility] BASOPHILS 1 % 09/03/2023 8:30 AM BLADE ALIGNER [employer] [facility] IMMATURE GRANULOCYTES 0 % 09/03/2023 8:30 AM BLADE ALIGNER [employer] [facility] NEUTROPHIL ABSOLUTE 4.86 1.90 - 7.00 K/uL 09/03/2023 8:30 AM BLADE ALIGNER [employer] [facility] LYMPHOCYTE ABSOLUTE 1.93 0.70 - 4.50 K/uL 09/03/2023 8:30 AM BLADE ALIGNER [employer] [facility] MONOCYTE ABSOLUTE 0.50 0.10 - 1.30 K/uL 09/03/2023 8:30 AM BLADE ALIGNER [employer] [facility] EOSINOPHIL ABSOLUTE 0.23 0.00 - 0.70 K/uL 09/03/2023 8:30 AM BLADE ALIGNER [employer] [facility] BASOPHILS ABSOLUTE 0.04 0.00 - 0.20 K/uL 09/03/2023 8:30 AM BLADE ALIGNER [facility] LABORATORY [facility] IMMATURE GRANULOCYTES ABSOLUTE 0.02 0.00 - 0.03 K/uL 09/03/2023 8:30 AM BLADE ALIGNER [facility] LABORATORY [facility] Blood Collection / Unknown 09/03/2023 8:05 AM BLADE ALIGNER 09/03/2023 8:28 AM BLADE ALIGNER Aviva Humphries MD HEMATOLOGY ORDERABLE S Performing Organization Address City/[facility]/ZIP Co de Phone Number [facility] LABORATORY [facility] CLIA# [id number] [address] [place] [address] * CANCER ANTIGEN 125 (09/03/2023 8:04 AM BLADE ALIGNER) CA 125 9 <35 U/mL [facility] Comment: This test was performed using the Siemens Chemiluminescent method. Values obtained from different assay methods cannot be used interchangeably. CA 125 levels, regardless of value, should not be interpreted as absolute evidence of the presence or absence of disease. Test Performed at: [facility] [address] [place], [place] ??[address] Radha Perez MD Blood 09/03/2023 8:04 AM BLADE ALIGNER 09/03/2023 8:21 AM BLADE ALIGNER Aviva Humphries MD CHEMISTRY ORDERABLES Performing Organization Address [facility] Co de Phone Number [facility] [phone] [facility] [address] [place] [address] documented in this encounter Visit Diagnoses Diagnosis Malignant neoplasm of ovary, unspecified laterality- Primary documented in this encounter Administered Medications Inactive Administered Medications - up to 3 most recent administrations Medication Order MAR Action Action Date Dose Rate Site CARBOplatin (PARAPLATIN) 450 mg in dextrose 5% 250 mL IVPB 450 mg (Target AUC = 5), IV, ONE TIME ONLY, 1 dose, On Peace 09/03/23 at 1300, Routine New Bag 09/03/2023 1:46 PM BLADE ALIGNER 450 mg 66 0 mL/hr dexAMETHasone (DECADRON) 20 mg in sodium chloride 0.9% 100 mL IVPB (PREMIX) 20 mg, IV, ONE TIME ONLY, 1 dose, On Thu09/03/23 at 0930, Routine Rate Verify 09/03/2023 10:42 AM BLADE ALIGNER 300 mL/hr New Bag 09/03/2023 10:22 AM BLADE ALIGNER 20 mg 300 mL/hr diphenhydrAMINE (BENADRYL) injection 25 mg 25 mg, IV, ONE TIME ONLY, 1 dose, On Thu09/03/23 at 0930, Routine Given 09/03/2023 10:05 AM BLADE ALIGNER 25 mg famotidine PF (PEPCID) 20 mg/2 mL injection 20 mg 20 mg, IV, ONE TIME ONLY, 1 dose, On Thu09/03/23 at 0930, Routine Given 09/03/2023 10:02 AM BLADE ALIGNER 20 mg fosaprepitant (EMEND) 150 mg in sodium chloride 0.9% 150 mL IVPB (PREMIX) 150 mg, IV, ONE TIME ONLY, 1 dose, On Thu09/03/23 at 0930, Routine Rate Verify 09/03/2023 10:42 AM BLADE ALIGNER 450 mL/hr Rate Verify 09/03/2023 10:21 AM BLADE ALIGNER 450 mL/hr New Bag 09/03/2023 10:21 AM BLADE ALIGNER 150 mg 450 mL/hr PACLitaxeL (TAXOL) 271 mg in sodium chloride 0.9% (PVC free) 500 mL IVPB 271 mg (rounded from 271.25 mg = 175 mg/m2 ? 1.55 m2 Treatment Plan BSA from Recorded weight), IV, ONE TIME ONLY, 1 dose, On Thu09/03/23 at 1000, Routine Rate Verify 09/03/2023 10:51 AM BLADE ALIGNER 195.1 mL/hr New Bag 09/03/2023 10:50 AM BLADE ALIGNER 271 mg 195.1 mL/hr palonosetron (ALOXI) 0.25 mg/5 mL injection 0.25 mg 0.25 mg, IV, ONE TIME ONLY, 1 dose, On Thu09/03/23 at 0930, Routine Given 09/03/2023 10:06 AM BLADE ALIGNER 0.25 mg sodium chloride 0.9% infusion IV, at 30-999 mL/hr, CONTINUOUS, Starting on Thu09/03/23 at 0930, Until Thu09/04/23 at 0317, Routine Rate Change 09/03/2023 2:16 PM BLADE ALIGNER 300 mL /hr Rate Change 09/03/2023 1:46 PM BLADE ALIGNER 30 mL/hr Rate Change 09/03/2023 1:44 PM BLADE ALIGNER 300 mL/hr documented in this encounter Care Teams Global Head [employer]iser Solutions Relationship Specialty Start Date End Date Shilo Soares MD [address] [place] [phone] PCP - General Internal Medicine 04/24/23 documented as of this encounter
--- OUTSIDE RECORDS SUMMARY | 2024-07-26 23:57 | XMS_ITS | Encounter Summary ---
Author Organization [facility] Address [address] [place] [address] Care Team Providers Care Sandfill Operator Name Role Phone Shilo Soares MD Primary Care Provider [phone] Encounter Details Date Type Department Care Team [...] Contact Info) Description 08/04/2024 1:00 PM HOUSEKEEPER CAREGIVER Appointment [facility] 2nd Id [address] [place] [address] Aviva Humphries MD [address] [place] [address] Infusion Chair 5, 2nd Floor Hall 08/25/2024 1:00 PM HOUSEKEEPER CAREGIVER Office Visit [facility] Gynecologic Oncology Hall [address] [place] [address] Edilia Pettit, CHELY [address] [facility] [address] [place] [address] 08/25/2024 1:30 PM HOUSEKEEPER CAREGIVER Appointment [facility] 2nd Fl [address] [place] [address] Aviva Humphries MD [address] [facility] [address] [address] [place] [address] Infusion Chair 1, 2nd Floor [place] 09/01/2024 10:45 AM HOUSEKEEPER CAREGIVER Appointment [facility] Nuclear Medicine [address] [place] [address] [id number] Edilia Pettit, CHELY [address] [facility] [address] [place] [address] documented as of this encounter Visit Diagnoses Not on filedocumented in this encounter Care Teams Sandfill Operator Relationship Specialty Start Date End Date Shilo Soares MD [address] [place] [address] PCP - General Internal Medicine 04/24/23 documented as of this encounter
--- OUTSIDE RECORDS SUMMARY | 2024-07-26 23:57 | XMS_ITS | Encounter Summary ---
Author Organization [facility] Address [address] [place] [address] Care Team Providers Care Veteran Appeals Reviewer Name Role Phone Shilo Soares MD Primary Care Provider [phone] Encounter Details Date Type Department Care Team (Late Contact Info) Description 09/13/2023 External Device Data STL ABSTRACTION Provider, Abstract [...] (Late Contact Info) Description 08/04/2024 1:00 PM BIOLOGY TEACHER Appointment [facility] 2nd Mt [address] [place] [address] Aviva Humphries MD [address] [place] [address] Infusion Chair 5, 2nd Floor Hall 08/25/2024 1:00 PM BIOLOGY TEACHER Office Visit [facility] Gynecologic Oncology Hall [address] [place] [address] Edilia Pettit, CHELY [address] [facility] [address] [place] [address] 08/25/2024 1:30 PM BIOLOGY TEACHER Appointment [facility] 2nd Fl [address] [place] [address] Aviva Humphries MD [address] [place] [address] Infusion Chair 1, 2nd Floor [place] 09/01/2024 10:45 AM BIOLOGY TEACHER Appointment [facility] Nuclear Medicine [address] [place] [address] [id number] Edilia Pettit, CHELY [address] [facility] [address] [place] [address] documented as of this encounter Visit Diagnoses Not on filedocumented in this encounter Care Teams Veteran Appeals Reviewer Relationship Specialty Start Date End Date Shilo Soares MD [address] [place] [address] PCP - General Internal Medicine 04/24/23 documented as of this encounter
--- OUTSIDE RECORDS SUMMARY | 2024-07-26 23:57 | XMS_ITS | Encounter Summary ---
Author Organization [facility] Address [address] [place] [address] Care Team Providers Care Aluminum Siding Mechanic Name Role Phone Shilo Soares MD Primary Care Provider [phone] Encounter Details Date Type Department Care Team (Late Contact Info) Description 09/18/2023 External Device Data STL ABSTRACTION Provider, Abstract [...] (Late Contact Info) Description 08/04/2024 1:00 PM INSTRUCTOR PROGRAMMABLE CONTROLLERS Appointment [facility] 2nd Wy [address] [place] [address] Aviva Humphries MD [address] [place] [address] Infusion Chair 5, 2nd Floor Hall 08/25/2024 1:00 PM INSTRUCTOR PROGRAMMABLE CONTROLLERS Office Visit [facility] Gynecologic Oncology Hall [address] [place] [address] Edilia Pettit, CHELY [address] [facility] [address] [place] [address] 08/25/2024 1:30 PM INSTRUCTOR PROGRAMMABLE CONTROLLERS Appointment [facility] 2nd Fl [address] [place] [address] Aviva Humphries MD [address] [facility] [facility] [address] [place] [address] Infusion Chair 1, 2nd Floor [place] 09/01/2024 10:45 AM INSTRUCTOR PROGRAMMABLE CONTROLLERS Appointment [facility] Nuclear Medicine [address] [place] [address] [id number] Edilia Pettit, CHELY [address] [facility] [address] [place] [address] documented as of this encounter Visit Diagnoses Not on filedocumented in this encounter Care Teams Aluminum Siding Mechanic Relationship Specialty Start Date End Date Shilo Soares MD [address] [place] [address] PCP - General Internal Medicine 04/24/23 documented as of this encounter
--- OUTSIDE RECORDS SUMMARY | 2024-07-26 23:57 | XMS_ITS | Encounter Summary ---
Author Organization [facility] Address [address] [place] [address] Care Team Providers Care Tariff Counsel Name Role Phone Shilo Soares MD Primary Care Provider [phone] Encounter Details Date Type Department Care Team [...] Contact Info) Description 08/04/2024 1:00 PM HEALTH PROMOTION MANAGER Appointment [facility] 2nd [place] [address] [place] [address] Aviva Humphries MD [address] [place] [address] Infusion Chair 5, 2nd Floor Hall 08/25/2024 1:00 PM HEALTH PROMOTION MANAGER Office Visit [facility] Gynecologic Oncology Hall [address] [place] [address] Edilia Pettit, CHELY [address] [facility] [address] [place] [phone] 08/25/2024 1:30 PM HEALTH PROMOTION MANAGER Appointment [facility] 2nd Fl [address] [place] [address] Aviva Humphries MD [address] [facility] [address] [facility] [address] [place] [address] Infusion Chair 1, 2nd Floor [place] 09/01/2024 10:45 AM HEALTH PROMOTION MANAGER Appointment [facility] Nuclear Medicine [address] [place] [address] [id number] Edilia Pettit, CHELY [address] [facility] [address] [place] [address] documented as of this encounter Visit Diagnoses Not on filedocumented in this encounter Care Teams Tariff Counsel Relationship Specialty Start Date End Date Shilo Soares MD [address] [place] [address] PCP - General Internal Medicine 04/24/23 documented as of this encounter
--- OUTSIDE RECORDS SUMMARY | 2024-07-26 23:57 | XMS_ITS | Encounter Summary ---
Author Organization [facility] Address [address] [place] [address] Care Team Providers Care Biological Science Aide Name Role Phone Shilo Soares MD Primary Care Provider [phone] Encounter Details Date Type Department Care Team (Late Contact Info) Description 09/22/2023 External Device Data STL ABSTRACTION Provider, Abstract [...] (Late Contact Info) Description 08/04/2024 1:00 PM ENGINE LATHE SET UP OPERATOR TOOL Appointment [facility] 2nd In [address] [place] [address] Aviva Humphries MD [address] [place] [address] Infusion Chair 5, 2nd Floor Hall 08/25/2024 1:00 PM ENGINE LATHE SET UP OPERATOR TOOL Office Visit [facility] Gynecologic Oncology Hall [address] [place] [address] Edilia Pettit, CHELY [address] [place] [address] 08/25/2024 1:30 PM ENGINE LATHE SET UP OPERATOR TOOL Appointment [facility] 2nd Fl [address] [place] [address] Aviva Humphries MD [address] [place] [address] Infusion Chair 1, 2nd Floor [place] 09/01/2024 10:45 AM ENGINE LATHE SET UP OPERATOR TOOL Appointment [facility] Nuclear Medicine [address] [place] [address] [id number] Edilia Pettit, CHELY [address] [facility] [address] [place] [address] documented as of this encounter Visit Diagnoses Not on filedocumented in this encounter Care Teams Biological Science Aide Relationship Specialty Start Date End Date Shilo Soares MD [address] [place] [address] PCP - General Internal Medicine 04/24/23 documented as of this encounter
--- OUTSIDE RECORDS SUMMARY | 2024-07-26 23:57 | XMS_ITS | Encounter Summary ---
Author Organization [facility] Address [address] [place] [address] Care Team Providers Care Carton Catcher Name Role Phone Shilo Soares MD Primary Care Provider [phone] Encounter Details Date Type Department Care Team (Late Contact Info) Description 09/16/2023 External Device Data STL ABSTRACTION Provider, Abstract [...] (Late Contact Info) Description 08/04/2024 1:00 PM TOWER ERECTOR HELPER Appointment [facility] 2nd Ne [address] [place] [address] Aviva Humphries MD [address] [place] [address] Infusion Chair 5, 2nd Floor Hall 08/25/2024 1:00 PM TOWER ERECTOR HELPER Office Visit [facility] Gynecologic Oncology Hall [address] [place] [address] Edilia Pettit, CHELY [address] [place] [phone] 08/25/2024 1:30 PM TOWER ERECTOR HELPER Appointment [facility] 2nd Fl [address] [place] [address] Aviva Humphries MD [address] [place] [address] Infusion Chair 1, 2nd Floor [place] 09/01/2024 10:45 AM TOWER ERECTOR HELPER Appointment [facility] Nuclear Medicine [address] [place] [address] [id number] Edilia Pettit, CHELY [address] [facility] [address] [place] [address] documented as of this encounter Visit Diagnoses Not on filedocumented in this encounter Care Teams Carton Catcher Relationship Specialty Start Date End Date Shilo Soares MD [address] [place] [address] PCP - General Internal Medicine 04/24/23 documented as of this encounter
--- OUTSIDE RECORDS SUMMARY | 2024-07-26 23:58 | XMS_ITS | Encounter Summary ---
Author Organization [facility] Address [address] [place] [address] Care Team Providers Care Drilling Manager Name Role Phone Shilo Soares MD Primary Care Provider [phone] Reason for Visit * Reason Onset Date Comments Erroneous encounter-disregard 08/11/2023 Encounter Details Date Type Department Care Team (Late st Contact Info) Description 08/11/2023 Telephone [facility] Gynecologic Oncology [place] [address] [facility] [address] [place] [address] [place] [address] [place] [address] Erroneous encounter-disregard Social History Tobacco Use Types Packs/Day Years [...] Telephone Encounter - Nae Harrington RN - 08/11/2023 9:37 AM CST Error STER DRIVER documented in this encounter Plan of Treatment Upcoming Encounters Date Type Department Care Team (Late st Contact Info) Description 08/04/2024 1:00 PM DUMPSTER DRIVER Appointment [facility] Center 2nd Fl [address] [place] [address] Aviva Humphries MD [address] [facility] [address] [place] [address] Infusion Chair 5, 2nd Floor Hall 08/25/2024 1:00 PM DUMPSTER DRIVER Office Visit [facility] Gynecologic Oncology [place] [address] [facility] [address] [place] [address] Edilia Pettit, CHELY [address] [address] 08/25/2024 1:30 PM DUMPSTER DRIVER Appointment [facility] Center 2nd Fl [address] [place] [address] Aviva Humphries MD [address] [facility] [address] [facility] [place] [address] Infusion Chair 1, 2nd Floor Hall 09/01/2024 10:45 AM DUMPSTER DRIVER Appointment Randy [facility] Nuclear Medicine [address] [place] [address] [id number] Edilia Pettit, CHELY [address] [address] documented as of this encounter Visit Diagnoses Not on filedocumented in this encounter Care Teams Drilling Manager Relationship Specialty Start Date End Date Shilo Soares MD [address] [place] [address] PCP - General Internal Medicine 04/24/23 documented as of this encounter
--- OUTSIDE RECORDS SUMMARY | 2024-07-26 23:58 | XMS_ITS | Encounter Summary ---
Author Organization [facility] Address [address] [place] [address] Care Team Providers Care Cost Report Clerk Name Role Phone Shilo Soares MD Primary Care Provider [phone] Encounter Details Date Type Department Care Team (Late Contact Info) Description 08/11/2023 External Device Data STL ABSTRACTION Provider, Abstract [...] Info) Description 08/04/2024 1:00 PM SUBSTANCE ABUSE NURSE Appointment [facility] 2nd [place] [address] [place] [address] Aviva Humphries MD [address] [place] [address] Infusion Chair 5, 2nd Floor Hall 08/25/2024 1:00 PM SUBSTANCE ABUSE NURSE Office Visit [facility] Gynecologic Oncology Hall [address] [place] [address] Edilia Pettit, CHELY [address] [place] [address] 08/25/2024 1:30 PM SUBSTANCE ABUSE NURSE Appointment [facility] 2nd Fl [address] [place] [address] Aviva Humphries MD [address] [place] [address] Infusion Chair 1, 2nd Floor [place] 09/01/2024 10:45 AM SUBSTANCE ABUSE NURSE Appointment [facility] Nuclear Medicine [address] [place] [address] [id number] Edilia Pettit, CHELY [address] [facility] [address] [place] [address] documented as of this encounter Visit Diagnoses Not on filedocumented in this encounter Care Teams Cost Report Clerk Relationship Specialty Start Date End Date Shilo Soares MD [address] [place] [address] PCP - General Internal Medicine 04/24/23 documented as of this encounter
--- OUTSIDE RECORDS SUMMARY | 2024-07-26 23:58 | XMS_ITS | Encounter Summary ---
Author Organization [facility] Address [address] [place] [address] Care Team Providers Care Slot Floor Attendant Name Role Phone Shilo Soares MD Primary Care Provider [phone] Reason for Visit * Reason Comments Consult * Eval and Treat (Routine) - Closed Specialty Diagnoses / Procedures Referred By Alison gomez Referred To Contact Genetics Diagnoses Malignant neoplasm of ovary, unspecified laterality Aviva Humphries MD [address] [place] [address] Tali Salcedo [facility] [address] [place] [address] Referral ID Status Reason Start Date Expiration Date Visits Requested Visits Authorized [id number] Closed Performing Department to Schedule 07/09/2023 07/08/2024 1 1 Encounter Details Date Type Department Care Team (Late st Contact Info) Description 08/04/2023 10:00 AM SMALL ANIMAL VETERINARIAN Video Visit [facility] Genetics [place] [address] [place] [address] Tali Salcedo [facility] [address] [place] [address] Malignant neoplasm of ovary, unspecified laterality (Primary Dx) Social History Tobacco Use Types Packs/Day Years Used Date Smoking Tobacco: Every Day Cigarettes 0.5 35 Smokeless Tobacco: Never Tobacco Cessation:Ready to Q uit: Not Asked; Counseling Given: Not Answered Alcohol Use Standard Drinks/Week Comments Not Currently 0 (1 standard drink = 0.6 oz pur e alcohol) 2-3 drinks per year Sex and Gender Information Value Date Recorded Sex Assigned at Not on file Gender Identity Not on file Sexual Orientation Not on file documented as of this encounter Progress Notes * LindaNaiTali Cintron, [facility] - 08/04/2023 11:29 AM CST This encounter was completed via two-way synchronous audio and video communication. Patient expressed understanding that using technology outside of [facility] has higher potential tointroduce privacy risks: Yes Patient's identity confirmed yes Patient gave verbal consent to have these services billed to their insurance and expressed understanding that co-insurance and deductible may apply: yes Narda Mayen is a 62 y.o. individual here for an initial Genetic Counseling consultation given a personal history of ovarian cancer. Narda was unaccompanied to the visit. The following note summarizes their visit with us. Personal cancer history: Papillary serous carcinoma of the ovary, diagnosed on 04/2023 at age 62, currently undergoing neoadjuvant chemotherapy with plans for DANETTE/BSO in two weeks. Obstetrical/gynecological history: Menarche at age 14. First child at age 22. November reports 30 years of oral contraceptive use. November reported one month of hormone replacement therapy at age 54. No fertility treatments reported. Last menstrual period at age 54 due to menopause. Uterus and ovaries intact; DANETTE/BSO scheduled in two weeks. Cancer screening history: Annual mammograms most recent reported 10/2022. Mammograms began at age 39. No breast MRI screening. No history of breast biopsies. Cologuard testing most recently reported in with normal findings. No history of colonoscopy or endoscopy. No history of transvaginal ultrasound reported. CA-125 taken every 3 weeks throughout chemotherapy; most recently CA-125 on 07/09/2023 within normal range. Other history: Current use of cigarettes, about 1/2 pack a day for 35 years. Occasional consumptionof alcohol reported, about 2-3 drinks per year. No surgical removal of colon, thyroid, breast tissue, or kidney. Genetic Testing: November reports her daughter tested negative for the BRCA1/2 gene; this report was not supplied at the time of the visit. No history of germline cancer genetic testing for patient or relatives. No other health concerns reported at this time. Past Medical History: Diagnosis Date Asthma Dyspnea on exertion Emphysema of lung History of chemotherapy Hyperlipidemia Malignant neoplasm 04/2023 ovarian Past Surgical History: Procedure Laterality Date HX BUNIONECTOMY Bilateral 2010 HX SECTION 1982,1985,1994 HX PORTACATH PLACEMENT Right 2022 Social History Socioeconomic History Marital status: Spouse name: Not on file Number of children: 3 Years of education: Not on file Highest education level: Not on file Occupational History Not on file Tobacco Use Smoking status: Every Day Packs/day: 0.50 Years: 35.00 Additional pack years: 0.00 Total pack years: 17.50 Types: Cigarettes Smokeless tobacco: Never Vaping Use Vaping Use: Never used Substance and Sexual Activity Alcohol use: Not Currently Comment: 2-3 drinks per year Drug use: Never Sexual activity: Never Other Topics Concern Not on file Social History Narrative Not on file Social Determinants of Health Financial Resource Strain: Not on file Food Insecurity: Not on file Transportation Needs: Not on file Social Connections: Not on file Intimate Partner Violence: Not on file Housing Stability: Not on file Family History: A three-generation pedigree was obtained and analyzed. There is no history/knowledge of consanguinity. No reported Ashkenazi Alevism ancestry. Relevant cancer history is noted below: Relationship Cancer Age Notes Father Lung - smoked Early 60's at 70 from heart attack Paternal grandmother Skin - sun exposure - in 80's from heart attack Other family history: Sister with diabetes and many allergies; she had a DANETTE in her 50's. Mother at 46 from a brain aneurysm. Two maternal aunts in their 60-70's and one aunt in her 70-80's; all of their and their children's health histories are unknown. One maternal cousin with learning difficulties. One maternal uncle due to an accident in childhood. One maternal uncle in his 70's due to a heart attack. Unknown health history for maternal grandparents. Paternal aunt in mid 70's from a heart attack. Paternal uncle in 70-80's from old age. Paternal-maternal half uncle in 70-80's from a heart attack. One of this uncle's grandchildren was born with a cleft lip/palate. Paternal grandfather in 80's from complications of pneumonia. No other significant history of differences, learning difficulty, multiple miscarriages, stillbirth, early or sudden deaths. Please see Pedigree in media for complete details. Genetic counseling: Narda was counseled regarding their personal history of cancer. Narda understands that while all cancer is inherently due to genetic changes, the vast majority occurs sporadically due to genetic changes in a few cells of the body as a result of environmental exposures, etc. About 5-10% of cancer isdue to inherited genetic changes that are passed down in a family. There are certain criteria that help geneticists and genetic counselors identify families at increased risk for the hereditary formsof cancer. These criteria include: young age of onset, multiple family members affected by the sameor related cancers, multiple generations represented by the affected family members, rare cancers, b ilateral cancers, and multiple primary cancers diagnosed in one family member. Narda's personal history fit the following criteria: rare cancers. When an individual has a personal history that meets this criteria, genetic testing can be helpful in determining if a hereditary cancer syndrome is responsible. If a hereditary cancer syndrome is present in a patient, this can affect the course of recommended cancer surveillance and treatment. Genetic testing can be helpful in determining other cancer risks and screenings for the patient as wellas for family members. Further, if a genetic variant is identified in the patient, at risk family members could pursue genetic testing early to help determine if they too are at increased risk for certain cancers in their lifetime. Narda understands that genetic testing of this nature can yield one of three outcomes: A positive result: A positive result from this testing would tell us that Narda harbors a genetic change that they were born with that increases their likelihood of developing certain types of cancerduring their lifetime. Individuals with a pathogenic (disease-causing) variant could be at an increased chance for other types of cancer outside of those noted in the family history. A positive genetic testing result can also help to guide Narda 's screening recommendations for the future as well as to guide recommendations for other prophylactic treatments such as bilateral mastectomy, tamoxifentherapy, oophorectomy etc. These prophylactic treatments can help to reduce (but not eliminate) thechances for these other cancers to develop. A negative result: A negative result does not mean that there is no genetic link to Narda 's personal history. Since the history is still significant, a negative result could just mean that our technology was not able to pickup rare variants in these genes or that there is a responsible change in another gene that we did not look at in this test. Other less common genes may have available testingand there is a potential for undiscovered genes to have an affect on cancer predisposition. In the event of a negative result, recommendations for screening and management are based on personal and family history. A variant of unknown significance (VUS): Occasionally, the lab finds a change in one of these genes, but is unable to know if the change is entirely pathogenic, or harmful. This may be due to the variant never being seen before or little information being available about others who are reported to have the variant. Labs typically continue to gather information about VUSs with the hope of being able to classify them as benign or pathogenic in the future. Generally speaking, we approach recommendations for individuals with a VUS result as if the testing was negative. That means that recommendations are made based on personal and family history. The genetic information non-discrimination act (HOLLIE) is a law prevents employers and health insurers from discriminating against individuals based on their genetic information, such as family history or genetic testing results. These protections do not extend to life insurance, disability insurance, or long-term care insurance. Some people who are asymptomatic may choose to take out these policies prior to getting genetic testing to ensure their coverage is not affected. Genes included in testing are based on family history and patient preference. Some patients opt to have testing only for hereditary cancer conditions which may be consistent with family history. Other patients express interest in comprehensive hereditary cancer testing. Both options are available. We discussed available genetic testing for hereditary cancer. The patient was offered the [employer] 52gene panel or 88 gene panel. We discussed that patient has two options for hereditary cancer panels: a common hereditary cancer panel or a larger comprehensive hereditary cancer panel. We discussed the limitations and benefits of each panel. The patient is aware that when larger panels are run, variants of uncertain significance are more likely. There are also newer genes on larger panels that may not be as well defined. At the conclusion of the discussion Narda chose the [employer] expanded 88 gene panel. The [employer] expanded panel contains 88 genes. This panel includes: AIP, BRCA2, DICER1, KIT, NBN, QLIXJ0V, SAMD9, SRP72 ALKBRIP1, EPCAM, LZTR1, NF1, PTCH1, SAMD9L, STK11, ANKRD26, CDC73, ETV6, MAX, NF2, PTEN, SDHA, SUFU, APC, CDH1, FANCC, MEN1, NTHL1, RAD51C, SDHAF2, TERC RODRIGUEZ, CDK4, FANCM, MET, PALB2, RAD51D, SDHB, TERT AXIN2, CDKN1B, FH, MITF, PDGFRA, RB1, SDHC, UPHX439, BAP1, CDKN2A, FLCN, MLH1, PHOX2B, RECQL, SDHD, TP53, BARD1, CEBPA, GATA2, MSH2, PMS2, RET, SMAD4, TSC1, BLM, CHEK2, GALNT12, MSH3, POLD1, RNF43, SMARCA4, TSC2, BMPR1A, CTNNA1, GREM1 (SCG5), MSH6, POLE, RPS20, SMARCB1, VHL, BRCA1, DDX41, HOXB13, MUTYH, POT1, RUNX1, SMARCE1, and WT1. The patient completed the [employer] financial assistance form during the visit and estimated out of pocket cost was reported to be no more than $100. After a patient's sample is sent to the genetic testing laboratory, [facility], a benefits investigation will be performed after the sample is received. If the patient is expected to have an out of pocket cost for testing over $100, they will be contacted. If the patient's expected out of pocket cost is too high, the lab can provide alternative options for billing. Again, Narda understands that the results of this testing are directly relevant to their medical management as well as to the medical management and screening recommendations of their family members.Thus, if results are positive, we will recommend further genetic counseling to discuss specific risks and recommendations based on the results. Plan: 1. Follow directions on genetic testing kit and send via mail to laboratory. 2. Will call to discuss results 3-6 weeks after lab receives sample. We appreciate the opportunity to participate in November???s care. If you have any questions or concerns, please do not hesitate to contact us at: [phone]. Sincerely, Prateek Salcedo MS, [facility] Genetic Counselor [facility] [phone] On the day of the visit, I spent 48 minutes providing care to this patient including Obtaining and/or reviewing separately obtained history, Performing a medically appropriate examination and/or evaluation, Counseling and educating the patient/family/caregiver, and Documenting clinical information in the medical record. L ANIMAL VETERINARIAN documented in this encounter Miscellaneous Notes * Patient Instructions - Tali Salcedo [facility] - 08/04/2023 11:43 AM CST Follow directions on genetic testing kit and send via mail to laboratory. 1) Do not eat, drink (including water), or smoke for 30 minutes prior to the test. 2) Label sample with requested information do not need to include MRN. 3) Send sample within 48 hours of swabbing your cheek. L ANIMAL VETERINARIAN documented in this encounter Plan of Treatment Upcoming Encounters Date Type Department Care Team (Late st Contact Info) Description 08/04/2024 1:00 PM SMALL ANIMAL VETERINARIAN Appointment [facility] Infusion Center 2nd Fl [address] [place] [phone] Aviva Humphries MD [address] [place] [address] Infusion Chair 5, 2nd Floor Hall 08/25/2024 1:00 PM SMALL ANIMAL VETERINARIAN Office Visit [facility] Gynecologic Oncology Hall [address] [facility] [address] [facility] [place] [address] Edilia Pettit NP [address] [facility] [address] [place] [phone] 08/25/2024 1:30 PM SMALL ANIMAL VETERINARIAN Appointment [facility] Infusion Center 2nd Fl [address] [place] [phone] Aviva Humphries MD [address] [place] [phone] Infusion Chair 1, 2nd Floor Hall 09/01/2024 10:45 AM SMALL ANIMAL VETERINARIAN Appointment [facility] [address] [place] [address] [id number] Edilia Pettit, CHELY [address] [place] [address] documented as of this encounter Procedures Procedure Name Priority Date/Time Associated Diagnosis Comments [facility] Routine 08/27/2023 9:11 PM SMALL ANIMAL VETERINARIAN Malignant neoplasm of ovary, unspecified laterality documented in this encounter Results * [facility] (08/27/2023 9:11 PM SMALL ANIMAL VETERINARIAN) [facility] [email or web address] 08/27/2023 9:11 PM SMALL ANIMAL VETERINARIAN [facility] Comment:[facility] link Saliva specimen (specimen) 08/27/2023 4:17 PM SMALL ANIMAL VETERINARIAN Aviva Humphries MD MOLECULAR ORDERABLES [facility] [address] [facility], [address] [place], [place] [id number] [place] [address] [facility] [address] [facility] [place] [address] documented in this encounter Visit Diagnoses Diagnosis Malignant neoplasm of ovary, unspecified laterality- Primary documented in this encounter Care Teams Slot Floor Attendant Relationship Specialty Start Date End Date Shilo Soares MD [address] [place] [phone] PCP - General Internal Medicine 04/24/23 documented as of this encounter
--- OUTSIDE RECORDS SUMMARY | 2024-07-26 23:58 | XMS_ITS | Encounter Summary ---
Author Organization [facility] Address [address] [place] [address] Care Team Providers Care Obstetrics Technician Name Role Phone Shilo Soares MD Primary Care Provider [phone] Encounter Details Date Type Department Care Team (Late Contact Info) Description 07/31/2023 Abstract [facility] Gynecologic Oncology Hall [address] [place] [address] Aviva Humphries MD [address] [facility] [place] [address] Social History Tobacco Use Types Packs/Day Years Used Date Smoking Tobacco: Every Day Cigarettes 0.5 35 Smokeless Tobacco: Never Alcohol Use Standard Drinks/Week Comments Not Currently 0 (1 standard drink = 0.6 oz pur e alcohol) socially Sex and Gender Information Value Date Recorded Sex Assigned at Not on file Gender Identity Not on file Sexual Orientation Not on file documented as of this encounter Plan of Treatment Upcoming Encounters Date Type Department Care Team (Late Contact Info) Description 08/04/2024 1:00 PM PIPE STEM REPAIRER [facility]ointment [facility] Center 2nd Fl [address] [place] [address] Aviva Humphries MD [address] [place] [address] Infusion Chair 5, 2nd Floor [place] 08/25/2024 1:00 PM PIPE STEM REPAIRER Office Visit [facility] Gynecologic Oncology Hall [address] [place] [address] Edilia Pettit NP [address] [place] [address] 08/25/2024 1:30 PM PIPE STEM REPAIRER Appointment [facility] Infusion Center 2nd Fl [address] [place] [address] Aviva Humphries MD [address] [facility] [address] [facility] [address] [place] [address] Infusion Chair 1, 2nd Floor [place] 09/01/2024 10:45 AM PIPE STEM REPAIRER Appointment [facility] Nuclear Medicine [address] [place] [address] [phone] Edilia Pettit, CHELY [address] [facility] [address] [place] [address] documented as of this encounter Visit Diagnoses Not on filedocumented in this encounter Care Teams Obstetrics Technician Relationship Specialty Start Date End Date Shilo Soares MD [address] [place] [phone] PCP - General Internal Medicine 04/24/23 documented as of this encounter
--- OUTSIDE RECORDS SUMMARY | 2024-07-26 23:58 | XMS_ITS | Encounter Summary ---
Author Organization [facility] Address [address] [place] [address] Care Team Providers Care Labor Relations Or Personnel Negotiator Name Role Phone Shilo Soares MD Primary Care Provider [phone] Encounter Details Date Type Department Care Team (Late Contact Info) Description 08/10/2023 External Device Data ST[facility] ABSTRACTION Provider, Abstract [...] (Late Contact Info) Description 08/04/2024 1:00 PM DORMITORY KEEPER Appointment [facility] Infusion Center 2nd Nv [address] [place] [address] Aviva Humphries MD [address] [place] [address] Infusion Chair 5, 2nd Floor Hall 08/25/2024 1:00 PM DORMITORY KEEPER Office Visit [facility] Gynecologic Oncology Hall [address] [place] [address] Edilia Pettit, CHELY [address] [address] [place] [phone] 08/25/2024 1:30 PM DORMITORY KEEPER Appointment [facility] Infusion Center 2nd Fl [address] [place] [address] Aviva Humphries MD [address] [facility] [address] [place] [address] Infusion Chair 1, 2nd Floor [place] 09/01/2024 10:45 AM DORMITORY KEEPER Appointment [facility] Nuclear Medicine [address] [place] [phone] Edilia Pettit, CHELY [address] [facility] [address] [place] [address] documented as of this encounter Visit Diagnoses Not on filedocumented in this encounter Care Teams Labor Relations Or Personnel Negotiator Relationship Specialty Start Date End Date Shilo Soares MD [address] [place] [address] PCP - General Internal Medicine 04/24/23 documented as of this encounter
--- OUTSIDE RECORDS SUMMARY | 2024-07-26 23:58 | XMS_ITS | Encounter Summary ---
Author Organization [facility] Address [address] [place] [address] Care Team Providers Care Supervisor Veneer Name Role Phone Shilo Soares MD Primary Care Provider [phone] Reason for Visit * Auth/Cert (Routine) Specialty Diagnoses / Procedures Referred By Alison gomez Referred To Contact Perioperative Diagnoses Malignant neoplasm of ovary, unspecified laterality Drug-induced androgenic alopecia Procedures UT TOTAL ABDOMINAL HYSTERECT W/WO RMVL TUBE OVARY UT LAPAROSCOPY W/RMVL ADNEXAL STRUCTURES UT BSO W/OMENTECTOMY DANETTE&RAD DEBULKING DISSECTION HYSTERECTOMY ABDOMINAL TOTAL SALPINGO-OOPHORECTOMY LAPAROSCOPIC Aviva Humphries MD [address] [facility] [address] [facility] [place] [address] [facility] Or [address] [place] [address] Referral ID Status Reason Start Date Expiration Date Visits Re quested Visits Authorized [id number] 1 1 Encounter Details Date Type Department Care Team (Late st Contact Info) Description 08/06/2023 3:35 PM ASTROCHEMIST - 08/06/2023 7:55 PM ASTROCHEMIST Surgery [facility] Operating Room [address] [place] [address] Aviva Humphries MD [address] [facility] [address] [place] [address] HYSTERECTOMY ABDOMINAL TOTAL Surgery Details Date/Time Status Location OR Service Patient Class Case Class Case Type Trauma Case? 08/06/2023 3:35 PM Posted [facility] OR MAIN OR 09 Gynecology Surgical OP/Extended Care Elective No Panel 1 Procedure LRB Anes Op Region Wound Class Comments HYSTERECTOMY ABDOMINAL TOTAL N/A General Abdomen Clean-I SALPINGO-OOPHORECTOMY LAPAROSCOPIC N/A General Abdomen Clean-I DANETTE BSO OMENTECTOMY & ANY OTHERS, PLEASE ADD A LAPAROSCOPE URETEROLYSIS Bilateral General Ureter Clean-I BLADDER REPAIR N/A Monitored Anesthetic Care Bladder Clean Contaminat ed-II CYSTOURETHROSCOPY N/A General Bladder Clean Contaminat ed-II OMENTECTOMY N/A General Abdomen Clean Contaminat ed-II DIAPHRAGM BIOPSY N/A General Chest Clean Contaminat ed-II INGUINAL OR FEMORAL LYMPH NODE BIOPSY/EXCISION Right Local Groin Clean Contaminat ed-II Surgeon Surgeon Role Service Panel Aviva Humphries MD Primary Gynecology 1 documented in this encounter Social History Tobacco Use Types Packs/Day Years [...] Sign Reading Time Taken Comments Blood Pressure 144/75 08/06/2023 1:56 PM ASTROCHEMIST Pulse 96 08/06/2023 1:56 PM ASTROCHEMIST Temperature 36.6 ??C (97.8 ??F) 08/06/2023 10:[address] Respiratory Rate 18 08/06/2023 10:50 AM ASTROCHEMIST Oxygen Saturation 96% 08/06/2023 1:56 PM ASTROCHEMIST Inhaled Oxygen Concentration - - Weight 46.7 kg (103 lb) 08/06/2023 10:50 AM ASTROCHEMIST Height 167.6 cm (5' 6 ) 08/06/2023 10:50 AM ASTROCHEMIST Body Mass Index 16.62 08/07/2023 1:47 AM ASTROCHEMIST documented in this encounter Discharge Summaries * Aviva Humphries MD - 08/12/2023 3:10 PM CST Images from the original note were not included. [facility] [address] [place] [address] Office: Office [address] [place] [address] Office: Renal US: IMPRESSION: 1. Normal renal ultrasound without evidence of hydronephrosis. FeNa 0.5%, pre-renal Repeat Cr 1.22 Will discharge to home; will continue to follow Cr outpatient. Aviva Humphries MD [facility] Gynecologic Oncology Gynecology Oncology Discharge Summary November Tiarra 08/11/2023 2:13 PM [id number] Admit Date: 08/06/2023 Discharge Date: 08/12/2023 Discharge Time: 1515 Hedis Abstractor: Aviva Humphries MD Surgery:Procedure(s): HYSTERECTOMY ABDOMINAL TOTAL SALPINGO-OOPHORECTOMY LAPAROSCOPIC URETEROLYSIS BLADDER REPAIR CYSTOURETHROSCOPY OMENTECTOMY DIAPHRAGM BIOPSY INGUINAL OR FEMORAL LYMPH NODE BIOPSY/EXCISION Hospital Course: The patient was admitted to [facility] on 08/06/2023 for a scheduleddiagnostic laparoscopy, total abdominal hysterectomy bilateral salpingo-oophorectomy, omentectomy, tumor debulking, right inguinal lymph node dissection. Bladder injury noted during surgery and repaired, and evaluated with cystoscopy. The patient tolerated the procedure well and on POD#0 was transferred to Oncology in stable condition. On POD#1 NG tube was removed after being maintained post-op due to extensive dissection around the stomach. On POD#2 she was started on CLD, advanced to FLD on POD#3, and general diet on POD#4 which she is tolerating well. She is ambulating and working with PT/OT appropriately. On POD#5 cystogram showed no extravasation of contrast from urinary bladder and nieto catheter was removed. On POD#5 patient spontaneously voided without difficulty. On POD#6, patient was noted to have rising creatinine. She received a fluid bolus. Labs were consistent with prerenal CARLEEN. Renal ultrasound was normal. Repeat BMP was stable. She will have repeat labs tomorrow as outpatient. On POD#6, having met post-operative milestones, she was discharged home. Nutritional status and in-house recommendations: Current Diet and/or Nutritional Supplementation ordered: DIET SUPPLEMENT GEN ADULT Daily; Complete Oral Supplement, DIET GENERAL Effective Now Nutrition Diagnosis: Severe protein-calorie malnutrition (08/07/23 1600) Subcutaneous Fat Loss Assessment: Severe fat loss (08/07/23 1600) Muscle Wasting Assessment: Severe(08/07/231599) Percentage of Energy: < 75% for > or equal to 1 month (severe-chronic) (08/07/23 1600) Percentage of Weight Loss: (says wt fluctuated, think loss with ascites/paracentesis and now surgery) (08/07/231599) Malnutrition Recommendations: Oral supplements;See dietitian recommendations in Care Plan note (08/07/231599) Problems: Active Hospital Problems Diagnosis Bladder injury Drug-induced androgenic alopecia Protein-calorie malnutrition, severe Ovarian cancer Resolved Hospital Problems No resolved problems to display. RESEARCH PHYSICIST meds: Facility-Administered Medications Prior to Admission Medication Dose Route Frequency Provider Last Rate Last Admin bisacodyL (DULCOLAX) rectal suppository 10 mg 10 mg Rectal daily Aviva Humphries MD Medications Prior to Admission Medication Sig Dispense Refill Last Dose loratadine (CLARITIN) 10 mg tablet Take 10 mg by mouth daily. 08/06/2023 at 0800 pyridoxine HCl, vitamin B6, (PYRIDOXINE, VITAMIN B6, ORAL) Take by mouth. 08/06/2023 at 0800 docusate sodium (COLACE ORAL) Take by mouth. Advair Diskus 250-50 mcg/dose disk inhaler 1 Puff by See Admin Instructions route see administration instructions. 08/06/2023 at 0800 ondansetron (Zofran) 8 mg Tablet Take 1 Tablet (8 mg) by mouth every 8 hours as needed for Nausea. 30 Tablet 3 prochlorperazine maleate (COMPAZINE) 10 mg tablet Take 1 Tablet (10 mg) by mouth every 6 hours as needed for Nausea/Emesis. 30 Tablet 3 albuterol sulfate HFA 90 mcg/actuation aerosol inhaler Take 1 Puff by inhalation every 6 hours as needed. 08/05/2023 at 2000 atorvastatin (LIPITOR) 20 mg tablet Take 20 mg by mouth daily at bedtime. 08/05/2023 at 2000 fluticasone propionate (FLONASE) 50 mcg/spray [place], Suspension nasal inhaler Administer 2 Sprays in each nostril daily. 08/06/2023 at 0800 omega-3 fatty acids-fish oil 300-1,000 mg Capsule Take 2 Capsules by mouth daily. cholecalciferol, vitamin D3, 350 mcg (14,000 unit) Wafer Take by mouth. 07/30/2023 Miscellaneous Medical Supply Cranial prosthesis DX: L64.0 1 Each 0 Unknown lidocaine-prilocaine (EMLA) 2.5-2.5 % Cream Apply a thin layer over port site 30-45 minutes prior to chemotherapy. 30 Gram 0 Unknown DC meds: Medication List START taking these medications Eliquis 2.5 mg tablet Take 1 Tablet (2.5 mg) by mouth 2 times daily for 21 days. Signed by: Monica Calhoun MD Quantity: 42 Tablet Refills: 0 Generic drug: apixaban oxyCODONE 5 mg tablet Commonly known as: ROXICODONE Take 1 Tablet (5 mg) by mouth every 4 hours as needed for Pain. Max Daily Amount: 6 tablets (30 mg) Signed by: Monica Calhoun MD Quantity: 10 Tablet Refills: 0 CONTINUE taking these medications Advair Diskus 250-50 mcg/dose disk inhaler 1 Puff by See Admin Instructions route see administration instructions. Refills: 0 Generic drug: fluticasone propion-salmeteroL albuterol sulfate 90 mcg/Actuation inhaler Take 1 Puff by inhalation every 6 hours as needed. Refills: 0 atorvastatin 20 mg tablet Commonly known as: LIPITOR Take 20 mg by mouth daily at bedtime. Refills: 0 cholecalciferol (vitamin D3) 350 mcg (14,000 unit) Wafer Take by mouth. Refills: 0 COLACE ORAL Take by mouth. Refills: 0 fluticasone propionate 50 mcg/spray [place], Suspension nasal inhaler Commonly known as: FLONASE Administer 2 Sprays in each nostril daily. Refills: 0 lidocaine-prilocaine 2.5-2.5 % Cream Commonly known as: EMLA Apply a thin layer over port site 30-45 minutes prior to chemotherapy. Signed by: Dr. Aviva Humphries MD Quantity: 30 Gram Refills: 0 loratadine 10 mg tablet Commonly known as: CLARITIN Take 10 mg by mouth daily. Refills: 0 Miscellaneous Medical Supply Cranial prosthesis DX: L64.0 Signed by: Dr. Barb Hyde MD Quantity: 1 Each Refills: 0 omega-3 fatty acids-fish oil 300-1,000 mg Capsule Take 2 Capsules by mouth daily. Refills: 0 ondansetron 8 mg Tablet Commonly known as: Zofran Take 1 Tablet (8 mg) by mouth every 8 hours as needed for Nausea. Signed by: Dr. Aviva Humphries MD Quantity: 30 Tablet Refills: 3 prochlorperazine maleate 10 mg tablet Commonly known as: COMPAZINE Take 1 Tablet (10 mg) by mouth every 6 hours as needed for Nausea/Emesis. Signed by: Dr. Aviva Humphries MD Quantity: 30 Tablet Refills: 3 PYRIDOXINE (VITAMIN B6) ORAL Take by mouth. Refills: 0 Where to Get Your Medications These medications were sent to [address] [address] Hours: Open Daily 8 am - 12 am (midnight) Eliquis 2.5 mg tablet oxyCODONE 5 mg tablet Plan: D/C Instructions, post-op follow up, and patient's questions answered. Discharge condition: improving. Activity: pelvic rest; activity as tolerated. Diet: regular Wound care: Keep wound clean and dry Primary Emergency Contact: Extended Emergency Contact Information Primary Emergency Contact: Ewa Dunn Mobile Relation: Daughter Preferred language: [place] [employer] Laborer needed? No Reviewed D/C Medications. Prescriptions provided: yes Follow-up appointment in 1 week. OCHEMIST documented in this encounter Discharge Instructions * Discharge Instructions* Nelly Quiroz MD - 08/12/2023 3:08 PM ASTROCHEMIST Images from the original note were not included. [facility] [address] [place] [address] [address] [place] [address] Office: Office Postoperative Discharge Instructions Activity: You may resume your normal activities as tolerated. Walking, stairs, and showers are okay. Restrictions: No driving for 1 week or while taking narcotics. No swimming or tubs. Pelvic rest (nothing in the vagina) for 2 months. Diet: You may eat your regular diet. Pain: You may take acetaminophen (Tylenol) (1000 mg every 6 hrs) and ibuprofen (Aleve, Motrin) (400-600 mg every 6 hrs) as needed for pain. Take both acetaminophen and ibuprofen at the same time for best effect. Do not take more than 4000 mg of Tylenol in 24 hrs. If your pain is not controlled with ibuprofen and acetaminophen, you may take narcotics (oxycodone)as needed to control your pain. Constipation: Use [id number] stool softeners to prevent constipation which is common after surgery and while taking narcotics. You may try colace, Metamucil, milk of magnesia, and Miralax. Contact the office: Call the office with fever (temperature above 100.3 F), bleeding that is more than light spotting, pus or spreading redness from incision, new chest pain or shortness of breath, increasing abdominal size, increased swelling of feet or legs (especially if one-sided). Call 911 or go to nearest ER if unable to contact us or you feel symptoms require urgent medical attention. OCHEMIST * Discharge Instr - Diet* Sena Seay, RD - 08/09/2023 3:29 PM ASTROCHEMIST If you are an oncology patient being treated at [facility], there is a free outpatient dietitian available to you. Contact the Dietitian at [phone] to about resources available to you throughout treatment and recovery. If you have any nutrition-related concerns, questions, or are inter ested in speaking one-on-one about your diet, please feel free to reach out for a consultation witha Registered Dietitian. These services are available at no cost to current and former oncology and hematology patients. OCHEMIST documented in this encounter Medications at Time [...] bedtime. 02/26/2021 fluticasone propionate (FLONASE) 50 mcg/spray [place], Suspension nasal inhaler Administer 2 Sprays [...] as of this encounter Progress Notes * Yolanda Marinelli RN - 08/12/2023 4:09 PM CST Narda Mayen will be discharged via wheelchair to home. Narda Mayen is accompanied by family member(s) and will be transported via private vehicle. Scripts was sent with patient. Discharge instructions given to patient and daughter. IV dc without complications. No s/s of distress upon discharge. OCHEMIST * Aviva Humphries MD - 08/12/2023 11:33 AM CST Attending Attestation 08/12/23 I have seen and examined the patient Gynecologic Oncology Progress Note Subjective: The patient was seen and examined at bedside this AM Feeling well Meeting post op milestones Physical Examination: BP 131/74 (BP Location: Left arm, Patient Position (BP): Supine) Pulse 90 Temp 97.7 ??F (36.5 ??C) (Oral) Resp 18 Ht 5' 6 (1.676 m) Wt 46.7 kg (103 lb) SpO2 98% No BMI 16.62 kg/m?? Intake/Output Summary (Last 24 hours) at 08/12/20232013 Last data filed at 08/12/2023 0918 Gross per 24 hour Intake -- Output 75 ml Net -75 ml Gen: A&O, NAD CV: warm and well perfused Resp: no increased work of breathing room air Abd: soft, appropriately tender to palpation, mild tympany; incisions clean dry and intact with skin glue, slight bruising Skin: warm and dry Ext: no edema Neuro: cranial nerves grossly intact Psych: appropriate mood and affect Lab Review: I have reviewed her labs Assessment: 62yo with Stage IVB HSGSOC s/p NACT x3 now POD#6 s/p IDS of diagnostic laparoscopy, DANETTE-BSO complete omentectomy and tumor debulking with repair of bladder injury. Recovering appropriately. Bladder injury s/p repair CARLEEN Severe protein-calorie malnutrition Plan: Pain control as needed Diet as tolerated, supplemental nutrition Bowel regimen Voiding after nieto removal CARLEEN--discussed additional work up to include renal US, FeNa, repeat Cr and IVFB ---she strongly desires discharge home if no significant findings found on work up; she will repeatlabs tomorrow and we will continue to trend as an outpatient; she will increase PO hydration Eliquis for DVT ppx Appropriate for discharge to home following above work up Nutrition Diagnosis: Severe protein-calorie malnutrition (08/07/23 1600) Aviva Humphries MD 08/12/23 Gynecologic Oncology Progress Note Subjective: The patient was seen and examined at bedside this AM. No overnight events overnight Feeling well, pain controlled Passing flatus Nieto dc'd yesterday after cystogram, is voiding spontaneously Ambulating Strongly desires discharge today Procedures: Procedure(s): HYSTERECTOMY ABDOMINAL TOTAL SALPINGO-OOPHORECTOMY LAPAROSCOPIC URETEROLYSIS BLADDER REPAIR CYSTOURETHROSCOPY OMENTECTOMY DIAPHRAGM BIOPSY INGUINAL OR FEMORAL LYMPH NODE BIOPSY/EXCISION Intake/Output 08/06/23 0700 - 08/07/23 0659 08/07/23 0700 - 08/08/23 0659 08/08/23 0700 - 08/09/23 0659 8660-5133 6644-7868 Total 8092-4439 2567-2758 Total 4973-4886 2234-2283 Total Intake I.V. 156 2300 2456 -- 0 0 -- -- -- Total Amount Infused (mL) -- -- -- -- 0 0 -- -- -- Volume (mL) (lactated ringers infusion) -- 2300 2300 -- -- -- -- -- -- Volume (mL) (clindamycin (CLEOCIN) 900 mg in dextrose 5% 50 mL IVPB) 50 -- 50 -- -- -- -- -- -- Volume (mL) (gentamicin (GARAMYCIN) 240 mg in sodium chloride 0.9% 100 mL EXTENDED INTERVAL IVPB) 106 -- 106 -- -- -- -- -- -- Total Intake 156 2300 2456 -- 0 0 -- -- -- Output Urine -- 1475 1475 -- 2475 2475 2650 1300 3950 IntraOp Urine Output (mL) -- 600 600 -- -- -- -- -- -- Urine Catheter Output (mL) ([REMOVED] Indwelling Urethral Catheter 08/06/231931 Indwelling double lumen catheter 16 Fr) -- 875 875 -- 2475 2475 2650 1300 3950 Emesis -- -- -- 0 -- 0 -- -- -- Emesis (mL) -- -- -- 0 -- 0 -- -- -- Drains -- 100 100 -- -- -- -- -- -- NG/OG Output (mL) ([REMOVED] Naso/Oral Tube 08/06/232022 Dar belen;nasogastric 18 Fr right nostril) -- 100 100 -- -- -- -- -- -- Other -- 300 300 -- -- -- -- -- -- Est Blood Loss (mL) -- 300 300 -- -- -- -- -- -- Total Output -- 1875 1875 0 2475 2475 2650 1300 3950 Net I/O 156 425 581 0 -2475 -2475 -2650 -1300 -3950 08/09/23699 - 08/10/23 0659 08/10/23699 - 08/11/23 0659 08/11/23699 - 08/12/23 0659 3171-9455 2221-5682 Total 6098-4190 Total 4346-9416 2236-5449 Total Intake Total Intake -- -- -- -- -- -- -- -- -- Output Urine 450 400 850 -- 600 600 -- -- -- Unmeasured Void -- -- -- -- -- -- 1 x 2 x 3 x Urine Catheter Output (mL) ([REMOVED] Indwelling Urethral Catheter 08/06/231931 Indwelling double lumen catheter 16 Fr) 450 400 850 -- 600 600 -- -- -- Other -- -- -- -- -- -- -- 0 0 Stool Amount -- -- -- -- -- -- 1 x -- 1 x Stool (mL) -- -- -- -- -- -- -- 0 0 Total Output 450 400 850 -- 600 600 -- 0 0 Net I/O -450 -400 -850 -- -600 -600 -- 0 0 08/12/23 07 - 08/13/23 0659 4021-9136 1132-7464 Total Intake Total Intake -- -- -- Output Urine 75 -- 75 Void (mL) 75 -- 75 Total Output 75 -- 75 Net I/O -75 -- -75 Physical Examination: BP 131/74 (BP Location: Left arm, Patient Position (BP): Supine) Pulse 90 Temp 97.7 ??F (36.5 ??C) (Oral) Resp 18 Ht 5' 6 (1.676 m) Wt 46.7 kg (103 lb) SpO2 98% No BMI 16.62 kg/m?? General: Alert and oriented, no acute distress Respiratory: non-labored respirations Abdomen: soft, appropriately tender to palpation; removed Silverlon dressings, both incisions clean/dry/intact Extremities: minimal edema Recent Labs 08/10/23 1114 08/11/23 0822 08/12/23 0559 WBC 5.1 4.5 4.5 HGB 9.4* 9.1* 9.1* HCT 29.0* 27.8* 27.5* PLT 360* 359* 351* NA 137 140 140 K 3.5 3.5 3.9 CL 101 102 104 CO2 28 27 27 BUN 13 17 20 CREAT 0.74 1.01* 1.19* GLUCOSE 129* 107* 101* Imagin/3 Renal ultrasound: 1. Normal renal ultrasound without evidence of hydronephrosis. Assessment: 62yo with Stage IVB HSGSOC s/p NACT x3 now POD#6 s/p DANETTE-BSO, complete omentectomy and tumor debulking with repair of bladder injury on 08/06 Post Op - Afebrile, VSS - Voiding without difficulty after nieto removed 1/2 - Pain well controlled - Passing flatus 2. 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 Asthma - Advair, albuterol prn 4. HLD - [atorvastatin] 5. CARLEEN, prerenal - Cr 0.74>1.01>1.19 - FeNa 0.5%, c/w prerenal injury - /3 Renal US wnl - s/p 500cc fluid bolus - Repeat BMP Plan: - F/u repeat BMP - Patient strongly desires discharge today Pain: tyl, toradol, IV dilaudid Diet: General DVT ppx: SCDs, Lovenox Nelly Quiroz MD [employer]HER PGY-1 Pager: [phone] Onc PGY-1 Zone OCHEMIST * Sena Seay RD - 08/11/2023 2:26 PM CST Images from the original note were not included. CLINICAL DIETITIAN PROGRESS NOTE [facility] Nutrition Follow Up Pt declining supplements and no longer wants them on trays. She is willing to try Ensure Clear mixed with water and/or Sprite. Also complains of tastes changes, although unable to describe taste. Denies metallic, cardboard, etc. Assessment: Anthropometrics: Height: 5' 6 (167.6 cm) (08/07/23146) Weight: 46.7 kg (103 lb) (08/07/23146) Body mass index is 16.62 kg/m??. Last Bowel Movement (mm/dd/yyyy): 08/06/24 (08/11/23824) Pawan Score: 19 (08/11/23824) Lab Results Component Value Date/Time NA 140 08/11/2023 08:22 AM K 3.5 08/11/2023 08:22 AM CL 102 08/11/2023 08:22 AM BUN 17 08/11/2023 08:22 AM CREAT 1.01 (H) 08/11/2023 08:22 AM GLUCOSE 107 (H) 08/11/2023 08:22 AM CA 9.3 08/11/2023 08:22 AM ALBUMIN 3.8 08/09/2023 06:59 AM GFR >60 08/11/2023 08:22 AM MG 2.0 07/09/2023 09:02 AM Skin:Wound 08/07/2326 6 Left thigh skin tear-Drainage Characteristics/Odor: sanguineous (08/07/2326) Wound 08/07/2326 3 abdomen surgical-Drainage Amount: no drainage (08/10/232122) Wound 08/07/2326 5 anterior lower quadrant surgical-Drainage Amount: no drainage (08/10/232122) Wound 08/07/2326 6 Left thigh skin tear-Drainage Amount: scant (08/07/23 1630) Wound 08/07/23 0027 7 Right;posterior thigh ulceration-Drainage Amount: no drainage (08/10/23 0501) Wound 08/07/23 0027 3 abdomen surgical-Dressing Appearance: dry;intact (08/10/232122) Wound 08/07/23 0027 5 anterior lower quadrant surgical-Dressing Appearance: dry;intact (08/10/232122) Wound 08/07/23 0027 6 Left thigh skin tear-Dressing Appearance: dry;intact (08/10/23 0951) Nutrition Prescription: DIET SUPPLEMENT GEN ADULT Daily; Complete Oral Supplement, DIET GENERAL Effective Now D: Same/ Percentage of Energy: < 75% for > or equal to 1 month (severe-chronic) (08/07/23 1600) Percentage of Weight Loss: (says wt fluctuated, think loss with ascites/paracentesis and now surgery) (08/07/23 1600) Biceps and triceps: Very little space between fingers, or fingers touch (severe) (08/07/23 1600) Subcutaneous Fat Loss Assessment: Severe fat loss (08/07/23 1600) Temporal: Flattened, slight but increasing depression (moderate) (08/07/23 1600) Clavicle: Protruding/prominent bone (severe) (08/07/23 1600) Shoulder (deltoid muscle): Ljhwytpd-zh-tzy joint looks square. Bones prominent. Acromion protrusion quite prominent (severe) (08/07/23 1600) Interosseous: Depressed between thumb/forefinger (severe) (08/07/23 1600) Thigh (quadriceps muscle): Quads can be significantly reduced (squeezed). Depression on inner thigh, obviously thin (severe) (08/07/23 1600) Knee: Knee bone is square and prominent, no muscle mass (severe) (08/07/23 1600) Calf (gastrocnemius muscle): Definite tissue reduction. Thin, flat, no muscle definition (severe) (08/07/23 1600) MuscleWasting Assessment: Severe (08/07/23 1600) I:Nutrition Intervention: Pt declining most supplements. Add Ensure Clear to dinner tray. Adding PB and crackers as snack. Continue to encourage good protein intakes. Offered Super Smoothie recipe book but pt reports not liking smoothies. Encouraged to reach out to [facility]'s for additional supplement samples. May need to consider appetite stimulant if near future. Encouraged to use straw to bypass taste buds. Malnutrition Recommendations: Oral supplements;See dietitian recommendations in Care Plan note (08/07/23 1600) Goal: Consume 75% of meals/ supplements M/E: 1. Continue to monitor: Anthropometrics, Digestive, Skin, and Biochemical data 2. Follow up every 3-5 days and as needed. Time spent: [address], LD, SHOOTER'S HELPER Contact via [employer] Secure Chat Ext. [phone] OCHEMIST * Chuy Wills RN - 08/11/2023 1:24 PM CST Nieto removed. OCHEMIST * Chuy Wills RN - 08/11/2023 11:34 AM CST Pt off floor for cystogram OCHEMIST * Aviva Humphries MD - 08/11/2023 7:55 AM CST Attending Attestation 08/11/23 I have seen and examined the patient Gynecologic Oncology Progress Note Subjective: The patient was seen and examined at bedside this AM No overnight events per nursing staff Feeling well. Pain controlled. Tolerating diet. Ambulating. Passing flatus. Tolerating nieto Physical Examination: BP (!) 141/54 (BP Location: Left arm, Patient Position (BP): Supine) Pulse 86 Temp 98.5 ??F (36.9 ??C) (Oral) Resp 20 Ht 5' 6 (1.676 m) Wt 46.7 kg (103 lb) SpO2 98% No BMI 16.62 kg/m?? Intake/Output Summary (Last 24 hours) at 08/11/2023 1531 Last data filed at 08/10/2023 2348 Gross per 24 hour Intake -- Output 600 ml Net -600 ml Gen: A&O, NAD CV: warm and well perfused Resp: no increased work of breathing room air Abd: soft, appropriately tender to palpation, mild tympany; incisions clean dry and intact with skin glue, slight bruising; silver dressing over larger incisions Skin: warm and dry Ext: no edema Neuro: cranial nerves grossly intact Psych: appropriate mood and affect Lab Review: I have reviewed her labs Assessment: 62yo with Stage IVB HSGSOC s/p NACT x3 now POD#5 s/p IDS of diagnostic laparoscopy, DANETTE-BSO complete omentectomy and tumor debulking with repair of bladder injury. Recovering appropriately. Plan: Multimodal pain control House diet, anti-emetics as needed, bowel regimen, pepcid Cystogram today; if no evidence of leak with remove nieto and f/u DTV Cr rise today to 1.01; will repeat in AM Lovenox for DVT ppx Anticipate discharge to home tomorrow--will remove bandage prior to discharge; will need eliquis ppx x3 additional weeks Aviva Humphries MD 08/11/23 Gynecologic Oncology Progress Note Subjective: The patient was seen and examined at bedside this AM No overnight events per nursing staff Continues to have bowel function Nieto catheter in place Pain controlled Ambulating Procedures: Procedure(s): HYSTERECTOMY ABDOMINAL TOTAL SALPINGO-OOPHORECTOMY LAPAROSCOPIC URETEROLYSIS BLADDER REPAIR CYSTOURETHROSCOPY OMENTECTOMY DIAPHRAGM BIOPSY INGUINAL OR FEMORAL LYMPH NODE BIOPSY/EXCISION Intake/Output 08/06/23 0700 - 08/07/23 0659 08/07/23 0700 - 08/08/23 0659 08/08/23 0700 - 08/09/23 0659 0346-0955 3527-6184 Total 9307-5710 0434-7050 Total 2739-8111 6720-3750 Total Intake I.V. 156 2300 2456 -- 0 0 -- -- -- Total Amount Infused (mL) -- -- -- -- 0 0 -- -- -- Volume (mL) (lactated ringers infusion) -- 2300 2300 -- -- -- -- -- -- Volume (mL) (clindamycin (CLEOCIN) 900 mg in dextrose 5% 50 mL IVPB) 50 -- 50 -- -- -- -- -- -- Volume (mL) (gentamicin (GARAMYCIN) 240 mg in sodium chloride 0.9% 100 mL EXTENDED INTERVAL IVPB) 106 -- 106 -- -- -- -- -- -- Total Intake 156 2300 2456 -- 0 0 -- -- -- Output Urine -- 1475 1475 -- 2475 2475 2650 1300 3950 IntraOp Urine Output (mL) -- 600 600 -- -- -- -- -- -- Urine Catheter Output (mL) (Indwelling Urethral Catheter 08/06/231931 Indwelling double lumen catheter 16 Fr) -- 875 875 -- 2475 2475 2650 1300 3950 Emesis -- -- -- 0 -- 0 -- -- -- Emesis (mL) -- -- -- 0 -- 0 -- -- -- Drains -- 100 100 -- -- -- -- -- -- NG/OG Output (mL) ([REMOVED] Naso/Oral Tube 08/06/232022 [place] glover;nasogastric 18 Fr right nostril) -- 100 100 -- -- -- -- -- -- Other -- 300 300 -- -- -- -- -- -- Est Blood Loss (mL) -- 300 300 -- -- -- -- -- -- Total Output -- 1875 1875 0 2475 2475 2650 1300 3950 Net I/O 156 425 581 0 -2475 -2475 -2650 -1300 -3950 08/09/23 0700 - 08/10/23 0659 08/10/23 0700 - 08/11/23 0659 8929-8838 5075-2427 Total 4974-4693 1563-3445 Total Intake Total Intake -- -- -- -- -- -- Output Urine 450 400 850 -- 600 600 Urine Catheter Output (mL) (Indwelling Urethral Catheter 08/06/231931 Indwelling double lumen catheter 16 Fr) 450 400 850 -- 600 600 Total Output 450 400 850 -- 600 600 Net I/O -450 -400 -850 -- -600 -600 Physical Examination: BP (!) 141/54 (BP Location: Left arm, Patient Position (BP): Supine) Pulse 86 Temp 98.5 ??F (36.9 ??C) (Oral) Resp 20 Ht 5' 6 (1.676 m) Wt 46.7 kg (103 lb) SpO2 98% No BMI 16.62 kg/m?? General: Alert and oriented, no acute distress Cardiovascular: Regular rate and rhythm Respiratory: non-labored respirations Abdomen: soft, non-tender to palpation, bandage in place c/d/I Extremities: minimal Edema Assessment: 62 y.o. female s/p Lap hyst, with conversion to open via Pfannenstiel mini lap; BSO; bladder repair; omentectomy via mini vertical midline 08/06 Postop - Afebrile, hemodynamically stable - exam appropriate - labs unremarkable - pain controlled with current meds -nieto to stay in place, cystogram today prior to removal -PT/OT 2. 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 Pain: tyl, Laurence Diet: general diet w/ supplements Lines/drains: Nieto to stay in place for 5-7 days post-op DVT ppx: SCDs, lovenox Ara Padilla MD OCHEMIST * Aviva Humphries MD - 08/10/2023 10:55 AM CST Admit Date: 08/06/2023 Hospital day: 2 Subjective: Overall feeling well Pain managed Tolerating nieto catheter Ambulated in juan yesterday multiple times No flatus, tolerating FLD, GERD, no n/v Current Facility-Administered Medications Medication Dose Route Frequency Provider Last Rate Last Admin famotidine PF (PEPCID) 20 mg/2 mL injection 20 mg 20 mg IV every 12 hours Trace Lemons DO 20 mg at 08/10/23 0952 loratadine (CLARITIN) tablet 10 mg 10 mg Oral daily Trace Lemons DO 10 mg at 08/10/23 0503 sennosides-docusate sodium (SENNA-S) 8.6-50 mg per tablet 1 Tablet 1 Tablet Oral BID Aviva Humphries MD 1 Tablet at 08/10/23 0503 morphine 4 mg/mL injection 4 mg 4 mg IV every 2 hours PRN Cristo, Trace Alexander Edward, DO sodium chloride (OCEAN) 0.65 % nasal soln 2 [place] 2 [place] Both Nostrils every 15 minutes PRN Trace Lemons, acetaminophen (TYLENOL) tablet 650 mg 650 mg Oral every 6 hours Francesca Newby MD 650 mg at 08/10/23 0503 ondansetron (ZOFRAN) 4 mg/2 mL injection 4 mg 4 mg IV every 6 hours PRN Francesca Newby MD 4 mg at 08/09/23 0938 prochlorperazine maleate (COMPAZINE) tablet 10 mg 10 mg Oral every 6 hours PRN Francesca Newby MD enoxaparin (LOVENOX) injection 40 mg 40 mg subCUT every 24 hours Francesca Newby MD 40 mg at 08/10/23 0951 fluticasone furoate-vilanteroL (BREO ELLIPTA) 100-25 mcg/dose inhaler 1 Puff 1 Puff Inhalation resp, daily Francesca Newby MD 1 Puff at 08/10/23 0921 albuterol (PROVENTIL,VENTOLIN) 2.5 mg /3 mL (0.083 %) inhalation solution 2.5 mg 2.5 mg Inhalation resp, every 6 hours PRN Francesca Newby MD polyvinyl alcohol-povidon(PF) (REFRESH CLASSIC) 1.4-0.6 % ophthalmic solution 2 Drop 2 Drop Both Eyes every 4 hours PRN Kirstie Guardado MD atorvastatin (LIPITOR) tablet 20 mg 20 mg Oral daily BEDTIME Theresa Melissa MD 20 mg at 08/09/232029 naloxone (NARCAN) 0.4 mg/mL injection 0.1 mg 0.1 mg IV see admin instructions Kieran Neville MD Objective: Patient Vitals for the past 8 hrs: BP Temp Temp src Pulse Resp SpO2 08/10/23 0922 -- -- -- -- 20 -- 08/10/23 0712 121/85 98.2 ??F (36.8 ??C) Oral 97 20 98 % Intake/Output Summary (Last 24 hours) at 08/10/2023 1055 Last data filed at 08/10/2023 0501 Gross per 24 hour Intake -- Output 850 ml Net -850 ml Gen: A&O, NAD CV: warm and well perfused Resp: no increased work of breathing room air Abd: soft, appropriately tender to palpation, mild tympany; incisions clean dry and intact with skin glue, slight bruising; silver dressing over larger incisions Skin: warm and dry Ext: no edema Neuro: cranial nerves grossly intact Psych: appropriate mood and affect Data Review: Labs not done today Assessment: Active Problems: Ovarian cancer Protein-calorie malnutrition, severe Bladder injury 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 Recovering appropriately. Plan: Multi-modal pain control HLIV; replace lytes as needed, House diet Anti-emetics as needed; bowel regimen Pepcid for GERD symptoms Nieto to stay in place; need cystogram prior to removal (plan for 1) Hgb appropriate Lovenox for DVT ppx Add home claritin PT/OT Dispo: inpatient for post-op recovery--possible discharge to home tomorrow or Thursday Aviva Humphries MD [facility] Gynecologic Oncology OCHEMIST * Theresa Grayson RN - 08/10/2023 7:21 AM CST Neuro: A&O x 4, Cooperative with care. Pain: Denies complaints of pain. Resp: RA, No complaints of SOB but dyspnea on exertion, clear, diminished breath sounds Cardiac: VS tachycardic, not on telemetry, no complaints of chest pain. P.Neuro: Normal 2+ pulses, edema, Numbness present in BLUE and BLLE. Nutrition: poor intake, Clear liquid diet GI: Abdominal discomfort, complaints of gas. last BM 08/06 : Nieto cath in place, nieto care provided Skin: Multiple abdominal incisions on abdomen, all WDL. Left thigh tear, right thigh ulceration, managed. Musc: Mild generalized muscle weakness Activity: Up independently, SB with activity Events: Care clustered. Plan of Care ongoing, no further concerns as of present. Call light and personal belongings within reach. Patient resting comfortably between care and expresses no other needsat this time. RN: JANET Marcum #: [id number] OCHEMIST * Sena Seay RD - 08/09/2023 3:25 PM CST Images from the original note were not included. CLINICAL DIETITIAN PROGRESS NOTE [facility] Nutrition Follow Up Pt requesting to see RD today. Advanced to FLD, added CIB and 10oz milkshakes to trays. Pt voiced concerned over Everyone being concerned about her weight. Explained she has noticeable muscle loss and with h/o paracentesis she has increased protein needs. Pt enjoyd PB crackers and Peanut M&M's on a regular basis for snacks. Provided Hall RD information. Pt reports her allergies tend to actup with dairy products. Pt highly dislikes Ensure but recommend she may want to try Qiwi Post. Assessment: Anthropometrics: Height: 5' 6 (167.6 cm) (08/07/23146) Weight: 46.7 kg (103 lb) (08/07/23146) Body mass index is 16.62 kg/m??. Last Bowel Movement (mm/dd/yyyy): 08/06/23 (08/09/23 0505) Pawan Score: 19 (08/09/23 0937) Lab Results Component Value Date/Time NA 137 08/09/2023 06:59 AM K 3.8 08/09/2023 06:59 AM CL 98 08/09/2023 06:59 AM BUN 7 (L) 08/09/2023 06:59 AM CREAT 0.66 08/09/2023 06:59 AM GLUCOSE 89 08/09/2023 06:59 AM CA 9.8 08/09/2023 06:59 AM ALBUMIN 3.8 08/09/2023 06:59 AM GFR >60 08/09/2023 06:59 AM MG 2.0 07/09/2023 09:02 AM Skin:Wound 08/07/2326 6 Left thigh skin tear-Drainage Characteristics/Odor: sanguineous (08/07/2326) Wound 08/07/2326 3 abdomen surgical-Drainage Amount: no drainage (08/09/23 0937) Wound 08/07/23 0027 5 anterior lower quadrant surgical-Drainage Amount: no drainage (08/09/23 0937) Wound 08/07/23 0027 6 Left thigh skin tear-Drainage Amount: scant (08/07/23 1630) Wound 08/07/23 0027 7 Right;posterior thigh ulceration-Drainage Amount: no drainage (08/07/23 1630) Wound 08/07/23 0027 3 abdomen surgical-Dressing Appearance: dry;intact (08/09/23936) Wound 08/07/23 0027 5 anterior lower quadrant surgical-Dressing Appearance: dry;intact (08/09/23 0937) Wound 08/07/23 0027 6 Left thigh skin tear-Dressing Appearance: dry;intact (08/09/23936) Nutrition Prescription: DIET SUPPLEMENT GEN ADULT Daily; Complete Oral Supplement, DIET FULL LIQUID D: Same/ Percentage of Energy: < 75% for > or equal to 1 month (severe-chronic) (08/07/231599) Percentage of Weight Loss: (says wt fluctuated, think loss with ascites/paracentesis and now surgery) (08/07/231599) Biceps and triceps: Very little space between fingers, or fingers touch (severe) (08/07/231599) Subcutaneous Fat Loss Assessment: Severe fat loss (08/07/231599) Temporal: Flattened, slight but increasing depression (moderate) (08/07/23 1600) Clavicle: Protruding/prominent bone (severe) (08/07/23 1600) Shoulder (deltoid muscle): Yimjcewj-qm-wfl joint looks square. Bones prominent. Acromion protrusion quite prominent (severe) (08/07/23 1600) Interosseous: Depressed between thumb/forefinger (severe) (08/07/23 1600) Thigh (quadriceps muscle): Quads can be significantly reduced (squeezed). Depression on inner thigh, obviously thin (severe) (08/07/231599) Knee: Knee bone is square and prominent, no muscle mass (severe) (08/07/23 1600) Calf (gastrocnemius muscle): Definite tissue reduction. Thin, flat, no muscle definition (severe) (08/07/23 1600) MuscleWasting Assessment: Severe (08/07/231599) I:Nutrition Intervention: CIB, 10oz milkshake and [employer] added to tray. Continue to encourage good protein intakes. Offered Super Smoothie recipe book but pt reports not liking smoothies. Encouraged to reach out to Rafael RD's for additional supplement samples. Malnutrition Recommendations: Oral supplements;See dietitian recommendations in Care Plan note (08/07/23 1600) Goal: Consume 75% of meals/ supplements M/E: 1. Continue to monitor: Anthropometrics, Digestive, Skin, and Biochemical data 2. Follow up every 3-5 days and as needed. Time spent: [address], LD, [employer] HELPER Contact via [employer] Secure Chat Ext. [phone] OCHEMIST * Aviva Humphries MD - 08/09/2023 9:56 AM CST Admit Date: 08/06/2023 Hospital day: 2 Subjective: Overall feeling well Happy to be off CNP/IVF Pain managed Tolerating nieto catheter Ambulated in juan yesterday No flatus, tolerating CLD, GERD, no n/v Current Facility-Administered Medications Medication Dose Route Frequency Provider Last Rate Last Admin famotidine PF (PEPCID) 20 mg/2 mL injection 20 mg 20 mg IV every 12 hours Trace Lemons, DO 20 mg at 08/09/23 0938 loratadine (CLARITIN) tablet 10 mg 10 mg Oral daily Trace Lemons, DO 10 mg at 08/09/23 0938 morphine 4 mg/mL injection 4 mg 4 mg IV every 2 hours PRN Trace Lemons DO sodium chloride (OCEAN) 0.65 % nasal soln 2 [place] 2 [place] Both Nostrils every 15 minutes PRN Trace Lemons, DO [DISCONTINUED] hydromorPHONE (PF) (DILAUDID) 1 mg/mL syringe 0.3 mg 0.3 mg IV every 2 hours PRN Trace Lemons, DO 0.3 mg at 08/08/23 1545 [DISCONTINUED] lactated ringers infusion IV continuous Aviva Humphries MD Stopped at 08/08/232101 acetaminophen (TYLENOL) tablet 650 mg 650 mg Oral every 6 hours Francesca Newby MD 650 mg at 08/09/23 0507 ondansetron (ZOFRAN) 4 mg/2 mL injection 4 mg 4 mg IV every 6 hours PRN Francesca Newby MD 4 mg at 08/09/23 0938 prochlorperazine maleate (COMPAZINE) tablet 10 mg 10 mg Oral every 6 hours PRN Francesca Newby MD enoxaparin (LOVENOX) injection 40 mg 40 mg subCUT every 24 hours Francesca Newby MD 40 mg at 08/09/23 0938 fluticasone furoate-vilanteroL (BREO ELLIPTA) 100-25 mcg/dose inhaler 1 Puff 1 Puff Inhalation resp, daily Francesca Newby MD 1 Puff at 08/09/23 0829 albuterol (PROVENTIL,VENTOLIN) 2.5 mg /3 mL (0.083 %) inhalation solution 2.5 mg 2.5 mg Inhalation resp, every 6 hours PRN Francesca Newby MD polyvinyl alcohol-povidon(PF) (REFRESH CLASSIC) 1.4-0.6 % ophthalmic solution 2 Drop 2 Drop Both Eyes every 4 hours PRN Kirstie Guardado MD atorvastatin (LIPITOR) tablet 20 mg 20 mg Oral daily BEDTIME Theresa Melissa MD 20 mg at 08/08/23 2102 [DISCONTINUED] dextrose 5% - lactated ringers infusion IV continuous Francesca Newby MD Stopped at 08/08/23 1100 [DISCONTINUED] HYDROmorphone (DILAUDID) 1 mg/mL CNP injection (adult opioid naive) IV continuous Theresa Melissa MD Stopped at 08/08/23 1100 naloxone (NARCAN) 0.4 mg/mL injection 0.1 mg 0.1 mg IV see admin instructions Kieran Neville MD Objective: Patient Vitals for the past 8 hrs: BP Temp Temp src Pulse Resp SpO2 08/09/23 0829 -- -- -- (!) 111 16 92 % 08/09/23 0713 (!) 137/91 97.9 ??F (36.6 ??C) Oral (!) 107 18 98 % Intake/Output Summary (Last 24 hours) at 08/09/2023 0956 Last data filed at 08/09/2023 0009 Gross per 24 hour Intake -- Output 3950 ml Net -3950 ml Gen: A&O, NAD CV: warm and well perfused Resp: no increased work of breathing room air Abd: soft, appropriately tender to palpation, mild tympany; incisions clean dry and intact with skin glue, slight bruising; silver dressing over larger incisions Skin: warm and dry Ext: no edema Neuro: cranial nerves grossly intact Psych: appropriate mood and affect Data Review: CBC: Lab Results Component Value Date/Time WBC 6.7 08/09/2023 06:59 AM RBC 3.09 (L) 08/09/2023 06:59 AM HGB 9.6 (L) 08/09/2023 06:59 AM HCT 30.0 (L) 08/09/2023 06:59 AM PLT 350 08/09/2023 06:59 AM BMP: Lab Results Component Value Date/Time GLUCOSE 89 08/09/2023 06:59 AM NA 137 08/09/2023 06:59 AM K 3.8 08/09/2023 06:59 AM CL 98 08/09/2023 06:59 AM CO2 27 08/09/2023 06:59 AM BUN 7 (L) 08/09/2023 06:59 AM CREAT 0.66 08/09/2023 06:59 AM CA 9.8 08/09/2023 06:59 AM Assessment: Active Problems: Ovarian cancer Protein-calorie malnutrition, severe Bladder injury 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 Recovering appropriately. Plan: Multi-modal pain control; will transition to PO meds entirely if tolerating FLD today HLIV; replace lytes as needed, allow FLD today--ensure to be added Anti-emetics as needed; start bowel regimen All pepcid for GERD symptoms Nieto to stay in place; need cystogram prior to removal (likely 1/2) Hgb appropriate Lovenox for DVT ppx Add home claritin PT/OT Dispo: inpatient for post-op recovery Aviva Humphries MD [facility] Gynecologic Oncology OCHEMIST * Theresa Grayson RN - 08/09/2023 6:48 AM CST Neuro: A&O x 4, Cooperative with care. Pain: Complaints of pain treated with rest and relation. Resp: RA, No complaints of SOB but dyspnea on exertion, clear breath sounds Cardiac: VS hypertensive, not on telemetry, no complaints of chest pain. P.Neuro: Normal 2+ pulses, edema, Numbness present in BLUE and BLLE. Nutrition: poor intake, Clear liquid diet GI: Abdominal discomfort, last BM 08/06 : Nieto cath in place, nieto care provided Skin: Multiple abdominal incisions on abdomen, all WDL. Left thigh tear, right thigh ulceration, managed. Musc: Mild generalized muscle weakness Activity: Up independently, SB with activity Events: Care clustered. Plan of Care ongoing, no further concerns as of present. Call light and personal belongings within reach. Patient resting comfortably between care and expresses no other needsat this time. RN: Prateek Garza RN Zone #: [phone] OCHEMIST * Aviva Humphries MD - 08/08/2023 10:43 AM CST Admit Date: 08/06/2023 Hospital day: 2 Subjective: Overall feeling well Capnography bothering her Pain managed Tolerating nieto catheter Has not been out of bed Current Facility-Administered Medications Medication Dose Route Frequency Provider Last Rate Last Admin hydromorPHONE (PF) (DILAUDID) 1 mg/mL syringe 0.3 mg 0.3 mg IV every 2 hours PRN Trace Lemons DO dextrose 5% - lactated ringers infusion IV continuous Francesca Newby MD 75 mL/hr at 08/08/23 0034 New Bag at 08/08/23 0034 acetaminophen (TYLENOL) tablet 650 mg 650 mg Oral every 6 hours Francesca Newby MD 650 mg at 08/08/23 0627 [COMPLETED] ketorolac (TORADOL) injection 10 mg 10 mg IV every 6 hours Francesca Newby MD 10 mg at 08/07/23 1756 ondansetron (ZOFRAN) 4 mg/2 mL injection 4 mg 4 mg IV every 6 hours PRN Francesca Newby MD prochlorperazine maleate (COMPAZINE) tablet 10 mg 10 mg Oral every 6 hours PRN Francesca Newby MD enoxaparin (LOVENOX) injection 40 mg 40 mg subCUT every 24 hours Francesca Newby MD 40 mg at 08/08/23 0929 fluticasone furoate-vilanteroL (BREO ELLIPTA) 100-25 mcg/dose inhaler 1 Puff 1 Puff Inhalation resp, daily Francesca Newby MD 1 Puff at 08/08/23 1033 albuterol (PROVENTIL,VENTOLIN) 2.5 mg /3 mL (0.083 %) inhalation solution 2.5 mg 2.5 mg Inhalation resp, every 6 hours PRN Francesca Newby MD polyvinyl alcohol-povidon(PF) (REFRESH CLASSIC) 1.4-0.6 % ophthalmic solution 2 Drop 2 Drop Both Eyes every 4 hours PRN Kirstie Guardado MD atorvastatin (LIPITOR) tablet 20 mg 20 mg Oral daily BEDTIME Theresa Melissa MD 20 mg at 08/08/23 0028 [DISCONTINUED] HYDROmorphone (DILAUDID) 1 mg/mL CNP injection (adult opioid naive) IV continuous Theresa Melissa MD New Bag at 08/07/23 0211 [DISCONTINUED] zolpidem (AMBIEN) tablet 5 mg 5 mg Oral at bedtime PRN Theresa Melissa MD naloxone (NARCAN) 0.4 mg/mL injection 0.1 mg 0.1 mg IV see admin instructions Kieran Neville MD Objective: Patient Vitals for the past 8 hrs: BP Temp Temp src Pulse Resp SpO2 08/08/23 1033 -- -- -- 86 16 -- 08/08/23 0831 (!) 156/86 98.2 ??F (36.8 ??C) Oral 88 16 -- 08/08/23 0627 (!) 154/85 97.9 ??F (36.6 ??C) Oral 88 16 95 % 08/08/23 0416 (!) 145/78 97.7 ??F (36.5 ??C) Oral 90 16 98 % Intake/Output Summary (Last 24 hours) at 08/08/2023 1046 Last data filed at 08/08/2023 0629 Gross per 24 hour Intake 0 ml Output 2475 ml Net -2475 ml Gen: A&O, NAD CV: warm and well perfused Resp: no increased work of breathing room air Abd: soft, appropriately tender to palpation, mild tympany; incisions clean dry and intact with skin glue, slight bruising; silver dressing over larger incisions Skin: warm and dry Ext: no edema Neuro: cranial nerves grossly intact Psych: appropriate mood and affect Data Review: CBC: Lab Results Component Value Date/Time WBC 4.6 08/07/2023 04:24 AM RBC 3.10 (L) 08/07/2023 04:24 AM HGB 9.5 (L) 08/07/2023 04:24 AM HCT 29.8 (L) 08/07/2023 04:24 AM PLT 324 08/07/2023 04:24 AM BMP: Lab Results Component Value Date/Time GLUCOSE 207 (H) 08/07/2023 04:25 AM NA 137 08/07/2023 04:25 AM K 4.2 08/07/2023 04:25 AM CL 103 08/07/2023 04:25 AM CO2 25 08/07/2023 04:25 AM BUN 11 08/07/2023 04:25 AM CREAT 0.76 08/07/2023 04:25 AM CA 8.6 08/07/2023 04:25 AM Assessment: Active Problems: Ovarian cancer Protein-calorie malnutrition, severe Bladder injury 62yo with Stage IVB HSGSOC s/p NACT x3 now POD#2 s/p IDS of diagnostic laparoscopy, DANETTE-BSO complete omentectomy and tumor debulking with repair of bladder injury. Recovering appropriately. Plan: Multi-modal pain control--will stop CNP today and allow IV pushes of pain meds prn mIVF, replace lytes as needed, allow CLD today--ensure clear to be added Anti-emetics as needed; hold off on bowel regimen today Nieto to stay in place; need cystogram prior to removal (likely 1/2) Hgb appropriate Lovenox for DVT ppx PT/OT Needs to be out of bed today Aviva Humphries MD [facility] Gynecologic Oncology OCHEMIST * Jennifer Moffett RD - 08/07/2023 4:18 PM CST The patient was evaluated by the dietitian and was found to have Severe protein calorie malnutrition. The malnutrition pathway is recommended and the assessment via ASPEN criteria and nutrition recommendations from the dietitian are as follows: ASPEN Malnutrition Assessment and Findings Subcutaneous Fat Loss Assessment: Severe fat loss (08/07/231599) Muscle Wasting Assessment: Severe (08/07/231599) Percentage of Energy: < 75% for > or equal to 1 month (severe-chronic) (08/07/231599) Percentage of Weight Loss: (says wt fluctuated, think loss with ascites/paracentesis and now surgery) (08/07/231599) Malnutrition Decision Nutrition Diagnosis: Severe protein-calorie malnutrition (08/07/231599) BMI BMI (Calculated): (!) 16.63 (08/07/23 0147) Malnutrition Recommendations Malnutrition Recommendations: Oral supplements;See dietitian recommendations in Care Plan note (08/07/231599) OCHEMIST * Shilo Ospina RN - 08/07/2023 3:05 PM CST Up to side of bed for several minutes ans now back with staff to assist. Requested order to have PT/OT assess and treat. No response to this point. OCHEMIST * Bettina Will RN - 08/07/2023 12:34 PM CST 08/07/2023 12:34 PM [facility] Name: November Eileen Tiarra Age: 62 y.o. Sex: female CSN: [id number] Chief complaint: Post operative pain POD # 1 Block Type: TAP block - bilateral Current pain score: 0/10 Happy with pain control, liked the block. BP (!) 147/70 (BP Location: Left arm, Patient Position (BP): Supine) Pulse 97 Temp 97.7 ??F (36.5 ??C) (Oral) Resp 18 Ht 5' 6 (1.676 m) Wt 46.7 kg (103 lb) SpO2 100% BMI 16.62 kg/m?? Alert: yes Nausea/vomiting: no Oral narcotics tolerated: yes Motor block: no Sensory Block: no Injection site: C/D/I - yes, without ecchymosis/edema/erythema LABS Lab Results Component Value Date WBC 4.6 08/07/2023 HGB 9.5 (L) 08/07/2023 HCT 29.8 (L) 08/07/2023 PLT 324 08/07/2023 No results found for: INR , PT , PROTIMEPOC Nerve block resolving as anticipated. No apparent complications. Please contact the Regional Anesthesia Service with any questions regarding the nerve block. Bettina Will RN The [facility] may be contacted by zone phone [phone] during daytime resource hours,or by pager [phone] at any time. If there is no answer within 20 minutes, call [phone] for the Anesthesiologist coil connector repairer. OCHEMIST * Aviva Humphries MD - 08/07/2023 7:27 AM CST Attending Attestation 08/07/23 I have seen and examined the patient Gynecologic Oncology Progress Note Subjective: The patient was seen and examined at bedside this AM No overnight events per nursing staff Feeling ok this morning. Didn't get much sleep. Nose is very bothered by the NGT. Pain adequately controlled. Tolerating nieto catheter but does find it annoying. No n/v. Has not been out of bed. Physical Examination: BP (!) 147/70 (BP Location: Left arm, Patient Position (BP): Supine) Pulse 97 Temp 97.7 ??F (36.5 ??C) (Oral) Resp 18 Ht 5' 6 (1.676 m) Wt 46.7 kg (103 lb) SpO2 100% BMI 16.62 kg/m?? Intake/Output Summary (Last 24 hours) at 08/07/2023 1037 Last data filed at 08/07/2023 0816 Gross per 24 hour Intake 2456 ml Output 1875 ml Net 581 ml UOP: 1475 N Gen: A&O, NAD CV: warm and well perfused Resp: no increased work of breathing room air Abd: soft, appropriately tender to palpation, mild tympany; incisions clean dry and intact with skin glue/bandage slight bruising Skin: warm and dry Ext: no edema Neuro: cranial nerves grossly intact Psych: appropriate mood and affect Lab Review: I have reviewed her labs Assessment: 62yo with Stage IVB HSGSOC s/p NACT x3 now POD#1 s/p IDS of diagnostic laparoscopy, DANETTE-BSO complete omentectomy and tumor debulking with repair of bladder injury. Recovering appropriately. Plan: Multimodal pain control, CNP at this time mIVF, replace lytes as indicated, NPO with sips/chips NGT to LIWS, anticipate removal today (maintained post-op given extensive dissection around the stomach) Nieto to stay in place given repair of bladder injury (plan for at least 3-5 days) plan for cystogram prior to removal Hgb appropriate Lovenox for DVT ppx Continue appropriate home meds Ambulation Inpatient for post-op recovery Aviva Humphries MD PEOPLE GREETER Oncology Rounding Note Subjective: Patient doing well. No issues overnight. She is uncomfortable with the NG tube and nieto. No complaints this morning. Objective: Vitals: 08/07/23 0034 08/07/23 0147 08/07/23 0300 08/07/23 0418 BP: 119/74 130/75 (!) 152/86 BP Location: Left arm Left arm Left arm Patient Position (BP): Supine Supine Supine Pulse: (!) 105 (!) 107 (!) 105 Resp: 20 15 15 Temp: 97.9 ??F (36.6 ??C) 97.8 ??F (36.6 ??C) 97.8 ??F (36.6 ??C) TempSrc: Oral Oral Oral SpO2: 98% 99% 99% Weight: 46.7 kg (103 lb) Height: 5' 6 (1.676 m) HEENT: NCAT Abd: Soft, appropriately tender, nondistended, positive bowel sounds, incisions c/d/i Ext: No calf tenderness Labs: Recent Labs 08/07/23 0424 08/07/23 042 WBC 4.6 -- HGB 9.5* -- HCT 29.8* -- PLT 324 -- NA -- 137 K -- 4.2 CL -- 103 CO2 -- 25 BUN -- 11 CREAT -- 0.76 GLUCOSE -- 207* Assessment/Plan: 62 y.o. female s/p Lap hyst, with conversion to open via Pfannenstiel mini lap; BSO; bladder repair; omentectomy via mini vertical midline 08/06, HD#0 1. Postop - Afebrile, hemodynamically stable - exam appropriate - labs unremarkable - pain controlled with current meds 2. 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 [atorvastatin] Pain: tyl, toradol, dilaudid CNP Diet: NPO sips w/ meds/ice chips IV fluids: d5LR @ 75cc Lines/drains: NG tube to LIWS; Nieto to stay in place for 5-7 days post-op DVT ppx: SCDs, lovenox (to start 08/07 AM) Kirstie Guardado MD Residential Designer Resident, PGY-2 R2 Pager: [phone] OCHEMIST documented in this encounter H&P Notes * Aviva Humphries MD - 08/06/2023 3:46 PM CST Images from the original note were not included. [facility] GYNECOLOGIC ONCOLOGY OFFICE VISIT 07/22/2023November Eileen Mayen REFERRING PROVIDER: Dr. Barnard ref. provider found PRIMARY CARE PROVIDER: Shilo Harley MD RETURN PATIENT VISIT Cancer Staging Ovarian cancer Staging form: Ovary, Fallopian Tube, and Primary Peritoneal Carcinoma, AJCC 8th Edition - Clinical stage from 05/13/2023: FIGO Stage IVB - Signed by Aviva Humphries MD on 05/13/2023 Oncology History: 03/2023 presented to [place] ED with abdominal distension; CT showed 11.6cm [...] R thigh/back of leg; treated with Valtrex Current Therapy: NACT; here for discussion of surgery Port: Yes, working well NGS: will get at resection IHC: not applicable Genetics: not yet done; appointment is 08/04/23 Last exam: 05/13/23 Code Status/AD: not addressed Chief complaint: I am seeing aNrda Mayen for evaluation and management of Stage IVB HGSOC Interval history: Narda Mayen is a 64yo who presented to the ED 03/2022 with symptoms of abdominal distension. A CT scan was performed revealing a large ovarian mass with carcinomatosis, inguinal and pelvic LAD and thickening of the stomach wall. She was sen by Dr. Rodgers in [facility] 04/29/23 who ordered additional work up and referred to gym attendant oncology. CT chest did not show metastatic disease. CA-125 was performed at elevated at 751. 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 She was started on NACT with carbo/taxol/sima as noted above. She presents today for follow up and surgical planning. Tolerated chemotherapy relatively well. Has been able to work throughout her treatment. Does have some neuropathy which does improve by next treatment. Not interfering with ADLs. Some constipation which she has been able to manage. No significant pain. Ascites has resolved. Has lost some weight with treatment but is doing her best with eating. Weight trend 05/13/23 113 lbs 07/22/23 101 lbs Lab Results Component Value Date/Time CA125 32 07/09/2023 09:01 AM CA125 57 (H) 06/18/2023 08:16 AM CA125 304.0 (H) 05/28/2023 07:30 AM Review of Systems Constitutional: Positive for weight loss. Negative for fever and malaise/fatigue. Respiratory: Negative for cough and shortness of breath. Cardiovascular: Negative for chest pain, palpitations and leg swelling. Gastrointestinal: Positive for diarrhea and nausea. Negative for abdominal pain, constipation, heartburn and vomiting. Genitourinary: Negative for dysuria, frequency and urgency. Musculoskeletal: Negative for myalgias and neck pain. Skin: Negative for rash. Neurological: Negative for dizziness, weakness and headaches. Psychiatric/Behavioral: Negative for depression. All other systems reviewed and are negative. Pertinent imaging studies: 07/21/23 CTCAP (after 3 cycles of chemotherapy) 05/01/23 CT Chest 04/16/23 CTAP Pathology/Histology/Cytology results: 04/29/23 Paracentesis [facility] review Component FINAL DIAGNOSIS [place] [address] (OSC [id number]; 04/29/2023 and [id number]; 05/06/2023) [id number] Ascites fluid, cytologic examination: - CK7 positive adenocarcinoma. [id number] Lymph node, right inguinal, biopsy: - Metastatic carcinoma most compatible with high-grade serous carcinoma. See comment. at 1237 MICROSCOPIC DESCRIPTION Received are slides labeled [id number] and [id number] and Narda Joel Mayen. Microscopic examination of [...] origin. Sections of the lymph node biopsy ([id number]) show cores of lymph node involved by [...] on 05/26/23. Past Medical History: Diagnosis Date Asthma Emphysema of lung Hyperlipidemia Past Surgical History: Procedure Laterality Date HX BUNIONECTOMY Bilateral 2010 HX SECTION 1982,1985,1994 Allergies Allergen Reactions Penicillins Rash Ciprofloxacin Rash [...] , Rfl: fluticasone propionate (FLONASE) 50 mcg/spray [place], Suspension nasal inhaler, Administer 2 Sprays in each nostril daily., Disp: , Rfl: omega-3 fatty acids-fish oil 300-1,000 mg Capsule, Take 2 Capsules by mouth daily., Disp: , Rfl: Current Facility-Administered Medications: bisacodyL (DULCOLAX) rectal suppository 10 mg, 10 mg, Rectal, daily, Aviva Humphries MD FAMILY HISTORY: Cancer-related family history includes Lung Cancer in her father. No uterine, cervix, ovarian, breast or colon cancer OBHx: OB History No obstetric history on file. ; x3 PEOPLE GREETER HISTORY: Abnml Pap: denies Menopause: 54ish; no bleeding Social: Social History Tobacco Use Smoking Status Every Day Packs/day: 0.50 Years: 35.00 Additional pack years: 0.00 Total pack years: 17.50 Types: Cigarettes Smokeless Tobacco Never TOBACCO COUNSELING She was counseled to discontinue tobacco/nicotine use. Down to half pack per day. 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 BP 124/68 (BP Location: Left arm, Patient Position (BP): Sitting, BP Cuff Size: Adult) Temp 98 ??F (36.7 ??C) (Oral) Ht 5' 6 (1.676 m) Wt 45.8 kg (101 lb) LMP (LMP Unknown) SpO2 98% BMI 16.30 kg/m?? ECOG PS: 0 HEAD: Normocephalic, atraumatic. EYES: Conjunctivae and lids were normal. RESPIRATORY: Normal respiratory effort. CARDIOVASCULAR: No lower extremity varicosities were noted. No peripheral edema noted. ABDOMEN: Soft, non-tender, no masses, no evidence of hernias. Low transverse scars well healed. LYMPHATICS: R inguinal lymphadenopathy palpable--much smaller than previous visit; 1cm, mobile. No cervical lymphadenopathy palpated. MUSCULOSKELETAL: The upper and lower extremities had full range of movement and had equal muscle strength. SKIN: No rashes, lesions, or subcutaneous nodules noted. NEUROLOGIC: Cranial nerves were grossly intact. MENTAL STATUS: Affect was appropriate. PELVIC EXAM: VULVA: normal external genitalia, no vulvar lesions, RV septum clear, normal anal opening VAGINA: normal vaginal mucosa, no lesions CERVIX: palpation normal UTERUS: indistinguishable from pelvic mass ADNEXA: mass palpable in the posterior cul-de-sac, now somewhat mobile; feels smaller than previousexam PRESCRIPTIONS WRITTEN THIS VISIT: Requested Prescriptions No prescriptions requested or ordered in this encounter ASSESSMENT and PLAN: 1. Malignant neoplasm of ovary, unspecified laterality 2. Pre-op evaluation 3. Chemotherapy follow-up examination Narda is a 62yo with Stage 4b HGSOC(inguinal lymph node). She has completed 3 cycles of NACT with carbo/taxol/sima (held with cycle 3). She is here today for review her CT scan and discuss surgical planning. She has tolerated her treatment well thus far. TEMPUS testing blood collected; awaiting interval debulking surgery for tissue sampling CT CAP reviewed. Discussed surgical intervention. She has had a good chemical and radiographic response to her NACT.Her CA-125 is now within the normal range and her overall disease burden is significantly reduced on imaging. Surgical intervention will include at the minimum: hysterectomy, BSO omentectomy and removal of R inguinal LN. Will plan to remove all other disease and treated disease with plan for maximal tumor debulking to complete gross resection. Discussed this may or may not involve bowel resection which mayor may not result in temporary or permanent stoma formation. Will avoid this as best as we are able. Will plan to start with diagnostic laparoscopy and complete procedure as much as possible through minimally invasive technique but will need at least some form of laparotomy incision for omentectomy.This may end up being a large midline vertical incision but will not know for sure until the time of surgery. Risks to surgery reviewed in detail including bleeding and possible need for transfusion, pain expectations, infection (incisional, intra-abdominal, vaginal cuff, etc), potential damage to surrounding organs including the bowel, bladder, ureters, surrounding nerves and blood vessels. Consent form was reviewed and will be signed on day of surgery. Discussed that procedure will be performed under general anesthesia and risks of general anesthesia will be discussed by the Anesthesiologist on day of surgery. Post-surgery precautions and instructions were reviewed in detail. Surgical folder provided. We will resume chemotherapy after surgery for another 3 cycles; will plan to add bevacizumab back with cycle #5 and continue on as maintenance. Can also discuss addition of olaparib to maintenance given HRD status. She has consultation with genetic counselor scheduled. She had the opportunity to ask questions which were answered to satisfaction. She opted for diagnostic laparoscopy, DANETTE BSO, omentectomy, tumor debulking, R inguinal lymph node dissection and any other indicated procedures. Pre-op: T&S, CBC, BMP--PACE eval Pre-op ppx: SCDs, 5000 subq heparin, Ancef 2g Surgery admit: yes Anticoagulation at discharge: yes Anticipated surgical date: 08/06/23 Return to clinic: 2w post op Thank you for involving [facility] Gynecologic Oncology in the care of this patient. Aviva Humphries MD H&P Pre-Op Update I have seen and examined the patient. There are no changes from when I saw her in the office. I have reviewed pre-operative labs and PACE appointment documentation. I have reviewed relevant imaging. Consent reviewed in detail and signed by all parties. All questions answered. Plan: to OR for diagnostic laparoscopy DANETTE BSO omentectomy, tumor debulking R inguinal lymph node dissection and any indicated procedures To OR when all teams ready Aviva Humphries MD [facility] Gynecologic Oncology OCHEMIST documented in this encounter Consult Notes * Jennifer Moffett, RD - 08/07/2023 3:21 PM CSTAssociated Order(s): IP CONSULT TO NUTRITION SERVICES Images from the original note were not included. CLINICAL DIETITIAN PROGRESS NOTE [facility] Nutrition Consult: [facility] [place] [facility] PMHx: 64yo who presented to the ED 03/2022 with symptoms of abdominal distension. A CT scan was performed revealing a large ovarian mass with carcinomatosis, inguinal and pelvic LAD and thickening of the stomach wall. Stage IVB HSGSOC s/p NACT x3 now POD#1 s/p IDS of diagnostic laparoscopy, DANETTE-BSO complete omentectomy and tumor debulking with repair of bladder injury. Food and Nutrition Related History: Pt is pleasant, eager to get NG tube out, hoping tonight. Says everyone is very worried she isn't eating enough, but says she is still eating. Think much of her wtloss is from paracentesis. Says she was petite prior, UBW was closer to 120# after menopause she says. Agree recent significant loss is d/t fluid fluctuation. She does report some difficult eating shortly after starting chemo treatment as she was constipated and then not feeling well. Think she hasbeen doing better though and managing the constipation better as well. She does drink CIB at home, doesn't like Ensure at all. Agrees to have here once diet advances and willing to also try milkshake. Discussed with her the importance of po intake, especially protein post op. She was small at baseline, likely with few stores prior to everything. Says she was 103# when she came in for surgery. NFPE shows muscle/fat losses. Pt meets severe PCM criteria. Assessment: Anthropometrics: Height: 5' 6 (167.6 cm) (08/07/23 014) Weight: 46.7 kg (103 lb) (08/07/23146) Body mass index is 16.62 kg/m??. Rico body weight: 59.3 kg (130 lb 11.7 oz) Admit weight: Weight: 46.7 kg (103 lb) (08/07/23 014) Wt Readings from Last 10 Encounters: 08/07/23 46.7 kg (103 lb) 07/29/23 46.4 kg (102 lb 6.4 oz) 07/22/23 45.8 kg (101 lb) 07/09/23 46 kg (101 lb 6 oz) 06/18/23 45.9 kg (101 lb 3.2 oz) 05/25/23 51.2 kg (112 lb 14.4 oz) 05/18/23 51.5 kg (113 lb 9.6 oz) 05/13/23 51.5 kg (113 lb 9.6 oz) 04/24/23 51.2 kg (112 lb 12.8 oz) Last seven weights (if available) from 07/10/23 1703 to 08/07/23 1702 (Last 7 readings): Weight Weight Method 08/07/23 0147 46.7 kg (103 lb) Actual 08/06/23 1050 46.7 kg (103 lb) Actual Past Medical History: Diagnosis Date COPD (chronic obstructive pulmonary disease) with emphysema History of chemotherapy Hyperlipidemia Ovarian cancer 04/2023 s/p chemotherapy Smoking greater than 20 pack years Lab Results Component Value Date/Time NA 137 08/07/2023 04:25 AM K 4.2 08/07/2023 04:25 AM CL 103 08/07/2023 04:25 AM BUN 11 08/07/2023 04:25 AM CREAT 0.76 08/07/2023 04:25 AM GLUCOSE 207 (H) 08/07/2023 04:25 AM CA 8.6 08/07/2023 04:25 AM ALBUMIN 4.0 07/09/2023 09:02 AM GFR >60 08/07/2023 04:25 AM MG 2.0 07/09/2023 09:02 AM No results found for: HGBA1C , [id number] Pert Meds: D5LR, dilaudid Food Allergies: No known food allergies Skin: abd incisions, thigh wound SGA Assessment: Percent wt change: Percentage of Weight Loss: (says wt fluctuated, think loss with ascites/paracentesis and now surgery) (08/07/231599) During the past 2 wks pt reports wt has decreased (1) Percent energy intake: Percentage of Energy: < 75% for > or equal to 1 month (severe-chronic)(08/07/231599) Food intake in past 1 mo: less than usual (1) Patient reports now taking: normal food but less than normal amount (1) C/o the following symptoms in past 2 weeks: constipation (1) Nutrition Prescription: DIET NPO Sips w/Meds, Intake: NPo Nutrition intake is meeting less than 50% of recommended nutritional needs D: Acute on Chronic Severe Protein Calorie Malnutrition r/t inability to consume adequate nutritionas evidenced by loss of muscle mass and/or subcutaneous fat inadequate nutrient intake compared to estimated or measure nutrient requirements Percentage of Energy: < 75% for > or equal to 1 month (severe-chronic) (08/07/231599) Percentage of Weight Loss: (says wt fluctuated, think loss with ascites/paracentesis and now surgery) (08/07/231599) Biceps and triceps: Very little space between fingers, or fingers touch (severe) (08/07/231599) Subcutaneous Fat Loss Assessment: Severe fat loss (08/07/231599) Temporal: Flattened, slight but increasing depression (moderate) (08/07/23 1600) Clavicle: Protruding/prominent bone (severe)(08/07/231599) Shoulder (deltoid muscle): Szyakiil-vm-ozg joint looks square. Bones prominent. Acromion protrusion quite prominent (severe) (08/07/23 1600) Interosseous: Depressed between thumb/foref juliana (severe) (08/07/231599) Thigh (quadriceps muscle): Quads can be significantly reduced (squeezed). Depression on inner thigh, obviously thin (severe) (08/07/23 1600) Knee: Knee bone is square and prominent, no muscle mass (severe) (08/07/231599) Calf (gastrocnemius muscle): Definite tissue re duction. Thin, flat, no muscle definition (severe) (08/07/231599) Muscle Wasting Assessment: Severe (08/07/231599) Nutrition Needs: 9249-7891 kcal (35-40 kcal/kg) 70 g protein (1.5 g/kg - post-op) I:Nutrition Intervention: Sending CIB in skim milk (any flavor) per preference and milkshake (any flavor) once diet advances Discussed importance of po intake and protein post-op (likes yogurt, cottage cheese, and meats as well) Monitor intake closely, may need to consider nutrition support if unable to advance diet or meet nutrition needs Malnutrition Recommendations: Oral supplements;See dietitian recommendations in Care Plan note (08/07/231599) Goal: Consume 75% of meals/ supplements M/E: 1. Continue to monitor: Anthropometrics, Digestive, Skin, and Biochemical data 2. Follow up every 4-7 days and as needed. 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 Newby, resident EBL 300 Drains: Nieto, NGT Indications: 62yo with Stage IVB HGSOC s/p NACT with good response to treatment in need of tumor debulking surgery Findings: Normal vulva On bimanual exam, normal vagina and cervix, mobile uterus, mass palpable in the posterior cul-de-sac, mobile; palpable R inguinal lymph nodes On laparoscopy Upper abdomen: liver surface smooth, normal gallbladder, diaphragms with evidence of previous tumorstudding, now with residual scar, on R kyle-diaphragm, <1cm tumor nodule still present just above the dome of the liver. The omentum had both treated and residual disease, normal small intestine In the pelvis, the uterus was small and normal in appearance, the L ovary was normal in appearance,the L fallopian tube had evidenceo f tumor studding, the R ovary with enlarged, ~6-7 both cystic and solid, the sigmoid colon was normal with adhesion to the R ovarian tumor and treated tumor rind, the cul-de-sac was free from tumor Mini-laparotomy (low transverse) was performed for completion of hysterectomy following bladder injury and primary repair of bladder; cystoscopy then performed with brisk jets from bilateral ureters,repair water tight; Rk powder placed over vaginal cuff and bilateral retro-peritoneal spaces Upper abdominal mini-laparotomy (midline vertical) performed for complete omentectomy--infra-colic omentum was treated tumor deposits; gastro-colic ligament with residual tumor deposit 2-3cm in size;tumor rind densely adherent to the stomach; the lesser sac was explored with evidence of tumor scarring, no active tumor or nodule appreciated, normal pancreas Small bowel was run from the ligament of treitz to the terminal ileum; evidence of small tumor scaron mesentery (no active tumor); single small nodule removed; para-colic gutters without evidence oftumor, kidneys palpate normal, no palpable pelvic or abdominal adenopathy The falciform ligament was mobilized to access the diaphragm surface; small amount of tumor studding remained on the R hemidiaphragm which was cauterized Palpable R inguinal lymph nodes were removed, they were dark in color No gross residual disease at completion of case, tumor scar appreciated Specimens: ID Type Source Tests Collected by Time 1 : Blood Blood TYPE AND SCREEN (Canceled) Aviva Humphries MD 08/06/2023 1901 A : Pelvic Washings Washings Pelvis CYTOLOGY, NON GYNE Aviva Humphries MD 08/06/2023 1716 B : Tissue Uterus, Cervix, Ovaries, bilateral, Fallopian tubes, bilateral PATHOLOGY Aviva Humphries MD 08/06/2023 1839 C : OMENTUM Tissue Omentum PATHOLOGY Aviva Humphries MD 08/06/20232004 D : MESENTRY OF SMALL BOWEL NODULE Tissue Small Intestine PATHOLOGY Aviva Humphries MD 041 E : DIAPHRAMATIC TUMOR Tissue Diaphragm PATHOLOGY Aviva Humphries MD 08/06/20232111 F : RIGHT INGUINAL LYMPH NODES Tissue Lymph nodes, right PATHOLOGY Aviva Humphries MD 08/06/20232121 Implants: Implant Name Type Inv. Item Serial No. Head Up Operator Lot No. LRB No. Used Action HEMOSTAT RK AH POWDER 3GM [id number] - [id number] Hemostatic HEMOSTAT KR AH POWDER 3GM [id number] BARD DAVOL [id number] N/A 1 Implanted HEMOSTAT RK AH POWDER 3GM [id number] - [id number] Hemostatic HEMOSTAT RK AH POWDER 3GM [id number] BARD DAVOL [id number] N/A 1 Implanted Complications Cystotomy, repaired primariliy Procedure Details: On the day of surgery Narda was seen in the pre-operative holding area where correct procedure and consent were reviewed in detail. All questions were answered and the consent was signed by all parties. There were no changes to her medical history. She received pre-operative heparin and abdominal block with anesthesia. She was taken to the operating room where GETA was obtained without difficulty. She was placed in the dorsal lithotomy position in [facility]. A time out was performed verifying correct patient and procedure. A bimanual exam was performed with above noted findings. She was prepped and draped in the usual sterile fashion. She received Gentamicin and Clindamycin. An incision was made at Brito's point. A 5mm laparoscope was advanced into the abdomen under direct visualiztion. The abdomen was insufflated to 15 mmHg with CO2. Site of entry assessed, no evidence of injury.Abdominal survey completed as noted above. Two additional 5mm trochars were placed in the R and L lower abdomen under direct visualization. A 5mm umbilical trochar was then placed. Pelvic washings were obtained. Attention then turned to the vagina where the cervix was visualized and grasped with a single tooth tenaculum. The cervix was serially dilated and the uterus sounded to 6cm. The Rumi2 with size 6 tandem and 3cm Theresa cup was assembled. A figure of 8 stitch was placed in the cervix. The man ipulator was placed snuggly around the cervix under direct visualization using the laparoscope. Attention returned to the abdomen. The L IP ligament was visualized and elevated. The retroperitoneum ws entered lateral to the IP ligament. The ureter was identified and vesiculating normally. The IP ligament was cauterized and transected using the Ligasure. The posterior peritoneum was dropped off the Theresa cup lateralizing the ureter. The round ligament was cauterized and transected using the ligasure. The vesicouterine space was thickened and scarred suggesting presence of treated cancer. The space was developed; however during dissection air was noted in the nieto bag indicating that a cystotomy occurred. The uterine arteries were isolated, cauterized, transected using the Ligasure. Attention was turned to the R side. The R ureter was identified, secured and transected using the Ligausre. The posterior peritoneum ws dropped. The R fallopian tube and utero-ovarian ligament were secured and transected using the Ligasure. The vesicouterine space was developed on the R side. Here there wasles scarring. The uterine vessels were secured and transected. Decision made to proceed with mini-laparotomy via low transverse incision to complete hysterectomy and for repair of cystotomy. A 5cm incision was made at site of previous incision using the scalpel. This was carried down and through the fascia using bovie electrocautery. The fascia was from the underlying muscle. The musclewas in the midline and the peritoneal cavity was entered sharply. Peritoneal incision wasextended bilaterally using bovie electrocautery. The R fallopian tube and ovary were then removed. A small wound protector was placed. The uterus was elevated through the incision. The posterior peritoneum was further dropped. The vesico-uterine space was formally developed. Sequential cardinal ligament pedicles were secured bilaterally using the Ligasure. Curved Deepa-Raul clamps were placed below the level of the cervix and the uterus, cervix, L fallopian tube and ovary were removed using scissors. Cervix was evaluated and complete removal appreciated. The angles of the vagina were secured with 0 polysorb in a Deepa fashion. Remaining cuff was re-approximated with interrupted stitches in a figure of 8 fashion. The pelvis was irrigated. Additional suture placed for hemostasis where indicated. The bladder was then evaluated. A small <1cm full thickness defect was found at the L side of the bladder dome. Prior to repair, complete bilateral ureterolysis was performed. Bilateral ureters were normal in size and found to be vesiculating normally and frequently. The cystotomy was then repaired in three layers. The first with 3.0 polysorb in a running fashion to re-approximate the bladder mucosa. A second sero-muscular imbricating layer was performed in an interrupted fashion. Serosal layer was then re-approximated in an interrupted fashion. A cystoscopy was then performed showing well approximated bladder mucosa, brisk jets from bilateral UO and the repair was water tight abdominally. A new nieto catheter was then placed. The pelvis was again irrigated. All pedicles wereassessed and found to be hemostatic. Rk powder was placed over vaginal cuff and in retroperitoneal spaces. The peritoneum was re-approximated with 3.0 polysorb in a running fashion. The fascia was re-approximated with 0 Maxon in standard running fashion. The subcutaneous tissue was irrigated. At tention then turned to the upper abdomen where ~ 7cm midline vertical skin incision was made just below the xiphoid traveling toward the umbilicus using the scalpel. The incision was carried down andthrough the fascia using bovie electrocautery. The peritoneum was entered sharply. The peritoneal incision was extended using bovie electrocautery. A medium wound protector was then placed. The infra-colic omentum was exteriorized and was removed using combination of bovie electrocautery and the Ligasure. Next the gastro-colic ligament was evaluated with above noted findings. The gastrocolic ligament was then removed starting at the stomach and moving caudad toward the mesentery of the colon. De nse tumor rind was adherent to the stomach. This was carefully from the stomach using blunt and sharp dissection, vessels were suture ligated where indicated. The lesser sac was explored with above noted findings. Complete removal of the omentum was achieved. The upper abdomen was furtherexplored with above noted findings. The falciform ligament was mobilized in a cephalad direction togain more access tot he R hemidiaphragm. Small amount of residual tumor studding was appreciated. Asmall residual <1cm tumor nodule was present on the hemidiaphragm, this was peeled away from thediaphragm. Remaining tumor scar/studding was cauterized with bovie electrocautery. Abdomen was irrigated. Adequate hemostasis. The fascia was re-approximated with 0 Maxon in standard running fashion.The subcutaneous tissues were irrigated. The R inguinal lymph nodes were palpated. The femoral pulse was palpated. A small incision was made superior and parallel to the inguinal fold using the scalpel. This was carried down and through lalo's fascia using bovie electrocautery. The abnormal lymph nodes were grasped with Heather clamps and elevated. They were removed from surroudning tissue using bovie electrocautery. Adequate hemostasis. The dissection bed was irrigated. Lalo's fascia was re-approximated using 3.0 polysorb. The subcutaneous tissues were irrigated. The skin at all incision si chandler was re-approximated with 4.0 biosin in standard fashion. Incisions were covered with either silver dressing or exofin. The vagina was examined, no lacerations, cuff well approximated, nothing left in the vagina. Sponge, needle, instrument counts were correct x2. She tolerated the procedure well. Anesthesia was reversed and she was taken to the recovery room in stable condition. The nieto catheter will be maintained for 3-7 days post-operatively due to cystotomy. The NGT will be maintained for 1-3 days given stomach dissection. Sign out/time out completed. Aviva Humphries MD [facility] Gynecologic Oncology OCHEMIST * Brief Op Note - Francesca Newby MD - 08/06/2023 9:52 PM CST Brief Postoperative Note November Eileen Tiarra [id number] Pre-operative Diagnosis: Malignant neoplasm of ovary, unspecified laterality Drug-induced androgenic alopecia Post-Op Diagnosis: Post-Op Diagnosis Codes: * Malignant neoplasm of ovary, unspecified laterality [C56.9] * Drug-induced androgenic alopecia [L64.0] Procedure-Anesthesia: HYSTERECTOMY ABDOMINAL TOTAL SALPINGO-OOPHORECTOMY LAPAROSCOPIC URETEROLYSIS, Bilateral BLADDER REPAIR CYSTOURETHROSCOPY OMENTECTOMY DIAPHRAGM BIOPSY - Chest INGUINAL OR FEMORAL LYMPH NODE BIOPSY/EXCISION, Right Anesthesia Type: General Surgeon(s) and Role: * Aviva Humphries MD - Primary Additional CPT Codes: *No additional CPT codes listed in log* Procedure Start: 1722 Procedure End: 2150 Findings: Please see full operative report. Specimens: ID Type Source Tests Collected by Time 1 : Blood Blood TYPE AND SCREEN (Canceled) Aviva Humphries MD 08/06/2023 1901 A : Pelvic Washings Washings Pelvis CYTOLOGY, NON GYNE Aviva Humphries MD 08/06/2023 1716 B : Tissue Uterus, Cervix, Ovaries, bilateral, Fallopian tubes, bilateral PATHOLOGY Aviva Humphries MD 08/06/2023 1839 C : OMENTUM Tissue Omentum PATHOLOGY Aviva Humphries MD 08/06/20232004 D : MESENTRY OF SMALL BOWEL NODULE Tissue Small Intestine PATHOLOGY Aviva Humphries MD 041 E : DIAPHRAMATIC TUMOR Tissue Diaphragm PATHOLOGY Aviva Humphries MD 08/06/20232111 F : RIGHT INGUINAL LYMPH NODES Tissue Lymph nodes, right PATHOLOGY Aviva Humphries MD 08/06/20232121 Implants: Implant Name Type Inv. Item Serial No. Head Up Operator Lot No. LRB No. Used Action HEMOSTAT RK AH POWDER 3GM [id number] - [id number] Hemostatic HEMOSTAT KR AH POWDER 3GM [id number] BARD DAVOL [id number] N/A 1 Implanted HEMOSTAT RK AH POWDER 3GM [id number] - [id number] Hemostatic HEMOSTAT RK AH POWDER 3GM [id number] BARD DAVOL [id number] N/A 1 Implanted Estimated Blood Loss: 300 mL Complications: None Francesca Newby MD YEAST PUSHER Resident, PGY-3 OCHEMIST documented in this encounter Miscellaneous Notes * Result Encounter Note - Aviva Humphries MD - 08/17/2023 2:08 PM ASTROCHEMIST Please tell November that I have reviewed her pathology. The report is as expected and I did remove all visible tumor. I will see her back at her post op visit and would like to get started back on chemotherapy 3-4 weeks after surgery if she is up for it. OCHEMIST * Query - Aviva Humphries MD - 08/17/2023 10:21 AM CST Extension List Title - Metastases Please respond within 48 hours. Thank you! The authenticated query note is part of the Legal Health Record Patient Name: Narda Eileen Tiarra Admission Date: 08/06/2023 [facility] #: [id number] Please continue to document the appropriate diagnosis for the clinical information below, in your Progress Notes, including through the Discharge Summary. Please keep the Problem List updated for continuity of care. (.hprobl or .probhospall) Clinical Indicators: FINAL DIAGNOSIS Result: A. Uterus with cervix and bilateral fallopian [...] involved by carcinoma. - Benign paratubal cyst. Note: To answer the following question(s), please click EDIT button on the activity bar then click F2 in front of the highlighted area(s). Per coding guidelines, metastasis is defined as extension outside primary organ or metastasis to a distant organ or site. Note: To answer the following question(s), please click EDIT button on the activity bar then click F2 in front of the highlighted area(s). Question 1 of 2: Clarify suspected or known primary site of neoplasm: Primary site (Specify site and laterality) Primary unknown Other (Specify) Answer: Primary site (Specify site and laterality) bilateral ovaries Question 2 of 2: Clarify suspected or known secondary site(s): Extension beyond primary site or organ (Specify site and laterality) Distant metastasis (Specify site and laterality) Other (Specify) Unable to determine Answer: Distant metastasis (Specify site and laterality) see pathology report for all positive locations including the R inguinal lymph nodes In responding to this query, please exercise your independent professional judgment. Please be advised that coding regulations for inpatient admissions allow the physician to document presumptive/probable diagnoses. The fact that a question is asked does not imply that any particular answer is desired or expected. Thank you. Query initiated by Yue Willett. For questions of this query contact [email or web address]. OCHEMIST * Query - Aviva Humphries MD - 08/17/2023 8:18 AM CST Please respond within 48 hours. Thank you! The authenticated query note is part of the Legal Health Record Patient Name: Narda Mayen Admission Date: 08/06/2023 [facility] #: [id number] Clinical indicators and/or treatment for this patient include: FINAL DIAGNOSIS -- -- -- [facility] Result: A. Uterus with cervix and bilateral fallopian [...] nodes with metastatic carcinoma (2/2). at 1720 Note: To answer the following question(s), please click EDIT button on the activity bar then click F2 in front of the highlighted area(s). Question 1): Do you concur with the diagnosis of Carcinoma of Bilateral ovaries and Bilateral Fallopian tubes? This query does not imply that you have personally reviewed the pathology slides, or that you are apathologist. I agree with the diagnosis above, as reported by the pathologist, and will use the information to guide further treatment as needed. No, I do NOT agree with the diagnosis above, as reported by the pathologist. Other (Specify) Unable to determine Answer:I agree with the diagnosis above, as reported by the pathologist, and will use the information to guide further treatment as needed. Question 2): Do you concur with the diagnosis of Endometial Polyp? This query does not imply that you have personally reviewed the pathology slides, or that you are apathologist. I agree with the diagnosis above, as reported by the pathologist, and will use the information to guide further treatment as needed. No, I do NOT agree with the diagnosis above, as reported by the pathologist. Other (Specify) Unable to determine Answer:I agree with the diagnosis above, as reported by the pathologist, and will use the information to guide further treatment as needed. Question 3): Do you concur with the diagnosis of Metastatic carcinoma of mesentery, small bowel nodule? This query does not imply that you have personally reviewed the pathology slides, or that you are apathologist. I agree with the diagnosis above, as reported by the pathologist, and will use the information to guide further treatment as needed. No, I do NOT agree with the diagnosis above, as reported by the pathologist. Other (Specify) Unable to determine Answer:I agree with the diagnosis above, as reported by the pathologist, and will use the information to guide further treatment as needed. Question 4): Do you concur with the diagnosis of Omentum, biopsy: - Metastatic carcinoma. This query does not imply that you have personally reviewed the pathology slides, or that you are apathologist. I agree with the diagnosis above, as reported by the pathologist, and will use the information to guide further treatment as needed. No, I do NOT agree with the diagnosis above, as reported by the pathologist. Other (Specify) Unable to determine Answer:I agree with the diagnosis above, as reported by the pathologist, and will use the information to guide further treatment as needed. Question 5): Do you concur with the diagnosis of Lymph node, right inguinal lymph node, with metastatic carcinoma (2/) This query does not imply that you have personally reviewed the pathology slides, or that you are apathologist. I agree with the diagnosis above, as reported by the pathologist, and will use the information to guide further treatment as needed. No, I do NOT agree with the diagnosis above, as reported by the pathologist. Other (Specify) Unable to determine Answer:I agree with the diagnosis above, as reported by the pathologist, and will use the information to guide further treatment as needed. Question 6): Do you concur with the diagnosis of Diaphragm, - Metastatic carcinoma. This query does not imply that you have personally reviewed the pathology slides, or that you are apathologist. I agree with the diagnosis above, as reported by the pathologist, and will use the information to guide further treatment as needed. No, I do NOT agree with the diagnosis above, as reported by the pathologist. Other (Specify) Unable to determine Answer:I agree with the diagnosis above, as reported by the pathologist, and will use the information to guide further treatment as needed. In responding to this query, please exercise your independent professional judgment. Please be advised that coding regulations for inpatient admissions allow the physician to document presumptive/probable diagnoses. The fact that a question is asked does not imply that any particular answer is desired or expected. Thank you, Query initiated by Yue Willett. For questions of this query contact [email or web address]. OCHEMIST * Query - Aviva Humphries MD - 08/12/2023 8:05 AM CST Please respond within 48 hours. Thank you! The authenticated query note is part of the Legal Health Record Patient Name: Narda Mayen Admission Date: 08/06/2023 [facility] #: [id number] Clinical indicators and/or treatment for this patient include: 08/07/23: Organ Tuner Electronic note ASPEN Malnutrition Assessment and Findings Subcutaneous Fat Loss Assessment: Severe fat loss (08/07/231599) Muscle Wasting Assessment: Severe (08/07/231599) Percentage of Energy: < 75% for > or equal to 1 month (severe-chronic) (08/07/231599) Percentage of Weight Loss: (says wt fluctuated, think loss with ascites/paracentesis and now surgery) (08/07/231599) Malnutrition Decision Nutrition Diagnosis: Severe protein-calorie malnutrition (08/07/231599) BMI BMI (Calculated): (!) 16.63 (08/07/23 0147) Malnutrition Recommendations Malnutrition Recommendations: Oral supplements;See dietitian recommendations in Care Plan note (08/07/231599) Note: To answer the following question(s), please click EDIT button on the activity bar then click F2 in front of the highlighted area(s). Question: Indicate if there is an associated diagnosis that correlates with the clinical indicatorslisted above: Protein calorie malnutrition Moderate protein calorie malnutrition Severe protein calorie malnutrition Unspecified protein calorie malnutrition Other (Specify) Unable to determine Answer: Protein calorie malnutrition Severe protein calorie malnutrition In responding to this query, please exercise your independent professional judgment. Please be advised that coding regulations for inpatient admissions allow the physician to document presumptive/probable diagnoses. The fact that a question is asked does not imply that any particular answer is desired or expected. Thank you This query was initiated by Christy Segura RN, MSN.. For questions on this coding query please contact me at Christy Segura RN, MSN Clinical Corridor Redevelopment Manager-Sewer And Inspector, Internal Pool [email or web address] References CLINICAL CRITERIA MALNUTRITION TYPES Serum proteins such as albumin and prealbumin are not included as defining characteristics of malnutrition because recent evidence analysis shows that serum levels of these proteins do not change in response to changes in nutrient intake. AND (Academy of Nutrition and Dietetics) Evidence Analysis Library 2009 a,b,c,d ASPEN Criteria Malnutrition in the Context of Acute Illness or Injury Malnutrition in the Context of Chronic Illness Malnutrition in the Context of Social or Environmental Circumstances Clinical Diagnosis Non-severe, Moderate Malnutrition Severe Malnutrition Non- severe, Moderate Malnutrition Severe Malnutrition Non-severe, Moderate Malnutrition Severe Malnutrition Documentation to support coding ? Moderate Malnutrition ? Moderate Protein Calorie Malnutrition Severe Protein Calorie Malnutrition ? Moderate Malnutrition ? Moderate Protein Calorie Malnutrition Severe Protein Calorie Malnutrition ? Moderate Malnutrition ? Moderate Protein Calorie Malnutrition Severe Protein Calorie Malnutrition CLINICAL CHARACTERISTIC Energy intake1 Malnutrition is the result of inadequate food and nutrient intake or assimilation, thus recent intake compared to estimated requirements is a primary criterion defining malnutrition. The RD obtains or reviews the food and nutrition history, estimates optimum energy needs, compares them with estimates of energy consumed and reports inadequate intake as a percentage of estimated energy requirementsover time. < 75% of estimated energy requirement for > 7 days <= 50% of estimated energy requirement for >= 5 days < 75% of estimated energy requirement for >= 1 month <= 75% of estimated energy requirement for >= 1 month < 75% of estimated energy requirement for >= 3 months <= 50% of estimated energy requirement for 1 >= month Interpretation of Weight Loss2-[address] weight in light of other clinical findings, including the presence of under hydration or over hydration. The RD assesses weight ticket dispenser changer time reported as a percentage of weight lost from baseline. % Time % Time % Time % Time % Time % Time 1-2%: 1week 5%: 1 month 7.5%: 3 months > 2%: 1 week >5%: 1 month >7.5%: 3 months 5%: 1 month 7.5%: 3 months 10%: 6 months 20%: 1 year > 5%: 1 month >7.5%: 3 months >10%: 6 months >20%: 1 year 5%: 1 month 7.5%: 3 months 10%: 6 months 20%: 1 year > 5%: 1 month >7.5%: 3 months >10%: 6 months >20%: 1 year Malnutrition in the Context of Acute Illness or Injury Malnutrition in the Context of Chronic Illness Malnutrition in the Context of Social or Environmental Circumstances Clinical Diagnosis Non-severe, Moderate Malnutrition Severe Malnutrition Non- severe, Moderate Malnutrition Severe Malnutrition Non-severe, Moderate Malnutrition Severe Malnutrition Documentation to support coding ? Moderate Malnutrition ? Moderate Protein Calorie Malnutrition Severe Protein Calorie Malnutrition ? Moderate Malnutrition ? Moderate Protein Calorie Malnutrition Severe Protein Calorie Malnutrition ? Moderate Malnutrition ? Moderate Protein Calorie Malnutrition Severe Protein Calorie Malnutrition CLINICAL CHARACTERISTIC Body Fat. Loss of subcutaneous fat (eg orbital, triceps, fat overlying the ribs). Mild Moderate Mild Severe Mild Severe Muscle Mass. Muscle loss--for example, wasting of the temples (temporalis muscle); clavicles (pectoralis and deltoids); shoulders (deltoids); interosseous muscles; scapula (latissimus dorsi, trapezious, deltoids); thigh (quadriceps); and calf (gastrocnemius). Mild Moderate Mild Severe Mild Severe Fluid Accumulation. The RD evaluates generalized or localized fluid accumulation evident on exam (extremities, vulvar/scrotal edema or ascites). Weight loss is often masked by generalized fluid retention (edema), and weight gain may be observed. Mild Moderate to severe Mild Severe Mild Severe Reduced Leak Detector Strength7 Consult standards supplied by the cover inspector of the measurement device. N/A Measurably reduced (Not recommended in ICU) N/A Measurably reduced for age/gender N/A Measurably reduced for age/gender OCHEMIST * Query - Aviva Humphries MD - 08/12/2023 7:58 AM CST Please respond within 48 hours. Thank you! The authenticated query note is part of the Legal Health Record Patient Name: Narda Arellano Tiarra Admission Date: 08/06/2023 [facility] #: [id number] Dear Doctor, Please continue to document the appropriate diagnosis for the clinical information above, in your Progress Notes, including through the Discharge Summary. Please keep the Problem List updated for continuity of care. (.hprobl or .probhospall) Clinical indicators and/or treatment for this patient include Progress notes: Ovarian Cancer Note: To answer the following question(s), please click EDIT button on the activity bar then click F2 in front of the highlighted area(s). Question: Clarify the laterality for Ovarian Cancer , documented in progress notes. Left Right Bilateral Answer: Right In responding to this query, please exercise your independent professional judgment. Please be advised that coding regulations for inpatient admissions allow the physician to document presumptive/probable diagnoses. The fact that a question is asked does not imply that any particular answer is desired or expected. Thank you, This query was initiated by Christy Segura RN, MSN. For questions on this coding query please contact me at Christy Segura RN, MSN Clinical Corridor Redevelopment Manager-Sewer And Inspector, Internal Pool [email or web address] OCHEMIST * Care Plan - Gisell Rahman RN - 08/12/2023 1:55 AM CST Report received from JANET Vera. Pt was A/O x4, denied pain at this time, breathing was even and unlabored. Assessment completed; meds given per OCT. Pt did not request any PRN pain meds. Pt was ambulating independently. Safety and fall risk measures in place. Pt's personal items and call light in reach. Problem: Peripheral Neurovascular Goal: Achieve optimal peripheral neurovascular function by discharge or maintain baseline function Outcome: Variance Problem: Nutrition/Endocrine Goal: Achieve optimal nutrition and fluid status to meet metabolic needs throughout hospitalization Outcome: Variance Problem: Skin Goal: Maintain skin integrity and/or promote wound healing by discharge Outcome: Variance OCHEMIST * Care Plan - Chuy Wills RN - 08/11/2023 5:28 PM CST Narda Mayen was Oriented x 4 on room air today. Vital signs were stable. Narda Mayen was resting comfortably and eating poorly, Up without assistance, independent. No complaints of pain this shift. Scheduled ibuprofen and acetaminophen given. Using the bathroom, nieto in place to dependent gravity. Nieto removed at 1300 per [employer] Representative-onc team orders following cystogram. V oided 3hrs post nieto removal. BM this shift. Daughter to bedside this shift. Blood sugars not monitored. Plan to DC tomorrow morning once orders are received. OCHEMIST * Therapy Evaluation - Ramiro Mayen Physical Therapist - 08/11/2023 2:40 PM CST PT attempted to see pt at this time but pt politely refused due to increased fatigue from having a busy day and working with OT early. PT will continue to monitor pt status and work with as appropriate. [id number] OCHEMIST * Treatment Plan - Jitendra Godinez, RT - 08/11/2023 11:44 AM CST Images from the original note were not included. [facility] Medication & Flush Protocol-Radiology Procedures - Radiology Procedures [facility] Approved by: [facility], [facility] - Medical Executive Committee Approval Date: 04/24/2022 ORDERS ARE ENTERED ???PER PROTOCOL?? Enter the protocol in the patient's electronic health record using smartPremiserase: .radiologymedicationprotocol Communication Orders: If required to complete procedure, echo technologist or nurse may place indwelling nieto catheter Medication Orders: Sodium chloride 0.9% (normal saline) flush 10 mLs PRN for saline lock or medication administration. For respiratory distress, initiate oxygen and/or increase O2 to maintain saturation greater than 90%. For all invasive procedures: Obtain Lidocaine 1% for intra-procedure administration. If Lidocaine 1% unavailable, may substitute Lidocaine 2% PROCEDURE SPECIFIC RADIOLOGY MEDICATIONS *Any exceptions to these contrast protocols must be approved by a Radiologist and documented in theEHR Progress Notes. When multiple medications are listed with the comment ???OR?? them, select first option until challenges from product availability make this option unavailable DIAGNOSTIC RADIOLOGY CONTRAST PROTOCOLS ADULTS: PROCEDURE DOSAGE ARTHROGRAMS (shoulder, wrist, hip, knee, TMJ) Iopamidol (ISOVUE-300) 61% Radiologist to administer up to 30mL, intraarticularly, one time. If MRI ordered, add 0.15mLGadobenate Dimeglumine (Multihance) to the iopamidol and mix well. (If more than 30mL is desired, radiologist may request that 50mL of iopadmidol (ISOVUE-300) 61% be mixed with 0.25mL of gadobenate dimeglumine (Multihance) BARIUM ENEMA (with or without AIR CONTRAST) Barium Sulfate (Liquid Polibar Plus) 96% (w/w) 287u=252vR mixed with 1500mL of water, radiologist to administer up to 2000mL rectally, one time only BARIUM ENEMA WATER SOLUBLE Iopamidol (ISOVUE-250) 51%, 800mL + CYSTOGRAFIN 30%, 900mL, radiologist to administer up to 1700 mL of combined fluids, rectally, one time. Radiologist may repeat if needed to complete procedure CYSTOGRAM CYSTOGRAFIN 30%, Radiologist to administer up to 300mL, instill into the bladder, one time. ESOPHAGUS BARIUM SWALLOW Radiologist to request one or more of the following products: Barium Sulfate (E-Z-HD) 98% oral suspension 340g = 135mL, orally, one time. Barium Sulfate (E-Z-PAQUE) 96% (w/w) oral suspension 176g = 240mL, orally, one time. E-Z Gas II effervescent granules 4g, one packet, orally, one time only E-Z Disk Barium Sulfate 700 mg Tab, orally, one time ESOPHAGUS BARIUM SWALLOW WATER SOLUBLE Iopamidol (ISOVUE) 370mg/mL oral solution, radiologist to administer up to 50mL, orally, one time OR Iohexol (OMNIPAQUE) 350mg/mL oral solution, radiologist to administer up to 50mL, orally, one time ESOPHAGUS BARIUM SWALLOW -BARIATRIC PROTOCOL Post surgery to 1 year = 50mL total volume water soluble: Iopamidol (ISOVUE) 370mg/mL oral solution 50mL OR Iohexol (OMNIPAQUE) 350mg/Ml 50mL oral solution After 1 year = no more than 236mL (8oz) total volume Liquid E-Z Paque (thin barium) NO Gas crystals MODIFIED BARIUM SWALLOW May use one or more of the following products, administered by Speech Language Pathologist: Barium tablet (E-Z Disk) 13mm = 700mg, up to one tablet, orally, one time. Barium Sulfate (E-Z-PAQUE) 96% oral (w/w) oral suspension up to 176g, orally, one time. May mix with food or liquid to achieve desired viscosity Barium Sulfate (E-Z-PASTE) 60% oral cream, up to 45g, orally, one time. May mix with food or liquidto achieve desired viscosity. HYSTEROSALPINGOGRAM Iopamidol (ISOVUE-300) 61%, provider to administer up to 30ml, vaginally, one time only INTRAVENOUS PYELOGRAM Iopamidol (ISOVUE-370) 76%, administer up to 85mL, intravenous, one time only. Volume of contrast injected determined by radiologist. MYELOGRAMS: CERVICAL Iopamidol (ISOVUE-M 300), 61% radiologist to administer up to 15mL, intrathecal, one time only THORACIC Iopamidol (ISOVUE-M 200) 41%, radiologist to administer up to 20mL, intrathecal, one time only LUMBAR Iopamidol (ISOVUE-M 200) 41%, radiologist to administer up to 20mL, intrathecal, one time only SMALL BOWEL SERIES Barium Sulfate (E-Z-Paque) 96% (w/w) oral suspension (Thin Barium), up to 352g =480mL orally, one time only. SMALL BOWEL SERIES WATER SOLUBLE Iopamidol (ISOVUE) 370mg/mL oral solution, 200mL, orally, one time OR Iohexol (OMNIPAQUE) 350 mg/mL oral solution, 200ml, orally, one time only URETHROCYSTOGRAM VOIDING And RETROGRADE URETHROGRAM Diatraizoate meglumine (Cystografin) 30%, up to 600 mL, instill into thebladder, one time only UPPER GI Radiologist to request one or more of the following products: Barium Sulfate (E-Z-HD) 98% oral suspension 340g = 135mL, orally, one time only. Barium Sulfate (E-Z-PAQUE) 96% (w/w) oral suspension 176g= 240mL, orally, one time only. UPPER GI WATER SOLUBLE Iopamidol (ISOVUE) 370mg/mL oral solution, 200mL, orally, one time OR Iohexol (OMNIPAQUE) 350 mg/mL oral solution, 200mL, orally, one time only UPPER GI AIR CONTRAST Radiologist to request one or more of the following products: Barium Sulfate (E-Z-HD) 98% oral suspension 340g, orally, one time only. Barium Sulfate (E-Z-PAQUE) 96% (w/w) oral suspension 176g, orally, one time. EZ Gas crystals, one packet, orally, one time only. UPPER GI - BARIATRIC PATIENT Post surgery to 1 year = 50mL total volume water soluble: Iopamidol (ISOVUE) 370mg/mL oral solution 50mL OR Iohexol (OMNIPAQUE) 350mg/Ml 50mL oral solution After 1 year = no more than 236mL (8oz) total volume Liquid E-Z Paque (thin barium) NO Gas crystals PORT CONTRAST INJECTION WITH FLUORO Iopamidol (Isovue-300) 61%, radiologist to administer up to 50ml, intravenous, one time only PEDIATRICS: For all procedures with an oral route, preferred route is oral; nasoenteric route may also be used.If needed, radiologist may place a nasoenteric tube to facilitate contrast administration PROCEDURE DOSAGE UPPER GI- Under Age 5 Barium Sulfate (E-Z-Paque) 96% (w/w) oral suspension (Thin Barium), up to 176g = 240mL orally, one time only. UPPER GI WATER SOLUBLE- Under Age 5 Radiologist to request one or more of the following products and select dose required: Iopamidol (ISOVUE) 370mg/mL oral solution, 200mL, orally, one time OR Iohexol (Omnipaque) 350 mg/mL oral solution, orally, one time only OR Iohexol (Omnipaque) 180 mg/mL oral solution, orally, one time only UPPER GI- Above Age 5 Radiologist to request one or more of the following products: Barium Sulfate (E-Z-HD) 98% oral suspension (Thick Barium), up to 340g = 135mL orally, one time only Barium Sulfate(E-Z-Paque) 96% (w/w) oral suspension (Thin Barium), up to 176g = 240mL orally, one time only EZ Gas Packet, 4g (one packet) orally, one time only. UPPER GI WATER SOLUBLE- Above Age 5 Iopamidol (ISOVUE) 370mg/mL oral solution, 200mL, orally, one time OR Iohexol (Omnipaque) 350 mg/mL oral solution, up to 200mL orally, one time only. SMALL BOWEL SERIES- Under Age 5 Barium Sulfate (E-Z-Paque) 96% (w/w) oral suspension (Thin Barium), up to 176g = 240mL orally, one time only SMALL BOWEL WATER SOLUBLE- Under Age 5 Radiologist to request one or more of the following products and select dose required: Iopamidol (ISOVUE) 370mg/mL oral solution, 200mL, orally, one time OR Iohexol (Omnipaque) 350 mg/mL oral solution, orally, one time only OR Iohexol (Omnipaque) 180 mg/mL oral solution, orally, one time only SMALL BOWEL SERIES- Above Age 5 Radiologist to request one or more of the following products: Barium Sulfate (E-Z-Paque) 96% (w/w) oral suspension (Thin Barium), up to 352g = 480mL orally, one time only. SMALL BOWEL SERIES WATER SOLUBLE- Above Age 5 Radiologist to request one or more of the following products: Iopamidol (ISOVUE) 370mg/mL oral solution, 200mL, orally, one time OR Iohexol (Omnipaque) 350mg/mL, up to 200mL orally, one time only ESOPHAGUS BARIUM SWALLOW- Under Age 5 Barium Sulfate (E-Z-Paque) 96% (w/w) oral suspension (Thin Barium), up to 176g = 240mL orally, one time only ESOPHAGUS BARIUM SWALLOW WATER SOLUBLE - Under Age 5 Radiologist to request one or more of the following products and select dose required: Iopamidol (ISOVUE) 370mg/mL oral solution, 200mL, orally, one time OR Iohexol (Omnipaque) 350 mg/mL oral solution, orally, one time only OR Iohexol (Omnipaque) 180 mg/mL oral solution, orally, one time only ESOPHAGUS BARIUM SWALLOW- Above Age 5 Radiologist to request one or more of the following products: Barium Sulfate (E-Z-HD) 98% oral suspension (Thick Barium), up to 340g = 135mL orally, one time only. Barium Sulfate (E-Z-Paque) 96% (w/w) oral suspension (Thin Barium), up to 176g = 240mL orally, one time only. EZ Gas Packet, 4g = 1 packet orally, one time only MODIFIED BARIUM SWALLOW- Above Age 5 May use one or more of the following products, administered bySpee Language Pathologist: Barium tablet (E-Z Disk) 700mg = 13mm, up to one tablet, orally, one time. Barium Sulfate 96% oral suspension (E-Z-PAQUE), up to 176g, orally, one time. May mix with food or liquid to achieve desired viscosity. Barium Sulfate (E-Z-PASTE) 60%oral cream, up to 45g, orally, one time. May mix with food or liquid to achieve desired viscosity. MODIFIED BARIUM SWALLOW-Under age 5 May use one or more of the following products, administered by Speech Language Pathologist: Barium Sulfate 96% oral suspension (E-Z-PAQUE), up to 176g, orally, one time. May mix with food or liquid to achieve desired viscosity. Barium Sulfate (E-Z-PASTE) 60% oral cream, up to 45g, orally, one time. May mix with food or liquidto achieve desired viscosity. SPEECH VIDEO FLOUROSCOPY Administered by Speech Language Pathologist: Barium Sulfate (E-Z-HD) 98%, 1 mL in each nostril, intranasally, one time only. INTRAVENOUS PYELOGRAM Iopamidol (ISOVUE-370) 76%, administer up to 85mL, intravenous, one time only. Volume of contrast injected determined by radiologist. URETHROCYSTOGRAM VOIDING Iothalamate Meglumine (Cystografin Dilute) 18%, up to 600 mL, instill intothe bladder, one time only OR Iothalamate Meglumine (Cysto Conray II Urethral) 17.2%, up to 600 mL, instill into the bladder, onetime only BARIUM ENEMA WATER SOLUBLE Iothalamate Meglumine (Cystographin Dilute) 18%, 300 mL, radiologist to administer up to 900 mL rectally, one time. Radiologist may repeat if neededto complete procedure. OR Iothalamate Meglumine (Cysto Conray II Urethral) 17.2%, 250 mL, radiologist to administer up to 900 mL rectally, one time. Radiologist may repeat if neededto complete procedure. BARIUM ENEMA (with or without AIR CONTRAST) Barium Sulfate (Liquid Polibar Plus) 96% (w/w) 454g =500mL mixed with 1500mL of water, radiologist to administer up to 2000mL of mixture rectally, one timeonly OCHEMIST * Care Plan - Yumiko Cao, Occupational Therapist - 08/11/2023 9:20 AM ASTROCHEMIST Problem: Physical Mobility, Impaired Goal: Mobility goal: Improve transfer ability by discharge Description: Patient will transfer to/from toilet and to/from tub/shower with modified independence. Outcome: Progressing Problem: Self-Care Deficit Goal: Self care goal: Improve ability to perform self care activities by discharge Description: Patient will require modified independence with grooming/bathing with adaptive equipment. Outcome: Progressing Flowsheets Taken 08/11/2023919 by Yumiko Cao, Occupational Therapist Kartik: Marimar Pain Rating: Rest: 0 Pain Rating: Activity: 0 Present Activity: up in room ambulating Physical Assist/Nonphysical Assist: w/ stand by assist Total Treatment Time (min): 12 OT Treatment Start Time: 919 OT Treatment Stop Time: 931 Taken 08/08/2023 1123 by Omayra Bennett, Physical Therapist Location: abdomen region Taken 08/08/2023 1034 by Dipika Cancino, Occupational Therapist Therapy Plan of Care: 2-5x/wk OT Current Discharge Recommendation: Home with supervision OT Recommended DME: No new DME recommended Recommend: Home with supervision (08/08/231033) Recommendations were made on today's assessment. Additional recommendations will be based on patient's progress in therapy. Equipment Recommended at discharge: No new DME recommended (08/08/231033) S: Patient agrees to therapy; I haven't been getting up much because they won't let me without help O: Cognition/ Perception: Alert and oriented x 4 Skin Integrity: visible skin intact, wearing abdominal binder Weight Bearing: no restrictions Precautions: Fall FUNCTIONAL ACTIVITIES Grooming: patient declines at time of session, states she would like to wait until after her respiratory treatment. Anticipate patient able to stand at sink to perform G/H routines. LE Dressing: patient able to adjust socks in bed independently Toilet Transfer: standby assist for ambulatory toilet transfer Tub/Shower Transfer: standby assist for ambulatory/simulated tub shower transfer. Patient states she has a shower chair available at home. Functional mobility: modified independent bed mobility. Sit < > stand and ambulation in room with standby assist, no assistive devices. Patient states I make sure to stand close to the wall orcountertops incase I need to put my hand on something. [facility] AM-PAC Daily Activity How much help from another person does the patient currently need? Score 1. Putting on and taking off regular lower body clothing? 4 - None (independent) 2. Bathing (including washing, rinsing, drying)? 3 - A little (supervision to min assist) 3. Toileting, which includes using toilet, bedpan or urinal? 4 - None (independent) 4. Putting on and taking off regular upper body clothing? 4 - None (independent) 5. Taking care of personal grooming such as brushing teeth? 4 - None (independent) 6. Eating meals? 4 - None (independent) Total score 23/24 Scale: 1 - Total - requires total assistance, or cannot do at all 2 - A lot - requires a lot of help (max to mod assist), can use assistive devices 3 - A little - requires a little help (supervision, min assist) can use assistive devices 4 - None - does not require any help and does the activity independently, can use assistive devices Education: Occupational Therapy plan of care, safety with ADL/transfers Positioning after tx: sitting edge of bed, all needs in reach Other: no alarm set when contacted A: Response to treatment: tolerates well, denies dizziness/weakness with ADL routines and transfers P: Continue 2-5x/wk at bedside for: ADL Training, Functional Mobility Training, Patient Education unless change in status or patient is discharged from the facility. Plan of Care developed, as indicated by OT assessment and patient's current status. Please refer to plan of care for updates on goals. Zone #: [id number] OCHEMIST * Care Plan - Gisell Rahman RN - 08/11/2023 3:49 AM CST Report received from JANET Steinberg. Pt was A/O x4, denied pain at this time, breathing was even and unlabored on RA. Assessment completed; meds given per OCT. Pt is very eager to get her nieto out. Safety and fall risk measures in place. Pt's personal items and call light in reach. Pt didn't require PRN pain meds. Problem: Genitourinary/Renal Goal: Achieve optimal genitourinary and renal function by discharge or maintain baseline function Outcome: Variance Problem: Musculoskeletal Goal: Achieve optimal musculoskeletal function by discharge or maintain baseline function Outcome: Variance OCHEMIST * Care Plan - Maryan Jaeger RN - 08/10/2023 7:48 PM CST Pt A&Ox4. Pt denies nausea. Pt had slight pain managed by scheduled tylenol and ibuprofen. Pt ambulating well with stand by assistance. Pt nieto draining well. Pt tolerating diet. Pt resting in bed, call light in reach. OCHEMIST * Care Plan - Maryan Jaeger RN - 08/09/2023 7:00 PM CST Pt A&Ox4. Pt complained of nausea. Patient has slight pain, using scheduled tylenol. Pt nieto draining well. Pt ambulating to chair and walking in hallways with assistance. Pt states she is having hot flashes, MD notified no new orders. Pt tachycardiac Md notified, no new orders at this time. Pt resting in bed, call light in reach OCHEMIST * Care Plan - Maryan Jaeger RN - 08/08/2023 8:14 PM CST Pt A&Ox4. Pt denies nausea. Pt complained of some pain, received PRN dilaudid per MAR. Pt did not like dilaudid, Md changed to morphine. Pt complained of dry nose, d ordered nasal spray. Pt CNP discontinued per . New IV fluids ordered per . Pt ambulating in halls with therapy. Pt nieto draining well. Pt resting in bed, call light in reach. Pt tolerating clear liquid diet. OCHEMIST * Therapy Evaluation - Omayra Bennett Physical Therapist - 08/08/2023 11:23 AM CST Physical Therapy order received, chart reviewed, and evaluation completed. Please see full evaluation below for details. Daily PT notes will be located in Care Plan notes. Thank You. PT INITIAL EVALUATION Reason for Admission: s/p DANETTE-BSO complete omentectomy and tumor debulking with repair of bladder injury Ordered by: Kristel MALIN Activity Order: ambulate patient Weight Bearing Status: no restrictions Precautions: Fall; abdominal PMH: Past Medical History: Diagnosis Date COPD (chronic obstructive pulmonary disease) with emphysema History of chemotherapy Hyperlipidemia Ovarian cancer 04/2023 s/p chemotherapy Smoking greater than 20 pack years Past Surgical History: Procedure Laterality Date CYSTOSCOPY N/A 08/06/2023 CYSTOURETHROSCOPY performed by Aviva Humphries MD at [facility] OR [facility] HX BLADDER REPAIR N/A 08/06/2023 BLADDER REPAIR performed by Aviva Humphries MD at [facility] OR [facility] HX BUNIONECTOMY Bilateral 2009 HX SECTION 1982,1985,1994 HX PORTACATH PLACEMENT Right 2022 HX URETEROLYSIS Bilateral 08/06/2023 URETEROLYSIS performed by Aviva Humphries MD at [facility] OR [facility] UT BX/EXC LYMPH NODE OPEN SUPERFICIAL Right 08/06/2023 INGUINAL OR FEMORAL LYMPH NODE BIOPSY/EXCISION performed by Aviva Humphries MD at [facility] OR [facility] UT LAPAROSCOPY W/RMVL ADNEXAL STRUCTURES N/A 08/06/2023 SALPINGO-OOPHORECTOMY LAPAROSCOPIC performed by Aviva Humphries MD at [facility] OR [facility] UT OMNTC EPIPLOECTOMY RESCJ OMENTUM SPX N/A 08/06/2023 OMENTECTOMY performed by Aviva Humphries MD at [facility] OR [facility] UT TOTAL ABDOMINAL HYSTERECT W/WO RMVL TUBE OVARY N/A 08/06/2023 HYSTERECTOMY ABDOMINAL TOTAL performed by Aviva Humphries MD at [facility] OR [facility] UT UNLISTED PROCEDURE DIAPHRAGM N/A 08/06/2023 DIAPHRAGM BIOPSY performed by Aviva Humphries MD at [facility] OR [facility] Recommend: Home with supervision (08/08/231122) Recommendations were made on today's assessment. Additional recommendations will be based on patient's progress in therapy. Equipment to be issued at DC: No new DME recommended (08/08/231122) S: Patient, RN agreeable to therapy. States she recently walked halls with OT but wants to get backto bed because chair is uncomfortable. Patient reports 2/10 pain in abdomen at rest. Stated it remained about the same with activity butnoted to grimace. Also appeared to be in increased pain when coughing, does hold pillow over abdomen as splint. Pain intervention: Unneccessary movement avoided, Repositioned for comfort, Premedicated for activity, RN aware Response to pain intervention: Appeared content Living Situation/Functional Level RESEARCH PHYSICIST: Patient reports she lives alone in a 1 level home with no steps. States her family can provide assist as needed. Reports independence RESEARCH PHYSICIST without use of assistive device. Home Equipment: shower chair, raised toilet seat O: Appearance: 62 y/o female sitting up in chair, IV R UE, nieto catheter Cognition/Perception: Alert and oriented x 4, follows commands appropriately Skin Integrity: visible skin intact ROM: Bilateral Lower Extremity WFL Muscle Tone: WFL Strength: Bilateral Lower Extremity Decreased: 4/5 MOBILITY ASSESSMENT: Bed Mobility: Sit-->supine with min A x 1 for LE management. Boosts self up in bed with SBA and increased time. Transfers: Sit<>stand with no device and close SBA Gait: 5' with no device and SBA --Gait Deviations: short step length, poor foot clearance, forward trunk flexion, fair balance Other: Patient tolerated session fair. Encouraged to walk halls with assist of nursing staff over holiday weekend, she verbalized understanding. Patient/Family Education: PT plan of care Positioning after tx: Patient positioned in chair, alarm activated, all lines intact, call light Marta agarwal UE/LEs elevated for comfort and maintained skin integrity, family present, RN aware [facility] AM-PAC Basic Mobility How much help from another person does the patient currently need? Score 1. Turning from your back to your side while in a flat bed without using bedrails? 3 - A little (supervision to min assist) 2. Moving from lying on your back to sitting on the side of a flat bed without using bedrails? 3 - A little (supervision to min assist) 3. Moving to and from a bed to a chair (including a wheelchair)? 3 - A little (supervision to min assist) 4. Standing up from a chair using your arms (e.g., wheelchair, or bedside chair)? 3 - A little (supervision to min assist) 5. Walking in hospital room? 3 - A little (supervision to min assist) 6. Climbing 3-5 steps with a railing? 3 - A little (supervision to min assist) Total score 18/24 Scale: 1 - Total - requires total assistance, or cannot do at all 2 - A lot - requires a lot of help (max to mod assist), can use assistive devices 3 - A little - requires a little help (supervision, min assist) can use assistive devices 4 - None - does not require any help and does the activity independently, can use assistive devices A: Disabilities: decreased activity tolerance and strength Assessment: Patient would benefit from skilled PT at this time to address the above impairments. Clinical Presentation: Stable and/or uncomplicated EVALUATION COMPLEXITY: Low Complexity -These findings are based on patient's self reporting, therapist's objective findings and professional determinations. P: PT to see patient: At bedside 2-5x/wk. Will continue therapy unless patient has a change in status or patient is discharged from the facility. Plan of Care developed, as indicated by PT assessmentand patient's current status. Treatment Plan: Patient to be seen for Transfer training, Gait training, Exercises, Balance training Additional Discharge Information: none Recommendations: For: Patient, Nursing --OOB to chair with chair alarm, ambulate in room or hallway, with assist --Patient involved in goal setting: yes Patient goals will be found in the Care Plan section of the medical chart. Zone #: [id number] On weekends--please call [phone] OCHEMIST * Therapy Evaluation - Dipika Cancino, Occupational Therapist - 08/08/2023 10:34 AM CST Occupational Therapy order received, chart reviewed, and evaluation completed. Please see full evaluation below for details. Daily OT notes will be located in Care Plan notes. Thank You. OT INITIAL EVALUATION Reason for Admission: Malignant neoplasm of ovary s/p total hysterectomy, salpingo-oophorectomy laparoscopic, ureterolysis, bladder repair, cystourethroscopy, lymph note excision Ordered by: MD Keyonna Activity Order: Ambulate patient Weight Bearing Status: No restrictions listed Precautions: Fall; abdominal PMH: Past Medical History: Diagnosis Date COPD (chronic obstructive pulmonary disease) with emphysema History of chemotherapy Hyperlipidemia Ovarian cancer 04/2023 s/p chemotherapy Smoking greater than 20 pack years Recommend: Home with supervision (08/08/23 1034) Recommendations were made on today's assessment. Additional recommendations will be based on patient's progress in therapy. Equipment needed at DC: No new DME recommended (08/08/23 1034) S: Patient agreeable to therapy. Patient reports 2/10 pain in abdominal region. Pain intervention: Unneccessary movement avoided, Repositioned for comfort Response to pain intervention: Appeared content Living Situation/Functional Level RESEARCH PHYSICIST: Pt lives alone in 1 story house. RESEARCH PHYSICIST pt independent for ADLs, IADLs and functional mobility w/o AD. Pt drives. Pt family lives close and is able to assist as necessary. Home Equipment: Standard toilet, tub/shower, shower chair O: Appearance: 62 y/o female, supine in bed, IV and CNP intact (CNP disconnected by RN at end of session) Vision: No acute vision changes. Glasses for mobility and reading. Cognition/Perception: Aox4. Pt able to follow instructions. Pt pleasant and cooperative. UE ROM: WFL Muscle Tone: WFL UE Strength: WFL Coordination: right Hand Dominant: WFL Sensation: Intact. Skin Integrity: Visible skin intact. RN will continue to monitor. FUNCTIONAL ACTIVITIES ASSESSMENT: Grooming: Pt deferred as she has already completed grooming tasks. UE Dressing: Min A to don robe while seated on EOB d/t IV. LE Dressing: Supervision for simulated don<>doff sock with figure four technique. Educated patient on figure four technique to adhere to abdominal precautions. Bed Mobility: Close SBA for supine>sit at EOB with log roll technique. Educated patient on log roll technique to adhere to abdominal precautions. Functional Transfers: SBA for sit>stand from EOB and stand>sit to chair w/o AD. Functional Mobility: SBA for ~100' functional mobility in room<>hallway w/o AD. [facility] AM-PAC Daily Activity How much help from another person does the patient currently need? Score 1. Putting on and taking off regular lower body clothing? 3 - A little (supervision to min assist) 2. Bathing (including washing, rinsing, drying)? 3 - A little (supervision to min assist) 3. Toileting, which includes using toilet, bedpan or urinal? 3 - A little (supervision to min assist) 4. Putting on and taking off regular upper body clothing? 3 - A little (supervision to min assist) 5. Taking care of personal grooming such as brushing teeth? 4 - None (independent) 6. Eating meals? 4 - None (independent) Total score 20/24 Scale: 1 - Total - requires total assistance, or cannot do at all 2 - A lot - requires a lot of help (max to mod assist), can use assistive devices 3 - A little - requires a little help (supervision, min assist) can use assistive devices 4 - None - does not require any help and does the activity independently, can use assistive devices Patient/Family Education: Patient educated on purpose of OT services, OT plan of care, safety awareness and proper body mechanics during ADLs, functional transfers and mobility. Positioning after tx: At end of session, pt returned to reclined position in chair. Call light in reach. Chair alarm on. Pt had no questions or concerns. RN aware of all session findings. A: Disabilities: Patient presents with deficits in UE strength, activity tolerance, and safety awareness during completion of functional ADLs, transfers and mobility. Assessment: Patient would benefit from additional OT services to address above concerns in order toincrease independence with functional ADLs, transfers and mobility. EVALUATION COMPLEXITY: Low Complexity -These findings are based on patient's self reporting, therapist's objective findings and professional determinations. P: OT to see patient: 2-5x/wk at bedside Treatment: OT to see patient for: ADL Training, Functional Mobility Training, UE ROM/Strengthening,Patient Education Will continue therapy unless patient has a change in status or patient is discharged from the facility. Additional Discharge Information: None. --Patient involved in goal setting: yes Patient goals will be found in the Care Plan section of the medical chart. Zone #: 38622 On weekends--please call [phone] OCHEMIST * Care Plan - Kaylin Mcclendon, JANET - 08/07/2023 1:46 PM CST Problem: Discharge Planning Goal: Identify discharge needs upon admission and through discharge Description: Outcome: Progressing Care Management Initial Assessment Initial Discharge Planning Assessment completed. Discussed Care Management's role and Discharge planning. Discharge Plan: Plan Discharge To: Home independently;Home with family assist;Home with home health Does the patient have family and/or a caregiver that is willing, able and available to assist if needed? Yes - Name/Relation:daughterEwa Comments: Patient lives alone, bu daughterEwa, lives about 2 blocks away and can stay with patient if needed. 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 Patient Discharge Planning Goal: home Patient will potentially discharge to a SNF/NH? No Care Management visited with: patient and daughterEwa and Megan, via in person. Prior to admission, patient resides at: own home, one story with no steps to enter. Prior to admission, living arrangements: lives alone, daughter lives close by and can stay with patient if needed. Prior to admission, patient's functional level:independent; uses N/A for mobility; needs assistancewith iADLs: N/A Prior to admission, the patient has the following DME? N/A Services in the home: none Serviced by n/a Receives hemodialysis? No Emergency contact(s): Extended Emergency Contact Information Primary Emergency Contact: Ewa Dunn Mobile Relation: Daughter Preferred language: [place] [employer] Laborer needed? No Insurance coverage verified: Payor: AETNA / Plan: AET[employer] CHOICE POS II / Product Type: POS / Prescription coverage: yes Preferred Pharmacy verified: [id number] [address] Employment Status: employed Has VA Benefits: no PCP verified as: Shilo Soares MD Patient has not had a stay at an acute care hospital in the last 30 days. Recent Falls?: Last Known Fall: No falls Plan for transportation at discharge: daughter Care Management contact information provided. Care Management will continue to follow and assist asneeded. ' Kaylin Mcclendon RN Care Manager [phone] cell [phone] office OCHEMIST * Care Plan - Shilo Ospina RN - 08/07/2023 10:40 AM CST Patient recovering from surgery. CNP as ordered and no reported problems. NG intact and to low-intermittent suction. Nieto patent and draining clear yellow urine to gravity. Staff with frequent rounding to monitor for changes. Blood sugars taken Q4H as ordered after IV fluids adjusted by previous shift. OCHEMIST * Care Plan - Gisell Rahman, RN - 08/07/2023 3:48 AM CST Report received from Lucita in PACU. Pt arrived on the Oncology floor at approximately 0027. Pt was A/O x4, stated she was in 3/10 pain, breathing was even and unlabored on 2L NC. Assessment completed; meds given per OCT. IVF started. CNP pump set up. Pt educated on using the pump. Safety and fall risk measures in place. Pt's personal items and call light in reach. Problem: Volume/Electrolyte Status Goal: Absence of/Reduce Fall Risk r/t Volume/Electrolyte Status Description: Patient is a fall risk due to volume/electrolyte status (i.e. - electrolyte imbalances, nausea/vomiting, NPO, IV fluids). Potential Interventions: 1. Ensure blood sugar is checked at appropriate intervals and insulin dosing is given as ordered 2. Provide patient with an emesis basin or vomit bag (may need more than one at bedside) 3. Assess length of IV and/or O2 tubing if applicable 4. Ensure IV fluids are given as ordered for NPO patients to maintain hydration 5. Administer medications for nausea and vomiting as needed Outcome: Variance Problem: Respiratory Goal: Achieve optimal respiratory function by discharge and/or maintain baseline function Outcome: Variance Problem: Pain, Potential/Actual Goal: Verbalizes/displays acceptable comfort level or baseline comfort level Description: Outcome: Variance Problem: Safety/Fall Goal: Safety/Fall: Absence of fall, injury, harm during hospitalization Description: Outcome: Variance Problem: Peripheral Neurovascular Goal: Achieve optimal peripheral neurovascular function by discharge or maintain baseline function Outcome: Variance Problem: Nutrition/Endocrine Goal: Achieve optimal nutrition and fluid status to meet metabolic needs throughout hospitalization Outcome: Variance Problem: Gastrointestinal Goal: Achieve optimal gastrointestinal function by discharge or maintain baseline function Outcome: Variance Problem: Genitourinary/Renal Goal: Achieve optimal genitourinary and renal function by discharge or maintain baseline function Outcome: Variance Problem: Musculoskeletal Goal: Achieve optimal musculoskeletal function by discharge or maintain baseline function Outcome: Variance Problem: Skin Goal: Maintain skin integrity and/or promote wound healing by discharge Outcome: Variance OCHEMIST * Care Plan - Lucita Barboza RN - 08/06/2023 11:54 PM CST Potential for pain related to surgical/procedural intervention Interventions: Assess level of pain/comfort utilizing verbal/nonverbal pain scales; assess culturalor rastafari indicators attached to pain; administer pain medications as prescribed; utilize non-pharmacologic pain control and comfort measures Expected Outcome: Patient demonstrates and reports adequate pain control Outcome Met: prn meds available, pain well controlled Potential for alteration in thermoregulatory, circulatory, respiratory fluid & electrolyte status Interventions: Perform ongoing physical assessment; maintenance of airway or mechanical ventilation; monitor level of consciousness; initiate safety measures; observe patient???s respiratory status and oxygen saturation; obtain measurements of ongoing hemodynamic parameters, cardiac rhythm, and temperature; monitor intake and output; inspect wound dressings and/or drain output; perform prescribedtherapeutic regimens, treatments and tests; document and/or communicate care given Expected Outcome: Patient will maintain functional status compatible with preoperative status Outcome Met: vss, normothermic, patient able to maintain O2 sats, no bleeding or hematoma from surgical site OCHEMIST * Care Plan - Bettina Vann RN - 08/06/2023 12:43 PM CST Knowledge deficit related to procedure/environment Interventions: Assess learning needs and willingness to learn; give clear, concise explanations of the environment and sequence of events surrounding the periop experience; address patient/family questions and concerns; provide teaching as indicated, provide teaching related to postoperative pain assessment utilizing pain scales Expected Outcome: Patient verbalizes or demonstrates awareness/understanding of surgery and perioperative experience Outcome Met: All concerns addressed OCHEMIST documented in this encounter Plan of Treatment Upcoming Encounters Date Type Department Care Team (Late st Contact Info) Description 08/04/2024 1:00 PM ASTROCHEMIST Appointment [facility] Center 2nd Fl [address] [place] [address] Aviva Humphries MD [address] [place] [id number] Infusion Chair 5, 2nd Floor Hall 08/25/2024 1:00 PM ASTROCHEMIST Office Visit [facility] Gynecologic Oncology Hall [address] [place] [address] Edilia Pettit, CHELY [address] [place] [address] 08/25/2024 1:30 PM ASTROCHEMIST Appointment Randy Proctor [facility] Infusion Center 2nd Fl [address] [place] [address] Aviva Humphries MD [address] [place] [address] Infusion Chair 1, 2nd Floor Hall 09/01/2024 10:45 AM ASTROCHEMIST Appointment Randy Proctor [facility] Nuclear Medicine [address] [place] [phone] [id number] Edilia Pettit, CHELY [address] [facility] [address] [place] [address] documented as of this encounter Procedures Procedure Name Priority Date/Time Associated Diagnosis Comments BASIC METABOLIC PANEL Stat 08/12/2023 1:50 PM ASTROCHEMIST US RENAL AND BLADDER Pending Discharge 08/12/2023 10:46 AM ASTROCHEMIST SODIUM, RANDOM URINE Routine 08/12/2023 9:15 AM ASTROCHEMIST CREATININE, RANDOM URINE Routine 08/12/2023 9:15 AM ASTROCHEMIST DIFFERENTIAL, MANUAL Routine 08/12/2023 5:59 AM ASTROCHEMIST CBC WITH DIFFERENTIAL Routine 08/12/2023 5:59 AM ASTROCHEMIST BASIC METABOLIC PANEL Routine 08/12/2023 5:59 AM ASTROCHEMIST XR CYSTOGRAM Stat 08/11/2023 11:42 AM ASTROCHEMIST DIFFERENTIAL, MANUAL Routine 08/11/2023 8:22 AM ASTROCHEMIST CBC WITH DIFFERENTIAL Routine 08/11/2023 8:22 AM ASTROCHEMIST BASIC METABOLIC PANEL Routine 08/11/2023 8:22 AM ASTROCHEMIST DIFFERENTIAL, MANUAL Routine 08/10/2023 11:14 AM ASTROCHEMIST CBC WITH DIFFERENTIAL Routine 08/10/2023 11:14 AM ASTROCHEMIST BASIC METABOLIC PANEL Routine 08/10/2023 11:14 AM ASTROCHEMIST DIFFERENTIAL, MANUAL Timed Study 08/09/2023 6:59 AM ASTROCHEMIST CBC WITH DIFFERENTIAL Timed Study 08/09/2023 6:59 AM ASTROCHEMIST COMPREHENSIVE METABOLIC PANEL Routine 08/09/2023 6:59 AM ASTROCHEMIST OT EVAL AND TREAT Routine 08/08/2023 10:29 AM ASTROCHEMIST PT EVAL AND TREAT Routine 08/08/2023 10:29 AM ASTROCHEMIST POC GLUCOSE Routine 08/08/2023 4:19 AM ASTROCHEMIST POC GLUCOSE Routine 08/08/2023 12:09 AM ASTROCHEMIST POC GLUCOSE Routine 08/07/2023 8:18 PM ASTROCHEMIST POC GLUCOSE Routine 08/07/2023 4:54 PM ASTROCHEMIST POC GLUCOSE Routine 08/07/2023 12:36 PM ASTROCHEMIST POC GLUCOSE Routine 08/07/2023 7:46 AM ASTROCHEMIST BASIC METABOLIC PANEL Timed Study 08/07/2023 4:25 AM ASTROCHEMIST DIFFERENTIAL, MANUAL Timed Study 08/07/2023 4:24 AM ASTROCHEMIST CBC WITH DIFFERENTIAL Timed Study 08/07/2023 4:24 AM ASTROCHEMIST POC GLUCOSE Routine 08/07/2023 4:14 AM ASTROCHEMIST PATHOLOGY Pathology 08/06/2023 6:39 PM ASTROCHEMIST Malignant neoplasm of ovary, unspecified laterality Drug-induced androgenic alopecia CYTOLOGY, NON GYNE Pathology 08/06/2023 5: 16 PM ASTROCHEMIST Malignant neoplasm of ovary, unspecified laterality Drug-induced androgenic alopecia INGUINAL OR FEMORAL LYMPH NODE BIOPSY/EXCISION 08/06/2023 3:35 PM ASTROCHEMIST Malignant neoplasm of ovary, unspecified laterality Drug-induced androgenic alopecia UT UNLISTED PROCEDURE DIAPHRAGM 08/06/2023 3:35 PM ASTROCHEMIST Malignant neoplasm of ovary, unspecified laterality Drug-induced androgenic alopecia UT OMNTC EPIPLOECTOMY RESCJ OMENTUM SPX 08/06/2023 3:35 PM ASTROCHEMIST Malignant neoplasm of ovary, unspecified laterality Drug-induced androgenic alopecia CYSTOURETHROSCOPY 08/06/2023 3:3 5 PM ASTROCHEMIST Malignant neoplasm of ovary, unspecified laterality Drug-induced androgenic alopecia BLADDER REPAIR 08/06/2023 3:35 PM ASTROCHEMIST Malignant neoplasm of ovary, unspecified laterality Drug-induced androgenic alopecia URETEROLYSIS 08/06/2023 3:35 PM ASTROCHEMIST Malignant neoplasm of ovary, unspecified laterality Drug-induced androgenic alopecia UT LAPAROSCOPY W/RMVL ADNEXAL STRUCTURES 08/06/2023 3:35 PM ASTROCHEMIST Malignant neoplasm of ovary, unspecified laterality Drug-induced androgenic alopecia UT TOTAL ABDOMINAL HYSTERECT W/WO RMVL TUBE OVARY 08/06/2023 3:35 PM ASTROCHEMIST Malignant neoplasm of ovary, unspecified laterality Drug-induced androgenic alopecia IR INJECTION Routine 08/06/2023 1:48 PM ASTROCHEMIST VERIFICATION BLOOD GROUP Stat 08/06/2023 1:00 PM ASTROCHEMIST Encounter for blood typing POC GLUCOSE Routine 08/06/2023 11:03 AM ASTROCHEMIST documented in this encounter Results * (ABNORMAL) BASIC METABOLIC PANEL (08/12/2023 1:50 PM ASTROCHEMIST) SODIUM 139 136 - 145 mmol/L 08/12/2023 2:43 PM [facility] POTASSIUM 3.6 3.5 - 5.0 mmol/L 08/12/2023 2:43 PM [facility] - . [facility] CHLORIDE 101 98 - 107 mmol/L 08/12/2023 2:43 PM [facility] - . [facility] CO2 27 22 - 29 mmol/L 08/12/2023 2:43 PM [facility] - . [facility] CALCIUM 9.2 8.6 - 10.2 mg/dL 08/12/2023 2:43 PM [facility] - . [facility] BUN 18 8 - 23 mg/dL 08/12/2023 2:43 PM [facility] - . [facility] CREATININE 1.22(H) 0.51 - 0.95 mg/dL 08/12/2023 2:43 PM [facility] GLUCOSE 133(H) 74 - 99 mg/dL 08/12/2023 2:43 PM [facility] - . [facility] GFR 50(L) >=60 mL/min/1.7 3 sq meter 08/12/2023 2:43 PM [facility] Comment:eGFR calculated with 2020 CKD-EPI equation. Vegetarian diet, extremely high or low muscle mass, and may affect results. Cystatin C with Glomerular Filtration Rate is a suitable alternative for these patients. ANION GAP 11 8 - 16 mmol/L 08/12/2023 2:43 PM [facility] Blood Venipuncture / Unknown 08/12/2023 1:50 PM ASTROCHEMIST 08/12/2023 1:59 PM ASTROCHEMIST Aviva Humphries MD CHEMISTRY ORDERABLES [facility] CLIA# [id number] [address] [place] [address] * US RENAL AND BLADDER (08/12/2023 10:46 AM ASTROCHEMIST) Anatomical Region Laterality Modality Abdomen Ultrasound 08/12/2023 10:4 7 AM ASTROCHEMIST Impressions 08/12/2023 10:58 AM ASTROCHEMIST IMPRESSION: 1. Normal renal ultrasound without evidence of hydronephrosis. DICTATION LOCATION: Location - [facility] Narrative 08/12/2023 10:58 AM ASTROCHEMIST EXAMINATION: Complete retroperitoneal ultrasound HISTORY: Renal Insufficiency COMPARISON: None available FINDINGS: The kidneys are normal in size and echogenicity, measuring 9.9 cm in length on the right and 9.5 cm in length on the left No solid lesions, stones, or hydronephrosis is seen in either kidney. The urinary bladder is within normal limits. Procedure Note Claude Gan MD - 08/12/2023 EXAMINATION: Complete retroperitoneal ultrasound HISTORY: Renal Insufficiency COMPARISON: None available FINDINGS: The kidneys are normal in size and echogenicity, measuring 9.9 cm in length on the right and 9.5 cm in length on the left No solid lesions, stones, or hydronephrosis is seen in either kidney. The urinary bladder is within normal limits. IMPRESSION: 1. Normal renal ultrasound without evidence of hydronephrosis. DICTATION LOCATION: Location [address] [place] [address] Aviva Humphries MD US ORDERABLES * CREATININE, RANDOM URINE (08/12/2023 9:15 AM ASTROCHEMIST) CREATININE, URINE 115.3 29.0 - 226.0 mg/dL 08/12/2023 10:04 AM ASTROCHEMIST [facility] [employer] [facility] Comment:Reference Range vari es with fluid intake and diet. Urine URINE SPECIMEN OBTAINED BY CLEAN CATCH PROCEDURE / Unknown Collection / Unknown 08/12/2023 9:15 AM ASTROCHEMIST 08/12/2023 9:26 AM ASTROCHEMIST Aviva Humphries MD URINE ORDERABLES [id number] [address] [place] [address] * SODIUM, RANDOM URINE (08/12/2023 9:15 AM ASTROCHEMIST) [facility] SODIUM, URINE 69 mmol/L 08/12/2023 10:09 AM [facility] Comment:Reference range not established Urine URINE SPECIMEN OBTAINED BY CLEAN CATCH PROCEDURE / Unknown Collection / Unknown 08/12/2023 9:15 AM ASTROCHEMIST 08/12/2023 9:26 AM ASTROCHEMIST Aviva Humphries MD URINE ORDERABLES [facility] [employer] [facility] CLIA# [id number] [address] [place] [address] * MANUAL DIFFERENTIAL (08/12/2023 5:59 AM ASTROCHEMIST) [facility] PLATELET EST. Consistent w Count 08/12/2023 7:29 AM [facility] ANISOCYTOSIS 2+ /hpf 08/12/2023 7:29 AM [facility] [employer] [facility] MACROCYTES 1+ /hpf 08/12/2023 7:29 AM [facility] POLYCHROMASIA 1+ /hpf 08/12/2023 7:29 AM [facility] Blood Venipuncture / Unknown 08/12/2023 5:59 AM ASTROCHEMIST 08/12/2023 6:26 AM ASTROCHEMIST Aviva Humphries MD HEMATOLOGY ORDERABLE S COM [facility] [employer] [facility] CLIA# [id number] [address] [place] [address] * (ABNORMAL) BASIC METABOLIC PANEL (08/12/2023 5:59 AM ASTROCHEMIST) [facility] SODIUM 140 136 - 145 mmol/L 08/12/2023 7:00 AM [facility] POTASSIUM 3.9 3.5 - 5.0 mmol/L 08/12/2023 7:00 AM [facility] CHLORIDE 104 98 - 107 mmol/L 08/12/2023 7:00 AM [facility]. [facility] CO2 27 22 - 29 mmol/L 08/12/2023 7:00 AM [facility] CALCIUM 9.4 8.6 - 10.2 mg/dL 08/12/2023 7:00 AM [facility]. [facility] BUN 20 8 - 23 mg/dL 08/12/2023 7:00 AM [facility] CREATININE 1.19(H) 0.51 - 0.95 mg/dL 08/12/2023 7:00 AM [facility] GLUCOSE 101(H) 74 - 99 mg/dL 08/12/2023 7:00 AM [facility] GFR 51(L) >=60 mL/min/1.7 3 sq meter 08/12/2023 7:00 AM [facility] Comment:eGFR calculated with 2020 CKD-EPI equation. Vegetarian diet, extremely high or low muscle mass, and may affect results. Cystatin C with Glomerular Filtration Rate is a suitable alternative for these patients. ANION GAP 9 8 - 16 mmol/L 08/12/2023 7:00 AM [facility] Blood Venipuncture / Unknown 08/12/2023 5:59 AM ASTROCHEMIST 08/12/2023 6:26 AM [facility] Aviva Humphries MD CHEMISTRY ORDERABLES [facility] CLIA# [id number] [address] [facility] [address] [address] * (ABNORMAL) CBC WITH DIFFERENTIAL (08/12/2023 5:59 AM ASTROCHEMIST) Pathologist [facility] WBC 4.5 4.0 - 9.8 K/uL 08/12/2023 6:54 AM [facility] RBC 2.91(L) 3.90 - 4.90 M/uL 08/12/2023 6:54 AM ASTROCHEMIST [facility] HEMOGLOBIN 9.1(L) 11.8 - 14.8 g/dL 08/12/2023 6:54 AM ASTROCHEMIST [facility] - . [facility] HEMATOCRIT 27.5(L) 35.5 - 44.0 % 08/12/2023 6:54 AM ASTROCHEMIST [facility] MCV 94.5 82.0 - 99.0 fL 08/12/2023 6:54 AM ASTROCHEMIST [facility] - . [facility] MCH 31.3 27.2 - 32.6 pg 08/12/2023 6:54 AM ASTROCHEMIST [facility] MCHC 33.1 31.5 - 35.5 g/dL 08/12/2023 6:54 AM ASTROCHEMIST [facility] - . [facility] RDW 08/12/2023 6:54 AM ASTROCHEMIST [facility] Comment:Parameter not availa ble PLATELETS 351(H) 140 - 350 K/uL 08/12/2023 6:54 AM ASTROCHEMIST [facility] MPV 9.7 9.3 - 12.4 fL 08/12/2023 6:54 AM ASTROCHEMIST [facility] - . [facility] NEUTROPHILS 46 % 08/12/2023 6:54 AM ASTROCHEMIST [facility] - . [facility] LYMPHOCYTES 38 % 08/12/2023 6:54 AM ASTROCHEMIST [facility] - . [facility] MONOCYTES 13 % 08/12/2023 6:54 AM ASTROCHEMIST [facility] - . [facility] EOSINOPHILS 3 % 08/12/2023 6:54 AM ASTROCHEMIST [facility] LABORATORY SERVICES - . [facility] BASOPHILS 0 % 08/12/2023 6:54 AM ASTROCHEMIST [employer] LABORATORY SERVICES - . [facility] IMMATURE GRANULOCYTES 0 % 08/12/2023 6:54 AM ASTROCHEMIST [employer] LABORATORY SERVICES - . [facility] NEUTROPHIL ABSOLUTE 2.06 1.90 - 7.00 K/uL 08/12/2023 6:54 AM ASTROCHEMIST [employer] LABORATORY SERVICES - . [facility] LYMPHOCYTE ABSOLUTE 1.71 0.70 - 4.50 K/uL 08/12/2023 6:54 AM ASTROCHEMIST [employer] LABORATORY SERVICES - . [facility] MONOCYTE ABSOLUTE 0.57 0.10 - 1.30 K/uL 08/12/2023 6:54 AM ASTROCHEMIST [facility] LABORATORY [facility] EOSINOPHIL ABSOLUTE 0.12 0.00 - 0.70 K/uL 08/12/2023 6:54 AM ASTROCHEMIST [facility] LABORATORY [facility] BASOPHILS ABSOLUTE 0.02 0.00 - 0.20 K/uL 08/12/2023 6:54 AM ASTROCHEMIST [facility] LABORATORY [facility] IMMATURE GRANULOCYTES ABSOLUTE 0.02 0.00 - 0.03 K/uL 08/12/2023 6:54 AM ASTROCHEMIST [facility] LABORATORY [facility] Blood Venipuncture / Unknown 08/12/2023 5:59 AM ASTROCHEMIST 08/12/2023 6:26 AM ASTROCHEMIST Aviva Humphries MD HEMATOLOGY ORDERABLE S [facility]# [id number] 5 [facility] [place] [address] * XR CYSTOGRAM (08/11/2023 11:42 AM ASTROCHEMIST) Anatomical Region Laterality Modality Pelvis Computed Radiogr aphy 08/11/2023 12:0 8 PM ASTROCHEMIST Addenda Addendum by Oneida Jennings MD on 08/11/2023 1:17 PM ASTROCHEMIST XR CYSTOGRAM DATE: ??08/11/2023 11:42 AM HISTORY: Status post intraoperative cystotomy repair. Rule out leak Preop testing; Encounter for blood typing; Malignant neoplasm of ovary, unspecified laterality; Drug-induced androgenic alopecia ?? COMPARISON: None.. REFERENCE AIR KERMA DOSE: ??14.02 mGy. NUMBER OF FLUOROSCOPIC IMAGES: 5 FINDINGS: An initial file drawer finisher image of the pelvis was performed. Some air-filled loops of small bowel are demonstrated in the lower abdomen and pelvis. Air is also demonstrated in the colon. This may represent an ileus. A total of 150 cc of Cystografin was instilled into the urinary bladder by gravity via the indwelling Nieto catheter during fluoroscopic observation. The patient reported that her bladder felt full at this volume. Contour deformity is demonstrated along the dome of the urinary bladder in the area where the patient had cystotomy repair on 08/04/2023. There was no extraluminal extravasation of contrast demonstrated from the urinary bladder. The first post drain image revealed some retained contrast in the urinary bladder. The second post drain image revealed good emptying of contrast from the urinary bladder. INCIDENTAL FINDINGS: ??None. IMPRESSION: Contour deformity along the dome of the urinary bladder in the area where the patient had cystotomy repair. There was no extraluminal extravasation of contrast from the urinary bladder. Some air is demonstrated within small bowel loops in the lower abdomen and pelvis and air is also demonstrated in the colon. This may be secondary to an ileus. FLUOROSCOPY TIME IN MINUTES: ??0.2 minutes. DICTATION LOCATION: [address] Impressions 08/11/2023 12:59 PM ASTROCHEMIST IMPRESSION: Contour deformity along the dome of the urinary bladder in the area where the patient had cystotomy repair. ?? There was no extraluminal extravasation of contrast from the urinary bladder. Some air is demonstrated within small bowel loops in the lower abdomen and pelvis and air is also demonstrated in the colon. This may be secondary to an ileus. FLUOROSCOPY TIME IN MINUTES: ??0.2 minutes. DICTATION LOCATION: [place] [id number] - [facility] Narrative 08/11/2023 12:59 PM ASTROCHEMIST XR CYSTOGRAM DATE: ??08/11/2023 11:42 AM HISTORY: Status post intraoperative cystotomy repair. Rule out leak Preop testing; Encounter for blood typing; Malignant neoplasm of ovary, unspecified laterality; Drug-induced androgenic alopecia ?? COMPARISON: None.. REFERENCE AIR KERMA DOSE: ??14.02 mGy. NUMBER OF FLUOROSCOPIC IMAGES: 5 FINDINGS: An initial file drawer finisher image of the pelvis was performed. Surgical sutures are demonstrated in the pelvis consistent with the patient's history of LAR with takedown of colovesical fistula. Some air-filled loops of small bowel are demonstrated in the lower abdomen and pelvis. Air is also demonstrated in the colon. This may represent an ileus. A total of 150 cc of Cystografin was instilled into the urinary bladder by gravity via the indwelling Nieto catheter during fluoroscopic observation. The patient reported that her bladder felt full at this volume. Contour deformity is demonstrated along the dome of the urinary bladder in the area where the patient had cystotomy repair on 08/04/2023. There was no extraluminal extravasation of contrast demonstrated from the urinary bladder. The first post drain image revealed some retained contrast in the urinary bladder. The second post drain image revealed good emptying of contrast from the urinary bladder. INCIDENTAL FINDINGS: ??None. Procedure Note Oneida Jennings MD - 08/11/2023 XR CYSTOGRAM DATE: 08/11/2023 11:42 AM HISTORY: Status post intraoperative cystotomy repair. Rule out leak Preop testing; Encounter for blood typing; Malignant neoplasm of ovary, unspecified laterality; Drug-induced androgenic alopecia COMPARISON: None.. REFERENCE AIR KERMA DOSE: 14.02 mGy. NUMBER OF FLUOROSCOPIC IMAGES: 5 FINDINGS: An initial file drawer finisher image of the pelvis was performed. Surgical sutures are demonstrated in the pelvis consistent with the patient's history of LAR with takedown of colovesical fistula. Some air-filled loops of small bowel are demonstrated in the lower abdomen and pelvis. Air is also demonstrated in the colon. This may represent an ileus. A total of 150 cc of Cystografin was instilled into the urinary bladder by gravity via the indwelling Nieto catheter during fluoroscopic observation. The patient reported that her bladder felt full at this volume. Contour deformity is demonstrated along the dome of the urinary bladder in the area where the patient had cystotomy repair on 08/04/2023. There was no extraluminal extravasation of contrast demonstrated from the urinary bladder. The first post drain image revealed some retained contrast in the urinary bladder. The second post drain image revealed good emptying of contrast from the urinary bladder. INCIDENTAL FINDINGS: None. IMPRESSION: Contour deformity along the dome of the urinary bladder in the area where the patient had cystotomy repair. There was no extraluminal extravasation of contrast from the urinary bladder. Some air is demonstrated within small bowel loops in the lower abdomen and pelvis and air is also demonstrated in the colon. This may be secondary to an ileus. FLUOROSCOPY TIME IN MINUTES: 0.2 minutes. DICTATION LOCATION: Location 1 - [facility] Aviva Humphries MD DIAGNOSTIC IMAGING O RDERABLES * MANUAL DIFFERENTIAL (08/11/2023 8:22 AM ASTROCHEMIST) PLATELET EST. Consistent w Count 08/11/2023 10:10 AM [facility] [employer] [facility] ANISOCYTOSIS 2+ /hpf 08/11/2023 10:10 AM [facility] [employer] SERVICES - [facility] Blood Venipuncture / Unknown 08/11/2023 8:22 AM ASTROCHEMIST 08/11/2023 9:21 AM ASTROCHEMIST Aviva Humphries MD HEMATOLOGY ORDERABLE S COM [facility] [employer] SERVICES [facility] CLIA# [id number] [address] [place] [address] * (ABNORMAL) BASIC METABOLIC PANEL (08/11/2023 8:22 AM ASTROCHEMIST) SODIUM 140 136 - 145 mmol/L 08/11/2023 9:53 AM [facility] [employer] LABORATORY SERVICES [facility] POTASSIUM 3.5 3.5 - 5.0 mmol/L 08/11/2023 9:53 AM [facility] [employer] SERVICES - . [facility] CHLORIDE 102 98 - 107 mmol/L 08/11/2023 9:53 AM [facility] [employer] - . [facility] CO2 27 22 - 29 mmol/L 08/11/2023 9:53 AM [facility] [employer] [facility] - . [facility] CALCIUM 9.3 8.6 - 10.2 mg/dL 08/11/2023 9:53 AM [facility] [employer] LABORATORY [facility] BUN 17 8 - 23 mg/dL 08/11/2023 9:53 AM [facility] [employer] [facility] CREATININE 1.01(H) 0.51 - 0.95 mg/dL 08/11/2023 9:53 AM [facility] [employer] [facility] [place] GLUCOSE 107(H) 74 - 99 mg/dL 08/11/2023 9:53 AM [facility] [employer] SERVICES [facility]. [facility] GFR >60 >=60 mL/min/1.7 3 sq meter 08/11/2023 9:53 AM [facility] [employer] SERVICES [facility]. [facility] Comment:eGFR calculated with 2020 CKD-EPI equation. Vegetarian diet, extremely high or low muscle mass, and may affect results. Cystatin C with Glomerular Filtration Rate is a suitable alternative for these patients. ANION GAP 11 8 - 16 mmol/L 08/11/2023 9:53 AM [facility] [employer] SERVICES [facility] Blood Venipuncture / Unknown 08/11/2023 8:22 AM ASTROCHEMIST 08/11/2023 9:21 AM ASTROCHEMIST Aviva Humphries MD CHEMISTRY ORDERABLES [employer] AMD SERVICES [facility] CLIA# [id number] [address] [facility] [place] [address] * (ABNORMAL) CBC WITH DIFFERENTIAL (08/11/2023 8:22 AM ASTROCHEMIST) WBC 4.5 4.0 - 9.8 K/uL 08/11/2023 10:06 AM [facility] [employer] SERVICES [facility] RBC 2.92(L) 3.90 - 4.90 M/uL 08/11/2023 10:06 AM [employer] [facility] HEMOGLOBIN 9.1(L) 11.8 - 14.8 g/dL 08/11/2023 10:06 AM [employer] [facility] HEMATOCRIT 27.8(L) 35.5 - 44.0 % 08/11/2023 10:06 AM [employer] SERVICES [facility] MCV 95.2 82.0 - 99.0 fL 08/11/2023 10:06 AM [employer] [facility] MCH 31.2 27.2 - 32.6 pg 08/11/2023 10:06 AM [employer] [facility] MCHC 32.7 31.5 - 35.5 g/dL 08/11/2023 10:06 AM [employer] [facility] RDW 08/11/2023 10:06 AM [employer] LABORATORY [employer] [facility] Comment:Parameter not availa ble PLATELETS 359(H) 140 - 350 K/uL 08/11/2023 10:06 AM [employer] [facility] MPV 9.9 9.3 - 12.4 fL 08/11/2023 10:06 AM [employer] [facility] NEUTROPHILS 59 % 08/11/2023 10:06 AM [facility] [employer] SERVICES - [facility] LYMPHOCYTES 27 % 08/11/2023 10:06 AM [facility] [employer] SERVICES - [facility] MONOCYTES 11 % 08/11/2023 10:06 AM [facility] [employer] AMD SERVICES - [facility] EOSINOPHILS 2 % 08/11/2023 10:06 AM [facility] [employer] AMD [facility] BASOPHILS 0 % 08/11/2023 10:06 AM [facility] [employer] [facility] IMMATURE GRANULOCYTES 0 % 08/11/2023 10:06 AM [facility] [employer] SERVICES - [facility] NEUTROPHIL ABSOLUTE 2.67 1.90 - 7.00 K/uL 08/11/2023 10:06 AM [facility] [employer] SERVICES - [facility] LYMPHOCYTE ABSOLUTE 1.22 0.70 - 4.50 K/uL 08/11/2023 10:06 AM [facility] [employer] SERVICES - [facility] MONOCYTE ABSOLUTE 0.50 0.10 - 1.30 K/uL 08/11/2023 10:06 AM [facility] [employer] [facility] EOSINOPHIL ABSOLUTE 0.09 0.00 - 0.70 K/uL 08/11/2023 10:06 AM [facility] [employer] SERVICES - [facility] BASOPHILS ABSOLUTE 0.02 0.00 - 0.20 K/uL 08/11/2023 10:06 AM [facility] [employer] [facility] IMMATURE GRANULOCYTES ABSOLUTE 0.01 0.00 - 0.03 K/uL 08/11/2023 10:06 AM [facility] [employer] [facility] Blood Venipuncture / Unknown 08/11/2023 8:22 AM ASTROCHEMIST 08/11/2023 9:21 AM [facility] Aviva Humphries MD HEMATOLOGY ORDERABLE S [facility] [employer] [facility] CLAZ# [id number] [address] [place] [address] * MANUAL DIFFERENTIAL (08/10/2023 11:14 AM ASTROCHEMIST) PLATELET EST. Consistent w Count 08/10/2023 12:12 PM [facility] LABORATORY SERVICES - [facility] ANISOCYTOSIS 1+ /hpf 08/10/2023 12:12 PM ASTROCHEMIST [facility] LABORATORY SERVICES - [facility] POIKILOCYTES 1+ /hpf 08/10/2023 12:12 PM ASTROCHEMIST [facility] LABORATORY SERVICES - [facility] POLYCHROMASIA 1+ /hpf 08/10/2023 12:12 PM ASTROCHEMIST [facility] LABORATORY SERVICES - [facility] OVALOCYTES 1+ /hpf 08/10/2023 12:12 PM [facility] LABORATORY SERVICES - [facility] Blood Venipuncture / Unknown 08/10/2023 11:14 AM ASTROCHEMIST 08/10/2023 11:21 AM ASTROCHEMIST Aviva Humphries MD HEMATOLOGY ORDERABLE S COM [facility] LABORATORY SERVICES - [facility]# [id number] 5 [facility] [place] [address] * (ABNORMAL) BASIC METABOLIC PANEL (08/10/2023 11:14 AM ASTROCHEMIST) SODIUM 137 136 - 145 mmol/L 08/10/2023 11:57 AM [facility] [employer] LABORATORY SERVICES - [facility] POTASSIUM 3.5 3.5 - 5.0 mmol/L 08/10/2023 11:57 AM [facility] [employer] LABORATORY SERVICES - [facility] CHLORIDE 101 98 - 107 mmol/L 08/10/2023 11:57 AM [facility] [employer] LABORATORY SERVICES - [facility] CO2 28 22 - 29 mmol/L 08/10/2023 11:57 AM [facility] [employer] LABORATORY SERVICES - [facility] CALCIUM 9.2 8.6 - 10.2 mg/dL 08/10/2023 11:57 AM [facility] [employer] LABORATORY SERVICES - [facility] BUN 13 8 - 23 mg/dL 08/10/2023 11:57 AM [facility] [employer] LABORATORY SERVICES - [facility] CREATININE 0.74 0.51 - 0.95 mg/dL 08/10/2023 11:57 AM [facility] [employer] LABORATORY SERVICES - [facility] GLUCOSE 129(H) 74 - 99 mg/dL 08/10/2023 11:57 AM [facility] [employer] LABORATORY SERVICES - [facility] GFR >60 >=60 mL/min/1.7 3 sq meter 08/10/2023 11:57 AM [facility] LABORATORY [facility] Comment:eGFR calculated with 2020 CKD-EPI equation. Vegetarian diet, extremely high or low muscle mass, and may affect results. Cystatin C with Glomerular Filtration Rate is a suitable alternative for these patients. ANION GAP 8 8 - 16 mmol/L 08/10/2023 11:57 AM [facility] LABORATORY [facility] Blood Venipuncture / Unknown 08/10/2023 11:14 AM ASTROCHEMIST 08/10/2023 11:21 AM ASTROCHEMIST Aviva Humphries MD CHEMISTRY ORDERABLES [facility] [employer] [facility]# [id number] [address] [place] [address] * (ABNORMAL) CBC WITH DIFFERENTIAL (08/10/2023 11:14 AM ASTROCHEMIST) WBC 5.1 4.0 - 9.8 K/uL 08/10/2023 12:01 PM [facility] LABORATORY [facility] RBC 3.00(L) 3.90 - 4.90 M/uL 08/10/2023 12:01 PM [facility] LABORATORY [facility] HEMOGLOBIN 9.4(L) 11.8 - 14.8 g/dL 08/10/2023 12:01 PM [facility] LABORATORY [facility] HEMATOCRIT 29.0(L) 35.5 - 44.0 % 08/10/2023 12:01 PM [facility] [employer] [facility] MCV 96.7 82.0 - 99.0 fL 08/10/2023 12:01 PM [facility] [employer] [facility] MCH 31.3 27.2 - 32.6 pg 08/10/2023 12:01 PM [facility] [employer] [facility] MCHC 32.4 31.5 - 35.5 g/dL 08/10/2023 12:01 PM [facility] LABORATORY [facility] RDW 08/10/2023 12:01 PM [facility] LABORATORY [facility] Comment:Parameter not availa ble PLATELETS 360(H) 140 - 350 K/uL 08/10/2023 12:01 PM [facility] [employer] LABORATORY SERVICES - . [facility] MPV 9.7 9.3 - 12.4 fL 08/10/2023 12:01 PM [facility] [employer] LABORATORY SERVICES - . [facility] NEUTROPHILS 65 % 08/10/2023 12:01 PM [facility] [employer] LABORATORY SERVICES - [facility] LYMPHOCYTES 25 % 08/10/2023 12:01 PM [facility] [employer] LABORATORY SERVICES - [facility] MONOCYTES 8 % 08/10/2023 12:01 PM [facility] EOSINOPHILS 1 % 08/10/2023 12:01 PM [facility] BASOPHILS 0 % 08/10/2023 12:01 PM [facility] [employer] LABORATORY SERVICES - . [facility] IMMATURE GRANULOCYTES 0 % 08/10/2023 12:01 PM [facility] - . [facility] NEUTROPHIL ABSOLUTE 3.29 1.90 - 7.00 K/uL 08/10/2023 12:01 PM [facility] [employer] LABORATORY SERVICES - . [facility] LYMPHOCYTE ABSOLUTE 1.26 0.70 - 4.50 K/uL 08/10/2023 12:01 PM [facility] MONOCYTE ABSOLUTE 0.41 0.10 - 1.30 K/uL 08/10/2023 12:01 PM [facility] [employer] LABORATORY SERVICES - [facility] EOSINOPHIL ABSOLUTE 0.06 0.00 - 0.70 K/uL 08/10/2023 12:01 PM [facility] [employer] LABORATORY SERVICES - [facility] BASOPHILS ABSOLUTE 0.02 0.00 - 0.20 K/uL 08/10/2023 12:01 PM [facility] [employer] LABORATORY SERVICES - . [facility] IMMATURE GRANULOCYTES ABSOLUTE 0.01 0.00 - 0.03 K/uL 08/10/2023 12:01 PM [facility] [employer] LABORATORY SERVICES - . [facility] Blood Venipuncture / Unknown 08/10/2023 11:14 AM ASTROCHEMIST 08/10/2023 11:21 AM ASTROCHEMIST Aviva Humphries MD HEMATOLOGY ORDERABLE S [facility] LABORATORY SERVICES - [facility] CLIA# [id number] [address] [place] [address] * MANUAL DIFFERENTIAL (08/09/2023 6:59 AM ASTROCHEMIST) PLATELET EST. Consistent w Count 08/09/2023 9:11 AM [facility] [employer] LABORATORY SERVICES - [facility] ANISOCYTOSIS 2+ /hpf 08/09/2023 9:11 AM [facility] Blood Venipuncture / Unknown 08/09/2023 6:59 AM ASTROCHEMIST 08/09/2023 7:27 AM ASTROCHEMIST Aviva Humphries MD HEMATOLOGY ORDERABLE S COM [facility] [employer] SERVICES - [facility] CLIA# [id number] [address] [place] [address] * (ABNORMAL) COMPREHENSIVE METABOLIC PANEL (08/09/2023 6:59 AM ASTROCHEMIST) Pathologist [facility] SODIUM 137 136 - 145 mmol/L 08/09/2023 8:06 AM [facility] [employer] LABORATORY SERVICES [facility] POTASSIUM 3.8 3.5 - 5.0 mmol/L 08/09/2023 8:06 AM [facility] [employer] LABORATORY SERVICES - . [facility] CHLORIDE 98 98 - 107 mmol/L 08/09/2023 8:06 AM [facility] [employer] LABORATORY SERVICES - . [facility] CO2 27 22 - 29 mmol/L 08/09/2023 8:06 AM [facility] [employer] LABORATORY SERVICES [facility]. [facility] CALCIUM 9.8 8.6 - 10.2 mg/dL 08/09/2023 8:06 AM [facility] [employer] LABORATORY SERVICES [facility]. [facility] BUN 7(L) 8 - 23 mg/dL 08/09/2023 8:06 AM [facility] [employer] LABORATORY SERVICES - [facility] CREATININE 0.66 0.51 - 0.95 mg/dL 08/09/2023 8:06 AM [facility] [employer] LABORATORY SERVICES - . [facility] GLUCOSE 89 74 - 99 mg/dL 08/09/2023 8:06 AM [facility] [employer] LABORATORY SERVICES [facility]. [facility] TOTAL PROTEIN 7.2 6.7 - 8.6 g/dL 08/09/2023 8:06 AM [facility] [employer] LABORATORY SERVICES [facility] ALBUMIN 3.8 3.5 - 5.2 g/dL 08/09/2023 8:06 AM [facility] BILIRUBIN TOTAL 0.7 0.2 - 1.1 mg/dL 08/09/2023 8:06 AM [facility] ALKALINE PHOSPHATASE 65 35 - 104 U/L 08/09/2023 8:06 AM [facility] AST 22 <33 U/L 08/09/2023 8:06 AM [facility] ALT 35(H) <34 U/L 08/09/2023 8:06 AM [facility] GFR >60 >=60 mL/min/1.7 3 sq meter 08/09/2023 8:06 AM [facility] Comment:eGFR calculated with 2020 CKD-EPI equation. Vegetarian diet, extremely high or low muscle mass, and may affect results. Cystatin C with Glomerular Filtration Rate is a suitable alternative for these patients. ANION GAP 12 8 - 16 mmol/L 08/09/2023 8:06 AM [facility] Blood Venipuncture / Unknown 08/09/2023 6:59 AM ASTROCHEMIST 08/09/2023 7:27 AM [facility] - 08/09/2023 8:06 AM ASTROCHEMIST Samples containing indocyanine green cause interferences on Total and/or Direct Bilirubin and must not be measured. Aviva Humphries MD CHEMISTRY ORDERABLES [facility]# [id number] 5 [facility] [place] [place] [address] * (ABNORMAL) CBC WITH DIFFERENTIAL (08/09/2023 6:59 AM ASTROCHEMIST) WBC 6.7 4.0 - 9.8 K/uL 08/09/2023 7:52 AM [facility] RBC 3.09(L) 3.90 - 4.90 M/uL 08/09/2023 7:52 AM [facility] HEMOGLOBIN 9.6(L) 11.8 - 14.8 g/dL 08/09/2023 7:52 AM ASTROCHEMIST [employer] LABORATORY SERVICES - [facility] HEMATOCRIT 30.0(L) 35.5 - 44.0 % 08/09/2023 7:52 AM ASTROCHEMIST [employer] LABORATORY SERVICES - [facility] MCV 97.1 82.0 - 99.0 fL 08/09/2023 7:52 AM ASTROCHEMIST [employer] LABORATORY SERVICES - [facility] MCH 31.1 27.2 - 32.6 pg 08/09/2023 7:52 AM ASTROCHEMIST [employer] LABORATORY SERVICES - [facility] MCHC 32.0 31.5 - 35.5 g/dL 08/09/2023 7:52 AM ASTROCHEMIST [employer] LABORATORY SERVICES - [facility] RDW 08/09/2023 7:52 AM [employer] LABORATORY SERVICES - [facility] Comment:Parameter not availa ble PLATELETS 350 140 - 350 K/uL 08/09/2023 7:52 AM [employer] LABORATORY SERVICES - [facility] MPV 9.5 9.3 - 12.4 fL 08/09/2023 7:52 AM [employer] LABORATORY SERVICES - [facility] NEUTROPHILS 76 % 08/09/2023 7:52 AM ASTROCHEMIST [employer] LABORATORY SERVICES - [facility] LYMPHOCYTES 16 % 08/09/2023 7:52 AM [facility] MONOCYTES 8 % 08/09/2023 7:52 AM [facility] EOSINOPHILS 0 % 08/09/2023 7:52 AM [facility] BASOPHILS 0 % 08/09/2023 7:52 AM [facility] IMMATURE GRANULOCYTES 0 % 08/09/2023 7:52 AM [facility] NEUTROPHIL ABSOLUTE 5.05 1.90 - 7.00 K/uL 08/09/2023 7:52 AM [facility] LYMPHOCYTE ABSOLUTE 1.06 0.70 - 4.50 K/uL 08/09/2023 7:52 AM [facility] MONOCYTE ABSOLUTE 0.53 0.10 - 1.30 K/uL 08/09/2023 7:52 AM [facility] EOSINOPHIL ABSOLUTE 0.01 0.00 - 0.70 K/uL 08/09/2023 7:52 AM [facility] BASOPHILS ABSOLUTE 0.01 0.00 - 0.20 K/uL 08/09/2023 7:52 AM [facility] - [facility] IMMATURE GRANULOCYTES ABSOLUTE 0.02 0.00 - 0.03 K/uL 08/09/2023 7:52 AM [facility] Blood Venipuncture / Unknown 08/09/2023 6:59 AM [facility] 08/09/2023 7:27 AM [facility] Aviva Humphries MD HEMATOLOGY ORDERABLE S [facility] CLIA# [id number] [address] [place] [id number] * (ABNORMAL) POC GLUCOSE (08/08/2023 4:19 AM [facility]) GLUCOSE POC 114(H) 74 - 99 mg/dL 08/08/2023 4:19 AM [facility] SPECIMEN SOURCE, GLUCOSE POC Whole Blood 08/08/2023 4:19 AM [facility] LABORATORY [facility] COMMENT, GLU POC Notified RN/MD 08/08/2023 4:19 AM [facility] Blood, whole 08/08/2023 4:19 AM [facility]HE[facility]ST 08/08/2023 4:28 AM ASTROCHEMIST Aviva Humphries MD POINT OF CARE TESTIN G Performing Organization Address City/[facility]/ZIP Co de Phone Number [facility] [employer] [facility] CLIA# [id number] [address] [address] * (ABNORMAL) POC GLUCOSE (08/08/2023 12:09 AM ASTROCHEMIST) GLUCOSE POC 121(H) 74 - 99 mg/dL 08/08/2023 12:09 AM [facility] [employer] [facility] SPECIMEN SOURCE, GLUCOSE POC Whole Blood 08/08/2023 12:09 AM ASTROCHEMIST [facility] LABORATORY [facility] COMMENT, GLU POC Notified RN/ 08/08/2023 12:09 AM ASTROCHEMIST [facility] LABORATORY [facility] Blood, whole 08/08/2023 12:0 9 AM ASTROCHEMIST 08/08/2023 12:18 AM ASTROCHEMIST Aviva Humphries MD POINT OF CARE TESTIN G [facility] [employer] [facility] CLIA# [id number] [address] [place] [address] * (ABNORMAL) POC GLUCOSE (08/07/2023 8:18 PM ASTROCHEMIST) GLUCOSE POC 107(H) 74 - 99 mg/dL 08/07/2023 8:18 PM ASTROCHEMIST [employer] LABORATORY SERVICES [facility] SPECIMEN SOURCE, GLUCOSE POC Whole Blood 08/07/2023 8:18 PM ASTROCHEMIST [employer] LABORATORY [facility] COMMENT, GLU POC Notified RN/ 08/07/2023 8:18 PM [facility] Blood, whole 08/07/2023 8:18 PM ASTROCHEMIST 08/07/2023 8:26 PM ASTROCHEMIST Aviva Humphries MD POINT OF CARE TESTSYLVIE Sky [facility] [employer] [facility] CLIA# [id number] [address] [place] [address] * (ABNORMAL) POC GLUCOSE (08/07/2023 4:54 PM ASTROCHEMIST) GLUCOSE POC 107(H) 74 - 99 mg/dL 08/07/2023 4:54 PM [facility] SPECIMEN SOURCE, GLUCOSE POC Whole Blood 08/07/2023 4:54 PM [facility] COMMENT, GLU POC Notified RN/ 08/07/2023 4:54 PM [facility] Blood, whole 08/07/2023 4:54 PM ASTROCHEMIST 08/07/2023 5:03 PM ASTROCHEMIST Aviva Humphries MD POINT OF CARE TESTIN G Performing Organization Address [facility] Co de Phone Number [facility]# [id number] [address] [place] [address] * (ABNORMAL) POC GLUCOSE (08/07/2023 12:36 PM ASTROCHEMIST) GLUCOSE POC 113(H) 74 - 99 mg/dL 08/07/2023 12:36 PM ASTROCHEMIST [facility] LABORATORY [facility] SPECIMEN SOURCE, GLUCOSE POC Whole Blood 08/07/2023 12:36 PM ASTROCHEMIST [facility] LABORATORY SERVICES [facility] COMMENT, GLU POC Notified RN/MD 08/07/2023 12:36 PM ASTROCHEMIST [facility] LABORATORY [facility] Blood, whole 08/07/2023 12:3 6 PM ASTROCHEMIST 08/07/2023 12:43 PM ASTROCHEMIST Aviva Humphries MD POINT OF CARE TESTSYLVIE G Performing Organization Address [facility] Co de Phone Number [facility] [employer] [facility]# [id number] [address] [place] [address] * (ABNORMAL) POC GLUCOSE (08/07/2023 7:46 AM ASTROCHEMIST) GLUCOSE POC 164(H) 74 - 99 mg/dL 08/07/2023 7:46 AM ASTROCHEMIST [facility] LABORATORY SERVICES [facility] SPECIMEN SOURCE, GLUCOSE POC Whole Blood 08/07/2023 7:46 AM ASTROCHEMIST [facility] LABORATORY SERVICES [facility] COMMENT, GLU POC Notified RN/MD 08/07/2023 7:46 AM ASTROCHEMIST [facility] LABORATORY SERVICES [facility] Blood, whole 08/07/2023 7:46 AM ASTROCHEMIST 08/07/2023 7:54 AM ASTROCHEMIST Aviva Humphries MD POINT OF CARE TESTIN G [facility] [employer] SERVICES [facility] CLIA# [id number] [address] [place] [address] * (ABNORMAL) BASIC METABOLIC PANEL (08/07/2023 4:25 AM ASTROCHEMIST) SODIUM 137 136 - 145 mmol/L 08/07/2023 5:22 AM [facility] [employer] LABORATORY SERVICES - . [facility] POTASSIUM 4.2 3.5 - 5.0 mmol/L 08/07/2023 5:22 AM [facility] [employer] LABORATORY SERVICES - . [facility] CHLORIDE 103 98 - 107 mmol/L 08/07/2023 5:22 AM [facility] [employer] LABORATORY SERVICES - . [place] CO2 25 22 - 29 mmol/L 08/07/2023 5:22 AM [facility] [employer] LABORATORY SERVICES - . [facility] CALCIUM 8.6 8.6 - 10.2 mg/dL 08/07/2023 5:22 AM [facility] [employer] [facility] BUN 11 8 - 23 mg/dL 08/07/2023 5:22 AM [facility] [employer] [facility] CREATININE 0.76 0.51 - 0.95 mg/dL 08/07/2023 5:22 AM [facility] [employer] [facility] GLUCOSE 207(H) 74 - 99 mg/dL 08/07/2023 5:22 AM [facility] [employer] [facility] GFR >60 >=60 mL/min/1.7 3 sq meter 08/07/2023 5:22 AM [facility] [employer] LABORATORY SERVICES [facility] Comment:eGFR calculated with 2020 CKD-EPI equation. Vegetarian diet, extremely high or low muscle mass, and may affect results. Cystatin C with Glomerular Filtration Rate is a suitable alternative for these patients. ANION GAP 9 8 - 16 mmol/L 08/07/2023 5:22 AM [facility] [employer] LABORATORY SERVICES [facility] Blood Venipuncture / Unknown 08/07/2023 4:25 AM ASTROCHEMIST 08/07/2023 4:41 AM ASTROCHEMIST Aviva Humphries MD CHEMISTRY ORDERABLES [facility] [employer] [facility] CLIA# [id number] [address] [place] [address] * MANUAL DIFFERENTIAL (08/07/2023 4:24 AM ASTROCHEMIST) Pathologist [facility] PLATELET EST. Consistent w Count 08/07/2023 7:35 AM ASTROCHEMIST [employer] LABORATORY [facility] ANISOCYTOSIS 1+ /hpf 08/07/2023 7:35 AM ASTROCHEMIST [employer] - [facility] Blood Venipuncture / Unknown 08/07/2023 4:24 AM ASTROCHEMIST 08/07/2023 4:41 AM ASTROCHEMIST Aviva Humphries MD HEMATOLOGY ORDERABLE S COM [employer] [facility] CLJORDYN# [id number] [address] [place] [address] * (ABNORMAL) CBC WITH DIFFERENTIAL (08/07/2023 4:24 AM ASTROCHEMIST) Pathologist [facility] WBC 4.6 4.0 - 9.8 K/uL 08/07/2023 5:18 AM [employer] LABORATORY SERVICES - [facility] RBC 3.10(L) 3.90 - 4.90 M/uL 08/07/2023 5:18 AM [employer] SERVICES [facility] HEMOGLOBIN 9.5(L) 11.8 - 14.8 g/dL 08/07/2023 5:18 AM [employer] SERVICES - . [facility] HEMATOCRIT 29.8(L) 35.5 - 44.0 % 08/07/2023 5:18 AM [employer] LABORATORY SERVICES - . [facility] MCV 96.1 82.0 - 99.0 fL 08/07/2023 5:18 AM [employer] LABORATORY SERVICES - . [facility] MCH 30.6 27.2 - 32.6 pg 08/07/2023 5:18 AM [employer] LABORATORY SERVICES - . [facility] MCHC 31.9 31.5 - 35.5 g/dL 08/07/2023 5:18 AM ASTROCHEMIST [employer] SERVICES - . [place] RDW 08/07/2023 5:18 AM [employer] [facility]ORATORY SERVICES - [facility] Comment:Parameter not availa ble PLATELETS 324 140 - 350 K/uL 08/07/2023 5:18 AM ASTROCHEMIST [employer] LABORATORY SERVICES - [facility] MPV 9.2(L) 9.3 - 12.4 fL 08/07/2023 5:18 AM ASTROCHEMIST [employer] LABORATORY SERVICES - [facility] NEUTROPHILS 82 % 08/07/2023 5:18 AM [employer] [facility]ATORY SERVICES - [facility] LYMPHOCYTES 11 % 08/07/2023 5:18 AM [employer] [facility]ATORY SERVICES - [facility] MONOCYTES 7 % 08/07/2023 5:18 AM [employer] [facility]ATORY SERVICES - [facility] EOSINOPHILS 0 % 08/07/2023 5:18 AM ASTROCHEMIST [employer] SERVICES - [facility] BASOPHILS 0 % 08/07/2023 5:18 AM [employer] LABORATORY SERVICES - . [place] IMMATURE GRANULOCYTES 0 % 08/07/2023 5:18 AM ASTROCHEMIST [employer] SERVICES - . [place] NEUTROPHIL ABSOLUTE 3.73 1.90 - 7.00 K/uL 08/07/2023 5:18 AM ASTROCHEMIST [employer] LABORATORY SERVICES - [facility] LYMPHOCYTE ABSOLUTE 0.50(L) 0.70 - 4.50 K/uL 08/07/2023 5:18 AM [employer] LABORATORY SERVICES - [facility] MONOCYTE ABSOLUTE 0.34 0.10 - 1.30 K/uL 08/07/2023 5:18 AM [employer] SERVICES - [facility] EOSINOPHIL ABSOLUTE 0.00 0.00 - 0.70 K/uL 08/07/2023 5:18 AM [employer] [facility] - [facility] BASOPHILS ABSOLUTE 0.00 0.00 - 0.20 K/uL 08/07/2023 5:18 AM [employer] SERVICES - . [place] IMMATURE GRANULOCYTES ABSOLUTE 0.01 0.00 - 0.03 K/uL 08/07/2023 5:18 AM [employer] - . [place] Blood Venipuncture / Unknown 08/07/2023 4:24 AM ASTROCHEMIST 08/07/2023 4:41 AM ASTROCHEMIST Aviva Humphries MD HEMATOLOGY ORDERABLE S [facility]# [id number] [address] [place] [address] * (ABNORMAL) POC GLUCOSE (08/07/2023 4:14 AM ASTROCHEMIST) GLUCOSE POC 203(H) 74 - 99 mg/dL 08/07/2023 4:14 AM ASTROCHEMIST [facility] [employer] [facility] SPECIMEN SOURCE, GLUCOSE POC Whole Blood 08/07/2023 4:14 AM ASTROCHEMIST [facility] [employer] [facility] COMMENT, GLU POC Notified RN/MD 08/07/2023 4:14 AM ASTROCHEMIST [facility] Blood, whole 08/07/2023 4:14 AM ASTROCHEMIST 08/07/2023 4:32 AM ASTROCHEMIST Aviva Humphries MD POINT OF CARE TESTIN G Performing Organization Address City/State/[facility] Co de Phone Number [facility]# [id number] [address] [place] [address] * PATHOLOGY (08/06/2023 6:39 PM ASTROCHEMIST) Pathologist [facility] CASE REPORT Surgical Pathology Report ? Case: [id number] ? Authorizing Provider: ??Aviva Humphries MD ? Collected: ? 08/06/2023 06:39 PM ? Ordering Location: ? [facility] ?Received: ?08/07/2023 06:35 AM ? Operating Room ? Pathologist: ? Roshni Rosas MD ? Specimens: ?? A) - Uterus, Cervix, Ovaries, bilateral, Fallopian tubes, bilateral ? B) - Omentum, OMENTUM ? C) - Small Intestine, MESENTRY OF SMALL BOWEL NODULE ? D) - Diaphragm, DIAPHRAMATIC TUMOR ? E) - Lymph nodes, right, RIGHT INGUINAL LYMPH NODES ? 4 11:26 [facility] [employer] [facility] ADDENDUM 1 A request for [employer] was received on 08/19/[address] Aviva Humphries. This test was performed on tissue from case [id number]. The case report, slides, and blocks for this case were retrieved from archives. The pathologist reviewed the original pathology report, examined candidate slides, and selected the most appropriate block(s). This selected material was forwarded to [facility] where the test was performed. The final report will be issued directly to the requesting physician. 11:26 AM [facility] Addendum electronically signed by Roshni Rosas MD on 08/20/2023 at 11:26 AM FINAL DIAGNOSIS A. Uterus with cervix and [...] (2) lymph nodes with metastatic carcinoma (2/2). 11:26 AM [facility] NOSIS COMMENT Ancillary testing will be performed upon request. 11:26 AM [facility] GROSS DESCRIPTION The specimens are received in [...] 0.7 x 0.3 cm pink-red, sessile polyp located within the fundus. The calhoun-pink, trabeculated myometrium with a maximum wall thickness of 1.4 cm. The calhoun-yellow to pink-cancino, cerebriform left ovary is sectioned to show a calhoun-yellow to pink-cancino to white, variegated cut surface that is grossly unremarkable. [...] The specimen contains clear serous fluid. There are multiple mucinous cysts measuring 1.5 cm in greatest dimension. The attached fallopian tube is sectioned to show a complete pinpoint, stellate lumen. Gut Snatcher sections are submitted in cassettes labeled A1-anterior cervix; A2-anterior polyp, submitted entirely; A3-anterior endomyometrium; A4-posterior cervix; A5-posterior endomyometrium; A6-left ovary; A7-left fallopian tube, fimbria submitted entirely; A8-presumed right fallopian tube, fimbria submitted entirely; A9 through [id number] mass (2 sections in each cassette) with mucinous component in 9-10. Received in the second container additionally labeled omentum are 2 irregular fragments of calhoun-yellow to red-brown lobulated omentum measuring 35.8 x 6 x 2 cm in aggregate. Sections show a calhoun-yellow, fatty cut surface containing multiple pink-cancino firm nodules measuring up to 1.8 cm in greatest dimension. Gut Snatcher sections are submitted in cassettes labeled B1 [...] 0.6 cm in greatest dimension. Entirely submitted in cassette labeled D1. Received in the fifth container [...] lymph node, bisected in each cassette). SMB 4 11:26 AM [facility] MICROSCOPIC DESCRIPTION The slides are labeled [id number] and November. Sections of the salpingo-oophorectomy (A) [...] monomorphic nuclei with rounded to angulated contours, hyperchromasia, prominent nucleoli, and focal nuclear pleomorphism. Mitotic activity is low (< 5/10HPF), and rare psammoma bodies are identified. Extensive tumor necrosis is attributed to the patient's history of neoadjuvant chemotherapy. Immunohistochemistry reveals a staining profile in lesional cells, including strong diffuse positivity for CK7 and PAX8, weak patchy positivity for AMACR and Napsin A, p53 overexpression with heterogeneity, focal positivity for ER, and rare UT positivity. Negative staining is observed for WT1 and CK20. Although weak patchy positivity for AMACR and Napsin A, and focal positivity for ER and rare UT positivity are unusual for clear cell carcinoma, [...] metastatic carcinoma with a tumor deposit measuring 1.8 cm. Sections of the mesentery of a small bowel nodule biopsy (C) show metastatic carcinoma, with cautery artifact present. Sections of the diaphragmatic tumor biopsy (D) show metastatic carcinoma. Sections of the right inguinal lymph node excisional biopsy (E) show two lymph nodes with metastatic carcinoma, consistent with distant metastasis. 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 Procedure: ?Total hysterectomy and bilateral salpingo-oophorectomy ?? Hysterectomy Type: ?Abdominal ?? Specimen Integrity: ? Right Ovary Integrity: ?Capsule intact ? Uterus Integrity: ?Intact TUMOR ?? Tumor Site: ?Right ovary ?? Tumor Size: ?Greatest Dimension (Centimeters): 10.7 cm ? Additional Dimension (Centimeters): ?8.4 cm ? Additional Dimension (Centimeters): ?5.5 cm ?? 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 Ovarian Surface Involvement: ?Present, right and left ?? Fallopian Tube Surface Involvement: ?Present, right and left ?? Other Tissue / Organ Involvement: ?Omentum ?? Other Tissue / Organ Involvement: ?Mesentery of small bowel; diaphragm ?? Largest Extrapelvic Peritoneal Focus: ?Macroscopic (2 cm or less): Omentum ?? Peritoneal / Ascitic Fluid Involvement: ?Malignant cells present REGIONAL LYMPH NODES ?? Regional Lymph Node Status: ?Not applicable (no regional lymph nodes submitted or found) DISTANT METASTASIS ?? Distant Site(s) Involved: ?Inguinal or retroperitoneal lymph node(s) and lymph node(s) outside the abdominal cavity pTNM CLASSIFICATION (AJCC 8th Edition) ?? Reporting of pT, pN, and (when applicable) pM categories is based on information available to the pathologist at the time the report is issued. As per the AJCC (Chapter 1, 8th Ed.) it is the managing physician? s responsibility to establish the final pathologic stage based upon all pertinent information, including but potentially not limited to this pathology report. ?? Modified Classification: ?y ?? pT Category: ?pT3b ?? pN Category: ?pN not assigned (no nodes submitted or found) ?? pM Category: ?pM1b 4 11:26 AM ASTROCHEMIST [facility] [employer] [facility] COMMENT Special stain, immunohistochemical, and/or in situ hybridization results are interpreted with controls that demonstrate appropriate staining reactions. Note on use of immunohistochemistry reagents and in situ hybridization probes: These tests were developed and their performance characteristics determined by [facility], Department of Laboratory Medicine. It has not been cleared or approved by the U.S. Food and Drug Administration. The FDA has determined that such clearance or approval is not necessary. The test is used for clinical purposes. It should not be regarded as investigational or for research. This laboratory is certified to perform high complexity testing. Frozen section/operating room consultation, gross examination and dissection, and case sign out may have been performed in part or completely in the following laboratories: [facility], CLIA #[id number] [address] [place] [address] [facility], CLIA #[id number] [address] [place] [address] [facility], CLIA #[id number] [address] [address] [address] This report was created with the [employer] voice-activated dictation system. Inherent to this system is the possibility of syntax, grammar, punctuation and other errors that could impact the interpretation of the report. If there are interpretative questions about aspects of this report, please contact the performing pathologist. 11:26 AM ASTROCHEMIST [facility] Tissue (Uterus, Cervix, Ovaries, bilateral, Fallopian tubes, bilateral) Collection / Unknown 08/06/2023 6:39 PM ASTROCHEMIST 08/07/2023 6:35 AM ASTROCHEMIST Tissue specimen (specimen) (Omentum) Collection / Unknown 08/06/2023 8:05 PM ASTROCHEMIST 08/07/2023 6:35 AM ASTROCHEMIST Tissue specimen (specimen) (Small Intestine) 08/06/2023 8:41 PM ASTROCHEMIST 08/07/2023 6:35 AM ASTROCHEMIST Tissue specimen (specimen) ENTIRE DIAPHRAGM / Unknown 08/06/2023 9:12 PM ASTROCHEMIST 08/07/2023 6:35 AM ASTROCHEMIST Tissue specimen (specimen) (Lymph nodes, right) 08/06/2023 9:22 PM ASTROCHEMIST 08/07/2023 6:35 AM ASTROCHEMIST Aviva Humphries MD PATHOLOGY/CYTOLOGY O RDERABLES [facility] CLIA# [id number] [address] [place] [address] * CYTOLOGY, NON GYNE (08/06/2023 5:16 PM ASTROCHEMIST) CASE REPORT Medical Cytology Report ? Case: [id number] ? Authorizing Provider: ??Aviva Humphries MD ? Collected: ? 08/06/2023 05:16 PM ? Ordering Location: ? [facility] ?Received: ?08/07/2023 06:42 AM ? Operating Room ? Pathologist: ? Hitesh Diaz MD ? Specimen: ?Pelvis, Pelvic Washings ? 3 1:30 PM ASTROCHEMIST [facility] FINAL DIAGNOSIS Pelvic washing: - Positive for malignant cells. See microscopic description. 3 1:30 PM ASTROCHEMIST [facility] S DESCRIPTION Received is a container labeled Narda Eileen Tiarra and pelvic washings . It contains approximately 40 mL of cloudy red fluid. One ThinPrep made. MG 3 1:30 PM ASTROCHEMIST [facility] MICROSCOPIC DESCRIPTION The slides labeled [id number] and November. The ThinPrep slide shows rare clusters of atypical cells with high NC ratio, nuclear membrane irregularity and prominent nucleolus, consistent with carcinoma. 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 Note on use of immunohistochemistry reagents and in situ hybridization probes: These tests were developed and their performance characteristics determined by [facility], Department of Laboratory Medicine. It has not been cleared or approved by the U.S. Food and Drug Administration. The FDA has determined that such clearance or approval is not necessary. The test is used for clinical purposes. It should not be regarded as investigational or for research. This laboratory is certified to perform high complexity testing. Cases may have been signed out in part or completely in the following laboratories: [facility], CLIA #[id number] [address] [place] [address] [facility], CLIA #[id number] [address] [place] [address]. 3 1:30 PM ASTROCHEMIST [facility] Washings ENTIRE PELVIS / Unknown Collection / Unknown 08/06/2023 5:16 PM ASTROCHEMIST 08/07/2023 6:42 AM ASTROCHEMIST Aviva Humphries MD PATHOLOGY/CYTOLOGY O RDERABLES [facility] [employer] [facility] [id number] [address] [place] [address] * IR INJECTION (08/06/2023 1:48 PM ASTROCHEMIST) Narrative 08/06/2023 1:48 PM ASTROCHEMIST Order information only. ??Exam was auto-finalized. ?? Nazario Winslow MD IR ORDERABLES * VERIFICATION BLOOD GROUP (08/06/2023 1:00 PM ASTROCHEMIST) ABO GROUP A 08/06/2023 2:39 PM ASTROCHEMIST [facility] LABORATORY SERVICES -- [facility] RH (D) TYPE Positive 08/06/2023 2:39 PM ASTROCHEMIST [facility] LABORATORY SERVICES -- [facility] Blood Venipuncture / Unknown 08/06/2023 1:00 PM ASTROCHEMIST 08/06/2023 1:27 PM ASTROCHEMIST Anna Jimenez MD BLOOD BANK ORD ERABLES [facility] [employer] [facility] CLIA# [id number] [address] [place] [address] * POC GLUCOSE (08/06/2023 11:03 AM ASTROCHEMIST) GLUCOSE POC 89 74 - 99 mg/dL 08/06/2023 11:03 AM ASTROCHEMIST [facility] LABORATORY SERVICES - [facility] SPECIMEN SOURCE, GLUCOSE POC Whole Blood 08/06/2023 11:03 AM ASTROCHEMIST [facility] LABORATORY SERVICES - [facility] Blood, whole 08/06/2023 11:0 3 AM ASTROCHEMIST 08/06/2023 11:12 AM ASTROCHEMIST Aviva Humphries MD POINT OF CARE TESTIN G [facility] LABORATORY SERVICES - [facility] CLIA# [id number] [address] [place] [address] documented in this encounter Visit Diagnoses Diagnosis Preop testing- Primary Preoperative examination, unspecified Encounter for blood typing Malignant neoplasm of ovary, unspecified laterality Drug-induced androgenic alopecia Other alopecia Status post surgery Malignant neoplasm of ovary, unspecified laterality Drug-induced androgenic alopecia Other alopecia documented in this encounter Admitting Diagnoses Diagnosis Drug-induced androgenic alopecia Other alopecia documented in this encounter Administered Medications Inactive Administered Medications - up to 3 most recent administrations Medication Order MAR Action Action Date Dose Rate Site acetaminophen (TYLENOL) tablet 650 mg 650 mg, Oral, EVERY 6 HOURS, First dose on Thu08/07/23 at 0045, Until Discontinued, Routine, Post-op - Floor Given 08/12/2023 11:48 AM ASTROCHEMIST 650 mg Given 08/12/2023 5:17 AM ASTROCHEMIST 650 mg Given 08/12/2023 12:15 AM ASTROCHEMIST 650 mg albuterol (PROVENTIL,VENTOLIN) 2.5 mg /3 mL (0.083 %) inhalation solution 2.5 mg 2.5 mg, Inhalation, EVERY 6 HOURS PRN RESPIRATORY, Starting on Thu08/07/23 at 0038, Until Thu08/12/23 at 1822, Shortness of Breath, Routine atorvastatin (LIPITOR) tablet 20 mg 20 mg, Oral, DAILY AT BEDTIME, First dose on Thu08/07/23 at 2145, Until Discontinued, Routine, Previous Med: atorvastatin (LIPITOR) 20 mg tablet - Orig Sig - Take 20 mg by mouth daily at bedtime. Given 08/11/2023 8:54 PM ASTROCHEMIST 20 mg Given 08/10/2023 9:24 PM ASTROCHEMIST 20 mg Given 08/09/2023 8:30 PM ASTROCHEMIST 20 mg dextrose 5 % in water 250 mL flush bag 25 mL 25 mL, IV, SEE ADMIN INSTRUCTIONS, Starting on Thu08/11/23 at 0758, Until Thu08/12/23 at 1822, Routine enoxaparin (LOVENOX) injection 40 mg 40 mg, subCUT, EVERY 24 HOURS, First dose on Thu08/07/23 at 0900, Until Discontinued, Routine, Post-op - Floor, Indication: Prophylaxis of VTE, Dose to be adjusted per facility protocol? Yes Given 08/12/2023 8:29 AM ASTROCHEMIST 40 mg Abdomen, Left Lower Quadrant Given 08/11/2023 8:23 AM ASTROCHEMIST 40 mg Ab dominal Tissue Given 08/10/2023 9:51 AM ASTROCHEMIST 40 mg Ab dominal Tissue famotidine PF (PEPCID) 20 mg/2 mL injection 20 mg 20 mg, IV, EVERY 12 HOURS, First dose on Thu08/09/23 at 0930, Until Discontinued, Routine Given 08/12/2023 8:3 0 AM ASTROCHEMIST 20 mg Given 08/11/2023 8:54 PM ASTROCHEMIST 20 mg Given 08/11/2023 9:14 AM ASTROCHEMIST 20 mg fluticasone furoate-vilanteroL (BREO ELLIPTA) 100-25 mcg/dose inhaler 1 Puff 1 Puff, Inhalation, DAILY RESPIRATORY, First dose on Thu08/07/23 at 0800, Until Discontinued, Routine Given 08/12/2023 8:45 AM ASTROCHEMIST 1 Puff Given 08/11/2023 11:06 AM ASTROCHEMIST 1 Puff Given 08/10/2023 9:21 AM ASTROCHEMIST 1 Puff loratadine (CLARITIN) tablet 10 mg 10 mg, Oral, DAILY, First dose on Thu08/09/23 at 0930, Until Discontinued, Routine Given 08/12/2023 5:17 AM ASTROCHEMIST 10 mg Given 08/11/2023 5:18 AM ASTROCHEMIST 10 mg Given 08/10/2023 5:03 AM ASTROCHEMIST 10 mg naloxone (NARCAN) 0.4 mg/mL injection 0.1 mg 0.1 mg, IV, SEE ADMIN INSTRUCTIONS, Starting on Peace 08/06/23 at 1203, Until Thu08/12/23 at 1822, Routine, PACU ondansetron (ZOFRAN) 4 mg/2 mL injection 4 mg 4 mg, IV, EVERY 6 HOURS PRN, Starting on Thu08/07/23 at 0031, Until Thu08/12/23 at 1822, Nausea/Emesis, Routine, Post-op - Floor Given 08/09/2023 9:38 AM ASTROCHEMIST 4 mg oxyCODONE (ROXICODONE) tablet 5 mg 5 mg, Oral, EVERY 6 HOURS PRN, Starting on 08/10/23 at 1057, Until Thu08/12/23 at 1822, Pain, Severe, Routine polyvinyl alcohol-povidon(PF) (REFRESH CLASSIC) 1.4-0.6 % ophthalmic solution 2 Drop 2 Drop, Both Eyes, EVERY 4 HOURS PRN, Starting on Thu08/07/23 at 1818, Until Thu08/12/23 at 1822, Discomfort, Routine sennosides-docusate sodium (SENNA-S) 8.6-50 mg per tablet 1 Tablet 1 Tablet, Oral, TWO TIMES DAILY, First dose on Thu08/09/23 at 1015, Until Discontinued, Routine Given 08/12/2023 5:17 AM ASTROCHEMIST 1 Tablet Given 08/11/2023 5:18 AM ASTROCHEMIST 1 Tablet Given 08/10/2023 6:16 PM ASTROCHEMIST 1 Tablet sodium chloride (OCEAN) 0.65 % nasal soln 2 [place] 2 [place], Both Nostrils, EVERY 15 MINUTES PRN, Starting on 08/08/23 at 1558, Until Thu08/12/23 at 1822, Other (See Comment), dry, Routine sodium chloride 0.9 % 250 mL flush bag 25 mL 25 mL, IV, SEE ADMIN INSTRUCTIONS, Starting on Thu08/11/23 at 0758, Until Thu08/12/23 at 1822, Routine sodium chloride flush injection 5 mL 5 mL, IV, EVERY 12 HOURS (BlD), First dose on Thu08/11/23 at 0800, Until Discontinued, Routine Given 08/11/2023 5 :36 PM ASTROCHEMIST 5 mL Given 08/11/2023 8:25 AM ASTROCHEMIST 5 mL sodium chloride flush injection 5 mL 5 mL, IV, SEE ADMIN INSTRUCTIONS, Starting on Thu08/11/23 at 0758, Until Thu08/12/23 at 1822, Routine documented in this encounter Active and Recently Administered Medications Times are shown in ASTROCHEMIST. Scheduled Medication Order 08/10/2023 08/11/2023 08/12/2023 acetaminophen (TYLENOL) tablet 650 mg 650 mg, Oral, EVERY 6 HOURS, First dose on Thu08/07/23 at 0045, Until Discontinued, Routine, Post-op - Floor 0503 (Given - Provider: Theresa Grayson RN)1130 (Given - Provider: Maryan Jaeger, JANET)1816 (Given - Provider: Maryan Jaeger, JANET) 0004 (Given - Provider: Gisell Rahman RN)0518 (Given - Provider: Gisell Rahman RN)1245 (Given - Provider: Chuy Wills RN)1734 (Given - Provider: Chuy Wills RN) 0015 (Given - Provider: Gisell Rahman, RN)0517 (Given - Provider: Gisell Rahman RN)1148 (Given - Provider: Yolanda Marinelli, RN) atorvastatin (LIPITOR) tablet 20 mg 20 mg, Oral, DAILY AT BEDTIME, First dose on Thu08/07/23 at 2145, Until Discontinued, Routine, Previous Med: atorvastatin (LIPITOR) 20 mg tablet - Orig Sig - Take 20 mg by mouth daily at bedtime. 2123 (Given - Provider: Gisell Rahman RN) 2053 (Given - Provider: Gisell Rahman RN) dextrose 5 % in water 250 mL flush bag 25 mL 25 mL, IV, SEE ADMIN INSTRUCTIONS, Starting on Thu08/11/23 at 0758, Until Thu08/12/23 at 1822, Routine diatrizoate meglumine (CYSTOGRAFIN) 18% urethral solution 300 mL (COMPLETED) 300 mL, Urethral, INTRA-PROCEDURE ONCE, 1 dose, Starting on Thu08/11/23 at 1049, Until Thu08/11/23 at 1050, Routine 1050 (Contrast Given - Provider: Jitendra Godinez, RT) enoxaparin (LOVENOX) injection 40 mg 40 mg, subCUT, EVERY 24 HOURS, First dose on Thu08/07/23 at 0900, Until Discontinued, Routine, Post-op - Floor, Indication: Prophylaxis of VTE, Dose to be adjusted per facility protocol? Yes 0951 (Given - Provider: Maryan Jaeger RN) 0823 (Given - Provider: Chuy Wills RN) 0829 (Given - Provider: Yoladna Marinelli, JANET) famotidine PF (PEPCID) 20 mg/2 mL injection 20 mg 20 mg, IV, EVERY 12 HOURS, First dose on Thu08/09/23 at 0930, Until Discontinued, Routine 0952 (Given - Provider: Maryan Jaeger RN)2123 (Given - Provider: Gisell Rahman RN) 09 (Given - Provider: Chuy Wills RN)2053 (Given - Provider: Gisell Rahman, JANET) 0830 (Given - Provider: Yolanda Marinelli, JANET) fluticasone furoate-vilanteroL (BREO ELLIPTA) 100-25 mcg/dose inhaler 1 Puff 1 Puff, Inhalation, DAILY RESPIRATORY, First dose on Thu08/07/23 at 0800, Until Discontinued, Routine 0921 (Given - Provider: Constanza Agudelo RCP) 1106 (Given - Provider: Chuy Wills, RN) 0845 (Given - Provider: Genevieve Mack RCP) ibuprofen (MOTRIN) tablet 600 mg (CANCELED) 600 mg, Oral, EVERY 6 HOURS, First dose on Thu08/10/23 at 1200, Until Discontinued, Routine 1130 (Given - Provider: Maryan Jaeger, JANET)1816 (Given - Provider: Maryan Jaeger, RN) 0004 (Given - Provider: Gisell Rahman RN)0518 (Given - Provider: Gisell Rahman RN)1245 (Given - Provider: Chuy Wills, RN)1735 (Given - Provider: Chuy Wills, RN) 0015 (Given - Provider: Gisell Rahman, JANET)0517 (Given - Provider: Gisell Rahman RN) lactated ringers bolus solution 500 mL (COMPLETED) 500 mL, IV, ONE TIME ONLY, 1 dose, On Thu08/12/23 at 0845, at 999 mL/hr, Administer over 30 Minutes, Routine 0918 (New Bag - Provider: Yolanda Marinelli, JANET)0948 (Stopped - Provider: Yolanda Marinelli, JANET) loratadine (CLARITIN) tablet 10 mg 10 mg, Oral, DAILY, First dose on Thu08/09/23 at 0930, Until Discontinued, Routine 0503 (Given - Provider: Theresa Garyson RN) 0518 (Given - Provider: Gisell Rahman RN) 0517 (Given - Provider: Gisell Rahman, JANET) naloxone (NARCAN) 0.4 mg/mL injection 0.1 mg 0.1 mg, IV, SEE ADMIN INSTRUCTIONS, Starting on Peace 08/06/23 at 1203, Until Thu08/12/23 at 1822, Routine, PACU sennosides-docusate sodium (SENNA-S) 8.6-50 mg per tablet 1 Tablet 1 Tablet, Oral, TWO TIMES DAILY, First dose on Thu08/09/23 at 1015, Until Discontinued, Routine 0503 (Given - Provider: Theresa Grayson, RN)1816 (Given - Provider: Maryan Jaeger, RN) 0518 (Given - Provider: Gisell Rahman, RN)1735 (Refused - Provider: Chuy Wills, RN) 0517 (Given - Provider: Gisell Rahman, RN) sodium chloride 0.9 % 250 mL flush bag 25 mL 25 mL, IV, SEE ADMIN INSTRUCTIONS, Starting on Thu08/11/23 at 0758, Until Thu08/12/23 at 1822, Routine sodium chloride flush injection 5 mL 5 mL, IV, EVERY 12 HOURS (BlD), First dose on Thu08/11/23 at 0800, Until Discontinued, Routine 0825 (Given - Provider: Chuy Wills RN)1736 (Given - Provider: Chuy Wills RN) 0600 (Canceled Entry - Provider: Gisell Rahman RN) sodium chloride flush injection 5 mL 5 mL, IV, SEE ADMIN INSTRUCTIONS, Starting on Thu08/11/23 at 0758, Until Thu08/12/23 at 1822, Routine PRN Medication Order 08/10/2023 08/11/2023 08/12/2023 albuterol (PROVENTIL,VENTOLIN) 2.5 mg /3 mL (0.083 %) inhalation solution 2.5 mg 2.5 mg, Inhalation, EVERY 6 HOURS PRN RESPIRATORY, Starting on Thu08/07/23 at 0038, Until Thu08/12/23 at 1822, Shortness of Breath, Routine ondansetron (ZOFRAN) 4 mg/2 mL injection 4 mg 4 mg, IV, EVERY 6 HOURS PRN, Starting on Thu08/07/23 at 0031, Until Thu08/12/23 at 1822, Nausea/Emesis, Routine, Post-op - Floor oxyCODONE (ROXICODONE) tablet 5 mg 5 mg, Oral, EVERY 6 HOURS PRN, Starting on Thu08/10/23 at 1057, Until Thu08/12/23 at 1822, Pain, Severe, Routine polyvinyl alcohol-povidon(PF) (REFRESH CLASSIC) 1.4-0.6 % ophthalmic solution 2 Drop 2 Drop, Both Eyes, EVERY 4 HOURS PRN, Starting on Thu08/07/23 at 1818, Until Thu08/12/23 at 1822, Discomfort, Routine prochlorperazine maleate (COMPAZINE) tablet 10 mg 10 mg, Oral, EVERY 6 HOURS PRN, Starting on Thu08/07/23 at 0031, Until Thu08/12/23 at 1822, Nausea/Emesis, Routine, Post-op - Floor sodium chloride (OCEAN) 0.65 % nasal soln 2 [place] 2 [place], Both Nostrils, EVERY 15 MINUTES PRN, Starting on 08/08/23 at 1558, Until Thu08/12/23 at 1822, Other (See Comment), dry, Routine documented in this encounter Care Teams Supervisor Veneer Relationship Specialty Start Date End Date Shilo Soares MD [address] [place] [phone] PCP - General Internal Medicine 04/24/23 documented as of this encounter
--- OUTSIDE RECORDS SUMMARY | 2024-07-26 23:58 | XMS_ITS | Encounter Summary ---
Author Organization [facility] Address [address] [place] [address] Care Team Providers Care Director Operating Name Role Phone Shilo Soares MD Primary Care Provider [phone] Encounter Details Date Type Department Care Team (Late st Contact Info) Description 08/05/2023 External Device Data STL ABSTRACTION Provider, Abstract [...] st Contact Info) Description 08/04/2024 1:00 PM FAMILY INTERVENTION SPECIALIST Appointment Randy Hall [facility] Infusion Center 2nd Fl [address] [place] [phone] Aviva Humphries MD [address] [place] [address] Infusion Chair 5, 2nd Floor Hall 08/25/2024 1:00 PM FAMILY INTERVENTION SPECIALIST Office Visit [facility] Gynecologic Oncology Hall [address] [place] [address] Edilia Pettit NP [address] [place] [address] 08/25/2024 1:30 PM FAMILY INTERVENTION SPECIALIST Appointment Randy Hall [facility] Infusion Center 2nd Fl [address] [place] [address] Aviva Humphries MD [address] [place] [address] Infusion Chair 1, 2nd Floor [place] 09/01/2024 10:45 AM FAMILY INTERVENTION SPECIALIST Appointment Randy Proctor [facility] Nuclear Medicine [address] [place] [id number] Edilia Pettit NP [address] [place] [address] documented as of this encounter Visit Diagnoses Not on filedocumented in this encounter Care Teams Director Operating Relationship Specialty Start Date End Date Shilo Soares MD [address] [place] [address] PCP - General Internal Medicine 04/24/23 documented as of this encounter
--- OUTSIDE RECORDS SUMMARY | 2024-07-26 23:58 | XMS_ITS | Encounter Summary ---
Author Organization [facility] Address [address] [place] [address] Care Team Providers Care Lead Mechanic Name Role Phone Shilo Soares MD Primary Care Provider [phone] Reason for Visit * Reason Onset Date Comments Surgery 07/30/2023 spoke to patient and provided surgery arrival time @ 9:30 AM with start time @ 11:30 AM on 08/06/23 Encounter Details Date Type Department Care Team ([facility] Contact Info) Description 07/30/2023 Telephone [facility] Gynecologic Oncology Hall [address] [place] [address] Aviva Humphries MD [address] [place] [address] Surgery (spoke to patient and provided surgery arrival time @ 9:30 AM with start time @ 11:30 AM on 08/06/23) Social History Tobacco Use Types Packs/Day Years [...] Upcoming Encounters Date Type Department Care Team ([facility] Contact Info) Description 08/04/2024 1:00 PM BINDERY LIBRARY TECHNICAL ASSISTANT Appointment Randy Hall Cancer [facility] 2nd Fl [address] [place] [address] Aviva Humphries MD [address] [place] [address] Infusion Chair 5, 2nd Floor Hall 08/25/2024 1:00 PM BINDERY LIBRARY TECHNICAL ASSISTANT Office Visit [facility] Gynecologic Oncology Hall [address] [place] [address] Edilia Pettit, CHELY [address] [place] [address] 08/25/2024 1:30 PM BINDERY LIBRARY TECHNICAL ASSISTANT Appointment Randy Proctor [facility] Infusion Center 2nd Fl [address] [place] [address] Aviva Humphries MD [address] [place] [address] Infusion Chair 1, 2nd Floor [place] 09/01/2024 10:45 AM BINDERY LIBRARY TECHNICAL ASSISTANT Appointment Randy [facility] Nuclear Medicine [address] [place] [address] [id number] Edilia Pettit NP [address] [place] [address] documented as of this encounter Visit Diagnoses Not on filedocumented in this encounter Care Teams Lead Mechanic Relationship Specialty Start Date End Date Shilo Soares MD [address] [place] [address] PCP - General Internal Medicine 04/24/23 documented as of this encounter
--- OUTSIDE RECORDS SUMMARY | 2024-07-26 23:58 | XMS_ITS | Encounter Summary ---
Author Organization [facility] Address [address] [place] [address] Care Team Providers Care Warehouse Shipping Receiving Clerk Name Role Phone Shilo Soares MD Primary Care Provider [phone] Encounter Details Date Type Department Care Team (Late st Contact Info) Description 08/04/2023 External Device Data STL ABSTRACTION Provider, Abstract [...] st Contact Info) Description 08/04/2024 1:00 PM PAPER INSERTER Appointment Randy Hall Cancer [facility] Infusion Center 2nd Fl [address] [place] [phone] Aviva Humphries MD [address] [place] [address] Infusion Chair 5, 2nd Floor Hall 08/25/2024 1:00 PM PAPER INSERTER Office Visit [facility] Gynecologic Oncology Hall [address] [place] [address] Edilia Pettit NP [address] [place] [address] 08/25/2024 1:30 PM PAPER INSERTER Appointment Randy Hall [facility] Infusion Center 2nd Fl [address] [place] [address] Aviva Humphries MD [address] [place] [address] Infusion Chair 1, 2nd Floor [place] 09/01/2024 10:45 AM PAPER INSERTER Appointment Randy Proctor [facility] Nuclear Medicine [address] [place] [phone] [id number] Edilia Pettit NP [address] [place] [address] documented as of this encounter Visit Diagnoses Not on filedocumented in this encounter Care Teams Warehouse Shipping Receiving Clerk Relationship Specialty Start Date End Date Shilo Soares MD [address] [place] [address] PCP - General Internal Medicine 04/24/23 documented as of this encounter
--- OUTSIDE RECORDS SUMMARY | 2024-07-26 23:58 | XMS_ITS | Encounter Summary ---
Author Organization [facility] Address [address] [place] [address] Care Team Providers Care Garage Hand Name Role Phone Shilo Soares MD Primary Care Provider [phone] Encounter Details Date Type Department Care Team [...] st Contact Info) Description 08/04/2024 1:00 PM ABORIGINAL LIAISON OFFICER Appointment Randy Hall Cancer [facility] Infusion Center 2nd Fl [address] [place] [phone] Aviva Humphries MD [address] [place] [address] Infusion Chair 5, 2nd Floor Hall 08/25/2024 1:00 PM ABORIGINAL LIAISON OFFICER Office Visit [facility] Gynecologic Oncology Hall [address] [place] [address] Edilia Pettit NP [address] [place] [address] 08/25/2024 1:30 PM ABORIGINAL LIAISON OFFICER Appointment Randy Hall [facility] Infusion Center 2nd Fl [address] [place] [address] Aviva Humphries MD [address] [place] [address] Infusion Chair 1, 2nd Floor [place] 09/01/2024 10:45 AM ABORIGINAL LIAISON OFFICER Appointment Randy Proctor [facility] Nuclear Medicine [address] [place] [phone] [id number] Edilai Pettit NP [address] [place] [address] documented as of this encounter Visit Diagnoses Not on filedocumented in this encounter Care Teams Garage Hand Relationship Specialty Start Date End Date Shilo Soares MD [address] [place] [address] PCP - General Internal Medicine 04/24/23 documented as of this encounter
--- OUTSIDE RECORDS SUMMARY | 2024-07-26 23:58 | XMS_ITS | Encounter Summary ---
Author Organization [facility] Address [address] [place] [address] Care Team Providers Care Street And Building Decorator Name Role Phone Shilo Soares MD Primary Care Provider [phone] Encounter Details Date Type Department Care Team (Late Contact Info) Description 08/08/2023 External Device Data STL ABSTRACTION Provider, Abstract [...] (Late Contact Info) Description 08/04/2024 1:00 PM SUSTAINABILITY ANALYST Appointment [facility] 2nd Ms [address] [place] [address] Aviva Humphries MD [address] [place] [address] Infusion Chair 5, 2nd Floor Hall 08/25/2024 1:00 PM SUSTAINABILITY ANALYST Office Visit [facility] Gynecologic Oncology Hall [address] [place] [address] Edilia Pettit, CHELY [address] [place] [phone] 08/25/2024 1:30 PM SUSTAINABILITY ANALYST Appointment [facility] 2nd Fl [address] [place] [address] Aviva Humphries MD [address] [place] [address] Infusion Chair 1, 2nd Floor [place] 09/01/2024 10:45 AM SUSTAINABILITY ANALYST Appointment Randy Hall Cancer [facility] Nuclear Medicine [address] [place] [address] [id number] Edilia Pettit, CHELY [address] [place] [address] documented as of this encounter Visit Diagnoses Not on filedocumented in this encounter Care Teams Street And Building Decorator Relationship Specialty Start Date End Date Shilo Soares MD [address] [place] [address] PCP - General Internal Medicine 04/24/23 documented as of this encounter
--- OUTSIDE RECORDS SUMMARY | 2024-07-26 23:58 | XMS_ITS | Encounter Summary ---
Author Organization [facility] Address [address] Attn: Epic Prelude ADT [place] [address] Care Team Providers Care Lighthouse Keeper Name Role Phone Shilo Soares MD Primary Care Provider [phone] Encounter Details Date Type Department Care Team (Latest Contact Info) Description 08/06/2023 Travel Social History Tobacco Use Types Packs/Day Years [...] Contact Info) Description 08/04/2024 1:00 PM FAMILY SERVICE AIDE Appointment [facility] 2nd Fl [address] [place] [address] Aviva Humphries MD [address] [place] [address] Infusion Chair 5, 2nd Floor Hall 08/25/2024 1:00 PM FAMILY SERVICE AIDE Office Visit [facility] Gynecologic Oncology Hall [address] [place] [address] Edilia Pettit, CHELY [address] [place] [address] 08/25/2024 1:30 PM FAMILY SERVICE AIDE Appointment Randy [facility] Infusion Center 2nd Fl [address] [place] [address] Aviva Humphries MD [address] [place] [address] Infusion Chair 1, 2nd Floor [place] 09/01/2024 10:45 AM FAMILY SERVICE AIDE Appointment Randy Proctor [facility] Nuclear Medicine [address] [place] [address] [id number] Edilia Pettit, CHELY [address] [place] [address] documented as of this encounter Visit Diagnoses Not on filedocumented in this encounter Care Teams Lighthouse Keeper Relationship Specialty Start Date End Date Shilo Soares MD [address] [place] [address] PCP - General Internal Medicine 04/24/23 documented as of this encounter
--- OUTSIDE RECORDS SUMMARY | 2024-07-26 23:58 | XMS_ITS | Encounter Summary ---
Author Organization [facility] Address [address] [place] [address] Care Team Providers Care Charcoal Unloader Name Role Phone Shilo Soares MD Primary Care Provider [phone] Encounter Details Date Type Department Care Team [...] st Contact Info) Description 08/04/2024 1:00 PM INTERRELATED SPECIAL EDUCATION TEACHER Appointment Randy Hall Cancer [facility] Infusion Center 2nd Fl [address] [place] [phone] Aviva Humphries MD [address] [place] [address] Infusion Chair 5, 2nd Floor Hall 08/25/2024 1:00 PM INTERRELATED SPECIAL EDUCATION TEACHER Office Visit [facility] Gynecologic Oncology Hall [address] [place] [address] Edilia Pettit NP [address] [place] [address] 08/25/2024 1:30 PM INTERRELATED SPECIAL EDUCATION TEACHER Appointment Randy Hall [facility] Infusion Center 2nd Fl [address] [place] [address] Aviva Humphries MD [address] [place] [address] Infusion Chair 1, 2nd Floor [place] 09/01/2024 10:45 AM INTERRELATED SPECIAL EDUCATION TEACHER Appointment Randy Proctor [facility] Nuclear Medicine [address] [place] [phone] [id number] Edilia Pettit NP [address] [place] [address] documented as of this encounter Visit Diagnoses Not on filedocumented in this encounter Care Teams Charcoal Unloader Relationship Specialty Start Date End Date Shilo Soares MD [address] [place] [address] PCP - General Internal Medicine 04/24/23 documented as of this encounter
--- OUTSIDE RECORDS SUMMARY | 2024-07-26 23:58 | XMS_ITS | Encounter Summary ---
Author Organization [facility] Address [address] [place] [address] Care Team Providers Care Property Management Accountant Name Role Phone Shilo Soares MD Primary Care Provider [phone] Encounter Details Date Type Department Care Team (Late Contact Info) Description 08/07/2023 External Device Data STL ABSTRACTION Provider, Abstract [...] (Late Contact Info) Description 08/04/2024 1:00 PM FERTILIZER PROCESSING SUPERVISOR Appointment [facility] 2nd Ok [address] [place] [address] Aviva Humphries MD [address] [place] [address] Infusion Chair 5, 2nd Floor Hall 08/25/2024 1:00 PM FERTILIZER PROCESSING SUPERVISOR Office Visit [facility] Gynecologic Oncology Hall [address] [place] [address] Edilia Pettit, CHELY [address] [place] [phone] 08/25/2024 1:30 PM FERTILIZER PROCESSING SUPERVISOR Appointment [facility] 2nd Fl [address] [place] [address] Aviva Humphries MD [address] [place] [phone] Infusion Chair 1, 2nd Floor [place] 09/01/2024 10:45 AM FERTILIZER PROCESSING SUPERVISOR Appointment [facility] Nuclear Medicine [address] [place] [address] [id number] Edilia Pettit, CHELY [address] [facility] [address] [place] [address] documented as of this encounter Visit Diagnoses Not on filedocumented in this encounter Care Teams Property Management Accountant Relationship Specialty Start Date End Date Shilo Soares MD [address] [place] [phone] PCP - General Internal Medicine 04/24/23 documented as of this encounter
--- OUTSIDE RECORDS SUMMARY | 2024-07-26 23:58 | XMS_ITS | Encounter Summary ---
Author Organization [facility] Address [address] [place] [address] Care Team Providers Care Baggage Handling Supervisor Name Role Phone Shilo Soares MD Primary Care Provider [phone] Encounter Details Date Type Department Care Team (Late Contact Info) Description 08/09/2023 External Device Data STL ABSTRACTION Provider, Abstract [...] (Late Contact Info) Description 08/04/2024 1:00 PM AMBULANCE DRIVER PARAMEDIC Appointment [facility] 2nd Me [address] [place] [address] Aviva Humphries MD [address] [place] [address] Infusion Chair 5, 2nd Floor Hall 08/25/2024 1:00 PM AMBULANCE DRIVER PARAMEDIC Office Visit [facility] Gynecologic Oncology Hall [address] [place] [address] Edilia Pettit, CHELY [address] [place] [phone] 08/25/2024 1:30 PM AMBULANCE DRIVER PARAMEDIC Appointment [facility] 2nd Fl [address] [place] [address] Aviva Humphries MD [address] [place] [address] Infusion Chair 1, 2nd Floor [place] 09/01/2024 10:45 AM AMBULANCE DRIVER PARAMEDIC Appointment [facility] Nuclear Medicine [address] [place] [address] [id number] Edilia Pettit, CHELY [address] [facility] [address] [place] [address] documented as of this encounter Visit Diagnoses Not on filedocumented in this encounter Care Teams Baggage Handling Supervisor Relationship Specialty Start Date End Date Shilo Soares MD [address] [place] [phone] PCP - General Internal Medicine 04/24/23 documented as of this encounter
--- OUTSIDE RECORDS SUMMARY | 2024-07-26 23:58 | XMS_ITS | Encounter Summary ---
Author Organization [facility] Address [address] [place] [address] Care Team Providers Care Hoop Expander Name Role Phone Shilo Soares MD Primary Care Provider [phone] Encounter Details Date Type Department Care Team (Late st Contact Info) Description 08/03/2023 External Device Data STL ABSTRACTION Provider, Abstract [...] st Contact Info) Description 08/04/2024 1:00 PM SKEIN DRIER Appointment [facility] Infusion Center 2nd Fl [address] [place] [phone] Aviva Humphries MD [address] [place] [address] Infusion Chair 5, 2nd Floor [place] 08/25/2024 1:00 PM SKEIN DRIER Office Visit [facility] Gynecologic Oncology Hall [address] [place] [address] Edilia Pettit NP [address] [place] [address] 08/25/2024 1:30 PM SKEIN DRIER Appointment [facility] Infusion Center 2nd Fl [address] [place] [phone] Aviva Humphries MD [address] [place] [address] Infusion Chair 1, 2nd Floor Hall 09/01/2024 10:45 AM SKEIN DRIER Appointment [facility] [address] [place] [address] [id number] Edilia Pettit, CHELY [address] [place] [address] documented as of this encounter Visit Diagnoses Not on filedocumented in this encounter Care Teams Hoop Expander Relationship Specialty Start Date End Date Shilo Soares MD [address] [place] [address] PCP - General Internal Medicine 04/24/23 documented as of this encounter
--- OUTSIDE RECORDS SUMMARY | 2024-07-26 23:58 | XMS_ITS | Encounter Summary ---
Author Organization [facility] Address [address] [place] [address] Care Team Providers Care Industrial Chemist Name Role Phone Shilo Soares MD Primary Care Provider [phone] Reason for Visit * Reason Onset Date Comments Post-op Follow-up 08/11/2023 Encounter Details Date Type Department Care Team (Late st Contact Info) Description 08/11/2023 Telephone [facility] Gynecologic Oncology Hall [address] [place] [address] Aviva Humphries MD [address] [facility] [address] [place] [address] Post-op Follow-up Social History Tobacco Use Types Packs/Day Years [...] Encounter - Nae Harrington RN - 08/11/2023 9:38 AM CST Called pt to see how she was doing after surgery. She states that she is doing good but still inpatient. Let her know that post op is 08/19 @ 1:00 and to call office if any concerns or questions she voiced understanding. WARE REQUIREMENTS ENGINEER documented in this encounter Plan of Treatment Upcoming Encounters Date Type Department Care Team (Late st Contact Info) Description 08/04/2024 1:00 PM SOFTWARE REQUIREMENTS ENGINEER Appointment [facility] Infusion Center 2nd Fl [address] [place] [address] Aviva Humphries MD [address] [facility] [address] [place] [address] Infusion Chair 5, 2nd Floor Hall 08/25/2024 1:00 PM SOFTWARE REQUIREMENTS ENGINEER Office Visit [facility] Gynecologic Oncology [place] [address] [facility] [address] [place] [address] Edilia Pettit, CHELY [address] [facility] [address] [place] [address] 08/25/2024 1:30 PM SOFTWARE REQUIREMENTS ENGINEER Appointment [facility] Center 2nd Fl [address] [place] [address] Aviva Humphries MD [address] [facility] [address] [facility] [place] [address] Infusion Chair 1, 2nd Floor Hall 09/01/2024 10:45 AM SOFTWARE REQUIREMENTS ENGINEER Appointment [facility] Nuclear Medicine [address] [place] [address] [phone] Edilia Pettit, CHELY [address] [facility] [address] [place] [phone] documented as of this encounter Visit Diagnoses Not on filedocumented in this encounter Care Teams Industrial Chemist Relationship Specialty Start Date End Date Shilo Soares MD [address] [phone] PCP - General Internal Medicine 04/24/23 documented as of this encounter
--- OUTSIDE RECORDS SUMMARY | 2024-07-26 23:58 | XMS_ITS | Encounter Summary ---
Author Organization [facility] Address [address] [place] [address] Care Team Providers Care Freelance Writer Name Role Phone Shilo Soares MD Primary Care Provider [phone] Reason for Visit * Auth/Cert (Routine) Specialty Diagnoses / Procedures Referred By Alison gomez Referred To Contact Perioperative Diagnoses Malignant neoplasm of ovary, unspecified laterality Drug-induced androgenic alopecia Procedures HI TOTAL ABDOMINAL HYSTERECT W/WO RMVL TUBE OVARY HI LAPAROSCOPY W/RMVL ADNEXAL STRUCTURES HI BSO W/OMENTECTOMY DANETTE&RAD DEBULKING DISSECTION HYSTERECTOMY ABDOMINAL TOTAL SALPINGO-OOPHORECTOMY LAPAROSCOPIC Aviva Humphries MD [address] [facility] [place] [address] [facility] Or [address] [place] [address] Referral ID Status Reason Start Date Expiration Date Visits Re quested Visits Authorized [id number] 1 1 Encounter Details Date Type Department Care Team (Latest Contact Info) Description 08/06/2023 9:08 AM IRISH MOSS GATHERER - 08/12/2023 4:12 PM [facility] Hospital Encounter [facility] Oncology [address] [place] [address] Aviva Humphries MD [address] [facility] [place] [address] Protein-calorie malnutrition, severe Discharge Disposition: Home or Self Care Social [...] Sign Reading Time Taken Comments Blood Pressure 131/74 08/12/2023 7:24 AM IRISH MOSS GATHERER Pulse 90 08/12/2023 7:24 AM IRISH MOSS GATHERER Temperature 36.5 ??C (97.7 ??F) 08/12/2023 7:24 AM CS T Respiratory Rate 18 08/12/2023 7:24 AM IRISH MOSS GATHERER Oxygen Saturation 98% 08/12/2023 7:24 AM IRISH MOSS GATHERER Inhaled Oxygen Concentration - - Weight 46.7 kg (103 lb) 08/07/2023 1:47 AM IRISH MOSS GATHERER Height 167.6 cm (5' 6 ) 08/07/2023 1:47 AM IRISH MOSS GATHERER Body Mass Index 16.62 08/07/2023 1:47 AM IRISH MOSS GATHERER documented in this encounter Discharge Summaries * Aviva Humphries MD - 08/12/2023 3:10 PM CST Images from the original note were not included. [facility] GYNECOLOGIC ONCOLOGY [address] [place] [address] Office: Office [address] [place] [address] Office: Renal US: IMPRESSION: 1. Normal renal ultrasound without evidence of hydronephrosis. FeNa 0.5%, pre-renal Repeat Cr 1.22 Will discharge to home; will continue to follow Cr outpatient. Aviva Humphries MD [facility] Gynecologic Oncology Gynecology Oncology Discharge Summary November Tiarra 08/11/2023 2:13 PM [id number] Admit Date: 08/06/2023 Discharge Date: 08/12/2023 Discharge Time: 1515 Meter Calibrator: Aviva Humphries MD Surgery:Procedure(s): HYSTERECTOMY ABDOMINAL TOTAL SALPINGO-OOPHORECTOMY LAPAROSCOPIC URETEROLYSIS BLADDER REPAIR CYSTOURETHROSCOPY OMENTECTOMY DIAPHRAGM BIOPSY INGUINAL OR FEMORAL LYMPH NODE BIOPSY/EXCISION Hospital Course: The patient was [facility] on 08/[facility]2023 for a scheduleddiagnostic laparoscopy, total [...] fat loss (08/07/23 1600) Muscle Wasting Assessment: Severe(08/07/23 1600) Percentage of Energy: < 75% for > or equal to 1 month (severe-chronic) (08/07/23 1600) Percentage of Weight Loss: (says wt fluctuated, think loss with ascites/paracentesis and now surgery) (08/07/23 1600) Malnutrition Recommendations: Oral supplements;See dietitian recommendations in Care Plan note (08/07/23 1600) Problems: Active Hospital Problems Diagnosis Bladder injury Drug-induced androgenic alopecia Protein-calorie malnutrition, severe Ovarian cancer Resolved Hospital Problems No resolved problems to display. HOME LENDING OFFICER meds: Facility-Administered Medications Prior to Admission Medication [...] every 6 hours as needed. 08/05/2023 at 1999 atorvastatin (LIPITOR) 20 mg tablet Take 20 mg by mouth daily at bedtime. 08/05/2023 at 1999 fluticasone propionate (FLONASE) 50 mcg/spray Hansen, Suspension nasal inhaler Administer 2 Sprays in [...] mouth. Refills: 0 fluticasone propionate 50 mcg/spray Hansen, Suspension nasal inhaler Commonly known as: FLONASE [...] Your Medications These medications were sent to [facility] [address] [facility] [address] Hours: Open Daily 8 am - 12 am (midnight) Eliquis 2.5 mg tablet oxyCODONE 5 mg tablet Plan: D/C Instructions, post-op follow up, and patient's questions answered. Discharge condition: improving. Activity: pelvic rest; activity as tolerated. Diet: regular Wound care: Keep wound clean and dry Primary Emergency Contact: Extended Emergency Contact Information Primary Emergency Contact: ShaunEwa Mobile Relation: Daughter Preferred language: Thai Radio Repair Teacher needed? No Reviewed D/C Medications. Prescriptions provided: yes Follow-up appointment in 1 week. H MOSS GATHERER documented in this encounter Discharge Instructions * Discharge Instructions* Nelly Quiroz MD - 08/12/2023 3:08 PM IRISH MOSS GATHERER Images from the original note were not included. [facility] GYNECOLOGIC ONCOLOGY [address] [place] [address] Office: Office Postoperative Discharge Instructions Activity: You [...] needed to control your pain. Constipation: Use nkdb-rwi-euzagxd stool softeners to prevent constipation which is [...] you feel symptoms require urgent medical attention. H MOSS GATHERER * Discharge Instr - Diet* Sena Seay RD - 08/09/2023 3:29 PM IRISH MOSS GATHERER If you are an oncology patient being treated at [facility], there is a free outpatient dietitian available to you. Contact the Dietitian at [phone] to about resources available to you throughout treatment and recovery. If you have any nutrition-related concerns, questions, or are inter ested in speaking one-on-one about your diet, please feel free to reach out for a consultation witha Registered Dietitian. These services are available at no cost to current and former oncology and hematology patients. H MOSS GATHERER documented in this encounter Medications at Time [...] bedtime. 02/26/2021 fluticasone propionate (FLONASE) 50 mcg/spray Hansen, Suspension nasal inhaler Administer 2 Sprays in [...] complications. No s/s of distress upon discharge. H MOSS GATHERER * Aviva Humphries MD - 08/12/2023 11:33 [...] 0700 - 08/08/23 0659 08/08/23 0700 - 08/09/23658 Total Total Total Intake I.V. 156 2300 2456 -- [...] Output (mL) ([REMOVED] Naso/Oral Tube 08/06/232022 Dar glover;nasogastric 18 Fr right nostril) -- 100 100 -- -- -- -- -- -- Other -- 300 300 -- -- -- -- -- -- Est Blood Loss (mL) -- 300 300 -- -- -- -- -- -- Total Output -- 1875 1875 0 2475 2475 2650 1300 3950 Net I/O 156 425 581 0 -2475 -2475 -2650 -1300 -3950 08/09/23 07 - 08/10/23 0659 08/10/23699 - 08/11/23 0608/11/23699 - 08/12/23658 Total Total Total Intake Total Intake -- -- -- [...] 0 0 08/12/23 07 - 08/13/23 0659 Total Intake Total Intake -- -- -- [...] - Voiding without difficulty after nieto removed 08/11 - Pain well controlled - Passing flatus 2. 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 Asthma - Advair, albuterol prn 4. HLD - [atorvastatin] 5. CARLEEN, prerenal - Cr 0.74>1.01>1.19 - FeNa 0.5%, c/w prerenal injury - 08/12 Renal US wnl - s/p 500cc fluid bolus - Repeat BMP Plan: - F/u repeat BMP - Patient strongly desires discharge today Pain: tyl, toradol, IV dilaudid Diet: General DVT ppx: SCDs, Lovenox Nelly Quiroz MD SHEET METAL SMITH PGY-1 Pager: [phone] Onc PGY-1 Zone H MOSS GATHERER * Sena Seay, KAYLEY - 08/11/2023 2:26 PM CST Images from the original note were not included. CLINICAL DIETITIAN PROGRESS NOTE [facility] Nutrition Follow Up Pt declining supplements and [...] skin tear-Drainage Amount: scant (08/07/23 1630) Wound 08/07/2326 7 Right;posterior thigh ulceration-Drainage Amount: no drainage (08/10/23 0501) Wound 08/07/2326 3 abdomen surgical-Dressing Appearance: dry;intact (08/10/232122) Wound 08/07/2326 5 anterior lower quadrant surgical-Dressing Appearance: dry;intact (08/10/232122) Wound 08/07/2326 6 Left thigh skin tear-Dressing Appearance: dry;intact (08/10/23 0951) Nutrition Prescription: DIET SUPPLEMENT GEN ADULT Daily; Complete Oral Supplement, DIET GENERAL Effective Now D: Same/ Percentage of Energy: < 75% for > or equal to 1 month (severe-chronic) (08/07/23 1600) Percentage of Weight Loss: (says wt fluctuated, think loss with ascites/paracentesis and now surgery) (12/29/23 1600) Biceps and triceps: Very little space between fingers, or fingers touch (severe) (08/07/231599) Subcutaneous Fat Loss Assessment: Severe fat loss (08/07/231599) Temporal: Flattened, slight but increasing depression (moderate) (08/07/231599) Clavicle: Protruding/prominent bone (severe) (08/07/231599) Shoulder (deltoid muscle): Kwmwqqdg-hz-pyg joint looks square. Bones prominent. Acromion protrusion quite prominent (severe) (08/07/231599) Interosseous: Depressed between thumb/forefinger (severe) (08/07/231599) Thigh (quadriceps muscle): Quads can be significantly reduced (squeezed). Depression on inner thigh, obviously thin (severe) (08/07/231599) Knee: Knee bone is square and prominent, no muscle mass (severe) (08/07/231599) Calf (gastrocnemius muscle): Definite tissue reduction. Thin, flat, no muscle definition (severe) (08/07/231599) MuscleWasting Assessment: Severe (08/07/231599) I:Nutrition Intervention: Pt declining most supplements. Add Ensure Clear to dinner tray. Adding PB and crackers as snack. Continue to encourage good protein intakes. Offered Super Smoothie recipe book but pt reports not liking smoothies. Encouraged to reach out to Rafael RD's for additional supplement samples. May need [...] spent: [address], LD, ATTORNEY LAW CLERK Contact via Weat[employer] Secure Chat Ext. [phone] H MOSS GATHERER * Chuy Wills RN - 08/11/2023 1:24 PM CST Maxi removed. H MOSS GATHERER * Chuy Wills RN - 08/11/2023 11:34 AM CST Pt off floor for cystogram H MOSS GATHERER * Aviva Humphries MD - 08/11/2023 7:55 [...] 08/08/23 0659 08/08/23 0700 - 08/09/23 0659 8172-7930 7795-6517 Total 6913-9000 0817-1583 Total 8457-7411 2826-6673 Total Intake I.V. 156 2300 2456 -- [...] Output (mL) ([REMOVED] Naso/Oral Tube 08/06/232022 Dar prakashp;nasogastric 18 Fr right nostril) -- 100 100 [...] -3950 08/09/23 0700 - 08/10/23 0659 08/10/23 07 - 08/11/23 0659 5245-7630 3458-5205 Total 4887-9679 1139-5370 Total Intake Total Intake -- -- -- [...] prior to removal -PT/OT 2. Asthma - HOME LENDING OFFICER Advair, albuterol prn 2. HLD - HOME LENDING OFFICER atorvastatin Pain: tyl, Laurence Diet: general diet w/ supplements Lines/drains: Nieto to stay in place for 5-7 days post-op DVT ppx: SCDs, lovenox Ara Padilla MD H MOSS GATHERER * Aviva Humphries MD - 08/10/2023 10:55 [...] hours Trace Lemons, DO 20 mg at 08/10/23 0952 loratadine (CLARITIN) tablet 10 mg 10 mg Oral daily Trace Lemons, DO 10 mg at 08/10/23 0503 sennosides-docusate sodium (SENNA-S) 8.6-50 mg per tablet 1 Tablet 1 Tablet Oral BID Aviva Humphries MD 1 Tablet at 08/10/23 0503 morphine 4 mg/mL injection 4 mg 4 mg IV every 2 hours PRN Trace Lemons DO sodium chloride (OCEAN) 0.65 % nasal soln 2 Hansen 2 Hansen Both Nostrils every 15 minutes PRN Trace [...] BEDTIME Theresa Melissa MD 20 mg at 08/09/23 2030 naloxone (NARCAN) 0.4 mg/mL injection 0.1 mg [...] need cystogram prior to removal (plan for 1/2) Hgb appropriate Lovenox for DVT ppx Add home claritin PT/OT Dispo: inpatient for post-op recovery--possible discharge to home tomorrow or Thursday Aviva Humphries MD [facility] Gynecologic Oncology H MOSS GATHERER * Theresa Grayson RN - 08/10/2023 7:21 [...] time. RN: Prateek Garza RN Zone #: [id number] H MOSS GATHERER * Sena Seay RD - 08/09/2023 3:25 PM CST Images from the original note were not included. CLINICAL DIETITIAN PROGRESS NOTE [facility] Nutrition Follow Up Pt requesting to see [...] but recommend she may want to try [employer]. Assessment: Anthropometrics: Height: 5' 6 (167.6 cm) (08/07/23146) Weight: 46.7 kg (103 lb) (08/07/23146) Body mass index is 16.62 kg/m??. Last Bowel Movement (mm/dd/yyyy): 08/06/23 (08/09/23 0505) Pawan Score: 19 (08/09/23936) Lab Results Component Value Date/Time NA 137 [...] 08/07/2326 3 abdomen surgical-Drainage Amount: no drainage (08/09/23936) Wound 08/07/2326 5 anterior lower quadrant surgical-Drainage Amount: no drainage (08/09/23936) Wound 08/07/2326 6 Left thigh skin tear-Drainage Amount: scant (08/07/23 1630) Wound 08/07/2326 7 Right;posterior thigh ulceration-Drainage Amount: no drainage (08/07/23 1630) Wound 08/07/2326 3 abdomen surgical-Dressing Appearance: dry;intact (08/09/23936) Wound 08/07/2326 5 anterior lower quadrant surgical-Dressing Appearance: dry;intact (08/09/23936) Wound 08/07/2326 6 Left thigh skin tear-Dressing Appearance: dry;intact [...] Temporal: Flattened, slight but increasing depression (moderate) (08/07/231599) Clavicle: Protruding/prominent bone (severe) (08/07/231599) Shoulder (deltoid muscle): Tcgaqqfy-dj-eho joint looks square. Bones prominent. Acromion protrusion quite prominent (severe) (08/07/231599) Interosseous: Depressed between thumb/forefinger (severe) (08/07/231599) Thigh (quadriceps muscle): Quads can be significantly reduced (squeezed). Depression on inner thigh, obviously thin (severe) (08/07/231599) Knee: Knee bone is square and prominent, no muscle mass (severe) (08/07/231599) Calf (gastrocnemius muscle): Definite tissue reduction. Thin, flat, no muscle definition (severe) (08/07/231599) MuscleWasting Assessment: Severe (08/07/231599) I:Nutrition Intervention: CIB, [...] spent: [address], LD, ATTORNEY LAW CLERK Contact via [employer] Secure Chat Ext. [phone] H MOSS GATHERER * Aviva Humphries MD - 08/09/2023 9:56 AM CST Admit Date: 08/06/2023 Hospital day: 2 Subjective: Overall feeling well Happy to be off CV RN/IVF Pain managed Tolerating nieto catheter Ambulated in [...] chloride (OCEAN) 0.65 % nasal soln 2 Hansen 2 Hansen Both Nostrils every 15 minutes PRN Trace Lemons, DO [DISCONTINUED] hydromorPHONE (PF) (DILAUDID) 1 mg/mL syringe 0.3 mg 0.3 mg IV every 2 hours PRN Trace Lemons, DO 0.3 mg at 08/08/23 1545 [DISCONTINUED] lactated ringers infusion IV continuous Aviva Humphries MD Stopped at 08/08/23 210 acetaminophen (TYLENOL) tablet 650 mg 650 mg Oral every 6 hours Francesca Newby MD 650 mg at 08/09/23 0507 ondansetron (ZOFRAN) 4 mg/2 mL injection 4 mg 4 mg IV every 6 hours PRN Francesca Nebwy MD 4 mg at 08/09/23 0938 prochlorperazine [...] Theresa Melissa MD 20 mg at 08/08/23 210 [DISCONTINUED] dextrose 5% - lactated ringers infusion IV continuous Francesca Newby MD Stopped at 08/08/23 1100 [DISCONTINUED] HYDROmorphone (DILAUDID) 1 mg/mL CV RN injection (adult opioid naive) IV continuous Thersea Melissa MD Stopped at 08/08/23 1100 naloxone [...] MD [facility] Gynecologic Oncology H MOSS GATHERER * Theresa Grayson RN - 08/09/2023 6:48 [...] time. RN: Prateek Garza RN Zone #: [id number] H MOSS GATHERER * Aviva Humphries MD - 08/08/2023 10:43 [...] 08/08/23 0028 [DISCONTINUED] HYDROmorphone (DILAUDID) 1 mg/mL CV RN injection (adult opioid naive) IV continuous Theresa [...] Recovering appropriately. Plan: Multi-modal pain control--will stop CV RN today and allow IV pushes of pain [...] MD [facility] Gynecologic Oncology H MOSS GATHERER * Jennifer Moffett, RD - 08/07/2023 4:18 PM CST The patient was evaluated by the dietitian and was found to have Severe protein calorie malnutrition. The malnutrition pathway is recommended and the assessment via ASPEN criteria and nutrition recommendations from the dietitian are as follows: ASPEN Malnutrition Assessment and Findings Subcutaneous Fat Loss Assessment: Severe fat loss (08/07/23 1600) Muscle Wasting Assessment: Severe (08/07/23 1600) Percentage of Energy: < 75% for > or equal to 1 month (severe-chronic) (08/07/23 1600) Percentage of Weight Loss: (says wt fluctuated, think loss with ascites/paracentesis and now surgery) (08/07/231599) Malnutrition Decision Nutrition Diagnosis: Severe protein-calorie malnutrition (08/07/231599) BMI BMI (Calculated): (!) 16.63 (08/07/23 0147) Malnutrition Recommendations Malnutrition Recommendations: Oral supplements;See dietitian recommendations in Care Plan note (08/07/231599) H MOSS GATHERER * Shilo Ospina, RN - 08/07/2023 3:05 PM CST Up to side of bed for several minutes ans now back with staff to assist. Requested order to have PT/OT assess and treat. No response to this point. H MOSS GATHERER * Bettina Will RN - 08/07/2023 12:34 PM CST 08/07/2023 12:34 PM Regional Anesthesia Service Name: Narda Mayen Age: 62 y.o. Sex: female CSN: [id number] Chief complaint: Post operative pain POD # [...] Service may be contacted by zone phone [phone] during daytime resource hours,or by pager [phone] at any time. If there is no answer within 20 minutes, call [phone] for the Anesthesiologist operational risk manager. H MOSS GATHERER * Aviva Humphries MD - 08/07/2023 7:27 [...] injury. Recovering appropriately. Plan: Multimodal pain control, CV RN at this time mIVF, replace lytes as [...] Inpatient for post-op recovery Aviva Humphries MD CLOTH FINISHING RANGE BACK TENDER Oncology Rounding Note Subjective: Patient doing well. [...] tenderness Labs: Recent Labs 08/07/23 0424 08/07/23 0425 WBC 4.6 -- HGB 9.5* -- HCT [...] controlled with current meds 2. Asthma - HOME LENDING OFFICER Advair, albuterol prn 2. HLD - HOME LENDING OFFICER [atorvastatin] Pain: tyl, toradol, dilaudid CV RN Diet: NPO sips w/ meds/ice chips IV fluids: d5LR @ 75cc Lines/drains: NG tube to LIWS; Nieto to stay in place for 5-7 days post-op DVT ppx: SCDs, lovenox (to start 12/ AM) Kirstie Guardado MD Kiss Machine Operator Resident, PGY-2 R2 Pager: [phone] H MOSS GATHERER documented in this encounter H&P Notes * Aviva Humphries MD - 08/06/2023 3:46 PM CST Images from the original note were not included. [facility] GYNECOLOGIC ONCOLOGY OFFICE VISIT 07/22/2023November Eileen Tiarra REFERRING PROVIDER: Dr. Barnard ref. provider found PRIMARY CARE PROVIDER: Shilo Harley MD RETURN PATIENT VISIT Cancer Staging Ovarian cancer Staging form: Ovary, Fallopian Tube, and Primary Peritoneal Carcinoma, AJCC 8th Edition - Clinical stage from 05/13/2023: FIGO Stage IVB - Signed by Aviva Humphries MD on 05/13/2023 Oncology History: 03/2023 presented to [place] ED with abdominal distension; CT showed 11.6cm [...] ordered additional work up and referred to utility teller oncology. CT chest did not show metastatic [...] Component FINAL DIAGNOSIS [place] [address] (OSC [id number]; 04/29/2023 and [id number]; 05/06/2023) [id number] Ascites fluid, cytologic examination: - CK7 positive adenocarcinoma. 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 See comment. at 1237 MICROSCOPIC DESCRIPTION Received are slides labeled [id number] and [id number] and NovemberKarely Mayen. Microscopic examination of the [...] origin. Sections of the lymph node biopsy ([id number]) show cores of lymph node involved by [...] , Rfl: fluticasone propionate (FLONASE) 50 mcg/spray Hansen, Suspension nasal inhaler, Administer 2 Sprays in [...] No obstetric history on file. ; x3 CLOTH FINISHING RANGE BACK TENDER HISTORY: Abnml Pap: denies Menopause: 54ish; no bleeding Social: Social History Tobacco Use Smoking Status Every Day Packs/day: 0.50 Years: 35.00 Additional pack years: 0.00 Total pack years: 17.50 Types: Cigarettes Smokeless Tobacco Never TOBACCO COUNSELING She was counseled to discontinue tobacco/nicotine use. Down to half pack per day. 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 BP 124/68 (BP Location: Left [...] 2w post op Thank you for involving [facility] Gynecologic Oncology in the care [...] MD [facility] Gynecologic Oncology H MOSS GATHERER documented in this encounter Consult Notes * Jennifer Moffett Luc, RD - 08/07/2023 3:21 PM CSTAssociated Order(s): IP CONSULT TO NUTRITION SERVICES Images from the original note were not included. CLINICAL DIETITIAN PROGRESS NOTE [facility] Nutrition Consult: MST of 3 - [facility] clinic PMHx: 64yo who presented to the [...] (08/07/23 014) Weight: 46.7 kg (103 lb) (08/07/23 014) Body mass index is 16.62 kg/m??. Moroni body weight: 59.3 kg (130 lb 11.7 [...] (Last 7 readings): Weight Weight Method 08/07/23 014 46.7 kg (103 lb) Actual 08/06/23 1050 [...] AM No results found for: HGBA1C , [id number] Pert Meds: D5LR, dilaudid Food Allergies: No [...] Temporal: Flattened, slight but increasing depression (moderate) (08/07/231599) Clavicle: Protruding/prominent bone (severe)(08/07/231599) Shoulder (deltoid muscle): Pzcqypoe-fg-eqc joint looks square. Bones prominent. Acromion protrusion quite prominent (severe) (08/07/23 1600) Interosseous: Depressed between thumb/foref juliana (severe) (08/07/23 1600) Thigh (quadriceps muscle): Quads can be significantly reduced (squeezed). Depression on inner thigh, obviously thin (severe) (08/07/23 1600) Knee: Knee bone is square and prominent, no muscle mass (severe) (08/07/23 1600) Calf (gastrocnemius muscle): Definite tissue re duction. Thin, flat, no muscle definition (severe) (08/07/231599) Muscle Wasting Assessment: Severe (12/29/23 1600) Nutrition Needs: 2794-8423 kcal (35-40 kcal/kg) 70 g protein (1.5 [...] minutes Jennifer Wakefield RD LD Contact via [employer] Work cell #: [phone] Office #: [phone] H MOSS GATHERER documented in this encounter OR Notes * [...] Role: * Aviva Humphries MD - Primary Manager Merchandise: Dr. Newby, resident EBL 300 Drains: Nieto, [...] AND SCREEN (Canceled) Aviva Humphries MD 08/06/2023 190 A : Pelvic Washings Washings Pelvis CYTOLOGY, NON GYNE Aviva Humphries MD 08/06/2023 1716 B : Tissue Uterus, Cervix, Ovaries, bilateral, Fallopian tubes, bilateral PATHOLOGY Aviva Humphries MD 08/06/2023 1839 C : OMENTUM Tissue Omentum PATHOLOGY Aviva Humphries MD 08/06/20232004 D : MESENTRY OF SMALL BOWEL NODULE Tissue [place] [address] E : DIAPHRAMATIC TUMOR Tissue Diaphragm PATHOLOGY Aviva Humphries MD 08/06/20232111 F : RIGHT INGUINAL LYMPH NODES Tissue Lymph nodes, right PATHOLOGY Aviva Humphries MD 08/06/20232121 Implants: Implant Name Type Inv. Item Serial No. Floral Design Teacher Lot No. LRB No. Used Action HEMOSTAT RK AH POWDER 3GM [id number] - [id number] Hemostatic HEMOSTAT RK AH POWDER 3GM [id number] BARD DAVOL [id number] N/A 1 Implanted HEMOSTAT RK AH POWDER 3GM [id number] - [id number] Hemostatic HEMOSTAT RK AH POWDER 3GM [id number] BARD DAVOL [id number] N/A 1 Implanted Complications Cystotomy, repaired primariliy [...] placed in the dorsal lithotomy position in Francisco stirrups. A time out was performed verifying correct [...] MD [facility] Gynecologic Oncology H MOSS GATHERER * Brief Op Note - Francesca Newby MD - 08/06/2023 9:52 PM CST Brief Postoperative Note November Tiarra [id number] Pre-operative Diagnosis: Malignant neoplasm of ovary, unspecified [...] Implant Name Type Inv. Item Serial No. Floral Design Teacher Lot No. LRB No. Used Action HEMOSTAT RK AH POWDER 3GM [id number] - [id number] Hemostatic HEMOSTAT RK AH POWDER 3GM [id number] BARD DAVOL [id number] N/A 1 Implanted HEMOSTAT RK AH POWDER 3GM [id number] - [id number] Hemostatic HEMOSTAT RK AH POWDER 3GM [id number] BARD DAVOL [id number] N/A 1 Implanted Estimated Blood Loss: 300 mL Complications: None Francesca Newby MD SHEET METAL SMITH Resident, PGY-3 H MOSS GATHERER documented in this encounter Miscellaneous Notes * Result Encounter Note - Aviva Humphries MD - 08/17/2023 2:08 PM IRISH MOSS GATHERER Please tell Narda that I have reviewed her pathology. The report is as expected and I did remove all visible tumor. I will see her back at her post op visit and would like to get started back on chemotherapy 3-4 weeks after surgery if she is up for it. H MOSS GATHERER * Query - Aviva Humphries MD - 08/17/2023 10:21 AM CST Extension List Title - Metastases Please respond within 48 hours. Thank you! The authenticated query note is part of the Legal Health Record Patient Name: Narda Arellano Tiarra Admission Date: 08/06/2023 [facility] #: [id number] Please continue to document the appropriate diagnosis [...] Willett. For questions of this query contact [email or web address]. H MOSS GATHERER * Query - Aviva Humphries MD - 08/17/2023 8:18 AM CST Please respond within 48 hours. Thank you! The authenticated query note is part of the Legal Health Record Patient Name: November Eileen Tiarra Admission Date: 08/06/2023 [facility] #: [id number] Clinical indicators and/or treatment for this patient include: FINAL DIAGNOSIS -- -- -- STLO LAB Result: A. Uterus with cervix and [...] right inguinal lymph node, with metastatic carcinoma (2/2) This query does not imply that you [...] Willett. For questions of this query contact [email or web address]. H MOSS GATHERER * Query - Aviva Humphries MD - 08/12/2023 8:05 AM CST Please respond within 48 hours. Thank you! The authenticated query note is part of the Legal Health Record Patient Name: Narda Eileen Tiarra Admission Date: 08/06/2023 [facility] #: [id number] Clinical indicators and/or treatment for this patient include: 08/07/23: Field Hand note ASPEN Malnutrition Assessment and Findings Subcutaneous Fat Loss Assessment: Severe fat loss (08/07/23 1600) Muscle Wasting Assessment: Severe (08/07/23 1600) Percentage of Energy: < 75% for > or equal to 1 month (severe-chronic) (08/07/23 1600) Percentage of Weight Loss: (says wt fluctuated, think loss with ascites/paracentesis and now surgery) (08/07/23 1600) Malnutrition Decision Nutrition Diagnosis: Severe protein-calorie malnutrition (08/07/23 1600) BMI BMI (Calculated): (!) 16.63 (08/07/23 0147) Malnutrition Recommendations Malnutrition Recommendations: Oral supplements;See dietitian recommendations in Care Plan note (08/07/23 1600) Note: To answer the following question(s), please [...] me at Christy Segura RN, MSN Clinical Electromechanic-Electronics Design Engineer, Internal Pool [email or web address] References CLINICAL CRITERIA MALNUTRITION TYPES Serum proteins such as albumin and prealbumin are not included as defining characteristics of malnutrition because recent evidence analysis shows that serum levels of these proteins do not change in response to changes in nutrient intake. AND (Academy of Nutrition and Dietetics) Evidence Analysis Library 2008 a,b,c,d ASPEN Criteria Malnutrition in the Context [...] or over hydration. The RD assesses weight filter changer time reported as a percentage of [...] to severe Mild Severe Mild Severe Reduced Research Technician Strength7 Consult standards supplied by the system engineer of the measurement device. N/A Measurably reduced (Not recommended in ICU) N/A Measurably reduced for age/gender N/A Measurably reduced for age/gender H MOSS GATHERER * Query - Aviva Humphries MD - 08/12/2023 7:58 AM CST Please respond within 48 hours. Thank you! The authenticated query note is part of the Legal Health Record Patient Name: November Eileen Tiarra Admission Date: 08/06/2023 [facility] #: [id number] Dear Doctor, Please continue to document the [...] me at Christy Segura RN, MSN Clinical Electromechanic-Electronics Design Engineer, Internal Pool [email or web address] H MOSS GATHERER * Care Plan - Gisell Rahman RN [...] promote wound healing by discharge Outcome: Variance H MOSS GATHERER * Care Plan - Chuy Wills, RN - 08/11/2023 5:28 PM CST Narda Mayen was Oriented x 4 on room air today. Vital signs were stable. Narda Mayen was resting comfortably and eating poorly, Up without assistance, independent. No complaints of pain this shift. Scheduled ibuprofen and acetaminophen given. Using the bathroom, nieto in place to dependent gravity. Nieto removed at 1300 per Slitter Processed Film-onc team orders following cystogram. V oided 3hrs post nieto removal. BM this shift. Daughter to bedside this shift. Blood sugars not monitored. Plan to DC tomorrow morning once orders are received. H MOSS GATHERER * Therapy Evaluation - Ramiro Mayen Physical Therapist - 08/11/2023 2:40 PM CST PT attempted to see pt at this time but pt politely refused due to increased fatigue from having a busy day and working with OT early. PT will continue to monitor pt status and work with as appropriate. [id number] H MOSS GATHERER * Treatment Plan - Jitendra Godinez, RT - 08/11/2023 11:44 AM CST Images from the original note were not included. STL IMS Medication & Flush Protocol-Radiology Procedures - Radiology Procedures [facility] Approved by: [facility] - Medical Executive Committee Approval Date: 04/24/2022 ORDERS ARE ENTERED ???PER PROTOCOL?? Enter the protocol in the patient's electronic health record using smartphrase: .radiologymedicationprotocol Communication Orders: If required to complete procedure, extractions technologist or nurse may place indwelling nieto [...] approved by a Radiologist and documented in theR Progress Notes. When multiple medications are listed [...] Barium Sulfate (Liquid Polibar Plus) 96% (w/w) 911h=250jY mixed with 1500mL of water, radiologist to [...] or more of the following products, administered bySpeech Language Pathologist: Barium tablet (E-Z Disk) 700mg [...] to 2000mL of mixture rectally, one timeonly H MOSS GATHERER * Care Plan - Yumiko Cao, Occupational Therapist - 08/11/2023 9:20 AM IRISH MOSS GATHERER Problem: Physical Mobility, Impaired Goal: Mobility goal: Improve transfer ability by discharge Description: Patient will transfer to/from toilet and to/from tub/shower with modified independence. Outcome: Progressing Problem: Self-Care Deficit Goal: Self care goal: Improve ability to perform self care activities by discharge Description: Patient will require modified independence with grooming/bathing with adaptive equipment. Outcome: Progressing Flowsheets Taken 08/11/2023 09 by Yumiko Cao, Occupational Therapist Tue: X Pain Rating: Rest: 0 Pain Rating: Activity: 0 Present Activity: up in room ambulating Physical Assist/Nonphysical Assist: w/ stand by assist Total Treatment Time (min): 12 OT Treatment Start Time: 919 OT Treatment Stop Time: 931 Taken 08/08/2023 1123 by Omayra Bennett Physical Therapist Location: abdomen region Taken 08/08/2023 1034 by Dipika Cancino, Occupational Therapist Therapy Plan of Care: 2-5x/wk OT Current Discharge Recommendation: Home with supervision OT Recommended DME: No new DME recommended Recommend: Home with supervision (08/08/23 1034) Recommendations were made on today's assessment. Additional recommendations will be based on patient's progress in therapy. Equipment Recommended at discharge: No new DME recommended (08/08/23 1034) S: Patient agrees to therapy; I haven't [...] need to put my hand on something. [facility] AM-PAC Daily Activity How much help [...] care for updates on goals. Zone #: [id number] H MOSS GATHERER * Care Plan - Gisell Rahman RN [...] discharge or maintain baseline function Outcome: Variance H MOSS GATHERER * Care Plan - Maryan Jaeger RN - 08/10/2023 7:48 PM CST Pt A&Ox4. Pt denies nausea. Pt had slight pain managed by scheduled tylenol and ibuprofen. Pt ambulating well with stand by assistance. Pt nieto draining well. Pt tolerating diet. Pt resting in bed, call light in reach. H MOSS GATHERER * Care Plan - Maryan Jaeger RN - 08/09/2023 7:00 PM CST Pt A&Ox4. Pt complained of nausea. Patient has slight pain, using scheduled tylenol. Pt nieto draining well. Pt ambulating to chair and walking in hallways with assistance. Pt states she is having hot flashes, notified no new orders. Pt tachycardiac notified, no new orders at this time. Pt resting in bed, call light in reach H MOSS GATHERER * Care Plan - Maryan Jaeger RN - 08/08/2023 8:14 PM CST Pt A&Ox4. Pt denies nausea. Pt complained of some pain, received PRN dilaudid per MAR. Pt did not like dilaudid, changed to morphine. Pt complained of dry nose, d ordered nasal spray. Pt CV RN discontinued per . New IV fluids ordered per MD. Pt ambulating in halls with therapy. Pt nieto draining well. Pt resting in bed, call light in reach. Pt tolerating clear liquid diet. H MOSS GATHERER * Therapy Evaluation - Omayra Bennett Physical [...] Humphries MD at [facility] HX BLADDER REPAIR N/A 08/06/2023 BLADDER REPAIR performed by Aviva Humphries MD at [facility] HX BUNIONECTOMY Bilateral 2009 HX SECTION 1982,1985,1994 HX PORTACATH PLACEMENT Right 2022 HX URETEROLYSIS Bilateral 08/06/2023 URETEROLYSIS performed by Aviva Humphries MD at [facility] HI BX/EXC LYMPH NODE OPEN SUPERFICIAL Right 08/06/2023 INGUINAL OR FEMORAL LYMPH NODE BIOPSY/EXCISION performed by Aviva Humphries MD at [facility] HI LAPAROSCOPY W/RMVL ADNEXAL STRUCTURES N/A 08/06/2023 SALPINGO-OOPHORECTOMY LAPAROSCOPIC performed by Aviva Humphries MD at [facility] HI OMNTC EPIPLOECTOMY RESCJ OMENTUM SPX N/A 08/06/2023 OMENTECTOMY performed by Aviva Humphries MD at [facility] HI TOTAL ABDOMINAL HYSTERECT W/WO RMVL TUBE OVARY N/A 08/06/2023 HYSTERECTOMY ABDOMINAL TOTAL performed by Aviva Humphries MD at [facility] HI UNLISTED PROCEDURE DIAPHRAGM N/A 08/06/2023 DIAPHRAGM BIOPSY performed by Aviva Humphries MD at [facility] Recommend: Home with supervision (08/08/231122) Recommendations were [...] pain intervention: Appeared content Living Situation/Functional Level HOME LENDING OFFICER: Patient reports she lives alone in a 1 level home with no steps. States her family can provide assist as needed. Reports independence HOME LENDING OFFICER without use of assistive device. Home Equipment: [...] alarm activated, all lines intact, call light inreach, B UE/LEs elevated for comfort and maintained skin integrity, family present, RN aware [facility] AM-PAC Basic Mobility How much help [...] section of the medical chart. Zone #: [id number] On weekends--please call [phone] H MOSS GATHERER * Therapy Evaluation - Dipika Cancino, Occupational [...] pack years Recommend: Home with supervision (08/08/23 103) Recommendations were made on today's assessment. Additional recommendations will be based on patient's progress in therapy. Equipment needed at DC: No new DME recommended (08/08/23 1034) S: Patient agreeable to therapy. Patient reports 2/10 pain in abdominal region. Pain intervention: Unneccessary movement avoided, Repositioned for comfort Response to pain intervention: Appeared content Living Situation/Functional Level HOME LENDING OFFICER: Pt lives alone in 1 story house. HOME LENDING OFFICER pt independent for ADLs, IADLs and functional mobility w/o AD. Pt drives. Pt family lives close and is able to assist as necessary. Home Equipment: Standard toilet, tub/shower, shower chair O: Appearance: 62 y/o female, supine in bed, IV and CV RN intact (CV RN disconnected by RN at end of session) [...] ~100' functional mobility in room<>hallway w/o AD. [facility]-PAC Daily Activity How much help from another [...] section of the medical chart. Zone #: [id number] On weekends--please call [phone] H MOSS GATHERER * Care Plan - Kaylin Mcclendon RN - 08/07/2023 1:46 PM CST Problem: Discharge [...] available to assist if needed? Yes - Name/Relation:Ewa schaefer Comments: Patient lives alone, bu daughterEwa, lives [...] Ewa Dunn Mobile Relation: Daughter Preferred language: Thai Radio Repair Teacher needed? No Insurance coverage verified: Payor: AETNA / Plan: AETNA CHOICE POS II / Product Type: POS / Prescription coverage: yes Preferred Pharmacy verified: [id number] - [place], [place] - [address] Employment Status: employed Has VA Benefits: no PCP verified as: Shilo Soares MD Patient has not had a stay at an acute care hospital in the last 30 days. Recent Falls?: Last Known Fall: No falls Plan for transportation at discharge: daughter Care Management contact information provided. Care Management will continue to follow and assist asneeded. ' Kaylin Mcclendon RN Care Manager [phone] cell [phone] office H MOSS GATHERER * Care Plan - Shilo Ospina RN - 08/07/2023 10:40 AM CST Patient recovering from surgery. CV RN as ordered and no reported problems. NG intact and to low-intermittent suction. Nieto patent and draining clear yellow urine to gravity. Staff with frequent rounding to monitor for changes. Blood sugars taken Q4H as ordered after IV fluids adjusted by previous shift. H MOSS GATHERER * Care Plan - Gisell Rahman RN - 08/07/2023 3:48 AM CST Report received from Lucita in PACU. Pt arrived on the Oncology floor at approximately 0027. Pt was A/O x4, stated she was in 3/10 pain, breathing was even and unlabored on 2L NC. Assessment completed; meds given per OCT. IVF started. CV RN pump set up. Pt educated on using [...] promote wound healing by discharge Outcome: Variance H MOSS GATHERER * Care Plan - Lucita Barboza RN - 08/06/2023 11:54 PM CST Potential for pain related to surgical/procedural intervention Interventions: Assess level of pain/comfort utilizing verbal/nonverbal pain scales; assess culturalor christianity indicators attached to pain; administer pain medications [...] no bleeding or hematoma from surgical site H MOSS GATHERER * Care Plan - Bettina Vann RN [...] perioperative experience Outcome Met: All concerns addressed H MOSS GATHERER documented in this encounter Plan of Treatment Upcoming Encounters Date Type Department Care Team (Late st Contact Info) Description 08/04/2024 1:00 PM IRISH MOSS GATHERER Appointment [facility] Infusion Center 2nd Fl [address] [place] [phone] [facility] [address] [facility] [address] [place] [phone] Infusion Chair 5, 2nd Floor Hall 08/25/2024 1:00 PM IRISH MOSS GATHERER Office Visit [facility] Gynecologic Oncology Hall [address] [place] [address] Edilia Pettit NP [address] [place] [address] 08/25/2024 1:30 PM IRISH MOSS GATHERER Appointment [facility] Infusion Center 2nd Fl [address] [place] [address] Aviva Humphries MD [address] [place] [address] Infusion Chair 1, 2nd Floor Rafael 09/01/2024 10:45 AM IRISH MOSS GATHERER Appointment [facility] [address] [place] [phone] Edilia Pettit, AIRCRAFT SYSTEMS TECHNICIAN [address] [place] [address] documented as of this encounter Procedures Procedure Name Priority Date/Time Associated Diagnosis Comments BASIC METABOLIC PANEL Stat 08/12/2023 1:50 PM IRISH MOSS GATHERER US RENAL AND BLADDER Pending Discharge 08/12/2023 10:46 AM IRISH MOSS GATHERER SODIUM, RANDOM URINE Routine 08/12/2023 9:15 AM IRISH MOSS GATHERER CREATININE, RANDOM URINE Routine 08/12/2023 9:15 AM IRISH MOSS GATHERER DIFFERENTIAL, MANUAL Routine 08/12/2023 5:59 AM IRISH MOSS GATHERER CBC WITH DIFFERENTIAL Routine 08/12/2023 5:59 AM IRISH MOSS GATHERER BASIC METABOLIC PANEL Routine 08/12/2023 5:59 AM IRISH MOSS GATHERER XR CYSTOGRAM Stat 08/11/2023 11:42 AM IRISH MOSS GATHERER DIFFERENTIAL, MANUAL Routine 08/11/2023 8:22 AM IRISH MOSS GATHERER CBC WITH DIFFERENTIAL Routine 08/11/2023 8:22 AM IRISH MOSS GATHERER BASIC METABOLIC PANEL Routine 08/11/2023 8:22 AM IRISH MOSS GATHERER DIFFERENTIAL, MANUAL Routine 08/10/2023 11:14 AM IRISH MOSS GATHERER CBC WITH DIFFERENTIAL Routine 08/10/2023 11:14 AM IRISH MOSS GATHERER BASIC METABOLIC PANEL Routine 08/10/2023 11:14 AM IRISH MOSS GATHERER DIFFERENTIAL, MANUAL Timed Study 08/09/2023 6:59 AM IRISH MOSS GATHERER CBC WITH DIFFERENTIAL Timed Study 08/09/2023 6:59 AM IRISH MOSS GATHERER COMPREHENSIVE METABOLIC PANEL Routine 08/09/2023 6:59 AM IRISH MOSS GATHERER OT EVAL AND TREAT Routine 08/08/2023 10:29 AM IRISH MOSS GATHERER PT EVAL AND TREAT Routine 08/08/2023 10:29 AM IRISH MOSS GATHERER POC GLUCOSE Routine 08/08/2023 4:19 AM IRISH MOSS GATHERER POC GLUCOSE Routine 08/08/2023 12:09 AM IRISH MOSS GATHERER POC GLUCOSE Routine 08/07/2023 8:18 PM IRISH MOSS GATHERER POC GLUCOSE Routine 08/07/2023 4:54 PM IRISH MOSS GATHERER POC GLUCOSE Routine 08/07/2023 12:36 PM IRISH MOSS GATHERER POC GLUCOSE Routine 08/07/2023 7:46 AM IRISH MOSS GATHERER BASIC METABOLIC PANEL Timed Study 08/07/2023 4:25 AM IRISH MOSS GATHERER DIFFERENTIAL, MANUAL Timed Study 08/07/2023 4:24 AM IRISH MOSS GATHERER CBC WITH DIFFERENTIAL Timed Study 08/07/2023 4:24 AM IRISH MOSS GATHERER POC GLUCOSE Routine 08/07/2023 4:14 AM IRISH MOSS GATHERER PATHOLOGY Pathology 08/06/2023 6:39 PM IRISH MOSS GATHERER Malignant neoplasm of ovary, unspecified laterality Drug-induced androgenic alopecia CYTOLOGY, NON GYNE Pathology 08/06/2023 5: 16 PM IRISH MOSS GATHERER Malignant neoplasm of ovary, unspecified laterality Drug-induced androgenic alopecia INGUINAL OR FEMORAL LYMPH NODE BIOPSY/EXCISION 08/06/2023 3:35 PM IRISH MOSS GATHERER Malignant neoplasm of ovary, unspecified laterality Drug-induced androgenic alopecia HI UNLISTED PROCEDURE DIAPHRAGM 08/06/2023 3:35 PM IRISH MOSS GATHERER Malignant neoplasm of ovary, unspecified laterality Drug-induced androgenic alopecia HI OMNTC EPIPLOECTOMY RESCJ OMENTUM SPX 08/06/2023 3:35 PM IRISH MOSS GATHERER Malignant neoplasm of ovary, unspecified laterality Drug-induced androgenic alopecia CYSTOURETHROSCOPY 08/06/2023 3:3 5 PM IRISH MOSS GATHERER Malignant neoplasm of ovary, unspecified laterality Drug-induced androgenic alopecia BLADDER REPAIR 08/06/2023 3:35 PM IRISH MOSS GATHERER Malignant neoplasm of ovary, unspecified laterality Drug-induced androgenic alopecia URETEROLYSIS 08/06/2023 3:35 PM IRISH MOSS GATHERER Malignant neoplasm of ovary, unspecified laterality Drug-induced androgenic alopecia HI LAPAROSCOPY W/RMVL ADNEXAL STRUCTURES 08/06/2023 3:35 PM IRISH MOSS GATHERER Malignant neoplasm of ovary, unspecified laterality Drug-induced androgenic alopecia HI TOTAL ABDOMINAL HYSTERECT W/WO RMVL TUBE OVARY 08/06/2023 3:35 PM IRISH MOSS GATHERER Malignant neoplasm of ovary, unspecified laterality Drug-induced androgenic alopecia IR INJECTION Routine 08/06/2023 1:48 PM IRISH MOSS GATHERER VERIFICATION BLOOD GROUP Stat 08/06/2023 1:00 PM IRISH MOSS GATHERER Encounter for blood typing POC GLUCOSE Routine 08/06/2023 11:03 AM IRISH MOSS GATHERER documented in this encounter Results * (ABNORMAL) BASIC METABOLIC PANEL (08/12/2023 1:50 PM IRISH MOSS GATHERER) SODIUM 139 136 - 145 mmol/L 08/12/2023 2:43 PM IRISH MOSS GATHERER [facility] POTASSIUM 3.6 3.5 - 5.0 mmol/L 08/12/2023 2:43 PM IRISH MOSS GATHERER [facility] CHLORIDE 101 98 - 107 mmol/L 08/12/2023 2:43 PM IRISH MOSS GATHERER [facility] CO2 27 22 - 29 mmol/L 08/12/2023 2:43 PM IRISH MOSS GATHERER [facility] CALCIUM 9.2 8.6 - 10.2 mg/dL 08/12/2023 2:43 PM IRISH MOSS GATHERER [facility] BUN 18 8 - 23 mg/dL 08/12/2023 2:43 PM [facility] CREATININE 1.22(H) 0.51 - 0.95 mg/dL 08/12/2023 2:43 PM [facility] GLUCOSE 133(H) 74 - 99 mg/dL 08/12/2023 2:43 PM [facility] GFR 50(L) >=60 mL/min/1.7 3 sq meter 08/12/2023 2:43 PM [facility] Comment:eGFR calculated with 2020 CKD-EPI equation. Vegetarian diet, extremely high or low muscle mass, and may affect results. Cystatin C with Glomerular Filtration Rate is a suitable alternative for these patients. ANION GAP 11 8 - 16 mmol/L 08/12/2023 2:43 PM [facility] Blood Venipuncture / Unknown 08/12/2023 1:50 PM IRISH MOSS GATHERER 08/12/2023 1:59 PM IRISH MOSS GATHERER Aviva Humphries MD CHEMISTRY ORDERABLES [facility]# [id number] [address] [facility] [place] [address] * US RENAL AND BLADDER (08/12/2023 10:46 AM IRISH MOSS GATHERER) Anatomical Region Laterality Modality Abdomen Ultrasound 08/12/2023 10:4 7 AM IRISH MOSS GATHERER Impressions 08/12/2023 10:58 AM IRISH MOSS GATHERER IMPRESSION: 1. Normal renal ultrasound without evidence of hydronephrosis. DICTATION LOCATION: Location 1 - [facility] Narrative 08/12/2023 10:58 AM IRISH MOSS GATHERER EXAMINATION: Complete retroperitoneal ultrasound HISTORY: Renal Insufficiency [...] without evidence of hydronephrosis. DICTATION LOCATION: Location 1 [facility] Aviva Humphries MD US ORDERABLES * CREATININE, RANDOM URINE (08/12/2023 9:15 AM IRISH MOSS GATHERER) CREATININE, URINE 115.3 29.0 - 226.0 mg/dL 08/12/2023 10:04 AM IRISH MOSS GATHERER [facility] Comment:Reference Range vari es with fluid intake and diet. Urine URINE SPECIMEN OBTAINED BY CLEAN CATCH PROCEDURE / Unknown Collection / Unknown 08/12/2023 9:15 AM IRISH MOSS GATHERER 08/12/2023 9:26 AM IRISH MOSS GATHERER Aviva Humphries MD URINE ORDERABLES Performing Organization Address City/[facility]/ZIP Co de Phone Number [facility] CLIA# [id number] [address] [place] [address] * SODIUM, RANDOM URINE (08/12/2023 9:15 AM IRISH MOSS GATHERER) SODIUM, URINE 69 mmol/L 08/12/2023 10:09 AM IRISH MOSS GATHERER [facility] [employer] [facility] Comment:Reference range not established Urine URINE SPECIMEN OBTAINED BY CLEAN CATCH PROCEDURE / Unknown Collection / Unknown 08/12/2023 9:15 AM IRISH MOSS GATHERER 08/12/2023 9:26 AM IRISH MOSS GATHERER Aviva Humphries MD URINE ORDERABLES Performing Organization Address City/[facility]/ZIP Co de Phone Number [facility] CLIA# [id number] [address] [place] [address] * MANUAL DIFFERENTIAL (08/12/2023 5:59 AM IRISH MOSS GATHERER) PLATELET EST. Consistent w Count 08/12/2023 7:29 AM [facility] ANISOCYTOSIS 2+ /hpf 08/12/2023 7:29 AM [facility] MACROCYTES 1+ /hpf 08/12/2023 7:29 AM [facility] - [facility] POLYCHROMASIA 1+ /hpf 08/12/2023 7:29 AM [facility] Blood Venipuncture / Unknown 08/12/2023 5:59 AM IRISH MOSS GATHERER 08/12/2023 6:26 AM IRISH MOSS GATHERER Aviva Humphries MD HEMATOLOGY ORDERABLE S COM [facility] [employer] SERVICES [facility]# [id number] [address] [facility] [place] [address] * (ABNORMAL) BASIC METABOLIC PANEL (08/12/2023 5:59 AM IRISH MOSS GATHERER) SODIUM 140 136 - 145 mmol/L 08/12/2023 7:00 AM [facility]ORY SERVICES - . [facility] POTASSIUM 3.9 3.5 - 5.0 mmol/L 08/12/2023 7:00 AM [facility] [employer] [facility] - . [place] CHLORIDE 104 98 - 107 mmol/L 08/12/2023 7:00 AM [facility] [employer] LABORATORY SERVICES - [facility] CO2 27 22 - 29 mmol/L 08/12/2023 7:00 AM [facility] [employer] LABORATORY SERVICES - [facility] CALCIUM 9.4 8.6 - 10.2 mg/dL 08/12/2023 7:00 AM [facility] [employer] LABORATORY SERVICES - [facility] BUN 20 8 - 23 mg/dL 08/12/2023 7:00 AM [facility] [employer] LABORATORY SERVICES - . [facility] CREATININE 1.19(H) 0.51 - 0.95 mg/dL 08/12/2023 7:00 AM [facility] [employer] LABORATORY SERVICES - . [facility] GLUCOSE 101(H) 74 - 99 mg/dL 08/12/2023 7:00 AM [facility] [employer] [facility] GFR 51(L) >=60 mL/min/1.7 3 sq meter 08/12/2023 7:00 AM [facility] [employer] [facility] Comment:eGFR calculated with 2020 CKD-EPI equation. Vegetarian diet, extremely high or low muscle mass, and may affect results. Cystatin C with Glomerular Filtration Rate is a suitable alternative for these patients. ANION GAP 9 8 - 16 mmol/L 08/12/2023 7:00 AM [facility] [employer] [facility] Blood Venipuncture / Unknown 08/12/2023 5:59 AM [employer] 08/12/2023 6:26 AM [employer] Aviva Humphries MD CHEMISTRY ORDERABLES [facility] [employer] [facility]# [id number] [facility] [place] [address] * (ABNORMAL) CBC WITH DIFFERENTIAL (08/12/2023 5:59 AM [employer]) WBC 4.5 4.0 - 9.8 K/uL 08/12/2023 6:54 AM [facility] [employer] [facility] RBC 2.91(L) 3.90 - 4.90 M/uL 08/12/2023 6:54 AM [facility] [employer] [facility] HEMOGLOBIN 9.1(L) 11.8 - 14.8 g/dL 08/12/2023 6:54 AM [facility] [employer] [facility] HEMATOCRIT 27.5(L) 35.5 - 44.0 % 08/12/2023 6:54 AM [facility] [employer] [facility] MCV 94.5 82.0 - 99.0 fL 08/12/2023 6:54 AM [facility] [employer] [facility] MCH 31.3 27.2 - 32.6 pg 08/12/2023 6:54 AM [facility] [employer] [facility] MCHC 33.1 31.5 - 35.5 g/dL 08/12/2023 6:54 AM [facility] [employer] [facility] RDW 08/12/2023 6:54 AM [employer] LABORATORY SERVICES - [facility] Comment:Parameter not availa ble PLATELETS 351(H) 140 - 350 K/uL 08/12/2023 6:54 AM [employer] LABORATORY SERVICES - . [facility] MPV 9.7 9.3 - 12.4 fL 08/12/2023 6:54 AM [employer] [employer] LABORATORY SERVICES - . [facility] NEUTROPHILS 46 % 08/12/2023 6:54 AM [employer] LABORATORY SERVICES - . [facility] LYMPHOCYTES 38 % 08/12/2023 6:54 AM [employer] [employer] LABORATORY SERVICES - . [facility] MONOCYTES 13 % 08/12/2023 6:54 AM [employer] LABORATORY SERVICES - . [facility] EOSINOPHILS 3 % 08/12/2023 6:54 AM [employer] LABORATORY SERVICES - . [facility] BASOPHILS 0 % 08/12/2023 6:54 AM [employer] LABORATORY SERVICES - . [facility] IMMATURE GRANULOCYTES 0 % 08/12/2023 6:54 AM [employer] LABORATORY SERVICES - [facility] NEUTROPHIL ABSOLUTE 2.06 1.90 - 7.00 K/uL 08/12/2023 6:54 AM [facility] [employer] LABORATORY SERVICES - . [facility] LYMPHOCYTE ABSOLUTE 1.71 0.70 - 4.50 K/uL 08/12/2023 6:54 AM [employer] LABORATORY SERVICES - . [facility] MONOCYTE ABSOLUTE 0.57 0.10 - 1.30 K/uL 08/12/2023 6:54 AM [employer] LABORATORY SERVICES - . [facility] EOSINOPHIL ABSOLUTE 0.12 0.00 - 0.70 K/uL 08/12/2023 6:54 AM [employer] LABORATORY SERVICES - . [facility] BASOPHILS ABSOLUTE 0.02 0.00 - 0.20 K/uL 08/12/2023 6:54 AM [employer] LABORATORY SERVICES - . [facility] IMMATURE GRANULOCYTES ABSOLUTE 0.02 0.00 - 0.03 K/uL 08/12/2023 6:54 AM [employer] SERVICES - [facility] Blood Venipuncture / Unknown 08/12/2023 5:59 AM [employer] 08/12/2023 6:26 AM [employer] Aviva Humphries MD HEMATOLOGY ORDERABLE S [facility] YURI# [id number] [address] [place] [address] * XR CYSTOGRAM (08/11/2023 11:42 AM [employer]) Anatomical Region Laterality Modality Pelvis Computed Radiogr aphy 08/11/2023 12:0 8 PM [employer] [employer] Addenda Addendum by Oneida Jennings MD on 08/11/2023 1:17 PM [employer] XR CYSTOGRAM DATE: ??08/11/2023 11:42 AM HISTORY: Status post intraoperative cystotomy repair. Rule out leak Preop testing; Encounter for blood typing; Malignant neoplasm of ovary, unspecified laterality; Drug-induced androgenic alopecia ?? COMPARISON: None.. REFERENCE AIR KERMA DOSE: ??14.02 mGy. NUMBER OF FLUOROSCOPIC IMAGES: 5 FINDINGS: An initial supervisor glycerin image of the pelvis was performed. Some [...] TIME IN MINUTES: ??0.2 minutes. DICTATION LOCATION: Location 1 - [facility] Impressions 08/11/2023 12:59 PM [employer] IMPRESSION: Contour deformity along the dome of [...] TIME IN MINUTES: ??0.2 minutes. DICTATION LOCATION: Location 1 [facility] 08/11/2023 12:59 PM [employer] XR CYSTOGRAM DATE: ??08/11/2023 11:42 AM HISTORY: Status post intraoperative cystotomy repair. Rule out leak Preop testing; Encounter for blood typing; Malignant neoplasm of ovary, unspecified laterality; Drug-induced androgenic alopecia ?? COMPARISON: None.. REFERENCE AIR KERMA DOSE: ??14.02 mGy. NUMBER OF FLUOROSCOPIC IMAGES: 5 FINDINGS: An initial supervisor glycerin image of the pelvis was performed. Surgical [...] OF FLUOROSCOPIC IMAGES: 5 FINDINGS: An initial supervisor glycerin image of the pelvis was performed. Surgical [...] 0.2 minutes. DICTATION LOCATION: Location 1 - [facility] Aviva Humphries MD DIAGNOSTIC IMAGING O RDERABLES * MANUAL DIFFERENTIAL (08/11/2023 8:22 AM [employer]) [facility] PLATELET EST. Consistent w Count 08/11/2023 10:10 AM [employer] [facility] LABORATORY [facility] ANISOCYTOSIS 2+ /hpf 08/11/2023 10:10 AM [employer] [facility] LABORATORY [facility] Blood Venipuncture / Unknown 08/11/2023 8:22 AM [employer] 08/11/2023 9:21 AM [employer] Aviva Humphries MD HEMATOLOGY ORDERABLE S COM [facility] CLIA# [id number] [address] [place] [address] * (ABNORMAL) BASIC METABOLIC PANEL (08/11/2023 8:22 AM [employer]) [facility] SODIUM 140 136 - 145 mmol/L 08/11/2023 9:53 AM [facility] LABORATORY [facility] - . [facility] POTASSIUM 3.5 3.5 - 5.0 mmol/L 08/11/2023 9:53 AM [facility] LABORATORY [facility] - [facility] CHLORIDE 102 98 - 107 mmol/L 08/11/2023 9:53 AM [facility] LABORATORY [facility] - [facility] CO2 27 22 - 29 mmol/L 08/11/2023 9:53 AM [facility] LABORATORY [facility] - . [facility] CALCIUM 9.3 8.6 - 10.2 mg/dL 08/11/2023 9:53 AM [facility] [employer] [facility] - [facility] BUN 17 8 - 23 mg/dL 08/11/2023 9:53 AM [facility] - . [facility] CREATININE 1.01(H) 0.51 - 0.95 mg/dL 08/11/2023 9:53 AM [facility] [employer] [facility] - . [facility] GLUCOSE 107(H) 74 - 99 mg/dL 08/11/2023 9:53 AM [facility] [employer] [facility]. [facility] GFR >60 >=60 mL/min/1.7 3 sq meter 08/11/2023 9:53 AM [facility] LABORATORY [facility] - [facility] Comment:eGFR calculated with 2020 CKD-EPI equation. Vegetarian diet, extremely high or low muscle mass, and may affect results. Cystatin C with Glomerular Filtration Rate is a suitable alternative for these patients. ANION GAP 11 8 - 16 mmol/L 08/11/2023 9:53 AM [facility] LABORATORY [facility] Blood Venipuncture / Unknown 08/11/2023 8:22 AM [employer] 08/11/2023 9:21 AM [employer] Aviva Humphries MD CHEMISTRY ORDERABLES [facility] [employer] [facility]# [id number] 5 [facility] [address] [address] * (ABNORMAL) CBC WITH DIFFERENTIAL (08/11/2023 8:22 AM [employer]) WBC 4.5 4.0 - 9.8 K/uL 08/11/2023 10:06 AM [employer] LABORATORY SERVICES - [facility] RBC 2.92(L) 3.90 - 4.90 M/uL 08/11/2023 10:06 AM [employer] LABORATORY SERVICES - [facility] HEMOGLOBIN 9.1(L) 11.8 - 14.8 g/dL 08/11/2023 10:06 AM [employer] LABORATORY SERVICES - [facility] HEMATOCRIT 27.8(L) 35.5 - 44.0 % 08/11/2023 10:06 AM [employer] LABORATORY SERVICES - [facility] MCV 95.2 82.0 - 99.0 fL 08/11/2023 10:06 AM [employer] LABORATORY SERVICES - [facility] MCH 31.2 27.2 - 32.6 pg 08/11/2023 10:06 AM [employer] LABORATORY SERVICES - [facility] MCHC 32.7 31.5 - 35.5 g/dL 08/11/2023 10:06 AM [employer] LABORATORY SERVICES - [facility] RDW 08/11/2023 10:06 AM [employer] LABORATORY SERVICES - [facility] Comment:Parameter not availa ble PLATELETS 359(H) 140 - 350 K/uL 08/11/2023 10:06 AM [employer] LABORATORY SERVICES - [facility] MPV 9.9 9.3 - 12.4 fL 08/11/2023 10:06 AM [employer] LABORATORY SERVICES - [facility] NEUTROPHILS 59 % 08/11/2023 10:06 AM [employer] LABORATORY SERVICES - [facility] LYMPHOCYTES 27 % 08/11/2023 10:06 AM [employer] LABORATORY SERVICES - [facility] MONOCYTES 11 % 08/11/2023 10:06 AM [employer] LABORATORY SERVICES - . [facility] EOSINOPHILS 2 % 08/11/2023 10:06 AM [employer] LABORATORY SERVICES - . [facility] BASOPHILS 0 % 08/11/2023 10:06 AM [employer] LABORATORY SERVICES - [facility] IMMATURE GRANULOCYTES 0 % 08/11/2023 10:06 AM [employer] LABORATORY SERVICES - [facility] NEUTROPHIL ABSOLUTE 2.67 1.90 - 7.00 K/uL 08/11/2023 10:06 AM [employer] LABORATORY SERVICES - [facility] LYMPHOCYTE ABSOLUTE 1.22 0.70 - 4.50 K/uL 08/11/2023 10:06 AM [employer] LABORATORY SERVICES - [facility] MONOCYTE ABSOLUTE 0.50 0.10 - 1.30 K/uL 08/11/2023 10:06 AM [employer] LABORATORY SERVICES - [facility] EOSINOPHIL ABSOLUTE 0.09 0.00 - 0.70 K/uL 08/11/2023 10:06 AM [employer] [facility] LABORATORY SERVICES - [facility] BASOPHILS ABSOLUTE 0.02 0.00 - 0.20 K/uL 08/11/2023 10:06 AM [employer] LABORATORY SERVICES - [facility] IMMATURE GRANULOCYTES ABSOLUTE 0.01 0.00 - 0.03 K/uL 08/11/2023 10:06 AM [employer] LABORATORY SERVICES - [facility] Blood Venipuncture / Unknown 08/11/2023 8:22 AM [employer] 08/11/2023 9:21 AM [employer] Aviva Humphries MD HEMATOLOGY ORDERABLE S [facility] LABORATORY SERVICES - [facility] CLIA# [id number] [address] [place] [address] * MANUAL DIFFERENTIAL (08/10/2023 11:14 AM [employer]) PLATELET EST. Consistent w Count 08/10/2023 12:12 PM [employer] [facility] LABORATORY SERVICES - [facility] ANISOCYTOSIS 1+ /hpf 08/10/2023 12:12 PM [employer] LABORATORY SERVICES - [facility] POIKILOCYTES 1+ /hpf 08/10/2023 12:12 PM [facility] [employer] LABORATORY SERVICES - [facility] POLYCHROMASIA 1+ /hpf 08/10/2023 12:12 PM [employer] LABORATORY SERVICES - [facility] OVALOCYTES 1+ /hpf 08/10/2023 12:12 PM [employer] LABORATORY SERVICES - [facility] Blood Venipuncture / Unknown 08/10/2023 11:14 AM [employer] 08/10/2023 11:21 AM [employer] Aviva Humphries MD HEMATOLOGY ORDERABLE S COM [facility] LABORATORY SERVICES - [facility] CLIA# [id number] [address] [place] [address] * (ABNORMAL) BASIC METABOLIC PANEL (08/10/2023 11:14 AM [employer]) SODIUM 137 136 - 145 mmol/L 08/10/2023 11:57 AM [facility] [employer] LABORATORY SERVICES - . [facility] POTASSIUM 3.5 3.5 - 5.0 mmol/L 08/10/2023 11:57 AM [facility] [employer] LABORATORY SERVICES - . [facility] CHLORIDE 101 98 - 107 mmol/L 08/10/2023 11:57 AM [facility] CO2 28 22 - 29 mmol/L 08/10/2023 11:57 AM [facility] [employer] LABORATORY SERVICES - . [facility] CALCIUM 9.2 8.6 - 10.2 mg/dL 08/10/2023 11:57 AM [facility] - [facility] [place] BUN 13 8 - 23 mg/dL 08/10/2023 11:57 AM [facility] - . [facility] CREATININE 0.74 0.51 - 0.95 mg/dL 08/10/2023 11:57 AM [facility] - . [facility] GLUCOSE 129(H) 74 - 99 mg/dL 08/10/2023 11:57 AM [facility] [employer] LABORATORY SERVICES - . [facility] GFR >60 >=60 mL/min/1.7 3 sq meter 08/10/2023 11:57 AM [facility] - [facility] Comment:eGFR calculated with 2020 CKD-EPI equation. Vegetarian diet, extremely high or low muscle mass, and may affect results. Cystatin C with Glomerular Filtration Rate is a suitable alternative for these patients. ANION GAP 8 8 - 16 mmol/L 08/10/2023 11:57 AM [facility] [employer] LABORATORY SERVICES - [facility] Blood Venipuncture / Unknown 08/10/2023 11:14 AM [employer] 08/10/2023 11:21 AM [employer] Aviva Humphries MD CHEMISTRY ORDERABLES [facility] LABORATORY SERVICES - [facility] CLIA# [id number] [address] [place] [address] * (ABNORMAL) CBC WITH DIFFERENTIAL (08/10/2023 11:14 AM [employer]) [facility] WBC 5.1 4.0 - 9.8 K/uL 08/10/2023 12:01 PM [employer] LABORATORY SERVICES - [facility] RBC 3.00(L) 3.90 - 4.90 M/uL 08/10/2023 12:01 PM [employer] LABORATORY SERVICES [facility] HEMOGLOBIN 9.4(L) 11.8 - 14.8 g/dL 08/10/2023 12:01 PM [employer] LABORATORY SERVICES [facility] HEMATOCRIT 29.0(L) 35.5 - 44.0 % 08/10/2023 12:01 PM [employer] LABORATORY SERVICES [facility] MCV 96.7 82.0 - 99.0 fL 08/10/2023 12:01 PM [employer] LABORATORY SERVICES [facility] MCH 31.3 27.2 - 32.6 pg 08/10/2023 12:01 PM [employer] LABORATORY SERVICES [facility] MCHC 32.4 31.5 - 35.5 g/dL 08/10/2023 12:01 PM [employer] LABORATORY SERVICES [facility] RDW 08/10/2023 12:01 PM [employer] LABORATORY SERVICES [facility] Comment:Parameter not availa ble PLATELETS 360(H) 140 - 350 K/uL 08/10/2023 12:01 PM [employer] LABORATORY SERVICES [facility] MPV 9.7 9.3 - 12.4 fL 08/10/2023 12:01 PM [employer] LABORATORY SERVICES [facility] NEUTROPHILS 65 % 08/10/2023 12:01 PM [employer] LABORATORY SERVICES [facility] LYMPHOCYTES 25 % 08/10/2023 12:01 PM [employer] LABORATORY SERVICES [facility] MONOCYTES 8 % 08/10/2023 12:01 PM [employer] LABORATORY SERVICES [facility] EOSINOPHILS 1 % 08/10/2023 12:01 PM [employer] LABORATORY SERVICES [facility] BASOPHILS 0 % 08/10/2023 12:01 PM [employer] LABORATORY SERVICES [facility] IMMATURE GRANULOCYTES 0 % 08/10/2023 12:01 PM [employer] LABORATORY SERVICES - [facility] NEUTROPHIL ABSOLUTE 3.29 1.90 - 7.00 K/uL 08/10/2023 12:01 PM [facility] LABORATORY SERVICES - [facility] LYMPHOCYTE ABSOLUTE 1.26 0.70 - 4.50 K/uL 08/10/2023 12:01 PM [facility] LABORATORY SERVICES - [facility] MONOCYTE ABSOLUTE 0.41 0.10 - 1.30 K/uL 08/10/2023 12:01 PM [facility] LABORATORY SERVICES - [facility] EOSINOPHIL ABSOLUTE 0.06 0.00 - 0.70 K/uL 08/10/2023 12:01 PM [facility] LABORATORY SERVICES - [facility] BASOPHILS ABSOLUTE 0.02 0.00 - 0.20 K/uL 08/10/2023 12:01 PM [facility] [employer] LABORATORY SERVICES - [facility] IMMATURE GRANULOCYTES ABSOLUTE 0.01 0.00 - 0.03 K/uL 08/10/2023 12:01 PM [facility] [employer] LABORATORY SERVICES - . [facility] Blood Venipuncture / Unknown 08/10/2023 11:14 AM [employer] 08/10/2023 11:21 AM [employer] Aviva Humphries MD HEMATOLOGY ORDERABLE S [facility] LABORATORY SERVICES [facility] CLIA# [id number] [address] [place] [address] * MANUAL DIFFERENTIAL (08/09/2023 6:59 AM [employer]) PLATELET EST. Consistent w Count 08/09/2023 9:11 AM [employer] [facility] LABORATORY SERVICES [facility] ANISOCYTOSIS 2+ /hpf 08/09/2023 9:11 AM [employer] LABORATORY SERVICES - [facility] Blood Venipuncture / Unknown 08/09/2023 6:59 AM [employer] 08/09/2023 7:27 AM [employer] Aviva Humphries MD HEMATOLOGY ORDERABLE S COM [facility] LABORATORY [facility] CLIA# [id number] [address] [place] [address] * (ABNORMAL) COMPREHENSIVE METABOLIC PANEL (08/09/2023 6:59 AM [employer]) [facility] SODIUM 137 136 - 145 mmol/L 08/09/2023 8:06 AM [facility] [employer] LABORATORY SERVICES - . [facility] POTASSIUM 3.8 3.5 - 5.0 mmol/L 08/09/2023 8:06 AM [facility] [employer] LABORATORY SERVICES - [facility] CHLORIDE 98 98 - 107 mmol/L 08/09/2023 8:06 AM [employer] LABORATORY SERVICES - [facility] CO2 27 22 - 29 mmol/L 08/09/2023 8:06 AM [employer] LABORATORY SERVICES - . [facility] CALCIUM 9.8 8.6 - 10.2 mg/dL 08/09/2023 8:06 AM [facility] [employer] LABORATORY SERVICES [facility]. [facility] BUN 7(L) 8 - 23 mg/dL 08/09/2023 8:06 AM [facility] [employer] LABORATORY SERVICES [facility]. [facility] CREATININE 0.66 0.51 - 0.95 mg/dL 08/09/2023 8:06 AM [employer] LABORATORY SERVICES [facility]. [facility] GLUCOSE 89 74 - 99 mg/dL 08/09/2023 8:06 AM [facility] [employer] LABORATORY SERVICES [facility]. [facility] TOTAL PROTEIN 7.2 6.7 - 8.6 g/dL 08/09/2023 8:06 AM [facility] [employer] LABORATORY [facility]. [facility] ALBUMIN 3.8 3.5 - 5.2 g/dL 08/09/2023 8:06 AM [employer] LABORATORY SERVICES [facility]. [facility] BILIRUBIN TOTAL 0.7 0.2 - 1.1 mg/dL 08/09/2023 8:06 AM [employer] LABORATORY SERVICES [facility]. [facility] ALKALINE PHOSPHATASE 65 35 - 104 U/L 08/09/2023 8:06 AM [facility] LABORATORY SERVICES [facility]. [facility] AST 22 <33 U/L 08/09/2023 8:06 AM [employer] LABORATORY SERVICES [facility]. [facility] ALT 35(H) <34 U/L 08/09/2023 8:06 AM [employer] LABORATORY SERVICES [facility]. [facility] GFR >60 >=60 mL/min/1.7 3 sq meter 08/09/2023 8:06 AM [employer] LABORATORY SERVICES - . [facility] Comment:eGFR calculated with 2020 CKD-EPI equation. Vegetarian diet, extremely high or low muscle mass, and may affect results. Cystatin C with Glomerular Filtration Rate is a suitable alternative for these patients. ANION GAP 12 8 - 16 mmol/L 08/09/2023 8:06 AM [facility] [employer] [facility] Blood Venipuncture / Unknown 08/09/2023 6:59 AM [employer] 08/09/2023 7:27 AM [facility] - 08/09/2023 8:06 AM [facility] Samples containing indocyanine green cause interferences on Total and/or Direct Bilirubin and must not be measured. Aviva Humphries MD CHEMISTRY ORDERABLES [facility] [employer] [facility]# [id number] [address] [place] [address] * (ABNORMAL) CBC WITH DIFFERENTIAL (08/09/2023 6:59 AM [employer]) WBC 6.7 4.0 - 9.8 K/uL 08/09/2023 7:52 AM [facility] [employer] [facility] RBC 3.09(L) 3.90 - 4.90 M/uL 08/09/2023 7:52 AM [facility] [employer] [facility] HEMOGLOBIN 9.6(L) 11.8 - 14.8 g/dL 08/09/2023 7:52 AM [facility] [employer] [facility] HEMATOCRIT 30.0(L) 35.5 - 44.0 % 08/09/2023 7:52 AM [facility] [employer] [facility] MCV 97.1 82.0 - 99.0 fL 08/09/2023 7:52 AM [facility] [employer] [facility] MCH 31.1 27.2 - 32.6 pg 08/09/2023 7:52 AM [facility] [employer] [facility] MCHC 32.0 31.5 - 35.5 g/dL 08/09/2023 7:52 AM [facility] [employer] [facility] RDW 08/09/2023 7:52 AM [facility] [employer] [facility] Comment:Parameter not availa ble PLATELETS 350 140 - 350 K/uL 08/09/2023 7:52 AM [facility] [employer] [facility] - [facility] MPV 9.5 9.3 - 12.4 fL 08/09/2023 7:52 AM [facility] [employer] [facility] NEUTROPHILS 76 % 08/09/2023 7:52 AM [facility] [employer] [facility] LYMPHOCYTES 16 % 08/09/2023 7:52 AM [facility] [employer] [facility] MONOCYTES 8 % 08/09/2023 7:52 AM [facility] [employer] [facility] EOSINOPHILS 0 % 08/09/2023 7:52 AM [facility] [employer] [facility] BASOPHILS 0 % 08/09/2023 7:52 AM [facility] [employer] [facility] IMMATURE GRANULOCYTES 0 % 08/09/2023 7:52 AM [facility] [employer] [facility] NEUTROPHIL ABSOLUTE 5.05 1.90 - 7.00 K/uL 08/09/2023 7:52 AM [facility] [employer] [facility] LYMPHOCYTE ABSOLUTE 1.06 0.70 - 4.50 K/uL 08/09/2023 7:52 AM [facility] [employer] [facility] MONOCYTE ABSOLUTE 0.53 0.10 - 1.30 K/uL 08/09/2023 7:52 AM [facility] [employer] [facility] EOSINOPHIL ABSOLUTE 0.01 0.00 - 0.70 K/uL 08/09/2023 7:52 AM [facility] [employer] [facility] BASOPHILS ABSOLUTE 0.01 0.00 - 0.20 K/uL 08/09/2023 7:52 AM [facility] [facility] IMMATURE GRANULOCYTES ABSOLUTE 0.02 0.00 - 0.03 K/uL 08/09/2023 7:52 AM [facility] Blood Venipuncture / Unknown 08/09/2023 6:59 AM [employer] [employer] GATHERER 08/09/2023 7:27 AM [employer] GATHERER Aviva Humphries MD HEMATOLOGY ORDERABLE S [employer] [facility] CLIA# [id number] [address] [place] [address] * (ABNORMAL) POC GLUCOSE (08/08/2023 4:19 AM [facility] [employer] GATHERER) GLUCOSE POC 114(H) 74 - 99 mg/dL 08/08/2023 4:19 AM [employer] GATHERER [facility] LABORATORY [facility] SPECIMEN SOURCE, GLUCOSE POC Whole Blood 08/08/2023 4:19 AM [employer] GATHER[employer] [facility] LABORATORY SERVICES [facility] COMMENT, GLU POC Notified RN/MD 08/08/2023 4:19 AM [employer] GATHERER [facility] LABORATORY SERVICES [facility] Blood, whole 08/08/2023 4:19 AM [employer] GATHERER 08/08/2023 4:28 AM [employer] GATHERER Aviva Humphries MD POINT OF CARE TESTSYLVIE Sky [facility] [employer] [facility] CLIA# [id number] [address] [place] [address] * (ABNORMAL) POC GLUCOSE (08/08/2023 12:09 AM [employer] GATHERER) GLUCOSE POC 121(H) 74 - 99 mg/dL 08/08/2023 12:09 AM [employer] GATHERER [facility] LABORATORY [facility] SPECIMEN SOURCE, GLUCOSE POC Whole Blood 08/08/2023 12:09 AM [employer] G[employer] [facility] LABORATORY [facility] COMMENT, GLU POC Notified RN/ 08/08/2023 12:09 AM [employer] G[employer]ERER [facility] LABOR[facility]ORY [facility] Blood, whole 08/08/2023 12:0 9 AM [employer] GATHERER 08/08/2023 12:18 AM [employer] GATHERER Aviva Humphries MD POINT OF CARE TESTSYLVIE Sky [facility] [employer] [facility] CLIA# [id number] [address] [place] [address] * (ABNORMAL) POC GLUCOSE (08/07/2023 8:18 PM [employer] GATHERER) GLUCOSE POC 107(H) 74 - 99 mg/dL 08/07/2023 8:18 PM [employer] G[employer] [facility] LABORATORY [facility] SPECIMEN SOURCE, GLUCOSE POC Whole Blood 08/07/2023 8:18 PM [employer] G[employer] [facility] LABORATORY [facility] COMMENT, GLU POC Notified RN/ 08/07/2023 8:18 PM [employer] GATHERER [facility] LABORATORY SERVICES [facility] Blood, whole 08/07/2023 8:18 PM [employer] GATHERER 08/07/2023 8:26 PM [employer] GATHERER Aviva Humphries MD POINT OF CARE TESTIN G Performing Organization Address [facility]/ZIP Co de Phone Number [facility] [employer] [facility] CLIA# [id number] [address] [place] [address] * (ABNORMAL) POC GLUCOSE (08/07/2023 4:54 PM [employer] GATHERER) GLUCOSE POC 107(H) 74 - 99 mg/dL 08/07/2023 4:54 PM [employer] GATHERER [facility] LABORATORY SERVICES [facility] SPECIMEN SOURCE, GLUCOSE POC Whole Blood 08/07/2023 4:54 PM IR[employer] GATHERER [employer] LABORATORY [facility] COMMENT, GLU POC Notified RN/ 08/07/2023 4:54 PM [facility] Blood, whole 08/07/2023 4:54 PM [employer] GATHERER 08/07/2023 5:03 PM [employer] GATHERER Aviva Humphries MD POINT OF CARE TESTIN G Performing Organization Address City/[facility]/ZIP Co de Phone Number [facility] [employer] [facility] CLIA# [id number] [address] [place] [address] * (ABNORMAL) POC GLUCOSE (08/07/2023 12:36 PM [employer] GATHERER) GLUCOSE POC 113(H) 74 - 99 mg/dL 08/07/2023 12:36 PM [employer] GATHERER [employer] LABORATORY SERVICES [facility] SPECIMEN SOURCE, GLUCOSE POC Whole Blood 08/07/2023 12:36 PM [employer] GATHERER [employer] LABORATORY SERVICES [facility] COMMENT, GLU POC Notified RN/ 08/07/2023 12:36 PM [facility] G[facility] LAB[facility]ATORY SERVICES [facility] Blood, whole 08/07/2023 12:3 6 PM [employer] [employer] GATHERER 08/07/2023 12:43 PM [employer] GATH[employer]ER Aviva Humphries MD POINT OF CARE TESTIN G [facility] [employer] [facility] CLIA# [id number] [address] [place] [address] * (ABNORMAL) POC GLUCOSE (08/07/2023 7:46 AM [employer] GATHERER) GLUCOSE POC 164(H) 74 - 99 mg/dL 08/07/2023 7:46 AM [place] [employer] G[facility] [employer] [facility] SPECIMEN SOURCE, GLUCOSE POC Whole Blood 08/07/2023 7:46 AM [employer] G[employer]ER [employer] LABORATORY SERVICES [facility] COMMENT, GLU POC Notified RN/ 08/07/2023 7:46 AM [facility] [facility] [facility] [employer] [facility] Blood, whole 08/07/2023 7:46 AM [employer] [employer] GATHERER 08/07/2023 7:54 AM [employer] GATHERER Aviva Humphries MD POINT OF CARE TESTIN G Performing Organization Address City/[facility]/ZIP Co de Phone Number [facility] [employer] [facility] CLIA# [id number] [address] [place] [address] * (ABNORMAL) BASIC METABOLIC PANEL (08/07/2023 4:25 AM [employer] GATHERER) SODIUM 137 136 - 145 mmol/L 08/07/2023 5:22 AM [employer] GATHERER [employer] LABORATORY SERVICES [facility] POTASSIUM 4.2 3.5 - 5.0 mmol/L 08/07/2023 5:22 AM [employer] GATHERER [employer] LABORATORY SERVICES [facility] CHLORIDE 103 98 - 107 mmol/L 08/07/2023 5:22 AM [employer] G[employer] LABORATORY SERVICES [facility] CO2 25 22 - 29 mmol/L 08/07/2023 5:22 AM [employer] G[employer]ER[employer] LABORATORY [facility] CALCIUM 8.6 8.6 - 10.2 mg/dL 08/07/2023 5:22 AM [facility] BUN 11 8 - 23 mg/dL 08/07/2023 5:22 AM [facility] CREATININE 0.76 0.51 - 0.95 mg/dL 08/07/2023 5:22 AM [facility] GLUCOSE 207(H) 74 - 99 mg/dL 08/07/2023 5:22 AM [facility] LABORATORY [facility] GFR >60 >=60 mL/min/1.7 3 sq meter 08/07/2023 5:22 AM [facility] [employer] [facility] Comment:eGFR calculated with 2020 CKD-EPI equation. Vegetarian diet, extremely high or low muscle mass, and may affect results. Cystatin C with Glomerular Filtration Rate is a suitable alternative for these patients. ANION GAP 9 8 - 16 mmol/L 08/07/2023 5:22 AM [facility] [employer] [facility] Blood Venipuncture / Unknown 08/07/2023 4:25 AM [employer] [employer] GATHERER 08/07/2023 4:41 AM [employer] GATHERER Aviva Humphries MD CHEMISTRY ORDERABLES [facility] [employer] [facility] CLIA# [id number] [address] [place] [address] * MANUAL DIFFERENTIAL (08/07/2023 4:24 AM [employer] GATHERER) PLATELET EST. Consistent w Count 08/07/2023 7:35 AM [facility] ANISOCYTOSIS 1+ /hpf 08/07/2023 7:35 AM [facility] [employer] [facility] Blood Venipuncture / Unknown 08/07/2023 4:24 AM [employer] [employer] GATHERER 08/07/2023 4:41 AM [employer] GATHERER Aviva Humphries MD HEMATOLOGY ORDERABLE S COM [facility] CLIA# [id number] [place] [place] [address] * (ABNORMAL) CBC WITH DIFFERENTIAL (08/07/2023 4:24 AM [employer] GATHERER) WBC 4.6 4.0 - 9.8 K/uL 08/07/2023 5:18 AM [employer] [employer] GATHERER [employer] [facility] RBC 3.10(L) 3.90 - 4.90 M/uL 08/07/2023 5:18 AM [employer] [employer] GATHERER [employer] [facility] HEMOGLOBIN 9.5(L) 11.8 - 14.8 g/dL 08/07/2023 5:18 AM [employer] [employer] GATHERER [employer] [facility] HEMATOCRIT 29.8(L) 35.5 - 44.0 % 08/07/2023 5:18 AM [facility] [employer] GATHERER [employer] [facility] MCV 96.1 82.0 - 99.0 fL 08/07/2023 5:18 AM [facility] [employer] GATHERER [employer] [facility] MCH 30.6 27.2 - 32.6 pg 08/07/2023 5:18 AM [facility] [employer] GATHERER [employer] [facility] MCHC 31.9 31.5 - 35.5 g/dL 08/07/2023 5:18 AM [employer] GATHERER [employer] [facility] RDW 08/07/2023 5:18 AM [employer] [employer] GATHER[facility] [employer] [facility] Comment:Parameter not availa ble PLATELETS 324 140 - 350 K/uL 08/07/2023 5:18 AM [facility] [employer] GATHER[facility] [employer] [facility] MPV 9.2(L) 9.3 - 12.4 fL 08/07/2023 5:18 AM [facility] [employer] GATHERER [employer] [facility] NEUTROPHILS 82 % 08/07/2023 5:18 AM [facility] G[facility] [employer] [facility] LYMPHOCYTES 11 % 08/07/2023 5:18 AM [facility] G[facility] [employer] [facility] MONOCYTES 7 % 08/07/2023 5:18 AM [facility] [employer] G[facility] [employer] [facility] EOSINOPHILS 0 % 08/07/2023 5:18 AM [facility] [employer] G[employer] [employer] [facility] BASOPHILS 0 % 08/07/2023 5:18 AM [facility] [employer] GATHER[facility] [employer] [facility] IMMATURE GRANULOCYTES 0 % 08/07/2023 5:18 AM [facility] LABORATORY [facility] NEUTROPHIL ABSOLUTE 3.73 1.90 - 7.00 K/uL 08/07/2023 5:18 AM [facility] LABORATORY [facility] . [facility] LYMPHOCYTE ABSOLUTE 0.50(L) 0.70 - 4.50 K/uL 08/07/2023 5:18 AM [facility] LABORATORY [facility] MONOCYTE ABSOLUTE 0.34 0.10 - 1.30 K/uL 08/07/2023 5:18 AM [facility] LABORATORY SERVICES - [facility] EOSINOPHIL ABSOLUTE 0.00 0.00 - 0.70 K/uL 08/07/2023 5:18 AM [facility]ORATORY SERVICES - [facility] BASOPHILS ABSOLUTE 0.00 0.00 - 0.20 K/uL 08/07/2023 5:18 AM [facility] LABORATORY [facility]. [facility] IMMATURE GRANULOCYTES ABSOLUTE 0.01 0.00 - 0.03 K/uL 08/07/2023 5:18 AM [facility] [employer] [facility] Blood Venipuncture / Unknown 08/07/2023 4:24 AM [facility] G[facility]ERER 08/07/2023 4:41 AM [facility] [employer] GATHERER Aviva Humphries MD HEMATOLOGY ORDERABLE S [facility]# [id number] [address] [place] [address] * (ABNORMAL) POC GLUCOSE (08/07/2023 4:14 AM [facility] [employer] GATHERER) GLUCOSE POC 203(H) 74 - 99 mg/dL 08/07/2023 4:14 AM [facility] [employer] [facility] SPECIMEN SOURCE, GLUCOSE POC Whole Blood 08/07/2023 4:14 AM [employer] G[employer]ER [employer] [facility] COMMENT, GLU POC Notified RN/MD 08/07/2023 4:14 AM [facility] [employer] [facility] Blood, whole 08/07/2023 4:14 AM [facility] GATHERER 08/07/2023 4:32 AM [employer] G[employer]ERER Aviva Humphries MD POINT OF CARE TESTIN G Performing Organization Address [facility]/State/ZIP Co de Phone Number [facility]# [id number] [address] [place] [address] * PATHOLOGY (08/06/2023 6:39 PM [employer] GATHERER) CASE REPORT Surgical Pathology Report ? Case: [id number] ? Authorizing Provider: ??Aviva Humphries MD ? Collected: ? 08/06/2023 06:39 PM ? Ordering Location: ? [facility] ?Received: ?08/07/2023 06:35 AM ? Operating Room ? Pathologist: ? Roshni Rosas MD ? Specimens: ?? A) - Uterus, Cervix, Ovaries, bilateral, Fallopian tubes, bilateral ? B) - Omentum, OMENTUM ? C) - Small Intestine, MESENTRY OF SMALL BOWEL NODULE ? D) - Diaphragm, DIAPHRAMATIC TUMOR ? E) - Lymph nodes, right, RIGHT INGUINAL LYMPH NODES ? 4 11:26 AM [facility] [employer] [facility] ADDENDUM 1 A request for [employer] was received on 08/19/[address] Aviva Humphries. This test was performed on tissue from case [id number]. The case report, slides, and blocks for this case were retrieved from archives. The pathologist reviewed the original pathology report, examined candidate slides, and selected the most appropriate block(s). This selected material was forwarded to [facility] where the test was performed. The final report will be issued directly to the requesting physician. 4 11:26 AM [facility] [employer] [facility] Addendum electronically signed by Roshni Rosas MD [...] (2) lymph nodes with metastatic carcinoma (2/2). 4 11:26 AM [facility] LABORATORY [facility] NOSIS COMMENT Ancillary testing will be performed upon request. 4 11:26 AM [facility] LABORATORY [facility] GROSS DESCRIPTION The specimens are received in [...] to show a complete pinpoint, stellate lumen. Transportation Security Officer sections are submitted in cassettes labeled A1-anterior cervix; A2-anterior polyp, submitted entirely; A3-anterior endomyometrium; A4-posterior cervix; A5-posterior endomyometrium; A6-left ovary; A7-left fallopian tube, fimbria submitted entirely; A8-presumed right fallopian tube, fimbria submitted entirely; A9 through U09-ystgly mass (2 sections in each cassette) with mucinous component in 9-10. Received in the second container additionally labeled omentum are 2 irregular fragments of calhoun-yellow to red-brown lobulated omentum measuring 35.8 x 6 x 2 cm in aggregate. Sections show a calhoun-yellow, fatty cut surface containing multiple pink-cancino firm nodules measuring up to 1.8 cm in greatest dimension. [employer] Security Officer sections are submitted in cassettes labeled B1 [...] (1 lymph node, bisected in each cassette). B 4 11:26 AM [facility] MICROSCOPIC DESCRIPTION The slides are labeled [id number] and November. Sections of the salpingo-oophorectomy (A) [...] heterogeneity, focal positivity for ER, and rare HI positivity. Negative staining is observed for WT1 and CK20. Although weak patchy positivity for AMACR and Napsin A, and focal positivity for ER and rare HI positivity are unusual for clear cell carcinoma, [...] consistent with distant metastasis. 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 pM Category: ?pM1b 11:26 AM [facility] COMMENT Special stain, immunohistochemical, and/or in situ hybridization results are interpreted with controls that demonstrate appropriate staining reactions. Note on use of immunohistochemistry reagents and in situ hybridization probes: These tests were developed and their performance characteristics determined by [facility], Department of Laboratory Medicine. It has not [...] part or completely in the following laboratories: [facility], CLIA #[id number] [address] [place] [address] [facility], [place] #[id number] [address] [place] [address] [facility]/[place], [place] #[id number] [address] [place] [address] This report was created with the [employer] voice-activated dictation system. Inherent to this system is the possibility of syntax, grammar, punctuation and other errors that could impact the interpretation of the report. If there are interpretative questions about aspects of this report, please contact the performing pathologist. 4 11:26 AM [facility] Tissue (Uterus, Cervix, Ovaries, bilateral, Fallopian tubes, bilateral) Collection / Unknown 08/06/2023 6:39 PM [facility] 08/07/2023 6:35 AM [facility] Tissue specimen (specimen) (Omentum) Collection / Unknown 08/06/2023 8:05 PM [facility] 08/07/2023 6:35 AM [facility] Tissue specimen (specimen) (Small Intestine) 08/06/2023 8:41 PM [facility] 08/07/2023 6:35 AM [facility] Tissue specimen (specimen) ENTIRE DIAPHRAGM / Unknown 08/06/2023 9:12 PM [facility] 08/07/2023 6:35 AM [facility] Tissue specimen (specimen) (Lymph nodes, right) 08/06/2023 9:22 PM [facility] 08/07/2023 6:35 AM [facility] Aviva Humphries MD PATHOLOGY/CYTOLOGY O RDERABLES [facility]# [id number] [address] [place] [address] * CYTOLOGY, NON GYNE (08/06/2023 5:16 PM [facility] GATHERER) CASE REPORT Medical Cytology Report ? Case: [id number] ? Authorizing Provider: ??Aviva Humphries MD ? Collected: ? 08/06/2023 05:16 PM ? Ordering Location: ? [facility] ?Received: ?08/07/2023 06:42 AM ? Operating Room ? Pathologist: ? Hitesh Diaz MD ? Specimen: ?Pelvis, Pelvic Washings ? 3 1:30 PM [facility] FINAL DIAGNOSIS Pelvic washing: - Positive for malignant cells. See microscopic description. 3 1:30 PM [facility] S DESCRIPTION Received is a container labeled November and pelvic washings . It contains approximately 40 mL of cloudy red fluid. One ThinPrep made. MG 3 1:30 PM [facility] MICROSCOPIC DESCRIPTION The slides labeled [id number] and November. The ThinPrep slide shows rare clusters of atypical cells with high NC ratio, nuclear membrane irregularity and prominent nucleolus, consistent with carcinoma. 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 Note on use of immunohistochemistry reagents and in situ hybridization probes: These tests were developed and their performance characteristics determined by [facility], Department of Laboratory Medicine. It has not [...] part or completely in the following laboratories: [facility], CLIA #[id number] [address] [place] [address] [facility]/[place], CLIA #[id number] [address] [place] [address]. 3 1:30 PM [facility] G[employer] Washings ENTIRE PELVIS / Unknown Collection / Unknown 08/06/2023 5:16 PM [facility] 08/07/2023 6:42 AM [facility] Aviva Humphries MD PATHOLOGY/CYTOLOGY O RDERABLES Performing Organization Address City/State/[facility] Co de Phone Number [facility]# [id number] [address] [place] [address] * IR INJECTION (08/06/2023 1:48 PM [facility] GATHER[facility]) Narrative 08/06/2023 1:48 PM [facility] Order information only. ??Exam was auto-finalized. ?? Nazario Winslow MD IR ORDERABLES * VERIFICATION BLOOD GROUP (08/06/2023 1:00 PM [facility]ER[facility]) ABO GROUP A 08/06/2023 2:39 PM [facility] RH (D) TYPE Positive 08/06/2023 2:39 PM [facility] Blood Venipuncture / Unknown 08/06/2023 1:00 PM [facility] [facility] 08/06/2023 1:27 PM [facility] Anna Jimenez MD BLOOD BANK ORD ERABLES [facility] [id number] [address] [place] [address] * POC GLUCOSE (08/06/2023 11:03 AM [employer] GATHERER) GLUCOSE POC 89 74 - 99 mg/dL 08/06/2023 11:03 AM [employer] [facility] LABORATORY SERVICES - [facility] SPECIMEN SOURCE, GLUCOSE POC Whole Blood 08/06/2023 11:03 AM [facility] LABORATORY SERVICES - [facility] Blood, whole 08/06/2023 11:0 3 AM [employer] [employer] G[facility]ER 08/06/2023 11:12 AM [employer] [facility] Aviva Humphries MD POINT OF CARE TESTIN G Performing Organization Address City/[facility]/ZIP Co de Phone Number [facility] [employer] [facility]# [id number] [address] [place] [address] documented in this encounter Visit Diagnoses Diagnosis Preop testing- Primary Preoperative examination, unspecified Encounter for blood typing Malignant neoplasm of ovary, unspecified laterality Drug-induced androgenic alopecia Other alopecia Status post surgery Protein-calorie malnutrition, severe Other severe protein-calorie malnutrition Ovarian cancer Malignant neoplasm of ovary Bladder injury Bladder and urethra injury without mention of open wound into cavity Drug-induced androgenic alopecia Other alopecia documented in this encounter Admitting Diagnoses Diagnosis Drug-induced androgenic alopecia Other alopecia documented in this encounter Administered Medications Inactive Administered Medications - up to 3 most recent administrations Medication Order MAR Action Action Date Dose Rate Site acetaminophen (TYLENOL) tablet 650 mg 650 mg, Oral, PRE-PROCEDURE ONCE, 1 dose, Starting on Peace 08/06/23 at 1243, Until Peace 08/06/23 at 1327, Routine, Pre-op Given 08/06/2023 1:27 PM [facility] [facility] 650 mg acetaminophen (TYLENOL) tablet 650 mg 650 mg, Oral, EVERY 6 HOURS, First dose on Thu08/07/23 at 0045, Until Discontinued, Routine, Post-op - Floor Given 08/12/2023 11:48 AM [facility] [employer] [facility] 650 mg Given 08/12/2023 5:17 AM [facility] 650 mg Given 08/12/2023 12:15 AM [facility] 650 mg albuterol (PROVENTIL,VENTOLIN) 2.5 mg /3 [...] daily at bedtime. Given 08/11/2023 8:54 PM [facility] 20 mg Given 08/10/2023 9:24 PM [facility] 20 mg Given 08/09/2023 8:30 PM [facility] [facility] 20 mg dextrose 5 % in water 250 mL flush bag 25 mL 25 mL, IV, SEE ADMIN INSTRUCTIONS, Starting on Thu08/11/23 at 0758, Until Thu08/12/23 at 1822, Routine dextrose 5% - lactated ringers infusion IV, at 75 mL/hr, CONTINUOUS, Starting on Thu08/07/23 at 0045, Until 08/08/23 at 1049, Routine New Bag 08/08/2023 12:34 AM [facility] 75 mL/hr New Bag 08/07/2023 12:32 PM [facility] 75 mL/hr Rate Change 08/07/2023 6:00 AM [facility] 75 mL/hr diatrizoate meglumine (CYSTOGRAFIN) 18% urethral solution 300 mL 300 mL, Urethral, INTRA-PROCEDURE ONCE, 1 dose, Starting on Thu08/11/23 at 1049, Until Thu08/11/23 at 1050, Routine Contrast Given 08/11/2023 10:50 AM [facility] 300 mL enoxaparin (LOVENOX) injection 40 mg 40 mg, subCUT, EVERY 24 HOURS, First dose on Thu08/07/23 at 0900, Until Discontinued, Routine, Post-op - Floor, Indication: Prophylaxis of VTE, Dose to be adjusted per facility protocol? Yes Given 08/12/2023 8:29 AM IRISH MOSS GATHERER 40 mg Abdomen, Left Lower Quadrant Given 08/11/2023 8:23 AM IR[facility] MOSS GATHERER 40 mg Ab dominal Tissue Given 08/10/2023 9:51 AM IRISH MOSS GATHERER 40 mg Ab dominal Tissue famotidine PF (PEPCID) 20 mg/2 mL injection 20 mg 20 mg, IV, EVERY 12 HOURS, First dose on Thu08/09/23 at 0930, Until Discontinued, Routine Given 08/12/2023 8:3 0 AM [facility] GATHER[facility] 20 mg Given 08/11/2023 8:54 PM [facility] GATHER[facility] 20 mg Given 08/11/2023 9:14 AM [facility] 20 mg fluticasone furoate-vilanteroL (BREO ELLIPTA) 100-25 mcg/dose inhaler 1 Puff 1 Puff, Inhalation, DAILY RESPIRATORY, First dose on Thu08/07/23 at 0800, Until Discontinued, Routine Given 08/12/2023 8:45 AM [facility]OSS GATHER[facility] 1 Puff Given 08/11/2023 11:06 AM [facility]ATH[facility] 1 Puff Given 08/10/2023 9:21 AM [facility] GATHER[facility] 1 Puff heparin injection 5,000 Units 5,000 Units, subCUT, ONE TIME ONLY, 1 dose, On Peace 08/06/23 at 1245, Routine, Pre-op Given 08/06/2023 1:28 PM [facility] GATHER[facility] 5,000 Units Arm, Left Upper HYDROmorphone (DILAUDID) 1 mg/mL CV RN injection (adult opioid naive) IV, CONTINUOUS, Starting on Thu08/07/23 at 0200, Until 08/08/23 at 1028, Routine New Bag 08/07/2023 2:11 AM [facility] hydromorPHONE (PF) (DILAUDID) 1 mg/mL syringe 0.3 mg 0.3 mg, IV, POST-PROCEDURE Q 5 MINUTES PRN, 5 doses, Starting on Peace 08/06/23 at 1203, Until Thu08/07/23 at 0026, Pain, Routine, PACU Given 08/06/2023 11:09 PM [facility] GATHER[facility] 0.3 mg hydromorPHONE (PF) (DILAUDID) 1 mg/mL syringe 0.3 mg 0.3 mg, IV, EVERY 2 HOURS PRN, Starting on 08/08/23 at 1028, Until 08/08/23 at 1558, Pain (See admin instructions), Routine Given 08/08/2023 3:45 PM [facility]ATHER[facility] 0.3 mg ibuprofen (MOTRIN) tablet 600 mg 600 mg, Oral, EVERY 6 HOURS, First dose on Thu08/10/23 at 1200, Until Discontinued, Routine Given 08/12/2023 5:17 AM [facility]ATHER[facility] 600 mg Given 08/12/2023 12:15 AM [facility]ATH[facility] 600 mg Given 08/11/2023 5:35 PM [facility]ATH[facility] 600 mg ketorolac (TORADOL) injection 10 mg 10 mg, IV, EVERY 6 HOURS, 4 doses, First dose on Thu08/07/23 at 0045, Last dose on Thu08/07/23 at 1800, Routine, Post-op - Floor Given 08/07/2023 5:56 PM [facility]ATH[facility] 1 0 mg Given 08/07/2023 12:33 PM [facility]ATH[facility] 10 mg Given 08/07/2023 6:00 AM [facility]ATH[facility] 10 mg lactated ringers bolus solution 500 mL 500 mL, IV, ONE TIME ONLY, 1 dose, On Thu08/12/23 at 0845, at 999 mL/hr, Administer over 30 Minutes, Routine New Bag 08/12/2023 9:18 AM [facility] 500 mL 999 mL/hr lactated ringers infusion IV, at 125 mL/hr, PRE-PROCEDURE CONTINUOUS, Starting on Peace 08/06/23 at 1245, Until Thu08/07/23 at 0026, Routine New Bag 08/06/2023 9:38 PM [facility]ATH[facility] New Bag 08/06/2023 7:17 PM [facility]ATH[facility] Continue from Pre-Op 08/06/2023 4:51 PM [facility] GATH[facility] 125 mL/hr lactated ringers infusion IV, at 75 mL/hr, CONTINUOUS, Starting on 08/08/23 at 1100, Until 08/08/23 at 1931, Routine New Bag 08/08/2023 12:04 PM [facility]ATH[facility] 75 mL/hr loratadine (CLARITIN) tablet 10 mg 10 mg, Oral, DAILY, First dose on 08/09/23 at 0930, Until Discontinued, Routine Given 08/12/2023 5:17 AM [facility] 10 mg Given 08/11/2023 5:18 AM [facility] GATHER[facility] 10 mg Given 08/10/2023 5:03 AM [facility] 10 mg naloxone (NARCAN) 0.4 mg/mL injection 0.1 mg 0.1 mg, IV, SEE ADMIN INSTRUCTIONS, Starting on Peace 08/06/23 at 1203, Until Thu08/12/23 at 1822, Routine, PACU ondansetron (ZOFRAN) 4 mg/2 mL injection 4 mg 4 mg, IV, EVERY 6 HOURS PRN, Starting on Thu08/07/23 at 0031, Until Thu08/12/23 at 1822, Nausea/Emesis, Routine, Post-op - Floor Given 08/09/2023 9:38 AM [facility]ATH[facility] 4 mg oxyCODONE (ROXICODONE) tablet 5 mg [...] Until Discontinued, Routine Given 08/12/2023 5:17 AM [facility]ATH[facility] 1 Tablet Given 08/11/2023 5:18 AM [facility] 1 Tablet Given 08/10/2023 6:16 PM [facility]ATHER[facility] 1 Tablet sodium chloride (OCEAN) 0.65 % nasal soln 2 Hansen 2 Hansen, Both Nostrils, EVERY 15 MINUTES PRN, Starting [...] Discontinued, Routine Given 08/11/2023 5 :36 PM [facility] 5 mL Given 08/11/2023 8:25 AM [facility] GATHER[facility] 5 mL sodium chloride flush injection 5 mL 5 mL, IV, SEE ADMIN INSTRUCTIONS, Starting on Thu08/11/23 at 0758, Until Thu08/12/23 at 1822, Routine documented in this encounter Active and Recently Administered Medications Times are shown in [facility]. Scheduled Medication Order 08/10/2023 08/11/2023 08/12/2023 acetaminophen (TYLENOL) tablet 650 mg 650 mg, Oral, EVERY 6 HOURS, First dose on Thu08/07/23 at 0045, Until Discontinued, Routine, Post-op - Floor 0503 (Given - Provider: Theresa Grayson, JANET)1130 (Given - Provider: Maryan Jaeger, JANET)1816 (Given - Provider: Maryan Jaeger, JANET) 0004 (Given - Provider: Gisell Rahman RN)0518 (Given - Provider: Gisell Rahman, JANET)1245 (Given - Provider: Chuy Wills RN)1734 (Given - Provider: Chuy Wills RN) 0015 (Given - Provider: Gisell Rahman RN)0517 (Given - Provider: Gisell Rahman, JANET)1148 (Given - Provider: Yolanda Marinelli RN) atorvastatin (LIPITOR) tablet 20 mg 20 [...] Jaeger RN) 0823 (Given - Provider: Chuy Wills, RN) 0829 (Given - Provider: Yolanda Marinelli, RN) famotidine PF (PEPCID) 20 mg/2 mL injection 20 mg 20 mg, IV, EVERY 12 HOURS, First dose on Thu08/09/23 at 0930, Until Discontinued, Routine 0952 (Given - Provider: Maryan Jaeger RN)2124 (Given - Provider: Gisell Rahman RN) 0914 (Given - Provider: Chuy Wills RN)2053 (Given - Provider: Gisell Rahman, JANET) 0830 (Given - Provider: Yolanda Marinelli, JANET) fluticasone furoate-vilanteroL (BREO ELLIPTA) 100-25 mcg/dose inhaler 1 Puff 1 Puff, Inhalation, DAILY RESPIRATORY, First dose on Thu08/07/23 at 0800, Until Discontinued, Routine 0921 (Given - Provider: Constanza Agudelo RCP) 1106 (Given - Provider: Chuy Wills RN) 0845 (Given - Provider: Genevieve Mack RCP) ibuprofen (MOTRIN) tablet 600 mg (CANCELED) 600 mg, Oral, EVERY 6 HOURS, First dose on Thu08/10/23 at 1200, Until Discontinued, Routine 1130 (Given - Provider: Maryan Jaeger RN)1816 (Given - Provider: Maryan Jaeger RN) 0004 (Given - Provider: Gisell Rahman RN)0518 (Given - Provider: Gisell Rahman, JANET)1245 (Given - Provider: Chuy Wills RN)1735 (Given - Provider: Chuy Wills RN) 0015 (Given - Provider: Gisell Rahman, JANET)0517 (Given - Provider: Gisell Rahman RN) lactated ringers bolus solution 500 mL (COMPLETED) 500 mL, IV, ONE TIME ONLY, 1 dose, On Thu08/12/23 at 0845, at 999 mL/hr, Administer over 30 Minutes, Routine 0918 (New Bag - Provider: Yolanda Marinelli, RN)0948 (Stopped - Provider: Yolanda Marinelli RN) loratadine (CLARITIN) tablet 10 mg 10 mg, Oral, DAILY, First dose on 08/09/23 at 0930, Until Discontinued, Routine 0503 (Given - Provider: Theresa Grayson RN) 0518 (Given - Provider: Gisell Rahman, JANET) 0517 (Given - Provider: Gisell Rahman RN) naloxone (NARCAN) 0.4 mg/mL injection 0.1 mg 0.1 mg, IV, SEE ADMIN INSTRUCTIONS, Starting on Peace 08/06/23 at 1203, Until Thu08/12/23 at 1822, Routine, PACU sennosides-docusate sodium (SENNA-S) 8.6-50 mg per tablet 1 Tablet 1 Tablet, Oral, TWO TIMES DAILY, First dose on 08/09/23 at 1015, Until Discontinued, Routine 0503 (Given - Provider: Theresa Grayson RN)1816 (Given - Provider: Maryan Jaeger RN) 0518 (Given - Provider: Gisell Rahman, JANET)1735 (Refused - Provider: Chuy Wills RN) 0517 (Given - Provider: Gisell Rahman RN) sodium chloride 0.9 % 250 mL flush bag 25 mL 25 mL, IV, SEE ADMIN INSTRUCTIONS, Starting on Tu08/11/23 at 0758, Until Thu08/12/23 at 1822, Routine sodium chloride flush injection 5 mL 5 mL, IV, EVERY 12 HOURS (BlD), First dose on Thu08/11/23 at 0800, Until Discontinued, Routine 0825 (Given - Provider: Chuy Wills, RN)1736 (Given - Provider: Chuy Wills, RN) 0600 (Canceled Entry - Provider: Gisell Rahman RN) sodium chloride flush injection 5 mL 5 mL, IV, SEE ADMIN INSTRUCTIONS, Starting on Tu08/11/23 at 0758, Until Thu08/12/23 at 1822, Routine [...] chloride (OCEAN) 0.65 % nasal soln 2 Hansen 2 Hansen, Both Nostrils, EVERY 15 MINUTES PRN, Starting on 08/08/23 at 1558, Until Thu08/12/23 at 1822, Other (See Comment), dry, Routine documented in this encounter Care Teams Freelance Writer Relationship Specialty Start Date End Date Shilo Soares MD [address] [place] [id number] PCP - General Internal Medicine 04/24/23 documented as of this encounter
--- OUTSIDE RECORDS SUMMARY | 2024-07-26 23:58 | XMS_ITS | Encounter Summary ---
Author Organization [facility] Address [address] [place] [address] Care Team Providers Care Pomology Teacher Name Role Phone Shilo Soares MD Primary Care Provider [phone] Encounter Details Date Type Department Care Team (Late st Contact Info) Description 08/01/2023 External Device Data STL ABSTRACTION Provider, Abstract [...] st Contact Info) Description 08/04/2024 1:00 PM GIS ANALYST Appointment [facility] Infusion Center 2nd Fl [address] [place] [phone] Aviva Humphries MD [address] [place] [address] Infusion Chair 5, 2nd Floor Hall 08/25/2024 1:00 PM GIS ANALYST Office Visit [facility] Gynecologic Oncology Hall [address] [place] [address] Edilia Pettit NP [address] [place] [address] 08/25/2024 1:30 PM GIS ANALYST Appointment [facility] Infusion Center 2nd Fl [address] [place] [phone] Aviva Humphries MD [address] [place] [address] Infusion Chair 1, 2nd Floor Hall 09/01/2024 10:45 AM GIS ANALYST Appointment [facility] [address] [place] [address] [phone] Edilia Pettit, CHELY [address] [place] [address] documented as of this encounter Visit Diagnoses Not on filedocumented in this encounter Care Teams Pomology Teacher Relationship Specialty Start Date End Date Shilo Soares MD [address] [place] [address] PCP - General Internal Medicine 04/24/23 documented as of this encounter
--- OUTSIDE RECORDS SUMMARY | 2024-07-26 23:58 | XMS_ITS | Encounter Summary ---
Author Organization [employer] Address [address] [place] [address] Care Team Providers Care Slitter Creaser Slotter Helper Name Role Phone Shilo Soares MD Primary Care Provider [phone] Reason for Visit * Reason Onset Date Comments PACE manutrition score 07/31/2023 Message l eft Encounter Details Date Type Department Care Team (Late Contact Info) Description 07/31/2023 Telephone [employer] [facility] [address] [place] [address] [place] [address] PACE manutrition score (Message left ) Social History Tobacco Use Types Packs/Day [...] Upcoming Encounters Date Type Department Care Team ([facility] Contact Info) Description 08/04/2024 1:00 PM CLINICAL STAFF ANESTHESIOLOGIST Appointment [facility] Infusion Center 2nd Fl [address] [place] [address] Aviva Humphries MD [address] [facility] [address] [place] [address] Infusion Chair 5, 2nd Floor [place] 08/25/2024 1:00 PM CLINICAL STAFF ANESTHESIOLOGIST Office Visit [facility] Gynecologic Oncology Hall [address] [facility] [address] [place] [address] Edilia Pettit NP [address] [place] [address] 08/25/2024 1:30 PM CLINICAL STAFF ANESTHESIOLOGIST Appointment [facility] Infusion Center 2nd Fl [address] [place] [address] Aviva Humphries MD [address] [place] [address] Infusion Chair 1, 2nd Floor [place] 09/01/2024 10:45 AM CLINICAL STAFF ANESTHESIOLOGIST Appointment [facility] Nuclear Medicine [address] [place] [address] [phone] Edilia Pettit, CHELY [address] [facility] [address] [place] [address] documented as of this encounter Visit Diagnoses Not on filedocumented in this encounter Care Teams Slitter Creaser Slotter Helper Relationship Specialty Start Date End Date Shilo Soares MD [address] [facility] [address] [place] [address] PCP - General Internal Medicine 04/24/23 documented as of this encounter
--- OUTSIDE RECORDS SUMMARY | 2024-07-26 23:58 | XMS_ITS | Encounter Summary ---
Author Organization [facility] Address [address] [place] [address] Care Team Providers Care Textile Conservator Name Role Phone Shilo Soares MD Primary Care Provider [phone] Encounter Details Date Type Department Care Team [...] st Contact Info) Description 08/04/2024 1:00 PM INSPECTOR OF DREDGING Appointment [facility] Infusion Center 2nd Fl [address] [place] [phone] Aviva Humphries MD [address] [place] [address] Infusion Chair 5, 2nd Floor Hall 08/25/2024 1:00 PM INSPECTOR OF DREDGING Office Visit [facility] Gynecologic Oncology Hall [address] [place] [address] Edilia Pettit NP [address] [place] [address] 08/25/2024 1:30 PM INSPECTOR OF DREDGING Appointment Randy Hall [facility] Infusion Center 2nd Fl [address] [place] [address] Aviva Humphries MD [address] [place] [address] Infusion Chair 1, 2nd Floor [place] 09/01/2024 10:45 AM INSPECTOR OF DREDGING Appointment Randy [facility] Nuclear Medicine [address] [place] [phone] [phone] Edilia Pettit NP [address] [place] [address] documented as of this encounter Visit Diagnoses Not on filedocumented in this encounter Care Teams Textile Conservator Relationship Specialty Start Date End Date Shilo Soares MD [address] [place] [address] PCP - General Internal Medicine 04/24/23 documented as of this encounter
--- OUTSIDE RECORDS SUMMARY | 2024-07-26 23:58 | XMS_ITS | Encounter Summary ---
Author Organization [facility] Address [address] [place] [address] Care Team Providers Care Trout Farmer Name Role Phone Shilo Soares MD Primary Care Provider [phone] Encounter Details Date Type Department Care Team (Late st Contact Info) Description 07/30/2023 External Device Data STL ABSTRACTION Provider, Abstract [...] st Contact Info) Description 08/04/2024 1:00 PM WALLPAPER CLEANER Appointment [facility] Infusion Center 2nd Fl [address] [place] [phone] Aviva Humphries MD [address] [place] [address] Infusion Chair 5, 2nd Floor Hall 08/25/2024 1:00 PM WALLPAPER CLEANER Office Visit [facility] Gynecologic Oncology Hall [address] [place] [address] Edilia Pettit NP [address] [place] [address] 08/25/2024 1:30 PM WALLPAPER CLEANER Appointment Randy Hall [facility] Infusion Center 2nd Fl [address] [place] [address] Aviva Humphries MD [address] [place] [address] Infusion Chair 1, 2nd Floor Hall 09/01/2024 10:45 AM WALLPAPER CLEANER Appointment [facility] [address] [place] [address] [id number] Edilia Pettit, CHELY [address] [place] [address] documented as of this encounter Visit Diagnoses Not on filedocumented in this encounter Care Teams Trout Farmer Relationship Specialty Start Date End Date Shilo Soares MD [address] [place] [address] PCP - General Internal Medicine 04/24/23 documented as of this encounter
--- OUTSIDE RECORDS SUMMARY | 2024-07-26 23:58 | XMS_ITS | Encounter Summary ---
Author Organization [facility] Address [address] [place] [address] Care Team Providers Care Well Tender Name Role Phone Shilo Soares MD Primary Care Provider [phone] Encounter Details Date Type Department Care Team [...] (Late Contact Info) Description 08/04/2024 1:00 PM RESIDENTIAL INSTALLER Appointment [facility] Infusion Center 2nd Ok [address] [place] [address] Aviva Humphries MD [address] [place] [address] Infusion Chair 5, 2nd Floor Hall 08/25/2024 1:00 PM RESIDENTIAL INSTALLER Office Visit [facility] Gynecologic Oncology Hall [address] [place] [address] Edilia Pettit, CHELY [address] [place] [address] 08/25/2024 1:30 PM RESIDENTIAL INSTALLER Appointment [facility] Infusion Center 2nd Fl [address] [place] [address] Aviva Humphries MD [address] [place] [address] Infusion Chair 1, 2nd Floor [place] 09/01/2024 10:45 AM RESIDENTIAL INSTALLER Appointment [facility] Nuclear Medicine [address] [place] [address] [id number] Edilia Pettit, CHELY [address] [place] [address] documented as of this encounter Visit Diagnoses Not on filedocumented in this encounter Care Teams Well Tender Relationship Specialty Start Date End Date Shilo Soares MD [address] [place] [address] PCP - General Internal Medicine 04/24/23 documented as of this encounter
--- OUTSIDE RECORDS SUMMARY | 2024-07-26 23:58 | XMS_ITS | Encounter Summary ---
Author Organization [facility] Address [address] [place] [address] Care Team Providers Care Furnace Packer Name Role Phone Shilo Soares MD Primary Care Provider [phone] Reason for Visit * Auth/Cert (Routine) Specialty Diagnoses / Procedures Referred By Alison gomez Referred To Contact Perioperative Diagnoses Malignant neoplasm of ovary, unspecified laterality Drug-induced androgenic alopecia Procedures MS TOTAL ABDOMINAL HYSTERECT W/WO RMVL TUBE OVARY MS LAPAROSCOPY W/RMVL ADNEXAL STRUCTURES MS BSO W/OMENTECTOMY DANETTE&RAD DEBULKING DISSECTION HYSTERECTOMY ABDOMINAL TOTAL SALPINGO-OOPHORECTOMY LAPAROSCOPIC Aviva Humphries MD [address] [facility] [address] [place] [address] [facility] [address] [place] [address] Referral ID Status Reason Start Date Expiration Date Visits Re quested Visits Authorized [id number] 1 1 Encounter Details Date Type Department Care Team (Late st Contact Info) Description 08/06/2023 2:27 PM DOWEL PIN WORKER Anesthesia Event [facility] [place] [facility] [address] [place] [address] Nazario Winslow MD [address] [place] [address] Anesthesia Record Procedure Summary Procedure Name Responsible Anesthesiologist Anesthesia Start Time Anesthesia Stop Time NERVE BLOCK Events Date Time Event Comment 08/06/2023 1345 Block Sedation Start 1345 Pull Vitals 1355 Block Sedation Stop Meds * Agents No agents on file. * Blood No blood administrations on file. Lines, Drains, and Airways Type Details Placement Removal Wound 08/07/2326; No; 3; abdomen; surgical (3 lap sites) 08/07/2326 by Gisell Rahman RN Wound 08/07/23; 26; No; 5; anterior; lower quadrant; surgical 08/07/2326 by Gisell Rahman RN Wound 08/07/2326; Yes; 6; Left; thigh; skin tear 08/07/2326 by Gisell Rahman RN Wound 08/07/2326; Yes; 7; Right, posterior; thigh; ulceration (shingle) 08/07/2326 by Gisell Rahman RN documented in this encounter Social History Tobacco [...] on file documented as of this encounter OR Notes * Anesthesia Procedure Notes - Nazario Winslow MD - 08/06/2023 2:28 PM DOWEL PIN WORKER Associated Order(s): Peripheral Block TAP Block Patient location during procedure: Pre-op Start time: 08/06/2023 1:45 PM End time: 08/06/2023 1:55 PM Reason for block: at surgeon's request and post-op pain management Staffing Performed: Anesthesiologist (/) Authorized by: Nazario Winslow MD Performed by: Nazario Winslow MD Attending Physician: Priscilla Gerber RN Preanesthetic Checklist Completed: patient identified, IV checked, site marked, risks and benefits discussed, surgical consent, monitors and equipment checked, pre-op evaluation and timeout performed Hand hygiene performed prior to procedure Patient was prepped and draped in usual sterile fashion Patient position: Supine Prep: ChloraPrep Patient monitoring: Continuous pulse oximetry and Heart rate Block Region: Truncal Block Block Type: TAP Anesthesia laterality: bilateral. Injection technique: Single-shot [place] Identification: ultrasound guided Local infiltration anesthetic: wheal. Local injected: Bupivacaine with epinephrine and Bupivacaine 0.25% (15 ml each side; 30 ml total) Dexamethasone (mg): 2 Epinephrine (mcg/mL): 5 Needle Needle type: Short-bevel Needle gauge: 22 G Needle length: 8 cm. Needle localization: Ultrasound guidance Nerve Stimulator or Paresthesia Response Motor response or paresthesia obtained mA ms Depth (cm) Sedation Given: Midazolam (mg): 1 Patient Response: Awake and Responsive to verbal stimuli Assessment Paresthesia pain: None Heart rate change: no Slow fractionated injection: yes Narrative Injections made incrementally with aspirations every (mL): 5 Events: easy and well tolerated and no block events Outcome: Complete Additional Notes I have discussed with the patient, and/or surrogate, the placement of a transverse abdominus plane block for postoperative pain management. We have discussed the risks, benefits, complications and side effects. We have also discussed alternative methods of postoperative analgesia. The patient, and/or surrogate, understands and wishes to proceed with the procedure. Heart rate and Sp02 monitored during and immediately following procedure and stable throughout. L PIN WORKER documented in this encounter Plan of Treatment Upcoming Encounters Date Type Department Care Team (Late st Contact Info) Description 08/04/2024 1:00 PM DOWEL PIN WORKER [facility]ointment [facility] 2nd Fl [address] [place] [address] Aviva Humphries MD [address] [place] [address] Infusion Chair 5, 2nd Floor [place] 08/25/2024 1:00 PM DOWEL PIN WORKER Office Visit [facility] Gynecologic Oncology [place] [address] [place] [address] Edilia Pettit, SUPERVISOR HAND SILVERING [address] [facility] [address] [place] [address] 08/25/2024 1:30 PM DOWEL PIN WORKER Appointment [facility] Infusion Center 2nd Fl [address] [place] [address] Aviva Humphries MD [address] [facility] [address] [place] [address] Infusion Chair 1, 2nd Floor [place] 09/01/2024 10:45 AM DOWEL PIN WORKER Appointment [facility] Nuclear Medicine [address] [place] [address] [phone] Edilia Pettit, CHELY [address] [facility] [address] [place] [address] documented as of this encounter Procedures Procedure Name Priority Date/Time Associated Diagnosis Comments MS ANESTHESIA BLOCK PB PLACEHOLDER CHARGE Routine 08/06/2023 2:28 PM DOWEL PIN WORKER documented in this encounter Results * MS ANESTHESIA BLOCK PB PLACEHOLDER CHARGE (08/06/2023 2:28 PM DOWEL PIN WORKER) Narrative Nazario Winslow MD - 08/06/2023 2:28 PM DOWEL PIN WORKER Nazario Winslow MD ? 08/06/2023 ??2:29 PM TAP Block Patient location during procedure: Pre-op Start time: 08/06/2023 1:45 PM End time: 08/06/2023 1:55 PM Reason for block: at surgeon's request and post-op pain management Staffing Performed: Anesthesiologist (/) Authorized by: Nazario Winslow MD ?? Performed by: Nazario Winslow MD Attending Physician: Priscilla Gerber RN Preanesthetic Checklist Completed: patient identified, IV checked, site marked, risks and benefits discussed, surgical consent, monitors and equipment checked, pre-op evaluation and timeout performed Hand hygiene performed prior to procedure Patient was prepped and draped in usual sterile fashion Patient position: Supine Prep: ChloraPrep Patient monitoring: Continuous pulse oximetry and Heart rate Block Region: Truncal Block Block Type: TAP Anesthesia laterality: bilateral. Injection technique: Single-shot [place] Identification: ultrasound guided Local infiltration anesthetic: wheal. Local injected: Bupivacaine with epinephrine and Bupivacaine 0.25% (15 ml each side; 30 ml total) Dexamethasone (mg): 2 Epinephrine (mcg/mL): 5 Needle Needle type: Short-bevel Needle gauge: 22 G Needle length: 8 cm. Needle localization: Ultrasound guidance ?? Nerve Stimulator or Paresthesia Response Motor response or paresthesia obtained mA ms Depth (cm) ? Sedation Given: Midazolam (mg): 1 Patient Response: Awake and Responsive to verbal stimuli Assessment Paresthesia pain: None Heart rate change: no Slow fractionated injection: yes Narrative Injections made incrementally with aspirations every (mL): 5 Events: easy and well tolerated and no block events Outcome: Complete Additional Notes I have discussed with the patient, and/or surrogate, the placement of a transverse abdominus plane block for postoperative pain management. ??We have discussed the risks, benefits, complications and side effects. ??We have also discussed alternative methods of postoperative analgesia. ??The patient, and/or surrogate, understands and wishes to proceed with the procedure. Heart rate and Sp02 monitored during and immediately following procedure and stable throughout. Nazario Winslow MD PROCEDURE/MINOR SURG ICAL ORDERABLES documented in this encounter Visit Diagnoses Not on filedocumented in this encounter Care Teams Furnace Packer Relationship Specialty Start Date End Date Shilo Soares MD [address] [place] [address] PCP - General Internal Medicine 04/24/23 documented as of this encounter
--- OUTSIDE RECORDS SUMMARY | 2024-07-26 23:58 | XMS_ITS | Encounter Summary ---
Author Organization [facility] Address [address] [place] [address] Care Team Providers Care Chemical Analytical Sampler Name Role Phone Shilo Soares MD Primary Care Provider [phone] Encounter Details Date Type Department Care Team (Late st Contact Info) Description 07/31/2023 External Device Data STL ABSTRACTION Provider, Abstract [...] st Contact Info) Description 08/04/2024 1:00 PM PATENTS EXAMINER Appointment [facility] Infusion Center 2nd Fl [address] [place] [address] Aviva Humphries MD [address] [place] [address] Infusion Chair 5, 2nd Floor [place] 08/25/2024 1:00 PM PATENTS EXAMINER Office Visit [facility] Gynecologic Oncology [place] [address] [place] [address] Edilia Pettit NP [address] [place] [address] 08/25/2024 1:30 PM PATENTS EXAMINER Appointment Randy Hall [facility] Infusion Center 2nd Fl [address] [place] [address] Aviva Humphries MD [address] [facility] [address] [place] [address] Infusion Chair 1, 2nd Floor [place] 09/01/2024 10:45 AM PATENTS EXAMINER Appointment [facility] [address] [place] [address] [phone] Edilia Pettit, CHELY [address] [facility] [address] [place] [address] documented as of this encounter Visit Diagnoses Not on filedocumented in this encounter Care Teams Chemical Analytical Sampler Relationship Specialty Start Date End Date Shilo Soares MD [address] [place] [address] PCP - General Internal Medicine 04/24/23 documented as of this encounter
--- OUTSIDE RECORDS SUMMARY | 2024-07-26 23:58 | XMS_ITS | Encounter Summary ---
Author Organization [facility] Address [address] [place] [address] Care Team Providers Care Scalehouse Attendant Name Role Phone Shilo Soares MD Primary Care Provider [phone] Encounter Details Date Type Department Care Team (Late st Contact Info) Description 08/02/2023 External Device Data STL ABSTRACTION Provider, Abstract [...] st Contact Info) Description 08/04/2024 1:00 PM STAVE BLOCK ROLLER Appointment [facility] Infusion Center 2nd Fl [address] [place] [address] Aviva Humphries MD [address] [place] [address] Infusion Chair 5, 2nd Floor [place] 08/25/2024 1:00 PM STAVE BLOCK ROLLER Office Visit [facility] Gynecologic Oncology [place] [address] [place] [address] Edilia Pettit NP [address] [place] [address] 08/25/2024 1:30 PM STAVE BLOCK ROLLER Appointment Randy Hall [facility] Infusion Center 2nd Fl [address] [place] [address] Aviva Humphries MD [address] [facility] [address] [place] [address] Infusion Chair 1, 2nd Floor [place] 09/01/2024 10:45 AM STAVE BLOCK ROLLER Appointment [facility] Medicine [address] [place] [address] [id number] Edilia Pettit, CHELY [address] [facility] [address] [place] [address] documented as of this encounter Visit Diagnoses Not on filedocumented in this encounter Care Teams Scalehouse Attendant Relationship Specialty Start Date End Date Shilo Soares MD [address] [place] [address] PCP - General Internal Medicine 04/24/23 documented as of this encounter
--- OUTSIDE RECORDS SUMMARY | 2024-07-26 23:59 | XMS_ITS | Encounter Summary ---
Author Organization [facility] Address [address] [place] [address] Care Team Providers Care Hydropulper Name Role Phone Shilo Soares MD Primary Care Provider [phone] Reason for Visit * Reason Onset Date Comments medical question 06/19/2023 Encounter Details Date Type Department Care Team (Late st Contact Info) Description 06/19/2023 Telephone [facility] Gynecologic Oncology Hall [address] [place] [address] Aviva Humphries MD [address] [facility] [address] [place] [address] medical question Social History Tobacco Use Types Packs/Day Years Used Date Smoking Tobacco: Every Day Cigarettes 0.5 35 Smokeless Tobacco: Never Alcohol Use Standard Drinks/Week Comments Never 0 (1 standard drink = 0.6 oz pur e alcohol) socially Sex and Gender Information Value Date Recorded Sex Assigned at Not on file Gender Identity Not on file Sexual Orientation Not on file documented as of this encounter Miscellaneous Notes * Telephone Encounter - Nae Harrington RN - 06/19/2023 9:50 AM CST Pt called and would like to know what Dr. Humphries thoughts were on the CT scan and when to get itdone. Let her know this RN spoke with her yesterday and Dr. Humphries would like to see what her CA-125 is and then possibly get the CT scan after 3rd cycle . Per Dr. Humphries may hold Jaclyn at cycle 3. She would like to know about BRACA testing. Let her know that [facility] may test for that but will ch jewel with Dr. Humphries to see if she needs to see genetics. She voiced understanding. EATION SUPERINTENDENT documented in this encounter Plan of Treatment Upcoming Encounters Date Type Department Care Team (Late st Contact Info) Description 08/04/2024 1:00 PM RECREATION SUPERINTENDENT Appointment Randy [facility] Infusion Center 2nd Az [address] [place] [address] Aviva Humphries MD [address] [facility] [address] [facility] [place] [address] Infusion Chair 5, 2nd Floor [place] 08/25/2024 1:00 PM RECREATION SUPERINTENDENT Office Visit [facility] [place] [facility] Gynecologic Oncology [place] [address] [facility] [address] [place] [address] Edilia Pettit, CHELY [address] [address] 08/25/2024 1:30 PM RECREATION SUPERINTENDENT Appointment [facility] Center 2nd Fl [address] [place] [address] Aviva Humphries MD [address] [facility] [address] [facility] [place] [address] Infusion Chair 1, 2nd Floor [place] 09/01/2024 10:45 AM RECREATION SUPERINTENDENT Appointment [facility] Nuclear Medicine [address] [place] [address] [id number] Edilia Pettit, CHELY [address] [address] documented as of this encounter Visit Diagnoses Not on filedocumented in this encounter Care Teams Hydropulper Relationship Specialty Start Date End Date Shilo Soares MD [address] [place] [address] PCP - General Internal Medicine 04/24/23 documented as of this encounter
--- OUTSIDE RECORDS SUMMARY | 2024-07-26 23:59 | XMS_ITS | Encounter Summary ---
Author Organization [facility] Address [address] [place] [address] Care Team Providers Care Hockey Player Name Role Phone hSilo Soares MD Primary Care Provider [phone] Encounter Details Date Type Department Care Team (Late st Contact Info) Description 06/25/2023 External Device Data STL ABSTRACTION Provider, Abstract [...] st Contact Info) Description 08/04/2024 1:00 PM TAG CLERK Appointment Randy [facility] Infusion Center 2nd Fl [address] [place] [address] Aviva Humphries MD [address] [facility] [address] [place] [address] Infusion Chair 5, 2nd Floor [place] 08/25/2024 1:00 PM TAG CLERK Office Visit [facility] Gynecologic Oncology Hall [address] [facility] [address] [place] [address] Edilia Pettit NP [address] [facility] [address] [place] [address] 08/25/2024 1:30 PM TAG CLERK Appointment Randy Hall [facility] Infusion Center 2nd Fl [address] [place] [address] Aviva Humphries MD [address] [facility] [address] [place] [address] Infusion Chair 1, 2nd Floor [place] 09/01/2024 10:45 AM TAG CLERK Appointment [facility] [address] [place] [address] [phone] Edilia Pettit, CHELY [address] [facility] [address] [place] [address] documented as of this encounter Visit Diagnoses Not on filedocumented in this encounter Care Teams Hockey Player Relationship Specialty Start Date End Date Shilo Soares MD [address] [facility] [address] [place] [address] PCP - General Internal Medicine 04/24/23 documented as of this encounter
--- OUTSIDE RECORDS SUMMARY | 2024-07-26 23:59 | XMS_ITS | Encounter Summary ---
Author Organization [facility] Address [address] [place] [address] Care Team Providers Care Garment Presser Name Role Phone Shilo Soares MD Primary Care Provider [phone] Encounter Details Date Type Department Care Team (Late st Contact Info) Description 07/23/2023 External Device Data STL ABSTRACTION Provider, Abstract [...] st Contact Info) Description 08/04/2024 1:00 PM VEHICLE COST ENGINEER Appointment Randy Hall [facility] Infusion Center 2nd Fl [address] [place] [address] Aviva Humphries MD [address] [facility] [address] [place] [address] Infusion Chair 5, 2nd Floor [place] 08/25/2024 1:00 PM VEHICLE COST ENGINEER Office Visit [facility] Gynecologic Oncology Hall [address] [facility] [address] [place] [address] Edilia Pettit NP [address] [facility] [address] [place] [address] 08/25/2024 1:30 PM VEHICLE COST ENGINEER Appointment Randy Hall [facility] Infusion Center 2nd Fl [address] [place] [address] Aviva Humphries MD [address] [facility] [address] [place] [address] Infusion Chair 1, 2nd Floor [place] 09/01/2024 10:45 AM VEHICLE COST ENGINEER Appointment [facility] Medicine [address] [place] [address] [phone] Edilia Pettit, CHELY [address] [facility] [address] [place] [address] documented as of this encounter Visit Diagnoses Not on filedocumented in this encounter Care Teams Garment Presser Relationship Specialty Start Date End Date Shilo Soares MD [address] [facility] [address] [place] [address] PCP - General Internal Medicine 04/24/23 documented as of this encounter
--- OUTSIDE RECORDS SUMMARY | 2024-07-26 23:59 | XMS_ITS | Encounter Summary ---
Author Organization [facility] Address [address] [place] [address] Care Team Providers Care Bearing Ring Assembler Name Role Phone Shilo Soares MD Primary Care Provider [phone] Encounter Details Date Type Department Care Team (Late st Contact Info) Description 07/28/2023 External Device Data STL ABSTRACTION Provider, Abstract [...] st Contact Info) Description 08/04/2024 1:00 PM PLACEMENT ASSISTANT Appointment Randy [facility] Infusion Center 2nd Fl [address] [place] [address] Aviva Humphries MD [address] [facility] [address] [place] [address] Infusion Chair 5, 2nd Floor [place] 08/25/2024 1:00 PM PLACEMENT ASSISTANT Office Visit [facility] Gynecologic Oncology Hall [address] [facility] [address] [place] [address] Edilia Pettit NP [address] [facility] [address] [place] [address] 08/25/2024 1:30 PM PLACEMENT ASSISTANT Appointment Randy [facility] Infusion Center 2nd Fl [address] [place] [address] Aviva Humphries MD [address] [facility] [address] [place] [address] Infusion Chair 1, 2nd Floor [place] 09/01/2024 10:45 AM PLACEMENT ASSISTANT Appointment [facility] [address] [place] [address] [phone] Edilia Pettit, CHELY [address] [facility] [address] [place] [address] documented as of this encounter Visit Diagnoses Not on filedocumented in this encounter Care Teams Bearing Ring Assembler Relationship Specialty Start Date End Date Shilo Soares MD [address] [facility] [address] [place] [address] PCP - General Internal Medicine 04/24/23 documented as of this encounter
--- OUTSIDE RECORDS SUMMARY | 2024-07-26 23:59 | XMS_ITS | Encounter Summary ---
Author Organization [facility] Address [address] [place] [address] Care Team Providers Care Hydration Plant Operator Name Role Phone Shilo Soares MD Primary Care Provider [phone] Reason for Visit * Reason Comments Follow Up Encounter Details Date Type Department Care Team (Late st Contact Info) Description 07/22/2023 8:15 AM PUMP REBUILDER Office Visit [facility] Gynecologic Oncology Hall [address] [place] [address] Aviva Humphries MD [address] [place] [address] Malignant neoplasm of ovary, unspecified laterality (Primary Dx); Pre-op evaluation; Chemotherapy follow-up examination Social History Tobacco Use [...] Sign Reading Time Taken Comments Blood Pressure 124/68 07/22/2023 8:04 AM PUMP REBUILDER Pulse - - Temperature 36.7 ??C (98 ??F) 07/22/2023 8:04 AM PUMP REBUILDER Respiratory Rate - - Oxygen Saturation 98% 07/22/2023 8:04 AM PUMP REBUILDER Inhaled Oxygen Concentration - - Weight 45.8 kg (101 lb) 07/22/2023 8:04 AM PUMP REBUILDER Height 167.6 cm (5' 6 ) 07/22/2023 8:04 AM PUMP REBUILDER Body Mass Index 16.3 07/22/2023 8:04 AM PUMP REBUILDER documented in this encounter Progress Notes * Aviva Humphries MD - 07/22/2023 8:07 AM CST Images from the original note were not included. [facility] GYNECOLOGIC ONCOLOGY OFFICE VISIT 07/22/2023 Narda Mayen REFERRING PROVIDER: Dr. Barnard ref. provider found PRIMARY CARE PROVIDER: Shilo Harley MD RETURN PATIENT VISIT Cancer Staging Ovarian cancer Staging form: Ovary, Fallopian Tube, and Primary Peritoneal Carcinoma, AJCC 8th Edition - Clinical stage from 05/13/2023: FIGO Stage IVB - Signed by Aviva Humphries MD on 05/13/2023 Oncology History: 03/2023 presented to [place] ED with abdominal distension; CT showed 11.6cm [...] ordered additional work up and referred to pets and pet supplies salesperson oncology. CT chest did not show metastatic [...] Chest 04/16/23 CTAP Pathology/Histology/Cytology results: 04/29/[address] [facility] [address] review Component FINAL DIAGNOSIS [place] [address] (OSC [id number]; 04/29/2023 and [id number]; 05/06/2023) [id number] Ascites fluid, cytologic examination: - CK7 positive adenocarcinoma. 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 See comment. at 1237 MICROSCOPIC DESCRIPTION Received are slides labeled [id number] and [id number] and November. Microscopic examination of the ascites fluid shows [...] origin. Sections of the lymph node biopsy ([id number]) show cores of lymph node involved by [...] , Rfl: fluticasone propionate (FLONASE) 50 mcg/spray [place], Suspension nasal inhaler, Administer 2 Sprays in [...] No obstetric history on file. ; x3 LARD RENDERER HISTORY: Abnml Pap: denies Menopause: 54ish; no bleeding Social: Social History Tobacco Use Smoking Status Every Day Packs/day: 0.50 Years: 35.00 Additional pack years: 0.00 Total pack years: 17.50 Types: Cigarettes Smokeless Tobacco Never TOBACCO COUNSELING She was counseled to discontinue tobacco/nicotine use. Down to half pack per day. 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 BP 124/68 (BP Location: Left [...] 2w post op Thank you for involving [facility] Gynecologic Oncology in the care of this patient. Aviva Humphries MD REBUILDER documented in this encounter Plan of Treatment Upcoming Encounters Date Type Department Care Team (Late st Contact Info) Description 08/04/2024 1:00 PM PUMP REBUILDER Appointment [facility]fusion Center 2nd Nv [address] [place] [address] Aviva Humphries MD [address] [place] [address] Infusion Chair 5, 2nd Floor Hall 08/25/2024 1:00 PM PUMP REBUILDER Office Visit [facility] Gynecologic Oncology Hall [address] [place] [address] Edilia Pettit, CHELY [address] [facility] [address] [place] [address] 08/25/2024 1:30 PM PUMP REBUILDER Appointment Randy Proctor [facility] Infusion Center 2nd Fl [address] [place] [address] Aviva Humphries MD [address] [facility] [address] [place] [address] Infusion Chair 1, 2nd Floor Hall 09/01/2024 10:45 AM PUMP REBUILDER Appointment [facility] Nuclear Medicine [address] [place] [address] [id number] Edilia Pettit, CHELY [address] [facility] [address] [place] [address] documented as of this encounter Visit Diagnoses Diagnosis Malignant neoplasm of ovary, unspecified laterality- Primary Pre-op evaluation Preoperative examination, unspecified Chemotherapy follow-up examination documented in this encounter Care Teams Hydration Plant Operator Relationship Specialty Start Date End Date Shilo Soares MD [address] [place] [address] PCP - General Internal Medicine 04/24/23 documented as of this encounter
--- OUTSIDE RECORDS SUMMARY | 2024-07-26 23:59 | XMS_ITS | Encounter Summary ---
Author Organization [facility] Address [address] [place] [address] Care Team Providers Care Proof Clerk Name Role Phone Shilo Soares MD Primary Care Provider [phone] Encounter Details Date Type Department Care Team (Late st Contact Info) Description 07/08/2023 External Device Data STL ABSTRACTION Provider, Abstract [...] st Contact Info) Description 08/04/2024 1:00 PM DIESEL ENGINE OPERATOR Appointment [facility] Infusion Center 2nd Fl [address] [place] [phone] Aviva Humphries MD [address] [facility] [address] [place] [address] Infusion Chair 5, 2nd Floor Hall 08/25/2024 1:00 PM DIESEL ENGINE OPERATOR Office Visit [facility] Gynecologic Oncology Hall [address] [facility] [address] [place] [address] Edilia Pettit NP [address] [facility] [address] [place] [address] 08/25/2024 1:30 PM DIESEL ENGINE OPERATOR Appointment Randy Hall [facility] Infusion Center 2nd Fl [address] [place] [address] Aviva Humphries MD [address] [facility] [address] [place] [address] Infusion Chair 1, 2nd Floor Hall 09/01/2024 10:45 AM DIESEL ENGINE OPERATOR Appointment [facility] [address] [place] [address] [id number] Edilia Pettit, CHELY [address] [address] [place] [address] documented as of this encounter Visit Diagnoses Not on filedocumented in this encounter Care Teams Proof Clerk Relationship Specialty Start Date End Date Shilo Soares MD [address] [facility] 2 [place] [address] PCP - General Internal Medicine 04/24/23 documented as of this encounter
--- OUTSIDE RECORDS SUMMARY | 2024-07-26 23:59 | XMS_ITS | Encounter Summary ---
Author Organization [facility] Address [address] [place] [address] Care Team Providers Care Scout Name Role Phone Shilo Soares MD Primary Care Provider [phone] Reason for Visit * Reason Onset Date Comments Referral 07/01/2023 Encounter Details Date Type Department Care Team (Late st Contact Info) Description 07/01/2023 Telephone [facility] [address] [place] [address] Referral Social History Tobacco Use Types Packs/Day Years [...] encounter Miscellaneous Notes * Telephone Encounter - Ruth Powers RD - 07/01/2023 12:54 PM WET ROOM SUPERVISOR [facility] - ONCOLOGY DIETITIAN PROGRESS NOTE Referral for Oncology Nutrition Education ASSESSMENT Narda Mayen is a 62 y.o. female patient. Pt states her appetite is decreased after chemotherapy, but able to eat a little more after the first week or so has passed. She is not a big fan of protein drinks. Pt does feel she is eating a little better now and gained a few pounds back. INTERVENTION: Encouraged adequate protein to help preserve muscle mass. Emailed pt handout on increasing protein in the diet and went over some suggestions on getting protein in without drinking protein drinks. Encouraged patient to contact RD with any nutrition questions or concerns which may arise. Wt Readings from Last 7 Encounters: 06/18/23 45.9 kg (101 lb 3.2 oz) 05/25/23 51.2 kg (112 lb 14.4 oz) 05/18/23 51.5 kg (113 lb 9.6 oz) 05/13/23 51.5 kg (113 lb 9.6 oz) 04/24/23 51.2 kg (112 lb 12.8 oz) Lab Results Component Value Date/Time NA 140 06/18/2023 08:16 AM K 4.0 06/18/2023 08:16 AM CL 103 06/18/2023 08:16 AM BUN 5 (L) 06/18/2023 08:16 AM CREAT 0.56 06/18/2023 08:16 AM GLUCOSE 94 06/18/2023 08:16 AM CA 9.3 06/18/2023 08:16 AM ALBUMIN 3.6 06/18/2023 08:16 AM GFR >60 06/18/2023 08:16 AM MG 2.1 06/18/2023 08:16 AM No results found for: HGBA1C , [id number] Past Medical History: Past Medical History: Diagnosis Date Asthma Emphysema of lung Hyperlipidemia Allergies Allergen Reactions Penicillins Rash Ciprofloxacin Rash Pertinent Labs: CMP: Lab Results Component Value Date/Time NA 140 06/18/2023 08:16 AM K 4.0 06/18/2023 08:16 AM CL 103 06/18/2023 08:16 AM CO2 27 06/18/2023 08:16 AM CA 9.3 06/18/2023 08:16 AM BUN 5 (L) 06/18/2023 08:16 AM CREAT 0.56 06/18/2023 08:16 AM GLUCOSE 94 06/18/2023 08:16 AM TOTALPROTEIN 7.4 06/18/2023 08:16 AM ALBUMIN 3.6 06/18/2023 08:16 AM BILITOTAL 0.3 06/18/2023 08:16 AM ALKPHOS 130 (H) 06/18/2023 08:16 AM AST 38 (H) 06/18/2023 08:16 AM ALT 36 (H) 06/18/2023 08:16 AM ANIONGAP 10 06/18/2023 08:16 AM Food Allergies: No known food allergies Diagnosis: Increased protein needs r/t physiological causes increasing nutrient needs as evidenced by rapid wt loss. MONITOR/EVAL: Will follow up as needed by patient or referral to this RD. Ruth Powers MA, RD, LD, [facility] [phone] Available via [employer] chat [email or web address] ROOM SUPERVISOR documented in this encounter Plan of Treatment Upcoming Encounters Date Type Department Care Team (Late st Contact Info) Description 08/04/2024 1:00 PM WET ROOM SUPERVISOR Appointment Randy [facility] Infusion Center 2nd Fl [address] [place] [address] Aviva Humphries MD [address] [place] [address] Infusion Chair 5, 2nd Floor Hall 08/25/2024 1:00 PM WET ROOM SUPERVISOR Office Visit [facility] Gynecologic Oncology Hall [address] [facility] [place] [address] Edilia Pettit NP [address] [facility] [address] [place] [address] 08/25/2024 1:30 PM WET ROOM SUPERVISOR Appointment [facility] Infusion Center 2nd Fl [address] [place] [address] Aviva Humphries MD [address] [facility] [place] [address] Infusion Chair 1, 2nd Floor Hall 09/01/2024 10:45 AM WET ROOM SUPERVISOR Appointment Randy Proctor [facility] Nuclear Medicine [address] [place] [address] [id number] Edilia Pettit, CHELY [address] [facility] [address] [place] [address] documented as of this encounter Visit Diagnoses Not on filedocumented in this encounter Care Teams Scout Relationship Specialty Start Date End Date Shilo Soares MD [address] [place] [address] PCP - General Internal Medicine 04/24/23 documented as of this encounter
--- OUTSIDE RECORDS SUMMARY | 2024-07-26 23:59 | XMS_ITS | Encounter Summary ---
Author Organization [facility] Address [address] [place] [address] Care Team Providers Care Flame Annealing Machine Setter Name Role Phone Shilo Soares MD Primary Care Provider [phone] Encounter Details Date Type Department Care Team (Late st Contact Info) Description 06/18/2023 External Device Data STL ABSTRACTION Provider, Abstract [...] st Contact Info) Description 08/04/2024 1:00 PM MINIATURE SET CONSTRUCTOR Appointment Randy Hall [facility] Infusion Center 2nd Fl [address] [place] [address] Aviva Humphries MD [address] [facility] [address] [place] [address] Infusion Chair 5, 2nd Floor Hall 08/25/2024 1:00 PM MINIATURE SET CONSTRUCTOR Office Visit [facility] Gynecologic Oncology Hall [address] [facility] [address] [place] [address] Edilia Pettit NP [address] [facility] [address] [place] [address] 08/25/2024 1:30 PM MINIATURE SET CONSTRUCTOR Appointment Randy Hall [facility] Infusion Center 2nd Fl [address] [place] [address] Aviav Humphries MD [address] [facility] [address] [place] [address] Infusion Chair 1, 2nd Floor Hall 09/01/2024 10:45 AM MINIATURE SET CONSTRUCTOR Appointment [facility] [address] [place] [address] [id number] Edilia Pettit, CHELY [address] [facility] [address] [place] [address] documented as of this encounter Visit Diagnoses Not on filedocumented in this encounter Care Teams Flame Annealing Machine Setter Relationship Specialty Start Date End Date Shilo Soares MD [address] [facility] 2 [place] [address] PCP - General Internal Medicine 04/24/23 documented as of this encounter
--- OUTSIDE RECORDS SUMMARY | 2024-07-26 23:59 | XMS_ITS | Encounter Summary ---
Author Organization [facility] Address [address] [place] [address] Care Team Providers Care Disulfurizer Tender Name Role Phone Shilo Soares MD Primary Care Provider [phone] Encounter Details Date Type Department Care Team (Late st Contact Info) Description 07/11/2023 External Device Data STL ABSTRACTION Provider, Abstract [...] st Contact Info) Description 08/04/2024 1:00 PM MUSHROOM SPAWN MAKER Appointment Randy Hall [facility] Infusion Center 2nd Fl [address] [place] [address] Aviva Humphries MD [address] [facility] [address] [place] [address] Infusion Chair 5, 2nd Floor Hall 08/25/2024 1:00 PM MUSHROOM SPAWN MAKER Office Visit [facility] Gynecologic Oncology Hall [address] [facility] [address] [place] [address] Edilia Pettit NP [address] [facility] [address] [place] [address] 08/25/2024 1:30 PM MUSHROOM SPAWN MAKER Appointment Randy Hall [facility] Infusion Center 2nd Fl [address] [place] [address] Aviva Humphries MD [address] [facility] [address] [place] [address] Infusion Chair 1, 2nd Floor Hall 09/01/2024 10:45 AM MUSHROOM SPAWN MAKER Appointment [facility] [address] [place] [address] [id number] Edilia Pettit, CHELY [address] [address] [place] [address] documented as of this encounter Visit Diagnoses Not on filedocumented in this encounter Care Teams Disulfurizer Tender Relationship Specialty Start Date End Date Shilo Soares MD [address] [facility] 2 [place] [address] PCP - General Internal Medicine 04/24/23 documented as of this encounter
--- OUTSIDE RECORDS SUMMARY | 2024-07-26 23:59 | XMS_ITS | Encounter Summary ---
Author Organization [facility] Address [address] [place] [address] Care Team Providers Care Manager Private Name Role Phone Shilo Soares MD Primary Care Provider [phone] Encounter Details Date Type Department Care Team (Late st Contact Info) Description 07/05/2023 External Device Data STL ABSTRACTION Provider, Abstract [...] st Contact Info) Description 08/04/2024 1:00 PM THEATRICAL SCENIC DESIGNER Appointment Randy Hall [facility] Infusion Center 2nd Fl [address] [place] [address] Aviva Humphries MD [address] [facility] [address] [place] [address] Infusion Chair 5, 2nd Floor Hall 08/25/2024 1:00 PM THEATRICAL SCENIC DESIGNER Office Visit [facility] Gynecologic Oncology Hall [address] [facility] [address] [place] [address] Edilia Pettit NP [address] [facility] [address] [place] [address] 08/25/2024 1:30 PM THEATRICAL SCENIC DESIGNER Appointment Randy Hall [facility] Infusion Center 2nd Fl [address] [place] [address] Aviva Humphries MD [address] [facility] [address] [place] [address] Infusion Chair 1, 2nd Floor Hall 09/01/2024 10:45 AM THEATRICAL SCENIC DESIGNER Appointment [facility] Nuclear Medicine [address] [place] [address] [id number] Edilia Pettit, CHELY [address] [facility] [address] [place] [address] documented as of this encounter Visit Diagnoses Not on filedocumented in this encounter Care Teams Manager Private Relationship Specialty Start Date End Date Shilo Soares MD [address] [facility] 2 [place] [address] PCP - General Internal Medicine 04/24/23 documented as of this encounter
--- OUTSIDE RECORDS SUMMARY | 2024-07-26 23:59 | XMS_ITS | Encounter Summary ---
Author Organization [facility] Address [address] [place] [address] Care Team Providers Care Power Generation Plant Operator Name Role Phone Shilo Soares MD Primary Care Provider [phone] Encounter Details Date Type Department Care Team (Late st Contact Info) Description 07/20/2023 External Device Data STL ABSTRACTION Provider, Abstract [...] st Contact Info) Description 08/04/2024 1:00 PM ELECTRIC TRIPPER MACHINE OPERATOR Appointment Randy Hall [facility] Infusion Center 2nd Fl [address] [place] [address] Aviva Humphries MD [address] [facility] [address] [place] [address] Infusion Chair 5, 2nd Floor Hall 08/25/2024 1:00 PM ELECTRIC TRIPPER MACHINE OPERATOR Office Visit [facility] Gynecologic Oncology Hall [address] [facility] [address] [place] [address] Edilia Pettit NP [address] [facility] [address] [place] [address] 08/25/2024 1:30 PM ELECTRIC TRIPPER MACHINE OPERATOR Appointment Randy Hall [facility] Infusion Center 2nd Fl [address] [place] [address] Aviva Humphries MD [address] [facility] [address] [place] [address] Infusion Chair 1, 2nd Floor Hall 09/01/2024 10:45 AM ELECTRIC TRIPPER MACHINE OPERATOR Appointment [facility] [address] [place] [address] [id number] Edilia Pettit, CHELY [address] [facility] [address] [place] [address] documented as of this encounter Visit Diagnoses Not on filedocumented in this encounter Care Teams Power Generation Plant Operator Relationship Specialty Start Date End Date Shilo Soares MD [address] [facility] 2 [place] [address] PCP - General Internal Medicine 04/24/23 documented as of this encounter
--- OUTSIDE RECORDS SUMMARY | 2024-07-26 23:59 | XMS_ITS | Encounter Summary ---
Author Organization [facility] Address [address] [place] [address] Care Team Providers Care Bar Tender Name Role Phone Shilo Soares MD Primary Care Provider [phone] Encounter Details Date Type Department Care Team (Late st Contact Info) Description 07/27/2023 External Device Data STL ABSTRACTION Provider, Abstract [...] st Contact Info) Description 08/04/2024 1:00 PM DOG HAIR CLIPPER Appointment Randy Hall [facility] Infusion Center 2nd Fl [address] [place] [phone] Aviva Humphries MD [address] [facility] [address] [place] [address] Infusion Chair 5, 2nd Floor Hall 08/25/2024 1:00 PM DOG HAIR CLIPPER Office Visit [facility] Gynecologic Oncology Hall [address] [facility] [address] [place] [address] Edilia Pettit NP [address] [facility] [address] [place] [address] 08/25/2024 1:30 PM DOG HAIR CLIPPER Appointment Randy Hall [facility] Infusion Center 2nd Fl [address] [place] [address] Aviva Humphries MD [address] [facility] [address] [place] [address] Infusion Chair 1, 2nd Floor Hall 09/01/2024 10:45 AM DOG HAIR CLIPPER Appointment [facility] [address] [place] [address] [id number] Edilia Pettit, CHELY [address] [address] [place] [address] documented as of this encounter Visit Diagnoses Not on filedocumented in this encounter Care Teams Bar Tender Relationship Specialty Start Date End Date Shilo Soares MD [address] [facility] 2 [place] [address] PCP - General Internal Medicine 04/24/23 documented as of this encounter
--- OUTSIDE RECORDS SUMMARY | 2024-07-26 23:59 | XMS_ITS | Encounter Summary ---
Author Organization [employer] Address [address] [place] [address] Care Team Providers Care Employee Service Officer Name Role Phone Shilo Soares MD Primary Care Provider [phone] Encounter Details Date Type Department Care Team (Latest Contact Info) Description 07/09/2023 8:00 AM HIM SPECIALIST - 07/09/2023 11:59 PM [facility] Hospital Encounter Randy Hall Cancer [facility] [address] [place] [address] Barb Hdye MD [address] [facility] [place] [address] Discharge Disposition: Home or Self Care Social [...] Sig Dispensed Refills Start Date End Date Advair Diskus 250-50 mcg/dose disk inhaler 1 [...] bedtime. 02/26/2021 fluticasone propionate (FLONASE) 50 mcg/spray [employer], Suspension nasal inhaler Administer 2 Sprays in each nostril daily. omega-3 fatty acids-fish oil 300-1,000 mg Capsule Take 2 Capsules by mouth daily. lidocaine-prilocaine (EMLA) 2.5-2.5 % Cream Apply a thin layer over port site 30-45 minutes prior to chemotherapy. 30 Gram 05/22/2023 10/05/2023 cetirizine (ZyrTEC) 10 mg tablet Take 10 mg by mouth 2 times daily. 07/22/2023 documented as of this encounter Plan of Treatment Upcoming Encounters Date Type Department Care Team (Late st Contact Info) Description 08/04/2024 1:00 PM HIM SPECIALIST Appointment Randy Hall Cancer [facility] Infusion Center 2nd Fl [address] [place] [address] Aviva Humphries MD [address] [facility] [address] [facility] [place] [address] Infusion Chair 5, 2nd Floor Hall 08/25/2024 1:00 PM HIM SPECIALIST Office Visit [facility] Gynecologic Oncology Hall [address] [facility] [address] [place] [address] Edilia Pettit NP [address] [facility] [address] [place] [address] 08/25/2024 1:30 PM HIM SPECIALIST Appointment Randy Hall [facility] Infusion Center 2nd Fl [address] [place] [address] Aviva Humphries MD [address] [facility] [address] [place] [address] Infusion Chair 1, 2nd Floor [place] 09/01/2024 10:45 AM HIM SPECIALIST Appointment [facility] [address] [place] [address] [id number] Edilia Pettit, COAT EXAMINER [address] [facility] [address] [place] [address] documented as of this encounter Procedures Procedure Name Priority Date/Time Associated Diagnosis Comments DIFFERENTIAL, MANUAL Stat 07/09/2023 9:02 AM HIM SPECIALIST Malignant neoplasm of ovary, unspecified laterality CBC WITH DIFFERENTIAL Stat 07/09/2023 9:02 AM HIM SPECIALIST Malignant neoplasm of ovary, unspecified laterality URINALYSIS W/REFLEX MICROSCOPIC Stat 07/09/2023 9:02 AM HIM SPECIALIST Malignant neoplasm of ovary, unspecified laterality MAGNESIUM LEVEL Stat 07/09/2023 9:02 AM HIM SPECIALIST Malignant neoplasm of ovary, unspecified laterality COMPREHENSIVE METABOLIC PANEL Stat 07/09/2023 9:02 AM HIM SPECIALIST Malignant neoplasm of ovary, unspecified laterality CANCER ANTIGEN 125 Routine 07/09/2023 9: 01 AM HIM SPECIALIST Malignant neoplasm of ovary, unspecified laterality documented in this encounter Results * MANUAL DIFFERENTIAL (07/09/2023 9:02 AM HIM SPECIALIST) PLATELET EST. Consistent w Count 07/09/2023 9:[address] [facility] ANISOCYTOSIS 2+ /hpf 07/09/2023 9:[address] [facility] Blood Collection / Unknown 07/09/2023 9:02 AM HIM SPECIALIST 07/09/2023 9:10 AM HIM SPECIALIST Aviva Humphries MD HEMATOLOGY ORDERABLE S COM [facility] CLIA# [id number] [address] [place] [place] [address] * (ABNORMAL) URINALYSIS WITH REFLEX MICROSCOPIC (07/09/2023 9:02 AM HIM SPECIALIST) COLOR UA Yellow Pale to Dark Yellow 07/09/2023 9:41 AM [facility] - . [place] CLARITY UA Clear Clear 07/09/2023 9:41 AM [facility] - . [place] SPECIFIC GRAVITY UA 1.010 1.003 - 1.035 07/09/2023 9:41 AM [facility] - . [place] PH UA 5.0 5.0 - 8.0 07/09/2023 9:41 AM [facility] - . [facility] LEUKOCYTE ESTERASE UA 1+(A) Negative 07/09/2023 9:41 AM [facility] - . [facility] NITRITE UA Negative Negative 07/09/2023 9:41 AM [facility] [employer] - . [place] PROTEIN UA Negative Negative 07/09/2023 9:41 AM [facility] [employer] - . [facility] GLUCOSE UA Negative Negative 07/09/2023 9:41 AM [facility] [employer] - . [facility] KETONES UA Negative Negative 07/09/2023 9:41 AM [facility] - . [facility] UROBILINOGEN UA Normal <2.0 mg/dL 9:41 AM [facility] [employer] - . [facility] BILIRUBIN UA Negative Negative 07/09/2023 9:41 AM [facility] BLOOD UA 1+(A) Negative 07/09/2023 9:41 AM [facility] [employer] - . [place] WBC UA 3-5(A) 0 - 2 /hpf 07/09/2023 9:41 AM HIM SPECIALIST [employer] - . [place] RBC UA 3-5(A) 0 - 2 /hpf 07/09/2023 9:41 AM [facility] [employer] - . [place] BACTERIA UA 1+(A) Negative /hpf 07/09/2023 9:41 AM HIM SPECIALIST [employer] - . [facility] EPITHELIAL CELLS, URINE 0-5 0 - 5 /hpf 07/09/2023 9:41 AM [facility] Urine URINE SPECIMEN OBTAINED BY CLEAN CATCH PROCEDURE / Unknown Collection / Unknown 07/09/2023 9:02 AM HIM SPECIALIST 07/09/2023 9:16 AM HIM SPECIALIST Aviva Humprhies MD URINE ORDERABLES Performing Organization Address City/[facility]/ZIP Co de Phone Number [facility] Boond [facility] CLIA# [id number] [address] [place] [address] * MAGNESIUM LEVEL (07/09/2023 9:02 AM HIM SPECIALIST) MAGNESIUM 2.0 1.6 - 2.4 mg/dL 07/09/2023 9:57 AM [facility] Blood Collection / Unknown 07/09/2023 9:02 AM HIM SPECIALIST 07/09/2023 9:16 AM HIM SPECIALIST Aviva Humphries MD CHEMISTRY ORDERABLES Performing Organization Address City/[facility]/ZIP Co de Phone Number [facility] CLIA# [id number] [address] [place] [address] * (ABNORMAL) COMPREHENSIVE METABOLIC PANEL (07/09/2023 9:02 AM HIM SPECIALIST) SODIUM 140 136 - 145 mmol/L 07/09/2023 9:57 AM HIM SPECIALIST [facility] - . [facility] POTASSIUM 3.8 3.5 - 5.0 mmol/L 07/09/2023 9:57 AM HIM SPECIALIST [facility] - . [facility] CHLORIDE 105 98 - 107 mmol/L 07/09/2023 9:57 AM HIM SPECIALIST [facility] CO2 27 22 - 29 mmol/L 07/09/2023 9:57 AM HIM SPECIALIST [facility] - . [facility] CALCIUM 9.6 8.6 - 10.2 mg/dL 07/09/2023 9:57 AM HIM SPECIALIST [facility] - . [facility] BUN 7(L) 8 - 23 mg/dL 07/09/2023 9:57 AM HIM SPECIALIST [facility] CREATININE 0.62 0.51 - 0.95 mg/dL 07/09/2023 9:[address] [facility] GLUCOSE 144(H) 74 - 99 mg/dL 07/09/2023 9:[address] [facility] TOTAL PROTEIN 7.4 6.7 - 8.6 g/dL 07/09/2023 9:[address] [facility] ALBUMIN 4.0 3.5 - 5.2 g/dL 07/09/2023 9:[address] [facility] BILIRUBIN TOTAL 0.3 0.2 - 1.1 mg/dL 07/09/2023 9:[address] [facility] ALKALINE PHOSPHATASE 85 35 - 104 U/L 07/09/2023 9:[address] [facility] AST 30 <33 U/L 07/09/2023 9:[address] [facility] ALT 39(H) <34 U/L 07/09/2023 9:[address] [facility] GFR >60 >=60 mL/min/1.7 3 sq meter 07/09/2023 9:[address] [facility] Comment:eGFR calculated with 2020 CKD-EPI equation. Vegetarian diet, extremely high or low muscle mass, and may affect results. Cystatin C with Glomerular Filtration Rate is a suitable alternative for these patients. ANION GAP 8 8 - 16 mmol/L 07/09/2023 9:[address] [facility] Blood Collection / Unknown 07/09/2023 9:02 AM HIM SPECIALIST 07/09/2023 9:16 AM [facility] - 07/09/2023 9:57 AM [facility] Samples containing indocyanine green cause interferences on Total and/or Direct Bilirubin and must not be measured. Aviva Humphries MD CHEMISTRY ORDERABLES [facility] CLIA# [id number] [address] [facility] [address] [address] * (ABNORMAL) CBC WITH DIFFERENTIAL (07/09/2023 9:02 AM HIM SPECIALIST) [facility] WBC 5.7 4.0 - 9.8 K/uL 07/09/2023 9:14 AM [facility] - . [facility] RBC 3.66(L) 3.90 - 4.90 M/uL 07/09/2023 9:14 AM HIM SPECIALIST [facility] - . [facility] HEMOGLOBIN 10.2(L) 11.8 - 14.8 g/dL 07/09/2023 9:14 AM [facility] - [facility] HEMATOCRIT 31.9(L) 35.5 - 44.0 % 07/09/2023 9:14 AM [facility] - [facility] MCV 87.2 82.0 - 99.0 fL 07/09/2023 9:14 AM [facility] - [facility] MCH 27.9 27.2 - 32.6 pg 07/09/2023 9:14 AM [facility] - [facility] MCHC 32.0 31.5 - 35.5 g/dL 07/09/2023 9:14 AM [facility] - [facility] RDW 22.3(H) 11.5 - 14.5 % 07/09/2023 9:14 AM [facility] - [facility] RDW-STDEV 66.4(H) 37.1 - 48.7 fL 07/09/2023 9:14 AM [facility] PLATELETS 169 140 - 350 K/uL 07/09/2023 9:14 AM [facility] - . [facility] MPV 8.8(L) 9.3 - 12.4 fL 07/09/2023 9:14 AM [facility] - . [place] NEUTROPHILS 64 % 07/09/2023 9:14 AM [facility] LYMPHOCYTES 30 % 07/09/2023 9:14 AM [facility] - . [place] MONOCYTES 5 % 07/09/2023 9:14 AM [facility] - . [place] EOSINOPHILS 1 % 07/09/2023 9:14 AM [facility] - . [place] BASOPHILS 0 % 07/09/2023 9:14 AM [facility] IMMATURE GRANULOCYTES 0 % 07/09/2023 9:14 AM [facility]OR[facility] - . [facility] NEUTROPHIL ABSOLUTE 3.63 1.90 - 7.00 K/uL 07/09/2023 9:14 AM [facility]ORATORY [facility] - . [facility] LYMPHOCYTE ABSOLUTE 1.70 0.70 - 4.50 K/uL 07/09/2023 9:14 AM [facility]OR[facility] MONOCYTE ABSOLUTE 0.31 0.10 - 1.30 K/uL 07/09/2023 9:14 AM [facility]OR[facility] EOSINOPHIL ABSOLUTE 0.04 0.00 - 0.70 K/uL 07/09/2023 9:14 AM [facility] BASOPHILS ABSOLUTE 0.02 0.00 - 0.20 K/uL 07/09/2023 9:14 AM [facility] LABORATORY [facility]. [facility] IMMATURE GRANULOCYTES ABSOLUTE 0.02 0.00 - 0.03 K/uL 07/09/2023 9:14 AM [facility] LABORATORY [facility] Blood Collection / Unknown 07/09/2023 9:02 AM HIM SPECIALIST 07/09/2023 9:10 AM HIM SPECIALIST Aviva Humphries MD HEMATOLOGY ORDERABLE [facility]# [id number] [address] [place] [id number] * CANCER ANTIGEN 125 (07/09/2023 9:01 AM HIM SPECIALIST) CA 125 32 <35 U/mL [facility] Comment: This test was performed using the Siemens Chemiluminescent method. Values obtained from different assay methods cannot be used interchangeably. CA 125 levels, regardless of value, should not be interpreted as absolute evidence of the presence or absence of disease. Test Performed at: [facility] [address] [place], [place] ??[address] Radha Perez MD Blood 07/09/2023 9:01 AM HIM SPECIALIST 07/09/2023 9:13 AM HIM SPECIALIST Aviva Humphries MD CHEMISTRY ORDERABLES [facility] [phone] [facility] [address] [place] [address] documented in this encounter Visit Diagnoses Diagnosis Malignant neoplasm of ovary, unspecified laterality documented in this encounter Administered Medications Inactive Administered Medications - up to 3 most recent administrations Medication Order MAR Action Action Date Dose Rate Site sodium chloride flush injection 10 mL 10 mL, IV, SEE ADMIN INSTRUCTIONS, Starting on Peace 07/09/23 at 0902, Until 07/10/23 at 0326, Routine Given 07/09/2023 9:02 AM HIM SPECIALIST 10 mL documented in this encounter Care Teams Employee Service Officer Relationship Specialty Start Date End Date Shilo Soares MD [address] [place] [address] PCP - General Internal Medicine 04/24/23 documented as of this encounter
--- OUTSIDE RECORDS SUMMARY | 2024-07-26 23:59 | XMS_ITS | Encounter Summary ---
Author Organization [facility] Address [address] [place] [address] Care Team Providers Care Back Tender Name Role Phone Shilo Soares MD Primary Care Provider [phone] Encounter Details Date Type Department Care Team (Late st Contact Info) Description 07/24/2023 External Device Data STL ABSTRACTION Provider, Abstract [...] st Contact Info) Description 08/04/2024 1:00 PM HEALTHCARE FINANCIAL ANALYST Appointment Randy Hall [facility] Infusion Center 2nd Fl [address] [place] [phone] Aviva Humphries MD [address] [facility] [address] [place] [address] Infusion Chair 5, 2nd Floor Hall 08/25/2024 1:00 PM HEALTHCARE FINANCIAL ANALYST Office Visit [facility] Gynecologic Oncology Hall [address] [facility] [address] [place] [address] Edilia Pettit NP [address] [facility] [address] [place] [address] 08/25/2024 1:30 PM HEALTHCARE FINANCIAL ANALYST Appointment Randy Hall [facility] Infusion Center 2nd Fl [address] [place] [address] Aviva Humphries MD [address] [facility] [address] [place] [address] Infusion Chair 1, 2nd Floor Hall 09/01/2024 10:45 AM HEALTHCARE FINANCIAL ANALYST Appointment [facility] [address] [place] [address] [id number] Edilia Pettit, CHELY [address] [address] [place] [address] documented as of this encounter Visit Diagnoses Not on filedocumented in this encounter Care Teams Back Tender Relationship Specialty Start Date End Date Shilo Soares MD [address] [facility] [address] [place] [address] PCP - General Internal Medicine 04/24/23 documented as of this encounter
--- OUTSIDE RECORDS SUMMARY | 2024-07-26 23:59 | XMS_ITS | Encounter Summary ---
Author Organization [facility] Address [address] [place] [address] Care Team Providers Care Repair Service Clerk Name Role Phone Shilo Soares MD Primary Care Provider [phone] Reason for Visit * Reason Onset Date Comments Shingles 07/15/2023 Encounter Details Date Type Department Care Team (Late st Contact Info) Description 07/15/2023 Telephone [facility] Gynecologic Oncology Hall [email or web address] [place] [address] Aviva Humphries MD [address] [facility] [address] [place] [address] Shingles Social History Tobacco Use Types Packs/Day Years [...] Telephone Encounter - Luci Yu RN - 07/15/2023 10:40 AM CST Pt called with c/o a red, raised spot to the back of right thigh, close to her bottom. It has been itching, no oozing or blistering at this time. Pt has reported shingles to the area in the past. is aware. Pt instructed to go to urgent care or ER. Indicated understanding. ING SALES LEADER documented in this encounter Plan of Treatment Upcoming Encounters Date Type Department Care Team (Late st Contact Info) Description 08/04/2024 1:00 PM HUNTING SALES LEADER Appointment Randy [facility] Infusion Center 2nd Fl [address] [place] [address] Aviva Humphries MD [address] [facility] [address] [place] [address] Infusion Chair 5, 2nd Floor [place] 08/25/2024 1:00 PM HUNTING SALES LEADER Office Visit [facility] Gynecologic Oncology [place] [address] [facility] [address] [place] [address] Edilia Pettit, CHELY [address] [facility] [address] [place] [address] 08/25/2024 1:30 PM HUNTING SALES LEADER Appointment Randy [facility]ctor [facility] Infusion Center 2nd Fl [address] [place] [address] Aviva Humphries MD [address] [facility] [address] [place] [address] Infusion Chair 1, [address] [place] [address] 09/01/2024 10:45 AM HUNTING SALES LEADER Appointment Randy Proctor [facility] Nuclear Medicine [address] [place] [address] [id number] Edilia Pettit, CHELY [address] [facility] [address] [place] [address] documented as of this encounter Visit Diagnoses Not on filedocumented in this encounter Care Teams Repair Service Clerk Relationship Specialty Start Date End Date Shilo Soares MD [address] [facility] [address] [place] [address] PCP - General Internal Medicine 04/24/23 documented as of this encounter
--- OUTSIDE RECORDS SUMMARY | 2024-07-26 23:59 | XMS_ITS | Encounter Summary ---
Author Organization [facility] Address [address] [place] [address] Care Team Providers Care Gasoline Dragline Operator Name Role Phone Shilo Soares MD Primary Care Provider [phone] Encounter Details Date Type Department Care Team (Late st Contact Info) Description 07/04/2023 External Device Data STL ABSTRACTION Provider, Abstract [...] st Contact Info) Description 08/04/2024 1:00 PM VAT OVERHAULER Appointment Randy Hall [facility] Infusion Center 2nd Fl [address] [place] [address] Aviva Humphries MD [address] [facility] [address] [place] [address] Infusion Chair 5, 2nd Floor Hall 08/25/2024 1:00 PM VAT OVERHAULER Office Visit [facility] Gynecologic Oncology Hall [address] [facility] [address] [place] [address] Edilia Pettit NP [address] [facility] [address] [place] [address] 08/25/2024 1:30 PM VAT OVERHAULER Appointment Randy Hall [facility] Infusion Center 2nd Fl [address] [place] [address] Aviva Humphries MD [address] [facility] [address] [place] [address] Infusion Chair 1, 2nd Floor Hall 09/01/2024 10:45 AM VAT OVERHAULER Appointment [facility] [address] [place] [address] [id number] Edilia Pettit, CHELY [address] [facility] [address] [place] [address] documented as of this encounter Visit Diagnoses Not on filedocumented in this encounter Care Teams Gasoline Dragline Operator Relationship Specialty Start Date End Date Shilo Soares MD [address] [facility] [place] [address] PCP - General Internal Medicine 04/24/23 documented as of this encounter
--- OUTSIDE RECORDS SUMMARY | 2024-07-26 23:59 | XMS_ITS | Encounter Summary ---
Author Organization [facility] Address [address] [place] [address] Care Team Providers Care Heel Lift Gouger Name Role Phone Shilo Soares MD Primary Care Provider [phone] Encounter Details Date Type Department Care Team (Late st Contact Info) Description 06/26/2023 External Device Data STL ABSTRACTION Provider, Abstract [...] st Contact Info) Description 08/04/2024 1:00 PM OCCUPATIONAL THERAPY ASSISTANT Appointment Randy Hall [facility] Infusion Center 2nd Fl [address] [place] [address] Aviva Humphries MD [address] [facility] [address] [place] [address] Infusion Chair 5, 2nd Floor Hall 08/25/2024 1:00 PM OCCUPATIONAL THERAPY ASSISTANT Office Visit [facility] Gynecologic Oncology Hall [address] [facility] [address] [place] [address] Edilia Pettit NP [address] [facility] [address] [place] [address] 08/25/2024 1:30 PM OCCUPATIONAL THERAPY ASSISTANT Appointment Randy Hall [facility] Infusion Center 2nd Fl [address] [place] [address] Aviva Humphries MD [address] [facility] [address] [place] [address] Infusion Chair 1, 2nd Floor Hall 09/01/2024 10:45 AM OCCUPATIONAL THERAPY ASSISTANT Appointment [facility] [address] [place] [address] [id number] Edilia Pettit, CHELY [address] [facility] [address] [place] [address] documented as of this encounter Visit Diagnoses Not on filedocumented in this encounter Care Teams Heel Lift Gouger Relationship Specialty Start Date End Date Shilo Soares MD [address] [facility] [place] [address] PCP - General Internal Medicine 04/24/23 documented as of this encounter
--- OUTSIDE RECORDS SUMMARY | 2024-07-26 23:59 | XMS_ITS | Encounter Summary ---
Author Organization [facility] Address [address] [place] [address] Care Team Providers Care Director Phone Name Role Phone Shilo Soares MD Primary Care Provider [phone] Encounter Details Date Type Department Care Team (Late st Contact Info) Description 07/20/2023 Orders Only [facility] Gynecologic Oncology Hall [address] [facility] [address] [place] [address] Stevie Chavarria RN Malignant neoplasm of ovary, unspecified laterality (Primary Dx) Social History Tobacco Use Types Packs/Day Years Used Date Smoking Tobacco: Every Day Cigarettes 0.5 35 Smokeless Tobacco: Never Alcohol Use Standard Drinks/Week Comments Never 0 (1 standard drink = 0.6 oz pur e alcohol) socially Feeling Safe Answer Date Recorded Are you [...] as of this encounter Progress Notes * Tamia Clancy RN - 07/13/2024 2:34 PM CST Cancelled per Dr. Humphries, no longer needed. HANKER documented in this encounter Miscellaneous Notes * Addendum Note - Tamia Clancy RN - 07/13/2024 2:35 PM CSTAddended by: TAMIA CLANCY on: 07/13/2024 02:35 PM Modules accepted: Orders HANKER documented in this encounter Plan of Treatment Upcoming Encounters Date Type Department Care Team (Late st Contact Info) Description 08/04/2024 1:00 PM WOOL HANKER Appointment Randy Hall [facility] Infusion Center [facility] [address] [place] [address] Aviva Humphries MD [address] [facility] [address] [place] [phone] Infusion Chair 5, 2nd Floor Hall 08/25/2024 1:00 PM WOOL HANKER Office Visit [facility] Gynecologic Oncology [place] [address] [facility] [address] [place] [address] Edilia Pettit, CHELY [address] [facility] [address] [place] [address] 08/25/2024 1:30 PM WOOL HANKER Appointment Randy Hall [facility] Infusion Center 2nd Fl [address] [place] [address] Aviva Humphries MD [address] [facility] [address] [place] [address] Infusion Chair 1, 2nd Floor Hall 09/01/2024 10:45 AM WOOL HANKER Appointment [facility] Nuclear Medicine [address] [place] [address] [id number] Edilia Pettit, HALL DIRECTOR [address] [facility] [address] [place] [address] documented as of this encounter Visit Diagnoses Diagnosis Malignant neoplasm of ovary, unspecified laterality- Primary documented in this encounter Care Teams Director Phone Relationship Specialty Start Date End Date Shilo Soares MD [address] [place] [address] PCP - General Internal Medicine 04/24/23 documented as of this encounter
--- OUTSIDE RECORDS SUMMARY | 2024-07-26 23:59 | XMS_ITS | Encounter Summary ---
Author Organization [facility] Address [address] [place] [address] Care Team Providers Care Director Of Distance Learning Name Role Phone Shilo Soares MD Primary Care Provider [phone] Encounter Details Date Type Department Care Team (Latest Contact Info) Description 07/29/2023 1:14 PM BOOM TENDER - 07/29/2023 11:59 PM [facility] Hospital Encounter [facility] [address] [place] [address] Aviva Humphries MD [address] [place] [address] Discharge Disposition: Home or Self Care Anesthesia Record Procedure Summary Procedure Name Responsible Anesthesiologist Anesthesia Start Time Anesthesia Stop Time HYSTERECTOMY ABDOMINAL TOTAL (Abdomen) Sonny Rodrigez MD 08/06/23 1651 08/06/23 2221 Events Date Time Event Comment 08/06/2023 1203 1203 Intended Opioids 1558 AN Equip Check Anesthesia eq uipment and materials checked in accordance with local policy. 165 An Start 1655 In Room This event disp lays the In Room time documented in the Surgical Log. Deleting this event will not remove it from the log but will remove it from the Grid and Graph timeline. 1655 An Start Data 1659 Pre-Induction Immediate pre- induction anesthetic assessment performed. Vital signs as noted on graphic. 1659 An Induction 1701 Quick Note Epic not captur ing vital signs, manually entered 1703 An Intubation 1705 Anesthesia Ready 1723 Procedure Start This event d isplays the Procedure Start time documented in the Surgical Log. Deleting this event will not remove it from the log but will remove it from the Grid and Graph timeline. 2015 Quick Note Epic now captur ing Vital signs 2038 Quick Note NG tube placeme nt confirmed by surgeon 2147 Procedure Stop This event di splays the Procedure Stop time documented in the Surgical Log. Deleting this event will not remove it from the log but will remove it from the Grid and Graph timeline. 2210 An Extubation Emergence unev entful Awake, spontaneous respirations. Adequate muscle strength demonstrated Adequate tidal volume. Orapharynx suctioned. Extubated with positive pressure ventilation. 2215 an stop data 2216 Out of Room This event disp lays the Out of Room time documented in the Surgical Log. Deleting this event will not remove it from the log but will remove it from the Grid and Graph timeline. 2221 An Stop 222 Hand-off to Receiving [facility] radha Post-Anesthetic transfer of care report elements to appropriate post-anesthesia recovery environment completed in accordance with procedure. Meds * Agents No agents on file. * Blood No blood administrations on file. Lines, Drains, and Airways Type Details Placement Removal Wound 05/25/23; 1022; Righ t; neck; puncture; 08/07/23 (Not observed present) 05/25/23 1022 by Siobhan Robertson RN 08/07/23 0000 by Gisell Rahman RN Wound 05/25/23; 1022; Righ t; chest; surgical; 08/07/23 (not observed present) 05/25/23 1022 by Siobhan Robertson RN 08/07/23 0000 by Gisell Rahman RN Vascular Access Port 05/25/23; 1023; Right:; 1; tolerated well; 07/14/24; 1309; no longer indicated, removed per policy 05/25/23 1023 by Siobhan Robertson RN 07/14/24 1309 by Ashele Miller RN Peripheral IV Orientation: Anterio r, Distal, Left, Lower; Location: Arm; Device: Angiocath; Gauge: 20 gauge; Needle Length: 1 in length; Insertion Attempts: 1; Patient Tolerance: tolerated well; Removal Indication: removed per patient 08/06/23 1326 by Jory Moulton RN 08/12/23 0837 by Yolanda Marinelli, JANET Endotracheal Airway Type: ETT; Size: 7; Attempts: 1; Verification: Auscultated bilateral breath sounds, Equal chest movement, Continuous waveform capnography 08/06/231702 by Edilia Telles AA-C 08/06/232209 by Crissy Sommers CRNA NG/OG Tube Present on Admission : No; Type: [place] sump, orogastric; Size: 18 Fr; Location: mouth, center 08/06/23 170 by Crissy Sommers CRNA 08/06/23 2019 by Crissy Sommers CRNA Peripheral IV Orientation: Lower, Right; Location: Arm; Gauge: 18 gauge 08/06/23 1800 by Lucita Barboza, RN 08/12/23 1503 by Yolanda Marinelli, RN Indwelling Urethral Catheter 08/06/23; 193; No; Indwelling double lumen catheter; latex; 16 Fr; 1; 10; 10; 08/11/23; 1325 08/06/23 193 by Cally Alejandre, RN 08/11/23 132 by Chuy Wills, RN Incision 08/06/23; 1952; surgical incision; Bilateral; abdomen; 08/13/23; 0412 08/06/231952 by Cally Alejandre, RN 08/13/23 0412 by PROVIDER, DISCHARGE PATIENT NG/OG Tube Present on Admission : No; Type: [place] sump, nasogastric; Size: 18 Fr; Location: right nostril 08/06/232022 by Crissy Sommers CRNA 08/07/23 174 by Shilo Ospina, RN documented in this encounter Social History [...] Sign Reading Time Taken Comments Blood Pressure 133/80 07/29/2023 1:19 PM BOOM TENDER Pulse 100 07/29/2023 1:19 PM BOOM TENDER Temperature - - Respiratory Rate - - Oxygen Saturation 100% 07/29/2023 1:19 PM BOOM TENDER Inhaled Oxygen Concentration - - Weight 46.4 kg (102 lb 6.4 oz) 07/29/2023 1:19 P M BOOM TENDER Height 167.6 cm (5' 6 ) 07/29/2023 1:19 PM BOOM TENDER Body Mass Index 16.53 07/29/2023 1:19 PM BOOM TENDER documented in this encounter Medications at Time [...] bedtime. 02/26/2021 fluticasone propionate (FLONASE) 50 mcg/spray Gamerco, Suspension nasal inhaler Administer 2 Sprays in [...] as of this encounter Progress Notes * Jessica Lowe RN - 07/29/2023 1:31 PM CST Patient is receiving chemotherapy currently-down approx 20 pounds since dx TENDER documented in this encounter OR Notes * Anesthesia PAT Evaluation - Belkis Frederick MD - 07/29/2023 2:00 PM BOOM TENDER Pre-Procedure Anesthesiology Consultation and Evaluation 07/29/2023 2:02 PM Name: Narda Arellano Tiarra Age: 62 y.o. Sex: female CSN: [id number] Procedure: Procedure(s): HYSTERECTOMY ABDOMINAL TOTAL SALPINGO-OOPHORECTOMY LAPAROSCOPIC Surgeon: Surgeon(s): Aviva Humphries MD Allergies Allergen Reactions Penicillins Rash Ciprofloxacin Rash Advised to take: Pre-Surgery Instructions Medication Instructions loratadine (CLARITIN) 10 mg tablet Take morning of surgery with sip of water pyridoxine HCl, vitamin B6, (PYRIDOXINE, VITAMIN B6, ORAL) Hold for procedure 7 days prior to procedure cholecalciferol, vitamin D3, 350 mcg (14,000 unit) Wafer Hold for procedure 7 days prior to procedure docusate sodium (COLACE ORAL) Do not take day of surgery Advair Diskus 250-50 mcg/dose disk inhaler Use the day of surgery and bring with you. ondansetron (Zofran) 8 mg Tablet May take as needed (PRN) medication with sip of water lidocaine-prilocaine (EMLA) 2.5-2.5 % Cream May take as needed (PRN) medication with sip of water albuterol sulfate HFA 90 mcg/actuation aerosol inhaler Use the day of surgery and bring with you. atorvastatin (LIPITOR) 20 mg tablet Continue to take the evening prior to surgery, as prescribed fluticasone propionate (FLONASE) 50 mcg/spray Gamerco, Suspension nasal inhaler May use the day of surgery as prescribed omega-3 fatty acids-fish oil 300-1,000 mg Capsule Hold for procedure 7 days prior to procedure Patient Active Problem List Diagnosis Date Noted Ovarian cancer 05/13/2023 Past Medical History: Diagnosis Date Asthma Dyspnea on exertion Emphysema of lung History of chemotherapy Hyperlipidemia Malignant neoplasm 04/2023 ovarian Past Surgical History: Procedure Laterality Date HX BUNIONECTOMY Bilateral 2009 HX SECTION 1982,1985,1994 HX PORTACATH PLACEMENT Right 2022 Social History Tobacco Use Smoking status: Every Day Packs/day: 0.50 Years: 35.00 Additional pack years: 0.00 Total pack years: 17.50 Types: Cigarettes Smokeless tobacco: Never Substance Use Topics Alcohol use: Not Currently Comment: socially Family History Problem Relation Name Age of Onset Lung Cancer Father Heart Disease Father No Known Problems Mother Diabetes Brother Diabetes Sister No Known Problems Son No Known Problems Son No Known Problems Daughter Review of Systems Anesthesia History: No history of anesthetic complications. Cardiovascular: Hyperlipidemia. Exercise Tolerance: 2 flights steps no CP. Pulmonary: COPD. Asthma. Smoker. GI/Hepatic: Negative. 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 Neuro: Negative. Musculoskeletal: Negative. Endocrine/Other: Negative. Hematology/Oncology: Cancer (Ovaraian presently). Chemotherapy- prior. PHYSICAL EXAM BP 133/80 (BP Location: Left arm, Patient Position (BP): Sitting) Pulse 100 Ht 5' 6 (1.676 m) Wt 46.4 kg (102 lb 6.4 oz) LMP (LMP Unknown) SpO2 100% No BMI 16.53 kg/m?? Weight: Weight: 46.4 kg (102 lb 6.4 oz) (07/29/23 1319) Height: Ht Readings from Last 1 Encounters: 07/29/23 5' 6 (1.676 m) BMI: Body mass index is 16.53 kg/m??. Location of Exam: [facility]. General Appearance: Oriented to: person, place, time and situation. no obesity. Airway: Mallampati:II. TM distance:>3 FB. Neck ROM: Full. Mouth Opening:>3 FB. Dental: no notable dental hx Neuro: neuro exam normal Cardiovascular: Rhythm: Regular Rate: Normal cardiovascular exam normal Lungs: pulmonary exam normal and clear to auscultation Extremities: extremity exam normal LABS Lab Results Component Value Date WBC 5.7 07/09/2023 HGB 10.2 (L) 07/09/2023 HCT 31.9 (L) 07/09/2023 PLT 169 07/09/2023 MCV 87.2 07/09/2023 Lab Results Component Value Date NA 140 07/09/2023 K 3.8 07/09/2023 CL 105 07/09/2023 CO2 27 07/09/2023 CA 9.6 07/09/2023 BUN 7 (L) 07/09/2023 CREAT 0.62 07/09/2023 GLUCOSE 144 (H) 07/09/2023 ANIONGAP 8 07/09/2023 No results found for: INR , PT , PROTIMEPOC No results found for: HCGURPOC , HCGQUALUR , HCGQUAL , HCGQUANT , HCGINTACT Other Studies/Considerations Pre-Surgery Instructions Medication Instructions loratadine (CLARITIN) 10 mg tablet Take morning of surgery with sip of water pyridoxine HCl, vitamin B6, (PYRIDOXINE, VITAMIN B6, ORAL) Hold for procedure 7 days prior to procedure cholecalciferol, vitamin D3, 350 mcg (14,000 unit) Wafer Hold for procedure 7 days prior to procedure docusate sodium (COLACE ORAL) Do not take day of surgery Advair Diskus 250-50 mcg/dose disk inhaler Use the day of surgery and bring with you. ondansetron (Zofran) 8 mg Tablet May take as needed (PRN) medication with sip of water lidocaine-prilocaine (EMLA) 2.5-2.5 % Cream May take as needed (PRN) medication with sip of water albuterol sulfate HFA 90 mcg/actuation aerosol inhaler Use the day of surgery and bring with you. atorvastatin (LIPITOR) 20 mg tablet Continue to take the evening prior to surgery, as prescribed fluticasone propionate (FLONASE) 50 mcg/spray Gamerco, Suspension nasal inhaler May use the day of surgery as prescribed omega-3 fatty acids-fish oil 300-1,000 mg Capsule Hold for procedure 7 days prior to procedure Risk Scores Revised Cardiac Risk Index (RCRI): Class I Risk; Score = 0 *30 day risk for cardiac , nonfatal myocardial infarction, and nonfatal cardiac arrest- 0 predictors = 0.4%, 1 predictor = 0.9%, 2 predictors = 6.6%, Greater than 3 predictors = greater than 11%* Obstructive Sleep Apnea (KARSON): Low Risk; Score = 2 Patient is often tired Patient is over 50 years old Based on a STOP-BANG score of 0-2 the patient is deemed low risk for KARSON and there is no follow-up,education nor interventions needed. REPORT AND NECESSARY FOLLOW-UP Informed Consent: Anesthetic plan and risks discussed: patient Plan Reviewed: Anesthesia plan Discussed: General Post-procedure pain management plan not discussed with patient Instructed to abstain from smoking Medication considerations reviewed No further testing needed. DOS Recommendations: May Proceed with Surgery: Yes SHEN Herrmann ATTESTATIONS I spent 30 minutes today related to the care of this patient, including: Preparing to see the patient (e.g. review of tests), obtaining and/or reviewing separately obtainedhistory, performing an examination and/or evaluation, counseling and educating the patient/family/caregiver, documenting clinical information in the record, care coordination, decision-making regarding suitability for proceeding with surgical procedure, and independently interpreting test results I, Belkis Frederick MD, attest that I have reviewed the Advanced Practitioner's note - including the history, documented findings, assessment, and plan. I agree with the plan as documented except wherenoted. Belkis Frederick MD TENDER * Marline-OP - Jessica Lowe RN - 07/29/2023 1:40 PM CST Images from the original note were not included. PRE-PROCEDURE INSTRUCTIONS [facility]ACE [facility]ACE Name: Narda Eileen Tiarra Age: 62 y.o. Please report to the: Surgery Center - [address] [address] Date of Procedure: 08/06/23 Please follow these important instructions Discharge home care of venipuncture site. Remove your bandage (pressure dressing/Coban) after 1-3 hours or once bleeding has stopped. Avoid excessive movement of the extremity. Apply ice to site for pain/swelling. Arrive at the time your surgeon's office has instructed. You will receive a call from your surgeon's office with your arrival time. Please note, based on patient and procedure specific considerationspatients are normally told to arrive either 1.5 hours or 2 hours prior to their surgery start time.If you have not been given your arrival time 2 days before your surgery, please contact your surgeon 's office. The decision whether to stay overnight or go home will be made by the attending surgeon. PLEASE NOTIFY your surgeon promptly if you begin to feel ill prior to your surgery. A wound or rash at the surgical site or any other kind of illness may require postponing the surgery to another date for your safety. If this occurs within 24 hours of your surgery, please contact your surgeon's office and then the OR desk at [phone], which is available 02/03. *Notify the PACE department ([phone]) of any changes in your medical condition or medications. If you have any questions, call the [facility] at [phone]; Thursday-Thursday 7:30am-4:00pm Adult Fasting Instructions Outpatient and patients who will be admitted following procedure. Please read before day of procedure. Follow your surgeon's instructions regarding oral intake prior to your scheduled procedure. If no specific instructions were given from your surgeon's office; below are the guidelines from the anesthesia department: Please note, based on patient and procedure specific considerations patients are normally told to arrive either 1.5 hours or 2 hours prior to their surgery start time. If you have not yet been given your surgery start time, please contact your surgeon's office. ALL foods and non-clear liquids All solid food, all liquids you are unable to see through *See Exceptions Below STOP at midnight prior to the morning of your procedure Clear Liquids THE ONLY CLEAR LIQUIDS ALLOWED ARE: Water Gatorade or other sports/electrolyte drinks Juices: Clear Apple, white grape, cranberry (No pulp or cider) Coffee/Tea WITHOUT cream or other additive IF INSTRUCTED, CLEAR nutritional supplement drink No other clear liquids allowed including alcohol *See Exceptions Below STOP 3 hours before your scheduled procedure time: DO NOT EXCEED 1L OF ALLOWED CLEAR LIQUIDS BETWEEN MIDNIGHT AND 3 HOURS PRIOR TO YOUR PROCEDURE At midnight prior to the morning of your procedure STOP all solid foods and non- clear liquids?(all solid food, all alcohol, all liquids you are unable to see through)? May have CLEAR liquids between midnight and 3 hours prior to your procedure time.? Do not exceed 1 Liter of allowed clear liquids between midnight and 3 hours prior to your procedure? CLEAR liquids?allowed: Water, Gatorade or other sports/electrolyte drinks, Juices (clear apple, white grape, cranberry (NO PULP OR CIDER), Coffee/Tea WITHOUT cream or other additive. If instructed, clear nutritional supplement drink? *Exceptions:? Patients with End Stage Kidney Disease, gastroparesis (slow emptying of the stomach)? - Clear liquids must stop 6 hours prior to your procedure? If you are having surgery under the Enhanced Recovery After Surgery (ERAS) protocol, please disregard these instructions and follow the ERAS instructions.? If your surgeon has instructed you to stay on a clear liquid diet prior to the day of surgery, follow your surgeon???s instructions and avoid all food and non- clear liquids? If you have any questions, call the [facility] at [phone]?- Thursday-Thursday 7:30 a.m. - 4:00 p.m.? WITHIN 24 HOURS PRIOR TO SURGERY Shower (bathe) and shampoo the evening before and morning of surgery. If instructed to do so, please follow the directions on the provided soap or antibacterial soap. Before you bathe, or shower carefully read all directions and warnings on the product label. Showeror bathe with an antiseptic soap solution chosen by your surgeon, such as Chlorhexidine Gluconate (CHG) with brand names like Hibiclens.? If you are allergic to CHG, Hibiclens or Aloe. DO NOT use product.?Showering will ensure removal of bacteria and minimize risk of infection. Do not use the CHG soap on your face. Avoid getting the soap in your genital area, eyes, ears, mouth, or nose. While using the soap, if you feel itchy or experience red skin, stop using the product and immediately rinse off with water. Tell your care team about this reaction. After rinsing off the soap, do not use regular soap. After your shower, do not apply any powders, lotion, creams, deodorant, or makeup to your skin. Do not shave or remove any hair at the surgical site four days prior to surgery.? Using a clean freshly laundered dry towel pat dry after the showers each time you shower.? Sleep inclean freshly laundered sleepwear and bed linens. DO NOT WEAR JEWELRY (rings, earrings, and body piercings), wigs, or hair pieces to the hospital. We recommend patients abstain from SMOKING or VAPING TOBACCO / NICOTINE / MEDICAL MARIJUANA for as long as possible prior to surgery. DO NOT SMOKE, VAPE OR USE any TOBACCO / NICOTINE/ MEDICAL MARIJUANA PRODUCTS (smoking,?oral,?edibleproducts, ointments, tinctures and concentrates)?on the day of your procedure. DAY OF SURGERY INSTRUCTIONS YOU WILL NEED A RESPONSIBLE ADULT FAMILY MEMBER OR FRIEND WITH YOU UPON DISCHARGE. YOUR SURGERY MAYBE CANCELLED IF YOU DO NOT HAVE A RESPONSIBLE ADULT TO TAKE YOU HOME. It is highly suggested you have a responsible adult with you overnight after receiving anesthesia. WEAR comfortable, loose-fitting clothes to the hospital that will fit over dressings after your surgery. WEAR GLASSES instead of contact lenses to the hospital; bring a case for glasses, dentures, and hearing aids as you will be asked to remove these items before your surgery. BRING your insurance cards and semi driver's license or photo ID. DO NOT BRING VALUABLES or large amounts of sheridan with you to the hospital. BRING any medical devices you need to the hospital, including remotes for stimulators, CPAP, BIPAP,or WOUND VAC machines. Surgical times are estimates and can vary depending on numerous factors. Expect a minimum post-op recovery of 1 hour. The medical staff will provide updates to family and/or friends as appropriate. For surgical procedures, patient may be allowed two adult visitors. Special considerations may be allowed for pediatric patients under the age of 18 years. During your hospital stay you will receive a personal passcode to help protect your health information. This will be a number that you may share with anyone you choose to receive your protected health information (PHI). Family and friends will need to ask for you by name and use the passcode beforeyour care team can share information, either in person or by phone. Please ask those who have your passcode to protect it. Obstructive Sleep Apnea Obstructive sleep apnea is a common and serious sleep disorder that causes you to stop breathing during sleep. The airway repeatedly becomes blocked, limiting the amount of air that reaches your lungs. When this happens, you may snore loudly or make choking noises as you try to breathe. Your brain and body becomes oxygen deprived and you may wake up. This may happen a few times a night, or in more severe cases, several hundred times a night. Sleep apnea can make you wake up in the morning feeling tired or unrefreshed even though you have had a full night of sleep. During the day, you may feel fatigued, have difficulty concentrating or you may even unintentionally fall asleep. This is because your body is waking up numerous times throughout the night, even though you might not be conscious of each awakening. The lack of oxygen your body receives can have negative long-term consequences for your health. This includes: ?? High blood pressure ?? Heart disease including heart attack, abnormal heart rhythms and heart failure ?? Stroke ?? Pre-diabetes and diabetes ?? Depression, memory problems ?? Drowsy driving and car accidents You were screened for Obstructive Sleep Apnea (KARSON) using the STOP-BANG scale. Sleep Apnea may impact your health during and after your anesthesia. Just as importantly, undiagnosed or untreated KARSON can have a negative impact on your overall health. Your screening indicates that you are: 0-2 at low risk for KARSON. We don't feel that you need to do anything based on this score but encourage you to talk to your primary care provider if you have any questions about the screening tool or KARSON. ADVANCED PLANNING FOR MEDICATION USE * Unless otherwise ordered by a member of the [facility] Staff. 1. STOP a. Seven (7) DAYS PRIOR TO SURGERY OR WHEN NOTIFIED IF < SEVEN DAYS: The use of all vitamins, herbal supplements, and other alternative substances. b. Seven (7) DAYS PRIOR TO SURGERY: The use of any UNPRESCRIBED Aspirin, Excedrin and NSAIDs which include Motrin, Ibuprofen, Aleve, and Naprosyn. CURRENT MEDICATION LIST Pre-Surgery Instructions Medication Instructions loratadine (CLARITIN) 10 mg tablet Take morning of surgery with sip of water pyridoxine HCl, vitamin B6, (PYRIDOXINE, VITAMIN B6, ORAL) Hold for procedure 7 days prior to procedure cholecalciferol, vitamin D3, 350 mcg (14,000 unit) Wafer Hold for procedure 7 days prior to procedure docusate sodium (COLACE ORAL) Do not take day of surgery Advair Diskus 250-50 mcg/dose disk inhaler Use the day of surgery and bring with you. ondansetron (Zofran) 8 mg Tablet May take as needed (PRN) medication with sip of water lidocaine-prilocaine (EMLA) 2.5-2.5 % Cream May take as needed (PRN) medication with sip of water albuterol sulfate HFA 90 mcg/actuation aerosol inhaler Use the day of surgery and bring with you. atorvastatin (LIPITOR) 20 mg tablet Continue to take the evening prior to surgery, as prescribed fluticasone propionate (FLONASE) 50 mcg/spray Gamerco, Suspension nasal inhaler May use the day of surgery as prescribed omega-3 fatty acids-fish oil 300-1,000 mg Capsule Hold for procedure 7 days prior to procedure FAQs about Surgical Site Infections What is a Surgical Site Infection (SSI)? A surgical site infection is an infection that occurs after a surgery in the part of the body wherethe surgery took place. Most patients who have surgery do not develop an infection. However, infections develop in about 1 to 3 out of every 100 patients who have surgery. Some of the common symptomsof a surgical site infection are: Redness and pain around the area where you had surgery Drainage of cloudy fluid from your surgical wound Fever Can SSI be treated? Yes. Most surgical site infections can be treated with antibiotics. The antibiotic given to you depends on the bacteria (germs) causing the infection. Sometimes patients with SSI also need another surgery to treat infection. What are some of the things that hospitals are doing to prevent SSIs? To prevent SSIs, doctors, nurses, and other healthcare providers: Clean their hands and arms up to their elbows with antiseptic agent just before the surgery. Clean their hands with soap and water or an alcohol-based hand rub before and after caring for eachpatient. May remove some of your hair immediately before surgery using electric clippers if the hair is in the same area where the procedure will occur. They should not shave you with a razor. Wear special hair covers, mask, gowns, and gloves during surgery to keep the surgery area clean. Give you antibiotics before your surgery starts. In most cases, you should get antibiotics within 60 minutes before the surgery starts and the antibiotics should be stopped within 24 hours after surgery. Clean the skin at the site of your surgery with a special soap that kills germs What can I do to help prevent SSIs? Before your surgery: Tell your doctor and other medical problems you may have. Health problems such as allergies, diabetes, and obesity could affect your surgery and your treatment. Quit smoking. Patients who smoke get more infections. Talk to your doctor about how you can quit before your surgery. Do not shave near where you will have surgery. Shaving with a razor can irritate your skin and makeit easier to develop an infection. At the time of your surgery: Speak up if someone tries to shave you with a razor before surgery. Ask why you need to be shaved and talk with your surgeon if you have any concerns. Ask if you will get antibiotics before surgery. After your surgery: Make sure that your healthcare providers clean their hands before examining you, either with soap and water or an alcohol-based hand rub. If you do not see your providers clean their hands, please ask them to do so. Family and friends who visit you should not touch the surgical wound or dressings. Family and friends should clean their hands with soap and water or an alcohol- based hand rub beforeand after visiting you. If you do not see them clean their hands, ask them to clean their hands. What do I need to do when I go home from the hospital? Before you go home, your doctor or nurse should explain everything you need to know about taking care of your wound. Make sure you understand how to care for your wound before you leave the hospital. Always clean your hands before and after caring for your wound. Before you go home, make sure you know who to contact if you have questions or problems after you get home. If you have any symptoms of an infection, such as redness and pain at the surgery site, drainage, or fever, call your doctor immediately. If you have additional questions, please ask your doctor or nurse. Having Surgery? Enhancing Nutrition Before Surgery Can Make a Difference!! Studies have shown that enhancing nutrition prior to surgery plays an important role in a healthierand faster recovery. Surgery adds stress to the body that can result in increased protein and energy needs, unintended weight loss, inflammation, and the lower ability to fight off infections. Consuming a well- balanced diet before surgery, along with the use of oral nutritional drinks can help to support your immune health, help to maintain your strength, and lead to a faster recovery. Follow theguidelines below to help improve your nutritional status before and after surgery. Continue to follow all guidelines provided by the [facility] which includes stopping all vitamins and herbal supplements one week (7 days) prior to surgery. Eat a Well-Balanced Diet: You don???t need to follow a complicated diet prior to surgery to improve your nutrition. Instead, focus on eating a healthy balanced diet filled with a variety of foods from all the food groups. Aim for 3 well balanced meals and between meals snacks daily. Refer to ChooseMyPlate.gov for healthy eating guidelines. Eating adequate protein is essential prior to surgery. Try incorporating lean protein sources or plant-based protein at all your meals. Healthy proteins include fish, chicken, lean beef, eggs, beans,lentils, soy, tofu, and nuts. Dairy products are a great way to increase your protein as well as calcium intake. Choose from skimor 1% milk, low-fat yogurts, low fat cottage cheese. Increase intake of fruits and vegetables. Eat a variety of colorful fruits and vegetables that fillup at least half of your plate. Some high nutrient fruits and vegetables include berries, oranges, bananas, avocados, leafy greens, carrots, broccoli, sweet potatoes, and galan peppers. Choose more whole grains such as brown rice, barley, quinoa, oats, or whole grain breads. Increase intake of healthy fats. Choose whole food sources of fats such as nuts, shailesh seeds, flaxseed, walnuts, avocado. Choose other heart healthy fats such as olive oil instead of butter. Limit sodium intake by seasoning with fresh herbs and spices instead of salt. Decrease intake of processed foods such as canned vegetables, frozen meals, fast foods, and packaged snack foods. Limit alcohol to no more than 2 serving a day for men and 1 serving a day for women (1 servin oz. beer, 8 oz. malt liquor, 5 oz. wine, 1.5 oz. distilled spirits. Between Meal Snacks: Having snacks between meals is a great way to increase your protein and nutritional intake. Try keeping healthy and quick snacks on hand, as they require little or no preparation time! Great snack ideas include hard boiled eggs, cheese and crackers, string cheese, nut butters with crackers or bread, nuts, yogurt, cereals with low fat milk, oatmeal, fruit smoothies, protein bars, high protein oral nutritional drinks. Stay Well Hydrated: Drinking adequate water is essential in keeping you hydrated and reducing the risk of constipation. Aim for at least 64 ounces of non-caffeinated liquids daily. Water is best, but all types of liquidcontribute to your fluid intake such as broth, soup, milk, juice, tea, and coffee. (Continue with previously prescribed fluid restrictions for other medial concerns) Nutrition Oral Drinks Before and After Surgery: Surgery can create unique nutritional needs that sometimes can???t be met with a normal well-balanced diet alone. Adding high protein nutritional drinks into your diet prior to surgery may help to meet these added surgical needs and aid in a faster recovery. More recent research has also shown thatadding specific immune enhancing nutrients, such as Arginine and Fhqnj-4-Nfgqv Acids, may result infewer surgical complications and a quicker recovery. These specific immune enhancing nutrients can be found in the oral nutritional drinks such as Ensure Surgery and Nestle Impact Advanced Recovery. For patients with diabetes or renal disease, please refer to your physician prior to following the below oral nutritional drink guidelines. Reminder for all patients: Stop all vitamins and herbal supplements one week (7 days) prior to surgery. Oral Nutritional Drink Guidelines Prior to Surgery: Consume 2-3 immune enhancing drinks or high protein nutritional drinks daily for 5-7 days before surgery. Immune enhancing drinks include Ensure Surgery, Nestle Impact Advanced Recovery. High protein nutritional drinks should contain 18 gram of protein or more per serving. Examples include Boost High Protein, Ensure Max, Premier Protein to name a few. Check for generic or store brandoptions such as Equate. Supplements available for purchase at [facility] - Ensure Surgery, Ensure Max, Ensure Enlive, (phone: [phone]) Supplements are also available for purchase at [employer], [employer] and many other grocery stores and pharmacies. Day of Surgery Guidelines. Follow the Adult Fasting Instructions provided to you by the [facility] for your specific surgery. For questions regarding your day of surgery diet or fasting guidelines please call the [facility] at [phone], Thursday-Thursday. 7:30 a.m. to 4 p.m. Oral Nutritional Drink Guidelines After Surgery: When able to start taking a diet after surgery, resume taking 2-3 high protein nutritional drinks (immune enhancing or other high protein nutritional drinks) for 5-7 days. Depending on your nutritional status before or after surgery, you may benefit from continuing with an oral nutritional drink for at least 30 days. A registered dietitian may visit you if admitted to the hospital and help you to determine the typeand duration of the oral nutritional drink to help with your recovery. Questions for a Registered Dietitian: Call [phone] PLEASE NOTIFY your surgeon promptly if you begin to feel ill prior to your surgery. A wound or rash at the surgical site or any other kind of illness may require postponing the surgery to another date for your safety. If this occurs within 24 hours of your surgery, please contact your surgeon's office and then the OR desk at [phone], which is available 02/03. TENDER * Marline-OP - Jessica Lowe RN - 07/29/2023 1:40 PM CST Images from the original note were not included. [facility] Routine Orders Protocol [facility] Approved by: [facility] - Medical Executive Committee Approval Date: 12/25/2022 ORDERS ARE ENTERED ???PER PROTOCOL?? Enter the protocol in the patient's electronic health record using smartphrase: .anesthesiologyroutineordersprotocol Nursing Orders: Monitoring Obtain and record vital signs on admission to pre-operative area Continuous vital signs (Non-invasive blood pressure, pulse oximetry and cardiac monitoring) for: All patients in the [facility] OR All inpatients, or patients transferred from the ED Patients for Acute Pain Service procedures Patients currently taking beta-blockers Patients diagnosed with/or at risk for sleep apnea (e.g., STOP-BANG greater than or equal to 3) Warming Monarch forced air warming in accordance with the ST Perioperative Policy Glycemic Control POC glucose for diabetics Notify provider for any POC glucose or serum glucose less than 70 mg/dL. If POC Glucose results arecritical, do not delay treatment. If appropriate, may confirm POC with: Nursing Only [id number] (this lab can be obtained at no cost to the patient when confirming a critical high or Critical low POC glucose. See hypoglycemia protocol for additional orders if needed: [facility] Adult Perianesthesia HYPOglycemia Protocol Notify any provider for any POC glucose or serum glucose greater than 180 mg/dL When receiving report on an inpatient, confirm if patient is receiving dextrose containing fluids to prevent hypoglycemia. Communicate with the anesthesiologist and request glucose containing fluids be continued or added to intraoperative/intraprocedure fluids. POC glucose within 30 minutes of discharge or transfer to another unit (the time-based intra-procedure POC check may be deferred during short procedures at the discretion of the provider. Laboratory Orders: Laboratory exams obtained within 3 months prior to surgery are acceptable if normal, or at baseline. Continue any test ordered in [facility] P[facility] Urine Test (POC7) (if unable to obtain urine, may obtain serum [id number]) All patients with the potential for childbearing (menarche to menopause) Hematocrit/Hemoglobin ([id number]) Cases of expected major blood loss in patients of any age as evidenced by an order for Type and Cross or Type and Screen. PT/INR (Lab 320) should be drawn day of surgery for patients: Taking Warfarin (Coumadin) or who have had Warfarin (Coumadin) discontinued within prior 7 days BMP (Lab15) Patients with: Diabetes Renal disease Dialysis patients: Day of Surgery; If dialysis on day of surgery, post-dialysis Patients taking the following medications: Digoxin Diuretics Steroids BUN (Odx364)/ Serum Cr (Lab66) When use of intravenous contrast dye is planned Liver function panel (Lab20) in any patient with: Jaundice, or active liver disease EKG (EKG) 12 lead EKG obtained within the last 3 months for the following: Known cardiac disease (CAD, CHF, moderate or worse valvular disease) Patients undergoing cardiac, thoracic, or vascular surgery Presence of CIED (Cardiovascular Implantable Electronic Device) Cardiac Symptoms: Angina, dysrhythmia, palpitations, SOB, PND, S3 Moderate or greater risk surgery with any of the following: Stroke/TIA/CVD, PAD/PVD, CKD (Cr>2), DM, or Drugs or toxins that alter conduction (e.g., digoxin, cocaine, MAOIs, antiarrhythmics, antipsychotics, TCAs) Additional testing maybe indicated based upon patient co-morbidities and planned procedure. Medication Orders: Intravenous Line Place #18 gauge IV in non-dominant, non-operative or not otherwise excluded upper extremity unless otherwise ordered by anesthesiologist. (Preferred minimum IV gauge: 16 or greater in [facility], 18 or greater in Main OR, 20 or greater in non-OR settings). For patients with difficult IV access notify anesthesiologist, after nursing attempt(s) have been made per policy For patients with difficult IV access and an implanted infusion port, access the port in accordancewith nursing policies. Local Anesthetic for use to initiate IV line 2%Lidocaine 0.3mL intradermal ONE TIME to numb area of IV catheter insertion PRN. IV Fluid Adult patients (age 18 years or greater) Lactated ringer's solution to infuse at 150mL/hr, may discontinue upon discharge from OR area If patient has a serum creatinine >2 or history of renal failure, RN shall change fluid to NS at10mL/hr ORAL MEDICATIONS: RN to Verify with patient if/when these medications were last taken. Please notify provider if patient has taken these medications within 6 hours of admissions to verify if meds should be given and if so the correct dosing. Any oral medications: to be administered with sips water Acetaminophen for Adult patients 1000 mg po pre-procedure once If unable to take tablet and those presenting for gastrectomy/gastric bypass, give acetaminophen Oral Solution (325mg/10.15ml) 975 mg po pre-procedure once For patients who have recently received acetaminophen please decrease the acetaminophen dose above by the amount of acetaminophen received within the prior 6 hours. Anti-inflammatory Medication - CELECOXIB Protocol Exclusions: Intracranial surgery, spine fusion surgery, nephrectomy, cardiac, vascular surgery or urologic surgery and patients with UT/stent within 6 months, GFR <30 mL/min/1.73 sq meter, age > 90 yo HOLD CELECOXIB IF PREOPERATIVE TORADOL ORDERED For patients with GFR > 60 mL/min/1.73 sq meter and < 70 yo 400 mg pre-procedure once For patients with GFR between 30-60 mL/min/1.73 sq meter or > 70 yo 200 mg pre- procedure once Contact responsible anesthesiologist for patients scheduled for urgent/emergent intra-abdominal surgery, those with jaundice, or active liver disease, active nausea/vomiting, or the inability to takepo Blood Bank For surgical procedures, prepare blood per [facility] Blood Bank Orders and Patient Identification for Blood Products Policy unless additional blood or blood products have been ordered by a provider, then follow provider order. TENDER documented in this encounter Plan of Treatment Upcoming Encounters Date Type Department Care Team (Late st Contact Info) Description 08/04/2024 1:00 PM BOOM TENDER Appointment [facility] Infusion Center 2nd Fl [address] [place] [id number] Aviva Humphries MD [address] [facility] [address] [place] [address] Infusion Chair 5, 2nd Floor Hall 08/25/2024 1:00 PM BOOM TENDER Office Visit [facility] Gynecologic Oncology Hall [address] [facility] [address] [place] [address] Edilia Pettit NP [address] [facility] [address] [place] [address] 08/25/2024 1:30 PM BOOM TENDER Appointment [facility] Infusion Center 2nd Fl [address] [place] [address] Aviva Humphries MD [address] [facility] [address] [facility] [place] [address] Infusion Chair 1, 2nd Floor Hall 09/01/2024 10:45 AM BOOM TENDER Appointment Randy [facility] Nuclear Medicine [address] [place] [id number] Edilia Pettit, CHELY [address] [address] documented as of this encounter Procedures Procedure Name Priority Date/Time Associated Diagnosis Comments CBC WITHOUT DIFFERENTIAL Routine 07/29/2023 1:33 PM BOOM TENDER TYPE AND SCREEN Routine 07/29/2023 1:33 PM BOOM TENDER BASIC METABOLIC PANEL Routine 07/29/2023 1:33 PM BOOM TENDER documented in this encounter Results * (ABNORMAL) CBC WITHOUT DIFFERENTIAL (07/29/2023 1:33 PM BOOM TENDER) WBC 3.6(L) 4.0 - 9.8 K/uL 07/29/2023 2:53 PM [facility] RBC 3.32(L) 3.90 - 4.90 M/uL 07/29/2023 2:53 PM [facility] HEMOGLOBIN 9.7(L) 11.8 - 14.8 g/dL 07/29/2023 2:53 PM [facility] HEMATOCRIT 30.9(L) 35.5 - 44.0 % 07/29/2023 2:53 PM [facility] MCV 93.1 82.0 - 99.0 fL 07/29/2023 2:53 PM [facility] MCH 29.2 27.2 - 32.6 pg 07/29/2023 2:53 PM [facility] MCHC 31.4(L) 31.5 - 35.5 g/dL 07/29/2023 2:53 PM [facility] PLATELETS 236 140 - 350 K/uL 07/29/2023 2:53 PM [facility] MPV 9.6 9.3 - 12.4 fL 07/29/2023 2:53 PM [facility] RDW 25.5(H) 11.5 - 14.5 % 07/29/2023 2:53 PM [facility] RDW-STDEV 78.9(H) 37.1 - 48.7 fL 07/29/2023 2:53 PM [facility] Members[employer]ite [facility] Blood Venipuncture / Unknown 07/29/2023 1:33 PM BOOM TENDER 07/29/2023 2:43 PM BOOM TENDER Charly GOTTI HEMATOLOGY ORDERABLES [facility] CLIA# [id number] [address] [facility] [place] [address] * (ABNORMAL) BASIC METABOLIC PANEL (07/29/2023 1:33 PM BOOM TENDER) SODIUM 143 136 - 145 mmol/L 07/29/2023 3:30 PM [facility] POTASSIUM 4.1 3.5 - 5.0 mmol/L 07/29/2023 3:30 PM [facility] CHLORIDE 106 98 - 107 mmol/L 07/29/2023 3:30 PM [facility] CO2 26 22 - 29 mmol/L 07/29/2023 3:30 PM [facility] CALCIUM 9.5 8.6 - 10.2 mg/dL 07/29/2023 3:30 PM [facility] BUN 9 8 - 23 mg/dL 07/29/2023 3:30 PM [facility] CREATININE 0.67 0.51 - 0.95 mg/dL 07/29/2023 3:30 PM [facility] GLUCOSE 109(H) 74 - 99 mg/dL 07/29/2023 3:30 PM [facility] [employer] [facility] GFR >60 >=60 mL/min/1.7 3 sq meter 07/29/2023 3:30 PM [facility] [employer] [facility] Comment:eGFR calculated with 2020 CKD-EPI equation. Vegetarian diet, extremely high or low muscle mass, and may affect results. Cystatin C with Glomerular Filtration Rate is a suitable alternative for these patients. ANION GAP 11 8 - 16 mmol/L 07/29/2023 3:30 PM [facility] Blood Venipuncture / Unknown 07/29/2023 1:33 PM BOOM TENDER 07/29/2023 2:43 PM BOOM TENDER Charly GOTTI CHEMISTRY O RDERABLES [facility] Membersuite [facility] CLIA# [id number] [address] [facility] [place] [address] * TYPE AND SCREEN (07/29/2023 1:33 PM BOOM TENDER) ABO GROUP A 07/29/2023 4:07 PM BOOM TENDER [employer] LABORATORY SERVICES -- .JEFFRY RH (D) TYPE Positive 07/29/2023 4:07 PM BOOM TENDER [employer] LABORATORY SERVICES -- .JEFFRY ANTIBODY SCREEN Negative 07/29/2023 4:07 PM BOOM TENDER [employer] [facility]ORATORY SERVICES -- .JEFFRY Blood Venipuncture / Unknown 07/29/2023 1:33 PM BOOM TENDER 07/29/2023 2:43 PM BOOM TENDER Aviva Humphries MD BLOOD BANK ORDERABLE S [facility] SERVICES -- [facility] CLIA# [id number] [address] [facility] [place] [address] documented in this encounter Visit Diagnoses Not on filedocumented in this encounter Care Teams Director Of Distance Learning Relationship Specialty Start Date End Date Shilo Soares MD [address] [place] [address] PCP - General Internal Medicine 04/24/23 documented as of this encounter
--- OUTSIDE RECORDS SUMMARY | 2024-07-26 23:59 | XMS_ITS | Encounter Summary ---
Author Organization [facility] Address [address] [place] [address] Care Team Providers Care Coning Machine Operator Name Role Phone Shilo Soares MD Primary Care Provider [phone] Encounter Details Date Type Department Care Team (Late st Contact Info) Description 07/03/2023 External Device Data STL ABSTRACTION Provider, Abstract [...] st Contact Info) Description 08/04/2024 1:00 PM STOREROOM KEEPER Appointment [facility] Infusion Center 2nd Fl [address] [place] [phone] Aviva Humphries MD [address] [facility] [address] [place] [address] Infusion Chair 5, 2nd Floor Hall 08/25/2024 1:00 PM STOREROOM KEEPER Office Visit [facility] Gynecologic Oncology Hall [address] [facility] [address] [place] [address] Edilia Pettit NP [address] [facility] [address] [place] [address] 08/25/2024 1:30 PM STOREROOM KEEPER Appointment Randy [facility] Infusion Center 2nd Fl [address] [place] [phone] Aviva Humphries MD [address] [facility] [address] [place] [address] Infusion Chair 1, 2nd Floor Hall 09/01/2024 10:45 AM STOREROOM KEEPER Appointment [facility] [address] [place] [address] [id number] Edilia Pettit, CHELY [address] [facility] [place] [address] documented as of this encounter Visit Diagnoses Not on filedocumented in this encounter Care Teams Coning Machine Operator Relationship Specialty Start Date End Date Shilo Soares MD [address] [facility] [address] [place] [address] PCP - General Internal Medicine 04/24/23 documented as of this encounter
--- OUTSIDE RECORDS SUMMARY | 2024-07-26 23:59 | XMS_ITS | Encounter Summary ---
Author Organization [facility] Address [address] [place] [address] Care Team Providers Care Radiology Services Manager Name Role Phone Shilo Soares MD Primary Care Provider [phone] Encounter Details Date Type Department Care Team (Late st Contact Info) Description 07/15/2023 External Device Data STL ABSTRACTION Provider, Abstract [...] st Contact Info) Description 08/04/2024 1:00 PM SPEEDER HAND Appointment [facility] Infusion Center 2nd Fl [address] [place] [phone] Aviva Humphries MD [address] [facility] [address] [place] [address] Infusion Chair 5, 2nd Floor Hall 08/25/2024 1:00 PM SPEEDER HAND Office Visit [facility] Gynecologic Oncology Hall [address] [facility] [address] [place] [address] Edilia Pettit NP [address] [facility] [address] [place] [address] 08/25/2024 1:30 PM SPEEDER HAND Appointment [facility] Infusion Center 2nd Fl [address] [place] [phone] Aviva Humphries MD [address] [facility] [address] [place] [address] Infusion Chair 1, 2nd Floor Hall 09/01/2024 10:45 AM SPEEDER HAND Appointment [facility] [address] [place] [address] [id number] Edilia Pettit, CHELY [address] [facility] [address] [place] [address] documented as of this encounter Visit Diagnoses Not on filedocumented in this encounter Care Teams Radiology Services Manager Relationship Specialty Start Date End Date Shilo Soares MD [address] [facility] [address] [place] [address] PCP - General Internal Medicine 04/24/23 documented as of this encounter
--- OUTSIDE RECORDS SUMMARY | 2024-07-26 23:59 | XMS_ITS | Encounter Summary ---
Author Organization [facility] Address [address] [place] [address] Care Team Providers Care Crew Leader/Control Room Operator Name Role Phone Shilo Soares MD Primary Care Provider [phone] Encounter Details Date Type Department Care Team (Late st Contact Info) Description 06/30/2023 External Device Data STL ABSTRACTION Provider, Abstract [...] st Contact Info) Description 08/04/2024 1:00 PM CHRISTIAN SCIENCE NURSE Appointment Randy Hall [facility] Infusion Center 2nd Fl [address] [place] [phone] Aviva Humphries MD [address] [facility] [address] [place] [address] Infusion Chair 5, 2nd Floor Hall 08/25/2024 1:00 PM CHRISTIAN SCIENCE NURSE Office Visit [facility] Gynecologic Oncology Hall [address] [facility] [address] [place] [address] Edilia Pettit NP [address] [facility] [address] [place] [address] 08/25/2024 1:30 PM CHRISTIAN SCIENCE NURSE Appointment Randy Hall [facility] Infusion Center 2nd Fl [address] [place] [address] Aviva Humphries MD [address] [facility] [address] [place] [address] Infusion Chair 1, 2nd Floor Hall 09/01/2024 10:45 AM CHRISTIAN SCIENCE NURSE Appointment [facility] [address] [place] [address] [id number] Edilia Pettit, CHELY [address] [facility] [address] [place] [address] documented as of this encounter Visit Diagnoses Not on filedocumented in this encounter Care Teams Crew Leader/Control Room Operator Relationship Specialty Start Date End Date Shilo Soares MD [address] [facility] 2 [place] [address] PCP - General Internal Medicine 04/24/23 documented as of this encounter
--- OUTSIDE RECORDS SUMMARY | 2024-07-26 23:59 | XMS_ITS | Encounter Summary ---
Author Organization [facility] Address [address] [place] [address] Care Team Providers Care Swim Coach Name Role Phone Shilo Soares MD Primary Care Provider [phone] Encounter Details Date Type Department Care Team (Late st Contact Info) Description 07/22/2023 External Device Data STL ABSTRACTION Provider, Abstract [...] st Contact Info) Description 08/04/2024 1:00 PM CIGAR MAKING SUPERVISOR Appointment Randy Hall [facility] Infusion Center 2nd Fl [address] [place] [address] Aviva Humphries MD [address] [facility] [address] [place] [address] Infusion Chair 5, 2nd Floor Hall 08/25/2024 1:00 PM CIGAR MAKING SUPERVISOR Office Visit [facility] Gynecologic Oncology Hall [address] [facility] [address] [place] [address] Edilia Pettit NP [address] [facility] [address] [place] [address] 08/25/2024 1:30 PM CIGAR MAKING SUPERVISOR Appointment Randy Hall [facility] Infusion Center 2nd Fl [address] [place] [address] Aviva Humphries MD [address] [facility] [address] [place] [address] Infusion Chair 1, 2nd Floor Hall 09/01/2024 10:45 AM CIGAR MAKING SUPERVISOR Appointment [facility] [address] [place] [address] [id number] Edilia Pettit, CHELY [address] [facility] [address] [place] [address] documented as of this encounter Visit Diagnoses Not on filedocumented in this encounter Care Teams Swim Coach Relationship Specialty Start Date End Date Shilo Soares MD [address] [facility] 2 [place] [address] PCP - General Internal Medicine 04/24/23 documented as of this encounter
--- OUTSIDE RECORDS SUMMARY | 2024-07-26 23:59 | XMS_ITS | Encounter Summary ---
Author Organization [facility] Address [address] [place] [address] Care Team Providers Care Vp Product Name Role Phone Shilo Soares MD Primary Care Provider [phone] Encounter Details Date Type Department Care Team (Late st Contact Info) Description 07/17/2023 External Device Data STL ABSTRACTION Provider, Abstract [...] st Contact Info) Description 08/04/2024 1:00 PM DRYING MACHINE OPERATOR PACKAGE YARNS Appointment Randy Hall [facility] Infusion Center 2nd Fl [address] [place] [address] Aviva Humphries MD [address] [facility] [address] [place] [address] Infusion Chair 5, 2nd Floor Hall 08/25/2024 1:00 PM DRYING MACHINE OPERATOR PACKAGE YARNS Office Visit [facility] Gynecologic Oncology Hall [address] [facility] [address] [place] [address] Edilia Pettit NP [address] [facility] [address] [place] [address] 08/25/2024 1:30 PM DRYING MACHINE OPERATOR PACKAGE YARNS Appointment Randy Hall [facility] Infusion Center 2nd Fl [address] [place] [address] Aviva Humphries MD [address] [facility] [address] [place] [address] Infusion Chair 1, 2nd Floor Hall 09/01/2024 10:45 AM DRYING MACHINE OPERATOR PACKAGE YARNS Appointment [facility] [address] [place] [address] [id number] Edilia Pettit, CHELY [address] [facility] [address] [place] [address] documented as of this encounter Visit Diagnoses Not on filedocumented in this encounter Care Teams Vp Product Relationship Specialty Start Date End Date Shilo Soares MD [address] [facility] 2 [place] [address] PCP - General Internal Medicine 04/24/23 documented as of this encounter
--- OUTSIDE RECORDS SUMMARY | 2024-07-26 23:59 | XMS_ITS | Encounter Summary ---
Author Organization [facility] Address [address] [place] [address] Care Team Providers Care Floor Coverings Installer Name Role Phone Shilo Soares MD Primary Care Provider [phone] Encounter Details Date Type Department Care Team (Late st Contact Info) Description 07/19/2023 External Device Data STL ABSTRACTION Provider, Abstract [...] Contact Info) Description 08/04/2024 1:00 PM DIRECTOR PUBLIC POLICY Appointment Randy Hall [facility] Infusion Center 2nd Fl [address] [place] [address] Aviva Humphries MD [address] [facility] [address] [place] [address] Infusion Chair 5, 2nd Floor Hall 08/25/2024 1:00 PM DIRECTOR PUBLIC POLICY Office Visit [facility] Gynecologic Oncology Hall [address] [facility] [address] [place] [address] Edilia Pettit NP [address] [facility] [address] [place] [address] 08/25/2024 1:30 PM DIRECTOR PUBLIC POLICY Appointment Randy Hall [facility] Infusion Center 2nd Fl [address] [place] [address] Aviva Humphries MD [address] [facility] [address] [place] [address] Infusion Chair 1, 2nd Floor Hall 09/01/2024 10:45 AM DIRECTOR PUBLIC POLICY Appointment [facility] [address] [place] [address] [id number] Edilia Pettit, CHELY [address] [facility] [address] [place] [address] documented as of this encounter Visit Diagnoses Not on filedocumented in this encounter Care Teams Floor Coverings Installer Relationship Specialty Start Date End Date Shilo Soares MD [address] [facility] 2 [place] [address] PCP - General Internal Medicine 04/24/23 documented as of this encounter
--- OUTSIDE RECORDS SUMMARY | 2024-07-26 23:59 | XMS_ITS | Encounter Summary ---
Author Organization [facility] Address [address] [place] [address] Care Team Providers Care Seismic Prospecting Observer Name Role Phone Shilo Soares MD Primary Care Provider [phone] Encounter Details Date Type Department Care Team (Late st Contact Info) Description 07/07/2023 External Device Data STL ABSTRACTION Provider, Abstract [...] st Contact Info) Description 08/04/2024 1:00 PM LEVEL GLASS FORMING MACHINE OPERATOR Appointment Randy Hall [facility] Infusion Center 2nd Fl [address] [place] [address] Aviva Humphries MD [address] [facility] [address] [place] [address] Infusion Chair 5, 2nd Floor Hall 08/25/2024 1:00 PM LEVEL GLASS FORMING MACHINE OPERATOR Office Visit [facility] Gynecologic Oncology Hall [address] [facility] [address] [place] [address] Edilia Pettit NP [address] [facility] [address] [place] [address] 08/25/2024 1:30 PM LEVEL GLASS FORMING MACHINE OPERATOR Appointment Randy Hall [facility] Infusion Center 2nd Fl [address] [place] [address] Aviva Humphries MD [address] [facility] [address] [place] [address] Infusion Chair 1, 2nd Floor Hall 09/01/2024 10:45 AM LEVEL GLASS FORMING MACHINE OPERATOR Appointment [facility] [address] [place] [address] [id number] Edilia Pettit, CHELY [address] [address] [place] [address] documented as of this encounter Visit Diagnoses Not on filedocumented in this encounter Care Teams Seismic Prospecting Observer Relationship Specialty Start Date End Date Shilo Soares MD [address] [facility] 2 [place] [address] PCP - General Internal Medicine 04/24/23 documented as of this encounter
--- OUTSIDE RECORDS SUMMARY | 2024-07-26 23:59 | XMS_ITS | Encounter Summary ---
Author Organization [facility] Address [address] [place] [address] Care Team Providers Care Automat Car Attendant Name Role Phone Shilo Soares MD Primary Care Provider [phone] Encounter Details Date Type Department Care Team (Late st Contact Info) Description 06/22/2023 External Device Data STL ABSTRACTION Provider, Abstract [...] st Contact Info) Description 08/04/2024 1:00 PM ADVERTISING MANAGER Appointment Randy Hall [facility] Infusion Center 2nd Fl [address] [place] [address] Aviva Humphries MD [address] [facility] [address] [place] [address] Infusion Chair 5, 2nd Floor Hall 08/25/2024 1:00 PM ADVERTISING MANAGER Office Visit [facility] Gynecologic Oncology Hall [address] [facility] [address] [place] [address] Edilia Pettit NP [address] [facility] [address] [place] [address] 08/25/2024 1:30 PM ADVERTISING MANAGER Appointment Randy Hall [facility] Infusion Center 2nd Fl [address] [place] [address] Aviva Humphries MD [address] [facility] [address] [place] [address] Infusion Chair 1, 2nd Floor Hall 09/01/2024 10:45 AM ADVERTISING MANAGER Appointment [facility] [address] [place] [address] [id number] Edilia Pettit, CHELY [address] [facility] [address] [place] [address] documented as of this encounter Visit Diagnoses Not on filedocumented in this encounter Care Teams Automat Car Attendant Relationship Specialty Start Date End Date Shilo Soares MD [address] [place] 2 [place] [address] PCP - General Internal Medicine 04/24/23 documented as of this encounter
--- OUTSIDE RECORDS SUMMARY | 2024-07-26 23:59 | XMS_ITS | Encounter Summary ---
Author Organization [facility] Address [address] [place] [address] Care Team Providers Care Healthcare Advisory Services Manager Name Role Phone Shilo Soares MD Primary Care Provider [phone] Encounter Details Date Type Department Care Team (Late st Contact Info) Description 07/10/2023 External Device Data STL ABSTRACTION Provider, Abstract [...] st Contact Info) Description 08/04/2024 1:00 PM COLLEGE SPORTS ASSISTANT Appointment Randy Hall [facility] Infusion Center 2nd Fl [address] [place] [address] Aviva Humphries MD [address] [facility] [address] [place] [address] Infusion Chair 5, 2nd Floor Hall 08/25/2024 1:00 PM COLLEGE SPORTS ASSISTANT Office Visit [facility] Gynecologic Oncology Hall [address] [facility] [address] [place] [address] Edilia Pettit NP [address] [facility] [address] [place] [address] 08/25/2024 1:30 PM COLLEGE SPORTS ASSISTANT Appointment Randy Hall [facility] Infusion Center 2nd Fl [address] [place] [address] Aviva Humphries MD [address] [facility] [address] [place] [address] Infusion Chair 1, 2nd Floor Hall 09/01/2024 10:45 AM COLLEGE SPORTS ASSISTANT Appointment [facility] [address] [place] [address] [id number] Edilia Pettit, CHELY [address] [place] [address] documented as of this encounter Visit Diagnoses Not on filedocumented in this encounter Care Teams Healthcare Advisory Services Manager Relationship Specialty Start Date End Date Shilo Soares MD [address] [facility] 2 [place] [address] PCP - General Internal Medicine 04/24/23 documented as of this encounter
--- OUTSIDE RECORDS SUMMARY | 2024-07-26 23:59 | XMS_ITS | Encounter Summary ---
Author Organization [facility] Address [address] [place] [address] Care Team Providers Care Material Preparation Worker Name Role Phone Shilo Soares MD Primary Care Provider [phone] Encounter Details Date Type Department Care Team (Late st Contact Info) Description 06/19/2023 External Device Data STL ABSTRACTION Provider, Abstract [...] st Contact Info) Description 08/04/2024 1:00 PM BOBTAIL DRIVER Appointment Randy Hall [facility] Infusion Center 2nd Fl [address] [place] [address] Aviva Humphries MD [address] [facility] [address] [place] [address] Infusion Chair 5, 2nd Floor Hall 08/25/2024 1:00 PM BOBTAIL DRIVER Office Visit [facility] Gynecologic Oncology Hall [address] [facility] [address] [place] [address] Edilia Pettit NP [address] [facility] [address] [place] [address] 08/25/2024 1:30 PM BOBTAIL DRIVER Appointment Randy Hall [facility] Infusion Center 2nd Fl [address] [place] [address] Aviva Humphries MD [address] [facility] [address] [place] [address] Infusion Chair 1, 2nd Floor Hall 09/01/2024 10:45 AM BOBTAIL DRIVER Appointment [facility] [address] [place] [address] [id number] Edilia Pettit, CHELY [address] [place] [address] documented as of this encounter Visit Diagnoses Not on filedocumented in this encounter Care Teams Material Preparation Worker Relationship Specialty Start Date End Date Shilo Soares MD [address] [facility] 2 [place] [address] PCP - General Internal Medicine 04/24/23 documented as of this encounter
--- OUTSIDE RECORDS SUMMARY | 2024-07-26 23:59 | XMS_ITS | Encounter Summary ---
Author Organization [facility] Address [address] [place] [address] Care Team Providers Care Qm Nurse Name Role Phone Shilo Soares MD Primary Care Provider [phone] Encounter Details Date Type Department Care Team (Late st Contact Info) Description 07/13/2023 External Device Data STL ABSTRACTION Provider, Abstract [...] st Contact Info) Description 08/04/2024 1:00 PM UNIT TENDER Appointment Randy Hall [facility] Infusion Center 2nd Fl [address] [place] [address] Aviva Humphries MD [address] [facility] [address] [place] [address] Infusion Chair 5, 2nd Floor Hall 08/25/2024 1:00 PM UNIT TENDER Office Visit [facility] Gynecologic Oncology Hall [address] [facility] [address] [place] [address] Edilia Pettit NP [address] [facility] [address] [place] [address] 08/25/2024 1:30 PM UNIT TENDER Appointment Randy Hall [facility] Infusion Center 2nd Fl [address] [place] [address] Aviva Humphries MD [address] [facility] [address] [place] [address] Infusion Chair 1, 2nd Floor Hall 09/01/2024 10:45 AM UNIT TENDER Appointment [facility] [address] [place] [address] [id number] Edilia Pettit, CHELY [address] [place] [address] documented as of this encounter Visit Diagnoses Not on filedocumented in this encounter Care Teams Qm Nurse Relationship Specialty Start Date End Date Shilo Soares MD [address] [facility] 2 [place] [address] PCP - General Internal Medicine 04/24/23 documented as of this encounter
--- OUTSIDE RECORDS SUMMARY | 2024-07-26 23:59 | XMS_ITS | Encounter Summary ---
Author Organization [facility] Address [address] [place] [address] Care Team Providers Care Audit Specialist Name Role Phone Shilo Soares MD Primary Care Provider [phone] Encounter Details Date Type Department Care Team (Late st Contact Info) Description 06/28/2023 External Device Data STL ABSTRACTION Provider, Abstract [...] st Contact Info) Description 08/04/2024 1:00 PM BUTTON SEWING MACHINE OPERATOR Appointment Randy Hall [facility] Infusion Center 2nd Fl [address] [place] [address] Aviva Humphries MD [address] [facility] [address] [place] [address] Infusion Chair 5, 2nd Floor Hall 08/25/2024 1:00 PM BUTTON SEWING MACHINE OPERATOR Office Visit [facility] Gynecologic Oncology Hall [address] [facility] [address] [place] [address] Edilia Pettit NP [address] [facility] [address] [place] [address] 08/25/2024 1:30 PM BUTTON SEWING MACHINE OPERATOR Appointment Randy Hall [facility] Infusion Center 2nd Fl [address] [place] [address] Aviva Humphries MD [address] [facility] [address] [place] [address] Infusion Chair 1, 2nd Floor Hall 09/01/2024 10:45 AM BUTTON SEWING MACHINE OPERATOR Appointment [facility] [address] [place] [address] [id number] Edilia Pettit, CHELY [address] [facility] [address] [place] [address] documented as of this encounter Visit Diagnoses Not on filedocumented in this encounter Care Teams Audit Specialist Relationship Specialty Start Date End Date Shilo Soares MD [address] [facility] 2 [place] [address] PCP - General Internal Medicine 04/24/23 documented as of this encounter
--- OUTSIDE RECORDS SUMMARY | 2024-07-26 23:59 | XMS_ITS | Encounter Summary ---
Author Organization [facility] Address [address] [place] [address] Care Team Providers Care Township Clerk Name Role Phone Shilo Soares MD Primary Care Provider [phone] Encounter Details Date Type Department Care Team (Late st Contact Info) Description 07/14/2023 External Device Data STL ABSTRACTION Provider, Abstract [...] st Contact Info) Description 08/04/2024 1:00 PM EDGING MACHINE SETTER Appointment Randy Hall [facility] Infusion Center 2nd Fl [address] [place] [address] Aviva Humphries MD [address] [facility] [address] [place] [address] Infusion Chair 5, 2nd Floor Hall 08/25/2024 1:00 PM EDGING MACHINE SETTER Office Visit [facility] Gynecologic Oncology Hall [address] [facility] [address] [place] [address] Edilia Pettit NP [address] [facility] [address] [place] [address] 08/25/2024 1:30 PM EDGING MACHINE SETTER Appointment Randy Hall [facility] Infusion Center 2nd Fl [address] [place] [address] Aviva Humphries MD [address] [facility] [address] [place] [address] Infusion Chair 1, 2nd Floor Hall 09/01/2024 10:45 AM EDGING MACHINE SETTER Appointment [facility] [address] [place] [address] [id number] Edilia Pettit, CHELY [address] [facility] [address] [place] [address] documented as of this encounter Visit Diagnoses Not on filedocumented in this encounter Care Teams Township Clerk Relationship Specialty Start Date End Date Shilo Soares MD [address] [facility] 2 [place] [address] PCP - General Internal Medicine 04/24/23 documented as of this encounter
--- OUTSIDE RECORDS SUMMARY | 2024-07-26 23:59 | XMS_ITS | Encounter Summary ---
Author Organization [facility] Address [address] [place] [address] Care Team Providers Care Promotional Marketing Analyst Name Role Phone Shilo oSares MD Primary Care Provider [phone] Encounter Details Date Type Department Care Team (Late st Contact Info) Description 06/24/2023 External Device Data STL ABSTRACTION Provider, Abstract [...] st Contact Info) Description 08/04/2024 1:00 PM REPAIRER WELDING EQUIPMENT Appointment Randy Hall [facility] Infusion Center 2nd Fl [address] [place] [address] Aviva Humphries MD [address] [facility] [address] [place] [address] Infusion Chair 5, 2nd Floor Hall 08/25/2024 1:00 PM REPAIRER WELDING EQUIPMENT Office Visit [facility] Gynecologic Oncology Hall [address] [facility] [address] [place] [address] Edilia Pettit NP [address] [facility] [address] [place] [address] 08/25/2024 1:30 PM REPAIRER WELDING EQUIPMENT Appointment Randy Hall [facility] Infusion Center 2nd Fl [address] [place] [address] Aviva Humphries MD [address] [facility] [address] [place] [address] Infusion Chair 1, 2nd Floor Hall 09/01/2024 10:45 AM REPAIRER WELDING EQUIPMENT Appointment [facility] [address] [place] [address] [id number] Edilia Pettit, CHELY [address] [address] [place] [address] documented as of this encounter Visit Diagnoses Not on filedocumented in this encounter Care Teams Promotional Marketing Analyst Relationship Specialty Start Date End Date Shilo Soares MD [address] [facility] 2 [place] [address] PCP - General Internal Medicine 04/24/23 documented as of this encounter
--- OUTSIDE RECORDS SUMMARY | 2024-07-26 23:59 | XMS_ITS | Encounter Summary ---
Author Organization [facility] Address [address] [place] [address] Care Team Providers Care Route Jumper Name Role Phone Shilo Soares MD Primary Care Provider [phone] Encounter Details Date Type Department Care Team (Late st Contact Info) Description 06/21/2023 External Device Data STL ABSTRACTION Provider, Abstract [...] st Contact Info) Description 08/04/2024 1:00 PM CAREGIVER ASSISTED LIVING Appointment Randy Hall [facility] Infusion Center 2nd Fl [address] [place] [phone] Aviva Humphries MD [address] [facility] [address] [place] [address] Infusion Chair 5, 2nd Floor Hall 08/25/2024 1:00 PM CAREGIVER ASSISTED LIVING Office Visit [facility] Gynecologic Oncology Hall [address] [facility] [address] [place] [address] Edilia Pettit NP [address] [facility] [address] [place] [address] 08/25/2024 1:30 PM CAREGIVER ASSISTED LIVING Appointment Randy Hall [facility] Infusion Center 2nd Fl [address] [place] [address] Aviva Humphries MD [address] [facility] [address] [place] [address] Infusion Chair 1, 2nd Floor Hall 09/01/2024 10:45 AM CAREGIVER ASSISTED LIVING Appointment [facility] [address] [place] [address] [id number] Edilia Pettit, CHELY [address] [facility] [address] [place] [address] documented as of this encounter Visit Diagnoses Not on filedocumented in this encounter Care Teams Route Jumper Relationship Specialty Start Date End Date Shilo Soares MD [address] [facility] 2 [place] [address] PCP - General Internal Medicine 04/24/23 documented as of this encounter
--- OUTSIDE RECORDS SUMMARY | 2024-07-26 23:59 | XMS_ITS | Encounter Summary ---
Author Organization [facility] Address [address] [place] [address] Care Team Providers Care Advertising Designer Name Role Phone Shilo Soares MD Primary Care Provider [phone] Encounter Details Date Type Department Care Team (Late st Contact Info) Description 07/18/2023 External Device Data STL ABSTRACTION Provider, Abstract [...] st Contact Info) Description 08/04/2024 1:00 PM THERAPY TEACHER Appointment Randy Hall [facility] Infusion Center 2nd Fl [address] [place] [phone] Aviva Humphries MD [address] [facility] [address] [place] [address] Infusion Chair 5, 2nd Floor Hall 08/25/2024 1:00 PM THERAPY TEACHER Office Visit [facility] Gynecologic Oncology Hall [address] [facility] [address] [place] [address] Edilia Pettit NP [address] [facility] [address] [place] [address] 08/25/2024 1:30 PM THERAPY TEACHER Appointment Randy Hall [facility] Infusion Center 2nd Fl [address] [place] [address] Aviva Humphries MD [address] [facility] [address] [place] [address] Infusion Chair 1, 2nd Floor Hall 09/01/2024 10:45 AM THERAPY TEACHER Appointment [facility] [address] [place] [address] [id number] Edilia Pettit, CHELY [address] [facility] [address] [place] [address] documented as of this encounter Visit Diagnoses Not on filedocumented in this encounter Care Teams Advertising Designer Relationship Specialty Start Date End Date Shilo Soares MD [address] [facility] 2 [place] [address] PCP - General Internal Medicine 04/24/23 documented as of this encounter
--- OUTSIDE RECORDS SUMMARY | 2024-07-26 23:59 | XMS_ITS | Encounter Summary ---
Author Organization [facility] Address [address] [place] [address] Care Team Providers Care Door Opener Name Role Phone Shilo Soares MD Primary Care Provider [phone] Encounter Details Date Type Department Care Team (Late st Contact Info) Description 07/29/2023 External Device Data STL ABSTRACTION Provider, Abstract [...] st Contact Info) Description 08/04/2024 1:00 PM PAN SHAKER Appointment Randy Hall [facility] Infusion Center 2nd Fl [address] [place] [phone] Aviva Humphries MD [address] [place] [address] Infusion Chair 5, 2nd Floor Hall 08/25/2024 1:00 PM PAN SHAKER Office Visit [facility] Gynecologic Oncology Hall [address] [place] [address] Edilia Pettit NP [address] [place] [address] 08/25/2024 1:30 PM PAN SHAKER Appointment Randy Hall [facility] Infusion Center 2nd Fl [address] [place] [address] Aviva Humphries MD [address] [facility] [address] [place] [address] Infusion Chair 1, 2nd Floor Hall 09/01/2024 10:45 AM PAN SHAKER Appointment Randy [facility] [address] [place] [address] [id number] Edilia Pettit, CHELY [address] [facility] [address] [place] [address] documented as of this encounter Visit Diagnoses Not on filedocumented in this encounter Care Teams Door Opener Relationship Specialty Start Date End Date Shilo Soares MD [address] [facility] [address] [place] [address] PCP - General Internal Medicine 04/24/23 documented as of this encounter
--- OUTSIDE RECORDS SUMMARY | 2024-07-26 23:59 | XMS_ITS | Encounter Summary ---
Author Organization [facility] Address [address] [place] [address] Care Team Providers Care Languages And Literature Instructor Name Role Phone Shilo Soares MD Primary Care Provider [phone] Reason for Visit * Reason Onset Date Comments Follow Up 07/10/2023 Encounter Details Date Type Department Care Team (Late st Contact Info) Description 07/10/2023 Telephone [facility] Gynecologic Oncology [place] [address] [place] [address] Aviva Humphries MD [address] [place] [address] Follow Up Social History Tobacco [...] Telephone Encounter - Stevie Chavarria RN - 07/10/2023 10:38 AM CST Spoke with patient in regards to [place] paperwork. DAVID Alamo is faxing over the form. Patient voicedunderstanding. P CUTTER documented in this encounter Plan of Treatment Upcoming Encounters Date Type Department Care Team (Late st Contact Info) Description 08/04/2024 1:00 PM SCRAP CUTTER Appointment Randy Hall [facility] [address] [place] [address] Aviva Humphries MD [address] [place] [address] Infusion Chair 5, 2nd Floor Hall 08/25/2024 1:00 PM SCRAP CUTTER Office Visit [facility] Gynecologic Oncology Hall [address] [facility] [address] [place] [address] Edilia Pettit, CHELY [address] [facility] [address] [place] [address] 08/25/2024 1:30 PM SCRAP CUTTER Appointment Randy [facility] [address] [place] [address] Aviva Humphries MD [address] [facility] [address] [place] [address] Infusion Chair 1, 2nd Floor Hall 09/01/2024 10:45 AM SCRAP CUTTER Appointment Randy [facility] Nuclear Medicine [address] [place] [address] [id number] Edilia Pettit, CHELY [address] [facility] [address] [place] [address] documented as of this encounter Visit Diagnoses Not on filedocumented in this encounter Care Teams Languages And Literature Instructor Relationship Specialty Start Date End Date Shilo Soares MD [address] [facility] 2 [place] [address] PCP - General Internal Medicine 04/24/23 documented as of this encounter
--- OUTSIDE RECORDS SUMMARY | 2024-07-26 23:59 | XMS_ITS | Encounter Summary ---
Author Organization [facility] Address [address] [place] [address] Care Team Providers Care Counsellors Name Role Phone Shilo Soares MD Primary Care Provider [phone] Encounter Details Date Type Department Care Team (Late st Contact Info) Description 07/02/2023 External Device Data STL ABSTRACTION Provider, Abstract [...] st Contact Info) Description 08/04/2024 1:00 PM AGRICULTURE TEACHER Appointment Randy Hall [facility] Infusion Center 2nd Fl [address] [place] [address] Aviva Humphries MD [address] [facility] [address] [place] [address] Infusion Chair 5, 2nd Floor Hall 08/25/2024 1:00 PM AGRICULTURE TEACHER Office Visit [facility] Gynecologic Oncology Hall [address] [facility] [address] [place] [address] Edilia Pettit NP [address] [facility] [address] [place] [address] 08/25/2024 1:30 PM AGRICULTURE TEACHER Appointment Randy [facility] Infusion Center 2nd Fl [address] [place] [address] Aviva Humphries MD [address] [facility] [address] [place] [address] Infusion Chair 1, 2nd Floor Hall 09/01/2024 10:45 AM AGRICULTURE TEACHER Appointment Randy [facility] [address] [place] [address] [id number] Edilia Pettit, CHELY [address] [facility] [address] [place] [address] documented as of this encounter Visit Diagnoses Not on filedocumented in this encounter Care Teams Counsellors Relationship Specialty Start Date End Date Shilo Soares MD [address] [facility] 2 [place] [address] PCP - General Internal Medicine 04/24/23 documented as of this encounter
--- OUTSIDE RECORDS SUMMARY | 2024-07-26 23:59 | XMS_ITS | Encounter Summary ---
Author Organization [facility] Address [address] [place] [address] Care Team Providers Care Technical Operations Vice President Name Role Phone Shilo Soares MD Primary Care Provider [phone] Encounter Details Date Type Department Care Team (Late st Contact Info) Description 07/21/2023 External Device Data STL ABSTRACTION Provider, Abstract [...] st Contact Info) Description 08/04/2024 1:00 PM TIRE SETTER Appointment Randy Hall [facility] Infusion Center 2nd Fl [address] [place] [address] Aviva Humphries MD [address] [facility] [address] [place] [address] Infusion Chair 5, 2nd Floor Hall 08/25/2024 1:00 PM TIRE SETTER Office Visit [facility] Gynecologic Oncology Hall [address] [facility] [address] [place] [address] Edilia Pettit NP [address] [facility] [address] [place] [address] 08/25/2024 1:30 PM TIRE SETTER Appointment Randy Hall [facility] Infusion Center 2nd Fl [address] [place] [address] Aviva Humphries MD [address] [facility] [address] [place] [address] Infusion Chair 1, 2nd Floor Hall 09/01/2024 10:45 AM TIRE SETTER Appointment Randy [facility] [address] [place] [address] [id number] Edilia Pettit, CHELY [address] [facility] [address] [place] [address] documented as of this encounter Visit Diagnoses Not on filedocumented in this encounter Care Teams Technical Operations Vice President Relationship Specialty Start Date End Date Shilo Soares MD [address] [facility] 2 [place] [address] PCP - General Internal Medicine 04/24/23 documented as of this encounter
--- OUTSIDE RECORDS SUMMARY | 2024-07-26 23:59 | XMS_ITS | Encounter Summary ---
Author Organization [facility] Address [address] [place] [address] Care Team Providers Care Player Development Manager Name Role Phone Shilo Soares MD Primary Care Provider [phone] Encounter Details Date Type Department Care Team (Late st Contact Info) Description 07/01/2023 External Device Data STL ABSTRACTION Provider, Abstract [...] Contact Info) Description 08/04/2024 1:00 PM SENIOR WINDOWS ADMINISTRATOR Appointment Randy Hall [facility] Infusion Center 2nd Fl [address] [place] [address] Aviva Humphries MD [address] [facility] [address] [place] [address] Infusion Chair 5, 2nd Floor Hall 08/25/2024 1:00 PM SENIOR WINDOWS ADMINISTRATOR Office Visit [facility] Gynecologic Oncology Hall [address] [facility] [address] [place] [address] Edilia Pettit NP [address] [facility] [address] [place] [address] 08/25/2024 1:30 PM SENIOR WINDOWS ADMINISTRATOR Appointment Randy Hall [facility] Infusion Center 2nd Fl [address] [place] [address] Aviva Humphries MD [address] [facility] [address] [place] [address] Infusion Chair 1, 2nd Floor Hall 09/01/2024 10:45 AM SENIOR WINDOWS ADMINISTRATOR Appointment Randy [facility] [address] [place] [address] [phone] Edilia Pettit, CHELY [address] [facility] [address] [place] [address] documented as of this encounter Visit Diagnoses Not on filedocumented in this encounter Care Teams Player Development Manager Relationship Specialty Start Date End Date Shilo Soares MD [address] [facility] 2 [place] [address] PCP - General Internal Medicine 04/24/23 documented as of this encounter
--- OUTSIDE RECORDS SUMMARY | 2024-07-26 23:59 | XMS_ITS | Encounter Summary ---
Author Organization [facility] Address [address] [place] [address] Care Team Providers Care Print Finishing Worker Name Role Phone Shilo Soares MD Primary Care Provider [phone] Encounter Details Date Type Department Care Team (Late Contact Info) Description 07/14/2023 Abstract [facility] Gynecologic Oncology [address] [facility] [address] [place] [address] Aviva Humphries MD [address] [facility] [address] [place] [address] Social History Tobacco Use Types [...] (Late Contact Info) Description 08/04/2024 1:00 PM HONING MACHINE TRY OUT SETTER Appointment Randy [facility] Infusion Center 2nd Fl [address] [place] [address] Aviva Humphries MD [address] [facility] [address] [place] [address] Infusion Chair 5, 2nd Floor [place] 08/25/2024 1:00 PM HONING MACHINE TRY OUT SETTER Office Visit [facility] Gynecologic Oncology Hall [address] [facility] [address] [place] [address] Edilia Pettit NP [address] [facility] [address] [place] [address] 08/25/2024 1:30 PM HONING MACHINE TRY OUT SETTER Appointment Randy [facility] Infusion Center 2nd Fl [address] [facility] [place] [address] Aviva Humphries MD [address] [facility] [address] [place] [address] Infusion Chair 1, 2nd Floor [place] 09/01/2024 10:45 AM HONING MACHINE TRY OUT SETTER Appointment Randy Hall [facility] Nuclear Medicine [address] [place] [address] [id number] Edilia Pettit, CHELY [address] [facility] [address] [place] [address] documented as of this encounter Visit Diagnoses Not on filedocumented in this encounter Care Teams Print Finishing Worker Relationship Specialty Start Date End Date Shilo Soares MD [address] [place] [address] PCP - General Internal Medicine 04/24/23 documented as of this encounter
--- OUTSIDE RECORDS SUMMARY | 2024-07-26 23:59 | XMS_ITS | Encounter Summary ---
Author Organization [facility] Address [address] [place] [address] Care Team Providers Care Commissary Steward Name Role Phone Shilo Soares MD Primary Care Provider [phone] Encounter Details Date Type Department Care Team (Late st Contact Info) Description 06/29/2023 External Device Data STL ABSTRACTION Provider, Abstract [...] st Contact Info) Description 08/04/2024 1:00 PM MEDICAL STAFF PHYSICIAN Appointment Randy Hall [facility] Infusion Center 2nd Fl [address] [place] [address] Aviva Humphries MD [address] [facility] [address] [place] [address] Infusion Chair 5, 2nd Floor Hall 08/25/2024 1:00 PM MEDICAL STAFF PHYSICIAN Office Visit [facility] Gynecologic Oncology Hall [address] [facility] [address] [place] [address] Edilia Pettit NP [address] [facility] [address] [place] [address] 08/25/2024 1:30 PM MEDICAL STAFF PHYSICIAN Appointment Randy Hall [facility] Infusion Center 2nd Fl [address] [place] [address] Aviva Humphries MD [address] [facility] [address] [place] [address] Infusion Chair 1, 2nd Floor Hall 09/01/2024 10:45 AM MEDICAL STAFF PHYSICIAN Appointment Randy [facility] [address] [place] [address] [id number] Edilia Pettit, CHELY [address] [facility] [address] [place] [address] documented as of this encounter Visit Diagnoses Not on filedocumented in this encounter Care Teams Commissary Steward Relationship Specialty Start Date End Date Shilo Soares MD [address] [facility] 2 [place] [address] PCP - General Internal Medicine 04/24/23 documented as of this encounter
--- OUTSIDE RECORDS SUMMARY | 2024-07-26 23:59 | XMS_ITS | Encounter Summary ---
Author Organization [facility] Address [address] [place] [address] Care Team Providers Care Walnut Dehydrator Operator Name Role Phone Shilo Soares MD Primary Care Provider [phone] Reason for Referral * Eval and Treat (Routine) - Closed Specialty Diagnoses / Procedures Referred By Alison gomez Referred To Contact Genetics Diagnoses Malignant neoplasm of ovary, unspecified laterality Aviva Humphries MD [address] [place] [address] Tali Salcedo [facility] [address] [place] [address] Referral ID Status Reason Start Date Expiration Date Visits Requested Visits Authorized [id number] Closed Performing Department to Schedule 07/09/2023 07/08/2024 1 1 ENTAL WALL INSTALLER Reason for Visit * Reason Comments Follow Up Encounter Details Date Type Department Care Team (Late st Contact Info) Description 07/09/2023 9:30 AM SEGMENTAL WALL INSTALLER Office Visit [facility] Gynecologic Oncology Hall [address] [place] [address] Barb Hyde MD [address] [place] [address] Malignant neoplasm of ovary, unspecified laterality (Primary Dx); Drug-induced androgenic alopecia Social History Tobacco Use Types Packs/Day Years Used Date Smoking Tobacco: Every Day Cigarettes 0.5 35 Smokeless Tobacco: Never Tobacco Cessation:Ready to Q uit: Not Asked; Counseling Given: Not Answered Alcohol Use Standard Drinks/Week Comments Never 0 (1 standard drink = 0.6 oz pur e alcohol) socially Sex and Gender Information Value Date Recorded Sex Assigned at Not on file Gender Identity Not on file Sexual Orientation Not on file documented as of this encounter Last Filed Vital Signs Vital Sign Reading Time Taken Comments Blood Pressure 163/94 07/09/2023 9:36 AM SEGMENTAL WALL INSTALLER Pulse 96 07/09/2023 9:36 AM SEGMENTAL WALL INSTALLER Temperature 36.8 ??C (98.3 ??F) 07/09/2023 9:36 AM CS T Respiratory Rate - - Oxygen Saturation 98% 07/09/2023 9:36 AM SEGMENTAL WALL INSTALLER Inhaled Oxygen Concentration - - Weight 46 kg (101 lb 6 oz) 07/09/2023 9:36 AM CS T Height 167.6 cm (5' 6 ) 07/09/2023 9:36 AM SEGMENTAL WALL INSTALLER Body Mass Index 16.36 07/09/2023 9:36 AM SEGMENTAL WALL INSTALLER documented in this encounter Progress Notes * Barb Hyde MD - 07/09/2023 9:50 AM CST 07/09/2023 REFERRING PROVIDER: Rober Lacy MD PRIMARY CARE PROVIDER: Shilo Harley MD Cancer Staging Ovarian cancer Staging form: Ovary, Fallopian Tube, and Primary Peritoneal Carcinoma, AJCC 8th Edition - Clinical stage from 05/13/2023: FIGO Stage IVB - Signed by Aviva Humphries MD on 05/13/2023 Oncology History: 03/2023 presented to [place] ED with abdominal distension; CT showed 11.6cm [...] 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 A CT scan was performed revealing a large ovarian mass with carcinomatosis, inguinal and pelvic LAD and thickening of the stomach wall. She was sen by Dr. Rodgers in [facility] 04/29/23 who ordered additional work up and referred to pre algebra teacher oncology. CT chest did not show metastatic disease. CA- 125 was performed at elevated at 751. 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 She presents today as a new consultation for management. She felt better after paracentesis but can tell all the fluid is back Bloating for a few weeks or a month prior to presentation GI issues--had some diarrhea; lots of nausea with PO intake, not really hungry Was 125lbs, today 113 (was 110 after drainage of fluid) No urinary issues. No bleeding. 07/09/23: fingertips neuropathy, Results for orders placed or performed during the hospital encounter of 05/13/23 PATHOLOGY Result Value Ref Range CASE REPORT Surgical Pathology Report Case: [id number] Authorizing Provider: Aviva Humphries MD Collected: 05/13/2023 02:37 PM Ordering Location: [facility] Received: 05/14/2023 02:39 PM Services S [facility] Pathologist: Anna Jimenez MD Specimen: Other, specify, 12 slides labeled [id number] FINAL DIAGNOSIS [place] [address] (OSC [id number]; 04/29/2023 and [id number]; 05/06/2023) [id number] Ascites fluid, cytologic examination: - CK7 positive adenocarcinoma. [id number] Lymph node, right inguinal, biopsy: - Metastatic carcinoma most compatible with high-grade serous carcinoma. See comment. MICROSCOPIC DESCRIPTION Received are slides labeled [id number] and [id number] and Narda Mayen. Microscopic examination of the [...] origin. Sections of the lymph node biopsy ([id number]) show cores of lymph node involved by [...] results wascommunicated to Dr. Humphries on 05/26/23. OPERATIVE PROCEDURE Paracentesis CLINICAL INFORMATION Z71.9 - Encounter for consultation [ICD-10-CM] SUBMITTED BY Dr. Aviva Humphries, [address] [facility], [address], [address] Pathology Report MATERIAL RECEIVED Received are slides labeled Tiarranovember and [id number]; 2 cytospin slides, 1 H&E stained cellblock, and 9 immunostains; and [id number], consisting of 2 H&E and 14 immunostains. These are derived from a paracentesis performed on April 29, 2023 and lymph node biopsy performed on May 06, 2023 as detailed in the accompanying cytopathology and surgical pathology reports. All material is returned. COMMENT Special stain, immunohistochemical, and/or in situ hybridization results are interpreted with controls that demonstrate appropriate staining reactions. Note on use of immunohistochemistry reagents and in situ hybridization probes: These tests were developed and their performance characteristics determined by [facility], Department of Laboratory Medicine. It has [...] examination and dissection, and case sign out mayhave been performed in part or completely in the following laboratories: [facility], CLIA #[id number] [address] [place] [address] [facility], [place] #[id number] [address] [place] [address] [facility], [place] #[id number] [address] [place] [address] Past Medical History: Diagnosis Date Asthma Emphysema of lung Hyperlipidemia Past Surgical History: Procedure Laterality Date HX BUNIONECTOMY Bilateral 2010 HX SECTION 1982,1985,1994 Family History Problem Relation Name Age of Onset Lung Cancer Father Heart Disease Father No Known Problems Mother Diabetes Brother Diabetes Sister No Known Problems Son No Known Problems Son No Known Problems Daughter ROS Physical Exam: BP (!) 163/94 (BP Location: Left arm, Patient Position (BP): Sitting) Pulse 96 Temp 98.3 ??F (36.8 ??C) (Oral) Ht 5' 6 (1.676 m) Wt 46 kg (101 lb 6 oz) SpO2 98% BMI 16.36 kg/m?? ECOG GENERAL: Alert and oriented, no acute distress CARDIOLOGY: Regular rate and rhythm RESPIRATORY: non-labored breathing, no wheezing noted ABDOMEN: non-tender, non-distended, positive bowel sound LYMPHATICS: No inguinal lymphadenopathy palpated. MUSCULOSKELETAL: The upper and lower extremities-equal muscle strength. SKIN: No rash, lesions or subcutaneous nodules noted. NEUROLOGIC: Cranial nerves were intact. MENTAL STATUS: Affect was appropriate. ABDOMEN: Soft, non-tender, no masses, no evidence of hernias. 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 HRD positive. Plan: Proceed with cycle 3 carboplatin AUC 5 + paclitaxel 175mg/m2 Hold bevacizumab. Ascites improved. Schedule restaging CT chest/abdomen and pelvis to restage after this cycle. Given her large volume of ascites will plan NACT with carboplatin AUC 5 + paclitaxel 175mg/m2 + bevacizumab 15mg/m2 q21 days. We will plan to hold bevacizumab today for 1 cycle before and and debulking surgery. At time of surgery at a minimum, a DANETTE BSO, complete omentectomy will be performed as well as any indicated procedure for maximal tumor debulking with goal of R0-1. NACT (3-4 cycles pending response), followed by debulking surgery and completion of adjuvant chemotherapy (another 3-4 cycles). Will follow CA-125 as it is significantly elevated; can follow inguinal lymphadenopathy CA125 304-> 57. I reviewed Tempus. HRD+ Plan genetic consultation for germline test. Will plan to continue bevacizumab as maintenance after completion of primary therapy RTC in 3 week with labs, tentative infusion , physical exam. Thank you for allowing [facility] to participate in the care of this patient. All information discussed with the patient, the patient participated in the decision-making processand agreed with the plan. Barb Hyde MD Parts of this note may have been generated with voice recognition software and may contain transcriptional errors. ENTAL WALL INSTALLER documented in this encounter Miscellaneous Notes * Addendum Note - Christy Hrarington RN - 07/10/2023 9:17 AM CSTAddended by: CHRISTY HARRINGTON on: 07/10/2023 09:17 AM Modules accepted: Orders ENTAL WALL INSTALLER documented in this encounter Plan of Treatment Upcoming Encounters Date Type Department Care Team (Late st Contact Info) Description 08/04/2024 1:00 PM SEGMENTAL WALL INSTALLER Appointment [facility] Center 2nd Ga [address] [place] [address] Aviva Humphries MD [address] [place] [address] Infusion Chair 5, 2nd Floor [place] 08/25/2024 1:00 PM SEGMENTAL WALL INSTALLER Office Visit [facility] Gynecologic Oncology Hall [address] [place] [phone] Edilia Pettit, CHELY [address] [facility] [address] [place] [address] 08/25/2024 1:30 PM SEGMENTAL WALL INSTALLER Appointment Randy [facility] Infusion Center 2nd Fl [address] [place] [address] Aviva Humphries MD [address] [facility] [address] [place] [address] Infusion Chair 1, 2nd Floor [place] 09/01/2024 10:45 AM SEGMENTAL WALL INSTALLER Appointment [facility] [address] [place] [address] [id number] Edilia Pettit, CHELY [address] [facility] [address] [place] [address] Scheduled Referrals Name Type Priority Associated Diagnoses Orde r Schedule AMB REFERRAL TO GENETIC COUNSELING Outpatient Referral Routine Malignant neoplasm of ovary, unspecified laterality Ordered: 07/09/2023 documented as of this encounter Visit Diagnoses Diagnosis Malignant neoplasm of ovary, unspecified laterality- Primary Drug-induced androgenic alopecia Other alopecia documented in this encounter Care Teams Walnut Dehydrator Operator Relationship Specialty Start Date End Date Shilo Soares MD [address] [place] [address] PCP - General Internal Medicine 04/24/23 documented as of this encounter
--- OUTSIDE RECORDS SUMMARY | 2024-07-26 23:59 | XMS_ITS | Encounter Summary ---
Author Organization [facility] Address [address] [place] [address] Care Team Providers Care Speeder Tender Name Role Phone Shilo Soares MD Primary Care Provider [phone] Encounter Details Date Type Department Care Team (Late st Contact Info) Description 06/20/2023 External Device Data STL ABSTRACTION Provider, Abstract [...] st Contact Info) Description 08/04/2024 1:00 PM MATTRESS FILLER Appointment [facility] Infusion Center 2nd Fl [address] [place] [address] Aviva Humphries MD [address] [facility] [address] [place] [address] Infusion Chair 5, 2nd Floor Hall 08/25/2024 1:00 PM MATTRESS FILLER Office Visit [facility] Gynecologic Oncology Hall [address] [facility] [address] [place] [address] Edilia Pettit NP [address] [facility] [address] [place] [address] 08/25/2024 1:30 PM MATTRESS FILLER Appointment [facility] Infusion Center 2nd Fl [address] [place] [address] Aviva Humphries MD [address] [facility] [address] [place] [address] Infusion Chair 1, 2nd Floor Hall 09/01/2024 10:45 AM MATTRESS FILLER Appointment [facility] [address] [place] [address] [id number] Edilia Pettit, CHELY [address] [place] [address] documented as of this encounter Visit Diagnoses Not on filedocumented in this encounter Care Teams Speeder Tender Relationship Specialty Start Date End Date Shilo Soares MD [address] [facility] [address] [place] [address] PCP - General Internal Medicine 04/24/23 documented as of this encounter
--- OUTSIDE RECORDS SUMMARY | 2024-07-26 23:59 | XMS_ITS | Encounter Summary ---
Author Organization [facility] Address [address] [place] [address] Care Team Providers Care Dental Associate Name Role Phone Shilo Soares MD Primary Care Provider [phone] Encounter Details Date Type Department Care Team (Late st Contact Info) Description 07/12/2023 External Device Data STL ABSTRACTION Provider, Abstract [...] Contact Info) Description 08/04/2024 1:00 PM TIRE WORKER Appointment [facility] Infusion Center 2nd Fl [address] [place] [phone] Aviva Humphries MD [address] [facility] [address] [place] [address] Infusion Chair 5, 2nd Floor Hall 08/25/2024 1:00 PM TIRE WORKER Office Visit [facility] Gynecologic Oncology Hall [address] [facility] [address] [place] [address] Edilia Pettit NP [address] [facility] [address] [place] [address] 08/25/2024 1:30 PM TIRE WORKER Appointment Randy [facility] Infusion Center 2nd Fl [address] [place] [address] Aviva Humphries MD [address] [facility] [address] [place] [address] Infusion Chair 1, 2nd Floor Hall 09/01/2024 10:45 AM TIRE WORKER Appointment [facility] [address] [place] [address] [id number] Edilia Pettit, CHELY [address] [facility] [address] [place] [address] documented as of this encounter Visit Diagnoses Not on filedocumented in this encounter Care Teams Dental Associate Relationship Specialty Start Date End Date Shilo Soares MD [address] [facility] [address] [place] [address] PCP - General Internal Medicine 04/24/23 documented as of this encounter
--- OUTSIDE RECORDS SUMMARY | 2024-07-26 23:59 | XMS_ITS | Encounter Summary ---
Author Organization [facility] Address [address] [place] [address] Care Team Providers Care Gut Carrier Name Role Phone Shilo Soares MD Primary Care Provider [phone] Reason for Visit * Tx/Med Therapy Plan [...] BENADRYL, PEPCID Aviva Humphries MD [address] [facility] [address] [place] [address] [facility] Infusion [place] 2nd Floor [place] [address] [place] [address] Referral ID Status Reason Start Date Expiration Date V isits Requested Visits Authorized [id number] Authorized 05/20/2023 05/26/2025 99 99 Encounter Details Date Type Department Care Team (Latest Contact Info) Description 07/09/2023 10:00 AM A/C TECHNICIAN - 07/09/2023 11:59 PM [facility] Hospital Encounter Randy [facility] Infusion Center 2nd Fl [address] [place] [address] Barb Hyde MD [address] [facility] [address] [place] [address] Infusion Chair 5, 2nd [...] bedtime. 02/26/2021 fluticasone propionate (FLONASE) 50 mcg/spray [place], Suspension nasal inhaler Administer 2 Sprays in each nostril daily. omega-3 fatty acids-fish oil 300-1,000 mg Capsule Take 2 Capsules by mouth daily. lidocaine-prilocaine (EMLA) 2.5-2.5 % Cream Apply a thin layer over port site 30-45 minutes prior to chemotherapy. 30 Gram 05/22/2023 10/05/2023 cetirizine (ZyrTEC) 10 mg tablet Take 10 mg by mouth 2 times daily. 07/22/2023 documented as of this encounter Progress Notes * Gilam Michaels RN - 07/09/2023 10:00 AM CST Pt admitted to infusion center [...] in condition. Pt verbalized understanding. Discharged home. A/C TECHNICIAN documented in this encounter Plan of Treatment Upcoming Encounters Date Type Department Care Team (Late st Contact Info) Description 08/04/2024 1:00 PM A/C TECHNICIAN Appointment Randy Proctor Hall [facility] Center [facility] [address] [place] [address] Aviva Humphries MD [address] [facility] [address] [place] [phone] Infusion Chair 5, 2nd Floor Hall 08/25/2024 1:00 PM A/C TECHNICIAN Office Visit [facility] Gynecologic Oncology [place] [address] [facility] [address] [place] [address] Edilia Pettit NP [address] [facility] [address] [place] [phone] 08/25/2024 1:30 PM A/C TECHNICIAN Appointment Randy Proctor Hall [facility] Center 2nd Fl [address] [place] [address] Aviva Humphries MD [address] [facility] [address] [place] [phone] Infusion Chair 1, 2nd Floor Hall 09/01/2024 10:45 AM A/C TECHNICIAN Appointment [facility] Nuclear Medicine [address] [place] [address] [phone] Edilia Pettit NP [address] [facility] [address] [place] [phone] documented as of this encounter Results * (ABNORMAL) URINALYSIS WITH REFLEX MICROSCOPIC (07/09/2023 9:02 AM A/C TECHNICIAN) COLOR UA Yellow Pale to Dark Yellow 07/09/2023 9:41 AM A/C TECHNICIAN [employer] LABORATORY SERVICES - . [place] CLARITY UA Clear Clear 07/09/2023 9:41 AM A/C TECHNICIAN [employer] LABORATORY SERVICES - . [facility] SPECIFIC GRAVITY UA 1.010 1.003 - 1.035 07/09/2023 9:41 AM A/C TECHNICIAN [employer] LABORATORY SERVICES - . [facility] PH UA 5.0 5.0 - 8.0 07/09/2023 9:41 AM A/C TECHNICIAN [employer] SERVICES - . [facility] LEUKOCYTE ESTERASE UA 1+(A) Negative 07/09/2023 9:41 AM A/C TECHNICIAN [employer] SERVICES - . [facility] NITRITE UA Negative Negative 07/09/2023 9:41 AM A/C TECHNICIAN [employer] SERVICES - . [facility] PROTEIN UA Negative Negative 07/09/2023 9:41 AM A/C TECHNICIAN [employer] LABORATORY SERVICES - . [facility] GLUCOSE UA Negative Negative 07/09/2023 9:41 AM A/C TECHNICIAN [employer] SERVICES - . [facility] KETONES UA Negative Negative 07/09/2023 9:41 AM [employer] LABORATORY SERVICES - . [facility] UROBILINOGEN UA Normal <2.0 mg/dL 9:41 AM [employer] LABORATORY SERVICES - . [facility] BILIRUBIN UA Negative Negative 07/09/2023 9:41 AM A/C TECHNICIAN [employer] LABORATORY SERVICES - . [place] BLOOD UA 1+(A) Negative 07/09/2023 9:41 AM A/C TECHNICIAN [employer] LABORATORY SERVICES - . [facility] WBC UA 3-5(A) 0 - 2 /hpf 07/09/2023 9:41 AM A/C TECHNICIAN [employer] LABORATORY SERVICES - . [place] RBC UA 3-5(A) 0 - 2 /hpf 07/09/2023 9:41 AM A/C TECHNICIAN [employer] LABORATORY SERVICES - . [place] BACTERIA UA 1+(A) Negative /hpf 07/09/2023 9:41 AM A/C TECHNICIAN [employer] LABORATORY SERVICES - . [facility] EPITHELIAL CELLS, URINE 0-5 0 - 5 /hpf 07/09/2023 9:41 AM A/C TECHNICIAN [employer] [facility] Urine URINE SPECIMEN OBTAINED BY CLEAN CATCH PROCEDURE / Unknown Collection / Unknown 07/09/2023 9:02 AM A/C TECHNICIAN 07/09/2023 9:16 AM A/C TECHNICIAN Aviva Humphries MD URINE ORDERABLES Performing Organization Address City/[facility]/ZIP Co de Phone Number [facility] Chip [employer] [facility] CLIA# [id number] [address] [place] [address] * MAGNESIUM LEVEL (07/09/2023 9:02 AM A/C TECHNICIAN) MAGNESIUM 2.0 1.6 - 2.4 mg/dL 07/09/2023 9:57 AM [facility] [employer] [facility] Blood Collection / Unknown 07/09/2023 9:02 AM A/C TECHNICIAN 07/09/2023 9:16 AM A/C TECHNICIAN Aviva Humphries MD CHEMISTRY ORDERABLES Performing Organization Address City/[facility]/ZIP Co de Phone Number [facility] [employer] [facility] CLIA# [id number] [address] [place] [address] * (ABNORMAL) COMPREHENSIVE METABOLIC PANEL (07/09/2023 9:02 AM A/C TECHNICIAN) SODIUM 140 136 - 145 mmol/L 07/09/2023 9:57 AM A/C TECHNICIAN [employer] LABORATORY SERVICES - [facility] POTASSIUM 3.8 3.5 - 5.0 mmol/L 07/09/2023 9:57 AM A/C TECHNICIAN [employer] LABORATORY SERVICES - [facility] CHLORIDE 105 98 - 107 mmol/L 07/09/2023 9:57 AM A/C TECHNICIAN [employer] LABORATORY SERVICES - . [facility] CO2 27 22 - 29 mmol/L 07/09/2023 9:57 AM A/C TECHNICIAN [employer] LABORATORY SERVICES - . [facility] CALCIUM 9.6 8.6 - 10.2 mg/dL 07/09/2023 9:57 AM A/C TECHNICIAN [employer] LABORATORY SERVICES - . [facility] BUN 7(L) 8 - 23 mg/dL 07/09/2023 9:57 AM [facility] CREATININE 0.62 0.51 - 0.95 mg/dL 07/09/2023 9:57 AM [facility] GLUCOSE 144(H) 74 - 99 mg/dL 07/09/2023 9:57 AM [facility] TOTAL PROTEIN 7.4 6.7 - 8.6 g/dL 07/09/2023 9:57 AM [facility]. [facility] ALBUMIN 4.0 3.5 - 5.2 g/dL 07/09/2023 9:57 AM [facility] BILIRUBIN TOTAL 0.3 0.2 - 1.1 mg/dL 07/09/2023 9:57 AM [facility] ALKALINE PHOSPHATASE 85 35 - 104 U/L 07/09/2023 9:57 AM [facility]. [facility] AST 30 <33 U/L 07/09/2023 9:57 AM [facility] ALT 39(H) <34 U/L 07/09/2023 9:57 AM [facility] GFR >60 >=60 mL/min/1.7 3 sq meter 07/09/2023 9:57 AM [facility] Comment:eGFR calculated with 2020 CKD-EPI equation. Vegetarian diet, extremely high or low muscle mass, and may affect results. Cystatin C with Glomerular Filtration Rate is a suitable alternative for these patients. ANION GAP 8 8 - 16 mmol/L 07/09/2023 9:57 AM [facility] Blood Collection / Unknown 07/09/2023 9:02 AM A/C TECHNICIAN 07/09/2023 9:16 AM [facility] - 07/09/2023 9:57 AM [facility] Samples containing indocyanine green cause interferences on Total and/or Direct Bilirubin and must not be measured. Aviva Humphries MD CHEMISTRY ORDERABLES [facility] CLIA# [id number] [address] [place] [address] [place] [address] * (ABNORMAL) CBC WITH DIFFERENTIAL (07/09/2023 9:02 AM A/C TECHNICIAN) [facility] WBC 5.7 4.0 - 9.8 K/uL 07/09/2023 9:14 AM [employer] LABORATORY SERVICES - [facility] [place] RBC 3.66(L) 3.90 - 4.90 M/uL 07/09/2023 9:14 AM [employer] LABORATORY SERVICES - . [place] HEMOGLOBIN 10.2(L) 11.8 - 14.8 g/dL 07/09/2023 9:14 AM [employer] LABORATORY SERVICES - . [place] HEMATOCRIT 31.9(L) 35.5 - 44.0 % 07/09/2023 9:14 AM [employer] LABORATORY SERVICES - . [facility] MCV 87.2 82.0 - 99.0 fL 07/09/2023 9:14 AM [employer] LABORATORY SERVICES - [facility] MCH 27.9 27.2 - 32.6 pg 07/09/2023 9:14 AM [employer] LABORATORY SERVICES - [facility] MCHC 32.0 31.5 - 35.5 g/dL 07/09/2023 9:14 AM [employer] LABORATORY SERVICES - [facility] RDW 22.3(H) 11.5 - 14.5 % 07/09/2023 9:14 AM [employer] LABORATORY SERVICES - . [facility] RDW-STDEV 66.4(H) 37.1 - 48.7 fL 07/09/2023 9:14 AM [employer] LABORATORY SERVICES - . [facility] PLATELETS 169 140 - 350 K/uL 07/09/2023 9:14 AM [employer] LABORATORY SERVICES - . [facility] MPV 8.8(L) 9.3 - 12.4 fL 07/09/2023 9:14 AM [employer] LABORATORY SERVICES - . [place] NEUTROPHILS 64 % 07/09/2023 9:14 AM [employer] LABORATORY SERVICES - [facility] [place] LYMPHOCYTES 30 % 07/09/2023 9:14 AM [employer] LABORATORY SERVICES - . [place] MONOCYTES 5 % 07/09/2023 9:14 AM [employer] LABORATORY SERVICES - . [place] EOSINOPHILS 1 % 07/09/2023 9:14 AM [employer] LABORATORY SERVICES - . [place] BASOPHILS 0 % 07/09/2023 9:14 AM [facility] IMMATURE GRANULOCYTES 0 % 07/09/2023 9:14 AM [facility] NEUTROPHIL ABSOLUTE 3.63 1.90 - 7.00 K/uL 07/09/2023 9:14 AM [facility]. [facility] LYMPHOCYTE ABSOLUTE 1.70 0.70 - 4.50 K/uL 07/09/2023 9:14 AM [facility]. [facility] MONOCYTE ABSOLUTE 0.31 0.10 - 1.30 K/uL 07/09/2023 9:14 AM [facility] LABORATORY [facility] - . [place] EOSINOPHIL ABSOLUTE 0.04 0.00 - 0.70 K/uL 07/09/2023 9:14 AM [facility] LABORATORY [facility] BASOPHILS ABSOLUTE 0.02 0.00 - 0.20 K/uL 07/09/2023 9:14 AM [facility] LABORATORY [facility]. [facility] IMMATURE GRANULOCYTES ABSOLUTE 0.02 0.00 - 0.03 K/uL 07/09/2023 9:14 AM [facility] Blood Collection / Unknown 07/09/2023 9:02 AM A/C TECHNICIAN 07/09/2023 9:10 AM A/C TECHNICIAN Aviva Humphries MD HEMATOLOGY ORDERABLE S [facility]# [id number] [address] [place] [address] * CANCER ANTIGEN 125 (07/09/2023 9:01 AM A/C TECHNICIAN) CA 125 32 <35 U/mL [facility] Comment: This test was performed using the Siemens Chemiluminescent method. Values obtained from different assay methods cannot be used interchangeably. CA 125 levels, regardless of value, should not be interpreted as absolute evidence of the presence or absence of disease. Test Performed at: [place] [facility] [address] [place], [place] ??[address] Radha Perez MD Blood 07/09/2023 9:01 AM A/C TECHNICIAN 07/09/2023 9:13 AM A/C TECHNICIAN Aviva Humphries MD CHEMISTRY ORDERABLES [facility] [phone] [facility] [id number] [address] [phone] documented in this encounter Visit Diagnoses Diagnosis Malignant neoplasm of ovary, unspecified laterality- Primary documented in this encounter Administered Medications Inactive Administered Medications - up to 3 most recent administrations Medication Order MAR Action Action Date Dose Rate Site CARBOplatin (PARAPLATIN) 459.5 mg in dextrose 5% 250 mL IVPB 459.5 mg (Target AUC = 5), IV, ONE TIME ONLY, 1 dose, On Peace 07/09/23 at 1400, Routine New Bag 07/09/2023 2:19 PM A/C TECHNICIAN 459.5 mg 661.9 mL/hr dexAMETHasone (DECADRON) 20 mg in sodium chloride 0.9% 100 mL IVPB (PREMIX) 20 mg, IV, ONE TIME ONLY, 1 dose, On Peace 07/09/23 at 1030, Routine Rate Verify 07/09/2023 10:50 AM A/C TECHNICIAN 300 mL/hr New Bag 07/09/2023 10:50 AM A/C TECHNICIAN 20 mg 300 mL/hr diphenhydrAMINE (BENADRYL) injection 25 mg 25 mg, IV, ONE TIME ONLY, 1 dose, On Peace 07/09/23 at 1030, Routine Given 07/09/2023 10:35 AM A/C TECHNICIAN 25 mg famotidine PF (PEPCID) 20 mg/2 mL injection 20 mg 20 mg, IV, ONE TIME ONLY, 1 dose, On Peace 07/09/23 at 1030, Routine Given 07/09/2023 10:35 AM A/C TECHNICIAN 20 mg fosaprepitant (EMEND) 150 mg in sodium chloride 0.9% 150 mL IVPB (PREMIX) 150 mg, IV, ONE TIME ONLY, 1 dose, On Peace 07/09/23 at 1030, Routine Rate Verify 07/09/2023 10:50 AM A/C TECHNICIAN 450 mL/hr New Bag 07/09/2023 10:49 AM A/C TECHNICIAN 150 mg 450 mL/hr PACLitaxeL (TAXOL) 271 mg in sodium chloride 0.9% (PVC free) 500 mL IVPB 271 mg (rounded from 271.25 mg = 175 mg/m2 ? 1.55 m2 Treatment Plan BSA from Recorded weight), IV, ONE TIME ONLY, 1 dose, On Peace 07/09/23 at 1100, Routine New Bag 07/09/2023 11:18 AM A/C TECHNICIAN 271 mg 195.1 mL/hr palonosetron (ALOXI) 0.25 mg/5 mL injection 0.25 mg 0.25 mg, IV, ONE TIME ONLY, 1 dose, On Peace 07/09/23 at 1030, Routine Given 07/09/2023 10:35 AM A/C TECHNICIAN 0.25 mg sodium chloride 0.9% infusion IV, at 30-999 mL/hr, CONTINUOUS, Starting on Peace 07/09/23 at 1030, Until Thu07/10/23 at 0316, Routine Rate Change 07/09/2023 2:49 PM A/C TECHNICIAN 300 mL /hr New Bag 07/09/2023 10:40 AM A/C TECHNICIAN 30 mL/hr 30 mL/hr sodium chloride flush injection 10 mL 10 mL, IV, SEE ADMIN INSTRUCTIONS, Starting on Peace 07/09/23 at 1026, Until Thu07/10/23 at 0316, Routine Given 07/09/2023 10:36 AM A/C TECHNICIAN 10 mL documented in this encounter Care Teams Gut Carrier Relationship Specialty Start Date End Date Shilo Soares MD [address] [place] [phone] PCP - General Internal Medicine 04/24/23 documented as of this encounter
--- OUTSIDE RECORDS SUMMARY | 2024-07-26 23:59 | XMS_ITS | Encounter Summary ---
Author Organization [facility] Address [address] [place] [address] Care Team Providers Care Golf Sales Manager Name Role Phone Shilo Soares MD Primary Care Provider [phone] Reason for Visit * Reason Onset Date Comments Follow Up 07/20/2023 Encounter Details Date Type Department Care Team (Late st Contact Info) Description 07/20/2023 Telephone [facility] Gynecologic Oncology [place] [address] [place] [address] Aviva Humphries MD [address] [place] [address] Follow Up Social History Tobacco [...] Telephone Encounter - Stevie Chavarria RN - 07/20/2023 11:26 AM CST Attempted to yarely patient, no answer, left V/M. L DIE PRESS SET UP OPERATOR documented in this encounter Plan of Treatment Upcoming Encounters Date Type Department Care Team (Late st Contact Info) Description 08/04/2024 1:00 PM STEEL DIE PRESS SET UP OPERATOR Appointment [facility] [address] [place] [address] Aviva Humphries MD [address] [place] [address] Infusion Chair 5, 2nd Floor [place] 08/25/2024 1:00 PM STEEL DIE PRESS SET UP OPERATOR Office Visit [facility] Gynecologic Oncology [place] [address] [place] [address] Edilia Pettit, CHELY [address] [place] [address] 08/25/2024 1:30 PM STEEL DIE PRESS SET UP OPERATOR Appointment [facility] [address] [place] [phone] Aviva Humphries MD [address] [place] [address] Infusion Chair 1, 2nd [facility] 09/01/2024 10:45 AM STEEL DIE PRESS SET UP OPERATOR Appointment Randy Proctor [facility] Nuclear Medicine [address] [place] [phone] [id number] Edilia Pettit, CHELY [address] [facility] [address] [place] [address] documented as of this encounter Visit Diagnoses Not on filedocumented in this encounter Care Teams Golf Sales Manager Relationship Specialty Start Date End Date Shilo Soares MD [address] [place] [address] PCP - General Internal Medicine 04/24/23 documented as of this encounter
--- OUTSIDE RECORDS SUMMARY | 2024-07-26 23:59 | XMS_ITS | Encounter Summary ---
Author Organization [facility] Address [address] [place] [address] Care Team Providers Care Bag Filler Machine Operator Name Role Phone Shilo Soares MD Primary Care Provider [phone] Encounter Details Date Type Department Care Team [...] st Contact Info) Description 08/04/2024 1:00 PM RETAIL SERVICE LEAD MERCHANDISER Appointment Randy Hall [facility] Infusion Center 2nd Fl [address] [place] [phone] Aviva Humphries MD [address] [facility] [address] [place] [address] Infusion Chair 5, 2nd Floor Hall 08/25/2024 1:00 PM RETAIL SERVICE LEAD MERCHANDISER Office Visit [facility] Gynecologic Oncology [place] [address] [facility] [address] [place] [address] Edilia Pettit NP [address] [facility] [address] [place] [address] 08/25/2024 1:30 PM RETAIL SERVICE LEAD MERCHANDISER Appointment Randy Hall [facility] Infusion Center 2nd Fl [address] [place] [address] Aviva Humphries MD [address] [facility] [address] [place] [address] Infusion Chair 1, 2nd Floor [place] 09/01/2024 10:45 AM RETAIL SERVICE LEAD MERCHANDISER Appointment [facility] Nuclear Medicine [address] [place] [address] [id number] Edilia Pettit, CHELY [address] [facility] [address] [place] [address] documented as of this encounter Visit Diagnoses Not on filedocumented in this encounter Care Teams Bag Filler Machine Operator Relationship Specialty Start Date End Date Shilo Soares MD [address] [facility] 2 [place] [address] PCP - General Internal Medicine 04/24/23 documented as of this encounter
--- OUTSIDE RECORDS SUMMARY | 2024-07-26 23:59 | XMS_ITS | Encounter Summary ---
Author Organization [facility] Address [address] [place] [address] Care Team Providers Care Rheumatologist Name Role Phone Shilo Soares MD Primary Care Provider [phone] Encounter Details Date Type Department Care Team (Late st Contact Info) Description 07/25/2023 External Device Data STL ABSTRACTION Provider, Abstract [...] st Contact Info) Description 08/04/2024 1:00 PM ADHESIVE BANDAGE MAKING OPERATOR Appointment Randy Hall [facility] Infusion Center 2nd Fl [address] [place] [phone] Aviva Humphries MD [address] [facility] [address] [place] [address] Infusion Chair 5, 2nd Floor [place] 08/25/2024 1:00 PM ADHESIVE BANDAGE MAKING OPERATOR Office Visit [facility] Gynecologic Oncology [place] [address] [facility] [address] [place] [address] Edilia Pettit NP [address] [facility] [address] [place] [address] 08/25/2024 1:30 PM ADHESIVE BANDAGE MAKING OPERATOR Appointment Randy Hall [facility] Infusion Center 2nd Fl [address] [place] [address] Aviva Humphries MD [address] [facility] [address] [place] [address] Infusion Chair 1, 2nd Floor [place] 09/01/2024 10:45 AM ADHESIVE BANDAGE MAKING OPERATOR Appointment [facility] Nuclear Medicine [address] [place] [address] [id number] Edilia Pettit, CHELY [address] [place] [address] documented as of this encounter Visit Diagnoses Not on filedocumented in this encounter Care Teams Rheumatologist Relationship Specialty Start Date End Date Shilo Soares MD [address] [facility] 2 [place] [address] PCP - General Internal Medicine 04/24/23 documented as of this encounter
--- OUTSIDE RECORDS SUMMARY | 2024-07-26 23:59 | XMS_ITS | Encounter Summary ---
Author Organization [facility] Address [address] [place] [address] Care Team Providers Care Veterinarian Laboratory Animal Care Name Role Phone Shilo Soares MD Primary Care Provider [phone] Reason for Visit * Reason Onset Date Comments Follow Up 07/20/2023 Encounter Details Date Type Department Care Team (Late st Contact Info) Description 07/20/2023 Telephone [facility] Gynecologic Oncology [place] [address] [facility] [address] [place] [address] Aviva Humphries MD [address] [place] [address] Follow Up Social History Tobacco [...] Encounter - Stevie Chavarria RN - 07/20/2023 12:[address] scan is authorized patients appointment moved to 07/22 at 8:15. D CROP HARVEST WORKER documented in this encounter Plan of Treatment Upcoming Encounters Date Type Department Care Team (Late st Contact Info) Description 08/04/2024 1:00 PM FIELD CROP HARVEST WORKER Appointment [facility] [address] [address] Aviva Humphries MD [address] [place] [address] Infusion Chair 5, 2nd Floor [place] 08/25/2024 1:00 PM FIELD CROP HARVEST WORKER Office Visit [facility] Gynecologic Oncology [place] [address] [place] [address] Edilia Pettit NP [address] [place] [address] 08/25/2024 1:30 PM FIELD CROP HARVEST WORKER Appointment [facility] Infusion Center [facility] [address] [place] [address] Aviva Humphries MD [address] [place] [address] Infusion Chair 1, 2nd [facility] 09/01/2024 10:45 AM FIELD CROP HARVEST WORKER Appointment Randy Proctor [facility] Nuclear Medicine [address] [place] [address] [id number] Edilia Pettit, CHELY [address] [facility] [address] [place] [address] documented as of this encounter Visit Diagnoses Not on filedocumented in this encounter Care Teams Veterinarian Laboratory Animal Care Relationship Specialty Start Date End Date Shilo Soares MD [address] [place] [address] PCP - General Internal Medicine 04/24/23 documented as of this encounter
--- OUTSIDE RECORDS SUMMARY | 2024-07-26 23:59 | XMS_ITS | Encounter Summary ---
Author Organization [facility] Address [address] [place] [address] Care Team Providers Care Hoisting Pile Driving Engineer Name Role Phone Shilo Soares MD Primary Care Provider [phone] Encounter Details Date Type Department Care Team (Late Contact Info) Description 06/18/2023 Orders Only [facility] Gynecologic Oncology Hall [address] [place] [address] Aviva Humphries MD [address] [place] [address] Social History Tobacco Use Types [...] Contact Info) Description 08/04/2024 1:00 PM METAL HANGING SUPERVISOR Appointment [facility] 2nd Fl [address] [place] [address] Aviva Humphries MD [address] [place] [address] Infusion Chair 5, 2nd Floor [place] 08/25/2024 1:00 PM METAL HANGING SUPERVISOR Office Visit [facility] Gynecologic Oncology Hall [address] [place] [address] Edilia Pettit NP [address] [address] [place] [address] 08/25/2024 1:30 PM METAL HANGING SUPERVISOR Appointment [facility] 2nd Fl [address] [place] [address] Aviva Humphries MD [address] [place] [address] Infusion Chair 1, 2nd Floor [place] 09/01/2024 10:45 AM METAL HANGING SUPERVISOR Appointment [facility] Nuclear Medicine [address] [place] [address] [id number] Edilia Pettit, CHELY [address] [facility] [address] [place] [address] documented as of this encounter Visit Diagnoses Not on filedocumented in this encounter Care Teams Hoisting Pile Driving Engineer Relationship Specialty Start Date End Date Shilo Soares MD [address] [place] [address] PCP - General Internal Medicine 04/24/23 documented as of this encounter
--- OUTSIDE RECORDS SUMMARY | 2024-07-26 23:59 | XMS_ITS | Encounter Summary ---
Author Organization [facility] Address [address] [place] [address] Care Team Providers Care Creative/Art Director Name Role Phone Shilo Soares MD Primary Care Provider [phone] Encounter Details Date Type Department Care Team (Late st Contact Info) Description 06/27/2023 External Device Data STL ABSTRACTION Provider, Abstract [...] st Contact Info) Description 08/04/2024 1:00 PM CAN REFORMING MACHINE OPERATOR Appointment Randy [facility] Infusion Center 2nd Fl [address] [place] [phone] Aviva Humphries MD [address] [place] [address] Infusion Chair 5, 2nd Floor Hall 08/25/2024 1:00 PM CAN REFORMING MACHINE OPERATOR Office Visit [facility] Gynecologic Oncology Hall [address] [facility] [address] [place] [address] Edilia Pettit NP [address] [facility] [address] [place] [address] 08/25/2024 1:30 PM CAN REFORMING MACHINE OPERATOR Appointment Randy Hall [facility] Infusion Center 2nd Fl [address] [place] [address] Aviva Humphries MD [address] [place] [address] Infusion Chair 1, 2nd Floor Hall 09/01/2024 10:45 AM CAN REFORMING MACHINE OPERATOR Appointment [facility] Nuclear Medicine [address] [place] [address] [id number] Edilia Pettit, CHELY [address] [facility] [address] [address] [place] [address] documented as of this encounter Visit Diagnoses Not on filedocumented in this encounter Care Teams Creative/Art Director Relationship Specialty Start Date End Date Shilo Soares MD [address] [facility] 2 [place] [address] PCP - General Internal Medicine 04/24/23 documented as of this encounter
--- OUTSIDE RECORDS SUMMARY | 2024-07-26 23:59 | XMS_ITS | Encounter Summary ---
Author Organization [facility] Address [address] [place] [address] Care Team Providers Care Tabber Name Role Phone Shilo Soares MD Primary Care Provider [phone] Encounter Details Date Type Department Care Team (Late st Contact Info) Description 06/23/2023 External Device Data STL ABSTRACTION Provider, Abstract [...] st Contact Info) Description 08/04/2024 1:00 PM TOURS CAPTAIN Appointment Randy Hall [facility] Infusion Center 2nd Fl [address] [place] [phone] Aviva Humphries MD [address] [facility] [address] [place] [address] Infusion Chair 5, 2nd Floor Hall 08/25/2024 1:00 PM TOURS CAPTAIN Office Visit [facility] Gynecologic Oncology Hall [address] [facility] [address] [place] [address] Edilia Pettit NP [address] [facility] [address] [place] [address] 08/25/2024 1:30 PM TOURS CAPTAIN Appointment Randy Hall [facility] Infusion Center 2nd Fl [address] [place] [address] Aviva Humphries MD [address] [facility] [address] [place] [address] Infusion Chair 1, 2nd Floor Hall 09/01/2024 10:45 AM TOURS CAPTAIN Appointment [facility] Medicine [address] [place] [address] [id number] Edilia Pettit, CHELY [address] [place] [address] documented as of this encounter Visit Diagnoses Not on filedocumented in this encounter Care Teams Tabber Relationship Specialty Start Date End Date Shilo Soares MD [address] [facility] 2 [place] [address] PCP - General Internal Medicine 04/24/23 documented as of this encounter
--- OUTSIDE RECORDS SUMMARY | 2024-07-26 23:59 | XMS_ITS | Encounter Summary ---
Author Organization [facility] Address [address] [place] [address] Care Team Providers Care Thermograph Operator Name Role Phone Shilo Soares MD Primary Care Provider [phone] Encounter Details Date Type Department Care Team (Late st Contact Info) Description 07/09/2023 External Device Data STL ABSTRACTION Provider, Abstract [...] st Contact Info) Description 08/04/2024 1:00 PM ACTIVITY AID Appointment Randy Hall [facility] Infusion Center 2nd Fl [address] [place] [phone] Aviva Humphries MD [address] [facility] [address] [place] [address] Infusion Chair 5, 2nd Floor Hall 08/25/2024 1:00 PM ACTIVITY AID Office Visit [facility] Gynecologic Oncology Hall [address] [facility] [address] [place] [address] Edilia Pettit NP [address] [facility] [address] [place] [address] 08/25/2024 1:30 PM ACTIVITY AID Appointment Randy Hall [facility] Infusion Center 2nd Fl [address] [place] [address] Aviva Humphries MD [address] [facility] [address] [place] [address] Infusion Chair 1, 2nd Floor Hall 09/01/2024 10:45 AM ACTIVITY AID Appointment [facility] [address] [place] [address] [id number] Edilia Pettit, CHELY [address] [place] [address] documented as of this encounter Visit Diagnoses Not on filedocumented in this encounter Care Teams Thermograph Operator Relationship Specialty Start Date End Date Shilo Soares MD [address] [facility] 2 [place] [address] PCP - General Internal Medicine 04/24/23 documented as of this encounter
--- OUTSIDE RECORDS SUMMARY | 2024-07-26 23:59 | XMS_ITS | Encounter Summary ---
Author Organization [facility] Address [address] [place] [address] Care Team Providers Care Mold Closer Helper Name Role Phone Shilo Soares MD Primary Care Provider [phone] Reason for Visit * Reason Onset Date Comments Follow Up 07/20/2023 Encounter Details Date Type Department Care Team ([facility] Contact Info) Description 07/20/2023 Telephone [facility] Gynecologic Oncology Hall [address] [place] [address] Aviva Humphries MD [address] [facility] [address] [place] [address] Follow Up Social History Tobacco [...] Encounter - Stevie Chavarria RN - 07/20/2023 11:59 AM CST Spoke with patient in regards to CT. Per [facility] imaging insurance requires a PA so appointment will be cancelled. Stat CT orders placed for patient to obtain with [facility]. Patient is to call central scheduling at [phone] to schedule. Patients appointment moved to 07/[address] Humphries in regards to discuss CT. [employer] documented in this encounter Plan of Treatment Upcoming Encounters Date Type Department Care Team (Late st Contact Info) Description 08/04/2024 1:00 PM SUPERVISOR [employer] Appointment [facility] Infusion Center 2nd Fl [address] [place] [address] Aviva Humphries MD [address] [place] [address] Infusion Chair 5, 2nd Floor Hall 08/25/2024 1:00 PM SUPERVISOR [employer] Office Visit [facility] Gynecologic Oncology [place] [address] [facility] [address] [place] [address] Edilia Pettit, CHELY [address] [facility] [address] [place] [address] 08/25/2024 1:30 PM SUPERVISOR [employer] Appointment [facility] Infusion Center 2nd Fl [address] [place] [address] Aviva Humphries MD [address] [facility] [address] [place] [address] Infusion Chair 1, [address] [place] [address] 09/01/2024 10:45 AM SUPERVISOR [employer] Appointment [facility] Nuclear Medicine [address] [place] [address] [id number] Edilia Pettit, CHELY [address] [address] documented as of this encounter Visit Diagnoses Not on filedocumented in this encounter Care Teams Mold Closer Helper Relationship Specialty Start Date End Date Shilo Soares MD [address] [place] [address] PCP - General Internal Medicine 04/24/23 documented as of this encounter
--- OUTSIDE RECORDS SUMMARY | 2024-07-26 23:59 | XMS_ITS | Encounter Summary ---
Author Organization [facility] Address [address] [place] [address] Care Team Providers Care Hospice Superintendent Name Role Phone hSilo Soares MD Primary Care Provider [phone] Encounter Details Date Type Department Care Team (Late st Contact Info) Description 07/26/2023 External Device Data STL ABSTRACTION Provider, Abstract [...] st Contact Info) Description 08/04/2024 1:00 PM HISTOPATHOLOGY TECHNICIAN Appointment [facility] Infusion Center 2nd Fl [address] [place] [address] Aviva Humphries MD [address] [facility] [address] [place] [address] Infusion Chair 5, 2nd Floor Hall 08/25/2024 1:00 PM HISTOPATHOLOGY TECHNICIAN Office Visit [facility] Gynecologic Oncology Hall [address] [facility] [address] [place] [address] Edilia Pettit NP [address] [facility] [address] [place] [address] 08/25/2024 1:30 PM HISTOPATHOLOGY TECHNICIAN Appointment Randy Hall [facility] Infusion Center 2nd Fl [address] [place] [address] Aviva Humphries MD [address] [facility] [address] [place] [address] Infusion Chair 1, 2nd Floor Hall 09/01/2024 10:45 AM HISTOPATHOLOGY TECHNICIAN Appointment [facility] [address] [place] [address] [id number] Edilia Pettit, CHELY [address] [facility] [address] [place] [address] documented as of this encounter Visit Diagnoses Not on filedocumented in this encounter Care Teams Hospice Superintendent Relationship Specialty Start Date End Date Shilo Soares MD [address] [facility] 2 [place] [address] PCP - General Internal Medicine 04/24/23 documented as of this encounter
--- OUTSIDE RECORDS SUMMARY | 2024-07-26 23:59 | XMS_ITS | Encounter Summary ---
Author Organization [facility] Address [address] [place] [address] Care Team Providers Care Boiler Tube Blower Name Role Phone Shilo Soares MD Primary Care Provider [phone] Encounter Details Date Type Department Care Team (Late st Contact Info) Description 07/06/2023 External Device Data STL ABSTRACTION Provider, Abstract [...] st Contact Info) Description 08/04/2024 1:00 PM FIRE CHIEF'S AIDE Appointment Randy Hall [facility] Infusion Center 2nd Fl [address] [place] [address] Aviva Humphries MD [address] [facility] [address] [place] [address] Infusion Chair 5, 2nd Floor Hall 08/25/2024 1:00 PM FIRE CHIEF'S AIDE Office Visit [facility] Gynecologic Oncology Hall [address] [facility] [address] [place] [address] Edilia Pettit NP [address] [facility] [address] [place] [address] 08/25/2024 1:30 PM FIRE CHIEF'S AIDE Appointment Randy Hall [facility] Infusion Center 2nd Fl [address] [place] [address] Aviva Humphries MD [address] [facility] [address] [place] [address] Infusion Chair 1, 2nd Floor Hall 09/01/2024 10:45 AM FIRE CHIEF'S AIDE Appointment [facility] [address] [place] [address] [id number] Edilia Pettit, CHELY [address] [facility] [address] [place] [address] documented as of this encounter Visit Diagnoses Not on filedocumented in this encounter Care Teams Boiler Tube Blower Relationship Specialty Start Date End Date Shilo Soares MD [address] [facility] 2 [place] [address] PCP - General Internal Medicine 04/24/23 documented as of this encounter
--- OUTSIDE RECORDS SUMMARY | 2024-07-27 | XMS_ITS | Encounter Summary ---
Author Organization [facility] Address [address] [place] [address] Care Team Providers Care Bottom Bleacher Name Role Phone Shilo Soares MD Primary Care Provider [phone] Encounter Details Date Type Department Care Team (Late st Contact Info) Description 06/17/2023 External Device Data STL ABSTRACTION Provider, Abstract [...] st Contact Info) Description 08/04/2024 1:00 PM SHIPPING RECEIVING MANAGER Appointment Randy Hall [facility] Infusion Center 2nd Fl [address] [place] [address] Aviva Humphries MD [address] [facility] [address] [place] [address] Infusion Chair 5, 2nd Floor Hall 08/25/2024 1:00 PM SHIPPING RECEIVING MANAGER Office Visit [facility] Gynecologic Oncology Hall [address] [facility] [address] [place] [address] Edilia Pettit NP [address] [facility] [address] [place] [address] 08/25/2024 1:30 PM SHIPPING RECEIVING MANAGER Appointment Randy Hall [facility] Infusion Center 2nd Fl [address] [place] [address] Aviva Humphries MD [address] [facility] [address] [place] [address] Infusion Chair 1, 2nd Floor Hall 09/01/2024 10:45 AM SHIPPING RECEIVING MANAGER Appointment [facility] [address] [place] [address] [phone] Edilia Pettit, CHELY [address] [address] [facility] [address] [place] [address] documented as of this encounter Visit Diagnoses Not on filedocumented in this encounter Care Teams Bottom Bleacher Relationship Specialty Start Date End Date Shilo Soares MD [address] [facility] 2 [place] [address] PCP - General Internal Medicine 04/24/23 documented as of this encounter
--- OUTSIDE RECORDS SUMMARY | 2024-07-27 | XMS_ITS | Encounter Summary ---
Author Organization [facility] Address [address] [place] [address] Care Team Providers Care Research Mechanic Name Role Phone Shilo Soares MD Primary Care Provider [phone] Encounter Details Date Type Department Care Team (Late st Contact Info) Description 06/16/2023 External Device Data STL ABSTRACTION Provider, Abstract [...] st Contact Info) Description 08/04/2024 1:00 PM FLAME HARDENING MACHINE OPERATOR Appointment Randy Hall [facility] Infusion Center 2nd Fl [address] [place] [address] Aviva Humphries MD [address] [facility] [address] [place] [address] Infusion Chair 5, 2nd Floor Hall 08/25/2024 1:00 PM FLAME HARDENING MACHINE OPERATOR Office Visit [facility] Gynecologic Oncology Hall [address] [facility] [address] [place] [address] Edilia Pettit NP [address] [facility] [address] [place] [address] 08/25/2024 1:30 PM FLAME HARDENING MACHINE OPERATOR Appointment Randy Hall [facility] Infusion Center 2nd Fl [address] [place] [address] Aviva Humphries MD [address] [facility] [address] [place] [address] Infusion Chair 1, 2nd Floor Hall 09/01/2024 10:45 AM FLAME HARDENING MACHINE OPERATOR Appointment [facility] [address] [place] [address] [phone] Edilia Pettit, CHELY [address] [facility] [address] [place] [address] documented as of this encounter Visit Diagnoses Not on filedocumented in this encounter Care Teams Research Mechanic Relationship Specialty Start Date End Date Shilo Soares MD [address] [facility] 2 [place] [address] PCP - General Internal Medicine 04/24/23 documented as of this encounter
--- OUTSIDE RECORDS SUMMARY | 2024-07-27 | XMS_ITS | Encounter Summary ---
Author Organization [employer] Address [address] [place] [address] Care Team Providers Care Supervisor Blood Name Role Phone Shilo Soares MD Primary Care Provider [phone] Encounter Details Date Type Department Care Team (Latest Contact Info) Description 06/18/2023 8:00 AM LOCOMOTIVE ELECTRICIAN - 06/18/2023 11:59 PM [facility] Hospital Encounter Randy Hall Cancer [facility] Center [facility] [address] [place] [address] Aviva Humphries MD [address] [place] [address] Discharge Disposition: Home or [...] Sig Dispensed Refills Start Date End Date ondansetron (Zofran) 8 mg Tablet Take 1 [...] bedtime. 02/26/2021 fluticasone propionate (FLONASE) 50 mcg/spray [place], Suspension nasal inhaler Administer 2 Sprays in each nostril daily. omega-3 fatty acids-fish oil 300-1,000 mg Capsule Take 2 Capsules by mouth daily. benzonatate (TESSALON) 200 mg capsule Take 1 Capsule (200 mg) by mouth 3 times daily for 7 days. 21 Capsule 06/18/2023 06/25/2023 lidocaine-prilocaine (EMLA) 2.5-2.5 % Cream Apply a thin layer over port site 30-45 minutes prior to chemotherapy. 30 Gram 05/22/2023 10/05/2023 cetirizine (ZyrTEC) 10 mg tablet Take 10 mg by mouth 2 times daily. 07/22/2023 documented as of this encounter Plan of Treatment Upcoming Encounters Date Type Department Care Team (Late st Contact Info) Description 08/04/2024 1:00 PM LOCOMOTIVE ELECTRICIAN Appointment Randy Hall Cancer [facility] Infusion Center [facility] [address] [place] [address] Aviva Humphries MD [address] [facility] [address] [place] [phone] Infusion Chair 5, 2nd Floor Hall 08/25/2024 1:00 PM LOCOMOTIVE ELECTRICIAN Office Visit [facility] [id number] [place] [address] Edilia Pettit NP [id number] [place] [address] 08/25/2024 1:30 PM LOCOMOTIVE ELECTRICIAN Appointment Randy Hall [facility] Infusion Center 2nd Fl [address] [place] [address] Aviva Humphries MD [address] [facility] [address] [place] [phone] Infusion Chair 1, 2nd Floor Hall 09/01/2024 10:45 AM LOCOMOTIVE ELECTRICIAN Appointment Randy Sutt Cancer [facility] Nuclear Medicine [address] [place] [phone] [id number] Edilia Pettit, CHELY [address] [place] [address] documented as of this encounter Procedures Procedure Name Priority Date/Time Associated Diagnosis Comments CANCER ANTIGEN 125 Routine 06/18/2023 8: 16 AM LOCOMOTIVE ELECTRICIAN Malignant neoplasm of ovary, unspecified laterality CBC WITH DIFFERENTIAL Stat 06/18/2023 8:16 AM LOCOMOTIVE ELECTRICIAN Malignant neoplasm of ovary, unspecified laterality URINALYSIS W/REFLEX MICROSCOPIC Stat 06/18/2023 8:16 AM LOCOMOTIVE ELECTRICIAN Malignant neoplasm of ovary, unspecified laterality MAGNESIUM LEVEL Stat 06/18/2023 8:16 AM LOCOMOTIVE ELECTRICIAN Malignant neoplasm of ovary, unspecified laterality COMPREHENSIVE METABOLIC PANEL Stat 06/18/2023 8:16 AM LOCOMOTIVE ELECTRICIAN Malignant neoplasm of ovary, unspecified laterality documented in this encounter Results * (ABNORMAL) CANCER ANTIGEN 125 (06/18/2023 8:16 AM LOCOMOTIVE ELECTRICIAN) CA 125 57(H) <35 U/mL [employer] [facility] Comment: This test was performed using the Siemens Chemiluminescent method. Values obtained from different assay methods cannot be used interchangeably. CA 125 levels, regardless of value, should not be interpreted as absolute evidence of the presence or absence of disease. Test Performed at: [facility] [address] [place], [place] ??[phone] Radha Perez MD Blood 06/18/2023 8:16 AM LOCOMOTIVE ELECTRICIAN 06/18/2023 8:27 AM LOCOMOTIVE ELECTRICIAN Aviva Humphries MD CHEMISTRY ORDERABLES [facility] [phone] [facility] [place] [address] * URINALYSIS WITH REFLEX MICROSCOPIC (06/18/2023 8:16 AM LOCOMOTIVE ELECTRICIAN) COLOR UA Pale Yellow Pale to Dark Yellow 06/18/2023 8:55 AM [facility] [employer] [facility] - [facility] CLARITY UA Clear Clear 06/18/2023 8:55 AM [facility] [employer] [facility] SPECIFIC GRAVITY UA 1.005 1.003 - 1.035 06/18/2023 8:55 AM [facility] [employer] [facility] PH UA 5.0 5.0 - 8.0 06/18/2023 8:55 AM [facility] [employer] [facility] LEUKOCYTE ESTERASE UA Negative Negative 06/18/2023 8:55 AM [facility] [employer] [facility] NITRITE UA Negative Negative 06/18/2023 8:55 AM [facility] [employer] [facility] PROTEIN UA Negative Negative 06/18/2023 8:55 AM [facility] [employer] [facility] GLUCOSE UA Negative Negative 06/18/2023 8:55 AM [facility] [employer] [facility] KETONES UA Negative Negative 06/18/2023 8:55 AM [facility] [employer] [facility] UROBILINOGEN UA Normal <2.0 mg/dL 8:55 AM [facility] [employer] [facility] BILIRUBIN UA Negative Negative 06/18/2023 8:55 AM [facility] [employer] [facility] BLOOD UA Negative Negative 06/18/2023 8:55 AM [facility] [employer] [facility] Urine URINE SPECIMEN OBTAINED BY CLEAN CATCH PROCEDURE / Unknown Collection / Unknown 06/18/2023 8:16 AM LOCOMOTIVE ELECTRICIAN 06/18/2023 8:46 AM LOCOMOTIVE ELECTRICIAN Aviva Humphries MD URINE ORDERABLES [facility] [employer] [facility]# [id number] 5 [facility] [place] [id number] * MAGNESIUM LEVEL (06/18/2023 8:16 AM LOCOMOTIVE ELECTRICIAN) MAGNESIUM 2.1 1.6 - 2.4 mg/dL 06/18/2023 9:05 AM [facility] [employer] [facility] Blood Collection / Unknown 06/18/2023 8:16 AM LOCOMOTIVE ELECTRICIAN 06/18/2023 8:26 AM LOCOMOTIVE ELECTRICIAN Aviva Humphries MD CHEMISTRY ORDERABLES [facility] [employer] [id number] [address] [facility] [place] [address] * (ABNORMAL) COMPREHENSIVE METABOLIC PANEL (06/18/2023 8:16 AM LOCOMOTIVE ELECTRICIAN) SODIUM 140 136 - 145 mmol/L 06/18/2023 9:05 AM [facility] POTASSIUM 4.0 3.5 - 5.0 mmol/L 06/18/2023 9:05 AM [facility] CHLORIDE 103 98 - 107 mmol/L 06/18/2023 9:05 AM [facility] CO2 27 22 - 29 mmol/L 06/18/2023 9:05 AM [facility] CALCIUM 9.3 8.6 - 10.2 mg/dL 06/18/2023 9:05 AM [facility] BUN 5(L) 8 - 23 mg/dL 06/18/2023 9:05 AM [facility] CREATININE 0.56 0.51 - 0.95 mg/dL 06/18/2023 9:05 AM [facility] GLUCOSE 94 74 - 99 mg/dL 06/18/2023 9:05 AM [facility] TOTAL PROTEIN 7.4 6.7 - 8.6 g/dL 06/18/2023 9:05 AM [facility] ALBUMIN 3.6 3.5 - 5.2 g/dL 06/18/2023 9:05 AM [facility] BILIRUBIN TOTAL 0.3 0.2 - 1.1 mg/dL 06/18/2023 9:05 AM [facility] ALKALINE PHOSPHATASE 130(H) 35 - 104 U/L 06/18/2023 9:05 AM [facility] AST 38(H) <33 U/L 06/18/2023 9:05 AM [facility] ALT 36(H) <34 U/L 06/18/2023 9:05 AM [facility] GFR >60 >=60 mL/min/1.7 3 sq meter 06/18/2023 9:05 AM [facility] Comment:eGFR calculated with 2020 CKD-EPI equation. Vegetarian diet, extremely high or low muscle mass, and may affect results. Cystatin C with Glomerular Filtration Rate is a suitable alternative for these patients. ANION GAP 10 8 - 16 mmol/L 06/18/2023 9:05 AM [facility] Blood Collection / Unknown 06/18/2023 8:16 AM LOCOMOTIVE ELECTRICIAN 06/18/2023 8:26 AM [facility] - 06/18/2023 9:05 AM [facility] Samples containing indocyanine green cause interferences on Total and/or Direct Bilirubin and must not be measured. Aviva Humphries MD CHEMISTRY ORDERABLES [facility]# [id number] [address] [place] [address] * (ABNORMAL) CBC WITH DIFFERENTIAL (06/18/2023 8:16 AM LOCOMOTIVE ELECTRICIAN) Pathologist [facility] WBC 8.5 4.0 - 9.8 K/uL 06/18/2023 8:24 AM [facility] RBC 3.96 3.90 - 4.90 M/uL 06/18/2023 8:24 AM [facility] HEMOGLOBIN 10.4(L) 11.8 - 14.8 g/dL 06/18/2023 8:24 AM [facility] HEMATOCRIT 32.8(L) 35.5 - 44.0 % 06/18/2023 8:24 AM [facility] MCV 82.8 82.0 - 99.0 fL 06/18/2023 8:24 AM LOCOMOTIVE ELECTRICIAN [facility] MCH 26.3(L) 27.2 - 32.6 pg 06/18/2023 8:24 AM [facility] MCHC 31.7 31.5 - 35.5 g/dL 06/18/2023 8:24 AM [facility] RDW 16.5(H) 11.5 - 14.5 % 06/18/2023 8:24 AM [facility] RDW-STDEV 45.1 37.1 - 48.7 fL 06/18/2023 8:24 AM [facility] - [facility] PLATELETS 530(H) 140 - 350 K/uL 06/18/2023 8:24 AM [facility] MPV 8.4(L) 9.3 - 12.4 fL 06/18/2023 8:24 AM [facility] NEUTROPHILS 73 % 06/18/2023 8:24 AM [facility] LYMPHOCYTES 19 % 06/18/2023 8:24 AM [facility] MONOCYTES 7 % 06/18/2023 8:24 AM [facility] EOSINOPHILS 0 % 06/18/2023 8:24 AM [facility] - . [facility] BASOPHILS 1 % 06/18/2023 8:24 AM [facility] - . [facility] IMMATURE GRANULOCYTES 1 % 06/18/2023 8:24 AM [facility] Comment:IG (Immature Granulo cyte) count includes Metamyelocytes, Myelocytes, and Promyelocytes NEUTROPHIL ABSOLUTE 6.23 1.90 - 7.00 K/uL 06/18/2023 8:24 AM [facility] LYMPHOCYTE ABSOLUTE 1.60 0.70 - 4.50 K/uL 06/18/2023 8:24 AM [facility] - . [facility] MONOCYTE ABSOLUTE 0.60 0.10 - 1.30 K/uL 06/18/2023 8:24 AM LOCOMOTIVE ELECTRICIAN [facility]ORATORY SERVICES - [facility] EOSINOPHIL ABSOLUTE 0.02 0.00 - 0.70 K/uL 06/18/2023 8:24 AM LOCOMOTIVE ELECTRICIAN [facility] LABORATORY [facility] - . [facility] BASOPHILS ABSOLUTE 0.04 0.00 - 0.20 K/uL 06/18/2023 8:24 AM LOCOMOTIVE ELECTRICIAN [facility]ORATORY SERVICES - [facility] IMMATURE GRANULOCYTES ABSOLUTE 0.04(H) 0.00 - 0.03 K/uL 06/18/2023 8:24 AM LOCOMOTIVE ELECTRICIAN [facility] LABORATORY [facility] Blood Collection / Unknown 06/18/2023 8:16 AM LOCOMOTIVE ELECTRICIAN 06/18/2023 8:22 AM LOCOMOTIVE ELECTRICIAN Aviva Humphries MD HEMATOLOGY ORDERABLE S [facility] LABORATORY [facility]# [id number] [facility] [place] [address] documented in this encounter Visit Diagnoses Diagnosis Malignant neoplasm of ovary, unspecified laterality documented in this encounter Administered Medications Inactive Administered Medications - up to 3 most recent administrations Medication Order MAR Action Action Date Dose Rate Site sodium chloride flush injection 20 mL 20 mL, IV, SEE ADMIN INSTRUCTIONS, Starting on Peace 06/18/23 at 0815, Until Thu06/19/23 at 0312, Routine Given 06/18/2023 8:16 AM LOCOMOTIVE ELECTRICIAN 20 mL documented in this encounter Care Teams Supervisor Blood Relationship Specialty Start Date End Date Shilo Soares MD [address] [place] [address] PCP - General Internal Medicine 04/24/23 documented as of this encounter
--- OUTSIDE RECORDS SUMMARY | 2024-07-27 | XMS_ITS | Encounter Summary ---
Author Organization [employer] Address [address] [place] [address] Care Team Providers Care Underground Heavy Equipment Operator Name Role Phone Shilo Soares MD Primary Care Provider [phone] Reason for Visit * Tx/Med Therapy Plan [...] BENADRYL, PEPCID Aviva Humphries MD [address] [facility] [address] [place] [address] [facility] Infusion [place] 2nd Floor [place] [address] [place] [address] Referral ID Status Reason Start Date Expiration Date V isits Requested Visits Authorized [id number] Authorized 05/20/2023 05/26/2025 99 99 Encounter Details Date Type Department Care Team (Latest Contact Info) Description 06/18/2023 9:00 AM ELECTRONIC TECHNICIAN - 06/18/2023 11:59 PM [facility] Hospital Encounter [facility] Infusion Center 2nd Fl [address] [place] [address] Aviva Humphries MD [address] [facility] [address] [place] [address] Infusion Chair 1, 2nd Floor Hall Discharge Disposition: Home or [...] Sign Reading Time Taken Comments Blood Pressure 134/71 06/18/2023 10:01 AM ELECTRONIC TECHNICIAN Pulse 96 06/18/2023 10:01 AM ELECTRONIC TECHNICIAN Temperature 36.4 ??C (97.5 ??F) 06/18/2023 10:[address] Respiratory Rate 18 06/18/2023 10:01 AM ELECTRONIC TECHNICIAN Oxygen Saturation - - Inhaled Oxygen Concentration - - Weight 45.9 kg (101 lb 3.2 oz) 06/18/2023 10:01 AM ELECTRONIC TECHNICIAN Height - - Body Mass Index 16.33 05/25/2023 7:18 AM CDT documented in this encounter Medications [...] bedtime. 02/26/2021 fluticasone propionate (FLONASE) 50 mcg/spray [place], Suspension nasal inhaler Administer 2 Sprays in [...] Progress Notes * Ibeth Reyes RN - 06/18/2023 9:00 AM CST Pt admitted to infusion center for treatment. Labs reviewed per 2 licensed providers and okay to treat per parameters. Prior to chemotherapy administration: reviewed with pt the goal of chemotherapy regimen, the method of administration, and potential side effects. Taxol, carbo, Mvasi administered via port without adverse effects. Good blood return obtained from port. Instructed pt to notify physician or go to ED if fever 100.5 F or higher, chills, or any change in condition. Pt verbalized understanding. Discharged home. TRONIC TECHNICIAN documented in this encounter Plan of Treatment Upcoming Encounters Date Type Department Care Team (Late st Contact Info) Description 08/04/2024 1:00 PM ELECTRONIC TECHNICIAN Appointment Randy [facility] Infusion Center 2nd Fl [address] [place] [address] Aviva Humphries MD [address] [facility] [address] [facility] [place] [address] Infusion Chair 5, 2nd Floor Hall 08/25/2024 1:00 PM ELECTRONIC TECHNICIAN Office Visit [facility] Gynecologic Oncology Hall [address] [facility] [address] [place] [address] Edilia Pettit NP [address] [facility] [address] [facility] [place] [address] 08/25/2024 1:30 PM ELECTRONIC TECHNICIAN Appointment Randy [facility] Infusion Center 2nd Fl [address] [place] [address] Aviva Humphries MD [address] [place] [address] Infusion Chair 1, 2nd Floor Rafael 09/01/2024 10:45 AM ELECTRONIC TECHNICIAN Appointment [facility] [address] [place] [address] [phone] Edilia Pettit NP [address] [facility] [address] [place] [address] documented as of this encounter Results * (ABNORMAL) CANCER ANTIGEN 125 (06/18/2023 8:16 AM ELECTRONIC TECHNICIAN) Pathologist [facility] CA 125 57(H) <35 U/mL [employer] Comment: This test was performed using the Siemens Chemiluminescent method. Values obtained from different assay methods cannot be used interchangeably. CA 125 levels, regardless of value, should not be interpreted as absolute evidence of the presence or absence of disease. Test Performed at: [facility] [address] [place], [place] ??[address] Radha Perez MD Blood 06/18/2023 8:16 AM ELECTRONIC TECHNICIAN 06/18/2023 8:27 AM ELECTRONIC TECHNICIAN Aviva Humphries MD CHEMISTRY ORDERABLES [facility] [phone] [employer] [address] * URINALYSIS WITH REFLEX MICROSCOPIC (06/18/2023 8:16 AM ELECTRONIC TECHNICIAN) Pathologist [facility] COLOR UA Pale Yellow Pale to Dark Yellow 06/18/2023 8:55 AM ELECTRONIC TECHNICIAN [facility] LABORATORY SERVICES [facility] CLARITY UA Clear Clear 06/18/2023 8:55 AM ELECTRONIC TECHNICIAN [facility] LABOR[facility]ORY SERVICES [facility] SPECIFIC GRAVITY UA 1.005 1.003 - 1.035 06/18/2023 8:55 AM ELECTRONIC TECHNICIAN [facility] LAB[facility] PH UA 5.0 5.0 - 8.0 06/18/2023 8:55 AM ELECTRONIC TECHNICIAN [facility] LEUKOCYTE ESTERASE UA Negative Negative 06/18/2023 8:55 AM ELECTRONIC TECHNICIAN [facility] NITRITE UA Negative Negative 06/18/2023 8:55 AM [facility] PROTEIN UA Negative Negative 06/18/2023 8:55 AM ELECTRONIC TECHNICIAN [facility] GLUCOSE UA Negative Negative 06/18/2023 8:55 AM ELECTRONIC TECHNICIAN [facility] KETONES UA Negative Negative 06/18/2023 8:55 AM ELECTRONIC TECHNICIAN [facility] UROBILINOGEN UA Normal <2.0 mg/dL 8:55 AM ELECTRONIC TECHNICIAN [facility] BILIRUBIN UA Negative Negative 06/18/2023 8:55 AM ELECTRONIC TECHNICIAN [facility] BLOOD UA Negative Negative 06/18/2023 8:55 AM ELECTRONIC TECHNICIAN [facility] Urine URINE SPECIMEN OBTAINED BY CLEAN CATCH PROCEDURE / Unknown Collection / Unknown 06/18/2023 8:16 AM ELECTRONIC TECHNICIAN 06/18/2023 8:46 AM ELECTRONIC TECHNICIAN Aviva Humphries MD URINE ORDERABLES [facility] CLIA# [id number] [address] [place] [address] [address] * MAGNESIUM LEVEL (06/18/2023 8:16 AM ELECTRONIC TECHNICIAN) MAGNESIUM 2.1 1.6 - 2.4 mg/dL 06/18/2023 9:05 AM ELECTRONIC TECHNICIAN [facility] LABORATORY SERVICES - [facility] Blood Collection / Unknown 06/18/2023 8:16 AM ELECTRONIC TECHNICIAN 06/18/2023 8:26 AM ELECTRONIC TECHNICIAN Aviva Humphries MD CHEMISTRY ORDERABLES [facility] CLIA# [id number] [address] [place] [place] [address] * (ABNORMAL) COMPREHENSIVE METABOLIC PANEL (06/18/2023 8:16 AM [facility]) [facility] SODIUM 140 136 - 145 mmol/L 06/18/2023 9:05 AM [facility] POTASSIUM 4.0 3.5 - 5.0 mmol/L 06/18/2023 9:05 AM [facility] CHLORIDE 103 98 - 107 mmol/L 06/18/2023 9:05 AM [facility] CO2 27 22 - 29 mmol/L 06/18/2023 9:05 AM [facility] CALCIUM 9.3 8.6 - 10.2 mg/dL 06/18/2023 9:05 AM [facility] - [facility] BUN 5(L) 8 - 23 mg/dL 06/18/2023 9:05 AM [facility] - [facility] CREATININE 0.56 0.51 - 0.95 mg/dL 06/18/2023 9:05 AM [facility] - [facility] [place] GLUCOSE 94 74 - 99 mg/dL 06/18/2023 9:05 AM [facility] - [facility] TOTAL PROTEIN 7.4 6.7 - 8.6 g/dL 06/18/2023 9:05 AM [facility] - [facility] ALBUMIN 3.6 3.5 - 5.2 g/dL 06/18/2023 9:05 AM [facility] - [facility] [place] BILIRUBIN TOTAL 0.3 0.2 - 1.1 mg/dL 06/18/2023 9:05 AM [facility] - [facility] ALKALINE PHOSPHATASE 130(H) 35 - 104 U/L 06/18/2023 9:05 AM ELECTRONIC TECHNICIAN [facility] - [facility] AST 38(H) <33 U/L 06/18/2023 9:05 AM [facility] SERVICES [facility]. [facility] ALT 36(H) <34 U/L 06/18/2023 9:05 AM [facility] SERVICES [facility]. [facility] GFR >60 >=60 mL/min/1.7 3 sq meter 06/18/2023 9:05 AM [facility] - . [facility] Comment:eGFR calculated with 2020 CKD-EPI equation. Vegetarian diet, extremely high or low muscle mass, and may affect results. Cystatin C with Glomerular Filtration Rate is a suitable alternative for these patients. ANION GAP 10 8 - 16 mmol/L 06/18/2023 9:05 AM [facility] Blood Collection / Unknown 06/18/2023 8:16 AM ELECTRONIC TECHNICIAN 06/18/2023 8:26 AM [facility] - 06/18/2023 9:05 AM [facility] Samples containing indocyanine green cause interferences on Total and/or Direct Bilirubin and must not be measured. Aviva Humphries MD CHEMISTRY ORDERABLES [facility] [employer] [facility]# [id number] [address] [place] [address] * (ABNORMAL) CBC WITH DIFFERENTIAL (06/18/2023 8:16 AM ELECTRONIC TECHNICIAN) WBC 8.5 4.0 - 9.8 K/uL 06/18/2023 8:24 AM [facility] RBC 3.96 3.90 - 4.90 M/uL 06/18/2023 8:24 AM [facility] HEMOGLOBIN 10.4(L) 11.8 - 14.8 g/dL 06/18/2023 8:24 AM [facility] [employer] [facility] HEMATOCRIT 32.8(L) 35.5 - 44.0 % 06/18/2023 8:24 AM [facility] [employer] [facility] MCV 82.8 82.0 - 99.0 fL 06/18/2023 8:24 AM [facility] [employer] MCH 26.3(L) 27.2 - 32.6 pg 06/18/2023 8:24 AM [facility] [employer] [facility] MCHC 31.7 31.5 - 35.5 g/dL 06/18/2023 8:24 AM [facility] [employer] [facility] RDW 16.5(H) 11.5 - 14.5 % 06/18/2023 8:24 AM [facility] - . [facility] RDW-STDEV 45.1 37.1 - 48.7 fL 06/18/2023 8:24 AM ELECTRONIC TECHNICIAN [facility] - . [facility] PLATELETS 530(H) 140 - 350 K/uL 06/18/2023 8:24 AM [facility] - . [facility] MPV 8.4(L) 9.3 - 12.4 fL 06/18/2023 8:24 AM [facility] NEUTROPHILS 73 % 06/18/2023 8:24 AM [facility] LYMPHOCYTES 19 % 06/18/2023 8:24 AM [facility] MONOCYTES 7 % 06/18/2023 8:24 AM [facility] - [facility] EOSINOPHILS 0 % 06/18/2023 8:24 AM [facility] - . [facility] BASOPHILS 1 % 06/18/2023 8:24 AM [facility] - . [facility] IMMATURE GRANULOCYTES 1 % 06/18/2023 8:24 AM [facility] - . [facility] Comment:IG (Immature Granulo cyte) count includes Metamyelocytes, Myelocytes, and Promyelocytes NEUTROPHIL ABSOLUTE 6.23 1.90 - 7.00 K/uL 06/18/2023 8:24 AM ELECTRONIC TECHNICIAN [facility] - . [facility] LYMPHOCYTE ABSOLUTE 1.60 0.70 - 4.50 K/uL 06/18/2023 8:24 AM [facility] - . [facility] MONOCYTE ABSOLUTE 0.60 0.10 - 1.30 K/uL 06/18/2023 8:24 AM [facility] EOSINOPHIL ABSOLUTE 0.02 0.00 - 0.70 K/uL 06/18/2023 8:24 AM [facility] BASOPHILS ABSOLUTE 0.04 0.00 - 0.20 K/uL 06/18/2023 8:24 AM [facility] - . [facility] IMMATURE GRANULOCYTES ABSOLUTE 0.04(H) 0.00 - 0.03 K/uL 06/18/2023 8:24 AM [facility] - . [facility] Blood Collection / Unknown 06/18/2023 8:16 AM ELECTRONIC TECHNICIAN 06/18/2023 8:22 AM ELECTRONIC TECHNICIAN Aviva Humphries MD HEMATOLOGY ORDERABLE S Performing Organization Address City/State/[facility] Co de Phone Number [facility] LABORATORY SERVICES [facility]# [id number] [address] [place] [address] documented in this encounter Visit Diagnoses Diagnosis [...] ONE TIME ONLY, 1 dose, On Peace 06/18/23 at 1415, Routine New Bag 06/18/2023 2:44 PM ELECTRONIC TECHNICIAN 773 mg 145.9 mL/hr CARBOplatin (PARAPLATIN) 459.5 mg in dextrose 5% 250 mL IVPB 459.5 mg (Target AUC = 5), IV, ONE TIME ONLY, 1 dose, On Peace 06/18/23 at 1345, Routine Rate Verify 06/18/2023 2:12 PM ELECTRONIC TECHNICIAN 661.9 mL/hr New Bag 06/18/2023 2:11 PM ELECTRONIC TECHNICIAN 459.5 mg 661.9 mL/hr dexAMETHasone (DECADRON) 20 mg in sodium chloride 0.9% 100 mL IVPB (PREMIX) 20 mg, IV, ONE TIME ONLY, 1 dose, On Peace 06/18/23 at 1015, Routine Rate Verify 06/18/2023 10:46 AM ELECTRONIC TECHNICIAN 300 mL/hr New Bag 06/18/2023 10:45 AM ELECTRONIC TECHNICIAN 20 mg 300 mL/hr diphenhydrAMINE (BENADRYL) injection 25 mg 25 mg, IV, ONE TIME ONLY, 1 dose, On Peace 06/18/23 at 1015, Routine Given 06/18/2023 10:17 AM ELECTRONIC TECHNICIAN 25 mg famotidine PF (PEPCID) 20 mg/2 mL injection 20 mg 20 mg, IV, ONE TIME ONLY, 1 dose, On Peace 06/18/23 at 1015, Routine Given 06/18/2023 10:17 AM ELECTRONIC TECHNICIAN 20 mg fosaprepitant (EMEND) 150 mg in sodium chloride 0.9% 150 mL IVPB (PREMIX) 150 mg, IV, ONE TIME ONLY, 1 dose, On Peace 06/18/23 at 1015, Routine Rate Verify 06/18/2023 10:45 AM ELECTRONIC TECHNICIAN 450 mL/hr New Bag 06/18/2023 10:45 AM ELECTRONIC TECHNICIAN 150 mg 450 mL/hr PACLitaxeL (TAXOL) 271 mg in sodium chloride 0.9% (PVC free) 500 mL IVPB 271 mg (rounded from 271.25 mg = 175 mg/m2 ? 1.55 m2 Treatment Plan BSA from Recorded weight), IV, ONE TIME ONLY, 1 dose, On Peace 06/18/23 at 1045, Routine Rate Verify 06/18/2023 11:10 AM ELECTRONIC TECHNICIAN 195.1 mL/hr New Bag 06/18/2023 11:10 AM ELECTRONIC TECHNICIAN 271 mg 195.1 mL/hr palonosetron (ALOXI) 0.25 mg/5 mL injection 0.25 mg 0.25 mg, IV, ONE TIME ONLY, 1 dose, On Peace 06/18/23 at 1015, Routine Given 06/18/2023 10:17 AM ELECTRONIC TECHNICIAN 0.25 mg documented in this encounter Care Teams Underground Heavy Equipment Operator Relationship Specialty Start Date End Date Shilo Soares MD [address] [place] [address] PCP - General Internal Medicine 04/24/23 documented as of this encounter
--- OUTSIDE RECORDS SUMMARY | 2024-07-27 | XMS_ITS | Encounter Summary ---
Author Organization [facility] Address [address] [place] [address] Care Team Providers Care Fleet Service Clerk Name Role Phone Shilo Soares MD Primary Care Provider [phone] Encounter Details Date Type Department Care Team (Late st Contact Info) Description 06/15/2023 External Device Data STL ABSTRACTION Provider, Abstract [...] Contact Info) Description 08/04/2024 1:00 PM CONTINUOUS MINER Appointment Randy [facility] Infusion Center 2nd Fl [address] [place] [address] Aviva Humphries MD [address] [facility] [address] [place] [address] Infusion Chair 5, 2nd Floor Hall 08/25/2024 1:00 PM CONTINUOUS MINER Office Visit [facility] Gynecologic Oncology Hall [address] [facility] [address] [place] [address] Edilia Pettit NP [address] [facility] [address] [place] [address] 08/25/2024 1:30 PM CONTINUOUS MINER Appointment Randy [facility] Infusion Center 2nd Fl [address] [place] [phone] Aviva Humphries MD [address] [facility] [address] [place] [address] Infusion Chair 1, 2nd Floor Hall 09/01/2024 10:45 AM CONTINUOUS MINER Appointment [facility] Medicine [address] [place] [address] [phone] Edilia Pettit, CHELY [address] [facility] [address] [place] [address] documented as of this encounter Visit Diagnoses Not on filedocumented in this encounter Care Teams Fleet Service Clerk Relationship Specialty Start Date End Date Shilo Soares MD [address] [facility] [address] [place] [address] PCP - General Internal Medicine 04/24/23 documented as of this encounter
--- OUTSIDE RECORDS SUMMARY | 2024-07-27 | XMS_ITS | Encounter Summary ---
Author Organization [facility] Address [address] [place] [address] Care Team Providers Care Rod Mill Operator Name Role Phone Shilo Soares MD Primary Care Provider [phone] Reason for Visit * Reason Onset Date Comments medical question 06/15/2023 Encounter Details Date Type Department Care Team (Late Contact Info) Description 06/15/2023 Telephone [facility] Gynecologic Oncology [place] [address] [facility] [address] [place] [address] Aviva Humphries MD [address] [facility] [address] [place] [address] medical question Social History Tobacco [...] Telephone Encounter - Nae Harrington RN - 06/15/2023 10:20 AM ECONOMIC DEVELOPMENT DIRECTOR Pt called and would like to know what time to come in on 06/18 for lab work. Let her know to be herat 8:00 am for labs. She voiced understanding. OMIC DEVELOPMENT DIRECTOR documented in this encounter Plan of Treatment Upcoming Encounters Date Type Department Care Team (Late Contact Info) Description 08/04/2024 1:00 PM ECONOMIC DEVELOPMENT DIRECTOR Appointment [facility]fusion Center 2nd Fl [address] [place] [address] Aviva Humphries MD [address] [place] [address] Infusion Chair 5, 2nd Floor Hall 08/25/2024 1:00 PM ECONOMIC DEVELOPMENT DIRECTOR Office Visit [facility] Gynecologic Oncology Hall [address] [facility] [address] [place] [address] Edilia Pettit, CHELY [address] [facility] [address] [place] [address] 08/25/2024 1:30 PM ECONOMIC DEVELOPMENT DIRECTOR Appointment [facility] Infusion Center 2nd Fl [address] [place] [address] Aviva Humphries MD [address] [facility] [address] [place] [address] Infusion Chair 1, 2nd Floor Hall 09/01/2024 10:45 AM ECONOMIC DEVELOPMENT DIRECTOR Appointment [facility] Nuclear Medicine [address] [place] [address] [id number] Edilia Pettit, CHELY [address] [facility] [address] [facility] [place] [address] documented as of this encounter Visit Diagnoses Not on filedocumented in this encounter Care Teams Rod Mill Operator Relationship Specialty Start Date End Date Shilo Soares MD [address] [place] [phone] PCP - General Internal Medicine 04/24/23 documented as of this encounter
--- OUTSIDE RECORDS SUMMARY | 2024-07-27 00:04 | XMS_ITS | Encounter Summary ---
Author Organization [facility] Address [address] [place] [address] Care Team Providers Care Hood Fitter Name Role Phone Shilo Soares MD Primary Care Provider [phone] Encounter Details Date Type Department Care Team (Late Contact Info) Description 06/01/2023 Orders Only [facility] Gynecologic Oncology [address] [place] [address] Aviva Humphries MD [address] [place] [address] Malignant neoplasm of ovary, unspecified [...] Contact Info) Description 08/04/2024 1:00 PM METAL SASH SETTER Appointment [facility] 2nd Fl [address] [place] [address] Aviva Humphries MD [address] [place] [address] Infusion Chair 5, 2nd Floor Rafael 08/25/2024 1:00 PM METAL SASH SETTER Office Visit [facility] Gynecologic Oncology Hall [address] [place] [address] Edilia Pettit, HEALTH PROMOTION MANAGER [address] [place] [address] 08/25/2024 1:30 PM METAL SASH SETTER Appointment Randy Hall [facility] Infusion Center 2nd Fl [address] [place] [address] Aviva Humphries MD [address] [place] [address] Infusion Chair 1, 2nd Floor Hall 09/01/2024 10:45 AM METAL SASH SETTER Appointment Randy Proctor [facility] Nuclear Medicine [address] [place] [phone] Edilia Pettit, HEALTH PROMOTION MANAGER [address] [place] [address] documented as of this encounter Procedures Procedure Name Priority Date/Time Associated Diagnosis Comments [facility]F Routine 06/18/2023 10:07 AM METAL SASH SETTER Malignant neoplasm of ovary, unspecified laterality [facility] NORMAL BLOOD Routine 06/18/2023 10:07 AM METAL SASH SETTER Malignant neoplasm of ovary, unspecified laterality [facility] XT Routine 06/01/2023 3:44 PM CDT Malignant neoplasm of ovary, unspecified laterality [facility] NGS REPORT Routine 06/01/2023 3:44 PM CDT Malignant neoplasm of ovary, unspecified laterality documented in this encounter Results * [facility] NORMAL BLOOD (06/18/2023 10:07 AM METAL SASH SETTER) [facility] 06/18/2023 11:01 PM METAL SASH SETTER [facility] Comment:See NGS Report for R esults. Blood Collection / Unknown 06/18/2023 10:07 AM METAL SASH SETTER 06/18/2023 10:12 AM METAL SASH SETTER Aviva Humphries MD MOLECULAR ORDERABLES [facility] [address], [address] [place] [address], * [facility] XF (06/18/2023 10:07 AM METAL SASH SETTER) Reason for Study To identify mutations relevant to patient's cancer. 06/28/2023 7:59 PM METAL SASH SETTER [facility] Genetic Diseases Assessed Cancer 06/28/2023 7:59 PM METAL SASH SETTER [facility] Description of Ranges of DNA Sequences Examined 105 gene liquid biopsy 06/28/2023 7:59 PM METAL SASH SETTER [facility] Overall Interpretation positive 06/28/2023 7:59 PM METAL SASH SETTER [facility] [id number] 06/28/2023 7:59 PM METAL SASH SETTER [facility] Comment:[facility] link Low Coverage Regions ERRFI1, JAK1, SPOP, TERT 06/28/2023 7:59 PM METAL SASH SETTER [facility] Therapy Count 11 06/28/2023 7:59 PM METAL SASH SETTER [facility] Tempus: Potential Therapy 1 Gene: 3430^ERBB2^HGNC Variant: Copy number gain Agent: Ado-Trastuzumab Emtansine Tissue: Breast Cancer Association: response Evidence Status: Consensus Evidence ID: NCCN Evidence URL: FDA Approved?: Yes on label?: No 06/28/2023 7:59 PM METAL SASH SETTER [facility]: Potential Therapy 2 Gene: 3430^ERBB2^HGNC Variant: Copy number gain Agent: Margetuximab-cmkb Tissue: Breast Cancer Association: response Evidence Status: Consensus Evidence ID: NCCN Evidence URL: FDA Approved?: Yes on label?: No 06/28/2023 7:59 PM METAL SASH SETTER [facility]: Potential Therapy 3 Gene: 3430^ERBB2^HGNC Variant: Copy number gain Agent: Trastuzumab Tissue: Breast Cancer Association: response Evidence Status: Consensus Evidence ID: NCCN Evidence URL: FDA Approved?: Yes on label?: No 06/28/2023 7:59 PM METAL SASH SETTER [facility] Temp[facility]: Potential Therapy 4 Gene: 3430^ERBB2^HGNC Variant: Copy number gain Agent: Capecitabine + Neratinib Tissue: Breast Cancer Association: response Evidence Status: Consensus Evidence ID: NCCN Evidence URL: FDA Approved?: Yes on label?: No 06/28/2023 7:59 PM METAL SASH SETTER [facility]: Potential Therapy 5 Gene: 3430^ERBB2^HGNC Variant: Copy number gain Agent: Capecitabine + Trastuzumab + Tucatinib Tissue: Breast Cancer Association: response Evidence Status: Consensus Evidence ID: NCCN Evidence URL: FDA Approved?: Yes on label?: No 06/28/2023 7:59 PM METAL SASH SETTER [facility]: Potential Therapy 6 Gene: 3430^ERBB2^HGNC Variant: Copy number gain Agent: Lapatinib + Capecitabine Tissue: Breast Cancer Association: response Evidence Status: Consensus Evidence ID: NCCN Evidence URL: FDA Approved?: Yes on label?: No 06/28/2023 7:59 PM METAL SASH SETTER [facility]: Potential Therapy 7 Gene: 3430^ERBB2^HGNC Variant: Copy number gain Agent: Neratinib Tissue: Breast Cancer Association: response Evidence Status: Consensus Evidence ID: NCCN Evidence URL: FDA Approved?: Yes on label?: No 06/28/2023 7:59 PM METAL SASH SETTER [facility]: Potential Therapy 8 Gene: 3430^ERBB2^HGNC Variant: Copy number gain Agent: Trastuzumab + Paclitaxel + Carboplatin Tissue: Uterine Serous Carcinoma Association: response Evidence Status: Consensus Evidence ID: NCCN Evidence URL: FDA Approved?: Yes on label?: No 06/28/2023 7:59 PM METAL SASH SETTER [facility]: Potential Therapy 9 Gene: 3430^ERBB2^HGNC Variant: Copy number gain Agent: Trastuzumab + Pembrolizumab Tissue: Gastric Adenocarcinoma Association: response Evidence Status: Consensus Evidence ID: NCCN Evidence URL: FDA Approved?: Yes on label?: No 06/28/2023 7:59 PM METAL SASH SETTER [facility]: Potential Therapy 10 Gene: 3430^ERBB2^HGNC Variant: Copy number gain Agent: Trastuzumab + Pertuzumab Tissue: Breast Cancer Association: response Evidence Status: Consensus Evidence ID: NCCN Evidence URL: FDA Approved?: Yes on label?: No 06/28/2023 7:59 PM METAL SASH SETTER [facility]: Potential Therapy 11 Gene: 3430^ERBB2^HGNC Variant: Copy number gain Agent: Trastuzumab Deruxtecan Tissue: Breast Cancer Association: response Evidence Status: Consensus Evidence ID: NCCN Evidence URL: FDA Approved?: Yes on label?: No 06/28/2023 7:59 PM METAL SASH SETTER [facility] Trial Count 3 06/28/2023 7:59 PM METAL SASH SETTER [facility]: Clinical Trial Match 1 Clinical Trial NCT ID: [id number] Clinical Trial Title: Testing the Combination of Two Anti-cancer Drugs, DS-[id number] and [id number], for The Treatment of Patients With Advanced Solid Tumors Expressing the HER2 Protein or Gene, The DASH Trial Clinical Trial URL: https://clinicalt rials.gov/ct2/ashtyn w/[id number] Clinical Phase: Phase 1 Matched criteria: ERBB2 (HER2) amplification 06/28/2023 7:59 PM METAL SASH SETTER [facility]: Clinical Trial Match 2 Clinical Trial NCT ID: [id number] Clinical Trial Title: Testing the Safety and Tolerability of the Anti-cancer Drugs Trastuzumab Deruxtecan and Neratinib for Cancers With Changes in the HER2 Gene Clinical Trial URL: https://clinicalt rials.gov/ct2/ashtyn w/[id number] Clinical Phase: Phase 1 Matched criteria: ERBB2 (HER2) amplification 06/28/2023 7:59 PM METAL SASH SETTER [facility]: Clinical Trial Match 3 Clinical Trial NCT ID: [id number] Clinical Trial Title: Immunotherapy Using Tumor Infiltrating Lymphocytes for Patients With Metastatic Cancer Clinical Trial URL: https://clinicalt rials.gov/ct2/ashtyn w/MKF62232963 Clinical Phase: Phase 2 Matched criteria: TP53 p.M237I mutation 06/28/2023 7:59 PM METAL SASH SETTER [facility] Blood Collection / Unknown 06/18/2023 10:07 AM METAL SASH SETTER 06/18/2023 10:12 AM METAL SASH SETTER Narrative This result has genomic variants that were not included in this document. Aviva Humphries MD MOLECULAR ORDERABLES [facility] [address], [address] [place] [address], * [facility] NGS REPORT (06/01/2023 3:44 PM CDT) Reason for Study To identify somatic and germline mutations relevant to patient's cancer. 06/29/2023 3:40 PM METAL SASH SETTER [facility] Genetic Diseases Assessed Cancer 06/29/2023 3:40 PM METAL SASH SETTER [facility] Description of Ranges of DNA Sequences Examined 648 gene panel 06/29/2023 3:40 PM METAL SASH SETTER [facility] Overall Interpretation positive 06/29/2023 3:40 PM METAL SASH SETTER [facility] MSI Stable 06/29/2023 3:40 PM METAL SASH SETTER [facility] TMB 5.8 m/MB 06/29/2023 3:40 PM METAL SASH SETTER [facility] [email or web address] [id number] 06/29/2023 3:40 PM METAL SASH SETTER [facility] Comment:[facility] Portal link PD-L1 (22C3) Combined Positive Score 6 06/29/2023 3:40 PM METAL SASH SETTER [facility] PD-L1 (22C3) Tumor Proportion Score 3 % 06/29/2023 3:40 PM METAL SASH SETTER [facility] Genome-wide DESIRAE 28.5 % 3:40 PM METAL SASH SETTER [facility] Cohort Specific Genome-wide DESIRAE Threshold 17 % 06/29/2023 3:40 PM METAL SASH SETTER [facility] HRD Interpretation Positive 06/29/2023 3:40 PM METAL SASH SETTER [facility] HRD Analysis Type DNA 023 3:40 PM METAL SASH SETTER [facility] Amendment Notes XT.V4 THIS AMENDED REPORT IS BEING ISSUED TO ADD POTENTIAL GERMLINE SEQUENCING RESULTS, RECATEGORIZE VARIANTS BASED ON TUMOR-NORMAL PAIRED ANALYSIS, AND ADJUST THE CLINICAL TRIAL RECOMMENDATIONS. Copy number gains in BRD4 and MYC were removed from the report. Copy number losses in GATA1 and KDM5C were removed from the report. Variants of unknown significance were recategorized based on potential germline comparison. The tumor mutational burden (TMB) of this tumor-normal matched amendment is based on the tumor only analysis. 06/29/2023 3:40 PM METAL SASH SETTER [facility] Fusion Addendum Issue Type NEGATIVE Negative - This addendum is being issued to report that no gene fusions or altered splicing variants from RNA sequencing analysis were found. 06/29/2023 3:40 PM METAL SASH SETTER [facility] Low Coverage Regions KDM5D 06/29/2023 3:40 PM METAL SASH SETTER [facility] Trial Count 2 06/29/2023 3:40 PM METAL SASH SETTER [facility]: Clinical Trial Match 1 Clinical Trial NCT ID: [id number] Clinical Trial Title: Cabozantinib and Pamiparib for the Treatment of Advanced of Refractory Solid Tumors Clinical Trial URL: https://clinical trials.gov/ct2/s how/[id number] Clinical Phase: Phase 1 Matched criteria: EMSY amplification 06/29/2023 3:40 PM METAL SASH SETTER [facility]: Clinical Trial Match 2 Clinical Trial NCT ID: [id number] Clinical Trial Title: Immunotherapy Using Tumor Infiltrating Lymphocytes for Patients With Metastatic Cancer Clinical Trial URL: https://clinical trials.gov/ct2/s how/JXZ59840834 Clinical Phase: Phase 2 Matched criteria: TP53 p.M237I mutation 06/29/2023 3:40 PM METAL SASH SETTER [facility] Tissue 06/01/2023 3:44 PM CDT 06/01/2023 3:44 PM CDT Narrative This result has genomic variants that were not included in this document. Aviva Humphries MD MOLECULAR ORDERABLES [facility] [address], [address] [place] [address], documented in this encounter Visit Diagnoses Diagnosis Malignant neoplasm of ovary, unspecified laterality- Primary documented in this encounter Care Teams Hood Fitter Relationship Specialty Start Date End Date Shilo Soares MD [address] [place] [phone] PCP - General Internal Medicine 04/24/23 documented as of this encounter
--- OUTSIDE RECORDS SUMMARY | 2024-07-27 00:04 | XMS_ITS | Encounter Summary ---
Author Organization [employer] Address [address] [place] [address] Care Team Providers Care Web Applications Developer Name Role Phone Shilo Soares MD Primary Care Provider [phone] Encounter Details Date Type Department Care Team (Latest Contact Info) Description 06/01/2023 11:25 AM CDT - 06/01/2023 11:59 PM CDT Hospital Encounter [facility] [address] [place] [address] Aviva Humphries MD [address] [place] [address] Discharge Disposition: Home or Self [...] bedtime. 02/26/2021 fluticasone propionate (FLONASE) 50 mcg/spray [place], Suspension nasal inhaler Administer 2 Sprays in [...] st Contact Info) Description 08/04/2024 1:00 PM SALESPERSON [place] [employer] Appointment Randy [facility] Infusion Center [facility] [address] [place] [address] Aviva Humphries MD [address] [facility] [address] [place] [phone] Infusion Chair 5, 2nd Floor Hall 08/25/2024 1:00 PM SALESPERSON [place] [employer] Office Visit [facility] Gynecologic Oncology [place] [address] [facility] [address] [place] [address] Edilia Pettit NP [address] [facility] [address] [place] [phone] 08/25/2024 1:30 PM SALESPERSON [place] [employer] Appointment Randy Hall [facility] Infusion Center [facility] Fl [address] [place] [address] Aviva Humphries MD [address] [facility] [address] [place] [phone] Infusion Chair 1, 2nd Floor Hall 09/01/2024 10:45 AM SALESPERSON [place] [employer] Appointment Randy Proctor [facility] Nuclear Medicine [address] [place] [address] [id number] Edilia Pettit NP [address] [facility] [address] [place] [address] documented as of this encounter Procedures Procedure Name Priority Date/Time Associated Diagnosis Comments CBC WITH DIFFERENTIAL Stat 06/01/2023 11:29 AM CDT Malignant neoplasm of ovary, unspecified laterality COMPREHENSIVE METABOLIC PANEL Stat 06/01/2023 11:29 AM CDT Malignant neoplasm of ovary, unspecified laterality documented in this encounter Results * (ABNORMAL) COMPREHENSIVE METABOLIC PANEL (06/01/2023 11:29 AM CDT) SODIUM 133(L) 136 - 145 mmol/L 06/01/2023 12:23 PM CDT [facility] POTASSIUM 4.0 3.5 - 5.0 mmol/L 06/01/2023 12:23 PM CDT [facility] CHLORIDE 94(L) 98 - 107 mmol/L 06/01/2023 12:23 PM CDT [facility] CO2 28 22 - 29 mmol/L 06/01/2023 12:23 PM CDT [facility] CALCIUM 8.6 8.6 - 10.2 mg/dL 06/01/2023 12:23 PM CDT [facility] BUN 11 8 - 23 mg/dL 06/01/2023 12:23 PM CDT [facility] CREATININE 0.64 0.51 - 0.95 mg/dL 06/01/2023 12:23 PM CDT [facility] GLUCOSE 97 74 - 99 mg/dL 06/01/2023 12:23 PM CDT [facility] TOTAL PROTEIN 7.1 6.7 - 8.6 g/dL 06/01/2023 12:23 PM CDT [facility] ALBUMIN 3.4(L) 3.5 - 5.2 g/dL 06/01/2023 12:23 PM CDT [facility] BILIRUBIN TOTAL 0.7 0.2 - 1.1 mg/dL 06/01/2023 12:23 PM T [facility] [place] PHOSPHATASE 192(H) 35 - 104 U/L 06/01/2023 12:23 PM T [facility] AST 68(H) <33 U/L 06/01/2023 12:23 PM [facility] ALT 56(H) <34 U/L 06/01/2023 12:23 PM [facility] GFR >60 >=60 mL/min/1.7 3 sq meter 06/01/2023 12:23 PM T [facility] Comment:eGFR calculated with 2020 CKD-EPI equation. Vegetarian diet, extremely high or low muscle mass, and may affect results. Cystatin C with Glomerular Filtration Rate is a suitable alternative for these patients. ANION GAP 11 8 - 16 mmol/L 06/01/2023 12:23 PM [facility] Blood Collection / Unknown 06/01/2023 11:29 AM CDT 06/01/2023 11:52 AM CDT [facility] - 06/01/2023 12:23 PM CDT Samples containing indocyanine green cause interferences on Total and/or Direct Bilirubin and must not be measured. Aviva Humphries MD CHEMISTRY ORDERABLES [facility]# [id number] [address] [place] [id number] * (ABNORMAL) CBC WITH DIFFERENTIAL (06/01/2023 11:29 AM CDT) WBC 10.4(H) 4.0 - 9.8 K/uL 06/01/2023 12:04 PM T [facility] RBC 4.57 3.90 - 4.90 M/uL 06/01/2023 12:04 PM T [facility] HEMOGLOBIN 12.0 11.8 - 14.8 g/dL 06/01/2023 12:04 PM CDT [facility] - [facility] HEMATOCRIT 37.3 35.5 - 44.0 % 06/01/2023 12:04 PM CDT [facility] MCV 81.6(L) 82.0 - 99.0 fL 06/01/2023 12:04 PM CDT [facility] MCH 26.3(L) 27.2 - 32.6 pg 06/01/2023 12:04 PM CDT [facility] MCHC 32.2 31.5 - 35.5 g/dL 06/01/2023 12:04 PM CDT [facility] RDW 14.8(H) 11.5 - 14.5 % 06/01/2023 12:04 PM CDT [facility] RDW-STDEV 43.7 37.1 - 48.7 fL 06/01/2023 12:04 PM CDT [facility] PLATELETS 446(H) 140 - 350 K/uL 06/01/2023 12:04 PM CDT [facility] MPV 10.6 9.3 - 12.4 fL 06/01/2023 12:04 PM CDT [facility] NEUTROPHILS 87 % 06/01/2023 12:04 PM CDT [facility] LYMPHOCYTES 10 % 06/01/2023 12:04 PM CDT [facility] - . [facility] MONOCYTES 1 % 06/01/2023 12:04 PM CDT [facility] - . [facility] EOSINOPHILS 1 % 06/01/2023 12:04 PM CDT [facility] BASOPHILS 0 % 06/01/2023 12:04 PM CDT [facility] - . [facility] IMMATURE GRANULOCYTES 1 % 06/01/2023 12:04 PM CDT [facility] Comment:IG (Immature Granulo cyte) count includes Metamyelocytes, Myelocytes, and Promyelocytes NEUTROPHIL ABSOLUTE 9.11(H) 1.90 - 7.00 K/uL 06/01/2023 12:04 PM CDT [facility] - . [facility] LYMPHOCYTE ABSOLUTE 1.09 0.70 - 4.50 K/uL 06/01/2023 12:04 PM CDT [facility] - [facility] MONOCYTE ABSOLUTE 0.06(L) 0.10 - 1.30 K/uL 06/01/2023 12:04 PM CDT [facility] - [facility] EOSINOPHIL ABSOLUTE 0.10 0.00 - 0.70 K/uL 06/01/2023 12:04 PM CDT [facility] - [facility] BASOPHILS ABSOLUTE 0.02 0.00 - 0.20 K/uL 06/01/2023 12:04 PM CDT [facility] - [facility] IMMATURE GRANULOCYTES ABSOLUTE 0.06(H) 0.00 - 0.03 K/uL 06/01/2023 12:04 PM CDT [facility] Blood Collection / Unknown 06/01/2023 11:29 AM CDT 06/01/2023 12:01 PM CDT Aviva Humphries MD HEMATOLOGY ORDERABLE S [facility]# [id number] [address] [facility] [place] [address] documented in this encounter Visit Diagnoses Diagnosis Malignant neoplasm of ovary, unspecified laterality documented in this encounter Administered Medications Inactive Administered Medications - up to 3 most recent administrations Medication Order MAR Action Action Date Dose Rate Site heparin, porcine (pf) 10 unit/mL IV syringe 50 Units 50 Units, IV, ONE TIME ONLY, 1 dose, On Thu06/01/23 at 1130, Routine Given 06/01/2023 11:50 AM CDT 50 Units sodium chloride flush injection 20 mL 20 mL, IV, SEE ADMIN INSTRUCTIONS, Starting on Thu06/01/23 at 1128, Until Thu06/02/23 at 0315, Routine Given 06/01/2023 11:36 AM CDT 20 mL documented in this encounter Care Teams Web Applications Developer Relationship Specialty Start Date End Date hSilo Soares MD [address] [place] [address] PCP - General Internal Medicine 04/24/23 documented as of this encounter
--- OUTSIDE RECORDS SUMMARY | 2024-07-27 00:04 | XMS_ITS | Encounter Summary ---
Author Organization [facility] Address [address] [place] [address] Care Team Providers Care Shrimp Picker Name Role Phone Shilo Soares MD Primary Care Provider + [phone] Reason for Visit * Reason Comments Follow Up Nurse navigation Encounter Details Date Type Department Care Team ([facility] st Contact Info) Description 06/01/2023 Chart Note [facility] Oncology Patient Navigation [address] [place] [address] Danyell Pablo, RN Follow Up (Nurse navigation [...] Progress Notes * Danyell Pablo, RN - 06/02/2023 11:04 AM CDT Cancer Center Services Note: Received call from [place] patient's daughter who previously spoke to panel saw operator onc team for symptoms she is having. CTA ordered for SOB. She states the soonest she can get in is tomorrow and wanted to knowif this was acceptable. Informed her I would check with Dr and let her know. Followed up with clinic and ok to wait until tomorrow per Herman RN with Dr. Humphries. Called and updated Ewa. Discussed going to ED for evaluation if she develops worsening SOB, respiratory distress, chest pain, or any worsening symptoms. She verbalized understanding. She also picked up Dulcolaxsuppositories for constipation. Will continue to assist as needed. Danyell Pablo, RN, MSN Oncology Nurse Navigator documented in this encounter Plan of Treatment Upcoming Encounters Date Type Department Care Team (Late st Contact Info) Description 08/04/2024 1:00 PM BEAM MACHINE OPERATOR Appointment Randy Proctor [facility] 2nd Fl [address] [place] [address] Aviva Humphries MD [address] [facility] [address] [place] [address] Infusion Chair 5, 2nd Floor Hall 08/25/2024 1:00 PM BEAM MACHINE OPERATOR Office Visit [facility] Gynecologic Oncology [place] [address] [facility] [address] [place] [address] Edilia Pettit NP [address] [facility] [address] [place] [address] 08/25/2024 1:30 PM BEAM MACHINE OPERATOR Appointment Randy Proctor [facility] 2nd Fl [address] [place] [address] Aviva Humphries MD [address] [facility] [address] [facility] [facility] [place] [address] Infusion Chair 1, 2nd Floor Hall 09/01/2024 10:45 AM BEAM MACHINE OPERATOR Appointment [facility] Nuclear Medicine [address] [place] [address] [id number] Edilia Pettit, CHELY [address] [facility] [address] [place] [address] documented as of this encounter Visit Diagnoses Not on filedocumented in this encounter Care Teams Shrimp Picker Relationship Specialty Start Date End Date Shilo Soares MD [address] [place] [address] PCP - General Internal Medicine 9/15/23 documented as of this encounter
--- OUTSIDE RECORDS SUMMARY | 2024-07-27 00:04 | XMS_ITS | Encounter Summary ---
Author Organization [facility] Address [address] [place] [address] Care Team Providers Care Glass Frame Fitter Name Role Phone Shilo Soares MD Primary Care Provider [phone] Reason for Visit * Reason Onset Date Comments Upper Respiratory Symptoms 06/05/2023 Encounter Details Date Type Department Care Team (Late Contact Info) Description 06/05/2023 Telephone [facility] Gynecologic Oncology [address] [place] [address] Aviva Humphries MD [address] [place] [address] Upper Respiratory Symptoms Social History Tobacco Use Types Packs/Day Years [...] Telephone Encounter - Nae Harrington RN - 06/05/2023 9:00 AM CDT Pt called and states that she has a cold and would like to know if she can take sudafed. Let her know that she can take sudafed and to let us know if she start running a fever or new symptoms let us know. documented in this encounter Plan of Treatment Upcoming Encounters Date Type Department Care Team (Late st Contact Info) Description 08/04/2024 1:00 PM APPLICATIONS PROGRAMMER ANALYST Appointment [facility] Infusion Center 2nd Fl [address] [place] [address] Aviva Humphries MD [address] [address] [place] [address] Infusion Chair 5, 2nd Floor [place] 08/25/2024 1:00 PM APPLICATIONS PROGRAMMER ANALYST Office Visit [facility] Gynecologic Oncology [place] [address] [address] [place] [address] Edilia Pettit, CHELY [address] [facility] [address] [place] [address] 08/25/2024 1:30 PM APPLICATIONS PROGRAMMER ANALYST Appointment Randy [facility] Infusion Center 2nd Fl [address] [place] [address] Aviva Humphries MD [address] [facility] [address] [place] [address] Infusion Chair 1, [address] [place] [address] 09/01/2024 10:45 AM APPLICATIONS PROGRAMMER ANALYST Appointment [facility] Nuclear Medicine [address] [place] [address] [phone] Edilia Pettit, CHELY [address] [address] documented as of this encounter Visit Diagnoses Not on filedocumented in this encounter Care Teams Glass Frame Fitter Relationship Specialty Start Date End Date Shilo Soares MD [address] [place] [address] PCP - General Internal Medicine 04/24/23 documented as of this encounter
--- OUTSIDE RECORDS SUMMARY | 2024-07-27 00:04 | XMS_ITS | Encounter Summary ---
Author Organization [facility] Address [address] [place] [address] Care Team Providers Care Scalemaker Name Role Phone Shilo Soares MD Primary Care Provider [phone] Reason for Referral * Radiology Services (Urgent) - Closed Specialty Diagnoses / Procedures Referred By Alison gomez Referred To Contact Diagnoses Malignant neoplasm of ovary, unspecified laterality Procedures XR ABDOMEN 1 Aviva Richter MD [address] [place] [phone] Referral ID Status Reason Start Date Expiration Date Visits Re quested Visits Authorized [id number] Closed 06/01/2023 07/01/2024 1 1 Reason for Visit * Radiology Services (Urgent) - Closed Specialty Diagnoses / Procedures Referred By Alison gomez Referred To Contact Diagnoses Malignant neoplasm of ovary, unspecified laterality Procedures XR ABDOMEN 1 Aviva Humphries MD [address] [place] [phone] Referral ID Status Reason Start Date Expiration Date Visits Re quested Visits Authorized [id number] Closed 06/01/2023 07/01/2024 1 1 Encounter Details Date Type Department Care Team (Latest Contact Info) Description 06/01/2023 10:44 AM CDT - 06/01/2023 11:59 PM CDT Hospital Encounter [facility] Imaging Services [facility] [place] [facility] [address] [place] [address] Aviva Humphries MD [address] [place] [address] Discharge Disposition: Home or Self [...] bedtime. 02/26/2021 fluticasone propionate (FLONASE) 50 mcg/spray [place], Suspension nasal inhaler Administer 2 Sprays in [...] st Contact Info) Description 08/04/2024 1:00 PM SAND CONDITIONER MACHINE Appointment Randy [facility] Infusion Center 2nd Fl [address] [place] [address] Aviva Humphries MD [address] [place] [address] Infusion Chair 5, 2nd Floor [place] 08/25/2024 1:00 PM SAND CONDITIONER MACHINE Office Visit [facility] Gynecologic Oncology [place] [address] [place] [address] Edilia Pettit, CHELY [address] [address] [place] [address] 08/25/2024 1:30 PM SAND CONDITIONER MACHINE Appointment [facility] [address] [place] [address] Aviva Humphries MD [address] [place] [address] Infusion Chair 1, 2nd Floor [place] 09/01/2024 10:45 AM SAND CONDITIONER MACHINE Appointment [facility] Nuclear Medicine [address] [place] [address] [id number] Edilia Pettit, CHELY [address] [facility] [address] [place] [address] documented as of this encounter Procedures Procedure Name Priority Date/Time Associated Diagnosis Comments XR ABDOMEN 1 VW Stat 06/01/2023 10:56 AM CDT Malignant neoplasm of ovary, unspecified laterality documented in this encounter Results * XR ABDOMEN 1 VW (06/01/2023 10:56 AM CDT) Anatomical Region Laterality Modality Abdomen Computed Radiogr aphy 06/01/2023 10:5 6 AM CDT Impressions 06/01/2023 11:15 AM CDT IMPRESSION: Normal abdomen. DICTATION LOCATION: Location 1 - [facility] 06/01/2023 11:15 AM CDT EXAM: ABDOMEN, AP VIEW DATE: ??06/01/2023 10:56 AM HISTORY: See Diagnosis. ??Malignant neoplasm of ovary, unspecified laterality TECHNIQUE: AP views of the upper and lower abdomen FINDINGS: The bowel gas pattern is normal, without evidence of dilated bowel or bowel wall edema. There is no large soft tissue mass or mass effect. There is no pathologic calcification. There is no organomegaly. Procedure Note Carlos Enrique Issa MD - 06/01/2023 EXAM: ABDOMEN, AP VIEW DATE: 06/01/2023 10:56 AM HISTORY: See Diagnosis. Malignant neoplasm of ovary, unspecified laterality TECHNIQUE: AP views of the upper and lower abdomen FINDINGS: The bowel gas pattern is normal, without evidence of dilated bowel or bowel wall edema. There is no large soft tissue mass or mass effect. There is no pathologic calcification. There is no organomegaly. IMPRESSION: Normal abdomen. DICTATION LOCATION: Location 1 - [facility] Aviva Humphries MD DIAGNOSTIC IMAGING O RDERABLES documented in this encounter Visit Diagnoses Diagnosis Malignant neoplasm of ovary, unspecified laterality documented in this encounter Care Teams Scalemaker Relationship Specialty Start Date End Date Shilo Soares MD [address] [place] [address] PCP - General Internal Medicine 04/24/23 documented as of this encounter
--- OUTSIDE RECORDS SUMMARY | 2024-07-27 00:04 | XMS_ITS | Encounter Summary ---
Author Organization [facility] Address [address] [place] [address] Care Team Providers Care Rubber Process Hand Name Role Phone Shilo Soares MD Primary Care Provider [phone] Encounter Details Date Type Department Care Team (Late st Contact Info) Description 06/13/2023 External Device Data STL ABSTRACTION Provider, Abstract [...] st Contact Info) Description 08/04/2024 1:00 PM RAIL SWITCH OPERATOR Appointment Randy Hall [facility] Infusion Center 2nd Fl [address] [place] [phone] Aviva Humphries MD [address] [facility] [address] [place] [address] Infusion Chair 5, 2nd Floor [place] 08/25/2024 1:00 PM RAIL SWITCH OPERATOR Office Visit [facility] Gynecologic Oncology Hall [address] [address] [facility] [address] [place] [address] Edilia Pettit NP [address] [facility] [address] [place] [address] 08/25/2024 1:30 PM RAIL SWITCH OPERATOR Appointment Randy Hall [facility] Infusion Center 2nd Fl [address] [place] [address] Aviva Humphries MD [address] [facility] [address] [place] [address] Infusion Chair 1, 2nd Floor [place] 09/01/2024 10:45 AM RAIL SWITCH OPERATOR Appointment [facility] [address] [place] [address] [id number] Edilia Pettit, CHELY [address] [address] [place] [address] documented as of this encounter Visit Diagnoses Not on filedocumented in this encounter Care Teams Rubber Process Hand Relationship Specialty Start Date End Date Shilo Soares MD [address] [facility] 2 [place] [address] PCP - General Internal Medicine 04/24/23 documented as of this encounter
--- OUTSIDE RECORDS SUMMARY | 2024-07-27 00:04 | XMS_ITS | Encounter Summary ---
Author Organization [facility] Address [address] [place] [address] Care Team Providers Care Client Account Assistant Name Role Phone Shilo Soares MD Primary Care Provider [phone] Encounter Details Date Type Department Care Team (Late Contact Info) Description 06/04/[address] [facility] Gynecologic Oncology [address] [place] [address] Barb Hyde MD [address] [place] [address] Social History Tobacco Use Types [...] Contact Info) Description 08/04/2024 1:00 PM PSYCHIATRIC AIDES TEACHER Appointment [facility]fusion Center 2nd Fl [address] [place] [address] Aviva Humphries MD [address] [place] [address] Infusion Chair 5, 2nd Floor [place] 08/25/2024 1:00 PM PSYCHIATRIC AIDES TEACHER Office Visit [facility] Gynecologic Oncology Hall [address] [place] [address] Edilia Pettit, CHELY [address] [facility] [address] [place] [address] 08/25/2024 1:30 PM PSYCHIATRIC AIDES TEACHER Appointment [facility] Infusion Center 2nd Fl [address] [place] [address] Aviva Humphries MD [address] [place] [address] Infusion Chair 1, 2nd Floor [place] 09/01/2024 10:45 AM PSYCHIATRIC AIDES TEACHER Appointment Randy [facility] Nuclear Medicine [address] [place] [phone] [id number] Edilia Pettit, CHELY [address] [facility] [address] [place] [address] documented as of this encounter Visit Diagnoses Not on filedocumented in this encounter Care Teams Client Account Assistant Relationship Specialty Start Date End Date Shilo Soares MD [address] [place] [phone] PCP - General Internal Medicine 04/24/23 documented as of this encounter
--- OUTSIDE RECORDS SUMMARY | 2024-07-27 00:04 | XMS_ITS | Encounter Summary ---
Author Organization [facility] Address [address] [place] [address] Care Team Providers Care Job Printer Name Role Phone Shilo Soares MD Primary Care Provider [phone] Reason for Referral * CT Scan (Urgent) - Closed Specialty Diagnoses / Procedures Referred By Contsuze t Referred To Contact Radiology Diagnoses Malignant neoplasm of ovary, unspecified laterality Procedures CTA CHEST W AND/OR WO CONTRAST Aviva Humphries MD [address] [place] [address] [facility] [address] [place] [address] [place] [address] Referral ID Status Reason Start Date Expiration Date Visits Re quested Visits Authorized [id number] Closed 06/02/2023 08/09/2023 1 1 Reason for Visit * Reason Comments Follow Up Encounter Details Date Type Department Care Team (Latest Contact Info) Description 06/01/2023 12:30 PM CDT Clinical Support [facility] Gynecologic Oncology [address] [place] [address] Nurse, [facility] Brake Operator Sheet Metal Onc, RN Malignant neoplasm of ovary, unspecified laterality [...] Sign Reading Time Taken Comments Blood Pressure 119/72 06/01/2023 11:44 AM CDT Pulse 114 06/01/2023 11:44 AM CDT Temperature - - Respiratory Rate - - Oxygen Saturation 94% 06/01/2023 11:44 AM CDT Inhaled Oxygen Concentration - - Weight - - Height - - Body Mass Index - - documented in this encounter Progress Notes * Yessi Chavarria RN - 06/01/2023 11:47 AM CDT Patient was seen in the clinic. Patient vitals were checked BP and SpO2 stable. Patient is tachycardiac but denies any symptoms. Patient was prescribed a suppository per Dr. Humphries. All questions were answered. documented in this encounter Miscellaneous Notes * Addendum Note - Yessi Chavarria RN - 06/01/2023 1:04 PM CDTAddended by: YESSI CHAVARRIA on: 06/01/2023 01:04 PM Modules accepted: Orders documented in this encounter Plan of Treatment Upcoming Encounters Date Type Department Care Team (Late st Contact Info) Description 08/04/2024 1:00 PM DIRECTOR OF PEDIATRIC REHABILITATION Appointment [facility] Infusion Center 2nd Wy [address] [place] [address] Aviva Humphries MD [address] [place] [address] Infusion Chair 5, 2nd Floor [place] 08/25/2024 1:00 PM DIRECTOR OF PEDIATRIC REHABILITATION Office Visit [facility] Gynecologic Oncology Hall [address] [place] [address] Edilia Pettit NP [address] [place] [address] 08/25/2024 1:30 PM DIRECTOR OF PEDIATRIC REHABILITATION Appointment [facility] Infusion Center 2nd Fl [address] [place] [address] Aviva Humphries MD [address] [facility] [address] [place] [address] Infusion Chair 1, 2nd Floor [place] 09/01/2024 10:45 AM DIRECTOR OF PEDIATRIC REHABILITATION Appointment [facility] Nuclear Medicine [address] [place] [address] [id number] Edilia Pettit NP [address] [facility] [address] [place] [address] documented as of this encounter Results * CTA CHEST W AND/OR WO CONTRAST (06/02/2023 2:07 PM CDT) Anatomical Region Laterality Modality Chest Computed Tomogra phy 06/02/2023 2:08 PM CDT Impressions 06/02/2023 2:14 PM CDT IMPRESSION: 1. Partially visualized abdominal ascites, suspicious for tumor involvement given reported history of ovarian neoplasm. CT of the abdomen and pelvis advised if not recently performed. 2. No evidence of pulmonary embolism. 3. Severe emphysema. DICTATION LOCATION: Location [address] [place] [address] 06/02/2023 2:14 PM CDT EXAMINATION: CTA CHEST W AND/OR WO CONTRAST DATE: 06/02/2023 2:07 PM HISTORY: short of breath TECHNIQUE: CTA of the chest was performed following the uneventful administration of contrast (IOPAMIDOL 76 % INTRAVENOUS SOLUTION (MULTI-DOSE BULK PACK) Given:80 mL) according to pulmonary embolism protocol. The examination was performed with the adjustment of mA according to the patient size and/or the use of Iterative Reconstruction Technique. Maximum intensity projection postprocessing was performed by the technologist and sent to the workstation for review. COMPARISON: No prior study is available for comparison at the time of this dictation. ?? FINDINGS: Lower neck and axillae: No acute findings. Mediastinum and britni: The heart size is normal. There is no pericardial effusion. The aorta is normal caliber. ??There are no filling defects in the pulmonary arteries to suggest pulmonary embolism. There is no bulky adenopathy. Pulmonary: There is severe centrilobular emphysema. No confluent consolidation or pleural effusion. ?? Upper abdomen: There is partially visualized abdominal ascites Musculoskeletal: No acute findings. Procedure Note Shilo Plaza MD - 06/02/2023 EXAMINATION: CTA CHEST W AND/OR WO CONTRAST DATE: 06/02/2023 2:07 PM HISTORY: short of breath TECHNIQUE: CTA of the chest was performed following the uneventful administration of contrast (IOPAMIDOL 76 % INTRAVENOUS SOLUTION (MULTI-DOSE BULK PACK) Given:80 mL) according to pulmonary embolism protocol. The examination was performed with the adjustment of mA according to the patient size and/or the use of Iterative Reconstruction Technique. Maximum intensity projection postprocessing was performed by the technologist and sent to the workstation for review. COMPARISON: No prior study is available for comparison at the time of this dictation. FINDINGS: Lower neck and axillae: No acute findings. Mediastinum and britni: The heart size is normal. There is no pericardial effusion. The aorta is normal caliber. There are no filling defects in the pulmonary arteries to suggest pulmonary embolism. There is no bulky adenopathy. Pulmonary: There is severe centrilobular emphysema. No confluent consolidation or pleural effusion. Upper abdomen: There is partially visualized abdominal ascites Musculoskeletal: No acute findings. IMPRESSION: 1. Partially visualized abdominal ascites, suspicious for tumor involvement given reported history of ovarian neoplasm. CT of the abdomen and pelvis advised if not recently performed. 2. No evidence of pulmonary embolism. 3. Severe emphysema. DICTATION LOCATION: Location [address] [place] [address] ORDERABLES documented in this encounter Visit Diagnoses Diagnosis Malignant neoplasm of ovary, unspecified laterality- Primary Malignant neoplasm of ovary, unspecified laterality documented in this encounter Care Teams Job Printer Relationship Specialty Start Date End Date Shilo Soares MD [address] [place] [address] PCP - General Internal Medicine 04/24/23 documented as of this encounter
--- OUTSIDE RECORDS SUMMARY | 2024-07-27 00:04 | XMS_ITS | Encounter Summary ---
Author Organization [facility] Address [address] [place] [address] Care Team Providers Care Marketing Co Op Name Role Phone Shilo Soares MD Primary Care Provider [phone] Reason for Visit * Reason Onset Date Comments N/A 06/02/2023 Encounter Details Date Type Department Care Team (Late Contact Info) Description 06/02/2023 Telephone [facility] Gynecologic Oncology [address] [facility] [address] [place] [address] Amanda Humphries CRNP [address] [place], [place] [id number] N/A Social History Tobacco Use Types Packs/Day Years [...] Contact Info) Description 08/04/2024 1:00 PM SENIOR PAYROLL ADMINISTRATOR Appointment [facility] Infusion Center 2nd Fl [address] [place] [address] Aviva Humphries MD [address] [place] [address] Infusion Chair 5, 2nd Floor [place] 08/25/2024 1:00 PM SENIOR PAYROLL ADMINISTRATOR Office Visit [facility] Gynecologic Oncology Hall [address] [address] [place] [address] Edilia Pettit, CHELY [address] [facility] [address] [place] [address] 08/25/2024 1:30 PM SENIOR PAYROLL ADMINISTRATOR Appointment Randy [facility] Infusion Center 2nd Fl [address] [place] [address] Aviva Humphries MD [address] [place] [address] Infusion Chair 1, 2nd Floor [place] 09/01/2024 10:45 AM SENIOR PAYROLL ADMINISTRATOR Appointment [facility] Nuclear Medicine [address] [place] [address] [id number] Edilia Pettit, CHELY [address] [facility] [address] [place] [address] documented as of this encounter Visit Diagnoses Not on filedocumented in this encounter Care Teams Marketing Co Op Relationship Specialty Start Date End Date Shilo Soares MD [address] [place] [address] PCP - General Internal Medicine 04/24/23 documented as of this encounter
--- OUTSIDE RECORDS SUMMARY | 2024-07-27 00:04 | XMS_ITS | Encounter Summary ---
Author Organization [facility] Address [address] [place] [address] Care Team Providers Care Transit Police Officer Name Role Phone Shilo Soares MD Primary Care Provider [phone] Reason for Referral * CT Scan (Urgent) - Closed Specialty Diagnoses / Procedures Referred By Alison gomez Referred To Contact Radiology Diagnoses Malignant neoplasm of ovary, unspecified laterality Procedures CTA CHEST W AND/OR WO CONTRAST Aviva Humphries MD [address] [place] [address] [facility] [address] [place] [address] [place] [address] Referral ID Status Reason Start Date Expiration Date Visits Re quested Visits Authorized [id number] Closed 06/02/2023 08/09/2023 1 1 Reason for Visit * CT Scan (Urgent) - Closed Specialty Diagnoses / Procedures Referred By Alison t Referred To Contact Radiology Diagnoses Malignant neoplasm of ovary, unspecified laterality Procedures CTA CHEST W AND/OR WO CONTRAST Aviva Humphries MD [address] [place] [address] [facility] [address] [place] [address] [place] [address] Referral ID Status Reason Start Date Expiration Date Visits Re quested Visits Authorized [id number] Closed 06/02/2023 08/09/2023 1 1 Encounter Details Date Type Department Care Team (Latest Contact Info) Description 06/02/2023 1:41 PM CDT - 06/02/2023 11:59 PM CDT Hospital Encounter [facility] [address] [place] [address] Aviva Humphries MD [address] [place] [address] Discharge Disposition: Home or Self [...] bedtime. 02/26/2021 fluticasone propionate (FLONASE) 50 mcg/spray [place], Suspension nasal inhaler Administer 2 Sprays in [...] as of this encounter Progress Notes * Noemi Rowland, RT - 06/02/2023 2:15 PM CDT IMAGING SERVICES - COMPUTED TOMOGRAPHY MEDICATION and FLUSH PROTOCOL [facility] THIS PROTOCOL IS IMPLEMENTED WHEN AN APPROVED PROVIDER ORDERS A CT SCAN WITH CONTRAST BY PAPER OR ELECTRONIC ORDER. The senior technical trainer will order place an order in EPIC for contrast ???Scope of Practice - no cosignrequired?? . Enter the protocol in the patient???s electronic health record using [employer] Apps: .[employer] Communication Orders: For ordered imaging procedures requiring intravenous access: Initiate a peripheral IV, if not already in place, and discontinue IV prior to discharge. Medication Orders: Sodium chloride 0.9% (normal saline) flush up to 10 mLs PRN for IV evaluation, saline lock, or medication administration. Sodium chloride 0.9% (normal saline) bolus up to 200 mLs PRN for power injection IV evaluation and IV Contrast flush. Procedure Specific Medications: CT ORAL CONTRAST PROTOCOLS FOR ADULTS Use Iopamidol (Isovue-370) for CT scan unless patient has a documented allergy to contrast dye. If allergy present, use Barium Sulfate (Creamy Vanilla Smoothie Readi-Cat 2) for procedure. If at any time the Rotary Soil Stabilizer Operator has a question about which option to administer, seek clarification from a Radiologist. Iopamidol (Isovue-370): 15ml added to 900mL of clear liquid of patient???s choice. Preferred route is oral. May use nasoenteric tube if needed. Administer 900mL of the diluted Iopamidol (Isovue-370),orally, one time only. Barium Sulfate (Creamy Vanilla Smoothie Readi-Cat 2) oral suspension: Preferred route is oral. May use nasoenteric tube if needed. Administer 450mL of barium sulfate, orally, one time only. For Enterography, give patient 450ml Breeza, a flavored beverage. CT ORAL CONTRAST PROTOCOLS FOR PEDIATRICS Pediatrics = up to age 18 Pediatric Radiologist will approve of one of the following products selected for procedure. Barium Sulfate (Creamy Vanilla Smoothie Readi-Cat 2) oral suspension: preferred route is oral. May use nasoenteric tube if needed. Hamilton to 3 months Administer up to 90mL of Barium Sulfate, Orally, one time only 4 months to 1 year old Administer up to 240mL of Barium sulfate , Orally, One Time Only 1 year old to 5 years old Administer up to 360mL of Barium sulfate , Orally, One Time Only 5 years old to 10 years old Administer up to 480mL of Barium sulfate , Orally, One Time Only Over 10 years old Administer up to 600mL of Barium sulfate , Orally, One Time Only Iopamidol (Isovue-370)oral solution Dilute 25mL of Iopamidol with 480mL of clear liquid of patient???s choice. Administer the diluted solution per age as follows: Preferred route is orally. May use nasoenteric tube if needed. Send any remaining diluted Iopamidol solution with the patient to CT. [place] Administer 45mL of diluted Iopamidol oral solution, orally every 30 minutes x 2 doses. 1 month to 1 year old Administer 120mL of diluted Iopamidol oral solution, orally every 30 min x 2 doses. 1 year old to 5 years old Administer 180mL of diluted Iopamidol orally every 30 min x 2 doses. 5 years old to 10 years old Administer 240mL of diluted Iopamidol orally every 30 min x 2 doses. Over 10 years old Administer 300mL of diluted Iopamidol orally every 30 min x [address] IV CONTRAST PROTOCOLS ADULTS: (If patient is less than 55kg and confirm dose with radiologist) o Iopamidol (Isovue-370): Administer up to 2.2mL/kg (to MAX of 150mL) of Iopamidol 76%, intravenously, one time only PEDIATRICS: Use weight based dosing if patient is less than 55kg and confirm dose with radiologist.[place] to 15 years old Administer up to 2.2mL/kg (to MAX of 80 mL) of Iopamidol (Isovue-370) 76%, intravenously, one time only 15 years old and older Administer up to 2.2mL/kg (to MAX of 125mL) of Iopamidol (Isovue-370) 76%, intravenously, one time only Initiating Department(s): Imaging Services - CT Approved by: Caitlin Braun Date: 02/2022 Approved by: Claudio Jimenez MD, Fire Alarm Operator Date: 02/2022 Approved by: P&T Committee Date: 02/2022 Approved by: Medical Executive Committee Date: 02/2022 documented in this encounter Plan of Treatment Upcoming Encounters Date Type Department Care Team (Late st Contact Info) Description 08/04/2024 1:00 PM STRAP STITCHER Appointment [facility] 2nd Fl [address] [place] [address] Aviva Humphries MD [address] [facility] [address] [place] [address] Infusion Chair 5, 2nd Floor Hall 08/25/2024 1:00 PM STRAP STITCHER Office Visit [facility] Gynecologic Oncology [place] [address] [facility] [address] [place] [address] Edilia Pettit, CHELY [address] [address] 08/25/2024 1:30 PM STRAP STITCHER Appointment Randy [facility] Infusion Center 2nd Fl [address] [place] [address] Aviva Humphries MD [address] [facility] [address] [facility] [place] [address] Infusion Chair 1, [address] [place], [place] [address] 09/01/2024 10:45 AM STRAP STITCHER Appointment [facility] Nuclear Medicine [address] [place] [address] [phone] Edilia Pettit, CHELY [address] [phone] documented as of this encounter Procedures Procedure Name Priority Date/Time Associated Diagnosis Comments CTA CHEST W AND/OR WO CONTRAST Stat 06/02/2023 2:07 PM CDT Malignant neoplasm of ovary, unspecified laterality documented in this encounter Results * CTA CHEST W [...] embolism. 3. Severe emphysema. DICTATION LOCATION: Location [address] [place] [address] 06/02/2023 2:14 PM CDT EXAMINATION: CTA CHEST [...] embolism. 3. Severe emphysema. DICTATION LOCATION: Location [address] [place] [address] ORDERABLES documented in this encounter Visit Diagnoses Diagnosis Malignant neoplasm of ovary, unspecified laterality documented in this encounter Administered Medications Inactive Administered Medications - up to 3 most recent administrations Medication Order MAR Action Action Date Dose Rate Site iopamidoL (ISOVUE-370) 76% injection (drawn from multi-use bulk pack) 80 mL 80 mL, IV, INTRA-PROCEDURE ONCE, 1 dose, Starting on 06/02/23 at 1405, Until 06/02/23 at 1400, Routine Contrast Given 06/02/2023 2:00 PM CDT 80 mL documented in this encounter Care Teams Transit Police Officer Relationship Specialty Start Date End Date Shilo Soares MD [address] [place] [phone] PCP - General Internal Medicine 04/24/23 documented as of this encounter
--- OUTSIDE RECORDS SUMMARY | 2024-07-27 00:04 | XMS_ITS | Encounter Summary ---
Author Organization [facility] Address [address] [place] [address] Care Team Providers Care Wildlife Conservation Officer Name Role Phone Shilo Soares MD Primary Care Provider [phone] Encounter Details Date Type Department Care Team (Late st Contact Info) Description 06/11/2023 External Device Data STL ABSTRACTION Provider, Abstract [...] st Contact Info) Description 08/04/2024 1:00 PM ROLL WINDER Appointment Randy [facility] Infusion Center 2nd Fl [address] [place] [phone] Aviva Humphries MD [address] [facility] [address] [place] [address] Infusion Chair 5, 2nd Floor Hall 08/25/2024 1:00 PM ROLL WINDER Office Visit [facility] Gynecologic Oncology Hall [address] [facility] [address] [place] [address] Edilia Pettit NP [address] [facility] [address] [place] [address] 08/25/2024 1:30 PM ROLL WINDER Appointment Randy Hall [facility] Infusion Center 2nd Fl [address] [place] [address] Aviva Humphries MD [address] [facility] [address] [place] [address] Infusion Chair 1, 2nd Floor Hall 09/01/2024 10:45 AM ROLL WINDER Appointment [facility] Nuclear Medicine [address] [place] [address] [phone] Edilia Pettit, CHELY [address] [facility] [address] [place] [address] documented as of this encounter Visit Diagnoses Not on filedocumented in this encounter Care Teams Wildlife Conservation Officer Relationship Specialty Start Date End Date Shilo Soares MD [address] [facility] [[email or web address] 2 [place] [address] PCP - General Internal Medicine 04/24/23 documented as of this encounter
--- OUTSIDE RECORDS SUMMARY | 2024-07-27 00:04 | XMS_ITS | Encounter Summary ---
Author Organization [facility] Address [address] [place] [address] Care Team Providers Care Inside Tester Name Role Phone Shilo Soares MD Primary Care Provider [phone] Encounter Details Date Type Department Care Team (Late st Contact Info) Description 06/14/2023 External Device Data STL ABSTRACTION Provider, Abstract [...] st Contact Info) Description 08/04/2024 1:00 PM WEB APPLICATION TESTER Appointment Randy Hall [facility] Infusion Center 2nd Fl [address] [place] [address] Aviva Humphries MD [address] [facility] [address] [place] [address] Infusion Chair 5, 2nd Floor Hall 08/25/2024 1:00 PM WEB APPLICATION TESTER Office Visit [facility] Gynecologic Oncology [place] [address] [facility] [address] [place] [address] Edilia Pettit NP [address] [facility] [address] [place] [address] 08/25/2024 1:30 PM WEB APPLICATION TESTER Appointment Randy Hall [facility] Infusion Center 2nd Fl [address] [place] [address] Aviva Humphries MD [address] [facility] [address] [place] [address] Infusion Chair 1, 2nd Floor Hall 09/01/2024 10:45 AM WEB APPLICATION TESTER Appointment [facility] Nuclear Medicine [address] [place] [address] [phone] Edilia Pettit, CHELY [address] [facility] [address] [place] [address] documented as of this encounter Visit Diagnoses Not on filedocumented in this encounter Care Teams Inside Tester Relationship Specialty Start Date End Date Shilo Soares MD [address] [facility] 2 [place] [address] PCP - General Internal Medicine 04/24/23 documented as of this encounter
--- OUTSIDE RECORDS SUMMARY | 2024-07-27 00:04 | XMS_ITS | Encounter Summary ---
Author Organization [facility] Address [address] [place] [address] Care Team Providers Care Site Leader Name Role Phone Shilo Soares MD Primary Care Provider [phone] Encounter Details Date Type Department Care Team (Latest Contact Info) Description 06/01/2023 10:49 AM CDT - 06/01/2023 11:59 PM CDT Hospital Encounter [facility] Services [facility] [place] A [address] [place] [address] Aviva Humphries MD [address] [facility] [address] [place] [address] Discharge Disposition: Home or Self [...] bedtime. 02/26/2021 fluticasone propionate (FLONASE) 50 mcg/spray [place], Suspension nasal inhaler Administer 2 Sprays in [...] st Contact Info) Description 08/04/2024 1:00 PM FASHION PHOTOGRAPHER Appointment Randy Hall [facility] Infusion Center [facility] [address] [place] [address] Aviva Humphries MD [address] [facility] [address] [place] [phone] Infusion Chair 5, 2nd Floor Hall 08/25/2024 1:00 PM FASHION PHOTOGRAPHER Office Visit [facility] Gynecologic Oncology Hall [address] [facility] [address] [facility] [place] [address] Edilia Pettit NP [address] [facility] [address] [place] [phone] 08/25/2024 1:30 PM FASHION PHOTOGRAPHER Appointment Randy Hall [facility] Infusion Center [facility] Fl [address] [place] [address] Aviva Humphries MD [address] [facility] [address] [place] [phone] Infusion Chair 1, 2nd Floor Hall 09/01/2024 10:45 AM FASHION PHOTOGRAPHER Appointment Randy [facility] Nuclear Medicine [address] [place] [address] [id number] Edilia Pettit NP [address] [facility] [address] [place] [address] documented as of this encounter Procedures Procedure Name Priority Date/Time Associated Diagnosis Comments XR CHEST PA AND LATERAL 2 VW Stat 06/01/2023 10:56 AM CDT Malignant neoplasm of ovary, unspecified laterality documented in this encounter Results * XR CHEST PA AND LATERAL 2 VW (06/01/2023 10:56 AM CDT) Anatomical Region Laterality Modality Chest Computed Radiogr aphy 06/01/2023 10:5 6 AM CDT Impressions 06/01/2023 11:00 AM CDT IMPRESSION: ?? Normal chest x-ray. ?? DICTATION LOCATION: Location [address] [place] [address] Narrative 06/01/2023 11:00 AM CDT EXAM: PA AND LATERAL CHEST DATE: ??06/01/2023 10:56 AM HISTORY: See Diagnosis. ??Malignant neoplasm of ovary, unspecified laterality FINDINGS: The lungs are clear. There is no pneumothorax or pleural fluid. The heart and mediastinum are normal. A right Port-A-Cath is in good radiographic position. Procedure Note Carlos Enrique Issa MD - 06/01/2023 EXAM: PA AND LATERAL CHEST DATE: 06/01/2023 10:56 AM HISTORY: See Diagnosis. Malignant neoplasm of ovary, unspecified laterality FINDINGS: The lungs are clear. There is no pneumothorax or pleural fluid. The heart and mediastinum are normal. A right Port-A-Cath is in good radiographic position. IMPRESSION: Normal chest x-ray. DICTATION LOCATION: Location [address] [place] [address] Aviva Humphries MD DIAGNOSTIC IMAGING O RDERABLES documented in this encounter Visit Diagnoses Diagnosis Malignant neoplasm of ovary, unspecified laterality documented in this encounter Care Teams Site Leader Relationship Specialty Start Date End Date Shilo Soares MD [address] [place] [address] PCP - General Internal Medicine 04/24/23 documented as of this encounter
--- OUTSIDE RECORDS SUMMARY | 2024-07-27 00:04 | XMS_ITS | Encounter Summary ---
Author Organization [facility] Address [address] [place] [address] Care Team Providers Care Nursing Services Manager Name Role Phone Shilo Soares MD Primary Care Provider [phone] Encounter Details Date Type Department Care Team (Late st Contact Info) Description 06/12/2023 External Device Data STL ABSTRACTION Provider, Abstract [...] st Contact Info) Description 08/04/2024 1:00 PM PROOF MACHINE OPERATOR SUPERVISOR Appointment Randy Hall [facility] Infusion Center 2nd Fl [address] [place] [phone] Aviva Humphries MD [address] [facility] [address] [place] [address] Infusion Chair 5, 2nd Floor Hall 08/25/2024 1:00 PM PROOF MACHINE OPERATOR SUPERVISOR Office Visit [facility] Gynecologic Oncology Hall [address] [facility] [address] [place] [address] Edilia Pettit NP [address] [facility] [address] [place] [address] 08/25/2024 1:30 PM PROOF MACHINE OPERATOR SUPERVISOR Appointment Randy Hall [facility] Infusion Center 2nd Fl [address] [place] [address] Aviva Humphries MD [address] [facility] [address] [place] [address] Infusion Chair 1, 2nd Floor Hall 09/01/2024 10:45 AM PROOF MACHINE OPERATOR SUPERVISOR Appointment [facility] [address] [place] [address] [phone] Edilia Pettit, CHELY [address] [facility] [address] [place] [address] documented as of this encounter Visit Diagnoses Not on filedocumented in this encounter Care Teams Nursing Services Manager Relationship Specialty Start Date End Date Shilo Soares MD [address] [facility] 2 [place] [address] PCP - General Internal Medicine 04/24/23 documented as of this encounter
--- OUTSIDE RECORDS SUMMARY | 2024-07-27 00:04 | XMS_ITS | Encounter Summary ---
Author Organization [facility] Address [address] [place] [address] Care Team Providers Care Furnace Puncher Name Role Phone Shilo Soares MD Primary Care Provider [phone] Reason for Visit * Reason Onset Date Comments f/u 06/01/2023 Encounter Details Date Type Department Care Team (Late Contact Info) Description 06/01/2023 Telephone [facility] Gynecologic Oncology [address] [facility] [address] [place] [address] Aviva Humphries MD [address] [place] [address] f/u Social History Tobacco Use Types Packs/Day [...] Telephone Encounter - Stevie Chavarria RN - 06/01/2023 1:06 PM CDT Called patients daughter in regards to labs and SOB. CTA ordered stat for patient and central scheduling's number given to schedule. Patients daughter voiced understanding. documented in this encounter Plan of Treatment Upcoming Encounters Date Type Department Care Team (Late st Contact Info) Description 08/04/2024 1:00 PM ELECTROSTATIC PAINTER Appointment Randy [facility] 2nd Fl [address] [place] [address] Aviva Humphries MD [address] [place] [address] Infusion Chair 5, 2nd Floor Hall 08/25/2024 1:00 PM ELECTROSTATIC PAINTER Office Visit [facility] Gynecologic Oncology Hall [address] [facility] [address] [place] [address] Edilia Pettit, CHELY [address] [facility] [address] [place] [address] 08/25/2024 1:30 PM ELECTROSTATIC PAINTER Appointment [facility] [address] [place] [address] Aviva Humphries MD [address] [facility] [address] [place] [address] Infusion Chair 1, 2nd Floor Hall 09/01/2024 10:45 AM ELECTROSTATIC PAINTER Appointment Randy [facility] Nuclear Medicine [address] [place] [phone] Edilia Pettit, CHELY [address] [facility] [address] [place] [address] documented as of this encounter Visit Diagnoses Not on filedocumented in this encounter Care Teams Furnace Puncher Relationship Specialty Start Date End Date Shilo Soares MD [address] [facility] 2 [place] [address] PCP - General Internal Medicine 04/24/23 documented as of this encounter
--- OUTSIDE RECORDS SUMMARY | 2024-07-27 00:04 | XMS_ITS | Encounter Summary ---
Author Organization [facility] Address [address] [place] [address] Care Team Providers Care Family Services Worker Name Role Phone Shilo Soares MD Primary Care Provider [phone] Reason for Visit * Reason Onset Date Comments CTA results 06/02/2023 Encounter Details Date Type Department Care Team (Late Contact Info) Description 06/02/2023 Telephone [facility] Gynecologic Oncology [address] [place] [address] Aviva Humphries MD [address] [place] [address] CTA results Social History Tobacco Use Types Packs/Day [...] Telephone Encounter - Stevie Chavarria RN - 06/02/2023 4:11 PM CDT Called patient in regards to CTA no PE present. Patient to monitor symptoms. Patient voiced understanding. documented in this encounter Plan of Treatment Upcoming Encounters Date Type Department Care Team (Late st Contact Info) Description 08/04/2024 1:00 PM BISQUE WARE DIPPER Appointment [facility] [address] [place] [address] Aviva Humphries MD [address] [place] [address] Infusion Chair 5, 2nd Floor [place] 08/25/2024 1:00 PM BISQUE WARE DIPPER Office Visit [facility] Gynecologic Oncology Hall [address] [place] [address] Edilia Pettit, CHELY [address] [facility] [address] [place] [address] 08/25/2024 1:30 PM BISQUE WARE DIPPER Appointment [facility] Center [facility] [address] [place] [address] Aviva Humphries MD [address] [place] [address] Infusion Chair 1, 2nd Floor [place] 09/01/2024 10:45 AM BISQUE WARE DIPPER Appointment Randy [facility]ctor [facility] Nuclear Medicine [address] [place] [address] [phone] Edilia Pettit NP [address] [facility] [address] [place] [address] documented as of this encounter Visit Diagnoses Not on filedocumented in this encounter Care Teams Family Services Worker Relationship Specialty Start Date End Date Shilo Soares MD [address] [facility] [address] [place] [address] PCP - General Internal Medicine 04/24/23 documented as of this encounter
--- OUTSIDE RECORDS SUMMARY | 2024-07-27 00:05 | XMS_ITS | Encounter Summary ---
Author Organization [facility] Address [address] [place] [address] Care Team Providers Care Tier Lift Truck Operator Name Role Phone Shilo Soares MD Primary Care Provider [phone] Reason for Visit * Reason Onset Date Comments Chemotherapy 05/14/2023 Encounter Details Date Type Department Care Team (Late st Contact Info) Description 05/14/2023 Telephone [facility] Gynecologic Oncology [address] [place] [address] Aviva Humphries MD [address] [place] [address] Chemotherapy Social History Tobacco Use Types Packs/Day Years [...] Telephone Encounter - Nae Harrington RN - 05/14/2023 10:30 AM CDT Called pt and let her know I spoke with randy CARROLL and they can get pt in 05/22 for paracentesis at 10 am. Let her know I called Dr. Carter office and they did not answer but left VM to call office back so we can coordinate chemo. Let her know once they call me back I will call her with a plan. She voiced understanding. documented in this encounter Plan of Treatment Upcoming Encounters Date Type Department Care Team (Late st Contact Info) Description 08/04/2024 1:00 PM DAIRY EQUIPMENT REPAIRER Appointment [facility] Infusion Center 2nd Fl [address] [place] [address] Aviva Humphries MD [address] [place] [address] Infusion Chair 5, [address] [place] [address] 08/25/2024 1:00 PM DAIRY EQUIPMENT REPAIRER Office Visit [facility] Gynecologic Oncology [place] [address] [place] [address] Edilia Pettit, CHELY [address] [place] [address] 08/25/2024 1:30 PM DAIRY EQUIPMENT REPAIRER Appointment Randy [facility] Infusion Center 2nd Fl [address] [place] [address] Aviva Humphries MD [address] [facility] [address] [place] [address] Infusion Chair 1, [address] [place] [address] 09/01/2024 10:45 AM DAIRY EQUIPMENT REPAIRER Appointment [facility] Nuclear Medicine [address] [place] [address] [id number] Edilia Pettit, CHELY [address] [facility] [address] [place] [phone] documented as of this encounter Visit Diagnoses Not on filedocumented in this encounter Care Teams Tier Lift Truck Operator Relationship Specialty Start Date End Date Shilo Soares MD [address] [facility] [address] [place] [phone] PCP - General Internal Medicine 04/24/23 documented as of this encounter
--- OUTSIDE RECORDS SUMMARY | 2024-07-27 00:05 | XMS_ITS | Encounter Summary ---
Author Organization [facility] Address [address] [place] [address] Care Team Providers Care Plant Physiologist Name Role Phone Shilo Soares MD Primary Care Provider [phone] Reason for Referral * Radiology Services (Routine) - Closed Specialty Diagnoses / Procedures Referred By Contact Referred To Contact Interventional Radiology Diagnoses Malignant neoplasm of ovary, unspecified laterality Procedures IR VENOUS NECK Aviva Humphries MD [address] [place] [address] [facility] Interventional Radiology [address] [place] [address] Referral ID Status Reason Start Date Expiration Date Visits Re quested Visits Authorized [id number] Closed 05/18/2023 06/17/2024 1 1 Reason for Visit * Auth/Cert (Routine) Specialty Diagnoses / Procedures Referred By Contac t Referred To Contact General Surgery Diagnoses Malignant neoplasm of ovary, unspecified laterality Procedures IR VENOUS NECK Aviva Humphries MD [address] [place] [address] [facility] Care Int Unit North [address] [place] [address] Referral ID Status Reason Start Date Expiration Date Visits Re quested Visits Authorized [id number] 1 1 Encounter Details Date Type Department Care Team (Latest Contact Info) Description 05/25/2023 6:43 AM CDT - 05/25/2023 12:03 PM CDT Hospital Encounter [facility] Interventional Unit [place] [address] [place] [address] Aviva Humphries MD [address] [facility] [address] [place] [address] [facility] Yulia Connelly MD [address] [place] [address] Camilla Bautista AA-C [address] [place] [address] Malignant neoplasm of ovary, unspecified laterality Discharge Disposition: Home or Self Care Social [...] Sign Reading Time Taken Comments Blood Pressure 98/57 05/25/2023 10:36 AM CDT Pulse 80 05/25/2023 10:36 AM CDT Temperature 36.1 ??C (97 ??F) 05/25/2023 10: 36 AM CDT Respiratory Rate 16 05/25/2023 10:3 6 AM CDT Oxygen Saturation 96% 05/25/2023 10: 36 AM CDT Inhaled Oxygen Concentration - - Weight 51.2 kg (112 lb 14.4 oz) 05/25/2023 7:18 AM CDT Height 167.6 cm (5' 6 ) 05/25/2023 7:18 AM CDT Body Mass Index 18.22 05/25/2023 7:18 AM CDT documented in this encounter Discharge Instructions * Discharge Instructions* Fara Carney RN - 05/25/2023 11:27 AM CDT SAFETY For the next 24 hours, you may feel sleepy due to medicines used during your procedure. For the next 24 hour period or while you are on pain medication, DO NOT make any important decisions or sign any important papers. DO NOT drink any alcoholic beverages, including beer. DO NOT drive a car or operate machinery and power tools. For your safety and protection, we strongly recommend that a responsible adult be with you today and throughout the night. Medication Pain Medication given at . Next dose due at , if needed. ADDITIONAL INFORMATION Once you are home, if you develop any of the following symptoms, call your physician. Difficulty in breathing, persistent nausea or vomiting, pain that is unusual, excessive swelling orredness at incision site, trouble swallowing, temperature greater than 101 degrees, excessive bleeding at incision site. If you cannot contact your physician, call or come to the Emergency Room at [facility] ([phone]) or the nearest Emergency Room. In an emergency, Call 911. * Attachments The following attachments cannot be sent through Care Everywhere. * Port: Implanted: Post-op (Finnish) documented in this encounter Medications at Time [...] bedtime. 02/26/2021 fluticasone propionate (FLONASE) 50 mcg/spray [place], Suspension nasal inhaler Administer 2 Sprays in [...] as of this encounter Progress Notes * Fara Carney RN - 05/25/2023 11:27 AM CDT Written and verbal discharge instructions given to pt, she verbalizes her understanding * Siobhan Robertson RN - 05/25/2023 10:37 AM CDT Procedure completed. Transferred back to bed and transported to [facility]. Report given to RN. * Siobhan Robertson RN - 05/25/2023 9:53 AM CDT Pt seen in [facility]. Pt verified and consent obtained. Transported to IR 14 and transferred to table. Monitors applied and positioned for procedure. * Fara Carney RN - 05/25/2023 7:32 AM CDT Pt admitted for a scheduled port placement today. VS and assessment completed, questions answered. Daughter at bedside documented in this encounter H&P Notes * Casie Rajput MD - 05/25/2023 9:30 AM CDT INTERVENTIONAL RADIOLOGY HISTORY & PHYSICAL / PRE-PROCEDURE NOTE Chief Complaint/History of Present Illness Narda Eileen Mayen is a 62 y.o. female with ovarian cancer . Past Medical History: Diagnosis Date Asthma Emphysema of lung Hyperlipidemia Past Surgical History: Procedure Laterality Date HX BUNIONECTOMY Bilateral 2009 HX SECTION 1982,1985,1994 Medications Prior to Admission Medication Sig Dispense Refill Last Dose albuterol sulfate HFA 90 mcg/actuation aerosol inhaler Take 1 Puff by inhalation every 6 hours as needed. Past Week atorvastatin (LIPITOR) 20 mg tablet Take 20 mg by mouth daily at bedtime. 05/24/2023 cetirizine (ZyrTEC) 10 mg tablet Take 10 mg by mouth 2 times daily. 05/25/2023 fluticasone propionate (FLONASE) 50 mcg/spray [place], Suspension nasal inhaler Administer 2 Sprays in each nostril daily. 05/25/2023 omega-3 fatty acids-fish oil 300-1,000 mg Capsule Take 2 Capsules by mouth daily. Past Week ondansetron (Zofran) 8 mg Tablet Take 1 Tablet (8 mg) by mouth every 8 hours as needed for Nausea. 30 Tablet 3 prochlorperazine maleate (COMPAZINE) 10 mg tablet Take 1 Tablet (10 mg) by mouth every 6 hours as needed for Nausea/Emesis. 30 Tablet 3 lidocaine-prilocaine (EMLA) 2.5-2.5 % Cream Apply a thin layer over port site 30-45 minutes prior to chemotherapy. 30 Gram 0 Allergies Allergen Reactions Penicillins Rash Ciprofloxacin Rash Social History Tobacco Use Smoking status: Every Day Packs/day: 0.50 Years: 35.00 Additional pack years: 0.00 Total pack years: 17.50 Types: Cigarettes Smokeless tobacco: Never Substance Use Topics Alcohol use: Never Comment: socially Family History Problem Relation Name Age of Onset Lung Cancer Father Heart Disease Father No Known Problems Mother Diabetes Brother Diabetes Sister No Known Problems Son No Known Problems Son No Known Problems Daughter Patient Vitals for the past 8 hrs: BP Temp Temp src Pulse Resp SpO2 Height Weight 05/25/23 0718 114/71 97 ??F (36.1 ??C) Temporal 99 16 100 % 5' 6 (1.676 m) 51.2 kg (112 lb 14.4 oz) Lab Results Component Value Date PLT 566 (H) 05/25/2023 WBC 8.5 05/25/2023 HGB 13.0 05/25/2023 CREAT 0.75 05/25/2023 Imaging I reviewed relevant available imaging studies. Patient Exam Alert and oriented. No acute distress. Non-labored respirations. Grossly perfused and non cyanotic. Assessment / Plan Narda Mayen is a 62 y.o. female with history and exam as detailed above. We plan to place port. The alternatives, benefits, and risks of the procedure were discussed in detail with the patient and informed consent was obtained according to protocol after the patient expressed the wish to proceed with the procedure. No sedation will administered by the interventional radiology team. If neccess esteban, anesthesia department will take all sedation responsibilities for this procedure. documented in this encounter Plan of Treatment Upcoming Encounters Date Type Department Care Team (Late st Contact Info) Description 08/04/2024 1:00 PM OPTOMETRIST/PRACTICE OWNER Appointment Randy Hall [facility] Infusion Center [facility] Fl [address] [place] [address] Aviva Humphries MD [address] [place] [phone] Infusion Chair 5, 2nd Floor Hall 08/25/2024 1:00 PM OPTOMETRIST/PRACTICE OWNER Office Visit [facility] Gynecologic Oncology [place] [address] [place] [phone] Edilia Pettit NP [address] [place] [phone] 08/25/2024 1:30 PM OPTOMETRIST/PRACTICE OWNER Appointment Randy Proctor Hall [facility] Infusion Center [facility] Fl [address] [place] [address] Aviva Humphries MD [address] [place] [phone] Infusion Chair 1, 2nd Floor [place] 09/01/2024 10:45 AM OPTOMETRIST/PRACTICE OWNER Appointment Randy Proctor Hall [facility] Nuclear Medicine [address] [place] [address] [phone] Edilia Pettit NP [address] [place] [phone] documented as of this encounter Procedures Procedure Name Priority Date/Time Associated Diagnosis Comments IR VENOUS NECK Routine 05/25/2023 10:18 AM CDT Malignant neoplasm of ovary, unspecified laterality CBC WITH DIFFERENTIAL Stat 05/25/2023 7:15 AM CDT BASIC METABOLIC PANEL Stat 05/25/2023 7:15 AM CDT documented in this encounter Results * IR VENOUS NECK (05/25/2023 10:18 AM CDT) Anatomical Region Laterality Modality Neck X-Ray Angiograph y, Other 05/25/2023 10:3 6 AM CDT Impressions 05/25/2023 10:50 AM CDT IMPRESSION: Successful venous port placement. PLAN: The venous port is ready to use. Narrative 05/25/2023 10:50 AM CDT PROCEDURE/EXAM(S): 1. VENOUS PORT PLACEMENT. 2. ULTRASOUND-GUIDED VENOUS ACCESS. 3. FLUOROSCOPIC GUIDANCE. TIME/DATE: 05/25/2023 10:18 AM. DICTATION LOCATION: Location [address] [place] [address] PHYSICIANS: Casie Rajput MD. CLINICAL INFORMATION/INDICATION: Female of 62 years age with malignant neoplasm of ovary, unspecified laterality requires placement of central venous port. ? CONSENT: The indications, procedures, benefits, and risks (including but not limited to infection, vascular damage, and bleeding) were discussed and informed consent was obtained for the medical record per protocol. ? SEDATION: Provided by the anesthesia department as detailed in the medical record. ? TECHNIQUE/FINDINGS: Patient identification and preprocedural timeout was performed per protocol. Maximum sterile barrier technique was utilized for all aspects of the procedure. The central veins were evaluated by ultrasound and image(s) were recorded into the medical record. Ultrasound image(s) showed a patent right internal jugular vein. The overlying subcutaneous tissues were infiltrated with local anesthetic and the aforementioned vein was accessed with a 21 gauge needle using realtime ultrasound guidance. A guidewire and transitional dilator were passed centrally using fluoroscopic guidance. The intravascular length from the access site to the right atrium was measured. The overlying subcutaneous tissues were infiltrated with local anesthetic and a short transverse incision was made in the chest wall. The pocket for the port reservoir was formed by blunt dissection. After up-sizing the guidewire, the port catheter was tunneled to the venous access site, cut to the appropriate length, and inserted through a peel-away sheath using fluoroscopic guidance. The fluoroscopic image(s) showed a well positioned port and catheter with the tip near the superior cavoatrial junction and no radiologically evident complications. The port reservoir was accessed and the catheter was packed with heparin-lock solution after confirming appropriate function. The access needle was removed. The tissues at the incision sites were approximated with suture and sealed with skin glue. At the end of the procedure, a sterile dressing was applied. The patient tolerated the procedure well. ?? FLUOROSCOPY TIME / IMAGES: 0.1 minutes / 1 image(s). ? ESTIMATED BLOOD LOSS: < 5 cc. ? COMPLICATIONS: None. ?? Procedure Note Casie Rajput MD - 05/25/2023 PROCEDURE/EXAM(S): 1. VENOUS PORT PLACEMENT. 2. ULTRASOUND-GUIDED VENOUS ACCESS. 3. FLUOROSCOPIC GUIDANCE. TIME/DATE: 05/25/2023 10:18 AM. DICTATION LOCATION: Location 1 - [facility] PHYSICIANS: Casie Rajput MD. CLINICAL INFORMATION/INDICATION: Female of 62 years age with malignant neoplasm of ovary, unspecified laterality requires placement of central venous port. CONSENT: The indications, procedures, benefits, and risks (including but not limited to infection, vascular damage, and bleeding) were discussed and informed consent was obtained for the medical record per protocol. SEDATION: Provided by the anesthesia department as detailed in the medical record. TECHNIQUE/FINDINGS: Patient identification and preprocedural timeout was performed per protocol. Maximum sterile barrier technique was utilized for all aspects of the procedure. The central veins were evaluated by ultrasound and image(s) were recorded into the medical record. Ultrasound image(s) showed a patent right internal jugular vein. The overlying subcutaneous tissues were infiltrated with local anesthetic and the aforementioned vein was accessed with a 21 gauge needle using realtime ultrasound guidance. A guidewire and transitional dilator were passed centrally using fluoroscopic guidance. The intravascular length from the access site to the right atrium was measured. The overlying subcutaneous tissues were infiltrated with local anesthetic and a short transverse incision was made in the chest wall. The pocket for the port reservoir was formed by blunt dissection. After up-sizing the guidewire, the port catheter was tunneled to the venous access site, cut to the appropriate length, and inserted through a peel-away sheath using fluoroscopic guidance. The fluoroscopic image(s) showed a well positioned port and catheter with the tip near the superior cavoatrial junction and no radiologically evident complications. The port reservoir was accessed and the catheter was packed with heparin-lock solution after confirming appropriate function. The access needle was removed. The tissues at the incision sites were approximated with suture and sealed with skin glue. At the end of the procedure, a sterile dressing was applied. The patient tolerated the procedure well. FLUOROSCOPY TIME / IMAGES: 0.1 minutes / 1 image(s). ESTIMATED BLOOD LOSS: < 5 cc. COMPLICATIONS: None. IMPRESSION: Successful venous port placement. PLAN: The venous port is ready to use. Aviva Humphries MD IR ORDERABLES * (ABNORMAL) BASIC METABOLIC PANEL (05/25/2023 7:15 AM CDT) SODIUM 135(L) 136 - 145 mmol/L 05/25/2023 7:57 AM CDT [facility] POTASSIUM 4.1 3.5 - 5.0 mmol/L 05/25/2023 7:57 AM CDT [facility] CHLORIDE 98 98 - 107 mmol/L 05/25/2023 7:57 AM CDT [facility] CO2 27 22 - 29 mmol/L 05/25/2023 7:57 AM CDT [facility] CALCIUM 8.6 8.6 - 10.2 mg/dL 05/25/2023 7:57 AM CDT [facility] BUN 6(L) 8 - 23 mg/dL 05/25/2023 7:57 AM CDT [facility] CREATININE 0.75 0.51 - 0.95 mg/dL 05/25/2023 7:57 AM CDT [facility] GLUCOSE 94 74 - 99 mg/dL 05/25/2023 7:57 AM CDT [facility] GFR >60 >=60 mL/min/1.7 3 sq meter 05/25/2023 7:57 AM T [facility] Comment:eGFR calculated with 2020 CKD-EPI equation. Vegetarian diet, extremely high or low muscle mass, and may affect results. Cystatin C with Glomerular Filtration Rate is a suitable alternative for these patients. ANION GAP 10 8 - 16 mmol/L 05/25/2023 7:57 AM T [facility] Blood Venipuncture / Unknown 05/25/2023 7:15 AM CDT 05/25/2023 7:19 AM CDT Mitchell Schmidt MD CHEMISTRY ORDER KANE [facility] [employer] [facility] CLIA# [id number] [address] [facility] [place] [address] * (ABNORMAL) CBC WITH DIFFERENTIAL (05/25/2023 7:15 AM CDT) WBC 8.5 4.0 - 9.8 K/uL 05/25/2023 7:28 AM T [facility] RBC 4.91(H) 3.90 - 4.90 M/uL 05/25/2023 7:28 AM T [facility] HEMOGLOBIN 13.0 11.8 - 14.8 g/dL 05/25/2023 7:28 AM CDT [facility] HEMATOCRIT 41.7 35.5 - 44.0 % 05/25/2023 7:28 AM CDT [facility] MCV 84.9 82.0 - 99.0 fL 05/25/2023 7:28 AM CDT [facility] MCH 26.5(L) 27.2 - 32.6 pg 05/25/2023 7:28 AM CDT [facility] MCHC 31.2(L) 31.5 - 35.5 g/dL 05/25/2023 7:28 AM CDT [facility] [facility] RDW 14.9(H) 11.5 - 14.5 % 05/25/2023 7:28 AM CDT [facility] RDW-STDEV 45.5 37.1 - 48.7 fL 05/25/2023 7:28 AM CDT [facility] [facility] PLATELETS 566(H) 140 - 350 K/uL 05/25/2023 7:28 AM CDT [facility] [facility] MPV 9.8 9.3 - 12.4 fL 05/25/2023 7:28 AM CDT [facility] [facility] NEUTROPHILS 69 % 05/25/2023 7:28 AM CDT [facility] [facility] LYMPHOCYTES 21 % 05/25/2023 7:28 AM CDT [facility] [facility] MONOCYTES 8 % 05/25/2023 7:28 AM CDT [facility] [facility] EOSINOPHILS 1 % 05/25/2023 7:28 AM CDT [employer] [facility] BASOPHILS 1 % 05/25/2023 7:28 AM CDT [employer] [facility] IMMATURE GRANULOCYTES 0 % 05/25/2023 7:28 AM CDT [employer] [facility] NEUTROPHIL ABSOLUTE 5.85 1.90 - 7.00 K/uL 05/25/2023 7:28 AM CDT [employer] [facility] LYMPHOCYTE ABSOLUTE 1.76 0.70 - 4.50 K/uL 05/25/2023 7:28 AM CDT [employer] [facility] MONOCYTE ABSOLUTE 0.69 0.10 - 1.30 K/uL 05/25/2023 7:28 AM CDT [employer] [facility] EOSINOPHIL ABSOLUTE 0.09 0.00 - 0.70 K/uL 05/25/2023 7:28 AM CDT [employer] [facility] BASOPHILS ABSOLUTE 0.07 0.00 - 0.20 K/uL 05/25/2023 7:28 AM CDT [facility] [facility] IMMATURE GRANULOCYTES ABSOLUTE 0.02 0.00 - 0.03 K/uL 05/25/2023 7:28 AM CDT [facility] Blood Venipuncture / Unknown 05/25/2023 7:15 AM CDT 05/25/2023 7:19 AM CDT Mitchell Schmidt MD HEMATOLOGY JASVIR [facility] Organization Address City/State/ZIP Co de Phone Number [facility] CLIA# [id number] [address] [place] [address] documented in this encounter Visit Diagnoses Diagnosis Malignant neoplasm of ovary, unspecified laterality documented in this encounter Administered Medications Inactive Administered Medications - up to 3 most recent administrations Medication Order MAR Action Action Date Dose Rate Site acetaminophen (TYLENOL) tablet 1,000 mg 1,000 mg, Oral, PRE-PROCEDURE ONCE, 1 dose, Starting on 05/25/23 at 0647, Until Thu05/25/23 at 0724, Routine Given 05/25/2023 7:24 AM CDT 1,000 mg ondansetron (ZOFRAN ODT) tablet 8 mg 8 mg, Oral, PRE-PROCEDURE ONCE, 1 dose, Starting on Thu05/25/23 at 0647, Until 05/25/23 at 0724, Routine Given 05/25/2023 7:24 AM CDT 8 mg vancomycin (VANCOCIN) 1,000 mg in dextrose 5% 200 mL IVPB (PREMIX) 1,000 mg, IV, PRE-PROCEDURE ONCE, 1 dose, Starting on 05/25/23 at 0641, Until Thu05/25/23 at 0840, Routine, Antibiotic Indication: Surgical prophylaxis New Bag 05/25/2023 7:40 AM CDT 1,000 mg 200 mL/hr documented in this encounter Active and Recently Administered Medications Times are shown in CDT. Scheduled Medication Order 05/23/2023 05/24/2023 05/25/2023 acetaminophen (TYLENOL) tablet 1,000 mg (COMPLETED) 1,000 mg, Oral, PRE-PROCEDURE ONCE, 1 dose, Starting on 05/25/23 at 0647, Until Thu05/25/23 at 0724, Routine 0724 (Given - Provid er: Fara Carney RN) ondansetron (ZOFRAN ODT) tablet 8 mg (COMPLETED) 8 mg, Oral, PRE-PROCEDURE ONCE, 1 dose, Starting on Thu05/25/23 at 0647, Until Thu05/25/23 at 0724, Routine 0724 (Given - Provid er: Fara Carney RN) vancomycin (VANCOCIN) 1,000 mg in dextrose 5% 200 mL IVPB (PREMIX) (COMPLETED) 1,000 mg, IV, PRE-PROCEDURE ONCE, 1 dose, Starting on Thu05/25/23 at 0641, Until Thu05/25/23 at 0840, Routine, Antibiotic Indication: Surgical prophylaxis 0740 (New Bag - Prov ider: Fara Carney RN)0840 (Stopped - Provider: Fara Carney RN) documented in this encounter Care Teams Plant Physiologist Relationship Specialty Start Date End Date Shilo Soares MD [address] [place] [phone] PCP - General Internal Medicine 04/24/23 documented as of this encounter
--- OUTSIDE RECORDS SUMMARY | 2024-07-27 00:05 | XMS_ITS | Encounter Summary ---
Author Organization [employer] Address [address] [place] [address] Care Team Providers Care Chair Name Role Phone Shilo Soares MD Primary Care Provider [phone] Reason for Visit * Tx/Med Therapy Plan Auth (Routine) - Authorized Specialty Diagnoses / Procedures Referred By Alison gomez Referred To Contact Diagnoses Malignant neoplasm of ovary, unspecified laterality Encounter for antineoplastic chemotherapy Nausea Procedures MT PACLITAXEL INJECTION MT CARBOPLATIN INJECTION MT INJ MVASI 10 MG MT FOSAPREPITANT INJECTION MT PALONOSETRON HCL MT DEXAMETHASONE SODIUM PHOS MT METHYLPREDNISOLONE INJECTION MT DIPHENHYDRAMINE HCL INJECTIO MT INJECTION, FAMOTIDINE, 20 MG TAXOL, CARBO, MVASI, EMEND, ALOXI, DECADRON, SOLU MEDROL, BENADRYL, PEPCID Aviva Humphries MD [address] [facility] [address] [place] [address] [facility] 2nd Floor [place] [address] [place] [address] Referral ID Status Reason Start Date Expiration Date V isits Requested Visits Authorized [id number] Authorized 05/20/2023 05/26/2025 99 99 Encounter Details Date Type Department Care Team (Latest Contact Info) Description 05/28/2023 8:00 AM CDT - 05/28/2023 11:59 PM CDT Hospital Encounter [facility] Infusion Center 2nd Fl [address] [place] [address] Aviva Humphries MD [address] [facility] [address] [place] [address] Infusion Chair 11, 2nd Floor [...] Sign Reading Time Taken Comments Blood Pressure 109/39 05/28/2023 9:02 AM CDT Pulse 91 05/28/2023 9:02 AM CDT Temperature 36.2 ??C (97.2 ??F) 05/28/2023 9:02 AM CD T Respiratory Rate 14 05/28/2023 9:02 AM CDT Oxygen Saturation - - Inhaled [...] bedtime. 02/26/2021 fluticasone propionate (FLONASE) 50 mcg/spray [place], Suspension nasal inhaler Administer 2 Sprays in [...] Progress Notes * Chata Mendez RN - 05/28/2023 8:00 AM CDT Pt admitted to infusion center for treatment. Labs reviewed per 2 licensed providers and okay to treat per parameters. Prior to chemotherapy administration: reviewed with pt the goal of chemotherapy regimen, the method of administration, and potential side effects. Taxol/Carbo/Mvasi administered via port without adverse effects. Good blood return obtained from port. Instructed pt to notify physician or go to ED if fever 100.5 F or higher, chills, or any change in condition. Pt verbalized understanding. Discharged home. documented in this encounter Plan of Treatment Upcoming Encounters Date Type Department Care Team (Late st Contact Info) Description 08/04/2024 1:00 PM SEWING TEACHER Appointment Randy Hall [facility] Infusion Center 2nd Ne [address] [place] [address] Aviva Humphries MD [address] [facility] [address] [place] [phone] Infusion Chair 5, 2nd Floor [place] 08/25/2024 1:00 PM SEWING TEACHER Office Visit [facility] Gynecologic Oncology Hall [address] [facility] [address] [place] [address] Edilia Pettit NP [address] [facility] [address] [place] [address] 08/25/2024 1:30 PM SEWING TEACHER Appointment Randy Hall [facility] Infusion Center 2nd Fl [address] [place] [address] Aviva Humphries MD [address] [facility] [address] [facility] [place] [address] Infusion Chair 1, 2nd Floor Hall 09/01/2024 10:45 AM SEWING TEACHER Appointment [facility] [address] [place] [address] [id number] Edilia Pettit, CHELY [address] [facility] [address] [place] [address] documented as of this encounter Procedures Procedure Name Priority Date/Time Associated Diagnosis Comments URINALYSIS WITH REFLEX CULTURE Stat 05/28/2023 10:39 AM CDT Malignant neoplasm of ovary, unspecified laterality documented in this encounter Results * URINALYSIS WITH REFLEX CULTURE (05/28/2023 10:39 AM CDT) COLOR UA Yellow Pale to Dark Yellow 05/28/2023 11:16 AM T [facility] CLARITY UA Clear Clear 05/28/2023 11:16 AM [employer] [facility] SPECIFIC GRAVITY UA 1.005 1.003 - 1.035 05/28/2023 11:16 AM [employer] [facility] PH UA 5.0 5.0 - 8.0 05/28/2023 11:16 AM [employer] [facility] LEUKOCYTE ESTERASE UA Negative Negative 05/28/2023 11:16 AM [facility] NITRITE UA Negative Negative 05/28/2023 11:16 AM [employer] [facility] PROTEIN UA Negative Negative 05/28/2023 11:16 AM [facility] GLUCOSE UA Negative Negative 05/28/2023 11:16 AM [facility] KETONES UA Negative Negative 05/28/2023 11:16 AM [employer] [facility] UROBILINOGEN UA Normal <2.0 mg/dL 11:16 AM [facility] BILIRUBIN UA Negative Negative 05/28/2023 11:16 AM [facility] BLOOD UA Negative Negative 05/28/2023 11:16 AM [facility] Urine URINE SPECIMEN OBTAINED BY CLEAN CATCH PROCEDURE / Unknown Collection / Unknown 05/28/2023 10:39 AM CDT 05/28/2023 10:56 AM CDT Aviva Humphries MD URINE ORDERABLES Performing Organization Address [facility]/ZIP Co de Phone Number [facility] [employer] [facility] CLIA# [id number] [address] [place] [address] * MAGNESIUM LEVEL (05/28/2023 7:30 AM CDT) MAGNESIUM 1.9 1.6 - 2.4 mg/dL 05/28/2023 8:39 AM CDT [facility] Blood Collection / Unknown 05/28/2023 7:30 AM CDT 05/28/2023 7:56 AM CDT Aviva Humphries MD CHEMISTRY ORDERABLES Performing Organization Address City/[facility]/ZIP Co de Phone Number [facility] [employer] [facility] CLIA# [id number] [address] [place] [address] * (ABNORMAL) COMPREHENSIVE METABOLIC PANEL (05/28/2023 7:30 AM CDT) SODIUM 134(L) 136 - 145 mmol/L 05/28/2023 8:39 AM CDT [facility] POTASSIUM 4.1 3.5 - 5.0 mmol/L 05/28/2023 8:39 AM CDT [facility] - . [facility] CHLORIDE 101 98 - 107 mmol/L 05/28/2023 8:39 AM CDT [facility] CO2 27 22 - 29 mmol/L 05/28/2023 8:39 AM CDT [facility] CALCIUM 8.4(L) 8.6 - 10.2 mg/dL 05/28/2023 8:39 AM CDT [facility] BUN 7(L) 8 - 23 mg/dL 05/28/2023 8:39 AM CDT [facility] CREATININE 0.70 0.51 - 0.95 mg/dL 05/28/2023 8:39 AM [facility] GLUCOSE 88 74 - 99 mg/dL 05/28/2023 8:39 AM [facility] TOTAL PROTEIN 6.2(L) 6.7 - 8.6 g/dL 05/28/2023 8:39 AM [facility] ALBUMIN 2.6(L) 3.5 - 5.2 g/dL 05/28/2023 8:39 AM [facility] BILIRUBIN TOTAL 0.3 0.2 - 1.1 mg/dL 05/28/2023 8:39 AM [facility] ALKALINE PHOSPHATASE 131(H) 35 - 104 U/L 05/28/2023 8:39 AM [facility] AST 47(H) <33 U/L 05/28/2023 8:39 AM [facility] ALT 20 <34 U/L 05/28/2023 8:39 AM [facility] GFR >60 >=60 mL/min/1.7 3 sq meter 05/28/2023 8:39 AM [facility] Comment:eGFR calculated with 2020 CKD-EPI equation. Vegetarian diet, extremely high or low muscle mass, and may affect results. Cystatin C with Glomerular Filtration Rate is a suitable alternative for these patients. ANION GAP 6(L) 8 - 16 mmol/L 05/28/2023 8:39 AM [facility] Blood Collection / Unknown 05/28/2023 7:30 AM CDT 05/28/2023 7:56 AM [facility] - 05/28/2023 8:39 AM [facility] Samples containing indocyanine green cause interferences on Total and/or Direct Bilirubin and must not be measured. Aviva Humphries MD CHEMISTRY ORDERABLES [id number] [facility] [address] [id number] * (ABNORMAL) CBC WITH DIFFERENTIAL (05/28/2023 7:30 AM CDT) [facility] WBC 7.3 4.0 - 9.8 K/uL 05/28/2023 7:49 AM CDT [facility] RBC 4.49 3.90 - 4.90 M/uL 05/28/2023 7:49 AM CDT [facility] HEMOGLOBIN 11.8 11.8 - 14.8 g/dL 05/28/2023 7:49 AM CDT [facility] HEMATOCRIT 36.8 35.5 - 44.0 % 05/28/2023 7:49 AM CDT [facility] MCV 82.0 82.0 - 99.0 fL 05/28/2023 7:49 AM CDT [facility] MCH 26.3(L) 27.2 - 32.6 pg 05/28/2023 7:49 AM CDT [facility] MCHC 32.1 31.5 - 35.5 g/dL 05/28/2023 7:49 AM CDT [facility] RDW 14.8(H) 11.5 - 14.5 % 05/28/2023 7:49 AM CDT [facility] RDW-STDEV 44.7 37.1 - 48.7 fL 05/28/2023 7:49 AM CDT [facility] PLATELETS 579(H) 140 - 350 K/uL 05/28/2023 7:49 AM CDT [facility] MPV 9.7 9.3 - 12.4 fL 05/28/2023 7:49 AM CDT [facility] NEUTROPHILS 68 % 05/28/2023 7:49 AM CDT [facility] LYMPHOCYTES 21 % 05/28/2023 7:49 AM CDT [facility] MONOCYTES 8 % 05/28/2023 7:49 AM CDT [facility] EOSINOPHILS 1 % 05/28/2023 7:49 AM CDT [facility] BASOPHILS 1 % 05/28/2023 7:49 AM CDT [facility] IMMATURE GRANULOCYTES 0 % 05/28/2023 7:49 AM CDT [facility] NEUTROPHIL ABSOLUTE 4.96 1.90 - 7.00 K/uL 05/28/2023 7:49 AM CDT [facility] LYMPHOCYTE ABSOLUTE 1.51 0.70 - 4.50 K/uL 05/28/2023 7:49 AM CDT [facility] MONOCYTE ABSOLUTE 0.59 0.10 - 1.30 K/uL 05/28/2023 7:49 AM CDT [facility] EOSINOPHIL ABSOLUTE 0.10 0.00 - 0.70 K/uL 05/28/2023 7:49 AM CDT [facility] BASOPHILS ABSOLUTE 0.08 0.00 - 0.20 K/uL 05/28/2023 7:49 AM CDT [facility]ORATORY SERVICES - [facility] IMMATURE GRANULOCYTES ABSOLUTE 0.02 0.00 - 0.03 K/uL 05/28/2023 7:49 AM CDT [facility]ATORY SERVICES - [facility] Blood Collection / Unknown 05/28/2023 7:30 AM CDT 05/28/2023 7:46 AM CDT Aviva Humphries MD HEMATOLOGY ORDERABLE S [facility] - [facility]# [id number] [address] [place], [place] [address] [address] documented in this encounter Visit Diagnoses Diagnosis [...] ONE TIME ONLY, 1 dose, On Peace 05/28/23 at 1330, Routine New Bag 05/28/2023 2:02 PM CDT 773 mg 97.3 mL/hr CARBOplatin (PARAPLATIN) 459.5 mg in dextrose 5% 250 mL IVPB 459.5 mg (Target AUC = 5), IV, ONE TIME ONLY, 1 dose, On Peace 05/28/23 at 1300, Routine New Bag 05/28/2023 1:30 PM CDT 459.5 mg 661.9 mL/hr dexAMETHasone (DECADRON) 20 mg in sodium chloride 0.9% 100 mL IVPB (PREMIX) 20 mg, IV, ONE TIME ONLY, 1 dose, On Peace 05/28/23 at 0900, Routine New Bag 05/28/2023 9:16 AM CDT 20 mg 300 mL/hr diphenhydrAMINE (BENADRYL) injection 25 mg 25 mg, IV, ONE TIME ONLY, 1 dose, On Peace 05/28/23 at 0900, Routine Given 05/28/2023 9:08 AM CDT 25 mg famotidine PF (PEPCID) 20 mg/2 mL injection 20 mg 20 mg, IV, ONE TIME ONLY, 1 dose, On Peace 05/28/23 at 0900, Routine Given 05/28/2023 9:07 AM CDT 20 mg fosaprepitant (EMEND) 150 mg in sodium chloride 0.9% 150 mL IVPB (PREMIX) 150 mg, IV, ONE TIME ONLY, 1 dose, On Peace 05/28/23 at 0900, Routine New Bag 05/28/2023 9:40 AM CDT 150 mg 450 mL/hr PACLitaxeL (TAXOL) 271 mg in sodium chloride 0.9% (PVC free) 500 mL IVPB 271 mg (rounded from 271.25 mg = 175 mg/m2 ? 1.55 m2 Treatment Plan BSA from Recorded weight), IV, ONE TIME ONLY, 1 dose, On Peace 05/28/23 at 0930, Routine Rate Change 05/28/2023 10:44 AM CDT 200 mL/hr Rate Change 05/28/2023 10:38 AM CDT 150 mL/hr Rate Change 05/28/2023 10:27 AM CDT 100 mL/hr palonosetron (ALOXI) 0.25 mg/5 mL injection 0.25 mg 0.25 mg, IV, ONE TIME ONLY, 1 dose, On Peace 05/28/23 at 0900, Routine Given 05/28/2023 9:07 AM CDT 0.25 mg sodium chloride 0.9% infusion IV, at 30-999 mL/hr, CONTINUOUS, Starting on Peace 05/28/23 at 0900, Until Thu05/29/23 at 0305, Routine New Bag 05/28/2023 9:09 AM CDT 30 mL/hr 30 mL/hr documented in this encounter Care Teams Chair Relationship Specialty Start Date End Date Shilo Soares MD [address] [place] [address] PCP - General Internal Medicine 04/24/23 documented as of this encounter
--- OUTSIDE RECORDS SUMMARY | 2024-07-27 00:05 | XMS_ITS | Encounter Summary ---
Author Organization [facility] Address [address] [place] [address] Care Team Providers Care Recreation Clerk Name Role Phone Shilo Soares MD Primary Care Provider [phone] Reason for Visit * Reason Onset Date Comments Chemotherapy 05/27/2023 Encounter Details Date Type Department Care Team (Late Contact Info) Description 05/27/2023 Telephone [facility] Gynecologic Oncology [address] [place] [address] Aviva Humphries MD [email or web address] [place] [address] Chemotherapy Social History Tobacco Use [...] Telephone Encounter - Nae Harrington RN - 05/27/2023 8:58 AM CDT Pt called office to see if chemo has been authorized. Let her know that chemo has been authorized and she is good to go. She voiced understanding. documented in this encounter Plan of Treatment Upcoming Encounters Date Type Department Care Team (Late Contact Info) Description 08/04/2024 1:00 PM PUBLIC AID ELIGIBILITY ASSISTANT Appointment [facility] [address] [place] [address] Aviva Humphries MD [address] [place] [address] Infusion Chair 5, 2nd Floor Hall 08/25/2024 1:00 PM PUBLIC AID ELIGIBILITY ASSISTANT Office Visit [facility] Gynecologic Oncology Hall [address] [facility] [address] [place] [address] Edilia Pettit, CHELY [address] [facility] [address] [place] [phone] 08/25/2024 1:30 PM PUBLIC AID ELIGIBILITY ASSISTANT Appointment [facility] [address] [place] [address] Aviva Humphries MD [address] [facility] [address] [place] [phone] Infusion Chair 1, 2nd Floor Hall 09/01/2024 10:45 AM PUBLIC AID ELIGIBILITY ASSISTANT Appointment Randy [facility] Nuclear Medicine [address] [place] [phone] [id number] Edilia Pettit, CHELY [address] [facility] [address] [place] [phone] documented as of this encounter Visit Diagnoses Not on filedocumented in this encounter Care Teams Recreation Clerk Relationship Specialty Start Date End Date Shilo Soares MD [address] [facility] 2 [place] [address] PCP - General Internal Medicine 04/24/23 documented as of this encounter
--- OUTSIDE RECORDS SUMMARY | 2024-07-27 00:05 | XMS_ITS | Encounter Summary ---
Author Organization [facility] Address [address] [place] [address] Care Team Providers Care Surface Water Technician Name Role Phone Shilo Soares MD Primary Care Provider [phone] Reason for Visit * Reason Onset Date Comments Follow Up 05/26/2023 Encounter Details Date Type Department Care Team (Late st Contact Info) Description 05/26/2023 Telephone [facility] [address] [place] [address] Ewa Michael FNP [address] [place] [address] Follow Up Social History Tobacco Use Types [...] encounter Miscellaneous Notes * Telephone Encounter - Ewa Michael FNP - 05/26/2023 9:22 AM CDT Called Pt. To follow up on Port placement from 05/25/23. Pt. Reports she has mild soreness at the incision site, but is mitigating with ice and tylenol. She reports pain is well controlled. Pt. Does not have any further questions or concerns today. Reviewed dressing instructions and s/s of infection. Should Pt. Have any questions or concerns he can reach me at [phone] Pt. Agrees with plan and verbalizes understanding. Ewa CRONIN documented in this encounter Plan of Treatment Upcoming Encounters Date Type Department Care Team (Late st Contact Info) Description 08/04/2024 1:00 PM FRUIT CHECKER Appointment Randy [facility] Center 2nd Fl [address] [place] [address] Aviva Humphries MD [address] [facility] [address] [place] [address] Infusion Chair 5, 2nd Floor Hall 08/25/2024 1:00 PM FRUIT CHECKER Office Visit [facility] Gynecologic Oncology [place] [address] [facility] [place] [address] [place] [address] Edilia Pettit, CHELY [address] [address] 08/25/2024 1:30 PM FRUIT CHECKER Appointment [facility] 2nd Fl [address] [place] [address] Aviva Humphries MD [address] [facility] [address] [facility] [place] [address] Infusion Chair 1, 2nd Floor Hall 09/01/2024 10:45 AM FRUIT CHECKER Appointment [facility] Nuclear Medicine [address] [place] [address] [id number] Edilia Pettit, CHELY [address] [facility] [place] [address] [place] [address] documented as of this encounter Visit Diagnoses Not on filedocumented in this encounter Care Teams Surface Water Technician Relationship Specialty Start Date End Date Shilo Soares MD [address] [place] [address] [place] [phone] PCP - General Internal Medicine 04/24/23 documented as of this encounter
--- OUTSIDE RECORDS SUMMARY | 2024-07-27 00:05 | XMS_ITS | Encounter Summary ---
Author Organization [facility] Address [address] [place] [address] Care Team Providers Care Orchard Sprayer Name Role Phone Shilo Soares MD Primary Care Provider [phone] Reason for Referral * Radiology Services (Urgent) - Closed Specialty Diagnoses / Procedures Referred By Alison t Referred To Contact Diagnoses Malignant neoplasm of ovary, unspecified laterality Procedures XR ABDOMEN 1 VW Aviva Humphries MD [address] [facility] [address] [phone] Referral ID Status Reason Start Date Expiration Date Visits Re quested Visits Authorized [id number] Closed 06/01/2023 07/01/2024 1 1 Encounter Details Date Type Department Care Team (Late Contact Info) Description 06/01/2023 Orders Only [facility] Gynecologic Oncology [address] [facility] [address] [place] [address] Stevie Chavarria RN Malignant neoplasm of ovary, [...] Contact Info) Description 08/04/2024 1:00 PM WEB PORTAL DEVELOPER Appointment Randy Hall [address] [place] [address] Aviva Humphries MD [address] [facility] [address] [phone] Infusion Chair 5, 2nd Floor [place] 08/25/2024 1:00 PM WEB PORTAL DEVELOPER Office Visit [facility] Gynecologic Oncology [place] [address] [facility] [address] [place] [address] Edilia Pettit, CHELY [address] [facility] [address] [address] 08/25/2024 1:30 PM WEB PORTAL DEVELOPER Appointment Randy [facility] Infusion Center [facility] [address] [place] [phone] Aviva Humphries MD [address] [facility] [phone] Infusion Chair 1, 2nd Floor Hall 09/01/2024 10:45 AM WEB PORTAL DEVELOPER Appointment [facility] Nuclear Medicine [address] [place] [id number] Edilia Pettit, CHELY [address] [facility] [address] [phone] documented as of this encounter Results * (ABNORMAL) COMPREHENSIVE METABOLIC PANEL (06/01/2023 11:29 AM CDT) Pathologist [facility] SODIUM 133(L) 136 - 145 mmol/L 06/01/2023 12:23 PM CDT [facility] LABORATORY SERVICES - [facility] POTASSIUM 4.0 3.5 - 5.0 mmol/L 06/01/2023 12:23 PM CDT [facility] LABORATORY SERVICES - [facility] CHLORIDE 94(L) 98 - 107 mmol/L 06/01/2023 12:23 PM CDT [facility] LABORATORY SERVICES - [facility] CO2 28 22 - 29 mmol/L 06/01/2023 12:23 PM CDT [facility] LABORATORY SERVICES - [facility] CALCIUM 8.6 8.6 - 10.2 mg/dL 06/01/2023 12:23 PM [facility] BUN 11 8 - 23 mg/dL 06/01/2023 12:23 PM [facility] CREATININE 0.64 0.51 - 0.95 mg/dL 06/01/2023 12:23 PM [facility] GLUCOSE 97 74 - 99 mg/dL 06/01/2023 12:23 PM [facility] TOTAL PROTEIN 7.1 6.7 - 8.6 g/dL 06/01/2023 12:23 PM [facility] ALBUMIN 3.4(L) 3.5 - 5.2 g/dL 06/01/2023 12:23 PM [facility] BILIRUBIN TOTAL 0.7 0.2 - 1.1 mg/dL 06/01/2023 12:23 PM [facility] ALKALINE PHOSPHATASE 192(H) 35 - 104 U/L 06/01/2023 12:23 PM [facility] AST 68(H) <33 U/L 06/01/2023 12:23 PM [facility] ALT 56(H) <34 U/L 06/01/2023 12:23 PM [facility] GFR >60 >=60 mL/min/1.7 3 sq meter 06/01/2023 12:23 PM [facility] Comment:eGFR calculated with 2020 CKD-EPI equation. Vegetarian diet, extremely high or low muscle mass, and may affect results. Cystatin C with Glomerular Filtration Rate is a suitable alternative for these patients. ANION GAP 11 8 - 16 mmol/L 06/01/2023 12:23 PM [facility] Blood Collection / Unknown 06/01/2023 11:29 AM CDT 06/01/2023 11:52 AM T [facility] LABORATORY [facility] - 06/01/2023 12:23 PM CDT Samples containing indocyanine green cause interferences on Total and/or Direct Bilirubin and must not be measured. Aviva Humphries MD CHEMISTRY ORDERABLES [facility] LABORATORY SERVICES - [facility] CLIA# [id number] [address] [place] [address] * (ABNORMAL) CBC WITH DIFFERENTIAL (06/01/2023 11:29 AM CDT) WBC 10.4(H) 4.0 - 9.8 K/uL 06/01/2023 12:04 PM CDT [facility] LABORATORY SERVICES - . [facility] RBC 4.57 3.90 - 4.90 M/uL 06/01/2023 12:04 PM CDT [facility] LABORATORY SERVICES - . [facility] HEMOGLOBIN 12.0 11.8 - 14.8 g/dL 06/01/2023 12:04 PM CDT [facility] LABORATORY SERVICES - . [place] HEMATOCRIT 37.3 35.5 - 44.0 % 06/01/2023 12:04 PM CDT [facility] LABORATORY SERVICES - . [facility] MCV 81.6(L) 82.0 - 99.0 fL 06/01/2023 12:04 PM CDT [facility] LABORATORY SERVICES - . [facility] MCH 26.3(L) 27.2 - 32.6 pg 06/01/2023 12:04 PM CDT [facility] LABORATORY SERVICES - . [facility] MCHC 32.2 31.5 - 35.5 g/dL 06/01/2023 12:04 PM CDT [facility] LABORATORY SERVICES - . [facility] RDW 14.8(H) 11.5 - 14.5 % 06/01/2023 12:04 PM CDT [facility] LABORATORY SERVICES - [facility] RDW-STDEV 43.7 37.1 - 48.7 fL 06/01/2023 12:04 PM CDT [facility] LABORATORY SERVICES - . [place] PLATELETS 446(H) 140 - 350 K/uL 06/01/2023 12:04 PM CDT [facility] LABORATORY SERVICES - . [facility] MPV 10.6 9.3 - 12.4 fL 06/01/2023 12:04 PM CDT [facility] LABORATORY SERVICES - [facility] NEUTROPHILS 87 % 06/01/2023 12:04 PM CDT [facility]ORATORY SERVICES - [facility] LYMPHOCYTES 10 % 06/01/2023 12:04 PM CDT [facility]ATORY SERVICES - [facility] MONOCYTES 1 % 06/01/2023 12:04 PM CDT [facility]ATORY SERVICES - [facility] EOSINOPHILS 1 % 06/01/2023 12:04 PM CDT [facility] LAB[facility]ATORY SERVICES - [facility] BASOPHILS 0 % 06/01/2023 12:04 PM CDT [facility]ATORY SERVICES - [facility] IMMATURE GRANULOCYTES 1 % 06/01/2023 12:04 PM CDT [facility]ATORY SERVICES - [facility] Comment:IG (Immature Granulo cyte) count includes Metamyelocytes, Myelocytes, and Promyelocytes NEUTROPHIL ABSOLUTE 9.11(H) 1.90 - 7.00 K/uL 06/01/2023 12:04 PM CDT [facility] LABORATORY SERVICES - [facility] LYMPHOCYTE ABSOLUTE 1.09 0.70 - 4.50 K/uL 06/01/2023 12:04 PM CDT [facility]ORATORY SERVICES - [facility] MONOCYTE ABSOLUTE 0.06(L) 0.10 - 1.30 K/uL 06/01/2023 12:04 PM CDT [facility] LABORATORY SERVICES - . [facility] EOSINOPHIL ABSOLUTE 0.10 0.00 - 0.70 K/uL 06/01/2023 12:04 PM CDT [facility] LABORATORY SERVICES - . [facility] BASOPHILS ABSOLUTE 0.02 0.00 - 0.20 K/uL 06/01/2023 12:04 PM CDT [facility] LABORATORY SERVICES - [facility] IMMATURE GRANULOCYTES ABSOLUTE 0.06(H) 0.00 - 0.03 K/uL 06/01/2023 12:04 PM CDT [facility]ATORY SERVICES - [facility] Blood Collection / Unknown 06/01/2023 11:29 AM CDT 06/01/2023 12:01 PM CDT Aviva Humphries MD [facility]OLOG[id number] [address] [facility] [address] [place], [place] [address] * XR ABDOMEN 1 VW (06/01/2023 10:56 AM CDT) Anatomical Region Laterality Modality Abdomen Computed Radiogr aphy 06/01/2023 10:5 6 AM CDT Impressions 06/01/2023 11:15 AM CDT IMPRESSION: Normal abdomen. DICTATION LOCATION: [address] Narrative 06/01/2023 11:15 AM CDT EXAM: ABDOMEN, AP [...] organomegaly. IMPRESSION: Normal abdomen. DICTATION LOCATION: Location [address] [place] [address] Aviva Humphries MD DIAGNOSTIC IMAGING O RDERABLES documented in this encounter Visit Diagnoses Diagnosis Malignant neoplasm of ovary, unspecified laterality- Primary Malignant neoplasm of ovary, unspecified laterality documented in this encounter Care Teams Orchard Sprayer Relationship Specialty Start Date End Date Shilo Soares MD [address] [place] [address] PCP - General Internal Medicine 04/24/23 documented as of this encounter
--- OUTSIDE RECORDS SUMMARY | 2024-07-27 00:05 | XMS_ITS | Encounter Summary ---
Author Organization [facility] Address [address] [place] [address] Care Team Providers Care Mill Turner Name Role Phone Shilo Soares MD Primary Care Provider [phone] Encounter Details Date Type Department Care Team (Late Contact Info) Description 05/25/2023 Orders Only [facility] Gynecologic Oncology [address] [place] [address] Aviva Humphries MD [address] [place] [address] Social History Tobacco Use Types [...] Info) Description 08/04/2024 1:00 PM CRIME SCENE ANALYST Appointment [facility] Infusion Center 2nd Fl [address] [place] [address] Aviva Humphries MD [address] [place] [address] Infusion Chair 5, 2nd Floor [place] 08/25/2024 1:00 PM CRIME SCENE ANALYST Office Visit [facility] Gynecologic Oncology Hall [address] [place] [address] Edilia Pettit NP [address] [place] [address] 08/25/2024 1:30 PM CRIME SCENE ANALYST Appointment [facility] Infusion Center 2nd Fl [address] [facility] [place] [phone] Aviva Humphries MD [address] [facility] [place] [address] Infusion Chair 1, 2nd Floor [place] 09/01/2024 10:45 AM CRIME SCENE ANALYST Appointment Randy Hall Cancer [facility] Nuclear Medicine [address] [place] [address] [id number] Edilia Pettit, CHELY [address] [facility] [address] [place] [address] documented as of this encounter Visit Diagnoses Not on filedocumented in this encounter Care Teams Mill Turner Relationship Specialty Start Date End Date Shilo Soares MD [address] [place] [phone] PCP - General Internal Medicine 04/24/23 documented as of this encounter
--- OUTSIDE RECORDS SUMMARY | 2024-07-27 00:05 | XMS_ITS | Encounter Summary ---
Author Organization [facility] Address [address] [place] [address] Care Team Providers Care Mixer Runner Name Role Phone Shilo Soares MD Primary Care Provider [phone] Reason for Visit * Reason Onset Date Comments Chemotherapy 05/15/2023 Encounter Details Date Type Department Care Team (Late st Contact Info) Description 05/15/2023 Telephone [facility] Gynecologic Oncology [address] [place] [address] Aviva Humphries MD [address] [facility] [address] [place] [address] Chemotherapy Social History Tobacco Use [...] Telephone Encounter - Nae Harrington RN - 05/15/2023 10:58 AM CDT Pt called office to see if we talked with Dr. Carter office about getting chemo set up. Let her know that I did speak with the office and she sees him for a F/U on Thursday and they will get her set upfor chemo at that appt. She voiced understanding. She is aware to F/U with Dr. Humphries after 2-3 cycles. documented in this encounter Plan of Treatment Upcoming Encounters Date Type Department Care Team (Late st Contact Info) Description 08/04/2024 1:00 PM TECHNICIAN SUPPORT ENGINEER Appointment Randy [facility] Center 2nd Fl [address] [place] [address] Aviva Humphries MD [address] [facility] [address] [place] [phone] Infusion Chair 5, 2nd Floor [place] 08/25/2024 1:00 PM TECHNICIAN SUPPORT ENGINEER Office Visit [facility] Gynecologic Oncology [place] [address] [address] Edilia Pettit NP [address] [phone] 08/25/2024 1:30 PM TECHNICIAN SUPPORT ENGINEER Appointment Randy Proctor [facility] Center 2nd Fl [address] [place] [address] Aviva Humphries MD [address] [facility] [address] [place] [address] Infusion Chair 1, [address] [place] [address] 09/01/2024 10:45 AM TECHNICIAN SUPPORT ENGINEER Appointment [facility] Nuclear Medicine [address] [place] [address] [id number] Edilia Pettit, CHELY [address] [place] [address] documented as of this encounter Visit Diagnoses Not on filedocumented in this encounter Care Teams Mixer Runner Relationship Specialty Start Date End Date Shilo Soares MD [address] [facility] [address] [place] [address] PCP - General Internal Medicine 04/24/23 documented as of this encounter
--- OUTSIDE RECORDS SUMMARY | 2024-07-27 00:05 | XMS_ITS | Encounter Summary ---
Author Organization [facility] Address [address] [place] [address] Care Team Providers Care Level Vial Inspector And Tester Name Role Phone Shilo Soares MD Primary Care Provider [phone] Reason for Visit * Reason Onset Date Comments symptoms 06/01/2023 Encounter Details Date Type Department Care Team (Late st Contact Info) Description 06/01/2023 Telephone [facility] Gynecologic Oncology [address] [address] [place] [address] Aviva Humphries MD [address] [place] [address] symptoms Social History Tobacco Use Types Packs/Day [...] Encounter - Stevie Chavarria RN - 06/01/2023 9:40 AM CDT Patients daughter called in regards to patients new symptoms. Patient has not had a bowel movement since . States patient has tried colace and miralax alternating and will try MOM next. Patient is not eating but denies nausea and vomiting. Patient is having abdominal pain, and feeling dizzy. Patient denies chest pain but is feeling wheezy and patient daughter states she is an asthmatic. Told patients daughter to bring patient to get a stat x ray and labs. Patients daughter voiced understanding., documented in this encounter Plan of Treatment Upcoming Encounters Date Type Department Care Team (Late st Contact Info) Description 08/04/2024 1:00 PM MOBILE PRODUCT MANAGER Appointment Randy [facility] Infusion Center 2nd Fl [address] [place] [address] Aviva Humphries MD [address] [facility] [address] [place] [address] Infusion Chair 5, 2nd Floor [place] 08/25/2024 1:00 PM MOBILE PRODUCT MANAGER Office Visit [facility] Gynecologic Oncology [place] [address] [facility] [address] [place] [address] Edilia Pettit, CHELY [address] [facility] [address] [place] [address] 08/25/2024 1:30 PM MOBILE PRODUCT MANAGER Appointment Randy [facility] Infusion Center 2nd Fl [address] [place] [address] Aviva Humphries MD [address] [facility] [address] [facility] [place] [phone] Infusion Chair 1, 2nd Floor [place] 09/01/2024 10:45 AM MOBILE PRODUCT MANAGER Appointment [facility] Nuclear Medicine [address] [place] [address] [id number] Edilia Pettit, CHELY [address] [facility] [address] [place] [phone] documented as of this encounter Results * XR CHEST PA AND LATERAL 2 VW (06/01/2023 10:56 AM CDT) Anatomical Region Laterality Modality Chest Computed Radiogr aphy 06/01/2023 10:5 6 AM CDT Impressions 06/01/2023 11:00 AM CDT IMPRESSION: ?? Normal chest x-ray. ?? DICTATION LOCATION: Location - [facility] Narrative 06/01/2023 11:00 AM CDT EXAM: PA [...] IMPRESSION: Normal chest x-ray. DICTATION LOCATION: Location [address] [place] [address] Aviva Humphries MD DIAGNOSTIC IMAGING O RDERABLES documented in this encounter Visit Diagnoses Diagnosis Malignant neoplasm of ovary, unspecified laterality- Primary Malignant neoplasm of ovary, unspecified laterality documented in this encounter Care Teams Level Vial Inspector And Tester Relationship Specialty Start Date End Date Shilo Soares MD [address] [place] [address] PCP - General Internal Medicine 04/24/23 documented as of this encounter
--- OUTSIDE RECORDS SUMMARY | 2024-07-27 00:05 | XMS_ITS | Encounter Summary ---
Author Organization [facility] Address [address] [place] [address] Care Team Providers Care Oncology Radiation Physician Name Role Phone Shilo Soares MD Primary Care Provider [phone] Reason for Referral * Radiology Services (Routine) - Closed Specialty Diagnoses / Procedures Referred By Contact Referred To Contact Interventional Radiology Diagnoses Malignant neoplasm of ovary, unspecified laterality Procedures IR VENOUS NECK Aviva Humphries MD [address] [facility] [address] [place] [address] [facility] Interventional Radiology [address] [place] [address] Referral ID Status Reason Start Date Expiration Date Visits Re quested Visits Authorized [id number] Closed 05/18/2023 06/17/2024 1 1 Encounter Details Date Type Department Care Team ([facility] Contact Info) Description 05/18/2023 Orders Only [facility] Gynecologic Oncology [address] [facility] [address] [place] [address] Stevie Chavarria RN Malignant neoplasm [...] Upcoming Encounters Date Type Department Care Team ([facility] Contact Info) Description 08/04/2024 1:00 PM WEALTH MANAGEMENT CONSULTANT Appointment Randy [facility] Infusion Center 2nd Ok [address] [place] [address] Aviva Humphries MD [address] [facility] [address] [place] [address] Infusion Chair 5, [address] [place] [address] 08/25/2024 1:00 PM WEALTH MANAGEMENT CONSULTANT Office Visit [facility] Gynecologic Oncology [place] [address] [facility] [address] [place] [phone] Edilia Pettit, CHELY [address] [address] 08/25/2024 1:30 PM WEALTH MANAGEMENT CONSULTANT Appointment [facility] Infusion Center 2nd [place] [address] [place] [address] Aviva Humphries MD [address] [facility] [address] [place] [address] Infusion Chair 1, [address] [place] [address] 09/01/2024 10:45 AM WEALTH MANAGEMENT CONSULTANT Appointment [facility] Nuclear Medicine [address] [place] [address] [id number] Edilia Pettit, CHELY [address] [phone] documented as of this encounter Results * IR VENOUS NECK [...] 10:18 AM. DICTATION LOCATION: Location 1 - [facility] PHYSICIANS: Casie Rajput MD. CLINICAL INFORMATION/INDICATION: Female [...] 10:18 AM. DICTATION LOCATION: Location 1 - [facility] PHYSICIANS: Casie Rajput MD. CLINICAL INFORMATION/INDICATION: Female [...] to use. Aviva Humphries MD IR ORDERABLES documented in this encounter Visit Diagnoses Diagnosis Malignant neoplasm of ovary, unspecified laterality- Primary Malignant neoplasm of ovary, unspecified laterality documented in this encounter Care Teams Oncology Radiation Physician Relationship Specialty Start Date End Date Shilo Soares MD [address] [place] [address] PCP - General Internal Medicine 04/24/23 documented as of this encounter
--- OUTSIDE RECORDS SUMMARY | 2024-07-27 00:05 | XMS_ITS | Encounter Summary ---
Author Organization [facility] [employer] Address [address] [place] [address] Care Team Providers Care Piping Manager Name Role Phone Shilo Soares MD Primary Care Provider [phone] Encounter Details Date Type Department Care Team (Latest Contact Info) Description 05/28/2023 7:00 AM CDT - 05/28/2023 11:59 PM CDT Hospital Encounter Randy [facility] [address] [place] [address] Aviva Humphries MD [address] [place] [address] Discharge Disposition: Home or Self [...] bedtime. 02/26/2021 fluticasone propionate (FLONASE) 50 mcg/spray [place], Suspension nasal inhaler Administer 2 Sprays in [...] st Contact Info) Description 08/04/2024 1:00 PM HAIRSPRING FABRICATION SUPERVISOR Appointment Randy [facility] Infusion Center [facility] [address] [place] [address] Aviva Humphries MD [address] [facility] [address] [place] [phone] Infusion Chair 5, 2nd Floor [place] 08/25/2024 1:00 PM HAIRSPRING FABRICATION SUPERVISOR Office Visit [facility] Gynecologic Oncology [place] [address] [facility] [address] [place] [phone] Edilia Pettit NP [address] [facility] [address] [place] [phone] 08/25/2024 1:30 PM HAIRSPRING FABRICATION SUPERVISOR Appointment Randy Hall [facility] Infusion Center [facility] [address] [place] [address] Aviva Humphries MD [address] [facility] [address] [place] [phone] Infusion Chair 1, 2nd Floor [place] 09/01/2024 10:45 AM HAIRSPRING FABRICATION SUPERVISOR Appointment Randy Proctor [facility] Nuclear Medicine [address] [place] [address] [phone] Edilia Pettit NP [address] [place] [address] documented as of this encounter Procedures Procedure Name Priority Date/Time Associated Diagnosis Comments CBC WITH DIFFERENTIAL Stat 05/28/2023 7:30 AM CDT Malignant neoplasm of ovary, unspecified laterality CANCER ANTIGEN 125 Stat 05/28/2023 7: 30 AM CDT Malignant neoplasm of ovary, unspecified laterality MAGNESIUM LEVEL Stat 05/28/2023 7:30 AM CDT Malignant neoplasm of ovary, unspecified laterality COMPREHENSIVE METABOLIC PANEL Stat 05/28/2023 7:30 AM CDT Malignant neoplasm of ovary, unspecified laterality documented in this encounter Results * (ABNORMAL) CANCER ANTIGEN 125 (05/28/2023 7:30 AM CDT) CA 125 304.0(H) <35.0 U/mL 05/28/2023 9:38 AM CDT [facility] Blood Collection / Unknown 05/28/2023 7:30 AM CDT 05/28/2023 7:56 AM CDT Narrative [facility] - 05/28/2023 9:38 AM CDT The concentration of CA 125 in [...] during . Aviva Humphries MD CHEMISTRY ORDERABLES [facility]# [id number] [address] [place] [address] * MAGNESIUM LEVEL (05/28/2023 7:30 AM CDT) MAGNESIUM 1.9 1.6 - 2.4 mg/dL 05/28/2023 8:39 AM CDT [facility] Blood Collection / Unknown 05/28/2023 7:30 AM CDT 05/28/2023 7:56 AM CDT Aviva Humphries MD CHEMISTRY ORDERABLES [facility] CLIA# [id number] 5 SKarely [facility] D[place]EL [place], [place] [address] * (ABNORMAL) COMPREHENSIVE METABOLIC PANEL (05/28/2023 7:30 AM CDT) Pathologist [facility] SODIUM 134(L) 136 - 145 mmol/L 05/28/2023 8:39 AM CDT [facility] POTASSIUM 4.1 3.5 - 5.0 mmol/L 05/28/2023 8:39 AM CDT [facility] CHLORIDE 101 98 - 107 mmol/L 05/28/2023 8:39 AM CDT [facility] CO2 27 22 - 29 mmol/L 05/28/2023 8:39 AM CDT [facility] CALCIUM 8.4(L) 8.6 - 10.2 mg/dL 05/28/2023 8:39 AM CDT [facility] BUN 7(L) 8 - 23 mg/dL 05/28/2023 8:39 AM CDT [facility] CREATININE 0.70 0.51 - 0.95 mg/dL 05/28/2023 8:39 AM CDT [facility] GLUCOSE 88 74 - 99 mg/dL 05/28/2023 8:39 AM CDT [facility] TOTAL PROTEIN 6.2(L) 6.7 - 8.6 g/dL 05/28/2023 8:39 AM CDT [facility] ALBUMIN 2.6(L) 3.5 - 5.2 g/dL 05/28/2023 8:39 AM CDT [facility] BILIRUBIN TOTAL 0.3 0.2 - 1.1 mg/dL 05/28/2023 8:39 AM T [facility] ALKALINE PHOSPHATASE 131(H) 35 - 104 U/L 05/28/2023 8:39 AM T [facility] AST 47(H) <33 U/L 05/28/2023 8:39 AM [facility] ALT 20 <34 U/L 05/28/2023 8:39 AM T [facility] GFR >60 >=60 mL/min/1.7 3 sq meter 05/28/2023 8:39 AM T [facility] Comment:eGFR calculated with 2020 CKD-EPI equation. Vegetarian diet, extremely high or low muscle mass, and may affect results. Cystatin C with Glomerular Filtration Rate is a suitable alternative for these patients. ANION GAP 6(L) 8 - 16 mmol/L 05/28/2023 8:39 AM [facility] Blood Collection / Unknown 05/28/2023 7:30 AM CDT 05/28/2023 7:56 AM CDT [facility] - 05/28/2023 8:39 AM CDT Samples containing indocyanine green cause interferences on Total and/or Direct Bilirubin and must not be measured. Aviva Humphries MD CHEMISTRY ORDERABLES [facility]# [id number] 5 [facility] [place] [address] * (ABNORMAL) CBC WITH DIFFERENTIAL (05/28/2023 7:30 AM CDT) WBC 7.3 4.0 - 9.8 K/uL 05/28/2023 7:49 AM CDT [facility] RBC 4.49 3.90 - 4.90 M/uL 05/28/2023 7:49 AM T [facility] HEMOGLOBIN 11.8 11.8 - 14.8 g/dL 05/28/2023 7:49 AM CDT [facility] HEMATOCRIT 36.8 35.5 - 44.0 % 05/28/2023 7:49 AM CDT [facility] MCV 82.0 82.0 - 99.0 fL 05/28/2023 7:49 AM CDT [facility] MCH 26.3(L) 27.2 - 32.6 pg 05/28/2023 7:49 AM CDT [facility] MCHC 32.1 31.5 - 35.5 g/dL 05/28/2023 7:49 AM CDT [facility] RDW 14.8(H) 11.5 - 14.5 % 05/28/2023 7:49 AM CDT [facility] RDW-STDEV 44.7 37.1 - 48.7 fL 05/28/2023 7:49 AM CDT [facility] PLATELETS 579(H) 140 - 350 K/uL 05/28/2023 7:49 AM CDT [facility] MPV 9.7 9.3 - 12.4 fL 05/28/2023 7:49 AM CDT [facility] NEUTROPHILS 68 % 05/28/2023 7:49 AM CDT [facility] LYMPHOCYTES 21 % 05/28/2023 7:49 AM CDT [facility] MONOCYTES 8 % 05/28/2023 7:49 AM CDT [facility] EOSINOPHILS 1 % 05/28/2023 7:49 AM CDT [facility] BASOPHILS 1 % 05/28/2023 7:49 AM CDT [facility] IMMATURE GRANULOCYTES 0 % 05/28/2023 7:49 AM CDT [facility] NEUTROPHIL ABSOLUTE 4.96 1.90 - 7.00 K/uL 05/28/2023 7:49 AM CDT [facility] LYMPHOCYTE ABSOLUTE 1.51 0.70 - 4.50 K/uL 05/28/2023 7:49 AM CDT [facility] MONOCYTE ABSOLUTE 0.59 0.10 - 1.30 K/uL 05/28/2023 7:49 AM CDT [facility] EOSINOPHIL ABSOLUTE 0.10 0.00 - 0.70 K/uL 05/28/2023 7:49 AM CDT [facility] BASOPHILS ABSOLUTE 0.08 0.00 - 0.20 K/uL 05/28/2023 7:49 AM CDT [facility] IMMATURE GRANULOCYTES ABSOLUTE 0.02 0.00 - 0.03 K/uL 05/28/2023 7:49 AM CDT [facility] Blood Collection / Unknown 05/28/2023 7:30 AM CDT 05/28/2023 7:46 AM CDT Aviva Humphries MD HEMATOLOGY ORDERABLE S [facility] [id number] [address] [place] [address] [place] [address] documented in this encounter Visit Diagnoses Diagnosis Malignant neoplasm of ovary, unspecified laterality documented in this encounter Administered Medications Inactive Administered Medications - up to 3 most recent administrations Medication Order MAR Action Action Date Dose Rate Site sodium chloride flush injection 20 mL 20 mL, IV, SEE ADMIN INSTRUCTIONS, Starting on Peace 05/28/23 at 0729, Until 05/29/23 at 0305, Routine Given 05/28/2023 7:34 AM CDT 20 mL documented in this encounter Care Teams Piping Manager Relationship Specialty Start Date End Date Shilo Soares MD [address] [place] [address] PCP - General Internal Medicine 04/24/23 documented as of this encounter
--- OUTSIDE RECORDS SUMMARY | 2024-07-27 00:05 | XMS_ITS | Encounter Summary ---
Author Organization [facility] Address [address] [place] [address] Care Team Providers Care Lambskin Trimmer Name Role Phone Shilo Soares MD Primary Care Provider [phone] Encounter Details Date Type Department Care Team (Late Contact Info) Description 05/15/2023 Abstract [facility] Gynecologic Oncology [address] [place] [address] Aviva Humphries MD [address] [place] [address] Social History Tobacco Use Types [...] (Late Contact Info) Description 08/04/2024 1:00 PM TRIM STENCIL MAKER Appointment [facility] 2nd Fl [address] [place] [address] Aviva Humphries MD [address] [place] [address] Infusion Chair 5, 2nd Floor [place] 08/25/2024 1:00 PM TRIM STENCIL MAKER Office Visit [facility] Gynecologic Oncology Hall [address] [place] [address] Edilia Pettit NP [address] [place] [address] 08/25/2024 1:30 PM TRIM STENCIL MAKER Appointment [facility] 2nd Fl [address] [place] [address] Aviva Humphries MD [address] [place] [address] Infusion Chair 1, 2nd Floor [place] 09/01/2024 10:45 AM TRIM STENCIL MAKER Appointment Randy Proctor [facility] Nuclear Medicine [address] [place] [address] [phone] Edilia Pettit, CHELY [address] [facility] [address] [place] [address] documented as of this encounter Visit Diagnoses Not on filedocumented in this encounter Care Teams Lambskin Trimmer Relationship Specialty Start Date End Date Shilo Soares MD [address] [facility] [address] [place] [address] PCP - General Internal Medicine 04/24/23 documented as of this encounter
--- OUTSIDE RECORDS SUMMARY | 2024-07-27 00:05 | XMS_ITS | Encounter Summary ---
Author Organization [facility] Address [address] [place] [address] Care Team Providers Care Fire Safety Director Name Role Phone Shilo Soares MD Primary Care Provider [phone] Reason for Visit * Auth/Cert (Routine) Specialty Diagnoses / Procedures Referred By Alison t Referred To Contact General Surgery Diagnoses Malignant neoplasm of ovary, unspecified laterality Procedures IR VENOUS NECK Aviva Humphries MD [address] [facility] [address] [place] [address] [facility] Int Unit [place] [address] [place] [address] Referral ID Status Reason Start Date Expiration Date Visits Re quested Visits Authorized [id number] 1 1 Encounter Details Date Type Department Care Team (Late st Contact Info) Description 05/25/2023 9:48 AM CDT Anesthesia Event [facility] Interventional Radiology [facility] [address] [place] [address] Yulia Madrid MD [address] [place] [address] Anesthesia Record Procedure Summary Procedure Name Responsible Anesthesiologist Anesthesia Start Time Anesthesia Stop Time IR VENOUS NECK Yulia Madrid MD 05/25/23 0948 05/10 01/30 1037 Events Date Time Event Comment 05/25/2023 0900 0948 AN Equip Check Anesthesia eq uipment and materials checked in accordance with local policy. 0948 An Start 0948 An Start Data 0953 Pre-Induction Immediate pre- induction anesthetic assessment performed. Vital signs as noted on graphic. 0956 An Induction 1001 Anesthesia Ready 1033 an stop data 1037 Hand-off to Receiving Clinic radha Post-Anesthetic transfer of care report elements to appropriate post-anesthesia recovery environment completed in accordance with procedure. 1037 An Stop Meds Name Total lidocaine PF (XYLOCAINE MPF) 20 mg/mL sy ringe 40 mg propofol (DIPRIVAN) 10??mg/mL injection 72.7 mg lactated ringers infusion 300 mL * Agents Name O2 N2O Inspired N2O O2 * Blood No blood administrations on file. Lines, Drains, and Airways Type Details Placement Removal Peripheral IV Pre-Hospital Start: No; Orientation: Right, Lower; Location: Arm; Device: Angiocath; Gauge: 20 gauge; Needle Length: 1/2 in length; Insertion Attempts: 1; Patient Tolerance: tolerated well; Removal Indication: no longer indicated; Removal Interventions: pressure dressing, catheter intact 05/25/23 0705 by Fara Carney RN 05/25/23 1135 by Fara Carney RN Wound 05/25/23; 1022; Righ t; neck; puncture; [...] by Siobhan Robertson RN 07/14/24 1309 by Ashlee Miller RN documented in this encounter Social History [...] of this encounter OR Notes * Anesthesia Postprocedure Evaluation - Yulia Madrid MD - 05/25/2023 2:44 PM CDT Post Anesthesia Evaluation Vitals: Vitals Value Taken Time BP 109/67 05/25/23 1115 Temp 36.1 ??C 05/25/23 1036 Resp 16 05/25/23 1036 SpO2 97 % 05/25/23 1120 Pulse 77 05/25/23 1120 Heart Rate Vitals shown include unvalidated device data. Pain Rating: Pain Rating: Activity: 0 (05/25/23 0718) Anesthesia Post Evaluation Patient location during evaluation: PACU Patient participation: patient was able to participate in the post op evaluation Level of consciousness: 0 = alert, responsive, answers simple questions appropriately, able to perform simple tasks Airway patency: patent Nausea or Vomiting: none Cardiovascular status: regular rate and rhythm Respiratory status: no respiratory symptoms Hydration status: well hydrated Phase II Postanesthesia Evaluation Including [facility]cy Modified Katerina Score Patient seen and evaluated: Mercy Modified Katerina Score: COMMENTS: No apparent Anesthesia related complications RESPIRATORY FUNCTION: [2=able to breathe and cough freely, 1=dyspnea, limited breathing or tachypnea, 0=apnea or mechanicventilator] [2=able to maintain O2 saturation greater than 92% on room air, 1=needs O2 inhalation to maintain O2 saturation greater than 90%, 0=O2 saturation less than 90% even with O2 supplement] Resp: 16 (05/25/23 1036)SpO2: 96 % (05/25/23 1036) CARDIOVASCULAR FUNCTION: BP: 98/57 (05/25/23 1036) [2=BP within 20% of preanesthetic level, 1=BP within 20-49% of preanesthetic level, 0=BP within 50%of preanesthetic level] MENTAL STATUS, NEURO, ACTIVITY: PATIENT PARTICIPATION IN EVALUATIONyes [2=fully awake, 1=arousable on calling, 0=not responding] [2=able to move 4 extremities voluntarily or on command, 1=able to move 2 extremities voluntarily or on command, 0=unable to move extremities voluntarily or on command] [2=able to stand up and walk straight, on ordered bedrest, or performing at patient's prior level of function, 1=vertigo when erect, 0=dizziness when supine] TEMPERATURE: Temp: 36.1 ??C (05/25/23 1036) PAIN: [2=pain free, 1=pain handled by oral medication, 0=pain requiring parenteral medication] NAUSEA AND VOMITING: no nausea and no vomiting [2=able to drink fluids, ice chips or NPO, 1=nauseated, 0=nausea and vomiting] POSTOPERATIVE HYDRATION: well hydrated Intake/Output Summary (Last 24 hours) at 05/25/2023 1444 Last data filed at 05/25/2023 1030 Gross per 24 hour Intake 300 ml Output -- Net 300 ml [2=has voided, adequate urine output per device, or not applicable, 1=unable to void but comfortable, 0=unable to void and uncomfortable] WOUND: [2=dry and clean or not applicable, 1=wet, marked and not increasing, 0=growing area of wetness] Yulia Madrid MD 05/25/2023 2:44 PM No notable events documented. Yulia Madrid MD * Anesthesia Handoff - Camilla Bautista AA-C - 05/25/2023 10:37 AM CDT Post-Anesthetic transfer of care report elements to appropriate post-anesthesia recovery environment completed in accordance with procedure. I completed my handoff to the receiving nurse during which we: 1. Identified the patient 2. Identified the responsible provider 3. Reviewed the pertinent medical history 4. Discussed the surgical course 5. Reviewed intra-op anesthesia management and issues during anesthesia 6. Set expectations for post-procedure period 7. Orders as necessary and appropriate for continuation of care are present in Epic. 8. Allowed opportunity for questions and acknowledgement of understanding. Vital Signs: BP: 98/57 (05/25/2023 10:36 AM) Pulse: 80 (05/25/2023 10:36 AM) Temp: 36.1 ??C (05/25/2023 10:36 AM) Resp: 16 (05/25/2023 10:36 AM) SpO2: 96 % (05/25/2023 10:36 AM) 10:39 AM MARTHA Monzon * Anesthesia Preprocedure Evaluation - Yulia Madrid MD - 05/25/2023 8:58 AM CDT Relevant Problems No relevant active problems Anesthesia Evaluation Patient summary reviewed and Nursing notes reviewed Airway Mallampati: II TM distance: >3 FB Neck ROM: full Dental - normal exam (+) natural Pulmonary - normal exam breath sounds clear to auscultation (+) COPD, asthma ROS comment: Albuterol use 3-4 times daily Daily smoker Cardiovascular - normal exam Exercise tolerance: good Rhythm: regular Rate: normal Neuro/Psych GI/Hepatic/Renal (+) GERD Comments: With dietary changes or ascites accumulation; OK day of surgery Endo/Other Comments: Ovarian CA Abdominal Anesthesia History Anesthesia Plan ASA Final: 3 MAC (Discussed risk of recall LMA/ETT as needed) Mask airway maintenance NPO status > 8 hours Anesthetic plan and risks discussed with Patient. Plan discussed with Process Steward. Post-op Pain Control Plan to use IV or IM medication for post-op pain control. Smoking Compliance patient smoked on day of surgery documented in this encounter Plan of Treatment Upcoming Encounters Date Type Department Care Team (Late st Contact Info) Description 08/04/2024 1:00 PM HAND FORMER Appointment [facility]nd [place] [address] [place] [address] Aviva Humphries MD [address] [place] [address] Infusion Chair 5, 2nd Floor [place] 08/25/2024 1:00 PM HAND FORMER Office Visit [facility] Gynecologic Oncology Hall [address] [place] [address] Edilia Pettit NP [address] [facility] [address] [place] [address] 08/25/2024 1:30 PM HAND FORMER Appointment Randy Proctor [facility] Infusion Center 2nd Fl [address] [place] [address] Aviva Humphries MD [address] [facility] [address] [place] [address] Infusion Chair 1, 2nd Floor [place] 09/01/2024 10:45 AM HAND FORMER Appointment Randy Proctor [facility] Nuclear Medicine [address] [place] [address] [id number] Edilia Pettit NP [address] [facility] [address] [place] [address] documented as of this encounter Visit Diagnoses Not on filedocumented in this encounter Administered Medications Inactive Administered Medications - up to 3 most recent administrations Medication Order MAR Action Action Date Dose Rate Site lactated ringers infusion IV, INTRA-PROCEDURE CONTINUOUS PRN, Starting on Thu05/25/23 at 0745, Until Thu05/25/23 at 1038, Routine, Anesthesia Intra-op New Bag 05/25/2023 7:45 AM CDT lidocaine (PF) (XYLOCAINE MPF) 60 mg/3 mL (2 %) injection syringe IV, INTRA-PROCEDURE PRN, Starting on Thu05/25/23 at 0956, Until Thu05/25/23 at 1038, Routine, Anesthesia Intra-op Given 05/25/2023 9:56 AM CDT 40 mg propofoL (DIPRIVAN) injection IV, INTRA-PROCEDURE CONTINUOUS PRN, Starting on Thu05/25/23 at 0956, Until Thu05/25/23 at 1038, Anesthesia Intra-op Rate Change 05/25/2023 10:25 AM CDT 50 mcg/kg/min 15.36 mL/hr Rate Change 05/25/2023 9:57 AM CDT 40 mcg/kg/min 12.288 mL /hr New Bag 05/25/2023 9:56 AM CDT 100 mcg/kg/min 30.72 mL/ hr documented in this encounter Care Teams Fire Safety Director Relationship Specialty Start Date End Date Shilo Soares MD [address] [place] [address] PCP - General Internal Medicine 04/24/23 documented as of this encounter
--- OUTSIDE RECORDS SUMMARY | 2024-07-27 00:05 | XMS_ITS | Encounter Summary ---
Author Organization [facility] [employer] Address [address] [place] [address] Care Team Providers Care Chief Medical Officer Name Role Phone Shilo Soares MD Primary Care Provider [phone] Encounter Details Date Type Department Care Team (Late Contact Info) Description 04/30/2023 Orders Only [facility] Oncology and Hematology - [place] [address] [facility] [address] [place] [address] Rober Carter MD [address] [facility] [address] [place] [address] Social History Tobacco Use Types Packs/Day Years Used Date Smoking Tobacco: Every Day Cigarettes 0.5 35 Smokeless Tobacco: Never Alcohol Use Standard Drinks/Week Comments Yes 0 (1 standard drink = 0.6 oz pur e alcohol) socially Sex and Gender Information Value Date Recorded Sex Assigned at Not on file Gender Identity Not on file Sexual Orientation Not on file documented as of this encounter Plan of Treatment Upcoming Encounters Date Type Department Care Team (Late Contact Info) Description 08/04/2024 1:00 PM HOME DAY CARE PROVIDER Appointment [facility] 2nd Fl [address] [place] [address] Aviva Humphries MD [address] [place] [address] Infusion Chair 5, 2nd Floor [place] 08/25/2024 1:00 PM HOME DAY CARE PROVIDER Office Visit [facility] Gynecologic Oncology Hall [address] [facility] [address] [place] [address] Edilia Pettit, CHELY [address] [place] [address] 08/25/2024 1:30 PM HOME DAY CARE PROVIDER Appointment Randy Hall [facility] Infusion Center 2nd Fl [address] [place] [phone] Aviva Humphries MD [address] [place] [address] Infusion Chair 1, 2nd Floor [place] 09/01/2024 10:45 AM HOME DAY CARE PROVIDER Appointment [facility] Nuclear Medicine [address] [place] [phone] Edilia Pettit, CHELY [address] [facility] [address] [place] [address] documented as of this encounter Procedures Procedure Name Priority Date/Time Associated Diagnosis Comments COMPREHENSIVE METABOLIC PANEL Routine 04/29/2023 9:46 AM CDT documented in this encounter Results * COMPREHENSIVE METABOLIC PANEL (04/29/2023 9:46 AM CDT) Blood Rober Carter MD CHEMISTRY ORDERABLES documented in this encounter Visit Diagnoses Not on filedocumented in this encounter Care Teams Chief Medical Officer Relationship Specialty Start Date End Date Shilo Soares MD [address] [place] [id number] PCP - General Internal Medicine 04/24/23 documented as of this encounter
--- OUTSIDE RECORDS SUMMARY | 2024-07-27 00:05 | XMS_ITS | Encounter Summary ---
Author Organization [facility] Address [address] [place] [address] Care Team Providers Care Health Informatics Specialist Name Role Phone Shilo Soares MD Primary Care Provider [phone] Encounter Details Date Type Department Care Team (Late Contact Info) Description 05/29/2023 Abstract [facility] Gynecologic Oncology [address] [place] [address] Barb Hyde MD [address] [place] [address] Social History Tobacco Use Types [...] (Late Contact Info) Description 08/04/2024 1:00 PM BLOCK CLEANER Appointment [facility] 2nd Fl [address] [place] [address] Aviva Humphries MD [address] [place] [address] Infusion Chair 5, 2nd Floor [place] 08/25/2024 1:00 PM BLOCK CLEANER Office Visit [facility] Gynecologic Oncology Hall [address] [place] [address] Edilia Pettit, CHELY [address] [facility] [address] [place] [address] 08/25/2024 1:30 PM BLOCK CLEANER Appointment [facility] 2nd Fl [address] [place] [place] [address] Aviva Humphries MD [address] [place] [address] Infusion Chair 1, 2nd Floor [place] 09/01/2024 10:45 AM BLOCK CLEANER Appointment Randy Hall [facility] Nuclear Medicine [address] [place] [address] [id number] Edilia Pettit, CHELY [address] [facility] [address] [place] [address] documented as of this encounter Visit Diagnoses Not on filedocumented in this encounter Care Teams Health Informatics Specialist Relationship Specialty Start Date End Date Shilo Soares MD [address] [place] [address] PCP - General Internal Medicine 04/24/23 documented as of this encounter
--- OUTSIDE RECORDS SUMMARY | 2024-07-27 00:05 | XMS_ITS | Encounter Summary ---
Author Organization [facility] [employer] Address [address] [place] [address] Care Team Providers Care Wheat Farmer Name Role Phone Shilo Soares MD Primary Care Provider [phone] Encounter Details Date Type Department Care Team (Late Contact Info) Description 05/18/2023 Orders Only [facility] Oncology and Hematology - [place] [address] [facility] [address] [place] [address] Rober Carter MD [address] [facility] [address] [place] [address] Malignant neoplasm of ovary, unspecified laterality (Primary Dx); Malignant ascites Social History Tobacco Use Types Packs/Day Years [...] (Late Contact Info) Description 08/04/2024 1:00 PM CIGARETTE CATCHER Appointment [facility] Center 2nd Pr [address] [place] [address] Aviva Humphries MD [address] [place] [address] Infusion Chair 5, 2nd Floor Hall 08/25/2024 1:00 PM CIGARETTE CATCHER Office Visit [facility] Gynecologic Oncology Hall [address] [place] [address] Edilia Pettit, CHELY [address] [facility] [address] [place] [address] 08/25/2024 1:30 PM CIGARETTE CATCHER Appointment Randy [facility] Infusion Center 2nd Pr [address] [place] [address] Aviva Humphries MD [address] [facility] [address] [place] [address] Infusion Chair 1, 2nd Floor [place] 09/01/2024 10:45 AM CIGARETTE CATCHER Appointment Randy Proctor [facility] Nuclear Medicine [address] [place] [address] [id number] Edilia Pettit, CHELY [address] [facility] [address] [place] [address] documented as of this encounter Visit Diagnoses Diagnosis Malignant neoplasm of ovary, unspecified laterality- Primary Malignant ascites documented in this encounter Care Teams Wheat Farmer Relationship Specialty Start Date End Date Shilo Soares MD [address] [place] [address] PCP - General Internal Medicine 04/24/23 documented as of this encounter
--- OUTSIDE RECORDS SUMMARY | 2024-07-27 00:05 | XMS_ITS | Encounter Summary ---
Author Organization [facility] [email or web address] Address [address] [place] [address] Care Team Providers Care Land Leases And Rentals Manager Name Role Phone Shilo Soares MD Primary Care Provider [phone] Encounter Details Date Type Department Care Team (Late Contact Info) Description 04/27/2023 Orders Only [facility] Oncology and Hematology - [place] [address] [facility] [address] [place] [address] Rober Carter MD [address] [facility] [address] [place] [address] Malignant ascites (Primary Dx) Social History Tobacco Use Types [...] (Late Contact Info) Description 08/04/2024 1:00 PM LEARNING AND DEVELOPMENT DIRECTOR Appointment [facility] 2nd Fl [address] [place] [address] Aviva Humphries MD [address] [place] [address] Infusion Chair 5, 2nd Floor [place] 08/25/2024 1:00 PM LEARNING AND DEVELOPMENT DIRECTOR Office Visit [facility] Gynecologic Oncology Hall [address] [place] [address] Edilia Pettit, CHELY [address] [place] [address] 08/25/2024 1:30 PM LEARNING AND DEVELOPMENT DIRECTOR Appointment [facility] 2nd Fl [address] [place] [address] Aviva Humphries MD [address] [place] [address] Infusion Chair 1, 2nd Floor [place] 09/01/2024 10:45 AM LEARNING AND DEVELOPMENT DIRECTOR Appointment Randy [facility] Nuclear Medicine [address] [place] [address] [id number] Edilia Pettit, CHELY [address] [facility] [address] [place] [address] documented as of this encounter Procedures Procedure Name Priority Date/Time Associated Diagnosis Comments COMPREHENSIVE METABOLIC PANEL Routine 04/24/2023 12:58 PM CDT documented in this encounter Results * COMPREHENSIVE METABOLIC PANEL (04/24/2023 12:58 PM CDT) Blood Rober Carter MD CHEMISTRY ORDERABLES documented in this encounter Visit Diagnoses Diagnosis Malignant ascites- Primary documented in this encounter Care Teams Land Leases And Rentals Manager Relationship Specialty Start Date End Date Shilo Soares MD [address] [place] [address] PCP - General Internal Medicine 04/24/23 documented as of this encounter
--- OUTSIDE RECORDS SUMMARY | 2024-07-27 00:05 | XMS_ITS | Encounter Summary ---
Author Organization [facility] Address [address] [place] [address] Care Team Providers Care Traffic Court Referee Name Role Phone Shilo Soares MD Primary Care Provider [phone] Reason for Visit * Reason Comments Establish Care Nurse navigation Encounter Details Date Type Department Care Team ([facility] st Contact Info) Description 05/29/2023 Chart Note [facility] Oncology Patient Navigation [address] [place] [address] Danyell Pablo, RN Establish Care (Nurse navigation ) Social History Tobacco Use [...] Notes * Danyell Pablo, RN - 06/02/2023 10:44 AM CDT Cancer Care Services Note: Met with Narda and her daughter Ewa to conduct patient needs assessment and discuss resources available through the cancer center and community. Reviewed role of nurse navigator and encouraged to reach out at any time with questions or concerns. Provided with folder and contact information. Narda was diagnosed with ovarian cancer. Port was placed on 05/25. She is getting carboplatin, taxol, and bevacizumab. Support System: Narda reports having a good support system of her children, family, friends. She has a dog named Wendy. She enjoys reading and volunteering. She works for [employer] and plans to continue to work during treatment if possible. Reviewed support available through [facility], [facility], [employer], and counseling offered with Dr. Soell. Financial: Reviewed Social Work availability for financial concerns. Denies any concerns at this time. Medications: Handouts given and reviewed on side effect management, infection prevention, meditation. [facility] Chemotherapy and You packet provided and discussed. Has available medications at home for pain, nausea, and bowel regimen. She is currently having difficulty with constipation. Review use of meds and encouraged to call clinic if needed. Nutrition: Discussed importance of nutrition and hydration during treatment. Reviewed flight communications specialist services available and general nutrition in packet. Encouraged referral to Keith wyman for meal support which she would like. Will place referral. Spiritual: Shared services available through [facility] including completion of Advanced Directives. Transportation: Reviewed transportation assistance available if needed. Other: Hair loss information and ACS catalog provided. Review smoking cessation resources available. Education done on Palliative Care resources if needed at any time during treatment. [facility] sister box provided. Referrals made: Keith Wyman Next steps: Will f/u on Friday 06/01 for post treatment check in and continue to assist as needed. Danyell Pablo RN, MSN Oncology Nurse Navigator documented in this encounter Plan of Treatment Upcoming Encounters Date Type Department Care Team (Late st Contact Info) Description 08/04/2024 1:00 PM ELECTRIC OPERATOR Appointment Randy [facility] Infusion Center 2nd Ak [address] [place] [address] Aviva Humphreis MD [address] [facility] [address] [facility] [place] [address] Infusion Chair 5, 2nd Floor [place] 08/25/2024 1:00 PM ELECTRIC OPERATOR Office Visit [facility] Gynecologic Oncology Hall [address] [facility] [address] [facility] [place] [address] Edilia Pettit NP [address] [facility] [address] [facility] [place] [address] 08/25/2024 1:30 PM ELECTRIC OPERATOR Appointment Randy [facility] Infusion Center 2nd Fl [address] [place] [address] Aviva Humphries MD [address] [facility] [address] [place] [address] Infusion Chair 1, 2nd Floor [place] 09/01/2024 10:45 AM ELECTRIC OPERATOR Appointment [facility] Nuclear Medicine [address] [place] [address] [id number] Edilia Pettit, CHELY [address] [facility] [address] [place] [address] documented as of this encounter Visit Diagnoses Not on filedocumented in this encounter Care Teams Traffic Court Referee Relationship Specialty Start Date End Date Shilo Soares MD [address] [place] [address] PCP - General Internal Medicine 04/24/23 documented as of this encounter
--- OUTSIDE RECORDS SUMMARY | 2024-07-27 00:05 | XMS_ITS | Encounter Summary ---
Author Organization [facility] Address [address] [place] [address] Care Team Providers Care Company Dancer Name Role Phone Shilo Soares MD Primary Care Provider [phone] Reason for Visit * Reason Onset Date Comments Chemotherapy 05/18/2023 Encounter Details Date Type Department Care Team (Late st Contact Info) Description 05/18/2023 Telephone [facility] Gynecologic Oncology [address] [place] [address] Aviva Humphries MD [address] [place] [address] Chemotherapy Social History Tobacco Use [...] Telephone Encounter - Stevie Chavarria RN - 05/18/2023 3:22 PM CDT Patient called stating she would be waiting too long to start chemotherapy with Dr. Carter. Called Dr. Cast office to verify. Per Dr. Cast nurse patient can get chemotherapy then have port placement. They are awaiting insurance approval prior to starting chemo. Let patient know of this and patient wants to do chemo here. Scheduled patient on 05/22 for chemo teaching over the phone since she works then on 05/28 for chemo. Told patient based on insurance approval we can start chemo or we may have to postpone until we have the approval. Patient voiced understanding. documented in this encounter Plan of Treatment Upcoming Encounters Date Type Department Care Team (Late st Contact Info) Description 08/04/2024 1:00 PM PROJECT ANALYST Appointment Randy Proctor [facility] 2nd Ar [address] [place] [address] Aviva Humphries MD [address] [facility] [address] [place] [address] Infusion Chair 5, 2nd Floor [place] 08/25/2024 1:00 PM PROJECT ANALYST Office Visit [facility]3] Gynecologic Oncology [place] [address] [facility] [address] [place] [address] Edilia Pettit, CHELY [address] [address] 08/25/2024 1:30 PM PROJECT ANALYST Appointment [facility] Center 2nd Fl [address] [place] [address] Aviva Humphries MD [address] [facility] [address] [facility] [place] [address] Infusion Chair 1, 2nd Floor [place] 09/01/2024 10:45 AM PROJECT ANALYST Appointment [facility] Nuclear Medicine [address] [place] [address] [id number] Edilia Pettit, CHELY [address] [address] documented as of this encounter Visit Diagnoses Not on filedocumented in this encounter Care Teams Company Dancer Relationship Specialty Start Date End Date Shilo Soares MD [address] [place] [address] PCP - General Internal Medicine 04/24/23 documented as of this encounter
--- OUTSIDE RECORDS SUMMARY | 2024-07-27 00:05 | XMS_ITS | Encounter Summary ---
Author Organization [facility] [employer] Address [address] [place] [address] Care Team Providers Care Poacher Operator Name Role Phone Shilo Soares MD Primary Care Provider [phone] Encounter Details Date Type Department Care Team (Late Contact Info) Description 05/11/2023 Orders Only [facility] Oncology and Hematology - [place] [address] [facility] [address] [place] [address] Rober Carter MD [address] [facility] [address] [place] [address] Social History Tobacco Use Types [...] (Late Contact Info) Description 08/04/2024 1:00 PM ETCHER PHOTOENGRAVING Appointment [facility] Center 2nd Fl [address] [place] [address] Aviva Humphries MD [address] [place] [address] Infusion Chair 5, 2nd Floor [place] 08/25/2024 1:00 PM ETCHER PHOTOENGRAVING Office Visit [facility] Gynecologic Oncology Hall [address] [facility] [facility] [address] [place] [address] Edilia Pettit, CHELY [address] [facility] [address] [place] [address] 08/25/2024 1:30 PM ETCHER PHOTOENGRAVING Appointment Randy Hall Cancer [facility] Infusion Center 2nd Fl [address] [place] [address] Aviva Humphries MD [address] [place] [address] Infusion Chair 1, 2nd Floor [place] 09/01/2024 10:45 AM ETCHER PHOTOENGRAVING Appointment Randy Proctor [facility] Nuclear Medicine [address] [place] [address] [id number] Edilia Pettit, CHELY [address] [facility] [address] [place] [address] documented as of this encounter Procedures Procedure Name Priority Date/Time Associated Diagnosis Comments BIOPSY Routine 05/06/2023 10:39 AM CDT documented in this encounter Results * BIOPSY (05/06/2023 10:39 AM CDT) Rober Carter MD PROCEDURE/MINOR SURG ICAL ORDERABLES documented in this encounter Visit Diagnoses Not on filedocumented in this encounter Care Teams Poacher Operator Relationship Specialty Start Date End Date Shilo Soares MD [address] [place] [address] PCP - General Internal Medicine 04/24/23 documented as of this encounter
--- OUTSIDE RECORDS SUMMARY | 2024-07-27 00:05 | XMS_ITS | Encounter Summary ---
Author Organization [facility] Address [address] [place] [address] Care Team Providers Care Instructor Physical Name Role Phone Shilo Soares MD Primary Care Provider [phone] Reason for Visit * Reason Onset Date Comments symptoms 06/01/2023 Encounter Details Date Type Department Care Team (Late Contact Info) Description 06/01/2023 Telephone [facility] Gynecologic Oncology [address] [place] [address] Aviva Humphries MD [address] [place] [address] symptoms Social History Tobacco Use [...] Encounter - Stevie Chavarria RN - 06/01/2023 9:26 AM CDT Attempted to call patient in regards to voicemail. No answer, Left V/M. documented in this encounter Plan of Treatment Upcoming Encounters Date Type Department Care Team (Late Contact Info) Description 08/04/2024 1:00 PM GENERATOR TECHNICIAN Appointment Randy Hall [address] [place] [address] Aviva Humphries MD [address] [place] [address] Infusion Chair 5, 2nd Floor [place] 08/25/2024 1:00 PM GENERATOR TECHNICIAN Office Visit [facility] Gynecologic Oncology Hall [address] [place] [address] Edilia Pettit NP [address] [facility] [address] [place] [address] 08/25/2024 1:30 PM GENERATOR TECHNICIAN Appointment Randy [facility] [address] [place] [address] Aviva Humphries MD [address] [place] [address] Infusion Chair 1, 2nd [facility] 09/01/2024 10:45 AM GENERATOR TECHNICIAN Appointment Randy Proctor [facility] Nuclear Medicine [address] [place] [address] [id number] Edilia Pettit, CHELY [address] [facility] [address] [place] [address] documented as of this encounter Visit Diagnoses Not on filedocumented in this encounter Care Teams Instructor Physical Relationship Specialty Start Date End Date Shilo Soares MD [address] [place] [address] PCP - General Internal Medicine 04/24/23 documented as of this encounter
--- OUTSIDE RECORDS SUMMARY | 2024-07-27 00:05 | XMS_ITS | Encounter Summary ---
Author Organization [facility] Address [address] [place] [address] Care Team Providers Care Water Pollution Scientist Name Role Phone Shilo Soares MD Primary Care Provider [phone] Reason for Referral * Eval and Treat (Routine) - Closed Specialty Diagnoses / Procedures Referred By Alison t Referred To Contact Surgery Diagnoses Malignant neoplasm of ovary, unspecified laterality Procedures OR OFFICE/OUTPATIENT ESTABLISHED MOD MDM 30-39 MIN OR OFFICE/OUTPATIENT NEW MODERATE MDM 45-59 MINUTES Rober Carter MD [facility] [place] [phone] Alfredo Longo, [address] [facility] [address] [place] [address] Referral ID Status Reason Start Date Expiration Date V isits Requested Visits Authorized [id number] Closed STL CTS 05/18/2023 05/17/2024 1 1 * Eval and Treat (Routine) - Closed Specialty Diagnoses / Procedures Referred By Contac t Referred To Contact Oncology Diagnoses Malignant neoplasm of ovary, unspecified laterality Procedures OR OFFICE/OUTPATIENT ESTABLISHED MOD MDM 30-39 MIN OR OFFICE/OUTPATIENT NEW MODERATE MDM 45-59 MINUTES Rober Carter MD [address] [employer] [address] [place] [phone] Referral ID Status Reason Start Date Expiration Date V isits Requested Visits Authorized [id number] Closed STL CTS 05/18/2023 05/18/2024 1 1 Reason for Visit * Reason Comments Cancer Encounter Details Date Type Department Care Team (Late st Contact Info) Description 05/18/2023 1:15 PM CDT Office Visit [facility] Oncology and Hematology - [place] [address] [facility] [address] [place] [address] Rober Carter MD [address] [facility] [address] [place] [address] Malignant neoplasm of ovary, unspecified [...] Sign Reading Time Taken Comments Blood Pressure 106/53 05/18/2023 1:26 PM CDT Pulse 92 05/18/2023 1:26 PM CDT Temperature 37 ??C (98.6 ??F) 05/18/2023 1:26 PM CDT Respiratory Rate 16 05/18/2023 1:26 PM CDT Oxygen Saturation 99% 05/18/2023 1:26 PM CDT Inhaled Oxygen Concentration - - Weight 51.5 kg (113 lb 9.6 oz) 05/18/2023 1:26 P M CDT Height - - Body Mass Index 18.34 05/13/2023 1:17 PM CDT documented in this encounter Progress Notes * Rober Carter MD - 05/18/2023 2:54 PM CDT HEMATOLOGY / ONCOLOGY PROGRESS NOTE Patient Identification: Name: November Tiarra Age: 62 y.o. 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 CURRENT TREATMENT Expectant TREATMENT HISTORY SUBJECTIVE Patient came to the office for follow-up visit after inguinal lymph node biopsy and paracentesis was performed. She is complaining of abdominal distention with some discomfort. Denies any chest pain and shortness of breath. No other new complaints. Review of system Constitutional: Patient did not mention fevers, sweats, fatigue, malaise, weight loss HEENT: Patient did not mention sinus congestion, hearing or vision problems Respiratory: Patient did not mention cough, dyspnea, wheeze Cardiovascular: Patient did not mention chest pain, exertional chest pressure/discomfort, nausea, syncope, shortness of breath GI: Patient did not mention constipation, diarrhea, dsyphagia, reflux symptoms, vomiting, melena complain of abdominal distention : Patient did not mention dysuria, frequency, incontinence, urgency Integumentary system: no lymphadenopathy, sweats, flushing Musculoskeletal: Patient not mention: myalgia, arthralgia Neurological: Patient did not mention blurry or disturbed vision, numbness/weakness, dizziness Skin: No lumps, bumps or rashes. Objective: Vital signs in last 24 hours: As per nursing note Exam: General appearance: alert, cooperative, no distress, appears stated age Head: normocephalic, without obvious abnormality, atraumatic Eyes: conjunctivae/corneas clear, EOM's intact Ears: normal external ear canals AU Nose: Nares normal. Septum midline. Mucosa normal. No drainage or sinus tenderness Throat: Lips, mucosa, and tongue normal. Teeth and gums normal Neck: supple, symmetrical, trachea midline. Lungs: clear to auscultation bilaterally Heart: regular rate and rhythm, S1, S2 normal, no murmur, click, rub or gallop Abdomen: soft, non-tender. Bowel sounds normal. No masses, No organomegaly, abdomen distended with ascites with positive fluid thrill Extremities: extremities normal, atraumatic, no cyanosis or edema Skin: Skin color, texture, turgor normal. 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 CT chest done on [place] 22 showed no evidence of metastatic disease. Paracentesis done on April 29 showed cytology positive for adenocarcinoma. Patient was seen by Dr. 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 Plan is to start neoadjuvantchemotherapy with carboplatin AUC of 5 along with Taxol 125 mg per metered square with Avastin 15 mg per metered square every 21 days for 3- 4 cycles with serial monitoring of CA125. Subsequent debulking surgery will be done. We will hold Avastin 1 cycle prior to this planned surgery. She will also receive adjuvant chemotherapy and then maintenance treatment with Avastin. Patient will be referred for Mediport placement and chemotherapy teaching. I have personally discussed the side effects of chemotherapy in detail. Malignant ascites. She will be referred for paracentesis. Follow-up with me in 4 to 5 weeks with cycle 2 of chemotherapy. ? TOBACCO COUNSELING She is not a tobacco/nicotine user. 05/18/2023 Rober Carter MD documented in this encounter Plan of Treatment Upcoming Encounters Date Type Department Care Team (Late st Contact Info) Description 08/04/2024 1:00 PM POST ANESTHESIA NURSE Appointment Randy [facility] Infusion Center 2nd Fl [address] [place] [phone] Aviva Humphries MD [address] [facility] [place] [address] Infusion Chair 5, 2nd Floor Hall 08/25/2024 1:00 PM POST ANESTHESIA NURSE Office Visit [facility] Gynecologic Oncology Hall [address] [place] [address] Edilia Pettit NP [address] [place] [address] 08/25/2024 1:30 PM POST ANESTHESIA NURSE Appointment Randy Hall [facility] Infusion Center 2nd Fl [address] [place] [address] Aviva Humphries MD [address] [place] [address] Infusion Chair 1, 2nd Floor Rafael 09/01/2024 10:45 AM POST ANESTHESIA NURSE Appointment [facility] [address] [place] [phone] [id number] Edilia Pettit, CHELY [address] [facility] [address] [place] [address] Scheduled Referrals Name Type Priority Associated Diagnoses Orde r Schedule AMB REFERRAL TO CHEMO TEACHING Outpatient Referral Routine Malignant neoplasm of ovary, unspecified laterality Ordered: 05/18/2023 AMB REFERRAL TO COLORECTAL SURGERY Outpatient Referral Routine Malignant neoplasm of ovary, unspecified laterality Ordered: 05/18/2023 documented as of this encounter Visit Diagnoses Diagnosis Malignant neoplasm of ovary, unspecified laterality- Primary documented in this encounter Care Teams Water Pollution Scientist Relationship Specialty Start Date End Date Shilo Soares MD [address] [place] [phone] PCP - General Internal Medicine 04/24/23 documented as of this encounter
--- OUTSIDE RECORDS SUMMARY | 2024-07-27 00:05 | XMS_ITS | Encounter Summary ---
Author Organization [facility] Address [address] [place] [address] Care Team Providers Care Anesthetic Assistant Name Role Phone Shilo Soares MD Primary Care Provider [phone] Encounter Details Date Type Department Care Team (Late Contact Info) Description 05/28/2023 Orders Only [facility] Gynecologic Oncology [address] [employer] [facility] [address] [address] [place] [address] Aviva Humphries MD [address] [place] [address] Malignant neoplasm of ovary, unspecified [...] as of this encounter Miscellaneous Notes * Addendum Note - Christy Harrington RN - 05/28/2023 9:08 AM CDTAddended by: CHRISTY HARRINGTON on: 05/28/2023 09:08 AM Modules accepted: Orders documented in this encounter Plan of Treatment Upcoming Encounters Date Type Department Care Team (Late Contact Info) Description 08/04/2024 1:00 PM DIVERSIFIED CROPS FARMER Appointment Randy Hall [address] [place] [address] Aviva Humphries MD [address] [place] [address] Infusion Chair 5, 2nd Floor Hall 08/25/2024 1:00 PM DIVERSIFIED CROPS FARMER Office Visit [facility] Gynecologic Oncology Hall [address] [facility] [address] [facility] [address] [place] [address] Edilia Pettit, CHELY [address] [facility] [place] [address] 08/25/2024 1:30 PM DIVERSIFIED CROPS FARMER Appointment [facility] [address] [place] [address] Aviva Humphries MD [address] [facility] [address] [place] [address] Infusion Chair 1, 2nd Floor Hall 09/01/2024 10:45 AM DIVERSIFIED CROPS FARMER Appointment Randy Proctor [facility] Nuclear Medicine [address] [place] [address] [id number] Edilia Pettit, CHELY [address] [facility] [address] [place] [address] documented as of this encounter Results * URINALYSIS WITH REFLEX CULTURE (05/28/2023 10:39 AM CDT) COLOR UA Yellow Pale to Dark Yellow 05/28/2023 11:16 AM CDT [employer] [facility]ORAT[facility] SERVICES - [facility] CLARITY UA Clear Clear 05/28/2023 11:16 AM CDT [employer] LABORATORY SERVICES - [facility] SPECIFIC GRAVITY UA 1.005 1.003 - 1.035 05/28/2023 11:16 AM CDT [facility] LABORATORY SERVICES - [facility] PH UA 5.0 5.0 - 8.0 05/28/2023 11:16 AM CDT [facility] LABORATORY SERVICES - [facility] LEUKOCYTE ESTERASE UA Negative Negative 05/28/2023 11:16 AM CDT [facility] LABORATORY [facility] NITRITE UA Negative Negative 05/28/2023 11:16 AM CDT [facility] LABORATORY [facility] PROTEIN UA Negative Negative 05/28/2023 11:16 AM CDT [facility] GLUCOSE UA Negative Negative 05/28/2023 11:16 AM CDT [facility] [employer] [facility] KETONES UA Negative Negative 05/28/2023 11:16 AM CDT [facility] LABORATORY [facility] UROBILINOGEN UA Normal <2.0 mg/dL 11:16 AM CDT [facility] LABORATORY [facility] BILIRUBIN UA Negative Negative 05/28/2023 11:16 AM CDT [facility] [employer] [facility] - [facility] BLOOD UA Negative Negative 05/28/2023 11:16 AM T [facility] [employer] [facility] - [facility] Urine URINE SPECIMEN OBTAINED BY CLEAN CATCH PROCEDURE / Unknown Collection / Unknown 05/28/2023 10:39 AM CDT 05/28/2023 10:56 AM CDT Aviva Humphries MD URINE ORDERABLES [facility]# [id number] [address] [place] [address] * (ABNORMAL) CANCER ANTIGEN 125 (05/28/2023 7:30 AM CDT) CA 125 304.0(H) <35.0 U/mL 05/28/2023 9:[address] [facility] Blood Collection / Unknown 05/28/2023 7:30 AM CDT 05/28/2023 7:[address] [facility] - 05/28/2023 9:38 AM CDT The [...] during . Aviva Humphries MD CHEMISTRY ORDERABLES [facility] LABORATORY SERVICES [facility]# [id number] [address] [facility] [place] [address] documented in this encounter Visit Diagnoses Diagnosis Malignant neoplasm of ovary, unspecified laterality- Primary documented in this encounter Care Teams Anesthetic Assistant Relationship Specialty Start Date End Date Shilo Soares MD [address] [place] [address] PCP - General Internal Medicine 04/24/23 documented as of this encounter
--- OUTSIDE RECORDS SUMMARY | 2024-07-27 00:05 | XMS_ITS | Encounter Summary ---
Author Organization [facility] Address [address] [place] [address] Care Team Providers Care Braider Operator Name Role Phone Shilo Soares MD Primary Care Provider [phone] Reason for Visit * Reason Comments Establish Care Malignant neoplasm o f ovary * Eval and Treat (Routine) - Closed Specialty Diagnoses / Procedures Referred By Contac t Referred To Contact Gynecologic Oncology Diagnoses Malignant neoplasm of ovary, unspecified laterality Procedures MT OFFICE/OUTPATIENT ESTABLISHED MOD MDM 30-39 MIN MT OFFICE/OUTPATIENT NEW MODERATE MDM 45-59 MINUTES Rober Carter MD [facility] [address] [place] [address] [place] [address] [place] [address] Referral ID Status Reason Start Date Expiration Date Visits Re quested Visits Authorized [id number] Closed 04/24/2023 04/23/2024 1 1 Encounter Details Date Type Department Care Team (Late st Contact Info) Description 05/13/2023 1:30 PM CDT Office Visit [facility] Gynecologic Oncology [address] [place] [address] Aviva Humphries MD [address] [facility] [address] [place] [address] Malignant neoplasm of ovary, unspecified [...] Sign Reading Time Taken Comments Blood Pressure 120/84 05/13/2023 1:17 PM CDT Pulse 88 05/13/2023 1:17 PM CDT Temperature 36 ??C (96.8 ??F) 05/13/2023 1:17 PM CDT Respiratory Rate - - Oxygen Saturation 87% 05/13/2023 1:17 PM CDT Inhaled Oxygen Concentration - - Weight 51.5 kg (113 lb 9.6 oz) 05/13/2023 1:17 P M CDT Height 167.6 cm (5' 6 ) 05/13/2023 1:17 PM CDT Body Mass Index 18.34 05/13/2023 1:17 PM CDT documented in this encounter Progress Notes * Aviva Humphries MD - 05/13/2023 1:30 PM CDT Images from the original note were not included. [facility] GYNECOLOGIC ONCOLOGY OFFICE VISIT 05/13/2023November Tiarra REFERRING PROVIDER: Rober Lacy MD PRIMARY CARE PROVIDER: Shilo Harley MD NEW PATIENT VISIT Cancer Staging Ovarian cancer Staging form: Ovary, Fallopian Tube, and Primary Peritoneal Carcinoma, AJCC 8th Edition - Clinical stage from 05/13/2023: FIGO Stage IVB - Signed by Aviva Humphries MD on 05/13/2023 Oncology History: 03/2023 presented to [place] ED with abdominal distension; CT showed 11.6cm [...] Port: No; desires to use PIV NGS: Not yet done IHC: from cytology specimen Genetics: not yet [...] ordered additional work up and referred to document control supervisor oncology. CT chest did not show metastatic [...] of fluid) No urinary issues. No bleeding. No results found for: CA125 She denies any pain. Denies urinary symptoms. Denies vaginal bleeding. Appropriate energy level. Review of Systems Constitutional: Positive for weight [...] reviewed and are negative. Pertinent imaging studies: 05/01/23 CT Chest 04/16/23 CTAP Pathology/Histology/Cytology results: 04/29/23 Paracentesis AWAITING [facility] REVIEW OF INGUINAL LYMPH NODE BIOPSY; REPORT ON PHONE SHOWS METASTATIC CARCINOMA MULLERIAN FAVOR HIGH GRADE SEROUS OVARIAN Past Medical History: Diagnosis Date Asthma Emphysema of lung Hyperlipidemia Past Surgical History: Procedure Laterality Date HX BUNIONECTOMY Bilateral 2009 HX SECTION 1982,1985,1994 Allergies Allergen Reactions Penicillins Rash Ciprofloxacin Rash Current Outpatient Medications: albuterol sulfate HFA 90 mcg/actuation aerosol inhaler, Take 1 Puff by inhalation every 6 hours as needed., Disp: , Rfl: atorvastatin (LIPITOR) 20 mg tablet, Take 20 mg by mouth daily at bedtime., Disp: , Rfl: cetirizine (ZyrTEC) 10 mg tablet, Take 10 mg by mouth 2 times daily., Disp: , Rfl: fluticasone propionate (FLONASE) 50 mcg/spray Sophia, Suspension nasal inhaler, Administer 2 Sprays in each nostril daily., Disp: , Rfl: omega-3 fatty acids-fish oil 300-1,000 mg Capsule, Take 2 Capsules by mouth daily., Disp: , Rfl: FAMILY HISTORY: Cancer-related family history includes Lung Cancer in her father. No uterine, cervix, ovarian, breast or colon cancer OBHx: OB History No obstetric history on file. ; x3 EQUIP TECH HISTORY: Abnml Pap: denies Menopause: 54ish; no bleeding Social: Social History Tobacco Use Smoking Status Every Day Packs/day: 0.50 Years: 35.00 Additional pack years: 0.00 Total pack years: 17.50 Types: Cigarettes Smokeless Tobacco Never TOBACCO COUNSELING She was counseled to discontinue tobacco/nicotine use. Down to half pack per day. 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 BP 120/84 (BP Location: Left arm, Patient Position (BP): Sitting, BP Cuff Size: Adult) Pulse 88 Temp 96.8 ??F (36 ??C) (Oral) Ht 5' 6 (1.676 m) Wt 51.5 kg (113 lb 9.6 oz) SpO2 (!) 87% BMI 18.34 kg/m?? ECOG PS: 0 HEAD: Normocephalic, atraumatic. EYES: Conjunctivae and lids were normal. RESPIRATORY: Normal respiratory effort. CARDIOVASCULAR: No lower extremity varicosities were noted. No peripheral edema noted. ABDOMEN: Soft, non-tender, no masses, no evidence of hernias. Low transverse scars well healed. Abdominal distension with fluid wave LYMPHATICS: R inguinal lymphadenopathy palpable--firm, somewhat mobile; 2.-3cm in size. No cervicallymphadenopathy palpated. MUSCULOSKELETAL: The upper and lower extremities had full range of movement and had equal muscle strength. SKIN: No rashes, lesions, or subcutaneous nodules noted. NEUROLOGIC: Cranial nerves were grossly intact. MENTAL STATUS: Affect was appropriate. PELVIC EXAM: VULVA: normal external genitalia, no vulvar lesions, RV septum clear, normal anal opening VAGINA: normal vaginal mucosa, no lesions CERVIX: grossly normal, palpation normal UTERUS: indistinguishable from pelvic mass ADNEXA: mass palpable in the posterior cul-de-sac, fixed, fluid palpable in abdomen PRESCRIPTIONS WRITTEN THIS VISIT: Requested Prescriptions No prescriptions requested or ordered in this encounter ASSESSMENT and PLAN: 1. 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 She presents today as a referral from Dr. Carter to establish care. I have reviewed previous ED documentation, labs, and imaging results in detail. I have reviewed hercytology and note from Dr. Carter. We discussed that treatment of advanced epithelial ovarian cancer consists of chemotherapy and surgical debulking, the order of which depends on the patient's fitness for primary surgery and overall disease burden. From a medical standpoint she would be appropriate for upfront debulking surgery. From a disease burden standpoint, I do not have a reasonable expectation of complete debulking based on the fact that she has pathologically proven inguinal lymph node involvement. It is my recommendation that she receive NACT (3-4 cycles pending response), followed by debulking surgery and completionof adjuvant chemotherapy (another 3-4 cycles). Given her large volume of ascites will plan NACT with carboplatin AUC 5 + paclitaxel 175mg/m2 + bevacizumab 15mg/m2 q21 days. We will plan to hold bevacizumab for 1 cycle before and and debulking surgery. At time of surgery at a minimum, a DANETTE BSO, complete omentectomy will be performed as well as any indicated procedure for maximal tumor debulking with goal of R0-1. We reviewed expected side effects from this regimen which include: hair loss, peripheral neuropathy, n/v, fatigue, ache like pain, constipation/diarrhea, pancytopenia, electrolyte disturbances, headaches, blood clots, elevated blood pressure, proteinuria. Chemocare information provided. She prefers to not have a port for treatment but understands she may need as time goes by. She would like to start treatment as soon as possible. Prefers treatment closer to her house if we are able to arrange--would need to come here for surgery. May need additional paracentesis for comfort. Will see if chemotherapy can be done closer to her home with Dr. Carter Suggested regimen: carboplatin AUC 5 + paclitaxel 175mg/m2 + bevacizumab 15mg/m2 q21 days Plan 3-4 cycles pending response; will follow CA-125 as it is significantly elevated; can follow inguinal lymphadenopathy on exam as it was palpable today Can consider repeat imaging prior to debulking surgery; will hold bevacizumab iveth-operatively Need to review inguinal lymph node biopsy here at [facility] Will send [facility] testing from this specimen if able; if not, will plan to do from resection specimen Consider genetic referral if no actionable targets found through [employer] Will plan to continue bevacizumab as maintenance after completion of primary therapy Will need to sign chemo consents Referral to IR for paracentesis for comfort if needed Return to clinic: with initiation of chemotherapy or after 2-3 cycles if done with Dr. Carter for surgical planning Thank you for involving [facility] Gynecologic Oncology in the care of this patient. Aviva Humphries MD documented in this encounter Miscellaneous Notes * Addendum Note - Christy Harrington, RN - 05/14/2023 10:05 AM CDTAddended by: CHRISTY HARRINGTON on: 05/14/2023 10:05 AM Modules accepted: Orders documented in this encounter Plan of Treatment Upcoming Encounters Date Type Department Care Team (Late st Contact Info) Description 08/04/2024 1:00 PM DIVING FISHER Appointment [facility] [address]nd [address] [place] [address] Aviva Humphries MD [address] [place] [address] Infusion Chair 5, 2nd Floor Hall 08/25/2024 1:00 PM DIVING FISHER Office Visit [facility] Gynecologic Oncology Hall [address] [place] [address] Edilia Pettit, CHELY [address] [facility] [address] [place] [address] 08/25/2024 1:30 PM DIVING FISHER Appointment Randy Hall [facility] Infusion Center [address]nd [address] [place] [address] Aviva Humphries MD [address] [facility] [address] [place] [address] Infusion Chair 1, 2nd Floor [address] 09/01/2024 10:45 AM DIVING FISHER Appointment Randy [facility]ctor Hall [facility] Nuclear Medicine [address] [place] [phone] [id number] Edilia Pettit, CHELY [address] [facility] [address] [place] [address] documented as of this encounter Visit Diagnoses Diagnosis Malignant neoplasm of ovary, unspecified laterality- Primary documented in this encounter Care Teams Braider Operator Relationship Specialty Start Date End Date Shilo Soares MD [address] [place] [address] PCP - General Internal Medicine 04/24/23 documented as of this encounter
--- OUTSIDE RECORDS SUMMARY | 2024-07-27 00:05 | XMS_ITS | Encounter Summary ---
Author Organization [facility] Address [address] [place] [address] Care Team Providers Care Manager Water Name Role Phone Shilo Soares MD Primary Care Provider [phone] Encounter Details Date Type Department Care Team (Late Contact Info) Description 05/29/2023 Abstract [facility] Gynecologic Oncology [address] [place] [address] Aviva Humphries MD [address] [place] [address] Social History Tobacco Use Types [...] (Late Contact Info) Description 08/04/2024 1:00 PM ESTERS AND EMULSIFIERS SUPERVISOR Appointment [facility] 2nd Fl [address] [place] [address] Aviva Humphries MD [address] [place] [address] Infusion Chair 5, 2nd Floor [place] 08/25/2024 1:00 PM ESTERS AND EMULSIFIERS SUPERVISOR Office Visit [facility] Gynecologic Oncology Hall [address] [place] [address] Edilia Pettit NP [address] [facility] [address] [place] [address] 08/25/2024 1:30 PM ESTERS AND EMULSIFIERS SUPERVISOR Appointment [facility] 2nd Fl [address] [address] Aviva Humphries MD [address] [place] [address] Infusion Chair 1, 2nd Floor [place] 09/01/2024 10:45 AM ESTERS AND EMULSIFIERS SUPERVISOR Appointment Randy [facility] Nuclear Medicine [address] [place] [address] [id number] Edilia Pettit, CHELY [address] [facility] [address] [place] [address] documented as of this encounter Visit Diagnoses Not on filedocumented in this encounter Care Teams Manager Water Relationship Specialty Start Date End Date Shilo Soares MD [address] [facility] 2 [place] [address] PCP - General Internal Medicine 04/24/23 documented as of this encounter
--- OUTSIDE RECORDS SUMMARY | 2024-07-27 00:05 | XMS_ITS | Encounter Summary ---
Author Organization [facility] Address [address] [place] [address] Care Team Providers Care Chicken Hatchery Helper Name Role Phone Shilo Soares MD Primary Care Provider [phone] Encounter Details Date Type Department Care Team (Late Contact Info) Description 05/22/2023 Orders Only [facility] Oncology and Hematology - [place] [address] [facility] [address] [place] [address] Rober Carter MD [address] [facility] [address] [place] [address] Social History Tobacco Use Types [...] 2nd Fl [address] [place] [address] Aviva Humphries MD [address] [place] [address] Infusion Chair 5, 2nd Floor [place] 08/25/2024 1:00 PM ADMINISTRATIVE SERVICES ASSISTANT Office Visit [facility] Gynecologic Oncology Hall [address] [facility] [address] [place] [address] Edilia Pettit, CHELY [address] [place] [address] 08/25/2024 1:30 PM ADMINISTRATIVE SERVICES ASSISTANT Appointment Randy [facility] Infusion Center 2nd Fl [address] [place] [address] Aviva Humphries MD [address] [place] [address] Infusion Chair 1, 2nd Floor Hall 09/01/2024 10:45 AM ADMINISTRATIVE SERVICES ASSISTANT Appointment Randy [facility]ctor Hall [facility] Nuclear Medicine [address] [place] [address] [id number] Edilia Pettit, CHELY [address] [address] [place] [address] documented as of this encounter Procedures Procedure Name Priority Date/Time Associated Diagnosis Comments PATHOLOGY REPORT Routine 05/06/2023 12:50 PM CDT documented in this encounter Results * PATHOLOGY REPORT (05/06/2023 12:50 PM CDT) Rober Carter MD PATHOLOGY/CYTOLOGY O RDERABLES documented in this encounter Visit Diagnoses Not on filedocumented in this encounter Care Teams Chicken Hatchery Helper Relationship Specialty Start Date End Date Shilo Soares MD [address] [place] [address] PCP - General Internal Medicine 04/24/23 documented as of this encounter
--- OUTSIDE RECORDS SUMMARY | 2024-07-27 00:05 | XMS_ITS | Encounter Summary ---
Author Organization [facility] Address [address] [place] [address] Care Team Providers Care Cost Analyst Name Role Phone Shilo Soares MD Primary Care Provider [phone] Encounter Details Date Type Department Care Team (Late Contact Info) Description 05/19/2023 Orders Only [facility] Gynecologic Oncology [address] [place] [address] Aviva Humphries MD [address] [place] [address] Social History Tobacco Use Types [...] Contact Info) Description 08/04/2024 1:00 PM STORE PERSON Appointment [facility] 2nd Fl [address] [place] [address] Aviva Humphries MD [address] [place] [address] Infusion Chair 5, 2nd Floor [place] 08/25/2024 1:00 PM STORE PERSON Office Visit [facility] Gynecologic Oncology Hall [address] [place] [address] Edilia Pettit NP [address] [facility] [address] [place] [address] 08/25/2024 1:30 PM STORE PERSON Appointment [facility] 2nd Fl [address] [facility] [place] [address] Aviva Humphries MD [address] [place] [address] Infusion Chair 1, 2nd Floor [place] 09/01/2024 10:45 AM STORE PERSON Appointment Randy Hall [facility] Nuclear Medicine [address] [place] [address] [id number] Edilia Pettit, CHELY [address] [facility] [address] [place] [address] documented as of this encounter Visit Diagnoses Not on filedocumented in this encounter Care Teams Cost Analyst Relationship Specialty Start Date End Date Shilo Soares MD [address] [place] [address] PCP - General Internal Medicine 04/24/23 documented as of this encounter
--- OUTSIDE RECORDS SUMMARY | 2024-07-27 00:05 | XMS_ITS | Encounter Summary ---
Author Organization [facility] Address [address] [place] [address] Care Team Providers Care Cross Country/Track And Field Coach Name Role Phone Shilo Soares MD Primary Care Provider [phone] Encounter Details Date Type Department Care Team (Latest Contact Info) Description 05/13/2023 2:26 PM CDT - 05/13/2023 11:59 PM CDT Hospital Encounter [facility] Laboratory Services [address] [place] [address] Aviva Humphries MD [address] [place] [address] Discharge Disposition: Home or Self [...] Sig Dispensed Refills Start Date End Date albuterol sulfate HFA 90 mcg/actuation aerosol inhaler Take 1 Puff by inhalation every 6 hours as needed. 04/08/2021 atorvastatin (LIPITOR) 20 mg tablet Take 20 mg by mouth daily at bedtime. 02/26/2021 fluticasone propionate (FLONASE) 50 mcg/spray Mineral, Suspension nasal inhaler Administer 2 Sprays in each nostril daily. omega-3 fatty acids-fish oil 300-1,000 mg Capsule Take 2 Capsules by mouth daily. cetirizine (ZyrTEC) 10 mg tablet Take 10 mg by mouth 2 times daily. 07/22/2023 documented as of this encounter Plan of Treatment Upcoming Encounters Date Type Department Care Team (Late st Contact Info) Description 08/04/2024 1:00 PM CORPORATE DIRECTOR OF PHARMACY Appointment [facility] 2nd Fl [address] [place] [address] Aviva Humphries MD [address] [facility] [address] [place] [address] Infusion Chair 5, 2nd Floor Hall 08/25/2024 1:00 PM CORPORATE DIRECTOR OF PHARMACY Office Visit [facility] Gynecologic Oncology [place] [address] [facility] [address] [place] [address] Edilia Pettit, CHELY [address] [address] 08/25/2024 1:30 PM CORPORATE DIRECTOR OF PHARMACY Appointment Randy [facility] 2nd Fl [address] [place] [address] Aviva Humphries MD [address] [facility] [address] [facility] [place] [address] Infusion Chair 1, 2nd Floor Hall 09/01/2024 10:45 AM CORPORATE DIRECTOR OF PHARMACY Appointment [facility] Nuclear Medicine [address] [place] [address] [id number] Edilia Pettit, CHELY [address] [phone] documented as of this encounter Procedures Procedure Name Priority Date/Time Associated Diagnosis Comments PATHOLOGY Pathology 05/13/2023 2:37 PM CDT Encounter for consultation documented in this encounter Results * PATHOLOGY (05/13/2023 2:37 PM CDT) CASE REPORT Surgical Pathology Report ? Case: [id number] ? Authorizing Provider: ??Aviva Humphries MD ? Collected: ? 05/13/2023 02:37 PM ? Ordering Location: ? [place] ?? Received: ?05/14/2023 02:39 PM ? Services [address] ? Pathologist: ? Anna Jimenez, ? MD ? Specimen: ?Other, specify, 12 slides labeled [id number] ? 3 12:37 PM [address] [facility] Tribe [facility] FINAL DIAGNOSIS [place] [address] (OSC [id number]; 04/29/2023 and [id number]; 05/06/2023) [id number] Ascites fluid, cytologic examination: - CK7 positive adenocarcinoma. [id number] Lymph node, right inguinal, biopsy: - Metastatic carcinoma most compatible with high-grade serous carcinoma. See comment. 3 12:37 PM [facility] Tribe [facility] OSCOPIC DESCRIPTION Received are slides labeled [id number] and [id number] and NovemberKarely Tiarra. Microscopic examination of the [...] origin. Sections of the lymph node biopsy ([id number]) show cores of lymph node involved by [...] calretinin, and CEA. A small subset of tumor cells express CA 19-9. A subset of tumor cells show moderate to strong expression of GATA3, estrogen receptor, and TTF-1. The cytomorphology and immunophenotype are that of a high-grade adenocarcinoma of m??llerian origin; high-grade serous carcinoma is most compatible entity. p53 immunostaining is not performed/not reported. The reporting delay incurred by procurement of the surgical pathology material in addition to the cytology material was communicated to Dr. Humphries on 05/15/23. The availability of final results was communicated to Dr. Humphries on 05/26/23. 3 12:37 PM [facility] Tribe [facility] OPERATIVE PROCEDURE Paracentesis 3 12:37 PM [facility] CLINICAL INFORMATION Z71.9 - Encounter for consultation [ICD-10-CM] 3 12:37 PM T [facility] SUBMITTED BY Dr. Aviva Humphries, [address] [facility], [address], [place] [address]. [facility] Pathology Report 3 12:37 PM CDT [facility] MATERIAL RECEIVED Received are slides labeled Tiarra, November and [id number]; 2 cytospin slides, 1 H&E stained cell block, and 9 immunostains; and [id number], consisting of 2 H&E and 14 immunostains. These are derived from a paracentesis performed on April 29, 2023 and lymph node biopsy performed on May 06, 2023 as detailed in the accompanying cytopathology and surgical pathology reports. All material is returned. 3 12:37 PM T [facility] COMMENT Special stain, immunohistochemical, and/or in situ hybridization results are interpreted with controls that demonstrate appropriate staining reactions. Note on use of immunohistochemistry reagents and in situ hybridization probes: These tests were developed and their performance characteristics determined by [facility], Department of Laboratory Medicine. It [...] part or completely in the following laboratories: [facility], CLIA #[id number] [address] [place] [address] [facility], CLIA #[id number] [address] [place] [address] [facility], CLIA #[id number] [address] [place] [address] 3 12:37 PM CDT [facility] Tissue (Other, specify) 05/13/2023 2:37 PM CDT 05/14/2023 2:39 PM CDT Aviva Humphries MD PATHOLOGY/CYTOLOGY O RDERABLES [facility]# [id number] [address] [place] [address] documented in this encounter Visit Diagnoses Diagnosis Encounter for consultation- Primary Unspecified reason for consultation documented in this encounter Care Teams Cross Country/Track And Field Coach Relationship Specialty Start Date End Date Shilo Soares MD [address] [place] [address] PCP - General Internal Medicine 04/24/23 documented as of this encounter
--- OUTSIDE RECORDS SUMMARY | 2024-07-27 00:05 | XMS_ITS | Encounter Summary ---
Author Organization [facility] Address [address] [place] [address] Care Team Providers Care Petroleum Refining Firer Name Role Phone Shilo Soares MD Primary Care Provider [phone] Reason for Visit * Reason Onset Date Comments Chemotherapy 05/26/2023 Encounter Details Date Type Department Care Team (Late Contact Info) Description 05/26/2023 Telephone [facility] Gynecologic Oncology [address] [place] [address] Aviva Humphries MD [address] [place] [address] Chemotherapy Social History Tobacco Use [...] Telephone Encounter - Nae Harrington RN - 05/26/2023 9:33 AM CDT Pt called and states that when she got port placed yesterday and they had let her know chemo still not approved yet . Let her know I will F/U will with authorization department and call her back. Shevoiced understanding. documented in this encounter Plan of Treatment Upcoming Encounters Date Type Department Care Team (Late Contact Info) Description 08/04/2024 1:00 PM CLINIQUE COUNTER MANAGER Appointment Randy Hall [facility] Infusion Center 2nd Fl [address] [place] [address] Aviva Humphries MD [address] [facility] [address] [place] [address] Infusion Chair 5, 2nd Floor Hall 08/25/2024 1:00 PM CLINIQUE COUNTER MANAGER Office Visit [facility] Gynecologic Oncology Hall [address] [facility] [address] [place] [address] Edilia Pettit, CHELY [address] [facility] [address] [place] [address] 08/25/2024 1:30 PM CLINIQUE COUNTER MANAGER Appointment Randy Proctor [facility] Infusion Center 2nd Fl [address] [place] [address] Aviva Humphries MD [address] [facility] [address] [place] [address] Infusion Chair 1, 2nd Floor Hall 09/01/2024 10:45 AM CLINIQUE COUNTER MANAGER Appointment [facility] Nuclear Medicine [address] [place] [address] [id number] Edilia Pettit, CHELY [address] [facility] [address] [place] [address] documented as of this encounter Visit Diagnoses Not on filedocumented in this encounter Care Teams Petroleum Refining Firer Relationship Specialty Start Date End Date Shilo Soares MD [address] [place] [address] PCP - General Internal Medicine 04/24/23 documented as of this encounter
--- OUTSIDE RECORDS SUMMARY | 2024-07-27 00:05 | XMS_ITS | Encounter Summary ---
Author Organization [facility] Address [address] [place] [address] Care Team Providers Care Loom Blower Name Role Phone Shilo Soares MD Primary Care Provider [phone] Encounter Details Date Type Department Care Team (Late Contact Info) Description 05/20/2023 Orders Only [facility] Gynecologic Oncology [address] [place] [address] Aviva Humphries MD [address] [place] [address] Social History Tobacco Use Types [...] (Late Contact Info) Description 08/04/2024 1:00 PM TUBE REBUILDER Appointment [facility] 2nd Fl [address] [place] [address] Aviva Humphries MD [address] [place] [address] Infusion Chair 5, 2nd Floor [place] 08/25/2024 1:00 PM TUBE REBUILDER Office Visit [facility] Gynecologic Oncology Hall [address] [place] [address] Edilia Pettit NP [address] [facility] [address] [place] [address] 08/25/2024 1:30 PM TUBE REBUILDER Appointment [facility] Center 2nd Fl [address] [facility] [place] [address] Aviva Humphries MD [address] [address] [place] [address] Infusion Chair 1, 2nd Floor [place] 09/01/2024 10:45 AM TUBE REBUILDER Appointment Randy Hall [facility] Nuclear Medicine [address] [place] [address] [id number] Edilia Pettit, CHELY [address] [facility] [address] [place] [address] documented as of this encounter Visit Diagnoses Not on filedocumented in this encounter Care Teams Loom Blower Relationship Specialty Start Date End Date Shilo Soares MD [address] [place] [address] PCP - General Internal Medicine 04/24/23 documented as of this encounter
--- OUTSIDE RECORDS SUMMARY | 2024-07-27 00:05 | XMS_ITS | Encounter Summary ---
Author Organization [facility] [employer] Address [address] [place] [address] Care Team Providers Care Industrial Technologist Name Role Phone Shilo Soares MD Primary Care Provider [phone] Encounter Details Date Type Department Care Team (Late Contact Info) Description 05/04/2023 Orders Only [facility] Oncology and Hematology - [place] [address] [facility] [address] [place] [address] Rober Carter MD [address] [facility] [address] [place] [address] Social History Tobacco Use Types [...] (Late Contact Info) Description 08/04/2024 1:00 PM LOADER DEMOLDER Appointment [facility] Center 2nd Fl [address] [place] [address] Aviva Humphries MD [address] [place] [address] Infusion Chair 5, 2nd Floor [place] 08/25/2024 1:00 PM LOADER DEMOLDER Office Visit [facility] Gynecologic Oncology Hall [address] [facility] [facility] [address] [place] [address] Edilia Pettit, CHELY [address] [facility] [address] [place] [address] 08/25/2024 1:30 PM LOADER DEMOLDER Appointment [facility] Center 2nd Fl [address] [place] [address] Aviva Humphries MD [address] [address] [place] [address] Infusion Chair 1, 2nd Floor [place] 09/01/2024 10:45 AM LOADER DEMOLDER Appointment Randy Hall [facility] Nuclear Medicine [address] [place] [address] [id number] Edilia Pettit, CHELY [address] [address] [place] [address] documented as of this encounter Procedures Procedure Name Priority Date/Time Associated Diagnosis Comments CT CHEST W CONTRAST Routine 05/01/2023 9:12 AM CDT CANCER ANTIGEN 125 Routine 04/29/2023 9:30 AM CDT documented in this encounter Results * CT CHEST W CONTRAST (05/01/2023 9:12 AM CDT) Anatomical Region Laterality Modality Chest Other Rober Carter MD CT ORDERABLES * CANCER ANTIGEN 125 (04/29/2023 9:30 AM CDT) Blood Rober Carter MD CHEMISTRY ORDERABLES documented in this encounter Visit Diagnoses Not on filedocumented in this encounter Care Teams Industrial Technologist Relationship Specialty Start Date End Date Shilo Soares MD [address] [place] [address] PCP - General Internal Medicine 04/24/23 documented as of this encounter
--- OUTSIDE RECORDS SUMMARY | 2024-07-27 00:05 | XMS_ITS | Encounter Summary ---
Author Organization [facility] Address [address] [place] [address] Care Team Providers Care Gas Main And Line Fitter Name Role Phone Shilo Soares MD Primary Care Provider [phone] Reason for Visit * Reason Onset Date Comments chemotherapy teaching 05/22/2023 Encounter Details Date Type Department Care Team (Late st Contact Info) Description 05/22/2023 Telephone [facility] Gynecologic Oncology [address] [place] [address] Aviva Humphries MD [address] [place] [address] chemotherapy teaching Social History Tobacco Use Types Packs/Day Years [...] Telephone Encounter - Stevie Chavarria RN - 05/22/2023 10:03 AM CDT Chemo teaching completed with patient over the phone. All literature explained to the patient as well as any side effects and symptoms. All questions answered and patient voiced understanding. Side effects of carboplatin reviewed with patient: Most people do not experience all of the side effects listed. Side effects are often predictable in terms of their onset and duration. Side effects are almost always reversible and will go away after treatment is complete. There are many options to help minimize or prevent side effects. There is no relationship between the presence or severity of side effects and the effectiveness of Carboplatin. The side effects of Carboplatin and their severity depend on how much of Carboplatin is given. In other words, high doses may produce more severe side effects). The following side effects are common for patients taking Carboplatin: Low blood counts (including red blood cells, white blood cells and platelets) Jude: Meaning low point, jude is the point in time between chemotherapy cycles in which you experience low blood counts. Nausea and vomiting usually occurring within 24 hours of treatment Taste changes Hair loss Weakness Blood test abnormalities: Abnormal magnesium level These are less common side effects for patients receiving Carboplatin: Burning sensation at the injection site Abdominal pain Diarrhea Constipation Mouth sores Infection Peripheral neuropathy: numbness and tingling of the extremities may be experienced Sensory loss, numbness and tingling, and difficulty in walking may last for at least as long as therapy is continued. These side effects may become progressively more severe with continued treatment, and your doctor may decide to decrease your dose. Central neurotoxicity: Infrequent but patients over age 65 are at increased risk. Symptoms include dizziness, confusion, visual changes, ringing in the ears. Kidney problems: More frequent when Carboplatin is given in high doses or to people with kidney problems. Hearing loss Abnormal blood electrolyte levels, sodium, potassium, or calcium Abnormal blood liver enzymes Cardiovascular events. Although infrequent, heart failure, blood clots and strokes have been reported with Carboplatin use Allergic reaction may occur. It would occur during the actual transfusion. This may include itching, rash, shortness of breath or dizziness Side effects of Taxol reviewed with the pt: Important things to remember about Taxol side effects include: Most people do not experience all of the Taxol side effects listed. Taxol side effects are often predictable in terms of their onset and duration. Taxol side effects are almost always reversible and will go away after treatment is complete. There are many options to help minimize or prevent Taxol side effects. There is no relationship between the presence or severity of Taxol side effects and the effectiveness of the medication. The Taxol side effects and their severity vary depending on how much of the drug is given, and/or the schedule in which it is given The following Taxol side effects are common: Low blood counts. Your white and red blood cells and platelets may temporarily decrease. This can put you at increased risk for infection, anemia and/or bleeding. Hair loss Arthralgias and myalgias, pain in the joints and muscles. Usually temporary occurring 2 to 3 days after Taxol, and resolve within a few days. Peripheral neuropathy (numbness and tingling of the hands and feet) Nausea and vomiting (usually mild) Diarrhea Mouth sores Hypersensitivity reaction - fever, facial flushing, chills, shortness of breath, or hives after Taxol is given. The majority of these reactions occur within the first 10 minutes of an infusion. Notify your healthcare provider immediately (premedication regimen has significantly decreased the incidence of this reaction). The following are less common side effects: Swelling of the feet or ankles (edema). Increases in blood tests measuring liver function. These return to normal once treatment is discontinued Low blood pressure (occurring during the first 3 hours of infusion). Darkening of the skin where previous radiation treatment has been given (radiation recall - see skin reactions). Nail changes (discoloration of nail beds - rare) Side Effects of Avastin: Important things to remember about the side effects of avastin: Most people do not experience all of the side effects listed. Side effects are often predictable in terms of their onset and duration. Side effects are almost always reversible and will go away after treatment is complete. There are many options to help minimize or prevent side effects. There is no relationship between the presence or severity of side effects and the effectiveness of the medication. There is no data as to the frequency of adverse reactions that may be attributed to avastin alone. (In clinical studies avastin was used in combination with other chemotherapy medications). The following side effects are common (occurring in greater than 30%) for patients taking avastin: Generalized Weakness Pain Abdominal pain Nausea & vomiting Poor appetite Constipation Upper respiratory infection Low white blood cell count. (This can put you at increased risk for infection.) Proteinuria (see kidney problems) Nose bleed (see bleeding problems) Diarrhea Hair loss Mouth sores Headache These side effects are less common side effects (occurring in about 10-29%) of patients receiving avastin: Shortness of breath Dizziness High blood pressure Weight loss Muscle aches and pains These are rare but serious complications of avastin therapy. Gastrointestinal perforation/ fistula formation/ wound healing complications Hemorrhage (severe bleeding) Hypertensive crisis (severe high blood pressure) Nephrotic Syndrome - a condition marked by very high levels of protein in the urine (proteinuria), low levels of protein in the blood, swelling, especially around the eyes, feet and hands. This syndrome is caused by damage to the glomeruli (tiny blood vessels in the kidney that filter waste and excess water from the blood and send them to the bladder as urine). Congestive heart failure in patients who have received prior treatment with anthracycline based chemotherapy, or radiation therapy to the chest wall. Delayed effects: Based on animal studies, avastin may disrupt normal menstrual cycles and impair fertility by several effects. Some parameters do not recover completely, or recover very slowly following discontinuation of the drug. Not all side effects are listed above. Some that are rare (occurring in less than 10% of patients) are not listed here. However, you should always inform your health care provider if you experience any unusual symptoms. documented in this encounter Plan of Treatment Upcoming Encounters Date Type Department Care Team (Late st Contact Info) Description 08/04/2024 1:00 PM DIRECTOR NETWORK DEVELOPMENT Appointment Randy Proctor [facility] Infusion Center [facility] [address] [place] [address] Aviva Humphries MD [address] [facility] [place] [phone] Infusion Chair 5, 2nd Floor [place] 08/25/2024 1:00 PM DIRECTOR NETWORK DEVELOPMENT Office Visit [facility] Gynecologic Oncology [place] [address] [phone] Edilia Pettit NP [address] [phone] 08/25/2024 1:30 PM DIRECTOR NETWORK DEVELOPMENT Appointment Randy Proctor [facility] Infusion Center [facility] [address] [place] [address] Aviva Humphries MD [address] [facility] [facility] [address] [place] [phone] Infusion Chair 1, 2nd Floor [place] 09/01/2024 10:45 AM DIRECTOR NETWORK DEVELOPMENT Appointment Randy Proctor [facility] Nuclear Medicine [address] [place] [phone] [id number] Edilia Pettit, CHELY [address] [place] [phone] documented as of this encounter Visit Diagnoses Not on filedocumented in this encounter Care Teams Gas Main And Line Fitter Relationship Specialty Start Date End Date Shilo Soares MD [address] [place] [phone] PCP - General Internal Medicine 04/24/23 documented as of this encounter
--- OUTSIDE RECORDS SUMMARY | 2024-07-27 00:06 | XMS_ITS | Encounter Summary ---
Author Organization [facility] Address [address] [place] [address] Care Team Providers Care Licensing Officer Name Role Phone Shilo Soares MD Primary Care Provider [phone] Reason for Referral * Eval and Treat (Routine) - Closed Specialty Diagnoses / Procedures Referred By Alison gomez Referred To Contact Gynecologic Oncology Diagnoses Malignant neoplasm of ovary, unspecified laterality Procedures [place] OFFICE/OUTPATIENT ESTABLISHED MOD MDM 30-39 MIN [place] OFFICE/OUTPATIENT NEW MODERATE MDM 45-59 MINUTES Rober Carter MD [address] [place] [address] Toño Johnson MD [address] [place] [phone] Referral ID Status Reason Start Date Expiration Date Visits Re quested Visits Authorized [id number] Closed 04/24/2023 04/23/2024 1 1 Reason for Visit * Reason Comments Cancer Establish Care Encounter Details Date Type Department Care Team (Late st Contact Info) Description 04/24/2023 3:00 PM CDT Office Visit [facility] Oncology and Hematology - [place] [address] [place] [address] [address] [place] [address] Rober Carter MD [address] [place] [address] Malignant ascites (Primary Dx); Lymphadenopathy; Malignant neoplasm of ovary, unspecified laterality Social History Tobacco Use Types Packs/Day Years Used Date Smoking Tobacco: Every Day Cigarettes 0.5 35 Smokeless Tobacco: Never Tobacco Cessation:Ready to Q uit: Not Asked; Counseling Given: Not Answered Alcohol Use Standard Drinks/Week Comments Yes 0 (1 standard drink = 0.6 oz pur e alcohol) socially Sex and Gender Information Value Date Recorded Sex Assigned at Not on file Gender Identity Not on file Sexual Orientation Not on file documented as of this encounter Last Filed Vital Signs Vital Sign Reading Time Taken Comments Blood Pressure 116/59 04/24/2023 2:48 PM CDT Pulse 105 04/24/2023 2:48 PM CDT Temperature 36.7 ??C (98.1 ??F) 04/24/2023 2:48 PM CD T Respiratory Rate 18 04/24/2023 2:48 PM CDT Oxygen Saturation 97% 04/24/2023 2:48 PM CDT Inhaled Oxygen Concentration - - Weight 51.2 kg (112 lb 12.8 oz) 04/24/2023 2:48 PM CDT Height - - Body Mass Index - - documented in this encounter Progress Notes * Rober Carter MD - 04/24/2023 4:44 PM CDT Hematology-oncology consult Note Requesting Physician Shilo Soares MD Primary Care Physician Shilo Soares MD Problem list There is no problem list on file for this patient. Previous TREATMENT ? Measurable Disease ? Reason for Visit November is a 62 y.o. female who was referred for consultation for ovarian cancer. History of present illness This is a 61-year-old pleasant female who has been in good health except history of hyperlipidemia and asthma started having some abdominal distention in early March 2023. She went to the ER at the [facility] where CT abdomen and pelvis was done on April 16 that showed 11.6 cm right ovarian mass along with peritoneal carcinomatosis with large volume of ascites. There was mildright inguinal and external iliac lymphadenopathy and wall thickening of the body of the stomach may be serosal metastasis. She has lost 15 pound weight in 3 months. She denies any previous history of malignancy. She has been having difficulty eating and get full quickly. Denies any diarrhea and con stipation. No other new complaints. Past Medical History Past Medical History: Diagnosis Date Asthma Emphysema of lung Hyperlipidemia Surgical History Past Surgical History: Procedure Laterality Date HX BUNIONECTOMY Bilateral 2010 HX SECTION 1982,1985,1994 Medications Current Outpatient Medications Medication Sig Dispense Refill albuterol sulfate HFA 90 mcg/actuation aerosol inhaler Take 1 Puff by inhalation every 6 hours as needed. atorvastatin (LIPITOR) 20 mg tablet Take 20 mg by mouth daily at bedtime. cetirizine (ZyrTEC) 10 mg tablet Take 10 mg by mouth 2 times daily. fluticasone propionate (FLONASE) 50 mcg/spray Steen, Suspension nasal inhaler Administer 2 Sprays in each nostril daily. omega-3 fatty acids-fish oil 300-1,000 mg Capsule Take 2 Capsules by mouth daily. No current facility-administered medications for this visit. Allergies Allergies Allergen Reactions Penicillins Rash Ciprofloxacin Rash Immunizations: There is no immunization history on file for this patient. Family History Family History Problem Relation Name Age of Onset Lung Cancer Father Heart Disease Father No Known Problems Mother Diabetes Brother Diabetes Sister No Known Problems Son No Known Problems Son No Known Problems Daughter Social History Social History Tobacco Use Smoking status: Every Day Packs/day: 0.50 Years: 35.00 Additional pack years: 0.00 Total pack years: 17.50 Types: Cigarettes Smokeless tobacco: Never Substance Use Topics Alcohol use: Yes Comment: socially Review of Systems Constitutional: Patient did not mention fever; no night sweats; no anorexia; tiredness and fatigue and 15 pound weight loss NEENT: Patient did not mention headache; no change in vision; no change in hearing; no sore throat;no dysphagia Respiratory: Patient did not mention shortness of breath; no pleuritic chest pain; no cough; no hemoptysis Cardiac: Patient did not mention cardiac-like chest pain; no palpitations; no orthopnea; no PND; noDOE Breasts: Patient did not mention tenderness; no masses GI: Patient did not mention abdominal pain; no nausea; no vomiting; no diarrhea; no hematochezia; no melena, complain of abdominal distention : Patient did not mention dysuria; no frequency; no hesitancy; no hematuria MEDICAL EQUIPMENT TECHNICIAN: Musculosketetal: Patient did not mention bone pain; no arthralgia; no joint swelling; no myalgia; Skin: Patient did not mention pruritis; no rash; no petechiae; no ecchymoses Endocrine: Patient did not mention polydipsia; no polyuria; no unusual weight gain Neuro: Patient did not mention headache; no change in vision; no sensory changes; no muscle weakness; no confusion; no seizures Psych: Patient did not mention anxiety; no depression; Physical Exam Vitals: As per nursing note Constitutional: Well developed, well nourished, no acute distress, non-toxic appearance Teeth and gum. No signs of infection or swelling. Eyes: PERRL, conjunctiva normal HEENT: Atraumatic, external ears normal, nose normal, oropharynx moist, no pharyngeal exudates. no sinus tenderness Neck- normal range of motion, no tenderness, supple Respiratory: No respiratory distress, normal breath sounds, no rales, no wheezing Cardiovascular: Normal rate, normal rhythm, no murmurs, no gallops, no rubs GI: Abdomen distended with ascites, normal bowel sounds, nontender, no splenomegaly, no hepatomegaly, no mass, no rebound, no guarding : No costovertebral angle tenderness Musculoskeletal: No edema, no tenderness, no deformities. Back- no tenderness Integument: Well hydrated, no rash, Digits and nails inspection normal Lymphatic: No lymphadenopathy noted Neurologic: Alert & oriented x 3, CN 2-12 normal, normal motor function, normal sensory function, no focal deficits noted Psychiatric: Speech and behavior appropriate ? labs No results found for this or any previous visit (from the past 24 hour(s)). Pathology ? Imaging & Other Studies Performance Status? ECOG performance status 0 Assessment / Plan: ? Likely ovarian cancer. Patient is a pleasant 62-year-old female with history of hyperlipidemia and asthma presented to the [facility] ER on April 16 with abdominal distention. Scott noticed initial abdominal distention in early March. Since then she has lost [address] scan showed peritoneal carcinomatosis with large volume of ascites and 11 cm right ovarian mass along with mild right inguinal and external iliac lymphadenopathy. There was wall thickening of the body of the stomach which may be serosal metastasis. I have discussed this finding with patient in detail. She is quite uncomfortable with ascites. I wanted to get diagnostic and therapeutic paracentesis but due to late Thursday I have to send her to the ER to get paracentesis done. I will order CT chest for complete staging. We will check labs including CBC, CMP and CA125. I will order NexGen rationsequencing with [employer]. I will order ultrasound-guided biopsy of right inguinal lymph node. I will order MEDICAL EQUIPMENT TECHNICIAN oncology consultation with Dr. Johnson. I will see her back in 1 week to discuss findings and further recommendations. I have answered all questions to patient satisfaction. Likely malignant ascites. Patient will go to the ER for diagnostic and therapeutic paracentesis. Asthma. Patient is on albuterol and Flonase inhaler. Hyperlipidemia. She is on Lipitor. Thank you very much for allowing me to participate in Novemberue's evaluation and management. Please feel free to contact if I can be of any further assistance in your patient???s care requiring hematology or oncology evaluation. Sincerely, ? ? oRber Carter M.D. cell TOBACCO COUNSELING She is not a tobacco/nicotine user. Rober Carter MD ,04/24/2023 4:44 PM ? Total time spent 60 minutes, two third of the total time spent counseling patient [id number]. CC:?Shilo Soares MD documented in this encounter Plan of Treatment Upcoming Encounters Date Type Department Care Team (Late st Contact Info) Description 08/04/2024 1:00 PM BALANCE WHEEL HAND FILER Appointment Randy Hall [facility] Infusion Center [facility] [address] [place] [address] Aviva Humphries MD [address] [facility] [address] [place] [address] Infusion Chair 5, 2nd Floor [place] 08/25/2024 1:00 PM BALANCE WHEEL HAND FILER Office Visit [facility] Gynecologic Oncology [place] [address] [facility] [address] [place] [address] Edilia Pettit NP [address] [facility] [address] [place] [address] 08/25/2024 1:30 PM BALANCE WHEEL HAND FILER Appointment Randy Hall [facility] Infusion Center 2nd Fl [address] [place] [address] Aviva Humphries MD [address] [facility] [address] [place] [address] Infusion Chair 1, 2nd Floor [place] 09/01/2024 10:45 AM BALANCE WHEEL HAND FILER Appointment [facility] Nuclear Medicine [address] [place] [phone] [id number] Edilia Pettit, CHELY [address] [place] [address] Scheduled Orders Name Type Priority Associated Diagnoses Orde r Schedule CANCER ANTIGEN 125 Lab Routine Malignant neoplasm of ovary, unspecified laterality Expected: 04/24/2023, Expires: 04/23/2024 PARENCENTESIS Procedures Routine Malignant ascites Ordered: 04/24/2023 BIOPSY Procedures Routine Lymphadenopathy Ordered: 04/24/2023 Scheduled Referrals Name Type Priority Associated Diagnoses Orde r Schedule AMB REFERRAL TO MEDICAL EQUIPMENT TECHNICIAN ONCOLOGY Outpatient Referral Routine Malignant neoplasm of ovary, unspecified laterality Ordered: 04/24/2023 documented as of this encounter Visit Diagnoses Diagnosis Malignant ascites- Primary Lymphadenopathy Enlargement of lymph nodes Malignant neoplasm of ovary, unspecified laterality documented in this encounter Care Teams Licensing Officer Relationship Specialty Start Date End Date Shilo Soares MD [address] [place] [phone] PCP - General Internal Medicine 04/24/23 documented as of this encounter
== END 2024-07-23 08:44 | disposition home or self-care (01) ==
LOC: ANHLAB 08:44
PROVIDERS: PCP Emergency Medicine; Visit Provider Emergency Medicine
DX: E78.5 Hyperlipidemia, unspecified (principal); E55.9 Vitamin D deficiency, unspecified
CPT/HCPCS: 36415; 80053; 80061; 82306

== ENCOUNTER 2024-12-03 08:32 | Outpatient (CLI) | payer OTHER, SELFPAY ==
--- OUTSIDE RECORDS SUMMARY | 2024-12-03 08:35 | XMS_ITS | Referral Summary ---
Author Organization [address] Address [address] [place] [address] Care Team Providers Care Chemical Process Analyst Name Role Phone Miscellaneous, Not In File [...] tablet (50 mg total) by mouth daily Active loratadine (CLARITIN) 10 mg tablet Take 1 tablet (10 mg total) by mouth daily Active lidocaine-prilo luciano cream APPLY A THIN LAYER OVER PORT SITE 30-45 MINUTES PRIOR TO CHEMOTHERAPY. Active fluticasone propionate (FLONASE) 50 mcg/actuation nasal [...] 96 05/30/2024 4:45 PM CDT Temperature 36.7 C (98 F) 05/30/2024 4:45 PM CDT Respiratory Rate 16 05/30/2024 4:45 PM CDT Oxygen Saturation 99% 05/30/2024 4:45 PM CDT Inhaled Oxygen Concentration - - Weight 50.8 kg (112 lb) 05/30/2024 4:45 PM CDT Height 167.6 cm (5' 6 ) 05/30/2024 4:45 PM CDT Body Mass Index 18.08 05/30/2024 4:45 PM CDT Plan of Treatment Not on file Insurance O HMO Care Teams Chemical Process Analyst Relationship Specialty Start Date End Date Miscellaneous, Not In File PCP - General 04/19/21
--- OUTSIDE RECORDS SUMMARY | 2024-12-03 08:35 | XMS_ITS | Clinical Summary ---
Author Organization [address] Address [address] [place] [address] Care Team Providers Care Pressure Tester Name Role Phone Miscellaneous, Not In File [...] tab daily x 4 days 6 tablet Active Active Problems No known active problems Surgical History Surgery Date Site/Laterality Comments SECTION [...] Depression Screening 1959 Hepatitis C Screening 1960 Hepatitis B Screening 11/26/1977 Regular Well Visit/Exam 18-64 11/26/1977 Pneumococcal vaccine <65 (1 of 2 - PCV) 11/26/1978 Zoster Vaccine (1 of 2) 11/26/1978 DTaP/Tdap/Td Vaccine (1 - Tdap) 05/10/1994 Covid-19 Vaccine (3 - Moderna risk series) 11/14/2020 10/17/2020, 09/22/2020 Influenza Vaccine (#1) 2024 Insurance [facility] Care Teams Pressure Tester Relationship Specialty Start Date End Date Miscellaneous, Not In File PCP - General 04/19/21
--- OUTSIDE RECORDS SUMMARY | 2024-12-03 08:35 | XMS_ITS | Encounter Summary ---
Author Organization [facility] Address [address] [place] [address] Care Team Providers Care Department Traffic Freight Router Name Role Phone Shilo Soares MD Primary Care Provider [phone] Encounter Details Date Type Department Care Team (Latest Contact Info) Description 10/31/2024 Results Follow-Up [facility] Gynecologic Oncology Hall [address] [facility] [address] [place] [address] Edilia Pettit, CHELY [address] [facility] [address] [place] [address] CBC WITH DIFFERENTIAL Social History Tobacco Use Types Packs/Day Years Used Date Smoking Tobacco: Every Day Cigarettes 0.5 35 Smokeless Tobacco: Never Alcohol Use Standard Drinks/Week Comments Not Currently 0 (1 standard drink = 0.6 oz pur e alcohol) 2-3 drinks per year Feeling Safe Answer Date Recorded Are you in a relationship wi th someone who hurts you emotionally and/or physically? No 09/12/2024 Food Insecurity Answer Date Recorded Social/Environmental Concerns No concerns Transportation Needs Answer Date Record ed Social/Environmental Concerns No concerns Housing Stability Answer Date Recorded Social/Environmental Concerns No concerns Utility Needs Answer Date Recorded Social/Environmental Concerns No concerns Comments No Sex and Gender Information Value Date Recorded Sex Assigned at Not on file Legal Sex Female 1:55 PM CDT Gender Identity Not on file Sexual Orientation Not on file documented as of this encounter Miscellaneous Notes * Telephone Encounter - Arben Bryan RN - 10/31/2024 9:10 AM CDT Standing order for CBC to [facility] documented in this encounter Plan of Treatment Upcoming Encounters Date Type Department Care Team (Late st Contact Info) Description 12/14/2024 3:15 PM CDT Office Visit [facility] Gynecologic Oncology [place] [address] [facility] [address] [place] [address] Aviva Humphries MD [address] [facility] [address] [place] [address] 12/15/2024 2:00 PM CDT Appointment Randy Hall [facility] Infusion Center 2nd Fl [address] [place] [address] Infusion Chair 7, 2nd Floor Hall 12/20/2024 2:00 PM CDT Appointment [facility] CT Scan [address] [place] [address] Aviva Humphries MD [address] [facility] [address] [place] [address] 01/05/2025 1:00 PM CDT Office Visit [facility] Gynecologic Oncology [place] [address] [facility] [address] [place] [address] Edilia Pettit NP [address] [facility] [address] [place] [address] 01/05/2025 1:30 PM CDT Appointment Randy Hall [facility] Infusion Center 2nd Fl [address] [place] [address] Infusion Chair 10, 2nd Floor [place] Scheduled Orders Name Type Priority Associated Diagnoses Orde r Schedule CBC WITH DIFFERENTIAL Lab Routine Maintenance antineoplastic chemotherapy 1 TIME A WEEK for 4 Occurrences starting 10/31/2024 until 10/31/2025, 1 completed documented as of this encounter Results * (ABNORMAL) CBC WITH DIFFERENTIAL (11/10/2024 3:23 PM CDT) WBC 5.2 3.8 - 10.8 Thousand/u L [facility] RBC 3.26(L) 3.80 - 5.10 Million/uL [facility] HEMOGLOBIN 12.3 11.7 - 15.5 g/dL [facility] HEMATOCRIT 36.1 35.0 - 45.0 % [facility] MCV 110.7(H) 80.0 - 100.0 fL [facility] MCH 37.7(H) 27.0 - 33.0 pg [facility] MCHC 34.1 32.0 - 36.0 g/dL [facility] Comment: For adults, a slight decrease in the calculated MCHC value (in the range of 30 to 32 g/dL) is most likely not clinically significant; however, it should be interpreted with caution in correlation with other red cell parameters and the patient's clinical condition. RDW 14.4 11.0 - 15.0 % [facility] PLATELETS 165 140 - 400 Thousand/u L [facility] MPV 10.8 7.5 - 12.5 fL [facility] NEUTROPHIL ABSOLUTE 2,361 1,500 - 7,800 cells/uL [facility] LYMPHOCYTE ABSOLUTE 2,392 850 - 3,900 cells/uL [facility] MONOCYTE ABSOLUTE 343 200 - 950 cells/uL [facility] EOSINOPHIL ABSOLUTE 73 15 - 500 cells/uL [facility] BASOPHILS ABSOLUTE 31 0 - 200 cells/uL [facility] NEUTROPHIL 45.4 % [facility] LYMPHOCYTES 46.0 % [facility] MONOCYTE 6.6 % [facility] EOSINOPHILS 1.4 % [facility] BASOPHILS 0.6 % [facility] Comment: FASTING:NO FASTING: NO Test Performed at: [facility] [id number] [place] [address] Radha Perez MD Blood 11/10/2024 3:23 PM CDT 11/10/2024 3:23 PM CDT us Edilia Pettit [address] MAINTENANCE CREW WORKER HEMATOLOGY ORDERABLES Final Resu lt [facility] [phone] [facility] [address] [place] [address] documented in this encounter Visit Diagnoses Diagnosis Maintenance antineoplastic chemotherapy- Primary Encounter for antineoplastic chemotherapy documented in this encounter Care Teams Department Traffic Freight Router Relationship Specialty Start Date End Date Shilo Soares MD [address] [place] [id number] PCP - General Internal Medicine 04/24/23 documented as of this encounter
--- OUTSIDE RECORDS SUMMARY | 2024-12-03 08:35 | XMS_ITS | Encounter Summary ---
Author Organization [facility] Address [address] [place] [address] Care Team Providers Care Sash Installer Name Role Phone Shilo Soares MD Primary Care Provider [phone] Encounter Details Date Type Department Care Team (Latest Contact Info) Description 11/11/2024 Results Follow-Up [facility] Gynecologic Oncology Hall [address] [place] [address] Edilia Pettit, CHELY [address] [facility] [address] [place] [address] CBC WITH DIFFERENTIAL Social History [...] Description 12/14/2024 3:15 PM CDT Office Visit [facility] Gynecologic Oncology Hall [address] [facility] [facility] [address] [address] [place] [address] Aviva Humphries MD [address] [facility] [address] [place] [address] 12/15/2024 2:00 PM CDT Appointment Randy Hall [facility] Infusion Center 2nd Fl [address] [facility] [place] [address] Infusion Chair 7, 2nd Floor Hall 12/20/2024 2:[address] [facility] CT Scan [place] [address] [place] [address] Aviva Humphries MD [address] [facility] [address] [place] [address] 01/05/2025 1:00 PM CDT Office Visit [facility] Gynecologic Oncology Hall [address] [facility] [address] [place] [address] Edilia Pettit, CHELY [address] [facility] [address] [place] [address] 01/05/2025 1:30 PM CDT Appointment Randy Hall [facility] Infusion Center 2nd Fl [address] [place] [address] Infusion Chair 10, 2nd [facility] documented as of this encounter Visit Diagnoses Not on filedocumented in this encounter Care Teams Sash Installer Relationship Specialty Start Date End Date Shilo Soares MD [address] [place] [address] PCP - General Internal Medicine 04/24/23 documented as of this encounter
--- OUTSIDE RECORDS SUMMARY | 2024-12-03 08:35 | XMS_ITS ---
Author Organization [facility] Marlon Swanson Address [address] [place] [address] [place] [address] Care Team Providers Care Quill Reamer Name Role Phone Shilo Soares MD Primary Care Provider [phone] Active Problems Problem Noted Date Diagnosed Date Asthma 09/12/2024 COPD (chronic obstructive pulmonary disease) 10/2024 Postprocedural pneumothorax 09/12/2024 HTN (hypertension), benign 09/12/2024 HLD (hyperlipidemia) 09/12/2024 Status post surgery 08/12/2023 Bladder injury 08/08/2023 Drug-induced androgenic alopecia 08/08/2023 Protein-calorie malnutrition, severe 08/07/2023 Ovarian cancer 05/13/2023 Cancer Staging:Clinical stage from 05/13/2023:FIGO Stage IVB- Signed by Aviva Humphries MD on 05/13/2023 Current Treatment and Therapy Plans OP ONC HYDRATION* Plan Start Date:11/24/2024 Plan Provider:Edilia Pettit NP Linked Problems Malignant neoplasm of ovary, unspecified laterality (CMS/HCC) Treatment Medications No medications scheduled. OP ONC OVARIAN_PACLITAXEL_CARBOPLATIN_BEVACIZUMAB (START ON CYCLE 2)_EVERY 21 DAYS X 6 FOLLOWED BY BEVACIZUMAB_EVERY 21 DAYS X 16* Plan Start Date:05/25/2023 Plan Provider:Aviva Humphries MD Linked Problems Malignant neoplasm of ovary, unspecified laterality (CMS/HCC) Treatment Medications Current Day (Day 1 , Cycle 24 - Planned for 12/15/2024) Next Day (Day 1, Cycle 25 - Planned for 01/05/2025) bevacizumab-awwb (MVASI) IVPBCARBOplatin (PARAPLATIN) IVPBPACLitaxel (TAXOL) IVPB bevacizumab-awwb (MVASI) 773 mg in sodium chloride 0.9 % 100 mL IVPB bevacizumab-awwb (MVASI) 773 mg in sodium chloride 0.9 % 100 mL IVPB Past Treatment and Therapy Plans No past plan information found. Lifetime Dose Tracking * Chemical Lifetime Dose Automatic Entry Manual Entr y Effective Dose 156.48 mSv 156.48 mSv 0 mSv Total DLP 5,635.08 DLP 5,635.08 DLP 0 DLP CTDIvol Max 78.56 mGy 78.56 mGy 0 mGy CTDIvol Min 6.02 mGy 6.02 mGy 0 mGy
--- OUTSIDE RECORDS SUMMARY | 2024-12-03 08:35 | XMS_ITS | Encounter Summary ---
Author Organization [facility] Address [address] [place] [address] Care Team Providers Care Nanotechnology Engineering Technologist Name Role Phone Shilo Soares MD Primary Care Provider [phone] Encounter Details Date Type Department Care Team (Latest Contact Info) Description 11/24/2024 Results Follow-Up [facility] Gynecologic Oncology Hall [address] [facility] [address] [place] [address] Edilia Pettit, ORTHOTIST OR PROSTHETIST [address] [facility] [address] [place] [address] URINALYSIS WITH REFLEX CULTURE, CBC WITH DIFFERENTIAL, COMPREHENSIVE METABOLIC PANEL Social History Tobacco Use Types Packs/Day Years Used Date Smoking Tobacco: Every Day Cigarettes 0.5 35 Smokeless Tobacco: Never Alcohol Use Standard Drinks/Week Comments Not Currently 0 (1 standard drink = 0.6 oz pur e alcohol) 2-3 drinks per year Feeling Safe Answer Date Recorded Are you in a relationship wi th someone who hurts you emotionally and/or physically? No 11/24/2024 Food Insecurity Answer Date Recorded Social/Environmental Concerns [...] Upcoming Encounters Date Type Department Care Team ( st Contact Info) Description 12/14/2024 3:15 PM CDT Office Visit [facility] Gynecologic Oncology Hall [address] [place] [address] Aviva Humphries MD [address] [place] [address] 12/15/2024 2:00 PM CDT Appointment Randy [facility] Infusion Center 2nd Fl [address] [place] [address] Infusion Chair 7, 2nd Floor Hall 12/20/2024 2:00 PM CDT Appointment [facility] CT Scan [address] [place] [address] Aviva Humphries MD [address] [place] [address] 01/05/2025 1:00 PM CDT Office Visit [facility] Gynecologic Oncology Hall [address] [place] [address] Edilia Pettit, CHELY [address] [place] [address] 01/05/2025 1:30 PM CDT Appointment Randy Hall [facility] Infusion Center 2nd Fl [address] [place] [address] Infusion Chair 10, 2nd [facility] documented as of this encounter Visit Diagnoses Not on filedocumented in this encounter Care Teams Nanotechnology Engineering Technologist Relationship Specialty Start Date End Date Shilo Soares MD [address] [place] [address] PCP - General Internal Medicine 04/24/23 documented as of this encounter
--- OUTSIDE RECORDS SUMMARY | 2024-12-03 08:35 | XMS_ITS ---
Author Organization Unknown Medications Medication Instructions Effective Dates (start - stop) Status mupirocin 0.02 MG/MG Topical Ointment 1209-84-41J13:00:00.000+00:0 0 - Completed [id number] 200 ACTUAT albuter ol 0.09 MG/ACTUAT Metered Dose Inhaler 6496-66-93Z16:00:00.000+00:0 0 - Completed [id number] 200 ACTUAT albuter ol 0.09 MG/ACTUAT Metered Dose Inhaler 0542-78-26M43:00:00.000+00:0 0 - Completed atorvastatin 20 MG Oral Tablet 2 314-50-98N17:00:00.000+00:00 - Completed [id number] 200 ACTUAT albuter ol 0.09 MG/ACTUAT Metered Dose Inhaler 3869-16-42M08:00:00.000+00:0 0 - Completed atorvastatin 20 MG Oral Tablet 2 742-97-71S42:00:00.000+00:00 - Completed - 8257-35-98A83:00 :00.000+00:00 - Completed [id number] 200 ACTUAT albuter ol 0.09 MG/ACTUAT Metered Dose Inhaler 6179-82-67O06:00:00.000+00:0 0 - Completed [id number] 200 ACTUAT albuter ol 0.09 MG/ACTUAT Metered Dose Inhaler 0767-21-54O00:00:00.000+00:0 0 - Completed [id number] 200 ACTUAT albuter ol 0.09 MG/ACTUAT Metered Dose Inhaler 9624-00-46A39:00:00.000+00:0 0 - Completed atorvastatin 20 MG Oral Tablet 2 045-25-11L46:00:00.000+00:00 - Completed atorvastatin 20 MG Oral Tablet 2 488-23-59K90:00:00.000+00:00 - Completed [id number] 200 ACTUAT albuter ol 0.09 MG/ACTUAT Metered Dose Inhaler 2659-10-14A02:00:00.000+00:0 0 - Completed prednisone 20 MG Oral Tablet 10-13-00:00:00.000+00:00 - Completed [id number] 200 ACTUAT albuter ol 0.09 MG/ACTUAT Metered Dose Inhaler 9804-03-43T34:00:00.000+00:0 0 - Completed [id number] 200 ACTUAT albuter ol 0.09 MG/ACTUAT Metered Dose Inhaler 8350-94-22C55:00:00.000+00:0 0 - Completed - 3420-91-29L96:00 :00.000+00:00 - Completed doxycycline hyclate 100 MG O ral Tablet 1607-42-31K97:00:00.000+00:0 0 - Completed {11 (varenicline 0.5 MG Oral Tablet) / 42 (varenicline 1 MG Oral Tablet) } Pack 5667-94-57J41:00:00.000+00:0 0 - Completed varenicline 1 MG Oral Tablet 202 09-20-10:00:00.000+00:00 - Completed {21 (methylprednisolone 4 MG Oral Tablet) } Pack 9089-33-07H27:00:00.000+00:0 0 - Completed Patient Care team information Name Category Status Period Participants - - Proposed period not known -
--- OUTSIDE RECORDS SUMMARY | 2024-12-03 08:35 | XMS_ITS | Encounter Summary ---
Author Organization [facility] Address [address] [place] [address] Care Team Providers Care Pediatric Anesthesiologist Name Role Phone Shilo Soares MD Primary Care Provider [phone] Encounter Details Date Type Department Care Team (Latest Contact Info) Description 12/01/2024 Results Follow-Up [facility] Gynecologic Oncology Hall [address] [facility] [address] [place] [address] Edilia Pettit, CHELY [address] [facility] [address] [place] [address] COMPREHENSIVE METABOLIC PANEL Social History Tobacco Use [...] No 11/24/2024 Food Insecurity Answer Date Recorded Patient needs follow up regardin 11/30/2024 Transportation Needs Answer Date Record ed Patient needs follow up regardin 11/30/2024 Housing Stability Answer Date Recorded Social/Environmental Concerns No concerns Utility Needs Answer Date Recorded Patient needs follow up regardin 11/30/2024 Comments No Sex and Gender Information Value Date Recorded Sex Assigned at Not on file Legal Sex Female 1:55 PM CDT Gender Identity Not on file Sexual Orientation Not on file documented as of this encounter Plan of Treatment Upcoming Encounters Date Type Department Care Team ( st Contact Info) Description 12/14/2024 3:15 PM CDT Office Visit [facility] Gynecologic Oncology Hall [address] [facility] [facility] [address] [place] [address] Aviva Humphries MD [address] [facility] [address] [address] [place] [address] 12/15/2024 2:00 PM CDT Appointment Randy [facility] Infusion Center 2nd Fl [address] [facility] [place] [address] Infusion Chair 7, 2nd Floor Hall 12/20/2024 2:00 PM CDT Appointment [facility] CT Scan [address] [place] [address] Aviva Humphries MD [address] [facility] [address] [facility] [address] [place] [address] 01/05/2025 1:00 PM CDT Office Visit [facility] Gynecologic Oncology Hall [address] [place] [address] Edilia Pettit, CHELY [address] [facility] [address] [place] [address] 01/05/2025 1:30 PM CDT Appointment Randy Hall [facility] Infusion Center 2nd Fl [address] [place] [address] Infusion Chair 10, [address] [place] [address] documented as of this encounter Visit Diagnoses Not on filedocumented in this encounter Care Teams Pediatric Anesthesiologist Relationship Specialty Start Date End Date Shilo Soares MD [address] [place] [address] PCP - General Internal Medicine 04/24/23 documented as of this encounter
--- OUTSIDE RECORDS SUMMARY | 2024-12-03 08:35 | XMS_ITS | Clinical Summary ---
Author Organization [facility] Marlon Swanson Address [address] [place] [address] Care Team Providers Care Economic Analysis Director Name Role Phone Shilo Soares MD Primary Care Provider [phone] Allergies Active Allergy Reactions Criticality Noted Date Comments Ciprofloxacin Rash Low 04/24/2023 Penicillins Rash Medium 04/19/2021 Medications albuterol sulfate HFA 90 mcg/actuation aerosol inhaler Take 1 Puff by inhalation every 6 hours as needed. 04/08/20 21 Active atorvastatin (LIPITOR) 20 mg tablet Take 20 mg by mouth daily at bedtime. 02/27/20 21 Active fluticasone propionate (FLONASE) 50 mcg/spray [place], Suspension nasal inhaler Administer 2 Sprays in each nostril daily. Active ondansetron (Zofran) 8 mg Tablet Take 1 Tablet (8 mg) by mouth every 8 hours as needed for Nausea. 30 Tablet 3 05/22/20 23 Active prochlorperazin e maleate (COMPAZINE) 10 mg tablet Take 1 Tablet (10 mg) by mouth every 6 hours as needed for Nausea/Emesis. 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 Active pyridoxine HCl, vitamin B6, (PYRIDOXINE, VITAMIN B6, ORAL) Take 1 Tablet by mouth 2 times daily. Active docusate sodium 100 mg capsule (COLACE) Take 100 mg by mouth daily at bedtime. Active lidocaine-prilo luciano (EMLA) 2.5-2.5 % Cream APPLY A THIN LAYER OVER PORT SITE 30-45 MINUTES PRIOR TO CHEMOTHERAPY. 30 Gram 12/14/19 24 Active losartan (COZAAR) 50 mg tablet Take 50 mg by mouth daily. 12/06/19 24 Active diphenhydrAMINE 12.5 mg/5 mL-viscous lidocaine-Maalo x 1:1:1 (MAGIC MOUTHWASH) oral suspension compound Take 5 mL by mouth see administration instructions. As needed - up to 4 times daily. 100 mL 1 07/28/20 24 Active Magnesium Gluconate 30 mg (550 mg) Tablet Take 1 Tablet by mouth daily at bedtime. Active fluticasone propion-salmete roL (ADVAIR DISKUS,WIXELA INHUB) 250-50 mcg/dose disk inhaler Take 1 Puff by inhalation 2 times daily. Active olaparib (Lynparza) 100 mg tablet TAKE 2 TABLETS BY MOUTH 2 TIMES A DAY 120 Tablet 1 09/28/19 25 Active Active Problems Problem Noted Date Diagnosed Date [...] Encounters Date Type Department Care Team Description 12/01/2024 Results Follow-Up [facility] Gynec[facility] Oncology [facility] [address] [place] [phone] Edilia Pettit NP COMPREHENSIVE METABOLIC PANEL 11/24/2024 1:19 PM CDT - 11/24/2024 11:59 PM CDT Hospital Encounter [facility] 2nd Fl [address] [place] [phone] Edilia Pettit NP Infusion Chair 10, 2nd Floor Hall Discharge Disposition: Home or Self Care 11/24/2024 1:00 PM CDT Office Visit [facility]nec[facility] On[facility] [address] [place] [address] Edilia Pettit NP Malignant neoplasm of ovary, unspecified laterality (CMS/HCC) (Primary Dx); Elevated serum creatinine; Maintenance antineoplastic chemotherapy 11/24/2024 11:15 AM CDT - 11/24/2024 11:59 PM CDT Hospital Encounter [facility] 2nd Fl [address] [place] [address] Aviva Humphries MD Discharge Disposition: Home or Self Care 11/24/2024 Results Follow-Up [facility] Gynec[facility] Oncology [facility] [address] [place] [address] Edilia Pettit NP URINALYSIS WITH REFLEX CULTURE, CBC WITH DIFFERENTIAL, COMPREHENSIVE METABOLIC PANEL 11/22/2024 External Device Data STL ABSTRACTION Provider, Abstract 11/22/2024 External Device Data STL ABSTRACTION Provider, Abstract 11/21/2024 Orders Only [facility] [address] [facility] [address] [place] [address] Edilia Pettit NP Maintenance antineoplastic chemotherapy 11/14/2024 Orders Only [facility] Hall [address] [place] [address] Edilia Pettit NP Maintenance antineoplastic chemotherapy 11/11/2024 Results Follow-Up [facility] [address] [place] [address] Edilia Pettit NP CBC WITH DIFFERENTIAL 11/07/2024 Orders Only [facility]nec[facility]cology [facility] [address] [place] [address] Edilia Pettit NP Maintenance antineoplastic chemotherapy 10/31/2024 Results Follow-Up [facility]nec[facility]cology Hall [address] [place] [address] Edilia Pettit, CHELY CBC WITH DIFFERENTIAL 10/26/2024 External Device Data STL ABSTRACTION Provider, Abstract 10/20/2024 12:24 PM CDT - 10/20/2024 11:59 PM CDT Hospital Encounter [facility] 2nd Fl [address] [place] [address] Aviva Humphries MD Infusion Chair 5, 2nd Floor Hall Discharge Disposition: Home or Self Care 10/20/2024 11:45 AM CDT - 10/20/2024 11:59 PM CDT Hospital Encounter [facility] 2nd Fl [address] [place] [address] Aviva Humphries MD Discharge Disposition: Home or Self Care 10/20/2024 Results Follow-Up [facility] Gynecologic Oncology Hall [address] [facility] [address] [place] [address] Aviva Humphries MD URINALYSIS WITH REFLEX CULTURE, CBC WITH DIFFERENTIAL, COMPREHENSIVE METABOLIC PANEL, Additional followed-up results: 2 10/17/2024 External Device Data STL ABSTRACTION Provider, Abstract 10/15/2024 External Device Data STL ABSTRACTION Provider, Abstract 10/14/2024 External Device Data STL ABSTRACTION Provider, Abstract 10/05/2024 3:00 PM FINANCIAL CONTROLLER Office Visit [facility] Gynecologic Oncology Hall [address] [facility] [facility] [address] [facility] [place] [address] Avvia Humphries MD Maintenance antineoplastic chemotherapy (Primary Dx); Malignant neoplasm of ovary, unspecified laterality (CMS/HCC) 10/05/2024 1:30 PM FINANCIAL CONTROLLER - 10/05/2024 11:59 PM FINANCIAL CONTROLLER Hospital Encounter [facility] 2nd Fl [address] [place] [address] Aviva Humphries MD Discharge Disposition: Home or Self Care 09/30/2024 Results Follow-Up [facility]nec[facility] On[facility] Hall [address] [facility] [address] [place] [address] Aviva Humphries MD CBC WITH DIFFERENTIAL, COMPREHENSIVE METABOLIC PANEL 09/29/2024 External Device Data STL ABSTRACTION Provider, Abstract 09/28/2024 External Device Data STL ABSTRACTION Provider, Abstract 09/28/2024 [facility]nec[facility] On[facility] Hall [address] [facility] [facility] [address] [place] [address] Aviva Humphries MD 09/27/2024 External Device Data STL ABSTRACTION Provider, Abstract 09/27/2024 External Device Data STL ABSTRACTION Provider, Abstract 09/26/2024 External Device Data STL ABSTRACTION Provider, Abstract 09/25/2024 External Device Data STL ABSTRACTION Provider, Abstract 09/24/2024 External Device Data STL ABSTRACTION Provider, Abstract 09/23/2024 External Device Data STL ABSTRACTION Provider, Abstract 09/22/2024 External Device Data STL ABSTRACTION Provider, Abstract 09/21/2024 External Device Data STL ABSTRACTION Provider, Abstract 09/20/2024 External Device Data STL ABSTRACTION Provider, Abstract 09/20/2024 External Device Data STL ABSTRACTION Provider, Abstract 09/19/2024 External Device Data STL ABSTRACTION Provider, Abstract 09/19/2024 External Device Data STL ABSTRACTION Provider, Abstract 09/18/2024 External Device Data STL ABSTRACTION Provider, Abstract 09/17/2024 External Device Data STL ABSTRACTION Provider, Abstract 09/16/2024 External Device Data STL ABSTRACTION Provider, Abstract 09/15/2024 External Device Data STL ABSTRACTION Provider, Abstract 09/15/2024 External Device Data STL ABSTRACTION Provider, Abstract 09/14/2024 External Device Data STL ABSTRACTION Provider, Abstract 09/14/2024 External Device Data STL ABSTRACTION Provider, Abstract 09/13/2024 External Device Data STL ABSTRACTION Provider, Abstract 09/13/2024 External Device Data STL ABSTRACTION Provider, Abstract 09/13/2024 External Device Data STL ABSTRACTION Provider, Abstract 09/13/2024 External Device Data STL ABSTRACTION Provider, Abstract 09/12/2024 6:01 AM FINANCIAL CONTROLLER - 09/13/2024 6:21 PM FINANCIAL CONTROLLER Hospital Encounter [facility] [address] [place] [phone] Edilia Pettit, [place], Mayte Modi MD [address], [facility] [facility] [address] Postprocedural pneumothorax Discharge Disposition: Home or Self Care 09/12/2024 Travel 09/12/2024 External Device Data STL ABSTRACTION Provider, Abstract 09/11/2024 External Device Data STL ABSTRACTION Provider, Abstract 09/09/2024 External Device Data STL ABSTRACTION Provider, Abstract 09/08/2024 External Device Data STL ABSTRACTION Provider, Abstract 09/07/2024 External Device Data STL ABSTRACTION Provider, Abstract 09/06/2024 External Device Data STL ABSTRACTION Provider, Abstract 09/05/2024 Orders Only [facility] Gynecologic Oncology [place] [address] [facility] [address] [place] [address] Edilia Pettit NP Pulmonary nodule (Primary Dx) 09/05/2024 External Device Data STL ABSTRACTION Provider, Abstract 09/04/2024 External Device Data STL ABSTRACTION Provider, Abstract [...] Sign Reading Time Taken Comments Blood Pressure 136/82 11/24/2024 12:45 PM CDT Pulse 92 11/24/2024 12:45 PM CDT Temperature 36.6 C (97.8 F) 11/24/2024 12:45 PM CDT Respiratory Rate 12 11/24/2024 12:45 PM CDT Oxygen Saturation 96% 11/24/2024 12:45 PM CDT Inhaled Oxygen Concentration - - Weight 52.4 kg (115 lb 9.6 oz) 11/24/2024 12:45 PM CDT Height 167.6 cm (5' 6 ) 11/24/2024 12:45 PM CDT Body Mass Index 18.66 11/24/2024 12:45 PM CDT Plan of Treatment Upcoming Encounters Date Type Department Care Team (Late st Contact Info) Description 12/14/2024 3:15 PM CDT Office Visit [facility] Gynecologic Oncology Hall [address] [place] [address] Aviva Humphries MD [address] [place] [address] 12/15/2024 2:00 PM CDT Appointment [facility] 2nd Fl [address] [place] [address] Infusion Chair 7, 2nd Floor Hall 12/20/2024 2:00 PM CDT Appointment [facility] CT Scan [address] [place] [address] Aviva Humphries MD [address] [place] [address] 01/05/2025 1:00 PM CDT Office Visit [facility] Gynecologic Oncology Hall [address] [place] [address] Edilia Pettit NP [address] [place] [address] 01/05/2025 1:30 PM CDT Appointment [facility] 2nd Fl [address] [place] [address] Infusion Chair 10, 2nd Floor [place] [facility] Maintenance Due Date Last Done Comments DTAP/TDAP/TD VACCINES (1 - Tdap) 11/26/1978 PNEUMOCOCCAL VACCINE 50+ YEARS (1 of 2 - PCV) 11/26/18 79 ZOSTER VACCINE (1 of 2) 11/26/1978 BREAST CANCER SCREENING 1999 COLORECTAL SCREENING 11/26/2004 Colorectal Cancer Screening 11/26/2004 FIT-DNA Q 3 years 11/26/2004 FIT/FOBT Q 1 year 11/26/2004 Flex Sig/CT Colonography Q 5 years 11/26/2004 RSV VACCINE (60+ or ) (1 - Risk 60-74 years 1-dose series) 2019 INFLUENZA VACCINE (#1) 2024 OSTEOPOROSIS SCREENING 11/26/2024 Medical Devices Implanted Type Area Assistant Front Desk Manager Device Identifier Shelf Expiration Date Model / Serial / Lot Hemostat Lanette Ah Powder 3gm [id number] - [id number] Implanted:Qt y: 1 on 08/06/2023 by Aviva Humphries MD at [facility] Hemostatic N/A: Abdomen BARD DAVOL [id number] 12/06/2027 [id number] / / [id number] Hemostat Lanette Ah Powder 3gm [id number] - [id number] Implanted:Qt y: 1 on 08/06/2023 by Aviva Humphries MD at [facility] N/A: Abdomen BARD DAVOL [id number] 12/06/2027 [id number] / / [id number] [place]- 023 Implanted:Qt y: 1 on 05/25/2023 by Casie Rajput MD Right: Chest Wall 01/07/2025 [id number] / / [id number] Description:BARD 8FR SLIM PO [place] IMPLANTED INTO RIGHT CHEST WALL ON 05/25/[address] RAJPUT Procedures Procedure Name Priority Date/Time Associated Diagnosis Comments CBC WITH DIFFERENTIAL Routine 11/30/2024 3:17 PM CDT Maintenance antineoplastic chemotherapy COMPREHENSIVE METABOLIC PANEL Routine 11/30/2024 3:17 PM CDT Elevated serum creatinine COMPREHENSIVE METABOLIC PANEL Stat 11/24/2024 11:38 AM CDT Malignant neoplasm of ovary, unspecified laterality (CMS/HCC) CBC WITH DIFFERENTIAL Stat 11/24/2024 11:38 AM CDT Malignant neoplasm of ovary, unspecified laterality (CMS/HCC) URINALYSIS WITH REFLEX CULTURE Stat 11/24/2024 11:38 AM CDT Malignant neoplasm of ovary, unspecified laterality (CMS/HCC) CANCER ANTIGEN 125 Routine 11/24/2024 11 :38 AM CDT Malignant neoplasm of ovary, unspecified laterality (CMS/HCC) CBC WITH DIFFERENTIAL Routine 11/10/2024 3:23 PM CDT Maintenance antineoplastic chemotherapy CBC WITH DIFFERENTIAL Routine 10/28/2024 3:10 PM CDT Malignant neoplasm of ovary, unspecified laterality (CMS/HCC) DIFFERENTIAL, MANUAL Stat 10/20/2024 11:56 AM CDT Malignant neoplasm of ovary, unspecified laterality (CMS/HCC) COMPREHENSIVE METABOLIC PANEL Stat 10/20/2024 11:56 AM CDT Malignant neoplasm of ovary, unspecified laterality (CMS/HCC) CBC WITH DIFFERENTIAL Stat 10/20/2024 11:56 AM CDT Malignant neoplasm of ovary, unspecified laterality (CMS/HCC) URINALYSIS WITH REFLEX CULTURE Stat 10/20/2024 11:56 AM CDT Malignant neoplasm of ovary, unspecified laterality (CMS/HCC) CANCER ANTIGEN 125 Routine 10/20/2024 11 :55 AM CDT Malignant neoplasm of ovary, unspecified laterality (CMS/HCC) COMPREHENSIVE METABOLIC PANEL Routine 10/13/2024 3:14 PM FINANCIAL CONTROLLER Maintenance antineoplastic chemotherapy CBC WITH DIFFERENTIAL Routine 10/13/2024 3:14 PM FINANCIAL CONTROLLER Maintenance antineoplastic chemotherapy URINALYSIS W/REFLEX MICROSCOPIC Stat 10/05/2024 1:36 PM FINANCIAL CONTROLLER Malignant neoplasm of ovary, unspecified laterality (CMS/HCC) DIFFERENTIAL, MANUAL Stat 10/05/2024 1:34 PM FINANCIAL CONTROLLER Malignant neoplasm of ovary, unspecified laterality (CMS/HCC) COMPREHENSIVE METABOLIC PANEL Stat 10/05/2024 1:34 PM FINANCIAL CONTROLLER Malignant neoplasm of ovary, unspecified laterality (CMS/HCC) CBC WITH DIFFERENTIAL Stat 10/05/2024 1:34 PM FINANCIAL CONTROLLER Malignant neoplasm of ovary, unspecified laterality (CMS/HCC) CANCER ANTIGEN 125 Routine 10/05/2024 1: 34 PM FINANCIAL CONTROLLER Malignant neoplasm of ovary, unspecified laterality (CMS/HCC) COMPREHENSIVE METABOLIC PANEL Routine 09/29/2024 3:17 PM FINANCIAL CONTROLLER Nausea Acute diarrhea CBC WITH DIFFERENTIAL Routine 09/29/2024 3:17 PM FINANCIAL CONTROLLER Nausea Acute diarrhea XR CHEST PA OR AP 1 VW Routine 09/13/2024 4:01 PM FINANCIAL CONTROLLER XR CHEST PA OR AP 1 VW Routine 09/13/2024 8:[address] GUIDED NEEDLE PLACEMENT Routine 09/12/2024 3:04 PM FINANCIAL CONTROLLER XR CHEST PA OR AP 1 VW Routine 09/12/2024 1:51 PM FINANCIAL CONTROLLER XR CHEST PA OR AP 1 VW Routine 09/12/2024 12:50 PM FINANCIAL CONTROLLER XR CHEST PA OR AP 1 VW Routine 09/12/2024 11:[address] GUIDED BIOPSY Routine 09/12/2024 9:05 AM FINANCIAL CONTROLLER Pulmonary nodule PATHOLOGY Pathology 09/12/2024 8:59 AM FINANCIAL CONTROLLER CBC WITH DIFFERENTIAL Stat 09/12/2024 6:30 AM FINANCIAL CONTROLLER from Last 3 Months Results * (ABNORMAL) CBC WITH DIFFERENTIAL (11/30/2024 3:17 PM CDT) Only the most recent of9 resultswithin the time period is included. WBC 5.2 3.8 - 10.8 Thousand/u L [facility] RBC 3.49(L) 3.80 - 5.10 Million/uL [facility] HEMOGLOBIN 13.1 11.7 - 15.5 g/dL [facility] HEMATOCRIT 39.0 35.0 - 45.0 % [facility] MCV 111.7(H) 80.0 - 100.0 fL [facility] MCH 37.5(H) 27.0 - 33.0 pg [facility] MCHC 33.6 32.0 - 36.0 g/dL [facility] Comment: For adults, a slight decrease in the calculated MCHC value (in the range of 30 to 32 g/dL) is most likely not clinically significant; however, it should be interpreted with caution in correlation with other red cell parameters and the patient's clinical condition. RDW 13.9 11.0 - 15.0 % [facility] PLATELETS 182 140 - 400 Thousand/u L [facility] MPV 9.9 7.5 - 12.5 fL [facility] NEUTROPHIL ABSOLUTE 2,522 1,500 - 7,800 cells/uL [facility] LYMPHOCYTE ABSOLUTE 2,246 850 - 3,900 cells/uL [facility] MONOCYTE ABSOLUTE 348 200 - 950 cells/uL [facility] EOSINOPHIL ABSOLUTE 62 15 - 500 cells/uL [facility] BASOPHILS ABSOLUTE 21 0 - 200 cells/uL [facility] NEUTROPHIL 48.5 % [facility] LYMPHOCYTES 43.2 % [facility] MONOCYTE 6.7 % [facility] EOSINOPHILS 1.2 % [facility] BASOPHILS 0.4 % [facility] Comment: FASTING:NO FASTING: NO Test Performed at: [facility] [address] Radha Perez MD Blood 11/30/2024 3:17 PM CDT 11/30/2024 3:18 PM CDT us Edilia Pettit NP HEMATOLOGY ORDERABLES Final Resu lt [facility] [phone] [facility] [address] * COMPREHENSIVE METABOLIC PANEL (11/30/2024 3:17 PM CDT) Only the most recent of6 resultswithin the time period is included. GLUCOSE 80 65 - 139 mg/dL [facility] Comment: Non-fasting reference interval BUN 10 7 - 25 mg/dL [facility] CREATININE 0.89 0.50 - 1.05 mg/dL [facility] GFR 72 > OR = 60 mL/min/1. 73m2 [facility] BUN/CREAT RATIO SEE NOTE: 6 (calc) [facility] Comment: Not Reported: BUN and Creatinine are within reference range. SODIUM 140 135 - 146 mmol/L [facility] POTASSIUM 3.9 3.5 - 5.3 mmol/L [facility] CHLORIDE 101 98 - 110 mmol/L [facility] CO2 32 20 - 32 mmol/L [facility] CALCIUM 9.3 8.6 - 10.4 mg/dL [facility] TOTAL PROTEIN 7.0 6.1 - 8.1 g/dL [facility] ALBUMIN 4.5 3.6 - 5.1 g/dL [facility] GLOBULIN 2.5 1.9 - 3.7 g/dL (calc) [facility] ALBUMIN/GLOBULIN RATIO 1.8 1.0 - 2.5 (calc) [facility] BILIRUBIN TOTAL 0.5 0.2 - 1.2 mg/dL [facility] ALKALINE PHOSPHATASE 81 37 - 153 U/L [facility] AST 18 10 - 35 U/L [facility] ALT 23 6 - 29 U/L [facility] Comment: FASTING:NO FASTING: NO Test Performed at: [facility] [address] [place] [address] Radha Perez MD Blood 11/30/2024 3:17 PM CDT 11/30/2024 3:18 PM CDT Edilia Pettit NP CHEMISTRY ORDERABLES Final Resul t [facility] [phone] [facility] [address] [facility] [place] [address] * (ABNORMAL) URINALYSIS WITH REFLEX CULTURE (11/24/2024 11:38 AM CDT) Only the most recent of2 resultswithin the time period is included. COLOR UA Pale Yellow Pale to Dark Yellow 11/24/2024 12:29 PM CDT [facility] [employer] [facility] CLARITY UA Clear Clear 11/24/2024 12:29 PM CDT [facility] LABORATORY SERVICES - [facility] SPECIFIC GRAVITY UA 1.003 1.003 - 1.035 11/24/2024 12:29 PM CDT [employer] LABORATORY SERVICES - [facility] PH UA 5.0 5.0 - 8.0 11/24/2024 12:29 PM CDT [facility] LABORATORY SERVICES - . [facility] LEUKOCYTE ESTERASE UA Trace(A) Negative 11/24/2024 12:29 PM CDT [facility]ORATORY SERVICES - [facility] Comment:For patient s with 'trace' results, consider ordering a culture and sensitivity if clinically indicated. NITRITE UA Negative Negative 11/24/2024 12:29 PM CDT [facility] LABORATORY SERVICES - . [facility] PROTEIN UA Negative Negative 11/24/2024 12:29 PM CDT [facility] LABORATORY SERVICES - . [facility] GLUCOSE UA Negative Negative 11/24/2024 12:29 PM CDT [facility] LABORATORY SERVICES - . [facility] KETONES UA Negative Negative 11/24/2024 12:29 PM CDT [facility] LABORATORY SERVICES - . [facility] UROBILINOGEN UA Normal <2.0 mg/dL 12:29 PM CDT [facility] LABORATORY SERVICES - [facility] BILIRUBIN UA Negative Negative 11/24/2024 12:29 PM CDT [facility] LABORATORY SERVICES - . [facility] BLOOD UA Negative Negative 11/24/2024 12:29 PM CDT [facility] LABORATORY SERVICES - . [facility] WBC UA 3-5(A) 0 - 2 /hpf 11/24/2024 12:29 PM CDT [facility] LABORATORY SERVICES - . [facility] RBC UA 0-2 0 - 2 /hpf 11/24/2024 12:29 PM CDT [facility] LABORATORY SERVICES - . [facility] BACTERIA UA 1+(A) Negative /hpf 11/24/2024 12:29 PM CDT [facility] LABORATORY SERVICES - [facility] EPITHELIAL CELLS, URINE 0-5 0 - 5 /hpf 11/24/2024 12:29 PM CDT [facility] LABORATORY SERVICES - . [facility] Urine URINE SPECIMEN OBTAINED BY CLEAN CATCH PROCEDURE / Unknown Collection / Unknown 11/24/2024 11:38 AM CDT 11/24/2024 12:04 PM CDT Edilia Pettit NP URINE ORDERABLES Final Result [facility] CLIA# [id number] [place] [place] [address] * CANCER ANTIGEN 125 (11/24/2024 11:38 AM CDT) Only the most recent of3 resultswithin the time period is included. CA 125 7 <35 U/mL [facility] Comment: This test was performed using the Siemens Chemiluminescent method. Values obtained from different assay methods cannot be used interchangeably. CA 125 levels, regardless of value, should not be interpreted as absolute evidence of the presence or absence of disease. Test Performed at: [facility] [address] [place] [address] Radha Perez MD Blood 11/24/2024 11:3 8 AM CDT 11/24/2024 11:59 AM CDT Edilia Pettit MIS MANAGER CHEMISTRY ORDERABLES Final Resul t Performing Organization Address [facility] Co de Phone Number [facility] [phone] [facility] [address] * MANUAL DIFFERENTIAL (10/20/2024 11:56 AM CDT) Only the most recent of2 resultswithin the time period is included. PLATELET EST. Consistent w Count 10/20/2024 12:23 PM CDT [facility] LABORATORY SERVICES - . [facility] ANISOCYTOSIS 1+ /hpf 10/20/2024 12:23 PM CDT [employer] LABORATORY SERVICES - [facility] POIKILOCYTES 1+ /hpf 10/20/2024 12:23 PM CDT [employer] LABORATORY SERVICES - . [facility] MACROCYTES 2+ /hpf 10/20/2024 12:23 PM CDT [facility] LABORATORY SERVICES - [facility] OVALOCYTES 1+ /hpf 10/20/2024 12:23 PM CDT [facility] - [facility] Blood Collection / Unknown 10/20/2024 11:56 AM CDT 10/20/2024 12:02 PM CDT us Aviva Humphries MD HEMATOLOGY ORDERABLES COM Fin al Result [facility] LABORATORY SERVICES - [facility] CLIA# [id number] [address] [place] [address] * (ABNORMAL) URINALYSIS WITH REFLEX MICROSCOPIC (10/05/2024 1:36 PM FINANCIAL CONTROLLER) COLOR UA Yellow Pale to Dark Yellow 10/05/2024 2:10 PM FINANCIAL CONTROLLER [employer] LABORATORY SERVICES - [facility] CLARITY UA Clear Clear 10/05/2024 2:10 PM FINANCIAL CONTROLLER [employer] LABORATORY SERVICES - [facility] SPECIFIC GRAVITY UA 1.010 1.003 - 1.035 10/05/2024 2:10 PM [facility] LABORATORY [facility] PH UA 6.0 5.0 - 8.0 10/05/2024 2:10 PM [facility] LABORATORY [facility] LEUKOCYTE ESTERASE UA 1+(A) Negative 10/05/2024 2:10 PM FINANCIAL CONTROLLER [employer] LABORATORY [facility] NITRITE UA Negative Negative 10/05/2024 2:10 PM FINANCIAL CONTROLLER [employer] LABORATORY [facility] PROTEIN UA Negative Negative 10/05/2024 2:10 PM [facility] GLUCOSE UA Negative Negative 10/05/2024 2:10 PM [employer]CIAL CONTR[employer] [facility] KETONES UA Negative Negative 10/05/2024 2:10 PM FINANCIAL CONTROLLER [employer] LABORATORY [facility] UROBILINOGEN UA Normal <2.0 mg/dL 2:10 PM [employer]ANCIAL [employer] LAB[facility] BILIRUBIN UA Negative Negative 10/05/2024 2:10 PM [employer]CIAL [employer] [facility] BLOOD UA Negative Negative 10/05/2024 2:10 PM FIN[employer]CIAL [employer] [facility]ORAT[facility] WBC UA 11-25(A) 0 - 2 /hpf 10/05/2024 2:10 PM FINANCIAL CONTRO[employer] LABORATORY SERVICES - [facility] RBC UA 0-2 0 - 2 /hpf 10/05/2024 2:10 PM [employer]ANCIAL [employer] LABORATORY SERVICES - [facility] BACTERIA UA 1+(A) Negative /hpf 10/05/2024 2:10 PM FINANCIAL CONTROLLER [facility] LAB[facility] EPITHELIAL CELLS, URINE 0-5 0 - 5 /hpf 10/05/2024 2:10 PM FINANCIAL CONTROLLER [facility] LABORATORY [facility] - [facility] TRANSITIONAL EPI 0-2 0 - 2 /hpf 10/05/19 2:10 PM FINANCIAL CONTROLLER [facility] Urine URINE SPECIMEN OBTAINED BY CLEAN CATCH PROCEDURE / Unknown Collection / Unknown 10/05/2024 1:36 PM FINANCIAL CONTROLLER 10/05/2024 1:55 PM FINANCIAL CONTROLLER us Aviva Humphries MD URINE ORDERABLES Final Result [id number] [facility] [place] [id number] * XR CHEST PA OR AP 1 VW (09/13/2024 4:01 PM FINANCIAL CONTROLLER) Only the most recent of5 resultswithin the time period is included. Anatomical Region Laterality Modality Chest Computed Radiogr aphy 09/13/2024 4:03 PM FINANCIAL CONTROLLER Impressions 09/13/2024 4:16 PM FINANCIAL CONTROLLER IMPRESSION: Stable/unchanged trace left pneumothorax with chest tube clamped. Narrative 09/13/2024 4:16 PM FINANCIAL CONTROLLER PROCEDURE/EXAM(S): XR CHEST PA OR AP 1 VW PROVIDED CLINICAL HISTORY/INDICATION: Female of 63 years age. Pneumothorax. Pulmonary nodule. DICTATION LOCATION: Location [address] [place] [address] COMPARISON STUDIES: 09/13/2024. FINDINGS: Stable/unchanged trace left pneumothorax with chest tube clamped. Procedure Note Casie Rajput MD - 09/13/2024 PROCEDURE/EXAM(S): XR CHEST PA OR AP 1 VW PROVIDED CLINICAL HISTORY/INDICATION: Female of 63 years age. Pneumothorax. Pulmonary nodule. DICTATION LOCATION: [address] COMPARISON STUDIES: 09/13/2024. FINDINGS: Stable/unchanged trace left pneumothorax with chest tube clamped. IMPRESSION: Stable/unchanged trace left pneumothorax with chest tube clamped. us Casie Rajput MD DIAGNOSTIC IMAGING ORDERABLES Final Result * CT GUIDED NEEDLE PLACEMENT (09/12/2024 3:04 PM FINANCIAL CONTROLLER) Anatomical Region Laterality Modality Computed Tomogra phy 09/12/2024 3:05 PM FINANCIAL CONTROLLER Impressions 09/12/2024 3:14 PM FINANCIAL CONTROLLER IMPRESSION: Successful percutaneous chest tube for postbiopsy pneumothorax. DICTATION LOCATION: Location [address] [place] [address] The examination was performed with the adjustment of mA according to the patient size and/or the use of Iterative Reconstruction Technique. Narrative 09/12/2024 3:[address] GUIDED LEFT CHEST TUBE PLACEMENT TIME/DATE: 09/12/2024 3:04 PM. CLINICAL INFORMATION & INDICATION: Female of 63 years age presenting for placement of chest tube for postbiopsy pneumothorax. IR: Tito Schmidt M.D. CONSENT: The indications, procedures, benefits, and risks (including but not limited to infection and bleeding) were discussed with the patient/patient's proxy and informed consent was obtained per protocol. SEDATION: Local anesthetic with lidocaine 1%. TECHNIQUE: Patient identification and preprocedural timeout was performed per protocol. Maximum sterile technique was utilized for all aspects of the procedure. CT imaging of the chest was performed. The overlying subcutaneous tissues were infiltrated with local anesthetic and the pleural space was accessed percutaneously with a [address] guidance. The tract was dilated over a guidewire and a 12 Ghanaian chest tube was placed. CT imaging was performed to confirm catheter positioning. The chest tube was secured to the patient and connected to a pleural evacuation system. At the end of the procedure, a sterile dressing was applied. The patient tolerated the procedure well. MEDICATIONS: Fentanyl [address] DOSE LENGTH PRODUCT: 833.3 mGy-cm ESTIMATED BLOOD LOSS: 10 mL COMPLICATIONS: None FINDINGS: Preprocedural CT imaging demonstrates a safe percutaneous path to the left pneumothorax. Completion CT imaging demonstrates appropriately positioned chest tube and decreased pneumothorax. Procedure Note Mitchell Schmidt MD - 09/12/2024 CT GUIDED LEFT CHEST TUBE PLACEMENT TIME/DATE: 09/12/2024 3:04 PM. CLINICAL INFORMATION & INDICATION: Female of 63 years age presenting for placement of chest tube for postbiopsy pneumothorax. IR: Tito Schmidt M.D. CONSENT: The indications, procedures, benefits, and risks (including but not limited to infection and bleeding) were discussed with the patient/patient's proxy and informed consent was obtained per protocol. SEDATION: Local anesthetic with lidocaine 1%. TECHNIQUE: Patient identification and preprocedural timeout was performed per protocol. Maximum sterile technique was utilized for all aspects of the procedure. CT imaging of the chest was performed. The overlying subcutaneous tissues were infiltrated with local anesthetic and the pleural space was accessed percutaneously with a [address] guidance. The tract was dilated over a guidewire and a 12 Ghanaian chest tube was placed. CT imaging was performed to confirm catheter positioning. The chest tube was secured to the patient and connected to a pleural evacuation system. At the end of the procedure, a sterile dressing was applied. The patient tolerated the procedure well. MEDICATIONS: Fentanyl [address] DOSE LENGTH PRODUCT: 833.3 mGy-cm ESTIMATED BLOOD LOSS: 10 mL COMPLICATIONS: None FINDINGS: Preprocedural CT imaging demonstrates a safe percutaneous path to the left pneumothorax. Completion CT imaging demonstrates appropriately positioned chest tube and decreased pneumothorax. IMPRESSION: Successful percutaneous chest tube for postbiopsy pneumothorax. DICTATION LOCATION: Location [address] [place] [address] The examination was performed with the adjustment of mA according to the patient size and/or the use of Iterative Reconstruction Technique. us Mitchell Schmidt MD CT ORDERABLES Final R esult * CT GUIDED BIOPSY (09/12/2024 9:05 AM FINANCIAL CONTROLLER) Anatomical Region Laterality Modality Computed Tomogra phy 09/12/2024 8:38 AM FINANCIAL CONTROLLER Impressions 09/12/2024 10:32 AM FINANCIAL CONTROLLER IMPRESSION: Successful left lung lesion biopsy. DICTATION LOCATION: Location [address] [place] [address] The examination was performed with the adjustment of mA according to the patient size and/or the use of Iterative Reconstruction Technique. Narrative 09/12/2024 10:[address] GUIDED LEFT LUNG BIOPSY TIME/DATE: 09/12/2024 9:05 AM. CLINICAL INFORMATION/INDICATION: Female of 63 years age presents for biopsy of lung nodule. IR: Tito Schmidt M.D. CONSENT: The indications, procedures, benefits, and risks (including but not limited to infection and bleeding) were discussed with the patient/patient's proxy and informed consent was obtained per protocol. SEDATION: Local anesthetic with lidocaine 1%. TECHNIQUE: Patient identification and preprocedural timeout was performed per protocol. Maximum sterile technique was utilized for all aspects of the procedure. CT imaging of the chest was performed. The overlying subcutaneous tissues were infiltrated with local anesthetic and the left upper lobe nodule was accessed with a 19 gauge biopsy trocar using CT guidance. A biopsy device was used to obtain multiple 20 gauge cores through the trocar using a coaxial technique. At the end of the procedure, the devices were removed and a sterile dressing was applied. The patient tolerated the procedure well. MEDICATIONS/DRUGS: None CT DOSE LENGTH PRODUCT: 1146.5 mGy-cm ESTIMATED BLOOD LOSS: 3 mL COMPLICATIONS: None FINDINGS: CT images before biopsy show a safe biopsy path to the left upper lobe nodule. CT images during biopsy show a biopsy trocar well positioned at the targeted lesion. Postbiopsy CT images demonstrate no evidence of immediate complication. Procedure Note Mitchell Schmidt MD - 09/12/2024 CT GUIDED LEFT LUNG BIOPSY TIME/DATE: 09/12/2024 9:05 AM. CLINICAL INFORMATION/INDICATION: Female of 63 years age presents for biopsy of lung nodule. IR: Tito Schmidt M.D. CONSENT: The indications, procedures, benefits, and risks (including but not limited to infection and bleeding) were discussed with the patient/patient's proxy and informed consent was obtained per protocol. SEDATION: Local anesthetic with lidocaine 1%. TECHNIQUE: Patient identification and preprocedural timeout was performed per protocol. Maximum sterile technique was utilized for all aspects of the procedure. CT imaging of the chest was performed. The overlying subcutaneous tissues were infiltrated with local anesthetic and the left upper lobe nodule was accessed with a 19 gauge biopsy trocar using CT guidance. A biopsy device was used to obtain multiple 20 gauge cores through the trocar using a coaxial technique. At the end of the procedure, the devices were removed and a sterile dressing was applied. The patient tolerated the procedure well. MEDICATIONS/DRUGS: None CT DOSE LENGTH PRODUCT: 1146.5 mGy-cm ESTIMATED BLOOD LOSS: 3 mL COMPLICATIONS: None FINDINGS: CT images before biopsy show a safe biopsy path to the left upper lobe nodule. CT images during biopsy show a biopsy trocar well positioned at the targeted lesion. Postbiopsy CT images demonstrate no evidence of immediate complication. IMPRESSION: Successful left lung lesion biopsy. DICTATION LOCATION: Location 1 - [facility] The examination was performed with the adjustment of mA according to the patient size and/or the use of Iterative Reconstruction Technique. Edilia Pettit CT ORDERABLES Final Result * PATHOLOGY (09/12/2024 8:59 AM FINANCIAL CONTROLLER) CASE REPORT Surgical Pathology Report Case: [id number] Authorizing Provider: Mitchell Schmidt MD Collected: 09/12/2024 08:59 AM Ordering Location: [facility] Received: 09/13/2024 07:27 AM [facility] Pathologist: Jonathon Hernandez MD Specimen: Lung, left, left lung biopsy 4:36 PM [facility] FINAL DIAGNOSIS Lung, left, biopsy: - Benign lung parenchyma, with thickened and fibrotic alveolar septa, patchy mild chronic inflammation, scattered hemosiderin-laden macrophages and focal organizing pneumonia (see microscopic description). 4:36 PM [facility] at 1636 FINANCIAL CONTROLLER GROSS DESCRIPTION Received in one container labeled Novemberye Tiarra and left lung biopsy are 3 cancino-calhoun tissue cores measuring 0.8, 0.7 and 1.4 cm in length x less than 0.1 cm in diameter. All are submitted in cassettes A1 and A2. [facility] 4:36 PM [facility] Int[employer] [facility] MICROSCOPIC DESCRIPTION Received are slides labeled [id number], Tiarra, November. The submitted left lung biopsy contains 3 cores of benign lung parenchyma, with focally thickened and fibrotic alveolar septa, patchy mild chronic inflammation, scattered hemosiderin-laden macrophages and focal fibroblastic plugs within the alveolar spaces (reflective of focal organizing pneumonia). The intervening epithelium appears to consists of mildly atypical, but reactive appearing alveolar lung parenchyma. Definite malignancy is not appreciated (supported by pancytokeratin, TTF-1, PAX8 and ER staining pattern). While the above findings may correspond to the radiographic noted lesion, the possibility that this tissue represents reactive lung parenchyma adjacent to more significant lesion cannot be entirely excluded. Clinical correlation with appropriate follow-up is recommended. A deeper level of each block was examined. 5 4:36 PM [facility] OPERATIVE PROCEDURE left lung biopsy 5 4:36 PM [facility] CLINICAL INFORMATION left lung biopsy 5 4:36 PM [facility] COMMENT Special stain, immunohistochemical, and/or in situ hybridization results are interpreted with controls that demonstrate appropriate staining reactions. Note on use of immunohistochemistry reagents and in situ hybridization probes: These tests were developed and their performance characteristics determined by [facility] Department of Laboratory Medicine. It has not [...] part or completely in the following laboratories: [facility], CLIA #[id number] [address] [place] [address] [facility], [place] #[id number] [address] [place] [address] [facility], CLIA #[id number] [address] [place] [address] This report was created with the [employer] voice-activated dictation system. Inherent to this system is the possibility of syntax, grammar, punctuation and other errors that could impact the interpretation of the report. If there are interpretative questions about aspects of this report, please contact the performing pathologist. 5 4:36 PM [facility] Tissue SPECIMEN FROM LUNG / Unknown Collection / Unknown 09/12/2024 8:59 AM FINANCIAL CONTROLLER 09/13/2024 7:27 AM FINANCIAL CONTROLLER Comment:left lung biopsy us Mitchell Schmidt MD PATHOLOGY/CYTOLOGY JASVIR JAUREGUI Final Result [facility] CLIA# [id number] [address] [place] [address] from Last 3 Months Insurance AETNA CHOICE POS II AETNA CHOICE POS II RX [employer] (INTERNAL) [facility] RX [facility] [employer] Advance Directives For more information, please contact: [phone] * Full Code (Latest Code Status on File) Date Activated Date Inactivated Comments 09/12/2024 5:54 PM 09/13/2024 8:26 PM * Full Code Date Activated Date Inactivated Comments 08/07/2023 12:31 AM 08/12/2023 6:27 PM * Full Code Date Activated Date Inactivated Comments 08/06/2023 12:44 PM 08/07/2023 12:31 AM Care Teams Economic Analysis Director Relationship Specialty Start Date End Date Shilo Soares MD [address] [place] [address] [phone] PCP - General Internal Medicine 04/24/23
[2024-12-03 09:42] LABS: Alanine Aminotransferase 33 U/L (6-35); Albumin Level 4.5 g/dL (3.5-5.1); Alkaline Phosphatase 79 U/L (38-126); Anion Gap 5 mmol/L (4-12); Aspartate Amino Transferase 32 U/L (14-36); Bilirubin,Total 0.6 mg/dL (0.2-1.3); Blood Urea Nitrogen 9 mg/dL (7-17); Calcium 9.3 mg/dL (8.4-10.2); Carbon Dioxide 33 mmol/L (22-30); Chloride 104 mmol/L (98-107); Cholesterol 159 mg/dL (0-200); Estimated Glomerular Filt Rate 56; Glucose 98 mg/dL (65-110); HDL Direct 57 mg/dL; Potassium 4.3 mmol/L (3.4-5.0); Sodium 142 mmol/L (137-145); Triglycerides 104 mg/dL (<150)
[2024-12-03 09:54] LABS: LDL Cholesterol Direct 64 mg/dL
== END 2024-12-03 08:33 | disposition home or self-care (01) ==
LOC: ANHLAB 08:34
PROVIDERS: PCP Emergency Medicine; Visit Provider Emergency Medicine
DX: E78.5 Hyperlipidemia, unspecified (principal)
CPT/HCPCS: 36415; 80053; 80061

== ENCOUNTER 2025-02-14 15:58 | Outpatient (CLI) | payer OTHER, SELFPAY ==
--- NOTE | ~2025-02-14 | XR_ITS ---
HISTORY: M25.511 - Pain in right shoulder COMPARISON: None TECHNIQUE: 2 views of the right shoulder were performed FINDINGS: No acute fracture. The glenohumeral and acromioclavicular joint space is maintained. Right internal jugular central venous power port catheter identified with its tip projecting over the cavoatrial junction. The remainder of the visualized portion of the adjacent right lung is otherwise clear. The humeral head is well seated within the glenoid fossa. IMPRESSION: No acute fracture or anterior dislocation. Reviewed, dictated and finalized at location A.
--- OUTSIDE RECORDS SUMMARY | 2025-02-14 16:02 | XMS_ITS | Clinical Summary ---
Author Organization [facility] Address [address] [place] [id number] Care Team Providers Care [employer] Teacher Name Role Phone Unavailable Primary Care Provider [...] 4:32 PM CDT Height 167.6 cm (5' 6) 11/01/2013 4:32 PM CDT Body Mass Index 19.21 11/01/2013 4:32 PM CDT Plan of Treatment Health Maintenance Due Date Last Done Comments Colorectal Cancer Screening Colonoscopy (10 Years) 1960 Hepatitis C 11/26/1977 DTaP, Tdap and Td Vaccines ( 1 - Tdap) 11/26/1978 Mammogram Screening 1999 Pneumococcal Vaccine: 50+ Ye ars (1 of 1 - PCV) 11/26/2009 Zoster Vaccines (1 of 2) 11/26/2009 COVID-19 Vaccine ( - 2023-2 5 season) 2024 Dexa Scan (General) 11/26/2024 RSV Immunization or 60+ Years (1 - 1-dose 75+ series) 11/26/2034 Meningococcal B Vaccine Aged Out No l onger eligible based on patient's age to complete this topic Meningococcal Vaccine Aged Out No trav ketan eligible based on patient's age to complete this topic RSV Immunizations Under 20 Months Aged Out No longer eligible based on patient's age to complete this topic
--- OUTSIDE RECORDS SUMMARY | 2025-02-14 16:02 | XMS_ITS | Clinical Summary ---
Author Organization [facility] Marlon Swanson Address [address] [place] [address] Care Team Providers Care Sole Scraper Name Role Phone Shilo Soares MD Primary Care Provider [phone] Allergies Active Allergy Reactions Criticality Noted Date Comments Ciprofloxacin Rash Low 04/24/2023 Penicillins Rash Medium 04/19/2021 Medications albuterol sulfate HFA 90 mcg/actuation aerosol inhaler Take 1 Puff by inhalation every 6 hours as needed. 04/08/20 21 Active atorvastatin (LIPITOR) 20 mg tablet Take 20 mg by mouth daily at bedtime. 02/27/20 21 Active fluticasone propionate (FLONASE) 50 mcg/spray [place], Suspension nasal inhaler Administer 2 Sprays in [...] MOUTH 2 TIMES A DAY 120 Tablet 2 12/23/19 25 Active Active Problems Problem Noted Date [...] Encounters Date Type Department Care Team Description 02/14/2025 External Device Data [facility] Provider, Abstract 02/13/2025 External Device Data [facility] Provider, Abstract 02/12/2025 External Device Data [facility] Provider, Abstract 02/11/2025 External Device Data [facility] Provider, Abstract 02/10/2025 External Device Data [facility] Provider, Abstract 02/09/2025 External Device Data [facility] Provider, Abstract 02/08/2025 External Device Data [facility] Provider, Abstract 02/07/2025 External Device Data [facility] Provider, Abstract 02/06/2025 External Device Data [facility] Provider, Abstract 02/05/2025 External Device Data [facility] Provider, Abstract 02/04/2025 External Device Data [facility] Provider, Abstract 02/03/2025 External Device Data [facility] Provider, Abstract 02/02/2025 External Device Data [facility] Provider, Abstract 02/01/2025 3:20 PM CDT - 02/01/2025 11:59 PM CDT Hospital Encounter [facility] 2nd Tx [address] [place] [address] Aviva Humphries MD Infusion Chair 10, 2nd Floor Hall Discharge Disposition: Home or Self Care 02/01/2025 3:00 PM CDT Office Visit [facility] [place] [address] [place] [address] Aviva Humphries MD Maintenance antineoplastic chemotherapy (Primary Dx); Malignant neoplasm of ovary, unspecified laterality (CMS/HCC); Chemotherapy-induced fatigue; Pulmonary nodule 02/01/2025 1:30 PM CDT - 02/01/2025 11:59 PM CDT Hospital Encounter [facility] 2nd Fl [address] [place] [address] Aviva Humphries MD Discharge Disposition: Home or Self Care 02/01/2025 External Device Data [facility] Provider, Abstract 01/31/2025 External Device Data [facility] Provider, Abstract 01/30/2025 External Device Data [facility] Provider, Abstract 01/29/2025 External Device Data [facility] Provider, Abstract 01/28/2025 External Device Data [facility] Provider, Abstract 01/27/2025 External Device Data [facility] Provider, Abstract 01/26/2025 External Device Data [facility] Provider, Abstract 01/25/2025 External Device Data [facility] Provider, Abstract 01/24/2025 External Device Data [facility] Provider, Abstract 01/24/2025 External Device Data [facility] Provider, Abstract 01/23/2025 External Device Data [facility] Provider, Abstract 01/22/2025 External Device Data [facility] Provider, Abstract 01/21/2025 External Device Data [facility] Provider, Abstract 01/20/2025 External Device Data [facility] Provider, Abstract 01/19/2025 External Device Data [facility] Provider, Abstract 01/18/2025 External Device Data [facility] Provider, Abstract 01/17/2025 External Device Data [facility] Provider, Abstract 01/16/2025 External Device Data [facility] Provider, Abstract 01/15/2025 External Device Data [facility] Provider, Abstract 01/14/2025 External Device Data [facility] Provider, Abstract 01/13/2025 External Device Data [facility] Provider, Abstract 01/12/2025 External Device Data [facility] Provider, Abstract 01/11/2025 External Device Data [facility] Provider, Abstract 01/10/2025 External Device Data [facility] Provider, Abstract 01/09/2025 External Device Data [facility] Provider, Abstract 01/08/2025 External Device Data [facility] Provider, Abstract 01/07/2025 External Device Data [facility] Provider, Abstract 01/05/2025 1:07 PM CDT - 01/05/2025 11:59 PM CDT Hospital Encounter [facility] 2nd Fl [address] [place] [address] Edilia Pettit NP Infusion Chair 9, 2nd Floor Aviva Garcia MD Discharge Disposition: Home or Self Care 01/05/2025 1:00 PM CDT Office Visit [facility] [address] [place] [address] Edilia Pettit NP Maintenance antineoplastic chemotherapy (Primary Dx); Malignant neoplasm of ovary, unspecified laterality (CMS/HCC) 01/05/2025 10:45 AM CDT - 01/05/2025 11:59 PM CDT Hospital Encounter [facility] 2nd Fl [address] [place] [address] Aviva Humphries MD Discharge Disposition: Home or Self Care 12/29/2024 External Device Data [facility] Provider, Abstract 12/29/2024 Results Follow-Up [facility] [address] [facility] [address] [place] [address] Edilia Pettit NP CBC WITH DIFFERENTIAL 12/29/2024 External Device Data [facility] Provider, Abstract 12/28/2024 External Device Data [facility] Provider, Abstract 12/27/2024 External Device Data [facility] Provider, Abstract 12/23/[address] [facility] [address] [place] [address] Edilia Pettit NP Maintenance antineoplastic chemotherapy (Primary Dx) 12/23/2024 Results Follow-Up [facility] [address] [place] [address] Edilia Pettit NP COMPREHENSIVE METABOLIC PANEL, CBC WITH DIFFERENTIAL 12/22/2024 Results Follow-Up [facility] [address] [place] [address] CHEST ABDOMEN PELVIS W CONT 12/22/[address] [facility] [address] [place] [address] Aviva Humphries MD 12/20/2024 1:13 PM CDT - 12/20/2024 11:59 PM CDT Hospital Encounter [facility] Scan [address] [place] [address] Aviva Humphries MD Discharge Disposition: Home or Self Care 12/15/2024 1:38 PM CDT - 12/15/2024 11:59 PM CDT Hospital Encounter [facility] 2nd Fl [address] [place] [address] Aviva Humphries MD Infusion Chair 7, 2nd Floor [facility] Discharge Disposition: Home or Self Care 12/14/2024 3:15 PM CDT Office Visit [facility] [address] [place] [address] Aviva Humphries MD Maintenance antineoplastic chemotherapy (Primary Dx); Malignant neoplasm of ovary, unspecified laterality (CMS/HCC); Chemotherapy-induced fatigue 12/14/2024 1:45 PM CDT - 12/14/2024 11:59 PM CDT Hospital Encounter [facility] Infusion Center 2nd Fl [address] [place] [address] Aviva Humphries MD Discharge Disposition: Home or Self Care 12/06/[address] [facility] [address] [facility] [address] [place] [address] Aviva Humphries MD 12/06/[address] [facility] [place] [address] [place] [address] Aviva Humphries MD 12/01/2024 Results Follow-Up [facility] [address] [facility] [address] [place] [address] Edilia Pettit NP COMPREHENSIVE METABOLIC PANEL 11/24/2024 1:19 PM CDT - 11/24/2024 11:59 PM CDT Hospital Encounter [facility] Infusion Center 2nd Fl [address] [place] [address] Edilia Pettit NP Infusion Chair 10, 2nd Floor Hall Discharge Disposition: Home or Self Care 11/24/2024 1:00 PM CDT Office Visit [facility] [address] [facility] [address] [place] [address] Edilia Pettit NP Malignant neoplasm of ovary, unspecified laterality (CMS/HCC) (Primary Dx); Elevated serum creatinine; Maintenance antineoplastic chemotherapy 11/24/2024 11:15 AM CDT - 11/24/2024 11:59 PM CDT Hospital Encounter [facility] Infusion Center 2nd Fl [address] [place] [address] Aviva Humphries MD Discharge Disposition: Home or Self Care 11/24/2024 Results Follow-Up [facility] [address] [facility] [address] [place] [address] Edilia Pettit NP URINALYSIS WITH REFLEX CULTURE, CBC WITH DIFFERENTIAL, COMPREHENSIVE METABOLIC PANEL 11/22/2024 External Device Data [facility] Provider, Abstract 11/22/2024 External Device Data [facility] Provider, Abstract 11/21/[address] [facility] [address] [place] [address] Edilia Pettit NP Maintenance antineoplastic chemotherapy from Last 3 Months Family History Medical [...] who hurts you emotionally and/or physically? No 01/05/2025 Food Insecurity Answer Date Recorded Patient needs [...] Sign Reading Time Taken Comments Blood Pressure 158/90 02/01/2025 2:51 PM CDT Pulse 91 02/01/2025 2:51 PM CDT Temperature 36.7 C (98 F) 02/01/2025 2:51 PM CDT Respiratory Rate 16 12/15/2024 2:14 PM CDT Oxygen Saturation 94% 02/01/2025 2:51 PM CDT Inhaled Oxygen Concentration - - Weight 52.8 kg (116 lb 6.4 oz) 02/01/2025 2:51 P M CDT Height 167.6 cm (5' 6) 02/01/2025 2:51 PM CDT Body Mass Index 18.79 02/01/2025 2:51 PM CDT Plan of Treatment Upcoming Encounters Date Type Department Care Team (Late st Contact Info) Description 02/22/2025 1:00 PM CDT Appointment [facility] 2nd Tx [address] [place] [address] Aviva Humphries MD [address] [place] [address] Infusion Chair 2, 2nd Floor Hall 03/24/2025 2:30 PM CDT Appointment [facility] Scan [address] [facility] [address] [place] [address] Aviva Humphries MD [address] [facility] [place] [address] Health Maintenance Due Date Last Done Comments [...] - Risk 60-74 years 1-dose series) 2019 OSTEOPOROSIS SCREENING 11/26/2024 INFLUENZA VACCINE (#1) 2025 Medical Devices Implanted Type Area Operating Room Orderly Device Identifier Shelf Expiration Date Model / Serial / Lot Hemostat Lanette Ah Powder 3gm [id number] - [id number] Implanted:Qt y: 1 on 08/06/2023 by Aviva Humphries MD at [facility] Hemostatic N/A: Abdomen BARD DAVOL [id number] 12/06/2027 [id number] / / [id number] Hemostat Lanette Ah Powder 3gm [id number] - [id number] Implanted:Qt y: 1 on 08/06/2023 by Aviva Humphries MD at [facility] Hemostatic N/A: Abdomen BARD DAVOL [id number] 12/06/2027 [id number] / / [id number] Port- 023 Implanted:Qt y: 1 on 05/25/2023 by Casie Rajput MD Right: Chest Wall 01/07/2025 [id number] / / [id number] Description:BARD 8FR SLIM PO [place] IMPLANTED INTO RIGHT CHEST WALL ON 05/25/[address] RAJPUT Procedures Procedure Name Priority Date/Time Associated Diagnosis Comments DIFFERENTIAL, MANUAL Stat 02/01/2025 1:42 PM CDT Malignant neoplasm of ovary, unspecified laterality (CMS/HCC) COMPREHENSIVE METABOLIC PANEL Stat 02/01/2025 1:42 PM CDT Malignant neoplasm of ovary, unspecified laterality (CMS/HCC) CBC WITH DIFFERENTIAL Stat 02/01/2025 1:42 PM CDT Malignant neoplasm of ovary, unspecified laterality (CMS/HCC) URINALYSIS WITH REFLEX CULTURE Stat 02/01/2025 1:42 PM CDT Malignant neoplasm of ovary, unspecified laterality (CMS/HCC) CANCER ANTIGEN 125 Routine 02/01/2025 1: 42 PM CDT Malignant neoplasm of ovary, unspecified laterality (CMS/HCC) URINE CULTURE Routine 02/01/2025 1:42 PM CDT Malignant neoplasm of ovary, unspecified laterality (CMS/HCC) URINALYSIS W/REFLEX MICROSCOPIC Stat 01/05/2025 11:56 AM CDT Malignant neoplasm of ovary, unspecified laterality (CMS/HCC) COMPREHENSIVE METABOLIC PANEL Stat 01/05/2025 11:53 AM CDT Malignant neoplasm of ovary, unspecified laterality (CMS/HCC) CBC WITH DIFFERENTIAL Stat 01/05/2025 11:53 AM CDT Malignant neoplasm of ovary, unspecified laterality (CMS/HCC) CANCER ANTIGEN 125 Routine 01/05/2025 11 :53 AM CDT Malignant neoplasm of ovary, unspecified laterality (CMS/HCC) CBC WITH DIFFERENTIAL Routine 12/28/2024 3:06 PM CDT Maintenance antineoplastic chemotherapy CBC WITH DIFFERENTIAL Routine 12/22/2024 3:24 PM CDT Maintenance antineoplastic chemotherapy COMPREHENSIVE METABOLIC PANEL Routine 12/22/2024 3:24 PM CDT Maintenance antineoplastic chemotherapy CT CHEST ABDOMEN PELVIS W CONT Routine 12/20/2024 2:20 PM CDT Malignant neoplasm of ovary, unspecified laterality (CMS/HCC) EXTRA TUBE Stat 12/14/2024 2:00 PM CDT COMPREHENSIVE METABOLIC PANEL Stat 12/14/2024 2:00 PM CDT Malignant neoplasm of ovary, unspecified laterality (CMS/HCC) CBC WITH DIFFERENTIAL Stat 12/14/2024 2:00 PM CDT Malignant neoplasm of ovary, unspecified laterality (CMS/HCC) CANCER ANTIGEN 125 Routine 12/14/2024 2: 00 PM CDT Malignant neoplasm of ovary, unspecified laterality (CMS/HCC) URINALYSIS WITH REFLEX CULTURE Stat 12/14/2024 2:00 PM CDT Malignant neoplasm of ovary, unspecified laterality (CMS/HCC) CBC WITH DIFFERENTIAL Routine 11/30/2024 3:17 PM [...] Malignant neoplasm of ovary, unspecified laterality (CMS/HCC) from Last 3 Months Results * MANUAL DIFFERENTIAL (02/01/2025 1:42 PM CDT) PLATELET EST. Consistent w Count 02/01/2025 2:24 PM CDT [employer] [facility] - . [facility] ANISOCYTOSIS 1+ /hpf 02/01/2025 2:24 PM CDT [facility] [employer] [facility] - . [facility] POIKILOCYTES 1+ /hpf 02/01/2025 2:24 PM CDT [facility] [employer] [facility] - . [facility] MACROCYTES 2+ /hpf 02/01/2025 2:24 PM CDT [facility] Blood Collection / Unknown 02/01/2025 1:42 PM CDT 02/01/2025 1:54 PM CDT Edilia Ptetit NP HEMATOLOGY ORDERABLES COM Final Result [facility] - [facility] YURI# [id number] [address] [place] [address] * (ABNORMAL) URINALYSIS WITH REFLEX CULTURE (02/01/2025 1:42 PM CDT) Only the most recent of3 resultswithin the time period is included. COLOR UA Colorless(A ) Pale to Dark Yellow 02/01/2025 2:08 PM CDT [employer] [facility] - [facility] CLARITY UA Clear Clear 02/01/2025 2:08 PM CDT [facility] - [facility] SPECIFIC GRAVITY UA 1.002(L) 1.003 - 1.035 02/01/2025 2:08 PM CDT [employer] [facility] - [facility] PH UA 6.0 5.0 - 8.0 02/01/2025 2:08 PM CDT [employer] [facility] - [facility] LEUKOCYTE ESTERASE UA 1+(A) Negative 02/01/2025 2:08 PM CDT [employer] [facility] - [facility] NITRITE UA Negative Negative 02/01/2025 2:08 PM CDT [employer] [facility] - [facility] PROTEIN UA Negative Negative 02/01/2025 2:08 PM CDT [facility] - [facility] GLUCOSE UA Negative Negative 02/01/2025 2:08 PM CDT [employer] [facility] - [facility] KETONES UA Negative Negative 02/01/2025 2:08 PM CDT [employer] [facility] - [facility] UROBILINOGEN UA Normal <2.0 mg/dL 2:08 PM CDT [employer] [facility] - [facility] BILIRUBIN UA Negative Negative 02/01/2025 2:08 PM CDT [employer] [facility] - [facility] BLOOD UA Negative Negative 02/01/2025 2:08 PM CDT [facility] [employer] [facility] - [facility] WBC UA 0-2 0 - 2 /hpf 02/01/2025 2:08 PM CDT [facility] [employer] [facility] - [facility] RBC UA 0-2 0 - 2 /hpf 02/01/2025 2:08 PM CDT [facility] BACTERIA UA 1+(A) Negative /hpf 02/01/2025 2:08 PM T [facility] Urine URINE SPECIMEN OBTAINED BY CLEAN CATCH PROCEDURE / Unknown Collection / Unknown 02/01/2025 1:42 PM CDT 02/01/2025 1:56 PM CDT [facility] - 02/01/2025 2:08 PM CDT Based on results, a urine culture has been reflexed. Edilia Pettit NP URINE ORDERABLES Final Result [facility]# [id number] [address] [facility] [place] [place] [address] * (ABNORMAL) CBC WITH DIFFERENTIAL (02/01/2025 1:42 PM CDT) Only the most recent of7 resultswithin the time period is included. WBC 4.5 4.0 - 9.8 K/uL 02/01/2025 2:09 PM [facility] RBC 3.52(L) 3.90 - 4.90 M/uL 02/01/2025 2:09 PM [facility] HEMOGLOBIN 12.7 11.8 - 14.8 g/dL 02/01/2025 2:09 PM [facility] HEMATOCRIT 37.7 35.5 - 44.0 % 02/01/2025 2:09 PM [facility] MCV 107.1(H) 82.0 - 99.0 fL 02/01/2025 2:09 PM [facility] MCH 36.1(H) 27.2 - 32.6 pg 02/01/2025 2:09 PM [facility] MCHC 33.7 31.5 - 35.5 g/dL 02/01/2025 2:09 PM [facility] RDW 16.5(H) 11.5 - 14.5 % 02/01/2025 2:09 PM CDT [facility] [employer] [facility] - [facility] RDW-STDEV 65.3(H) 37.1 - 48.7 fL 02/01/2025 2:09 PM CDT [employer] [facility] - [facility] PLATELETS 175 140 - 350 K/uL 02/01/2025 2:09 PM CDT [facility] [employer] [facility] [facility] - [facility] MPV 9.2(L) 9.3 - 12.4 fL 02/01/2025 2:09 PM CDT [facility] [employer] [facility] - [facility] NEUTROPHILS 54 % 02/01/2025 2:09 PM CDT [facility] [employer] [facility] - . [facility] LYMPHOCYTES 38 % 02/01/2025 2:09 PM CDT [facility] [employer] [facility] - [facility] MONOCYTES 7 % 02/01/2025 2:09 PM CDT [facility] [employer] [facility] - [facility] EOSINOPHILS 1 % 02/01/2025 2:09 PM CDT [facility] [employer] [facility] - [facility] BASOPHILS 0 % 02/01/2025 2:09 PM CDT [facility] - . [facility] IMMATURE GRANULOCYTES 0 % 02/01/2025 2:09 PM CDT [facility] [employer] [facility] - [facility] NEUTROPHIL ABSOLUTE 2.40 1.90 - 7.00 K/uL 02/01/2025 2:09 PM CDT [facility] - . [facility] LYMPHOCYTE ABSOLUTE 1.70 0.70 - 4.50 K/uL 02/01/2025 2:09 PM CDT [facility] - . [facility] MONOCYTE ABSOLUTE 0.30 0.10 - 1.30 K/uL 02/01/2025 2:09 PM CDT [facility] - . [facility] EOSINOPHIL ABSOLUTE 0.04 0.00 - 0.70 K/uL 02/01/2025 2:09 PM CDT [facility] - . [facility] BASOPHILS ABSOLUTE 0.01 0.00 - 0.20 K/uL 02/01/2025 2:09 PM CDT [facility] - . [facility] IMMATURE GRANULOCYTES ABSOLUTE 0.01 0.00 - 0.03 K/uL 02/01/2025 2:09 PM CDT [facility] [employer] [facility] - [facility] Blood Collection / Unknown 02/01/2025 1:42 PM CDT 02/01/2025 1:54 PM CDT Edilia Pettit NP HEMATOLOGY ORDERABLES Final Resu lt Performing Organization Address City/[facility]/ZIP Co de Phone Number [facility] CLIA# [id number] [address] [place] [address] * URINE CULTURE (02/01/2025 1:42 PM CDT) Pathologist [facility] CULTURE No growth at 24 hours 02/02/2025 11:41 AM CDT [facility] Urine URINE SPECIMEN OBTAINED BY CLEAN CATCH PROCEDURE / Unknown Collection / Unknown 02/01/2025 1:42 PM CDT 02/01/2025 2:08 PM CDT Edilia Pettit NP MICROBIOLOGY - GENERAL ORDERABLE S Final Result Performing Organization Address [facility] Co de Phone Number [facility] CLIA# [id number] [address] [place] [address] * CANCER ANTIGEN 125 (02/01/2025 1:42 PM CDT) Only the most recent of4 resultswithin the time period is included. CA 125 6 <35 U/mL [facility] Comment: This test was performed using the Siemens Chemiluminescent method. Values obtained from different assay methods cannot be used interchangeably. CA 125 levels, regardless of value, should not be interpreted as absolute evidence of the presence or absence of disease. Test Performed at: [facility] [address] [place] [address] Radha Perez MD Blood 02/01/2025 1:42 PM CDT 02/01/2025 2:28 PM CDT Edilia Pettit NP CHEMISTRY ORDERABLES Final Resul t Performing Organization Address City/[facility]/ZIP Co de Phone Number [facility] [phone] [facility] [address] [place] [address] * (ABNORMAL) COMPREHENSIVE METABOLIC PANEL (02/01/2025 1:42 PM CDT) Only the most recent of6 resultswithin the time period is included. [facility] SODIUM 136 136 - 145 mmol/L 02/01/2025 2:42 PM CDT [facility] - [facility] POTASSIUM 3.7 3.5 - 5.0 mmol/L 02/01/2025 2:42 PM CDT [facility] - [facility] CHLORIDE 101 98 - 107 mmol/L 02/01/2025 2:42 PM CDT [facility] - [facility] CO2 25 22 - 29 mmol/L 02/01/2025 2:42 PM CDT [facility] - [facility] CALCIUM 9.3 8.6 - 10.2 mg/dL 02/01/2025 2:42 PM CDT [facility] - [facility] BUN 7(L) 8 - 23 mg/dL 02/01/2025 2:42 PM CDT [facility] - [facility] CREATININE 1.02(H) 0.51 - 0.95 mg/dL 02/01/2025 2:42 PM CDT [facility] - [facility] GLUCOSE 143(H) 74 - 99 mg/dL 02/01/2025 2:42 PM CDT [facility] - [facility] TOTAL PROTEIN 6.9 6.7 - 8.6 g/dL 02/01/2025 2:42 PM CDT [facility] - [facility] ALBUMIN 4.2 3.5 - 5.2 g/dL 02/01/2025 2:42 PM CDT [facility] - [facility] BILIRUBIN TOTAL 0.5 0.0 - 1.1 mg/dL 02/01/2025 2:42 PM CDT [facility] - [facility] ALKALINE PHOSPHATASE 91 35 - 104 U/L 02/01/2025 2:42 PM CDT [facility] AST 27 <33 U/L 02/01/2025 2:42 PM CDT [facility] ALT 27 <34 U/L 02/01/2025 2:42 PM CDT [facility] [employer] [facility] GFR >60 >=60 mL/min/1.7 3 sq meter 02/01/2025 2:42 PM T [facility] Comment:eGFR calculated with 2020 CKD-EPI equation. Vegetarian diet, extremely high or low muscle mass, and may affect results. Cystatin C with Glomerular Filtration Rate is a suitable alternative for these patients. ANION GAP 10 8 - 16 mmol/L 02/01/2025 2:42 PM T [facility] Blood Collection / Unknown 02/01/2025 1:42 PM CDT 02/01/2025 2:09 PM CDT [facility] - 02/01/2025 2:42 PM CDT Samples containing indocyanine green cause interferences on Total and/or Direct Bilirubin and must not be measured. Edilia Pettit NP CHEMISTRY ORDERABLES Final Resul t [facility] [employer] [facility]# [id number] [address] [address] * (ABNORMAL) URINALYSIS WITH REFLEX MICROSCOPIC (01/05/2025 11:56 AM CDT) COLOR UA Colorless(A ) Pale to Dark Yellow 01/05/2025 12:37 PM [facility] CLARITY UA Clear Clear 01/05/2025 12:37 PM [facility] SPECIFIC GRAVITY UA 1.002(L) 1.003 - 1.035 01/05/2025 12:37 PM [facility] PH UA 6.0 5.0 - 8.0 01/05/2025 12:37 PM [facility] LEUKOCYTE ESTERASE UA 1+(A) Negative 01/05/2025 12:37 PM [facility] NITRITE UA Negative Negative 01/05/2025 12:37 PM [facility] [employer] [facility] PROTEIN UA Negative Negative 01/05/2025 12:37 PM CDT [facility] GLUCOSE UA Negative Negative 01/05/2025 12:37 PM CDT [facility] KETONES UA Negative Negative 01/05/2025 12:37 PM CDT [facility] UROBILINOGEN UA Normal <2.0 mg/dL 12:37 PM T [facility] BILIRUBIN UA Negative Negative 01/05/2025 12:37 PM CDT [facility] BLOOD UA Negative Negative 01/05/2025 12:37 PM CDT [facility] WBC UA 3-5(A) 0 - 2 /hpf 01/05/2025 12:37 PM T [facility] RBC UA 0-2 0 - 2 /hpf 01/05/2025 12:37 PM T [facility] BACTERIA UA 1+(A) Negative /hpf 01/05/2025 12:37 PM T [facility] EPITHELIAL CELLS, URINE 0-5 0 - 5 /hpf 01/05/2025 12:37 PM T [facility] Urine URINE SPECIMEN OBTAINED BY CLEAN CATCH PROCEDURE / Unknown Collection / Unknown 01/05/2025 11:56 AM CDT 01/05/2025 12:22 PM CDT Aviva Humphries MD URINE ORDERABLES Final Result Performing Organization Address City/State/[facility] Co de Phone Number [facility]# [id number] [address] [facility] [place] [address] * CT CHEST ABDOMEN PELVIS W CONT (12/20/2024 2:20 PM CDT) Anatomical Region Laterality Modality Chest Computed Tomogra phy 12/20/2024 2:00 PM CDT Impressions 12/20/2024 4:05 PM CDT IMPRESSION: 1. Increased size of a right upper lobe pulmonary nodule. Otherwise stable disease. The examination was performed with the adjustment of mA according to the patient size and/or the use of Iterative Reconstruction Technique. DICTATION LOCATION: Location 1 - [facility] 12/20/2024 4:05 PM CDT EXAM: CT CHEST, ABDOMEN AND PELVIS WITH INTRAVENOUS CONTRAST DATE: 12/20/2024 2:20 PM HISTORY: Malignant neoplasm of the ovary. Monitoring lung findings. TECHNIQUE: CT of the above listed region was performed after the patient received IOPAMIDOL 61 % INTRAVENOUS SOLUTION (MULTI-DOSE BULK PACK) Given:60 mL. Oral contrast was not administered. COMPARISONS: 05/18/[address] 09/01/2024 FINDINGS: Centrilobular and paraseptal emphysema is present similar to prior exam. There is no pneumothorax. Right apical pulmonary nodule measures 6 mm series 4 image 44, previously 6 mm. Left upper lobe 6 mm pulmonary nodule on series 4 image 44 is unchanged. 9 mm left upper lobe pulmonary nodule along the oblique fissure on series 4 image 67 has decreased in size previously measuring 14 mm. Right upper lobe 12 mm x 7 mm nodule previously measured 8 mm x 6 mm (series 4 image 80). Left upper lobe pulmonary nodule on series 4 image 24 measures 5 mm, unchanged No new pulmonary nodules identified. No pathologic adenopathy in the chest. Coronary calcifications are present. Heart size is normal. Port central venous catheter tip terminates in the superior vena cava. There is no pleural effusion. Spleen, pancreas adrenal glands and liver are normal. Gallbladder is unremarkable. Kidneys and bladder are within normal limits. Scattered cysts in the left kidney. Hysterectomy. No abnormality in the adnexal region. No pathologic adenopathy in the abdomen or pelvis. No free fluid. No peritoneal thickening. Small fat-containing umbilical hernia. Atherosclerotic calcifications are present in the visualized vasculature without aneurysmal dilatation. Procedure Note Miguelito Valadez MD - 12/20/2024 EXAM: CT CHEST, ABDOMEN AND PELVIS WITH INTRAVENOUS CONTRAST DATE: 12/20/2024 2:20 PM HISTORY: Malignant neoplasm of the ovary. Monitoring lung findings. TECHNIQUE: CT of the above listed region was performed after the patient received IOPAMIDOL 61 % INTRAVENOUS SOLUTION (MULTI-DOSE BULK PACK) Given:60 mL. Oral contrast was not administered. COMPARISONS: 05/18/[address] 09/01/2024 FINDINGS: Centrilobular and paraseptal emphysema is present similar to prior exam. There is no pneumothorax. Right apical pulmonary nodule measures 6 mm series 4 image 44, previously 6 mm. Left upper lobe 6 mm pulmonary nodule on series 4 image 44 is unchanged. 9 mm left upper lobe pulmonary nodule along the oblique fissure on series 4 image 67 has decreased in size previously measuring 14 mm. Right upper lobe 12 mm x 7 mm nodule previously measured 8 mm x 6 mm (series 4 image 80). Left upper lobe pulmonary nodule on series 4 image 24 measures 5 mm, unchanged No new pulmonary nodules identified. No pathologic adenopathy in the chest. Coronary calcifications are present. Heart size is normal. Port central venous catheter tip terminates in the superior vena cava. There is no pleural effusion. Spleen, pancreas adrenal glands and liver are normal. Gallbladder is unremarkable. Kidneys and bladder are within normal limits. Scattered cysts in the left kidney. Hysterectomy. No abnormality in the adnexal region. No pathologic adenopathy in the abdomen or pelvis. No free fluid. No peritoneal thickening. Small fat-containing umbilical hernia. Atherosclerotic calcifications are present in the visualized vasculature without aneurysmal dilatation. IMPRESSION: 1. Increased size of a right upper lobe pulmonary nodule. Otherwise stable disease. The examination was performed with the adjustment of mA according to the patient size and/or the use of Iterative Reconstruction Technique. DICTATION LOCATION: Location 1 - [facility] Aviva Humphries MD CT ORDERABLES Final Result * EXTRA TUBE (12/14/2024 2:00 PM CDT) EXTRA TUBE RECEIVED [employer] patricia Bush Comment: An extra tube was received without a test specified. We will hold this specimen in our cold storage in the event additional testing is requested. Please contact your local client service administrator for further assistance. SPECIMEN TYPE URINE CUP [employer] [facility] t Eleazar Comment: Test Performed at: [facility] [address] [place] [address] Radha Nayak 12/14/2024 2:00 PM CDT 12/14/2024 2:32 PM CDT us Edilia Pettit NP CHEMISTRY ORDERABLES Final Resul t [facility] Organization Address City/State/ZIP Code Phone Number [facility] [phone] [facility] [address] [place] [address] from Last 3 Months Insurance AETNA CHOICE POS II AETNA CHOICE POS II RX [employer] [employer] (INTERNAL) [facility] RX [facility] [employer] Advance Directives For more information, please contact: [phone] * Full Code (Latest Code Status on File) Date Activated Date Inactivated Comments 09/12/2024 5:54 PM 09/13/2024 8:26 PM * Full Code Date Activated Date Inactivated Comments 08/07/2023 12:31 AM 08/12/2023 6:27 PM * Full Code Date Activated Date Inactivated Comments 08/06/2023 12:44 PM 08/07/2023 12:31 AM Care Teams Sole Scraper Relationship Specialty Start Date End Date Shilo Soares MD [address] [id number] PCP - General Internal Medicine 04/24/23
--- OUTSIDE RECORDS SUMMARY | 2025-02-14 16:02 | XMS_ITS ---
Author Organization Unknown Medications Medication Instructions Effective Dates (start - stop) Status mupirocin 0.02 MG/MG Topical Ointment 6352-76-43L05:00:00.000+00:0 0 - Completed [id number] 200 ACTUAT albuter ol 0.09 MG/ACTUAT Metered Dose Inhaler 5255-50-20M64:00:00.000+00:0 0 - Completed [id number] 200 ACTUAT albuter ol 0.09 MG/ACTUAT Metered Dose Inhaler 4704-43-42S67:00:00.000+00:0 0 - Completed atorvastatin 20 MG Oral Tablet 2 987-95-92M05:00:00.000+00:00 - Completed [id number] 200 ACTUAT albuter ol 0.09 MG/ACTUAT Metered Dose Inhaler 4569-00-90M11:00:00.000+00:0 0 - Completed atorvastatin 20 MG Oral Tablet 2 501-23-16V15:00:00.000+00:00 - Completed - 8013-08-06W47:00 :00.000+00:00 - Completed [id number] 200 ACTUAT albuter ol 0.09 MG/ACTUAT Metered Dose Inhaler 9437-72-69J90:00:00.000+00:0 0 - Completed [id number] 200 ACTUAT albuter ol 0.09 MG/ACTUAT Metered Dose Inhaler 6098-16-22M69:00:00.000+00:0 0 - Completed [id number] 200 ACTUAT albuter ol 0.09 MG/ACTUAT Metered Dose Inhaler 1561-73-03L64:00:00.000+00:0 0 - Completed atorvastatin 20 MG Oral Tablet 2 616-39-78M80:00:00.000+00:00 - Completed atorvastatin 20 MG Oral Tablet 2 082-95-54Y92:00:00.000+00:00 - Completed [id number] 200 ACTUAT albuter ol 0.09 MG/ACTUAT Metered Dose Inhaler 8422-81-41N00:00:00.000+00:0 0 - Completed prednisone 20 MG Oral Tablet 10-13-00:00:00.000+00:00 - Completed [id number] 200 ACTUAT albuter ol 0.09 MG/ACTUAT Metered Dose Inhaler 9050-86-44P41:00:00.000+00:0 0 - Completed [id number] 200 ACTUAT albuter ol 0.09 MG/ACTUAT Metered Dose Inhaler 7831-54-98F30:00:00.000+00:0 0 - Completed - 3304-32-22L70:00 :00.000+00:00 - Completed doxycycline hyclate 100 MG O ral Tablet 7823-43-07P71:00:00.000+00:0 0 - Completed {11 (varenicline 0.5 MG Oral Tablet) / 42 (varenicline 1 MG Oral Tablet) } Pack 1070-20-00Z19:00:00.000+00:0 0 - Completed varenicline 1 MG Oral Tablet 202 09-20-10:00:00.000+00:00 - Completed {21 (methylprednisolone 4 MG Oral Tablet) } Pack 0906-52-99L05:00:00.000+00:0 0 - Completed Patient Care team information Name Category Status Period Participants - - Proposed period not known -
--- OUTSIDE RECORDS SUMMARY | 2025-02-14 16:02 | XMS_ITS | Referral Summary ---
Author Organization [address] Address [address] [place] [address] Care Team Providers Care Voltmeter Operator Name Role Phone Miscellaneous, Not In File [...] 4:45 PM CDT Height 167.6 cm (5' 6) 05/30/2024 4:45 PM CDT Body Mass Index 18.08 05/30/2024 4:45 PM CDT Plan of Treatment Not on file Insurance O HMO Care Teams Voltmeter Operator Relationship Specialty Start Date End Date Miscellaneous, Not In File PCP - General 04/19/21
--- OUTSIDE RECORDS SUMMARY | 2025-02-14 16:02 | XMS_ITS | Encounter Summary ---
Author Organization [facility] Address [address] [place] [address] Care Team Providers Care Unit Coordinator Name Role Phone Shilo Soares MD Primary Care Provider [phone] Encounter Details Date Type Department Care Team (Latest Contact Info) Description 12/29/2024 Results Follow-Up [facility] Gynecologic Oncology Hall [address] [facility] [address] [place] [address] Edilia Pettit, CHELY [address] [facility] [address] [place] [address] CBC WITH DIFFERENTIAL Social History [...] Care Team ( st Contact Info) Description 02/22/2025 1:00 PM CDT Appointment [facility] Infusion Center 2nd Fl [address] [place] [address] Aviva Humphries MD [address] [place] [address] Infusion Chair 2, 2nd Floor [place] 03/24/2025 2:30 PM CDT [facility]ment [facility] [address] [place] [address] Aviva Humphries MD [address] [place] [address] documented as of this encounter Visit Diagnoses Not on filedocumented in this encounter Care Teams Unit Coordinator Relationship Specialty Start Date End Date Shilo Soares MD [address] [place] [address] PCP - General Internal Medicine 04/24/23 documented as of this encounter
--- OUTSIDE RECORDS SUMMARY | 2025-02-14 16:02 | XMS_ITS | Encounter Summary ---
Author Organization [facility] Address [address] [place] [address] Care Team Providers Care Finance Insurance Manager Name Role Phone Shilo Soares MD Primary Care Provider [phone] Encounter Details Date Type Department Care Team (Late Contact Info) Description 02/14/2025 External Device Data STL ABSTRACTION [...] 2nd Fl [address] [place] [address] Aviva Humphries MD [address] [facility] [facility] [address] [place] [address] Infusion Chair 2, 2nd Floor Hall 03/24/2025 2:30 PM CDT Appointment [facility] CT Scan [place] [address] [place] [address] Aviva Humphries MD [address] [facility] [address] [place] [address] documented as of this encounter Visit Diagnoses Not on filedocumented in this encounter Care Teams Finance Insurance Manager Relationship Specialty Start Date End Date Shilo Soares MD [address] [place] [address] PCP - General Internal Medicine 04/24/23 documented as of this encounter
--- OUTSIDE RECORDS SUMMARY | 2025-02-14 16:02 | XMS_ITS | Encounter Summary ---
Author Organization [facility] Address [address] [place] [address] Care Team Providers Care Trial Management Associate Name Role Phone Shilo Soares MD Primary Care Provider [phone] Encounter Details Date Type Department Care Team (Latest Contact Info) Description 12/23/2024 Results Follow-Up [facility] Gynecologic Oncology Hall [address] [facility] [address] [place] [address] Edilia Pettit, CHELY [address] [facility] [address] [place] [address] COMPREHENSIVE METABOLIC PANEL, CBC WITH DIFFERENTIAL Social History Tobacco Use [...] Infusion Center 2nd Fl [address] [place] [address] Aviva Humphries MD [address] [place] [address] Infusion Chair 2, 2nd Floor [place] 03/24/2025 2:30 PM CDT [facility] [address] [place] [address] Aviva Humphries MD [address] [place] [address] documented as of this encounter Visit Diagnoses Not on filedocumented in this encounter Care Teams Trial Management Associate Relationship Specialty Start Date End Date Shilo Soares MD [address] [place] [address] PCP - General Internal Medicine 04/24/23 documented as of this encounter
--- OUTSIDE RECORDS SUMMARY | 2025-02-14 16:02 | XMS_ITS | Clinical Summary ---
Author Organization [address] Address [address] [place] [address] Care Team Providers Care Machine I Cutter Name Role Phone Miscellaneous, Not In File [...] Colon Cancer Screening-Colonoscopy 1959 Depression Screening 1959 Fall Risk Assessment 1959 Hepatitis C Screening 1959 Osteoporosis Screening-Bone Density Scan 1959 Hepatitis B Screening 11/26/1977 Pneumococcal vaccine 65+ (1 of 2 - PCV) 11/26/1978 Zoster Vaccine (1 of 2) 11/26/1978 DTaP/Tdap/Td Vaccine (1 - Tdap) 05/10/1994 4 Covid-19 Vaccine (3 - Moderna risk series) 11/14/2020 10/17/2020, 09/22/2020 Well Visit 65+ 11/26/2024 Influenza Vaccine (Season Ended) [id number] [place], [place] [address] Care Teams Machine I Cutter Relationship Specialty Start Date End Date Miscellaneous, Not In File PCP - General 04/19/21
--- OUTSIDE RECORDS SUMMARY | 2025-02-14 16:02 | XMS_ITS | Encounter Summary ---
Author Organization [facility] Address [address] [place] [address] Care Team Providers Care Cannery Worker Name Role Phone Shilo Soares MD Primary Care Provider [phone] Encounter Details Date Type Department Care Team (Late Contact Info) Description 02/13/2025 External Device Data STL ABSTRACTION Provider, [...] 2nd Fl [address] [place] [address] Aviva Humphries MD [address] [facility] [address] [place] [address] Infusion Chair 2, 2nd Floor Hall 03/24/2025 2:30 PM CDT Appointment [facility] CT Scan [place] [address] [place] [address] Aviva Humphries MD [address] [facility] [address] [place] [address] documented as of this encounter Visit Diagnoses Not on filedocumented in this encounter Care Teams Cannery Worker Relationship Specialty Start Date End Date Shilo Soares MD [address] [place] [address] PCP - General Internal Medicine 04/24/23 documented as of this encounter
--- OUTSIDE RECORDS SUMMARY | 2025-02-14 16:02 | XMS_ITS ---
Author Organization [facility] Marlon Swanson Address [address] [place] [address] [place] [address] Care Team Providers Care French Polisher Name Role Phone Shilo Soares MD Primary Care Provider [phone] Active Problems Problem Noted Date Diagnosed Date [...] Medications Current Day (Day 1 , Cycle 27 - Planned for 02/22/2025) Next Day (Day 1, Cycle 28 - 02/04/25 is 15 months of sima - Planned for 03/15/2025) bevacizumab-awwb (MVASI) IVPBCARBOplatin (PARAPLATIN) IVPBPACLitaxel (TAXOL) IVPB bevacizumab-awwb (MVASI) 773 mg in sodium chloride 0.9 % 100 mL IVPB bevacizumab-awwb (MVASI) 773 mg in sodium chloride 0.9% 100 mL IVPB Past Treatment and Therapy Plans No past plan information found. Lifetime Dose Tracking * Chemical Lifetime Dose Automatic Entry Manual Entr y Effective Dose 183.45 mSv 183.45 mSv 0 mSv Total DLP 6,761.55 DLP 6,761.55 DLP 0 DLP CTDIvol Max 93.04 mGy 93.04 mGy 0 mGy CTDIvol Min 6.02 mGy 6.02 mGy 0 mGy
== END 2025-02-14 15:59 | disposition home or self-care (01) ==
PROVIDERS: PCP Emergency Medicine; Visit Provider Emergency Medicine
DX: M25.511 Pain in right shoulder (principal)
CPT/HCPCS: 73030

== ENCOUNTER 2025-04-14 13:39 | Outpatient (CLI) | payer OTHER, SELFPAY ==
--- NOTE | ~2025-04-14 | MM_ITS ---
EXAMINATION: MM screening [facility] BI w [facility] HISTORY: Screening TECHNIQUE: Craniocaudal and mediolateral oblique 3-D tomosynthesis images were obtained and synthetic 2-D images were generated. CAD analysis was submitted and interpreted. COMPARISON: Mammograms 03/30/2024 and 09/11/2022 BREAST PARENCHYMAL COMPOSITION: The breasts are heterogeneously dense, which may obscure small masses. FINDINGS: There is no evidence of suspicious mass, calcification, or architectural distortion to suggest malignancy. There has been no suspicious interval change. IMPRESSION: 1. No mammographic evidence of malignancy. Recommend routine screening mammography in one year. BI-RADS Category 2: Benign finding(s) Reviewed, dictated and finalized at location Q. IMPRESSION: 1. No mammographic evidence of malignancy. Recommend routine screening mammogra phy in one year. BI-RADS Category 2: Benign finding(s)
--- OUTSIDE RECORDS SUMMARY | 2025-04-14 14:07 | XMS_ITS | Encounter Summary ---
Author Organization [facility] Address [address] [place] [address] Care Team Providers Care Rating Officer Name Role Phone Shilo Soares MD Primary Care Provider [phone] Encounter Details Date Type Department Care Team (Latest Contact Info) Description 03/17/2025 Results Follow-Up [facility] Gynecologic Oncology Hall [address] [facility] [address] [place] [address] Edilia Pettit, RADIO MECHANIC HELPER [address] [facility] [address] [place] [address] CANCER ANTIGEN 125, URINALYSIS WITH REFLEX CULTURE, CBC WITH DIFFERENTIAL, Additional followed-up results: 3 Social History Tobacco Use Types Packs/Day Years Used Date Smoking Tobacco: Every Day Cigarettes 0.5 35 Smokeless Tobacco: Never Alcohol Use Standard Drinks/Week Comments Not Currently 0 (1 standard drink = 0.6 oz pur e alcohol) 2-3 drinks per year Feeling Safe Answer Date Recorded Are you in a relationship wi th someone who hurts you emotionally and/or physically? No 03/15/2025 Food Insecurity Answer Date Recorded Patient needs [...] Encounters Date Type Department Care Team ( Contact Info) Description 05/10/2025 1:30 PM CDT Office Visit [facility] Gynecologic Oncology Hall [address] [place] [address] Aviva Humphries MD [address] [place] [address] documented as of this encounter Visit Diagnoses Not on filedocumented in this encounter Care Teams Rating Officer Relationship Specialty Start Date End Date Shilo Soares MD [address] [place] [address] PCP - General Internal Medicine 04/24/23 documented as of this encounter
--- OUTSIDE RECORDS SUMMARY | 2025-04-14 14:07 | XMS_ITS ---
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 OP ONC HYDRATION* Plan Start Date:11/24/2024 Plan Provider:Edilia Pettit NP Linked Problems Malignant neoplasm of ovary, unspecified laterality (CMS/HCC) Treatment Medications No medications scheduled. OP ONC OVARIAN_PACLITAXEL_CARBOPLATIN_BEVACIZUMAB (START ON CYCLE 2)_EVERY 21 DAYS X 6 FOLLOWED BY BEVACIZUMAB_EVERY 21 DAYS X 16* Plan Start Date:05/25/2023 Plan Provider:Aviva Humphries MD Linked Problems Malignant neoplasm of ovary, unspecified laterality (CMS/HCC) Treatment Medications bevacizumab-awwb (MVASI) IVP BCARBOplatin (PARAPLATIN) IVPBPACLitaxel (TAXOL) IVPB Past Treatment and Therapy Plans No past plan information found. Lifetime Dose Tracking * Chemical Lifetime Dose Automatic Entry Manual Entr y Effective Dose 226.45 mSv 226.45 mSv 0 mSv Total DLP 7,886.81 DLP 7,886.81 DLP 0 DLP CTDIvol Max 107.95 mGy 107.95 mGy 0 mGy CTDIvol Min 20.1 mGy 20.1 mGy 0 mGy
--- OUTSIDE RECORDS SUMMARY | 2025-04-14 14:07 | XMS_ITS | Encounter Summary ---
Author Organization [facility] Address [address] [place] [address] Care Team Providers Care Lump Machine Operator Name Role Phone Shilo Soares MD Primary Care Provider [phone] Encounter Details Date Type Department Care Team (Late Contact Info) Description 04/13/2025 External Device Data STL ABSTRACTION Provider, Abstract [...] Department Care Team (Late Contact Info) Description 05/10/2025 1:30 PM CDT Office Visit [facility] Gynecologic Oncology Hall [address] [place] [address] Aviva Humphries MD [address] [place] [address] documented as of this encounter Visit Diagnoses Not on filedocumented in this encounter Care Teams Lump Machine Operator Relationship Specialty Start Date End Date Shilo Soares MD [address] [address] PCP - General Internal Medicine 04/24/23 documented as of this encounter
--- OUTSIDE RECORDS SUMMARY | 2025-04-14 14:07 | XMS_ITS | Encounter Summary ---
Author Organization [facility] Address [address] [place] [address] Care Team Providers Care Director Of Patient Financial Services Name Role Phone Shilo Soares MD Primary Care Provider [phone] Encounter Details Date Type Department Care Team ([facility] Contact Info) Description 04/10/2025 Orders Only [facility] Gynecologic Oncology Hall [address] [place] [address] Aviva Humphries MD [address] [place] [address] Maintenance antineoplastic chemotherapy Social History Tobacco Use [...] Upcoming Encounters Date Type Department Care Team ([facility] Contact Info) Description 05/10/2025 1:30 PM CDT Office Visit [facility] Gynecologic Oncology Hall [address] [place] [address] Aviva Humphries MD [address] [place] [address] documented as of this encounter Procedures Procedure Name Priority Date/Time Associated Diagnosis Comments CBC WITH DIFFERENTIAL Routine 04/12/2025 3:38 PM CDT Maintenance antineoplastic chemotherapy CANCER ANTIGEN 125 Routine 04/12/2025 3: 38 PM CDT Maintenance antineoplastic chemotherapy documented in this encounter Results * CANCER ANTIGEN 125 (04/12/2025 3:38 PM CDT) Pathologist [facility] [place] 125 6 <35 U/mL [facility] Comment: This test was performed using the Siemens Chemiluminescent method. Values obtained from different assay methods cannot be used interchangeably. CA 125 levels, regardless of value, should not be interpreted as absolute evidence of the presence or absence of disease. Test Performed at: [facility] [address] [place] [address] Radha Perez MD Blood 04/12/2025 3:38 PM CDT 04/12/2025 3:39 PM CDT us Edilia Pettit NP CHEMISTRY ORDERABLES Final Resul t [facility] [phone] [facility] [address] [place] [address] * (ABNORMAL) CBC WITH DIFFERENTIAL (04/12/2025 3:38 PM CDT) WBC 4.4 3.8 - 10.8 Thousand/u L [facility] RBC 3.27(L) 3.80 - 5.10 Million/uL [facility] HEMOGLOBIN 12.8 11.7 - 15.5 g/dL [facility] HEMATOCRIT 37.4 35.0 - 45.0 % [facility] MCV 114.4(H) 80.0 - 100.0 fL [facility] MCH 39.1(H) 27.0 - 33.0 pg [facility] MCHC 34.2 32.0 - 36.0 g/dL [facility] Comment: For adults, a slight decrease in the calculated MCHC value (in the range of 30 to 32 g/dL) is most likely not clinically significant; however, it should be interpreted with caution in correlation with other red cell parameters and the patient's clinical condition. RDW 17.6(H) 11.0 - 15.0 % [facility] PLATELETS 177 140 - 400 Thousand/u L [facility] MPV 10.2 7.5 - 12.5 fL [facility] NEUTROPHIL ABSOLUTE 1,892 1,500 - 7,800 cells/uL [facility] LYMPHOCYTE ABSOLUTE 2,020 850 - 3,900 cells/uL [facility] MONOCYTE ABSOLUTE 405 200 - 950 cells/uL [facility] EOSINOPHIL ABSOLUTE 62 15 - 500 cells/uL [facility] BASOPHILS ABSOLUTE 22 0 - 200 cells/uL [facility] NEUTROPHIL 43 % [facility] LYMPHOCYTES 45.9 % [facility] MONOCYTE 9.2 % [facility] EOSINOPHILS 1.4 % [facility] BASOPHILS 0.5 % [facility] Comment: Test Performed at: [facility] [address] [place] [address] Radha Perez MD Blood 04/12/2025 3:38 PM CDT 04/12/2025 3:39 PM CDT us Edilia Pettit NP HEMATOLOGY ORDERABLES Final Resu lt [facility] [phone] [facility] [employer] [address] [place] [address] documented in this encounter Visit Diagnoses Diagnosis Maintenance antineoplastic chemotherapy Encounter for antineoplastic chemotherapy documented in this encounter Care Teams Director Of Patient Financial Services Relationship Specialty Start Date End Date Shilo Soares MD [address] [place] [address] PCP - General Internal Medicine 04/24/23 documented as of this encounter
--- OUTSIDE RECORDS SUMMARY | 2025-04-14 14:07 | XMS_ITS | Clinical Summary ---
Author Organization [address] Address [address] [place] [address] Care Team Providers Care Metals Sales Representative Name Role Phone Miscellaneous, Not In File [...] 09/22/2020 Well Visit 65+ 11/26/2024 Influenza Vaccine (#1) [address] [facility] Care Teams Metals Sales Representative Relationship Specialty Start Date End Date Miscellaneous, Not In File PCP - General 04/19/21
--- OUTSIDE RECORDS SUMMARY | 2025-04-14 14:07 | XMS_ITS | Encounter Summary ---
Author Organization [facility] Address [address] [place] [address] Care Team Providers Care Loss Prevention Research Engineer Name Role Phone Shilo Soares MD Primary Care Provider [phone] Encounter Details Date Type Department Care Team [...] Description 05/10/2025 1:30 PM CDT Office Visit [facility] Gynecologic Oncology Hall [address] [place] [address] Aviva Humphries MD [address] [place] [address] documented as of this encounter Visit Diagnoses Not on filedocumented in this encounter Care Teams Loss Prevention Research Engineer Relationship Specialty Start Date End Date Shilo Soares MD [address] [address] PCP - General Internal Medicine 04/24/23 documented as of this encounter
--- OUTSIDE RECORDS SUMMARY | 2025-04-14 14:07 | XMS_ITS | Encounter Summary ---
Author Organization [facility] Address [address] [place] [address] Care Team Providers Care Fuel Buyer Name Role Phone Shilo Soares MD Primary Care Provider [phone] Encounter Details Date Type Department Care Team (Late Contact Info) Description 04/14/2025 External Device Data [facility] ABSTRACTION Provider, Abstract [...] Description 05/10/2025 1:30 PM CDT Office Visit [facility] Gynecologic Oncology Hall [address] [place] [address] Aviva Humphries MD [address] [place] [address] documented as of this encounter Visit Diagnoses Not on filedocumented in this encounter Care Teams Fuel Buyer Relationship Specialty Start Date End Date Shilo Soares MD [address] [address] PCP - General Internal Medicine 04/24/23 documented as of this encounter
--- OUTSIDE RECORDS SUMMARY | 2025-04-14 14:07 | XMS_ITS | Encounter Summary ---
Author Organization [facility] Address [address] [place] [address] Care Team Providers Care Hoop Punch And Coiler Operator Name Role Phone Shilo Soares MD Primary Care Provider [phone] Encounter Details Date Type Department Care Team ([facility] Contact Info) Description 04/13/2025 Orders Only [facility] Gynecologic Oncology Hall [address] [place] [address] Edilia Pettit, CHELY [address] [place] [address] Social History Tobacco Use Types [...] Description 05/10/2025 1:30 PM CDT Office Visit [facility] Gynecologic Oncology Hall [address] [place] [address] Aviva Humphries MD [address] [place] [address] documented as of this encounter Visit Diagnoses Not on filedocumented in this encounter Care Teams Hoop Punch And Coiler Operator Relationship Specialty Start Date End Date Shilo Soares MD [address] [place] [id number] PCP - General Internal Medicine 04/24/23 documented as of this encounter
--- OUTSIDE RECORDS SUMMARY | 2025-04-14 14:07 | XMS_ITS | Encounter Summary ---
Author Organization [facility] Address [address] [place] [address] Care Team Providers Care Project Controls Scheduler Name Role Phone Shilo Soares MD Primary Care Provider [phone] Encounter Details Date Type Department Care Team [...] Description 05/10/2025 1:30 PM CDT Office Visit [facility] Gynecologic Oncology Hall [address] [place] [address] Aviva Humphries MD [address] [place] [address] documented as of this encounter Visit Diagnoses Not on filedocumented in this encounter Care Teams Project Controls Scheduler Relationship Specialty Start Date End Date Shilo Soares MD [address] [address] PCP - General Internal Medicine 04/24/23 documented as of this encounter
--- OUTSIDE RECORDS SUMMARY | 2025-04-14 14:07 | XMS_ITS | Clinical Summary ---
Author Organization [facility] Address [address] [place] [address] Care Team Providers Care Roustabout Crew Name Role Phone Unavailable Primary Care Provider [...] 11/26/2009 Zoster Vaccines (1 of 2) 11/26/2009 Dexa Scan (General) 11/26/2024 COVID-19 Vaccine ( - 2023-2 5 season) 2025 RSV Immunization or 60+ Years (1 - [...]
--- OUTSIDE RECORDS SUMMARY | 2025-04-14 14:07 | XMS_ITS | Clinical Summary ---
Author Organization [facility] Marlon Swanson Address [address] [address] Care Team Providers Care Ve Teacher Name Role Phone Shilo Soares MD Primary Care Provider [phone] Allergies Active Allergy Reactions Criticality Noted Date Comments Ciprofloxacin Rash Low 04/24/2023 Penicillins Rash Medium 04/19/2021 Medications albuterol sulfate HFA 90 mcg/actuation aerosol inhaler Take 1 Puff by inhalation every 6 hours as needed. 04/08/20 21 Active atorvastatin (LIPITOR) 20 mg tablet Take 20 mg by mouth daily at bedtime. 02/27/20 21 Active fluticasone propionate (FLONASE) 50 mcg/spray Marvell, Suspension nasal inhaler Administer 2 Sprays in [...] by inhalation 2 times daily. Active olaparib 100 mg tablet Take 2 Tablets (200 mg) by mouth 2 times daily. 120 Tablet 2 04/13/20 25 Active olaparib (Lynparza) 100 mg tablet TAKE 2 TABLETS BY MOUTH 2 TIMES A DAY 120 Tablet 2 12/23/19 25 025 Discontinu ed(Reorder ) nitrofurantoin (MACROBID) 100 mg capsule Take 1 Capsule (100 mg) by mouth 2 times daily for 5 days. 10 Capsule 03/17/20 25 025 Active Problems Problem Noted Date Diagnosed Date [...] Encounters Date Type Department Care Team Description 04/14/2025 External Device Data STL ABSTRACTION Provider, Abstract 04/14/2025 External Device Data STL ABSTRACTION Provider, Abstract 04/13/2025 Orders Only [facility] [address] [place] [address] Edilia Pettit NP 04/13/2025 External Device Data STL ABSTRACTION Provider, Abstract 04/13/2025 External Device Data STL ABSTRACTION Provider, Abstract 04/12/2025 External Device Data STL ABSTRACTION Provider, Abstract 04/12/2025 External Device Data STL ABSTRACTION Provider, Abstract 04/11/2025 External Device Data STL ABSTRACTION Provider, Abstract 04/11/2025 External Device Data STL ABSTRACTION Provider, Abstract 04/10/2025 External Device Data STL ABSTRACTION Provider, Abstract 04/10/2025 External Device Data STL ABSTRACTION Provider, Abstract 04/10/2025 Orders Only [facility] [address] [place] [address] Aviva Humphries MD Maintenance antineoplastic chemotherapy 04/09/2025 External Device Data STL ABSTRACTION Provider, Abstract 04/09/2025 External Device Data STL ABSTRACTION Provider, Abstract 04/08/2025 External Device Data STL ABSTRACTION Provider, Abstract 04/08/2025 External Device Data STL ABSTRACTION Provider, Abstract 04/07/2025 External Device Data STL ABSTRACTION Provider, Abstract 04/07/2025 External Device Data STL ABSTRACTION Provider, Abstract 04/06/2025 External Device Data STL ABSTRACTION Provider, Abstract 04/06/2025 External Device Data STL ABSTRACTION Provider, Abstract 04/05/2025 External Device Data STL ABSTRACTION Provider, Abstract 04/05/2025 External Device Data STL ABSTRACTION Provider, Abstract 04/04/2025 External Device Data STL ABSTRACTION Provider, Abstract 04/04/2025 External Device Data STL ABSTRACTION Provider, Abstract 04/03/2025 External Device Data STL ABSTRACTION Provider, Abstract 04/03/2025 External Device Data STL ABSTRACTION Provider, Abstract 04/02/2025 External Device Data STL ABSTRACTION Provider, Abstract 04/02/2025 External Device Data STL ABSTRACTION Provider, Abstract 04/01/2025 External Device Data STL ABSTRACTION Provider, Abstract 04/01/2025 External Device Data STL ABSTRACTION Provider, Abstract 03/31/2025 External Device Data STL ABSTRACTION Provider, Abstract 03/31/2025 External Device Data STL ABSTRACTION Provider, Abstract 03/30/2025 External Device Data STL ABSTRACTION Provider, Abstract 03/30/2025 External Device Data STL ABSTRACTION Provider, Abstract 03/29/2025 External Device Data STL ABSTRACTION Provider, Abstract 03/29/2025 External Device Data STL ABSTRACTION Provider, Abstract 03/29/2025 External Device Data STL ABSTRACTION Provider, Abstract 03/28/2025 External Device Data STL ABSTRACTION Provider, Abstract 03/27/2025 External Device Data STL ABSTRACTION Provider, Abstract 03/26/2025 Results Follow-Up [facility] [address] [place] [id number] CHEST ABDOMEN PELVIS W CONT 03/26/2025 External Device Data STL ABSTRACTION Provider, Abstract 03/25/2025 External Device Data STL ABSTRACTION Provider, Abstract 03/24/2025 1:27 PM CDT - 03/24/2025 11:59 PM CDT Hospital Encounter [facility] CT Scan [address] [place] [address] Aviva Humphries MD Discharge Disposition: Home or Self Care 03/24/2025 External Device Data STL ABSTRACTION Provider, Abstract 03/23/2025 External Device Data STL ABSTRACTION Provider, Abstract 03/23/2025 External Device Data STL ABSTRACTION Provider, Abstract 03/23/2025 External Device Data STL ABSTRACTION Provider, Abstract 03/23/2025 External Device Data STL ABSTRACTION Provider, Abstract 03/22/2025 External Device Data STL ABSTRACTION Provider, Abstract 03/22/2025 External Device Data STL ABSTRACTION Provider, Abstract 03/22/2025 External Device Data STL ABSTRACTION Provider, Abstract 03/22/2025 External Device Data STL ABSTRACTION Provider, Abstract 03/22/2025 External Device Data STL ABSTRACTION Provider, Abstract 03/22/2025 External Device Data STL ABSTRACTION Provider, Abstract 03/22/2025 External Device Data STL ABSTRACTION Provider, Abstract 03/22/2025 External Device Data STL ABSTRACTION Provider, Abstract 03/22/2025 External Device Data STL ABSTRACTION Provider, Abstract 03/21/2025 External Device Data STL ABSTRACTION Provider, Abstract 03/20/2025 External Device Data STL ABSTRACTION Provider, Abstract 03/20/2025 External Device Data STL ABSTRACTION Provider, Abstract 03/20/2025 External Device Data STL ABSTRACTION Provider, Abstract 03/20/2025 External Device Data STL ABSTRACTION Provider, Abstract 03/20/2025 External Device Data STL ABSTRACTION Provider, Abstract 03/20/2025 External Device Data STL ABSTRACTION Provider, Abstract 03/20/2025 External Device Data STL ABSTRACTION Provider, Abstract 03/20/2025 External Device Data STL ABSTRACTION Provider, Abstract 03/20/2025 External Device Data STL ABSTRACTION Provider, Abstract 03/20/2025 External Device Data STL ABSTRACTION Provider, Abstract 03/20/2025 External Device Data STL ABSTRACTION Provider, Abstract 03/20/2025 External Device Data STL ABSTRACTION Provider, Abstract 03/20/2025 External Device Data STL ABSTRACTION Provider, Abstract 03/20/2025 External Device Data STL ABSTRACTION Provider, Abstract 03/20/2025 External Device Data STL ABSTRACTION Provider, Abstract 03/20/2025 External Device Data STL ABSTRACTION Provider, Abstract 03/20/2025 External Device Data STL ABSTRACTION Provider, Abstract 03/20/2025 External Device Data STL ABSTRACTION Provider, Abstract 03/20/2025 External Device Data STL ABSTRACTION Provider, Abstract 03/20/2025 External Device Data STL ABSTRACTION Provider, Abstract 03/20/2025 External Device Data STL ABSTRACTION Provider, Abstract 03/19/2025 External Device Data STL ABSTRACTION Provider, Abstract 03/18/2025 External Device Data STL ABSTRACTION Provider, Abstract 03/17/2025 Results Follow-Up [facility] [address] [place] [address] Edilia Pettit, CHELY CANCER ANTIGEN 125, URINALYSIS WITH REFLEX CULTURE, CBC WITH DIFFERENTIAL, Additional followed-up results: 3 03/17/2025 External Device Data STL ABSTRACTION Provider, Abstract 03/16/2025 Telephone [facility] [address] [place] [address] Aviva Humphries MD Needs Appointment 03/16/2025 External Device Data STL ABSTRACTION Provider, Abstract 03/15/2025 1:49 PM CDT - 03/15/2025 11:59 PM CDT Hospital Encounter [facility] [address] [place] [address] Edilia Pettit NP Infusion Chair 5, 2nd Floor Hall Discharge Disposition: Home or Self Care 03/15/2025 1:30 PM CDT Office Visit [facility] [address] [place] [address] Edilia Pettit NP Maintenance antineoplastic chemotherapy (Primary Dx); Malignant neoplasm of ovary, unspecified laterality (CMS/HCC) 03/15/2025 10:05 AM CDT - 03/15/2025 11:59 PM CDT Hospital Encounter [facility] [address] [place] [address] Aviva Humphries MD Discharge Disposition: Home or Self Care 03/15/2025 External Device Data STL ABSTRACTION Provider, Abstract 03/15/2025 External Device Data STL ABSTRACTION Provider, Abstract 03/14/2025 External Device Data STL ABSTRACTION Provider, Abstract 03/13/2025 External Device Data STL ABSTRACTION Provider, Abstract 03/12/2025 External Device Data STL ABSTRACTION Provider, Abstract 03/11/2025 External Device Data STL ABSTRACTION Provider, Abstract 03/10/2025 External Device Data STL ABSTRACTION Provider, Abstract 03/09/2025 External Device Data STL ABSTRACTION Provider, Abstract 03/08/2025 External Device Data STL ABSTRACTION Provider, Abstract 03/07/2025 External Device Data STL ABSTRACTION Provider, Abstract 03/06/2025 External Device Data STL ABSTRACTION Provider, Abstract 03/05/2025 External Device Data STL ABSTRACTION Provider, Abstract 03/04/2025 External Device Data STL ABSTRACTION Provider, Abstract 03/03/2025 External Device Data STL ABSTRACTION Provider, Abstract 03/02/2025 External Device Data STL ABSTRACTION Provider, Abstract 03/01/2025 External Device Data STL ABSTRACTION Provider, Abstract 02/28/2025 External Device Data STL ABSTRACTION Provider, Abstract 02/27/2025 External Device Data STL ABSTRACTION Provider, Abstract 02/26/2025 External Device Data STL ABSTRACTION Provider, Abstract 02/25/2025 External Device Data STL ABSTRACTION Provider, Abstract 02/24/2025 External Device Data STL ABSTRACTION Provider, Abstract 02/23/2025 External Device Data STL ABSTRACTION Provider, Abstract 02/22/2025 11:33 AM CDT - 02/22/2025 11:59 PM CDT Hospital Encounter [facility] [address] [place] [address] Aviva Humphries MD Infusion Chair 2, 2nd Floor Hall Discharge Disposition: Home or Self Care 02/22/2025 11:15 AM CDT - 02/22/2025 11:59 PM CDT Hospital Encounter [facility] [address] [place] [address] Aviva Humphries MD Discharge Disposition: Home or Self Care 02/22/2025 External Device Data STL ABSTRACTION Provider, Abstract 02/22/2025 External Device Data STL ABSTRACTION Provider, Abstract 02/21/2025 External Device Data STL ABSTRACTION Provider, Abstract 02/21/2025 External Device Data STL ABSTRACTION Provider, Abstract 02/20/2025 External Device Data STL ABSTRACTION Provider, Abstract 02/19/2025 External Device Data STL ABSTRACTION Provider, Abstract 02/18/2025 External Device Data STL ABSTRACTION Provider, Abstract 02/17/2025 External Device Data STL ABSTRACTION Provider, Abstract 02/16/2025 External Device Data STL ABSTRACTION Provider, Abstract 02/15/2025 External Device Data STL ABSTRACTION Provider, Abstract 02/14/2025 External Device Data STL ABSTRACTION Provider, [...] Ctr [facility]fusion [facility] 2nd Fl [address] [place] [address] Aviva Humphries MD Infusion Chair 10, 2nd Floor Hall Discharge Disposition: Home or Self Care 02/01/2025 3:00 PM CDT Office Visit [facility] [address] [place] [address] Aviva Humphries MD Maintenance antineoplastic chemotherapy (Primary Dx); Malignant neoplasm of ovary, unspecified laterality (CMS/HCC); Chemotherapy-induced fatigue; Pulmonary nodule 02/01/2025 1:30 PM CDT - 02/01/2025 11:59 PM CDT Hospital Encounter [facility] [address] [place] [address] Aviva Humphries MD Discharge Disposition: Home or [...] Sign Reading Time Taken Comments Blood Pressure 126/70 03/15/2025 1:23 PM CDT Pulse 97 03/15/2025 1:23 PM CDT Temperature 36.8 C (98.2 F) 03/15/2025 1:23 PM CDT Respiratory Rate 18 02/22/2025 12:50 PM CDT Oxygen Saturation 93% 03/15/2025 1:23 PM CDT Inhaled Oxygen Concentration - - Weight 53 kg (116 lb 12.8 oz) 03/15/2025 1:23 PM CDT Height 167.6 cm (5' 6) 03/15/2025 1:23 PM CDT Body Mass Index 18.85 03/15/2025 1:23 PM CDT Plan of Treatment Upcoming Encounters Date Type Department Care Team (Late st Contact Info) Description 05/10/2025 1:30 PM CDT Office Visit [facility] [address] [place] [address] Aviva Humphries MD [address] [place] [address] Health Maintenance Due Date Last [...] (#1) 2025 Medical Devices Implanted Type Area Delivery Sales Worker Device Identifier Shelf Expiration Date Model / Serial / Lot Hemostat Lanette Ah Powder 3gm [id number] - [id number] Implanted:Qt y: 1 on 08/06/2023 by Aviva Humphries MD at [facility] Hemostatic N/A: Abdomen BARD DAVOL [id number] 12/06/2027 [id number] / / [id number] Hemostat Lanette Ah Powder 3gm [id number] - [id number] Implanted:Qt y: 1 on 08/06/2023 by Aviva Humphries MD at [facility] Hemostatic N/A: Abdomen BARD DAVOL [id number] 12/06/2027 [id number] / / [id number] Port- 023 Implanted:Qt y: 1 on 05/25/2023 by Casie Rajput MD Right: Chest Wall 01/07/2025 [id number] / / [id number] Description:BARD 8FR SLIM PO [place] IMPLANTED INTO RIGHT CHEST WALL ON 05/25/[address] RAJPUT Procedures Procedure Name Priority Date/Time Associated Diagnosis Comments CANCER ANTIGEN 125 Routine 04/12/2025 3: 38 PM CDT Maintenance antineoplastic chemotherapy CBC WITH DIFFERENTIAL Routine 04/12/2025 3:38 PM CDT Maintenance antineoplastic chemotherapy CT CHEST ABDOMEN PELVIS W CONT Routine 03/24/2025 2:15 PM CDT Malignant neoplasm of ovary, unspecified laterality (CMS/HCC) DIFFERENTIAL, MANUAL Stat 03/15/2025 12:36 PM CDT Malignant neoplasm of ovary, unspecified laterality (CMS/HCC) COMPREHENSIVE METABOLIC PANEL Stat 03/15/2025 12:36 PM CDT Malignant neoplasm of ovary, unspecified laterality (CMS/HCC) CBC WITH DIFFERENTIAL Stat 03/15/2025 12:36 PM CDT Malignant neoplasm of ovary, unspecified laterality (CMS/HCC) URINALYSIS WITH REFLEX CULTURE Stat 03/15/2025 12:36 PM CDT Malignant neoplasm of ovary, unspecified laterality (CMS/HCC) URINE CULTURE Routine 03/15/2025 12:36 PM CDT Malignant neoplasm of ovary, unspecified laterality (CMS/HCC) CANCER ANTIGEN 125 Routine 03/15/2025 12 :30 PM CDT Malignant neoplasm of ovary, unspecified laterality (CMS/HCC) DIFFERENTIAL, MANUAL Stat 02/22/2025 11:24 AM CDT Malignant neoplasm of ovary, unspecified laterality (CMS/HCC) COMPREHENSIVE METABOLIC PANEL Stat 02/22/2025 11:24 AM CDT Malignant neoplasm of ovary, unspecified laterality (CMS/HCC) CBC WITH DIFFERENTIAL Stat 02/22/2025 11:24 AM CDT Malignant neoplasm of ovary, unspecified laterality (CMS/HCC) URINALYSIS WITH REFLEX CULTURE Stat 02/22/2025 11:24 AM CDT Malignant neoplasm of ovary, unspecified laterality (CMS/HCC) CANCER ANTIGEN 125 Routine 02/22/2025 11 :24 AM CDT Malignant neoplasm of ovary, unspecified laterality (CMS/HCC) DIFFERENTIAL, MANUAL Stat 02/01/2025 1:42 PM CDT [...] (CMS/HCC) from Last 3 Months Results * (ABNORMAL) CBC WITH DIFFERENTIAL (04/12/2025 3:38 PM CDT) Only the most recent of4 resultswithin the time period is included. WBC 4.4 3.8 - 10.8 Thousand/u L [...] [facility] Comment: Test Performed at: [facility] [address] [place] [address] [place] [address] Radha Perez MD Blood 04/12/2025 3:38 PM CDT 04/12/2025 3:39 PM CDT Edilia Pettit NP HEMATOLOGY ORDERABLES Final Resu lt Performing Organization Address [facility] Co de Phone Number [facility] [phone] [facility] [address] [place] [address] [place] [address] * CANCER ANTIGEN 125 (04/12/2025 3:38 PM CDT) Only the most recent of4 resultswithin the time period is included. CA 125 6 <35 U/mL [facility] Comment: This test was performed using the Siemens Chemiluminescent method. Values obtained from different assay methods cannot be used interchangeably. CA 125 levels, regardless of value, should not be interpreted as absolute evidence of the presence or absence of disease. Test Performed at: [facility] [place] [address] Radha Perez MD Blood 04/12/2025 3:38 PM CDT 04/12/2025 3:39 PM CDT Edilia Pettit NP CHEMISTRY ORDERABLES Final Resul t Performing Organization Address [facility]/ZIP Co de Phone Number [facility] [phone] [facility] [address] [place] [address] [place] [address] * CT CHEST ABDOMEN PELVIS W CONT (03/24/2025 2:15 PM CDT) Anatomical Region Laterality Modality Chest Computed Tomogra phy 03/24/2025 2:05 PM CDT Impressions 03/26/2025 11:27 AM CDT IMPRESSION: 1. Decreased size of the dominant right upper lobe pulmonary nodule. Otherwise stable exam. The examination was performed with the adjustment of mA according to the patient size and/or the use of Iterative Reconstruction Technique. DICTATION LOCATION: Location 1 - [facility] 03/26/2025 11:27 AM CDT EXAM: CT CHEST, ABDOMEN AND PELVIS WITH INTRAVENOUS CONTRAST DATE: 03/24/2025 2:15 PM HISTORY: Ovarian cancer monitoring. TECHNIQUE: CT of the above listed region was performed after the patient received IOPAMIDOL 61 % INTRAVENOUS SOLUTION (MULTI-DOSE BULK PACK) Given:60 mL. Oral contrast was not administered. COMPARISONS: 12/20/2024 FINDINGS: Decreased size of the dominant right upper lobe pulmonary nodule measuring 9 x 5 mm, previously 12 x 7 mm (series 4 image 84). All other pulmonary nodules are stable. No new pulmonary nodules are identified. Moderate emphysema is unchanged. No central airway abnormality. Port central venous catheter tip terminates in the superior vena cava. Calcific atherosclerotic disease is present in the aorta and coronary vasculature. Heart size is unchanged. No pathologic adenopathy in the chest. Small hiatal hernia. Spleen, pancreas and adrenal glands are normal. No focal liver abnormality. Portal veins patent. Gallbladder is unremarkable. Unchanged probable renal cysts. No hydronephrosis or nephrolithiasis. Bladder is unremarkable. Uterus is surgically absent. Ovaries are surgically absent. There is no pathologic adenopathy in the abdomen or pelvis. Calcific atherosclerotic disease is present in the aorta and iliofemoral vasculature. There is no free fluid or peritoneal thickening or nodularity. No suspicious osseous lesions. Procedure Note Miguelito Valadez MD - 03/26/2025 EXAM: CT CHEST, ABDOMEN AND PELVIS WITH INTRAVENOUS CONTRAST DATE: 03/24/2025 2:15 PM HISTORY: Ovarian cancer monitoring. TECHNIQUE: CT of the above listed region was performed after the patient received IOPAMIDOL 61 % INTRAVENOUS SOLUTION (MULTI-DOSE BULK PACK) Given:60 mL. Oral contrast was not administered. COMPARISONS: 12/20/2024 FINDINGS: Decreased size of the dominant right upper lobe pulmonary nodule measuring 9 x 5 mm, previously 12 x 7 mm (series 4 image 84). All other pulmonary nodules are stable. No new pulmonary nodules are identified. Moderate emphysema is unchanged. No central airway abnormality. Port central venous catheter tip terminates in the superior vena cava. Calcific atherosclerotic disease is present in the aorta and coronary vasculature. Heart size is unchanged. No pathologic adenopathy in the chest. Small hiatal hernia. Spleen, pancreas and adrenal glands are normal. No focal liver abnormality. Portal veins patent. Gallbladder is unremarkable. Unchanged probable renal cysts. No hydronephrosis or nephrolithiasis. Bladder is unremarkable. Uterus is surgically absent. Ovaries are surgically absent. There is no pathologic adenopathy in the abdomen or pelvis. Calcific atherosclerotic disease is present in the aorta and iliofemoral vasculature. There is no free fluid or peritoneal thickening or nodularity. No suspicious osseous lesions. IMPRESSION: 1. Decreased size of the dominant right upper lobe pulmonary nodule. Otherwise stable exam. The examination was performed with the adjustment of mA according to the patient size and/or the use of Iterative Reconstruction Technique. DICTATION LOCATION: Location 1 - [facility] Aviva Humphries MD CT ORDERABLES Final Result * MANUAL DIFFERENTIAL (03/15/2025 12:36 PM CDT) Only the most recent of3 resultswithin the time period is included. PLATELET EST. Consistent w Count 03/15/2025 12:57 PM CDT [facility] ANISOCYTOSIS 2+ /hpf 03/15/2025 12:57 PM CDT [facility] POIKILOCYTES 1+ /hpf 03/15/2025 12:57 PM CDT [facility] MACROCYTES 2+ /hpf 03/15/2025 12:57 PM CDT [facility] Blood Collection / Unknown 03/15/2025 12:36 PM CDT 03/15/2025 12:44 PM CDT Edilia Pettit NP HEMATOLOGY ORDERABLES COM Final Result [facility] CLIA# [id number] [address] [place] [address] * (ABNORMAL) URINALYSIS WITH REFLEX CULTURE (03/15/2025 12:36 PM CDT) Only the most recent of3 resultswithin the time period is included. COLOR UA Pale Yellow Pale to Dark Yellow 03/15/2025 1:10 PM CDT [facility] CLARITY UA Clear Clear 03/15/2025 1:10 PM CDT [facility] SPECIFIC GRAVITY UA 1.002(L) 1.003 - 1.035 03/15/2025 1:10 PM CDT [facility] PH UA 6.0 5.0 - 8.0 03/15/2025 1:10 PM CDT [facility] LEUKOCYTE ESTERASE UA 2+(A) Negative 03/15/2025 1:10 PM CDT [facility] NITRITE UA Negative Negative 03/15/2025 1:10 PM CDT [facility] PROTEIN UA Negative Negative 03/15/2025 1:10 PM CDT [facility] GLUCOSE UA Negative Negative 03/15/2025 1:10 PM CDT [facility] KETONES UA Negative Negative 03/15/2025 1:10 PM CDT [facility] UROBILINOGEN UA Normal <2.0 mg/dL 1:10 PM CDT [facility] BILIRUBIN UA Negative Negative 03/15/2025 1:10 PM CDT [facility] BLOOD UA Negative Negative 03/15/2025 1:10 PM CDT [facility] WBC UA 3-5(A) 0 - 2 /hpf 03/15/2025 1:10 PM CDT [facility] RBC UA 0-2 0 - 2 /hpf 03/15/2025 1:10 PM CDT [facility] BACTERIA UA 1+(A) Negative /hpf 03/15/2025 1:10 PM CDT [facility] EPITHELIAL CELLS, URINE 0-5 0 - 5 /hpf 03/15/2025 1:10 PM CDT [facility] Urine URINE SPECIMEN OBTAINED BY CLEAN CATCH PROCEDURE / Unknown Collection / Unknown 03/15/2025 12:36 PM CDT 03/15/2025 12:47 PM CDT Narrative [facility] - 03/15/2025 1:10 PM CDT Based on results, a urine culture has been reflexed. Edilia Pettit NP URINE ORDERABLES Final Result Performing Organization Address City/[facility]/ZIP Co de Phone Number [facility] CLIA# [id number] [address] [place] [address] * (ABNORMAL) URINE CULTURE (03/15/2025 12:36 PM CDT) Only the most recent of2 resultswithin the time period is included. CULTURE ENTEROCOCCUS FAECALIS(A) ROBY MCG/ML 03/17/2025 11:35 AM CDT [facility] CULTURE <10,000 cfu/mL Normal urethral fernando ROBY MCG/ML 03/17/2025 11:35 AM CDT [facility] Urine URINE SPECIMEN OBTAINED BY CLEAN CATCH PROCEDURE / Unknown Collection / Unknown 03/15/2025 12:36 PM CDT 03/15/2025 1:10 PM CDT Narrative Organism Antibiotic Method Susceptibility Enterococcus faecalis AMPICILLIN ROBY MCG/ML <=2 mcg/mL: Susceptible Enterococcus faecalis VANCOMYCIN ROBY MCG/ML 1 mcg/mL: Susceptible Enterococcus faecalis DOXYCYCLINE ROBY MCG/ML 8 mcg/mL: Intermediate Enterococcus faecalis LEVOFLOXACIN ROBY MCG/ML 1 mcg/mL: Susceptible Enterococcus faecalis NITROFURANTOIN ROBY MCG/ML <=16 mcg/mL: Susceptible Edilia Pettit NP MICROBIOLOGY - GENERAL ORDERABLE S Final [id number] [address] [place] [address] * (ABNORMAL) COMPREHENSIVE METABOLIC PANEL (03/15/2025 12:36 PM CDT) Only the most recent of3 resultswithin the time period is included. SODIUM 138 136 - 145 mmol/L 03/15/2025 1:41 PM [email or web address] - [facility] POTASSIUM 3.8 3.5 - 5.0 mmol/L 03/15/2025 1:41 PM [facility] CHLORIDE 102 98 - 107 mmol/L 03/15/2025 1:41 PM [email or web address] CO2 25 22 - 29 mmol/L 03/15/2025 1:41 PM [facility] - [facility] CALCIUM 9.6 8.6 - 10.2 mg/dL 03/15/2025 1:41 PM [email or web address] - [facility] BUN 8 8 - 23 mg/dL 03/15/2025 1:41 PM [facility] - . [facility] CREATININE 0.97(H) 0.51 - 0.95 mg/dL 03/15/2025 1:41 PM [facility] - . [facility] GLUCOSE 76 74 - 99 mg/dL 03/15/2025 1:41 PM [facility] - . [facility] TOTAL PROTEIN 7.1 6.7 - 8.6 g/dL 03/15/2025 1:41 PM [facility] - [facility] ALBUMIN 4.2 3.5 - 5.2 g/dL 03/15/2025 1:41 PM [facility] - [facility] BILIRUBIN TOTAL 0.6 0.0 - 1.1 mg/dL 03/15/2025 1:41 PM [facility] - . [facility] ALKALINE PHOSPHATASE 79 35 - 104 U/L 03/15/2025 1:41 PM [facility] - [facility] AST 33(H) <33 U/L 03/15/2025 1:41 PM [facility] ALT 30 <34 U/L 03/15/2025 1:41 PM [facility] - . [facility] GFR >60 >=60 mL/min/1.7 3 sq meter 03/15/2025 1:41 PM [facility] - . [facility] Comment:eGFR calculated with 2020 CKD-EPI equation. Vegetarian diet, extremely high or low muscle mass, and may affect results. Cystatin C with Glomerular Filtration Rate is a suitable alternative for these patients. ANION GAP 11 8 - 16 mmol/L 03/15/2025 1:41 PM CDT [facility] Blood Collection / Unknown 03/15/2025 12:36 PM CDT 03/15/2025 1:01 PM CDT Narrative [facility] - 03/15/2025 1:41 PM CDT Samples containing indocyanine green cause interferences on Total and/or Direct Bilirubin and must not be measured. Edilia Pettit NP CHEMISTRY ORDERABLES Final Resul t [facility] CLIA# [id number] [address] [address] from Last 3 Months Insurance [employer] [place] [employer] [place] [id number] RX [employer] (INTERNAL) [facility] [employer] [facility] RX [facility] [employer] Advance Directives For more information, please contact: [phone] * Full Code (Latest Code Status on File) Date Activated Date Inactivated Comments 09/12/2024 5:54 PM 09/13/2024 8:26 PM * Full Code Date Activated Date Inactivated Comments 08/07/2023 12:31 AM 08/12/2023 6:27 PM * Full Code Date Activated Date Inactivated Comments 08/06/2023 12:44 PM 08/07/2023 12:31 AM Care Teams Ve Teacher Relationship Specialty Start Date End Date Shilo Soares MD [address] [place] [phone] PCP - General Internal Medicine 04/24/23
== END 2025-04-14 13:40 | disposition home or self-care (01) ==
LOC: ANHFOHIMG 13:42
PROVIDERS: PCP Emergency Medicine; Visit Provider Emergency Medicine
DX: Z12.31 Encounter for screening mammogram for malignant neoplasm of breast (principal)
CPT/HCPCS: 77063; 77067

== ENCOUNTER 2025-05-28 09:33 | Emergency (ER) | payer OTHER, SELFPAY ==
--- NOTE | 2025-05-28 09:37 | ED.BACK ---
HPI - Back Pain/Injury General Chief Complaint: Back Pain/Injury Stated Complaint: left lower back pain Time Seen by Provider: 05/28/25 09:50 Source: patient, RN notes reviewed and old records reviewed Mode of arrival: ambulatory Limitations: no limitations History of Present Illness HPI Narrative: 64-year-old female presents to the [facility] with left lumbar back pain since yesterday. Did take ibuprofen and Tylenol this morning. Denies any injury. No loss or retention of bowel or bladder. No numbness or tingling in extremities. No heavy lifting pushing or pulling. No midline tenderness. Denies urinary symptoms. Denies abdominal pain. No history of kidney stones. Treatments prior to arrival: NSAIDS and acetaminophen Related Data Home Medications ?Medication ?Instructions ?Recorded ?Confirmed ?Last Taken ?Type loratadine 10 mg tablet (Claritin) 10 mg PO DAILY 08/26/23 12/07/24 Unknown History olaparib 100 mg tablet (Lynparza) 200 mg PO BID 07/27/24 12/07/24 Unknown History Allergies Allergy/AdvReac Type Severity Reaction Status Date / Time ciprofloxacin (From Cipro) AdvReac Hives Verified 05/28/25 09:47 penicillin V (From Pen-Vee K) AdvReac Hives Verified 05/28/25 09:47 Review of Systems Review of Systems: All systems reviewed & are unremarkable except as noted in HPI and below Constitutional: Constitutional: Reports no additional constitutional complaints ENT: Reports system reviewed and no additional complaints, except as documented Cardiovascular: Cardiovascular: Reports no additional cardiovascular complaints, Denies chest pain and Denies dyspnea Respiratory: Respiratory: Reports no additional respiratory complaints, Denies chest congestion, Denies cough and Denies dyspnea Gastrointestinal: Gastrointestinal: Reports no additional gastrointestinal complaints Musculoskeletal: Musculoskeletal: Reports as per HPI, Reports back pain (Left lumbar) and Denies numbness Integumentary/Breasts: Skin/Breast: Reports system reviewed and no additional complaints, except as docu [facility] Past Medical History Medical History Status post pneumothorax Chronic sinusitis Pneumonia Ovarian mass Abdominal ascites Hyperlipidemia Asthma Family History Family History Sibling Asthma Father Cancer Heart disease Mother Cerebrovascular accident Social History Social History (Updated 05/02/25 @ 11:25 by Leslee Lizarraga MA) Smoking status: Never smoker Tobacco type: cigarettes Alcohol intake: former Substance use: never Substance use type: does not use Do You Feel Safe in your Home?: Yes Lack of Transportation: No Lack of Food: Never True Current Housing: I Have Housing Concerned About Future Housing: No Difficulty Paying Gas/Electric Bills: No Difficulty Paying for Meds: No Currently Unemployed: No Education: Bachelor's Degree Difficulty w/ Childcare or Family Care: No Comments At the time of my signature, I reviewed and agree with the nursing past medical, surgical, social, and family history. There is no relevant family history pertinent to the patient complaint. Exam Const: General: cooperative, healthy appearing, comfortable, no acute distress, well developed, alert and well nourished Nutritional Appearance: well nourished Orientation/consciousness: patient oriented x3 Limitations: no limitations HENMT: Head: normal to inspection Mouth: Yes Normal oral and palatal mucosa present, Yes lip normal, Yes tongue normal and Yes moist mucous membranes abnormal Eyes: General: appearance normal, both eyes and all related structures Alignment and Position: alignment normal Neck: Neck: normal visual inspection, full ROM, no lymphadenopathy and no meningeal signs Chest: Chest palpation & inspection: normal inspection of the chest Resp: Effort & Inspection: normal respiratory effort and able to speak in complete sentences Auscultation: clear to auscultation bilaterally, no crackles, no rales, no rhonchi and no wheezes Cardio: Rate: regular rate Back/Spine/Pelvis: Cervical Spine: normal cervical lordosis and cervical ROM normal Thoracic/Lumbar Spine: paraspinal muscle tenderness on the left in the mid lumbar and in the lower lumbar, No thoracic spinal tenderness and No lumbar spinal tenderness Pelvis: no pain with anterior-posterior compression and no pain with lateral compression Back/spine/pelvis image:  1. Reports discomfort. Unable to reproduce. No midline tenderness. No erythema, ecchymosis or rashes are noted. Patient without pain while changing positions. Skin: General skin exam: normal color and no rashes or lesions noted Neuro: General: patient oriented x3, gait normal, moves all extremities and no meningeal signs Cognition (Neuro): normal cognition Speech: normal speech Gait exam (Neuro): Normal gait present Extrem: General: normal to inspection, full ROM, capillary refill normal and normal gait Psych: Appearance: grossly normal and well kempt Mental Status: mental status grossly normal Speech and movement: Normal speech and movement present and Clear speech present Affect: normal affect Attitude: cooperative Course Course Level of Care: Express Care Visit Vital Signs Vital signs: Vital Signs Temperature 98.0 F 05/28/25 09:38 Pulse Rate 98 05/28/25 09:38 Respiratory Rate 18 05/28/25 09:38 Blood Pressure 176/93 H 05/28/25 09:38 Pulse Oximetry 100 05/28/25 09:38 Oxygen Delivery Room Air 05/28/25 09:38 Temperature 98.0 F 05/28/25 09:38 Pulse Rate 98 05/28/25 09:38 Respiratory Rate 18 05/28/25 09:38 Blood Pressure 176/93 H 05/28/25 09:38 Pulse Oximetry 100 05/28/25 09:38 Oxygen Delivery Room Air 05/28/25 09:38 Reviewed MDM - Back Pain/Injury MDM Narrative Medical decision making narrative: Patient sitting in exam room. Patient is nontoxic, vitals stable except blood pressure elevated. Patient currently under treatment with primary care provider. Patient with left lumbar pain. Unable to reproduce. No injury. No abdominal pain. No red flag symptoms. Patient is appropriate for outpatient treatment with close follow-up Discharge instructions reviewed with patient, as well as provided in writing per nursing staff. The instructions also include specific and strict return/GO TO THE ER as well as f/u information. All questions have been answered, and the patient deny any further questions with discharge and discharge plan. Some parts of this dictation were generated by voice recognition software and may contain typographical and/or grammatical inaccuracies. Differential Diagnosis Differential diagnosis: Likely lumbar radiculopathy, sciatica, strain of lumbar region, renal colic and pyelonephritis Critical Care Time Critical Care Time Critical Care Time: No Discharge Plan Discharge Clinical Impression: Pain in left lumbar region of back, Elevated blood pressure reading Patient Disposition: Home Condition: Stable Instructions: Antibiotic Form, Low Back Strain (ED), Lower Back Exercises (ED) Additional Instructions: Today your blood pressure was 176/93. We recommend that you follow-up with your primary care provider within 2 weeks to have this rechecked. Take ibuprofen as directed to decrease inflammation and to help pain. Take Baclofen (muscle relaxer) as directed. Do not drink, drive, operate machinery, or do anything dangerous while taking this medication Exercise:Combine aerobic exercise, like walking or swimming, with specific exercises to keep the muscles in your back and abdomen strong and flexible. Proper Lifting:Be sure to lift heavy items with your legs, not your back. Do not bend over to pick something up. Keep your back straight and bend at your knees. Avoid Smoking:Both the smoke and the nicotine cause your spine to age faster than normal. Proper Posture:Good posture is important for avoiding future problems. A therapist can teach you how to safely stand, sit, and lift. Use warm moist heat to help with pain. Using topical such as Biofreeze, Aurelio-Salcido or Aspercreme can also help Follow up with Primary provider in 2-3 days, This may become a chronic condition and they will be the one to help manage your pain and order additional testing. Go to the nearest ER if you develop problems with bladder/bowel function, weakness or loss of feeling in one or both of your legs. Patient Language: Malaysian Prescriptions: New baclofen 10 mg tablet 10 mg PO TID PRN (Reason: muscle pain) Qty: 15 0RF ibuprofen 600 mg tablet 600 mg PO TID PRN (Reason: fever or pain) Qty: 30 0RF No Action loratadine [Claritin] 10 mg tablet 10 mg PO DAILY Lynparza 100 mg tablet 200 mg PO BID losartan 50 mg tablet 50 mg PO DAILY Qty: 90 2RF fluticasone propion-salmeterol [Advair Diskus] 250-50 mcg/dose blister with device See Rx Instructions .ROUTE .COMPLEX Qty: 180 2RF Dose Instruction: USE 1 INHALATION ORALLY TWICE DAILY Rx Instructions: USE 1 INHALATION ORALLY TWICE DAILY albuterol sulfate 90 mcg/actuation HFA aerosol inhaler 1 puff inhalation Q4H PRN (Reason: shortness of breath or wheezing) Qty: 25.5 3RF Rx Instructions: 3-month supply atorvastatin 20 mg tablet See Rx Instructions .ROUTE .COMPLEX Qty: 90 2RF Dose Instruction: TAKE 1 TABLET DAILY Rx Instructions: TAKE 1 TABLET DAILY Follow-up/Referrals: Shilo Soares MD [Primary Care Provider, Internal Medicine] - 1 Week Clinical Impression: Pain in left lumbar region of back; Elevated blood pressure reading Stand Alone Forms: Work/School Release IP Time of Disposition: 10:06
--- OUTSIDE RECORDS SUMMARY | 2025-05-28 09:37 | XMS_ITS | Clinical Summary ---
Author Organization [facility] Address [address] [place] [address] Care Team Providers Care Sales Performance Analyst Name Role Phone Shilo Soares MD Primary Care Provider [phone] Allergies Active Allergy Reactions Criticality Noted Date Comments Ciprofloxacin Rash Low 04/24/2023 Penicillins Rash Medium 04/19/2021 Medications albuterol sulfate HFA 90 mcg/actuation aerosol inhaler Take 1 Puff by inhalation every 6 hours as needed. 04/08/20 21 Active atorvastatin (LIPITOR) 20 mg tablet Take 20 mg by mouth daily at bedtime. 02/27/20 21 Active ondansetron (Zofran) 8 mg Tablet Take 1 Tablet (8 mg) by mouth every 8 hours as needed for Nausea. 30 Tablet 3 05/22/20 23 Active prochlorperazin e maleate (COMPAZINE) 10 mg tablet Take 1 Tablet (10 mg) by mouth every 6 hours as needed for Nausea/Emesis. 30 Tablet 3 05/22/20 23 Active Miscellaneous Medical SupplyIndicatio ns:Malignant neoplasm of ovary, unspecified laterality,Drug -induced androgenic alopecia Cranial prosthesis DX: L64.0 1 [...] daily. 120 Tablet 2 04/13/20 25 Active azelastine (ASTELIN) 137 mcg/actuation nasal spray USE 1 SPRAY IN EACH NOSTRILEVERY 12 HOURS 01/30/20 25 Active fluticasone propionate (FLONASE) 50 mcg/spray [place], Suspension nasal inhaler Administer 2 Sprays in each nostril daily. 025 Discontinu ed(Alterna te therapy prescribed ) Active Problems Problem Noted Date Diagnosed Date [...] Encounters Date Type Department Care Team Description 05/23/2025 External Device Data STL ABSTRACTION Provider, Abstract 05/10/2025 1:30 PM CDT Office Visit [facility] [address] [place] [id number] Aviva Humphries MD Maintenance antineoplastic chemotherapy (Primary Dx); Malignant neoplasm of ovary, unspecified laterality 05/10/2025 8:45 AM CDT - 05/10/2025 11:59 PM CDT Hospital Encounter [facility] [address] [place] [address] Aviva Humphries MD Discharge Disposition: Home or Self Care 05/08/2025 Orders Only [facility]nec[facility]cology [place] [address] [place] [address] Aviva Humphries MD Maintenance antineoplastic chemotherapy 04/19/2025 External Device Data STL ABSTRACTION Provider, Abstract 04/19/2025 External Device Data STL ABSTRACTION Provider, Abstract 04/18/2025 External Device Data STL ABSTRACTION Provider, Abstract 04/18/2025 External Device Data STL ABSTRACTION Provider, Abstract 04/17/2025 External Device Data STL ABSTRACTION Provider, Abstract 04/17/2025 External Device Data STL ABSTRACTION Provider, Abstract 04/16/2025 External Device Data STL ABSTRACTION Provider, Abstract 04/16/2025 External Device Data STL ABSTRACTION Provider, Abstract 04/15/2025 External Device Data STL ABSTRACTION Provider, Abstract 04/15/2025 External Device Data STL ABSTRACTION Provider, Abstract 04/14/2025 External Device Data STL ABSTRACTION Provider, Abstract 04/14/2025 External Device Data STL ABSTRACTION Provider, Abstract 04/13/2025 Orders Only [facility] [place] [address] [facility] [address] [place] [address] Edilia Pettit NP 04/13/2025 External Device Data [...] STL ABSTRACTION Provider, Abstract 04/10/2025 Orders Only [facility] [address] [place] [address] Aviva Humphries MD Maintenance antineoplastic chemotherapy 04/09/2025 [...] STL ABSTRACTION Provider, Abstract 03/26/2025 Results Follow-Up [facility] [address] [place] [address] CHEST ABDOMEN PELVIS W CONT 03/26/2025 External Device Data STL ABSTRACTION Provider, Abstract 03/25/2025 External Device Data STL ABSTRACTION Provider, Abstract 03/24/2025 1:27 PM CDT - 03/24/2025 11:59 PM CDT Hospital Encounter [facility] [address] [place] [address] Aviva Humphries MD Discharge Disposition: Home or [...] STL ABSTRACTION Provider, Abstract 03/17/2025 Results Follow-Up [facility] [place] [address] [facility] [address] [place] [address] Edilia Pettit NP CANCER ANTIGEN 125, URINALYSIS WITH REFLEX CULTURE, CBC WITH DIFFERENTIAL, Additional followed-up results: 3 03/17/2025 External Device Data STL ABSTRACTION Provider, Abstract 03/16/2025 Telephone [facility] [place] [address] [address] [place] [address] Aviva Humphries MD Needs Appointment 03/16/2025 External Device Data STL ABSTRACTION Provider, Abstract 03/15/2025 1:49 PM CDT - 03/15/2025 11:59 PM CDT Hospital Encounter [facility] [address] [place] [address] Edilia Pettit NP Infusion Chair 5, 2nd Floor Hall Discharge Disposition: Home or Self Care 03/15/2025 1:30 PM CDT Office Visit [facility]necologic [facility]cology [place] [address] [place] [address] Edilia Pettit NP Maintenance antineoplastic chemotherapy (Primary Dx); Malignant neoplasm of ovary, unspecified laterality (CMS/HCC) 03/15/2025 10:05 AM CDT - 03/15/2025 11:59 PM CDT Hospital Encounter [facility] [address] [place] [address] Aviva Humphries MD Discharge Disposition: Home or [...] who hurts you emotionally and/or physically? No 05/10/2025 Food Insecurity Answer Date Recorded Patient needs [...] Sign Reading Time Taken Comments Blood Pressure 118/66 05/10/2025 1:23 PM CDT Pulse 97 05/10/2025 1:23 PM CDT Temperature 37 C (98.6 F) 05/10/2025 1:23 PM CDT Respiratory Rate 18 02/22/2025 12:50 PM CDT Oxygen Saturation 95% 05/10/2025 1:23 PM CDT Inhaled Oxygen Concentration - - Weight 53.7 kg (118 lb 6 oz) 05/10/2025 1:23 PM CDT Height 167.6 cm (5' 6) 05/10/2025 1:23 PM CDT Body Mass Index 19.11 05/10/2025 1:23 PM CDT Plan of Treatment Upcoming Encounters Date Type Department Care Team (Late st Contact Info) Description 07/05/2025 1:00 PM CORPORATE FINANCIAL ANALYST Office Visit [facility] Gynecologic Oncology Hall [address] [place] [phone] Edilia Pettit NP [address] [place] [address] 07/10/2025 11:00 AM CORPORATE FINANCIAL ANALYST Appointment [facility] CT Scan [address] [place] [address] Aviva Humphries MD [address] [place] [address] Health Maintenance Due Date Last [...] VACCINE (60+ or ) (1 - Risk 50-74 years 1-dose series) 11/26/2009 OSTEOPOROSIS SCREENING 11/26/2024 INFLUENZA VACCINE (#1) 2025 Medical Devices Implanted Type Area Machine Technician Device Identifier Shelf Expiration Date Model / Serial / Lot Hemostat Lanette Ah Powder 3gm [id number] - [id number] Implanted:Qt y: 1 on 08/06/2023 by Aviva Humphries MD at [facility] Hemostatic N/A: Abdomen BARD DAVOL [id number] 12/06/2027 [id number] / / [id number] Hemostat Lanette Ah Powder 3gm [id number] - [id number] Implanted:Qt y: 1 on 08/06/2023 by Aviva Humphries MD at [facility] Hemostatic N/A: Abdomen BARD DAVOL [id number] 12/06/2027 [id number] / / [id number] Port- 023 Implanted:Qt y: 1 on 05/25/2023 by Casie Rajput MD Right: Chest Wall 01/07/2025 [id number] / / [id number] Description:BARD 8FR SLIM PO [place] IMPLANTED INTO RIGHT CHEST WALL ON 05/25/[address] RAJPUT Procedures Procedure Name Priority Date/Time Associated Diagnosis Comments DIFFERENTIAL, MANUAL Routine 05/10/2025 9:07 AM CDT Maintenance antineoplastic chemotherapy CBC WITH DIFFERENTIAL Routine 05/10/2025 9:07 AM CDT Maintenance antineoplastic chemotherapy CANCER ANTIGEN 125 Routine 05/10/2025 9: 07 AM CDT Maintenance antineoplastic chemotherapy CANCER ANTIGEN 125 [...] Last 3 Months Results * MANUAL DIFFERENTIAL (05/10/2025 9:07 AM CDT) Only the most recent of2 resultswithin the time period is included. Pathologist [facility] PLATELET EST. Consistent w Count 05/10/2025 9:45 AM CDT [facility] ANISOCYTOSIS 1+ /hpf 05/10/2025 9:45 AM CDT [facility] POIKILOCYTES 1+ /hpf 05/10/2025 9:45 AM CDT [facility] MACROCYTES 2+ /hpf 05/10/2025 9:45 AM CDT [facility] Blood Collection / Unknown 05/10/2025 9:07 AM CDT 05/10/2025 9:15 AM CDT Edilia Pettit NP HEMATOLOGY ORDERABLES COM Final Result [facility] Affirm [facility]# [id number] [address] [place] [address] * (ABNORMAL) CBC WITH DIFFERENTIAL (05/10/2025 9:07 AM CDT) Only the most recent of3 resultswithin the time period is included. Pathologist [facility] WBC 4.3 4.0 - 9.8 K/uL 05/10/2025 9:20 AM CDT [facility] LABORATORY SERVICES [facility] NRBCS 1 % 05/10/2025 9:20 AM CDT [facility] LABORATORY [facility] RBC 3.28(L) 3.90 - 4.90 M/uL 05/10/2025 9:20 AM CDT [facility] LABORATORY [facility]. [facility] HEMOGLOBIN 12.8 11.8 - 14.8 g/dL 05/10/2025 9:20 AM T [facility] LABORATORY [facility]. [facility] HEMATOCRIT 37.4 35.5 - 44.0 % 05/10/2025 9:20 AM CDT [facility] LABORATORY [facility]. [facility] MCV 114.0(H) 82.0 - 99.0 fL 05/10/2025 9:20 AM CDT [facility] - [facility] MCH 39.0(H) 27.2 - 32.6 pg 05/10/2025 9:20 AM CDT [facility] - [facility] MCHC 34.2 31.5 - 35.5 g/dL 05/10/2025 9:20 AM CDT [facility] - [facility] RDW 17.4(H) 11.5 - 14.5 % 05/10/2025 9:20 AM CDT [facility] - [facility] RDW-STDEV 73.6(H) 37.1 - 48.7 fL 05/10/2025 9:20 AM CDT [facility] - [facility] PLATELETS 166 140 - 350 K/uL 05/10/2025 9:20 AM CDT [facility] - [facility] MPV 9.9 9.3 - 12.4 fL 05/10/2025 9:20 AM CDT [facility] - [facility] NEUTROPHILS 56 % 05/10/2025 9:20 AM CDT [facility] - [facility] LYMPHOCYTES 36 % 05/10/2025 9:20 AM CDT [facility] - . [facility] MONOCYTES 7 % 05/10/2025 9:20 AM CDT [facility] - [facility] [place] EOSINOPHILS 1 % 05/10/2025 9:20 AM CDT [facility] - . [facility] BASOPHILS 1 % 05/10/2025 9:20 AM CDT [facility] - [facility] IMMATURE GRANULOCYTES 0 % 05/10/2025 9:20 AM CDT [facility] - [facility] NEUTROPHIL ABSOLUTE 2.36 1.90 - 7.00 K/uL 05/10/2025 9:20 AM CDT [facility] - . [facility] LYMPHOCYTE ABSOLUTE 1.52 0.70 - 4.50 K/uL 05/10/2025 9:20 AM CDT [facility] - . [facility] MONOCYTE ABSOLUTE 0.29 0.10 - 1.30 K/uL 05/10/2025 9:20 AM CDT [facility] - . [facility] EOSINOPHIL ABSOLUTE 0.05 0.00 - 0.70 K/uL 05/10/2025 9:20 AM CDT [facility] - . [facility] BASOPHILS ABSOLUTE 0.02 0.00 - 0.20 K/uL 05/10/2025 9:20 AM CDT [facility] IMMATURE GRANULOCYTES ABSOLUTE 0.01 0.00 - 0.03 K/uL 05/10/2025 9:20 AM CDT [facility] LABORATORY [facility] Blood Collection / Unknown 05/10/2025 9:07 AM CDT 05/10/2025 9:15 AM CDT Edilia Pettit NP HEMATOLOGY ORDERABLES Final Resu lt [facility] CLIA# [id number] [address] [place] [address] * CANCER ANTIGEN 125 (05/10/2025 9:07 AM CDT) Only the most recent of3 resultswithin the time period is included. CA 125 6 <35 U/mL [employer] Comment: This test was performed using the Siemens Chemiluminescent method. Values obtained from different assay methods cannot be used interchangeably. CA 125 levels, regardless of value, should not be interpreted as absolute evidence of the presence or absence of disease. Test Performed at: [facility] [address] [place] [phone] Radha Perez MD Blood 05/10/2025 9:07 AM CDT 05/10/2025 9:32 AM CDT Edilia Pettit NP CHEMISTRY ORDERABLES Final Resul t [facility] [phone] [employer] [address] * CT CHEST ABDOMEN PELVIS W CONT [...] Reconstruction Technique. DICTATION LOCATION: Location 1 - [facility] 03/26/2025 11:27 AM CDT EXAM: CT CHEST, [...] Reconstruction Technique. DICTATION LOCATION: Location 1 - [facility] us Aviva Humphries MD CT ORDERABLES Final Result * (ABNORMAL) URINALYSIS WITH REFLEX CULTURE (03/15/2025 12:36 PM CDT) COLOR UA Pale Yellow Pale to Dark Yellow 03/15/2025 1:10 PM CDT [facility] - [facility] CLARITY UA Clear Clear 03/15/2025 1:10 PM CDT [facility] - [facility] SPECIFIC GRAVITY UA 1.002(L) 1.003 - 1.035 03/15/2025 1:10 PM CDT [facility] - [facility] PH UA 6.0 5.0 - 8.0 03/15/2025 1:10 PM CDT [facility] - [facility] LEUKOCYTE ESTERASE UA 2+(A) Negative 03/15/2025 1:10 PM CDT [facility] - . [facility] NITRITE UA Negative Negative 03/15/2025 1:10 PM CDT [facility] - . [facility] PROTEIN UA Negative Negative 03/15/2025 1:10 PM CDT [facility] - . [facility] GLUCOSE UA Negative Negative 03/15/2025 1:10 PM CDT [facility] - . [facility] KETONES UA Negative Negative 03/15/2025 1:10 PM CDT [facility] LABORATORY [facility] - [facility] UROBILINOGEN UA Normal <2.0 mg/dL 1:10 PM CDT [facility] - [facility] BILIRUBIN UA Negative Negative 03/15/2025 1:10 PM CDT [facility] LAB[facility]ORY [facility] - [facility] BLOOD UA Negative Negative 03/15/2025 1:10 PM CDT [facility] LABOR[facility] - [facility] WBC UA 3-5(A) 0 - 2 /hpf 03/15/2025 1:10 PM CDT [facility] LABORATORY [facility] - . [facility] RBC UA 0-2 0 - 2 /hpf 03/15/2025 1:10 PM CDT [facility]OR[facility]ORY [facility] - [facility] BACTERIA UA 1+(A) Negative /hpf 03/15/2025 1:10 PM CDT [facility] - [facility] EPITHELIAL CELLS, URINE 0-5 0 - 5 /hpf 03/15/2025 1:10 PM CDT [facility] Urine URINE SPECIMEN OBTAINED BY CLEAN CATCH PROCEDURE / Unknown Collection / Unknown 03/15/2025 12:36 PM CDT 03/15/2025 12:47 PM CDT Narrative [facility] LABORATORY [facility] - 03/15/2025 1:10 PM CDT Based on results, a urine culture has been reflexed. Edilia Pettit NP URINE ORDERABLES Final Result [facility]# [id number] [address] [facility] [place] [address] * (ABNORMAL) URINE CULTURE (03/15/2025 12:36 PM CDT) CULTURE ENTEROCOCCUS FAECALIS(A) ROBY MCG/ML 03/17/2025 11:35 AM CDT [facility] CULTURE <10,000 cfu/mL Normal urethral fernando ROBY MCG/ML 03/17/2025 11:35 AM CDT [facility] Urine URINE SPECIMEN OBTAINED BY CLEAN CATCH [...] MICROBIOLOGY - GENERAL ORDERABLE S Final Result [facility]ATORY SERVICES - [facility] CLIA# [id number] [address] [place] [address] * (ABNORMAL) COMPREHENSIVE METABOLIC PANEL (03/15/2025 12:36 PM CDT) SODIUM 138 136 - 145 mmol/L 03/15/2025 1:41 PM CDT [facility] - [facility] [place] POTASSIUM 3.8 3.5 - 5.0 mmol/L 03/15/2025 1:41 PM CDT [facility] - [facility] [place] CHLORIDE 102 98 - 107 mmol/L 03/15/2025 1:41 PM CDT [facility] CO2 25 22 - 29 mmol/L 03/15/2025 1:41 PM CDT [facility] CALCIUM 9.6 8.6 - 10.2 mg/dL 03/15/2025 1:41 PM CDT [facility] BUN 8 8 - 23 mg/dL 03/15/2025 1:41 PM CDT [facility] CREATININE 0.97(H) 0.51 - 0.95 mg/dL 03/15/2025 1:41 PM CDT [facility] GLUCOSE 76 74 - 99 mg/dL 03/15/2025 1:41 PM CDT [facility] TOTAL PROTEIN 7.1 6.7 - 8.6 g/dL 03/15/2025 1:41 PM CDT [facility] ALBUMIN 4.2 3.5 - 5.2 g/dL 03/15/2025 1:41 PM T [facility] LABORATORY [facility] BILIRUBIN TOTAL 0.6 0.0 - 1.1 mg/dL 03/15/2025 1:41 PM [facility] ALKALINE PHOSPHATASE 79 35 - 104 U/L 03/15/2025 1:41 PM [facility] AST 33(H) <33 U/L 03/15/2025 1:41 PM [facility] ALT 30 <34 U/L 03/15/2025 1:41 PM [facility] GFR >60 >=60 mL/min/1.7 3 sq meter 03/15/2025 1:41 PM [facility] Comment:eGFR calculated with 2020 CKD-EPI equation. Vegetarian diet, extremely high or low muscle mass, and may affect results. Cystatin C with Glomerular Filtration Rate is a suitable alternative for these patients. ANION GAP 11 8 - 16 mmol/L 03/15/2025 1:41 PM [facility] Blood Collection / Unknown 03/15/2025 12:36 PM CDT 03/15/2025 1:01 PM CDT Narrative [facility] - 03/15/2025 1:41 PM CDT Samples containing indocyanine green cause interferences on Total and/or Direct Bilirubin and must not be measured. Edilia Pettit NP CHEMISTRY ORDERABLES Final Resul t [facility]# [id number] [address] [place] [address] from Last 3 Months Insurance AETNA CHOICE POS II AETNA CHOICE POS II RX [place] [employer] (INTERNAL) [facility] RX [facility] [employer] Advance Directives For more information, please contact: [phone] * Full Code (Latest Code Status on File) Date Activated Date Inactivated Comments 09/12/2024 5:54 PM 09/13/2024 8:26 PM * Full Code Date Activated Date Inactivated Comments 08/07/2023 12:31 AM 08/12/2023 6:27 PM * Full Code Date Activated Date Inactivated Comments 08/06/2023 12:44 PM 08/07/2023 12:31 AM Care Teams Sales Performance Analyst Relationship Specialty Start Date End Date Shilo Soares MD [address] [place] [address] PCP - General Internal Medicine 04/24/23
--- OUTSIDE RECORDS SUMMARY | 2025-05-28 09:37 | XMS_ITS | Clinical Summary ---
Author Organization [facility] Address [address] [place] [address] Care Team Providers Care Security Technician Name Role Phone Unavailable Primary Care Provider [...] Vaccine ( - 2023-2 5 season) 2025 Influenza Adult (#1) 2025 RSV Immunization or 60+ Years (1 - 1-dose 75+ series) 11/26/2034 Hepatitis A Vaccines Aged Out No long er eligible based on patient's age to complete this topic Meningococcal B Vaccine Aged Out No l onger eligible based on patient's age to complete this topic Meningococcal Vaccine Aged Out No trav ketan eligible based on patient's age to complete this topic RSV Immunizations Under 20 Months Aged Out No longer eligible based on patient's age to complete this topic
--- OUTSIDE RECORDS SUMMARY | 2025-05-28 09:37 | XMS_ITS ---
Author Organization [facility] Marlon Swanson Address [address] [place] [address] [place] [address] Care Team Providers Care Supervisor Boat Outfitting Name Role Phone Shilo Soares MD Primary Care Provider [phone] Active Problems Problem Noted Date Diagnosed Date [...] neoplasm of ovary, unspecified laterality Treatment Medications No medications scheduled. OP ONC HYDRATION* Plan Start Date:11/24/2024 Plan Provider:Edilia Pettit NP Linked Problems Malignant neoplasm of ovary, unspecified laterality Treatment Medications No medications scheduled. OP ONC OVARIAN_PACLITAXEL_CARBOPLATIN_BEVACIZUMAB (START ON CYCLE 2)_EVERY 21 DAYS X 6 FOLLOWED BY BEVACIZUMAB_EVERY 21 DAYS X 16* Plan Start Date:05/25/2023 Plan Provider:Aviva Humphries MD Linked Problems Malignant neoplasm of ovary, unspecified laterality Treatment Medications bevacizumab-awwb (MVASI) IVP BCARBOplatin (PARAPLATIN) [...]
[2025-05-28 09:38] VITALS: BP 176/93; PULSE 98; RESP 18; TEMP 36.7; O2SAT 100
== END 2025-05-28 10:10 | disposition home or self-care (01) ==
PROVIDERS: Emergency Provider Nurse Practitioner; PCP Emergency Medicine
DX: M54.50 Low back pain, unspecified (principal); R03.0 Elevated blood-pressure reading, without diagnosis of hypertension; E78.5 Hyperlipidemia, unspecified; J45.909 Unspecified asthma, uncomplicated
CPT/HCPCS: 99213; G0463

== ENCOUNTER 2025-06-12 06:59 | Outpatient (CLI) | payer OTHER, SELFPAY ==
[2025-06-12 08:02] LABS: Alanine Aminotransferase 33 U/L (6-35); Albumin Level 4.2 g/dL (3.5-5.1); Alkaline Phosphatase 67 U/L (38-126); Anion Gap 5 mmol/L (4-12); Aspartate Amino Transferase 40 U/L (14-36); Bilirubin,Total 0.6 mg/dL (0.2-1.3); Blood Urea Nitrogen 12 mg/dL (7-17); Calcium 9.2 mg/dL (8.4-10.2); Carbon Dioxide 28 mmol/L (22-30); Chloride 104 mmol/L (98-107); Cholesterol 129 mg/dL (0-200); Estimated Glomerular Filt Rate 58; Glucose 101 mg/dL (65-110); HDL Direct 50 mg/dL; Sodium 137 mmol/L (137-145); Total Protein 7.1 g/dL (6.3-8.2); Triglycerides 100 mg/dL (<150)
[2025-06-12 08:09] LABS: Potassium 4.0 mmol/L (3.4-5.0)
== END 2025-06-12 07:00 | disposition home or self-care (01) ==
LOC: ANHLAB 07:00
PROVIDERS: PCP Emergency Medicine; Visit Provider Emergency Medicine
DX: E78.5 Hyperlipidemia, unspecified (principal); E55.9 Vitamin D deficiency, unspecified
CPT/HCPCS: 36415; 80053; 80061; 82306

== ENCOUNTER 2025-06-14 15:53 | Outpatient (CLI) | payer OTHER, SELFPAY ==
--- NOTE | ~2025-06-14 | XR_ITS ---
XR thoracolumbar Indication: low back pain; chronic; no injury Comparison: None Findings: The vertebral heights are intact. No fracture or subluxation. Moderate loss of disc at L4-5 and L5-S1 Soft tissues unremarkable Impression: No acute abnormality. Reviewed, dictated and finalized at location P. IC WORKS TECHNICIAN Impression: No acute abnormality.
== END 2025-06-14 15:54 | disposition home or self-care (01) ==
LOC: ANHIMG 15:55
PROVIDERS: PCP Emergency Medicine; Visit Provider Emergency Medicine
DX: M54.9 Dorsalgia, unspecified (principal)
CPT/HCPCS: 72080

== ENCOUNTER 2025-06-28 13:50 | Outpatient (CLI) | payer OTHER, SELFPAY ==
--- NOTE | ~2025-06-28 | DEXA_ITS ---
Bone Density Report Name: MARYNovember Age: 64 Sex: Female Ethnicity: White Date of : 1960 Indication: postmenopausal; screening for osteoporosis; height loss; prior fracture; cancer; asthma or emphysema; Referring Provider: KRISTIE COWAN Study: Bone densitometry was performed. Exam Date: June 28, 2025 Accession number: [id number] Bone Density: Region BMD T-score Z-score Classification AP Spine(L1-L4) 0.803 -2.2 -0.4 Osteopenia Femoral Neck (Left) 0.537 -2.8 -1.3 Osteoporosis Total Hip (Left) 0.735 -1.7 -0.4 Osteopenia Femoral Neck (Right) 0.605 -2.2 -0.7 Osteopenia Total Hip (Right) 0.767 -1.4 -0.2 Osteopenia Total Hip Mean 0.751 -1.6 -0.3 Osteopenia World Health Organization criteria for BMD impression classify patients as: Normal (T-score at or above -1.0), Osteopenia (T-score between -1.0 and -2.5), or Osteoporosis (T-score at or below -2.5). 10-year Fracture Risk: FRAX not reported because: Some T-score for Spine Total or Hip Total or Femoral Neck at or below -2.5 Clinical Information Provided by Patient: Has had a low trauma fracture Smokes Has the following medical conditions: Asthma or Emphysema, Cancer Patient maximum height was 66.0 Menopause Age: 54 No regular weight bearing exercise Drinks caffeinated beverages Onset of menses at age 14 Number of children 3 Impression: The patient has established osteoporosis, based on the Left Femoral Neck T-score and the existence of a prior fracture. The patient has risk factors, including: smoking, previous fracture. Discussion: HIGH RISK OF FRACTURE. BONE DENSITY IS UNDESIRABLY LOW AT ONE OR MORE SKELETAL SITES, CONSISTENT WITH POSTMENOPAUSAL OSTEOPOROSIS. This patient's lowest T-score, in a patient who has previously fractured, meets the World Health Organization's (WHO) criteria for severe osteoporosis. In untreated patients, the risk of osteoporotic fracture increases approximately two-fold for each 1.0 SD decrease in T-score. Low bone density is not the only risk factor for fracture; also consider factors such as patient's age, frailty or poor health, risk of falling, risk of injury, previous osteoporotic fracture, family history of osteoporosis, cigarette smoking, low body weight, etc. Not everyone with low bone mineral density has osteoporosis; osteomalacia and other metabolic bone disorders should also be considered. Patients who have osteoporosis should be evaluated for specific diseases and conditions (secondary causes) that may cause or contribute to bone loss. The [place] Association of Clinical Endocrinologists (AACE) and National Osteoporosis Foundation (NOF) recommend pharmacologic intervention for all postmenopausal women whose T-score is in this range. The patient should follow a healthful lifestyle (good nutrition with adequate calcium and vitamin D, and appropriate weight-bearing exercise). Follow-Up: Consider a repeat BMD and Vertebral Fracture Assessment (VFA) exam in 2 years or sooner if medically necessary, to reassess this patient's status. Reported by: NISHANT on 06/28/2025 2:32:00 PM. Reviewed, dictated and finalized at location A.
== END 2025-06-28 13:51 | disposition home or self-care (01) ==
LOC: ANHFOHIMG 13:51
PROVIDERS: PCP Emergency Medicine; Visit Provider Emergency Medicine
DX: Z78.0 Asymptomatic menopausal state (principal); M85.88 Other specified disorders of bone density and structure, other site; M81.0 Age-related osteoporosis without current pathological fracture; M85.852 Other specified disorders of bone density and structure, left thigh; M85.851 Other specified disorders of bone density and structure, right thigh
CPT/HCPCS: 77080

== ENCOUNTER 2025-07-13 08:03 | Emergency (ER) | payer OTHER, SELFPAY ==
--- NOTE | 2025-07-13 08:07 | ED.URI ---
HPI - URI/Sore Throat General Chief Complaint: Upper Respiratory Infection Stated Complaint: poss sinus infection Time Seen by Provider: 07/13/25 08:11 Source: patient, RN notes reviewed and old records reviewed Mode of arrival: ambulatory Limitations: no limitations History of Present Illness HPI Narrative: 64-year-old female with a history of hypertension, high cholesterol, asthma presents with 2 weeks of sinus congestion cough, chest congestion. Patient is a smoker, half pack a day. patient reports 2 weeks of sinus congestion, cough, chest congestion. Reports that she did take Motrin and Tylenol, Delsym 1 time and a decongestant 1 time with no relief. Treatments prior to arrival: acetaminophen, ibuprofen and cold medicine Related Data Home Medications ?Medication ?Instructions ?Recorded ?Confirmed ?Last Taken ?Type loratadine 10 mg tablet (Claritin) 10 mg PO DAILY 08/26/23 06/26/25 Unknown History olaparib 100 mg tablet (Lynparza) 200 mg PO BID 07/27/24 06/26/25 Unknown History azelastine 137 mcg (0.1 %) nasal 137 mcg intranasal Q12H 06/14/25 06/26/25 Unknown History spray magnesium oxide 400 mg PO QHS 06/14/25 06/26/25 Unknown History pyridoxine (vitamin B6) 100 mg 100 mg PO DAILY 06/26/25 06/26/25 Unknown History tablet Allergies Allergy/AdvReac Type Severity Reaction Status Date / Time baclofen AdvReac Intermediate Confusion Verified 07/13/25 08:21 ciprofloxacin (From Cipro) AdvReac Hives Verified 07/13/25 08:21 penicillin V (From Pen-Vee K) AdvReac Hives Verified 07/13/25 08:21 Review of Systems Review of Systems: All systems reviewed & are unremarkable except as noted in HPI and below Constitutional: Constitutional: Reports no additional constitutional complaints ENT: Reports as per HPI, Reports nasal congestion, Reports sinus pressure and Reports sore throat Cardiovascular: Cardiovascular: Reports no additional cardiovascular complaints, Denies chest pain and Denies dyspnea Respiratory: Respiratory: Reports as per HPI, Reports chest congestion, Reports cough and Denies dyspnea Musculoskeletal: Musculoskeletal: Reports no additional musculoskeletal complaints Integumentary/Breasts: Skin/Breast: Reports system reviewed and no additional complaints, except as docu PMFSH Past Medical History Medical History Status post pneumothorax Chronic sinusitis Pneumonia Ovarian mass Abdominal ascites Hyperlipidemia Asthma Family History Family History Sibling Asthma Father Cancer Heart disease Mother Cerebrovascular accident Social History Social History Social History: never smoker Smoking status: Current every day smoker Tobacco type: cigarettes Alcohol intake: former Substance use: never Substance use type: does not use Lack of Transportation: No Lack of Food: Never True Current Housing: I Have Housing Concerned About Future Housing: No Difficulty Paying Gas/Electric Bills: No Difficulty Paying for Meds: No Currently Unemployed: No Education: Bachelor's Degree Difficulty w/ Childcare or Family Care: No Comments At the time of my signature, I reviewed and agree with the nursing past medical, surgical, social, and family history. There is no relevant family history pertinent to the patient complaint. Exam Const: General: cooperative, healthy appearing, comfortable, no acute distress, well developed, alert and well nourished Nutritional Appearance: well nourished Orientation/consciousness: patient oriented x3 Limitations: no limitations HENMT: Head: normal to inspection Ears: hearing grossly normal bilaterally, external ears normal, TM's normal bilaterally, mastoids normal, no periauricular adenopathy and Abnormal EAC present Face/Nose/Sinus: Normal nasal mucous membranes and turbinates present Face and sinus: normal facial exam, face symmetric, no ecchymosis and sinus tenderness frontal and maxillary Mouth: Yes Normal oral and palatal mucosa present, Yes lip normal, Yes tongue normal and Yes moist mucous membranes abnormal Throat: posterior oropharynx normal, uvula midline and no uvular edema Eyes: General: appearance normal, both eyes and all related structures Alignment and Position: alignment normal Neck: Neck: normal visual inspection, full ROM, no lymphadenopathy and no meningeal signs Chest: Chest palpation & inspection: normal inspection of the chest Resp: Effort & Inspection: normal respiratory effort and able to speak in complete sentences Auscultation: clear to auscultation bilaterally, no crackles, no rales, no rhonchi, no wheezes and diminished lung sounds bilateral in the lower lung blair Cardio: Rate: regular rate Skin: General skin exam: normal color and no rashes or lesions noted Neuro: General: patient oriented x3, gait normal, moves all extremities and no meningeal signs Cognition (Neuro): normal cognition Speech: normal speech Gait exam (Neuro): Normal gait present Extrem: General: normal to inspection, full ROM, capillary refill normal and normal gait Psych: Appearance: grossly normal and well kempt Mental Status: mental status grossly normal Speech and movement: Normal speech and movement present and Clear speech present Affect: normal affect Attitude: cooperative Course Course Level of Care: Express Care Visit Vital Signs Vital signs: Vital Signs Temperature 97.8 F 07/13/25 08:08 Pulse Rate 98 07/13/25 08:08 Respiratory Rate 16 07/13/25 08:08 Blood Pressure 139/77 07/13/25 08:08 Pulse Oximetry 100 07/13/25 08:08 Oxygen Delivery Room Air 07/13/25 08:08 Temperature 97.8 F 07/13/25 08:08 Pulse Rate 98 07/13/25 08:08 Respiratory Rate 16 07/13/25 08:08 Blood Pressure 139/77 07/13/25 08:08 Pulse Oximetry 100 07/13/25 08:08 Oxygen Delivery Room Air 07/13/25 08:08 Reviewed MDM MDM Narrative Medical decision making narrative: patient sitting in exam room. Patient is nontoxic, vitals are stable. Patient presents with 2 weeks of sinus congestion, chest congestion, cough. Lungs clear but diminished. Patient is a smoker. Patient due to length of symptoms, smoker, asthma will prescribe doxycycline. Patient is appropriate for outpatient treatment with close follow-up Discharge instructions reviewed with patient, as well as provided in writing per nursing staff. The instructions also include specific and strict return/GO TO THE ER as well as f/u information. All questions have been answered, and the patient deny any further questions with discharge and discharge plan. Some parts of this dictation were generated by voice recognition software and may contain typographical and/or grammatical inaccuracies. Differential Diagnosis Differential Diagnosis: Differential diagnostic considerations for upper respiratory infection include upper respiratory infection, otitis media, sinusitis, viral infection, bronchitis, influenza, pharyngitis, strep, uvulitis.? Critical Care Time Critical Care Time Critical Care Time: No Discharge Plan Discharge Clinical Impression: Sinusitis Qualifiers: Sinusitis location: pansinusitis Chronicity: acute Recurrence: not specified as recurrent Qualified Code(s): J01.40 - Acute pansinusitis, unspecified Upper respiratory infection Qualifiers: URI type: acute nasopharyngitis (common cold) Qualified Code(s): J00 - Acute nasopharyngitis [common cold] Patient Disposition: Home Condition: Stable Instructions: Antibiotic Form, Sinusitis (ED) Additional Instructions: It is very important to treat your symptoms. Drink plenty of water, Gatorade, Pedialyte, ice pops or Jell-O. -Alternate Tylenol and Motrin per package directions for fever or pain. You can alternate every 4 hours -Antihistamine medication such as Zyrtec/Claritin during the day can help improve symptoms. -doing daily nasal irrigations can help relieve pressure your sinuses. Things like a Neti pot Or saline irrigations -Use Flonase or Astelin twice a day for 5 days then daily to help reduce the inflammation and dry up your sinuses. -You can also use Mucinex or Coricidin HBP. Be sure to drink plenty of water with this medication at least 8 ounces with every dose and it is important to drink 8 to 10 glasses of water per day. Water is a natural decongestant -Eat and drink things that are easy to swallow, like tea or soup, or popsicles. -Oral rinses such as: Salt water gargles and/or may use topical anesthetic (eg. Chloraseptic spray) or lozenges to relieve dryness or throat pain). -Frequent hand washing or hand senior qa automation engineer is one of the best ways to prevent spread of infection. -Using a vaporizer or humidifier at night will also help thin secretions and help with coughing up phlegm. -Follow up with primary care provider in 7-10 days if condition is not improving - For new or worsening symptoms go directly to the nearest ER Patient Language: Italian Prescriptions: New doxycycline monohydrate 100 mg tablet 100 mg PO BID Qty: 14 0RF No Action loratadine [Claritin] 10 mg tablet 10 mg PO DAILY Lynparza 100 mg tablet 200 mg PO BID losartan 50 mg tablet 50 mg PO DAILY Qty: 90 2RF magnesium oxide 400 mg magnesium capsule 400 mg PO QHS azelastine 137 mcg (0.1 %) spray,non-aerosol 137 mcg intranasal Q12H Rx Instructions: administer into each nostril fluticasone propion-salmeterol [Advair Diskus] 250-50 mcg/dose blister with device See Rx Instructions .ROUTE .COMPLEX Qty: 180 2RF Dose Instruction: USE 1 INHALATION ORALLY TWICE DAILY Rx Instructions: USE 1 INHALATION ORALLY TWICE DAILY albuterol sulfate 90 mcg/actuation HFA aerosol inhaler 1 puff inhalation Q4H PRN (Reason: shortness of breath or wheezing) Qty: 25.5 3RF Rx Instructions: 3-month supply pyridoxine (vitamin B6) 100 mg tablet 100 mg PO DAILY atorvastatin 20 mg tablet See Rx Instructions .ROUTE .COMPLEX Qty: 90 2RF Dose Instruction: TAKE 1 TABLET DAILY Rx Instructions: TAKE 1 TABLET DAILY Follow-up/Referrals: Shilo Soares MD [Primary Care Provider, Internal Medicine] - 1 Week Clinical Impression: Sinusitis Stand Alone Forms: Work/School Release IP Time of Disposition: 08:38
--- OUTSIDE RECORDS SUMMARY | 2025-07-13 08:07 | XMS_ITS ---
Author Organization [facility] Address [address] [place] [address] [place] [address] Care Team Providers Care Maintenance Mechanic Elevators Name Role Phone Shilo Soares MD Primary Care Provider [phone] Active Problems Problem Noted Date Diagnosed Date [...] Automatic Entry Manual Entr y Effective Dose 288.61 mSv 288.61 mSv 0 mSv Total DLP 10,250.17 DLP 10,250.17 DLP 0 DLP CTDIvol Max 137.21 mGy 137.21 mGy 0 mGy CTDIvol Min 20.1 mGy 20.1 mGy 0 mGy
--- OUTSIDE RECORDS SUMMARY | 2025-07-13 08:07 | XMS_ITS | Encounter Summary ---
Author Organization [facility] Address [address] [place] [address] Care Team Providers Care Injection Molder Name Role Phone Shilo Soares MD Primary Care Provider [phone] Encounter Details Date Type Department Care Team ([facility] Contact Info) Description 07/05/2025 Results Follow-Up [facility] [address] [facility] [address] [place] [address] Edilia Pettit, CHELY [address] [facility] [address] [place] [address] CANCER ANTIGEN 125 Social History Tobacco Use Types Packs/Day Years Used Date Smoking Tobacco: Every Day Cigarettes 0.5 35 Smokeless Tobacco: Never Alcohol Use Standard Drinks/Week Comments Not Currently 0 (1 standard drink = 0.6 oz pur e alcohol) 2-3 drinks per year Feeling Safe Answer Date Recorded Are you in a relationship wi th someone who hurts you emotionally and/or physically? No 07/04/2025 Food Insecurity Answer Date Recorded Patient needs [...] Upcoming Encounters Date Type Department Care Team ([facility] Contact Info) Description 09/04/2025 1:30 PM RISK ANALYST Office Visit [facility] [address] [place] [address] Aviva Humphries MD [address] [place] [address] documented as of this encounter Visit Diagnoses Not on filedocumented in this encounter Care Teams Injection Molder Relationship Specialty Start Date End Date Shilo Soares MD [address] [place] [id number] PCP - General Internal Medicine 04/24/23 documented as of this encounter
--- OUTSIDE RECORDS SUMMARY | 2025-07-13 08:07 | XMS_ITS | Encounter Summary ---
Author Organization [facility] Address [address] [place] [address] Care Team Providers Care Wire Mesh Filter Fabricator Name Role Phone Shilo Soares MD Primary Care Provider [phone] Encounter Details Date Type Department Care Team (Latest Contact Info) Description 06/13/2025 Results Follow-Up [facility] [address] [facility] [address] [place] [address] Edilia Pettit, CHELY [address] [facility] [address] [place] [address] CBC WITH DIFFERENTIAL Social History [...] Care Team (Late st Contact Info) Description 09/04/2025 1:30 PM PASTE UP WORKER Office Visit [facility] [address] [place] [address] Aviva Humphries MD [address] [place] [address] documented as of this encounter Visit Diagnoses Not on filedocumented in this encounter Care Teams Wire Mesh Filter Fabricator Relationship Specialty Start Date End Date Shilo Soares MD [address] [facility] [address] [place] [id number] PCP - General Internal Medicine 04/24/23 documented as of this encounter
--- OUTSIDE RECORDS SUMMARY | 2025-07-13 08:07 | XMS_ITS | Clinical Summary ---
Author Organization [facility] (Formerly [facility]) Marlon monson Formerly [facility] Address [address] [address] Care Team Providers Care Rn Otolaryngology Name Role Phone Shilo Soares MD Primary Care Provider [phone] Allergies Active Allergy Reactions Criticality Noted Date Comments Baclofen Confusion Low 07/04/2025 Ciprofloxacin Rash Low 04/24/2023 Penicillins Rash Medium [...] EACH NOSTRILEVERY 12 HOURS 01/30/20 25 Active Active Problems Problem Noted Date Diagnosed Date Asthma 09/12/2024 COPD (chronic obstructive pulmonary disease) 10/2024 Postprocedural pneumothorax 09/12/2024 HTN (hypertension), benign 09/12/2024 HLD (hyperlipidemia) 09/12/2024 Status post surgery 08/12/2023 Bladder injury 08/08/2023 Drug-induced androgenic alopecia 08/08/2023 Protein-calorie malnutrition, severe 08/07/2023 Ovarian cancer 05/13/2023 Cancer Staging:Clinical stage from 05/13/2023:FIGO Stage IVB- Signed by Aviva Hupmhries MD on 05/13/2023 Encounters Date Type Department Care Team Description 07/10/2025 10:16 AM PROCUREMENT COST COORDINATOR - 07/10/2025 11:59 PM [facility] Hospital Encounter [facility] CT Scan [address] [place] [address] Aviva Humphries MD Arrived Discharge Disposition: Home or Self Care 07/10/2025 Results Follow-Up [facility] Gynecologic Oncology [facility] [address] [place] [address] Aviva Humphries MD CTA CHEST + ABD/PEL W CONTRAST 07/05/2025 Results Follow-Up [facility] ([facility] Gynecologic Oncology [place] [address] [place] [address] Edilia Pettit NP CANCER ANTIGEN 125 07/04/2025 1:00 PM PROCUREMENT COST COORDINATOR Office Visit [facility] ([facility] Gynecologic Oncology [place] [address] [place] [address] Edilia Pettit NP Maintenance antineoplastic chemotherapy (Primary Dx); Malignant neoplasm of ovary, unspecified laterality (CMS/HCC); Shortness of breath 07/04/2025 10:45 AM PROCUREMENT COST COORDINATOR - 07/04/2025 11:59 PM PROCUREMENT COST COORDINATOR Hospital Encounter [facility] [address] [place] [address] Aviva Humphries MD Discharge Disposition: Home or Self Care 07/04/2025 Orders Only [facility] Gynecologic Oncology [place] [address] [place] [address] Edilia Pettit NP Malignant neoplasm of ovary, unspecified laterality (CMS/HCC) (Primary Dx) 07/03/2025 Orders Only [facility] Gynecologic Oncology [place] [address] [place] [address] Aviva Humphries MD Maintenance antineoplastic chemotherapy 06/13/2025 External Device Data STL ABSTRACTION Provider, Abstract 06/13/2025 Results Follow-Up [facility] Gynecologic Oncology [place] [address] [place] [address] Edilia Pettit NP CBC WITH DIFFERENTIAL 05/23/2025 External Device Data STL ABSTRACTION Provider, Abstract 05/10/2025 1:30 PM CDT Office Visit [facility] Gynecologic Oncology [place] [address] [place] [address] Aviva Humphries MD Maintenance antineoplastic chemotherapy (Primary Dx); Malignant neoplasm of ovary, unspecified laterality (CMS/HCC) 05/10/2025 8:45 AM CDT - 05/10/2025 11:59 PM CDT Hospital Encounter [facility] [address] [place] [address] Aviva Humphries MD Discharge Disposition: Home or Self Care 05/08/2025 Orders Only [facility] Gynecologic Oncology [facility] [address] [place] [address] Aviva Humphries MD Maintenance antineoplastic chemotherapy 04/19/2025 [...] STL ABSTRACTION Provider, Abstract 04/13/2025 Orders Only [facility] Gynecologic Oncology [place] [address] [place] [address] Edilia Pettit NP 04/13/2025 External Device Data [...] Sign Reading Time Taken Comments Blood Pressure 122/78 07/04/2025 12:52 PM PROCUREMENT COST COORDINATOR Pulse 73 07/04/2025 12:52 PM PROCUREMENT COST COORDINATOR Temperature 36.6 C (97.9 F) 07/04/2025 12:52 PM PROCUREMENT COST COORDINATOR Respiratory Rate 18 02/22/2025 12:50 PM CDT Oxygen Saturation 95% 07/04/2025 12:52 PM PROCUREMENT COST COORDINATOR Inhaled Oxygen Concentration - - Weight 50.8 kg (112 lb) 07/04/2025 12:52 PM PROCUREMENT COST COORDINATOR Height 167.6 cm (5' 6) 07/04/2025 12:52 PM PROCUREMENT COST COORDINATOR Body Mass Index 18.08 07/04/2025 12:52 PM PROCUREMENT COST COORDINATOR Plan of Treatment Upcoming Encounters Date Type Department Care Team (Late st Contact Info) Description 09/04/2025 1:30 PM PROCUREMENT COST COORDINATOR Office Visit [facility] Gynecologic Oncology Hall [address] [place] [address] Aviva Humphries MD [address] [place] [address] Health Maintenance Due Date Last [...] (#1) 2025 Medical Devices Implanted Type Area Business Job Titles Device Identifier Shelf Expiration Date Model / Serial / Lot Hemostat Lanette Ah Powder 3gm [id number] - [id number] Implanted:Qt y: 1 on 08/06/2023 by Aviva Humphries MD at [facility] Hemostatic N/A: Abdomen BARD DAVOL [id number] 12/06/2027 [id number] / / [id number] Hemostat Lanette Ah Powder 3gm [id number] - [id number] Implanted:Qt y: 1 on 08/06/2023 by Aviva Humphries MD at [facility] Hemostatic N/A: Abdomen BARD DAVOL [id number] 12/06/2027 [id number] / / [id number] Port- 023 Implanted:Qt y: 1 on 05/25/2023 by Casie Rajput MD Right: Chest Wall 01/07/2025 [id number] / / [id number] Description:BARD 8FR SLIM PO [place] IMPLANTED INTO RIGHT CHEST WALL ON 05/25/[address] RAJPUT Procedures Procedure Name Priority Date/Time Associated Diagnosis Comments CTA CHEST + ABD/PEL W CONTRAST Routine 07/10/2025 11:00 AM PROCUREMENT COST COORDINATOR Malignant neoplasm of ovary, unspecified laterality (CMS/HCC) CBC WITH DIFFERENTIAL Routine 07/04/2025 11:54 AM PROCUREMENT COST COORDINATOR Maintenance antineoplastic chemotherapy COMPREHENSIVE METABOLIC PANEL Routine 07/04/2025 11:54 AM PROCUREMENT COST COORDINATOR Malignant neoplasm of ovary, unspecified laterality (CMS/HCC) CANCER ANTIGEN 125 Stat 07/04/2025 11 :54 AM PROCUREMENT COST COORDINATOR Malignant neoplasm of ovary, unspecified laterality (CMS/HCC) CANCER ANTIGEN 125 Routine 06/08/2025 3: 36 PM CDT Maintenance antineoplastic chemotherapy CBC WITH DIFFERENTIAL Routine 06/08/2025 3:36 PM CDT Maintenance antineoplastic chemotherapy DIFFERENTIAL, MANUAL Routine 05/10/2025 9:07 AM CDT Maintenance antineoplastic chemotherapy CBC WITH DIFFERENTIAL Routine 05/10/2025 9:07 AM CDT Maintenance antineoplastic chemotherapy CANCER ANTIGEN 125 Routine 05/10/2025 9: 07 AM CDT Maintenance antineoplastic chemotherapy from Last 3 Months Results * CTA CHEST + ABD/PEL W CONTRAST (07/10/2025 11:00 AM PROCUREMENT COST COORDINATOR) Anatomical Region Laterality Modality Chest, Abdomen, Pelvis Computed Tomography 07/10/2025 12:1 3 PM PROCUREMENT COST COORDINATOR Impressions 07/10/2025 12:56 PM PROCUREMENT COST COORDINATOR IMPRESSION: 1. No evidence of pulmonary embolism. 2. Enlarging left upper lobe and new right upper lobe nodular densities. Differential diagnosis includes metastatic disease. Short-term three month follow-up chest CT is recommended. Other pulmonary nodules unchanged. 3. Chronic emphysema. Abdomen and pelvis findings: The liver, gallbladder, spleen, pancreas, adrenal glands, and kidneys are normal aside from a couple of bilateral renal cystlike lesions that are too small to characterize. The stomach and bowel loops are normal in caliber with no obstruction or other acute process. The bladder is normal. The uterus is absent. The abdominal aorta is normal in caliber. No free air, free fluid, organized collection, lymphadenopathy, or acute inflammatory fat stranding is seen. The osseous structures are intact with no acute process. There is degenerative disease throughout the lumbar spine. Abdomen and pelvis impression: 1. No evidence of metastatic disease. DICTATION LOCATION: Location [address] [place] [address] 07/10/2025 12:56 PM PROCUREMENT COST COORDINATOR CTA CHEST + ABD/PEL W CONTRAST DATE: 07/10/2025 11:00 AM HISTORY: Metastatic disease evaluation. Malignant neoplasm of ovary, unspecified laterality (CMS/HCC) TECHNIQUE: Multislice helical axial with and without intravenous contrast with MIP maximum intensity projection reconstruction. The examination was performed with the adjustment of mA according to the patient size and/or the use of Iterative Reconstruction Technique. CONTRAST: IOPAMIDOL 61 % INTRAVENOUS SOLUTION (MULTI-DOSE BULK PACK) Given:90 mL COMPARISON: CT from 03/24/2025 Chest findings: Normal opacification of the pulmonary arteries is present with no evidence of embolism. The thoracic aorta is normal in caliber. The heart size is normal. Coronary artery calcification is seen. A right chest wall port ends in the SVC. No lymphadenopathy is seen within the chest. There is no osseous lesion or acute osseous abnormality. Multilevel degenerative disease is noted throughout the thoracic spine. Chronic emphysema is present. Right upper lobe 9 mm nodule on image 172 of series 4 is unchanged. Left lower lobe 4 mm nodule on image 163 is unchanged. Right apical 3 mm nodule on image 219 is unchanged. A 4 mm anterolateral right upper lobe nodule on image 136 is new. Irregular nodular opacity at the posterior medial left upper lobe measuring 9 mm on image 198 has increased from 5 mm. Procedure Note Trever Moser MD - 07/10/2025 CTA CHEST + ABD/PEL W CONTRAST DATE: 07/10/2025 11:00 AM HISTORY: Metastatic disease evaluation. Malignant neoplasm of ovary, unspecified laterality (CMS/HCC) TECHNIQUE: Multislice helical axial with and without intravenous contrast with MIP maximum intensity projection reconstruction. The examination was performed with the adjustment of mA according to the patient size and/or the use of Iterative Reconstruction Technique. CONTRAST: IOPAMIDOL 61 % INTRAVENOUS SOLUTION (MULTI-DOSE BULK PACK) Given:90 mL COMPARISON: CT from 03/24/2025 Chest findings: Normal opacification of the pulmonary arteries is present with no evidence of embolism. The thoracic aorta is normal in caliber. The heart size is normal. Coronary artery calcification is seen. A right chest wall port ends in the SVC. No lymphadenopathy is seen within the chest. There is no osseous lesion or acute osseous abnormality. Multilevel degenerative disease is noted throughout the thoracic spine. Chronic emphysema is present. Right upper lobe 9 mm nodule on image 172 of series 4 is unchanged. Left lower lobe 4 mm nodule on image 163 is unchanged. Right apical 3 mm nodule on image 219 is unchanged. A 4 mm anterolateral right upper lobe nodule on image 136 is new. Irregular nodular opacity at the posterior medial left upper lobe measuring 9 mm on image 198 has increased from 5 mm. IMPRESSION: 1. No evidence of pulmonary embolism. 2. Enlarging left upper lobe and new right upper lobe nodular densities. Differential diagnosis includes metastatic disease. Short-term three month follow-up chest CT is recommended. Other pulmonary nodules unchanged. 3. Chronic emphysema. Abdomen and pelvis findings: The liver, gallbladder, spleen, pancreas, adrenal glands, and kidneys are normal aside from a couple of bilateral renal cystlike lesions that are too small to characterize. The stomach and bowel loops are normal in caliber with no obstruction or other acute process. The bladder is normal. The uterus is absent. The abdominal aorta is normal in caliber. No free air, free fluid, organized collection, lymphadenopathy, or acute inflammatory fat stranding is seen. The osseous structures are intact with no acute process. There is degenerative disease throughout the lumbar spine. Abdomen and pelvis impression: 1. No evidence of metastatic disease. DICTATION LOCATION: [address] Aviva Humphries MD CT ORDERABLES Final Result * (ABNORMAL) CBC WITH DIFFERENTIAL (07/04/2025 11:54 AM PROCUREMENT COST COORDINATOR) Only the most recent of3 resultswithin the time period is included. WBC 7.5 3.8 - 10.8 Thousand/ uL [facility] RBC 2.93(L) 3.80 - 5.10 Million/u L [facility] HEMOGLOBIN 11.5(L) 11.7 - 15.5 g/dL [facility] HEMATOCRIT 33.8(L) 35.9 - 46.0 % [facility] MCV 115.4(H) 81.4 - 101.7 fL [facility] MCH 39.2(H) 27.0 - 33.0 pg [facility] MCHC 34.0 31.6 - 35.4 g/dL [facility] Comment: For adults, a slight decrease in the calculated MCHC value (in the range of 30 to 32 g/dL) is most likely not clinically significant; however, it should be interpreted with caution in correlation with other red cell parameters and the patient's clinical condition. RDW 17.1(H) 11.0 - 15.0 % [facility] PLATELETS 181 140 - 400 Thousand/ uL [facility] MPV 10.6 7.5 - 12.5 fL [facility] NEUTROPHIL ABSOLUTE 4,725 1,500 - 7,800 cells/uL [facility] LYMPHOCYTE ABSOLUTE 2,400 850 - 3,900 cells/uL [facility] MONOCYTE ABSOLUTE 375 200 - 950 cells/uL [facility] EOSINOPHIL ABSOLUTE 0(L) 15 - 500 cells/uL [facility] BASOPHILS ABSOLUTE 0 0 - 200 cells/uL [facility] NEUTROPHIL 63 % [facility] LYMPHOCYTES 32 % [facility] MONOCYTE 5 % [facility] EOSINOPHILS 0 % [facility] BASOPHILS 0 % [facility] COMMENT HEMATOLOGY [facility] Comment: The smear has been manually reviewed and the manual differential has been reported. Schistocytes 1 + Review of the peripheral smear reveals adequate numbers of platelets. Test Performed at: [facility] [address] [address] [address] Radha Thi Vo Blood 07/04/2025 11:5 4 AM PROCUREMENT COST COORDINATOR 07/04/2025 12:41 PM PROCUREMENT COST COORDINATOR us Edilia Pettit NP HEMATOLOGY ORDERABLES Final Resu lt [facility] [phone] [facility] [address] [address] [place] [address] * CANCER ANTIGEN 125 (07/04/2025 11:54 AM PROCUREMENT COST COORDINATOR) Only the most recent of3 resultswithin the time period is included. Pathologist [facility] [place] 125 6 <35 U/mL [facility] Comment: This test was performed using the Siemens Chemiluminescent method. Values obtained from different assay methods cannot be used interchangeably. [place] 125 levels, regardless of value, should not be interpreted as absolute evidence of the presence or absence of disease. Test Performed at: [facility] [address] [place] [address] [place] [address] Radha Perez MD Blood 07/04/2025 11:5 4 AM PROCUREMENT COST COORDINATOR 07/04/2025 12:38 PM PROCUREMENT COST COORDINATOR Edilia Pettit NP CHEMISTRY ORDERABLES Final Resul t [facility] [phone] [address] * (ABNORMAL) COMPREHENSIVE METABOLIC PANEL (07/04/2025 11:54 AM PROCUREMENT COST COORDINATOR) [facility] GLUCOSE 117(H) 65 - 99 mg/dL [facility] Comment: Fasting reference interval For someone without known diabetes, a glucose value between 100 and 125 mg/dL is consistent with prediabetes and should be confirmed with a follow-up test. BUN 11 7 - 25 mg/dL [facility] CREATININE 0.92 0.50 - 1.05 mg/dL [facility] GFR 69 > OR = 60 mL/min/1. 73m2 [facility] BUN/CREAT RATIO SEE NOTE: 6 - 22 (calc) [facility] Comment: Not Reported: BUN and Creatinine are within reference range. SODIUM 139 135 - 146 mmol/L [facility] POTASSIUM 3.6 3.5 - 5.3 mmol/L [facility] CHLORIDE 100 98 - 110 mmol/L [facility] CO2 23 20 - 32 mmol/L [facility] CALCIUM 8.8 8.6 - 10.4 mg/dL [facility] TOTAL PROTEIN 6.8 6.1 - 8.1 g/dL [facility] ALBUMIN 4.4 3.6 - 5.1 g/dL [facility] GLOBULIN 2.4 1.9 - 3.7 g/dL (calc) [facility] ALBUMIN/GLOBULIN RATIO 1.8 1.0 - 2.5 (calc) [facility] BILIRUBIN TOTAL 0.7 0.2 - 1.2 mg/dL [facility] ALKALINE PHOSPHATASE 76 37 - 153 U/L [facility] AST 17 10 - 35 U/L [facility] ALT 21 6 - 29 U/L [facility] Comment: Test Performed at: [facility] [address] [place] [address] [facility] N[facility] Chris Blood 07/04/2025 11:5 4 AM PROCUREMENT COST COORDINATOR 07/04/2025 12:41 PM PROCUREMENT COST COORDINATOR Edilia Pettit NP CHEMISTRY ORDERABLES Final Resul t Performing Organization Address City/State/ZIP [facility] Phone Number [facility] [phone] [facility] [place] [address] [place] [address] * MANUAL DIFFERENTIAL (05/10/2025 9:07 AM CDT) PLATELET EST. Consistent w Count 05/10/2025 9:45 AM CDT [facility] ANISOCYTOSIS 1+ /hpf 05/10/2025 9:45 AM CDT [facility] POIKILOCYTES 1+ /hpf 05/10/2025 9:45 AM CDT [facility]. [facility] MACROCYTES 2+ /hpf 05/10/2025 9:45 AM CDT [facility] Blood Collection / Unknown 05/10/2025 9:07 AM CDT 05/10/2025 9:15 AM CDT Edilia Pettit NP HEMATOLOGY ORDERABLES COM Final Result Performing Organization Address City/State/ZIP Co me Phone Number [facility] [employer] [facility] CLIA# [id number] [place] [place] [address] from Last 3 Months Insurance AETNA CHOICE POS II AETNA CHOICE POS II RX [employer] (INTERNAL) [facility] RX [facility] [employer] Advance Directives For more information, please contact: [phone] * Full Code (Latest Code Status on File) Date Activated Date Inactivated Comments 09/12/2024 5:54 PM 09/13/2024 8:26 PM * Full Code Date Activated Date Inactivated Comments 08/07/2023 12:31 AM 08/12/2023 6:27 PM * Full Code Date Activated Date Inactivated Comments 08/06/2023 12:44 PM 08/07/2023 12:31 AM Care Teams Rn Otolaryngology Relationship Specialty Start Date End Date Shilo Soares MD [address] [place] [phone] PCP - General Internal Medicine 04/24/23
--- OUTSIDE RECORDS SUMMARY | 2025-07-13 08:07 | XMS_ITS | Clinical Summary ---
Author Organization [facility] Address [address] [place] [address] Care Team Providers Care Nutrition Internship Name Role Phone Unavailable Primary Care Provider [...] Scan (General) 11/26/2024 COVID-19 Vaccine ( - 2024-2 6 season) 2025 Influenza Adult (#1) 2025 RSV [...]
[2025-07-13 08:08] VITALS: BP 139/77; PULSE 98; RESP 16; TEMP 36.6; O2SAT 100
--- OUTSIDE RECORDS SUMMARY | 2025-07-13 08:10 | XMS_ITS | Clinical Summary ---
Author Organization [address] Address [address] [place] [address] Care Team Providers Care Sap Bobj Developer Name Role Phone Miscellaneous, Not In File Primary Care Provider Unavailable Allergies Active Allergy Reactions Criticality Noted Date Comments Ciprofloxacin Rash Medium 04/24/2023 Penicillins Rash Medium 04/19/2021 Medications atorvastatin (LIPITOR) 20 mg tablet 1 Active albuterol HFA (PROVENTIL HFA,VENTOLIN HFA,PROAIR HFA) 90 mcg/actuation inhaler 1 Active ondansetron (ZOFRAN) 8 mg tablet Take 1 tablet (8 mg total) by mouth every 8 (eight) hours as needed 3 Active olaparib (LYNPARZA) 100 mg tablet Take 2 tablets (200 mg) by mouth 2 (two) times a day. 4 Active losartan (COZAAR) 50 mg tablet Take 1 tablet (50 mg total) by mouth daily 4 Active loratadine (CLARITIN) 10 mg tablet Take 1 tablet (10 mg total) by mouth daily Active Wixela Inhub 250-50 mcg/dose diskus inhaler USE 1 INHALATION ORALLY TWICE DAILY Active pyridoxine (VITAMIN B6) 25 mg tablet Take 1 tablet (25 mg total) by mouth 2 (two) times a day Active magnesium gluconate 200 mg tabletIndicatio ns:hypomagnesem ia 1.25 tablets (250 mg total) Active lidocaine (LIDODERM) 5 % Place 1 patch on the skin daily for 12 hours for 10 days Remove & discard patch(es) within 12 hours or as directed by MD Briggs patch 5 Active Active Problems Problem Noted Date Diagnosed Date Acute left-sided low back pain without sciatica 05/30/2025 Encounters Date Type Department Care Team Description 05/30/2025 8:01 AM CDT - 05/31/2025 3:39 PM CDT Hospital Encounter [facility] [address] [place] [address] Joceline Gonzalez MD Sargsyan, Narine, MD Acute left-sided low back pain without sciatica (Primary Dx); Disorientation; Cystitis Discharge Disposition: Discharge to home or self care 05/30/2025 7:44 AM CDT - 05/30/2025 11:59 PM CDT Hospital Encounter [facility], Room R Discharge Disposition: Discharge to home or self care from Last 3 Months Surgical History Surgery Date Site/Laterality Comments SECTION FOOT SURGERY Medical History Medical History Date Comments Asthma Hyperlipidemia Family History Medical History Relation Name Comments Cancer Father Relation Name Status Comments Father Social History Tobacco Use Types Packs/Day Years Used Date Smoking Tobacco: Every Day Smokeless Tobacco: Never Social Connection and Isolation Panel Answer Date Recorded In a typical week, how many times do you talk on the phone with family, friends, or neighbors? More than three times a week 05/31/2025 How often do you get togethe r with friends or relatives? More than three times a week 05/31/2025 How often do you attend chur ch or yazidism services? Never 05/31/2025 Do you belong to any clubs o r organizations such as sikhism groups, unions, fraternal or athletic groups, or school groups? No 05/31/2025 How often do you attend meet ings of the clubs or organizations you belong to? Never 05/31/2025 Are you , , di vorced, , never , or living with a partner? Never 05/31/2025 Overall Financial Resource Strain (CARDIA) Answe r Date Recorded How hard is it for you to pa y for the very basics like food, housing, medical care, and heating? Not hard at all 05/31/2025 Hunger Vital Sign Answer Date Recorded Within the past 12 months, y ou worried that your food would run out before you got the money to buy more. Never true 05/31/20 25 Within the past 12 months, t he food you bought just didn't last and you didn't have money to get more. Never true 05/31/2025 PRAPARE - Transportation Answer Date Re corded In the past 12 months, has l ack of transportation kept you from medical appointments or from getting medications? No 05/11 In the past 12 months, has l ack of transportation kept you from meetings, work, or from getting things needed for daily living? No 05/31/2025 Housing Stability Vital Sign Answer Gurinder e Recorded In the last 12 months, was t here a time when you were not able to pay the mortgage or rent on time? No 05/31/2025 In the past 12 months, how m any times have you moved where you were living? 0 05/31/2025 At any time in the past 12 m [facility], were you homeless or living in a long-term (including now)? No 05/31/2025 [facility] Utilities Answer Date Recorded In the past 12 months has th e electric, gas, oil, or water company threatened to shut off services in your home? No 05/31/2025 Personal Safety Answer Date Recorded Have you ever been in or are you currently in a harmful physical or emotional relationship or is someone making you feel afraid or unsafe? Denies 05/30/2025 Comments Unknown Sex and Gender Information Value Date Recorded Sex Assigned at Not on file Legal Sex Female 8:24 AM CDT Gender Identity Not on file Sexual Orientation Not on file Last Filed Vital Signs Vital Sign Reading Time Taken Comments Blood Pressure 120/64 05/31/2025 10:29 AM CDT Pulse 82 05/31/2025 10:00 AM CDT Temperature 36.9 C (98.4 F) 05/31/2025 10:29 AM CDT Respiratory Rate 18 05/31/2025 10:29 AM CDT Oxygen Saturation 96% 05/31/2025 10:29 AM CDT Inhaled Oxygen Concentration - - Weight 52 kg (114 lb 10.2 oz) 05/30/2025 6:13 PM CDT Height 167.6 cm (5' 6) 05/30/2025 6:13 PM CDT Body Mass Index 18.5 05/30/2025 6:13 PM CDT Plan of Treatment Health Maintenance Due Date Last Done Comments Breast Cancer Screening-Mammogram 1959 Cervical Cancer Screening 1959 Colon Cancer Screening-Colonoscopy 1959 Depression Screening 1959 Hepatitis C Screening 1959 Osteoporosis Screening-Bone Density Scan 1959 Hepatitis B Screening 11/26/1977 Pneumococcal vaccine 65+ (1 of 2 - PCV) 11/26/1978 Zoster Vaccine (1 of 2) 11/26/1978 DTaP/Tdap/Td Vaccine (1 - Tdap) 05/10/1994 4 Covid-19 Vaccine (3 - Moderna risk series) 11/14/2020 10/17/2020, 09/22/2020 Well Visit 65+ 11/26/2024 Influenza Vaccine (#1) 2025 06/05/2022 Fall Risk Assessment 05/31/2026 05/31/2025 Procedures Procedure Name Priority Date/Time Associated Diagnosis Comments US VEIN DUPLEX LOWER EXTREMITY BILATERAL COMPLETE IP Routine 05/31/2025 1:46 PM CDT DIFFERENTIAL AUTO Routine 05/31/2025 10: 24 AM CDT CBC WITH AUTO DIFFERENTIAL Routine 05/31/2025 10:24 AM CDT TROPONIN T HIGH-SENSITIVITY 6-HOUR Timed 05/31/2025 5:45 AM CDT TROPONIN T HIGH-SENSITIVITY 2-HOUR Timed 05/31/2025 1:18 AM CDT DIFFERENTIAL AUTO Routine 05/30/2025 11: 25 PM CDT BLOOD GAS, VENOUS Routine 05/30/2025 11: 25 PM CDT D-DIMER, QUANTITATIVE Add-On 05/30/2025 11:25 PM CDT TROPONIN T HIGH-SENSITIVITY SERIES (BASELINE, 2HR, 4HR, 6HR) Routine 05/30/2025 11:25 PM CDT CBC WITH AUTO DIFFERENTIAL Routine 05/30/2025 11:25 PM CDT TSH STAT 05/30/2025 1:56 PM CDT ETHANOL STAT 05/30/2025 1:56 PM CDT BLOOD CULTURE STAT 05/30/2025 1:56 PM CDT BLOOD CULTURE STAT 05/30/2025 1:56 PM CDT US KIDNEY COMPLETE ED 05/30/2025 10 :55 AM CDT URINALYSIS, MICROSCOPIC ONLY STAT 05/30/2025 9:32 AM CDT DRUGS OF ABUSE SCREEN, URINE WITHOUT CONFIRMATION STAT 05/30/2025 9:32 AM CDT URINE CULTURE STAT 05/30/2025 9:32 AM CDT URINALYSIS AND REFLEX TO MICROSCOPIC AND CULTURE STAT 05/30/2025 9:[address] ABDOMEN PELVIS W CONTRAST ED 05/30/2025 9:[address] HEAD WO CONTRAST ED 05/30/2025 9 :19 AM CDT EGFR STAT 05/30/2025 8:28 AM CDT DIFFERENTIAL AUTO STAT 05/30/2025 8:2 8 AM CDT SEPSIS LACTATE WITH REFLEX STAT 05/30/2025 8:28 AM CDT COMPREHENSIVE METABOLIC PANEL STAT 05/30/2025 8:28 AM CDT CBC WITH AUTO DIFFERENTIAL STAT 05/30/2025 8:28 AM CDT from Last 3 Months Results * US Vein Duplex Lower Extremity Bilateral Complete (05/31/2025 1:46 PM CDT) Anatomical Region Laterality Modality Vascular Bilateral Ultrasound 05/31/2025 1:51 PM CDT Impressions 05/31/2025 1:51 PM CDT No evidence of bilateral large pulmonary venous thrombosis. Electronically signed by: Mayco Lemos M.D. Narrative 05/31/2025 1:51 PM CDT EXAM DESCRIPTION: Bilateral lower extremity duplex ultrasound REASON FOR STUDY: Elevated d-dimer. TECHNIQUE: Duplex scan using the B-mode, spectral Doppler, and color-flow Doppler of the deep venous system of the bilateral lower extremity was performed. Images stored on PACS. COMPARISON: None. FINDINGS: The common femoral, common femoral-saphenous vein confluence, visualized profunda femoral, superficial femoral, and popliteal veins are readily compressible with no intraluminal thrombus on cancino scale images. There is normal color and spectral Doppler signal, including augmentation. Greater saphenous vein appears patent. Visualized calf veins are patent. Procedure Note Mayco Lemos MD - 05/31/2025 EXAM DESCRIPTION: Bilateral lower extremity duplex ultrasound REASON FOR STUDY: Elevated d-dimer. TECHNIQUE: Duplex scan using the B-mode, spectral Doppler, and color-flow Doppler of the deep venous system of the bilateral lower extremity was performed. Images stored on PACS. COMPARISON: None. FINDINGS: The common femoral, common femoral-saphenous vein confluence, visualized profunda femoral, superficial femoral, and popliteal veins are readily compressible with no intraluminal thrombus on cancino scale images. There is normal color and spectral Doppler signal, including augmentation. Greater saphenous vein appears patent. Visualized calf veins are patent. IMPRESSION: No evidence of bilateral large pulmonary venous thrombosis. Electronically signed by: Mayco Lemos M.D. us Gregoria Hinton MD [facility] PROCEDURES Final Resul t * Differential, auto (05/31/2025 10:24 AM CDT) Neutrophil abs 3.22 1.50 - 6.50 K/cumm Imm gran abs 0.02 0.00 - 0.10 K/cumm [facility] ([facility]) Lymphocyte abs 1.57 0.80 - 3.30 K/cumm [facility] ([place]) Monocyte abs 0.41 0.20 - 0.80 K/cumm [facility] ([place]) Eosinophil abs 0.04 0.00 - 0.50 K/cumm [facility] ([place]) Basophil abs 0.01 0.00 - 0.10 K/cumm [facility] ([place]) Neutrophil pct 61.0 % [facility] ([place]) Comment: Interpretive Data Percent cell count reference ranges are not reported, since discordance with absolute values may lead to misinterpretation of CBC data. Current Interpretive Data was last revised on 2017. Imm gran pct 0.4 % [facility] ([place]) Comment: Interpretive Data Percent cell count reference ranges are not reported, since discordance with absolute values may lead to misinterpretation of CBC data. Current Interpretive Data was last revised on 2017. Lymphocyte pct 29.8 % [facility] ([facility]) Comment: Interpretive Data Percent cell count reference ranges are not reported, since discordance with absolute values may lead to misinterpretation of CBC data. Current Interpretive Data was last revised on 2017. Monocyte pct 7.8 % [facility] ([place]) Comment: Interpretive Data Percent cell count reference ranges are not reported, since discordance with absolute values may lead to misinterpretation of CBC data. Current Interpretive Data was last revised on 2017. Eosinophil pct 0.8 % [facility] ([place]) Comment: Interpretive Data Percent cell count reference ranges are not reported, since discordance with absolute values may lead to misinterpretation of CBC data. Current Interpretive Data was last revised on 2017. Basophil pct 0.2 % [facility] ([place]) Comment: Interpretive Data Percent cell count reference ranges are not reported, since discordance with absolute values may lead to misinterpretation of CBC data. Current Interpretive Data was last revised on 2017. Blood 05/31/2025 10:2 4 AM CDT 05/31/2025 11:15 AM CDT us Gregoria Hinton MD LAB BLOOD ORDERABLES Final Re sult [facility] ([facility]) 1 [facility] Department [place] [address] * (ABNORMAL) CBC with auto differential (05/31/2025 10:24 AM CDT) [facility] WBC 5.27 3.80 - 9.90 K/cumm Hgb 10.1(L) 11.9 - 15.5 g/dL [facility] ([place]) Hct 29.8(L) 35.6 - 45.5 % [facility] ([place]) Plt 136(L) 150 - 400 K/cumm [facility] ([place]) MPV 10.4 9.1 - 12.3 fL [facility] ([place]) RBC 2.63(L) 3.90 - 5.20 M/cumm [facility] ([place]) MCV 113.3(H) 81.3 - 96.4 fL [facility] ([place]) MCH 38.4(H) 27.1 - 33.3 pg [facility] ([place]) MCHC 33.9 32.3 - 35.7 g/dL [facility] ([place]) RDW CV 17.1(H) 11.1 - 14.9 % [facility] ([place]) RDW SD 70.4(H) 35.7 - 48.1 fL [facility] ([place]) NRBC abs 0.00 0.00 - 0.01 K/cumm [facility] ([place]) Blood 05/31/2025 10:2 4 AM CDT 05/31/2025 11:15 AM CDT us Gregoria Hinton MD LAB BLOOD ORDERABLES Final Re sult [facility] ([place]) [address] [facility] Department [place] [address] * (ABNORMAL) Troponin T high-sensitivity 6-hour (05/31/2025 5:45 AM CDT) [facility] Trop T hs 20(H) <=14 ng/L Comment: Interpretive Data For further hscTnT resources including the diagnostic algorithm and an aid in interpretation, copy and paste this link: https://nrl.testcatalog.org/show/hsTrop Current Interpretive Data last revised 2020. Trop T hs delta 0 ng/L [facility] ([facility]) Trop T hs interp Insignificant [facility] ([place]) Blood 05/31/2025 5:45 AM CDT 05/31/2025 5:55 AM CDT Josedidier Aria Pelaez VALVE ASSEMBLER LAB BLOOD ORDERABLES Final Result Performing Organization Address [facility] de Phone Number [facility] ([place]) 1 [facility] [place] [address] * (ABNORMAL) Troponin T high-sensitivity 2-hour (05/31/2025 1:18 AM CDT) Trop T hs 18(H) <=14 ng/L Comment: Interpretive Data For further hscTnT resources including the diagnostic algorithm and an aid in interpretation, copy and paste this link: https://nrl.bizsol.org/show/hsTrop Current Interpretive Data last revised 2020. Trop T hs delta -2 ng/L [facility] ([facility]) Trop T hs interp Insignificant [facility] ([place]) Blood 05/31/2025 1:18 AM CDT 05/31/2025 1:24 AM CDT Letha Pelaez NP LAB BLOOD ORDERABLES Final Result Performing Organization Address [facility] Co de Phone Number [facility] ([place]) [address] [facility] [place] [address] * (ABNORMAL) Troponin T high-sensitivity series (baseline, 2hr, 4hr, 6hr) (05/30/2025 11:25 PM CDT) Trop T hs 20(H) <=14 ng/L Comment: Interpretive Data For further hscTnT resources including the diagnostic algorithm and an aid in interpretation, copy and paste this link: https://nrl.bizsol.org/show/hsTrop Current Interpretive Data last revised 2020. Blood 05/30/2025 11:2 5 PM CDT 05/30/2025 11:31 PM CDT us Joseasimmaria Pelaez NP LAB BLOOD ORDERABLES Final Result [facility] ([facility]) 1 [facility] Department [place] [address] * Differential, auto (05/30/2025 11:25 PM CDT) Neutrophil abs 3.24 1.50 - 6.50 K/cumm Imm gran abs 0.02 0.00 - 0.10 K/cumm [facility] ([facility]) Lymphocyte abs 2.11 0.80 - 3.30 K/cumm [facility] ([facility]) Monocyte abs 0.54 0.20 - 0.80 K/cumm [facility] ([facility]) Eosinophil abs 0.03 0.00 - 0.50 K/cumm [facility] ([place]) Basophil abs 0.02 0.00 - 0.10 K/cumm [facility] ([place]) Neutrophil pct 54.4 % [facility] ([facility]) Comment: Interpretive Data Percent cell count reference ranges are not reported, since discordance with absolute values may lead to misinterpretation of CBC data. Current Interpretive Data was last revised on 2017. Imm gran pct 0.3 % [facility] ([place]) Comment: Interpretive Data Percent cell count reference ranges are not reported, since discordance with absolute values may lead to misinterpretation of CBC data. Current Interpretive Data was last revised on 2017. Lymphocyte pct 35.4 % [facility] ([place]) Comment: Interpretive Data Percent cell count reference ranges are not reported, since discordance with absolute values may lead to misinterpretation of CBC data. Current Interpretive Data was last revised on 2017. Monocyte pct 9.1 % [facility] ([place]) Comment: Interpretive Data Percent cell count reference ranges are not reported, since discordance with absolute values may lead to misinterpretation of CBC data. Current Interpretive Data was last revised on 2017. Eosinophil pct 0.5 % [facility] ([place]) Comment: Interpretive Data Percent cell count reference ranges are not reported, since discordance with absolute values may lead to misinterpretation of CBC data. Current Interpretive Data was last revised on 2017. Basophil pct 0.3 % [facility] ([place]) Comment: Interpretive Data Percent cell count reference ranges are not reported, since discordance with absolute values may lead to misinterpretation of CBC data. Current Interpretive Data was last revised on 2017. Blood 05/30/2025 11:2 5 PM CDT 05/30/2025 11:30 PM CDT us Joceline Gonzalez MD LAB BLOOD ORDERABLES Neha huitron Result [facility] ([place]) 1 [facility] Department [place] [address] * (ABNORMAL) CBC with auto differential (05/30/2025 11:25 PM CDT) WBC 5.96 3.80 - 9.90 K/cumm Hgb 10.8(L) 11.9 - 15.5 g/dL [facility] ([place]) Hct 31.3(L) 35.6 - 45.5 % [facility] ([place]) Plt 140(L) 150 - 400 K/cumm [facility] ([place]) MPV 9.9 9.1 - 12.3 fL [facility] ([place]) RBC 2.78(L) 3.90 - 5.20 M/cumm [facility] ([place]) MCV 112.6(H) 81.3 - 96.4 fL [facility] ([place]) MCH 38.8(H) 27.1 - 33.3 pg [facility] ([place]) MCHC 34.5 32.3 - 35.7 g/dL [facility] ([place]) RDW CV 16.9(H) 11.1 - 14.9 % [facility] ([place]) RDW SD 71.0(H) 35.7 - 48.1 fL [facility] ([place]) NRBC abs 0.02(H) 0.00 - 0.01 K/cumm [facility] ([facility]) Blood 05/30/2025 11:2 5 PM CDT 05/30/2025 11:30 PM CDT Joceline Gonzalez MD LAB BLOOD ORDERABLES Neha l Result Performing Organization Address City/[facility]/ZIP Co de Phone Number [facility] [address] [place] [address] [place] [address] * (ABNORMAL) D-dimer, quantitative (05/30/2025 11:25 PM CDT) D-Dimer 1,169(H) <=499 ng/mL FEU [facility] ([facility]) Comment: Interpretive data FDA approved the D-dimer, in conjunction with a low or moderate pretest probability score, to exclude venous thromboembolic events (VTE) (PE and DVT) in outpatients when the D-dimer result is < 500 ng/ml FEU. Evidence supports using an age-adjusted D-dimer cut-off for outpatients older than 50 (age x 10) to improve specificity without sacrificing sensitivity. Example: age 68, VTE cut-off 680 ng/ml FEU. References; Schouten HT et al. Brit Med J. 2013;346:f2492. Josue et al. Annals Int Med. 2015;163:701-11. Current interpretive data was last revised on 2019. Blood 05/30/2025 11:2 5 PM CDT 05/30/2025 11:31 PM CDT us Alejo Eid MD LAB BLOOD ORDERABLES Fi nal Result Performing Organization Address City/[facility]/ZIP Co de Phone Number [facility] 1 [facility] [place] [address] * Blood gas, venous (05/30/2025 11:25 PM CDT) pH, Venous 7.37 7.32 - 7.43 PCO2, Venous 42 40 - 50 mmHg [facility] ([place]) PO2, Venous 164 mmHg [facility] ([place]) HCO3 Venous, Calculated 23 20 - 30 mmol/L [facility] ([place]) BE, venous -1 mmol/L [facility] ([place]) Comment: Interpretive Data No Reference Range Established Current Interpretive Data was last revised on 2017. Blood 05/30/2025 11:2 5 PM CDT 05/30/2025 11:30 PM CDT us Alejo Eid MD LAB BLOOD ORDERABLES Fi nal Result [facility] ([facility]) 1 [facility] Department [place] [address] * Blood culture Blood Blood (05/30/2025 1:56 PM CDT) Report Final Report: No growth Comment:Testing performed by : [facility], [address] [facility] [place]., [address] Blood (Blood) 05/30/2025 1:5 6 PM CDT 05/30/2025 4:12 PM CDT Narrative [facility] ([facility]) - 06/04/2025 7:00 AM CDT Collection->Peripheral Received only aerobic blood culture bottle. Anaerobic bottle received with contamination visible inside at the top. Anaerobic bottle was discarded. 1. Blood cultures are incubated for 4 days on a continuously monitored blood culture system. The first report of a negative culture is issued within 24 hours of receipt of the specimen in the laboratory. 2. Positive culture results are reported as soon as they are detected. 3. The most important factor for detection of microbes in the setting of bloodstream infection is the volume of blood submitted for culture. Failure to collect an optimal blood volume can result in false negative blood cultures. 4. For pediatric patients, the recommended blood volume to collect follows a weight based strategy. See the electronic test catalog for collection instructions. 5. For positive blood cultures, a rapid molecular test may be performed for organism identification using the dario ePlex blood culture identification panel for gram positive (BCID-GP) and gram negative (BCID-GN) organisms. This nucleic acid amplification test detects microbial DNA in positive blood culture broth. This assay has been cleared by the [place] Food and Drug Administration and its performance characteristics have been verified by the [facility]. For questions about this culture, contact the Microbiology Laboratory at [phone]. Interpretive data was last revised on 24. Joceline Gonzalez MD LAB MICROBIOLOGY - GENERA L ORDERABLES Final Result [facility] ([place]) 1 [facility] Department [place] [address] * Blood culture Blood Blood (05/30/2025 1:56 PM CDT) Report Final Report: No growth Comment:Testing performed by : [facility], [address] [facility] [place]., [address] Blood (Blood) 05/30/2025 1:5 6 PM CDT 05/30/2025 4:11 PM CDT Narrative [facility] ([place]) - 06/04/2025 7:00 AM CDT Collection->Peripheral 1. Blood cultures are incubated for 4 days on a continuously monitored blood culture system. The first report of a negative culture is issued within 24 hours of receipt of the specimen in the laboratory. 2. Positive culture results are reported as soon as they are detected. 3. The most important factor for detection of microbes in the setting of bloodstream infection is the volume of blood submitted for culture. Failure to collect an optimal blood volume can result in false negative blood cultures. 4. For pediatric patients, the recommended blood volume to collect follows a weight based strategy. See the electronic test catalog for collection instructions. 5. For positive blood cultures, a rapid molecular test may be performed for organism identification using the dario ePlex blood culture identification panel for gram positive (BCID-GP) and gram negative (BCID-GN) organisms. This nucleic acid amplification test detects microbial DNA in positive blood culture broth. This assay has been cleared by the [place] Food and Drug Administration and its performance characteristics have been verified by the [facility]. For questions about this culture, contact the Microbiology Laboratory at [phone]. Interpretive data was last revised on 24. us Joceline Gonzalez MD LAB MICROBIOLOGY - GENERA L ORDERABLES Final Result [facility] ([place]) 1 [facility] [place] [address] * TSH (05/30/2025 1:56 PM CDT) Thyroid Stimulating Hormone 1.65 0.30 - 4.20 mcIUnit/mL Blood 05/30/2025 1:56 PM CDT 05/30/2025 2:02 PM CDT us Joceline Gonzalez MD LAB BLOOD ORDERABLES Neha l Result Performing Organization Address [facility] Co de Phone Number [facility] ([facility]) 1 [facility] [place] [address] * Ethanol (05/30/2025 1:56 PM CDT) Ethanol <10 <=10 mg/dL Comment: Interpretive Data Legal limit of intoxication > or = 80 mg/dL Levels > or = 400 mg/dL are potentially TOXIC. Current interpretive data was last revised on 2018. Blood 05/30/2025 1:56 PM CDT 05/30/2025 2:02 PM CDT us Joceline Gonzalez MD LAB BLOOD ORDERABLES Neha l Result JOSE ENNIS ([facility] [place] [place]) 1 [facility] [place] [address] * US Kidney Complete (05/30/2025 10:55 AM CDT) Anatomical Region Laterality Modality Kidney N/A Ultrasound 05/30/2025 11:0 3 AM CDT Narrative 05/30/2025 11:15 AM CDT EXAM DESCRIPTION: US KIDNEY COMPLETE REASON FOR STUDY: Left back pain, poorly visualized kidney with hyperdense areas noted on contrast CT TECHNIQUE: Ultrasound of the kidneys and urinary bladder was performed with grayscale imaging. COMPARISON: CT abdomen and pelvis 05/30/2025 FINDINGS: RIGHT KIDNEY: The right kidney measures 8.6 cm in length. There is no hydronephrosis. There is normal cortical thickness and echogenicity. LEFT KIDNEY: The left kidney measures 9.2 cm in length. There is a 1.3 x 0.8 x 1.1 cm hypoechoic cyst in the medial left kidney in the 1.2 x 0.9 x 1.3 cm hypoechoic cyst in the lateral left kidney without definite sonographic features of simple cysts. URINARY BLADDER: The urinary bladder, as visualized, appears unremarkable. The bilateral ureteral jets are visualized. OTHER: No other additional findings. IMPRESSION: Hypoechoic cysts in the left kidney without definite sonographic features of simple cysts. Further evaluation with MRI abdomen renal protocol is recommended. No renal calculi THIS IS AN ELECTRONICALLY VERIFIED FINAL REPORT 05/30/2025 11:15 AM - Electronically signed by Sadie Hidalgo M.D. FT: FT Report ID: [id number] Reading Location: [id number] Procedure Note Sadie Bejarano MD - 05/30/2025 EXAM DESCRIPTION: US KIDNEY COMPLETE REASON FOR STUDY: Left back pain, poorly visualized kidney with hyperdense areas noted on contrast CT TECHNIQUE: Ultrasound of the kidneys and urinary bladder was performedwith grayscale imaging. COMPARISON: CT abdomen and pelvis 05/30/2025 FINDINGS: RIGHT KIDNEY: The right kidney measures 8.6 cm in length. There is no hydronephrosis. There is normal cortical thickness and echogenicity. LEFT KIDNEY: The left kidney measures 9.2 cm in length. There is a 1.3 x0.8 x 1.1 cm hypoechoic cyst in the medial left kidney in the 1.2 x 0.9 x 1.3cm hypoechoic cyst in the lateral left kidney without definite sonographic features of simple cysts. URINARY BLADDER: The urinary bladder, as visualized, appearsunremarkable. The bilateral ureteral jets are visualized. OTHER: No other additional findings. IMPRESSION: Hypoechoic cysts in the left kidney without definite sonographic featuresof simple cysts. Further evaluation with MRI abdomen renal protocol is recommended. No renal calculi THIS IS AN ELECTRONICALLY VERIFIED FINAL REPORT 05/30/2025 11:15 AM - Electronically signed by Sadie Hidalgo M.D. FT: FT Report ID: [id number] Reading Location: [id number] Joceline Gonzalez MD IMG US PROCEDURES Final R esult * (ABNORMAL) Urinalysis reflex to microscopic and culture Urine (05/30/2025 9:32 AM CDT) Color, ur Yellow Yellow Clarity, ur Clear Clear [facility] ([place]) Specific gravity, ur 1.017 1.003 - 1.030 [facility] ([place]) pH, urine 5.5 [facility] ([place]) Comment: Interpretive Data U rine pH is affected by diet, medications, systemic acid-base disturbances, and renal tubular function. pH may affect urinary stone formation. For example, urine pH below 6.0 may help reduce the tendency for calcium phosphate stones and pH greater than 6.0 may reduce the tendency for uric acid stone formation. Source: [employer] Current Interpretive Data was last revised on 2017 Protein, ur ql Negative Negative [facility] ([place]) Glucose, ur ql Negative Negative [facility] ([place]) Ketones, ur Negative Negative [facility] ([place]) Bilirubin, ur Negative Negative [facility] ([place]) Blood, ur Negative Negative [facility] ([place]) Urobilinogen, ur <2.0 <2.0 mg/dL [facility] ([place]) Nitrite, ur Negative Negative [facility] ([place]) Leukocyte esterase, ur 4+(A) Negative [facility] ([place]) UA reflex comment Reflex to microscopic UA will be performed. [facility] ([place]) Urine 05/30/2025 9:32 AM CDT 05/30/2025 9:34 AM CDT Joceline Gonzalez MD LAB MICROBIOLOGY - GENERA L ORDERABLES Final Result OJSE RAYMON ([place]) 1 [facility] [place] [address] * Drugs of Abuse Screen, Urine without Confirmation (05/30/2025 9:32 AM CDT) Amphetamine, ur Not Detected CutOff 500ng/mL Comment: Interpretive Data - Amphetamines: Samples containing greater than 500 ng/mL d-methamphetamine or other cross-reacting amphetamine compounds are reported as positive. Amphetamine immunoassays are subject to significant false positive rates due to cross-reactivity of non-amphetamine drugs. Confirmatory testing required for definitive results. Current Interpretive Data was last reviewed 2023. Barbiturates, ur Not Detected CutOff 200ng/mL JOSE ENNIS ([place]) Comment: Interpretive Data - Barbiturates: Samples containing greater than 200 ng/mL secobarbital or other cross-reacting barbiturate compounds are reported as positive. False positive and false negative results are possible. Confirmatory testing required for definitive results. Current Interpretive Data was last reviewed 2023. Benzodiazepines, ur Not Detected CutOff 100ng/mL [facility] ([place]) Comment: Interpretive Data - Benzodiazepines: Samples containing greater than 100 ng/mL nordiazepam or other cross-reacting compounds are reported as positive. False positive and false negative results are possible. Confirmatory testing required for definitive results. Current Interpretive Data was last reviewed 2023. Cannabinoids, ur Not Detected CutOff 50 ng/mL [facility] ([place]) Comment: Interpretive Data - Cannabinoids: Samples containing greater than 50 ng/mL delta-9 THC -COOH or other cross- reacting compounds are reported as positive. False positive and false negative results are possible. Confirmatory testing required for definitive results. Current Interpretive Data was last reviewed 2023. Cocaine, ur Not Detected CutOff 150ng/mL [facility] ([place]) Comment: Interpretive Data - Cocaine: Samples containing greater than 150 ng/mL benzoylecgonine or other cross- reacting compounds are reported as positive. False positive and false negative results are possible. Confirmatory testing required for definitive results. Current Interpretive Data was last reviewed 2023. Fentanyl, Ur Not Detected CutOff 5 ng/mL [facility] ([place]) Comment: Interpretive Data - Fentanyl: Samples containing greater than 5 ng/mL norfentanyl, fentanyl, or other cross-reacting fentanyl compounds are reported as positive. False positive and false negative results are possible. Confirmatory testing required for definitive results. Current Interpretive Data was last reviewed 2023. Methadone, ur Not Detected CutOff 300ng/mL [facility] ([place]) Comment: Interpretive Data - Methadone: Samples containing greater than 300 ng/mL d,l-methadone or other cross-reacting compounds are reported as positive. False positive and false negative results are possible. Confirmatory testing required for definitive results. Current Interpretive Data was last reviewed 2023. Opiates, ur Not Detected CutOff 300ng/mL [facility] ([place]) Comment: Interpretive Data - Opiates: Samples containing greater than 300 ng/mL morphine or other cross-reacting compounds are reported as positive. False positive and false negative results are possible. Confirmatory testing required for definitive results. Current Interpretive Data was last reviewed 2023. Oxycodone, ur NOT DETECTED CutOff 100ng/mL [facility] ([place]) Comment: Interpretive Data - Oxycodone: Samples containing greater than 100 ng/mL oxycodone or other cross-reacting compounds are reported as positive. False positive and false negative results are possible. Confirmatory testing required for definitive results. Current Interpretive Data was last reviewed 2023. Phencyclidine, ur Not Detected CutOff 25 ng/mL [facility] ([place]) Comment: Interpretive Data - Phencyclidine: Samples containing greater than 25 ng/mL phencyclidine or other cross-reacting compounds are reported as positive. False positive and false negative results are possible. Confirmatory testing required for definitive results. Current Interpretive Data was last reviewed 2023. Urine Creatinine 51 mg/dL [facility] ([place]) Comment: Interpretive Data Urine Creatinine: < 10 mg/dL is extremely dilute = or > 10 but < 20 mg/dL is dilute = or > 20 mg/dL is normal Current Interpretive Data was last revised on 2017. Urine 05/30/2025 9:32 AM CDT 05/30/2025 9:34 AM CDT N[place]ative [facility] [place] - 05/30/2025 10:02 AM CDT Drug of Abuse screening is performed by immunoassay for medical purposes only. This is not to be used for Pain Management purposes. Joceline Gonzalez MD LAB URINE ORDERABLES Neha l Result Performing Organization Address [facility] Co de Phone Number JOSE ENNIS ([place]) 1 [facility] [employer] [address] * (ABNORMAL) Urinalysis, microscopic only (05/30/2025 9:32 AM CDT) WBC, ur 11-20(A) 0 - 5 /HPF RBC, ur 0-2 0 - 2 /HPF [facility] ([place]) Epithelial cells, squamous, ur 1-5 0 - 5 /HPF [facility] ([place] Bacteria, ur Trace(A) [facility] ([place]) Mucous, ur Present(A) [facility] ([place]) Hyaline casts, ur 6-10 0 - 10 /LPF [facility] ([place]) Culture Reflex Comment Reflex to urine culture will be performed. [facility] [place] Urine 05/30/2025 9:32 AM CDT 05/30/2025 9:34 AM CDT Joceline Gonzalez MD LAB URINE ORDERABLES Neha l Result Performing Organization Address City/[facility]/ZIP Co de Phone Number JOSE ENNIS ([place]) 1 [facility] [place] [address] * Urine culture Urine (05/30/2025 9:32 AM CDT) Report Final Report: Less than 100,000 colonies/mL (clinically insignificant growth based on current clinical standards) Comment:Testing performed by : [facility], 1 [facility] [place] [address] Organism (CLINICALLY INSIGNIFICANT GROWTH JOSE ENNIS ([place]) Urine 05/30/2025 9:32 AM CDT 05/30/2025 12:15 PM CDT Narrative JOSE [facility]ASH[facility]) - 05/31/2025 1:03 PM CDT Urine culture reflexed based upon urinalysis results. Testing performed by [facility] ([phone]) Joceline Gonzalez MD LAB MICROBIOLOGY - GENERA L ORDERABLES Final Result JOSE [place]) 1 [facility] [place] [address] * CT Abdomen Pelvis W Contrast (05/30/2025 9:20 AM CDT) Anatomical Region Laterality Modality Body N/A Computed Tomogra phy 05/30/2025 9:30 AM CDT Narrative 05/30/2025 9:35 AM CDT EXAM DESCRIPTION: CT ABDOMEN PELVIS W CONTRAST REASON FOR STUDY: Abdominal pain, acute, nonlocalized Left sided back pain, nausea, and vomiting started on Thursday. Hx of ovarian cancer with hysterectomy. TECHNIQUE: CT scan of the abdomen and pelvis performed with intravenous and without oral contrast using helical scanning technique with dynamic intravenous contrast injection. Reconstructed coronal and sagittal MPR images reviewed. All images stored on PACS. Automated exposure control was used as a dose optimization technique for this examination. CONTRAST TYPE/DOSE: 75mL of IOVERSOL 350 MG IODINE/ML INTRAVENOUS SYRINGE injected via intravenous COMPARISON: None available FINDINGS: LOWER CHEST: No consolidation or effusion. Small to moderate-sized hiatal hernia. LIVER: Normal size. No identified cystic or solid masses. GALLBLADDER: Normally distended BILE DUCTS: No intrahepatic or extrahepatic ductal dilatation. SPLEEN: Normal size. No focal lesions. PANCREAS: No identified cystic or solid masses. No significant calcifications. No adjacent inflammation or peripancreatic fluid collections. Pancreatic duct not dilated. ADRENALS: Normal. KIDNEYS/URINARY TRACT: No stone or hydronephrosis. No perinephric stranding. Right kidney demonstrates a 1 cm cortical hypodensities suggesting cysts. Left kidney demonstrates motion artifact obscuring some detail. Somewhat hypodense foci in the upper and midpole regions measuring up to 1.1 cm. Exact nature and significance uncertain. Ultrasound could better characterize. Urinary bladder is unremarkable. GI: No dilated bowel loops. No obvious wall thickening. Normal appendix. No significant diverticular disease. PERITONEUM: No ascites or free air. RETROPERITONEUM: No mass or adenopathy. REPRODUCTIVE: No significant abnormality. VASCULATURE: No abdominal aortic aneurysm. MUSCULOSKELETAL: No significant abnormality. OTHER: No other abnormality. IMPRESSION: 1. No acute finding. 2. Small to moderate-sized hiatal hernia. 3. Right kidney demonstrates a 1 cm cortical hypodensity suggesting cyst. 4. Left kidney demonstrates motion artifact obscuring some detail. Somewhat hypodense foci in the upper and midpole regions measuring up to 1.1 cm. Exact nature and significance uncertain. Ultrasound could better characterize. THIS IS AN ELECTRONICALLY VERIFIED FINAL REPORT 05/30/2025 9:35 AM - Electronically signed by Anil Goddard M.D. RB: EMILIE Report ID: [id number] Reading Location: [id number] Procedure Note Anil Goddard MD - 05/30/2025 EXAM DESCRIPTION: CT ABDOMEN PELVIS W CONTRAST REASON FOR STUDY: Abdominal pain, acute, nonlocalized Left sided back pain, nausea, and vomiting started on Thursday. Hx ofovarian cancer with hysterectomy. TECHNIQUE: CT scan of the abdomen and pelvis performed with intravenousand without oral contrast using helical scanning technique with dynamic intravenous contrast injection. Reconstructed coronal and sagittal MPRimages reviewed. All images stored on PACS. Automated exposure control was usedas a dose optimization technique for this examination. CONTRAST TYPE/DOSE: 75mL of IOVERSOL 350 MG IODINE/ML INTRAVENOUSSYRINGE injected via intravenous COMPARISON: None available FINDINGS: LOWER CHEST: No consolidation or effusion. Small to moderate-sized hiatal hernia. LIVER: Normal size. No identified cystic or solid masses. GALLBLADDER: Normally distended BILE DUCTS: No intrahepatic or extrahepatic ductal dilatation. SPLEEN: Normal size. No focal lesions. PANCREAS: No identified cystic or solid masses. No significant calcifications. No adjacent inflammation or peripancreatic fluidcollections. Pancreatic duct not dilated. ADRENALS: Normal. KIDNEYS/URINARY TRACT: No stone or hydronephrosis. No perinephricstranding. Right kidney demonstrates a 1 cm cortical hypodensities suggestingcysts. Left kidney demonstrates motion artifact obscuring some detail. Somewhat hypodense foci in the upper and midpole regions measuring up to 1.1 cm.Exact nature and significance uncertain. Ultrasound could bettercharacterize. Urinary bladder is unremarkable. GI: No dilated bowel loops. No obvious wall thickening. Normalappendix. No significant diverticular disease. PERITONEUM: No ascites or free air. RETROPERITONEUM: No mass or adenopathy. REPRODUCTIVE: No significant abnormality. VASCULATURE: No abdominal aortic aneurysm. MUSCULOSKELETAL: No significant abnormality. OTHER: No other abnormality. IMPRESSION: 1. No acute finding. 2. Small to moderate-sized hiatal hernia. 3. Right kidney demonstrates a 1 cm cortical hypodensity suggestingcyst. 4. Left kidney demonstrates motion artifact obscuring some detail.Somewhat hypodense foci in the upper and midpole regions measuring up to 1.1 cm.Exact nature and significance uncertain. Ultrasound could better characterize. THIS IS AN ELECTRONICALLY VERIFIED FINAL REPORT 05/30/2025 9:35 AM - Electronically signed by Anil Goddard M.D. RB: EMILIE Report ID: [id number] Reading Location: [place] [id number] Joceline Gonzalez MD IMG CT PROCEDURES Final R esult * CT Head WO Contrast (05/30/2025 9:19 AM CDT) Anatomical Region Laterality Modality Head and Neck N/A Computed Tomogra phy 05/30/2025 9:51 AM CDT Narrative 05/30/2025 9:52 AM CDT EXAM DESCRIPTION: CT HEAD WO CONTRAST REASON FOR STUDY: ms changes Weakness and confusion since yesterday. TECHNIQUE: Axial images acquired through the brain without intravenous contrast. Images stored on PACS. Automated exposure control was used as a dose optimization technique for this examination. COMPARISON: None FINDINGS: The exam is suboptimal secondary to motion artifact. BRAIN: There is no definite evidence of acute intracranial hemorrhage. There is no definite evidence of an extra-axial fluid collection. There is no significant midline shift or focal mass effect. The ventricles are stable in size and position. There is mild cortical atrophy with periventricular white matter hypoattenuation, which is likely secondary to chronic microvascular ischemic disease. CALVARIUM: No fracture. SINUSES/MASTOIDS: There is minimal mucosal thickening of the bilateral ethmoid air cells. The remainder of the visualized paranasal sinuses and bilateral mastoid air cells are grossly clear. ORBITS: No significant abnormality. OTHER: No other significant abnormality. IMPRESSION: 1. Suboptimal exam secondary to motion artifact. 2. No definite evidence of acute intracranial hemorrhage. 3. Mild cortical atrophy with periventricular white matter hypoattenuation, which is likely secondary to chronic microvascular ischemic disease. THIS IS AN ELECTRONICALLY VERIFIED FINAL REPORT 05/30/2025 9:52 AM - Electronically signed by Davonte Flores D.O. PS: PS Report ID: [id number] Reading Location: [id number] Procedure Note Davonte Flores, DO - 05/30/2025 EXAM DESCRIPTION: CT HEAD WO CONTRAST REASON FOR STUDY: ms changes Weakness and confusion since yesterday. TECHNIQUE: Axial images acquired through the brain without intravenous contrast. Images stored on PACS. Automated exposure control was used asa dose optimization technique for this examination. COMPARISON: None FINDINGS: The exam is suboptimal secondary to motion artifact. BRAIN: There is no definite evidence of acute intracranial hemorrhage.There is no definite evidence of an extra-axial fluid collection. There is no significant midline shift or focal mass effect. The ventricles are stablein size and position. There is mild cortical atrophy with periventricularwhite matter hypoattenuation, which is likely secondary to chronic microvascular ischemic disease. CALVARIUM: No fracture. SINUSES/MASTOIDS: There is minimal mucosal thickening of the bilateral ethmoid air cells. The remainder of the visualized paranasal sinuses and bilateral mastoid air cells are grossly clear. ORBITS: No significant abnormality. OTHER: No other significant abnormality. IMPRESSION: 1. Suboptimal exam secondary to motion artifact. 2. No definite evidence of acute intracranial hemorrhage. 3. Mild cortical atrophy with periventricular white matterhypoattenuation, which is likely secondary to chronic microvascular ischemic disease. THIS IS AN ELECTRONICALLY VERIFIED FINAL REPORT 05/30/2025 9:52 AM - Electronically signed by Davonte Flores D.O. PS: PS Report ID: [id number] Reading Location: [id number] Joceline Gonzalez MD IMG CT PROCEDURES Final R esult * Sepsis Lactate w/ Reflex (05/30/2025 8:28 AM CDT) Sepsis Lactate 1.6 0.7 - 2.0 mmol/L Blood 05/30/2025 8:28 AM CDT 05/30/2025 8:37 AM CDT Joceline Gonzalez MD LAB BLOOD ORDERABLES Neha l Result Performing Organization Address City/State/[facility] Co de Phone Number [facility] [place] 1 [facility] Department of Laboratories [place], [place] [id number] * (ABNORMAL) eGFR (05/30/2025 8:28 AM CDT) eGFR 41(L) >=60 mL/min/1. 73 m2 Comment: Interpretive Data Reference Interval Normal >/= 90 mL/min/1.73m2 Mildly decreased* 60 - 89 mL/min/1.73m2 Mildly to moderately decreased 45 - 59 mL/min/1.73m2 Moderately to severely decreased 30 - 44 mL/min/1.73m2 Severely decreased 15 - 29 mL/min/1.73m2 Kidney Failure < 15 mL/min/1.73m2 *Relative to young adult level Estimated glomerular filtration rate is determined by the 2020 CKD-EPI equation recommended by the National Kidney Foundation (A Unifying Approach to GFR Estimation: Recommendations of the NKF-ASK Task Force on Reassessing the Inclusion of Race in Diagnosing Kidney Disease, JASN 202). The CKD-EPI equation should not be used for patients with unstable renal function and has not been validated in children and those over 70. Current interpretive data was last reviewed 2021. Blood 05/30/2025 8:28 AM CDT 05/30/2025 8:37 AM CDT Joceline Gonzalez MD LAB BLOOD ORDERABLES Neha elana Result [facility] ([place]) 1 [facility] Department [place] [address] * Differential, auto (05/30/2025 8:28 AM CDT) Neutrophil abs 4.85 1.50 - 6.50 K/cumm Imm gran abs 0.01 0.00 - 0.10 K/cumm [facility] ([place] [place] [place]) Lymphocyte abs 1.61 0.80 - 3.30 K/cumm [facility] ([place]) Monocyte abs 0.48 0.20 - 0.80 K/cumm [facility] ([place]) Eosinophil abs 0.00 0.00 - 0.50 K/cumm [facility] ([place]) Basophil abs 0.02 0.00 - 0.10 K/cumm [facility] ([place]) Neutrophil pct 69.6 % [facility] ([place]) Comment: Interpretive Data Percent cell count reference ranges are not reported, since discordance with absolute values may lead to misinterpretation of CBC data. Current Interpretive Data was last revised on 2017. Imm gran pct 0.1 % [facility] ([place]) Comment: Interpretive Data Percent cell count reference ranges are not reported, since discordance with absolute values may lead to misinterpretation of CBC data. Current Interpretive Data was last revised on 2017. Lymphocyte pct 23.1 % [facility] ([place] [place] [place]) Comment: Interpretive Data Percent cell count reference ranges are not reported, since discordance with absolute values may lead to misinterpretation of CBC data. Current Interpretive Data was last revised on 2017. Monocyte pct 6.9 % [facility] ([place]) Comment: Interpretive Data Percent cell count reference ranges are not reported, since discordance with absolute values may lead to misinterpretation of CBC data. Current Interpretive Data was last revised on 2017. Eosinophil pct 0.0 % [facility] ([place]) Comment: Interpretive Data Percent cell count reference ranges are not reported, since discordance with absolute values may lead to misinterpretation of CBC data. Current Interpretive Data was last revised on 2017. Basophil pct 0.3 % [facility] ([place]) Comment: Interpretive Data Percent cell count reference ranges are not reported, since discordance with absolute values may lead to misinterpretation of CBC data. Current Interpretive Data was last revised on 2017. Blood 05/30/2025 8:28 AM CDT 05/30/2025 8:37 AM CDT Joceline Gonzalez MD LAB BLOOD ORDERABLES Neha huitron Result [facility] ([place]) 1 [facility] Department [place] [address] * (ABNORMAL) CBC with auto differential (05/30/2025 8:28 AM CDT) WBC 6.97 3.80 - 9.90 K/cumm Hgb 12.7 11.9 - 15.5 g/dL [facility] ([place]) Hct 36.2 35.6 - 45.5 % [facility] ([place]) Plt 168 150 - 400 K/cumm [facility] ([place]) MPV 11.1 9.1 - 12.3 fL [facility] ([place]) RBC 3.27(L) 3.90 - 5.20 M/cumm [facility] ([place]) MCV 110.7(H) 81.3 - 96.4 fL [facility] ([place]) MCH 38.8(H) 27.1 - 33.3 pg [facility] ([place]) MCHC 35.1 32.3 - 35.7 g/dL [facility] ([place]) RDW CV 16.7(H) 11.1 - 14.9 % [facility] ([place]) RDW SD 69.4(H) 35.7 - 48.1 fL [facility] ([place]) NRBC abs 0.02(H) 0.00 - 0.01 K/cumm [facility] ([place]) Blood 05/30/2025 8:28 AM CDT 05/30/2025 8:37 AM CDT us Joceline Gonzalez MD LAB BLOOD ORDERABLES Neha l Result [facility] ([place]) 1 [facility] [place] [address] * (ABNORMAL) Comprehensive metabolic panel (05/30/2025 8:28 AM CDT) Sodium 135 135 - 145 mmol/L Potassium, pl 3.9 3.3 - 4.9 mmol/L [facility] ([place]) Chloride 97 97 - 110 mmol/L [facility] ([place]) CO2 26 22 - 32 mmol/L [facility] ([place]) Anion gap 12 2 - 15 mmol/L [facility] ([place]) BUN 17 6 - 25 mg/dL [facility] ([place]) Creatinine 1.42(H) 0.60 - 1.10 mg/dL [facility] ([place]) Glucose 123 70 - 199 mg/dL [facility] ([place]) Comment: Interpretive Data Fasting glucose >/= 126 mg/dl is diagnostic for diabetes. Fasting is defined as no caloric intake for at least 8 hours. Fasting glucose between 100 mg/dl to 125 mg/dl is diagnostic of prediabetes. In a patient with classic symptoms of hyperglycemia or hyperglycemic crisis, a random glucose >/= 200 mg/dl is diagnostic for diabetes. In the absence of unequivocal hyperglycemia, results should be confirmed by repeat testing. The classification and Diagnosis of Diabetes Diabetes Care 202; 46: S19-S40. Current interpretive data was last revised 2022. Calcium 9.8 8.5 - 10.3 mg/dL [facility] ([place]) Bilirubin, total 0.7 0.1 - 1.2 mg/dL [facility] ([place]) Protein, pl 7.1 6.5 - 8.5 g/dL [facility] ([place]) Albumin 4.5 3.5 - 5.0 g/dL [facility] ([place]) Alk phos 74 40 - 130 Units/L [facility] ([place]) ALT 27 7 - 45 Units/L [facility] ([place]) AST 35 10 - 45 Units/L [facility] ([place]) Blood 05/30/2025 8:28 AM CDT 05/30/2025 8:37 AM CDT Joceline Gonzalez MD LAB BLOOD ORDERABLES Neha l Result [facility] ([place]) 1 [facility] [place] [address] from Last 3 Months Insurance HEALTHCARE [facility] Advance Directives For more information, please contact: [phone] * Full Code (Latest Code Status on File) Date Activated Date Inactivated Comments 05/30/2025 6:33 PM 05/31/2025 7:44 PM Care Teams Sap Bobj Developer Relationship Specialty Start Date End Date Miscellaneous, Not In File PCP - General 04/19/21
== END 2025-07-13 08:40 | disposition home or self-care (01) ==
PROVIDERS: Emergency Provider Nurse Practitioner; PCP Emergency Medicine
DX: J01.40 Acute pansinusitis, unspecified (principal); J00 Acute nasopharyngitis [common cold]; F17.210 Nicotine dependence, cigarettes, uncomplicated; I10 Essential (primary) hypertension; E78.00 Pure hypercholesterolemia, unspecified; J45.909 Unspecified asthma, uncomplicated
CPT/HCPCS: 99213; G0463

== ENCOUNTER 2025-08-01 11:35 | Outpatient (CLI) | payer OTHER, SELFPAY ==
--- NOTE | ~2025-08-01 | XR_ITS ---
XR chest 2V 08/01/2025 11:46 Indication: Wheezing, cough and congestion Procedure: 2 view chest Comparison: No prior studies for comparison. Findings: Portacatheter tip in the SVC. Heart size normal. There is a small nodule in the right upper lobe. Correlation with CT recommended. The lungs are hyperinflated which is consistent with, but not diagnostic of chronic obstructive pulmonary disease. No focal pneumonia, significant effusion or pne umothorax. No acute osseous abnormality. Impression: 1: Nodular opacity right upper lobe. Correlation with CT chest recommended. Reviewed, dictated and finalized at location O. 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 Correlation with CT chest recommended.
--- OUTSIDE RECORDS SUMMARY | 2025-08-01 11:54 | XMS_ITS ---
Author Organization [facility] Address [address] [place] [address] [place] [address] Care Team Providers Care Supervisor Corduroy Cutting Name Role Phone Shilo Soares MD Primary Care Provider [phone] Active Problems Problem Noted Date Diagnosed Date [...]
--- OUTSIDE RECORDS SUMMARY | 2025-08-01 11:54 | XMS_ITS | Clinical Summary ---
Author Organization [facility] Address [address] [place] [address] Care Team Providers Care Key Filer Name Role Phone Unavailable Primary Care Provider [...]
--- OUTSIDE RECORDS SUMMARY | 2025-08-01 11:54 | XMS_ITS | Clinical Summary ---
Author Organization [address] Address [address] [place] [address] Care Team Providers Care Pipe Line Repairer Name Role Phone Miscellaneous, Not In File [...] - 05/31/2025 3:39 PM CDT Hospital Encounter [facility] [address] [place] [address] Joceline Gonzalez MD Sargsyan, Narine, MD Acute [...] often do you attend chur ch or bahai services? Never 05/31/2025 Do you belong to any clubs o r organizations such as latter-day groups, unions, fraternal or athletic groups, or [...] any time in the past 12 m [facility], were you homeless or living in a group home (including now)? No 05/31/2025 [facility] Utilities Answer Date Recorded In the [...] Mayco Lemos M.D. us Gregoria Hinton MD [facility] US PROCEDURES Final Resul t * Differential, [...] BLOOD ORDERABLES Final Re sult [facility] ([place]) 1 [facility] [place] [address] * (ABNORMAL) CBC with auto differential (05/31/2025 10:24 AM CDT) [facility] WBC 5.27 3.80 - 9.90 K/cumm Hgb [...] Final Re sult [facility] ([place]) 1 [facility] [place] [address] * (ABNORMAL) Troponin T high-sensitivity 6-hour (05/31/2025 5:45 AM CDT) [facility] Trop T hs 20(H) <=14 ng/L Comment: [...] 05/31/2025 5:55 AM CDT Josedidier Aria Pelaez PAPER INSERTER LAB BLOOD ORDERABLES Final Result Performing Organization Address [facility] de Phone Number [facility] ([place]) 1 [facility] [place] [address] * (ABNORMAL) Troponin T high-sensitivity 2-hour (05/31/2025 1:18 AM CDT) Trop T hs 18(H) <=14 ng/L Comment: Interpretive Data For further hscTnT resources including the diagnostic algorithm and an aid in interpretation, copy and paste this link: https://nrl.[employer].org/show/hsTrop Current Interpretive Data last revised 2020. Trop T hs delta -2 ng/L [facility] ([place]) Trop T hs interp Insignificant [facility] ([place]) Blood 05/31/2025 1:18 AM CDT 05/31/2025 1:24 AM CDT Letha Pelaez NP LAB BLOOD ORDERABLES Final Result Performing Organization Address [facility] Co de Phone Number [facility] ([place]) 1 [facility] [place] [address] * (ABNORMAL) Troponin T high-sensitivity series (baseline, 2hr, 4hr, 6hr) (05/30/2025 11:25 PM CDT) Trop T hs 20(H) <=14 ng/L Comment: Interpretive Data For further hscTnT resources including the diagnostic algorithm and an aid in interpretation, copy and paste this link: https://nrl.[employer].org/show/hsTrop Current Interpretive Data last revised 2020. Blood 05/30/2025 11:2 5 PM CDT 05/30/2025 11:31 PM CDT us Joseasimmaria Pelaez NP LAB BLOOD ORDERABLES Final Result [facility] ([place]) 1 [facility] [place] [address] * Differential, auto (05/30/2025 11:25 PM CDT) Neutrophil abs 3.24 1.50 - 6.50 K/cumm Imm gran abs 0.02 0.00 - 0.10 K/cumm [facility] ([place]) Lymphocyte abs 2.11 0.80 - 3.30 K/cumm [facility] ([place]) Monocyte abs 0.54 0.20 - 0.80 K/cumm [facility] ([place]) Eosinophil abs 0.03 0.00 - 0.50 K/cumm [facility] ([place]) Basophil abs 0.02 0.00 - 0.10 K/cumm [facility] ([place]) Neutrophil pct 54.4 % [facility] ([place]) Comment: Interpretive Data Percent cell count reference [...] Neha huitron Result [facility] ([place]) 1 [facility] [place] [address] * (ABNORMAL) CBC with auto differential (05/30/2025 [...] abs 0.02(H) 0.00 - 0.01 K/cumm [facility] ([place]) Blood 05/30/2025 11:2 5 PM CDT 05/30/2025 11:30 PM CDT Joceline Gonzalez MD LAB BLOOD ORDERABLES Neha l Result Performing Organization Address City/[facility]/ZIP Co de Phone Number [facility] [place]) [address] [place] [address] [place] [address] * (ABNORMAL) D-dimer, quantitative (05/30/2025 11:25 PM CDT) D-Dimer 1,169(H) <=499 ng/mL FEU [facility] ([place]) Comment: Interpretive data FDA approved the D-dimer, [...] ORDERABLES Fi nal Result Performing Organization Address City/[facility]/ZIP Co de Phone Number [facility] [place]) 1 [facility] [place] [address] * Blood gas, venous (05/30/2025 11:25 PM [...] LAB BLOOD ORDERABLES Fi nal Result [facility] ([place]) 1 [facility] [place] [address] * Blood culture Blood Blood (05/30/2025 1:56 PM CDT) Report Final Report: No growth Comment:Testing performed by : [facility], [address] [place]., [address] Blood (Blood) 05/30/2025 1:5 6 PM CDT 05/30/2025 4:12 PM CDT Narrative [facility] ([place]) - 06/04/2025 7:00 AM CDT Collection->Peripheral Received [...] performance characteristics have been verified by the [facility] Microbiology Laboratory. For questions about this culture, contact the Microbiology Laboratory at [phone]. Interpretive data was last revised on 24. Joceline Gonzalez MD LAB MICROBIOLOGY - GENERA L ORDERABLES Final Result JO[facility] ([place]) 1 [facility] [place] [address] * Blood culture Blood Blood (05/30/2025 1:56 PM CDT) Report Final Report: No growth Comment:Testing performed by : [facility], [address] [place]., [address] Blood (Blood) 05/30/2025 1:5 6 PM CDT [...] performance characteristics have been verified by the [facility] Microbiology Laboratory. For questions about this culture, contact the Microbiology Laboratory at [phone]. Interpretive data was last revised on 24. us Joceline Gonzalez MD LAB MICROBIOLOGY - GENERA L ORDERABLES Final Result JOSE ENNIS ([place]) 1 [facility] [place] [address] * TSH (05/30/2025 1:56 PM CDT) Thyroid Stimulating Hormone 1.65 0.30 - 4.20 mcIUnit/mL Blood 05/30/2025 1:56 PM CDT 05/30/2025 2:02 PM CDT us Joceline Gonzalez MD LAB BLOOD ORDERABLES Neha l Result Performing Organization Address [facility] Co de Phone Number JO[facility] ([place]) 1 [facility] [place] [address] * Ethanol (05/30/2025 1:56 PM CDT) Ethanol <10 <=10 mg/dL Comment: Interpretive Data Legal limit of intoxication > or = 80 mg/dL Levels > or = 400 mg/dL are potentially TOXIC. Current interpretive data was last revised on 2018. Blood 05/30/2025 1:56 PM CDT 05/30/2025 2:02 PM CDT us Joceline Gonzalez MD LAB BLOOD ORDERABLES Neha l Result [facility] ([place]) 1 [facility] [place] [address] * US Kidney Complete (05/30/2025 10:55 AM [...] 11:15 AM - Electronically signed by Sadie Hidalog M.D. FT: FT Report ID: [id number] Reading Location: [id number] Procedure Note Sadie Bejarano MD - 05/30/2025 [...] Sadie Hidalgo M.D. FT: FT Report ID: [id number] Reading Location: [id number] us Joceline Gonzalez MD IMG US PROCEDURES [...] for uric acid stone formation. Source: [employer] Current Interpretive Data was last revised on [...] ORDERABLES Final Result JO[facility]MON ([place]) 1 [facility] [place] [address] * Drugs of Abuse Screen, Urine without [...] AM CDT 05/30/2025 9:34 AM CDT Narrative [facility] ([place] - 05/30/2025 10:02 AM CDT Drug of Abuse screening is performed by immunoassay for medical purposes only. This is not to be used for Pain Management purposes. Joceline Gonzalez MD LAB URINE ORDERABLES Neha l Result Performing Organization Address [facility] Co de Phone Number JOSE E[facility]IS ([place]) 1 [facility] [place] [address] * (ABNORMAL) Urinalysis, microscopic only (05/30/2025 9:32 AM CDT) WBC, ur 11-20(A) 0 - 5 /HPF RBC, ur 0-2 0 - 2 /HPF [facility] ([place]) Epithelial cells, squamous, ur 1-5 0 - 5 /HPF [facility] ([place]) Bacteria, ur Trace(A) [facility] ([place]) Mucous, ur Present(A) [facility] ([place]) Hyaline casts, ur 6-10 0 - 10 /LPF [facility] ([place]) Culture Reflex Comment Reflex to urine culture will be performed. [facility] ([place]) Urine 05/30/2025 9:32 AM CDT 05/30/2025 9:34 AM CDT Joceline Gonzalez MD LAB URINE ORDERABLES Neha l Result Performing Organization Address City/[facility]/ZIP Co de Phone Number JOSE E[facility] ([place]) 1 [facility] [place] [address] * Urine culture Urine (05/30/2025 9:32 AM CDT) Report Final Report: Less than 100,000 colonies/mL (clinically insignificant growth based on current clinical standards) Comment:Testing performed by : [facility], 1 [facility] [place]., [address] Organism (CLINICALLY INSIGNIFICANT GROWTH JOSE E[facility] ([place]) Urine 05/30/2025 9:32 AM CDT 05/30/2025 12:15 PM CDT Narrative JOSE [place]) - 05/31/2025 1:03 PM CDT Urine culture reflexed based upon urinalysis results. Testing performed by [facility] Microbiology Laboratory ([phone]) Joceline Gonzalez MD LAB MICROBIOLOGY - GENERA L ORDERABLES Final Result JOSE [place]) 1 [facility] [place] [address] * CT Abdomen Pelvis W Contrast (05/30/2025 [...] Anil Goddard M.D. RB: EMILIE Report ID: [id number] Reading Location: [id number] Procedure Note Anil Goddard MD - 05/30/2025 [...] Anil Goddard M.D. RB: EMILIE Report ID: [id number] Reading Location: [place] [address] Joceline Gonzalez MD IMG CT PROCEDURES Final [...] Davonte Flores D.O. PS: PS Report ID: [id number] Reading Location: [id number] Procedure Note Davonte Flores, DO - 05/30/2025 [...] Davonte Flores D.O. PS: PS Report ID: [id number] Reading Location: [id number] Joceline Gonzalez MD IMG CT PROCEDURES Final R esult * Sepsis Lactate w/ Reflex (05/30/2025 8:28 AM CDT) Sepsis Lactate 1.6 0.7 - 2.0 mmol/L Blood 05/30/2025 8:28 AM CDT 05/30/2025 8:37 AM CDT Joceline Gonzalez MD LAB BLOOD ORDERABLES Neha l Result Performing Organization Address City/State/[facility] Co de Phone Number [facility] [place] 1 [facility] Department of Laboratories [place], [place] [address] * (ABNORMAL) eGFR (05/30/2025 8:28 AM CDT) [...] MD LAB BLOOD ORDERABLES Neha elana Result [facility] ([place]) 1 [facility] [place] [address] * Differential, auto (05/30/2025 8:28 AM CDT) Neutrophil abs 4.85 1.50 - 6.50 K/cumm Imm gran abs 0.01 0.00 - 0.10 K/cumm [facility] ([place]) Lymphocyte abs 1.61 0.80 - 3.30 K/cumm [facility] ([place]) Monocyte abs 0.48 0.20 - 0.80 K/cumm [facility] ([place]) Eosinophil abs 0.00 0.00 - 0.50 K/cumm [facility] ([place]) Basophil abs 0.02 0.00 - 0.10 K/cumm [facility] ([place]) Neutrophil pct 69.6 % [facility] ([place]) Comment: Interpretive Data Percent cell count reference ranges are not reported, since discordance with absolute values may lead to misinterpretation of CBC data. Current Interpretive Data was last revised on 2017. Imm gran pct 0.1 % [facility] ([place]) Comment: Interpretive Data Percent cell count reference ranges are not reported, since discordance with absolute values may lead to misinterpretation of CBC data. Current Interpretive Data was last revised on 2017. Lymphocyte pct 23.1 % [facility] ([place]) Comment: Interpretive Data Percent cell count reference ranges are not reported, since discordance with absolute values may lead to misinterpretation of CBC data. Current Interpretive Data was last revised on 2017. Monocyte pct 6.9 % [facility] ([place]) Comment: Interpretive Data Percent cell count reference [...] Neha huitron Result [facility] ([place]) 1 [facility] [place] [address] * (ABNORMAL) CBC with auto differential (05/30/2025 [...] 69.4(H) 35.7 - 48.1 fL [facility] ([place]) NRBC abs 0.02(H) 0.00 - 0.01 K/cumm [facility] ([place]) Blood 05/30/2025 8:28 AM CDT 05/30/2025 8:37 AM CDT us Joceline Gonzalez MD LAB BLOOD ORDERABLES Neha l Result [facility] ([place]) 1 [facility] [place] [address] * (ABNORMAL) Comprehensive metabolic panel (05/30/2025 8:28 [...] Neha l Result [facility] ([place]) 1 [facility] [place] [address] from Last 3 Months Insurance HEALTHCARE [facility] Advance Directives For more information, please contact: [phone] * Full Code (Latest Code Status on File) Date Activated Date Inactivated Comments 05/30/2025 6:33 PM 05/31/2025 7:44 PM Care Teams Pipe Line Repairer Relationship Specialty Start Date End Date Miscellaneous, Not In File PCP - General 04/19/21
--- OUTSIDE RECORDS SUMMARY | 2025-08-01 11:54 | XMS_ITS | Encounter Summary ---
Author Organization [facility] Address [address] [place] [address] Care Team Providers Care Box Blank Machine Operator Helper Name Role Phone Shilo Soares MD Primary Care Provider [phone] Encounter Details Date Type Department Care Team ([facility] Contact Info) Description 07/05/2025 Results Follow-Up [facility] On[facility] [address] [place] [address] Edilia Pettit, CHELY [address] [facility] [address] [place] [address] CANCER ANTIGEN 125 Social History [...] Upcoming Encounters Date Type Department Care Team ([facility] Contact Info) Description 09/04/2025 1:30 PM SWITCHBOARD WIRE WORKER HELPER Office Visit [facility]necologic Oncology [facility] [address] [place] [address] Aviva Humphries MD [address] [place] [address] documented as of this encounter Visit Diagnoses Not on filedocumented in this encounter Care Teams Box Blank Machine Operator Helper Relationship Specialty Start Date End Date Shilo Soares MD [address] [place] [id number] PCP - General Internal Medicine 04/24/23 documented as of this encounter
--- OUTSIDE RECORDS SUMMARY | 2025-08-01 11:54 | XMS_ITS | Clinical Summary ---
Author Organization [facility] Marlon monson [facility] Address [address] [place] [address] Care Team Providers Care Presetter Operator Name Role Phone Shilo Soares MD Primary Care Provider [phone] Allergies Active Allergy Reactions Criticality Noted Date [...] Department Care Team Description 07/10/2025 10:16 AM COMMERCIAL DRONE SOFTWARE DEVELOPER - 07/10/2025 11:59 PM [facility] Hospital Encounter [facility] CT Scan [address] [place] [address] Aviva Humphries MD Discharge Disposition: Home or Self Care 07/10/2025 Results Follow-Up [facility] [address] [place] [address] Aviva Humphries MD CTA CHEST + ABD/PEL W CONTRAST 07/05/2025 Results Follow-Up [facility] [address] [address] [place] [address] Edilia Pettit NP CANCER ANTIGEN 125 07/04/2025 1:00 PM COMMERCIAL DRONE SOFTWARE DEVELOPER Office Visit [facility] [address] [facility] [address] [place] [address] Edilia Pettit NP Maintenance antineoplastic chemotherapy (Primary Dx); Malignant neoplasm of ovary, unspecified laterality (CMS/HCC); Shortness of breath 07/04/2025 10:45 AM COMMERCIAL DRONE SOFTWARE DEVELOPER - 07/04/2025 11:59 PM COMMERCIAL DRONE SOFTWARE DEVELOPER Hospital Encounter [facility] [address] [place] [address] Aviva Humphrise MD Discharge Disposition: Home or Self Care 07/04/2025 Orders Only [facility] [id number] [place] [address] Edilia Pettit NP Malignant neoplasm of ovary, unspecified laterality (CMS/HCC) (Primary Dx) 07/03/2025 Orders Only [facility] [address] [facility] [address] [place] [address] Aviva Humphries MD Maintenance antineoplastic chemotherapy 06/13/2025 External Device Data STL ABSTRACTION Provider, Abstract 06/13/2025 Results Follow-Up [facility] [address] [facility] [address] [place] [address] Edilia Pettit NP CBC WITH DIFFERENTIAL 05/23/2025 External Device Data STL ABSTRACTION Provider, Abstract 05/10/2025 1:30 PM CDT Office Visit [facility] [address] [facility] [address] [place] [address] Aviva Humphries MD Maintenance antineoplastic chemotherapy (Primary Dx); Malignant neoplasm of ovary, unspecified laterality (CMS/HCC) 05/10/2025 8:45 AM CDT - 05/10/2025 11:59 PM CDT Hospital Encounter [facility] 2nd Fl [address] [place] [address] Aviva Humphries MD Discharge Disposition: Home or Self Care 05/08/2025 Orders Only [facility] [address] [place] [id number] Aviva Humphries MD Maintenance antineoplastic chemotherapy from Last 3 Months [...] Comments Blood Pressure 122/78 07/04/2025 12:52 PM COMMERCIAL DRONE SOFTWARE DEVELOPER Pulse 73 07/04/2025 12:52 PM COMMERCIAL DRONE SOFTWARE DEVELOPER Temperature 36.6 C (97.9 F) 07/04/2025 12:52 PM COMMERCIAL DRONE SOFTWARE DEVELOPER Respiratory Rate 18 02/22/2025 12:50 PM CDT Oxygen Saturation 95% 07/04/2025 12:52 PM COMMERCIAL DRONE SOFTWARE DEVELOPER Inhaled Oxygen Concentration - - Weight 50.8 kg (112 lb) 07/04/2025 12:52 PM COMMERCIAL DRONE SOFTWARE DEVELOPER Height 167.6 cm (5' 6) 07/04/2025 12:52 PM COMMERCIAL DRONE SOFTWARE DEVELOPER Body Mass Index 18.08 07/04/2025 12:52 PM COMMERCIAL DRONE SOFTWARE DEVELOPER Plan of Treatment Upcoming Encounters Date Type Department Care Team (Late st Contact Info) Description 09/04/2025 1:30 PM COMMERCIAL DRONE SOFTWARE DEVELOPER Office Visit [facility]nec[facility] [address] [place] [address] Aviva Humphries MD [address] [place] [address] Health Maintenance Due Date Last [...] (#1) 2025 Medical Devices Implanted Type Area Learning Program Manager Device Identifier Shelf Expiration Date Model / Serial / Lot Hemostat Lanette Ah Powder 3gm [id number] - [id number] Implanted:Qt y: 1 on 08/06/2023 by Aviva Humphries MD at [facility] Hemostatic N/A: Abdomen BARD DAVOL [id number] 12/06/2027 [id number] / / [id number] Hemostat Lanette Ah Powder 3gm [id number] - [id number] Implanted:Qt y: 1 on 08/06/2023 by Aviva Humphries MD at [facility] Hemostatic N/A: Abdomen BARD DAVOL [id number] 12/06/2027 [id number] / / [id number] Port- 023 Implanted:Qt y: 1 on 05/25/2023 by Casie Rajput MD Right: Chest Wall 01/07/2025 [id number] / / [id number] Description:BARD 8FR SLIM PO [place] IMPLANTED INTO RIGHT CHEST WALL ON 05/25/[address] RAJPUT Procedures Procedure Name Priority Date/Time Associated Diagnosis Comments CTA CHEST + ABD/PEL W CONTRAST Routine 07/10/2025 11:00 AM COMMERCIAL DRONE SOFTWARE DEVELOPER Malignant neoplasm of ovary, unspecified laterality (CMS/HCC) CBC WITH DIFFERENTIAL Routine 07/04/2025 11:54 AM COMMERCIAL DRONE SOFTWARE DEVELOPER Maintenance antineoplastic chemotherapy COMPREHENSIVE METABOLIC PANEL Routine 07/04/2025 11:54 AM COMMERCIAL DRONE SOFTWARE DEVELOPER Malignant neoplasm of ovary, unspecified laterality (CMS/HCC) CANCER ANTIGEN 125 Stat 07/04/2025 11 :54 AM COMMERCIAL DRONE SOFTWARE DEVELOPER Malignant neoplasm of ovary, unspecified laterality (CMS/HCC) [...] + ABD/PEL W CONTRAST (07/10/2025 11:00 AM COMMERCIAL DRONE SOFTWARE DEVELOPER) Anatomical Region Laterality Modality Chest, Abdomen, Pelvis Computed Tomography 07/10/2025 12:1 3 PM COMMERCIAL DRONE SOFTWARE DEVELOPER Impressions 07/10/2025 12:56 PM COMMERCIAL DRONE SOFTWARE DEVELOPER IMPRESSION: 1. No evidence of pulmonary embolism. [...] No evidence of metastatic disease. DICTATION LOCATION: [address] 07/10/2025 12:56 PM COMMERCIAL DRONE SOFTWARE DEVELOPER CTA CHEST + ABD/PEL W CONTRAST DATE: [...] No evidence of metastatic disease. DICTATION LOCATION: [address] [place] Aviva Humphries MD CT ORDERABLES Final Result * (ABNORMAL) CBC WITH DIFFERENTIAL (07/04/2025 11:54 AM COMMERCIAL DRONE SOFTWARE DEVELOPER) Only the most recent of3 resultswithin the time period is included. WBC 7.5 3.8 - 10.8 Thousand/ uL [facility] RBC 2.93(L) 3.80 - 5.10 Million/u L [facility] HEMOGLOBIN 11.5(L) 11.7 - 15.5 g/dL [facility] HEMATOCRIT 33.8(L) 35.9 - 46.0 % [facility] [...] ABSOLUTE 0 0 - 200 cells/uL [facility] NEUTROPHIL 63 % [facility] LYMPHOCYTES 32 % [facility] MONOCYTE 5 % [facility] EOSINOPHILS 0 % [facility] BASOPHILS 0 % [facility] COMMENT HEMATOLOGY [facility] Comment: The smear has been manually reviewed and the manual differential has been reported. Schistocytes 1 + Review of the peripheral smear reveals adequate numbers of platelets. Test Performed at: [facility] [address] [place] [address] Radha Perez Blood 07/04/2025 11:5 4 AM COMMERCIAL DRONE SOFTWARE DEVELOPER 07/04/2025 12:41 PM COMMERCIAL DRONE SOFTWARE DEVELOPER Edilia Pettit NP HEMATOLOGY ORDERABLES Final Resu Performing Organization Address City/[facility]/ZIP [facility] Phone Number [facility] [phone] [place] [facility] [place] [address] [place] [address] * CANCER ANTIGEN 125 (07/04/2025 11:54 AM COMMERCIAL DRONE SOFTWARE DEVELOPER) Only the most recent of3 resultswithin the time period is included. CA 125 6 <35 U/mL [facility] Comment: This test was performed using the Siemens Chemiluminescent method. Values obtained from different assay methods cannot be used interchangeably. CA 125 levels, regardless of value, should not be interpreted as absolute evidence of the presence or absence of disease. Test Performed at: [facility] [id number] [place] [address] [place] [address] SwatiSierra Perez MD Blood 07/04/2025 11:5 4 AM COMMERCIAL DRONE SOFTWARE DEVELOPER 07/04/2025 12:38 PM COMMERCIAL DRONE SOFTWARE DEVELOPER Edilia Pettit NP CHEMISTRY ORDERABLES Final Resul t Performing Organization Address City/State/ZIP [facility] Phone Number [facility] [phone] [facility] [address] [place] [address] * (ABNORMAL) COMPREHENSIVE METABOLIC PANEL (07/04/2025 11:54 AM COMMERCIAL DRONE SOFTWARE DEVELOPER) GLUCOSE 117(H) 65 - 99 mg/dL [facility] Comment: Fasting reference interval For someone without known diabetes, a glucose value between 100 and 125 mg/dL is consistent with prediabetes and should be confirmed with a follow-up test. BUN 11 7 - 25 mg/dL [facility] CREATININE 0.92 0.50 - 1.05 mg/dL [facility] GFR 69 > OR = 60 mL/min/1. 73m2 [facility] BUN/CREAT RATIO SEE NOTE: (calc) [facility] Comment: Not Reported: BUN and Creatinine are within reference range. SODIUM 139 135 - 146 mmol/L [facility] POTASSIUM 3.6 3.5 - 5.3 mmol/L [facility] CHLORIDE 100 98 - 110 mmol/L [facility] CO2 23 20 - 32 mmol/L [facility] CALCIUM 8.8 8.6 - 10.4 mg/dL [facility] TOTAL PROTEIN 6.8 6.1 - 8.1 g/dL [facility] ALBUMIN 4.4 3.6 - 5.1 g/dL [facility] GLOBULIN 2.4 1.9 - 3.7 g/dL (calc) [facility] ALBUMIN/GLOBULIN RATIO 1.8 1.0 - 2.5 (calc) [facility] BILIRUBIN TOTAL 0.7 0.2 - 1.2 mg/dL [facility] ALKALINE PHOSPHATASE 76 37 - 153 U/L [facility] AST 17 10 - 35 U/L [facility] ALT 21 6 - 29 U/L [facility] Comment: Test Performed at: [facility] [address] [place] [address] Radha Perez Blood 07/04/2025 11:5 4 AM COMMERCIAL DRONE SOFTWARE DEVELOPER 07/04/2025 12:41 PM COMMERCIAL DRONE SOFTWARE DEVELOPER us Edilia Pettit NP CHEMISTRY ORDERABLES Final Resul t [facility] [phone] [facility] [address] [place] [address] * MANUAL DIFFERENTIAL (05/10/2025 9:07 AM CDT) PLATELET EST. Consistent w Count 05/10/2025 9:45 AM CDT [facility] - . [facility] ANISOCYTOSIS 1+ /hpf 05/10/2025 9:45 AM CDT [facility] - . [facility] POIKILOCYTES 1+ /hpf 05/10/2025 9:45 AM CDT [facility] - . [facility] MACROCYTES 2+ /hpf 05/10/2025 9:45 AM CDT [facility] - [facility] Blood Collection / Unknown 05/10/2025 9:07 AM CDT 05/10/2025 9:15 AM CDT Edilia Pettit NP HEMATOLOGY ORDERABLES COM Final Result [facility] CLIA# [id number] [address] [facility] [place] [address] from Last 3 Months Insurance AETYASSSU CHOICE POS II [email or web address] POS II RX [employer] (INTERNAL) [facility] Internal Plans RX [facility] [employer] Advance Directives For more information, please contact: [phone] * Full Code (Latest Code Status on File) Date Activated Date Inactivated Comments 09/12/2024 5:54 PM 09/13/2024 8:26 PM * Full Code Date Activated Date Inactivated Comments 08/07/2023 12:31 AM 08/12/2023 6:27 PM * Full Code Date Activated Date Inactivated Comments 08/06/2023 12:44 PM 08/07/2023 12:31 AM Care Teams Presetter Operator Relationship Specialty Start Date End Date Shilo Soares MD [address] [place] [address] PCP - General Internal Medicine 04/24/23
--- OUTSIDE RECORDS SUMMARY | 2025-08-01 11:54 | XMS_ITS | Encounter Summary ---
Author Organization [facility] Address [address] [place] [address] Care Team Providers Care Management Consulting Name Role Phone Shilo Soares MD Primary Care Provider [phone] Encounter Details Date Type Department Care Team (Latest Contact Info) Description 06/13/2025 Results Follow-Up [facility] Gynecologic Oncology Hall [address] [address] [place] [address] Edilia Pettit, CHELY [address] [facility] [address] [place] [address] CBC WITH DIFFERENTIAL Social History [...] st Contact Info) Description 09/04/2025 1:30 PM IMMIGRATION OFFICER Office Visit [facility] Gynecologic Oncology Hall [address] [place] [address] Aviva Humphries MD [address] [place] [address] documented as of this encounter Visit Diagnoses Not on filedocumented in this encounter Care Teams Management Consulting Relationship Specialty Start Date End Date Shilo Soares MD [address] [facility] [address] [place] [phone] PCP - General Internal Medicine 04/24/23 documented as of this encounter
== END 2025-08-01 11:36 | disposition home or self-care (01) ==
LOC: ANHIMG 11:36
PROVIDERS: PCP Emergency Medicine; Visit Provider Emergency Medicine
DX: R91.1 Solitary pulmonary nodule (principal)
CPT/HCPCS: 71046